=== PATIENT | female | born 1995 | race Caucasian/White ===

== ENCOUNTER 2023-07-31 13:07 | Outpatient (OUT) | payer OTHER, SELFPAY ==
--- NOTE | 2023-07-31 13:17 | XR_ITS ---
The [address] [address] Patient Name: HUY KOVACS MRN: [id number] date: 1995 Sex: F Assigned Patient Location: [facility] Current Patient Location: RAD Accession/Order Number: [id number] Exam Date: 07/31/2023 13:25 Report Date: 07/31/2023 13:55 At the request of: EARLINE CHEN Procedure: XR ribs LT min 3V w CXR1V EXAMINATION: XR ribs LT min 3V w CXR1V HISTORY: Left Rib Pain COMPARISON: No relevant comparison available. FINDINGS: LUNGS: No significant pulmonary parenchymal abnormalities. PLEURA: No pneumothorax, effusion, or pleural thickening. MEDIASTINUM: No visible mass or adenopathy. CARDIAC: No cardiomegaly or cardiac silhouette abnormality. RIBS: Hardware along the left posterior and lateral 10th rib with what appears to be segmental resection. No acute rib fracture. OTHER: Thoracolumbar decompression and transpedicular fusion with interbody strut at L1 XR/XR ribs LT min 3V w CXR1V IMPRESSION: Clear lungs No acute rib fracture Electronically authenticated by: STEVEN SOARES Date: 07/31/2023 13:55
== END 2023-07-31 13:08 | disposition home or self-care (01) ==
LOC: RAD 13:11
PROVIDERS: PCP Nurse Practitioner; Visit Provider Nurse Practitioner
DX: R07.81 Pleurodynia (principal)
CPT/HCPCS: 71101

== ENCOUNTER 2023-12-04 10:00 | Outpatient (OUT) | payer OTHER, SELFPAY | END 2023-12-04 10:01 | disposition home or self-care (01) | LOC: SLEEP 12-05 10:25 | PROVIDERS: PCP Nurse Practitioner; Visit Provider Nurse Practitioner | DX: G47.33 Obstructive sleep apnea (adult) (pediatric) (principal) | CPT/HCPCS: 95806 ==

== ENCOUNTER 2023-12-26 19:58 | Outpatient (OUT) | payer OTHER, SELFPAY ==
--- OUTSIDE RECORDS SUMMARY | 2023-12-26 20:03 | XMS_ITS | CCD ---
Author Organization [facility] Care Team Providers Care Olive Brine Tester Name Role Phone [place], Timoteo Unavailable Unavailable Damian, Timoteo Unavailable Unavailable [place], Timoteo Unavailable Unavailable LAUTZENHEISER, WENDY Unavailable Unavailabl e LAUTZENHEISER, WENDY Unavailable Unavailabl e STEVEN HUNT Unavailable Unavailable LAUTZENHEISER, WENDY Unavailable Unavailabl e LAUTZENHEISER, WENDY Unavailable Unavailabl e CALEB, DONNELL M Unavailable Unavailable CALEB, DONNELL M Unavailable Unavailable CALEB, DONNELL M Unavailable Unavailable LAUTZENHEISER, WENDY Unavailable Unavailabl e SELVON, [facility] Unavailable Unavailable SELVON, [facility] Unavailable Unavailable SELVON, [facility] Unavailable Unavailable LAUTZENHEISER, WENDY Unavailable Unavailabl e LAUTZENHEISER, WENDY Unavailable Unavailabl e NELSON ROY Unavailable Unavailable LAUTZENHEISER, WENDY Unavailable Unavailabl e LAUTZENHEISER, WENDY Unavailable Unavailabl e LAUTZENHEISER, WENDY Unavailable Unavailabl e RAHMON, ROMAN Unavailable Unavailable RAHMON, ROMAN Unavailable Unavailable LAUTZENHEISER, WENDY Unavailable Unavailabl e [place], Timoteo Unavailable Unavailable Damian, Timoteo Unavailable Unavailable LAUTZENHEISER, WENDY Unavailable Unavailabl e [place], Timoteo Unavailable Unavailable CHILCOTE, DAR L Unavailable Unavailable CHILCOTE, DAR L Unavailable Unavailable LAUTZENHEISER, WENDY Unavailable Unavailabl e Lautzenheiser, Wendy E Unavailable [phone] Jocelyn Bowen CNM Unavailable Unavailable None Unavailable Unavailable Rao, Audrey J Unavailable Unavailable Lautzenheiser, Wendy Unavailable Unavailabl e Rao, Audrey J Unavailable Unavailable Lautzenheiser, Wendy Unavailable Unavailabl e Rao, Audrey J Unavailable Unavailable Lautzenheiser, Wendy Unavailable Unavailabl e Rao, Audrey J Unavailable Unavailable None Unavailable Unavailable Rao, Audrey J Unavailable Unavailable Gabriele Wendy Unavailable Unavailabl e Rao, Audrey J Unavailable Unavailable None Unavailable Unavailable Mercedes, Susannah Barnes Unavailable Unavailable Wendy Suazo Unavailable Unavailabl e Rao, Audrey J Unavailable Unavailable Gabriele Wendy Unavailable Unavailabl e Rao, Audrey J Unavailable Unavailable Gabriele Wnedy Unavailable Unavailabl e Rao, Audrey J Unavailable Unavailable Potmagyst CNM, Lenora Jimenez Unavailable Unavailabl e None Unavailable Unavailable Bowen CNM, Jocelyn D Unavailable Unavailable None Unavailable Unavailable Wendy Suazo Primary Care Provider BASHIR BENITEZ Attending Unavailabl e WENDY SUAZO Primary Care Unavailabl e BASHIR BENITEZ Attending Unavailabl e WENDY SUAZO Primary Care Unavailabl e BASHIR BENITEZ Attending Unavailabl e MATHEW OTT F Referring Unavailable WENDY SUAZO Primary Care Unavailabl e Wendy Suazo Primary Care Provider Yaneli DENG Primary Care Physician Wendy Suazo MD Primary Care Provider TETE GUSTAFSON Attending Unavailable TETE GUSTAFSON Admitting Unavailable WENDY SUAZO Primary Care Unavaila ble SYSTEM, PROVIDER NOT IN Referring Unavaila ble WENDY SUAZO Primary Care Unavaila ble LEVI VERA Attending Unavailable Unavailable Primary Care Provider Unavailabl e Unavailable Primary Care Provider Unavailabl e ANDREW ., DR HERNANDEZ Attending Unavailable REQUEST, DR PACHECO LISTED Primary Care Unavaila ble ANDREW ., DR HERNANDEZ Admitting Unavailable REQUEST, NONE LISTED Primary Care Unavaila ble MARY CARMEN HORTON Admitting Unavailable MARY CARMEN HORTON Consulting Unavailable MAR YCARMEN HORTON Attending Unavailable ANDREW ., DR HERNANDEZ Consulting Unavailable ANDREW ., DR HERNANDEZ Attending Unavailable YANELI DENG Primary Care Unavailable ANDREW ., DR HERNANDEZ Admitting Unavailable RiyaPrabhu Unavailable [facility], Yaneli Primary Care Provider Unava ilable HARTMANN, YANELI Primary Care Unavailable AHAMMAD, GETACHEW Referring Unavailable HARTMANN, YANELI Primary Care Unavailable AHAMMAD, GETACHEW Referring Unavailable HARTMANN, YANELI Primary Care Unavailable AHAMMAD, GETACHEW Referring Unavailable HARTMANN, YANELI Primary Care Unavailable AHAMMAD, GETACHEW Referring Unavailable HARTMANN, YANELI Primary Care Unavailable ALTAF DANIELS Consulting Unavailable AHAMMAD, GETACHEW Admitting Unavailable AHAMMAD, GETACHEW Attending Unavailable YEHUDA OROURKE Consulting Unavailable AFANEH, FATOU MEIER Consulting Unavail able HARTMANN, YANELI Primary Care Unavailable AHAMMAD, GETACHEW Referring Unavailable Gustavo DIGITAL ANALYTICS MANAGER.WELT BUTTER HAND, Earline Moran Unavailable [phone] ARPAN CUELLO Referring Unavailable KHUSHBOO, ARPAN Referring Unavailable KHUSHBOO, ARPAN Referring Unavailable Donny Hernandez Attending Unavailab le Donny Hernandez Admitting Unavailab le NO FAMILY, PHYSICIAN Primary Care Unavailable KHUSHBOO, ARPAN Referring Unavailable TANGELA PAULA Attending Unavailable KHUSHBOO, ARPAN Attending Unavailable GUSTAVOEARLINE L Referring Unavailable HARTMANN, YANELI Primary Care Unavailable JACKS, DEB W Referring Unavailable HARTMANN, YANELI Primary Care Unavailable JACKS, DEB W Referring Unavailable HARTMANN, YANELI Primary Care Unavailable JACKS, DEB W Referring Unavailable HARTMANN, YANELI Primary Care Unavailable JACKS, DEB W Referring Unavailable HARTMANN, YANELI Primary Care Unavailable JACKS, DEB W Referring Unavailable HARTMANN, YANELI Primary Care Unavailable JACKS, DEB W Referring Unavailable HARTMANN, YANELI Primary Care Unavailable JACKS, DEB W Referring Unavailable HARTMANN, YANELI Primary Care Unavailable JACKS, DEB W Referring Unavailable HARTMANN, YANELI Primary Care Unavailable JACKS, DEB W Referring Unavailable HARTMANN, YANELI Primary Care Unavailable JACKS, DEB W Referring Unavailable HARTMANN, YANELI Primary Care Unavailable JACKS, DEB W Referring Unavailable HARTMANN, YANELI Primary Care Unavailable JACKS, DEB W Referring Unavailable HARTMANN, YANELI Primary Care Unavailable JACKS, DEB W Referring Unavailable HARTMANN, YANELI Primary Care Unavailable JACKS, DEB W Referring Unavailable HARTMANN, YANELI Primary Care Unavailable JACKS, DEB W Referring Unavailable HARTMANN, [facility] Primary Care Unavailable JACKS, DEB W Referring Unavailable HARTMANN, [facility] Primary Care Unavailable JACKS, DEB W Referring Unavailable HARTMANN, [facility] Primary Care Unavailable JACKS, DEB W Referring Unavailable HARTMANN, [facility] Primary Care Unavailable JACKS, DEB W Referring Unavailable HARTMANN, [facility] Primary Care Unavailable JACKS, DEB W Referring Unavailable HARTMANN, [facility] Primary Care Unavailable JACKS, DEB W Referring Unavailable HARTMANN, [facility] Primary Care Unavailable JACKS, DEB W Referring Unavailable HARTMANN, [facility] Primary Care Unavailable JACKS, DEB W Referring Unavailable HARTMANN, [facility] Primary Care Unavailable JACKS, DEB W Referring Unavailable HARTMANN, [facility] Primary Care Unavailable JACKS, DEB W Referring Unavailable HARTMANN, [facility] Primary Care Unavailable JACKS, DEB W Referring Unavailable HARTMANN, [facility] Primary Care Unavailable JACKS, DEB W Referring Unavailable HARTMANN, [facility] Primary Care Unavailable JACKS, DEB W Referring Unavailable HARTMANN, [facility] Primary Care Unavailable JACKS, DEB W Referring Unavailable HARTMANN, [facility] Primary Care Unavailable JACKS, DEB W Referring Unavailable HARTMANN, [facility] Primary Care Unavailable JACKS, DEB W Referring Unavailable Gustavo, BLOOD BANK ATTENDANT Earline L Attending Unavailable Gustavo, BLOOD BANK ATTENDANT Earline L Attending Unavailable Gustavo, BLOOD BANK ATTENDANT Earline L Attending Unavailable Gustavo, BLOOD BANK ATTENDANT Earline L Attending Unavailable Gustavo, BLOOD BANK ATTENDANT Earline L Attending Unavailable Gustavo, BLOOD BANK ATTENDANT Earline L Attending Unavailable Gustavo, BLOOD BANK ATTENDANT Earline L Attending Unavailable Gustavo, BLOOD BANK ATTENDANT Earline L Attending Unavailable Gustavo, BLOOD BANK ATTENDANT Earline L Attending Unavailable Gustavo, BLOOD BANK ATTENDANT Earline L Attending Unavailable Gustavo, BLOOD BANK ATTENDANT Earline L Attending Unavailable Allergies Allergy Classification Reported Allergen(s) Allergy Type Date of Onset Reaction(s) Facility Adhesive Tape (2 sources) Silicone adhesive tape Substance Allergy 05-06-20 23 Itching, Rash [facility] Antihistamines (2 sources) hydrOXYzine Drug Allergy 12-15-19 18 Rash [facility] DULoxetine (4 sources) DULoxetine Drug Allergy 07-21-19 23 Other (See Comments) [facility] (16 sources) hydrOXYzine; Translations: [hydroxyzine] Drug Allergy 12-15-19 18 Rash [facility] Work Phone: (9 sources) propofol; Translations: [propofol] Drug Allergy 12-20-19 18 Anaphylaxis [facility] Work Phone: (1 source) Anesthetics - [place] Type; Translations: [Anesthetics - [place] Type] Propensity to adverse reactions (disorder) 05-31-20 18 [facility] Repository (1 source) Anesthetics - [place] Type- Parabens; Translations: [Anesthetics - [place] Type- Parabens] Propensity to adverse reactions (disorder) 05-31-20 18 [facility] Repository (6 sources) Anesthetics, Amide; Translations: [Anesthetics, Amide] Propensity to adverse reactions (disorder) 04-09-20 18 [facility] Repository (6 sources) Anesthetics, [place]; Translations: [Anesthetics, [place]] Propensity to adverse reactions (disorder) 04-09-20 18 [facility] Repository (6 sources) Anesthetics, Halogenated; Translations: [Anesthetics, Halogenated] Propensity to adverse reactions (disorder) 04-09-20 18 [facility] Repository (5 sources) Hypochlorite Drug Allergy 05-04-20 18 Hives [facility] (19 sources) Hydroxyquinolines Propensity to adverse reactions to drug 08-23-19 19 Other (See Comments) [facility] (2 sources) Acetaminophen Drug Allergy 08-23-19 19 [place] Ibuprofen Drug Allergy 08-23-19 19 [place] ([place] Other Propensity to adverse reactions 08-23-19 19 [place] ([place] sources) DULoxetine Drug Allergy 07-21-19 23 Other (See Comments) [facility] (8 sources) Silicone adhesive tape Propensity to adverse reactions to drug 05-06-20 23 Itching, Rash [facility] Dexetra (8 sources) DULoxetine; Translations: [DULOXETINE] Drug Allergy 09-07-19 24 Other: See Comments [facility] Dexetra (1 source) DULoxetine; Translations: [Cymbalta] Drug Allergy [facility] Repository (1 source) Hypochlorite; Translations: [sodium hypochlorite topical] Drug Allergy 05-03-20 [facility] Repository (1 source) No Known Medication Allergies; Translations: [No Known Medication Allergies] Propensity to adverse reactions (disorder) [facility] Repository NEGATED: Highlighted row has been ruled out! (11 sources) Other Propensity to adverse reactions 08-23-19 19 [facility] [employer] Phone: Medications Current Medications Medication Drug Class(es) Dates Sig (Normalized) Sig (Original) acetaminophen 500 mg oral tablet (16 sources) Start: 07-01-2022 acetaminophen (TYLENOL) tablet 1,000 mg Start: 10-26-2019 acetaminophen (TYLENOL) tablet 650 mg Start: 10-26-2019 End: 07-05-2022 take 2 tablets by mouth every six hours as needed for pain acetaminophen (TYLENOL) 325 MG tablet Take 2 tablets by mouth every 6 hours as needed for Pain 40 tablet 0 10/26/2019 07/05/2022 Discontinued (Stop Taking at Discharge) Baclofen (16 sources) gamma-Aminobutyric Acid-ergic Agonist Start: 11-17-2023 End: 08-13-2024 take 1 tablet by mouth three times daily baclofen 15 mg tablet Take 1 tablet by mouth three times a day. 270 tablet 0 11/17/2023 08/13/2024 Active Start: 10-01-2022 End: 11-17-2023 baclofen (LIORESAL) 20 MG ta blet 1 tab TID 0 10/01/2022 Active Start: 07-04-2022 End: 08-04-2022 take 1 tablet by mouth three times daily baclofen (LIORESAL) 10 MG tablet Take 1 tablet by mouth 3 times daily 90 tablet 0 07/05/2022 08/04/2022 Active benzonatate 100 mg oral capsule (7 sources) Non-narcotic Antitussive Start: 07-16-2018 take 1 capsule by mouth three times daily as needed benzonatate (TESSALON PERLES) 100 MG Cap capsule Take 1 capsule by mouth 3 times daily as needed. 20 capsule 0 07/16/2018 Active bisacodyl 10 mg rectal suppository (2 sources) Stimulant Laxative Start: 06-27-2022 End: 08-05-2022 bisacodyl (DULCOLAX) [address] 1 suppository rectally daily 30 suppository 0 07/06/2022 08/05/2022 Active busPIRone hydrochloride 5 mg oral tablet (20 sources) Start: 10-01-2022 take 3 tablets by mouth three times daily busPIRone (BUSPAR) 5 MG tablet Take 3 tablets by mouth 3 times daily 3 times a day 15 mg 0 10/01/2022 Active Start: 10-01-2022 busPIRone (BUS PAR) 5 MG tablet take 2 tablets by mo uth twice daily busPIRone (BUSPAR) 15 mg tablet Take 30 mg by mouth two times a day. 0 Active End: 10-26-2019 take 1 tablet by mouth twice daily busPIRone (BUSPAR) 7.5 MG tablet Take 7.5 mg by mouth 2 times daily 0 10/26/2019 Discontinued (Alternate therapy) End: 06-10-2019 take 7.5 mg by mouth two times weekly BusPIRone HCl (BUSPAR PO) Take 7.5 mg by mouth twice a week. 0 06/10/2019 Discontinued diclofenac sodium 0.01 mg/mg topical gel (4 sources) Nonsteroidal Anti-inflammatory Drug Start: 12-30-2022 diclofenac sodium (VOLTAREN) 1 % GEL docusate sodium 50 mg / sennosides, correction 8.6 mg oral tablet (6 sources) Start: 07-06-2022 take 2 tablets by mouth once daily sennosides-docus ate sodium (SENOKOT-S) 8.6-50 MG tablet Take 2 tablets by mouth daily 60 tablet 0 07/06/2022 Active Start: 06-27-2022 sennosides-doc usate sodium (SENOKOT-S) 8.6-50 MG tablet 2 tablet 0.3 ml enoxaparin sodium 100 mg/ml prefilled syringe (2 sources) Low Molecular Weight Heparin Start: 07-05-2022 End: 08-04-2022 enoxaparin Sodium (LOVENOX) 30 MG/0.3ML injection Inject 0.3 mLs into the skin 2 times daily 18 mL 0 07/05/2022 08/04/2022 Active Start: 06-27-2022 enoxaparin Sod ium (LOVENOX) injection 30 mg escitalopram 20 mg oral tablet (6 sources) Serotonin Reuptake Inhibitor Start: 10-01-2022 escitalopram (LEXAPR O) 20 MG tablet Start: 06-26-2022 End: 06-27-2022 take 1 tablet by mouth once daily escitalopram (LEXAPRO) 10 MG tablet Take 1 tablet by mouth daily 30 tablet 0 07/06/2022 Active Start: 02-03-2020 take 1 mg by mouth once daily escitalopram 10 mg Tab mg tab(s), Oral, Daily, Refills(s) 0 Start Date: 02/03/20 Status: Ordered etonogestrel 68 mg drug implant (7 sources) Progestin Etonogestrel (NEXPLANON) 68 MG SC implant 68 mg by Implant route once. 0 Active gabapentin 300 mg oral capsule (9 sources) Anti-epileptic Agent Start: End: take 1 capsule by mouth three times daily gabapentin (NEURONTIN) 300 MG capsule Take 1 capsule by mouth 3 times daily for 10 days. 30 capsule 0 07/26/2022 08/05/2022 Active Start: 07-16-2022 End: 07-26-2022 take 2 capsules by mouth three times daily gabapentin (NEURONTIN) 300 MG capsule Take 2 capsules by mouth 3 times daily for 10 days. 60 capsule 0 07/16/2022 07/26/2022 Active Start: 07-08-2022 take 1 capsule by [facility] every eight hours gabapentin (NEURONTIN) capsule 900 mg Start: 07-05-2022 End: 07-15-2022 take 3 capsules by mouth every eight hours gabapentin (NEURONTIN) 400 MG capsule Take 3 capsules by mouth every 8 (eight) hours for 10 days. 90 capsule 0 07/05/2022 07/15/2022 Active Start: 07-04-2022 End: 07-08-2022 take 1 capsule by mouth every eight hours gabapentin (NEURONTIN) capsule 1,200 mg Start: 06-30-2022 End: 07-04-2022 take 1 capsule by mouth every eight hours gabapentin (NEURONTIN) capsule 900 mg Start: 06-28-2022 End: 06-30-2022 take 1 capsule by mouth every eight hours gabapentin (NEURONTIN) capsule 600 mg Start: 06-27-2022 End: 06-28-2022 take 1 capsule by mouth every eight hours 300 mg, Oral, Every 8 hours, First dose (after last modification) on Mon06/27/22 at 0930, Until Discontinued Start: 06-26-2022 End: 06-27-2022 take 1 capsule by mouth every eight hours gabapentin (NEURONTIN) capsule 300 mg 12 hr guaiFENesin 600 mg extended release oral tablet (7 sources) Start: 07-16-2018 take 1 tablet by mouth twice daily guaiFENesin 600 MG Tab SR 12 HR tablet SR Take 1 tablet by mouth 2 times daily. 20 tablet 0 07/16/2018 Active Handicap Placard MISC (11 sources) Start: 01-13-[address] MISC by Does not apply route 1 each 0 01/13/2023 Active ibuprofen 800 mg oral tablet (20 sources) Nonsteroidal Anti-inflammatory Drug Start: 05-22-2023 take 1 tablet by mouth every eight hours as needed for pain ibuprofen (ADVIL;MOTRIN) 800 MG tablet Take 1 tablet by mouth every 8 hours as needed for Pain 21 tablet 0 05/22/2023 Active Start: 07-01-2022 End: 07-10-2022 take 1 tablet by mouth every four hours ibuprofen (ADVIL;MOTRIN) 400 MG tablet Take 1 tablet by mouth every 4 hours for 5 days 30 tablet 0 07/05/2022 07/10/2022 Active Start: 04-14-2020 take 1 tablet by renee three times daily as needed for pain ibuprofen 200 mg Tab 200 mg = 1 tab(s), Oral, TID, PRN as needed for pain, Refills(s) 0 Start Date: 04/14/20 Status: Ordered Start: 10-26-2019 ibuprofen (ADV IL;MOTRIN) tablet 400 mg Start: 10-26-2019 End: 07-05-2022 take 1 tablet by mouth every six hours as needed for pain ibuprofen (ADVIL;MOTRIN) 600 MG tablet Take 1 tablet by mouth every 6 hours as needed for Pain 30 tablet 0 10/26/2019 07/05/2022 Discontinued (Stop Taking at Discharge) Start: 06-10-2019 End: 06-10-2019 ibuprofen (MOTRIN) tablet 80 0 mg End: 06-10-2019 take 1 tablet by mouth every six hours as needed ibuprofen 600 MG Tab tablet Take 600 mg by mouth every 6 hours as needed. 0 06/10/2019 Discontinued lamoTRIgine 25 mg oral tablet (20 sources) Mood Stabilizer, Anti-epileptic Agent Start: 07-05-2022 take 3 tablets by mouth at bedtime lamoTRIgine (LAMICTAL) 25 MG tablet Take 3 tablets by mouth in the morning and at bedtime 30 tablet 0 07/05/2022 Active Start: 06-27-2022 lamoTRIgine (L AMICTAL) tablet 75 mg Start: 06-27-2022 End: 06-27-2022 take 100 mg by mouth twice daily 100 mg, Oral, 2 times daily, First dose (after last modification) on 06/27/22 at 0900, Until Discontinued Start: 06-26-2022 End: 06-26-2022 take 75 mg by mouth twice daily 75 mg, Oral, 2 times d aily, First dose on 06/26/22 at 0900, Until Discontinued Start: 07-21-2021 Lamictal Oral, BID, Refills(s) 0 Start Date: 07/21/21 Status: Ordered End: 07-05-2022 take 2 tablets by mouth once daily lamoTRIgine (LAMICTAL) 25 MG tablet Take 50 mg by mouth daily 0 07/05/2022 Discontinued (Stop Taking at Discharge) melatonin 5 mg oral tablet (20 sources) Start: 06-30-2022 take 1 tablet by mouth once daily melatonin 5 MG TABS tablet Take 1 tablet by mouth nightly 30 tablet 0 07/05/2022 Active Start: 06-28-2022 End: 06-30-2022 melatonin tablet 10 mg Melatonin 5 MG T ab Dispersible tablet Take 5 mg by mouth As directed as needed. 0 Active End: 10-26-2019 take 1 mg by mouth once daily as needed melatonin 3 MG TABS tablet Take 1 mg by mouth nightly as needed 0 10/26/2019 Discontinued (Patient Choice) 24 hr nicotine 0.875 mg/hr transdermal system (3 sources) Cholinergic Nicotinic Agonist Start: 07-06-2022 apply 1 dose transdermal route once daily nicotine (NICODERM CQ) 21 MG/24HR Place 1 patch onto the skin daily 30 patch 0 07/06/2022 Active Start: 07-04-2022 nicotine (DORCAS DERM CQ) 21 MG/24HR 1 patch Start: 10-22-2018 End: 10-23-2018 nicotine (NICODERM CQ) 21 MG /24HR patch 1 patch ondansetron 4 mg disintegrating oral tablet (12 sources) Serotonin-3 Receptor Antagonist Start: 03-08-2023 ondansetron (ZOFRAN-ODT) 4 MG disintegrating tablet DISSOLVE 1 TABLET ON THE TONGUE DAILY NEEDED FOR NAUSEA AND VOMITING 45 tablet 0 03/08/2023 Active Start: 12-20-2017 ondansetron (Z OFRAN) 4 MG tablet 24 hr oxybutynin chloride 5 mg extended release oral tablet (14 sources) Cholinergic Muscarinic Antagonist Start: 02-03-2023 take 1 tablet by mouth once daily oxybutynin (DITROPAN XL) 5 MG extended release tablet Take 1 tablet by mouth daily 30 tablet 3 02/03/2023 Active Start: 10-01-2022 oxybutynin (DI TROPAN) 5 MG tablet take 1 tablet by renee th once daily oxybutynin ER (DITROPAN XL) 10 mg 24 hr tablet Take 10 mg by mouth once daily. 0 Active oxyCODONE hydrochloride 5 mg oral tablet (9 sources) Opioid Agonist Start: 03-20-2023 End: 03-27-2023 take 1 tablet by mouth every six hours as needed for pain oxyCODONE (ROXICODONE) 5 MG immediate release tablet Indications: Cauda equina compression (HCC) , Pseudoarthrosis of lumbar spine Take 1 tablet by mouth every 6 hours as needed for Pain for up to 7 days. Intended supply: 7 days. Take lowest dose possible to manage pain Max Daily Amount: 20 mg 12 tablet 0 03/20/2023 03/27/2023 Active Start: 07-05-2022 End: 07-12-2022 take 1 tablet by mouth every six hours as needed for pain oxyCODONE (OXY-IR) 10 MG immediate release tablet Indications: Closed fracture of twelfth thoracic vertebra, unspecified fracture morphology, initial encounter (HCC) Take 1 tablet by mouth every 6 hours as needed for Pain for up to 7 days. Max Daily Amount: 40 mg 28 tablet 0 07/05/2022 07/12/2022 Active Start: 07-02-2022 End: 07-02-2022 oxyCODONE (ROXICODONE) immed iate release tablet 5 mg Start: 06-30-2022 End: 07-08-2022 oxyCODONE (ROXICODONE) immed iate release tablet 10 mg Start: 06-27-2022 End: 06-27-2022 oxyCODONE (ROXICODONE) immed iate release tablet 10 mg Start: 06-26-2022 End: 06-30-2022 oxyCODONE (ROXICODONE) immed iate release tablet 5 mg pantoprazole 40 mg delayed release oral tablet (10 sources) Proton Pump Inhibitor Start: 05-23-2023 take 1 tablet by mouth once daily before breakfast pantoprazole (PROTONIX) 40 MG tablet Take 1 tablet by mouth every morning (before breakfast) 30 tablet 3 05/23/2023 Active Pnv Plus Multivitamin 27-1 Mg Po Tabs (2 sources) Start: 11-22-2017 take 1 tablet by mouth once daily Vit-Fe Fumarate-FA (PNV PLUS MULTIVITAMIN) 27-1 MG Tab Take 1 tablet by mouth daily. 3 11/22/2017 Active polyethylene glycol 3350 72056 mg powder for oral solution (6 sources) Osmotic Laxative Start: 06-26-2022 End: 08-05-2022 polyethylene glycol (GLYCOLAX) 17 GM/SCOOP powder Take by mouth daily 0 07/28/2022 Active pregabalin 300 mg oral capsule (9 sources) take 1 capsule by mouth twice daily pregabalin (LYRICA) 300 MG capsule Take 1 capsule by mouth 2 times daily. Max Daily Amount: 600 mg 0 Active 28-0.8 Mg Po Tabs (2 sources) take 1 tablet by mouth once daily 28-0.8 MG Tab tablet Take 1 tablet by mouth daily. Active QUEtiapine 25 mg oral tablet (17 sources) Atypical Antipsychotic Start: 12-01-2022 QUEtiapine (SEROQUEL) 25 MG tablet Start: 07-05-2022 take 1 tablet by renee th twice daily QUEtiapine (SEROQUEL) 50 MG tablet Take 1 tablet by mouth 2 times daily 60 tablet 0 07/05/2022 Active Start: 07-01-2022 QUEtiapine (SE ROQUEL) tablet 50 mg take 1 tablet by renee th once daily at bedtime QUEtiapine (SEROQUEL) 100 mg tablet Take 100 mg by mouth daily at bedtime. 0 Active QUEtiapine Fumar ate (SEROQUEL PO) Take by mouth. 0 Active sertraline 25 mg oral tablet (2 sources) Serotonin Reuptake Inhibitor take 1 tablet by mouth once daily sertraline (ZOLOFT) 25 mg tablet Take 25 mg by mouth once daily. 0 Active sodium chloride 1000 mg oral tablet (5 sources) Start: 07-07-2022 sodium chloride tablet 1 g Start: 06-27-2022 End: 06-27-2022 0.9 % sodium chloride infusi on Start: 06-26-2022 End: 07-06-2022 sodium chloride flush 0.9 % injection 5-40 mL Start: 06-26-2022 End: 06-26-2022 Sodium chloride 0.9% IV solu tion 500 mL tiZANidine 2 mg oral tablet (3 sources) Central alpha-2 Adrenergic Agonist Start: 11-17-2023 End: 02-15-2024 take 1 mg by mouth every six hours as needed tiZANidine (ZANAFLEX) 2 mg tablet Take 0.5 tablets by mouth every 6 hours as needed. 180 tablet 0 11/17/2023 02/15/2024 Active take 1 tablet by renee th every six hours as needed tiZANidine (ZANAFLEX) 4 MG tablet Take 1 tablet by mouth every 6 hours as needed 0 Active matrix delivery 24 hr traMADol hydrochloride 100 mg extended release oral tablet (4 sources) Opioid Agonist take 100 mg by mouth once daily traMADol 100 mg TM24 Take 100 mg by mouth once daily. 0 Active take 1 tablet by mouth twice hussein ly traMADol 25 mg tablet Take 25 mg by mouth two times a day. 0 Active Completed/Discontinued Medications Medication Drug Class(es) Dates Sig (Normalized) Sig (Original) calcium chloride 0.0014 meq/ml / potassium chloride 0.004 meq/ml / sodium chloride 0.103 meq/ml / sodium lactate 0.028 meq/ml injectable solution (1 source) Start: 06-27-2022 End: 06-27-2022 lactated ringers bolus cyclobenzaprine hydrochloride 10 mg oral tablet (2 sources) Muscle Relaxant Start: 06-27-2022 End: 06-30-2022 cyclobenzaprine (FLEXERIL) tablet 10 mg diazePAM 5 mg oral tablet (1 source) Benzodiazepine Start: 06-30-2022 End: 07-02-2022 diazePAM (VALIUM) tablet 5 mg 1 ml diphenhydrAMINE hydrochloride 50 mg/ml cartridge (5 sources) Histamine-1 Receptor Antagonist Start: 06-26-2022 End: 06-26-2022 diphenhydrAMINE (BENADRYL) injection 25 mg take 1 tablet by renee th every six hours as needed diphenhydrAMINE (BENADRYL) 25 MG tablet Take 1 tablet by mouth every 6 hours as needed for Itching 0 Active DULoxetine 30 mg delayed release oral capsule (2 sources) Serotonin and Norepinephrine Reuptake Inhibitor Start: 10-31-2018 End: 10-26-2019 DULoxetine (CYMBALTA) 30 MG extended release capsule Take 1 cap x 7 days then 2 caps per day ( every 2 pm) 60 capsule 0 10/31/2018 10/26/2019 Discontinued (Alternate therapy) DULoxetine HCl ( CYMBALTA PO) Take 30 mg by mouth 0 Active famotidine 20 mg oral tablet (6 sources) Histamine-2 Receptor Antagonist End: 06-10-2019 take 1 tablet by mouth twice daily faMOTIdine 20 MG Tab tablet Take 20 mg by mouth 2 times daily. 0 06/10/2019 Discontinued 2 ml fentaNYL 0.05 mg/ml injection (9 sources) Opioid Agonist Start: 07-07-2022 End: 07-07-2022 fentaNYL (SUBLIMAZE) injection 25 mcg Start: 06-26-2022 End: 07-02-2022 fentaNYL (SUBLIMAZE) injecti on 50 mcg folic acid 0.4 mg oral tablet (7 sources) End: 06-10-2019 take 1 tablet by mouth once daily Folic Acid 400 MCG Tab Take 400 mcg by mouth daily. 0 06/10/2019 Discontinued 1 ml HYDROmorphone hydrochloride 1 mg/ml cartridge (2 sources) Opioid Agonist Start: 07-08-2022 End: 07-08-2022 HYDROmorphone (DILAUDID) injection 0.5 mg Start: 06-26-2022 End: 06-26-2022 HYDROmorphone (DILAUDID) inj ection 1 mg iopamidol (ISOVUE-370) 76 % injection 75 mL (1 source) Start: 06-26-2022 End: 06-26-2022 iopamidol (ISOVUE-370) 76 % injection 75 mL ketamine 500 mg in 0.9% sodium chloride 250 ml infusion (1 source) Start: 06-28-2022 End: 06-30-2022 ketamine 500 mg in 0.9% sodium chloride 250 ml infusion 2 ml ketorolac tromethamine 30 mg/ml cartridge (1 source) Nonsteroidal Anti-inflammatory Drug, Cyclooxygenase Inhibitor Start: 06-26-2022 End: 06-26-2022 ketorolac (TORADOL) injection 60 mg labetalol hydrochloride 100 mg oral tablet (6 sources) beta-Adrenergic Osito End: 06-10-2019 take 1 tablet by mouth twice daily labetalol 100 MG Tab tablet Take 100 mg by mouth 2 times daily. 0 06/10/2019 Discontinued lithium carbonate 600 mg oral capsule (13 sources) End: 10-26-2019 lithium 600 MG capsule Take 600 mg by mouth 0 10/26/2019 Discontinued (Patient Choice) End: 06-10-2019 take 2 tablets by mouth once daily lithium 300 MG Cap Take 300 mg by mouth daily. Taking two tablets daily. 0 06/10/2019 Discontinued 1 ml LORazepam 2 mg/ml injection (1 source) Benzodiazepine Start: 06-26-2022 End: 06-26-2022 LORazepam (ATIVAN) injection 1 mg magnesium sulfate 3,000 mg in dextrose 5 % 100 mL IVPB (1 source) Start: 06-28-2022 End: 06-28-2022 magnesium sulfate 3,000 mg in dextrose 5 % 100 mL IVPB meloxicam 15 mg oral tablet (1 source) Nonsteroidal Anti-inflammatory Drug Start: 08-23-2018 End: 10-26-2019 take 1 tablet by mouth once daily as needed for pain meloxicam (MOBIC) 15 MG tablet Take 1 tablet by mouth daily as needed for Pain 30 tablet 1 08/23/2018 10/26/2019 Discontinued (Therapy completed) methocarbamol 750 mg oral tablet (2 sources) Muscle Relaxant Start: 07-02-2022 End: 07-03-2022 methocarbamol (ROBAXIN) tablet 750 mg Start: 06-26-2022 End: 06-27-2022 methocarbamol (ROBAXIN) tabl et 750 mg 1 ml morphine sulfate 4 mg/ml cartridge (1 source) Opioid Agonist Start: 06-26-2022 End: 06-26-2022 morphine injection 2 mg Start: 06-26-2022 End: 06-26-2022 morphine injection 2 mg penicillin v potassium 250 m g oral tablet (3 sources) Start: 10-26-2019 End: 10-26-2019 penicillin v potassium (VEET ID) tablet 500 mg Start: 10-26-2019 End: 11-02-2019 take 1 tablet by mouth four times daily penicillin v potassium (VEETID) 500 MG tablet Take 1 tablet by mouth 4 times daily for 7 days 28 tablet 0 10/26/2019 11/02/2019 Active microencapsulated potassium chloride 20 meq extended release oral tablet (1 source) Start: 06-28-2022 End: 06-28-2022 potassium chloride (KLOR-CON M) extended release tablet 20 mEq 28-0.8 MG Tab tablet (5 sources) End: 06-10-2019 take 1 tablet by mouth once daily 28-0.8 MG Tab tablet Take 1 tablet by mouth daily. 0 06/10/2019 Discontinued take 1 tablet by mouth once annie y 28-0.8 MG Tab tablet Take 1 tablet by mouth daily. 0 Active Vit-Fe Fumarate-FA (PNV PLUS MULTIVITAMIN) 27-1 MG Tab (5 sources) Start: 11-22-2017 End: 06-10-2019 take 1 tablet by mouth once daily Vit-Fe Fumarate-FA (PNV PLUS MULTIVITAMIN) 27-1 MG Tab Take 1 tablet by mouth daily. 3 11/22/2017 06/10/2019 Discontinued Start: 11-22-2017 take 1 tablet by renee th once daily Vit-Fe Fumarate-FA (PNV PLUS MULTIVITAMIN) 27-1 MG Tab Take 1 tablet by mouth daily. 3 11/22/2017 Active risperiDONE 1 mg oral tablet (3 sources) Atypical Antipsychotic End: 07-05-2022 take 1 tablet by mouth once daily risperiDONE (RISPERDAL) 1 MG tablet Take 1 mg by mouth daily 0 07/05/2022 Discontinued (Stop Taking at Discharge) Problems Active Problems Problem Classification Problem Date Documented Da te Episodic/Chronic Diseases of mouth; excluding dental (1 source) Painful mouth; Translations: [Chronic dental pain] Episodic Female infertility (4 sources) Female infertility, unspecified; Translations: [FEMALE INFERTILITY UNSPECIFIED] Onset: 01-12-2022 Chronic Hemorrhage during ; abruptio placenta; placenta previa (1 source) Hemorrhage in early , unspecified; Translations: [Hemorrhage in early , unspecified] Onset: 11-15-2017 Episodic Hepatitis (3 sources) Chronic viral hepatitis C; Translations: [Chronic hepatitis C] Onset: 09-17-2021 Chronic Hepatitis (2 sources) Viral hepatitis C 02-03-2020 Episodic Malaise and fatigue (6 sources) Asthenia; Translations: [Weakness] Onset: 2023 2023 Episodic Menstrual disorders (4 sources) Amenorrhea, unspecified; Translations: [Menometrorrhagia] Onset: 02-23-2017 Chronic Mood disorders (1 source) Severe recurrent major depression without psychotic features; Translations: [Severe episode of recurrent major depressive disorder, without psychotic features] Chronic Nausea and vomiting (2 sources) Nausea; Translations: [Nausea] Onset: 10-24-2017 Episodic Other complications of (2 sources) Mild hyperemesis gravidarum; Translations: [Vomiting of , unspecified] Onset: 10-24-2017 Episodic Other congenital anomalies (3 sources) Other congenital malformations of spine, not associated with scoliosis; Translations: [Other congenital malformations of spine, not associated with scoliosis] Onset: 06-28-2023 Chronic Other connective tissue disease (1 source) Spasticity; Translations: [Cramp and spasm] 11-20-2023 Episodic Other connective tissue disease (1 source) Cramp and spasm; Translations: [Spasticity] Onset: 11-17-2023 Episodic Other female genital disorders (2 sources) Abnormal uterine and vaginal bleeding, unspecified; Translations: [Abnormal uterine and vaginal bleeding, unspecified] Onset: 11-15-2017 Chronic Other fractures (1 source) Closed fracture lumbar vertebra, wedge ; Translations: [Wedge compression fracture of first lumbar vertebra, initial encounter for closed fracture] Episodic Other fractures (2 sources) Wedge compression fracture of T11-T12 vertebra, initial encounter for closed fracture; Translations: [Wedge compression fracture of T11-T12 vertebra, initial encounter for closed fracture] Onset: 06-26-2022 Episodic Other fractures (3 sources) Unspecified fracture of unspecified lumbar vertebra, subsequent encounter for fracture with nonunion; Translations: [Unspecified fracture of unspecified lumbar vertebra, subsequent encounter for fracture with nonunion] Onset: 06-28-2023 Episodic Other gastrointestinal disorders (1 source) Constipation; Translations: [Constipation, unspecified] 11-21-2023 Episodic Other gastrointestinal disorders (1 source) Constipation, unspecified; Translations: [Constipation, unspecified constipation type] Onset: 11-17-2023 Episodic Other nervous system disorders (1 source) Other chronic pain Onset: 08-23-2018 Chronic Other non-traumatic joint disorders (2 sources) Joint pain 02-03-2020 Episodic Other nutritional; endocrine; and metabolic disorders (4 sources) Obesity, unspecified; Translations: [Obese class II] Onset: 07-16-2018 07-16-2018 Chronic Other nutritional; endocrine; and metabolic disorders (3 sources) Obese class II; Translations: [Obesity, Class II, BMI 35-39.9] Onset: 07-16-2018 07-16-2018 Other upper respiratory infections (1 source) Acute upper respiratory infection; Translations: [Acute upper respiratory infection] Episodic Paralysis (20 sources) Complete paraplegia; Translations: [Paraplegia, complete] Onset: 06-26-2022 Chronic Pathological fracture (2 sources) Pathological fracture; Translations: [Pathological fracture, other site, initial encounter for fracture] Onset: 2023 2023 Episodic Residual codes; unclassified (1 source) Obstructive sleep apnea (adult) (pediatric); Translations: [Obstructive sleep apnea (adult) (pediatric)] Onset: 05-05-2023 Chronic Spinal cord injury (20 sources) Injury of lumbar spinal cord; Translations: [Unspecified injury to L1 level of lumbar spinal cord, initial encounter] Onset: 01-10-2023 01-10-2023 Chronic Spondylosis; intervertebral disc disorders; other back problems (2 sources) Other intervertebral disc displacement, lumbar region; Translations: [Other intervertebral disc degeneration, lumbar region] Onset: 10-19-2017 Chronic Sprains and strains (6 sources) Strain of muscle, fascia and tendon of lower back, initial encounter; Translations: [Strain of muscle, fascia and tendon at neck level, initial encounter] Onset: 10-19-2017 Episodic Substance-related disorders (4 sources) Nicotine dependence, unspecified, uncomplicated; Translations: [Amphetamine abuse, episodic] Onset: 08-15-2017 04-16-2020 Chronic Comment on above: Added secondary to d ocumentation in Social History. Unclassified (2 sources) 9 weeks gestation of ; Translations: [Weeks of gestation of not specified] Onset: 10-24-2017 Unclassified (1 source) Unknown / UNK(Unknown) Onset: 06-30-2017 Unclassified (1 source) Myalgia, other site Onset: 10-18-2018 Unclassified (1 source) Myalgia, unspecified site Onset: 09-06-2018 Unclassified (1 source) Contusion of head; Translations: [Contusion of head, unspecified part of head, initial encounter] Past or Other Problems Problem Classification Problem Date Documented Date Episodic/Chronic Abdominal pain (2 sources) Unspecified abdominal pain; Translations: [Unspecified abdominal pain] Onset: 06-30-2017 Episodic Conditions associated with dizziness or vertigo (3 sources) Dizziness and giddiness; Translations: [Dizziness and giddiness] Onset: 08-15-2017 Episodic Epilepsy; convulsions (8 sources) Seizure; Translations: [Unspecified convulsions] Onset: 06-03-2022 Episodic Fever of unknown origin (1 source) Fever, unspecified; Translations: [Fever, unspecified] Onset: 08-15-2017 Episodic Influenza (1 source) Influenza due to unidentified influenza virus with other respiratory manifestations; Translations: [Flu due to unidentified influenza virus w oth resp manifest] Onset: 08-15-2017 Episodic Nonspecific chest pain (4 sources) Chest pain, unspecified; Translations: [Chest wall pain] Onset: 08-15-2017 02-03-2020 Episodic Other connective tissue disease (11 sources) Neuropathic pain; Translations: [Neuralgia and neuritis, unspecified] Onset: 01-10-2023 01-10-2023 Episodic Other fractures (15 sources) Fracture of twelfth thoracic vertebra; Translations: [Wedge compression fracture of T11-T12 vertebra, initial encounter for closed fracture] Onset: 06-26-2022 Episodic Other fractures (5 sources) Wedge compression fracture of first lumbar vertebra, initial encounter for closed fracture; Translations: [Wedge compression fracture of first lumbar vertebra, initial encounter for closed fracture] Onset: 06-26-2022 Episodic Other fractures (13 sources) Compression fracture of lumbar spine; Translations: [Wedge compression fracture of first lumbar vertebra, initial encounter for closed fracture] Onset: 06-26-2022 Episodic Other fractures (13 sources) Closed fracture lumbar vertebra, burst ; Translations: [Unstable burst fracture of first lumbar vertebra, initial encounter for closed fracture] Onset: 06-26-2022 Episodic Other fractures (1 source) Unstable burst fracture of first lumbar vertebra, initial encounter for closed fracture; Translations: [Unstable burst fracture of first lumbar vertebra, initial encounter for closed fracture] Onset: 07-06-2022 Episodic Other fractures (3 sources) Unspecified fracture of T11-T12 vertebra, subsequent encounter for fracture with routine healing; Translations: [Unspecified fracture of t11-T12 vertebra, subsequent encounter for fracture with routine healing] Onset: 07-06-2022 Episodic Other lower respiratory disease (1 source) Shortness of breath; Translations: [Shortness of breath] Onset: 08-15-2017 Episodic Other nervous system disorders (1 source) Other acute postprocedural pain; Translations: [Other acute postprocedural pain] Onset: 05-05-2023 Episodic Pleurisy; pneumothorax; pulmonary collapse (1 source) Hemothorax; Translations: [Hemothorax] Onset: 05-05-2023 Episodic Spondylosis; intervertebral disc disorders; other back problems (20 sources) Disorder of spinal region; Translations: [Dorsopathy, unspecified] Onset: 05-08-2023 Episodic Substance-related disorders (8 sources) Maternal drug use; Translations: [Drug use complicating , second trimester] Onset: 12-25-2017 12-25-2017 Episodic Suicide and intentional self-inflicted injury (1 source) Suicidal thoughts; Translations: [Suicide ideation] Episodic Unclassified (1 source) SEVERE ABD PAIN Onset: 06-30-2017 Urinary tract infections (1 source) Cystitis, unspecified without hematuria; Translations: [Cystitis, unspecified without hematuria] Onset: 06-30-2017 Episodic Viral infection (8 sources) Herpes simplex type 2 infection; Translations: [Other specified abnormal immunological findings in serum] Onset: 12-25-2017 12-25-2017 Episodic Results Test Name Value Interpretation Reference Range Facility Pre-Certification Formon Pre-Certification Form [id number] TIFF Normal [facility] Physician Orderon 12-05-2023 Physician Order [id number]#1.00 TIFF Normal [facility] Sleep Studieson 12-05-2023 Sleep Studies [id number]. 00TIFF Normal [facility] Family Medicine Office/Clini c Noteon 12-01-2023 Family Medicine Office/Clinic Note Chief Complaint Weight Management HPI Staff Kayleen is a 28 year old female presenting for 1 month follow up Weight management: Started Phentermine on 10/06/23 Sleeping well:No, Having problems staying asleep Has been ongoing. Has appt on Monday for Sleep Study. Chest pain:No Tremors:No Headaches:Yes Hast been getting Migraines. Takes Excedrin. Heart fluttering:No Blurred Vision:No Beginning weight: 10/12/23 224Ibs, Previous weight: 11/07/2023 218 Today's weight: Questions/Concerns: Lyrica- Needs refill until neurologist returns to office on Monday. History of Present Illness pt presents today for weight management Review of Systems PHQ Score Initial Depression Screen Score: 0 SCORE Physical Exam Vitals & Measurements HR: 74(Peripheral) RR: 16 BP: 118/72 HT: 69 in HT: 175 cm WT: 99 kg WT: 217.8 lb BMI: 32.33 General: alert, no acute distress ENMT: oral mucosa moist, no pharyngeal erythema or exudate Cardiovascular: regular rate and rhythm, normal peripheral perfusion Respiratory: Lungs CTA, respirations non labored Extremities: no deformity, no trauma Neurological: oriented x 4, LOC appropriate for age, CN II-XII intact, motor strength equal & normal bilaterally, speech normal wheelchair bound Assessment/Plan 1. Encounter for weight management (Z76.89: Persons encountering health services in other specified circumstances) pt presents today for weight management. down 6 pounds. pt will go to hospital for next weight and report to our office. RTC 4 weeks 2. BMI 32.0-32.9,adult (Z68.32: Body mass index [BMI] 32.0-32.9, adult) continue making healthy food choices Orders: phentermine, 37.5 mg = 1 tab(s), Oral, Daily, # 30 tab(s), Refills(s) 0, Pharmacy: [id number], 175, cm, 12/01/23 10:10:00 EDT, Height/Length Dosing, 99, kg, 12/01/23 10:10:00 EDT, Weight Dosing phentermine, 37.5 mg = 1 tab(s), Oral, Daily, # 30 tab(s), Refills(s) 0, Pharmacy: [id number], 175.3, cm, 10/27/23 14:13:00 EDT, Height/Length Dosing, 102, kg, 10/12/23 14:58:00 EDT, Weight Dosing pregabalin, 300 mg = 1 cap(s), Oral, BID, # 60 cap(s), Refills(s) 0, Pharmacy: [facility]/pharmacy #[id number], 175.3, cm, 06/27/23 13:57:00 EST, Height/Length Dosing, 113.3, kg, 03/01/23 9:34:00 EDT, Weight Dosing pregabalin, 300 mg = 1 cap(s), Oral, BID, # 60 cap(s), Refills(s) 0, Pharmacy: [id number], 175, cm, 12/01/23 10:10:00 EDT, Height/Length Dosing, 99, kg, 12/01/23 10:10:00 EDT, Weight Dosing senna, 30 mg = 2 tab(s), Oral, Daily, PRN for constipation, # 30 tab(s), Refills(s) 0, Pharmacy: [id number], 175.3, cm, 10/06/23 10:31:00 EDT, Height/Length Dosing, 113.3, kg, 03/01/23 9:34:00 EDT, Weight Dosing Follow-up No qualifying data available Problem List/Past Medical History Ongoing Acute gastroenteritis Anxiety and depression Apnea Back pain Back pain with history of spinal surgery Bladder spasms BMI 32.0-32.9,adult Chronic hepatitis C Constipation Diarrhea Encounter for weight management Gasping for breath H/O chest tube placement Hepatitis C Pain management Paraplegia Rib pain on left side Right-sided chest wall pain Seizure disorder Skin infection Sleep apnea Smoker Snoring Spinal cord injury at T7-T12 level Stomach cramps Witnessed episode of apnea Historical No qualifying data Procedure/Surgical History Spinal fusion (2022), section, Tonsillectomy. Medications baclofen 10 mg Tab, 10 mg= 1 tab(s), Oral, TID, 1 refills baclofen 20 mg Tab, 20 mg= 1 tab(s), Oral, TID, 3 refills busPIRone 30 mg oral tablet, 30 mg= 1 tab(s), Oral, BID cloNIDine 0.3 mg Tab, 0.3 mg= 1 tab(s), Oral, BID ibuprofen 800 mg Tab, 800 mg= 1 tab(s), Oral, q8hr, 1 refills ibuprofen 800 mg Tab, 800 mg= 1 tab(s), Oral, TID, PRN, 1 refills lamotrigine 100 mg Tab, 100 mg= 1 tab(s), Oral, BID ondansetron 4 mg Dis Tab, 4 mg= 1 tab(s), Oral, q6hr, PRN, 1 refills oxybutynin 10 mg ER Tab, 10 mg= 1 tab(s), Oral, Daily phentermine 37.5 mg Tab, 37.5 mg= 1 tab(s), Oral, Daily pregabalin 300 mg Cap, 300 mg= 1 cap(s), Oral, BID quetiapine 100 mg Tab, 100 mg= 1 tab(s), Oral, Daily sertraline 50 mg Tab, 75 mg= 1.5 tab(s), Oral, Daily tiZANidine 4 mg Tab, See Instructions traMADol 100 mg/24 hours oral capsule, extended release, 100 mg= 1 cap(s), Oral, Daily traMADOL 50 mg Tab, 50 mg= 1 tab(s), Oral, q12hr, PRN Allergies Cymbalta (Suicide) hydrOXYzine (AOF, Eruption) propofol (Anaphylaxis) sodium hypochlorite topical (Unknown, Urticaria) Social History Alcohol - Denies Alcohol Use, 02/03/2020 Substance Abuse - Denies Substance Abuse, 02/03/2020 Tobacco Never (less than 100 in lifetime), Former smoker, quit more than 30 days ago Tobacco Use:. Current vaping or e-cigarette use Smokeless Tobacco Use:. Vaping, 10 year(s). Ready to change: No. Household tobacco concerns: No. Yes, 12/01/2023 Family History Ovarian cancer: Grandparent. Immunizat (more content not included)... Normal [facility] Comment on above: Result Comment: Elec tronically Signed By: Earline Koroma.jean\Date and Time Signed: 12/01/23 10:48 EDT Ileana 11-20-2023 REBECCA Telephone (REHMME) KAYLEEN PETE ([id number]) 1995 F Date Time Provider Department 11/20/23 TANGELA PAULA During your visit today, we recorded the following information about you: Sri Johnson 11/20/2023 3:38 PM Signed Tangela Paula APRN.[employer] has recommended Patient schedule a follow-up appointment (in-office) with Dr. Benedict. Called Patient-no answer. Left voicemail asking she call the [facility] at [phone] to schedule. Message also sent via [employer] Sri Pritchett 11/28/2023 4:51 PM Signed Per appt desk, Patient is scheduled for 01/09/2024 Sri Johnson Allergies As of Date: 11/20/2023 Noted Allergy Reaction CYMBALTA (DULOXETINE) 11/17/2023 14 - Other: See Comments Comments: Suicidal ideation Date Reviewed: 11/17/2023 Reviewed by: Tangela Paula APRN.CNP - Fully Assessed Reason for Visit: Appointment [[id number]] Prescriptions as of 11/28/2023 - oxybutynin ER (DITROPAN XL) 10 mg 24 hr tablet Take 10 mg by mouth once daily. - pregabalin (LYRICA) 300 mg capsule Take 300 mg by mouth two times a day. - QUEtiapine (SEROQUEL) 100 mg tablet Take 100 mg by mouth daily at bedtime. - lamoTRIgine (LAMICTAL) 100 mg tablet Take 100 mg by mouth two times a day. - busPIRone (BUSPAR) 15 mg tablet Take 30 mg by mouth two times a day. - sertraline (ZOLOFT) 25 mg tablet Take 25 mg by mouth once daily. - traMADol 100 mg TM24 Take 100 mg by mouth once daily. - traMADol 25 mg tablet Take 25 mg by mouth two times a day. - ondansetron (ZOFRAN) 4 mg tablet Take 4 mg by mouth every 8 hours as needed for nausea/vomiting. - tiZANidine (ZANAFLEX) 2 mg tablet Take 0.5 tablets by mouth every 6 hours as needed. - baclofen 15 mg tablet Take 1 tablet by mouth three times a day. Problem List As Of Date: 11/20/2023 (None) Encounter Status:Closed by SRI JOHNSON on 11/28/23 Normal [facility] Formson 11-02-2023 Forms [id number] 0TIFF [facility] Ambulatory Visit Summaryon 0 10-27-2023 Ambulatory Visit Summary MARCO PETEAMADA Mcallister :1995 Visit Date:10/27/2023 Ambulatory Visit Instructions Your Diagnosis Back pain with history of spinal surgery Paraplegia Snoring Apnea BMI 33.0-33.9,adult Former smoker Other specified postprocedural states Your Care Team Attending Physician - Earline Koroma Primary Care Physician - Earline Koroma This Is Your Medications List [facility] Prescription (BACLOFEN 20 MG TABLET) baclofen (baclofen 10 mg Tab) baclofen (baclofen 20 mg Tab) busPIRone (busPIRone 30 mg oral tablet) clonidine (cloNIDine 0.3 mg Tab) ibuprofen (ibuprofen 800 mg Tab) lamotrigine (lamotrigine 100 mg Tab) melatonin ondansetron (ondansetron 4 mg Dis Tab) oxybutynin (oxybutynin 10 mg ER Tab) phentermine (phentermine 37.5 mg Tab) pregabalin (pregabalin 300 mg Cap) quetiapine (quetiapine 100 mg Tab) senna (senna 15 mg oral tablet) sertraline (sertraline 50 mg Tab) tizanidine (tiZANidine 4 mg Tab) tramadol (traMADOL 50 mg Tab) tramadol (traMADol 100 mg/24 hours oral capsule, extended release) Procedures Performed Spinal fusion (2022), section, Tonsillectomy. Discharge Vitals Heart Rate (Peripheral) 82 Respiratory Rate 18 Blood Pressure 130/78 Height 175.3 cm Height 69 in What to do next Scheduled Follow-Up Appointments Monday 10:00 AM EDT With: Earline Koroma Where: [facility] [place] [facility] Family Medicine Office/Clini c Noteon 10-27-2023 Family Medicine Office/Clinic Note HPI Staff Kayleen is a 28 year old female presenting for FMLA paperwork for her Weight management: Started Phentermine on 10/06/23 Sleeping well:Yes, 6-8 hours Chest pain:No Tremors:No Headaches:No Heart fluttering:No Blurred Vision:No Beginning weight: 224 Ibs Previous weight: Pt to obtain weight and call in Today's weight: Questions/Concerns: Pt denies any side effects from adipex. Pt will call and get it set up to get her weight checked next week. Pt states for FMLA her surgeon has been filling it out but due to her not going back there anymore they need someone to fill it out for paperwork for her . Snoring: yes Witnessed Apnea: yes (hospital 2022 ) Gasping at night: yes Fatigue: yes Restless leg: n/a HTN: no Nocturnal Urination: no Concerns: pt would order for sleep study. History of Present Illness pt presents today for weight management and sleep apnea, also need FMLA paper work for to help take care of her Review of Systems PHQ Score Initial Depression Screen Score: 0 SCORE Physical Exam Vitals & Measurements HR: 82(Peripheral) RR: 18 BP: 130/78 SpO2: 99% HT: 69 in HT: 175.3 cm General: alert, no acute distress ENMT: oral mucosa moist, no pharyngeal erythema or exudate Cardiovascular: regular rate and rhythm, normal peripheral perfusion Respiratory: Lungs CTA, respirations non labored Extremities: no deformity, no trauma Neurological: oriented x 4, LOC appropriate for age, CN II-XII intact, motor strength equal & normal bilaterally, speech normal pt in wheelchair Assessment/Plan 1. Back pain with history of spinal surgery (M54.9: Dorsalgia, unspecified) pt presents with in need of FMLA paper work. they will obtain proper paper work and bring it to office or have it faxed 2. Paraplegia (G82.20: Paraplegia, unspecified) pt in wheel chair. will go to hospital for weight next week 3. Snoring (R06.83: Snoring) pt states she snores, gasps, and moans when sleeping. when in the hospital she had apnea episodes and nurses kept putting O2 on her. she was told then to have sleep study done. but did not do it. will order at home sleep study through [facility]. 4. Sleep apnea (G47.30: Sleep apnea, unspecified) see above 5. Gasping for breath (R06.89: Other abnormalities of breathing) see above 6. Witnessed episode of apnea (R06.81: Apnea, not elsewhere classified) see above 7. Former smoker (Z87.891: Personal history of nicotine dependence) continue not smoking 8. BMI 33.0-33.9,adult (Z68.33: Body mass index [BMI] 33.0-33.9, adult) bmi education complete 9. Encounter for weight management (Z76.89: Persons encountering health services in other specified circumstances) doing well on adipex. denies side effects Orders: phentermine, 37.5 mg = 1 tab(s), Oral, Daily, # 30 tab(s), Refills(s) 0, Pharmacy: [facility], 175.3, cm, 10/27/23 14:13:00 EDT, Height/Length Dosing, 102, kg, 10/12/23 14:58:00 EDT, Weight Dosing phentermine, 37.5 mg = 1 tab(s), Oral, Daily, # 30 tab(s), Refills(s) 0, Pharmacy: [facility], 175.3, cm, 10/06/23 10:31:00 EDT, Height/Length Dosing, 113.3, kg, 03/01/23 9:34:00 EDT, Weight Dosing Follow-up No qualifying data available Problem List/Past Medical History Ongoing Acute gastroenteritis Anxiety and depression Apnea Back pain Back pain with history of spinal surgery Bladder spasms Chronic hepatitis C Constipation Diarrhea Encounter for weight management Gasping for breath H/O chest tube placement Hepatitis C Pain management Paraplegia Rib pain on left side Right-sided chest wall pain Seizure disorder Skin infection Sleep apnea Smoker Snoring Spinal cord injury at T7-T12 level Stomach cramps Witnessed episode of apnea Historical No qualifying data Procedure/Surgical History Spinal fusion (2022), section, Tonsillectomy. Medications baclofen 10 mg Tab, 10 mg= 1 tab(s), Oral, TID, 1 refills baclofen 20 mg Tab, 20 mg= 1 tab(s), Oral, TID, 3 refills BACLOFEN 20 MG TABLET, 0, TID busPIRone 30 mg oral tablet, 30 mg= 1 tab(s), Oral, BID cloNIDine 0.3 mg Tab, 0.3 mg= 1 tab(s), Oral, BID ibuprofen 800 mg Tab, 800 mg= 1 tab(s), Oral, q8hr, 1 refills lamotrigine 100 mg Tab, 100 mg= 1 tab(s), Oral, BID melatonin, 5 mg, Oral, Once a day (at bedtime) ondansetron 4 mg Dis Tab, 4 mg= 1 tab(s), Oral, q6hr, PRN, 1 refills oxybutynin 10 mg ER Tab, 10 mg= 1 tab(s), Oral, Daily phentermine 37.5 mg Tab, 37.5 mg= 1 tab(s), Oral, Daily pregabalin 300 mg Cap, 300 mg= 1 cap(s), Oral, BID quetiapine 100 mg Tab, 100 mg= 1 tab(s), Oral, Daily senna 15 mg oral tablet, 30 mg= 2 tab(s), Oral, Daily, PRN sertraline 50 mg Tab, 75 mg= 1.5 tab(s), Oral, Daily tiZANidine 4 mg Tab, See Instructions traMADol 100 mg/24 hours oral capsule, extended release, 100 mg= 1 cap(s), Oral, Daily traMADOL 50 mg Tab, 50 mg= 1 tab(s), Oral, q12hr, PRN Allerg (more content not included)... [facility] Comment on above: Result Comment: Elec tronically Signed By: Earline Koroma\.br\Date and Time Signed: 10/27/23 14:51 EDT Formson 10-27-2023 Forms [id number] Normal [facility] Ambulatory Visit Summaryon 0 10-06-2023 Ambulatory Visit Summary KAYLEEN PETE :1995 Visit Date:10/06/2023 Ambulatory Visit Instructions Your Care Team Attending Physician - Earline Koroma Primary Care Physician - Earline Koroma This Is Your Medications List Misc Prescription (BACLOFEN 20 MG TABLET) busPIRone (busPIRone 30 mg oral tablet) clonidine (cloNIDine 0.3 mg Tab) ibuprofen (ibuprofen 800 mg Tab) lamotrigine (lamotrigine 100 mg Tab) melatonin ondansetron (ondansetron 4 mg Dis Tab) oxybutynin (oxybutynin 10 mg ER Tab) phentermine (phentermine 37.5 mg Tab) pregabalin (pregabalin 300 mg Cap) quetiapine (quetiapine 100 mg Tab) senna (senna 15 mg oral tablet) sertraline (sertraline 50 mg Tab) tizanidine (tiZANidine 4 mg Tab) tramadol (traMADOL 50 mg Tab) tramadol (traMADol 100 mg/24 hours oral capsule, extended release) Procedures Performed Spinal fusion (2022), section, Tonsillectomy. Discharge Vitals Heart Rate (Peripheral) 80 Respiratory Rate 18 Blood Pressure 128/74 Height 175.3 cm Height 69 in What to do next Scheduled Follow-Up Appointments Monday 10:00 AM EDT With: Earline Koroma Where: [facility] [place] [facility] [address] [place] [phone] \.br\ Medications\. br\ What How Much When Why Instructions\ .br\ New oxybutynin (oxybutynin 10 mg ER Tab) 1 Tablets By Mouth Every day Pickup at [facility]\.br\ New phentermine (phentermine 37.5 mg Tab) 1 Tablets By Mouth Every day Pickup at [facility]\.br\ New senna (senna 15 mg oral tablet) 2 Tablets By Mouth Every day as needed for for constipation Pickup at [facility]\.br\ Unchanged busPIRone (busPIRone 30 mg oral tablet) 1 Tablets By Mouth 2 times a day\.br\ Unchanged clonidine (cloNIDine 0.3 mg Tab) 1 Tablets By Mouth 2 times a day Back pain with history of spinal surgery Rib pain on left side Paraplegia Smoker\.br\ Unchanged ibuprofen (ibuprofen 800 mg Tab) 1 Tablets By Mouth Every 8 hours 21 EA, 0 Refill(s), TAKE 1 TABLET BY MOUTH EVERY 8 HOURS NEEDED FOR PAIN \.br\ Unchanged lamotrigine (lamotrigine 100 mg Tab) 1 Tablets By Mouth 2 times a day TAKE 1 TABLET BY MOUTH TWICE DAILY \.br\ Unchanged melatonin 5 Milligram By Mouth Once a day (at bedtime)\.br\ Unchanged Misc Prescription (BACLOFEN 20 MG TABLET) 0 3 times a day\.br\ Unchanged ondansetron (ondansetron 4 mg Dis Tab) 1 Tablets By Mouth Every 6 hours as needed for Nausea/Vomiti ng\.br\ Unchanged pregabalin (pregabalin 300 mg Cap) 1 Capsules By Mouth 2 times a day\.br\ Unchanged quetiapine (quetiapine 100 mg Tab) 1 Tablets By Mouth Every day\.br\ Unchanged sertraline (sertraline 50 mg Tab) 1.5 Tablets By Mouth Every day\.br\ Unchanged tizanidine (tiZANidine 4 mg Tab) See instructions 1 tab(s) Oral every 6 hours as needed \.br\ Unchanged tramadol (traMADol 100 mg/ 24 hours oral capsule, extended release) 1 Capsules By Mouth Every day Back pain with history of spinal surgery Pain management Back pain Paraplegia\.b r\ Unchanged tramadol (traMADOL 50 mg Tab) 1 Tablets By Mouth Every 12 hours as needed for for pain Back pain with history of spinal surgery Duration: 30 Days\.br\ Pharmacy Information\. br\ [facility]: [address] [place] [id number] [phone]\.br\ Allergies\.br \ Cymbalta (Suicide)\.br \ hydrOXYzine (AOF, Eruption)\.br \ propofol (Anaphylaxis) \.br\ sodium hypochlorite topical (Unknown, Urticaria)\.b r\ Problems\.br\ Ongoing - Any problem that you are currently receiving treatment for.\.br\ Acute gastroenterit is\.br\ Anxiety and depression\.b r\ Back pain\.br\ Back pain with history of spinal surgery\.br\ Chronic hepatitis C\.br\ Diarrhea\.br\ H/O chest tube placement\.br \ Hepatitis C\.br\ Pain management\.b r\ Paraplegia\.b r\ Rib pain on left side\.br\ Right-sided chest wall pain\.br\ Seizure disorder\.br\ Skin infection\.br \ Smoker\.br\ Spinal cord injury at T7-T12 level\.br\ Stomach cramps\.br\ Patient Survey\.br\ You may receive a survey via text or e-mail asking about your office visit. Please share your experience with us by completing your survey. We appreciate your feedback and thank you for choosing us for your care.\.br\ \.br\ [facility] Family Medicine Office/Clini c Noteon 10-06-2023 Family Medicine Office/Clinic Note HPI Staff Kayleen is a 28 year old female presenting to discuss weight management Having more bladder spasms would like to discuss increasing oxybutynin pt states she is eating twice a day and without being able to exercise would like to discuss options for weight loss. pt states she doesn't know of anywhere she can get a current weight. Pt having constipation issues has been taking generic stool softener 2 tabs BID just to be able to have a bowel movement. Does like using Miralax. [facility] was called and they are able to weight the patient. History of Present Illness pt presents today to discuss weight loss options Review of Systems PHQ Score Initial Depression Screen Score: 0 SCORE Physical Exam Vitals & Measurements HR: 80(Peripheral) RR: 18 BP: 128/74 SpO2: 99% HT: 69 in HT: 175.3 cm General: alert, no acute distress ENMT: oral mucosa moist, no pharyngeal erythema or exudate Cardiovascular: regular rate and rhythm, normal peripheral perfusion Respiratory: Lungs CTA, respirations non labored Extremities: no deformity, no trauma Neurological: oriented x 4, LOC appropriate for age, CN II-XII intact, motor strength equal & normal bilaterally, speech normal Assessment/Plan 1. Encounter for weight management (Z76.89: Persons encountering health services in other specified circumstances) discussed options. we are trying to find somewhere she can go to get current weight. this office does not have a wheelchair scale. will order adipex. medication agreement singed. RTC 4 weeks. pt will go to [facility] to get weight next week 2. Bladder spasms (N32.89: Other specified disorders of bladder) will increase oxybutynin to 10mg 3. Constipation (K59.00: Constipation, unspecified) will order senna tabs. pt states this has helped in the past Orders: busPIRone, 15 mg = 1 tab(s), Oral, TID, # 90 tab(s), Refills(s) 0, Pharmacy: [facility], 175.3, cm, 08/24/23 9:10:00 EST, Height/Length Dosing, 113.3, kg, 03/01/23 9:34:00 EDT, Weight Dosing oxybutynin, 5 mg = 1 tab(s), Oral, Daily, # 90 tab(s), Refills(s) 1, Pharmacy: [facility], 175.3, cm, 08/24/23 9:10:00 EST, Height/Length Dosing, 113.3, kg, 03/01/23 9:34:00 EDT, Weight Dosing oxybutynin, 10 mg = 1 tab(s), Oral, Daily, # 90 tab(s), Refills(s) 0, Pharmacy: [facility], 175.3, cm, 10/06/23 10:31:00 EDT, Height/Length Dosing, 113.3, kg, 03/01/23 9:34:00 EDT, Weight Dosing phentermine, 37.5 mg = 1 tab(s), Oral, Daily, # 30 tab(s), Refills(s) 0, Pharmacy: [facility], 175.3, cm, 10/06/23 10:31:00 EDT, Height/Length Dosing, 113.3, kg, 03/01/23 9:34:00 EDT, Weight Dosing quetiapine, 50 mg = 1 tab(s), Oral, Daily, # 90 tab(s), Refills(s) 1, [id number], 175.3, cm, 07/10/23 10:35:00 EST, Height/Length Dosing, 113.3, kg, 03/01/23 9:34:00 EDT, Weight Dosing quetiapine, 25 mg = 1 tab(s), Oral, Daily, # 90 tab(s), Refills(s) 1, Pharmacy: [facility], 175.3, cm, 08/24/23 9:10:00 EST, Height/Length Dosing, 113.3, kg, 03/01/23 9:34:00 EDT, Weight Dosing senna, 30 mg = 2 tab(s), Oral, Daily, PRN for constipation, # 30 tab(s), Refills(s) 0, Pharmacy: [facility], 175.3, cm, 10/06/23 10:31:00 EDT, Height/Length Dosing, 113.3, kg, 03/01/23 9:34:00 EDT, Weight Dosing sertraline, 75 mg = 1.5 tab(s), Oral, Daily, # 30 tab(s), Refills(s) 0, [id number], 175.3, cm, 07/10/23 10:35:00 EST, Height/Length Dosing, 113.3, kg, 03/01/23 9:34:00 EDT, Weight Dosing Follow-up No qualifying data available Problem List/Past Medical History Ongoing Acute gastroenteritis Anxiety and depression Back pain Back pain with history of spinal surgery Bladder spasms Chronic hepatitis C Constipation Diarrhea Encounter for weight management H/O chest tube placement Hepatitis C Pain management Paraplegia Rib pain on left side Right-sided chest wall pain Seizure disorder Skin infection Smoker Spinal cord injury at T7-T12 level Stomach cramps Historical No qualifying data Procedure/Surgical History Spinal fusion (2022), section, Tonsillectomy. Medications BACLOFEN 20 MG TABLET, 0, TID busPIRone 30 mg oral tablet, 30 mg= 1 tab(s), Oral, BID cloNIDine 0.3 mg Tab, 0.3 mg= 1 tab(s), Oral, BID ibuprofen 800 mg Tab, 800 mg= 1 tab(s), Oral, q8hr, 1 refills lamotrigine 100 mg Tab, 100 mg= 1 tab(s), Oral, BID melatonin, 5 mg, Oral, Once a day (at bedtime) ondansetron 4 mg Dis Tab, 4 mg= 1 tab(s), Oral, q6hr, PRN, 1 refills oxybutynin 10 mg ER Tab, 10 mg= 1 tab(s), Oral, Daily phentermine 37.5 mg Tab, 37.5 mg= 1 tab(s), Oral, Daily pregabalin 300 mg Cap, 300 mg= 1 cap(s), Oral, BID quetiapine 100 mg Tab, 100 mg= 1 tab(s), Oral, Daily senna 15 mg oral tablet, 30 mg= 2 tab(s), Oral, Daily, PRN sertraline 50 mg Tab, 75 mg= 1.5 tab(s), Oral, Daily tiZANidine 4 mg Tab, See Instructions traMADol 100 mg/24 hours oral capsule, extended (more content not included)... [facility] Comment on above: Result Comment: Elec tronically Signed By: Earline Koroma\.jean\Date and Time Signed: 10/06/23 13:14 EDT Medication Consenton 024 Medication Consent [id number] 0TIFF [facility] ALLIED HEALTHon 2023 ALLIED HEALTH HNO ID: [id number] Author: LEBRON WHITNEY RT(R) Service: Radiology Author Type: Technologist Type: Allied Health Filed: 2023 16:16 Note Text: Radiology Service Progress Note PATIENT NAME: Kayleen Pete DATE OF SERVICE: 2023 TIME: 4:16 PM PATIENT IDENTITY VERIFICATION COMPLETED USING TWO (2) IDENTIFIERS: Name and Date of confirmed by patient verbally and Name and Date of confirmed by identification band. FALL SCREENING: Has the patient had 2 falls in the last year or 1 fall with injury or currently using an Ambulatory Assistive Device (Walker, Cane, Wheelchair, Crutches, etc.)? Yes, Patient High Risk for Falls What interventions were put in place to prevent falls during this visit? [place] Falls Risk Wristband Applied, Instructed Patient to Call for Help if Needed, Offered Assistance with Transfers/Clothing, Instructed Patient to Remain Seated (Not on Exam Table) Until Exam, and Increased Observations by Caregivers PATIENT GENDER DATA: Female. status: : No status: NO. PATIENT RELEVANT IMPLANT DATA REVIEWED: Yes PATIENT PRESENTS WITH AN IMPLANTABLE OR ATTACHED MINE CAPTAIN: No RADIOLOGY DEPARTMENT: MR; Exam(s) Completed: Spine: Thoracic spine and Lumbar spine PERIPHERAL IV DATA: Not applicable SIGNED BY: RT Hilton(R) 2023 4:16 PM [facility] MRI LUMBAR SPINE WO IVCONon 2023 MRI LUMBAR SPINE WO IVCON * * *Final Report* * * DATE OF EXAM: 2023 5:09PM [facility] 0303 - MRI LUMBAR SPINE WO IVCON / PROCEDURE REASON: multiple diagnoses * * * * Physician Interpretation * * * * EXAMINATION: MRI THORACIC SPINE WO IVCON, MRI LUMBAR SPINE WO IVCON CLINICAL HISTORY: Middle back pain. TECHNIQUE: Routine lumbosacral and thoracic spine MR protocol without gadolinium. MQ: [id number] COMPARISON: Outside hospital thoracolumbar MRI 06/26/2022, noting burst fracture at L1 with severe central stenosis due to retropulsion. Subsequent laminectomy, and posterior fixation. RESULT: THORACIC: Counting reference: Craniocervical and lumbosacral junctions. For the purposes of this report, L4-5 is considered the level of the iliac crest and assume there are 5 lumbar-type vertebrae. Anatomic variant: None. Localizer images: No additional findings. Alignment: Alignment remains anatomic. Cord: The thoracic spinal cord is within normal limits of signal intensity and morphology. Bone marrow signal/fracture: No evidence of pathologic marrow infiltration. No evidence of prior fracture. Thoracic soft tissues: The paraspinal soft tissues are within normal limits. Canal and foramina: The there is a small posterior disc osteophyte at T3-4, with minimal impact on the cord. LUMBAR: Counting reference: Craniocervical and lumbosacral junctions. For the purposes of this report, L4-5 is considered the level of the iliac crest and assume there are 5 lumbar-type vertebrae. Anatomic variant: None. Localizer images: No additional findings Alignment: Alignment is anatomic, accounting for artifact. Post surgical change: Redemonstrated is fixation hardware connecting [id number], with laminectomy around L1. There is considerable metallic artifact from this region, and detail assessment is not possible. Bone marrow signal/fracture: No evidence of pathologic marrow infiltration. No evidence of prior fracture. Conus: The conus is within normal limits of signal intensity and morphology. Paraspinal soft tissues: Paraspinal soft tissues are within normal limits. L1-L2: Cannot be assessed due to artifact L2-L3: Canal and foramina remain patent L3-L4: Canal and foramina remain patent L4-L5: Canal and foramina remain patent L5-S1: Canal and foramina remain patent Sacrum and iliac wings: The visualized sacrum and iliac wings are within normal limits. The presacral soft tissues are normal in appearance. IMPRESSION: 1. REDEMONSTRATION OF POSTERIOR FIXATION HARDWARE BETWEEN T11 AND L3, REMAINS IN GROSSLY ANATOMIC ALIGNMENT ACCOUNTING FOR ARTIFACT 2. SIGNIFICANT METALLIC ARTIFACT IN THE REGION OF L1 PRECLUDES ANY VISUALIZATION OF VERTEBRAL BODY AND CENTRAL CANAL IN THIS REGION 3. OUTSIDE OF THIS REGION UNREMARKABLE THORACOLUMBAR SPINE Anatomic Thoracic/Lumbar Variant: None. L4-5 is considered the level of the iliac crest and assume there are 5 lumbar-type vertebrae. Curriculum Facilitator: BAY Transcribe Date/Time: 2023 7:06P Dictated by : ISMA NGUYỄN MD This examination was interpreted and the report reviewed and electronically signed by: ISMA NGUYỄN MD on 2023 7:17PM EST [id number] Normal [facility] MRI THORACIC SPINE WO IVCONo n 2023 MRI THORACIC SPINE WO IVCON * * *Final Report* * * DATE OF EXAM: 2023 5:09PM [facility] 0325 - MRI THORACIC SPINE WO IVCON / PROCEDURE REASON: multiple diagnoses * * * * Physician Interpretation * * * * EXAMINATION: MRI THORACIC SPINE WO IVCON, MRI LUMBAR SPINE WO IVCON CLINICAL HISTORY: Middle back pain. TECHNIQUE: Routine lumbosacral and thoracic spine MR protocol without gadolinium. MQ: [id number] COMPARISON: Outside hospital thoracolumbar MRI 06/26/2022, noting burst fracture at L1 with severe central stenosis due to retropulsion. Subsequent laminectomy, and posterior fixation. RESULT: THORACIC: Counting reference: Craniocervical and lumbosacral junctions. For the purposes of this report, L4-5 is considered the level of the iliac crest and assume there are 5 lumbar-type vertebrae. Anatomic variant: None. Localizer images: No additional findings. Alignment: Alignment remains anatomic. Cord: The thoracic spinal cord is within normal limits of signal intensity and morphology. Bone marrow signal/fracture: No evidence of pathologic marrow infiltration. No evidence of prior fracture. Thoracic soft tissues: The paraspinal soft tissues are within normal limits. Canal and foramina: The there is a small posterior disc osteophyte at T3-4, with minimal impact on the cord. LUMBAR: Counting reference: Craniocervical and lumbosacral junctions. For the purposes of this report, L4-5 is considered the level of the iliac crest and assume there are 5 lumbar-type vertebrae. Anatomic variant: None. Localizer images: No additional findings Alignment: Alignment is anatomic, accounting for artifact. Post surgical change: Redemonstrated is fixation hardware connecting [id number], with laminectomy around L1. There is considerable metallic artifact from this region, and detail assessment is not possible. Bone marrow signal/fracture: No evidence of pathologic marrow infiltration. No evidence of prior fracture. Conus: The conus is within normal limits of signal intensity and morphology. Paraspinal soft tissues: Paraspinal soft tissues are within normal limits. L1-L2: Cannot be assessed due to artifact L2-L3: Canal and foramina remain patent L3-L4: Canal and foramina remain patent L4-L5: Canal and foramina remain patent L5-S1: Canal and foramina remain patent Sacrum and iliac wings: The visualized sacrum and iliac wings are within normal limits. The presacral soft tissues are normal in appearance. IMPRESSION: 1. REDEMONSTRATION OF POSTERIOR FIXATION HARDWARE BETWEEN T11 AND L3, REMAINS IN GROSSLY ANATOMIC ALIGNMENT ACCOUNTING FOR ARTIFACT 2. SIGNIFICANT METALLIC ARTIFACT IN THE REGION OF L1 PRECLUDES ANY VISUALIZATION OF VERTEBRAL BODY AND CENTRAL CANAL IN THIS REGION 3. OUTSIDE OF THIS REGION UNREMARKABLE THORACOLUMBAR SPINE Anatomic Thoracic/Lumbar Variant: None. L4-5 is considered the level of the iliac crest and assume there are 5 lumbar-type vertebrae. Curriculum Facilitator: BAY Transcribe Date/Time: 2023 7:06P Dictated by : ISMA NGUYỄN MD This examination was interpreted and the report reviewed and electronically signed by: ISMA NGUYỄN MD on 2023 7:17PM EST [id number] Normal [facility] No Panel Informationon 09-21 [facility] XR LUMBAR 2V AP/LATon 2023 XR LUMBAR 2V AP/LAT * * *Final Report* * * DATE OF EXAM: 2023 3:41PM [id number] - XR LUMBAR 2V AP/LAT / PROCEDURE REASON: multiple diagnoses * * * * Physician Interpretation * * * * Examination: Cervical spine. Lumbar spine. History: The patient has a hx of spinal surgeries and complications. These radiographs were performed on the table. Mid back pain Fusion of spine of thoracolumbar region Technique: XR THORACIC 2V AP/LAT, XR LUMBAR 2V AP/LAT -- Comparison: Correlation with outside CT May 2023 FINDING/ RESULT: Counting reference: Lumbosacral junction. For the purposes of this report, L4-5 is considered the level of the iliac crest. The lumbosacral junction is labelled L5-S1. There are 5 non-rib bearing vertebrae. There are 12 ribs bilaterally. There has been surgical fusion from T11 to L3 with bilateral pedicle screws and rods. L1 interbody cage crosses the previous fracture. Left lateral T12-L2 screw-plate. Mild curvature convex left at the lower lumbar spine. Remainder of the vertebral body heights are maintained throughout the thoracic and lumbar spine. No subluxations. Mild disc space narrowing L4-5. Sacroiliac joints appear maintained. Malleable screw-plate at left 10th rib. Compared with prior CT, no apparent change in alignment. IMPRESSION: Postsurgical findings of the thoracolumbar spine without apparent complication. Curriculum Facilitator: BAY Transcribe Date/Time: Sep 23 2023 11:59A Dictated by : HEATHER GOYAL MD This examination was interpreted and the report reviewed and electronically signed by: HEATHER GOYAL MD on Sep 23 2023 12:09PM EST [id number] [facility] XR THORACIC 2V AP/LATon 09-01 XR THORACIC 2V AP/LAT * * *Final Report* * * DATE OF EXAM: 2023 3:41PM [id number] - XR THORACIC 2V AP/LAT / PROCEDURE REASON: multiple diagnoses * * * * Physician Interpretation * * * * Examination: Cervical spine. Lumbar spine. History: The patient has a hx of spinal surgeries and complications. These radiographs were performed on the table. Mid back pain Fusion of spine of thoracolumbar region Technique: XR THORACIC 2V AP/LAT, XR LUMBAR 2V AP/LAT -- Comparison: Correlation with outside CT May 2023 FINDING/ RESULT: Counting reference: Lumbosacral junction. For the purposes of this report, L4-5 is considered the level of the iliac crest. The lumbosacral junction is labelled L5-S1. There are 5 non-rib bearing vertebrae. There are 12 ribs bilaterally. There has been surgical fusion from T11 to L3 with bilateral pedicle screws and rods. L1 interbody cage crosses the previous fracture. Left lateral T12-L2 screw-plate. Mild curvature convex left at the lower lumbar spine. Remainder of the vertebral body heights are maintained throughout the thoracic and lumbar spine. No subluxations. Mild disc space narrowing L4-5. Sacroiliac joints appear maintained. Malleable screw-plate at left 10th rib. Compared with prior CT, no apparent change in alignment. IMPRESSION: Postsurgical findings of the thoracolumbar spine without apparent complication. Curriculum Facilitator: PSCB Transcribe Date/Time: Sep 23 2023 11:59A Dictated by : HEATHER GOYAL MD This examination was interpreted and the report reviewed and electronically signed by: HEATHER GOYAL MD on Sep 23 2023 12:09PM EST [id number] [facility] Ambulatory Visit Summaryon 0 08-24-2023 Ambulatory Visit Summary KAYLEEN PETE :1995 Visit Date:08/24/2023 Ambulatory Visit Instructions Your Diagnosis Vaping nicotine dependence, tobacco product Your Care Team Attending Physician - Earline Koroma Primary Care Physician - Earline Koroma This Is Your Medications List Misc Prescription (BACLOFEN 20 MG TABLET) busPIRone (busPIRone 15 mg Tab) clonidine (cloNIDine 0.3 mg Tab) ibuprofen (ibuprofen 800 mg Tab) lamotrigine (lamotrigine 150 mg Tab) melatonin ondansetron (ondansetron 4 mg Dis Tab) oxybutynin (oxybutynin 5 mg ER Tab) pregabalin (pregabalin 300 mg Cap) quetiapine (quetiapine 25 mg Tab) quetiapine (quetiapine 50 mg oral tablet) sertraline (sertraline 50 mg Tab) tizanidine (tiZANidine 4 mg Tab) tramadol (traMADOL 50 mg Tab) tramadol (traMADol 100 mg/24 hours oral capsule, extended release) Procedures Performed Spinal fusion (2022), section, Tonsillectomy. Discharge Vitals Temperature (Tympanic) 36.9 ?C Heart Rate (Peripheral) 88 Respiratory Rate 18 Blood Pressure 128/74 Height 175.3 cm Height 69 in What to do next Scheduled Follow-Up Appointments Monday 10:00 AM EDT With: Earline Koroma Where: [facility] [place] [facility] Family Medicine Office/Clini c Noteon 08-24-2023 Family Medicine Office/Clinic Note HPI Staff Kayleen is a 27 year old female presenting for sick visit Acute: chills, fever, joint pain, negative covid on 08/20/23 1 week ago started having nausea/diarrhea/vomiti ng, Last time patient vomited was Monday this week. Continues to feel nausea and having diarrhea with fatigue. Pt would like to discuss changing neurologist currently seeing KHALIF and doesn't feel like they are listening to her. She states she doesn't sleep well and is nervous she may have a seizure. Advised pt to check what neurologist is covered under insurance. pt states for years will have a constant dry mouth and drinks a lot of water. states grandma has sjogren's History of Present Illness pt presents for diarrhea, fever, stomach cramping for a couple days Review of Systems PHQ Score Initial Depression Screen Score: 0 SCORE ROS - Provider Constitutional: no fever, yes chills, no sweats, no fatigue Respiratory: no shortness of breath, no cough, no orthopnea, no wheezing. Cardiovascular: no chest pain, no palpitations, no edema. Neurologic: no headache, no dizziness, no numbness, no weakness. GI: diarrhea, cramping Physical Exam Vitals & Measurements T: 36.9 ?C(Tympanic) HR: 88(Peripheral) RR: 18 BP: 128/74 SpO2: 98% HT: 69 in HT: 175.3 cm General: alert, no acute distress ENMT: oral mucosa moist, no pharyngeal erythema or exudate Cardiovascular: regular rate and rhythm, normal peripheral perfusion Respiratory: Lungs CTA, respirations non labored Extremities: no deformity, no trauma Neurological: oriented x 4, LOC appropriate for age, CN II-XII intact, motor strength equal & normal bilaterally, speech normal Assessment/Plan 1. Acute gastroenteritis (K52.9: Noninfective gastroenteritis and colitis, unspecified) pt having diarrhea and cramping for a couple days. had fever and body aches too. pt taking anti-diarrheal it is not helping. will order bentyl and she also has zofran at pharmacy ready for her. Ordered: dicyclomine, 20 mg = 1 tab(s), Oral, QID, X 7 day(s), # 28 tab(s), Refills(s) 0, Pharmacy: [id number], 175.3, cm, 08/24/23 9:10:00 EST, Height/Length Dosing, 113.3, kg, 03/01/23 9:34:00 EDT, Weight Dosing 2. Diarrhea (R19.7: Diarrhea, unspecified) encouraged pt to go to ER if she is not able to keep herself hydrated Ordered: dicyclomine, 20 mg = 1 tab(s), Oral, QID, X 7 day(s), # 28 tab(s), Refills(s) 0, Pharmacy: [id number], 175.3, cm, 08/24/23 9:10:00 EST, Height/Length Dosing, 113.3, kg, 03/01/23 9:34:00 EDT, Weight Dosing 3. Stomach cramps (R10.9: Unspecified abdominal pain) bentyl sent Ordered: dicyclomine, 20 mg = 1 tab(s), Oral, QID, X 7 day(s), # 28 tab(s), Refills(s) 0, Pharmacy: [id number], 175.3, cm, 08/24/23 9:10:00 EST, Height/Length Dosing, 113.3, kg, 03/01/23 9:34:00 EDT, Weight Dosing 4. Vaping nicotine dependence, tobacco product (F17.290: Nicotine dependence, other tobacco product, uncomplicated) continue not vaping Ordered: dicyclomine, 20 mg = 1 tab(s), Oral, QID, X 7 day(s), # 28 tab(s), Refills(s) 0, Pharmacy: [id number], 175.3, cm, 08/24/23 9:10:00 EST, Height/Length Dosing, 113.3, kg, 03/01/23 9:34:00 EDT, Weight Dosing Orders: ibuprofen, 800 mg = 1 tab(s), Oral, TID, # 90 tab(s), Refills(s) 1, Pharmacy: [facility]/pharmacy #[id number], 175.3, cm, 05/31/23 10:31:00 EST, Height/Length Dosing, 113.3, kg, 03/01/23 9:34:00 EDT, Weight Dosing ondansetron, 4 mg = 1 tab(s), Oral, q6hr, PRN Nausea/Vomiting, # 30 tab(s), Refills(s) 0, Pharmacy: [facility]/pharmacy #[id number], 175.3, cm, 07/10/23 10:35:00 EST, Height/Length Dosing, 113.3, kg, 03/01/23 9:34:00 EDT, Weight Dosing ondansetron, 4 mg = 1 tab(s), Oral, q6hr, PRN Nausea/Vomiting, # 30 tab(s), Refills(s) 0, Pharmacy: [facility], 175.3, cm, 07/10/23 10:35:00 EST, Height/Length Dosing, 113.3, kg, 03/01/23 9:34:00 EDT, Weight Dosing pregabalin, 150 mg = 1 cap(s), Oral, BID, take 1 tab in am take 1 tab at lunch time, # 180 cap(s), Refills(s) 0, Pharmacy: [facility]/pharmacy #[id number], 175.3, cm, 07/10/23 10:35:00 EST, Height/Length Dosing, 113.3, kg, 03/01/23 9:34:00 EDT, Weight Dosing tramadol, 100 mg = 1 cap(s), Oral, Daily, # 30 cap(s), Refills(s) 0, Pharmacy: [facility]/pharmacy #[id number], 175.3, cm, 07/10/23 10:35:00 EST, Height/Length Dosing, 113.3, kg, 03/01/23 9:34:00 EDT, Weight Dosing tramadol, 100 mg = 1 cap(s), Oral, Daily, # 30 cap(s), Refills(s) 0, Pharmacy: [facility], 175.3, cm, 07/10/23 10:35:00 EST, Height/Length Dosing, 113.3, kg, 03/01/23 9:34:00 EDT, Weight Dosing Follow-up No qualifying data available Problem List/Past Medical History Ongoing Acute gastroenteritis Anxiety and depression Back pain Back pain with history of spinal surgery Chronic hepatitis C Diarrhea H/O chest tube placement Hepatitis C Pain management Paraplegia Rib pain on left side Right-sided chest wall pain Seizure disorder Skin infection Smoker Spinal cord injury at T7- (more content not included)... [facility] Comment on above: Result Comment: Elec tronically Signed By: Earline Koroma\.br\Date and Time Signed: 08/24/23 09:38 EST Pre-Certification Formon Pre-Certification Form [id number]#[id number] 0TIFF [facility] Physician Referralon 024 Physician Referral [id number] 02 [id number]#1. 00TIFF [facility] Ambulatory Visit Summaryon 0 07-10-2023 Ambulatory Visit Summary KAYLEEN PETE :1995 Visit Date:07/10/2023 Ambulatory Visit Instructions Your Diagnosis Vaping-related disorder Your Care Team Attending Physician - Earline Koroma Primary Care Physician - Earline Koroma This Is Your Medications List Misc Prescription (BACLOFEN 20 MG TABLET) busPIRone (busPIRone 15 mg Tab) clonidine (cloNIDine 0.3 mg Tab) ibuprofen (ibuprofen 800 mg Tab) ibuprofen (ibuprofen 800 mg Tab) lamotrigine (lamotrigine 150 mg Tab) melatonin ondansetron (ondansetron 4 mg Dis Tab) ondansetron (ondansetron 4 mg Dis Tab) oxybutynin (oxybutynin 5 mg ER Tab) oxycodone (oxyCODONE 5 mg Tab) oxycodone (oxyCODONE 5 mg Tab) polyethylene glycol 3350 (polyethylene glycol 3350 17 gram packet) pregabalin (pregabalin 300 mg Cap) quetiapine (quetiapine 25 mg Tab) quetiapine (quetiapine 50 mg oral tablet) sertraline (sertraline 50 mg Tab) tizanidine (tiZANidine 4 mg Tab) Procedures Performed Spinal fusion (2022), section, Tonsillectomy. Discharge Vitals Heart Rate (Peripheral) 74 Respiratory Rate 18 Blood Pressure 128/86 What to do next Scheduled Follow-Up Appointments Monday 8:40 AM EST With: Earline Koroma Where: [facility] [place] [facility] Family Medicine Office/Clini c Noteon 07-10-2023 Family Medicine Office/Clinic Note HPI Staff Kayleen is a 27 year old female presenting to discuss medication Pt states having a lot of nerve pain at night time and would like discuss taking 150mg in am then 150mg in afternoon and then 300mg at bedtime Pt did see neurosurgeon Dr Getachew Shook in [facility] and advised her ribs and back are not healed yet and would advise her to stay on the oxycodone for another month or so and he is taking that medication over at this time. Pt states she would like to discuss having a second opinion from another neurosurgeon. History of Present Illness pt presents today with continued pain of back on left rib Review of Systems PHQ Score Initial Depression Screen Score: 0 SCORE ROS - Provider Constitutional: no fever, no chills, no sweats, no fatigue Respiratory: no shortness of breath, no cough, no orthopnea, no wheezing. Cardiovascular: no chest pain, no palpitations, no edema. Neurologic: no headache, no dizziness, no numbness, no weakness. Physical Exam Vitals & Measurements HR: 74(Peripheral) RR: 18 BP: 128/86 SpO2: 97% General: alert, no acute distress ENMT: oral mucosa moist, no pharyngeal erythema or exudate Cardiovascular: regular rate and rhythm, normal peripheral perfusion Respiratory: Lungs CTA, respirations non labored Extremities: no deformity, no trauma Neurological: oriented x 4, LOC appropriate for age, CN II-XII intact, motor strength equal & normal bilaterally, speech normal Assessment/Plan 1. Back pain with history of spinal surgery (M54.9: Dorsalgia, unspecified) On 06-25-2022 pt had an accident. Had incomplete spinal cord injury. Since this injury she has had 3 surgeries. First surgery involved T-12 and L-1 compression fracture with L-1 burst. Decompression. T-12 was fused to T-11 and L1 was fused to L2. L1 fusion did not take. In May of 2023 L1 was replaced and a cage was placed. part of her left rib was removed to complete surgery. a plate was placed on this rib. it ended up breaking off and puncturing her lung. she ended up with a chest tube and a 3rd surgery to fix this. L-1 lateral corpectomy. Pt is still experiencing a tremendous amount of pain and is looking for a second opinion. she feels her surgeon is not consistent with the information he shares with her and her boyfriend. would like referral for second opinion at [facility] [place]. will send referral. pt would like to split her Lyrica dose to 150mg in am and lunch time. then 300 at bed time. all questions answered. RTC as needed Ordered: pregabalin, 150 mg = 1 cap(s), Oral, BID, take 1 tab in am take 1 tab at lunch time, # 180 cap(s), Refills(s) 0, Pharmacy: [facility]/pharmacy #[id number], 175.3, cm, 07/10/23 10:35:00 EST, Height/Length Dosing, 113.3, kg, 03/01/23 9:34:00 EDT, Weight Dosing [facility] External Ambulatory Referral 2. Spinal cord injury at T7-T12 level (S24.103A: Unspecified injury at T7-T10 level of thoracic spinal cord, initial encounter) see above Ordered: pregabalin, 150 mg = 1 cap(s), Oral, BID, take 1 tab in am take 1 tab at lunch time, # 180 cap(s), Refills(s) 0, Pharmacy: [facility]/pharmacy #[id number], 175.3, cm, 07/10/23 10:35:00 EST, Height/Length Dosing, 113.3, kg, 03/01/23 9:34:00 EDT, Weight Dosing [facility] External Ambulatory Referral 3. Rib pain on left side (R07.81: Pleurodynia) see above Ordered: pregabalin, 150 mg = 1 cap(s), Oral, BID, take 1 tab in am take 1 tab at lunch time, # 180 cap(s), Refills(s) 0, Pharmacy: [facility]/pharmacy #[id number], 175.3, cm, 07/10/23 10:35:00 EST, Height/Length Dosing, 113.3, kg, 03/01/23 9:34:00 EDT, Weight Dosing [facility] External Ambulatory Referral 4. Vaping-related disorder (U07.0: Vaping-related disorder) consider not vaping Ordered: pregabalin, 150 mg = 1 cap(s), Oral, BID, take 1 tab in am take 1 tab at lunch time, # 180 cap(s), Refills(s) 0, Pharmacy: [facility]/pharmacy #[id number], 175.3, cm, 07/10/23 10:35:00 EST, Height/Length Dosing, 113.3, kg, 03/01/23 9:34:00 EDT, Weight Dosing [facility] External Ambulatory Referral Other specified postprocedural states (Z98.890: Other specified postprocedural states) Follow-up No qualifying data available Problem List/Past Medical History Ongoing Anxiety and depression Back pain Back pain with history of spinal surgery Chronic hepatitis C H/O chest tube placement Hepatitis C Joint pain Pain management Paraplegia Rib pain on left side Right-sided chest wall pain Seizure disorder Skin infection Smoker Spinal cord injury at T7-T12 level Historical No qualifying data Procedure/Surgical History Spinal fusion (2022), section, Tonsillectomy. Medications BACLOFEN 20 MG TABLET, 0, TID busPIRone 15 mg Tab, 15 mg= 1 tab(s), Oral, TID cloNIDine 0.3 mg Tab, 0.3 mg= 1 tab(s), Oral, BID ibuprofen 800 mg Tab, 800 mg= 1 tab(s), Oral, TID, 1 refills ibuprofen 800 mg Tab, 800 mg= 1 tab(s), Oral, q8hr, 1 refills lamotrigine 150 mg Tab, See Instructions Lyrica 150 mg Cap, 150 mg= 1 cap(s), Oral, BID melatonin, (more content not included)... [facility] Comment on above: Result Comment: Elec tronically Signed By: Earline Koroma\.br\Date and Time Signed: 07/10/23 12:37 EST XR THORACIC SPINE (2 VIEWS)o n 07-03-2023 XR THORACIC SPINE (2 VIEWS) EXAMINATION: 4 XRAY VIEWS OF THE THORACIC SPINE 06/28/2023 2:33 pm COMPARISON: None. HISTORY: ORDERING SYSTEM PROVIDED HISTORY: Pseudoarthrosis of lumbar spine TECHNOLOGIST PROVIDED HISTORY: AP and lateral T spine xrays FINDINGS: Posterior fixation rods extend from the lower thoracic spine into the lumbar spine. The thoracic spine is in anatomic alignment. No fracture. Disc spaces preserved. Visualized lung unremarkable. Hardware in the lumbar spine appears intact. IMPRESSION: Unremarkable appearing thoracic spine Hardware extending from the lower thoracic spine to the lumbar spine appears intact Interpreted by: Kranthi Toledo MD Signed by: Kranthi Toledo MD 07/03/23 Final result [facility] Ambulatory Visit Summaryon 1 08-28-2022 Ambulatory Visit Summary KAYLEEN PETE :1995 Visit Date:06/27/2023 Ambulatory Visit Instructions Your Diagnosis Smoker Your Care Team Attending Physician - Earline Koroma Primary Care Physician - Earline Koroma [facility] Is [facility] (BACLOFEN 20 MG TABLET) baclofen (baclofen 10 mg Tab) busPIRone (busPIRone 15 mg Tab) cephalexin (Keflex 500 mg Cap) escitalopram (escitalopram 20 mg Tab) ibuprofen (ibuprofen 800 mg Tab) ibuprofen (ibuprofen 800 mg Tab) lamotrigine (Lamictal 150 mg Tab) lamotrigine (lamotrigine 150 mg Tab) melatonin ondansetron (ondansetron 4 mg Dis Tab) ondansetron (ondansetron 4 mg Dis Tab) oxybutynin (oxybutynin 5 mg ER Tab) oxycodone (oxyCODONE 5 mg Tab) oxycodone (oxyCODONE 5 mg Tab) polyethylene glycol 3350 (polyethylene glycol 3350 17 gram packet) pregabalin (pregabalin 300 mg Cap) quetiapine (quetiapine 25 mg Tab) quetiapine (quetiapine 50 mg oral tablet) sertraline (sertraline 50 mg Tab) tizanidine (tiZANidine 4 mg Tab) Procedures Performed Spinal fusion (2022), section, Tonsillectomy. Discharge Vitals Heart Rate (Peripheral) 76 Respiratory Rate 16 Blood Pressure 124/82 Height 175.3 cm Height 69 in What to do next Scheduled Follow-Up Appointments Monday 9:00 AM EST With: Earline Koroma Where: [facility] [place] [facility] Family Medicine Office/Clini c Noteon 06-27-2023 Family Medicine Office/Clinic Note HPI Staff Kayleen is a 27 year old female presenting to discuss pain medication Pt doesn't have appointment with pain management until September 07 2023 Pt has tried to wean herself off of the oxycodone started having withdraws such as cold sweats, restless leg, diarrhea, emotions out of control. would like to discuss get help getting off medicine and taking something that isn't so addictive. needs refill on Pregabalin History of Present Illness pt presents today to discuss weaning off of oxycodone. Review of Systems PHQ Score Initial Depression Screen Score: 0 SCORE ROS - Provider Constitutional: no fever, no chills, no sweats, no fatigue Respiratory: no shortness of breath, no cough, no orthopnea, no wheezing. Cardiovascular: no chest pain, no palpitations, no edema. Neurologic: no headache, no dizziness, no numbness, no weakness. Physical Exam Vitals & Measurements HR: 76(Peripheral) RR: 16 BP: 124/82 SpO2: 99% HT: 69 in HT: 175.3 cm General: alert, no acute distress ENMT: oral mucosa moist, no pharyngeal erythema or exudate Cardiovascular: regular rate and rhythm, normal peripheral perfusion Respiratory: Lungs CTA, respirations non labored Extremities: no deformity, no trauma Neurological: oriented x 4, LOC appropriate for age, CN II-XII intact, motor strength equal & normal bilaterally, speech normal Assessment/Plan 1. Back pain with history of spinal surgery (M54.9: Dorsalgia, unspecified) pt has chronic back and now left rib pain from recent surgery and chest tube placement. she has been trying to wean off of oxycodone but starts to have withdrawal symptoms including restless leg, nausea, diarrhea, will start weaning with 1/2 tab in am and pm then go to 1/2 tab daily. will also order clonidine to help with withdrawal symptoms. discussed changing to tylenol with codeine to help with pain. pt is scheduled with [facility] in August. that was the soonest they could get in. Ordered: clonidine, 0.3 mg = 1 tab(s), Oral, BID, # 60 tab(s), Refills(s) 0, Pharmacy: [id number], 175.3, cm, 06/27/23 13:57:00 EST, Height/Length Dosing, 113.3, kg, 03/01/23 9:34:00 EDT, Weight Dosing 2. Rib pain on left side (R07.81: Pleurodynia) see above Ordered: clonidine, 0.3 mg = 1 tab(s), Oral, BID, # 60 tab(s), Refills(s) 0, Pharmacy: [facility] #[id number], 175.3, cm, 06/27/23 13:57:00 EST, Height/Length Dosing, 113.3, kg, 03/01/23 9:34:00 EDT, Weight Dosing 3. Paraplegia (G82.20: Paraplegia, unspecified) in wheelchair Ordered: clonidine, 0.3 mg = 1 tab(s), Oral, BID, # 60 tab(s), Refills(s) 0, Pharmacy: [facility]/pharm[facility] #[id number], 175.3, cm, 06/27/23 13:57:00 EST, Height/Length Dosing, 113.3, kg, 03/01/23 9:34:00 EDT, Weight Dosing 4. Smoker (F17.200: Nicotine dependence, unspecified, uncomplicated) consider not smoking Ordered: clonidine, 0.3 mg = 1 tab(s), Oral, BID, # 60 tab(s), Refills(s) 0, [id number], 175.3, cm, 06/27/23 13:57:00 EST, Height/Length Dosing, 113.3, kg, 03/01/23 9:34:00 EDT, Weight Dosing Other specified postprocedural states (Z98.890: Other specified postprocedural states) Orders: oxycodone, See Instructions, TAKE 1-2 TABLETS BY MOUTH EVERY 6 HOURS NEEDED FOR PAIN FOR UP TO 7 DAYS. MAX: 40 MG/DAY, # 10 tab(s), Refills(s) 0, Pharmacy: [facility] #[id number], 175.3, cm, 05/31/23 10:31:00 EST, Height/Length Dosing, 113.3, kg, 03/01/23 9:34:00... oxycodone, See Instructions, Take 1/2 tab in am and 1/2 tab in pm. for 1 week. Then 1/2 tab daily until done with rx., # 12 tab(s), Refills(s) 0, [id number], 175.3, cm, 06/27/23 13:57:00 EST, Height/Length Dosing, 113.3, kg, 03/01/23 9:34:00 ED... pregabalin, 300 mg = 1 cap(s), Oral, BID, # 60 cap(s), Refills(s) 0, [id number], 175.3, cm, 03/01/23 9:34:00 EDT, Height/Length Dosing, 113.3, kg, 03/01/23 9:34:00 EDT, Weight Dosing pregabalin, 300 mg = 1 cap(s), Oral, BID, # 60 cap(s), Refills(s) 0, Pharmacy: [facility] #[id number], 175.3, cm, 06/27/23 13:57:00 EST, Height/Length Dosing, 113.3, kg, 03/01/23 9:34:00 EDT, Weight Dosing Follow-up No qualifying data available Problem List/Past Medical History Ongoing Anxiety and depression Back pain Back pain with history of spinal surgery Chronic hepatitis C H/O chest tube placement Hepatitis C Joint pain Pain management Paraplegia Rib pain on left side Right-sided chest wall pain Seizure disorder Skin infection Smoker Historical No qualifying data Procedure/Surgical History Spinal fusion (2022), section, Tonsillectomy. Medications baclofen 10 mg Tab, 10 mg= 1 tab(s), Oral, TID BACLOFEN 20 MG TABLET, 0, TID busPIRone 15 mg Tab, 15 mg= 1 tab(s), Oral, TID cloNIDine 0.3 mg Tab, 0.3 mg= 1 tab(s), Oral, BID escitalopram 20 mg Tab, 20 mg= 1 tab(s), Oral, Daily, 5 refills ibuprofen 800 mg Tab, 800 mg= 1 tab(s), Oral, TID, 1 refills ibuprofen 800 mg Tab, 800 mg= 1 tab(s), Oral, q8hr, 1 refills Keflex 500 mg Cap (more content not included)... [facility] Comment on above: Result Comment: Elec tronically Signed By: Earline Koroma\.br\Date and Time Signed: 06/27/23 14:36 EST Physician Referralon 023 Physician Referral [id number]#1.0 0TIFF [facility] Ambulatory Visit Summaryon 1 07-31-2022 Ambulatory Visit Summary KAYLEEN PETE :1995 Visit Date:05/31/2023 Ambulatory Visit Instructions Your Diagnosis Paraplegia Back pain Pain management Vaping-related disorder Former smoker Your Care Team Attending Physician - Earline Koroma Primary Care Physician - Earline Koroma This Is Your Medications List baclofen (baclofen 20 mg Tab) busPIRone (busPIRone 5 mg Tab) escitalopram (escitalopram 20 mg Tab) ibuprofen (ibuprofen 400 mg Tab) ibuprofen (ibuprofen 800 mg Tab) lamotrigine (Lamictal) melatonin ondansetron (ondansetron 4 mg Dis Tab) oxybutynin (oxybutynin 5 mg ER Tab) oxycodone (oxyCODONE 5 mg Tab) polyethylene glycol 3350 (polyethylene glycol 3350 17 gram packet) pregabalin (pregabalin 300 mg Cap) quetiapine (quetiapine 25 mg Tab) quetiapine (quetiapine 50 mg oral tablet) sertraline (sertraline 50 mg Tab) tizanidine (tiZANidine 4 mg Tab) Procedures Performed Spinal fusion (2022), section, Tonsillectomy. Discharge Vitals Temperature (Oral) 37 ?C Heart Rate (Peripheral) 110 Respiratory Rate 18 Blood Pressure 110/62 Height 175.3 cm Height 69 in What to do next Scheduled Follow-Up Appointments Monday 9:00 AM EST With: Earline Koroma Where: [facility] Auth for Release of Medical Recordson 05-30-2023 Auth for Release of Medical Records [id number]#1.0 0TIFF [facility] XR CHEST PORTABLEon 05-22-20 XR CHEST PORTABLE EXAMINATION: ONE XRAY VIEW OF THE CHEST 05/22/2023 7:07 am COMPARISON: 05/21/2023 HISTORY: ORDERING SYSTEM PROVIDED HISTORY: L chest tube TECHNOLOGIST PROVIDED HISTORY: L chest tube FINDINGS: The lungs are without acute focal process. There is no effusion or pneumothorax. Similar right-sided atelectasis. The cardiomediastinal silhouette is without acute process. The osseous structures are without acute process. IMPRESSION: No acute process. Interpreted by: Oren Ko MD Signed by: Oren Ko MD 05/22/23 Final result Normal [facility] XR CHEST PORTABLEon 05-21-20 XR CHEST PORTABLE EXAMINATION: ONE XRAY VIEW OF THE CHEST 05/21/2023 8:12 am COMPARISON: 05/20/2023 HISTORY: ORDERING SYSTEM PROVIDED HISTORY: L chest tube TECHNOLOGIST PROVIDED HISTORY: L chest tube Reason for Exam: LT chest tube/ AP erect/ port. FINDINGS: The lungs are without acute focal process. There is no effusion or pneumothorax. The cardiomediastinal silhouette is without acute process. The osseous structures are without acute process. IMPRESSION: No acute process. Interpreted by: Oren Ko MD Signed by: Oren Ko MD 05/21/23 Final result Normal [facility] Troponinon 05-20-2023 Troponin, High Sens 18 ng/L High 0-14 [facility] Comment on above: Result Comment: High Sensitivity Troponin values cannot be compared with other Troponin methodologies. Performed By: #### T [facility] #### [facility] [address] [place] [address] Massotherapist: Keon San MD XR ABDOMEN (KUB) (SINGLE AP VIEW)on 05-20-2023 XR ABDOMEN (KUB) (SINGLE AP VIEW) EXAMINATION: ONE SUPINE XRAY VIEW(S) OF THE ABDOMEN 05/20/2023 8:23 am COMPARISON: 05/16/2023, 1659 hours HISTORY: ORDERING SYSTEM PROVIDED HISTORY: abdominal pain TECHNOLOGIST PROVIDED HISTORY: abdominal pain Reason for Exam: Abd, pain/ AP supine/ port. 27-year-old female with abdominal pain FINDINGS: Portable supine view of the abdomen. Spinal fusion hardware projecting over the thoracolumbar spine. Ljew-yx-qonrjfrt stool burden. Subcutaneous emphysema along the left lateral chest wall. Lung bases are clear. Mildly dilated small bowel loops in the left side of the abdomen. Mild bilateral hip osteoarthrosis. Moderate stool and gas in the rectal vault and sigmoid colon. Plates and screws overlying the ribs, similar to the prior study. IMPRESSION: 1. Mildly dilated small bowel loops in the left side of the abdomen which can be seen with ileus or partial small bowel obstruction. Wkew-pj-hkcgbelz stool burden. 2. Subcutaneous emphysema along the left lateral chest wall. 3. Plates and screws overlying the ribs, similar to the prior study. Interpreted by: Melo Persaud MD Signed by: Melo Persaud MD 05/20/23 Final result Normal [facility] XR CHEST PORTABLEon 05-20-20 XR CHEST PORTABLE EXAMINATION: ONE XRAY VIEW OF THE CHEST 05/20/2023 8:21 am COMPARISON: 05/19/2023, 1616 hours HISTORY: ORDERING SYSTEM PROVIDED HISTORY: L chest tube TECHNOLOGIST PROVIDED HISTORY: L chest tube Reason for Exam: Lt chest tube/AP erect/port 27-year-old female with left-sided chest tube FINDINGS: Portable upright view of the chest. Subcutaneous emphysema along the left lateral chest wall. bus monitor leads overlie the chest. Trachea midline. No pneumothorax. Mild bibasilar atelectasis. No acute focal airspace consolidation or pleural effusions. Cardiac and mediastinal contours within normal limits. No acute osseous abnormality. Spinal fusion hardware projects over the thoracolumbar spine. IMPRESSION: 1. Mild bibasilar atelectasis. 2. No acute focal airspace consolidation or pleural effusions. 3. Subcutaneous emphysema along the left lateral chest wall. Interpreted by: Melo Persaud MD Signed by: Melo Persaud MD 05/20/23 Final result Normal [facility] XR CHEST PORTABLEon 05-19-20 XR CHEST PORTABLE EXAMINATION: ONE XRAY VIEW OF THE CHEST 05/19/2023 1:26 pm COMPARISON: Earlier exam of same date HISTORY: ORDERING SYSTEM PROVIDED HISTORY: S/p L chest tube removal TECHNOLOGIST PROVIDED HISTORY: S/p L chest tube removal FINDINGS: Suboptimal inspiration. Left chest tube has been removed. The lungs are without acute focal process. There is no effusion or obvious pneumothorax. The cardiomediastinal silhouette is stable. The osseous structures are stable. IMPRESSION: No acute process. Interpreted by: Andrew Sol MD Signed by: Andrew Sol MD 05/19/23 Final result Normal [facility] XR CHEST PORTABLE EXAMINATION: ONE XRAY VIEW OF THE CHEST 05/19/2023 5:07 am COMPARISON: 05/18/2023, 05/17/2023 HISTORY: ORDERING SYSTEM PROVIDED HISTORY: L chest tube TECHNOLOGIST PROVIDED HISTORY: L chest tube FINDINGS: Unchanged appearance of left chest tube. The side hole remains external to the pleural space. A trace left apical pneumothorax remains visible and unchanged in appearance. Shallow inflation with probable subsegmental atelectasis again demonstrated. No new airspace disease or significant effusion identified. Cardiac and mediastinal contours appear unchanged. IMPRESSION: Unchanged appearance of left chest tube and trace left apical pneumothorax. Interpreted by: Dl Dangelo MD Signed by: Dl Dangelo MD 05/19/23 Final result Normal [facility] Basic Metabolic Profon 05-18 Anion gap [Moles/Vol] 17 mmol/L Normal 9-17 [facility] Comment on above: Performed By: #### B MP, CDP #### [address] [address] Massotherapist: Keon San MD Calcium [Mass/Vol] 9.2 mg/dL Normal 8.6-10.4 [facility] Comment on above: Performed By: #### B MP, CDP #### [facility] [address] [place] [address] Massotherapist: Keon San MD Chloride [Moles/Vol] 101 mmol/L Normal 98-107 [facility] Comment on above: Performed By: #### B MP, CDP #### [facility] [address] [place] [address] Massotherapist: Keon aSn MD CO2 [Moles/Vol] 18 mmol/L Low 20-31 [facility] Comment on above: Performed By: #### B MP, CDP #### [facility] [address] [place] [address] Massotherapist: Keon San MD Creatinine [Mass/Vol] 0.3 mg/dL Low 0.5-0.9 [facility] Comment on above: Performed By: #### B MP, CDP #### [facility] [address] [place] [address] Massotherapist: Keon San MD GFR/1.73 sq M.predicted among non-blacks MDRD (S/P/Bld) [Vol rate/Area] mL/min/{1.73_m2} Normal >60 [facility] Comment on above: Result Comment: These results are not intended for use in patients <18 years of age. eGFR results are calculated without a race factor using the 2020 CKD-EPI equation. Careful clinical correlation is recommended, particularly when comparing to results calculated using previous equations. The CKD-EPI equation is less accurate in patients with extremes of muscle mass, extra-renal metabolism of creatine, excessive creatine ingestion, or following therapy that affects renal tubular secretion. Performed By: #### B KIM, CDP #### [facility] [address] [place] [address] Massotherapist: Keon San MD Glucose [Mass/Vol] 79 mg/dL Normal 70-99 [facility] Comment on above: Performed By: #### B MP, CDP #### [address] [address] Massotherapist: Keon San MD Potassium [Moles/Vol] 3.9 mmol/L Normal 3.7-5.3 [facility] Comment on above: Performed By: #### B KIM, CDP #### [address] [address] Massotherapist: Keon San MD Sodium [Moles/Vol] 136 mmol/L Normal 135-144 [facility] Comment on above: Performed By: #### B MP, CDP #### [facility] [address] [place] [address] Massotherapist: Keon San MD Urea nitrogen [Mass/Vol] 3 mg/dL Low 6-20 [facility] Comment on above: Performed By: #### B MP, CDP #### [facility] [address] [place] [address] Massotherapist: Keon San MD CBC with Diffon 05-18-2023 Abs. Basophil 0.03 k/uL Normal 0.00-0.20 [facility] Comment on above: Performed By: #### U RC #### [facility] [address] [place] [address] Massotherapist: Keon San MD Abs. Eosinophil <0.03 Normal 0.00-0.44 [facility] Comment on above: Performed By: #### U RC #### [address] [address] Massotherapist: Keon San MD Abs.Imm.Granulocyte 0.06 k/uL Normal 0.00-0.30 [facility] Comment on above: Performed By: #### U RC #### [place] [address] Massotherapist: Keon San MD Abs.Neutrophil (Seg) 10.33 k/uL High 1.50-8.10 [facility] Comment on above: Performed By: #### U RC #### [address] [address] Massotherapist: Keon San MD Basophils/100 WBC (Bld) 0 % Normal 0-2 [facility] Comment on above: Performed By: #### U RC #### [address] [address] Massotherapist: Keon San MD Eosinophils/100 WBC (Bld) 0 % Low 1-4 [facility] Comment on above: Performed By: #### U RC #### [address] [address] Massotherapist: Keon San MD Erythrocyte distribution width (RBC) [Ratio] 14.7 % High 11.8-14.4 [facility] Comment on above: Performed By: #### U RC #### [place] [address] Massotherapist: Keon San MD Hematocrit (Bld) [Volume fraction] 41.3 % Normal 36.3-47.1 [facility] Comment on above: Performed By: #### U RC #### [address] [place] [address] Massotherapist: Keon San MD Hemoglobin (Bld) [Mass/Vol] 12.5 g/dL Normal 11.9-15.1 [facility] Comment on above: Performed By: #### U RC #### [address] [address] Massotherapist: Keon San MD Immature granulocytes/100 WBC (Bld) 1 % High 0 [facility] Comment on above: Performed By: #### U RC #### [address] [address] Massotherapist: Keon San MD Lymphocytes (Bld) [#/Vol] 1.83 10*3/uL Normal 1.10-3.70 [facility] Comment on above: Performed By: #### U RC #### [address] [address] Massotherapist: Keon San MD Lymphocytes/100 WBC (Bld) 14 % Low 24-43 [facility] Comment on above: Performed By: #### U RC #### [address] [address] Massotherapist: Keon San MD MCH (RBC) [Entitic mass] 26.4 pg Normal 25.2-33.5 [facility] Comment on above: Performed By: #### U RC #### [address] [address] Massotherapist: Keon San MD MCHC (RBC) [Mass/Vol] 30.3 g/dL Normal 28.4-34.8 [facility] Comment on above: Performed By: #### U RC #### [address] [address] Massotherapist: Keon San MD MCV (RBC) [Entitic vol] 87.1 fL Normal 82.6-102.9 [facility] Comment on above: Performed By: #### U RC #### [address] [address] Massotherapist: Keon San MD Monocytes (Bld) [#/Vol] 0.86 10*3/uL Normal 0.10-1.20 [facility] Comment on above: Performed By: #### U RC #### [address] [address] Massotherapist: Keon San MD Monocytes/100 WBC (Bld) 7 % Normal 3-12 [facility] Comment on above: Performed By: #### U RC #### [address] [address] Massotherapist: Keon San MD Neutrophil (Seg) 79 % High 36-65 [facility] Comment on above: Performed By: #### U RC #### [address] [address] Massotherapist: Keon San MD NRBC Automated 0.0 per 100 WBC Normal 0.0 [facility] Comment on above: Performed By: #### U RC #### [address] [address] Massotherapist: Keon San MD Platelet mean volume (Bld) [Entitic vol] 9.7 fL Normal 8.1-13.5 [facility] Comment on above: Performed By: #### U RC #### [address] [address] Massotherapist: Keon San MD Platelets (Bld) [#/Vol] 494 10*3/uL High 138-453 [facility] Comment on above: Performed By: #### U RC #### [address] [address] Massotherapist: Keon San MD RBC (Bld) [#/Vol] 4.74 10*6/uL Normal 3.95-5.11 [facility] Comment on above: Performed By: #### U RC #### [address] [address] Massotherapist: Keon San MD RBC morphology finding Nom (Bld) ANISOCYTOSIS PRESENT Normal [facility] Comment on above: Performed By: #### U RC #### [address] [address] Massotherapist: Keon San MD WBC (Bld) [#/Vol] 13.1 10*3/uL High 3.5-11.3 [facility] Comment on above: Performed By: #### U RC #### [address] [address] Massotherapist: Keon San MD Cult,Urineon 05-18-2023 Cult,Urine Specimen Description .INDWELLING CATH URINE Culture NO GROWTH Report Status FINAL 05/18/2023 Normal [facility] Comment on above: Performed By: #### U RC #### [address] [address] Massotherapist: Keon San MD XR CHEST PORTABLEon 05-18-20 XR CHEST PORTABLE EXAMINATION: ONE XRAY VIEW OF THE CHEST 05/18/2023 6:41 pm COMPARISON: Chest radiograph earlier the same day HISTORY: ORDERING SYSTEM PROVIDED HISTORY: s/p chest L tube to water seal TECHNOLOGIST PROVIDED HISTORY: s/p chest L tube to water seal Reason for Exam: port upright, best image possible due to pt refusing to move at all to get better image FINDINGS: Left chest tube remains in place. The cardiomediastinal silhouette is stable. No focal consolidations. No gross pleural effusion. There is a tiny left apical pneumothorax. IMPRESSION: Tiny left apical pneumothorax, attention in the follow-up exam. Interpreted by: Aleyda Alcocer MD Signed by: Aleyda Aloccer MD 05/18/23 Final result Normal [facility] XR CHEST PORTABLE EXAMINATION: ONE XRAY VIEW OF THE CHEST 05/17/2023 6:54 am COMPARISON: 05/13/2023, 05/15/2023 HISTORY: ORDERING SYSTEM PROVIDED HISTORY: preop CXR TECHNOLOGIST PROVIDED HISTORY: preop CXR FINDINGS: Monitor leads overlie the chest. Partially visualized fusion hardware in the thoracolumbar spine. Stable cardiomediastinal silhouette. Mild hazy density left lung base suggests a small pleural effusion and atelectasis, better shown on the recent CT. Aside from minimal right basilar atelectasis the right lung is otherwise essentially clear. Displaced left 10th rib fracture fragment with hardware is also faintly visualized in the medial left lung base. IMPRESSION: Mild hazy left basilar opacity compatible with small effusion and atelectasis, better shown on the recent CT. Interpreted by: Reginaldo Love MD Kodali, Ravi P, MD Kodali, Ravi P, MD Signed by: Reginaldo Love MD 05/18/23 Final result Normal [facility] XR CHEST PORTABLE EXAMINATION: ONE XRAY VIEW OF THE CHEST 05/18/2023 6:04 am COMPARISON: 05/17/2023, 05/13/2023 HISTORY: ORDERING SYSTEM PROVIDED HISTORY: L chest tube TECHNOLOGIST PROVIDED HISTORY: L chest tube FINDINGS: The cardiac and mediastinal contours appear unchanged. Shallow inflation. Left chest tube remains in place. No identifiable pneumothorax. No new airspace disease identified in the interval. No evidence for pneumothorax. IMPRESSION: Left chest tube remains in place. No identifiable pneumothorax or new findings identified in the interval. Interpreted by: Dl Dangelo MD Signed by: Dl Dangelo MD 05/18/23 Final result Normal [facility] Basic Metabolic Profon 05-17 Anion gap [Moles/Vol] 12 mmol/L Normal - [facility] Comment on above: Performed By: #### B KIM, CDP #### [facility] [address] [place], [place] [id number] Massotherapist: Keon San MD Calcium [Mass/Vol] 9.1 mg/dL Normal 8.6-10.4 [facility] Comment on above: Performed By: #### B KIM, CDP #### [facility] [address] [place] [address] Massotherapist: Keon San MD Chloride [Moles/Vol] 102 mmol/L Normal 98-107 [facility] Comment on above: Performed By: #### B MP, CDP #### [facility] [address] [place] [address] Massotherapist: Keon San MD CO2 [Moles/Vol] 25 mmol/L Normal 20-31 [facility] Comment on above: Performed By: #### B KIM, CDP #### [address] [address] Massotherapist: Keon San MD Creatinine [Mass/Vol] 0.4 mg/dL Low 0.5-0.9 [facility] Comment on above: Performed By: #### B KIM, CDP #### [address] [address] Massotherapist: Keon San MD GFR/1.73 sq M.predicted among non-blacks MDRD (S/P/Bld) [Vol rate/Area] mL/min/{1.73_m2} Normal >60 [facility] Comment on above: Result Comment: These results are not intended for use in patients <18 years of age. eGFR results are calculated without a race factor using the 2020 CKD-EPI equation. Careful clinical correlation is recommended, particularly when comparing to results calculated using previous equations. The CKD-EPI equation is less accurate in patients with extremes of muscle mass, extra-renal metabolism of creatine, excessive creatine ingestion, or following therapy that affects renal tubular secretion. Performed By: #### B MP, CDP #### [address] [address] Massotherapist: Keon San MD Glucose [Mass/Vol] 91 mg/dL Normal 70-99 [facility] Comment on above: Performed By: #### B MP, CDP #### [address] [address] Massotherapist: Keon San MD Potassium [Moles/Vol] 3.7 mmol/L Normal 3.7-5.3 [facility] Comment on above: Performed By: #### B MP, CDP #### [facility] [address] [place] [address] Massotherapist: Keon San MD Sodium [Moles/Vol] 139 mmol/L Normal 135-144 [facility] Comment on above: Performed By: #### B KIM, CDP #### [facility] [address] [place] [address] Massotherapist: Keon San MD Urea nitrogen [Mass/Vol] 6 mg/dL Normal 6-20 [facility] Comment on above: Performed By: #### B KIM, CDP #### [address] [address] Massotherapist: Keon San MD CBC with Diffon 05-17-2023 Abs. Basophil 0.06 k/uL Normal 0.00-0.20 [facility] Comment on above: Performed By: #### B KIM, CDP #### [facility] [address] [place] [address] Massotherapist: Keon San MD Abs.Imm.Granulocyte 0.04 k/uL Normal 0.00-0.30 [facility] Comment on above: Performed By: #### B KIM, CDP #### [facility] [address] [place] [address] Massotherapist: Keon San MD Abs.Neutrophil (Seg) 3.87 k/uL Normal 1.50-8.10 [facility] Comment on above: Performed By: #### B KIM, CDP #### [address] [address] Massotherapist: Keon San MD Basophils/100 WBC (Bld) 1 % Normal 0-2 [facility] Comment on above: Performed By: #### B MP, CDP #### [address] [address] Massotherapist: Keon San MD Eosinophils (Bld) [#/Vol] 0.27 10*3/uL Normal 0.00-0.44 [facility] Comment on above: Performed By: #### B MP, CDP #### [address] [address] Massotherapist: Keon San MD Eosinophils/100 WBC (Bld) 4 % Normal 1-4 [facility] Comment on above: Performed By: #### B KIM, CDP #### [address] [address] Massotherapist: Keon San MD Erythrocyte distribution width (RBC) [Ratio] 14.7 % High 11.8-14.4 [facility] Comment on above: Performed By: #### B MP, CDP #### [facility] [address] [place] [address] Massotherapist: Keon San MD Hematocrit (Bld) [Volume fraction] 39.2 % Normal 36.3-47.1 [facility] Comment on above: Performed By: #### B MP, CDP #### [facility] [address] [place] [address] Massotherapist: Keon San MD Hemoglobin (Bld) [Mass/Vol] 12.2 g/dL Normal 11.9-15.1 [facility] Comment on above: Performed By: #### B MP, CDP #### [facility] [address] [place] [address] Massotherapist: Keon San MD Immature granulocytes/100 WBC (Bld) 1 % High 0 [facility] Comment on above: Performed By: #### B KIM, CDP #### [address] [address] Massotherapist: Keon San MD Lymphocytes (Bld) [#/Vol] 2.23 10*3/uL Normal 1.10-3.70 [facility] Comment on above: Performed By: #### B KIM, CDP #### [address] [address] Massotherapist: Keon San MD Lymphocytes/100 WBC (Bld) 32 % Normal 24-43 [facility] Comment on above: Performed By: #### B KIM, CDP #### [address] [address] Massotherapist: Keon San MD MCH (RBC) [Entitic mass] 26.5 pg Normal 25.2-33.5 [facility] Comment on above: Performed By: #### B KIM, CDP #### [address] [address] Massotherapist: Keon San MD MCHC (RBC) [Mass/Vol] 31.1 g/dL Normal 28.4-34.8 [facility] Comment on above: Performed By: #### B KIM, CDP #### [address] [address] Massotherapist: Keon San MD MCV (RBC) [Entitic vol] 85.2 fL Normal 82.6-102.9 [facility] Comment on above: Performed By: #### B KIM, CDP #### [address] [address] Massotherapist: Keon San MD Monocytes (Bld) [#/Vol] 0.55 10*3/uL Normal 0.10-1.20 [facility] Comment on above: Performed By: #### B MP, CDP #### [address] [address] Massotherapist: Keon San MD Monocytes/100 WBC (Bld) 8 % Normal 3-12 [facility] Comment on above: Performed By: #### B MP, CDP #### [address] [address] Massotherapist: Keon San MD Neutrophil (Seg) 54 % Normal 36-65 [facility] Comment on above: Performed By: #### B MP, CDP #### [address] [address] Massotherapist: Keon San MD NRBC Automated 0.0 per 100 WBC Normal 0.0 [facility] Comment on above: Performed By: #### B MP, CDP #### [address] [address] Massotherapist: Keon San MD Platelet mean volume (Bld) [Entitic vol] 9.5 fL Normal 8.1-13.5 [facility] Comment on above: Performed By: #### B MP, CDP #### [address] [address] Massotherapist: Keon San MD Platelets (Bld) [#/Vol] 462 10*3/uL High 138-453 [facility] Comment on above: Performed By: #### B MP, CDP #### [address] [address] Massotherapist: Keon San MD RBC (Bld) [#/Vol] 4.60 10*6/uL Normal 3.95-5.11 [facility] Comment on above: Performed By: #### B MP, CDP #### [address] [id number] Massotherapist: Keon San MD RBC morphology finding Nom (Bld) ANISOCYTOSIS PRESENT Normal [facility] Comment on above: Performed By: #### B MP, CDP #### [address] [place], [place] [phone] Massotherapist: Keon San MD WBC (Bld) [#/Vol] 7.0 10*3/uL Normal 3.5-11.3 [facility] Comment on above: Performed By: #### B MP, CDP #### [address] [id number] Massotherapist: Keon San MD Surgical Pathology Reporton 05-17-2023 Surgical Pathology Report (NOTE) Path Number: [id number] -- Diagnosis -- A. RIB, EXCISION: BONE WITH HARDWARE. GROSS ONLY Linsey Casillas M.D. 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 FOREIGN BODY REMOVAL kb Source of Specimen A: RIB FRAGMENT - GROSS ONLY Gross Description KAYLEEN PETE RIB FRAGMENT GROSS ONLY Received fresh is a 7.0 cm in length x 1.6 to 1.8 cm in diameter portion of bone with smooth resection margins. One surface of the bone is involved by two blue metallic plates, 3.3 cm in length each. The plates are additionally involved by multiple screws (13). There is scant attached moy-pink, soft tissue. No sections are submitted for microscopic evaluation. Gross exam only. tm SM/kb2:05/17/2023 Processing Lab: [address] [id number] Interpretation Performed at [address] [id number] SURGICAL PATHOLOGY CONSULTATION Patient Name: MARCO PETENDRIA [facility] Rec: [id number] [facility] ANATOMIC PATHOLOGY [address] [place] [phone] Normal [facility] XR CHEST PORTABLEon 05-17-20 XR CHEST PORTABLE EXAMINATION: ONE XRAY VIEW OF THE CHEST 05/17/2023 11:11 am COMPARISON: Earlier exam of same date HISTORY: ORDERING SYSTEM PROVIDED HISTORY: s/p L VATS and chest tube placement TECHNOLOGIST PROVIDED HISTORY: s/p L VATS and chest tube placement FINDINGS: Chest tube in left hemithorax. The lungs are without acute focal process. There is no effusion or pneumothorax. The cardiomediastinal silhouette is stable. The osseous structures are stable. IMPRESSION: No acute process. Interpreted by: Andrew Sol MD Signed by: Andrew Sol MD 05/17/23 Final result Normal [facility] Basic Metabolic Profon 05-16 Anion gap [Moles/Vol] 10 mmol/L Normal 9-17 [facility] Comment on above: Performed By: #### B KIM, CDP #### [address] [address] Massotherapist: Keon San MD Calcium [Mass/Vol] 9.2 mg/dL Normal 8.6-10.4 [facility] [facility] Comment on above: Performed By: #### B MP, CDP #### [address] [address] Massotherapist: Keon San MD Chloride [Moles/Vol] 103 mmol/L Normal 98-107 [facility] Comment on above: Performed By: #### B MP, CDP #### [facility] [address] [place] [address] Massotherapist: Keon San MD CO2 [Moles/Vol] 25 mmol/L Normal 20-31 [facility] Comment on above: Performed By: #### B MP, CDP #### [facility] [address] [place] [address] Massotherapist: Keon San MD Creatinine [Mass/Vol] 0.6 mg/dL Normal 0.5-0.9 [facility] Comment on above: Performed By: #### B KIM, CDP #### [facility] [address] [place] [address] Massotherapist: Keon San MD GFR/1.73 sq M.predicted among non-blacks MDRD (S/P/Bld) [Vol rate/Area] mL/min/{1.73_m2} Normal >60 [facility] Comment on above: Result Comment: These results are not intended for use in patients <18 years of age. eGFR results are calculated without a race factor using the 2020 CKD-EPI equation. Careful clinical correlation is recommended, particularly when comparing to results calculated using previous equations. The CKD-EPI equation is less accurate in patients with extremes of muscle mass, extra-renal metabolism of creatine, excessive creatine ingestion, or following therapy that affects renal tubular secretion. Performed By: #### B KIM, CDP #### [facility] [address] [place] [address] Massotherapist: Keon San MD Glucose [Mass/Vol] 81 mg/dL Normal 70-99 [facility] Comment on above: Performed By: #### B KIM, CDP #### [facility] [address] [place] [address] Massotherapist: Keon San MD Potassium [Moles/Vol] 4.1 mmol/L Normal 3.7-5.3 [facility] Comment on above: Performed By: #### B KIM, CDP #### [facility] [address] [place] [address] Massotherapist: Keon San MD Sodium [Moles/Vol] 138 mmol/L Normal 135-144 [facility] Comment on above: Performed By: #### B KIM, CDP #### [facility] [address] [place] [address] Massotherapist: Keon San MD Urea nitrogen [Mass/Vol] 5 mg/dL Low 6-20 [facility] Comment on above: Performed By: #### B KIM, CDP #### [address] [address] Massotherapist: Keon San MD CBC with Diffon 05-16-2023 Abs. Basophil 0.07 k/uL Normal 0.00-0.20 [facility] Comment on above: Performed By: #### B KIM, CDP #### [address] [address] Massotherapist: Keon San MD Abs.Imm.Granulocyte 0.04 k/uL Normal 0.00-0.30 [facility] Comment on above: Performed By: #### Ike ALVAREZ, CDP #### [address] [address] Massotherapist: Keon San MD Abs.Neutrophil (Seg) 3.38 k/uL Normal 1.50-8.10 [facility] Comment on above: Performed By: #### B KIM, CDP #### [address] [address] Massotherapist: Keon San MD Basophils/100 WBC (Bld) 1 % Normal 0-2 [facility] Comment on above: Performed By: #### B KIM, CDP #### [address] [address] Massotherapist: Keon San MD Eosinophils (Bld) [#/Vol] 0.30 10*3/uL Normal 0.00-0.44 [facility] Comment on above: Performed By: #### Ike ALVAREZ, CDP #### [address] [address] Massotherapist: Keon San MD Eosinophils/100 WBC (Bld) 5 % High 1-4 [facility] Comment on above: Performed By: #### B MP, CDP #### [address] [address] Massotherapist: Keon San MD Erythrocyte distribution width (RBC) [Ratio] 15.0 % High 11.8-14.4 [facility] Comment on above: Performed By: #### B MP, CDP #### [address] [address] Massotherapist: Keon San MD Hematocrit (Bld) [Volume fraction] 39.5 % Normal 36.3-47.1 [facility] Comment on above: Performed By: #### B MP, CDP #### [address] [address] Massotherapist: Keon San MD Hemoglobin (Bld) [Mass/Vol] 12.1 g/dL Normal 11.9-15.1 [facility] Comment on above: Performed By: #### B MP, CDP #### [address] [address] Massotherapist: Keon San MD Immature granulocytes/100 WBC (Bld) 1 % High 0 [facility] Comment on above: Performed By: #### B MP, CDP #### [address] [address] Massotherapist: Keon San MD Lymphocytes (Bld) [#/Vol] 2.14 10*3/uL Normal 1.10-3.70 [facility] Comment on above: Performed By: #### B MP, CDP #### [address] [address] Massotherapist: Keon San MD Lymphocytes/100 WBC (Bld) 33 % Normal 24-43 [facility] Comment on above: Performed By: #### B MP, CDP #### [address] [place] [address] Massotherapist: Keon San MD MCH (RBC) [Entitic mass] 26.8 pg Normal 25.2-33.5 [facility] Comment on above: Performed By: #### B MP, CDP #### [address] [address] Massotherapist: Keon San MD MCHC (RBC) [Mass/Vol] 30.6 g/dL Normal 28.4-34.8 [facility] Comment on above: Performed By: #### B MP, CDP #### [address] [address] Massotherapist: Keon San MD MCV (RBC) [Entitic vol] 87.4 fL Normal 82.6-102.9 [facility] Comment on above: Performed By: #### B MP, CDP #### [address] [address] Massotherapist: Keon San MD Monocytes (Bld) [#/Vol] 0.64 10*3/uL Normal 0.10-1.20 [facility] Comment on above: Performed By: #### B MP, CDP #### [address] [address] Massotherapist: Keon San MD Monocytes/100 WBC (Bld) 10 % Normal 3-12 [facility] Comment on above: Performed By: #### B MP, CDP #### [address] [address] Massotherapist: Keon San MD Neutrophil (Seg) 50 % Normal 36-65 [facility] Comment on above: Performed By: #### B MP, CDP #### [address] [address] Massotherapist: Keon San MD NRBC Automated 0.0 per 100 WBC Normal 0.0 [facility] Comment on above: Performed By: #### B MP, CDP #### [address] [address] Massotherapist: Keon San MD Platelet mean volume (Bld) [Entitic vol] 9.5 fL Normal 8.1-13.5 [facility] Comment on above: Performed By: #### B MP, CDP #### [address] [address] Massotherapist: Keon San MD Platelets (Bld) [#/Vol] 472 10*3/uL High 138-453 [facility] Comment on above: Performed By: #### B KIM, CDP #### [address] [address] Massotherapist: Keon San MD RBC (Bld) [#/Vol] 4.52 10*6/uL Normal 3.95-5.11 [facility] Comment on above: Performed By: #### B KIM, CDP #### [address] [address] Massotherapist: Keon San MD RBC morphology finding Nom (Bld) ANISOCYTOSIS PRESENT Normal [facility] Comment on above: Performed By: #### B MP, CDP #### [address] [address] Massotherapist: Keon San MD WBC (Bld) [#/Vol] 6.6 10*3/uL Normal 3.5-11.3 [facility] Comment on above: Performed By: #### B MP, CDP #### [address] [address] Massotherapist: Keon San MD HCG, ,Urineon 05-16 Beta HCG ( test) Ql (U) Negative Normal NEG [facility] Comment on above: Result Comment: Spec imens with hCG levels near the threshold of the test (25 mIU/mL) may give a negative or indeterminate result. In such cases, another test should be performed with a new specimen in 48-72 hours. If early is suspected clinically in this setting, correlation with quantitative serum b-hCG level is suggested. Performed By: #### B MP, CDP #### [facility] [address] [place] [address] Massotherapist: Keon San MD Type + Screenon 05-16-2023 Type + Screen Sample Expiration 05/19/2023,2359 Arm Band Number [id number] ABO/Rh(D) O POSITIVE Antibody Screen NEGATIVE Normal [facility] Comment on above: Performed By: #### B MP, CDP #### [facility] [address] [place] [address] Massotherapist: Keon San MD XR ABDOMEN (KUB) (SINGLE AP VIEW)on 05-16-2023 XR ABDOMEN (KUB) (SINGLE AP VIEW) EXAMINATION: ONE SUPINE XRAY VIEW(S) OF THE ABDOMEN 05/16/2023 4:52 pm COMPARISON: 05/14/2023 HISTORY: ORDERING SYSTEM PROVIDED HISTORY: abdomimal pain TECHNOLOGIST PROVIDED HISTORY: abdomimal pain FINDINGS: Again noted are prominent air-filled loops of stomach and small bowel, without evidence of obstruction. Fracture fragments of the left 10th rib are again noted. Thoracolumbar fixation hardware is again noted. IMPRESSION: Persistent small bowel ileus, without definite evidence of obstruction. Interpreted by: Micheal Haas MD Signed by: Micheal Haas MD 05/16/23 Final result Normal [facility] XR HIP LEFT (2-3 VIEWS)on XR HIP LEFT (2-3 VIEWS) EXAMINATION: TWO XRAY VIEWS OF THE LEFT HIP 05/16/2023 4:52 pm COMPARISON: None. HISTORY: ORDERING SYSTEM PROVIDED HISTORY: Hip pain TECHNOLOGIST PROVIDED HISTORY: Hip pain FINDINGS: No acute fracture or dislocation is identified. The hip joint is maintained, without significant degenerative changes. The surrounding soft tissues are within normal limits. IMPRESSION: Unremarkable left hip. Interpreted by: Micheal Haas MD Signed by: Micheal Haas MD 05/16/23 Final result Normal [facility] CT CHEST ABDOMEN PELVIS WO C Isael 05-15-2023 CT CHEST ABDOMEN PELVIS WO CONTRAST EXAMINATION: CT OF THE CHEST, ABDOMEN, AND PELVIS WITHOUT CONTRAST 05/15/2023 9:37 am TECHNIQUE: CT of the chest, abdomen and pelvis was performed without the administration of intravenous contrast. Multiplanar reformatted images are provided for review. Automated exposure control, iterative reconstruction, and/or weight based adjustment of the mA/kV was utilized to reduce the radiation dose to as low as reasonably achievable. COMPARISON: 05/10/2023 HISTORY: ORDERING SYSTEM PROVIDED HISTORY: assess thoracic and lumbar hardware, 10th left rib hardware/ displacement TECHNOLOGIST PROVIDED HISTORY: assess thoracic and lumbar hardware, 10th left rib hardware/ displacement Is the patient ?->No FINDINGS: Chest: Mediastinum: No suspicious lymphadenopathy. Lungs/pleura: Moderate left pleural effusion.. There is mild bibasilar atelectasis. No pulmonary masses are noted. No pneumothorax identified. Cardiomediastinal Structures: Cardiac chambers are normal Soft Tissues/Bones: There is evidence of a displaced left 10 th rib fracture fragment located in the posterior sulcus of the left lower hemithorax measuring approximately 7 cm containing surgical hardware. Remaining portion of the left postsurgical rib appears intact. Stable appearing postsurgical hardware in the thoracolumbar spine extending into the L3 level. FINDINGS:. Organs: Liver is normal in size and density. No focal masses identified. No evidence of intrahepatic ductal dilatation. Spleen is normal size. The gallbladder is unremarkable. Both adrenal glands are normal. Pancreas is normal in appearance. The kidneys are normal in size and attenuation without evidence of hydronephrosis or renal calculi. GI/Bowel: The visualized bowel and mesentery show no mass lesions. Normal appendix Pelvis: No intrapelvic mass is identified. Small amount of fluid in the urinary bladder probably from previous instrumentation. Rectum appears intact. Peritoneum/Retroperito neum: No free fluid. No lymphadenopathy. No evidence of pneumoperitoneum. Bones/Soft Tissues: Small fat containing umbilical hernia. Postsurgical changes seen in the visualized spine . No acute bony abnormalities. IMPRESSION: Moderate left pleural effusion. There is evidence of a displaced left 10th rib fracture fragment located in the posterior sulcus of the left lower hemithorax measuring approximately 7 cm containing surgical hardware. No acute intra-abdominal or intrapelvic abnormalities are noted. RECOMMENDATIONS: Surgical consultation Interpreted by: Andrew Sol MD Signed by: Andrew Sol MD 05/15/23 Final result Normal [facility] XR ABDOMEN (KUB) (SINGLE AP VIEW)on 05-15-2023 XR ABDOMEN (KUB) (SINGLE AP VIEW) EXAMINATION: ONE SUPINE XRAY VIEW(S) OF THE ABDOMEN 05/14/2023 11:22 pm COMPARISON: None. HISTORY: ORDERING SYSTEM PROVIDED HISTORY: L sided lower quadrant pain TECHNOLOGIST PROVIDED HISTORY: L sided lower quadrant pain Reason for Exam: endoscopy tech to left lower abdoman supine port FINDINGS: Thoracolumbar hardware. Mild levoconvex scoliosis. Gas-filled loops of small bowel. Sideplate and screws transfix the 10th rib on the left. There appears to be a displaced fragment. IMPRESSION: Ileus. ORIF displaced rib fracture fragment as above. Interpreted by: Storm Anderson MD Signed by: Storm Anderson MD 05/15/23 Final result Normal [facility] XR CHEST PORTABLEon 05-13-20 XR CHEST PORTABLE EXAMINATION: ONE XRAY VIEW OF THE CHEST 05/13/2023 8:32 am COMPARISON: May 10, 2023 HISTORY: ORDERING SYSTEM PROVIDED HISTORY: r/o pleural effusion TECHNOLOGIST PROVIDED HISTORY: r/o pleural effusion Reason for Exam: uprt port chest FINDINGS: The cardiomediastinal silhouette is within normal range. Lungs are clear. There is no focal pulmonary consolidation, pleural effusion, pneumothorax, or evidence of airspace pulmonary edema. IMPRESSION: 1. No acute radiographic abnormality in the chest. Specifically, there is no visible pleural effusion. Interpreted by: Earnest Waller MD Signed by: Earnest Waller MD 05/13/23 Final result Normal [facility] US CHEST INCLUDING MEDIASTIN UMon 05-12-2023 US CHEST INCLUDING MEDIASTINUM EXAMINATION: ULTRASOUND OF THE CHEST 05/12/2023 2:53 pm COMPARISON: None. HISTORY: ORDERING SYSTEM PROVIDED HISTORY: thora TECHNOLOGIST PROVIDED HISTORY: thora not enough fluid to drain FINDINGS: The patient could not sit upright for the exam and was position and lateral decubitus position for planned left thoracentesis. Ultrasound shows only a small left pleural effusion. The patient states she is feeling better . Planned thoracentesis was deferred by the patient at this time due to the small quantity of fluid present. IMPRESSION: Small left pleural effusion. Planned thoracentesis was deferred at this time. Interpreted by: Reginaldo Love MD Signed by: Reginaldo Love MD 05/12/23 Final result Normal [facility] CBCon 05-11-2023 Erythrocyte distribution width (RBC) [Ratio] 14.5 % High 11.8-14.4 [facility] Comment on above: Performed By: #### L D, CBC, TP, XYEL, PT #### [place] [address] Massotherapist: Keon San MD Hematocrit (Bld) [Volume fraction] 37.4 % Normal 36.3-47.1 [facility] Comment on above: Performed By: #### L D, CBC, TP, XYEL, PT #### [facility] [address] [place] [address] Massotherapist: Keon San MD Hemoglobin (Bld) [Mass/Vol] 11.6 g/dL Low 11.9-15.1 [facility] Comment on above: Performed By: #### L D, CBC, TP, XYEL, PT #### [facility] [address] [place] [address] Massotherapist: Keon San MD MCH (RBC) [Entitic mass] 26.7 pg Normal 25.2-33.5 [facility] Comment on above: Performed By: #### L D, CBC, TP, XYEL, PT #### [facility] [address] [place] [address] Massotherapist: Keon San MD MCHC (RBC) [Mass/Vol] 31.0 g/dL Normal 28.4-34.8 [facility] Comment on above: Performed By: #### L D, CBC, TP, XYEL, PT #### [address] [address] Massotherapist: Keon San MD MCV (RBC) [Entitic vol] 86.2 fL Normal 82.6-102.9 [facility] Comment on above: Performed By: #### L D, CBC, TP, XYEL, PT #### [address] [address] Massotherapist: Keon San MD NRBC Automated 0.0 per 100 WBC Normal 0.0 [facility] Comment on above: Performed By: #### L D, CBC, TP, XYEL, PT #### [address] [address] Massotherapist: Keon San MD Platelet mean volume (Bld) [Entitic vol] 9.6 fL Normal 8.1-13.5 [facility] Comment on above: Performed By: #### L D, CBC, TP, XYEL, PT #### [address] [address] Massotherapist: Keon San MD Platelets (Bld) [#/Vol] 374 10*3/uL Normal 138-453 [facility] Comment on above: Performed By: #### L D, CBC, TP, XYEL, PT #### [address] [address] Massotherapist: Keon San MD RBC (Bld) [#/Vol] 4.34 10*6/uL Normal 3.95-5.11 [facility] Comment on above: Performed By: #### L D, CBC, TP, XYEL, PT #### [address] [address] Massotherapist: Keon San MD WBC (Bld) [#/Vol] 7.0 10*3/uL Normal 3.5-11.3 [facility] Comment on above: Performed By: #### L D, CBC, TP, XYEL, PT #### [employer] [address] [place] [address] Massotherapist: Keon San MD CT CHEST PULMONARY EMBOLISM W CONTRASTon 05-11-2023 CT CHEST PULMONARY EMBOLISM W CONTRAST EXAMINATION: CTA OF THE CHEST 05/10/2023 9:37 pm TECHNIQUE: CTA of the chest was performed after the administration of intravenous contrast. Multiplanar reformatted images are provided for review. MIP images are provided for review. Automated exposure control, iterative reconstruction, and/or weight based adjustment of the mA/kV was utilized to reduce the radiation dose to as low as reasonably achievable. COMPARISON: Chest x-ray from today. HISTORY: ORDERING SYSTEM PROVIDED HISTORY: chest pain, tachycardia , paraplegia TECHNOLOGIST PROVIDED HISTORY: chest pain, tachycardia , paraplegia FINDINGS: Pulmonary Arteries: Pulmonary arteries are adequately opacified for evaluation. No evidence of intraluminal filling defect to suggest pulmonary embolism. Main pulmonary artery is normal in caliber. Mediastinum: No evidence of mediastinal lymphadenopathy. The heart and pericardium demonstrate no acute abnormality. There is no acute abnormality of the thoracic aorta. Lungs/pleura: Moderate left pleural effusion. Subsegmental atelectasis left base. Upper Abdomen: Limited images of the upper abdomen are unremarkable. Soft Tissues/Bones: No acute bone or soft tissue abnormality. IMPRESSION: Moderate left pleural effusion Interpreted by: Storm Anderson MD Signed by: Storm Anderson MD 05/10/23 Final result Normal [facility] Extra Yellow Tubeon 05-11-20 Extra Yellow Tube Normal [facility] Comment on above: Performed By: #### L D, CBC, TP, XYEL, PT #### [employer] [address] [place], [place] [id number] Massotherapist: Keon San MD Lactate Dehydrogenaseon LDH [Catalytic activity/Vol] 190 U/L Normal 135-214 [facility] Comment on above: Performed By: #### L D, CBC, TP, XYEL, PT #### [employer] [address] [place], [place] [id number] Massotherapist: Keon San MD MRI LUMBAR SPINE WO CONTRAST on 05-11-2023 MRI LUMBAR SPINE WO CONTRAST EXAMINATION: MRI OF THE LUMBAR SPINE WITHOUT CONTRAST, 05/11/2023 5:27 pm TECHNIQUE: Multiplanar multisequence MRI of the lumbar spine was performed without the administration of intravenous contrast. COMPARISON: June 26, 2022 HISTORY: ORDERING SYSTEM PROVIDED HISTORY: Left thigh numbness burning TECHNOLOGIST PROVIDED HISTORY: Left thigh numbness burning Reason for Exam: Left thigh numbness burning FINDINGS: The patient is status post L1 corpectomy with placement of a strut graft. There have been thoracolumbar laminectomies with pedicle screw and connecting timothy fixation from T11 to L3. No acute fracture or traumatic subluxation is identified. No significant canal or neural foraminal stenosis is identified. There is mild degenerative disc disease at L4-5. No obvious epidural collection or mass is seen. However, there is paraspinal edema with a partially visualized fluid collection on the left hand side measuring approximately 4.8 x 1.6 cm in diameter on image number 2 of series 5. IMPRESSION: Partially visualized and nonspecific paravertebral edema/fluid collection at the thoracolumbar junction, on the left hand side. While this could represent postsurgical change, correlate for clinical signs of infection and recommend MRI of the T-spine with and without contrast for further evaluation if warranted. Interpreted by: Navdeep Garzon MD Signed by: Navdeep Garzon MD 05/11/23 Final result Normal [facility] PTon 05-11-2023 INR Coag (PPP) [Relative time] 1.0 {INR} Normal [facility] Comment on above: Result Comment: Therapeutic Range: Moderate Anticoagulant Intensity: INR = 2.0-3.0 High Anticoagulant Intensity: INR = 2.5-3.5 Performed By: #### L D, CBC, TP, XYEL, PT #### [employer] [facility] [place], [place] [id number] Massotherapist: Keon San MD PT Coag (PPP) [Time] 12.9 s Normal 11.7-14.9 [facility] Comment on above: Performed By: #### L D, CBC, TP, XYEL, PT #### [facility] [address] [place] [address] Massotherapist: Keon San MD Protein, Totalon 05-11-2023 Protein [Mass/Vol] 6.8 g/dL Normal 6.4-8.3 [facility] Comment on above: Performed By: #### YENI SPARKS #### [facility] [address] [place] [address] Massotherapist: Keon San MD Basic Metabolic Profon 05-10 Anion gap [Moles/Vol] 12 mmol/L Normal 9-17 [facility] Comment on above: Performed By: #### YENI SPARKS #### [facility] [address] [place] [address] Massotherapist: Keon San MD Calcium [Mass/Vol] 8.7 mg/dL Normal 8.6-10.4 [facility] Comment on above: Performed By: #### YENI SPARKS #### [facility] [address] [place] [address] Massotherapist: Keon San MD Chloride [Moles/Vol] 102 mmol/L Normal 98-107 [facility] Comment on above: Performed By: #### YENI SPARKS #### [facility] [address] [place] [address] Massotherapist: Keon San MD CO2 [Moles/Vol] 25 mmol/L Normal 20-31 [facility] Comment on above: Performed By: #### YENI SPARKS #### [facility] [address] [place] [address] Massotherapist: Keon San MD Creatinine [Mass/Vol] 0.4 mg/dL Low 0.5-0.9 [facility] Comment on above: Performed By: #### YENI SPARKS #### [employer] [address] [place] [address] Massotherapist: Keon San MD GFR/1.73 sq M.predicted among non-blacks MDRD (S/P/Bld) [Vol rate/Area] mL/min/{1.73_m2} Normal >60 [facility] Comment on above: Result Comment: These results are not intended for use in patients <18 years of age. eGFR results are calculated without a race factor using the 2020 CKD-EPI equation. Careful clinical correlation is recommended, particularly when comparing to results calculated using previous equations. The CKD-EPI equation is less accurate in patients with extremes of muscle mass, extra-renal metabolism of creatine, excessive creatine ingestion, or following therapy that affects renal tubular secretion. Performed By: #### Severo ZARATE BMP #### [employer] [address] [place] [address] Massotherapist: Keon San MD Glucose [Mass/Vol] 81 mg/dL Normal 70-99 [facility] Comment on above: Performed By: #### Severo ZARATE BMP #### [employer] [address] [place] [address] Massotherapist: Keon San MD Potassium [Moles/Vol] 3.4 mmol/L Low 3.7-5.3 [facility] Comment on above: Performed By: #### Severo ZARATE BMP #### [employer] [address] [place] [address] Massotherapist: Keon San MD Sodium [Moles/Vol] 139 mmol/L Normal 135-144 [facility] Comment on above: Performed By: #### Severo ZARATE BMP #### [employer] [address] [place] [address] Massotherapist: Keon San MD Urea nitrogen [Mass/Vol] 4 mg/dL Low 6-20 [facility] Comment on above: Performed By: #### T ROPI, BMP #### [address] [address] Massotherapist: Keon San MD CBCon 05-10-2023 Erythrocyte distribution width (RBC) [Ratio] 14.4 % Normal 11.8-14.4 [facility] Comment on above: Performed By: #### B MP, CDP #### [facility] [address] [place] [address] Massotherapist: Keon San MD Hematocrit (Bld) [Volume fraction] 36.0 % Low 36.3-47.1 [facility] Comment on above: Performed By: #### B KIM, CDP #### [facility] [address] [place] [address] Massotherapist: Keon San MD Hemoglobin (Bld) [Mass/Vol] 11.0 g/dL Low 11.9-15.1 [facility] Comment on above: Performed By: #### B MP, CDP #### [facility] [address] [place] [address] Massotherapist: Keon San MD MCH (RBC) [Entitic mass] 26.6 pg Normal 25.2-33.5 [facility] Comment on above: Performed By: #### B MP, CDP #### [facility] [address] [place] [address] Massotherapist: Keon San MD MCHC (RBC) [Mass/Vol] 30.6 g/dL Normal 28.4-34.8 [facility] Comment on above: Performed By: #### B MP, CDP #### [facility] [address] [place] [address] Massotherapist: Keon San MD MCV (RBC) [Entitic vol] 87.0 fL Normal 82.6-102.9 [facility] Comment on above: Performed By: #### B MP, CDP #### [address] [address] Massotherapist: Keon San MD NRBC Automated 0.0 per 100 WBC Normal 0.0 [facility] Comment on above: Performed By: #### B MP, CDP #### [address] [address] Massotherapist: Keon San MD Platelet mean volume (Bld) [Entitic vol] 10.1 fL Normal 8.1-13.5 [facility] Comment on above: Performed By: #### B MP, CDP #### [address] [address] Massotherapist: Keon San MD Platelets (Bld) [#/Vol] 344 10*3/uL Normal 138-453 [facility] Comment on above: Performed By: #### B MP, CDP #### [address] [address] Massotherapist: Keon San MD RBC (Bld) [#/Vol] 4.14 10*6/uL Normal 3.95-5.11 [facility] Comment on above: Performed By: #### B MP, CDP #### [address] [address] Massotherapist: Keon San MD WBC (Bld) [#/Vol] 6.3 10*3/uL Normal 3.5-11.3 [facility] Comment on above: Performed By: #### B MP, CDP #### [address] [address] Massotherapist: Keon San MD Troponinon 05-10-2023 Troponin, High Sens 12 ng/L Normal 0-14 [facility] Comment on above: Result Comment: High Sensitivity Troponin values cannot be compared with other Troponin methodologies. Performed By: #### T ELLIOT, BMP #### [address] [place] [address] Massotherapist: Keon San MD XR CHEST PORTABLEon 05-10-20 XR CHEST PORTABLE EXAMINATION: ONE XRAY VIEW OF THE CHEST 05/10/2023 6:17 pm COMPARISON: CT chest June 26, 2022 HISTORY: ORDERING SYSTEM PROVIDED HISTORY: SOB TECHNOLOGIST PROVIDED HISTORY: SOB FINDINGS: The lungs are without acute focal process. There is no effusion or pneumothorax. The cardiomediastinal silhouette is without acute process. The osseous structures are without acute process. IMPRESSION: No acute process. Interpreted by: Storm Anderson MD Signed by: Storm Anderson MD 05/10/23 Final result Normal [facility] XR LUMBAR SPINE (2-3 VIEWS)o n 05-10-2023 XR LUMBAR SPINE (2-3 VIEWS) EXAMINATION: 2 XRAY VIEWS OF THE LUMBAR SPINE 05/10/2023 2:17 pm COMPARISON: January 11, 2023 HISTORY: ORDERING SYSTEM PROVIDED HISTORY: AP lateral upright s/o lumbar corpectomy TECHNOLOGIST PROVIDED HISTORY: AP lateral upright s/o lumbar corpectomy FINDINGS: Poor tissue penetration limits evaluation, with the spine mostly obscured on the frontal radiograph. The patient is status post corpectomy with placement of a strut graft as well as pedicle screw and connecting timothy fixation of the thoracolumbar spine. IMPRESSION: Limited study. Interval corpectomy with placement of a strut graft. Interpreted by: Navdeep Garzon MD Signed by: Navdeep Garzon MD 05/10/23 Final result Normal [facility] CT LUMBAR SPINE WO CONTRASTo n 05-07-2023 CT LUMBAR SPINE WO CONTRAST EXAMINATION: CT OF THE LUMBAR SPINE WITHOUT CONTRAST 05/07/2023 TECHNIQUE: CT of the lumbar spine was performed without the administration of intravenous contrast. Multiplanar reformatted images are provided for review. Adjustment of mA and/or kV according to patient size was utilized. Automated exposure control, iterative reconstruction, and/or weight based adjustment of the mA/kV was utilized to reduce the radiation dose to as low as reasonably achievable. COMPARISON: December [address] HISTORY: ORDERING SYSTEM PROVIDED HISTORY: S/p L1 corpectomy TECHNOLOGIST PROVIDED HISTORY: S/p L1 corpectomy Is the patient ?->No FINDINGS: Assuming for the purposes of this dictation the iliac crests are at the L4-5 level. BONES/ALIGNMENT: There is normal alignment of the spine. Remote appearing burst fracture at the L1 level. No osseous destructive lesion is seen. DEGENERATIVE CHANGES: Pedicle screws associated posterior fixation rods extending from the T11 level to the L3 level. Prosthetic vertebral body at the L1 level. Left lateral fixation extending from the T12 to the L2 vertebral bodies. No threaded screws are seen involving the inferior aspect of this fixation plating. Surgical hardware appears to be intact. No osteolysis. No hardware fracture or displacement. Incidental note of prior left-sided rib fixation. Left-sided convex curvature lower lumbar spine. Mild narrowing of the L4-5 intervertebral disc space. No definite significant central canal stenosis is seen. SOFT TISSUES/RETROPERITONEU M: No paraspinal mass is seen. IMPRESSION: Postsurgical change. No complication. No acute osseous abnormality identified. Interpreted by: Rosalino Becerra MD Signed by: Rosalino Becerra MD 05/07/23 Final result Normal [facility] Comp Metabolic Profon 2022 Albumin [Mass/Vol] 3.1 g/dL Low 3.5-5.2 [facility] Comment on above: Performed By: #### U RC #### [address] [id number] Massotherapist: Keon San MD Albumin/Glob Ratio 1.0 Normal 1.0-2.5 [facility] Comment on above: Performed By: #### U RC #### [address] [id number] Massotherapist: Keon San MD Alkaline Phos 57 U/L Normal 35-104 [facility] Comment on above: Performed By: #### U RC #### [address] [id number] Massotherapist: Keon San MD ALT [Catalytic activity/Vol] 12 U/L Normal 5-33 [facility] Comment on above: Performed By: #### U RC #### [address] [address] Massotherapist: Keon San MD Anion gap [Moles/Vol] 12 mmol/L Normal 9-17 [facility] Comment on above: Performed By: #### U RC #### [address] [address] Massotherapist: Keon San MD AST [Catalytic activity/Vol] 26 U/L Normal <32 [facility] Comment on above: Performed By: #### U RC #### [address] [address] Massotherapist: Keon San MD Bilirubin [Mass/Vol] 0.3 mg/dL Normal 0.3-1.2 [facility] Comment on above: Performed By: #### U RC #### [address] [address] Massotherapist: Keon San MD Calcium [Mass/Vol] 8.2 mg/dL Low 8.6-10.4 [facility] Comment on above: Performed By: #### U RC #### [address] [address] Massotherapist: Keon San MD Chloride [Moles/Vol] 108 mmol/L High 98-107 [facility] Comment on above: Performed By: #### U RC #### [address] [address] Massotherapist: Keon San MD CO2 [Moles/Vol] 23 mmol/L Normal 20-31 [facility] Comment on above: Performed By: #### U RC #### [address] [address] Massotherapist: Keon San MD Creatinine [Mass/Vol] 0.4 mg/dL Low 0.5-0.9 [facility] Comment on above: Performed By: #### U RC #### [employer] [address] [place] [address] Massotherapist: Keon San MD GFR/1.73 sq M.predicted among non-blacks MDRD (S/P/Bld) [Vol rate/Area] mL/min/{1.73_m2} Normal >60 [facility] Comment on above: Result Comment: These results are not intended for use in patients <18 years of age. eGFR results are calculated without a race factor using the 2020 CKD-EPI equation. Careful clinical correlation is recommended, particularly when comparing to results calculated using previous equations. The CKD-EPI equation is less accurate in patients with extremes of muscle mass, extra-renal metabolism of creatine, excessive creatine ingestion, or following therapy that affects renal tubular secretion. Performed By: #### U RC #### [facility] [address] [place] [address] Massotherapist: Keon San MD Glucose [Mass/Vol] 86 mg/dL Normal 70-99 [facility] Comment on above: Performed By: #### U RC #### [facility] [address] [place] [address] Massotherapist: Keon San MD Potassium [Moles/Vol] 4.1 mmol/L Normal 3.7-5.3 [facility] Comment on above: Performed By: #### U RC #### [facility] [address] [place] [address] Massotherapist: Keon San MD Protein [Mass/Vol] 6.2 g/dL Low 6.4-8.3 [facility] Comment on above: Performed By: #### U RC #### [employer] [address] [place] [address] Massotherapist: Keon San MD Sodium [Moles/Vol] 143 mmol/L Normal 135-144 [facility] Comment on above: Performed By: #### U RC #### [address] [address] Massotherapist: Keon San MD Urea nitrogen [Mass/Vol] 4 mg/dL Low 6-20 [facility] Comment on above: Performed By: #### U RC #### [address] [address] Massotherapist: Keon San MD CBCon 05-06-2023 Erythrocyte distribution width (RBC) [Ratio] 14.4 % Normal 11.8-14.4 [facility] Comment on above: Performed By: #### U RC #### [address] [address] Massotherapist: Keon San MD Hematocrit (Bld) [Volume fraction] 37.9 % Normal 36.3-47.1 [facility] Comment on above: Performed By: #### U RC #### [address] [address] Massotherapist: Keon San MD Hemoglobin (Bld) [Mass/Vol] 11.8 g/dL Low 11.9-15.1 [facility] Comment on above: Performed By: #### U RC #### [address] [address] Massotherapist: Keon San MD MCH (RBC) [Entitic mass] 26.9 pg Normal 25.2-33.5 [facility] Comment on above: Performed By: #### U RC #### [address] [address] Massotherapist: Keon San MD MCHC (RBC) [Mass/Vol] 31.1 g/dL Normal 28.4-34.8 [facility] Comment on above: Performed By: #### U RC #### [address] [address] Massotherapist: Keon San MD MCV (RBC) [Entitic vol] 86.5 fL Normal 82.6-102.9 [facility] Comment on above: Performed By: #### U RC #### [address] [address] Massotherapist: Keon San MD NRBC Automated 0.0 per 100 WBC Normal 0.0 [facility] Comment on above: Performed By: #### U RC #### [address] [address] Massotherapist: Keon San MD Platelet mean volume (Bld) [Entitic vol] 10.5 fL Normal 8.1-13.5 [facility] Comment on above: Performed By: #### U RC #### [address] [address] Massotherapist: Keon San MD Platelets (Bld) [#/Vol] 290 10*3/uL Normal 138-453 [facility] Comment on above: Performed By: #### U RC #### [address] [address] Massotherapist: Keon San MD RBC (Bld) [#/Vol] 4.38 10*6/uL Normal 3.95-5.11 [facility] Comment on above: Performed By: #### U RC #### [address] [address] Massotherapist: Keon San MD WBC (Bld) [#/Vol] 11.0 10*3/uL Normal 3.5-11.3 [facility] Comment on above: Performed By: #### U RC #### [address] [address] Massotherapist: Keon San MD Cult,Urineon 05-06-2023 Cult,Urine Specimen Description .INDWELLING CATH URINE Culture NO GROWTH Report Status FINAL 05/06/2023 Normal [facility] Comment on above: Performed By: #### U RC #### [address] [address] Massotherapist: Keon San MD Extra Green Tubeon 3 Extra Green Tube Normal [facility] Comment on above: Performed By: #### U RC #### [address] [address] Massotherapist: Keon San MD FLUORO FOR SURGICAL PROCEDUR ESon 05-05-2023 FLUORO FOR SURGICAL PROCEDURES Radiology exam is complete. No Radiologist dictation. Please follow up with ordering provider. Final result Normal [facility] APTTon 04-24-2023 aPTT Coag (Bld) [Time] 29.4 s Normal 23.0-36.5 [facility] Comment on above: Result Comment: IV Heparin Therapy Range: 66.0-92.0 sec Performed By: #### U RC #### [address] [address] Massotherapist: Keon San MD BUN + Creatinineon 3 Creatinine [Mass/Vol] 0.5 mg/dL Normal 0.5-0.9 [facility] Comment on above: Performed By: #### U RC #### [address] [address] Massotherapist: Keon San MD GFR/1.73 sq M.predicted among non-blacks MDRD (S/P/Bld) [Vol rate/Area] mL/min/{1.73_m2} Normal >60 [facility] Comment on above: Result Comment: These results are not intended for use in patients <18 years of age. eGFR results are calculated without a race factor using the 2020 CKD-EPI equation. Careful clinical correlation is recommended, particularly when comparing to results calculated using previous equations. The CKD-EPI equation is less accurate in patients with extremes of muscle mass, extra-renal metabolism of creatine, excessive creatine ingestion, or following therapy that affects renal tubular secretion. Performed By: #### U RC #### [address] [address] Massotherapist: Keon San MD Urea nitrogen [Mass/Vol] 7 mg/dL Normal 6-20 [facility] Comment on above: Performed By: #### U RC #### [place] [address] Massotherapist: Keon San MD CBCon 04-24-2023 Erythrocyte distribution width (RBC) [Ratio] 14.7 % High 11.8-14.4 [facility] Comment on above: Performed By: #### U RC #### [address] [address] Massotherapist: Keon San MD Hematocrit (Bld) [Volume fraction] 45.6 % Normal 36.3-47.1 [facility] Comment on above: Performed By: #### U RC #### [address] [address] Massotherapist: Keon San MD Hemoglobin (Bld) [Mass/Vol] 14.5 g/dL Normal 11.9-15.1 [facility] Comment on above: Performed By: #### U RC #### [address] [address] Massotherapist: Keon San MD MCH (RBC) [Entitic mass] 26.6 pg Normal 25.2-33.5 [facility] Comment on above: Performed By: #### U RC #### [address] [address] Massotherapist: Keon San MD MCHC (RBC) [Mass/Vol] 31.8 g/dL Normal 28.4-34.8 [facility] Comment on above: Performed By: #### U RC #### [address] [address] Massotherapist: Keon San MD MCV (RBC) [Entitic vol] 83.5 fL Normal 82.6-102.9 [facility] Comment on above: Performed By: #### U RC #### [address] [address] Massotherapist: Keon San MD NRBC Automated 0.0 per 100 WBC Normal 0.0 [facility] Comment on above: Performed By: #### U RC #### [address] [address] Massotherapist: Keon San MD Platelet mean volume (Bld) [Entitic vol] 10.5 fL Normal 8.1-13.5 [facility] Comment on above: Performed By: #### U RC #### [address] [address] Massotherapist: Keon San MD Platelets (Bld) [#/Vol] 332 10*3/uL Normal 138-453 [facility] Comment on above: Performed By: #### U RC #### [address] [address] Massotherapist: Keon San MD RBC (Bld) [#/Vol] 5.46 10*6/uL High 3.95-5.11 [facility] Comment on above: Performed By: #### U RC #### [address] [address] Massotherapist: Keon San MD WBC (Bld) [#/Vol] 9.0 10*3/uL Normal 3.5-11.3 [facility] Comment on above: Performed By: #### U RC #### [address] [address] Massotherapist: Keon San MD Electrolyteson 04-24-2023 Anion gap [Moles/Vol] 10 mmol/L Normal 9-17 [facility] Comment on above: Performed By: #### U RC #### [address] [address] Massotherapist: Keon San MD Chloride [Moles/Vol] 104 mmol/L Normal 98-107 [facility] Comment on above: Performed By: #### U RC #### [address] [address] Massotherapist: Keon San MD CO2 [Moles/Vol] 25 mmol/L Normal 20-31 [facility] Comment on above: Performed By: #### U RC #### [address] [address] Massotherapist: Keon San MD Potassium [Moles/Vol] 4.6 mmol/L Normal 3.7-5.3 [facility] Comment on above: Performed By: #### U RC #### [address] [address] Massotherapist: Keon San MD Sodium [Moles/Vol] 139 mmol/L Normal 135-144 [facility] Comment on above: Performed By: #### U RC #### [address] [address] Massotherapist: Keon San MD Formson 04-24-2023 Forms [id number] 0TIFF Normal [facility] Glucoseon 04-24-2023 Glucose [Mass/Vol] 87 mg/dL Normal 70-99 [facility] Comment on above: Performed By: #### U RC #### [address] [address] Massotherapist: Keon San MD PTon 04-24-2023 INR Coag (PPP) [Relative time] 1.0 {INR} Normal [facility] Comment on above: Result Comment: Therapeutic Range: Moderate Anticoagulant Intensity: INR = 2.0-3.0 High Anticoagulant Intensity: INR = 2.5-3.5 Performed By: #### U RC #### [facility] [address] [place] [address] [phone] Massotherapist: Keon San MD PT Coag (PPP) [Time] 12.9 s Normal 11.7-14.9 [facility] Comment on above: Performed By: #### U RC #### [facility] [address] [place] [address] [id number] Massotherapist: Keon San MD Type + Screenon 04-24-2023 Type + Screen Sample Expiration 05/08/2023,2359 Arm Band Number BE [id number] ABO/Rh(D) O POSITIVE Antibody Screen NEGATIVE Normal [facility] Comment on above: Performed By: #### T ROPI, BMP #### [facility] [address] [place] [address] Massotherapist: Keon San MD Auth for Release of Medical Recordson 03-02-2023 Auth for Release of Medical Records [id number] 0CD:127 Normal [facility] Transfer Inon 03-02-2023 Transfer In [id number] 0CD:127 Normal [facility] Ambulatory Visit Summaryon 0 03-01-2023 Ambulatory Visit Summary KAYLEEN PETE :1995 Visit Date:03/01/2023 Ambulatory Visit Instructions Your Diagnosis BMI 36.0-36.9,adult Vaping nicotine dependence, tobacco product Your Care Team Attending Physician - Earline Koroma Primary Care Physician - Earline Koroma This Is Your Medications List baclofen (baclofen 20 mg Tab) busPIRone (busPIRone 5 mg Tab) busPIRone (busPIRone 5 mg Tab) escitalopram (escitalopram 20 mg Tab) escitalopram (escitalopram 20 mg Tab) ibuprofen (ibuprofen 200 mg Tab) lamotrigine (Lamictal) melatonin oxybutynin (oxybutynin 5 mg ER Tab) oxycodone (oxyCODONE 5 mg Tab) pregabalin (pregabalin 300 mg Cap) quetiapine (quetiapine 25 mg Tab) quetiapine (quetiapine 50 mg oral tablet) tizanidine (tiZANidine 4 mg Tab) Procedures Performed Spinal fusion (2022), section, Tonsillectomy. Discharge Vitals Heart Rate (Peripheral) 76 Respiratory Rate 18 Blood Pressure 122/78 Height 175.3 cm Height 69 in Weight 113.3 kg Weight 249.26 lb BMI 36.87 What to do next Scheduled Follow-Up Appointments Monday 9:00 AM EST With: Earline Koroma Where: [facility] Family Medicine Office/Clini c Noteon 03-01-2023 Family Medicine Office/Clinic Note HPI Staff Chani is a 27 year old female presenting to establish care Establish Care: History: Any previous diagnosis: Depression, seizures, paralyzed waist down, T12/L1 compression fracture with spinal fusion, L1 busrt History of seeing any specialist: Dr Spencer [facility], Vascular surgeon, Neurologist Kassy CUADRA Last provider: Amber Deng Any recent labs: [facility] Maintenance UTD: Colonoscopy: no Mammogram: no Pelvic/Pap: no Acute: Current issues/complaints: go over medications, pt does have to have another back surgery History of Present Illness pt presents today to establish care. had an accident in June and is now paralyzed Review of Systems PHQ Score Initial Depression Screen Score: 3 ROS - Provider Constitutional: no fever, no chills, no sweats, no fatigue Respiratory: no shortness of breath, no cough, no orthopnea, no wheezing. Cardiovascular: no chest pain, no palpitations, no edema. Neurologic: no headache, no dizziness, no numbness, no weakness. Physical Exam Vitals & Measurements HR: 76(Peripheral) RR: 18 BP: 122/78 SpO2: 97% HT: 69 in HT: 175.3 cm WT: 113.3 kg WT: 249.26 lb BMI: 36.87 General: alert, no acute distress ENMT: oral mucosa moist, no pharyngeal erythema or exudate Cardiovascular: regular rate and rhythm, normal peripheral perfusion Respiratory: Lungs CTA, respirations non labored Extremities: no deformity, no trauma Neurological: oriented x 4, LOC appropriate for age, CN II-XII intact, motor strength equal & normal bilaterally, speech normal Assessment/Plan 1. Anxiety and depression (F41.9: Anxiety disorder, unspecified) pt presents today to establish care. is in wheelchair paralyzed from waist down. 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 she had surgery but has to have another one because one fusion did not take. pt is currently in counseling and seems to be dealing with everything very well. needs refills on medications. previous provider gave her issues when she was due for refills. all questions answered. RTC 6 months 2. Seizure disorder (G40.909: Epilepsy, unspecified, not intractable, without status epilepticus) seizure meds managed by neurologist 3. BMI 36.0-36.9,adult (Z68.36: Body mass index [BMI] 36.0-36.9, adult) BMI education complete 4. Vaping nicotine dependence, tobacco product (F17.290: Nicotine dependence, other tobacco product, uncomplicated) consider not vaping Depression, unspecified (F32.A: Depression, unspecified) see above. Orders: baclofen, 20 mg = 1 tab(s), Oral, TID, # 90 tab(s), Refills(s) 5, Pharmacy: [facility]/pharmacy #[id number], 175.3, cm, 03/01/23 9:34:00 EDT, Height/Length Dosing, 113.3, kg, 03/01/23 9:34:00 EDT, Weight Dosing busPIRone, 5 mg = 1 tab(s), Oral, TID, # 270 tab(s), Refills(s) 5, Pharmacy: [facility]/pharmacy #[id number], 175.3, cm, 03/01/23 9:34:00 EDT, Height/Length Dosing, 113.3, kg, 08/30/23 9:34:00 EDT, Weight Dosing escitalopram, 20 mg = 1 tab(s), Oral, Daily, # 90 tab(s), Refills(s) 5, [id number] 175.3, cm, 03/01/23 9:34:00 EDT, Height/Length Dosing, 113.3, kg, 03/01/23 9:34:00 EDT, Weight Dosing ibuprofen, See Instructions, TAKE 1 TABLET BY MOUTH IN THE MORNING, 1 AT NOON, 1 IN THE EVENING AND 1 BEFORE BEDTIME, # 120 tab(s), Refills(s) 1, [id number], 175.3, cm, 03/01/23 9:34:00 EDT, Height/Length Dosing, 113.3, kg, 03/01/23 9:34:00 EDT... oxybutynin, 5 mg = 1 tab(s), Oral, Daily, # 90 tab(s), Refills(s) 1, [id number], 175.3, cm, 03/01/23 9:34:00 EDT, Height/Length Dosing, 113.3, kg, 03/01/23 9:34:00 EDT, Weight Dosing pregabalin, 300 mg = 1 cap(s), Oral, BID, # 60 cap(s), Refills(s) 0, [id number], 175.3, cm, 03/01/23 9:34:00 EDT, Height/Length Dosing, 113.3, kg, 03/01/23 9:34:00 EDT, Weight Dosing quetiapine, 25 mg = 1 tab(s), Oral, Daily, # 90 tab(s), Refills(s) 1, [id number], 175.3, cm, 03/01/23 9:34:00 EDT, Height/Length Dosing, 113.3, kg, 03/01/23 9:34:00 EDT, Weight Dosing quetiapine, 50 mg = 1 tab(s), Oral, Daily, # 90 tab(s), Refills(s) 1, [id number], 175.3, cm, 03/01/23 9:34:00 EDT, Height/Length Dosing, 113.3, kg, 03/01/23 9:34:00 EDT, Weight Dosing tizanidine, See Instructions, 1 tab(s) Oral every 6 hours as needed, # 9 tab(s), Refills(s) 0, Pharmacy: [facility]/pharmacy #[id number], 175.3, cm, 03/01/23 9:34:00 EDT, Height/Length Dosing, 113.3, kg, 03/01/23 9:34:00 EDT, Weight Dosing Follow-up No qualifying data available Problem List/Past Medical History Ongoing Anxiety and depression Chronic hepatitis C Hepatitis C Joint pain Right-sided chest wall pain Seizure disorder Smoker Historical No qualifying data Procedure/Surgical History Spinal fusion (2022), section, Tonsillectomy. Medications baclofen 20 mg Tab, 20 mg= 1 tab(s), Oral, TID, 5 refills busPIRone 5 mg Tab, 5 mg= 1 tab(s), Oral, TID, 5 refills escitalopram 20 mg Tab, 20 mg= 1 tab(s), O (more content not included)... Normal [facility] Comment on above: Result Comment: Elec tronically Signed By: Earline Koroma\.br\Date and Time Signed: 03/01/23 11:31 EDT XR LUMBAR SPINE (2-3 VIEWS)o n 01-15-2023 XR LUMBAR SPINE (2-3 VIEWS) EXAMINATION: XRAY VIEWS OF THE LUMBAR SPINE 01/11/2023 11:06 am COMPARISON: CT lumbar spine of 19 December 2022 HISTORY: ORDERING SYSTEM PROVIDED HISTORY: Closed compression fracture of body of L1 vertebra ([facility]) TECHNOLOGIST PROVIDED HISTORY: Include T11 to sacrum standing FINDINGS: Hardware in site 2 sing of inter pedicular screws and attached rods extending from the top of the field of view at T11 down to L3. Hardware is intact without complication. Severe central fresh in fracture of L1 again noted with slight dorsal pulsion of the posterior aspect of the vertebral body. The dorsal pulsion is unchanged. Been interval callus formation at the fracture site. No new fractures. No subluxation. IMPRESSION: Interval healing of L1 severe central compression with portions of the fracture line still visible. Alignment unchanged. Interpreted by: Shikha Ngo MD Signed by: Shikha Ngo MD 01/15/23 Final result Normal [facility] CT LUMBAR SPINE WO CONTRASTo n 12-23-2022 CT LUMBAR SPINE WO CONTRAST EXAMINATION: CT OF THE LUMBAR SPINE WITHOUT CONTRAST 12/19/2022 TECHNIQUE: CT of the lumbar spine was performed without the administration of intravenous contrast. Multiplanar reformatted images are provided for review. Adjustment of mA and/or kV according to patient size was utilized. Automated exposure control, iterative reconstruction, and/or weight based adjustment of the mA/kV was utilized to reduce the radiation dose to as low as reasonably achievable. COMPARISON: 06/26/2022, CT and MRI of the lumbar spine. HISTORY: ORDERING SYSTEM PROVIDED HISTORY: Complete paraplegia (HCC) TECHNOLOGIST PROVIDED HISTORY: T11- sacrum; postop T11- sacrum; postop Is the patient ?->No FINDINGS: BONES/ALIGNMENT: Postsurgical changes status post posterior thoracolumbar fusion from T11-L3 spanning an L1 burst fracture are noted. There is no disruption of the orthopedic hardware identified. No lucency is identified surrounding the orthopedic hardware. The sequelae of bilateral laminectomies at L1 is noted. The chronic L1 burst fracture demonstrates 80% loss of height centrally and 9 mm of retropulsion into the spinal canal. No new fracture is identified. SOFT TISSUES/RETROPERITONEU M: There is no paraspinal mass identified. T11-T12: There is no disc bulge or protrusion present. There is no significant spinal canal stenosis or neural foraminal narrowing present. T12-L1: Status post bilateral laminectomies. No spinal canal stenosis is present. L1-L2: Status post bilateral laminectomies. No spinal canal stenosis is present. L2-3: There is no disc bulge or protrusion present. There is no significant spinal canal stenosis or neural foraminal narrowing present. L3-4: There is no disc bulge or protrusion present. There is no significant spinal canal stenosis or neural foraminal narrowing present. L4-5: There is no disc bulge or protrusion present. There is no significant spinal canal stenosis or neural foraminal narrowing present. L5-S1: There is no disc bulge or protrusion present. There is no significant spinal canal stenosis or neural foraminal narrowing present. IMPRESSION: Sequelae of thoracolumbar spinal fusion from T11-L3 spanning an L1 burst fracture without adverse features of the orthopedic hardware evident. Interpreted by: Tim Palmer MD Signed by: Tim Palmer MD 12/23/22 Final result Normal [facility] CBC W Auto Differential pane l (Bld)on 07-28-2022 Basophils (Bld) [#/Vol] 0.03 10*3/uL <0.11 k/uL [facility] Basophils/100 WBC (Bld) 0.5 % [facility] [place] Differential cell count method Nom (Bld) Auto [facility] [place] Eosinophils (Bld) [#/Vol] 0.27 10*3/uL <0.46 k/uL [facility] [place] Eosinophils/100 WBC (Bld) 4.2 % [facility] [place] Erythrocyte distribution width (RBC) [Ratio] 13.5 % 11.5 - 15.0 % [facility] [place] Hematocrit (Bld) [Volume fraction] 37.9 % 36.0 - 46.0 % [facility] [place] Hemoglobin (Bld) [Mass/Vol] 11.4 g/dL Low 11.5 - 15.5 g/dL [facility] [place] Immature granulocytes (Bld) [#/Vol] <0.10 k/uL [facility] [place] Immature granulocytes/100 WBC (Bld) 0.3 % [facility] [place] Lymphocytes (Bld) [#/Vol] 1.91 10*3/uL 1.00 - 4.00 k/uL [facility] [place] Lymphocytes/100 WBC (Bld) 29.7 % [facility] [place] MCH (RBC) [Entitic mass] 25.3 pg Low 26.0 - 34.0 pg [facility] [place] MCHC (RBC) [Mass/Vol] 30.1 g/dL Low 30.5 - 36.0 g/dL [facility] [place] MCV (RBC) [Entitic vol] 84.0 fL 80.0 - 100.[address] [facility] Monocytes (Bld) [#/Vol] 0.46 10*3/uL <0.87 k/uL [facility] Monocytes/100 WBC (Bld) 7.2 % [facility] Neutrophils (Bld) [#/Vol] 3.74 10*3/uL 1.45 - 7.50 k/uL [facility] [place] Neutrophils/100 WBC (Bld) 58.1 % [facility] [place] Nucleated RBC (Bld) [#/Vol] <0.01 k/uL [facility] [place] Nucleated RBC/100 WBC (Bld) [Ratio] 0.0 /100 WBC [facility] [place] Platelet mean volume (Bld) [Entitic vol] 9.8 fL 9.0 - 12.7 fL [facility] [place] Platelets (Bld) [#/Vol] 372 10*3/uL 150 - 400 k/uL [facility] [place] RBC (Bld) [#/Vol] 4.51 10*6/uL 3.90 - 5.2 0 m/uL [facility] [place] WBC (Bld) [#/Vol] 6.43 10*3/uL 3.70 - 11. 00 k/uL [facility] [place] Comprehensive metabolic 2000 panelon 07-28-2022 Albumin [Mass/Vol] 4.3 g/dL 3.9 - 4.9 g/dL [facility] [place] ALP [Catalytic activity/Vol] 70 U/L 34 - 123 U/L [facility] [place] ALT [Catalytic activity/Vol] 29 U/L 7 - 38 U/L [facility] [place] Anion gap [Moles/Vol] 10 mmol/L 9 - 18 mmol/L [facility] [place] AST [Catalytic activity/Vol] 55 U/L High 13 - 35 U/L [facility] [place] Bilirubin [Mass/Vol] 0.2 mg/dL 0.2 - 1 .3 mg/dL [facility] [place] Calcium [Mass/Vol] 10.3 mg/dL High 8.5 - 10. 2 mg/dL [facility] [place] Chloride [Moles/Vol] 99 mmol/L 97 - 10 5 mmol/L [facility] [place] CO2 [Moles/Vol] 29 mmol/L 22 - 30 mmol/L [facility] [place] Creatinine [Mass/Vol] 0.62 mg/dL 0.58 - 0.96 mg/dL [facility] [place] Estimated Glomerular Filtration Rate 128 mL/min/1.73m >=60 mL/min/1.73m [facility] [place] Glucose [Mass/Vol] 88 mg/dL 74 - 99 mg/dL [facility] Potassium [Moles/Vol] 4.4 mmol/L 3.7 - 5.1 mmol/L [facility] [place] Protein [Mass/Vol] 7.7 g/dL 6.3 - 8.0 g/dL [facility] [place] Sodium [Moles/Vol] 138 mmol/L 136 - 144 mmol/L [facility] [place] Urea nitrogen [Mass/Vol] 11 mg/dL 7 - 21 mg/dL [facility] [place] CBC W Auto Differential pane l (Bld)on 07-25-2022 Basophils (Bld) [#/Vol] 0.04 10*3/uL <0.11 k/uL [facility] [place] Basophils/100 WBC (Bld) 0.6 % [facility] [place] Differential cell count method Nom (Bld) Auto [facility] [place] Eosinophils (Bld) [#/Vol] 0.25 10*3/uL <0.46 k/uL [facility] [place] Eosinophils/100 WBC (Bld) 3.8 % [facility] [place] Erythrocyte distribution width (RBC) [Ratio] 13.6 % 11.5 - 15.0 % [facility] [place] Hematocrit (Bld) [Volume fraction] 36.3 % 36.0 - 46.0 % [facility] [place] Hemoglobin (Bld) [Mass/Vol] 11.1 g/dL Low 11.5 - 15.5 g/dL [facility] [place] Immature granulocytes (Bld) [#/Vol] 0.03 10*3/uL <0.10 k/uL [facility] [place] Immature granulocytes/100 WBC (Bld) 0.5 % [facility] [place] Lymphocytes (Bld) [#/Vol] 2.38 10*3/uL 1.00 - 4.00 k/uL [facility] [place] Lymphocytes/100 WBC (Bld) 36.4 % [facility] [place] MCH (RBC) [Entitic mass] 25.8 pg Low 26.0 - 34.0 pg [facility] [place] MCHC (RBC) [Mass/Vol] 30.6 g/dL 30.5 - 36.0 g/dL [facility] [place] MCV (RBC) [Entitic vol] 84.2 fL 80.0 - 100.0 fL [facility] [place] Monocytes (Bld) [#/Vol] 0.62 10*3/uL <0.87 k/uL [facility] [place] Monocytes/100 WBC (Bld) 9.5 % [facility] [place] Neutrophils (Bld) [#/Vol] 3.21 10*3/uL 1.45 - 7.50 k/uL [facility] [place] Neutrophils/100 WBC (Bld) 49.2 % [facility] [place] Nucleated RBC (Bld) [#/Vol] <0.01 k/uL [facility] [place] Nucleated RBC/100 WBC (Bld) [Ratio] 0.0 /100 WBC [facility] [place] Platelet mean volume (Bld) [Entitic vol] 9.8 fL 9.0 - 12.7 fL [facility] [place] Platelets (Bld) [#/Vol] 366 10*3/uL 150 - 400 k/uL [facility] [place] RBC (Bld) [#/Vol] 4.31 10*6/uL 3.90 - 5.2 0 m/uL [facility] [place] WBC (Bld) [#/Vol] 6.53 10*3/uL 3.70 - 11. 00 k/uL [facility] [place] Comprehensive metabolic 2000 panelon 07-25-2022 Albumin [Mass/Vol] 4.1 g/dL 3.9 - 4.9 g/dL [facility] [place] ALP [Catalytic activity/Vol] 72 U/L 34 - 123 U/L [facility] [place] ALT [Catalytic activity/Vol] 19 U/L 7 - 38 U/L [facility] [place] Anion gap [Moles/Vol] 9 mmol/L 9 - 18 mmol/L [facility] [place] AST [Catalytic activity/Vol] 51 U/L High 13 - 35 U/L [facility] [place] Bilirubin [Mass/Vol] 0.3 mg/dL 0.2 - 1 .3 mg/dL [facility] [place] Calcium [Mass/Vol] 10.0 mg/dL 8.5 - 10. 2 mg/dL [facility] [place] Chloride [Moles/Vol] 99 mmol/L 97 - 10 5 mmol/L [facility] [place] CO2 [Moles/Vol] 31 mmol/L High 22 - 30 mmol/L [facility] [place] Creatinine [Mass/Vol] 0.56 mg/dL Low 0.58 - 0.96 mg/dL [facility] [place] Estimated Glomerular Filtration Rate 131 mL/min/1.73m >=60 mL/min/1.73m [facility] [place] Glucose [Mass/Vol] 83 mg/dL 74 - 99 mg/dL [facility] Potassium [Moles/Vol] 4.5 mmol/L 3.7 - 5.1 mmol/L [facility] [place] Protein [Mass/Vol] 7.3 g/dL 6.3 - 8.0 g/dL [facility] [place] Sodium [Moles/Vol] 139 mmol/L 136 - 144 mmol/L [facility] [place] Urea nitrogen [Mass/Vol] 11 mg/dL 7 - 21 mg/dL [facility] [place] MAGNESIUM BLDon 07-25-2022 Magnesium [Mass/Vol] 1.8 mg/dL 1.7 - 2 .3 mg/dL [facility] [place] CBC W Auto Differential pane l (Bld)on 07-21-2022 Basophils (Bld) [#/Vol] 0.04 10*3/uL <0.11 k/uL [facility] [place] Basophils/100 WBC (Bld) 0.6 % [facility] [place] Differential cell count method Nom (Bld) Auto [facility] [place] Eosinophils (Bld) [#/Vol] 0.19 10*3/uL <0.46 k/uL [facility] [place] Eosinophils/100 WBC (Bld) 2.7 % [facility] [place] Erythrocyte distribution width (RBC) [Ratio] 14.0 % 11.5 - 15.0 % [facility] [place] Hematocrit (Bld) [Volume fraction] 37.7 % 36.0 - 46.0 % [facility] [place] Hemoglobin (Bld) [Mass/Vol] 11.3 g/dL Low 11.5 - 15.5 g/dL [facility] [place] Immature granulocytes (Bld) [#/Vol] <0.10 k/uL [facility] [place] Immature granulocytes/100 WBC (Bld) 0.3 % [facility] [place] Lymphocytes (Bld) [#/Vol] 2.86 10*3/uL 1.00 - 4.00 k/uL [facility] [place] Lymphocytes/100 WBC (Bld) 40.3 % [facility] [place] MCH (RBC) [Entitic mass] 25.5 pg Low 26.0 - 34.0 pg [facility] [place] MCHC (RBC) [Mass/Vol] 30.0 g/dL Low 30.5 - 36.0 g/dL [facility] [place] MCV (RBC) [Entitic vol] 84.9 fL 80.0 - 100.0 fL [facility] [place] Monocytes (Bld) [#/Vol] 0.64 10*3/uL <0.87 k/uL [facility] [place] Monocytes/100 WBC (Bld) 9.0 % [facility] [place] Neutrophils (Bld) [#/Vol] 3.34 10*3/uL 1.45 - 7.50 k/uL [facility] [place] Neutrophils/100 WBC (Bld) 47.1 % [facility] [place] Nucleated RBC (Bld) [#/Vol] <0.01 k/uL [facility] [place] Nucleated RBC/100 WBC (Bld) [Ratio] 0.0 /100 WBC [facility] [place] Platelet mean volume (Bld) [Entitic vol] 10.1 fL 9.0 - 12.7 fL [facility] [place] Platelets (Bld) [#/Vol] 374 10*3/uL 150 - 400 k/uL [facility] [place] RBC (Bld) [#/Vol] 4.44 10*6/uL 3.90 - 5.2 0 m/uL [facility] [place] WBC (Bld) [#/Vol] 7.09 10*3/uL 3.70 - 11. 00 k/uL [facility] [place] Comprehensive metabolic 2000 panelon 07-21-2022 Albumin [Mass/Vol] 4.0 g/dL 3.9 - 4.9 g/dL [facility] [place] ALP [Catalytic activity/Vol] 76 U/L 34 - 123 U/L [facility] [place] ALT [Catalytic activity/Vol] 12 U/L 7 - 38 U/L [facility] [place] Anion gap [Moles/Vol] 15 mmol/L 9 - 18 mmol/L [facility] [place] AST [Catalytic activity/Vol] 22 U/L 13 - 35 U/L [facility] [place] Bilirubin [Mass/Vol] 0.2 mg/dL 0.2 - 1 .3 mg/dL [facility] [place] Calcium [Mass/Vol] 9.9 mg/dL 8.5 - 10. 2 mg/dL [facility] [place] Chloride [Moles/Vol] 101 mmol/L 97 - 10 5 mmol/L [facility] [place] CO2 [Moles/Vol] 25 mmol/L 22 - 30 mmol/L [facility] [place] Creatinine [Mass/Vol] 0.53 mg/dL Low 0.58 - 0.96 mg/dL [facility] [place] Estimated Glomerular Filtration Rate 133 mL/min/1.73m >=60 mL/min/1.73m [facility] [place] Glucose [Mass/Vol] 69 mg/dL Low 74 - 99 mg/dL [facility] Potassium [Moles/Vol] 4.3 mmol/L 3.7 - 5.1 mmol/L [facility] [place] Protein [Mass/Vol] 7.4 g/dL 6.3 - 8.0 g/dL [facility] [place] Sodium [Moles/Vol] 141 mmol/L 136 - 144 mmol/L [facility] [place] Urea nitrogen [Mass/Vol] 14 mg/dL 7 - 21 mg/dL [facility] [place] CBC W Auto Differential pane l (Bld)on 07-18-2022 Basophils (Bld) [#/Vol] 0.06 10*3/uL <0.11 k/uL [facility] [place] Basophils/100 WBC (Bld) 0.9 % [facility] [place] Differential cell count method Nom (Bld) Auto [facility] [place] Eosinophils (Bld) [#/Vol] 0.21 10*3/uL <0.46 k/uL [facility] [place] Eosinophils/100 WBC (Bld) 3.0 % [facility] [place] Erythrocyte distribution width (RBC) [Ratio] 13.9 % 11.5 - 15.0 % [facility] [place] Hematocrit (Bld) [Volume fraction] 36.3 % 36.0 - 46.0 % [facility] [place] Hemoglobin (Bld) [Mass/Vol] 11.0 g/dL Low 11.5 - 15.5 g/dL [facility] [place] Immature granulocytes (Bld) [#/Vol] <0.10 k/uL [facility] [place] Immature granulocytes/100 WBC (Bld) 0.1 % [facility] [place] Lymphocytes (Bld) [#/Vol] 3.19 10*3/uL 1.00 - 4.00 k/uL [facility] [place] Lymphocytes/100 WBC (Bld) 45.9 % [facility] [place] MCH (RBC) [Entitic mass] 25.3 pg Low 26.0 - 34.0 pg [facility] [place] MCHC (RBC) [Mass/Vol] 30.3 g/dL Low 30.5 - 36.0 g/dL [facility] [place] MCV (RBC) [Entitic vol] 83.6 fL 80.0 - 100.0 fL [facility] [place] Monocytes (Bld) [#/Vol] 0.65 10*3/uL <0.87 k/uL [facility] [place] Monocytes/100 WBC (Bld) 9.4 % [facility] [place] Neutrophils (Bld) [#/Vol] 2.83 10*3/uL 1.45 - 7.50 k/uL [facility] [place] Neutrophils/100 WBC (Bld) 40.7 % [facility] [place] Nucleated RBC (Bld) [#/Vol] <0.01 k/uL [facility] [place] Nucleated RBC/100 WBC (Bld) [Ratio] 0.0 /100 WBC [facility] [place] Platelet mean volume (Bld) [Entitic vol] 9.5 fL 9.0 - 12.7 fL [facility] [place] Platelets (Bld) [#/Vol] 437 10*3/uL High 150 - 400 k/uL [facility] [place] RBC (Bld) [#/Vol] 4.34 10*6/uL 3.90 - 5.2 0 m/uL [facility] [place] WBC (Bld) [#/Vol] 6.95 10*3/uL 3.70 - 11. 00 k/uL [facility] [place] Comprehensive metabolic 2000 panelon 07-18-2022 Albumin [Mass/Vol] 4.0 g/dL 3.9 - 4.9 g/dL [facility] [place] ALP [Catalytic activity/Vol] 83 U/L 34 - 123 U/L [facility] [place] ALT [Catalytic activity/Vol] 15 U/L 7 - 38 U/L [facility] [place] Anion gap [Moles/Vol] 8 mmol/L Low 9 - 18 mmol/L [facility] [place] AST [Catalytic activity/Vol] 34 U/L 13 - 35 U/L [facility] [place] Bilirubin [Mass/Vol] 0.2 mg/dL 0.2 - 1 .3 mg/dL [facility] [place] Calcium [Mass/Vol] 10.3 mg/dL High 8.5 - 10. 2 mg/dL [facility] [place] Chloride [Moles/Vol] 100 mmol/L 97 - 10 5 mmol/L [facility] [place] CO2 [Moles/Vol] 31 mmol/L High 22 - 30 mmol/L [facility] [place] Creatinine [Mass/Vol] 0.77 mg/dL 0.58 - 0.96 mg/dL [facility] [place] Estimated Glomerular Filtration Rate 111 mL/min/1.73m >=60 mL/min/1.73m [facility] [place] Glucose [Mass/Vol] 84 mg/dL 74 - 99 mg/dL [facility] Potassium [Moles/Vol] 4.4 mmol/L 3.7 - 5.1 mmol/L [facility] [place] Protein [Mass/Vol] 7.7 g/dL 6.3 - 8.0 g/dL [facility] [place] Sodium [Moles/Vol] 139 mmol/L 136 - 144 mmol/L [facility] [place] Urea nitrogen [Mass/Vol] 14 mg/dL 7 - 21 mg/dL [facility] [place] MAGNESIUM BLDon 07-18-2022 Magnesium [Mass/Vol] 1.8 mg/dL 1.7 - 2 .3 mg/dL [facility] [place] CBC W Auto Differential pane l (Bld)on 07-14-2022 Basophils (Bld) [#/Vol] 0.07 10*3/uL <0.11 k/uL [facility] [place] Basophils/100 WBC (Bld) 1.0 % [facility] [place] Differential cell count method Nom (Bld) Auto [facility] [place] Eosinophils (Bld) [#/Vol] 0.19 10*3/uL <0.46 k/uL [facility] [place] Eosinophils/100 WBC (Bld) 2.8 % [facility] [place] Erythrocyte distribution width (RBC) [Ratio] 14.0 % 11.5 - 15.0 % [facility] [place] Hematocrit (Bld) [Volume fraction] 37.6 % 36.0 - 46.0 % [facility] [place] Hemoglobin (Bld) [Mass/Vol] 11.1 g/dL Low 11.5 - 15.5 g/dL [facility] [place] Immature granulocytes (Bld) [#/Vol] 0.03 10*3/uL <0.10 k/uL [facility] [place] Immature granulocytes/100 WBC (Bld) 0.4 % [facility] [place] Lymphocytes (Bld) [#/Vol] 2.25 10*3/uL 1.00 - 4.00 k/uL [facility] [place] Lymphocytes/100 WBC (Bld) 32.8 % [facility] [place] MCH (RBC) [Entitic mass] 25.3 pg Low 26.0 - 34.0 pg [facility] [place] MCHC (RBC) [Mass/Vol] 29.5 g/dL Low 30.5 - 36.0 g/dL [facility] [place] MCV (RBC) [Entitic vol] 85.6 fL 80.0 - 100.0 fL [facility] [place] Monocytes (Bld) [#/Vol] 0.48 10*3/uL <0.87 k/uL [facility] [place] Monocytes/100 WBC (Bld) 7.0 % [facility] [place] Neutrophils (Bld) [#/Vol] 3.85 10*3/uL 1.45 - 7.50 k/uL [facility] [place] Neutrophils/100 WBC (Bld) 56.0 % [facility] [place] Nucleated RBC (Bld) [#/Vol] <0.01 k/uL [facility] [place] Nucleated RBC/100 WBC (Bld) [Ratio] 0.0 /100 WBC [facility] [place] Platelet mean volume (Bld) [Entitic vol] 9.3 fL 9.0 - 12.7 fL [facility] [place] Platelets (Bld) [#/Vol] 507 10*3/uL High 150 - 400 k/uL [facility] [place] RBC (Bld) [#/Vol] 4.39 10*6/uL 3.90 - 5.2 0 m/uL [facility] [place] WBC (Bld) [#/Vol] 6.87 10*3/uL 3.70 - 11. 00 k/uL [facility] [place] Comprehensive metabolic 2000 panelon 07-14-2022 Albumin [Mass/Vol] 4.1 g/dL 3.9 - 4.9 g/dL [facility] [place] ALP [Catalytic activity/Vol] 88 U/L 34 - 123 U/L [facility] [place] ALT [Catalytic activity/Vol] 13 U/L 7 - 38 U/L [facility] [place] Anion gap [Moles/Vol] 10 mmol/L 9 - 18 mmol/L [facility] [place] AST [Catalytic activity/Vol] 33 U/L 13 - 35 U/L [facility] [place] Bilirubin [Mass/Vol] 0.2 mg/dL 0.2 - 1 .3 mg/dL [facility] [place] Calcium [Mass/Vol] 10.3 mg/dL High 8.5 - 10. 2 mg/dL [facility] [place] Chloride [Moles/Vol] 100 mmol/L 97 - 10 5 mmol/L [facility] [place] CO2 [Moles/Vol] 29 mmol/L 22 - 30 mmol/L [facility] [place] Creatinine [Mass/Vol] 0.65 mg/dL 0.58 - 0.96 mg/dL [facility] [place] Estimated Glomerular Filtration Rate 126 mL/min/1.73m >=60 mL/min/1.73m [facility] [place] Glucose [Mass/Vol] 85 mg/dL 74 - 99 mg/dL [facility] Potassium [Moles/Vol] 4.5 mmol/L 3.7 - 5.1 mmol/L [facility] [place] Protein [Mass/Vol] 7.9 g/dL 6.3 - 8.0 g/dL [facility] [place] Sodium [Moles/Vol] 139 mmol/L 136 - 144 mmol/L [facility] [place] Urea nitrogen [Mass/Vol] 18 mg/dL 7 - 21 mg/dL [facility] [place] ALKALINE PHOSPHATASEon 07-12 ALP [Catalytic activity/Vol] 85 U/L 34 - 123 U/L [facility] [place] CBC W Auto Differential pane l (Bld)on 07-11-2022 Basophils (Bld) [#/Vol] 0.07 10*3/uL <0.11 k/uL [facility] [place] Basophils/100 WBC (Bld) 0.9 % [facility] [place] Differential cell count method Nom (Bld) Auto [facility] [place] Eosinophils (Bld) [#/Vol] 0.27 10*3/uL <0.46 k/uL [facility] [place] Eosinophils/100 WBC (Bld) 3.6 % [facility] [place] Erythrocyte distribution width (RBC) [Ratio] 14.2 % 11.5 - 15.0 % [facility] [place] Hematocrit (Bld) [Volume fraction] 37.1 % 36.0 - 46.0 % [facility] [place] Hemoglobin (Bld) [Mass/Vol] 11.1 g/dL Low 11.5 - 15.5 g/dL [facility] [place] Immature granulocytes (Bld) [#/Vol] 0.07 10*3/uL <0.10 k/uL [facility] [place] Immature granulocytes/100 WBC (Bld) 0.9 % [facility] [place] Lymphocytes (Bld) [#/Vol] 2.57 10*3/uL 1.00 - 4.00 k/uL [facility] [place] Lymphocytes/100 WBC (Bld) 33.9 % [facility] [place] MCH (RBC) [Entitic mass] 25.7 pg Low 26.0 - 34.0 pg [facility] [place] MCHC (RBC) [Mass/Vol] 29.9 g/dL Low 30.5 - 36.0 g/dL [facility] [place] MCV (RBC) [Entitic vol] 85.9 fL 80.0 - 100.0 fL [facility] [place] Monocytes (Bld) [#/Vol] 0.51 10*3/uL <0.87 k/uL [facility] [place] Monocytes/100 WBC (Bld) 6.7 % [facility] [place] Neutrophils (Bld) [#/Vol] 4.08 10*3/uL 1.45 - 7.50 k/uL [facility] [place] Neutrophils/100 WBC (Bld) 54.0 % [facility] [place] Nucleated RBC (Bld) [#/Vol] <0.01 k/uL [facility] [place] Nucleated RBC/100 WBC (Bld) [Ratio] 0.0 /100 WBC [facility] [place] Platelet mean volume (Bld) [Entitic vol] 9.2 fL 9.0 - 12.7 fL [facility] [place] Platelets (Bld) [#/Vol] 554 10*3/uL High 150 - 400 k/uL [facility] [place] RBC (Bld) [#/Vol] 4.32 10*6/uL 3.90 - 5.2 0 m/uL [facility] [place] WBC (Bld) [#/Vol] 7.57 10*3/uL 3.70 - 11. 00 k/uL [facility] [place] Comprehensive metabolic 2000 panelon 07-11-2022 Albumin [Mass/Vol] 4.0 g/dL 3.9 - 4.9 g/dL [facility] [place] ALP [Catalytic activity/Vol] 87 U/L 34 - 123 U/L [facility] [place] ALT [Catalytic activity/Vol] 17 U/L 7 - 38 U/L [facility] [place] Anion gap [Moles/Vol] 12 mmol/L 9 - 18 mmol/L [facility] [place] AST [Catalytic activity/Vol] 25 U/L 13 - 35 U/L [facility] [place] Bilirubin [Mass/Vol] 0.2 mg/dL 0.2 - 1 .3 mg/dL [facility] [place] Calcium [Mass/Vol] 10.0 mg/dL 8.5 - 10. 2 mg/dL [facility] [place] Chloride [Moles/Vol] 103 mmol/L 97 - 10 5 mmol/L [facility] [place] CO2 [Moles/Vol] 27 mmol/L 22 - 30 mmol/L [facility] [place] Creatinine [Mass/Vol] 0.65 mg/dL 0.58 - 0.96 mg/dL [facility] [place] Estimated Glomerular Filtration Rate 119 mL/min/1.73m >=60 mL/min/1.73m [facility] [place] Glucose [Mass/Vol] 81 mg/dL 74 - 99 mg/dL [facility] Potassium [Moles/Vol] 4.5 mmol/L 3.7 - 5.1 mmol/L [facility] [place] Protein [Mass/Vol] 7.6 g/dL 6.3 - 8.0 g/dL [facility] [place] Sodium [Moles/Vol] 142 mmol/L 136 - 144 mmol/L [facility] [place] Urea nitrogen [Mass/Vol] 14 mg/dL 7 - 21 mg/dL [facility] [place] MAGNESIUM BLDon 07-11-2022 Magnesium [Mass/Vol] 2.0 mg/dL 1.7 - 2 .3 mg/dL [facility] [place] Basic Metabolic Panelon Anion gap [Moles/Vol] 10 mmol/L 9 - 17 mmol/L [facility] Calcium [Mass/Vol] 9.3 mg/dL 8.6 - 10. 4 mg/dL [facility] Chloride [Moles/Vol] 100 mmol/L 98 - 10 7 mmol/L [facility] CO2 [Moles/Vol] 23 mmol/L 20 - 31 mmol/L [facility] Creatinine [Mass/Vol] 0.71 mg/dL 0.50 - 0.90 mg/dL [facility] GFR/1.73 sq M.predicted MDRD (S/P/Bld) [Vol rate/Area] - PINF [facility] Comment on above: Effective Apr 04, 2022 These results are not intended for use in patients <18 years of age. eGFR results are calculated without a race factor using the 2020 CKD-EPI equation. Careful clinical correlation is recommended, particularly when comparing to results calculated using previous equations. The CKD-EPI equation is less accurate in patients with extremes of muscle mass, extra-renal metabolism of creatine, excessive creatine ingestion, or following therapy that affects renal tubular secretion. Glucose [Mass/Vol] 99 mg/dL 70 - 99 mg/dL [facility] Interpretation and review of laboratory results Abnormal [facility] Potassium [Moles/Vol] 4.4 mmol/L 3.7 - 5.3 mmol/L [facility] Sodium [Moles/Vol] 133 mmol/L Low 135 - 144 mmol/L [facility] Urea nitrogen (BldV) [Mass/Vol] 19 mg/dL 6 - 20 mg/dL [facility] Basic Metabolic Panelon Anion gap [Moles/Vol] 11 mmol/L 9 - 17 mmol/L [facility] Calcium [Mass/Vol] 9.2 mg/dL 8.6 - 10. 4 mg/dL [facility] Chloride [Moles/Vol] 100 mmol/L 98 - 10 7 mmol/L [facility] CO2 [Moles/Vol] 29 mmol/L 20 - 31 mmol/L [facility] Creatinine [Mass/Vol] 0.57 mg/dL 0.50 - 0.90 mg/dL [facility] GFR/1.73 sq M.predicted MDRD (S/P/Bld) [Vol rate/Area] - PINF [facility] Comment on above: Effective Apr 04, 2022 These results are not intended for use in patients <18 years of age. eGFR results are calculated without a race factor using the 2020 CKD-EPI equation. Careful clinical correlation is recommended, particularly when comparing to results calculated using previous equations. The CKD-EPI equation is less accurate in patients with extremes of muscle mass, extra-renal metabolism of creatine, excessive creatine ingestion, or following therapy that affects renal tubular secretion. Glucose [Mass/Vol] 92 mg/dL 70 - 99 mg/dL [facility] Potassium [Moles/Vol] 4.3 mmol/L 3.7 - 5.3 mmol/L [facility] Sodium [Moles/Vol] 140 mmol/L 135 - 144 mmol/L [facility] Urea nitrogen (BldV) [Mass/Vol] 12 mg/dL 6 - 20 mg/dL [facility] Basic Metabolic Panelon 01-0 Anion gap [Moles/Vol] 9 mmol/L 9 - 17 mmol/L [facility] Calcium [Mass/Vol] 9.2 mg/dL 8.6 - 10. 4 mg/dL [facility] Chloride [Moles/Vol] 96 mmol/L Low 98 - 10 7 mmol/L [facility] CO2 [Moles/Vol] 29 mmol/L 20 - 31 mmol/L [facility] Creatinine [Mass/Vol] 0.48 mg/dL Low 0.50 - 0.90 mg/dL [facility] GFR/1.73 sq M.predicted MDRD (S/P/Bld) [Vol rate/Area] - PINF [facility] Comment on above: Effective Apr 04, 2022 These results are not intended for use in patients <18 years of age. eGFR results are calculated without a race factor using the 2020 CKD-EPI equation. Careful clinical correlation is recommended, particularly when comparing to results calculated using previous equations. The CKD-EPI equation is less accurate in patients with extremes of muscle mass, extra-renal metabolism of creatine, excessive creatine ingestion, or following therapy that affects renal tubular secretion. Glucose [Mass/Vol] 89 mg/dL 70 - 99 mg/dL [facility] Interpretation and review of laboratory results Abnormal [facility] Potassium [Moles/Vol] 3.7 mmol/L 3.7 - 5.3 mmol/L [facility] Sodium [Moles/Vol] 134 mmol/L Low 135 - 144 mmol/L [facility] Urea nitrogen (BldV) [Mass/Vol] 10 mg/dL 6 - 20 mg/dL [facility] CBC with Auto Differentialon 07-04-2022 Absolute Eos # 0.30 [place] [facility] Absolute Immature Granulocyte 0.05 [facility] Absolute Lymph # 2.41 [facility] Absolute Branch # 0.61 [facility] Basophils (Bld) [#/Vol] 0.07 10*3/uL [facility] Basophils/100 WBC (Bld) 1 % 0 - 2 % [facility] Eosinophils/100 WBC (Bld) 4 % 1 - 4 % [facility] Hematocrit (Bld) [Volume fraction] 31.8 % Low 36.3 - 47.1 % [facility] Hemoglobin (Bld) [Mass/Vol] 9.4 g/dL Low 11.9 - 15.1 g/dL [facility] Immature granulocytes/100 WBC (Bld) 1 % High 0 [facility] Interpretation and review of laboratory results Abnormal [facility] Lymphocytes/100 WBC (Bld) 31 % 24 - 43 % [facility] MCH (RBC) [Entitic mass] 25.9 pg 25.2 - 33.5 pg [facility] MCHC (RBC) [Mass/Vol] 29.6 g/dL 28.4 - 34.8 g/dL [facility] MCV (RBC) [Entitic vol] 87.6 fL 82.6 - 102.9 fL [facility] Monocytes/100 WBC (Bld) 8 % 3 - 12 % [facility] NRBC Automated 0.0 0.0 per 100 WBC [facility] Platelet distribution width (Bld) [Ratio] 13.3 % 11.8 - 14.4 % [facility] Platelet mean volume (Bld) [Entitic vol] 9.0 fL 8.1 - 13.5 fL [facility] Platelets (Bld) [#/Vol] 467 10*3/uL High [facility] RBC (Bld) [#/Vol] 3.63 10*6/uL Low 3.95 - 5.1 1 m/uL [facility] Segmented neutrophils/100 WBC (Bld) 55 % 36 - 65 % [facility] Segs Absolute 4.29 [facility] WBC (Bld) [#/Vol] 7.7 10*3/uL [facility] Basic Metabolic Panelon -0 Anion gap [Moles/Vol] 11 mmol/L 9 - 17 mmol/L [facility] Calcium [Mass/Vol] 8.9 mg/dL 8.6 - 10. 4 mg/dL [facility] Chloride [Moles/Vol] 96 mmol/L Low 98 - 10 7 mmol/L [facility] CO2 [Moles/Vol] 31 mmol/L 20 - 31 mmol/L [facility] Creatinine [Mass/Vol] 0.61 mg/dL 0.50 - 0.90 mg/dL [facility] GFR/1.73 sq M.predicted MDRD (S/P/Bld) [Vol rate/Area] - PINF [facility] Comment on above: Effective Apr 04, 2022 These results are not intended for use in patients <18 years of age. eGFR results are calculated without a race factor using the 2020 CKD-EPI equation. Careful clinical correlation is recommended, particularly when comparing to results calculated using previous equations. The CKD-EPI equation is less accurate in patients with extremes of muscle mass, extra-renal metabolism of creatine, excessive creatine ingestion, or following therapy that affects renal tubular secretion. Glucose [Mass/Vol] 92 mg/dL 70 - 99 mg/dL [facility] Interpretation and review of laboratory results Abnormal [facility] Potassium [Moles/Vol] 4.0 mmol/L 3.7 - 5.3 mmol/L [facility] Sodium [Moles/Vol] 138 mmol/L 135 - 144 mmol/L [facility] Urea nitrogen (BldV) [Mass/Vol] 11 mg/dL 6 - 20 mg/dL [facility] CBC with Auto Differentialon 07-03-2022 Absolute Eos # 0.28 [place] [facility] Absolute Immature Granulocyte 0.05 [facility] Absolute Lymph # 2.12 [facility] Absolute Branch # 0.70 [facility] Basophils (Bld) [#/Vol] 0.05 10*3/uL [facility] Basophils/100 WBC (Bld) 1 % 0 - 2 % [facility] Eosinophils/100 WBC (Bld) 4 % 1 - 4 % [facility] Hematocrit (Bld) [Volume fraction] 29.5 % Low 36.3 - 47.1 % [facility] Hemoglobin (Bld) [Mass/Vol] 8.9 g/dL Low 11.9 - 15.1 g/dL [facility] Immature granulocytes/100 WBC (Bld) 1 % High 0 [facility] Interpretation and review of laboratory results Abnormal [facility] Lymphocytes/100 WBC (Bld) 30 % 24 - 43 % [facility] MCH (RBC) [Entitic mass] 26.0 pg 25.2 - 33.5 pg [facility] MCHC (RBC) [Mass/Vol] 30.2 g/dL 28.4 - 34.8 g/dL [facility] MCV (RBC) [Entitic vol] 86.3 fL 82.6 - 102.9 fL [facility] Monocytes/100 WBC (Bld) 10 % 3 - 12 % [facility] NRBC Automated 0.0 0.0 per 100 WBC [facility] Platelet distribution width (Bld) [Ratio] 13.4 % 11.8 - 14.4 % [facility] Platelet mean volume (Bld) [Entitic vol] 9.2 fL 8.1 - 13.5 fL [facility] Platelets (Bld) [#/Vol] 413 10*3/uL [facility] RBC (Bld) [#/Vol] 3.42 10*6/uL Low 3.95 - 5.1 1 m/uL [facility] Segmented neutrophils/100 WBC (Bld) 54 % 36 - 65 % [facility] Segs Absolute 3.81 [facility] WBC (Bld) [#/Vol] 7.0 10*3/uL [facility] Basic Metabolic Panelon 12-3 Anion gap [Moles/Vol] 10 mmol/L 9 - 17 mmol/L [facility] Calcium [Mass/Vol] 8.8 mg/dL 8.6 - 10. 4 mg/dL [facility] Chloride [Moles/Vol] 95 mmol/L Low 98 - 10 7 mmol/L [facility] CO2 [Moles/Vol] 29 mmol/L 20 - 31 mmol/L [facility] Creatinine [Mass/Vol] 0.55 mg/dL 0.50 - 0.90 mg/dL [facility] GFR/1.73 sq M.predicted MDRD (S/P/Bld) [Vol rate/Area] - PINF [facility] Comment on above: Effective Apr 04, 2022 These results are not intended for use in patients <18 years of age. eGFR results are calculated without a race factor using the 2020 CKD-EPI equation. Careful clinical correlation is recommended, particularly when comparing to results calculated using previous equations. The CKD-EPI equation is less accurate in patients with extremes of muscle mass, extra-renal metabolism of creatine, excessive creatine ingestion, or following therapy that affects renal tubular secretion. Glucose [Mass/Vol] 109 mg/dL High 70 - 99 mg/dL [facility] Interpretation and review of laboratory results Abnormal [facility] Potassium [Moles/Vol] 3.7 mmol/L 3.7 - 5.3 mmol/L [facility] Sodium [Moles/Vol] 134 mmol/L Low 135 - 144 mmol/L [facility] Urea nitrogen (BldV) [Mass/Vol] 10 mg/dL 6 - 20 mg/dL [facility] CBC with Auto Differentialon 07-02-2022 Absolute Eos # 0.35 [facility] Absolute Immature Granulocyte 0.05 [facility] Absolute Lymph # 2.11 [facility] Absolute Branch # 0.70 [facility] Basophils (Bld) [#/Vol] 0.05 10*3/uL [facility] Basophils/100 WBC (Bld) 1 % 0 - 2 % [facility] Eosinophils/100 WBC (Bld) 5 % High 1 - 4 % [facility] Hematocrit (Bld) [Volume fraction] 30.0 % Low 36.3 - 47.1 % [facility] Hemoglobin (Bld) [Mass/Vol] 9.0 g/dL Low 11.9 - 15.1 g/dL [facility] Immature granulocytes/100 WBC (Bld) 1 % High 0 [facility] Interpretation and review of laboratory results Abnormal [facility] Lymphocytes/100 WBC (Bld) 29 % 24 - 43 % [facility] MCH (RBC) [Entitic mass] 26.1 pg 25.2 - 33.5 pg [facility] MCHC (RBC) [Mass/Vol] 30.0 g/dL 28.4 - 34.8 g/dL [facility] MCV (RBC) [Entitic vol] 87.0 fL 82.6 - 102.9 fL [facility] Monocytes/100 WBC (Bld) 10 % 3 - 12 % [facility] NRBC Automated 0.0 0.0 per 100 WBC [facility] Platelet distribution width (Bld) [Ratio] 13.5 % 11.8 - 14.4 % [facility] Platelet mean volume (Bld) [Entitic vol] 9.4 fL 8.1 - 13.5 fL [facility] Platelets (Bld) [#/Vol] 376 10*3/uL [facility] RBC (Bld) [#/Vol] 3.45 10*6/uL Low 3.95 - 5.1 1 m/uL [facility] Segmented neutrophils/100 WBC (Bld) 55 % 36 - 65 % [facility] Segs Absolute 4.04 [facility] WBC (Bld) [#/Vol] 7.3 10*3/uL [facility] Basic Metabolic Panelon 12-3 Anion gap [Moles/Vol] 12 mmol/L 9 - 17 mmol/L [facility] Calcium [Mass/Vol] 8.9 mg/dL 8.6 - 10. 4 mg/dL [facility] Chloride [Moles/Vol] 94 mmol/L Low 98 - 10 7 mmol/L [facility] CO2 [Moles/Vol] 29 mmol/L 20 - 31 mmol/L [facility] Creatinine [Mass/Vol] 0.46 mg/dL Low 0.50 - 0.90 mg/dL [facility] GFR/1.73 sq M.predicted MDRD (S/P/Bld) [Vol rate/Area] - PINF [facility] Comment on above: Effective Apr 04, 2022 These results are not intended for use in patients <18 years of age. eGFR results are calculated without a race factor using the 2020 CKD-EPI equation. Careful clinical correlation is recommended, particularly when comparing to results calculated using previous equations. The CKD-EPI equation is less accurate in patients with extremes of muscle mass, extra-renal metabolism of creatine, excessive creatine ingestion, or following therapy that affects renal tubular secretion. Glucose [Mass/Vol] 106 mg/dL High 70 - 99 mg/dL [facility] Interpretation and review of laboratory results Abnormal [facility] Potassium [Moles/Vol] 4.1 mmol/L 3.7 - 5.3 mmol/L [facility] Sodium [Moles/Vol] 135 mmol/L 135 - 144 mmol/L [facility] Urea nitrogen (BldV) [Mass/Vol] 9 mg/dL 6 - 20 mg/dL [facility] VL DUP LOWER EXTREMITY VENOU S BILATERALon 07-01-2022 Skyler Hardin MD - 07/01/2022 [facility] Vascular Lower Extremities DVT Study Procedure Patient Name FERMÍN Date of Study 06/30/2022 KAYLEEN Date of 1995 Gender Female Age 26 year(s) Race Room Number 0138 Corporate ID [id number] # Patient Acct [id number] # MR # [id number] [place] Kacie Thomas RVT Interpreting Physician Wilfred Holland Referring Referring Physician Ember Griffiths Nurse Practitioner Procedure Type of Study: Veins: Lower Extremities DVT Study, Venous Scan Lower Bilateral. Indications for Study:R/O DVT. Patient Status:In Patient. Technical Quality:Adequate visualization. Limitation reason:deep vessels . Conclusions Summary Simultaneous real time imaging utilizing B-Mode, color doppler and spectral waveform analysis was performed on the bilateral lower extremities for venous examination of the deep and superficial systems. Findings are: Right: No evidence of superficial or deep venous thrombosis in the right lower extremity. Left: No evidence of superficial or deep venous thrombosis in the left lower extremity. Signature Findings: Right Impression: Left Impression: The common femoral, femoral, The common femoral, femoral, popliteal and tibial veins popliteal and tibial veins demonstrate normal compressibility demonstrate normal compressibility and augmentation. and augmentation. Normal compressibility of the great Normal compressibility of the great saphenous vein. saphenous vein. Normal compressibility of the small Normal compressibility of the small saphenous vein. saphenous vein. Enlarged lymph nodes are noted at the left groin level. Risk Factors - The patient's risk factor(s) include: obesity. Velocities are measured in cm/s ; Diameters are measured in cm Right Lower Extremities DVT Study Measurements Right 2D Measurements + +------ ----+ +- --------- + !Location !Visualized!Compressib ility!Thrombosis! + +------ ----+ +- --------- + !Common Femoral !Yes !Yes !None ! + +------ ----+ +- --------- + !Prox Femoral !Yes !Yes !None ! + +------ ----+ +- --------- + !Mid Femoral !Yes !Yes !None ! + +------ ----+ +- --------- + !Dist Femoral !Yes !Yes !None ! + +------ ----+ +- --------- + !Deep Femoral !No ! ! ! + +------ ----+ +- --------- + !Popliteal !Yes !Yes !None ! + +------ ----+ +- --------- + !Sapheno Femoral Junction !Yes !Yes !None ! + +------ ----+ +- --------- + !PTV !Yes !Yes !None ! + +------ ----+ +- --------- + !Peroneal !Partial !Yes !None ! + +------ ----+ +- --------- + !Gastroc !Yes !Yes !None ! + +------ ----+ +- --------- + !GSV Thigh !Yes !Yes !None ! + +------ ----+ +- --------- + !GSV Knee !Yes !Yes !None ! + +------ ----+ +- --------- + !GSV Ankle !Yes !Yes !None ! + +------ ----+ +- --------- + !SSV !Yes !Yes !None ! + +------ ----+ +- --------- + Right Doppler Measurements + ------+------+------+- --------- + !Location !Signal!Reflux!Reflux (msec) ! + ------+------+------+- --------- + !Common Femoral !Phasic! ! ! + ------+------+------+- --------- + !Prox Femoral !Phasic! ! ! + ------+------+------+- --------- + !Popliteal !Phasic! ! ! + ------+------+------+- --------- + Left Lower Extremities DVT Study Measurements Left 2D Measurements + +------ ----+ +- --------- + (more content not included)... [facility] Work Phone: VL DUP LOWER EXTREMITY VENOU S BILATERALOrdered By: Skyler Hardin on 07-01-2022 [employer] Phone: Basic Metabolic Panelon 06-03 Anion gap [Moles/Vol] 10 mmol/L 9 - 17 mmol/L [facility] Calcium [Mass/Vol] 8.9 mg/dL 8.6 - 10. 4 mg/dL [facility] Chloride [Moles/Vol] 95 mmol/L Low 98 - 10 7 mmol/L [facility] CO2 [Moles/Vol] 30 mmol/L 20 - 31 mmol/L [facility] Creatinine [Mass/Vol] 0.53 mg/dL 0.50 - 0.90 mg/dL [facility] GFR/1.73 sq M.predicted MDRD (S/P/Bld) [Vol rate/Area] - PINF [facility] Comment on above: Effective Apr 04, 2022 These results are not intended for use in patients <18 years of age. eGFR results are calculated without a race factor using the 2020 CKD-EPI equation. Careful clinical correlation is recommended, particularly when comparing to results calculated using previous equations. The CKD-EPI equation is less accurate in patients with extremes of muscle mass, extra-renal metabolism of creatine, excessive creatine ingestion, or following therapy that affects renal tubular secretion. Glucose [Mass/Vol] 101 mg/dL High 70 - 99 mg/dL [facility] Potassium [Moles/Vol] 4.5 mmol/L 3.7 - 5.3 mmol/L [facility] Sodium [Moles/Vol] 135 mmol/L 135 - 144 mmol/L [facility] Urea nitrogen (BldV) [Mass/Vol] 7 mg/dL 6 - 20 mg/dL [facility] CBC with Auto Differentialon 06-30-2022 [facility] # 0.29 [facility] Absolute Immature Granulocyte 0.07 [facility] Absolute Lymph # 2.61 [facility] Absolute Branch # 1.14 [facility] Basophils (Bld) [#/Vol] 0.05 10*3/uL [facility] Basophils/100 WBC (Bld) 0 % 0 - 2 % [facility] Eosinophils/100 WBC (Bld) 3 % 1 - 4 % [facility] Hematocrit (Bld) [Volume fraction] 30.2 % Low 36.3 - 47.1 % [facility] Hemoglobin (Bld) [Mass/Vol] 9.1 g/dL Low 11.9 - 15.1 g/dL [facility] Immature granulocytes/100 WBC (Bld) 1 % High 0 [facility] Interpretation and review of laboratory results Abnormal [facility] Lymphocytes/100 WBC (Bld) 23 % Low 24 - 43 % [facility] MCH (RBC) [Entitic mass] 26.0 pg 25.2 - 33.5 pg [facility] MCHC (RBC) [Mass/Vol] 30.1 g/dL 28.4 - 34.8 g/dL [facility] MCV (RBC) [Entitic vol] 86.3 fL 82.6 - 102.9 fL [facility] Monocytes/100 WBC (Bld) 10 % 3 - 12 % [facility] NRBC Automated 0.0 0.0 per 100 WBC [facility] Platelet distribution width (Bld) [Ratio] 13.4 % 11.8 - 14.4 % [facility] Platelet mean volume (Bld) [Entitic vol] 9.7 fL 8.1 - 13.5 fL [facility] Platelets (Bld) [#/Vol] 296 10*3/uL [facility] RBC (Bld) [#/Vol] 3.50 10*6/uL Low 3.95 - 5.1 1 m/uL [facility] Segmented neutrophils/100 WBC (Bld) 63 % 36 - 65 % [facility] Segs Absolute 7.18 [facility] WBC (Bld) [#/Vol] 11.3 10*3/uL [facility] Magnesiumon 06-30-2022 Magnesium [Mass/Vol] 1.9 mg/dL 1.6 - 2 .6 mg/dL [facility] No Panel Informationon 06-30 Interpretation and review of laboratory results Abnormal [facility] Phosphoruson 06-30-2022 Phosphate [Mass/Vol] 4.8 mg/dL High 2.6 - 4 .5 mg/dL [facility] [employer] VL DUP LOWER EXTREMITY VENOU S BILATERALon 06-30-2022 Radiology Study observation (narrative) [facility] Work Phone: Basic Metabolic Panelon 06-03 Anion gap [Moles/Vol] 8 mmol/L Low 9 - 17 mmol/L [facility] Calcium [Mass/Vol] 8.4 mg/dL Low 8.6 - 10. 4 mg/dL [facility] Chloride [Moles/Vol] 98 mmol/L 98 - 10 7 mmol/L [facility] CO2 [Moles/Vol] 28 mmol/L 20 - 31 mmol/L [facility] Creatinine [Mass/Vol] 0.52 mg/dL 0.50 - 0.90 mg/dL [facility] GFR/1.73 sq M.predicted MDRD (S/P/Bld) [Vol rate/Area] - PINF [facility] Comment on above: Effective Apr 04, 2022 These results are not intended for use in patients <18 years of age. eGFR results are calculated without a race factor using the 2020 CKD-EPI equation. Careful clinical correlation is recommended, particularly when comparing to results calculated using previous equations. The CKD-EPI equation is less accurate in patients with extremes of muscle mass, extra-renal metabolism of creatine, excessive creatine ingestion, or following therapy that affects renal tubular secretion. Glucose [Mass/Vol] 88 mg/dL 70 - 99 mg/dL [facility] Interpretation and review of laboratory results Abnormal [facility] Potassium [Moles/Vol] 3.9 mmol/L 3.7 - 5.3 mmol/L [facility] Sodium [Moles/Vol] 134 mmol/L Low 135 - 144 mmol/L [facility] Urea nitrogen (BldV) [Mass/Vol] 6 mg/dL 6 - 20 mg/dL [facility] CBC with Auto Differentialon 06-29-2022 Absolute Eos # 0.13 [place] [facility] Absolute Immature Granulocyte 0.09 [facility] Absolute Lymph # 3.01 [facility] Absolute Branch # 1.19 [facility] Basophils (Bld) [#/Vol] 0.07 10*3/uL [facility] Basophils/100 WBC (Bld) 1 % 0 - 2 % [facility] Eosinophils/100 WBC (Bld) 1 % 1 - 4 % [facility] Hematocrit (Bld) [Volume fraction] 30.2 % Low 36.3 - 47.1 % [facility] Hemoglobin (Bld) [Mass/Vol] 9.1 g/dL Low 11.9 - 15.1 g/dL [facility] Immature granulocytes/100 WBC (Bld) 1 % High 0 [facility] Interpretation and review of laboratory results Abnormal [facility] Lymphocytes/100 WBC (Bld) 25 % 24 - 43 % [facility] MCH (RBC) [Entitic mass] 26.6 pg 25.2 - 33.5 pg [facility] MCHC (RBC) [Mass/Vol] 30.1 g/dL 28.4 - 34.8 g/dL [facility] MCV (RBC) [Entitic vol] 88.3 fL 82.6 - 102.9 fL [facility] Monocytes/100 WBC (Bld) 10 % 3 - 12 % [facility] NRBC Automated 0.0 0.0 per 100 WBC [facility] Platelet distribution width (Bld) [Ratio] 13.6 % 11.8 - 14.4 % [facility] Platelet mean volume (Bld) [Entitic vol] 9.7 fL 8.1 - 13.5 fL [facility] Platelets (Bld) [#/Vol] 261 10*3/uL [facility] RBC (Bld) [#/Vol] 3.42 10*6/uL Low 3.95 - 5.1 1 m/uL [facility] Segmented neutrophils/100 WBC (Bld) 62 % 36 - 65 % [facility] Segs Absolute 7.34 [facility] WBC (Bld) [#/Vol] 11.8 10*3/uL High [facility] Magnesiumon 06-29-2022 Magnesium [Mass/Vol] 1.8 mg/dL 1.6 - 2 .6 mg/dL [facility] No Panel Informationon 06-29 [facility] POC Glucose Fingerstickon Glucose [Mass/Vol] 100 mg/dL 65 - 105 mg/dL [facility] Phosphoruson 06-29-2022 Phosphate [Mass/Vol] 3.4 mg/dL 2.6 - 4 .5 mg/dL [facility] Basic Metabolic Panelon 06-03 Anion gap [Moles/Vol] 7 mmol/L Low 9 - 17 mmol/L [facility] Calcium [Mass/Vol] 8.0 mg/dL Low 8.6 - 10. 4 mg/dL [facility] Chloride [Moles/Vol] 99 mmol/L 98 - 10 7 mmol/L [facility] CO2 [Moles/Vol] 28 mmol/L 20 - 31 mmol/L [facility] Creatinine [Mass/Vol] 0.55 mg/dL 0.50 - 0.90 mg/dL [facility] GFR/1.73 sq M.predicted MDRD (S/P/Bld) [Vol rate/Area] - PINF [facility] Comment on above: Effective Apr 04, 2022 These results are not intended for use in patients <18 years of age. eGFR results are calculated without a race factor using the 2020 CKD-EPI equation. Careful clinical correlation is recommended, particularly when comparing to results calculated using previous equations. The CKD-EPI equation is less accurate in patients with extremes of muscle mass, extra-renal metabolism of creatine, excessive creatine ingestion, or following therapy that affects renal tubular secretion. Glucose [Mass/Vol] 100 mg/dL High 70 - 99 mg/dL [facility] Interpretation and review of laboratory results Abnormal [facility] Potassium [Moles/Vol] 3.7 mmol/L 3.7 - 5.3 mmol/L [facility] Sodium [Moles/Vol] 134 mmol/L Low 135 - 144 mmol/L [facility] Urea nitrogen (BldV) [Mass/Vol] 6 mg/dL 6 - 20 mg/dL [facility] CBC with Auto Differentialon 06-28-2022 Absolute Eos # 0.00 [place] [facility] Absolute Immature Granulocyte 0.00 [facility] Absolute Lymph # 3.54 [facility] Absolute Branch # 0.92 High [facility] Basophils (Bld) [#/Vol] 0.00 10*3/uL [facility] Basophils/100 WBC (Bld) 0 % 0 - 2 % [facility] Eosinophils/100 WBC (Bld) 0 % Low 1 - 4 % [facility] Hematocrit (Bld) [Volume fraction] 29.4 % Low 36.3 - 47.1 % [facility] Hemoglobin (Bld) [Mass/Vol] 9.0 g/dL Low 11.9 - 15.1 g/dL [facility] Immature granulocytes/100 WBC (Bld) 0 % 0 [facility] Interpretation and review of laboratory results Abnormal [facility] Lymphocytes/100 WBC (Bld) 27 % 24 - 44 % [facility] MCH (RBC) [Entitic mass] 26.5 pg 25.2 - 33.5 pg [facility] MCHC (RBC) [Mass/Vol] 30.6 g/dL 28.4 - 34.8 g/dL [facility] MCV (RBC) [Entitic vol] 86.5 fL 82.6 - 102.9 fL [facility] Monocytes/100 WBC (Bld) 7 % 1 - 7 % [facility] Morphology Isaías (Bld) [Interp] Normal [facility] NRBC Automated 0.0 0.0 per 100 WBC [facility] Platelet distribution width (Bld) [Ratio] 13.7 % 11.8 - 14.4 % [facility] Platelet mean volume (Bld) [Entitic vol] 10.1 fL 8.1 - 13.5 fL [facility] Platelets (Bld) [#/Vol] 265 10*3/uL [facility] RBC (Bld) [#/Vol] 3.40 10*6/uL Low 3.95 - 5.1 1 m/uL [facility] Segmented neutrophils/100 WBC (Bld) 66 % 36 - 66 % [facility] Segs Absolute 8.64 High [facility] WBC (Bld) [#/Vol] 13.1 10*3/uL High [facility] Culture, Urineon 06-28-2022 Bacteria identified Cx Nom (U) NO GROWTH [facility] Specimen Description .INDWELLING CATH URINE [facility] EKG 12 LeadOrdered By: Unkno wn Result on 06-28-2022 Atrial Rate 118 BPM [facility] P [place] 54 degrees [facility] P-R Interval 162 ms [facility] Q-T Interval 322 ms [facility] QRS Duration 96 ms [facility] QTc Calculation (Bazett) 451 ms [facility] R [place] 61 degrees [facility] T [place] 29 degrees [facility] Ventricular Rate [address] [facility] EKG 12 Leadon 06-28-2022 Sinus tachycardia Otherwise normal ECG [facility] Result, Unknown Provider - 06/28/2022 Sinus tachycardia Otherwise normal ECG [facility] Work Phone: Hemoglobin and Hematocriton 06-28-2022 Hematocrit (Bld) [Volume fraction] 29.4 % Low 36.3 - 47.1 % [facility] Hemoglobin (Bld) [Mass/Vol] 9.3 g/dL Low 11.9 - 15.1 g/dL [facility] Interpretation and review of laboratory results Abnormal [facility] Magnesiumon 06-28-2022 Magnesium [Mass/Vol] 1.6 mg/dL 1.6 - 2 .6 mg/dL [facility] No Panel Informationon 06-28 [facility] Phosphoruson 06-28-2022 Phosphate [Mass/Vol] 2.6 mg/dL 2.6 - 4 .5 mg/dL [facility] Basic Metabolic Panelon 06-03 Anion gap [Moles/Vol] 9 mmol/L 9 - 17 mmol/L [facility] Calcium [Mass/Vol] 8.1 mg/dL Low 8.6 - 10. 4 mg/dL [facility] Chloride [Moles/Vol] 101 mmol/L 98 - 10 7 mmol/L [facility] CO2 [Moles/Vol] 26 mmol/L 20 - 31 mmol/L [facility] Creatinine [Mass/Vol] 0.6 mg/dL 0.50 - 0.90 mg/dL [facility] GFR/1.73 sq M.predicted MDRD (S/P/Bld) [Vol rate/Area] - PINF [facility] Comment on above: Effective Apr 04, 2022 These results are not intended for use in patients <18 years of age. eGFR results are calculated without a race factor using the 2020 CKD-EPI equation. Careful clinical correlation is recommended, particularly when comparing to results calculated using previous equations. The CKD-EPI equation is less accurate in patients with extremes of muscle mass, extra-renal metabolism of creatine, excessive creatine ingestion, or following therapy that affects renal tubular secretion. Glucose [Mass/Vol] 95 mg/dL 70 - 99 mg/dL [facility] Interpretation and review of laboratory results Abnormal [facility] Potassium [Moles/Vol] 3.7 mmol/L 3.7 - 5.3 mmol/L [facility] Sodium [Moles/Vol] 136 mmol/L 135 - 144 mmol/L [facility] Urea nitrogen (BldV) [Mass/Vol] 11 mg/dL 6 - 20 mg/dL [facility] CBC with Auto Differentialon 06-27-2022 Absolute Eos # 0.03 [facility] Absolute Immature Granulocyte 0.08 [facility] Absolute Lymph # 3.26 [facility] Absolute Branch # 1.47 High [facility] Basophils (Bld) [#/Vol] 0.04 10*3/uL [facility] Basophils/100 WBC (Bld) 0 % 0 - 2 % [facility] Eosinophils/100 WBC (Bld) 0 % Low 1 - 4 % [facility] Hematocrit (Bld) [Volume fraction] 33.0 % Low 36.3 - 47.1 % [facility] Hemoglobin (Bld) [Mass/Vol] 9.9 g/dL Low 11.9 - 15.1 g/dL [facility] Immature granulocytes/100 WBC (Bld) 1 % High 0 [facility] Interpretation and review of laboratory results Abnormal [facility] Lymphocytes/100 WBC (Bld) 23 % Low 24 - 43 % [facility] MCH (RBC) [Entitic mass] 26.1 pg 25.2 - 33.5 pg [facility] MCHC (RBC) [Mass/Vol] 30.0 g/dL 28.4 - 34.8 g/dL [facility] MCV (RBC) [Entitic vol] 87.1 fL 82.6 - 102.9 fL [facility] Monocytes/100 WBC (Bld) 10 % 3 - 12 % [facility] NRBC Automated 0.0 0.0 per 100 WBC [facility] Platelet distribution width (Bld) [Ratio] 13.9 % 11.8 - 14.4 % [facility] Platelet mean volume (Bld) [Entitic vol] 9.7 fL 8.1 - 13.5 fL [facility] Platelets (Bld) [#/Vol] 283 10*3/uL [facility] RBC (Bld) [#/Vol] 3.79 10*6/uL Low 3.95 - 5.1 1 m/uL [facility] Segmented neutrophils/100 WBC (Bld) 65 % 36 - 65 % [facility] Segs Absolute 9.21 High [facility] WBC (Bld) [#/Vol] 14.1 10*3/uL High [facility] Hemoglobin and Hematocriton 06-27-2022 Hematocrit (Bld) [Volume fraction] 30.3 % Low 36.3 - 47.1 % [facility] Hemoglobin (Bld) [Mass/Vol] 9.3 g/dL Low 11.9 - 15.1 g/dL [facility] Interpretation and review of laboratory results Abnormal [facility] Hematocrit (Bld) [Volume fraction] 32.0 % Low 36.3 - 47.1 % [facility] Hemoglobin (Bld) [Mass/Vol] 9.9 g/dL Low 11.9 - 15.1 g/dL [facility] Interpretation and review of laboratory results Abnormal [facility] Hematocrit (Bld) [Volume fraction] 38.7 % 36.3 - 47.1 % [facility] Hemoglobin (Bld) [Mass/Vol] 11.9 g/dL 11.9 - 15.1 g/dL [facility] Magnesiumon 06-27-2022 Magnesium [Mass/Vol] 1.8 mg/dL 1.6 - 2 .6 mg/dL [facility] Microscopic Urinalysison Casts UA 5 TO 10 HYALINE Reference range defined for non-centrifuged specimen. [facility] Epithelial Cells UA 2 TO 5 [facility] RBC, UA 2 TO 5 [facility] Comment on above: Reference range defi alexys for non-centrifuged specimen. WBC, UA 2 TO 5 [facility] No Panel Informationon 06-27 [facility] Phosphoruson 06-27-2022 Phosphate [Mass/Vol] 3.1 mg/dL 2.6 - 4 .5 mg/dL [facility] Urinalysison 06-27-2022 Bilirubin Urine Negative NEGATIVE [facility] Color, UA Yellow Yellow [facility] Glucose, Ur Negative NEGATIVE [facility] Interpretation and review of laboratory results Abnormal [facility] Ketones Ql (U) SMALL Abnormal NEGATIVE [facility] Leukocyte esterase Test strip Ql (U) Negative NEGATIVE [facility] Nitrite, Urine Negative NEGATIVE [facility] pH, UA 5.5 5.0 - 8.0 [facility] Protein, UA TRACE Abnormal NEGATIVE [facility] Specific [place], UA 1.026 1.005 - 1.030 [facility] Turbidity UA Clear Clear [facility] Urine Hgb Negative NEGATIVE [facility] Urobilinogen, Urine Normal Normal [facility] BASIC METABOLIC PROFILE [facility] 06-26-2022 Anion gap [Moles/Vol] 14.4 mmol/L [facility] Calcium [Mass/Vol] 9.9 mg/dL 8.4 - 10. 2 mg/dL [facility] Chloride [Moles/Vol] 103 mmol/L [facility] CO2 [Moles/Vol] 23 mmol/L [facility] Creatinine [Mass/Vol] 0.8 mg/dL 0.4 - 1.1 mg/dL [facility] GFR/1.73 sq M.predicted MDRD (S/P/Bld) [Vol rate/Area] mL/min/{1.73_m2} [facility] Comment on above: Estimated Glomerular filtration Rate Reference Ranges: GFR, mL/min/1.73m2 >= 60 Adequate 30 - 59 Moderately decreased GFR 15 - 29 Severely decreased GFR <18 Kidney failure (or dialysis) GFR calculated using abbreviated MDRD formula. MDRD equation not suitable for patients who are under 18, have unstable creatinine concentrations Glucose [Mass/Vol] 126 mg/dL 70 - 126 mg/dL [facility] Comment on above: Reference Range for FASTING patients is 70-100 mg/dL Interpretation and review of laboratory results Abnormal [facility] Potassium [Moles/Vol] 3.4 mmol/L Low [facility] Sodium [Moles/Vol] 137 mmol/L [facility] Urea nitrogen [Mass/Vol] 11 mg/dL 7 - 22 mg/dL [facility] Basic Metabolic Profile [facility] 06-26-2022 Anion gap [Moles/Vol] 14.4 mmol/L Normal 10.0-20.0 [facility] Comment on above: Performed By: #### 1 [id number] #### [facility] [address] [place] [address] Calcium [Mass/Vol] 9.9 mg/dL Normal 8.4-10.2 [facility] Comment on above: Performed By: #### 1 [id number] #### [facility] [address] [place] [address] Chloride [Moles/Vol] 103 mmol/L Normal 98-107 [facility] Comment on above: Performed By: #### 1 [id number] #### [facility] [address] [place] [address] CO2 [Moles/Vol] 23 mmol/L Normal 22-31 [facility] Comment on above: Performed By: #### 1 [id number] #### [facility] [address] [place] [address] Creatinine [Mass/Vol] 0.8 mg/dL Normal 0.4-1.1 [facility] Comment on above: Performed By: #### 1 [id number] #### [facility] [address] [place] [address] GFR/1.73 sq M.predicted among non-blacks MDRD (S/P/Bld) [Vol rate/Area] mL/min/{1.73_m2} Normal [facility] Comment on above: Result Comment: Ana mated Glomerular filtration Rate Reference Ranges: GFR, mL/min/1.73m2 >= 60 Adequate 30 - 59 Moderately decreased GFR 15 - 29 Severely decreased GFR <18 Kidney failure (or dialysis) GFR calculated using abbreviated MDRD formula. MDRD equation not suitable for patients who are under 18, have unstable creatinine concentrations Performed By: #### 1 [id number] #### [facility] [address] [place] [address] Glucose [Mass/Vol] 126 mg/dL Normal 70-126 [facility] Comment on above: Result Comment: Refe rence Range for FASTING patients is 70-100 mg/dL Performed By: #### 1 [id number] #### [facility] [address] [place] [address] Potassium [Moles/Vol] 3.4 mmol/L Low 3.5-5.1 [facility] Comment on above: Performed By: #### 1 [id number] #### [facility] [address] [place] [address] Sodium [Moles/Vol] 137 mmol/L Normal 136-145 [facility] Comment on above: Performed By: #### 1 [id number] #### [facility] [address] [place] [address] Urea nitrogen [Mass/Vol] 11 mg/dL Normal 7-22 [facility] Comment on above: Performed By: #### 1 [id number] #### [facility] [address] [place] [address] Blood Gas, [facility] 06-26-20 Carboxyhemoglobin 1.3 % 0 - 5 % [facility] Comment on above: Reference Range: Non-Smokers 0-2% Average Smoker 2-4% Heavy Smoker <10% FIO2 INFORMATION NOT PROVIDED [facility] Dexetra HCO3 (Bld) [Moles/Vol] 24.3 mmol/L 24 - 30 mmol/L [facility] [employer] Negative Base Excess, [place] 1.1 mmol/L 0.0 - 2.0 mmol/L [facility] (?) Oxygen saturation in Blood 66.8 % 60.0 - 85.0 % [facility] pCO2, [place] 45.5 [facility] (?) pH, [place] 7.346 7.320 - 7.420 [facility] pO2, [place] 35.7 [facility] Pt Temp 37.0 [facility] CBC, EDIF, PLATELETon 2021 Basophils/100 WBC (Bld) 1.0 % 0.0 - 3.0 % [facility] Eosinophils/100 WBC (Bld) 0.0 % 0.0 - 4.0 % [facility] Erythrocyte distribution width (RBC) [Ratio] 13.9 % 11.5 - 14.5 % [facility] Hematocrit (Bld) [Volume fraction] 44.8 % 37.0 - 47.0 % [facility] Hemoglobin (Bld) [Mass/Vol] 14.6 g/dL 12.0 - 16.0 g/dL [place] Interpretation and review of laboratory results Abnormal [facility] Lymphocytes/100 WBC (Bld) 2.9 % Low 17.6 - 49.6 % [facility] MCH (RBC) [Entitic mass] 26.1 pg Low 28.0 - 32.0 pg [facility] MCHC (RBC) [Mass/Vol] 32.6 g/dL Low 33.0 - 37.0 g/dL [facility] MCV (RBC) [Entitic vol] 80.1 fL Low 81.0 - 99.0 fL [facility] Monocytes/100 WBC (Bld) 2.6 % Low 4.1 - 12.4 % [facility] Neutrophils/100 WBC (Bld) 93.5 % High 39.4 - 72.5 % [facility] Platelets (Bld) [#/Vol] 398 10*3/uL [facility] Platelets LM Ql (Bld) ADEQUATE ADEQUATE [place] RBC (Bld) [#/Vol] 5.59 10*6/uL High [place] RBC morphology finding Nom (Bld) NORMAL NORMAL [facility] SCAN SLIDE YES NO [place] WBC (Bld) [#/Vol] 22.7 10*3/uL High [facility] [place] CT CERVICAL SPINE WO CONTRAS Ton 06-26-2022 1. Reversal of the cervical lordosis. 2. No acute vertebral body height loss in the cervical spine. PN RIS CONSOLIDATED EXAMINATION: CT OF THE CERVICAL SPINE WITHOUT CONTRAST 06/26/2022 9:34 am TECHNIQUE: CT of the cervical spine was performed without the administration of intravenous contrast. Multiplanar reformatted images are provided for review. Automated exposure control, iterative reconstruction, and/or weight based adjustment of the mA/kV was utilized to reduce the radiation dose to as low as reasonably achievable. COMPARISON: None. HISTORY: ORDERING SYSTEM PROVIDED HISTORY: Thoracic fx TECHNOLOGIST PROVIDED HISTORY: Thoracic fx Decision Support Exception - unselect if not a suspected or confirmed emergency medical condition->Emergency Medical Condition (MA) Is the patient ?->No 26-year-old female with thoracic fracture FINDINGS: BONES/ALIGNMENT: Reversal of the cervical lordosis. Cervical spine is imaged from skull base to mid T2 vertebral body level. Gross preservation of the vertebral body heights. Odontoid appears intact. Lateral masses symmetric in appearance. Occipital condyles articulate properly with the lateral masses. Axial images demonstrate no clear evidence for acute fracture in the cervical spine. DEGENERATIVE CHANGES: No significant degenerative changes. SOFT TISSUES: There is no prevertebral soft tissue swelling. [facility] CON[facility] Melo Persaud MD - 06/26/2022 EXAMINATION: CT OF THE CERVICAL SPINE WITHOUT CONTRAST 06/26/2022 9:34 am TECHNIQUE: CT of the cervical spine was performed without the administration of intravenous contrast. Multiplanar reformatted images are provided for review. Automated exposure control, iterative reconstruction, and/or weight based adjustment of the mA/kV was utilized to reduce the radiation dose to as low as reasonably achievable. COMPARISON: None. HISTORY: ORDERING SYSTEM PROVIDED HISTORY: Thoracic fx TECHNOLOGIST PROVIDED HISTORY: Thoracic fx Decision Support Exception - unselect if not a suspected or confirmed emergency medical condition->Emergency Medical Condition (MA) Is the patient ?->No 26-year-old female with thoracic fracture FINDINGS: BONES/ALIGNMENT: Reversal of the cervical lordosis. Cervical spine is imaged from skull base to mid T2 vertebral body level. Gross preservation of the vertebral body heights. Odontoid appears intact. Lateral masses symmetric in appearance. Occipital condyles articulate properly with the lateral masses. Axial images demonstrate no clear evidence for acute fracture in the cervical spine. DEGENERATIVE CHANGES: No significant degenerative changes. SOFT TISSUES: There is no prevertebral soft tissue swelling. IMPRESSION: 1. Reversal of the cervical lordosis. 2. No acute vertebral body height loss in the cervical spine. [facility] Work Phone: CT CERVICAL SPINE WO CONTRAS TOrdered By: Melo Hung on 06-26-2022 [facility] Work Phone: CT CHEST ABDOMEN PELVIS W CO NTRAST Additional Contrast? Noneon 06-26-2022 1. Unstable burst fracture at L1 with retropulsion of fracture fragments by 1.3 cm into the spinal canal and severe narrowing of the AP dimension of the spinal canal measuring 2 mm. 2. Mild compression deformity and height loss of T12. 3. Cardiomegaly. 4. Mild dependent atelectasis and respiratory motion. 5. Small midline fat-containing periumbilical hernia. 6. Nonobstructing left-sided renal calculi. No hydronephrosis. The findings were sent to the Radiology Results Communication Center at 10:48 am on 06/26/2022 to be communicated to a licensed caregiver. [facility] RIS CONSOLIDATED EXAMINATION: CT OF THE CHEST, ABDOMEN, AND PELVIS WITH CONTRAST 06/26/2022 10:03 am TECHNIQUE: CT of the chest, abdomen and pelvis was performed with the administration of intravenous contrast. Multiplanar reformatted images are provided for review. Automated exposure control, iterative reconstruction, and/or weight based adjustment of the mA/kV was utilized to reduce the radiation dose to as low as reasonably achievable. COMPARISON: None HISTORY: ORDERING SYSTEM PROVIDED HISTORY: Thoracic fx TECHNOLOGIST PROVIDED HISTORY: Thoracic fx Decision Support Exception - unselect if not a suspected or confirmed emergency medical condition->Emergency Medical Condition (MA) 26-year-old female with thoracic fracture FINDINGS: Chest: Mediastinum: Visualized thyroid gland grossly unremarkable in appearance. No axillary, mediastinal, or hilar lymphadenopathy. Cardiomegaly. No periaortic or mediastinal hemorrhage. No dissection flap in the visualized thoracic aorta. No pericardial or pleural effusion. Lungs/pleura: Trachea and proximal central airways appear patent. No pneumothorax. Mild dependent atelectasis and respiratory motion. No lobar airspace consolidation. Soft Tissues/Bones: Unstable burst fracture at L1. Mild compression deformity with mild height loss of T12. Retropulsion of fracture fragments by 1.3 cm into the spinal canal with severe narrowing of the spinal canal AP dimension at 2 mm. Abdomen/Pelvis: Organs: No free intra-abdominal air. Liver, spleen, adrenal glands, right kidney, pancreas, and gallbladder grossly unremarkable in appearance. Nonobstructing left-sided renal calculi. No hydronephrosis or obstructing calculus. GI/Bowel: No significant dilation of small bowel loops to suggest small bowel obstruction. Normal appendix. Mild stool burden. Pelvis: Moderate distention of the urinary bladder. Pelvic phleboliths. Uterus and adnexa grossly unremarkable. No inguinal or pelvic sidewall lymphadenopathy. Peritoneum/Retroperito neum: Abdominal aorta normal in appearance and caliber. Psoas muscles normal in size and symmetric in appearance. No retroperitoneal lymphadenopathy. Bones/Soft Tissues: Unstable burst fracture of L1 with retropulsion by 1.3 cm and severe narrowing of the spinal canal measuring 2 mm. Mild compression deformity/height loss of T12. Small midline fat-containing periumbilical hernia. [facility] RIS CONSOLIDATED Melo Persaud MD - 06/26/2022 EXAMINATION: CT OF THE CHEST, ABDOMEN, AND PELVIS WITH CONTRAST 06/26/2022 10:03 am TECHNIQUE: CT of the chest, abdomen and pelvis was performed with the administration of intravenous contrast. Multiplanar reformatted images are provided for review. Automated exposure control, iterative reconstruction, and/or weight based adjustment of the mA/kV was utilized to reduce the radiation dose to as low as reasonably achievable. COMPARISON: None HISTORY: ORDERING SYSTEM PROVIDED HISTORY: Thoracic fx TECHNOLOGIST PROVIDED HISTORY: Thoracic fx Decision Support Exception - unselect if not a suspected or confirmed emergency medical condition->Emergency Medical Condition (MA) 26-year-old female with thoracic fracture FINDINGS: Chest: Mediastinum: Visualized thyroid gland grossly unremarkable in appearance. No axillary, mediastinal, or hilar lymphadenopathy. Cardiomegaly. No periaortic or mediastinal hemorrhage. No dissection flap in the visualized thoracic aorta. No pericardial or pleural effusion. Lungs/pleura: Trachea and proximal central airways appear patent. No pneumothorax. Mild dependent atelectasis and respiratory motion. No lobar airspace consolidation. Soft Tissues/Bones: Unstable burst fracture at L1. Mild compression deformity with mild height loss of T12. Retropulsion of fracture fragments by 1.3 cm into the spinal canal with severe narrowing of the spinal canal AP dimension at 2 mm. Abdomen/Pelvis: Organs: No free intra-abdominal air. Liver, spleen, adrenal glands, right kidney, pancreas, and gallbladder grossly unremarkable in appearance. Nonobstructing left-sided renal calculi. No hydronephrosis or obstructing calculus. GI/Bowel: No significant dilation of small bowel loops to suggest small bowel obstruction. Normal appendix. Mild stool burden. Pelvis: Moderate distention of the urinary bladder. Pelvic phleboliths. Uterus and adnexa grossly unremarkable. No inguinal or pelvic sidewall lymphadenopathy. Peritoneum/Retroperito neum: Abdominal aorta normal in appearance and caliber. Psoas muscles normal in size and symmetric in appearance. No retroperitoneal lymphadenopathy. Bones/Soft Tissues: Unstable burst fracture of L1 with retropulsion by 1.3 cm and severe narrowing of the spinal canal measuring 2 mm. Mild compression deformity/height loss of T12. Small midline fat-containing periumbilical hernia. IMPRESSION: 1. Unstable burst fracture at L1 with retropulsion of fracture fragments by 1.3 cm into the spinal canal and severe narrowing of the AP dimension of the spinal canal measuring 2 mm. 2. Mild compression deformity and height loss of T12. 3. Cardiomegaly. 4. Mild dependent atelectasis and respiratory motion. 5. Small midline fat-containing periumbilical hernia. 6. Nonobstructing left-sided renal calculi. No hydronephrosis. The findings were sent to the Radiology Results Communication Center at 10:48 am on 06/26/2022 to be communicated to a licensed caregiver. [facility] Work Phone: [facility] [place] Phone: CT HEAD WO CONTRASTon 2021 1. No acute intracranial abnormality. 2. Mucosal thickening with fluid in the left sphenoid sinus. [facility] RIS CONSOLIDATED EXAMINATION: CT OF THE HEAD WITHOUT CONTRAST 06/26/2022 9:34 am TECHNIQUE: CT of the head was performed without the administration of intravenous contrast. Automated exposure control, iterative reconstruction, and/or weight based adjustment of the mA/kV was utilized to reduce the radiation dose to as low as reasonably achievable. COMPARISON: None. HISTORY: ORDERING SYSTEM PROVIDED HISTORY: Thoracic fx TECHNOLOGIST PROVIDED HISTORY: Thoracic fx Decision Support Exception - unselect if not a suspected or confirmed emergency medical condition->Emergency Medical Condition (MA) Is the patient ?->No Initial evaluation. FINDINGS: BRAIN/VENTRICLES: There is no acute intracranial hemorrhage, mass effect or midline shift. No abnormal extra-axial fluid collection. The pryor-white differentiation is maintained without evidence of an acute infarct. There is no evidence of hydrocephalus. ORBITS: The visualized portion of the orbits demonstrate no acute abnormality. SINUSES: Mucosal thickening with fluid is seen in the left sphenoid sinus. The mastoid air cells demonstrate no acute abnormality. SOFT TISSUES/SKULL: No acute abnormality of the visualized skull or soft tissues. [facility] Miguel Ángel Francisco MD - 06/26/2022 EXAMINATION: CT OF THE HEAD WITHOUT CONTRAST 06/26/2022 9:34 am TECHNIQUE: CT of the head was performed without the administration of intravenous contrast. Automated exposure control, iterative reconstruction, and/or weight based adjustment of the mA/kV was utilized to reduce the radiation dose to as low as reasonably achievable. COMPARISON: None. HISTORY: ORDERING SYSTEM PROVIDED HISTORY: Thoracic fx TECHNOLOGIST PROVIDED HISTORY: Thoracic fx Decision Support Exception - unselect if not a suspected or confirmed emergency medical condition->Emergency Medical Condition (MA) Is the patient ?->No Initial evaluation. FINDINGS: BRAIN/VENTRICLES: There is no acute intracranial hemorrhage, mass effect or midline shift. No abnormal extra-axial fluid collection. The pryor-white differentiation is maintained without evidence of an acute infarct. There is no evidence of hydrocephalus. ORBITS: The visualized portion of the orbits demonstrate no acute abnormality. SINUSES: Mucosal thickening with fluid is seen in the left sphenoid sinus. The mastoid air cells demonstrate no acute abnormality. SOFT TISSUES/SKULL: No acute abnormality of the visualized skull or soft tissues. IMPRESSION: 1. No acute intracranial abnormality. 2. Mucosal thickening with fluid in the left sphenoid sinus. [employer] [facility] Phone: CT HEAD WO CONTRASTOrdered B y: Miguel Ángel Baer on 06-26-2022 [employer] Phone: CT Lumbar spine WO contrasto n 06-26-2022 IMPRESSION: 1. Prominent compression fracture of L1, with over 50% loss of height of the vertebral body centrally. Retropulsion of bony fragments into the spinal canal which may impinge on the conus medullaris. Severe narrowing of the spinal canal at this level. Recommend further evaluation with MRI of the lumbar spine. 2. Deformity of the T12 vertebral body inferiorly consistent with less prominent compression fracture with mild anterior wedging. Electronically signed by: Jovan Hernandez MD 06/26/2022 12:20 AM PAY STATION COLLECTOR Jovan Harper MD - 06/26/2022 PROCEDURE: CT SPINE LUMBAR WITHOUT CONTRAST CLINICAL HISTORY: ; DIAGNOSES: -Low back pain, trauma; ; TECHNIQUE: Contiguous axial CT images obtained through the lumbar spine without IV contrast. Coronal and sagittal reformatted images also provided. This exam was performed according to our departmental dose-optimization program, which includes automated exposure control, adjustment of the mA and/or kV according to patient size and/or use of iterative reconstruction technique. COMPARISON: MRI of the lumbar spine from October 2017 FINDINGS: Prominent compression fracture of L1, with over 50% loss of height of the vertebral body centrally. Retropulsion of bony fragments into the spinal canal which may impinge on the conus medullaris. Severe narrowing of the spinal canal at this level. Deformity of the T12 vertebral body inferiorly consistent with less prominent compression fracture with mild anterior wedging. The remainder of the lumbar vertebral bodies are normal in shape and height. IMPRESSION IMPRESSION: 1. Prominent compression fracture of L1, with over 50% loss of height of the vertebral body centrally. Retropulsion of bony fragments into the spinal canal which may impinge on the conus medullaris. Severe narrowing of the spinal canal at this level. Recommend further evaluation with MRI of the lumbar spine. 2. Deformity of the T12 vertebral body inferiorly consistent with less prominent compression fracture with mild anterior wedging. Electronically signed by: Jovan Hernandez MD 06/26/2022 12:20 AM PAY STATION COLLECTOR [employer] Phone: Radiology Study observation (narrative) [employer] Phone: CT Lumbar spine WO contrastO rdered By: Jovan Hernandez on 06-26-2022 [employer] Phone: Complete Blood Counton 06-26 Basophils/100 WBC (Bld) 1.0 % Normal 0.0-3.0 [facility] Comment on above: Performed By: #### 1 [id number], [id number], [id number] #### [facility] [address] [place] [address] Eosinophils/100 WBC (Bld) 0.0 % Normal 0.0-4.0 [facility] Comment on above: Performed By: #### 1 [id number], , [id number] #### [facility] [address] [place] [address] Erythrocyte distribution width (RBC) [Ratio] 13.9 % Normal 11.5-14.5 [facility] Comment on above: Performed By: #### 1 [id number], , [id number] #### [facility] [place] [address] Hematocrit (Bld) [Volume fraction] 44.8 % Normal 37.0-47.0 [facility] Comment on above: Performed By: #### 1 [id number], [id number], [id number] #### [facility] [place] [place] [address] Hemoglobin (Bld) [Mass/Vol] 14.6 g/dL Normal 12.0-16.0 [facility] Comment on above: Performed By: #### 1 [id number], , [id number] #### [facility] [place] [address] Lymphocytes/100 WBC (Bld) 2.9 % Low 17.6-49.6 [facility] Comment on above: Performed By: #### 1 [id number], [id number], [id number] #### [facility] [address] [place] [address] MCH (RBC) [Entitic mass] 26.1 pg Low 28.0-32.0 [facility] Comment on above: Performed By: #### 1 [id number], , [id number] #### [facility] [address] [place] [address] MCHC (RBC) [Mass/Vol] 32.6 g/dL Low 33.0-37.0 [facility] Comment on above: Performed By: #### 1 [id number], , [id number] #### [facility] [address] [place] [address] MCV (RBC) [Entitic vol] 80.1 fL Low 81.0-99.0 [facility] Comment on above: Performed By: #### 1 [id number], , [id number] #### [facility] [address] [place] [address] Monocytes/100 WBC (Bld) 2.6 % Low 4.1-12.4 [facility] Comment on above: Performed By: #### 1 [id number], , [id number] #### [facility] [address] [place] [address] MORPH NORMAL Normal NORMAL [facility] Comment on above: Performed By: #### 1 [id number], , [id number] #### [facility] [address] [place] [address] Neutrophils/100 WBC (Bld) 93.5 % High 39.4-72.5 [facility] Comment on above: Performed By: #### 1 [id number], , [id number] #### [facility] [address] [place] [id number] PLT 398 thou/cumm Normal 130-400 [facility] Comment on above: Performed By: #### 1 [id number], [id number], [id number] #### [facility] [address] [place] [address] PLTE ADEQUATE Normal ADEQUATE [facility] Comment on above: Performed By: #### 1 [id number], , [id number] #### [facility] [address] [place] [address] RBC 5.59 mil/cumm High 4.20-5.40 [facility] Comment on above: Performed By: #### 1 [id number], [id number], [id number] #### [facility] [address] [place] [address] SCAN YES Normal NO [facility] Comment on above: Performed By: #### 1 [id number], [id number], [id number] #### [facility] [address] [place] [address] WBC 22.7 thou/cumm High 4.8-10.8 [facility] Comment on above: Performed By: #### 1 [id number], [id number], [id number] #### [facility] [address] [place] [address] FLUORO FOR SURGICAL PROCEDUR ESon 06-26-2022 Radiology exam is complete. No Radiologist dictation. Please follow up with ordering provider. [facility] Radiology exam is complete. No Radiologist dictation. Please follow up with ordering provider. [facility] HCG ( test) Qlon BETA HCG (QUAL), SERUM Negative [facility] LACTATE, BLOODon 06-26-2022 Interpretation and review of laboratory results Abnormal [facility] Lactate [Moles/Vol] 4.2 mmol/L Critically high 0.5 - 2.2 mmol/L [facility] Lactic Acidon 06-26-2022 LAC 4.2 mmol/L Critically high 0.5-2.2 [facility] Comment on above: Order Comment: Criti aakash result called to Mayelin Mcclure RN at 02:16 on 06/26/2022 by LINDY Carrera Anne. Results were read back to caller. (LAC) Performed By: #### 1 [id number], [id number] #### [facility] [address] [place] [address] Lamotrigine Levelon 06-26-20 Interpretation and review of laboratory results Abnormal [facility] Lamotrigine Lvl <1.0 Low 3.0 - 15.0 ug/mL [facility] Comment on above: Neither a therapeutic or toxic range for Lamotrigine have been well established. Some reports suggest a target for steady-state concentrations of 3 - 15 ug/mL. However, there is not a clear relationship between lamotrigine serum concentrations and clinical response. The assay should be used in conjunction with information available from clinical evaluations and other diagnostic procedures. Multiple measurements of lamotrigine may be needed. [facility] No Panel Informationon 06-26 THORACIC SPINE: 1. Partially visualized deformity likely an unstable burst fracture of L1. 2. Deformity and mild compression deformity of T12. 3. No clear evidence for acute fracture or malalignment of the thoracic spine. LUMBAR SPINE: 1. Unstable burst fracture of L1 with retropulsion of fracture fragments by 1.3 cm into the posterior spinal canal. Severe narrowing of the AP dimension of the spinal canal measuring 2 mm. 2. Deformity and mild acute compression deformity of T12. [facility] RIS CONSOLIDATED EXAMINATION: CT OF THE THORACIC SPINE WITHOUT CONTRAST; CT OF THE LUMBAR SPINE WITHOUT CONTRAST 06/26/2022 10:12 am: TECHNIQUE: CT of the thoracic spine was performed without the administration of intravenous contrast. Multiplanar reformatted images are provided for review. Automated exposure control, iterative reconstruction, and/or weight based adjustment of the mA/kV was utilized to reduce the radiation dose to as low as reasonably achievable.; CT of the lumbar spine was performed without the administration of intravenous contrast. Multiplanar reformatted images are provided for review. Adjustment of mA and/or kV according to patient size was utilized. Automated exposure control, iterative reconstruction, and/or weight based adjustment of the mA/kV was utilized to reduce the radiation dose to as low as reasonably achievable. COMPARISON: CT chest, abdomen, and pelvis from 06/26/2022 HISTORY: ORDERING SYSTEM PROVIDED HISTORY: Thoracic fx TECHNOLOGIST PROVIDED HISTORY: Thoracic fx Is the patient ?->No 26-year-old female with thoracic fracture FINDINGS: THORACIC SPINE: BONES/ALIGNMENT: Thoracic spine is imaged from C7 vertebral body level to the inferior T12 vertebral body level. Gross preservation of the visualized thoracic vertebral body heights and intervertebral disc spaces. Partially visualized deformity of the superior L1 level. Deformity/mild compression deformity of T12. DEGENERATIVE CHANGES: No gross spinal canal stenosis or bony neural foraminal narrowing of the thoracic spine. SOFT TISSUES: No paraspinal mass is seen. LUMBAR SPINE: BONES/ALIGNMENT: Lumbar spine is imaged from mid T11 vertebral body level. Deformity and mild acute compression deformity of T12 vertebral body. Unstable burst fracture of L1 with retropulsion of fracture fragments measuring 1.3 cm into the posterior spinal canal. Severe narrowing of the AP dimension of the spinal canal measuring 2 mm on image 35, series 611. These findings are well seen on image 26, series 11. These findings are well seen on image 19, series 610. DEGENERATIVE CHANGES: Severe narrowing of the spinal canal measuring 2 mm due to retropulsion of burst fracture fragments from L1. SOFT TISSUES: No paraspinal mass is seen. [facility] RIS CONSOLIDATED Melo Persaud MD - 06/26/2022 EXAMINATION: CT OF THE THORACIC SPINE WITHOUT CONTRAST; CT OF THE LUMBAR SPINE WITHOUT CONTRAST 06/26/2022 10:12 am: TECHNIQUE: CT of the thoracic spine was performed without the administration of intravenous contrast. Multiplanar reformatted images are provided for review. Automated exposure control, iterative reconstruction, and/or weight based adjustment of the mA/kV was utilized to reduce the radiation dose to as low as reasonably achievable.; CT of the lumbar spine was performed without the administration of intravenous contrast. Multiplanar reformatted images are provided for review. Adjustment of mA and/or kV according to patient size was utilized. Automated exposure control, iterative reconstruction, and/or weight based adjustment of the mA/kV was utilized to reduce the radiation dose to as low as reasonably achievable. COMPARISON: CT chest, abdomen, and pelvis from 06/26/2022 HISTORY: ORDERING SYSTEM PROVIDED HISTORY: Thoracic fx TECHNOLOGIST PROVIDED HISTORY: Thoracic fx Is the patient ?->No 26-year-old female with thoracic fracture FINDINGS: THORACIC SPINE: BONES/ALIGNMENT: Thoracic spine is imaged from C7 vertebral body level to the inferior T12 vertebral body level. Gross preservation of the visualized thoracic vertebral body heights and intervertebral disc spaces. Partially visualized deformity of the superior L1 level. Deformity/mild compression deformity of T12. DEGENERATIVE CHANGES: No gross spinal canal stenosis or bony neural foraminal narrowing of the thoracic spine. SOFT TISSUES: No paraspinal mass is seen. LUMBAR SPINE: BONES/ALIGNMENT: Lumbar spine is imaged from mid T11 vertebral body level. Deformity and mild acute compression deformity of T12 vertebral body. Unstable burst fracture of L1 with retropulsion of fracture fragments measuring 1.3 cm into the posterior spinal canal. Severe narrowing of the AP dimension of the spinal canal measuring 2 mm on image 35, series 611. These findings are well seen on image 26, series 11. These findings are well seen on image 19, series 610. DEGENERATIVE CHANGES: Severe narrowing of the spinal canal measuring 2 mm due to retropulsion of burst fracture fragments from L1. SOFT TISSUES: No paraspinal mass is seen. IMPRESSION: THORACIC SPINE: 1. Partially visualized deformity likely an unstable burst fracture of L1. 2. Deformity and mild compression deformity of T12. 3. No clear evidence for acute fracture or malalignment of the thoracic spine. LUMBAR SPINE: 1. Unstable burst fracture of L1 with retropulsion of fracture fragments by 1.3 cm into the posterior spinal canal. Severe narrowing of the AP dimension of the spinal canal measuring 2 mm. 2. Deformity and mild acute compression deformity of T12. [facility] Work Phone: [employer] Phone: Acute burst fracture of L1 with 80% height loss centrally. 1 cm retropulsion of posterior cortex of L1, contributing to severe spinal canal narrowing and moderate spinal cord compression at L1 level. T2 hyperintensity in the conus medullaris, likely related to spinal cord edema. Acute compression fracture at the anterior aspect of the inferior endplate of T12 with 15% height loss. Mild chronic compression deformities of T2, T3 and T4. Injury of the anterior longitudinal ligament at T12-L1 and posterior longitudinal ligament at T12-L1 and L1-2. Posttraumatic changes in the right psoas muscle with hematoma. Critical results were reported to Dr. Church at 3:19 p.m. on June 26, 2022. [facility] RIS CONSOLIDATED EXAMINATION: MRI OF THE THORACIC SPINE WITHOUT CONTRAST; MRI OF THE LUMBAR SPINE WITHOUT CONTRAST 06/26/2022 2:06 pm TECHNIQUE: Multiplanar multisequence MRI of the thoracic spine was performed without the administration of intravenous contrast.; Multiplanar multisequence MRI of the lumbar spine was performed without the administration of intravenous contrast. COMPARISON: CT thoracic and lumbar spine June 26, 2022 HISTORY: ORDERING SYSTEM PROVIDED HISTORY: paraplegia TECHNOLOGIST PROVIDED HISTORY: paraplegia What is the sedation requirement?->None Reason for Exam: paraplegia FINDINGS: BONES/ALIGNMENT: There is acute burst fracture of L1 with 80% height loss centrally. There is 1 cm retropulsion of posterior cortex of L1, contributing to severe spinal canal narrowing and moderate spinal cord compression at L1 level.. There is acute compression fracture at the anterior aspect of the inferior endplate of T12 with 15% height loss. No retropulsion of posterior cortex. There are mild chronic compression deformities of T2, T3 and T4 vertebral bodies with up to 15% height loss. The remainder of the vertebral body heights are grossly maintained. There is normal alignment of the thoracic and lumbar spine. SPINAL CORD: There is T2 hyperintensity in the conus medullaris, likely related to spinal cord edema. SOFT TISSUES: There is likely injury of the anterior longitudinal ligament at T12-L1 and posterior longitudinal ligament at T12-L1 and L1-2. There is posttraumatic changes in the right psoas muscle with hematoma. DEGENERATIVE CHANGES: No significant degenerative disc disease or foraminal narrowing. There is severe spinal canal narrowing and moderate spinal cord compression at L1 level secondary to retropulsion of posterior cortex of L1. Otherwise, no spinal canal narrowing in the remainder of the thoracic and lumbar spine. [facility] RIS CONSOLIDATED Esvin Syed MD - 06/26/2022 EXAMINATION: MRI OF THE THORACIC SPINE WITHOUT CONTRAST; MRI OF THE LUMBAR SPINE WITHOUT CONTRAST 06/26/2022 2:06 pm TECHNIQUE: Multiplanar multisequence MRI of the thoracic spine was performed without the administration of intravenous contrast.; Multiplanar multisequence MRI of the lumbar spine was performed without the administration of intravenous contrast. COMPARISON: CT thoracic and lumbar spine June 26, 2022 HISTORY: ORDERING SYSTEM PROVIDED HISTORY: paraplegia TECHNOLOGIST PROVIDED HISTORY: paraplegia What is the sedation requirement?->None Reason for Exam: paraplegia FINDINGS: BONES/ALIGNMENT: There is acute burst fracture of L1 with 80% height loss centrally. There is 1 cm retropulsion of posterior cortex of L1, contributing to severe spinal canal narrowing and moderate spinal cord compression at L1 level.. There is acute compression fracture at the anterior aspect of the inferior endplate of T12 with 15% height loss. No retropulsion of posterior cortex. There are mild chronic compression deformities of T2, T3 and T4 vertebral bodies with up to 15% height loss. The remainder of the vertebral body heights are grossly maintained. There is normal alignment of the thoracic and lumbar spine. SPINAL CORD: There is T2 hyperintensity in the conus medullaris, likely related to spinal cord edema. SOFT TISSUES: There is likely injury of the anterior longitudinal ligament at T12-L1 and posterior longitudinal ligament at T12-L1 and L1-2. There is posttraumatic changes in the right psoas muscle with hematoma. DEGENERATIVE CHANGES: No significant degenerative disc disease or foraminal narrowing. There is severe spinal canal narrowing and moderate spinal cord compression at L1 level secondary to retropulsion of posterior cortex of L1. Otherwise, no spinal canal narrowing in the remainder of the thoracic and lumbar spine. IMPRESSION: Acute burst fracture of L1 with 80% height loss centrally. 1 cm retropulsion of posterior cortex of L1, contributing to severe spinal canal narrowing and moderate spinal cord compression at L1 level. T2 hyperintensity in the conus medullaris, likely related to spinal cord edema. Acute compression fracture at the anterior aspect of the inferior endplate of T12 with 15% height loss. Mild chronic compression deformities of T2, T3 and T4. Injury of the anterior longitudinal ligament at T12-L1 and posterior longitudinal ligament at T12-L1 and L1-2. Posttraumatic changes in the right psoas muscle with hematoma. Critical results were reported to Dr. Church at 3:19 p.m. on June 26, 2022. [facility] Phone: Radiology Study observation (narrative) [employer] [facility] [facility] Phone: Radiology Study observation (narrative) [employer] [facility] [facility] Phone: Radiology Study observation (narrative) [employer] [facility] [facility] Phone: [facility] Panel InformationOrdered By: Esvin Syed on 06-26-2022 [employer] Phone: Test, Serumon 06-03 SHCG Negative Normal [facility] Comment on above: Performed By: #### [id number] #### [facility] [address] [place] [id number] TRAUMA PANELon 06-26-2022 Oscar Test NO SAMPLE RECEIVED [facility] Anion gap [Moles/Vol] 15 mmol/L 9 - 17 mmol/L [facility] aPTT Coag (Bld) [Time] 24.7 s [facility] Comment on above: IV Heparin Therapy Range: 48.6-77.8 Blood Bank Specimen BILL FOR SERVICES PERFORMED [facility] Carboxyhemoglobin NO SAMPLE RECEIVED % [facility] Chloride [Moles/Vol] 98 mmol/L 98 - 10 7 mmol/L [facility] CO2 [Moles/Vol] 22 mmol/L 20 - 31 mmol/L [facility] Creatinine [Mass/Vol] 0.77 mg/dL 0.50 - 0.90 mg/dL [facility] Ethanol [Mass/Vol] mg/dL NINF - 10 mg/dL [facility] Ethanol percent <0.010 NINF - 0.010 % [facility] FIO2 NO SAMPLE RECEIVED [facility] GFR/1.73 sq M.predicted MDRD (S/P/Bld) [Vol rate/Area] - PINF [facility] Comment on above: Effective Apr 04, 2022 These results are not intended for use in patients <18 years of age. eGFR results are calculated without a race factor using the 2020 CKD-EPI equation. Careful clinical correlation is recommended, particularly when comparing to results calculated using previous equations. The CKD-EPI equation is less accurate in patients with extremes of muscle mass, extra-renal metabolism of creatine, excessive creatine ingestion, or following therapy that affects renal tubular secretion. Glucose [Mass/Vol] 135 mg/dL High 70 - 99 mg/dL [facility] hCG Qual Negative NEGATIVE [facility] Comment on above: Specimens with hCG l evels near the threshold of the test (25 mIU/mL) may give a negative or indeterminate result. In such cases, another test should be performed with a new specimen in 48-72 hours. If early is suspected clinically in this setting, correlation with quantitative serum b-hCG level is suggested. [facility] has confirmed the use of plasma for this test. This has not been cleared or approved by the U.S. Food and Drug Administration. The FDA has determined that such clearance is not necessary. HCO3, Venous NO SAMPLE RECEIVED 24.0 - 30 .0 mmol/L [facility] Hematocrit (Bld) [Volume fraction] 44.3 % 36.3 - 47.1 % [facility] Hemoglobin (Bld) [Mass/Vol] 14.2 g/dL 11.9 - 15.1 g/dL [facility] INR Coag (Bld) [Relative time] 1.1 {INR} [facility] Comment on above: Therapeutic Range: Moderate Anticoagulant Intensity: INR = 2.0-3.0 High Anticoagulant Intensity: INR = 2.5-3.5 Interpretation and review of laboratory results Abnormal [facility] (?) MCH (RBC) [Entitic mass] 26.6 pg 25.2 - 33.5 pg [facility] (?) MCHC (RBC) [Mass/Vol] 32.1 g/dL 28.4 - 34.8 g/dL [facility] MCV (RBC) [Entitic vol] 83.0 fL 82.6 - 102.9 fL [facility] Methemoglobin NO SAMPLE RECEIVED % [facility] Mode NO SAMPLE RECEIVED [facility] Negative Base Excess, [place] NO SAMPLE RECEIVED 0.0 - 2.0 mmol/L [facility] NOTIFICATION NO SAMPLE RECEIVED [facility] NOTIFICATION TIME NO SAMPLE RECEIVED [facility] NRBC Automated 0.0 0.0 per 100 WBC [facility] O2 Device/Flow/% NO SAMPLE RECEIVED [facility] O2 Sat, [place] NO SAMPLE RECEIVED % [facility] [employer] Oxyhemoglobin NO SAMPLE RECEIVED 95.0 - 98.0 % [facility] pCO2, [place] NO SAMPLE RECEIVED [facility] [place] pCO2, [place], Temp Adj NO SAMPLE RECEIVED [facility] (?) Peep/Cpap NO SAMPLE RECEIVED [facility] [place] pH, [place] NO SAMPLE RECEIVED 7.320 - 7.420 [facility] (?) pH, [place], Temp Adj NO SAMPLE RECEIVED 7.320 - 7. 420 [facility] Platelet distribution width (Bld) [Ratio] 13.8 % 11.8 - 14.4 % [facility] Platelet mean volume (Bld) [Entitic vol] 10.5 fL 8.1 - 13.5 fL [facility] Platelets (Bld) [#/Vol] 393 10*3/uL [facility] pO2, [place] NO SAMPLE RECEIVED [facility] [place] pO2, [place], Temp Adj NO SAMPLE RECEIVED [facility] Positive Base Excess, [place] NO SAMPLE RECEIVED 0.0 - 2.0 mmol/L [facility] Potassium [Moles/Vol] 4.1 mmol/L 3.7 - 5.3 mmol/L [facility] Comment on above: SPECIMEN MODERATELY HEMOLYZED, RESULTS MAY BE ADVERSELY AFFECTED PSV NO SAMPLE RECEIVED [facility] [place] PT Coag (PPP) [Time] 11.5 s [facility] Pt Temp NO SAMPLE RECEIVED [facility] [place] Pt. Position NO SAMPLE RECEIVED [facility] RBC (Bld) [#/Vol] 5.34 10*6/uL High 3.95 - 5.1 1 m/uL [facility] Respiratory Rate NO SAMPLE RECEIVED [facility] Sample Site NO SAMPLE RECEIVED [facility] [employer] Collar Set Rate NO SAMPLE RECEIVED [facility] [place] Sodium [Moles/Vol] 135 mmol/L 135 - 144 mmol/L [facility] Text for Respiratory NO SAMPLE RECEIVED [facility] Total Hb NO SAMPLE RECEIVED 12.0 - 16 .0 g/dl [facility] Total Rate NO SAMPLE RECEIVED [facility] [place] Urea nitrogen (BldV) [Mass/Vol] 9 mg/dL 6 - 20 mg/dL [facility] VT NO SAMPLE RECEIVED [facility] [place] WBC (Bld) [#/Vol] 24.2 10*3/uL High [facility] TROPONINon 06-26-2022 Interpretation and review of laboratory results Abnormal [facility] Troponin High Sensitivity 209.90 ng/L Critically high 0.00 - 15.00 ng/L [facility] Comment on above: Clear elevation of T roponin I, High Sensitivity consistent with myocardial injury or infarction. Interpretation is highly dependent on clinical presentation and patient history. New troponin elevations are concerning and urgent assessment in an emergency department may be indicated in the appropriate clinical context. [facility] TYPE AND SCREENon 06-26-2022 ABO/Rh Positive [facility] Arm Band Number [id number] [facility] Expiration Date 06/29/2022,2359 [facility] Troponin-HSon 06-26-2022 TROP-HS 209.90 ng/L Critically high 0.00-15.00 [facility] Comment on above: Order Comment: Criti aakash result called to Mayelin Mcclure RN at 02:49 on 06/26/2022 by LINDY Carrera Anne. Results were read back to caller. (TROP-HS) Result Comment: Laura r elevation of Troponin I, High Sensitivity consistent with myocardial injury or infarction. Interpretation is highly dependent on clinical presentation and patient history. New troponin elevations are concerning and urgent assessment in an emergency department may be indicated in the appropriate clinical context. Performed By: #### 1 [id number] #### [facility] [address] [place] [id number] LAMOTRIGINEon 06-07-2022 Lamotrigine, Serum 3.0 ug/mL Normal 2.0-20.0 [facility] Comment on above: Result Comment: Dete ction Limit = 1.0 Performed By: #### L AMOT #### [facility] [address] [address] [address] Mary Jo Charles PROGESTERONEon 01-13-2022 Progesterone 0.1 ng/mL Normal [facility] Comment on above: Result Comment: Foll icular phase 0.1 - 0.9 Luteal phase 1.8 - 23.9 Ovulation phase 0.1 - 12.0 First trimester 11.0 - 44.3 Second trimester 25.4 - 83.3 Third trimester 58.7 - 214.0 Postmenopausal 0.0 - 0.1 Performed By: #### P BETZAIDA #### [facility] [address] [address] [address] Mary Jo Charles ACETAMINOPHEN LEVELon 2018 Acetaminophen [Mass/Vol] <10 10 - 30 ug/mL [facility] ALCOHOL (ETHANOL),BLOODon Ethanol [Mass/Vol] mg/dL 0 - 10 mg/dL [facility] Comment on above: ETOH: % = MG/DL DIVIDED BY 1000 CBC, EDIF, PLATELETon 2018 Erythrocyte distribution width (RBC) [Ratio] 15.0 % High 11.5 - 14.5 % [facility] Hematocrit (Bld) [Volume fraction] 44.5 % 37 - 47 % [facility] Hemoglobin (Bld) [Mass/Vol] 13.5 g/dL 12 - 16 g/dL [facility] Interpretation and review of laboratory results Abnormal [facility] MCH (RBC) [Entitic mass] 24.0 pg Low 28 - 32 pg [facility] MCHC (RBC) [Mass/Vol] 30.3 g/dL Low 33 - 37 g/dL [facility] MCV (RBC) [Entitic vol] 79.3 fL Low 81 - 99 fL [facility] Platelets (Bld) [#/Vol] 461 10*3/uL High [facility] Platelets LM Ql (Bld) INCREASED ADEQUATE [facility] RBC (Bld) [#/Vol] 5.61 10*6/uL High [facility] RBC morphology finding Nom (Bld) NORMAL NORMAL [facility] SCAN SLIDE NO NO [facility] WBC corrected for nucl RBC Auto (Bld) [#/Vol] 11.6 High [facility] COMPREHENSIVE METABOLIC PROF ILE Johnathan 10-22-2018 Albumin BCG dye [Mass/Vol] 4.5 g/dL 3.5 - 5 g/dL [facility] Albumin/Globulin [Mass ratio] 1.3 {ratio} [facility] ALP [Catalytic activity/Vol] 87 U/L 38 - 126 U/L [facility] ALT No additional P-5'-P [Catalytic activity/Vol] 123 U/L High 7 - 35 U/L [facility] Anion gap [Moles/Vol] 11.3 mmol/L [facility] AST [Catalytic activity/Vol] 43 U/L High 10 - 42 U/L [facility] Bilirubin [Mass/Vol] 0.7 mg/dL 0.3 - 1 .2 mg/dL [facility] Calcium [Mass/Vol] 9.2 mg/dL 8.4 - 10. 2 mg/dL [facility] Chloride [Moles/Vol] 105 mmol/L [facility] CO2 [Moles/Vol] 25 mmol/L [facility] Creatinine [Mass/Vol] 0.7 mg/dL 0.4 - 1.1 mg/dL [facility] GFR/1.73 sq M.predicted MDRD (S/P/Bld) [Vol rate/Area] mL/min/{1.73_m2} [facility] Comment on above: Estimated Glomerular filtration Rate Reference Ranges: GFR, mL/min/1.73m2 >= 60 Adequate 30 - 59 Moderately decreased GFR 15 - 29 Severely decreased GFR <18 Kidney failure (or dialysis) GFR calculated using abbreviated MDRD formula. MDRD equation not suitable for patients who are under 18, have unstable creatinine concentrations Globulin (S) [Mass/Vol] 3.6 g/dL High 2.9 - 3.3 g/dL [facility] Glucose [Mass/Vol] 114 mg/dL 70 - 126 mg/dL [facility] Potassium [Moles/Vol] 3.3 mmol/L Low [facility] Protein [Mass/Vol] 8.1 g/dL 6.4 - 8.3 g/dL [facility] Sodium [Moles/Vol] 138 mmol/L [place] [facility] [employer] [facility] Urea nitrogen [Mass/Vol] 8 mg/dL 7 - 22 mg/dL [facility] DRUGS OF ABUSE PROFILE, URIN Hermila 10-22-2018 Acetaminophen+Phenacet in Screen Ql (U) Negative NEG [facility] Amphetamine cutoff Screen (U) [Mass/Vol] Positive NEG [facility] Barbiturate Negative NEG [facility] Benzodiazepines Ql (U) Negative NEG [facility] Cannabinoids Screen Ql (U) Positive NEG [facility] Cocaine Metabolite Negative NEG [place] [facility] [employer] [facility] [facility] Methadone Confirm (Steven) [Mass/Vol] Negative NEG [facility] Methamphetamine Confirm (Steven) [Mass/Vol] Positive NEG [facility] Opiates Ql (U) Negative NEG [facility] Phencyclidine Ql (U) Negative NEG [facility] TRICYCLIC ANTIDEPRESSANTS, URINE Negative NEG [place] [facility] Comment on above: APAP- CUT-OFF CONCEN TRATION IS 5 NG/ML AMP - CUT-OFF CONCENTRATION IS 1000 NG/ML mAMP- CUT-OFF CONCENTRATION IS 1000 NG/ML BAR - CUT-OFF CONCENTRATION IS 300 NG/ML BZO - CUT-OFF CONCENTRATION IS 300 NG/ML MTD - CUT-OFF CONCENTRATION IS 300 NG/ML IMER - CUT-OFF CONCENTRATION IS 300 NG/ML OPI - CUT-OFF CONCENTRATION IS 300 NG/ML PCP - CUT-OFF CONCENTRATION IS 25 NG/ML THC - CUT-OFF CONCENTRATION IS 50 NG/ML TCA - CUT-OFF CONCENTRATION IS 1000 NG/ML SCREENING TEST TO BE USED FOR MEDICAL PURPOSES ONLY HCG QUALITATIVE, URINEon Beta HCG ( test) Ql (U) Negative [facility] LITHIUM LEVELon 10-22-2018 Interpretation and review of laboratory results Abnormal [facility] [place] [Moles/Vol] mmol/L Low 0.6 - 1. 2 mmol/L [facility] Comment on above: Many variables influ ence therapeutic and toxic ranges; results should be interpreted in conjunction with clinical status of patient. MANUAL DIFFERENTIALon 2018 Band form neutrophils/100 WBC (Bld) 0 % 0 - 4 % [facility] Basophils/100 WBC (Bld) 0 % 0 - 3 % [facility] Blasts/100 WBC (Bld) 0 % 0 - 0 % [facility] Eosinophils/100 WBC (Bld) 0 % 0 - 4 % [facility] Lymphocytes/100 WBC (Bld) 23 % 21 - 51 % [facility] Metamyelocytes/100 WBC (Bld) 0 % 0 - 0 % [facility] Monocytes/100 WBC (Bld) 6 % 0 - 13 % [facility] Myelocytes/100 WBC (Bld) 0 % 0 - 0 % [facility] Nucleated RBC/100 WBC (Bld) [Ratio] 0 % [facility] Promyelocytes/100 WBC (Bld) 0 % 0 - 0 % [facility] Segmented neutrophils/100 WBC (Bld) 71 % 42 - 75 % [facility] Otheron 10-22-2018 Interpretation and review of laboratory results Abnormal [facility] SALICYLATE LEVELon 9 Salicylates [Mass/Vol] mg/dL Low 10 - 30 mg/dL [facility] TSH W/ FREE T4on 10-22-2018 Free T4 [Mass/Vol] 1.04 ng/dL 0.61 - 1. 12 ng/dL [facility] TSH Qn 0.612 m[IU]/L [facility] U/A WITH MICROSCOPICon 10-22 Bacteria LM Ql (Urine sed) NONE SEEN NONE SEEN [facility] C & S INDICATED NO NO [facility] Casts LM.LPF (Urine sed) [#/Area] NONE SEEN NONE SEEN /lpf [facility] Epithelial cells.squamous LM.HPF (Urine sed) [#/Area] 3-5 NONE SEEN /hpf [facility] Mucus Ql (Urine sed) 1+ THREADS NONE SEEN [facility] RBC LM.HPF (Urine sed) [#/Area] 5-10 NONE SEEN /hpf [facility] Unidentified crystals LM Ql (Urine sed) NONE SEEN NONE SEEN [facility] WBC LM.HPF (Urine sed) [#/Area] 0-2 [facility] URINALYSIS WITH REFLEX CULTU REon 10-22-2018 Appearance (U) SL CLOUDY CLEAR [facility] BILIRUBIN, URINE DIPSTICK MODERATE NEGATIVE [facility] BLOOD, URINE DIPSTICK MODERATE NEGATIVE [facility] Color (U) YELLOW YELLOW [facility] GLUCOSE, URINE DIPSTICK Negative NEGATIVE mg/dL [facility] KETONES, URINE DIPSTICK 15 mg/dL NEGATIVE [facility] LEUKOCYTE ESTERASE, URINE DIPSTK Negative NEGATIVE [facility] Microscopic observation LM Nom (Urine sed) YES NO [facility] Nitrate Ql (U) Negative NEGATIVE [facility] PH, URINE DIPSTICK 6.0 [facility] Protein (U) [Mass/Vol] 30 mg/dL NEGATIVE [facility] SPECIFIC GRAVITY, URINE DIPSTICK 1.025 [facility] UROBILINOGEN, URINE DIPSTICK 1.0 [facility] Wound cult/smear, aeron 12-3 INR Coag RelTime (Bld) Gram stain result No WBC's seen Rare Gram negative bacilli Few Gram positive cocci in pairs ORGANISM 1: Enterobacter cloacaeAmount of growth ManyComments Normal skin tobias also isolated Enterobacter cloacae: REACTION Cefepime <=4 S Cefotaxime <=2 S Ceftazidime <=1 S Ceftriaxone 16 I Ciprofloxacin <=1 S Ertapenem <=2 S Gentamicin <=4 S Imipenem <=1 S Meropenem <=1 S Levofloxacin <=2 S Pipercillin/Tazobactam <=16 S Tetracycline <=4 S Ticarcillin/K Clavulanate <=16 S Trimethoprim/Sulfameth oxazole <=2/38 S Normal [facility] Comment on above: Order Comment: CHARLEY BUCKLEY INCISION CULTUREAdditional Instructions INCISION CULTURE Performed By: #### L 800.0100, L800.0300, L800.0400, L800.4806 ####Main Laboratory ([facility])[address], [place] [phone] Nivar, MD Wound cult/smear, aeron 12- Wound cult/smear, aer Gram stain result No WBC's seen Rare Gram positive cocci in pairs No pathogens isolated, normal skin tobias present. Normal [facility] Comment on above: Order Comment: INCIS IONAL INFECTION UNSPECIFIED BODY REGIONAdditional Instructions INCISIONAL INFECTION UNSPECIFIED BODY REGION Performed By: #### L 800.0100, L800.0300, L800.0400, L800.4806 ####Main Laboratory ([facility])[address], [place] [phone] Nivar, MD Anesthesia Post-Op Evaluatio non 06-04-2018 Anesthesia Post-Op Evaluation [facility] Medical Records Patient: KAYLEEN PETE [address] : 1995 [place], [place] [address] Location: OB [phone] Unit #: [id number] Anesthesia Post-Op Evaluation Barbara Guzman CAKE WINDER Service Dt/Tm: 05/31/18 0935 Anesthesia Post Inpatient Eval Blood Pressure: 132/84 Pulse Rate: 86 Respiratory Rate: 16 Oxygen Saturation%: 99 Temperature: 97.5 F Patient: Awake AND Able to Participate Airway Status: Normal Evaluation: Respiratory and Cardiovascular within Normal Limits: Yes, Pain Controlled: Yes, Nausea and Vomiting Controlled: Yes, Well Hydrated: Yes, Dental Injury: No, Complications: No Patient Experience/Comments: Pt previously complained of headache. pt states recumbent position more comfortable than lying flat. Pt converted to oral pain meds from MEDICAL BILLING SPECIALIST. Pt states she is feeling much better. Entered by: Barbara Guzman CRNA on 05/31/18934 Report Signed by: Barbara Guzman CRNA on 05/31/1837 < > Co-Signed by: Troy Kelley MD on 06/04/18 0934 < > Normal [facility] Prog Not hermila 06-04-2018 Prog Note [facility] Medical Records Patient: KAYLEEN PETE [address] : 1995 [place], [place] [address] Location: OB [phone] Unit #: [id number] Prog Note Lenora Peña CNM Service Dt/Tm: 05/31/181809 - Subjective Patient doing well. Pain not well controlled. Mild Lochia. BBottlefeeding without difficulty. Mendoza present. Passing flatus. - Objective Vital Signs: Last Vital Signs Temp Pulse Resp BP Pulse Ox 98.0 F 82 19 126/73 99 05/31/18 16:07 05/31/18 16:07 05/31/18 16:07 05/31/18 16:07 05/31/18 16:07 General: Alert, Resting Comfortably - appears pink Abdomen: Soft, Fundus firm, Bowel Sounds - minimal. No: Tenderness with palpation Incision: Dressing C/D/I Extremities: Warm and Dry, Edema Labs: Laboratory Results - last 24 hr WBC 16.8 H WBC RBC Hgb Hct Amphetamines - Urine: Negative Barbiturates - Urine: Negative Benzodiazepines - Urine: Negative Cannabinoids - Urine: Negative Cocaine - Urine: Negative Opiates - Urine: Negative Oxycodone - Urine: Negative Phencyclidine - Urine: Negative Assessment: Status post section. Day 1. Plan: D/C morphone MEDICAL BILLING SPECIALIST and switch to oral percocet. Get out of bed. Shower. D/C mendoza. Supportive care, walking, pain medications, observation for bleeding. Entered by: Lenora Peña CNM on 05/31/181809 Report Signed by: Lenora Peña CNM on 05/31/181811 < > Co-Signed by: Audrey Rao MD on 06/04/18 0647 < > Normal [facility] CBC with Differentialon 05-04 Abs Baso Count 0 /cmm Normal 0-200 [facility] Comment on above: Performed By: #### L 800.0100, L800.0300, L800.0400, L800.4806 ####Main Laboratory ([facility])[address], [place] [phone] Nivar, MD Abs Eos Count 0 /cmm Normal 0-500 [facility] Comment on above: Performed By: #### L 800.0100, L800.0300, L800.0400, L800.4806 ####Main Laboratory ([facility])[address], [place] [phone] Nivar, MD Abs Branch Count 1200 /cmm High 0-800 [facility] Comment on above: Performed By: #### L 800.0100, L800.0300, L800.0400, L800.4806 ####Main Laboratory ([facility])[address], [place] [phone] Nivar, MD Abs Neut Count 94535 /cmm High 8233-4951 [facility] Comment on above: Performed By: #### L 800.0100, L800.0300, L800.0400, L800.4806 ####Main Laboratory ([facility])[address], [place] [phone] Nivar, MD Basophils Auto #/vol (Bld) 0.2 % Normal 0-2 [facility] Comment on above: Performed By: #### L 800.0100, L800.0300, L800.0400, L800.4806 ####Main Laboratory ([facility])[address], [place] [phone] Nivar, MD EOS-Auto Diff 0.2 % Normal 0-6 [facility] Comment on above: Performed By: #### L 800.0100, L800.0300, L800.0400, L800.4806 ####Main Laboratory ([facility])[address], [place] [phone] Nivar, MD Erythrocyte distribution width Auto Ratio (RBC) 13.5 % Normal 12.0-16.0 [facility] Comment on above: Performed By: #### L 800.0100, L800.0300, L800.0400, L800.4806 ####Main Laboratory ([facility])[address], [place] [phone] Nivar, MD Hematocrit Auto Volume Fraction (Bld) 32.0 % Low 35.0-44.0 [facility] Comment on above: Performed By: #### L 800.0100, L800.0300, L800.0400, L800.4806 ####Main Laboratory ([facility])[address], [place] [phone] Nivar, MD Hemoglobin mass conc (Bld) 10.3 g/dL Low 12.0-15.0 [facility] Comment on above: Performed By: #### L 800.0100, L800.0300, L800.0400, L800.4806 ####Main Laboratory ([facility])[address], [place] [phone] Nivar, MD Hypochromasia 1+ Normal [facility] Comment on above: Performed By: #### L 800.0100, L800.0300, L800.0400, L800.4806 ####Main Laboratory ([facility])[address], [place] [phone] Nivar, MD Lymphocytes Auto #/vol (Bld) 1700 /cmm Normal 5386-0579 [facility] Comment on above: Performed By: #### L 800.0100, L800.0300, L800.0400, L800.4806 ####Main Laboratory ([facility])[address] [place] [phone] Nivar, MD Lymphocytes/100 WBC Auto (Bld) 10.4 % Low 15-45 [facility] Comment on above: Performed By: #### L 800.0100, L800.0300, L800.0400, L800.4806 ####Main Laboratory ([facility])[address] [place] [phone] Nivar, MD MCH Auto Entitic mass (RBC) 26.4 pg Low 27.5-33.0 [facility] Comment on above: Performed By: #### L 800.0100, L800.0300, L800.0400, L800.4806 ####Main Laboratory ([facility])[address] [place] [phone] Nivar, MD MCHC Auto mass conc (RBC) 32.3 g/dL Low 33.0-36.0 [facility] Comment on above: Performed By: #### L 800.0100, L800.0300, L800.0400, L800.4806 ####Main Laboratory ([facility])[address] [place], [place] [phone] Nivar, MD MCV Auto Entitic volume (RBC) 81.7 CU EHSAN Normal 80-97 [facility] Comment on above: Performed By: #### L 800.0100, L800.0300, L800.0400, L800.4806 ####Main Laboratory ([facility])[address] [place] [phone] Nivar, MD Branch- Auto Diff 7.4 % Normal 2-10 [facility] Comment on above: Performed By: #### L 800.0100, L800.0300, L800.0400, L800.4806 ####Main Laboratory ([facility])[address], [place] [phone] Nivar, MD Neut-Auto Diff 81.8 % High 40-70 [facility] Comment on above: Performed By: #### L 800.0100, L800.0300, L800.0400, L800.4806 ####Main Laboratory ([facility])[address], [place] [phone] Nivar, MD NRBC-Auto 0.1 /100 WBC Normal <1 [facility] Comment on above: Performed By: #### L 800.0100, L800.0300, L800.0400, L800.4806 ####Main Laboratory ([facility])[address], [place] [phone] Nivar, MD Platelets Auto #/vol (Bld) 302 th/cmm Normal 150-400 [facility] Comment on above: Performed By: #### L 800.0100, L800.0300, L800.0400, L800.4806 ####Main Laboratory ([facility])[address], [place] [phone] Nivar, MD RBC Auto #/vol (Bld) 3.92 mil/cmm Low 4.00-5.[address] [facility] Comment on above: Performed By: #### L 800.0100, L800.0300, L800.0400, L800.4806 ####Main Laboratory ([facility])[address], [place] [phone] Nivar, MD WBC Auto #/vol (Bld) 16.8 th/cmm High 4.4-10.5 [facility] Comment on above: Performed By: #### L 800.0100, L800.0300, L800.0400, L800.4806 ####Main Laboratory ([facility])[address], [place] [phone] Nivar, MD MRSA Screen,Nasal Rapidon Nasal MRSA Screen Negative Normal Negative [facility] Comment on above: Result Comment: Meth odology: Nucleic Acid Amplification (Polymerase Chain Reaction,PCR) Performed By: #### L 800.0100, L800.0300, L800.0400, L800.4806 ####Main Laboratory ([facility])[address], [place] [phone] Nivar, MD Procedure Note - Generalon 1 07-31-2017 Protein mass conc [facility] Medical Records Patient: KAYLEEN PETE [address] : 1995 [place], [place] [address] Location: OB [phone] Unit #: [id number] Procedure Note - General Audrey Rao ([facility]) Service Dt/Tm: 05/30/18 2300 PRE-OP DX: 37+6 WKS GESTATION GESTATIONAL HTN FAILURE TO PROGRESS ARREST OF DESCENT POST-OP DX: SAME PROCEDURE: PRIMARY LTCS SURGEON: DR. AUDREY RAO IVF 1300 CRYSTALLOID EBL 800 CC U/O 200 CC COMPLIC: NONE BABY: LIVE FEMALE , APGARS 8/8 , WT 6#0 PROCEDURE: AFTER PROPER CONSENT WAS OBTAINED, PT WAS BROUGHT BACK TO THE O.R. WHERE SPINAL ANESTHESIA WAS ATTEMPTED MULTIPLE TIMES. AFTER TRYING FOR OVER AN HOUR, THE DECISION WAS MADE TO DO THE CASE UNDER GENERAL ANESTHESIA. PT WAS PREPPED AND DRAPED IN NORMAL STERILE FASHION. GENERAL ANESTHESIA WAS ADMINISTERED. A PFANENSTEIL SKIN INCISION WAS MADE WITH A SCALPEL AND BROUGHT DOWN TO THE UNDERLYING FACSIA. FASCIA WAS NICKED AT THE MIDLINE AND THIS INCISION WAS LATERALLY EXTENDED USING CAMPOS SCISSORS. THE UNDERLYING ABDOMINAL MUSCLES WERE QUICKLY DISSECTED AWAY FROM THE RECTUS FASCIA. THE MUSCLES WERE AT MIDLINE, THE PERITONEUM WAS IDENTIFIED AND BLUNTLY ENTERED. AN ADILENE-O SELF-RETAINING RETRACTOR WAS PLACED. A BLADDER FLAP WAS CREATED. THE LOWER UTERINE SEGMENT WAS IDENTIFIED AND SHARPLY ENTERED WITH A SCALPEL. THIS INCISION WAS MANUALLY EXTENDED. AMNIOTOMY WAS PERFORMED. BABY WAS FOUND TO BE IN CEPHALIC PRESENTATION - IN DEEP TRANSVERSE ARREST. THE HEAD WAS CAREFULLY LIFTED OUT OF THE MATERNAL PELVIS AND WAS DELIVERED NON-TRAUMATICALLY - LOOSE CORD AROUND THE NECK - AND THE REST OF THE BABY WAS DELIVERED WITHOUT DIFFICULTY. THE BABY WAS BULB SUCTIONED, THE CORD WAS CLAMPED AND CUT, AND THE BABY WAS HANDED OFF TO AWAITING NURSES. THE PLACENTA WAS DELIVERED MANUALLY AND THE UTERUS WAS CLEARED OF ALL MEMBRANES. THE INCISION WAS VIEWED IN ITS ENTIRETY AND WAS FOUND TO HAVE NO EXTENSIONS OR LACERATIONS. THE UTERINE INCISION WAS CLOSED WITH 0-VICRYL IN A RUNNING LOCKED SUTURE, IN A DOUBLE LAYER STITCH. EXCELLENT HEMOSTASIS WAS NOTED. THE UTERUS WAS FIRM. TUBES AND OVARIES APPEARED NORMAL. EXCELLENT HEMOSTASIS WAS AGAIN NOTED. AT THIS POINT ALL SPONGES AND INSTRUMENTS WERE REMOVED FROM THE PTS ABDOMEN. INTERCEED WAS PLACED OVER THE UTERINE INCISION. THE FASCIA WAS REAPPROXIMATED USING 0-VICRYL IN A RUNNING STITCH. THE SUBCUTANEOUS TISSUE WAS REAPPROXIMATED WITH 0-VICRYL. THE SKIN WAS CLOSED WITH JERRICA. TELFA AND FOAM TAPE WERE USED DRESSING. PT TOLERATED THE SURGERY WELL. ALL COUNTS WERE CORRECT AND PT WAS BROUGHT TO RECOVERY IN STABLE CONDITION. Entered by: Audrey KRISHNA)MD on 05/30/182299 Report Signed by: Audrey Rao MD on 05/30/182307 < > Co-Signed by: on Normal [facility] APTTon 05-30-2018 aPTT Coag time (Bld) 25.9 Sec Normal 23.0-38.0 [facility] Comment on above: Order Comment: Is Pa tient receiving Heparin? No Result Comment: APTT of 50.5 to 78.0 secondsrepresents therapeutic rangefor heparin (unfractionated) for[place].This corresponds to a heparinconcentration of 0.3 to 0.7 IU/ml. Performed By: #### L 800.0100, L800.0300, L800.0400, L800.4806 ####Main Laboratory ([facility])[address] [place], [place] [phone] Nivar, MD History and Physicalon 05-30 History and Physical [facility] Medical Records Patient: KAYLEEN PETE [address] : 1995 [place], [place] [address] Location: OB [phone] Unit #: [id number] History and Physical Audrey Rao MD (LMA) Service Date: 05/30/18 22 YO @ 37 6/7 WKS GESTATION - IOL DUE TO GESTATIONAL HTN - BPS 140S/90 SINCE 32 WEEKS. SERIAL PIH LABS WNL; EFW AT 36 WKS WAS 6#1. PT HAD A MENDOZA BALLOON PLACED TRANSCERVICALLY 05/29/18 - WHEN EXPULSED, 4CM/60%. PITOCIN INFUSION WAS STARTED THIS MORNING. SHE RECEIVED AN EPIDURAL AND AMNIOTOMY WAS PERFORMED. INTERNAL MONITORS WERE PLACED. AFTER SEVERAL HOURS OF ADEQUATE CONTRACTIONS, PT DID NOT PROGRESS PAST 5-6/80/-2. FHTS HAVE BEEN REASSURRING DURING THE MAJORITY OF THE LABOR PROCESS. BPs HAVE RANGED FROM 110/60 - 140s/80-90s. +GBS - PT RECEIVED MULTIPLE DOSES OF ABX. FOR FULL HISTORY SEE FLOWSHEET. PMH - PSYCH HISTORY, ?LUPUS (PER PT) PSH - TONSILLECTOMY SH - +SMOKER, +ENERGY DRINKS THROUGHOUT FHX - non-contrib ROS - NEG PHYSICAL EXAM: AVSS HEENT - WNL HEART - RRR LUNGS - CTA ABD - GRAVID, SOFT FHT 140S REACTIVE, GOOD VARIABILITY CTX 2-3 MIN SVE - 5-6/80/-2 +CAPUT AND MOULDING OF HEAD EXT - NO EDEMA ASSESSMENT/PLAN: 37+ WKS GESTATION GESTATIONAL HTN ARREST OF DILATION FAILURE TO DESCEND D/W PT AND F.O.B. - AGREE TO PRIMARY DELIVERY cc: Audrey Rao MD; Wendy Suazo MD Dictated by: Audrey Rao MD (LMA) on 05/30/182057 Entered by: Audrey Rao MD (LMA) on 05/30/182057 Report Signed by: Audrey Rao MD on 05/30/182108 < > Co-Signed by: on Normal [facility] Nonstress Test Reporton 11 Nonstress Test Report [facility] Medical Records Patient: KAYLEEN PETE[address] : 1995 [place] [address] Location: OB [phone] Unit #: [id number] Nonstress Test Report Audrey Rao MD (LMA) SUBJECTIVE: This 22y.o. patient presented @ 36+1 WKS on 05/18/18 complaining of HEADACHE - H/O GESTATIONAL HTN. OBJECTIVE: PIH LABS WNL; BP 134/70 Indication for NST: SENT BY DR/ELEVATED BP Heart Rate: Baseline Heart Rate: 130S Accelerations: Present Decelerations: None Variability: Moderate Contraction Frequency: NONE The NST was reactive level 1. ASSESSMENT AND PLAN: Discharged to home in stable condition and instructed to follow up at her next scheduled appointment. Audrey aRo MD (LMA) cc: Audrey Rao MD; Wendy Suazo MD Dictated by: Audrey Rao MD (LMA) on 05/18/182311 Entered by: Audrey Rao MD (LMA) on 05/29/182311 Report Signed by: Audrey Rao MD on 05/29/182313 < > Co-Signed by: on Normal [facility] Prog Note - H&P Update Stamp on 05-30-2018 Protein mass conc [facility] Medical Records Patient: KAYLEEN PETE [address] : 1995 [place] [address] Location: [phone] Unit #: [id number] Prog Note - HANDP Update Stamp Jocelyn Bowen CNM Service Dt/Tm: 05/30/18922 - HANDP dictated by Medical Staff Member Patient examined, Chart Reviewed: HANDP updated with the following information - Pt. is here for Induction of labor gestational hypertension at 39 completed weeks gestation. No severe features. Entered by: Jocelyn Bowen CNM on 05/30/18922 Report Signed by: Jocelyn Bowen CNM on 05/30/18 09 < > Co-Signed by: on Normal [facility] Progress Note Obstetricson 1 07-30-2017 Protein mass conc [facility] Medical Records Patient: KAYLEEN PETE [address] : 1995 [place], [place] [address] Location: OB [phone] Unit #: [id number] Progress Note Obstetrics Jocelyn Bowen [facility] Service Dt/Tm: 05/30/18 1503 Subjective KAYLEEN PETE is a 22 yr old F who was admitted on 05/29/18 for . S: Pt. is very comfortable now after second epidural placement. O: Pt. is a 22yo MAKENNA 06/14/2018 here for induction of labor with pitocin. Cx /-2 cephalic. AROM clear fluid. Pt. has first dose of PCN in for GBS prophylaxis. FHT CAT 1. Ctx. irregular mild on palpation. A: Induction of labor for gestational hypertension no severe features. P: Start pitocin to augment labor contractions to MVU 150-200. Observe for well being. Call if any concerns. S: Pt. having pain like cramping in her left leg. Pt. is currently on left side with pillow between knees. Objective Hemodynamics: Vital Signs - Last Set Pulse Rate 99 05/30/18 01:08 Respiratory Rate 18 05/30/18 01:08 Blood Pressure 121/70 05/30/18 01:08 Oxygen Saturation% 99 05/30/18 01:08 Daily Weight: Admitting (IV Pump) Weight 121.11 kg Actual Weight (Kg) 121.109 kg General: Positive: Alert HEENT: Positive: Normal Inspection Skin: Positive: Color Normal, Warm, Dry Cardiovascular: Positive: Regular Rate and Rhythm Lungs: Positive: Deferred Abdomen: Positive: Soft Psychological: Positive: Mood AND Affect Normal - Cx. is unchanged but vtx is at -2 station on vaginal exam. pt. is wanting better pain control. will notify anesthesia. Results: Laboratory Results - last 24 hr WBC RBC Hgb Hct MCV MCH MCHC RDW Plt Count Neut % (Auto) WBC 12.9 H RBC 4.50 Hgb 12.1 Hct 36.6 MCV 81.4 MCH 27.0 L MCHC 33.2 RDW 13.7 Plt Count 344 Neut % (Auto) 77.0 H Medications: Current Medications Acetaminophen (Tylenol Es) 1,000 mg PO Q4HPRN PRN PRN Reason: HEADACHE Stop: 09/05/18 18:11 Last Admin: 05/30/18 09:50 Dose: 1,000 mg Butorphanol Tartrate (Stadol) 1 mg IV PUSH PRN PRN PRN Reason: FOR PAIN IF NUBAIN INEFFECTIVE Stop: 09/05/18 18:11 Lactated Ringer's (Lr) 1,000 mls @ 0 mls/hr IV DIRECTED ALIYAH Stop: 09/05/18 18:11 Last Admin: 05/30/18 13:37 Dose: 999 mls/hr Oxytocin 10 units/ Lactated (Ringer's) 1,001 mls @ 100.1 mls/hr IV DIRECTED PRN; Protocol PRN Reason: SEE LABEL COMMENTS Stop: 09/05/18 18:11 Last Admin: 05/30/18 08:59 Dose: 1 units/hr, 100.1 mls/hr Oxytocin 20 units/ Lactated (Ringer's) 1,002 mls @ 0 mls/hr IV DIRECTED PRN PRN Reason: SEE LABEL COMMENTS Stop: 09/05/18 18:11 Oxytocin 10 units/ Lactated (Ringer's) 1,001 mls @ 0 mls/hr IV DIRECTED PRN PRN Reason: SEE LABEL COMMENTS Stop: 09/06/18 00:06 Lactated Ringer's (Lr) 1,000 mls @ 0 mls/hr IV BOLUS [facility] Stop: 05/30/18 23:59 Ropivacaine 12 ml/ Fentanyl Citrate 150 mcg/ Sodium Chloride 60 mls @ 0 mls/hr EPID DIRECTED ALIYAH Stop: 09/06/18 05:31 Last Admin: 05/30/18 13:00 Dose: 12 mls/hr Penicillin G Potassium 2.5 mu/ (Sodium Chloride) 100 mls @ 100 mls/hr IVPB Q4H ALIYAH Stop: 06/06/18 10:01 Last Admin: 05/30/18 13:37 Dose: 100 mls/hr Methylergonovine Maleate (Methergine Inj) 0.2 mg IM PRN PRN PRN Reason: HEAVY BLEEDING Stop: 09/05/18 18:11 Nalbuphine HCl (Nubain) 10 mg IV PUSH Q2HPRN PRN PRN Reason: Pain Stop: 09/05/18 18:11 Last Admin: 05/30/18 01:08 Dose: 10 mg Ondansetron HCl (Zofran) 4 mg IV PUSH Q4HPRN PRN PRN Reason: Nausea and Vomiting Stop: 09/05/18 18:11 Promethazine HCl (Phenergan) 12.5 mg IV PUSH Q4HPRN PRN PRN Reason: Nausea and Vomiting Stop: 09/05/18 18:11 Last Admin: 05/30/18 01:08 Dose: 12.5 mg Zolpidem Tartrate (Ambien) 10 mg PO QHSPRN PRN PRN Reason: Sleep Stop: 09/05/18 18:11 Entered by: Jocelyn Bowen CNM on 05/30/18 1503 Report Signed by: Jocelyn Bowen CNM on 05/30/18 1507 < > Co-Signed by: on Normal [facility] Protein mass conc [facility] Medical Records Patient: KAYLEEN PETE [address] : 1995 [place], [place] [address] Location: [facility] [phone] Unit #: [id number] Progress Note Obstetrics Jocelyn Bowen CNM Service Dt/Tm: 05/30/18 0926 ADDENDUM: IUPC placed after AROM clear fluid. Addendum Entered by: Jocelyn Bowen CNM on 05/30/18 at 0933 Addendum Signed by: Jocelyn Bowen CNM on 05/30/18 0933 Addendum Co-signer: on Subjective KAYLEEN PETE is a 22 yr old F who was admitted on 05/29/18 for . S: Pt. is very comfortable now after second epidural placement. O: Pt. is a 22yo MAKENNA 06/14/2018 here for induction of labor with pitocin. Cx 4/50/-2 cephalic. AROM clear fluid. Pt. has first dose of PCN in for GBS prophylaxis. FHT CAT 1. Ctx. irregular mild on palpation. A: Induction of labor for gestational hypertension no severe features. P: Start pitocin to augment labor contractions to MVU 150-200. Observe for well being. Call if any concerns. Objective Hemodynamics: Vital Signs - Last Set Pulse Rate 99 05/30/18 01:08 Respiratory Rate 18 05/30/18 01:08 Blood Pressure 121/70 05/30/18 01:08 Oxygen Saturation% 99 05/30/18 01:08 Daily Weight: Admitting (IV Pump) Weight 121.11 kg Actual Weight (Kg) 121.109 kg Results: Laboratory Results - last 24 hr WBC RBC Hgb Hct MCV MCH MCHC RDW Plt Count Neut % (Auto) WBC 12.9 H RBC 4.50 Hgb 12.1 Hct 36.6 MCV 81.4 MCH 27.0 L MCHC 33.2 RDW 13.7 Plt Count 344 Neut % (Auto) 77.0 H Medications: Current Medications Acetaminophen (Tylenol Es) 1,000 mg PO Q4HPRN PRN PRN Reason: HEADACHE Stop: 09/05/18 18:11 Butorphanol Tartrate (Stadol) 1 mg IV PUSH PRN PRN PRN Reason: FOR PAIN IF NUBAIN INEFFECTIVE Stop: 09/05/18 18:11 Lactated Ringer's (Lr) 1,000 mls @ 0 mls/hr IV DIRECTED [facility] Stop: 09/05/18 18:11 Last Admin: 05/30/18 08:11 Dose: 999 mls/hr Oxytocin 10 units/ Lactated (Ringer's) 1,001 mls @ 100.1 mls/hr IV DIRECTED PRN; Protocol PRN Reason: SEE LABEL COMMENTS Stop: 09/05/18 18:11 Last Admin: 05/30/18 08:59 Dose: 1 units/hr, 100.1 mls/hr Oxytocin 20 units/ Lactated (Ringer's) 1,002 mls @ 0 mls/hr IV DIRECTED PRN PRN Reason: SEE LABEL COMMENTS Stop: 09/05/18 18:11 Oxytocin 10 units/ Lactated (Ringer's) 1,001 mls @ 0 mls/hr IV DIRECTED PRN PRN Reason: SEE LABEL COMMENTS Stop: 09/06/18 00:06 Lactated Ringer's (Lr) 1,000 mls @ 0 mls/hr IV BOLUS [facility] Stop: 05/30/18 23:59 Ropivacaine 12 ml/ Fentanyl Citrate 150 mcg/ Sodium Chloride 60 mls @ 0 mls/hr EPID DIRECTED ALIYAH Stop: 09/06/18 05:31 Last Admin: 05/30/18 08:20 Dose: 12 mls/hr Penicillin G Potassium 2.5 mu/ (Sodium Chloride) 100 mls @ 100 mls/hr IVPB Q4H ALIYAH Stop: 06/06/18 10:01 Methylergonovine Maleate (Methergine Inj) 0.2 mg IM PRN PRN PRN Reason: HEAVY BLEEDING Stop: 09/05/18 18:11 Nalbuphine HCl (Nubain) 10 mg IV PUSH Q2HPRN PRN PRN Reason: Pain Stop: 09/05/18 18:11 Last Admin: 05/30/18 01:08 Dose: 10 mg Ondansetron HCl (Zofran) 4 mg IV PUSH Q4HPRN PRN PRN Reason: Nausea and Vomiting Stop: 09/05/18 18:11 Promethazine HCl (Phenergan) 12.5 mg IV PUSH Q4HPRN PRN PRN Reason: Nausea and Vomiting Stop: 09/05/18 18:11 Last Admin: 05/30/18 01:08 Dose: 12.5 mg Zolpidem Tartrate (Ambien) 10 mg PO QHSPRN PRN PRN Reason: Sleep Stop: 09/05/18 18:11 Entered by: Jocelyn Bowen CNM on 05/30/18 0926 Report Signed by: Jocelyn Bowen CNM on 05/30/18 0931 < > Co-Signed by: on Normal [facility] Prothrombin Timeon 8 INR Coag RelTime (PPP) 1.01 {INR} Normal 0.9-1.[address] [facility] Comment on above: Order Comment: Is Saulo tient receiving Heparin? No Result Comment: Grover mxad dose INR: 2.0-3.0High dose INR: 2.5-3.5 Performed By: #### L 800.0100, L800.0300, L800.0400, L800.4806 ####Main Laboratory ([facility])[address] [place], [place] [phone] Nivar, MD Prothrombin time (PT) Coag time (PPP) 11.6 Sec Normal 9.6-13.3 [facility] Comment on above: Order Comment: Is Pa tient receiving Heparin? No Performed By: #### L 800.0100, L800.0300, L800.0400, L800.4806 ####Main Laboratory ([facility])[address], [place] [phone] Nivar, MD Status Note/Updateon 018 Status Note/Update [facility] Medical Records Patient: KAYLEEN PETE [address] : 1995 [place], [place] [address] Location: OB [phone] Unit #: [id number] Status Note/Update Jocelyn Bowen CNM Service Dt/Tm: 05/30/181849 Note: KAYLEEN PETE is a 22 yr old F who was admitted on 05/29/18 for . S: Pt. is very frustrated with lack of progress. Discussed 0ption of moving around more in the bed to try to get things moving but pt. said she is just tired and wants this to be over with. I explained Dr. Rao is going to make a decision at 8pm if there is no change of dilation or descent of baby. Possibility of including risks and benefits discussed with pt. O: Vitals stable, Afebrile. FHT alternating between CAT 1 and CAT 2. Variability always mod to marked. Baseline changes from 130-150's. Variable decels occasionally. Accels present periodically. Adequate labor pattern with MVU's 200mm/Hg for several hours. Minimal cervical change with molding of head. A: Prodromal labor pattern, FHT's reassuring at present P: Continue to observe for more active labor and well being. Reevaluate pt cervix at 8pm and notify Dr. Rao. Will proceed with if no cervical change and adequate labor pattern. Pitocin remains at 11mu/min. Entered by: Jocelyn Bowen CNM on 05/30/181849 Report Signed by: Jocelyn Bowen CNM on 05/30/18 1902 < > Co-Signed by: on Normal [facility] Type and Screen(No Crossmatc h)on 05-30-2018 AB Screen (IAT) Negative Normal [facility] Comment on above: Performed By: #### L 800.0100, L800.0300, L800.0400, L800.4806 ####Main Laboratory ([facility])[address] [place], [place] [phone] Nivar, MD ABO and Rh group Nom (Bld) O Positive Normal [facility] Comment on above: Performed By: #### L 800.0100, L800.0300, L800.0400, L800.4806 ####Main Laboratory ([facility])[address] [place] [phone] Nivar, MD APTTon 05-29-2018 aPTT Coag time (Bld) 26.0 Sec Normal 23.0-38.0 [facility] Comment on above: Order Comment: Is Pa tient receiving Heparin? No Result Comment: APTT of 50.5 to 78.0 secondsrepresents therapeutic rangefor heparin (unfractionated) forOhiohealth.This corresponds to a heparinconcentration of 0.3 to 0.7 IU/ml. Performed By: #### L 800.0100, L800.0300, L800.0400, L800.4806 ####Main Laboratory ([facility])[address] [place] [phone] Nivar, MD Blood Urea Nitrogenon 2017 Urea nitrogen mass conc 5 mg/dL Low 7-20 [facility] Comment on above: Performed By: #### L 800.0100, L800.0300, L800.0400, L800.4806 ####Main Laboratory ([facility])[address], [place] [phone] Nivar, MD CBC with Differentialon 05-04 Abs Baso Count 200 /cmm Normal 0-200 [facility] Comment on above: Performed By: #### L 800.0100, L800.0300, L800.0400, L800.4806 ####Main Laboratory ([facility])[address], [place] [phone] Nivar, MD Abs Eos Count 100 /cmm Normal 0-500 [facility] Comment on above: Performed By: #### L 800.0100, L800.0300, L800.0400, L800.4806 ####Main Laboratory ([facility])[address], [place] [phone] Nivar, MD Abs Branch Count 900 /cmm High 0-800 [facility] Comment on above: Performed By: #### L 800.0100, L800.0300, L800.0400, L800.4806 ####Main Laboratory ([facility])[address], [place] [phone] Nivar, MD Abs Neut Count 9900 /cmm High 1273-2024 [facility] Comment on above: Performed By: #### L 800.0100, L800.0300, L800.0400, L800.4806 ####Main Laboratory ([facility])[address], [place] [phone] Nivar, MD Basophils Auto #/vol (Bld) 1.2 % Normal 0-2 [facility] Comment on above: Performed By: #### L 800.0100, L800.0300, L800.0400, L800.4806 ####Main Laboratory ([facility])[address], [place] [phone] Nivar, MD EOS-Auto Diff 0.7 % Normal 0-6 [facility] Comment on above: Performed By: #### L 800.0100, L800.0300, L800.0400, L800.4806 ####Main Laboratory ([facility])[address] [place] [phone] Nivar, MD Erythrocyte distribution width Auto Ratio (RBC) 13.7 % Normal 12.0-16.0 [facility] Comment on above: Performed By: #### L 800.0100, L800.0300, L800.0400, L800.4806 ####Main Laboratory ([facility])[address] [place], [place] [phone] Nivar, MD Hematocrit Auto Volume Fraction (Bld) 36.6 % Normal 35.0-44.0 [facility] Comment on above: Performed By: #### L 800.0100, L800.0300, L800.0400, L800.4806 ####Main Laboratory ([facility])[address] [place], [place] [phone] Nivar, MD Hemoglobin mass conc (Bld) 12.1 g/dL Normal 12.0-15.0 [facility] Comment on above: Performed By: #### L 800.0100, L800.0300, L800.0400, L800.4806 ####Main Laboratory ([facility])[address] [place], [place] [phone] Nivar, MD Lymphocytes Auto #/vol (Bld) 1900 /cmm Normal 6123-4751 [facility] Comment on above: Performed By: #### L 800.0100, L800.0300, L800.0400, L800.4806 ####Main Laboratory ([facility])[address] [place] [phone] Nivar, MD Lymphocytes/100 WBC Auto (Bld) 14.4 % Low 15-45 [facility] Comment on above: Performed By: #### L 800.0100, L800.0300, L800.0400, L800.4806 ####Main Laboratory ([facility])[address], [place] [phone] Nivar, MD MCH Auto Entitic mass (RBC) 27.0 pg Low 27.5-33.0 [facility] Comment on above: Performed By: #### L 800.0100, L800.0300, L800.0400, L800.4806 ####Main Laboratory ([facility])[address], [place] [phone] Nivar, MD MCHC Auto mass conc (RBC) 33.2 g/dL Normal 33.0-36.0 [facility] Comment on above: Performed By: #### L 800.0100, L800.0300, L800.0400, L800.4806 ####Main Laboratory ([facility])[address], [place] [phone] Nivar, MD MCV Auto Entitic volume (RBC) 81.4 CU EHSAN Normal 80-97 [facility] Comment on above: Performed By: #### L 800.0100, L800.0300, L800.0400, L800.4806 ####Main Laboratory ([facility])[address], [place] [phone] Nivar, MD Branch- Auto Diff 6.7 % Normal 2-10 [facility] Comment on above: Performed By: #### L 800.0100, L800.0300, L800.0400, L800.4806 ####Main Laboratory ([facility])[address], [place] [phone] Nivar, MD Neut-Auto Diff 77.0 % High 40-70 [facility] Comment on above: Performed By: #### L 800.0100, L800.0300, L800.0400, L800.4806 ####Main Laboratory ([facility])[address], [place] [phone] Nivar, MD NRBC-Auto 0.1 /100 WBC Normal <1 [facility] Comment on above: Performed By: #### L 800.0100, L800.0300, L800.0400, L800.4806 ####Main Laboratory ([facility])[address], [place] [phone] Nivar, MD Platelets Auto #/vol (Bld) 344 th/cmm Normal 150-400 [facility] Comment on above: Performed By: #### L 800.0100, L800.0300, L800.0400, L800.4806 ####Main Laboratory ([facility])[address], [place] [phone] Nivar, MD RBC Auto #/vol (Bld) 4.50 mil/cmm Normal 4.00-5.[address] [facility] Comment on above: Performed By: #### L 800.0100, L800.0300, L800.0400, L800.4806 ####Main Laboratory ([facility])[address], [place] [phone] Nivar, MD WBC Auto #/vol (Bld) 12.9 th/cmm High 4.4-10.5 [facility] Comment on above: Performed By: #### L 800.0100, L800.0300, L800.0400, L800.4806 ####Main Laboratory ([facility])[address], [place] [phone] Nivar, MD Creatinineon 05-29-2018 Creatinine mass conc 0.45 mg/dL Low 0.60-1.30 [facility] Comment on above: Performed By: #### L 800.0100, L800.0300, L800.0400, L800.4806 ####Main Laboratory ([facility])[address], [place] [phone] Nivar, MD GFR/1.73 sq M predicted among non-blacks MDRD vol rate/area (S/P/Bld) mL/min/{1.73_m2} Normal [facility] Comment on above: Result Comment: [employer] Fleece Grader lorena Kidney Disease stages by NKDFStage eGFR I >90 II 60-89 III 30-59 IV 15-29 V <15 or dialysisAGE(years) AVERAGE GFR 20-29 116 ml/min/1.73 square metersNote:This result is normalized to 1.73 square meter body surface area. Height and weight are not factored. Performed By: #### L 800.0100, L800.0300, L800.0400, L800.4806 ####Main Laboratory ([facility])[address], [place] [phone] Nivar, MD Drug Screen Urineon 05-29-20 18 Amphetamines Negative Normal Negative [facility] Comment on above: Performed By: #### L 800.0100, L800.0300, L800.0400, L800.4806 ####Main Laboratory ([facility])[address], [place] [phone] Nivar, MD Barbiturates Negative Normal Negative [facility] Comment on above: Performed By: #### L 800.0100, L800.0300, L800.0400, L800.4806 ####Main Laboratory ([facility])[address], [place] [phone] Nivar, MD Benzodiazepines Negative Normal Negative [facility] Comment on above: Performed By: #### L 800.0100, L800.0300, L800.0400, L800.4806 ####Main Laboratory ([facility])[address], [place] [phone] Nivar, MD Cannabinoids Negative Normal Negative [facility] Comment on above: Performed By: #### L 800.0100, L800.0300, L800.0400, L800.4806 ####Main Laboratory ([facility])[address], [place] [phone] Nivar, MD Cocaine Negative Normal Negative [facility] Comment on above: Performed By: #### L 800.0100, L800.0300, L800.0400, L800.4806 ####Main Laboratory ([facility])[address], [place] [phone] Nivar, MD Opiates Negative Normal Negative [facility] Comment on above: Performed By: #### L 800.0100, L800.0300, L800.0400, L800.4806 ####Main Laboratory ([facility])[address], [place] [phone] Nivar, MD Phencyclidine Negative Normal Negative [facility] Comment on above: Performed By: #### L 800.0100, L800.0300, L800.0400, L800.4806 ####Main Laboratory ([facility])[address], [place] [phone] Nivar, MD Oxycodone Negative Normal Negative [facility] Comment on above: Performed By: #### L 800.0100, L800.0300, L800.0400, L800.4806 ####Main Laboratory ([facility])[address], [place] [phone] Nivar, MD Comment Normal [facility] Comment on above: Result Comment: This drug of abuse screen is not intended for employmentrelated testing and is intended for use in clinicalmanagement of patients. Cut-off Concentrations for Positive ResultsPhencyclidine 25 ng/mLBenzodiazepines 200 ng/mLCocaine 300 ng/mLAmphetamines 1000 ng/mLCannabinoids 100 ng/mLOpiates 300 ng/mLBarbiturates 200 ng/mLOxycodone 100 ng/mL Performed By: #### L 800.0100, L800.0300, L800.0400, L800.4806 ####Main Laboratory ([facility])[address] [place], [place] [phone] Nivar, MD Fibrinogenon 05-29-2018 Fibrinogen 700 mg/dL High 200-400 [facility] Comment on above: Order Comment: Is Saulo pate receiving Heparin? No Performed By: #### L 800.0100, L800.0300, L800.0400, L800.4806 ####Main Laboratory ([facility])[address], [place] [phone] Nivar, MD Hepatic Function Panel (Live r)on 05-29-2018 Albumin mass conc 3.3 g/dL Low 3.5-5.0 [facility] Comment on above: Performed By: #### L 800.0100, L800.0300, L800.0400, L800.4806 ####Main Laboratory ([facility])[address] [place] [phone] Nivar, MD Alk Phos 119 IU/L High 39-118 [facility] Comment on above: Performed By: #### L 800.0100, L800.0300, L800.0400, L800.4806 ####Main Laboratory ([facility])[address], [place] [phone] Nivar, MD ALT/SGPT 15 IU/L Normal 10-40 [facility] Comment on above: Performed By: #### L 800.0100, L800.0300, L800.0400, L800.4806 ####Main Laboratory ([facility])[address] [place], [place] [phone] Nivar, MD AST/SGOT 18 IU/L Normal 15-41 [facility] Comment on above: Performed By: #### L 800.0100, L800.0300, L800.0400, L800.4806 ####Main Laboratory ([facility])[address] [place] [phone] Nivar, MD Bili,Direct < 0.1 Low 0.1-0.2 [facility] Comment on above: Performed By: #### L 800.0100, L800.0300, L800.0400, L800.4806 ####Main Laboratory ([facility])[address] [place], [place] [phone] Nivar, MD Bili,Total 0.2 mg/dL Invalid Interpretation Code 0.2-1.0 [facility] Comment on above: Result Comment: Delt a: < 0.1 on 05/01/18 Performed By: #### L 800.0100, L800.0300, L800.0400, L800.4806 ####Main Laboratory ([facility])[address] [place], [place] [phone] Nivar, MD Protein mass conc 6.0 g/dL Low 6.2-8.0 [facility] Comment on above: Performed By: #### L 800.0100, L800.0300, L800.0400, L800.4806 ####Main Laboratory ([facility])[address] [place] [phone] Nivar, MD LDHon 05-29-2018 LDH 96 iu/l Low 98-192 [facility] Comment on above: Performed By: #### L 800.0100, L800.0300, L800.0400, L800.4806 ####Main Laboratory ([facility])[address] [place] [phone] Nivar, MD Prothrombin Timeon 8 INR Coag RelTime (PPP) 0.97 {INR} Normal 0.9-1.[address] [facility] Comment on above: Order Comment: Is Pa tient receiving Heparin? No Result Comment: Grover dard dose INR: 2.0-3.0High dose INR: 2.5-3.5 Performed By: #### L 800.0100, L800.0300, L800.0400, L800.4806 ####Main Laboratory ([facility])[address] [place], [place] [phone] Nivar, MD Prothrombin time (PT) Coag time (PPP) 11.2 Sec Normal 9.6-13.3 [facility] Comment on above: Order Comment: Is Pa tient receiving Heparin? No Performed By: #### L 800.0100, L800.0300, L800.0400, L800.4806 ####Main Laboratory ([facility])[address], [place] [phone] Nivar, MD Uric Acidon 05-29-2018 Urate mass conc 4.9 mg/dL Normal 2.6-8.0 [facility] Comment on above: Performed By: #### L 800.0100, L800.0300, L800.0400, L800.4806 ####Main Laboratory ([facility])[address], [place] [phone] Nivar, MD Urine Protein/Creatinine Rat ioon 05-29-2018 Creatinine mass conc (U) 189.6 mg/dL Normal [facility] Comment on above: Performed By: #### L 800.0100, L800.0300, L800.0400, L800.4806 ####Main Laboratory ([facility])[address], [place] [phone] Nivar, MD Total Protein, Random Urine 24.0 mg/dL Normal [facility] Comment on above: Performed By: #### L 800.0100, L800.0300, L800.0400, L800.4806 ####Main Laboratory ([facility])[address], [place] [phone] Nivar, MD Urine Protein/Creatinine Ratio 0.1 g/1.73m2 Normal <0.15 [facility] Comment on above: Performed By: #### L 800.0100, L800.0300, L800.0400, L800.4806 ####Main Laboratory ([facility])[address], [place] [phone] Nivar, MD Nonstress Test Reporton 05-04 Nonstress Test Report [facility] Medical Records Patient: KAYLEEN PETE [address] : 1995 [place], [place] [address] Location: OBOP [phone] Unit #: [id number] Nonstress Test Report Kitty Vazquez MD SUBJECTIVE: This 22y.o. 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 No complaints this morning. Last Menstrual Period Gestational Age in Weeks and Days OBJECTIVE: Indication for NST: , GHTN Heart Rate: Baseline Heart Rate: 130s Accelerations: Present Decelerations: None Variability: Moderate Contraction Frequency: none The NST was reactive level 1. ASSESSMENT AND PLAN: Discharged to home in stable condition and instructed to follow up at her next scheduled appointment. Kitty Vazquez MD cc: Kitty Vazquez MD; Wendy Suazo MD Dictated by: Kitty Vazquez MD on 05/25/18 1244 Entered by: Kitty Vazquez MD on 05/25/18 1244 Report Signed by: Kitty Vazquez MD on 05/25/18 1247 < > Co-Signed by: on Normal [facility] Urine culture, reflexon 05-03 Urine culture, reflex No growth(<10,000 CFU/ml)of urinary tract pathogens. Tobias present are not the usual etiologic agents of a urinary tract infection and probably represent vaginal,urethral, or skin tobias. Contact Microbiology at extension [phone] if further information is needed. ORGANISM 1: Mixed tobias- 3 species presentColony count >100,000 CFU/ml Normal [facility] Comment on above: Performed By: #### L 800.0100, L800.0300, L800.0400, L800.4806 ####Main Laboratory ([facility])[address], [place] [phone] Nivar, MD Bilirubin,Directon 8 Bili,Direct < 0.1 Low 0.1-0.2 [facility] Comment on above: Performed By: #### L 800.0100, L800.0300, L800.0400, L800.4806 ####Main Laboratory ([facility])[address], [place] [phone] Nivar, MD CBC with Differentialon 05-03 Abs Baso Count 100 /cmm Normal 0-200 [facility] Comment on above: Performed By: #### L 404.6700 ####Main Laboratory ([facility])[address] [phone] Nivar, MD Abs Eos Count 100 /cmm Normal 0-500 [facility] Comment on above: Performed By: #### L 404.6700 ####Main Laboratory ([facility])[address] [phone] Nivar, MD Abs Branch Count 900 /cmm High 0-800 [facility] Comment on above: Performed By: #### L 404.6700 ####Main Laboratory ([facility])[address] [phone] Nivar, MD Abs Neut Count 10227 /cmm High 4571-4733 [facility] Comment on above: Performed By: #### L 404.6700 ####Main [facility] ([facility])[address] [phone] Nivar, MD Basophils Auto #/vol (Bld) 0.5 % Normal 0-2 [facility] Comment on above: Performed By: #### L 404.6700 ####Main [facility] ([facility])[address], [place] [phone] Nivar, MD EOS-Auto Diff 0.8 % Normal 0-6 [facility] Comment on above: Performed By: #### L 404.0 ####Main [facility] ([facility])[address], [place] [phone] Nivar, MD Erythrocyte distribution width Auto Ratio (RBC) 13.3 % Normal 12.0-16.0 [facility] Comment on above: Performed By: #### L 404.0 ####Main [facility] ([facility])[address], [place] [phone] Nivar, MD Hematocrit Auto Volume Fraction (Bld) 37.3 % Normal 35.0-44.0 [facility] Comment on above: Performed By: #### L 404.0 ####Main Laboratory ([facility])[address], [place] [phone] Nivar, MD Hemoglobin mass conc (Bld) 12.3 g/dL Normal 12.0-15.0 [facility] Comment on above: Performed By: #### L 404.0 ####Main [facility] ([facility])[address], [place] [phone] Nivar, MD Hypochromasia 1+ Normal [facility] Comment on above: Performed By: #### L 404.0 ####[facility] ([facility])[address], [place] [phone] Nivar, MD Lymphocytes Auto #/vol (Bld) 1600 /cmm Normal 1909-2628 [facility] Comment on above: Performed By: #### L 404.0 ####[facility] ([facility])[address] [phone] Nivar, MD Lymphocytes/100 WBC Auto (Bld) 12.0 % Low 15-45 [facility] Comment on above: Performed By: #### L 404.6700 ####Main [facility] ([facility])[address] [phone] Nivar, MD MCH Auto Entitic mass (RBC) 26.9 pg Low 27.5-33.0 [facility] Comment on above: Performed By: #### L 404.0 ####Main [facility] ([facility])[address], [place] [phone] Nivar, MD MCHC Auto mass conc (RBC) 32.9 g/dL Low 33.0-36.0 [facility] Comment on above: Performed By: #### L 404.0 ####[facility] ([facility])[address], [place] [phone] Nivar, MD MCV Auto Entitic volume (RBC) 81.6 CU EHSAN Normal 80-97 [facility] Comment on above: Performed By: #### L 404.0 ####[facility] ([facility])[address] [phone] Nivar, MD Branch- Auto Diff 6.7 % Normal 2-10 [facility] Comment on above: Performed By: #### L 404.0 ####Main [facility] ([facility])[address] [phone] Nivar, MD Neut-Auto Diff 80.0 % High 40-70 [facility] Comment on above: Performed By: #### L 404.0 ####[facility] ([facility])[address], [place] [phone] Nivar, MD NRBC-Auto 0.1 /100 WBC Normal <1 [facility] Comment on above: Performed By: #### L 404.6700 ####[facility] ([facility])[address], [place] [phone] Nivar, MD Platelets Auto #/vol (Bld) 359 th/cmm Normal 150-400 [facility] Comment on above: Performed By: #### L 404.6700 ####[facility] ([facility])[address], [place] [phone] Nivar, MD RBC Auto #/vol (Bld) 4.57 mil/cmm Normal 4.00-5.[address] [facility] Comment on above: Performed By: #### L 404.6700 ####[facility] ([facility])[address], [place] [phone] Nivar, MD WBC Auto #/vol (Bld) 13.5 th/cmm High 4.4-10.5 [facility] Comment on above: Performed By: #### L 404.6700 ####[facility] ([facility])[address], [place] [phone] Nivar, MD Comprehensive Metabolic Pane shayne 05-18-2018 Albumin mass conc 3.6 g/dL Normal 3.5-5.0 [facility] Comment on above: Performed By: #### L 800.0100, L800.0300, L800.0400, L800.4806 ####[facility] ([facility])[address], [place] [phone] Nivar, MD Albumin/Globulin mass ratio 1.1 {ratio} Low 1.5-2.5 [facility] Comment on above: Performed By: #### L 800.0100, L800.0300, L800.0400, L800.4806 ####[facility] ([facility])[address], [place] [phone] Nivar, MD Alk Phos 86 IU/L Normal 39-118 [facility] Comment on above: Performed By: #### L 800.0100, L800.0300, L800.0400, L800.4806 ####[facility] ([facility])[address], [place] [phone] Nivar, MD ALT/SGPT 11 IU/L Normal 10-40 [facility] Comment on above: Performed By: #### L 800.0100, L800.0300, L800.0400, L800.4806 ####[facility] ([facility])[address], [place] [phone] Nivar, MD Anion gap 3 molar conc 10 mmol/L Normal 4-[address] [facility] Comment on above: Performed By: #### L 800.0100, L800.0300, L800.0400, L800.4806 ####[facility] ([facility])[address], [place] [phone] Nivar, MD AST/SGOT 17 IU/L Normal 15-41 [facility] Comment on above: Performed By: #### L 800.0100, L800.0300, L800.0400, L800.4806 ####[facility] ([facility])[address], [place] [phone] Nivar, MD Bili, Total 0.7 mg/dL Normal 0.2-1.0 [facility] Comment on above: Performed By: #### L 800.0100, L800.0300, L800.0400, L800.4806 ####[facility] ([facility])[address], [place] [phone] Nivar, MD Calcium mass conc 8.7 mg/dL Low 8.8-10.5 [facility] Comment on above: Performed By: #### L 800.0100, L800.0300, L800.0400, L800.4806 ####[facility] ([facility])[address] [place], [place] [phone] Nivar, MD Chloride molar conc 102 mmol/L Normal 101-111 [facility] Comment on above: Performed By: #### L 800.0100, L800.0300, L800.0400, L800.4806 ####[facility] ([facility])[address] [place], [place] [phone] Nivar, MD CO2 molar conc 21 mmol/L Normal 21-32 [facility] Comment on above: Performed By: #### L 800.0100, L800.0300, L800.0400, L800.4806 ####[facility] ([facility])[address] [place], [place] [phone] Nivar, MD Creatinine mass conc 0.41 mg/dL Low 0.60-1.30 [facility] Comment on above: Performed By: #### L 800.0100, L800.0300, L800.0400, L800.4806 ####Main Laboratory ([facility])[address] [place], [place] [phone] Nivar, MD GFR/1.73 sq M predicted among non-blacks MDRD vol rate/area (S/P/Bld) mL/min/{1.73_m2} Normal [facility] Comment on above: Result Comment: [employer] lorena Kidney Disease stages by NKDFStage eGFR I >90 II 60-89 III 30-59 IV 15-29 V <15 or dialysisAGE(years) AVERAGE GFR 20-29 116 ml/min/1.73 square metersNote:This result is normalized to 1.73 square meter body surface area. Height and weight are not factored. Performed By: #### L 800.0100, L800.0300, L800.0400, L800.4806 ####[facility] ([facility])[address] [place] [phone] Nivar, MD Glucose mass conc 93 mg/dL Normal 70-110 [facility] Comment on above: Result Comment: *Thi s reference range applies to fasting specimens only. Performed By: #### L 800.0100, L800.0300, L800.0400, L800.4806 ####[facility] ([facility])[address] [place] [phone] Nivar, MD Potassium molar conc 3.6 mmol/L Normal 3.6-5.0 [facility] Comment on above: Performed By: #### L 800.0100, L800.0300, L800.0400, L800.4806 ####[facility] ([facility])[address] [place] [phone] Nivar, MD Protein mass conc 6.8 g/dL Normal 6.2-8.0 [facility] Comment on above: Performed By: #### L 800.0100, L800.0300, L800.0400, L800.4806 ####[facility] ([facility])[address] [place] [phone] Nivar, MD Sodium molar conc 133 mmol/L Low 135-145 [facility] Comment on above: Performed By: #### L 800.0100, L800.0300, L800.0400, L800.4806 ####[facility] ([facility])[address] [place] [phone] Nivar, MD Urea nitrogen mass conc mg/dL Low 7-20 [facility] Comment on above: Performed By: #### L 800.0100, L800.0300, L800.0400, L800.4806 ####[facility] ([facility])[address] [place], [place] [phone] Nivar, MD Drug Screen Urineon 05-18-20 18 Amphetamines Negative Normal Negative [facility] Comment on above: Performed By: #### L 800.0100, L800.0300, L800.0400, L800.4806 ####[facility] ([facility])[address], [place] [phone] Nivar, MD Barbiturates Negative Normal Negative [facility] Comment on above: Performed By: #### L 800.0100, L800.0300, L800.0400, L800.4806 ####[facility] ([facility])[address] [place], [place] [phone] Nivar, MD Benzodiazepines Negative Normal Negative [facility] Comment on above: Performed By: #### L 800.0100, L800.0300, L800.0400, L800.4806 ####Main [facility] ([facility])[address], [place] [phone] Nivar, MD Cannabinoids Negative Normal Negative [facility] Comment on above: Performed By: #### L 800.0100, L800.0300, L800.0400, L800.4806 ####[facility] ([facility])[address] [place], [place] [phone] Nivar, MD Cocaine Negative Normal Negative [facility] Comment on above: Performed By: #### L 800.0100, L800.0300, L800.0400, L800.4806 ####[facility] ([facility])[address] [place], [place] [phone] Nivar, MD Opiates Negative Normal Negative [facility] Comment on above: Performed By: #### L 800.0100, L800.0300, L800.0400, L800.4806 ####Main [facility] ([facility])[address], [place] [phone] Nivar, MD Phencyclidine Negative Normal Negative [facility] Comment on above: Performed By: #### L 800.0100, L800.0300, L800.0400, L800.4806 ####Main [facility] ([facility])[address] [phone] Nivar, MD Oxycodone Negative Normal Negative [facility] Comment on above: Performed By: #### L 800.0100, L800.0300, L800.0400, L800.4806 ####[facility] ([facility])[address] [phone] Nivar, MD Comment Normal [facility] Comment on above: Result Comment: This drug of abuse screen is not intended for employmentrelated testing and is intended for use in clinicalmanagement of patients. Cut-off Concentrations for Positive ResultsPhencyclidine 25 ng/mLBenzodiazepines 200 ng/mLCocaine 300 ng/mLAmphetamines 1000 ng/mLCannabinoids 100 ng/mLOpiates 300 ng/mLBarbiturates 200 ng/mLOxycodone 100 ng/mL Performed By: #### L 800.0100, L800.0300, L800.0400, L800.4806 ####[facility] ([facility])[address] [phone] Nivar, MD Urinalysis with Reflex Cultu reon 05-18-2018 Appearance Cloudy High [facility] Comment on above: Order Comment: Urine Source Urine, Clean Catch Performed By: #### L 404.6700 ####[facility] ([facility])[address] [place] [phone] Nivar, MD Bacteria 1+ High [facility] Comment on above: Order Comment: Urine Source Urine, Clean Catch Performed By: #### L 404.0 ####[facility] ([facility])[address], [place] [phone] Nivar, MD Bilirubin Negative Normal Negative [facility] Comment on above: Order Comment: Urine Source Urine, Clean Catch Performed By: #### L 404.0 ####[facility] ([facility])[address], [place] [phone] Nivar, MD Color Yellow Normal [facility] Comment on above: Order Comment: Urine Source Urine, Clean Catch Performed By: #### L 404.0 ####[facility] ([facility])[address], [place] [phone] Nivar, MD Epi,Squamous >50 High [facility] Comment on above: Order Comment: Urine Source Urine, Clean Catch Performed By: #### L 404.0 ####Main [facility] ([facility])[address], [place] [phone] Nivar, MD Epi,Transitional 0-5 Normal [facility] Comment on above: Order Comment: Urine Source Urine, Clean Catch Performed By: #### L 404.0 ####[facility] ([facility])[address] [phone] Nivar, MD Glucose Negative Normal Negative [facility] Comment on above: Order Comment: Urine Source Urine, Clean Catch Performed By: #### L 404.0 ####[facility] ([facility])[address], [place] [phone] Nivar, MD Hyaline Casts 0-2 Normal [facility] Comment on above: Order Comment: Urine Source Urine, Clean Catch Performed By: #### L 404.0 ####[facility] ([facility])[address], [place] [phone] Nivar, MD INR Coag RelTime (Bld) 3-5 High Li [facility] Comment on above: Order Comment: Urine Source Urine, Clean Catch Performed By: #### L 404.6700 ####[facility] ([facility])[address], [place] [phone] Nivar, MD Ketones Negative Normal Negative [facility] Comment on above: Order Comment: Urine Source Urine, Clean Catch Performed By: #### L 404.6700 ####[facility] ([facility])[address] [phone] Nivar, MD Leukocytes Large High Negative [facility] Comment on above: Order Comment: Urine Source Urine, Clean Catch Performed By: #### L 404.0 ####[facility] ([facility])[address] [phone] Nivar, MD Mucous Present Normal [facility] Comment on above: Order Comment: Urine Source Urine, Clean Catch Performed By: #### L 404.0 ####[facility] ([facility])[address], [place] [phone] Nivar, MD Nitrites Negative Normal Negative [facility] Comment on above: Order Comment: Urine Source Urine, Clean Catch Performed By: #### L 404.0 ####[facility] ([facility])[address] [phone] Nivar, MD pH 7.0 Normal 5.0-8.0 [facility] Comment on above: Order Comment: Urine Source Urine, Clean Catch Performed By: #### L 404.6700 ####[facility] ([facility])[address], [place] [phone] Nivar, MD Protein mass conc Negative Normal Negative [facility] Comment on above: Order Comment: Urine Source Urine, Clean Catch Performed By: #### L 404.6700 ####[facility] ([facility])[address] [place] [phone] Nivar, MD Specific [place] 1.012 Normal 1.000-1.035 [facility] Comment on above: Order Comment: Urine Source Urine, Clean Catch Performed By: #### L 404.6700 ####[facility] ([facility])[address], [place] [phone] Nivar, MD UA Reflex Culture Yes Normal [facility] Comment on above: Order Comment: Urine Source Urine, Clean Catch Result Comment: Cult ure done per lab protocol Performed By: #### L 404.6700 ####[facility] ([facility])[address] [place] [phone] Nivar, MD Urobilinogen <2.0 E.U./dL Normal 0.2-1.0 [facility] Comment on above: Order Comment: Urine Source Urine, Clean Catch Performed By: #### L 404.6700 ####[facility] ([facility])[address] [place] [phone] Nivar, MD WBC 6-10 High [facility] Comment on above: Order Comment: Urine Source Urine, Clean Catch Performed By: #### L 404.6700 ####[facility] ([facility])[address], [place] [phone] Nivar, MD Urine Protein/Creatinine Rat ioon 05-18-2018 Creatinine mass conc (U) 108.7 mg/dL Normal [facility] Comment on above: Performed By: #### L 800.0100, L800.0300, L800.0400, L800.4806 ####[facility] ([facility])[address] [place] [phone] Nivar, MD Total Protein, Random Urine 18.0 mg/dL Normal [facility] Comment on above: Performed By: #### L 800.0100, L800.0300, L800.0400, L800.4806 ####[facility] ([facility])[address], [place] [phone] Nivar, MD Urine Protein/Creatinine Ratio 0.2 g/1.73m2 High <0.15 [facility] Comment on above: Performed By: #### L 800.0100, L800.0300, L800.0400, L800.4806 ####[facility] ([facility])[address], [place] [phone] Nivar, MD Group B Strep Probeon 2017 Protein mass conc Positive High Negative [facility] Comment on above: Order Comment: Does Patient have Penicillin Allergy? NSpecimen Source: Vaginal/rectal Result Comment: Penc illin continues to be the drug of choice for infectionscaused by beta hemolytic streptocci due to lack ofresistance demonstrated among these organisms. If thepatient is allergic to pencillin, alternative therapychoices include antibiotics from the beta lactam,cephalosporin, and macrolide drug classes. If eitherclindamycin or erythromycin are being considered for use in women or for intrapartum chemoprophylaxis due topenicillin allergy, contact Microbiology at ext. [phone] torequest susceptibility testing.Methodology: Nucleic Acid Amplification (Polymerase Chain Reaction,PCR) Performed By: #### L 404.6700 ####[facility] ([facility])[address], [place] [phone] Nivar, MD Nonstress Test Reporton Nonstress Test Report [facility] Medical Records Patient: KAYLEEN PETE [address] : 1995 [place], [place] [address] Location: OBOP [phone] Unit #: [id number] Nonstress Test Report Lenora Peña CNM SUBJECTIVE: This 22y.o. patient presented on 05/01/18 at 33.5 weeks gestation complaining of elevated blood pressure. OBJECTIVE: VSS, aferbrile. 24 hour urine started Heart Rate: Baseline Heart Rate: 130 Accelerations: Present Decelerations: None Variability: Moderate Contraction Frequency: none The NST was reactive level 1. ASSESSMENT AND PLAN: Discharged to home in stable condition and instructed to follow up at her next scheduled appointment. Lenora Peña CNM cc: Lenora Peña CNM; Wendy Suazo MD Dictated by: Lenora Peña CNM on 05/04/181557 Entered by: Lenora Peña CNM on 05/04/181557 Report Signed by: Lenora Peña CNM on 05/04/18 1602 < > Co-Signed by: on Normal [facility] Urine culture, reflexon Urine culture, reflex No growth(<10,000 CFU/ml)of urinary tract pathogens. Tobias present are not the usual etiologic agents of a urinary tract infection and probably represent vaginal,urethral, or skin tobias. Contact Microbiology at extension [phone] if further information is needed. ORGANISM 1: Mixed tobias- 3 species presentColony count >100,000 CFU/ml Normal [facility] Comment on above: Performed By: #### L 404.6700 ####[facility] ([facility])[address], [place] [phone] Nivar, MD APTTon 05-02-2018 aPTT Coag time (Bld) 26.7 Sec Normal 23.0-38.0 [facility] Comment on above: Order Comment: Is Pa tient receiving Heparin? No Result Comment: APTT of 50.5 to 78.0 secondsrepresents therapeutic rangefor heparin (unfractionated) forOhiohealth.This corresponds to a heparinconcentration of 0.3 to 0.7 IU/ml. Performed By: #### L 402.4000 ####[facility] ([facility])[address], [place] [phone] Nivar, MD Bilirubin,Directon 201 8 Bili,Direct 0.1 mg/dL Normal 0.1-0.2 [facility] Comment on above: Performed By: #### L 404.6700 ####[facility] ([facility])[address], [place] [phone] Nivar, MD CBC with Differentialon 04-04 Abs Baso Count 200 /cmm Normal 0-200 [facility] Comment on above: Performed By: #### L 402.4000 ####[facility] ([facility])[address], [place] [phone] Nivar, MD Abs Eos Count 100 /cmm Normal 0-500 [facility] Comment on above: Performed By: #### L 402.4000 ####[facility] ([facility])[address], [place] [phone] Nivar, MD Abs Branch Count 1000 /cmm High 0-800 [facility] Comment on above: Performed By: #### L 402.4000 ####[facility] ([facility])[address], [place] [phone] Nivar, MD Abs Neut Count 57997 /cmm High 3814-3236 [facility] Comment on above: Performed By: #### L 402.4000 ####[facility] ([facility])[address], [place] [phone] Nivar, MD Basophils Auto #/vol (Bld) 1.3 % Normal 0-2 [facility] Comment on above: Performed By: #### L 402.4000 ####[facility] ([facility])[address] [place], [place] [phone] Nivar, MD EOS-Auto Diff 0.9 % Normal 0-6 [facility] Comment on above: Performed By: #### L 402.4000 ####[facility] ([facility])[address], [place] [phone] Nivar, MD Erythrocyte distribution width Auto Ratio (RBC) 13.2 % Normal 12.0-16.0 [facility] Comment on above: Performed By: #### L 402.4000 ####[facility] ([facility])[address], [place] [phone] Nivar, MD Hematocrit Auto Volume Fraction (Bld) 38.6 % Normal 35.0-44.0 [facility] Comment on above: Performed By: #### L 402.4000 ####[facility] ([facility])[address], [place] [phone] Nivar, MD Hemoglobin mass conc (Bld) 12.6 g/dL Normal 12.0-15.0 [facility] Comment on above: Performed By: #### L 402.4000 ####[facility] ([facility])[address], [place] [phone] Nivar, MD Hypochromasia 1+ Normal [facility] Comment on above: Performed By: #### L 402.4000 ####[facility] ([facility])[address] [phone] Nivar, MD Lymphocytes Auto #/vol (Bld) 2600 /cmm Normal 0342-1302 [facility] Comment on above: Performed By: #### L 402.4000 ####[facility] ([facility])[address] [phone] Nivar, MD Lymphocytes/100 WBC Auto (Bld) 16.2 % Normal 15-45 [facility] Comment on above: Performed By: #### L 402.4000 ####[facility] ([facility])[address], [place] [phone] Nivar, MD MCH Auto Entitic mass (RBC) 26.8 pg Low 27.5-33.0 [facility] Comment on above: Performed By: #### L 402.4000 ####[facility] ([facility])[address], [place] [phone] Nivar, MD MCHC Auto mass conc (RBC) 32.6 g/dL Low 33.0-36.0 [facility] Comment on above: Performed By: #### L 402.4000 ####[facility] ([facility])[address], [place] [phone] Nivar, MD MCV Auto Entitic volume (RBC) 82.4 CU EHSAN Normal 80-97 [facility] Comment on above: Performed By: #### L 402.4000 ####[facility] ([facility])[address], [place] [phone] Nivar, MD Branch- Auto Diff 6.4 % Normal 2-10 [facility] Comment on above: Performed By: #### L 402.4000 ####[facility] ([facility])[address], [place] [phone] Nivar, MD Neut-Auto Diff 75.2 % High 40-70 [facility] Comment on above: Performed By: #### L 402.4000 ####[facility] ([facility])[address], [place] [phone] Nivar, MD NRBC-Auto 0.1 /100 WBC Normal <1 [facility] Comment on above: Performed By: #### L 402.4000 ####[facility] ([facility])[address], [place] [phone] Nivar, MD Platelets Auto #/vol (Bld) 390 th/cmm Normal 150-400 [facility] Comment on above: Performed By: #### L 402.4000 ####[facility] ([facility])[address], [place] [phone] Nivar, MD RBC Auto #/vol (Bld) 4.68 mil/cmm Normal 4.00-5.[address] [facility] Comment on above: Performed By: #### L 402.4000 ####[facility] ([facility])[address], [place] [phone] Nivar, MD WBC Auto #/vol (Bld) 15.9 th/cmm High 4.4-10.5 [facility] Comment on above: Performed By: #### L 402.4000 ####[facility] ([facility])[address], [place] [phone] Nivar, MD Comprehensive Metabolic Pane shayne 05-02-2018 Albumin mass conc 4.0 g/dL Normal 3.5-5.0 [facility] Comment on above: Performed By: #### L 404.6700 ####[facility] ([facility])[address] [phone] Nivar, MD Albumin/Globulin mass ratio 1.5 {ratio} Normal 1.5-2.5 [facility] Comment on above: Performed By: #### L 404.6700 ####[facility] ([facility])[address] [phone] Nivar, MD Alk Phos 100 IU/L Normal 39-118 [facility] Comment on above: Performed By: #### L 404.6700 ####[facility] ([facility])[address] [phone] Nivar, MD ALT/SGPT 14 IU/L Normal 10-40 [facility] Comment on above: Performed By: #### L 404.6700 ####[facility] ([facility])[address], [place] [phone] Nivar, MD AST/SGOT 17 IU/L Normal 15-41 [facility] Comment on above: Performed By: #### L 404.6700 ####[facility] ([facility])[address], [place] [phone] Nivar, MD Bili,Total < 0.1 Low 0.2-1.0 [facility] Comment on above: Performed By: #### L 404.0 ####[facility] ([facility])[address], [place] [phone] Nivar, MD Urea nitrogen mass conc mg/dL Low 7-20 [facility] Comment on above: Performed By: #### L 404.6700 ####[facility] ([facility])[address] [phone] Nivar, MD Anion gap 3 molar conc 8 mmol/L Normal 4-[address] [facility] Comment on above: Performed By: #### L 404.0 ####[facility] ([facility])[address] [place] [phone] Nivar, MD Calcium mass conc 9.0 mg/dL Normal 8.8-10.5 [facility] Comment on above: Performed By: #### L 404.6700 ####[facility] ([facility])[address], [place] [phone] Nivar, MD Chloride molar conc 105 mmol/L Normal 101-111 [facility] Comment on above: Performed By: #### L 404.6700 ####[facility] ([facility])[address], [place] [phone] Nivar, MD CO2 molar conc 24 mmol/L Normal 21-32 [facility] Comment on above: Performed By: #### L 404.0 ####[facility] ([facility])[address] [place] [place] [phone] Nivar, MD Creatinine mass conc 0.52 mg/dL Low 0.60-1.30 [facility] Comment on above: Performed By: #### L 404.6700 ####[facility] ([facility])[address] [place] [phone] Nivar, MD GFR/1.73 sq M predicted among non-blacks MDRD vol rate/area (S/P/Bld) mL/min/{1.73_m2} Normal [facility] Comment on above: Result Comment: [employer]lee[employer] Grader lorena Kidney Disease stages by NKDFStage eGFR I >90 II 60-89 III 30-59 IV 15-29 V <15 or dialysisAGE(years) AVERAGE GFR 20-29 116 ml/min/1.73 square metersNote:This result is normalized to 1.73 square meter body surface area. Height and weight are not factored. Performed By: #### L 404.6700 ####[facility] ([facility])[address] [place] [phone] Nivar, MD Glucose mass conc 101 mg/dL Normal 70-110 [facility] Comment on above: Result Comment: *Thi s reference range applies to fasting specimens only. Performed By: #### L 404.6700 ####[facility] ([facility])[address] [place] [phone] Nivar, MD Potassium molar conc 3.5 mmol/L Low 3.6-5.0 [facility] Comment on above: Performed By: #### L 404.6700 ####[facility] ([facility])[address] [place] [phone] Nivar, MD Protein mass conc 6.7 g/dL Normal 6.2-8.0 [facility] Comment on above: Performed By: #### L 404.6700 ####[facility] ([facility])[address], [place] [phone] Nivar, MD Sodium molar conc 137 mmol/L Normal 135-145 [place] [facility] Comment on above: Performed By: #### L 404.6700 ####[facility] ([facility])[address], [place] [phone] Nivar, MD Drug Screen Urineon 05-02-20 18 Amphetamines Negative Normal Negative [facility] Comment on above: Performed By: #### L 402.4000 ####[facility] ([facility])[address], [place] [phone] Nivar, MD Barbiturates Negative Normal Negative [facility] Comment on above: Performed By: #### L 402.4000 ####[facility] ([facility])[address], [place] [phone] Nivar, MD Benzodiazepines Negative Normal Negative [facility] Comment on above: Performed By: #### L 402.4000 ####[facility] ([facility])[address], [place] [phone] Nivar, MD Cannabinoids Negative Normal Negative [facility] Comment on above: Performed By: #### L 402.4000 ####Main Laboratory ([facility])[address], [place] [phone] Nivar, MD Cocaine Negative Normal Negative [facility] Comment on above: Performed By: #### L 402.4000 ####[facility] ([facility])[address], [place] [phone] Nivar, MD Opiates Negative Normal Negative [facility] Comment on above: Performed By: #### L 402.4000 ####[facility] ([facility])[address] [phone] Nivar, MD Phencyclidine Negative Normal Negative [facility] Comment on above: Performed By: #### L 402.4000 ####Main [facility] ([facility])[address] [phone] Nivar, MD Oxycodone Negative Normal Negative [facility] Comment on above: Performed By: #### L 402.4000 ####Main [facility] ([facility])[address], [place] [phone] Nivar, MD Comment Normal [facility] Comment on above: Result Comment: This drug of abuse screen is not intended for employmentrelated testing and is intended for use in clinicalmanagement of patients. Cut-off Concentrations for Positive ResultsPhencyclidine 25 ng/mLBenzodiazepines 200 ng/mLCocaine 300 ng/mLAmphetamines 1000 ng/mLCannabinoids 100 ng/mLOpiates 300 ng/mLBarbiturates 200 ng/mLOxycodone 100 ng/mL Performed By: #### L 402.4000 ####[facility] ([facility])[address] [phone] Nivar, MD Fibrinogenon 05-02-2018 Fibrinogen 738 mg/dL High 200-400 [facility] Comment on above: Order Comment: Is Pa tient receiving Heparin? No Performed By: #### L 404.6700 ####[facility] ([facility])[address] [phone] Nivar, MD LDHon 05-02-2018 LDH 85 iu/l Low 98-192 [facility] Comment on above: Performed By: #### L 404.6700 ####Main [facility] ([facility])[address] [place] [phone] Nivar, MD Prothrombin Timeon 201 8 INR Coag RelTime (PPP) 0.97 {INR} Normal 0.9-1.[address] [facility] Comment on above: Order Comment: Is Pa tient receiving Heparin? No Result Comment: Grover dard dose INR: 2.0-3.0High dose INR: 2.5-3.5 Performed By: #### L 402.4000 ####Main [facility] ([facility])[address] [place] [phone] Nivar, MD Prothrombin time (PT) Coag time (PPP) 11.2 Sec Normal 9.6-13.3 [facility] Comment on above: Order Comment: Is Pa tient receiving Heparin? No Performed By: #### L 402.4000 ####[facility] ([facility])[address] [place] [phone] Nivar, MD Uric Acidon 05-02-2018 Urate mass conc 4.0 mg/dL Normal 2.6-8.0 [facility] Comment on above: Performed By: #### L 404.6700 ####Main [facility] ([facility])[address] [place] [phone] Nivar, MD Urinalysis with Reflex Cultu reon 05-02-[address] [facility] Comment on above: Order Comment: Urine Source Urine, Clean Catch Performed By: #### L 402.4000 ####Main [facility] ([facility])[address] [place] [phone] Nivar, MD Bacteria 1+ [facility] Comment on above: Order Comment: Urine Source Urine, Clean Catch Performed By: #### L 402.4000 ####[facility] ([facility])[address] [place] [phone] Nivar, MD Bilirubin Negative Normal Negative [facility] Comment on above: Order Comment: Urine Source Urine, Clean Catch Performed By: #### L 402.4000 ####Main [facility] ([facility])[address] [place] [phone] Nivar, MD Color Yellow Normal [facility] Comment on above: Order Comment: Urine Source Urine, Clean Catch Performed By: #### L 402.4000 ####Main [facility] ([facility])[address], [place] [phone] Nivar, MD Epi,Squamous 11-20 High [facility] Comment on above: Order Comment: Urine Source Urine, Clean Catch Performed By: #### L 402.4000 ####[facility] ([facility])[address] [place] [phone] Nivar, MD Glucose Negative Normal Negative [facility] Comment on above: Order Comment: Urine Source Urine, Clean Catch Performed By: #### L 402.4000 ####[facility] ([facility])[address] [phone] Nivar, MD INR Coag RelTime (Bld) 0-[address] [facility] Comment on above: Order Comment: Urine Source Urine, Clean Catch Performed By: #### L 402.4000 ####[facility] ([facility])[address], [place] [phone] Nivar, MD Ketones Trace High Negative [facility] Comment on above: Order Comment: Urine Source Urine, Clean Catch Performed By: #### L 402.4000 ####[facility] ([facility])[address], [place] [phone] Nivar, MD Leukocytes Moderate High Negative [facility] Comment on above: Order Comment: Urine Source Urine, Clean Catch Performed By: #### L 402.4000 ####[facility] ([facility])[address], [place] [phone] Nivar, MD Nitrites Negative Normal Negative [facility] Comment on above: Order Comment: Urine Source Urine, Clean Catch Performed By: #### L 402.4000 ####[facility] ([facility])[address] [phone] Nivar, MD pH 7.0 Normal 5.0-8.0 [facility] Comment on above: Order Comment: Urine Source Urine, Clean Catch Performed By: #### L 402.4000 ####[facility] ([facility])[address], [place] [phone] Nivar, MD Protein mass conc Negative Normal Negative [facility] Comment on above: Order Comment: Urine Source Urine, Clean Catch Performed By: #### L 402.4000 ####Main [facility] ([facility])[address] [phone] Nivar, MD Specific [place] 1.005 Normal 1.000-1.035 [facility] Comment on above: Order Comment: Urine Source Urine, Clean Catch Performed By: #### L 402.4000 ####[facility] ([facility])[address] [phone] Nivar, MD UA Reflex Culture Yes Normal [facility] Comment on above: Order Comment: Urine Source Urine, Clean Catch Result Comment: Cult ure done per lab protocol Performed By: #### L 402.4000 ####[facility] ([facility])[address] [phone] Nivar, MD Urobilinogen <2.0 E.U./dL Normal 0.2-1.0 [facility] Comment on above: Order Comment: Urine Source Urine, Clean Catch Performed By: #### L 402.4000 ####[facility] ([facility])[address] [phone] Nivar, MD WBC 0-5 Normal [facility] Comment on above: Order Comment: Urine Source Urine, Clean Catch Performed By: #### L 402.4000 ####[facility] ([facility])[address] [phone] Nivar, MD Urine Protein/Creatinine Rat ioon 05-02-2018 Total Protein, Random Urine < 6.0 Normal [facility] Comment on above: Performed By: #### L 402.4000 ####[facility] ([facility])[address] [phone] Nivar, MD Urine Protein/Creatinine Ratio 0.2 g/1.73m2 High <0.15 [facility] Comment on above: Performed By: #### L 402.4000 ####[facility] ([facility])[address] [phone] Nivar, MD Creatinine mass conc (U) 33.6 mg/dL Normal [facility] Comment on above: Performed By: #### L 402.4000 ####[facility] ([facility])[address] [phone] Nivar, MD Nonstress Test Reporton 04-03 Nonstress Test Report [facility] Medical Records Patient: KAYLEEN PETE [address] : 1995 [place], [place] [address] Location: [facility] [phone] Unit #: [id number] Nonstress Test Report Jocelyn Bowen CNM SUBJECTIVE: This 22y.o. patient presented on 04/16/18 from office at 31w4d weeks gestation sent in for [facility] labs. OBJECTIVE: Pt. has no severe features and BP 124/74 P95 R18 T98.4PO Heart Rate: Baseline Heart Rate: 145 Accelerations: Present Decelerations: None Variability: Moderate Contraction Frequency: none The NST was reactive level 1. ASSESSMENT AND PLAN: Discharged to home in stable condition and instructed to follow up at her next scheduled appointment. Jocelyn Bowen CNM cc: Joeclyn Bowen CNM; Wendy Suazo MD Dictated by: Jocelyn [place] CN[place] [id number] Entered by: Jocelyn Bowen CNM on 04/24/18424 Report Signed by: Jocelyn Bowen CNM on 04/24/18428 < > Co-Signed by: on Normal [facility] APTTon 04-16-2018 aPTT Coag time (Bld) 27.0 Sec Normal 23.0-38.0 [facility] Comment on above: Order Comment: Is Pa tient receiving Heparin? No Result Comment: APTT of 50.5 to 78.0 secondsrepresents therapeutic rangefor heparin (unfractionated) for[place]health.This corresponds to a heparinconcentration of 0.3 to 0.7 IU/ml. Performed By: #### L 402.4000 ####[facility] ([facility])[address] [phone] Nivar, MD Blood Urea Nitrogenon 2017 Urea nitrogen mass conc mg/dL Low 7- [facility] Comment on above: Performed By: #### B 100.0800 ####[facility] ([facility])[address] [phone] Nivar, MD CBC with Differentialon 04-02 Abs Baso Count 100 /cmm Normal 0-200 [facility] Comment on above: Performed By: #### B 100.0800 ####[facility] ([facility])[address] [phone] Nivar, MD Abs Eos Count 200 /cmm Normal 0-500 [facility] Comment on above: Performed By: #### B 100.0800 ####[facility] ([facility])[address] [phone] Nivar, MD Abs Branch Count 1000 /cmm High 0-800 [facility] Comment on above: Performed By: #### B 100.0800 ####Main [facility] ([facility])[address], [place] [phone] Nivar, MD Abs Neut Count 19683 /cmm High 5822-2769 [facility] Comment on above: Performed By: #### B 100.0800 ####[facility] ([facility])[address] [phone] Nivar, MD Basophils Auto #/vol (Bld) 0.9 % Normal 0-2 [facility] Comment on above: Performed By: #### B 100.0800 ####[facility] ([facility])[address] [phone] Nivar, MD EOS-Auto Diff 1.3 % Normal 0-6 [facility] Comment on above: Performed By: #### B 100.0800 ####[facility] ([facility])[address], [place] [phone] Nivar, MD Erythrocyte distribution width Auto Ratio (RBC) 13.5 % Normal 12.0-16.0 [facility] Comment on above: Performed By: #### B 100.0800 ####[facility] ([facility])[address] [phone] Nivar, MD Hematocrit Auto Volume Fraction (Bld) 37.5 % Normal 35.0-44.0 [facility] Comment on above: Performed By: #### B 100.0800 ####[facility] ([facility])[address] [phone] Nivar, MD Hemoglobin mass conc (Bld) 12.2 g/dL Normal 12.0-15.0 [facility] Comment on above: Performed By: #### B 100.0800 ####[facility] ([facility])[address] [phone] Nivar, MD Hypochromasia 1+ Normal [facility] Comment on above: Performed By: #### B 100.0800 ####[facility] ([facility])[address] [place] [phone] Nivar, MD Lymphocytes Auto #/vol (Bld) 2100 /cmm Normal 1850-1777 [facility] Comment on above: Performed By: #### B 100.0800 ####[facility] ([facility])[address] [place] [phone] Nivar, MD Lymphocytes/100 WBC Auto (Bld) 15.4 % Normal 15-45 [facility] Comment on above: Performed By: #### B 100.0800 ####[facility] ([facility])[address] [place] [phone] Nivar, MD MCH Auto Entitic mass (RBC) 26.6 pg Low 27.5-33.0 [facility] Comment on above: Performed By: #### B 100.0800 ####[facility] ([facility])[address] [place] [phone] Nivar, MD MCHC Auto mass conc (RBC) 32.6 g/dL Low 33.0-36.0 [facility] Comment on above: Performed By: #### B 100.0800 ####[facility] ([facility])[address] [place] [phone] Nivar, MD MCV Auto Entitic volume (RBC) 81.7 CU EHSAN Normal 80-97 [facility] Comment on above: Performed By: #### B 100.0800 ####[facility] ([facility])[address] [place] [phone] Nivar, MD Branch- Auto Diff 7.3 % Normal 2-10 [facility] Comment on above: Performed By: #### B 100.0800 ####[facility] ([facility])[address] [place], [place] [phone] Nivar, MD Neut-Auto Diff 75.1 % High 40-70 [facility] Comment on above: Performed By: #### B 100.0800 ####[facility] ([facility])[address] [phone] Nivar, MD NRBC-Auto 0.0 /100 WBC Normal <1 [facility] Comment on above: Performed By: #### B 100.0800 ####[facility] ([facility])[address]Davian[place] [phone] Nivar, MD Platelets Auto #/vol (Bld) 394 th/cmm Normal 150-400 [facility] Comment on above: Performed By: #### B 100.0800 ####[facility] ([facility])[address] [place] [phone] Nivar, MD RBC Auto #/vol (Bld) 4.59 mil/cmm Normal 4.00-5.[address] [facility] Comment on above: Performed By: #### B 100.0800 ####[facility] ([facility])[address] [phone] Nivar, MD WBC Auto #/vol (Bld) 13.6 th/cmm High 4.4-10.5 [facility] Comment on above: Performed By: #### B 100.0800 ####[facility] ([facility])[address] [place] [phone] Nivar, MD Creatinineon 04-16-2018 Creatinine mass conc 0.43 mg/dL Low 0.60-1.30 [facility] Comment on above: Performed By: #### B 100.0800 ####[facility] ([facility])[address] [place] [phone] Nivar, MD GFR/1.73 sq M predicted among non-blacks MDRD vol rate/area (S/P/Bld) mL/min/{1.73_m2} Normal [facility] Comment on above: Result Comment: Dhaval carrillo Kidney Disease stages by NKDFStage eGFR I >90 II 60-89 III 30-59 IV 15-29 V <15 or dialysisAGE(years) AVERAGE GFR 20-29 116 ml/min/1.73 square metersNote:This result is normalized to 1.73 square meter body surface area. Height and weight are not factored. Performed By: #### B 100.0800 ####[facility] ([facility])[address], [place] [phone] Nivar, MD Drug Screen Urineon 10-15-20 18 Amphetamines Negative Normal Negative [facility] Comment on above: Performed By: #### L 402.4000 ####[facility] ([facility])[address], [place] [phone] Nivar, MD Barbiturates Negative Normal Negative [facility] Comment on above: Performed By: #### L 402.4000 ####[facility] ([facility])[address], [place] [phone] Nivar, MD Benzodiazepines Negative Normal Negative [facility] Comment on above: Performed By: #### L 402.4000 ####[facility] ([facility])[address], [place] [phone] Nivar, MD Cannabinoids Negative Normal Negative [facility] Comment on above: Performed By: #### L 402.4000 ####[facility] ([facility])[address], [place] [phone] Nivar, MD Cocaine Negative Normal Negative [facility] Comment on above: Performed By: #### L 402.4000 ####[facility] ([facility])[address] [phone] Nivar, MD Opiates Negative Normal Negative [facility] Comment on above: Performed By: #### L 402.4000 ####[facility] ([facility])[address] [phone] Nivar, MD Phencyclidine Negative Normal Negative [facility] Comment on above: Performed By: #### L 402.4000 ####[facility] ([facility])[address] [place] [phone] Nivar, MD Oxycodone Negative Normal Negative [facility] Comment on above: Performed By: #### L 402.4000 ####[facility] ([facility])[address] [place] [phone] Nivar, MD Comment Normal [facility] Comment on above: Result Comment: This drug of abuse screen is not intended for employmentrelated testing and is intended for use in clinicalmanagement of patients. Cut-off Concentrations for Positive ResultsPhencyclidine 25 ng/mLBenzodiazepines 200 ng/mLCocaine 300 ng/mLAmphetamines 1000 ng/mLCannabinoids 100 ng/mLOpiates 300 ng/mLBarbiturates 200 ng/mLOxycodone 100 ng/mL Performed By: #### L 402.4000 ####[facility] ([facility])[address] [place] [phone] Nivar, MD Fibrinogenon 04-16-2018 Fibrinogen 714 mg/dL High 200-400 [facility] Comment on above: Order Comment: Is Saulo tient receiving Heparin? No Performed By: #### L 402.4000 ####[facility] ([facility])[address] [place] [phone] Nivar, MD Hepatic Function Panel (Live r)on 04-16-2018 Albumin mass conc 4.2 g/dL Normal 3.5-5.0 [facility] Comment on above: Performed By: #### B 100.0800 ####[facility] ([facility])[address], [place] [phone] Nivar, MD Alk Phos 84 IU/L Normal 39-118 [facility] Comment on above: Performed By: #### B 100.0800 ####[facility] ([facility])[address], [place] [phone] Nivar, MD ALT/SGPT 15 IU/L Normal 10-40 [facility] Comment on above: Performed By: #### B 100.0800 ####[facility] ([facility])[address] [place] [phone] Nivar, MD AST/SGOT 15 IU/L Normal 15-41 [facility] Comment on above: Performed By: #### B 100.0800 ####[facility] ([facility])[address] [place] [phone] Nivar, MD Bili,Direct < 0.1 Low 0.1-0.2 [facility] Comment on above: Performed By: #### B 100.0800 ####[facility] ([facility])[address] [phone] Nivar, MD Bili,Total < 0.1 Low 0.2-1.0 [facility] Comment on above: Result Comment: Delt a: 0.7 on 03/26/18-1615 Performed By: #### B 100.0800 ####[facility] ([facility])[address] [place] [phone] Nivar, MD Protein mass conc 6.5 g/dL Normal 6.2-8.0 [facility] Comment on above: Performed By: #### B 100.0800 ####[facility] ([facility])[address], [place] [phone] Nivar, MD LDHon 04-16-2018 LDH 80 iu/l Low 98-192 [facility] Comment on above: Performed By: #### B 100.0800 ####[facility] ([facility])[address], [place] [phone] Nivar, MD Nonstress Test Reporton 04-02 Nonstress Test Report [facility] Medical Records Patient: KAYLEEN PETE [address] : 1995 [place], [place] [address] Location: [facility] [phone] Unit #: [id number] Nonstress Test Report Audrey Rao MD (LMA) SUBJECTIVE: This 22y.o. patient presented on 04/09/18 at 30+ weeks gestation complaining of LEAKING OF FLUID AND CTX. +GEST DIABETES OBJECTIVE: NEG AMNISURE Heart Rate: Baseline Heart Rate: 130S Accelerations: Present Decelerations: None Variability: Moderate Contraction Frequency: RARE The NST was reactive level 1. ASSESSMENT AND PLAN: Discharged to home in stable condition and instructed to follow up at her next scheduled appointment. Audrey Rao MD (LMA) cc: Audrey Rao MD; Wendy Suazo MD Dictated by: Audrey Rao MD (LMA) on 04/09/182012 Entered by: Audrey Rao MD (LMA) on 04/16/18912 Report Signed by: Audrey Rao MD on 04/16/18 0914 < > Co-Signed by: on Normal [facility] Prothrombin Timeon 8 INR Coag RelTime (PPP) 0.98 {INR} Normal 0.9-1.[address] [facility] Comment on above: Order Comment: Is Pa tient receiving Heparin? No Result Comment: Grover dard dose INR: 2.0-3.0High dose INR: 2.5-3.5 Performed By: #### B 100.0800 ####[facility] ([facility])[address] [phone] Nivar, MD Prothrombin time (PT) Coag time (PPP) 11.3 Sec Normal 9.6-13.3 [facility] Comment on above: Order Comment: Is Pa tient receiving Heparin? No Performed By: #### B 100.0800 ####[facility] ([facility])[address] [phone] Nivar, MD Uric Acidon 04-16-2018 Urate mass conc 3.8 mg/dL Normal 2.6-8.0 [facility] Comment on above: Performed By: #### B 100.0800 ####[facility] ([facility])[address] [phone] Nivar, MD Urinalysis with Reflex Cultu reon 04-16-2018 Appearance Hazy High [facility] Comment on above: Order Comment: Urine Source Urine, Clean Catch Performed By: #### B 100.0800 ####[facility] ([facility])[address] [place] [phone] Nivar, MD Bacteria Trace Normal [facility] Comment on above: Order Comment: Urine Source Urine, Clean Catch Performed By: #### B 100.0800 ####[facility] ([facility])[address] [place] [phone] Nivar, MD Bilirubin Negative Normal Negative [facility] Comment on above: Order Comment: Urine Source Urine, Clean Catch Performed By: #### B 100.0800 ####[facility] ([facility])[address] [phone] Nivar, MD Color Yellow Normal [facility] Comment on above: Order Comment: Urine Source Urine, Clean Catch Performed By: #### B 100.0800 ####[facility] ([facility])[address] [phone] Nivar, MD Epi,Squamous 11-20 High [facility] Comment on above: Order Comment: Urine Source Urine, Clean Catch Performed By: #### B 100.0800 ####[facility] ([facility])[address] [phone] Nivar, MD Glucose Negative Normal Negative [facility] Comment on above: Order Comment: Urine Source Urine, Clean Catch Performed By: #### B 100.0800 ####[facility] ([facility])[address] [phone] Nivar, MD INR Coag RelTime (Bld) 0-[address] [facility] Comment on above: Order Comment: Urine Source Urine, Clean Catch Performed By: #### B 100.0800 ####[facility] ([facility])[address] [phone] Nivar, MD Ketones Negative Normal Negative [facility] Comment on above: Order Comment: Urine Source Urine, Clean Catch Performed By: #### B 100.0800 ####[facility] ([facility])[address] [phone] Nivar, MD Leukocytes Trace High Negative [facility] Comment on above: Order Comment: Urine Source Urine, Clean Catch Performed By: #### B 100.0800 ####[facility] ([facility])[address] [phone] Nivar, MD Mucous Present Normal [facility] Comment on above: Order Comment: Urine Source Urine, Clean Catch Performed By: #### B 100.0800 ####[facility] ([facility])[address] [phone] Nivar, MD Nitrites Negative Normal Negative [facility] Comment on above: Order Comment: Urine Source Urine, Clean Catch Performed By: #### B 100.0800 ####[facility] ([facility])[address] [phone] Nivar, MD pH 7.0 Normal 5.0-8.0 [facility] Comment on above: Order Comment: Urine Source Urine, Clean Catch Performed By: #### B 100.0800 ####[facility] ([facility])[address] [phone] Nivar, MD Protein mass conc Negative Normal Negative [facility] Comment on above: Order Comment: Urine Source Urine, Clean Catch Performed By: #### B 100.0800 ####[facility] ([facility])[address] [phone] Nivar, MD Specific [place] 1.008 Normal 1.000-1.035 [facility] Comment on above: Order Comment: Urine Source Urine, Clean Catch Performed By: #### B 100.0800 ####[facility] ([facility])[address] [phone] Nivar, MD UA Reflex Culture No Normal [facility] Comment on above: Order Comment: Urine Source Urine, Clean Catch Result Comment: Cult ure not done per lab protocol Performed By: #### B 100.0800 ####[facility] ([facility])[address] [phone] Nivar, MD Urobilinogen <2.0 E.U./dL Normal 0.2-1.0 [facility] Comment on above: Order Comment: Urine Source Urine, Clean Catch Performed By: #### B 100.0800 ####[facility] ([facility])[address] [phone] Nivar, MD WBC 0-5 Normal [facility] Comment on above: Order Comment: Urine Source Urine, Clean Catch Performed By: #### B 100.0800 ####[facility] ([facility])[address] [phone] Nivar, MD Urine Protein/Creatinine Rat ioon 04-16-2018 Creatinine mass conc (U) 57.7 mg/dL Normal [facility] Comment on above: Performed By: #### B 100.0800 ####[facility] ([facility])[address] [phone] Nivar, MD Total Protein, Random Urine 8.0 mg/dL Normal [facility] Comment on above: Performed By: #### B 100.0800 ####[facility] ([facility])[address] [phone] Nivar, MD Urine Protein/Creatinine Ratio 0.1 g/1.73m2 Normal <0.15 [facility] Comment on above: Performed By: #### B 100.0800 ####[facility] ([facility])[address] [phone] Nivar, MD AmniSure ROMon 04-09-2018 AmniSure ROM Negative Normal [facility] Comment on above: Result Comment: Rupt ure of amniotic membrane not indicated. Performed By: #### L 300.3000 ####[facility] ([facility])[address] [phone] Nivar, MD Drug Screen Urineon 04-09-20 18 Amphetamines Negative Normal Negative [facility] Comment on above: Performed By: #### L 300.3000 ####[facility] ([facility])[address] [phone] Nivar, MD Barbiturates Negative Normal Negative [facility] Comment on above: Performed By: #### L 300.3000 ####[facility] ([facility])[address] [phone] Nivar, MD Benzodiazepines Negative Normal Negative [facility] Comment on above: Performed By: #### L 300.3000 ####[facility] ([facility])[address], [place] [phone] Nivar, MD Cannabinoids Positive High Negative [facility] Comment on above: Performed By: #### L 300.3000 ####[facility] ([facility])[address], [place] [phone] Nivar, MD Cocaine Negative Normal Negative [facility] Comment on above: Performed By: #### L 300.3000 ####[facility] ([facility])[address], [place] [phone] Nivar, MD Opiates Negative Normal Negative [facility] Comment on above: Performed By: #### L 300.3000 ####[facility] ([facility])[address], [place] [phone] Nivar, MD Phencyclidine Negative Normal Negative [facility] Comment on above: Performed By: #### L 300.3000 ####[facility] ([facility])[address], [place] [phone] Nivar, MD Oxycodone Negative Normal Negative [facility] Comment on above: Performed By: #### L 300.3000 ####[facility] ([facility])[address], [place] [phone] Nivar, MD Comment Normal [facility] Comment on above: Result Comment: This drug of abuse screen is not intended for employmentrelated testing and is intended for use in clinicalmanagement of patients. Cut-off Concentrations for Positive ResultsPhencyclidine 25 ng/mLBenzodiazepines 200 ng/mLCocaine 300 ng/mLAmphetamines 1000 ng/mLCannabinoids 100 ng/mLOpiates 300 ng/mLBarbiturates 200 ng/mLOxycodone 100 ng/mL Performed By: #### L 300.3000 ####[facility] ([facility])[address] [phone] Nivar, MD Urinalysis with Reflex Cultu reon 04-09-[address] [facility] Comment on above: Order Comment: Urine Source Urine, Unknown Collection Performed By: #### L 300.3000 ####[facility] ([facility])[address] [place] [phone] Nivar, MD Bacteria Trace Normal [facility] Comment on above: Order Comment: Urine Source Urine, Unknown Collection Performed By: #### L 300.3000 ####[facility] ([facility])[address] [place] [phone] Fuentes MD Bilirubin Negative Normal Negative [facility] Comment on above: Order Comment: Urine Source Urine, Unknown Collection Performed By: #### L 300.3000 ####[facility] ([facility])[address] [phone] Nivar, MD Color Yellow Normal [facility] Comment on above: Order Comment: Urine Source Urine, Unknown Collection Performed By: #### L 300.3000 ####[facility] ([facility])[address] [phone] Fuentes MD Epi,Squamous 6-10 [facility] Comment on above: Order Comment: Urine Source Urine, Unknown Collection Performed By: #### L 300.3000 ####[facility] ([facility])[address] [phone] Fuentes MD Glucose Negative Normal Negative [facility] Comment on above: Order Comment: Urine Source Urine, Unknown Collection Performed By: #### L 300.3000 ####[facility] ([facility])[address] [phone] Nivar, MD INR Coag RelTime (Bld) 0-[address] [facility] Comment on above: Order Comment: Urine Source Urine, Unknown Collection Performed By: #### L 300.3000 ####[facility] ([facility])[address], [place] [phone] Nivar, MD Ketones Negative Normal Negative [facility] Comment on above: Order Comment: Urine Source Urine, Unknown Collection Performed By: #### L 300.3000 ####[facility] ([facility])[address] [phone] Nivar, MD Leukocytes Negative Normal Negative [facility] Comment on above: Order Comment: Urine Source Urine, Unknown Collection Performed By: #### L 300.3000 ####[facility] ([facility])[address] [phone] Nivar, MD Mucous Present Normal [facility] Comment on above: Order Comment: Urine Source Urine, Unknown Collection Performed By: #### L 300.3000 ####[facility] ([facility])[address] [phone] Nivar, MD Nitrites Negative Normal Negative [facility] Comment on above: Order Comment: Urine Source Urine, Unknown Collection Performed By: #### L 300.3000 ####[facility] ([facility])[address] [phone] Nivar, MD pH 6.0 Normal 5.0-8.0 [facility] Comment on above: Order Comment: Urine Source Urine, Unknown Collection Performed By: #### L 300.3000 ####[facility] ([facility])[address] [phone] Nivar, MD Protein mass conc Negative Normal Negative [facility] Comment on above: Order Comment: Urine Source Urine, Unknown Collection Performed By: #### L 300.3000 ####[facility] ([facility])[address] [phone] Nivar, MD Specific [place] 1.010 Normal 1.000-1.035 [facility] Comment on above: Order Comment: Urine Source Urine, Unknown Collection Performed By: #### L 300.3000 ####[facility] ([facility])[address] [phone] Nivar, MD UA Reflex Culture No Normal [facility] Comment on above: Order Comment: Urine Source Urine, Unknown Collection Result Comment: Cult ure not done per lab protocol Performed By: #### L 300.3000 ####[facility] ([facility])[address] [phone] Nivar, MD Urobilinogen <2.0 E.U./dL Normal 0.2-1.0 [facility] Comment on above: Order Comment: Urine Source Urine, Unknown Collection Performed By: #### L 300.3000 ####[facility] ([facility])[address], [place] [phone] Nivar, MD WBC 0-5 Normal [facility] Comment on above: Order Comment: Urine Source Urine, Unknown Collection Performed By: #### L 300.3000 ####[facility] ([facility])[address] [phone] Nivar, MD Nonstress Test Reporton 10-0 Nonstress Test Report [facility] Medical Records Patient: KAYLEEN PETE [address] : 1995 [place], [place] [address] Location: OB [phone] Unit #: [id number] Nonstress Test Report Lenora Peña [facility] SUBJECTIVE: This 22y.o. patient presented on 03/26/18 at 28+ weeks gestation sent from the office for PIH labs and elevated blood pressure. OBJECTIVE: VSS. Afebrile. Baseline PIH labs drawn - WNL Heart Rate: Baseline Heart Rate: 135 Accelerations: Present Decelerations: None Variability: Moderate Contraction Frequency: none The NST was reactive level 1. ASSESSMENT AND PLAN: Discharged to home in stable condition undelivered and instructed to follow up at her next scheduled appointment. Lenora Peña CNM cc: Lenora Peña CNM; Wendy Suazo MD Dictated by: Lenora Peña CNM on 04/02/181539 Entered by: Lenora Peña CNM on 04/02/18 154 Report Signed by: Lenora Peña CNM on 04/02/181657 < > Co-Signed by: on Normal [facility] CBC with Differentialon 03-04 Abs Baso Count 100 /cmm Normal 0-200 [facility] Comment on above: Performed By: #### L 300.3000 ####[facility] ([facility])[address], [place] [phone] Nivar, MD Abs Eos Count 100 /cmm Normal 0-500 [facility] Comment on above: Performed By: #### L 300.3000 ####[facility] ([facility])[address], [place] [phone] Nivar, MD Abs Branch Count 800 /cmm Normal 0-800 [facility] Comment on above: Performed By: #### L 300.3000 ####[facility] ([facility])[address], [place] [phone] Nivar, MD Abs Neut Count 82105 /cmm High 7193-5463 [facility] Comment on above: Performed By: #### L 300.3000 ####[facility] ([facility])[address], [place] [phone] Nivar, MD Basophils Auto #/vol (Bld) 0.8 % Normal 0-2 [facility] Comment on above: Performed By: #### L 300.3000 ####[facility] ([facility])[address], [place] [phone] Nivar, MD EOS-Auto Diff 0.9 % Normal 0-6 [facility] Comment on above: Performed By: #### L 300.3000 ####[facility] ([facility])[address] [phone] Nivar, MD Erythrocyte distribution width Auto Ratio (RBC) 13.8 % Normal 12.0-16.0 [facility] Comment on above: Performed By: #### L 300.3000 ####[facility] ([facility])[address] [phone] Nivar, MD Hematocrit Auto Volume Fraction (Bld) 38.2 % Normal 35.0-44.0 [facility] Comment on above: Performed By: #### L 300.3000 ####[facility] ([facility])[address] [phone] Nivar, MD Hemoglobin mass conc (Bld) 12.4 g/dL Normal 12.0-15.0 [facility] Comment on above: Performed By: #### L 300.3000 ####[facility] ([facility])[address] [phone] Nivar, MD Hypochromasia 1+ Normal [facility] Comment on above: Performed By: #### L 300.3000 ####[facility] ([facility])[address] [phone] Nivar, MD Lymphocytes Auto #/vol (Bld) 2200 /cmm Normal 5430-2609 [facility] Comment on above: Performed By: #### L 300.3000 ####[facility] ([facility])[address], [place] [phone] Nivar, MD Lymphocytes/100 WBC Auto (Bld) 16.1 % Normal 15-45 [facility] Comment on above: Performed By: #### L 300.3000 ####[facility] ([facility])[address] [place] [phone] Nivar, MD MCH Auto Entitic mass (RBC) 26.7 pg Low 27.5-33.0 [facility] Comment on above: Performed By: #### L 300.3000 ####[facility] ([facility])[address] [place] [phone] Nivar, MD MCHC Auto mass conc (RBC) 32.4 g/dL Low 33.0-36.0 [facility] Comment on above: Performed By: #### L 300.3000 ####[facility] ([facility])[address] [place] [phone] Nivar, MD MCV Auto Entitic volume (RBC) 82.4 CU EHSAN Normal 80-97 [facility] Comment on above: Performed By: #### L 300.3000 ####[facility] ([facility])[address] [place] [phone] Nivar, MD Branch- Auto Diff 5.9 % Normal 2-10 [facility] Comment on above: Performed By: #### L 300.3000 ####[facility] ([facility])[address] [place] [phone] Nivar, MD Neut-Auto Diff 76.3 % High 40-70 [facility] Comment on above: Performed By: #### L 300.3000 ####[facility] ([facility])[address] [place] [phone] Nivar, MD NRBC-Auto 0.0 /100 WBC Normal <1 [facility] Comment on above: Performed By: #### L 300.3000 ####[facility] ([facility])[address] [phone] Nivar, MD Platelets Auto #/vol (Bld) 437 th/cmm High 150-400 [facility] Comment on above: Performed By: #### L 300.3000 ####[facility] ([facility])[address] [phone] Nivar, MD RBC Auto #/vol (Bld) 4.63 mil/cmm Normal 4.00-5.[address] [facility] Comment on above: Performed By: #### L 300.3000 ####[facility] ([facility])[address] [phone] Nivar, MD WBC Auto #/vol (Bld) 13.7 th/cmm High 4.4-10.5 [facility] Comment on above: Performed By: #### L 300.3000 ####[facility] ([facility])[address] [phone] Nivar, MD Comprehensive Metabolic Pane sahyne 03-26-2018 Albumin mass conc 3.8 g/dL Normal 3.5-5.0 [facility] Comment on above: Performed By: #### L 300.3000 ####[facility] ([facility])[address] [phone] Nivar, MD Albumin/Globulin mass ratio 1.3 {ratio} Low 1.5-2.5 [facility] Comment on above: Performed By: #### L 300.3000 ####[facility] ([facility])[address] [phone] Nivar, MD Alk Phos 85 IU/L Normal 39-118 [facility] Comment on above: Performed By: #### L 300.3000 ####[facility] ([facility])[address], [place] [phone] Nivar, MD ALT/SGPT 12 IU/L Normal 10-40 [facility] Comment on above: Performed By: #### L 300.3000 ####[facility] ([facility])[address], [place] [phone] Nivar, MD AST/SGOT 14 IU/L Low 15-41 [facility] Comment on above: Performed By: #### L 300.3000 ####[facility] ([facility])[address] [place], [place] [phone] Nivar, MD Bili,Total 0.7 mg/dL Normal 0.2-1.0 [facility] Comment on above: Performed By: #### L 300.3000 ####[facility] ([facility])[address], [place] [phone] Nivar, MD Urea nitrogen mass conc mg/dL Low 7-20 [facility] Comment on above: Performed By: #### L 300.3000 ####[facility] ([facility])[address], [place] [phone] Nivar, MD Anion gap 3 molar conc 11 mmol/L Normal 4-[address] [facility] Comment on above: Performed By: #### L 300.3000 ####[facility] ([facility])[address], [place] [phone] Nivar, MD Calcium mass conc 9.0 mg/dL Normal 8.8-10.5 [facility] Comment on above: Performed By: #### L 300.3000 ####[facility] ([facility])[address], [place] [phone] Nivar, MD Chloride molar conc 101 mmol/L Normal 101-111 [facility] Comment on above: Performed By: #### L 300.3000 ####[facility] ([facility])[address] [place] [phone] Nivar, MD CO2 molar conc 22 mmol/L Normal 21-32 [facility] Comment on above: Performed By: #### L 300.3000 ####[facility] ([facility])[address] [place] [phone] Nivar, MD Creatinine mass conc 0.45 mg/dL Low 0.60-1.30 [facility] Comment on above: Performed By: #### L 300.3000 ####[facility] ([facility])[address] [place] [phone] Nivar, MD GFR/1.73 sq M predicted among non-blacks MDRD vol rate/area (S/P/Bld) mL/min/{1.73_m2} Normal [facility] Comment on above: Result Comment: Wool Fleece Grader lorena Kidney Disease stages by NKDFStage eGFR I >90 II 60-89 III 30-59 IV 15-29 V <15 or dialysisAGE(years) AVERAGE GFR 20-29 116 ml/min/1.73 square metersNote:This result is normalized to 1.73 square meter body surface area. Height and weight are not factored. Performed By: #### L 300.3000 ####[facility] ([facility])[address] [place] [phone] Nivar, MD Glucose mass conc 80 mg/dL Normal 70-110 [facility] Comment on above: Result Comment: *Thi s reference range applies to fasting specimens only. Performed By: #### L 300.3000 ####[facility] ([facility])[address] [place] [phone] Nivar, MD Potassium molar conc 3.4 mmol/L Low 3.6-5.0 [facility] Comment on above: Performed By: #### L 300.3000 ####[facility] ([facility])[address] [phone] Nivar, MD Protein mass conc 6.7 g/dL Normal 6.2-8.0 [facility] Comment on above: Performed By: #### L 300.3000 ####[facility] ([facility])[address], [place] [phone] Nivar, MD Sodium molar conc 134 mmol/L Low 135-145 [facility] Comment on above: Performed By: #### L 300.3000 ####[facility] ([facility])[address] [phone] Nivar, MD Drug Screen Urineon 03-26-20 18 Amphetamines Negative Normal Negative [facility] Comment on above: Performed By: #### L 300.3000 ####[facility] ([facility])[address], [place] [phone] Nivar, MD Barbiturates Negative Normal Negative [facility] Comment on above: Performed By: #### L 300.3000 ####[facility] ([facility])[address] [phone] Nivar, MD Benzodiazepines Negative Normal Negative [facility] Comment on above: Performed By: #### L 300.3000 ####[facility] ([facility])[address], [place] [phone] Nivar, MD Cannabinoids Positive High Negative [facility] Comment on above: Performed By: #### L 300.3000 ####[facility] ([facility])[address], [place] [phone] Nivar, MD Cocaine Negative Normal Negative [facility] Comment on above: Performed By: #### L 300.3000 ####[facility] ([facility])[address] [phone] Nivar, MD Opiates Negative Normal Negative [facility] Comment on above: Performed By: #### L 300.3000 ####[facility] ([facility])[address], [place] [phone] Nivar, MD Phencyclidine Negative Normal Negative [facility] Comment on above: Performed By: #### L 300.3000 ####[facility] ([facility])[address] [phone] Nivar, MD Oxycodone Negative Normal Negative [facility] Comment on above: Performed By: #### L 300.3000 ####[facility] ([facility])[address] [phone] Nivar, MD Comment Normal [facility] Comment on above: Result Comment: This drug of abuse screen is not intended for employmentrelated testing and is intended for use in clinicalmanagement of patients. Cut-off Concentrations for Positive ResultsPhencyclidine 25 ng/mLBenzodiazepines 200 ng/mLCocaine 300 ng/mLAmphetamines 1000 ng/mLCannabinoids 100 ng/mLOpiates 300 ng/mLBarbiturates 200 ng/mLOxycodone 100 ng/mL Performed By: #### L 300.3000 ####Main Laboratory ([facility])[address] [phone] Nivar, MD Uric Acidon 03-26-2018 Urate mass conc 3.8 mg/dL Normal 2.6-8.0 [facility] Comment on above: Performed By: #### L 300.3000 ####Main Laboratory ([facility])[address] [phone] Nivar, MD Urinalysis with Reflex Cultu reon 03-26-2018 Appearance Hazy High [facility] Comment on above: Order Comment: Urine Source Urine, Unknown Collection Performed By: #### L 300.3000 ####[facility] ([facility])[address] [phone] Nivar, MD Bacteria 1+ High [facility] Comment on above: Order Comment: Urine Source Urine, Unknown Collection Performed By: #### L 300.3000 ####Main Laboratory ([facility])[address] [phone] Nivar, MD Bilirubin Negative Normal Negative [facility] Comment on above: Order Comment: Urine Source Urine, Unknown Collection Performed By: #### L 300.3000 ####Main [facility] ([facility])[address] [phone] Nivar, MD Color Yellow Normal [facility] Comment on above: Order Comment: Urine Source Urine, Unknown Collection Performed By: #### L 300.3000 ####[facility] ([facility])[address] [phone] Nivar, MD Epi,Squamous 21-50 [facility] Comment on above: Order Comment: Urine Source Urine, Unknown Collection Performed By: #### L 300.3000 ####Main [facility] ([facility])[address] [phone] Nivar, MD Glucose Negative Normal Negative [facility] Comment on above: Order Comment: Urine Source Urine, Unknown Collection Performed By: #### L 300.3000 ####Main [facility] ([facility])[address] [phone] Nivar, MD INR Coag RelTime (Bld) 0-[address] [facility] Comment on above: Order Comment: Urine Source Urine, Unknown Collection Performed By: #### L 300.3000 ####[facility] ([facility])[address] [phone] Nivar, MD Ketones Negative Normal Negative [facility] Comment on above: Order Comment: Urine Source Urine, Unknown Collection Performed By: #### L 300.3000 ####Main [facility] ([facility])[address] [phone] Nivar, MD Leukocytes Trace High Negative [facility] Comment on above: Order Comment: Urine Source Urine, Unknown Collection Performed By: #### L 300.3000 ####Main Laboratory ([facility])[address] [phone] Nivar, MD Mucous Present Normal [facility] Comment on above: Order Comment: Urine Source Urine, Unknown Collection Performed By: #### L 300.3000 ####Main [facility] ([facility])[address] [phone] Nivar, MD Nitrites Negative Normal Negative [facility] Comment on above: Order Comment: Urine Source Urine, Unknown Collection Performed By: #### L 300.3000 ####Main [facility] ([facility])[address] [phone] Nivar, MD pH 7.0 Normal 5.0-8.0 [facility] Comment on above: Order Comment: Urine Source Urine, Unknown Collection Performed By: #### L 300.3000 ####Main [facility] ([facility])[address] [phone] Nivar, MD Protein mass conc Negative Normal Negative [facility] Comment on above: Order Comment: Urine Source Urine, Unknown Collection Performed By: #### L 300.3000 ####Main Laboratory ([facility])[address] [phone] Nivar, MD Specific [place] 1.011 Normal 1.000-1.035 [facility] Comment on above: Order Comment: Urine Source Urine, Unknown Collection Performed By: #### L 300.3000 ####Main Laboratory ([facility])[address] [phone] Nivar, MD UA Reflex Culture No Normal [facility] Comment on above: Order Comment: Urine Source Urine, Unknown Collection Result Comment: Cult ure not done per lab protocol Performed By: #### L 300.3000 ####Main [facility] ([facility])[address] [phone] Nivar, MD Urobilinogen <2.0 E.U./dL Normal 0.2-1.0 [facility] Comment on above: Order Comment: Urine Source Urine, Unknown Collection Performed By: #### L 300.3000 ####Main [facility] ([facility])[address] [phone] Nivar, MD WBC 0-5 Normal [facility] Comment on above: Order Comment: Urine Source Urine, Unknown Collection Performed By: #### L 300.3000 ####[facility] ([facility])[address] [place] [phone] Nivar, MD Urine Protein/Creatinine Rat ioon 03-26-2018 Creatinine mass conc (U) 61.6 mg/dL Normal [facility] Comment on above: Performed By: #### L 300.3000 ####[facility] ([facility])[address] [phone] Nivar, MD Total Protein, Random Urine 7.0 mg/dL Normal [facility] Comment on above: Performed By: #### L 300.3000 ####[facility] ([facility])[address] [phone] Nivar, MD Urine Protein/Creatinine Ratio 0.1 g/1.73m2 Normal <0.15 [facility] Comment on above: Performed By: #### L 300.3000 ####[facility] ([facility])[address] [phone] Nivar, MD Urine culture, reflexon 12-31 Urine culture, reflex No growth(<10,000 CFU/ml)of urinary tract pathogens. Tobias present are not the usual etiologic agents of a urinary tract infection and probably represent vaginal,urethral, or skin tobias. Contact Microbiology at extension [phone] if further information is needed. ORGANISM 1: Mixed tobias- 3 species presentColony count >100,000 CFU/ml Normal [facility] Comment on above: Performed By: #### M 120.0050 ####[facility] ([facility])[address] [place], [place] [phone] Nivar, MD HIV 1&2 Evaluationon 018 HIV 1&2 Evaluation Nonreactive Normal Nonreactive [facility] Comment on above: Performed By: #### L 800.0100, L800.0300, L800.0400, L800.4806 ####[facility] ([facility])[address], [place] [phone] Nivar, MD Hemoglobin A1Con 01-12-2018 Glucose mass conc 97 mg/dL Normal [facility] Comment on above: Result Comment: ana mated Average Glucose(eAG) calculation has been modifiedto reflect guidelines established by the [place] [employer]. This change does not affect the %A1c,howeverindividuals that closely monitor the eAG may notice a slightshift in their results. Performed By: #### L 404.6700 ####[facility] ([facility])[address] [place], [place] [phone] Nivar, MD Hemoglobin A1c/Hemoglobin.total mass fraction (Bld) 5.0 % Normal 4.4-6.4 [facility] Comment on above: Performed By: #### L 404.6700 ####[facility] ([facility])[address] [place], [place] [phone] Nivar, MD Hepatitis B Surface Agon Hepatitis B Surface Ag Nonreactive Normal Nonreactive [facility] Comment on above: Performed By: #### L 800.0100, L800.0300, L800.0400, L800.4806 ####[facility] ([facility])[address] [phone] Nivar, MD RPRon 01-12-2018 RPR / VDRL NonReactive Normal NonReactive [facility] Comment on above: Performed By: #### L 800.0100, L800.0300, L800.0400, L800.4806 ####[facility] ([facility])[address] [place], [place] [phone] Nivar, MD Rubella IgG Antibodyon 01-12 Rubella IgG Antibody Reactive Normal [facility] Comment on above: Performed By: #### L 800.0100, L800.0300, L800.0400, L800.4806 ####[facility] ([facility])[address] [place], [place] [phone] Nivar, MD Complete Blood Counton 01-11 Abs Baso Count 100 /cmm Normal 0-200 [facility] Comment on above: Performed By: #### L 100.0000 ####[facility] ([facility])[address], [place] [phone] Nivar, MD Abs Eos Count 100 /cmm Normal 0-500 [facility] Comment on above: Performed By: #### L 100.0000 ####[facility] ([facility])[address], [place] [phone] Nivar, MD Abs Branch Count 1200 /cmm High 0-800 [facility] Comment on above: Performed By: #### L 100.0000 ####[facility] ([facility])[address], [place] [phone] Nivar, MD Abs Neut Count 74615 /cmm High 4187-6280 [facility] Comment on above: Performed By: #### L 100.0000 ####[facility] ([facility])[address] [phone] Nivar, MD Basophils Auto #/vol (Bld) 0.3 % Normal 0-2 [facility] Comment on above: Performed By: #### L 100.0000 ####[facility] ([facility])[address], [place] [phone] Nivar, MD EOS-Auto Diff 0.8 % Normal 0-6 [facility] Comment on above: Performed By: #### L 100.0000 ####[facility] ([facility])[address] [phone] Nivar, MD Erythrocyte distribution width Auto Ratio (RBC) 13.4 % Normal 12.0-16.0 [facility] Comment on above: Performed By: #### L 100.0000 ####[facility] ([facility])[address] [phone] Nivar, MD Hematocrit Auto Volume Fraction (Bld) 38.1 % Normal 35.0-44.0 [facility] Comment on above: Performed By: #### L 100.0000 ####[facility] ([facility])[address], [place] [phone] Nivar, MD Hemoglobin mass conc (Bld) 12.8 g/dL Normal 12.0-15.0 [facility] Comment on above: Performed By: #### L 100.0000 ####[facility] ([facility])[address], [place] [phone] Nivar, MD Hypochromasia 1+ Normal [facility] Comment on above: Performed By: #### L 100.0000 ####[facility] ([facility])[address] [phone] Nivar, MD Lymphocytes Auto #/vol (Bld) 2000 /cmm Normal 5486-6634 [facility] Comment on above: Performed By: #### L 100.0000 ####[facility] ([facility])[address] [phone] Nivar, MD Lymphocytes/100 WBC Auto (Bld) 12.0 % Low 15-45 [facility] Comment on above: Performed By: #### L 100.0000 ####[facility] ([facility])[address] [phone] Nivar, MD MCH Auto Entitic mass (RBC) 26.8 pg Low 27.5-33.0 [facility] Comment on above: Performed By: #### L 100.0000 ####[facility] ([facility])[address], [place] [phone] Nivar, MD MCHC Auto mass conc (RBC) 33.6 g/dL Normal 33.0-36.0 [facility] Comment on above: Performed By: #### L 100.0000 ####[facility] ([facility])[address] [phone] Nivar, MD MCV Auto Entitic volume (RBC) 80.0 CU EHSAN Normal 80-97 [facility] Comment on above: Performed By: #### L 100.0000 ####[facility] ([facility])[address] [phone] Nivar, MD Branch- Auto Diff 7.2 % Normal 2-10 [facility] Comment on above: Performed By: #### L 100.0000 ####[facility] ([facility])[address] [phone] Nivar, MD Neut-Auto Diff 79.7 % High 40-70 [facility] Comment on above: Performed By: #### L 100.0000 ####[facility] ([facility])[address] [phone] Nivar, MD NRBC-Auto 0.0 /100 WBC Normal <1 [facility] Comment on above: Performed By: #### L 100.0000 ####[facility] ([facility])[address] [phone] Nivar, MD Platelets Auto #/vol (Bld) 413 th/cmm High 150-400 [facility] Comment on above: Performed By: #### L 100.0000 ####[facility] ([facility])[address] [phone] Nivar, MD RBC Auto #/vol (Bld) 4.77 mil/cmm Normal 4.00-5.[address] [facility] Comment on above: Performed By: #### L 100.0000 ####[facility] ([facility])[address], [place] [phone] Nivar, MD WBC Auto #/vol (Bld) 16.9 th/cmm High 4.4-10.5 [facility] Comment on above: Performed By: #### L 100.0000 ####[facility] ([facility])[address] [phone] Nivar, MD Drug Screen Urineon 01-12-20 18 Oxycodone Negative Normal Negative [facility] Comment on above: Performed By: #### L 402.4000 ####[facility] ([facility])[address] [phone] Nivar, MD Amphetamines Negative Normal Negative [facility] Comment on above: Performed By: #### L 402.4000 ####[facility] ([facility])[address] [phone] Nivar, MD Barbiturates Negative Normal Negative [facility] Comment on above: Performed By: #### L 402.4000 ####[facility] ([facility])[address], [place] [phone] Nivar, MD Benzodiazepines Negative Normal Negative [facility] Comment on above: Performed By: #### L 402.4000 ####[facility] ([facility])[address], [place] [phone] Nivar, MD Cannabinoids Positive High Negative [facility] Comment on above: Performed By: #### L 402.4000 ####[facility] ([facility])[address], [place] [phone] Nivar, MD Cocaine Negative Normal Negative [facility] Comment on above: Performed By: #### L 402.4000 ####[facility] ([facility])[address], [place] [phone] Nivar, MD Opiates Negative Normal Negative [facility] Comment on above: Performed By: #### L 402.4000 ####[facility] ([facility])[address], [place] [phone] Nivar, MD Phencyclidine Negative Normal Negative [facility] Comment on above: Performed By: #### L 402.4000 ####[facility] ([facility])[address], [place] [phone] Nivar, MD Comment Normal [facility] Comment on above: Result Comment: This drug of abuse screen is not intended for employmentrelated testing and is intended for use in clinicalmanagement of patients. Cut-off Concentrations for Positive ResultsPhencyclidine 25 ng/mLBenzodiazepines 200 ng/mLCocaine 300 ng/mLAmphetamines 1000 ng/mLCannabinoids 100 ng/mLOpiates 300 ng/mLBarbiturates 200 ng/mLOxycodone 100 ng/mL Performed By: #### L 402.4000 ####[facility] ([facility])[address] [phone] Nivar, MD Type and Screen/Prenatalon 0 01-11-2018 AB Screen (IAT) Negative Normal [facility] Comment on above: Performed By: #### B 100.0800 ####[facility] ([facility])[address] [phone] Nivar, MD ABO and Rh group Nom (Bld) O Positive [facility] Comment on above: Performed By: #### B 100.0800 ####[facility] ([facility])[address] [place] [phone] Nivar, MD Urinalysis with Reflex Cultu reon 01-11-2018 Appearance Cloudy High [facility] Comment on above: Order Comment: Urine Source Urine, Unknown Collection Performed By: #### L 300.3000 ####[facility] ([facility])[address] [phone] Nivar, MD Bacteria Trace Normal [facility] Comment on above: Order Comment: Urine Source Urine, Unknown Collection Performed By: #### L 300.3000 ####[facility] ([facility])[address] [place] [phone] Nivar, MD Bilirubin Negative Normal Negative [facility] Comment on above: Order Comment: Urine Source Urine, Unknown Collection Performed By: #### L 300.3000 ####[facility] ([facility])[address] [phone] Nivar, MD Color Yellow Normal [facility] Comment on above: Order Comment: Urine Source Urine, Unknown Collection Performed By: #### L 300.3000 ####[facility] ([facility])[address] [place] [phone] Nivar, MD Epi,Squamous 11-20 High [facility] Comment on above: Order Comment: Urine Source Urine, Unknown Collection Performed By: #### L 300.3000 ####[facility] ([facility])[address] [phone] Nivar, MD Glucose Negative Normal Negative [facility] Comment on above: Order Comment: Urine Source Urine, Unknown Collection Performed By: #### L 300.3000 ####[facility] ([facility])[address] [place] [phone] Nivar, MD INR Coag RelTime (Bld) 0-[address] [facility] Comment on above: Order Comment: Urine Source Urine, Unknown Collection Performed By: #### L 300.3000 ####[facility] ([facility])[address] [place] [phone] Nivar, MD Ketones Negative Normal Negative [facility] Comment on above: Order Comment: Urine Source Urine, Unknown Collection Performed By: #### L 300.3000 ####[facility] ([facility])[address] [place] [phone] Nivar, MD Leukocytes Moderate High Negative [facility] Comment on above: Order Comment: Urine Source Urine, Unknown Collection Performed By: #### L 300.3000 ####[facility] ([facility])[address] [place] [phone] Nivar, MD Mucous Present Normal [facility] Comment on above: Order Comment: Urine Source Urine, Unknown Collection Performed By: #### L 300.3000 ####[facility] ([facility])[address] [phone] Nivar, MD Nitrites Negative Normal Negative [facility] Comment on above: Order Comment: Urine Source Urine, Unknown Collection Performed By: #### L 300.3000 ####[facility] ([facility])[address] [phone] Nivar, MD pH 6.0 Normal 5.0-8.0 [facility] Comment on above: Order Comment: Urine Source Urine, Unknown Collection Performed By: #### L 300.3000 ####[facility] ([facility])[address] [phone] Nivar, MD Protein mass conc Negative Normal Negative [facility] Comment on above: Order Comment: Urine Source Urine, Unknown Collection Performed By: #### L 300.3000 ####[facility] ([facility])[address] [phone] Nivar, MD Specific [place] 1.016 Normal 1.000-1.035 [facility] Comment on above: Order Comment: Urine Source Urine, Unknown Collection Performed By: #### L 300.3000 ####[facility] ([facility])[address] [phone] Nivar, MD UA Reflex Culture Yes Normal [facility] Comment on above: Order Comment: Urine Source Urine, Unknown Collection Result Comment: Cult ure done per lab protocol Performed By: #### L 300.3000 ####[facility] ([facility])[address] [place] [phone] Nivar, MD Urobilinogen <2.0 E.U./dL Normal 0.2-1.0 [facility] Comment on above: Order Comment: Urine Source Urine, Unknown Collection Performed By: #### L 300.3000 ####[facility] ([facility])[address] [phone] Nivar, MD WBC 0-5 Normal [facility] Comment on above: Order Comment: Urine Source Urine, Unknown Collection Performed By: #### L 300.3000 ####[facility] ([facility])[address] [place], [place] [phone] Nivar, MD Culture-Urineon 11-30-2017 Urine culture, bacteria SEE BELOW Normal [facility] Comment on above: Order Comment: Order ing Doctor: Jeffrey Salgadoformed by [facility] [address] [place], [place] [id number] Result Comment: Sour ce: urineSite: clean voidCollected: 11/30/17 08:29Current Antibiotics: not statedAntibiotics comment: STATUS OF ORDERED AND REPORTED TESTSURINE CULTURE FINAL 12/01/17URINE CULTURE FINAL 12/01/17 09: Growth of Contaminants. The mixture of organisms present are not a common cause of urinary tract infections and probably represent skin tobias or distal urethral tobias. Performed By: #### 1 [id number], [id number] ####[facility] [address] [place], [place] [phone]#### [id number], 5693963, 2929339, 8142074, 4125151, 7939843, 5184555 ####Please refer to Result Comment for Performing Lab Location Urinalysis w/Reflex C and So n 11-30-2017 SG >=1.030 Normal 1.010-1.025 [facility] Comment on above: Order Comment: Order ing Doctor: Jeffrey Salgadoformed by [facility] [address] Performed By: #### 1 [id number], [id number] ####[place] [address] [place], [place] [phone]#### [id number], 0505646, 0769216, 8302645, 3269291, 3274643, 2464188 ####Please refer to Result Comment for Performing Lab Location UABLD Negative Normal NEGATIVE [facility] Comment on above: Order Comment: Order ing Doctor: Jeffrey Salgadoformed by [facility] [address] [id number] Performed By: #### 1 [id number], [id number] ####[facility] [address] [place], [place] [phone]#### [id number], 2423161, 1532879, 6209657, 4711120, 3668838, 6487960 ####Please refer to Result Comment for Performing Lab Location UAGLU Negative Normal NEGATIVE [facility] Comment on above: Order Comment: Order ing Doctor: [place] [address] Performed By: #### 1 [id number], [id number] ####[facility] [address] [place], [place] [phone]#### [id number], 7080301, 4863183, 5706476, 5752088, 4287069, 0671831 ####Please refer to Result Comment for Performing Lab Location UAKET >=80 Normal NEGATIVE [facility] Comment on above: Order Comment: Order ing Doctor: Jeffrey Salgadoformed by [facility] [place] [address] Performed By: #### 1 [id number], [id number] ####[facility] [address] [place], [place] [phone]#### [id number], 4541410, 4021308, 3442071, 5454847, 2351458, [id number] ####Please refer to Result Comment for Performing Lab Location UALEUK Negative Normal NEGATIVE [facility] Comment on above: Order Comment: Order ing Doctor: Jeffrey Salgadoformed [place] [address] Performed By: #### 1 609964, 5465173 ####[place] [address] [place], [place] [phone]#### 7947911, 8133228, 2434709, 4828225, 3985985, 2512402, 9977448 ####Please refer to Result Comment for Performing Lab Location UANIT Negative Normal NEGATIVE [facility] Comment on above: Order Comment: Order ing Doctor: [place] [address] Performed By: #### 1 119832, 5015138 ####[place] [address] [place], [place] [phone]#### 0136077, 3211249, 5731272, 4418938, 6221652, 4544487, 4691781 ####Please refer to Result Comment for Performing Lab Location UAPH 6.0 Normal 5.0-8.0 [facility] Comment on above: Order Comment: Order ing Doctor: [place] [address] Performed By: #### 1 521606, 3907653 ####[place] [address] [place] [address] [phone]#### 7084068, 2065355, 7490556, 5756094, 0302775, 8079601, 8019239 ####Please refer to Result Comment for Performing Lab Location UAPRO 30 mg/dL Normal NEGATIVE [facility] Comment on above: Order Comment: Order ing Doctor: [place] [address] Performed By: #### 1 366061, 6072975 ####[place] [address] [place], [place] 53950761-049-4072#### 4959022, 2878937, 1385340, 7185756, 9074890, 4289849, 3743494 ####Please refer to Result Comment for Performing Lab Location UAURO 2.0 E.U./dL Normal 0.2-1.0 [facility] Comment on above: Order Comment: Order ing Doctor: Damian [place] [address] Performed By: #### 1 512235, 4576551 ####[place] [address] [place], [place] 97765938-620-4756#### 8917045, 3863905, 1991110, 4052607, 7344683, 0365936, 5899417 ####Please refer to Result Comment for Performing Lab Location UCLAR CLOUDY Normal CLEAR [facility] Comment on above: Order Comment: Order ing Doctor: Jeffrey Salgadoformed by [facility] [facility] [address] [place] [address] Performed By: #### 1 877579, 1259438 ####[place] [address] [place], [place] 02817564-865-4544#### 7935140, 5481630, 7134273, 1813303, 4500460, 4333036, 0590343 ####Please refer to Result Comment for Performing Lab Location UMIC YES Normal NO [facility] Comment on above: Order Comment: Order ing Doctor: Jeffrey Salgadoformed [place] [address] Performed By: #### 1 993548, 5379582 ####[place] [address] [place], [place] 58934152-593-7358#### 5431895, 8555952, 8970905, 7446453, 7966745, 3832271, 9108842 ####Please refer to Result Comment for Performing Lab Location Urine, color YELLOW Normal YELLOW [facility] Comment on above: Order Comment: Order ing Doctor: Jeffrey Salgadoformed by [facility] [address] [place] [address] Performed By: #### 1 348438, 9145883 ####[place] [address] [place] [address] [phone]#### 2817298, 5787203, 4506408, 1310726, 2197422, 6103886, 8007505 ####Please refer to Result Comment for Performing Lab Location Urine, urobilinogen SMALL Normal NEGATIVE [facility] Comment on above: Order Comment: Order ing Doctor: Jeffrey Salgadoformed by [facility] [address] [place] [address] Performed By: #### 1 932773, 7593379 ####[place] [address] [place], [place] 43478619-712-6314#### 5521875, 0396038, 9895370, 2771997, 2242471, 7973212, 9466957 ####Please refer to Result Comment for Performing Lab Location Urinalysis-Microscopic Refle x C AND Son 11-30-2017 JAMSHID empty Normal NONE SEEN [facility] Comment on above: Order Comment: Order ing Doctor: [place] [address] Performed By: #### 1 711209, 8058950 ####[place] [address] [place], [place] 60454796-912-6261#### 9633647, 2828428, 2147296, 1904094, 2176927, 5606456, 8966024 ####Please refer to Result Comment for Performing Lab Location AMORPH empty Normal NONE SEEN [facility] Comment on above: Order Comment: Order ing Doctor: Jeffrey Salgadoformed by [facility] [place] [address] Performed By: #### 1 349906, 1470537 ####[place] [address] [place], [place] 00614581-501-5454#### 6438662, 1768767, 4544105, 2541882, 4323130, 4574924, 1603343 ####Please refer to Result Comment for Performing Lab Location CALC OX empty Normal NONE SEEN [facility] Comment on above: Order Comment: Order ing Doctor: Jeffrey Salgadoformed by [facility] [facility] [address] [place] [address] Performed By: #### 1 544455, 8639108 ####[place] [address] [place], [place] 35606501-738-4463#### 6757929, 2894977, 8339293, 1193085, 4744369, 4473974, 9468183 ####Please refer to Result Comment for Performing Lab Location Cholesterol empty Normal NONE SEEN [facility] Comment on above: Order Comment: Order ing Doctor: Jeffrey Salgadoformed [place] [address] Performed By: #### 1 837068, 5913624 ####[place] [address] [place], [place] [phone]#### 8548323, 5108069, 1013747, 6473243, 6555883, 1434348, 4983966 ####Please refer to Result Comment for Performing Lab Location COARSE GRAN empty Normal NONE SEEN [facility] Comment on above: Order Comment: Order ing Doctor: [place] [address] Performed By: #### 1 159715, 7421904 ####[place] [address] [place], [place] 17106900-575-9115#### 3668729, 3884843, 0221931, 6548997, 6897924, 6341229, 8389053 ####Please refer to Result Comment for Performing Lab Location CTSIND YES Normal NO [facility] Comment on above: Order Comment: Order ing Doctor: [place] [address] Performed By: #### 1 260457, 8621049 ####[place] [address] [place], [place] 00534670-970-4595#### 6389673, 0187347, 5892849, 4035449, 3263929, 0975858, 3369355 ####Please refer to Result Comment for Performing Lab Location Erythrocytes (RBC) empty Normal NONE SEEN [facility] Comment on above: Order Comment: Order ing Doctor: [place] [address] Performed By: #### 1 936349, 9427461 ####[address] [place], [place] 73025806-991-3384#### 6735227, 2568481, 7195635, 8878327, 9020160, 0836462, 9048061 ####Please refer to Result Comment for Performing Lab Location FINE GRAN empty Normal NONE SEEN [facility] Comment on above: Order Comment: Order ing Doctor: [place] [address] Performed By: #### 1 322290, 3878245 ####[place] [address] [place] [address] [phone]#### 7304407, 4965102, 8908131, 5717285, 0785127, 2415344, 8079621 ####Please refer to Result Comment for Performing Lab Location HYAL CAST empty Normal 0-2 [facility] Comment on above: Order Comment: Order ing Doctor: Jeffrey Salgadoformed by [facility] [place] [address] Performed By: #### 1 860149, 2710026 ####[place] [address] [place], [place] 36253762-120-4294#### 2043780, 6095743, 6696552, 2644854, 6209228, 4011693, 2620550 ####Please refer to Result Comment for Performing Lab Location SPERM PRESENT Normal NONE SEEN [facility] Comment on above: Order Comment: Order ing Doctor: Jeffrey Salgadoformed by [facility] [place] [address] Performed By: #### 1 495501, 4676326 ####[place] [address] [place], [place] [phone]#### 4840408, 8275092, 3943108, 3417948, 7738604, 6245961, 8543755 ####Please refer to Result Comment for Performing Lab Location TRIP PHOS empty Normal NONE SEEN [facility] Comment on above: Order Comment: Order ing Doctor: Jeffrey Salgadoformed by [facility] [address] [place] [address] Performed By: #### 1 996237, 4984705 ####[place] [address] [place], [place] 90067496-901-1023#### 0641273, 8508003, 4637938, 7311948, 1814641, 8394187, 0338712 ####Please refer to Result Comment for Performing Lab Location UCAST NONE SEEN Normal NONE SEEN [facility] Comment on above: Order Comment: Order ing Doctor: Jeffrey Salgadoformed [place] [address] Performed By: #### 1 392993, 9889054 ####[place] [address] [place], [place] 31581303-026-2585#### 8476213, 9274809, 9951007, 2096016, 5730561, 9768194, 9917106 ####Please refer to Result Comment for Performing Lab Location UCRYS NONE SEEN Normal NONE SEEN [facility] Comment on above: Order Comment: Order ing Doctor: Jeffrey Salgadoformed by [facility] [address] [place] [address] Performed By: #### 1 348490, 7531345 ####[place] [address] [place], [place] 87923146-741-4372#### 7006394, 6792489, 8066899, 4698699, 7337166, 9621560, 8119807 ####Please refer to Result Comment for Performing Lab Location UMUC NONE SEEN Normal NONE SEEN [facility] Comment on above: Order Comment: Order ing Doctor: Jeffrey Salgadoformed by [employer] [facility] [address] [place] [address] Performed By: #### 1 006628, 4440213 ####[place] [address] [place], [place] 64056709-893-7466#### 0972139, 9174261, 7803894, 1559503, 9315848, 9559799, 9195368 ####Please refer to Result Comment for Performing Lab Location UOTH empty Normal NONE [facility] Comment on above: Order Comment: Order ing Doctor: [place] [address] Performed By: #### 1 294835, 1815109 ####[address] [place], [place] 55801962-123-3558#### 2847494, 7482854, 1941835, 3374830, 0170996, 0930783, 9864711 ####Please refer to Result Comment for Performing Lab Location Urate empty Normal NONE SEEN [facility] Comment on above: Order Comment: Order ing Doctor: [place] [address] Performed By: #### 1 601681, 1715380 ####[address] 80671751-211-7590#### 0352745, 1330492, 2693126, 4963207, 6814679, 9310981, 1505737 ####Please refer to Result Comment for Performing Lab Location UREPI empty Normal NONE SEEN [facility] Comment on above: Order Comment: Order ing Doctor: Jeffrey Salgadoformed by [facility] [place] [address] Performed By: #### 1 158060, 1244157 ####[address] 82990767-955-3024#### 7617054, 4511340, 4935969, 5039127, 6414012, 3272273, 6805927 ####Please refer to Result Comment for Performing Lab Location Urine, bacteria in sediment 4+ Normal NONE SEEN [facility] Comment on above: Order Comment: Order ing Doctor: Jeffrey Salgadoformed by [facility] [place] [address] Performed By: #### 1 278984, 9748393 ####[place] [address] [place], [place] 65316625-205-2701#### 1465827, 6448787, 0066824, 6850517, 4830274, 2730233, 8308455 ####Please refer to Result Comment for Performing Lab Location Urine, erythrocytes 5-10 Normal NONE SEEN [facility] Comment on above: Order Comment: Order ing Doctor: [place] [address] Performed By: #### 1 720505, 8903968 ####[place] [address] [place], [place] [phone]#### 6080189, 0186555, 2848327, 6928830, 1915396, 9003185, 3955757 ####Please refer to Result Comment for Performing Lab Location Urine, leukocytes 5-10 Normal 0-5 [facility] Comment on above: Order Comment: Order ing Doctor: [place] [address] Performed By: #### 1 104144, 4958324 ####[place] [address] [place], [place] [phone]#### 9235450, 4126450, 0259139, 3682424, 0781257, 1737777, 2668532 ####Please refer to Result Comment for Performing Lab Location Urine, yeast presence in sediment empty Normal NONE SEEN [facility] Comment on above: Order Comment: Order ing Doctor: [place] [address] Performed By: #### 1 520736, 2228302 ####[place] [address] [place], [place] 93933922-374-1483#### 7139259, 8492408, 3215939, 4818575, 4870681, 6071542, 5041824 ####Please refer to Result Comment for Performing Lab Location USEPI 25-50 Normal NONE SEEN [facility] Comment on above: Order Comment: Order ing Doctor: Jeffrey Salgadoformed by [facility] [address] [place] [address] Performed By: #### 1 032963, 8962089 ####[place] [address] [place], [place] 91117221-802-8432#### 2651640, 0522030, 2537003, 4096286, 5686211, 9036686, 8794303 ####Please refer to Result Comment for Performing Lab Location UTEPI empty Normal NONE SEEN [facility] Comment on above: Order Comment: Order ing Doctor: [place] [address] Performed By: #### 1 526461, 3045685 ####[place] [address] [place], [place] [phone]#### 0672240, 3606303, 4164077, 5033463, 2050409, 7819894, 7949401 ####Please refer to Result Comment for Performing Lab Location WAXY CASTS empty Normal NONE SEEN [facility] Comment on above: Order Comment: Order ing Doctor: [place] [address] Performed By: #### 1 591161, 0178307 ####[place] [address] [place], [place] 95971061-490-9853#### 4544332, 3711130, 4606057, 5785227, 7453517, 8011223, 1709632 ####Please refer to Result Comment for Performing Lab Location WBC (Leukocytes) empty Normal NONE SEEN [facility] Comment on above: Order Comment: Order ing Doctor: [place] [address] Performed By: #### 1 987746, 9295051 ####[place] [address] [place], [place] [phone]#### 4179533, 4909144, 8356514, 0271754, 3598876, 1889708, 2732528 ####Please refer to Result Comment for Performing Lab Location Chlamydia trachomatis Neisse shasha gonorrhoeae by Ampon 11-22-2017 C. TRACHOMATIS RT-PCR NOT DETECTED Normal [facility] Comment on above: Order Comment: Order ing Doctor: [place] [address] Result Comment: No C hlamydia trachomatis detected by Real Time - PolymeraseChain Reaction. This testing method is contraindicatedduring antibiotic therapy.This test is intended for medical purposes only and is notvalid for the evaluation of suspected sexual abuse or for otherforensic purposes. In certain contexts, cultures maybe requiredto meet applicable laws and regulations for the diagnosis ofC. trachomatis infections. Performed By: #### 1 867906, 9014952 ####[place] [address] [place] [address] [phone]#### 2529878, 0535188, 6059621, 0969291, 2525601, 1470941, 5594219 ####Please refer to Result Comment for Performing Lab Location N. GONORRHOEAE RT-PCR NOT DETECTED Normal [facility] Comment on above: Order Comment: Order ing Doctor: Jeffrey Salgadoformed by [address] Result Comment: No N eissera gonorrhoeae detected by Real Time - PolymeraseChain Reaction. This testing method is contraindicatedduring antibiotic therapy.This test is intended for medical purposes only and is notvalid for the evaluation of suspected sexual abuse or for otherforensic purposes. In certain contexts, cultures maybe requiredto meet applicable laws and regulations for the diagnosis ofN. gonorrhoeae infections. Performed By: #### 1 288919, 2068122 ####[place] [address] [place], [place] 54818227-729-0985#### 6992227, 3603639, 2707116, 2511199, 6569632, 6620318, 2043879 ####Please refer to Result Comment for Performing Lab Location SOURCE URINE Normal [facility] Comment on above: Order Comment: Order ing Doctor: Jeffrey Salgadoformed [place] [address] Performed By: #### 1 945187, 8459020 ####[place] [address] [place], [place] [phone]#### 8361708, 2973179, 0661155, 1998922, 7840130, 8517453, 0566987 ####Please refer to Result Comment for Performing Lab Location Auto Differentialon 11-16-19 18 Basophils/100 WBC Auto (Bld) 1.0 % Normal 0.0-3.0 [facility] Comment on above: Order Comment: Order ing Doctor: Jeffrey Salgadoformed [place] [address] Performed By: #### 1 800266, 3155773 ####[place] [address] [place], [place] [phone]#### 8367180, 5705907, 5341865, 7718137, 7618813, 4244375, 7959387 ####Please refer to Result Comment for Performing Lab Location Eosinophils/100 leukocytes 1.1 % Normal 0.0-4.0 [facility] Comment on above: Order Comment: Order ing Doctor: Jeffrey Salgadoformed [place] [address] Performed By: #### 1 905469, 6076010 ####[place] [address] [place], [place] 48666796-990-8124#### 6146121, 8846910, 2324529, 7321663, 5950416, 1909482, 9238873 ####Please refer to Result Comment for Performing Lab Location Lymphocytes/100 leukocytes 22.5 % Normal 20.5-51.1 [facility] Comment on above: Order Comment: Order ing Doctor: [place] [address] Performed By: #### 1 499889, 4703159 ####[place] [address] [place], [place] 98303180-401-9950#### 8822859, 3945943, 1692484, 9125212, 5673130, 5381806, 7779665 ####Please refer to Result Comment for Performing Lab Location Monocytes/100 leukocytes 7.4 % Normal 0.0-13.0 [facility] Comment on above: Order Comment: Order ing Doctor: [place] [address] Performed By: #### 1 504570, 8253722 ####[place] [address] [place], [place] 21628105-083-4660#### 9224168, 5353026, 2796160, 0170159, 6309692, 7664647, 6393570 ####Please refer to Result Comment for Performing Lab Location SCAN NO Normal NO [facility] Comment on above: Order Comment: Order ing Doctor: [place] [address] Performed By: #### 1 660239, 1920778 ####[place] [address] [place], [place] 61345566-487-6924#### 6601763, 5788131, 2277229, 8171131, 5263639, 2728066, 3939683 ####Please refer to Result Comment for Performing Lab Location Segmented Neutrophils/100 leukocytes 68.0 % Normal 42.2-75.2 [facility] Comment on above: Order Comment: Order ing Doctor: [place] [address] Performed By: #### 1 834594, 6772599 ####[place] [address] [place], [place] 50633238-127-3291#### 7623960, 4250581, 1679825, 5078745, 7885207, 6756479, 3974385 ####Please refer to Result Comment for Performing Lab Location Complete Blood Counton 11-15 Erythrocyte distribution width Auto Ratio (RBC) 14.0 % Normal 11.5-14.5 [facility] Comment on above: Order Comment: Order ing Doctor: [place] [address] Performed By: #### 1 976354, 5497717 ####[place] [address] [place], [place] 50391626-310-5110#### 6535876, 4446171, 1536054, 6043647, 2671884, 5933248, 6466048 ####Please refer to Result Comment for Performing Lab Location Erythrocytes (RBC) 5.19 mil/cumm Normal 4.20-5.40 [facility] Comment on above: Order Comment: Order ing Doctor: [place] [address] Performed By: #### 1 614007, 4921444 ####[place] [address] [place], [place] 39774784-277-8558#### 2694499, 4116688, 1053377, 1474641, 4606239, 2228194, 8119695 ####Please refer to Result Comment for Performing Lab Location Hematocrit (HCT) 42.1 % Normal 37.0-47.0 [facility] Comment on above: Order Comment: Order ing Doctor: [place] [address] Performed By: #### 1 091265, 7539086 ####[place] [address] [place] [address] 80754875-866-4547#### 3711647, 5603240, 8039322, 1478821, 5613443, 2569780, 9401209 ####Please refer to Result Comment for Performing Lab Location Hemoglobin mass conc (Bld) 13.7 g/dL Normal 12.0-16.0 [facility] Comment on above: Order Comment: Order ing Doctor: Jeffrey Salgadoformed [place] [address] Performed By: #### 1 862383, 7777435 ####[place] [address] [place], [place] 27857052-762-0096#### 5484735, 1336150, 6415143, 1691159, 2926761, 2481270, 7118264 ####Please refer to Result Comment for Performing Lab Location MCH 26.3 pg Low 28.0-32.0 [facility] Comment on above: Order Comment: Order ing Doctor: [place] [address] Performed By: #### 1 773633, 1589963 ####[place] [address] [place] [address] [phone]#### 9010907, 9143199, 0323884, 6383239, 2708813, 9681622, 2574010 ####Please refer to Result Comment for Performing Lab Location MCHC mass conc (RBC) 32.5 g/dL Low 33.0-37.0 [facility] Comment on above: Order Comment: Order ing Doctor: Jeffrey Salgadoformed [place] [address] Performed By: #### 1 168620, 9099012 ####[place] [address] [place] [address] [phone]#### 5097707, 0203256, 1155000, 9937948, 8404418, 5675051, 1402970 ####Please refer to Result Comment for Performing Lab Location MCV 81.0 fL Normal 81.0-99.0 [facility] Comment on above: Order Comment: Order ing Doctor: Jeffrey Salgadoformed [place] [address] Performed By: #### 1 958713, 2923253 ####[place] [address] [place], [place] 31502798-816-8617#### 2267607, 6390757, 9989083, 9822455, 6720670, 2950640, 6844838 ####Please refer to Result Comment for Performing Lab Location Platelets 400 thou/cumm Normal 130-400 [facility] Comment on above: Order Comment: Order ing Doctor: Jeffrey Salgadoformed by [facility] [address] Performed By: #### 1 767392, 0453738 ####[place] [address] [place], [place] 94280579-535-9009#### 7915392, 9401767, 2427366, 3344930, 6138819, 0044494, 8563269 ####Please refer to Result Comment for Performing Lab Location WBC (Leukocytes) 12.8 thou/cumm High 4.8-10.8 [facility] Comment on above: Order Comment: Order ing Doctor: Jeffrey Salgadoformed [place] [address] Performed By: #### 1 414180, 8711101 ####[place] [address] [place], [place] 01807235-272-5237#### 3271793, 6582033, 5145920, 2756476, 9044054, 9278471, 3651470 ####Please refer to Result Comment for Performing Lab Location Quantitative BHCGon 16-20 18 [place] [address].0 m[IU]/mL High 0.0-5.0 [facility] Comment on above: Order Comment: Order ing Doctor: Jeffrey Salgadoformed by [facility] [address], [place] Result Comment: VIANNEY TITATIVE BHCG Gestational Age hCG mIU/mL 0.2 - 1 week 5 - 50 1 -2 weeks 50 - 500 2 - 3 weeks 100 - 5,000 3 - 4 weeks 500 - 10,000 4 - 5 weeks 1,000 - 50,000 5 - 6 weeks 10,000 - 100,000 6 - 8 weeks 15,000 - 200,000 2 - 3 months 10,000 - 100,000 Females non 0 - 5 mIU/mL Performed By: #### 1 785544, 1796102 ####[place] [address] [place], [place] 59971051-594-9262#### 2414528, 5417019, 7512021, 8906110, 2740083, 0772589, 8174659 ####Please refer to Result Comment for Performing Lab Location Type and Screenon 11-15-2017 ABO O Normal [facility] Comment on above: Order Comment: Order ing Doctor: Jeffrey Salgadoformed by [facility] [address] [place] [address] Performed By: #### 1 581480, 2343831 ####[place] [address] [place], [place] 68882132-451-2532#### 1817003, 2334834, 6148084, 1880459, 9749881, 9083215, 8159813 ####Please refer to Result Comment for Performing Lab Location ABS Negative Normal NEGATIVE [facility] Comment on above: Order Comment: Order ing Doctor: Jeffrey Salgadoformed by [facility] [address] [place], [place] [address] Performed By: #### 1 065370, 7420444 ####[place] [address] [place], [place] 83720613-875-0539#### 7816474, 8710787, 0949665, 1516697, 2730181, 2367496, 6579048 ####Please refer to Result Comment for Performing Lab Location Rh type Positive Normal [facility] Comment on above: Order Comment: Order ing Doctor: Jeffrey Salgadoformed by [facility] [address] [place], [place] [address] Performed By: #### 1 516638, 3196695 ####[address] [place], [place] 13306429-261-2115#### 7005559, 7578081, 4591909, 1866069, 1806738, 4988265, 5007117 ####Please refer to Result Comment for Performing Lab Location TTS COMPLETED [facility] Comment on above: Order Comment: Order ing Doctor: Jeffrey Salgadoformed by [address] Performed By: #### 1 217406, 0838935 ####[place] [address] [place], [place] [phone]#### 5750920, 4955241, 9083849, 6735321, 8583984, 9119265, 2550712 ####Please refer to Result Comment for Performing Lab Location TTSEXP 11/18/2017 [facility] Comment on above: Order Comment: Order ing Doctor: Jeffrey Salgadoformed by [address] Result Comment: Resu lt amended from (11/22/17) (11/15/2017 20:13) to (11/18/2017) by AN. Performed By: #### 1 377298, 5270637 ####[place] [address] [place], [place] 44451854-122-2106#### 6444358, 1088200, 3663036, 7567973, 7567358, 9637593, 0360455 ####Please refer to Result Comment for Performing Lab Location US-TRANSVAGINAL (OB)on 11-15 US-TRANSVAGINAL (OB) PROCEDURE: ULS - US-TRANSVAGINAL (OB) ([id number])Relevant History: bleedingRESULT: Patient Name: KAYLEEN PETEPatient : 1995Examination: US-TRANSVAGINAL (OB)Date of Exam: 11/15/2017 7:16 PMOrdering Provider: YO COLEMANomparison: NoneRelevant Clinical Information: bleeding.TECHNIQUE: grayscale sonographic imaging was performed.DISCUSSION:E ndometrial canal: Single intrauterine .Gestational sac: UnremarkableYolk sac: Yolk sac is present.Placenta and amniotic fluid: Gestational age is too early for theevaluation of the placenta. Amniotic fluid is grossly normal. Nosubchorionic hemorrhage apparent.Uterus: Homogeneous with no evidence of leiomyomata.Maternal cervix: Closed, Pole:Anatomy: Embryonic/ anatomy is appropriate for the firsttrimester. heart rate: 162 bpm.[place] rump length: 27.5 mm.Gestational age: 9 weeks and 6 days.EDC: 06/14/2018.Ovaries and adenxa: Unremarkable bilateral ovaries.Cul de sac: There is no significant free fluid visualizedIMPRESSION:L dali IUP with no abnormality demonstrated.Professio nal Interpretation by RadiologyElectronicall y SignedBy: Hector Nguyễn MDOn: 11/15/2017 7:27 PMTechnologist Initials: AMCExam Completion Time: Nov 15 2017 7:16PMTranscribed By: DENITA Nov 15 2017 7:28PReading Physician: HECTOR NGUYỄN M.D.Electronically Signed by: HECTOR NGUYỄN M.D. on: Nov 15 2017 7:28P Normal [facility] Comment on above: Order Comment: Order ing Doctor: Jeffrey Salgadoformed by [employer] [address] [place], [place] [id number] Test, Urineon 10-02 UPREG Positive Normal [facility] Comment on above: Order Comment: Order ing Doctor: Jeffrey Salgadoformed by [employer] [address] [place], [place] [id number] Performed By: #### 1 611069, 6262656 ####[place] [address] [place], [place] 81644689-866-1901#### 9154898, 4140887, 1461448, 6821017, 2441987, 8994934, 8544496 ####Please refer to Result Comment for Performing Lab Location MRI SPINE/CERVICAL W/O CONTR Valery 10-19-2017 MRI SPINE/CERVICAL W/O CONTRAST PROCEDURE: MRI - MRI SPINE/CERVICAL W/O CONTRAST ([id number])Relevant History: strain neck muscles, initial encounterRESULT: Patient Name: KAYLEEN Mejias : 1995Examination: MRI SPINE/CERVICAL W/O CONTRASTDate of Exam: 10/19/2017 4:20 PMOrdering Provider: YO GASTELUMomparison: Plain radiographs dated 02/26/2016Relevant Clinical Information: strain neck muscles, initial encounterCONTRAST: None.TECHNIQUE: MRI imaging of the cervical spine without intravenouscontrast. Multiplanar, multisequence MR images were obtained.DISCUSSION:Marcello cynthia: Vertebral body height is preserved throughout the cervicalspine. No acute bony abnormality identified.Alignment: There is reversal of the normal cervical lordosis.Alignment is otherwise anatomic. There is mild disc space narrowing atC5-C6, C7-T1, T1-T2 levels. Findings are compatible with milddegenerative change.Spinal cord: Unremarkable.Soft tissues: There are several lymph nodes in the anterior cervicalchain. The largest lymph node on the left side measures 1.3 cm inshort axis. Largest lymph node on the right side measures 1.5 cm inshort axis. Additional smaller lymph nodes are seen as well. Findingsare nonspecific and may represent reactive change associated with aninflammatory or infectious process. Neoplastic process is notexcluded. Correlate clinically.C2-C3: Disc space height is preserved. No central canal stenosis. Noneural foraminal narrowing.C3-C4: Disc space height is preserved. No central canal stenosis. Noneural foraminal narrowing.C4-C5: Disc space height is preserved. No central canal stenosis. Noneural foraminal narrowing.C5-C6: Disc space height is preserved. No central canal stenosis. Noneural foraminal narrowing.C6-C7: Disc space height is preserved. No central canal stenosis. Noneural foraminal narrowing.C7-T1: Disc space height is preserved. No central canal stenosis. Noneural foraminal narrowing.IMPRESSION:1 . Mild reversal of the normal cervical lordosis. No acute bonyabnormality identified2. Minimal degenerative change. No significant spinal canal or neuralforaminal stenosis.3. Bilateral cervical adenopathy. The findings are nonspecific andcould be related to an inflammatory or infectious process. Neoplasticprocess is not excluded. Correlate clinically.Professiona l Interpretation by RadiologyElectronicall y SignedBy: Russ Cowan MDOn: 10/19/2017 6:59 PMTechnologist Initials: [email or web address] Completion Time: Oct 19 2017 4:20PMTranscribed By: DENITA Oct 19 2017 7:00PReading Physician: RUSS COWAN M.D.Electronically Signed by: RUSS COWAN M.D. on: Oct 19 2017 7:00P Normal [facility] Comment on above: Order Comment: Order ing Doctor: Timoteo Salgado MRI SPINE/LUMBAR W/O CONTRAS Ton 10-19-2017 MRI SPINE/LUMBAR W/O CONTRAST PROCEDURE: MRI - MRI SPINE/LUMBAR W/O CONTRAST ([id number])Relevant History: strain lumbar region initial encounterRESULT: Patient Name: KAYLEEN PETEPatient : 1995Examination: MRI SPINE/LUMBAR W/O CONTRASTDate of Exam: 10/19/2017 4:20 PMOrdering Provider: YO GASTELUMomparison: NoneRelevant Clinical Information: strain lumbar region initial encounterCONTRAST: None.TECHNIQUE: MRI imaging of the lumbar spine without intravenouscontrast. Multiplanar, multisequence MR images were obtained.DISCUSSION:Marcello cynthia: Vertebral body height is preserved throughout the lumbar spine.No acute compression fracture identified. No acute bony abnormalityidentified. Alignment: Mild levoscoliosis of the lumbar spine. Alignment isotherwise anatomic. There is mild disc space narrowing with loss ofdisc signal intensity at the L4-L5 level. There is minimal osteophyteformation. Findings are compatible with disc desiccation anddegenerative disc disease.Spinal cord: Conus medullaris terminates at the L1 level. Conusmedullaris and cauda equina are otherwise unremarkable.Soft tissues: Unremarkable paraspinal soft tissues.T12-L1: No significant spinal canal or foraminal narrowing.L1-L2: No significant spinal canal or foraminal narrowing.L2-L3: No significant spinal canal or foraminal narrowing.L3-L4: No significant spinal canal or foraminal narrowing.L4-L5: There is disc bulge with mild broad-based central bulge orprotrusion. Mild effacement of anterior thecal sac and facet jointhypertrophy. No significant spinal canal stenosis. No significantforaminal stenosis. L5-S1: Mild disc bulge. Mild facet hypertrophy.No significant central canal or neural foraminal stenosis.Included sacrum: Unremarkable visualized portions.IMPRESSION:1. Mild disc desiccation and degenerative disc disease at the L4-P3wpzdo4. Disc bulge at the L4-L5 level with mild broad-based central bulgeor protrusion. Mild effacement of anterior thecal sac and facethypertrophy. No significant stenosis.3. Mild levoscoliosis of the lumbar spine.Professional Interpretation by RadiologyElectronicall y SignedBy: Russ Cowan MDOn: 10/19/2017 6:59 PMTechnologist Initials: [email or web address] Completion Time: Oct 19 2017 4:20PMTranscribed By: DENITA Oct 19 2017 7:00PReading Physician: RUSS COWAN M.D.Electronically Signed by: RUSS COWAN M.D. on: Oct 19 2017 7:00P [facility] Comment on above: Order Comment: Order ing Doctor: Timoteo Salgado CHEST PA AND LATERALon 08-15 CHEST PA AND LATERAL PROCEDURE: XRA - CH EST PA AND LATERAL ([id number])Relevant History: FeverRESULT: Patient Name: KAYLEEN PETEPatient : 1995Examination: CHEST PA AND LATERALDate of Exam: 08/15/2017 8:51 AMOrdering Provider: DONNELL ELLIS, DOComparison: 08/27/2016Relevant Clinical Information: Flulike symptoms, fever, shortness ofbreath, chest pain, smokerNUMBER OF VIEWS: Two viewsDISCUSSION: The heart is normal in size and configuration. Themediastinum appears normal. No pulmonary infiltrations or masses arepresent. The pulmonary vasculature appears normal. The thoracicskeleton appears unremarkable.IMPRESSIO N:No acute cardiopulmonary disease.Electronically SignedBy: Tavares Flores MDOn: 08/15/2017 8:54 AMTechnologist Initials: [email or web address] [id number] Completion Time: Aug 15 2017 8:51AMTranscribed By: DENITA Aug 15 2017 8:55AReading Physician: TAVARES FLORES M.D.Electronically Signed by: TAVARES FLORES M.D. on: Feb 13 2018 8:55A Normal [facility] Comment on above: Order Comment: Order ing Doctor: Timoteo Salgado Culture-Throat/Noseon 2017 THROAT/NOSE CULTURE SEE BELOW Normal [facility] Comment on above: Order Comment: Order ing Doctor: Timoteo Salgado Result Comment: Sour ce: throatSite:Collected: 08/15/17 08:40Current Antibiotics: not statedAntibiotics comment: STATUS OF ORDERED AND REPORTED TESTSTHROAT/NOSE CULTURE FINAL 08/17/17THROAT/NOSE CULTURE FINAL 08/17/17 08: Normal tobias- tzvogzatosi87/15/18 Normal tobias Performed By: #### 1 058763, 1463127 ####[place] [address] [place], [place] 93300036-019-2778#### 0590260, 8732632, 3718252, 8522923, 2245904, 7592809, 1829218 ####Please refer to Result Comment for Performing Lab Location Group A Rapid Strepon 2017 SS Negative Normal NEGATIVE [facility] Comment on above: Order Comment: Order ing Doctor: Timoteo Salgado Performed By: #### 1 979206, 2622890 ####[place] [address] [place], [place] 75039074-474-4107#### 6625180, 5007967, 1643410, 7044630, 2311294, 7392643, 9693608 ####Please refer to Result Comment for Performing Lab Location Culture-Urineon 06-30-2017 Urine culture, bacteria SEE BELOW Normal [facility] Comment on above: Order Comment: Order ing Doctor: Timoteo Salgado Result Comment: Sour ce: urineSite: clean voidCollected: 06/30/17 12:34Current Antibiotics: noneAntibiotics comment: STATUS OF ORDERED AND REPORTED TESTSURINE CULTURE FINAL 07/02/17URINE CULTURE FINAL 07/02/17 06:51 Organism 01 Escherichia coli [place] count: >100,000 CFU/mL Organism 01-esccolAntibiotic EHSAN Intrp KB BP Intrp *Adult dosage Pk bldlevel Pk urine lev. Ceftriaxone <=1 S IV 1000mg 150 995Gentamicin <=1 S IV 1.7mg/kg q 8 h 5-7 >=100Tetracycline <=1 S PO 250mg 2-4 100Cefoxitin <=4 S IV 1000mg 110Nitrofurantoin <=16 S PO 100mg <1.0 15-46Ciprofloxacin 0.01 S PO 750 mg q 12 h 3.6 IV 400 mg q 12 h 4.6Trimethoprim/Matthews <=20 S HZ708olCMF/800mgSMX q 62v7-3VHU/72-02P38-34EWD/97SM IV 160mgTMP/800mgSMX q 8 h9TMP/105SMXCefuroxime I IV 1500mg 100 2500 S=Susceptible I=Intermediate R=Resistant Susceptibility is determined bycomparing the EHSAN of organism to the achievableblood or urine level of drug. Level at the site of infection should be aminimum of 5-10 times the EHSAN. MIC and blood and urine levels=mcg/ml.*Standard dosages from Pichardo Guide toAntimicrobial Therapy and assumes moderateinfection in normal adult populations. For pts. with renal or liver diseaseconsult PDR or pharmacist. Performed By: #### 1 290342, 8027698 ####[place] [address] [place], [place] [phone]#### 5647465, 8492132, 5360460, 7977682, 9695210, 4281220, 8002818 ####Please refer to Result Comment for Performing Lab Location Test, Urineon 06-03 UPREG Negative Normal [facility] Comment on above: Order Comment: Order ing Doctor: Timoteo Salgado Performed By: #### 1 960828, 2955367 ####[place] [address] [place], [place] 73746763-663-4294#### 7152775, 1662483, 6956922, 2577651, 0148741, 7481985, 1544592 ####Please refer to Result Comment for Performing Lab Location [id number] Cancelled by Lab Normal [facility] Comment on above: Result Comment: CANC ELLED Performed By: #### 1 788204, 8941461 ####[place] [address] [place], [place] 27417692-858-6022#### 6454477, 8207268, 0893990, 7654884, 2588672, 9526485, 5455548 ####Please refer to Result Comment for Performing Lab Location Urinalysis w/Reflex C and So n 06-30-2017 SG 1.015 Normal 1.010-1.025 [facility] Comment on above: Order Comment: Order ing Doctor: Timoteo Salgado Performed By: #### 1 700386, 2298348 ####[place] [address] [place], [place] 57874748-452-5422#### 2152730, 9519538, 1504602, 7278730, 8883153, 7068112, 0345364 ####Please refer to Result Comment for Performing Lab Location UABLD LARGE Normal NEGATIVE [facility] Comment on above: Order Comment: Order ing Doctor: Timoteo Salgado Performed By: #### 1 016056, 1744532 ####[place] [address] [place], [place] 20370373-637-8949#### 3033715, 4742668, 2898125, 2430865, 9927058, 9906007, 9444756 ####Please refer to Result Comment for Performing Lab Location UAGLU Negative Normal NEGATIVE [facility] Comment on above: Order Comment: Order ing Doctor: Timoteo Salgado Performed By: #### 1 570979, 2413122 ####[place] [address] [place], [place] 72344035-130-9220#### 6405044, 6364221, 1297403, 8930807, 2110424, 5146371, 9121857 ####Please refer to Result Comment for Performing Lab Location UAKET 15 mg/dL Normal NEGATIVE [facility] Comment on above: Order Comment: Order ing Doctor: Timoteo Salgado Performed By: #### 1 036548, 6222964 ####[place] [address] [place], [place] 99274669-687-2811#### 9335187, 5175235, 6834230, 9269872, 1982817, 3161439, 1474879 ####Please refer to Result Comment for Performing Lab Location UALEUK MODERATE Normal NEGATIVE [facility] Comment on above: Order Comment: Order ing Doctor: Timoteo Salgado Performed By: #### 1 114283, 2042365 ####[place] [address] [place], [place] 47008970-418-5472#### 8384078, 7976268, 1826939, 4802185, 3244770, 7718672, 2367427 ####Please refer to Result Comment for Performing Lab Location UANIT Positive Normal NEGATIVE [facility] Comment on above: Order Comment: Order ing Doctor: Timoteo Salgado Performed By: #### 1 647099, 9427069 ####[place] [address] [place], [place] 98674020-592-4646#### 1185174, 7844842, 8210167, 9458617, 4346275, 7216239, 7151066 ####Please refer to Result Comment for Performing Lab Location UAPH 7.0 Normal 5.0-8.0 [facility] Comment on above: Order Comment: Order ing Doctor: Timoteo Salgado Performed By: #### 1 501754, 5808432 ####[place] [address] [place], [place] 50721070-907-5474#### 4878802, 7340745, 0567123, 2703602, 9844553, 9361027, 5880266 ####Please refer to Result Comment for Performing Lab Location UAPRO >=300 Normal NEGATIVE [facility] Comment on above: Order Comment: Order ing Doctor: Timoteo Salgado Performed By: #### 1 632408, 7167930 ####[place] [address] [place], [place] 51965602-421-0649#### 8414018, 4194980, 8387291, 2481215, 2766018, 1862623, 8190897 ####Please refer to Result Comment for Performing Lab Location UAURO 4.0 E.U./dL Normal 0.2-1.0 [facility] Comment on above: Order Comment: Order ing Doctor: Timoteo Salgado Performed By: #### 1 348996, 5301378 ####[place] [address] [place], [place] 55888903-739-7627#### 6171411, 9591726, 8919648, 1110926, 0008144, 1789569, 9618169 ####Please refer to Result Comment for Performing Lab Location UCLAR TURBID Normal CLEAR [facility] Comment on above: Order Comment: Order ing Doctor: Timoteo Salgado Performed By: #### 1 773441, 3801506 ####[place] [address] [place], [place] 34937290-179-8735#### 8484598, 4336354, 2113108, 0187034, 2290166, 3776811, 4063916 ####Please refer to Result Comment for Performing Lab Location UMIC YES Normal NO [facility] Comment on above: Order Comment: Order ing Doctor: Timoteo Salgado Performed By: #### 1 486549, 2767319 ####[place] [address] [place], [place] 50956464-119-6598#### 9030601, 4537327, 7126826, 5748557, 8917138, 2519730, 5063320 ####Please refer to Result Comment for Performing Lab Location Urine, color BROWN Normal YELLOW [facility] Comment on above: Order Comment: Order ing Doctor: Timoteo Salgado Performed By: #### 1 924664, 9560015 ####[place] [address] [place], [place] 34512686-188-9272#### 5503332, 6404275, 8357213, 2022146, 2837526, 1793059, 4072201 ####Please refer to Result Comment for Performing Lab Location Urine, urobilinogen LARGE Normal NEGATIVE [facility] Comment on above: Order Comment: Order ing Doctor: Timoteo Salgado Performed By: #### 1 730666, 0120703 ####[place] [address] [place], [place] 15229430-630-4298#### 4077418, 9509835, 3892951, 8858257, 3924419, 4074816, 9824371 ####Please refer to Result Comment for Performing Lab Location [id number] Cancelled by Lab Normal [facility] Comment on above: Result Comment: CANC ELLED Performed By: #### 1 964386, 6859604 ####[place] [address] [place], [place] 39309596-511-6314 Urinalysis-Microscopic Refle x C AND Son 06-30-2017 JAMSHID empty Normal NONE SEEN [facility] Comment on above: Order Comment: Order ing Doctor: Timoteo Salgado Performed By: #### 1 693051, 6930153 ####[place] [address] [place], [place] 62827034-341-0000#### 7084889, 7507352, 7279397, 4642403, 9475313, 0952443, 0906116 ####Please refer to Result Comment for Performing Lab Location AMORPH empty Normal NONE SEEN [facility] Comment on above: Order Comment: Order ing Doctor: Timoteo Salgado Performed By: #### 1 608333, 1290695 ####[place] [address] [place], [place] 11426932-462-0962#### 6635385, 3354450, 8097423, 0587202, 8241913, 5195624, 3755023 ####Please refer to Result Comment for Performing Lab Location CALC OX empty Normal NONE SEEN [facility] Comment on above: Order Comment: Order ing Doctor: Timoteo Salgado Performed By: #### 1 353976, 8037373 ####[place] [address] [place], [place] 62983787-470-3207#### 2213371, 4820951, 7017187, 7511505, 0587948, 1288092, 3004317 ####Please refer to Result Comment for Performing Lab Location Cholesterol empty Normal NONE SEEN [facility] Comment on above: Order Comment: Order ing Doctor: Timoteo Salgado Performed By: #### 1 802760, 0751244 ####[place] [address] [place], [place] 37135039-484-6259#### 3666866, 3400844, 2324117, 3380659, 5058477, 9212271, 7627042 ####Please refer to Result Comment for Performing Lab Location COARSE GRAN empty Normal NONE SEEN [facility] Comment on above: Order Comment: Order ing Doctor: Timoteo Salgado Performed By: #### 1 985516, 6974235 ####[place] [address] [place], [place] 31984432-929-2561#### 9227799, 2005858, 7499290, 8611868, 9008071, 5861397, 8331053 ####Please refer to Result Comment for Performing Lab Location CTSIND YES Normal NO [facility] Comment on above: Order Comment: Order ing Doctor: Timoteo Salgado Performed By: #### 1 385562, 4102176 ####[address] [place], [place] 64719373-666-4689#### 7118996, 0936122, 1111665, 8056437, 5108853, 9806291, 8131181 ####Please refer to Result Comment for Performing Lab Location Erythrocytes (RBC) empty Normal NONE SEEN [facility] Comment on above: Order Comment: Order ing Doctor: Timoteo Salgado Performed By: #### 1 811279, 7233831 ####[address] 07895153-338-0624#### 0556279, 6064806, 2621666, 2938839, 6626428, 7013284, 6595231 ####Please refer to Result Comment for Performing Lab Location FINE GRAN empty Normal NONE SEEN [facility] Comment on above: Order Comment: Order ing Doctor: Timoteo Salgado Performed By: #### 1 542154, 7016976 ####[place] [address] [place], [place] 71811882-803-2597#### 2461272, 1970317, 7556311, 6238996, 4904339, 2314868, 3845673 ####Please refer to Result Comment for Performing Lab Location HYAL CAST empty Normal 0-2 [facility] Comment on above: Order Comment: Order ing Doctor: Timoteo Salgado Performed By: #### 1 963090, 3045783 ####[place] [address] [place], [place] 66171811-904-7128#### 5320317, 7482111, 2306141, 5952290, 9611893, 3091744, 8340138 ####Please refer to Result Comment for Performing Lab Location SPERM empty Normal NONE SEEN [facility] Comment on above: Order Comment: Order ing Doctor: Timoteo Salgado Performed By: #### 1 774251, 0901789 ####[place] [address] [place], [place] 57400516-084-7869#### 6321194, 1068297, 0897994, 1294547, 4533987, 3080806, 9982431 ####Please refer to Result Comment for Performing Lab Location TRIP PHOS empty Normal NONE SEEN [facility] Comment on above: Order Comment: Order ing Doctor: Timoteo Salgado Performed By: #### 1 434110, 6991262 ####[place] [address] [place], [place] 46825185-977-5404#### 0035525, 6080291, 3159908, 7023667, 6815739, 5137463, 1851238 ####Please refer to Result Comment for Performing Lab Location UCAST NONE SEEN Normal NONE SEEN [facility] Comment on above: Order Comment: Order ing Doctor: Timoteo Salgado Performed By: #### 1 104886, 0027240 ####[place] [address] [place], [place] 89856007-787-8389#### 1627134, 6925800, 5511804, 8384464, 5327064, 5809886, 4770346 ####Please refer to Result Comment for Performing Lab Location UCRYS NONE SEEN Normal NONE SEEN [facility] Comment on above: Order Comment: Order ing Doctor: Timoteo Salgado Performed By: #### 1 685369, 5013894 ####[place] [address] [place], [place] 61869969-489-5547#### 9455461, 8510742, 3832027, 8168237, 8065796, 9202792, 0694853 ####Please refer to Result Comment for Performing Lab Location UMUC NONE SEEN Normal NONE SEEN [facility] Comment on above: Order Comment: Order ing Doctor: Timoteo Salgado Performed By: #### 1 313448, 6195752 ####[place] [address] [place], [place] 17172208-906-7246#### 1241811, 8952642, 8350166, 9254393, 9025717, 8753594, 1303754 ####Please refer to Result Comment for Performing Lab Location UOTH empty Normal NONE [facility] Comment on above: Order Comment: Order ing Doctor: Timoteo Salgado Performed By: #### 1 619501, 1617159 ####[place] [address] [place], [place] 80905547-570-1251#### 9813535, 0327694, 9976584, 7823964, 1334566, 6322743, 2417464 ####Please refer to Result Comment for Performing Lab Location Urate empty Normal NONE SEEN [facility] Comment on above: Order Comment: Order ing Doctor: Timoteo Salgado Performed By: #### 1 788928, 1042317 ####[place] [address] [place], [place] 00636653-138-2599#### 8598550, 6349424, 8482986, 0004539, 3738503, 5704955, 5988745 ####Please refer to Result Comment for Performing Lab Location UREPI empty Normal NONE SEEN [facility] Comment on above: Order Comment: Order ing Doctor: Timoteo Salgado Performed By: #### 1 933441, 8370235 ####[place] [address] [place], [place] 37618839-997-0184#### 0827205, 5555856, 7777062, 7764817, 9321863, 1258939, 5827360 ####Please refer to Result Comment for Performing Lab Location Urine, bacteria in sediment 2+ Normal NONE SEEN [facility] Comment on above: Order Comment: Order ing Doctor: Timoteo Salgado Performed By: #### 1 271842, 7252850 ####[place] [address] [place], [place] 47794963-594-0569#### 8418029, 3641554, 9566697, 7536198, 8202899, 9225030, 6646779 ####Please refer to Result Comment for Performing Lab Location Urine, erythrocytes /uL Normal NONE SEEN [facility] Comment on above: Order Comment: Order ing Doctor: Timoteo Salgado Performed By: #### 1 343194, 6784629 ####[place] [address] [place], [place] 54369876-049-4363#### 9000712, 8045069, 8772990, 0145582, 0822802, 3285084, 2000518 ####Please refer to Result Comment for Performing Lab Location Urine, leukocytes /uL Normal 0-5 [facility] Comment on above: Order Comment: Order [facility] Doctor: Timoteo Salgado Performed By: #### 1 414032, 9256303 ####[place] [address] [place], [place] 45019153-378-2819#### 0806020, 2433039, 8311591, 3997640, 7601936, 8745204, 9964064 ####Please refer to Result Comment for Performing Lab Location Urine, yeast presence in sediment empty Normal NONE SEEN [facility] Comment on above: Order Comment: Order ing Doctor: Timoteo Salgado Performed By: #### 1 [id number], [id number] ####[place] [address], [place] [phone]#### [id number], 3985420, 0421094, 5961564, 2173327, 8217806, 4347980 ####Please refer to Result Comment for Performing Lab Location USEPI NONE SEEN Normal NONE SEEN [facility] Comment on above: Order Comment: Order ing Doctor: Timoteo Salgado Performed By: #### 1 [id number], [id number] ####[place] [address], [place] [phone]#### [id number], 1050801, 1153654, 8012812, 7441070, 2518707, 7556169 ####Please refer to Result Comment for Performing Lab Location UTEPI empty Normal NONE SEEN [facility] Comment on above: Order Comment: Order ing Doctor: Timoteo Salgado Performed By: #### 1 [id number], [id number] ####[place] [address], [place] [phone]#### 4081760, 8953507, 7391229, 7141577, 6013215, 6858356, 1480407 ####Please refer to Result Comment for Performing Lab Location WAXY CASTS empty Normal NONE SEEN [facility] Comment on above: Order Comment: Order ing Doctor: Timoteo Salgado Performed By: #### 1 [id number], 0608459 ####[place] [address], [place] [phone]#### 9348138, 4628765, 6012145, 5030247, 3965286, 2538232, 1064882 ####Please refer to Result Comment for Performing Lab Location WBC (Leukocytes) empty Normal NONE SEEN [facility] Comment on above: Order Comment: Order ing Doctor: Timoteo Salgado Performed By: #### 1 948697, 7016158 ####[place] [address], [place] [phone]#### 2738390, 2625767, 7889341, 9313328, 7623480, 1040785, 5671576 ####Please refer to Result Comment for Performing Lab Location Basic Metabolic Profileon Calcium 9.3 mg/dL Normal 8.4-10.2 [facility] Comment on above: Order Comment: Order ing Doctor: Timoteo Salgado Performed By: #### 1 730965, 1036031 ####[place] [address], [place] [phone]#### 7689245, 5271947, 1583039, 7318738, 0200619, 6946014, 1714196 ####Please refer to Result Comment for Performing Lab Location Chloride 105 mmol/L Normal 98-107 [facility] Comment on above: Order Comment: Order ing Doctor: Timoteo Salgado Performed By: #### 1 835234, 6561790 ####[place] [address] [place], [place] [phone]#### 2616776, 7958278, 3153329, 5205831, 4893515, 9588126, 3919378 ####Please refer to Result Comment for Performing Lab Location CO2 27 mmol/L Normal 22-31 [facility] Comment on above: Order Comment: Order ing Doctor: Timoteo Salgado Performed By: #### 1 299474, [id number] ####[place] [address] [place], [place] [phone]#### 4144892, 7704665, 9263011, 2836008, 3877953, 5331708, 7260473 ####Please refer to Result Comment for Performing Lab Location Creatinine 0.7 mg/dL Normal 0.4-1.1 [facility] Comment on above: Order Comment: Order ing Doctor: Timoteo Salgado Performed By: #### 1 379586, 1890283 ####[place] [address] [place], [place] [phone]#### 6862706, 9396690, 3254903, 8012665, 8452781, 8085609, 2610049 ####Please refer to Result Comment for Performing Lab Location eGFR (non-black) mL/min/{1.73_m2} Normal [facility] Comment on above: Order Comment: Order ing Doctor: Timoteo Salgado Result Comment: Ana mated Glomerular filtration Rate Reference Ranges: GFR, mL/min/1.73m2 >= 60 Adequate 30 - 59 Moderately decreased GFR 15 - 29 Severely decreased GFR <18 Kidney failure (or dialysis) GFR calculated using abbreviated MDRD formula. MDRD equation not suitable for patients who are under 18, have unstable creatinine concentrations Performed By: #### 1 314047, 7776901 ####[place] [address] [place], [place] [phone]#### 1650852, 8173399, 6583992, 8728325, 3855516, 6611219, 5475993 ####Please refer to Result Comment for Performing Lab Location Glucose mass conc 90 mg/dL Normal 70-100 [facility] Comment on above: Order Comment: Order ing Doctor: Timoteo Salgado Result Comment: [facility] ing glucose reference ranges:Normal fasting glucose: < 100 mg/dL.Impaired fasting glucose: 100-125 mg/dL.Diabetes mellitus criteria: Fasting glucose at or above 126 mg/dL, confirmed on a subsequent day by repeat measurement, or when two different tests (e.g. FBS and HgbA1c) are available and are concordant for diagnosis of diabetes. *based on [place] [employer] recommendations 2012 Performed By: #### 1 394718, 9982353 ####[place] [address] [place], [place] [phone]#### 6001931, 2664435, 7818562, 2423033, 1005588, 1612130, 1021463 ####Please refer to Result Comment for Performing Lab Location Potassium molar conc 4.3 mmol/L Normal 3.5-5.1 [facility] Comment on above: Order Comment: Order ing Doctor: Timoteo Salgado Performed By: #### 1 053415, 4266323 ####[place] [address] [place], [place] 73383557-457-2280#### 9110751, 4989264, 7115501, 2373994, 0101297, 6724840, 2078850 ####Please refer to Result Comment for Performing Lab Location Sodium 140 mmol/L Normal 136-145 [facility] Comment on above: Order Comment: Order ing Doctor: Timoteo Salgado Performed By: #### 1 502258, 7231235 ####[place] [address] [place], [place] [phone]#### 7566873, 3987087, 5466622, 5704886, 9847506, 4955046, 7730621 ####Please refer to Result Comment for Performing Lab Location Urea nitrogen 9 mg/dL Normal 7-22 [facility] Comment on above: Order Comment: Order ing Doctor: Timoteo Salgado Performed By: #### 1 367950, 9368144 ####[place] [address] [place], [place] 81030299-814-0711#### 9365768, 6430190, 4858579, 7022309, 8021225, 8931875, 4178581 ####Please refer to Result Comment for Performing Lab Location Dehydroepiandrosterone Sulfa te, Serumon 02-23-2017 DHEA SULFATE 369 ug/dL Normal 63-373 [facility] Comment on above: Order Comment: Order ing Doctor: Timoteo Salgado Result Comment: REFE RENCE INTERVAL: DHEASAccess complete set of age- and/or gender-specific referenceintervals for this test in the Imaging[facility] Laboratory Test Directory([employer]).Performed by [email or web address],[address] [place] [address] fir.[employer], Kai Bland MD - Lab. Director Performed By: #### 1 551343, 3860926 ####[place] [address] [place], [place] 16855167-028-4474#### 2686260, 9393848, 0805482, 7314241, 9158292, 8330038, 7407565 ####Please refer to Result Comment for Performing Lab Location Estradiolon 02-23-2017 ESTRADIOL 38.2 pg/mL Normal [facility] Comment on above: Order Comment: Order ing Doctor: Jeffrey Salgadoformed by [facility] [address] [place], [place] [id number] Result Comment: Norm ally Menstruating Females Follicular Phase 19 - 247 pg/ml Mid-Cycle 36 - 571 pg/ml Luteal Phase 22 - 256 pg/mlPostmenopausal <7 - 45 pg/mlMales 12 - 41 pg/ml Performed By: #### 1 529388, 3039876 ####[place] [address] [place], [place] 19102153-977-3023#### 9195983, 7379376, 1068783, 4304057, 5795181, 6260875, 8883413 ####Please refer to Result Comment for Performing Lab Location Follicle Stimulating Hormone on 02-23-2017 FSH (FOLLICLE STIMULATING HORMONE) 3.5 mIU/ml Normal 0.6-16.9 [facility] Comment on above: Order Comment: Order ing Doctor: Jeffrey Salgadoformed by [facility] [address] Result Comment: [place] lly Menstruating Female Ranges Follicular Phase 2.5 - 10.2 mIU/ml Mid-Cycle 3.4 - 33.4 mIU/ml Luetal Phase 1.5 - 9.1 mIU/mlPost Menopausal 23.0 - 116.3 mIU/mlMale 1.4 - 18.1 mIU/ml Performed By: #### 1 060911, 6857469 ####[place] [address] [place], [place] 87534767-928-9217#### 0374448, 6663823, 0361248, 6465259, 3404599, 2705490, 9443199 ####Please refer to Result Comment for Performing Lab Location Insulin, Fastingon 7 INSULIN (RANDOM OR FASTING) 45 uIU/mL High 3-19 [facility] Comment on above: Order Comment: Order ing Doctor: Timoteo Salgado Result Comment: INTE RPRETIVE INFORMATION: Insulin, FastingThis test reacts on a nearly equimolar basis with the analogsinsulin aspart, insulin glargine, and insulin lispro. Insulindetemir exhibits approximately 50 percent cross-reactivity. Testreactivity with insulin glulisine is negligible (less than 3percent). To convert to pmol/L, multiply uIU/mL by 6.0.Performed by [email or web address],[address] [place] [address] tgm.[facility] [employer], Kai Bland MD - Lab. Director Performed By: #### 1 137493, 1659540 ####Abimael Guaman [address] [place], [place] 85235142-059-8614#### 6443832, 3338317, 3148392, 2148328, 4565323, 8625451, 2435271 ####Please refer to Result Comment for Performing Lab Location Luteinizing Hormoneon 2016 LH (LUTEINIZING HORMONE) 10.9 mIU/ml Normal 0.6-43.9 [facility] Comment on above: Order Comment: Order ing Doctor: Jeffrey Salgadoformed [place] [address] Result Comment: Norm ally Menstruating Females Follicular Phase 1.9 - 12.5 mIU/ml Mid-Cycle 8.7 - 76.3 mIU/ml Luteal Phase 0.5 - 16.9 mIU/mlPost Menopausal 15.9 - 54.0 mIU/ml <0.1 - 1.5 mIU/mlContraceptives 0.7 - 5.6 mIU/mlFemale 0 - 9 yr <0.1 - 6.0 mIU/mlMale 0 - 9 yr <0.1 - 6.0 mIU/mlMale >10 yr 1.5 - 9.3 mIU/mlMale >70 yr 3.1 - 34.6 mIU/ml Performed By: #### 1 168462, 4298552 ####Abimael Guaman [address] [place], [place] [phone]#### 1820602, 1645199, 9771833, 0933766, 5680686, 7773508, 7046222 ####Please refer to Result Comment for Performing Lab Location Prolactinon 02-23-2017 PROLACTIN 16.0 ng/ml Normal [facility] Comment on above: Order Comment: Order ing Doctor: Jeffrey Salgadoformed by [facility] [address] Result Comment: Fema le Non- 2.8 - 29.2 ng/ml 9.7 - 208.5 ng/ml Post Menopausal 1.8 - 20.3 ng/mlMales 2.1 - 17.7 ng/ml Performed By: #### 1 454654, 3836160 ####[place] [address] [place], [place] 66895567-500-5510#### 7406852, 5858211, 7956865, 7914106, 1765468, 3160159, 5156624 ####Please refer to Result Comment for Performing Lab Location TSH and FT4on 02-23-2017 Thyroid stimulating hormone (TSH) 2.70 uIU/mL Normal 0.49-4.67 [facility] Comment on above: Order Comment: Order ing Doctor: Timoteo Salgado Performed By: #### 1 881134, 3229526 ####[place] [address] [place], [place] 10690739-717-6427#### 1581783, 5548133, 3085676, 2663286, 6885179, 7469035, 9082728 ####Please refer to Result Comment for Performing Lab Location Thyroxine (T4) free 0.81 ng/dL Normal 0.61-1.12 [facility] Comment on above: Order Comment: Order ing Doctor: Timoteo Salgado Performed By: #### 1 941554, 4477201 ####[place] [address] [place], [place] 51224081-065-0508#### 8494560, 3200491, 8364522, 6704057, 2481118, 7245630, 7836026 ####Please refer to Result Comment for Performing Lab Location Testosterone, Females or Chi ldrenon 02-23-2017 TESTOSTERONE, FEMALES/CHILDREN 62 ng/dL High 9-55 [facility] Comment on above: Order Comment: Order ing Doctor: Timoteo Salgado Result Comment: Tota l Testosterone, Females 18 years and older Premenopausal 9-55 ng/dL Postmenopausal 5-32 ng/dLTotal testosterone values may not reflect optimal concentrationsin all individuals. Free or bioavailable testosteronemeasurements may provide supportive information.REFERENCE INTERVAL: Testosterone, LC-MS/MSAccess complete set of age- and/or gender-specific referenceintervals for this test in the [employer] Test Directory([employer]).Test developed and characteristics determined by [employer]. See Compliance Statement B: [employer]/CSPerformed by [email or web address] [place] [address] lbf.[employer], Kai Bland MD - Lab. Director Performed By: #### 1 794114, 8657147 ####[place] [address] [place], [place] 07109873-090-8785#### 4036847, 8028462, 3372297, 2021691, 5373820, 5631601, 9998541 ####Please refer to Result Comment for Performing Lab Location Vital Signs Date Time Vital Sign Value Performing Clinician Facility 07-08-2022 10:47-0500 Body temperature 98.29 [degF] Hebert [employer] Work Phone: [facility] 07-08-2022 10:47-0500 Diastolic blood pressure 80 mm[Hg] Hebert [employer] Work Phone: [facility] 07-08-2022 10:47-0500 Heart rate 98 /min Hebert [employer] Work Phone: [facility] 07-08-2022 10:47-0500 Respiratory rate 17 /min [employer] Work Phone: [facility] 07-08-2022 10:47-0500 SaO2% (BldA) [Mass fraction] 99 % Hebert [employer] Work Phone: [facility] 07-08-2022 10:47-0500 Systolic blood pressure 125 mm[Hg] Hebert [employer] Work Phone: [facility] 07-03-2022 11:26-0500 Body height 175.3 cm Hebert Geovanna DO Work Phone: [facility] 06-26-2022 14:00-0500 Diastolic blood pressure 94 mm[Hg] Levi Vera DO Work Phone: [facility] 06-26-2022 14:00-0500 Systolic blood pressure 151 mm[Hg] Levi Vera [employer] Work Phone: [facility] 06-26-2022 06:15-0500 Body mass index (BMI) [Ratio] 41.35 kg/m2 Hebert Austin DO Work Phone: [facility] 06-26-2022 06:15-0500 Body weight 127.01 kg Hebert Austin [employer] Work Phone: [facility] 06-26-2022 03:30-0500 Heart rate 115 /min Levi Vera [employer] Work Phone: [facility] 06-26-2022 03:30-0500 Respiratory rate 16 /min Levi Vera [employer] Work Phone: [facility] 06-26-2022 03:30-0500 SaO2% (BldA) [Mass fraction] 97 % Levi Vera [employer] Work Phone: [facility] 06-26-2022 00:35-0500 Body height 175.3 cm Levi Vera [employer] Work Phone: [facility] 06-26-2022 00:35-0500 Body mass index (BMI) [Ratio] 43.42 kg/m2 Levi Vera [employer] Work Phone: [facility] 06-26-2022 00:35-0500 Body weight 133.36 kg Levi Vera [employer] Work Phone: [facility] 06-26-2022 00:34-0500 Body temperature 97.81 [degF] Levi Vera [employer] Work Phone: [facility] 11-10-2021 11:06-0400 Blood Pressure Location [facility] 11-10-2021 11:06-0400 Diastolic blood pressure 83 mm[Hg] Franks SALAM [facility] 11-10-2021 11:06-0400 Heart rate 82 /min Franks SALAM [facility] 11-10-2021 11:06-0400 Respiratory rate 16 /min Franks SALAM [facility] 11-10-2021 11:06-0400 Systolic blood pressure 123 mm[Hg] Franks SALAM [facility] 10-26-2019 19:35-0400 BMI (Body Mass Index) 33.97 kg/m2 Dakota Bonds [facility] 10-26-2019 19:35-0400 Body Temperature 98.8 [degF] Dakota [facility] , [place] 10-26-2019 19:35-0400 Body weight 104.33 kg Dakota [employer] [facility] , [place] 10-26-2019 19:35-0400 BP Diastolic 85 mm[Hg] Dakota Cammie [facility] [place] 10-26-2019 19:35-0400 BP Systolic 120 mm[Hg] [employer] [facility] [place] 10-26-2019 19:35-0400 Height 175.3 cm [employer] [facility] , [place] 10-26-2019 19:35-0400 Pulse (Heart Rate) 96 /min [employer] [facility] 10-26-2019 19:35-0400 Pulse Oximetry 98 % [employer] [facility] [place] 10-26-2019 19:35-0400 Respiratory Rate 18 /min [facility], [place] 06-10-2019 20:53-0500 BP Diastolic 82 mm[Hg] [facility] 06-10-2019 20:53-0500 BP Systolic 130 mm[Hg] [facility] 06-10-2019 20:53-0500 Pulse (Heart Rate) 96 /min [facility] 06-10-2019 20:53-0500 Pulse Oximetry 99 % [facility] 06-10-2019 19:57-0500 BMI (Body Mass Index) 26.58 kg/m2 [facility] 06-10-2019 19:57-0500 Body weight 81.65 kg [facility] 06-10-2019 19:57-0500 Height 175.3 cm [facility] 06-10-2019 19:56-0500 Body Temperature 98.4 [degF] [facility] 06-10-2019 19:56-0500 Respiratory Rate 18 /min [facility] 10-22-2018 12:52-0400 BP Diastolic 83 mm[Hg] [facility] 10-22-2018 12:52-0400 BP Systolic 140 mm[Hg] [facility] 10-22-2018 12:50-0400 Pulse (Heart Rate) 124 /min [facility] 10-22-2018 12:50-0400 Respiratory Rate 18 /min [facility] 10-22-2018 00:27-0400 BMI (Body Mass Index) 38.75 kg/m2 [facility] 10-22-2018 00:27-0400 Body weight 112.22 kg [facility] 10-22-2018 00:27-0400 Height 170.2 cm [facility] 10-22-2018 00:26-0400 Body Temperature 99.3 [degF] [facility] 10-08-2018 11:34-0400 BMI (Body Mass Index) 40.25 kg/m2 Sayed Jimbo [facility] 10-08-2018 11:34-0400 Body Temperature 97.3 [degF] [employer] [facility] 10-08-2018 11:34-0400 Body weight 116.57 kg [facility] 10-08-2018 11:34-0400 BP Diastolic 104 mm[Hg] [facility] 10-08-2018 11:34-0400 BP Systolic 150 mm[Hg] [employer] [facility] 10-08-2018 11:34-0400 Height 170.2 cm [employer] [facility] 10-08-2018 11:34-0400 Pulse (Heart Rate) 97 /min [facility] 10-08-2018 11:34-0400 Respiratory Rate 20 /min [employer] [facility] 07-16-2018 16:40-0500 BMI (Body Mass Index) 39.47 kg/m2 [facility] Work Phone: 07-16-2018 16:40-0500 Body Temperature 98.1 [degF] [facility] Work Phone: 07-16-2018 16:40-0500 BP Diastolic 83 mm[Hg] [facility] Work Phone: 07-16-2018 16:40-0500 BP Systolic 141 mm[Hg] [facility] Work Phone: 07-16-2018 16:40-0500 Height 170.2 cm [facility] Work Phone: 07-16-2018 16:40-0500 Pulse (Heart Rate) 89 /min [facility] Work Phone: 07-16-2018 16:40-0500 Respiratory Rate 16 /min [facility] Work Phone: 07-16-2018 16:40-0500 Weight 114.31 kg [facility] Work Phone: Encounters Encounter Date Encounter Type Care Provider Facility Start: 01-05-2024 [facility] Start: 12-29-2023 ambulatory BLOOD BANK ATTENDANT Earline Nixab Facil ity:[facility] Start: 12-13-2023 End: 12-13-2023 Subsequent hospital visit by physician Vickie [facility] Start: 12-05-2023 End: 12-05-2023 Subsequent hospital visit by physician Maricarmen Menchaca AC[facility] Start: 12-05-2023 ambulatory [facility] Start: 12-01-2023 End: 12-01-2023 ambulatory BLOOD BANK ATTENDANT Earline Moran Gustavo Facility:[facility] Start: 11-30-2023 End: 11-30-2023 Subsequent hospital visit by physician Tangela Wolfe [facility] Start: 11-22-2023 ambulatory Donny Cardenas acility:[facility] Start: 11-20-2023 Telephone encounter Tangela slater APRN.CNP Work Phone: [facility] Comment on above: Appointment Start: 11-17-2023 End: 11-17-2023 ambulatory ARPAN CUELLO Facility:[facility] Start: 11-17-2023 End: 11-17-2023 ambulatory Tangela Paula APRN.CNP Work Phone: [facility] Comment on above: Paraplegia (HCC) (Pr imary Dx); Fusion of spine of thoracolumbar region; Weakness; Constipation, unspecified constipation type; Spasticity Start: 11-17-2023 End: 11-17-2023 Telemedicine consultation with patient Tangela Paula APRN.CNP Work Phone: [facility] Start: 11-15-2023 End: 11-15-2023 ambulatory [facility] Start: 11-09-2023 End: 11-09-2023 [facility] Start: 11-06-2023 End: 11-06-2023 ambulatory [facility] Start: 11-02-2023 End: 11-02-2023 Subsequent hospital visit by physician [facility] Start: 11-02-2023 ambulatory [facility]ELI [facility] Start: 10-31-2023 End: 10-31-2023 ambulatory [facility] Start: 10-27-2023 End: 10-27-2023 ambulatory BLOOD BANK ATTENDANT Earline L Gustavo Facility:[facility] Start: 10-26-2023 End: 10-26-2023 ambulatory [facility] Start: 10-24-2023 End: 10-24-2023 ambulatory [facility] Start: 10-12-2023 End: 10-12-2023 ambulatory [facility] Start: 10-11-2023 End: 10-11-2023 ambulatory BLOOD BANK ATTENDANT Earline L Gustavo [facility] Start: 10-06-2023 End: 10-06-2023 ambulatory BLOOD BANK ATTENDANT Earline L Gustavo [facility] Start: 10-05-2023 End: 10-05-2023 ambulatory [facility] Start: 09-28-2023 End: 09-28-2023 ambulatory [facility] Start: 09-28-2023 End: 09-28-2023 Subsequent hospital visit by physician Madyson Davila [facility] Comment on above: Arrived Start: 09-25-2023 ambulatory Arpan [employer] Work Phone: [facility] Comment on above: Test results Start: 2023 ambulatory ARPAN CUELLO Facility:[facility] Start: 2023 End: 2023 Subsequent hospital visit by physician Mr [facility] (Istat/1.5) Work Phone: [facility] MRI Comment on above: Mid back pain [M54.9 ] Start: 09-21-2023 End: 09-21-2023 ambulatory [facility]ARY [facility] Start: 09-21-2023 End: 09-21-2023 Subsequent hospital visit by physician Maria Del Rosario Martinez [facility] Comment on above: Arrived Start: 09-14-2023 End: 09-14-2023 Subsequent hospital visit by physician Dilcia Lee [facility] Start: 09-14-2023 ambulatory [facility] Start: 08-29-2023 End: 08-29-2023 Subsequent hospital visit by physician Dilcia Lee [facility] Start: 08-24-2023 End: 08-24-2023 ambulatory BLOOD BANK ATTENDANT Earline L Gustavo Facility[facility] Start: 08-16-2023 End: 08-16-2023 ambulatory BLOOD BANK ATTENDANT Earline L Gustavo Facility:[facility] Start: 08-10-2023 End: 08-10-2023 ambulatory [facility]I MARY KATE [facility] Start: 08-10-2023 End: 08-10-2023 Subsequent hospital visit by physician Dilcia Lee [facility] Comment on above: Arrived Start: 08-07-2023 ambulatory [facility] Start: 08-01-2023 End: 08-01-2023 ambulatory [facility]I MAYR K[facility] Start: 07-28-2023 End: 07-28-2023 ambulatory ARPAN CUELLO Facility:[facility] Start: 07-24-2023 End: 07-24-2023 ambulatory [facility] Start: 07-22-2023 ambulatory BLOOD BANK ATTENDANT Earline Gustavo Facilit y:[facility] Start: 07-20-2023 End: 07-20-2023 Subsequent hospital visit by physician Dilcia Lee [facility] Start: 07-12-2023 End: 07-12-2023 ambulatory [facility]N [facility] Start: 07-10-2023 End: 07-10-2023 ambulatory BLOOD BANK ATTENDANT Earline L Gustavo Facility:[facility] Start: 06-30-2023 End: 06-30-2023 ambulatory [facility] Start: 06-28-2023 End: 07-01-2023 ambulatory YANELI [facility] Start: 06-27-2023 End: 06-27-2023 ambulatory BLOOD BANK ATTENDANT Earline L Gustavo Facility:[facility] Start: 06-22-2023 End: 06-22-2023 ambulatory [facility] Start: 06-12-2023 End: 06-12-2023 ambulatory [facility] Start: 06-01-2023 End: 06-01-2023 ambulatory [facility] Start: 05-31-2023 End: 05-31-2023 ambulatory BLOOD BANK ATTENDANT Earline L Gustavo Facility[facility] Start: 05-05-2023 End: 05-23-2023 Evaluation and management of inpatient [facility] Start: 04-24-2023 End: 04-29-2023 [facility] Start: 04-11-2023 End: 04-11-2023 ambulatory [facility] Start: 04-04-2023 End: 04-04-2023 ambulatory [facility] Start: 03-30-2023 End: 03-30-2023 ambulatory [facility] Start: 03-23-2023 End: 03-23-2023 ambulatory [facility] Start: 03-21-2023 End: 03-21-2023 Subsequent hospital visit by physician Maria Del [facility] Start: 03-16-2023 End: 03-16-2023 ambulatory [facility] Start: 03-09-2023 End: 03-09-2023 [facility] Start: 03-07-2023 ambulatory [facility] Start: 03-01-2023 End: 03-01-2023 ambulatory BLOOD BANK ATTENDANT Earline Khan Facility:[facility] Start: 02-20-2023 End: 02-20-2023 ambulatory [facility] Start: 02-16-2023 ambulatory BLOOD BANK ATTENDANT Earline Khan Facilit y:FT [facility] Start: 02-07-2023 End: 02-07-2023 ambulatory Prabhu Ritter Other [place] [employer] Other Start: 02-07-2023 Telephone encounter [facility] [place] Start: 01-11-2023 End: 01-14-2023 ambulatory [facility] Start: 07-23-2022 End: 07-23-2022 Subsequent hospital visit by physician [facility] [place] [facility] Comment on above: spinal cord compress ion Start: 07-08-2022 End: 07-28-2022 Subsequent hospital visit by physician Edwar Hanson MD Work Phone: [facility] Comment on above: [[id number]] - Other sp ecified postprocedural state Start: 06-26-2022 End: 07-08-2022 Evaluation and management of inpatient Hebert Austin DO Work Phone: [facility] Comment on above: Closed fracture of t welfth thoracic vertebra, unspecified fracture morphology, initial encounter (HCC) (Primary Dx); Seizure (HCC); Spine disorder Start: 06-26-2022 End: 06-26-2022 Emergency department patient visit WAPAKONETA [facility] Start: 06-26-2022 End: 06-26-2022 Emergency department patient visit Levi Vera DO Work Phone: [facility] Start: 06-03-2022 End: 06-04-2022 ambulatory NONE LISTED REQUEST Facility: Start: 02-26-[address] DAVID MORALES . Facili ty:H1 Start: 01-12-2022 End: 01-13-[address] DAVID MORALES . Facility: Start: 11-10-2021 End: 11-10-2021 Patient encounter procedure Tiny BRUNO [facility] Start: 07-06-2021 Evaluation and management of inpatient TETE GUSTAFSON Facility:[facility] LOC Start: 10-29-2019 End: 10-29-2019 Subsequent hospital visit by physician Wendy DE LA TORREVZ EKG Start: 10-26-2019 End: 10-26-2019 Emergency department patient visit Dakota Jolene Bonds Work Phone: [facility] ED Comment on above: Chronic dental pain (Primary Dx) Start: 06-10-2019 End: 06-10-2019 Emergency department patient visit Jorgearchie Rodriguesphong Work Phone: [facility] Emergency Medicine Start: 10-22-2018 Notes/Results Only Other Other NOTE S/RESULTS Start: 10-22-2018 End: 10-22-2018 Patient encounter procedure Other Other [facility] Start: 10-22-2018 End: 10-22-2018 Emergency department patient visit Kehinde Lew Work Phone: [facility] Emergency Medicine Start: 10-18-2018 End: 10-18-2018 Patient encounter procedure [facility] Start: 10-08-2018 End: 10-08-2018 Emergency department patient visit Gold Choi Work Phone: [facility] Emergency Medicine Start: 09-06-2018 End: 09-06-2018 Patient encounter procedure [facility] Start: 08-23-2018 End: 08-23-2018 Patient encounter procedure [facility] Start: 07-16-2018 End: 07-16-2018 Office outpatient new 30 minutes Pa Rodriguez Work Phone: [facility] Comment on above: Acute upper respirat ory infection (Primary Dx) Start: 06-29-2018 End: 06-29-2018 Patient encounter procedure Jocelyn Bowen CN Facility:[facility] Start: 06-05-2018 End: 06-05-2018 Patient encounter procedure Lenora Peña CNM Facility:[facility] Start: 05-29-2018 End: 06-02-2018 Evaluation and management of inpatient Audrye J Rao Facility:[facility] Start: 05-25-2018 End: 05-25-2018 Patient encounter procedure Audrey J Rao Facility:[facility] Start: 05-18-2018 End: 05-18-2018 Patient encounter procedure Susannah Long Facility:[facility] Start: 05-15-2018 End: 05-15-2018 Patient encounter Audrey Rao Work Phone: [facility] Start: 05-01-2018 End: 05-02-2018 Patient encounter procedure Audrey J Rao Facility:[facility] Start: 04-16-2018 End: 04-16-2018 Patient encounter procedure Audrey J Rao Facility:[facility] Start: 04-16-2018 End: 04-16-2018 Patient encounter procedure Audrey J Rao Facility:[facility] Start: 04-09-2018 End: 04-09-2018 Patient encounter procedure Audrey J Rao Facility:[facility] Start: 03-26-2018 End: 03-26-2018 Patient encounter procedure Audrey J Rao Facility:[facility] Start: 01-11-2018 End: 01-11-2018 Patient encounter procedure Jocelyn Bowen CNM Facility:[facility] Start: 11-30-2017 End: 11-30-2017 Emergency department patient visit DAR MELVIN Facility:001 Start: 11-22-2017 End: 11-22-2017 Ambulatory Timoteo Salgado Facility:001 Start: 11-15-2017 End: 11-15-2017 Emergency department patient visit WENDY SUAZO Facility:001 Start: 10-24-2017 End: 10-24-2017 Emergency department patient visit WENDY SUAZO Facility:001 Start: 10-19-2017 End: 10-19-[address] [facility] Facility:001 Start: 08-15-2017 End: 08-15-2017 Emergency department patient visit DONNELL ELLIS Facility:001 Start: 06-30-2017 End: 06-30-2017 Emergency department patient visit WENDY SUAZO Facility:001 Start: 02-23-2017 End: 02-23-2017 Ambulatory Timoteo Salgado Facility:001 Procedures Date Procedure Procedure Detail Performing Clinician Start: 2023 Mri spinal canal lum bar w/o contrast material Arpan Cuello APRN.[employer] Work Phone: Start: 07-28-2022 Blood count complete auto&auto difrntl wbc Enrique Washington MD Work Phone: Start: 07-25-2022 Blood count complete auto&auto difrntl wbc Enrique Washington MD Work Phone: Start: 07-21-2022 Blood count complete auto&auto difrntl wbc Enrique Washington MD Work Phone: Start: 07-18-2022 Blood count complete auto&auto difrntl wbc Enrique Washington MD Work Phone: Start: 07-14-2022 Blood count complete auto&auto difrntl wbc Enrique Washington MD Work Phone: Start: 07-12-2022 Assay of phosphatase alkaline Edwar Hanson MD Work Phone: Start: 07-11-2022 Blood count complete auto&auto difrntl wbc Enrique Washington MD Work Phone: Start: 07-06-2022 Basic metabolic pane l calcium total Adrian D Coughlin DO Work Phone: Start: 07-05-2022 Basic metabolic pane l calcium total Adrian D Coughlin DO Work Phone: Start: 07-04-2022 End: 07-04-2022 Basic metabolic panel calcium total Adrian D Coughlin DO Work Phone: Start: 07-03-2022 Basic metabolic pane l calcium total Adrian D Coughlin DO Work Phone: Start: 07-02-2022 Basic metabolic pane l calcium total Adrian D Coughlin DO Work Phone: Start: 07-01-2022 Basic metabolic pane l calcium total Adrian D Coughlin DO Work Phone: Start: 06-30-2022 Dup-scan xtr veins c omplete bilateral study 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[employer] Work Phone: Start: 06-30-2022 Basic metabolic pane l calcium total Berenice C [place] DO Work Phone: Start: 06-29-2022 Glucose blood reagent strip Rashad Ascencio MD Work Phone: Start: 06-29-2022 Basic metabolic pane l calcium total Berenice C [place] DO Work Phone: Start: 06-28-2022 Basic metabolic pane l calcium total Berenice C [place] DO Work Phone: Start: 06-28-2022 Blood count hemoglobin Gopal Abisai DO Work Phone: Start: 06-27-2022 Blood count hemoglobin Milly Hardin MD Work Phone: Start: 06-27-2022 Ecg routine ecg w/le ast 12 lds trcg only w/o i&r Berenice C [place] DO Work Phone: Start: 06-27-2022 Basic metabolic pane l calcium total Berenice C [place] DO Work Phone: Start: 06-27-2022 Blood count hemoglobin Milly Hardin MD Work Phone: Start: 06-27-2022 Urinalysis microscopic only Milly Hardin MD Work Phone: Start: 06-27-2022 Urnls dip stick/tabl et rgnt auto w/o microscopy Milly Hardin MD Work Phone: Start: 06-27-2022 Blood count hemoglobin Jyoti Ryann DO Start: 06-26-2022 End: 12-25-2022 Fluoroscopy during operation Getachew lopez DO Work Phone: Start: 06-26-2022 End: 06-26-2022 LUMBAR LAMINECTOMY DISCECTOMY POSTERIOR Getachew Leong DO Work Phone: Start: 06-26-2022 Mri spinal canal tho racic w/o contrast matrl Bang Church MD Work Phone: Start: 06-26-2022 CT LUMBAR SPINE TRAU MA RECONSTRUCTION Thong Aguilar MD Work Phone: Start: 06-26-2022 CT THORACIC SPINE TR AUMA RECONSTRUCTION Thong Aguilar MD Work Phone: Start: 06-26-2022 Ct thorax w/contrast material Thong Aguilar MD Work Phone: Start: 06-26-2022 Ct cervical spine w/ o contrast material Thong Aguilar MD Work Phone: Start: 06-26-2022 Ct head/brain w/o co ntrast material Thong Aguilar MD Work Phone: Start: 06-26-2022 Antibody screen Hebert Austin DO Work Phone: Start: 06-26-2022 End: 06-26-2022 Blood typing serologic abo Rashad hayden MD Work Phone: Start: 06-26-2022 Blood gases any comb ination ph pco2 po2 co2 hco3 Rashad Ascencio MD Work Phone: Start: 06-26-2022 Speech and language therapy regime Gopal Oakeswda DO Work Phone: Start: 06-26-2022 TRAUMA PANEL Thong escoto MD Work Phone: Start: 06-26-2022 Culture bacterial qu anttative colony count urine Gopal Abisai DO Work Phone: Start: 06-26-2022 Assay of troponin quantitative Levi Vera DO Work Phone: Start: 06-26-2022 BASIC METABOLIC PROFILE ER Levi Vera [employer] Work Phone: Start: 06-26-2022 Complete blood count with white cell differential, automated Levi Vera DO Work Phone: Start: 06-26-2022 Ct lumbar spine w/o contrast material Levi Vera DO Work Phone: Start: 10-29-2019 Ecg routine ecg w/le ast 12 lds w/i&r Perlita Michaelayimimoises Work Phone: Start: 10-22-2018 Choriogonadotropin ( test) [Presence] in Urine Kehinde Lew Work Phone: Start: 10-22-2018 DRUGS OF ABUSE PROFILE, URINE Kehinde Lew Work Phone: Start: 10-22-2018 URINALYSIS WITH REFL EX CULTURE Kehinde Lew Work Phone: Start: 10-22-2018 Urnls dip stick/tabl et reagent auto microscopy Kehinde Lew Work Phone: Start: 10-22-2018 Assay of acetaminophen Kehinde [employer] Work Phone: Start: 10-22-2018 Assay of ethanol Sb [employer] Work Phone: Start: 10-22-2018 Assay of salicylate Jony [employer] Work Phone: Start: 10-22-2018 CBC, EDIF, PLATELET Jony Mcallister Lew Work Phone: Start: 10-22-2018 COMPREHENSIVE METABO LIC PROFILE ER Kehinde Lew Work Phone: Start: 10-22-2018 Drug screen quantita tive lithium Kehinde Lew Work Phone: Start: 10-22-2018 MANUAL DIFFERENTIAL Jony Lew Work Phone: Start: 10-22-2018 TSH W/ FREE T4 Kehinde Delaneyer Work Phone: Start: 05-18-2018 Blood count hemoglobin Jocelyn Bowen CNM Comment on above: Order Comment: Urine Source Urine, Clean Catch Performed By: #### L [id number] ####Main Laboratory ([facility])[address]DESIRAE Polanco [phone] Nivar, MD Start: 05-15-2018 End: 05-15-2018 LABS (OUTSIDE) Audrey Rao Work Phone: Start: 05-02-2018 Blood count hemoglobin Jocelyn ARENASM Comment on above: Order Comment: Urine Source Urine, Clean Catch Performed By: #### L 402.4000 ####Main Laboratory ([facility])[address]DESIRAE Polanco [phone] Nivar, MD Start: 04-16-2018 Blood count ganesh ARENASM Comment on above: Order Comment: Urine Source Urine, Clean Catch Performed By: #### B [id number] ####Main Laboratory ([facility])[address]DESIRAE Polanco [phone] Nivar, MD Start: 04-09-2018 Blood count ganesh ARENASM Comment on above: Order Comment: Urine Source Urine, Unknown Collection Performed By: #### L 300.3000 ####Main Laboratory ([facility])[address]DESIRAE Polanco [phone] Nivar, MD Start: 03-26-2018 Blood count ganesh ARENASM Comment on above: Order Comment: Urine Source Urine, Unknown Collection Performed By: #### L 300.3000 ####Main Laboratory ([facility])[address]DESIRAE Polanco [phone] Nivar, MD Start: 01-11-2018 Blood count ganesh ARENASM Comment on above: Order Comment: Urine Source Urine, Unknown Collection Performed By: #### L 300.3000 ####Main Laboratory ([facility])[address]DESIRAE Polanco [phone] Nivar, MD section [facility] Tonsillectomy Tiny BRUNO Plan of Treatment Date Care Activity Detail Author Start: 03-03-2024 Influenza vaccination Influenza Vaccine (Season Ended) [facility] Start: 02-01-2024 Influenza vaccination Flu vaccine (Season Ended) [facility] Start: 01-09-2024 End: 01-09-2024 Patient encounter procedure 01/09/2024 11:00 AM EDT Office Visit Rehab Medicine [address] [id number] Dakota Benedict MD [address] [id number] spinal cord injury Rehab Medicine Comment on above: spinal cord injury Start: 12-21-2023 End: 12-21-2023 Patient encounter procedure 12/21/2023 10:15 AM EDT [facility]ointment [facility] [address] [place], [place] [phone] Isidro Fowler PTA [facility] Start: 12-19-2023 End: 12-19-2023 Patient encounter procedure 12/19/2023 10:45 AM EDT Appointment [facility] [address] [place], [place] [phone] Isidro Fowler PTA [facility] Start: 12-18-2023 End: 12-18-2023 Patient encounter procedure 12/18/2023 10:30 AM EDT Office Visit [facility] [address] [place] [address] [address], [place] [place] [address] Getachew Leong, DO [address] [facility] [address] [place] [address] Call pt and lvm that a Xray needs to be done 11/20/23 [facility] Comment on above: Call pt and lvm that a Xray needs to be done 11/20/23 Start: 12-13-2023 End: 12-13-2023 Patient encounter procedure 12/13/2023 10:30 AM EDT Appointment [facility] [address] [place] [phone] Vickie Feng, PT [facility] Start: 12-07-2023 End: 12-07-2023 Patient encounter procedure 12/07/2023 11:30 AM EDT Appointment [facility] [address] [place] [phone] Maricarmen Menchaca PTA [facility] Start: 12-05-2023 End: 12-05-2023 Patient encounter procedure 12/05/2023 11:15 AM EDT Appointment [facility] [address] [place] [phone] Maricarmen Menchaca PTA [facility] Start: 11-22-2023 End: 11-22-2023 Patient encounter procedure 11/22/2023 10:30 AM EDT Office Visit [facility] [address] [facility] [address], [address] [place] [phone] Getachew Leong, [address] [facility] [address] [place] [address] 3.15.24 LVM to confirm JLH [facility] Comment on above: 3.15.24 LVM to confirm JL Start: 11-20-2023 End: 11-20-2023 Patient encounter procedure 11/20/2023 10:00 AM EDT Appointment [facility] Physical Therapy [address] [place] [id number] Lyndsay Mahmood [facility] Start: 11-15-2023 End: 11-15-2023 Patient encounter procedure 11/15/2023 10:45 AM EDT Appointment [facility] [address] [place] [phone] Lyndsay Mahmood PTA [facility] Start: 11-09-2023 End: 11-09-2023 Patient encounter procedure 11/09/2023 10:30 AM EDT Appointment [facility] [address] [place] [phone] Dilcia Lee [facility] Start: 11-06-2023 End: 11-06-2023 Patient encounter procedure 11/06/2023 10:15 AM EDT [facility] [address] [place] [address], [place] [address] Lyndsay Mahmood [facility] Start: 11-02-2023 End: 11-02-2023 Patient encounter procedure 11/02/2023 10:30 AM EDT [facility]ment [facility] [address] [place] [address], [place] [address] Dilcia Lee PTA [facility] Start: 10-31-2023 End: 10-31-2023 Patient encounter procedure 10/31/2023 10:30 AM EDT Appointment [facility] [address] [place] [address], [place] [address] Dilcia Lee [facility]TA [facility] Start: 10-26-2023 End: 10-26-2023 Patient encounter procedure 10/26/2023 10:30 AM EDT Appointment [facility] [address] [place] [address], [place] [address] Dilcia Lee [facility]TA [facility] Start: 10-24-2023 End: 10-24-2023 Patient encounter procedure 10/24/2023 10:30 AM EDT Appointment [facility] [address] [place] [address], [place] [address] Dilcia Lee PTA [facility] Start: 10-12-2023 End: 10-12-2023 Patient encounter procedure 10/12/2023 10:30 AM EDT [facility]ment [facility] [address] [place] [address], [place] [address] Vickie Feng, PT [facility] Start: 10-05-2023 End: 10-05-2023 Patient encounter procedure 10/05/2023 10:30 AM EDT Appointment [facility] [address] [place] [phone] Vickie Feng, PT [facility] Start: 09-28-2023 End: 09-28-2023 Patient encounter procedure 09/28/2023 10:30 AM EDT Appointment [facility] [address] [place], [place] [phone] Vickie Feng PT [facility] Start: 09-21-2023 End: 09-21-2023 Patient encounter procedure 09/21/2023 10:15 AM EDT Appointment [facility] [address] [place], [place] [phone] Maria Del Rosario Martinez PTA [facility] Start: 09-20-2023 End: 09-20-2023 Patient encounter procedure [facility] Comment on above: Follow up 09.15.23 LVM to watsoni rm [facility] Start: 09-14-2023 End: 09-14-2023 Patient encounter procedure 09/14/2023 10:30 AM EDT Appointment [facility] [address] [place], [place] [phone] Dilcia Lee PTA [facility] Start: 09-07-2023 End: 09-07-2023 Patient encounter procedure 09/07/2023 10:15 AM EST Office Visit [facility] Physical Medicine & Rehabilitation [address] [place], [place] [phone] Bernardo De Santiago, [place] [address] chronic pain sydrome, s/p surgery [facility] Comment on above: chronic pain sydrome, s/p surgery Start: 08-31-2023 End: 08-31-2023 Patient encounter procedure 08/31/2023 10:30 AM EST Appointment [facility] [address] [place], [place] [phone] Dilcia Lee PTA [facility] Start: 08-29-2023 End: 08-29-2023 Patient encounter procedure 08/29/2023 10:30 AM EST Appointment [facility] [address] [place] [phone] Dilcia Lee PTA [facility] Start: 08-24-2023 End: 08-24-2023 Patient encounter procedure 08/24/2023 11:00 AM EST Initial consult [facility] Rehabilitation [address] [place] [address] Juliann Painter MD [address] [facility] [place] [address] Spinal cord injury rehab [facility] Comment on above: Spinal cord injury rehab Start: 08-23-2023 End: 08-23-2023 Patient encounter procedure 08/23/2023 10:30 AM EST Appointment [facility] [address] [place] [phone] Nicole Wall, AC/DC REWINDER [facility] Start: 08-17-2023 End: 08-17-2023 Patient encounter procedure 08/17/2023 10:15 AM EST Appointment [facility] [address] [place] [phone] Isidro Fowler AC/DC REWINDER print schedule [facility] Comment on above: print schedule Start: 08-01-2023 End: 08-01-2023 Patient encounter procedure 08/01/2023 10:30 AM EST Appointment [facility] [address] [place] [phone] Dilcia Lee AC/DC [employer] [facility] Start: 07-24-2023 End: 07-24-2023 Patient encounter procedure 07/24/2023 10:30 AM EST Appointment [facility] [address] [place] [phone] Vickie Feng, PT [facility] Start: 07-03-2023 Behavioral Health Screening Behavioral Health Screening [facility] Start: 07-03-2023 Depression Assessment Depression Assessment [facility] Start: 06-28-2023 End: 06-28-2023 Patient encounter procedure 06/28/2023 11:00 AM EST Office Visit [facility] [address] [facility] [address], [place] [address] Getachew Leong, [address] [facility] [address] [place] [address] 8 wk post op [facility] Comment on above: 8 wk post op Start: 05-18-2023 End: 05-18-2023 Patient encounter procedure 05/18/2023 9:30 AM EST Office Visit [facility] [address] [facility] [address], [place] [place] [phone] Deb Colon W, DIGITAL ANALYTICS MANAGER - [employer] [address] [facility] [address] [place], [place] [id number] 2 wk post op-ahammad [facility] Comment on above: 2 wk post op-ahammad Start: 05-05-2023 End: 05-05-2023 Admission to same day surgery center 05/05/2023 7:30 AM EDT - 05/05/2023 2:30 PM EDT Surgery [facility] [address] [place] [address] Getachew Leong DO [address] [facility] [address] [place] [phone] L1 LATERAL CORPECTOMY (*CELLSAVER*, [employer], LATERAL LEFT SIDE UP, C-ARM, SSEP MONITORING, [employer]ES CONF# [id number]) [facility] Comment on above: L1 LATERAL CORPECTOMY (*CELLSAVER*, MEDT RONICS, LATERAL LEFT SIDE UP, C-ARM, SSEP MONITORING, EVOKES CONF# [id number]) Start: 05-05-2023 End: 05-05-2023 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 LUMBAR INTERBODY FUSION LATERAL Complete paraplegia (HCC) 05/05/2023 7:30 AM EDT [facility] Start: 05-05-2023 End: 05-05-2023 LUMBAR INTERBODY FUSION ANTERIOR LUMBAR INTERBODY FUSION ANTERIOR Complete paraplegia (HCC) 05/05/2023 7:30 AM EDT [facility] Start: 05-05-2023 Subsequent hospital visit by physician 05/05/2023 7:30 AM EDT Hospital Encounter [facility] [address] [place] [address] Getachew Leong DO [address] [facility] [address] [place] [id number] [facility] Start: 04-27-2023 End: 04-27-2023 Patient encounter procedure 04/27/2023 9:00 AM EDT Initial consult [facility] Physical Medicine and Rehabilitation [address] [place] [address] Altaf Daniels MD [address] [place] [address] Rehab Mary/ Trae Consulted 06/29/22. Sched w/Buffy w/[facility] [phone] *No Testing*-formerly [facility] Physical Medicine and Rehabilitation Comment on above: Rehab Evandrés/ Trae Consulted 06/29/22. Sched w/Buffy w/[facility] [phone] *No Testing*- Start: 04-21-2023 End: 04-21-2023 Patient encounter procedure 04/21/2023 9:30 AM EDT Appointment [facility]mit [facility] [address] [place] [address] [facility]Admit [facility] Start: 04-13-2023 End: 04-13-2023 Patient encounter procedure 04/13/2023 9:45 AM EDT [facility]ment [facility] [address] [place] [id number] Dilcia Lee [facility] Physical Therapy Start: 04-11-2023 End: 04-11-2023 Patient encounter procedure 04/11/2023 9:30 AM EDT Appointment [facility] [address] [place] [id number] Maria Del Rosario Martinez [facility] Physical Therapy Start: 04-06-2023 End: 04-06-2023 Patient encounter procedure 04/06/2023 9:45 AM EDT Appointment [facility] [address] [place] [id number] Dilcia Lee [facility] Physical Therapy Start: 04-04-2023 End: 04-04-2023 Patient encounter procedure 04/04/2023 9:30 AM EDT [facility] [address] [place] [id number] Maria Del Rosario Martinez [facility] Physical Therapy Start: 03-30-2023 End: 03-30-2023 Patient encounter procedure 03/30/2023 9:45 AM EDT [facility]ointment [facility] Physical Therapy [address] [place] [id number] Dilcia Lee [facility] Physical Therapy Start: 03-03-2023 Covid-19 Vaccine ( season) Covid-19 Vaccine ( season) [facility] Start: 03-03-2023 Influenza vaccination Influenza Vaccine (#1) [facility] Start: 01-31-2023 Influenza vaccination Flu vaccine (#1) [facility] Start: 07-15-2022 End: 07-15-2022 Patient encounter procedure 07/15/2022 Office Visit Neurosurgery Deb Colon, DIGITAL ANALYTICS MANAGER - [employer] [address] [facility] [address] [place] [address] [facility] Start: 07-03-2022 DEPRESSION ASSESSMENT DEPRESSION ASSESSMENT [facility] Start: 03-03-2022 Influenza vaccination [facility] Start: 01-31-2022 Influenza vaccination Flu vaccine (#1) [facility] Start: 03-03-2020 Influenza vaccination Flu vaccine (Season Ended) [facility] [place] Start: 03-03-2019 Influenza vaccination [employer] [facility] Start: 11-22-2018 GONORRHEA SCREEN GONORRHEA SCREEN [facility] Work Phone: Start: 11-22-2018 Screening for Chlamydia trachomatis [facility] Start: 2018 PAP TESTING PAP TESTING [facility] Start: 2018 Screening for malignant neoplasm of cervix [facility] Start: 03-03-2018 Influenza vaccination INFLUENZA VACCINE (#1) [facility] Work Phone: Start: 2016 DTaP/Tdap/Td vaccine (1 - Tdap) DTaP/Tdap/Td vaccine (1 - Tdap) [facility] Start: 2016 Hepatitis B Vaccine (1 of 3 - 19+ 3-dose series) Hepatitis B Vaccine (1 of 3 - 19+ 3-dose series) [facility] Start: 2016 Third diphtheria, tetanus and acellular pertussis (DTaP) vaccination TDAP (ADULT) [facility] Start: 2016 Urine microalbumin profile [facility] Start: 09-23-2015 HEPATITIS C SCREENING HEPATITIS C SCREENING [facility] Start: 09-23-2015 Hepatitis C screening [facility] Start: 09-23-2015 Tetanus vaccination TETANUS [facility] Work Phone: Start: 2013 Screening for Chlamydia trachomatis [facility] Start: 2012 HIV screening HIV screen [facility] Start: 2012 HPV Vaccine (1 - 3-dose series) HPV Vaccine (1 - 3-dose series) [facility] Start: 2012 Vaccination for human papillomavirus HPV VACCINE ADOL (1 - Female 3-dose series) [facility] Start: 09-23-2011 PEDS TO ADULT TRANSITION ANNUAL ASSESSMENT PEDS TO ADULT TRANSITION ANNUAL ASSESSMENT [facility] Start: 2009 Depression Screen Depression Screen [facility] Start: 2009 PEDS TO ADULT TRANSITION INITIAL DISCUSSION PEDS TO ADULT TRANSITION INITIAL DISCUSSION [facility] Start: 2008 HPV vaccine (1 - 2-dose series) HPV vaccine (1 - 2-dose series) [facility] Start: 2008 Vaccination for human papillomavirus [facility] Start: 09-23-2003 Pneumococcal 0-64 years Vaccine (1 of 1 - PPSV23) Pneumococcal 0-64 years Vaccine (1 of 1 - PPSV23) [facility] [place] Start: 09-23-2003 PNEUMOCOCCAL VACCINE SERIES (1 - PCV) PNEUMOCOCCAL VACCINE SERIES (1 - PCV) [facility] Start: 1998 Varicella vaccine (1 of 2 - 2-dose childhood series) Varicella vaccine (1 of 2 - 2-dose childhood series) [facility] Start: 03-25-1998 COVID-19 VACCINE (#1) COVID-19 VACCINE (#1) [facility] Start: 1997 HEPATITIS B (1 of 3 - 3-dose series) HEPATITIS B (1 of 3 - 3-dose series) [facility] Start: 1997 Hepatitis B vaccine (1 of 3 - 3-dose series) Hepatitis B vaccine (1 of 3 - 3-dose series) [facility] Start: 1997 Hepatitis C screening HEPATITIS C VIRUS SCREENING [facility] Start: 1997 Tetanus vaccination TETANUS [facility] EKG 12 Lead EKG 12 Lead ECG Routine 10/29/2019 1:12 PM EDT [facility] End: 07-21-2022 HIV-2 DNA/RNA PCR HIV-2 DNA/RNA PCR Lab Routine ONCE for 1 Occurrences starting 07/21/2022 until 07/21/2022 [facility] Work Phone: Comment on above: ONCE for 1 Occurrences starting 07/21/19 until 07/21/2022 HIV-2 DNA/RNA PCR HIV-2 DNA/RNA PCR Lab Routine 07/21/2022 6:00 AM EST [facility] Work Phone: End: 10-22-2018 Standard ECG ECG ECG STAT One Time for 1 Occurrences starting 10/22/2018 until 10/22/2018 [employer] Comment on above: One Time for 1 Occurrences starting 10/02 until 10/22/2018 End: 06-26-2022 Standard ECG ECG ECG STAT One Time for 1 Occurrences starting 06/26/2022 until 06/26/2022 [facility] Work Phone: Comment on above: One Time for 1 Occurrences starting 06/03 until 06/26/2022 XR Lumbar spine AP a nd Lateral XR LUMBAR LIMITED 2V AP/LAT Radiology Routine Mid back pain Fusion of spine of thoracolumbar region 2023 3:41 PM EDT [facility] Work Phone: XR Thoracic spine AP and Lateral XR THORACIC LIMITED 2V AP/LAT Radiology Routine Mid back pain Fusion of spine of thoracolumbar region 2023 3:42 PM EDT [facility] Work Phone: [facility] Immunizations Immunization Date Immunization Notes Care Provider Eloisa laura 07-17-2018 influenza, seasonal, injectable [facility] Work Phone: [facility] 07-17-2018 influenza virus vaccine, unspecified formulation [facility] 06-11-2018 influenza, injectabl e, quadrivalent, preservative free [facility] Work Phone: [facility] NEGATED: Highlighted row has not occurred!07-21-2021 influenza virus vaccine, unspecified formulation [facility] Payers Date Payer Category Payer Unknown [id number] 2020 Medicaid [id number] 2019 [employer] [id number] 2019 Unknown [place] [place] [facility] OR OTHER [place] [facility] OR OTHER xxxxxxxxx 2019-Present xxxxxxxxx [id number] 2017 Unknown [facility] xxxxxxxxxxx 2017-Present xxxxxxxxxxx [id number] 2014 Unknown [id number] 1997 Unknown [id number] 2.16.840.1.566288.3.579.2 .93 1997 Unknown [id number] 2.16.840.1.548207.3.579.2 .93 1997 Unknown [id number] 2.16.840.1.062172.3.579.2 .93 1997 Unknown [id number] 2.16.840.1.914821.3.579.2 .111 1997 Unknown [id number] 2.16.840.1.454132.3.579.2 .593 1997 Unknown [id number] 2.16.840.1.551526.3.579.2 .593 1997 Unknown [id number] 2.16.840.1.154326.3.579.2 .593 1997 Unknown [id number] 2.16.840.1.251241.3.579.2 .175 1997 Unknown [id number] 2.16.840.1.303277.3.579.2 .175 1997 Unknown [id number] 2.16.840.1.447267.3.579.2 .175 1997 Unknown [id number] 2.16.840.1.068164.3.579.2 .175 1997 Unknown [id number] 2.16.840.1.009841.3.579.2 .175 1997 Unknown [id number] 2.16.840.1.446463.3.579.2 .175 1997 Unknown [id number] 2.16.840.1.618118.3.579.2 .173 1997 Unknown [id number] 2.16.840.1.688356.3.579.2 .173 1997 Unknown [id number] 2.16.840.1.047351.3.579.2 .173 1997 Unknown [id number] 2.16.840.1.366745.3.579.2 .173 1997 Unknown [id number] 2.16.840.1.406081.3.579.2 .173 1997 Unknown [id number] 2.16.840.1.335618.3.579.2 .173 1997 Unknown [id number] 2.16.840.1.095218.3.579.2 .173 1997 Unknown [id number] 2.16.840.1.291049.3.579.2 .173 1997 Unknown [id number] 2.16.840.1.312674.3.579.2 .173 1997 Unknown [id number] 2.16.840.1.026720.3.579.2 .173 1997 Unknown [id number] 2.16.840.1.702609.3.579.2 .173 1997 Unknown [id number] 2.16.840.1.958851.3.579.2 .173 1997 Unknown [id number] 2.16.840.1.316380.3.579.2 .173 1997 Unknown [id number] 2.16.840.1.348469.3.579.2 .173 1997 Unknown [id number] 2.16.840.1.335139.3.579.2 .173 1997 Unknown [id number] 2.16.840.1.226833.3.579.2 .173 1997 Unknown [id number] 2.16.840.1.642630.3.579.2 .173 1997 Unknown [id number] 2.16.840.1.353800.3.579.2 .173 1997 Unknown [id number] 2.16.840.1.772646.3.579.2 .173 1997 Unknown [id number] 2.16.840.1.756748.3.579.2 .173 1997 Unknown [id number] 2.16.840.1.208731.3.579.2 .173 1997 Unknown [id number] 2.16.840.1.796289.3.579.2 .173 1997 Unknown [id number] 2.16.840.1.943739.3.579.2 .173 1997 Unknown [id number] 2.16.840.1.380557.3.579.2 .173 1997 Unknown [id number] 2.16.840.1.624221.3.579.2 .173 1997 Unknown [id number] 2.16.840.1.530802.3.579.2 .173 1997 Unknown [id number] 2.16.840.1.618374.3.579.2 .173 1997 Unknown [id number] 2.16840.1.199673.3.579.2 .173 1997 Unknown [id number] 2.16840.1.328420.3.579.2 .173 1997 Unknown [id number] 2.16.840.1.467292.3.579.2 .173 1997 Unknown [id number] 2.16.840.1.844842.3.579.2 .173 1997 Unknown [id number] 2.16840.1.315944.3.579.2 .727 1997 Unknown [id number] 2.16840.1.579628.3.579.2 .727 1997 Unknown [id number] 2.16.840.1.836118.3.579.2 .727 1997 Unknown [id number] 2.16.840.1.679751.3.579.2 .727 1997 Unknown [id number] 2.16.840.1.626307.3.579.2 .727 1997 Unknown [id number] 2.16.840.1.325352.3.579.2 .727 1997 Unknown [id number] 2.16.840.1.658304.3.579.2 .727 1997 Unknown [id number] 2.16.840.1.751168.3.579.2 .727 1997 Unknown [id number] 2.16.840.1.397708.3.579.2 .727 1997 Unknown [id number] 2.16.840.1.000928.3.579.2 .727 1997 Unknown [id number] 2.16.840.1.987157.3.579.2 .727 1997 Unknown [id number] 2.16840.1.149962.3.579.2 .727 1959 Self-pay 1959 Unknown [id number] Unknown [id number] 2.16840.1.833158.3.579.2 .139 Unknown [id number] 2.840.1.964451.3.579.2 .139 Unknown [id number] 2.840.1.824159.3.579.2 .139 Unknown [id number] 2.840.1.766856.3.579.2 .139 Unknown [id number] 2.16840.1.979298.3.579.2 .139 Unknown [id number] 2.16840.1.008934.3.579.2 .139 Unknown [id number] 2.16840.1.906027.3.579.2 .139 Unknown [id number] 2.16840.1.045927.3.579.2 .139 Unknown [id number] 2.16840.1.725437.3.579.2 .139 Unknown [id number] 2.16840.1.575452.3.579.2 .139 Unknown [id number] 2.16840.1.421727.3.579.2 .139 Unknown [id number] 2.16840.1.979697.3.579.2 .139 Social History Date Type Detail Facility Start: 12-20-2017 End: 06-26-2022 Tobacco smoking status [facility] Heavy tobacco smoker [facility] End: 07-03-2020 History of tobacco use Cigarette Smoker [facility] Work Phone: Start: 12-20-2017 End: 05-06-2023 Cigarettes smoked current (pack per day) - Reported [facility] Start: 2017 [facility] Work Phone: Start: 1997 Sex Assigned At Not on file [facility] Work Phone: Start: 06-10-2019 End: 06-26-2022 Alcohol intake Current drinker of alcohol (finding) [facility] Start: 10-26-2019 Tobacco smoking status [facility] Current every day smoker [employer] Exposure to SARS-CoV -2 (event) Unable to assess cielo24, FSI Tobacco Vaping, Yes [facility] Start: 06-28-2022 End: 05-06-2023 Sex Assigned At Female [facility] Start: 06-26-2022 End: 06-28-2023 Tobacco use and exposure Smokeless tobacco non-user [facility] Work Phone: Start: 06-16-2022 End: 06-26-2022 Exposure to SARS-CoV-2 (event) Not sure [facility] Work Phone: Start: 06-26-2022 End: 06-28-2023 Tobacco smoking status [facility] Ex-smoker [facility] End: 07-03-2020 History of tobacco use Current smoker [facility] Work Phone: Start: 06-28-2022 End: 09-07-2023 Alcohol intake Ex-drinker (finding) [facility] Work Phone: Start: 06-28-2022 History SDOH Alcohol Frequency 2 [facility] Work Phone: Start: 06-28-2022 History SDOH Alcohol Std Drinks 1 [facility] Work Phone: [facility] consumption unknown [facility] How often to you hav e a drink containing alcohol? Monthly or less [facility] How many standard dr inks containing alcohol do you have on a typical day? 1 or 2 [facility] How often do you hav e 6 or more drinks on 1 occasion? Never [facility] Start: 1995 Sex Assigned At Female [facility] Start: 01-23-2023 Gender identity Identifies as female gender (finding) [facility] Start: 01-23-2023 Sexual orientation Heterosexual (finding) [facility] Has the [employer], [employer], or water whoactually threatened to shut off services in your home in past 12Mo No [facility] (I/We) worried ashley er (my/our) food would run out before (I/we) got money to buy more. Never true [facility] In the past 12 month s, has lack of transportation kept you from medical appointments or from getting medications? No [facility] Medical Equipment Procedure Code Equipment Code Equipment Original Text Equipment Identifier Dates Set Scr Spnl Merline 4.75mm Ti Brk Off Cdh Solera - [id number] Start: 06-26-2022 Graft Bne Sub W1 xl10cm Spnl Deformity Magnifuse Mn - [id number] Start: 06-26-2022 Screw Bne L5mm D ia1.5mm Univ Self Drl Crss Pin 5/Ea - [id number] Start: 05-05-2023 Screw Spnl Multa xl 6.5x45 Mm For 4.75 Mm Timothy Ats - [id number] Start: 06-26-2022 Screw Spnl Multa xl 7.5x40 Mm For 4.75 Mm Timothy Ats - [id number] Start: 06-26-2022 Timothy Spnl L170mm Sg826zw [facility] - [id number] Start: 06-26-2022 Screw Spnl Multa xl 6.5x35 Mm For 4.75 Mm Timothy Ats - [id number] Start: 06-26-2022 Screw Spnl Multa xl 6.5x40 Mm For 4.75 Mm Timothy Ats - [id number] Start: 06-26-2022 Graft Bne Sub W1 xl5cm Posterolateral Cerv Demin Bne Mtrx - [id number] Start: 06-26-2022 Endcap Spnl 25c H31mm Od25mm Ti Co Chrome Nit E Exp T2 - [id number] Start: 05-05-2023 Screw Spnl L35mm Od8mm Ti Canc Ant Thorlum Pedcl St Fix Ang - [id number] Start: 05-05-2023 Plate Spnl L5cm Std Ant Thor Ti [place] - [id number] Start: 05-05-2023 Plate Bne 16 H Craniomaxillofacial Ti Str Lo Prof W/O Bar - [id number] Start: 05-05-2023 Comment on above: Description: Implanted into rib Clinical Notes 11-10-2021 to 12-13-2023 aVishali De La Vega - 12/13/2023 10:30 AM Vickie Aviles PT - 12/13/2023 10:30 AM [facility]yer [employer] - 12/05/2023 11:15 AM EDTTelephone Allen - Sri Johnson - 11/28/2023 4:51 PM EDT Note Date & Type Note Facility 12-13-2023 History of Present illness Narrative Physical Therapy [facility] Inpatient/Observation/Outpatient Rehabilitation Date: 12/13/2023 Patient Name: Kayleen Pete [] Inpatient Acute/Observation [x] Outpatient : 1995 [facility] Inpatient/Observation/Outpatient Rehabilitation Date: 12/13/2023 Patient Name: Kayleen Esvin Pete [] Inpatient Acute/Observation [] Outpatient : 1995 Plan of Care/Recert ends [x] Pt no showed for scheduled appointment [] As a reminder, pt was contacted/attempted contact via phone of upcoming appointments. [] Pt refused/declined therapy at this time due to: [] Pt cancelled due to: [] No Reason Given [] Sick/ill [] Other: [] Evaluation held by RN/Provider due to: [] High Heart Rate [] High Blood Pressure [] Orthopedic Consult [] Hgb < 7 [] Other: [] Pt does not require skilled services due to: Therapist/Skip Tracer will attempt to see this patient, at our earliest opportunity. Vaishali De La Vega Date: 12/13/2023 Plan of Care/Recert ends [facility] Inpatient/Observation/Outpatient Rehabilitation Date: 12/13/2023 Patient Name: Kayleen Pete [] Inpatient Acute/Observation [x] Outpatient : 1995 [x] Pt no showed for scheduled appointment [x] As a reminder, pt was contacted via phone of upcoming appointment 12/19/23 at 10:45am. [] Pt refused/declined therapy at this time due to: [] Pt cancelled due to: [] No Reason Given [] Sick/ill [] Other: [] Evaluation held by RN/Provider due to: [] High Heart Rate [] High Blood Pressure [] Orthopedic Consult [] Hgb < 7 [] Other: [] Pt does not require skilled services due to: Therapist/Skip Tracer will attempt to see this patient, at our earliest opportunity. Vickie Feng, PT, DPT Date: 12/13/2023 documented in this encounter [facility] 12-05-2023 History of Present illness Narrative Physical Therapy [facility] Inpatient/Observation/Outpatient Rehabilitation Date: 12/05/2023 Patient Name: Kayleen Pete [] Inpatient Acute/Observation [x] Outpatient : 1995 [] Pt no showed for scheduled appointment [] As a reminder, pt was contacted/attempted contact via phone of upcoming appointments. [] Pt refused/declined therapy at this time due to: [x] Pt cancelled due to: [] No Reason Given [] Sick/ill [x] Other: Can't make it [] Evaluation held by RN/Provider due to: [] High Heart Rate [] High Blood Pressure [] Orthopedic Consult [] Hgb < 7 [] Other: [] Pt does not require skilled services due to: Therapist/Skip Tracer will attempt to see this patient, at our earliest opportunity. Lawyer Rivera Date: 12/05/2023 documented in this encounter [facility] 11-28-2023 Telephone encounter Note Per appt desk, Patient is scheduled for 01/09/2024 Sri Johnson [facility] 11-28-2023 Miscellaneous Notes Per appt desk, Patient is scheduled for 01/09/2024 Sri Johnson Tangela Paula APRN.ISAAC has recommended Patient schedule a follow-up appointment (in-office) with Dr. Benedict. Called Patient-no answer. Left voicemail asking she call the [facility] at [phone] to schedule. Message also sent via [employer] Sri Johnson documented in this encounter [facility] 11-20-2023 Telephone encounter Note Tangela Paula APRN.CNP has recommended Patient schedule a follow-up appointment (in-office) with Dr. Benedict. Called Patient-no answer. Left voicemail asking she call the [facility] at [phone] to schedule. Message also sent via [employer] Sri Johnson [facility] 11-20-2023 Instructions Tangela Paula APRN.ISAAC - 11/20/2023 12:22 PM EDT Will wean off baclofen and add tizanidine. Baclofen decreased to 15mg and start tizanidine at 1mg 4 times per day as needed. If you notice blood pressure gets too low then stop the tizanidine. Will try lactulose for constipation on your bowel days. I will reach out to your PT office to see which brace you needed. documented in this encounter [facility] 11-17-2023 Note HNO ID: [id number] Author: TANGELA PAULA APRN.ISAAC Service: ? Author Type: Nurse Practitioner Type: Progress Notes Filed: 11/21/2023 08:31 Note Text: I have communicated my name and active licensure. The patient's identity and physical location were verified at the time of this visit. Either the patient or their legal payable representative has been informed of the risks and benefits of -- and alternatives to -- treatment through a remote evaluation and consents to proceed with the evaluation remotely. November 17, 2023 Reason for visit: Patient presents with: New Patient Previous Visit: HPI (brief) Kayleen Pete is a 28 year old ambidextrous female. 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 She was diagnosed with fracture of L1 with T11-L3 fixation and L1-2 decompression Wheelchair bound. Had surgery in [place] and then was transferred to [facility]. HOSPITAL COURSE: Kayleen Pete is a 26 y.o. female who was admitted on 06/26/2022 Hospital Course: Txr from [facility] for T12 and L1 fx with decreased power and paresthesia. Pt has hx of seizures, previously well controlled. Seizure 06/25 evening, fall while getting out of car 06/26: severe cauda equina secondary to T12 fx. OR for open reduction L1, arthrodesis T11-3, L1 corpectomy w/ decompression of thecal sac, 500cc EBL - hgb 11.9(14.2) 06/27: keflex for UTI, started Rony, tachy, EKG 06/28: fent for breakthrough pain. increase neurontin. replace mag. start ketamine gtt. PMR consult 06/30: dc ketamine. decrease fent. valium. dc flexeril. Pt stated depressed, wants psych consult (not placed) 07/01: seen by [facility], started seroquel 07/07: STI screen, f/u Subjective: Patient presents with: New Patient SCI injury back from June 2022. Following her hospitalization she was discharged to [facility]. Currently doing outpatient therapy, states that her therapist told her she needs a hyperextension brace order. She is in aqua therapy and physical therapy. Practicing sit to stand with walker. Denies any pressure injuries and has cushions on chair. Lives with boyfriend who is helpful in providing assistance for showering and household needs. States she has been having issues with constipation. Takes 2 senna daily and still having issues with impaction/constipation. She also feels like the baclofen is not working well. She is not wanting injections or botox at this time. Neuro: -SCI: June 27, 2022 fracture of L1 with T11-L3 fixation and L1-2 decompression. Diagnosed with Cauda equina syndrome. Function: -Self care: helps with showering but is independent for most anything she is able to reach. -Mobility: wheelchair bound -Falls: Has had 3 falls since injury. Denies any injuries. Weakness: Bilateral lower extremity weakness. Pain:: Pain legs, knees, ankle joints, hip and back pain. Describes as a sharp stabbing, burning, shock pain. Pain intermittent. Aggravating factors include sitting in wheel chair for too long. Allevating factors include laying down. Ibuprofen, medical marijuanna. Has been using baclofen but does not feel it is helpful. Does not want to back injections. Has also been on tizanidine in the past. Unsure if it was helpful, she believes it was when she initially had her injury. Nausea: Does get nauseous at times. Has PRN zofran prescription. Sleep: Needs to get a sleep study done. Wakes up frequently during the night. Was previously using melatonin. Now using OTC Jet asleep. Feels she gets some sleep with the jet asleep. Emotional/Psychosocial Skin: Denies any pressure injuries. Bowel: Constipation issues. Bladder: oxybutin is very helpful. Has urinary sensation. Feels she empties completely. Autonomic dysfunction -Dysreflexia: Denies any symptoms Assistive devices -Wheelchair - Slide board transfers Orthosis -Lower limb: Needs knee bracing. Uses AFO on left foot. Recent labs/Imaging related to complaint: MRI Lumbar Spine 09/22/23 IMPRESSION: 1. REDEMONSTRATION OF POSTERIOR FIXATION HARDWARE BETWEEN T11 AND L3, REMAINS IN GROSSLY ANATOMIC ALIGNMENT ACCOUNTING FOR ARTIFACT 2. SIGNIFICANT METALLIC ARTIFACT IN THE REGION OF L1 PRECLUDES ANY VISUALIZATION OF VERTEBRAL BODY AND CENTRAL CANAL IN THIS REGION 3. OUTSIDE OF THIS REGION UNREMARKABLE THORACOLUMBAR SPINE Medications Reviewed oxybutynin ER (DITROPAN XL) 10 mg 24 hr tablet Take 10 mg by mouth once daily. pregabalin (LYRICA) 300 mg capsule Take 300 mg by mouth two times a day. QUEtiapine (SEROQUEL) 100 mg tablet Take 100 mg by mouth daily at bedtime. lamoTRIgine (LAMICTAL) 100 mg tablet Take 100 mg by mouth two times a day. busPIRone (BUSPAR) 15 mg tablet Take 30 mg by mouth two times a day. sertraline (ZOLOFT) 25 mg tablet Take 25 mg by mouth once daily. traMADol 100 mg TM24 Take 100 mg by mouth once daily. traMA (more content not included)... [facility] 11-17-2023 History of Present illness Narrative I have communicated my name and active licensure. The patient's identity and physical location were verified at the time of this visit. Either the patient or their legal payable representative has been informed of the risks and benefits of -- and alternatives to -- treatment through a remote evaluation and consents to proceed with the evaluation remotely. November 17, 2023 Reason for visit: Patient presents with: New Patient Previous Visit: HPI (brief) Kayleen Pete is a 28 year old ambidextrous female. 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 She was diagnosed with fracture of L1 with T11-L3 fixation and L1-2 decompression Wheelchair bound. Had surgery in [place] and then was transferred to [facility]. HOSPITAL COURSE: Kayleen Pete is a 26 y.o. female who was admitted on 06/26/2022 Hospital Course: Txr from [facility] for T12 and L1 fx with decreased power and paresthesia. Pt has hx of seizures, previously well controlled. Seizure 06/25 evening, fall while getting out of car 06/26: severe cauda equina secondary to T12 fx. OR for open reduction L1, arthrodesis T11-3, L1 corpectomy w/ decompression of thecal sac, 500cc EBL - hgb 11.9(14.2) 06/27: keflex for UTI, started Rony, tachy, EKG 06/28: fent for breakthrough pain. increase neurontin. replace mag. start ketamine gtt. PMR consult 06/30: dc ketamine. decrease fent. valium. dc flexeril. Pt stated depressed, wants psych consult (not placed) 07/01: seen by [facility], started seroquel 07/07: STI screen, f/u Subjective: Patient presents with: New Patient SCI injury back from June 2022. Following her hospitalization she was discharged to [facility]. Currently doing outpatient therapy, states that her therapist told her she needs a hyperextension brace order. She is in aqua therapy and physical therapy. Practicing sit to stand with walker. Denies any pressure injuries and has cushions on chair. Lives with boyfriend who is helpful in providing assistance for showering and household needs. States she has been having issues with constipation. Takes 2 senna daily and still having issues with impaction/constipation. She also feels like the baclofen is not working well. She is not wanting injections or botox at this time. Neuro: -SCI: June 27, 2022 fracture of L1 with T11-L3 fixation and L1-2 decompression. Diagnosed with Cauda equina syndrome. Function: -Self care: helps with showering but is independent for most anything she is able to reach. -Mobility: wheelchair bound -Falls: Has had 3 falls since injury. Denies any injuries. Weakness: Bilateral lower extremity weakness. Pain:: Pain legs, knees, ankle joints, hip and back pain. Describes as a sharp stabbing, burning, shock pain. Pain intermittent. Aggravating factors include sitting in wheel chair for too long. Allevating factors include laying down. Ibuprofen, medical marijuanna. Has been using baclofen but does not feel it is helpful. Does not want to back injections. Has also been on tizanidine in the past. Unsure if it was helpful, she believes it was when she initially had her injury. Nausea: Does get nauseous at times. Has PRN zofran prescription. Sleep: Needs to get a sleep study done. Wakes up frequently during the night. Was previously using melatonin. Now using OTC Jet asleep. Feels she gets some sleep with the jet asleep. Emotional/Psychosocial Skin: Denies any pressure injuries. Bowel: Constipation issues. Bladder: oxybutin is very helpful. Has urinary sensation. Feels she empties completely. Autonomic dysfunction -Dysreflexia: Denies any symptoms Assistive devices -Wheelchair - Slide board transfers Orthosis -Lower limb: Needs knee bracing. Uses AFO on left foot. Recent labs/Imaging related to complaint: MRI Lumbar Spine 09/22/23 IMPRESSION: 1. REDEMONSTRATION OF POSTERIOR FIXATION HARDWARE BETWEEN T11 AND L3, REMAINS IN GROSSLY ANATOMIC ALIGNMENT ACCOUNTING FOR ARTIFACT 2. SIGNIFICANT METALLIC ARTIFACT IN THE REGION OF L1 PRECLUDES ANY VISUALIZATION OF VERTEBRAL BODY AND CENTRAL CANAL IN THIS REGION 3. OUTSIDE OF THIS REGION UNREMARKABLE THORACOLUMBAR SPINE Medications Reviewed oxybutynin ER (DITROPAN XL) 10 mg 24 hr tablet Take 10 mg by mouth once daily. pregabalin (LYRICA) 300 mg capsule Take 300 mg by mouth two times a day. QUEtiapine (SEROQUEL) 100 mg tablet Take 100 mg by mouth daily at bedtime. lamoTRIgine (LAMICTAL) 100 mg tablet Take 100 mg by mouth two times a day. busPIRone (BUSPAR) 15 mg tablet Take 30 mg by mouth two times a day. sertraline (ZOLOFT) 25 mg tablet Take 25 mg by mouth once daily. traMADol 100 mg TM24 Take 100 mg by mouth once daily. traMADol 25 mg tablet Take 25 mg by mouth two times a day. ondansetron (ZOFRAN) 4 mg tablet Take 4 mg by mouth every 8 hours as needed for nausea/vomiting. tiZANidine (ZANAFLEX) 2 mg tablet Take 0.5 tablets by mouth every 6 hours as needed. baclofen 15 mg tablet Take 1 tablet by mouth three times a day. OARRS reviewed to confirm/clarify any controlled medications Allergies Reviewed PAST MEDICAL HISTORY: There is no problem list on file for this patient. No past surgical history on file. family history is not on file. Review of systems as noted, reviewed, and documented on intake section. Physical Exam: There were no vitals filed for this visit. General: no acute distress. Awake, alert. Cardiopulmonary: unlabored breathing. Appears well perfused Skin: Visualized areas are warm, dry, no jaundice IMPRESSION: Kayleen Pete is a 28 year old female. PMHx of epilepsy and SCI: fracture of L1 with T11-L3 fixation and L1-2 decompression. Virtual visit today, new pt to PMR. She is still having pain and spasms. She has been on baclofen but does not feel it is helpful. She also has been having issues with constipation. (K59.00) Constipation, unspecified constipation type (primary encounter diagnosis) (M43.25) Fusion of spine of thoracolumbar region (R53.1) Weakness (R25.2) Spasticity There is no problem list on file for this patient. [facility] on 11/17/23 CONSULT TO PHYSICAL MEDICINE AND REHABILITATION ASSESSMENT & PLAN: ASSESSMENT/PLAN: 1. Paraplegia (HCC) - ICD9: 344.1, ICD10: G82.20 (primary diagnosis) - continue to work with PT, Will reach out to her office to see which brace she needs. 2. Fusion of spine of thoracolumbar region - ICD9: 724.9, ICD10: M43.25 - will have her follow up with Dr. Benedict 3. Weakness - ICD9: 780.79, ICD10: R53.1 4. Constipation, unspecified constipation type - ICD9: 564.00, ICD10: K59.00 - continue with senna two tablets at bedtime. - Discussed using suppositories but was against it. - Will start lactulose on bowel days. 5. Spasticity - ICD9: 781.0, ICD10: R25.2 - Was on baclofen 20mg TID. Doesn't feel it is helpful. - Will decrease baclofen to 15mg and add tizanidine 1mg every 6 hours as needed. - Discussed botox but she is not wanting to start injections. Tangela Paula APRN.ISAAC During our face to face clinical encounter we discussed my concerns neurologically in terms of diagnosis, impact on health and activities of living, and addressed questions. I tried to reassure the patient and also address questions. I explained to the patient to call if any questions, to review results, and follow-up as instructed or as needed. Patient verbalizes understanding and I have addressed concerns and questions at this visit Patient has my contacts, educational material provided, and my chart sign up. After visit summary discussed. I spent a total of 45 minutes on the date of the service which included preparing to see the patient, [id number] patient care, completing clinical documentation, performing a medically appropriate examination, counseling and educating the patient/family/caregiver, ordering medications, tests, or procedures and communicating results to the patient/family/caregiver. Tangela Paula APRN.ISAAC Physical Medicine & Rehab [facility] documented in this encounter [facility] 11-02-2023 History of Present illness Narrative [facility] Inpatient/Observation/Outpatient Rehabilitation Date: 11/02/2023 Patient Name: Kayleen Pete [] Inpatient Acute/Observation [x] Outpatient : 1995 [x] Pt cancelled due to: [x] No Reason Given [] Sick/ill [] Other: Unable to make it today. Therapist/Skip Tracer will attempt to see this patient, at our earliest opportunity. Dilcia Lee, AC/DC REWINDER [id number] Date: 11/02/2023 documented in this encounter [facility] 10-02-2023 Miscellaneous Notes Call made to patient to discuss image review. Reviewed imaging with Dr. Harrison. Per Dr. Harrison- CT shows solid fusion. MRI Lumbar shows no significant spinal canal stenosis or nerve compression. Nothing to do from surgical standpoint. Will consult PMR Dr. Roth due to being parapeligic documented in this encounter [facility] 09-28-2023 History of Present illness Narrative [facility] Outpatient Physical Therapy Daily Note Patient: Kayleen Pete : 1995 CSN #: [id number] Referring Physician: Deb Colon APRN - * Date: 09/28/2023 Diagnosis: cauda equina compression G83.4, pseudoarthrosis of lumbar spine S32.009k, complete paraplegia G82.21 Treatment Diagnosis: General weakness Onset Date: 05/08/22 PT Insurance Information: [facility] Total # of Visits Approved: 24 Per Physician Order Total # of Visits to Date: 16 No Show: 1 Canceled Appointment: 9 09/08/23 Plan of Care/Recert Due Pre-Treatment Pain: 5/10 Subjective: Pt reports increased soreness in L LB since last session, thinks she just may have overdone it. 5/10 pain in L LB Exercises: Exercise 1: HEP: glut sets, bridges, hip adduction pillow squeeze, LAQ, marching, sidelying clamshells, heel slides Exercise 16: w/c push ups 3 x 3 Exercise 19: seated glute sets, LAQ, marches, ankle pumps 1x15, 1x10 ea - AA L LE eccentric as able. Exercise 20: Supine: PNF (man resist as able), bridges, hip abd/ add, heel slides, marches x10 ea; sidelying clamshells and hip abd/ext x10 Shanell from therapist -no sidelying today Manual: Soft Tissue Mobilizaton: manual stretches to LLE and manual STM to L calf to reduce tightness Assessment Assessment: Pt completed seated and supine ther ex requiring Min A with LLE for increased ROM. Limited progressions today due to pt c/o increased soreness in L LB since last session with pt admitting that she thinks she may have overdone it. Applied HP to L LB while completing supine exercises and manual stretching to LLE to reduce tightnessand discomfort. Manual STM to L calf due to increased tightness with pt reporting relief. Pt sylvain to complete 3x3 wheelchair pushups today with SBA and good pt tolerance to activity. Rest breaks provided between exercises due to fatigue. Will continue to progress Activity Tolerance Activity Tolerance: Patient tolerated treatment well, Patient limited by fatigue, Patient limited by pain Patient Education Patient Education: HEP, importance of stretching Pt verbalized/demonstrated good understanding: [x] Yes [] No, pt required further clarification. Post Treatment Pain: 11/09 Plan Plan Frequency: 2x/wk Plan weeks: 4 weeks Goals (Total # of Visits to Date: 16) Short Term Goals Time Frame for Short Term Goals: 3 weeks Short Term Goal 1: Pt will initiate HEP in supine and sitting to improve B LE strength.-met Short Term Goal 2: Pt will initiate aquatic therapy for standing and BLE strengthening-met Short Term Goal 3: Patient to be able to complete sit/stand from w/c with modAx1 and FWW with no vc's for technique to improve mobility.-progressing Residential Goals Time Frame for Distribution Supervisor Goals : 6 weeks Distribution Supervisor Goal 1: pt will be safe and independent with her HEP Residential Goal 2: Pt will be able to stand with bearing weight with LRAD on both legs for >/=15 minutes to increase BLe strength Distribution Supervisor Goal 3: Pt will increase L LE strength to be able to move through full active ROM in water Distribution Supervisor Goal 4: Pt will be able to take 5 steps in the water with min assistance with no LOB or fatigue to improve functional mobility. Minutes Tracking: Time In: 1038 Time Out: 1117 Minutes: 39 Timed Code Treatment Minutes: 38 Minutes Madyson Davila PTA Date: 09/28/2023 documented in this encounter [facility] 2023 Note HNO ID: [id number] Author: TU CANTU RT(R) Service: ? Author Type: Technologist Type: Progress Notes Filed: 2023 15:44 Note Text: Radiology Service Progress Note PATIENT NAME: Kayleen Pete DATE OF SERVICE: 2023 TIME: 3:42 PM PATIENT IDENTITY VERIFICATION COMPLETED USING TWO (2) IDENTIFIERS: Name and Date of confirmed by patient verbally and Name and Date of confirmed by identification band. FALL SCREENING: Has the patient had 2 falls in the last year or 1 fall with injury or currently using an Ambulatory Assistive Device (Walker, Cane, Wheelchair, Crutches, etc.)? No PATIENT GENDER DATA: Female. status: : No status: NO. PATIENT RELEVANT IMPLANT DATA REVIEWED: Not Applicable PATIENT PRESENTS WITH AN IMPLANTABLE OR ATTACHED MINE CAPTAIN: No RADIOLOGY DEPARTMENT: General X-ray: Exam(s) Completed: Spine X-Ray(s): Thoracic and Lumbar AP / LAT / L5-S1 PERIPHERAL IV DATA: Not applicable SIGNED BY: RT Carlota(R) 2023 3:42 PM [facility] 2023 Miscellaneous Notes Radiology Service Progress Note PATIENT NAME: Kayleen Pete DATE OF SERVICE: 2023 TIME: 4:16 PM PATIENT IDENTITY VERIFICATION COMPLETED USING TWO (2) IDENTIFIERS: Name and Date of confirmed by patient verbally and Name and Date of confirmed by identification band. FALL SCREENING: Has the patient had 2 falls in the last year or 1 fall with injury or currently using an Ambulatory Assistive Device (Walker, Cane, Wheelchair, Crutches, etc.)? Yes, Patient High Risk for Falls What interventions were put in place to prevent falls during this visit? Yellow Falls Risk Wristband Applied, Instructed Patient to Call for Help if Needed, Offered Assistance with Transfers/Clothing, Instructed Patient to Remain Seated (Not on Exam Table) Until Exam, and Increased Observations by Caregivers PATIENT GENDER DATA: Female. status: : No status: NO. PATIENT RELEVANT IMPLANT DATA REVIEWED: Yes PATIENT PRESENTS WITH AN IMPLANTABLE OR ATTACHED MINE CAPTAIN: No RADIOLOGY DEPARTMENT: MR; Exam(s) Completed: Spine: Thoracic spine and Lumbar spine PERIPHERAL IV DATA: Not applicable SIGNED BY: RT Hilton(R) 2023 4:16 PM documented in this encounter [facility] 2023 History of Present illness Narrative Radiology Service Progress Note PATIENT NAME: Kayleen Pete DATE OF SERVICE: 2023 TIME: 3:42 PM PATIENT IDENTITY VERIFICATION COMPLETED USING TWO (2) IDENTIFIERS: Name and Date of confirmed by patient verbally and Name and Date of confirmed by identification band. FALL SCREENING: Has the patient had 2 falls in the last year or 1 fall with injury or currently using an Ambulatory Assistive Device (Walker, Cane, Wheelchair, Crutches, etc.)? No PATIENT GENDER DATA: Female. status: : No status: NO. PATIENT RELEVANT IMPLANT DATA REVIEWED: Not Applicable PATIENT PRESENTS WITH AN IMPLANTABLE OR ATTACHED MINE CAPTAIN: No RADIOLOGY DEPARTMENT: General X-ray: Exam(s) Completed: Spine X-Ray(s): Thoracic and Lumbar AP / LAT / L5-S1 PERIPHERAL IV DATA: Not applicable SIGNED BY: RT Carlota(Roland) 2023 3:42 PM documented in this encounter [facility] 09-21-2023 History of Present illness Narrative [facility] Outpatient Physical Therapy Daily Note Patient: Kayleen Pete : 1995 CSN #: [id number] Referring Physician: Deb Colon APRN - * Date: 09/21/2023 Treatment Diagnosis: General weakness Onset Date: 05/08/22 PT Insurance Information: [facility] Total # of Visits Approved: 24 Per Physician Order Total # of Visits to Date: 15 No Show: 1 Canceled Appointment: 09/08/23 Plan of Care/Recert Due Pre-Treatment Pain: 09/09 Subjective: Pt reports compliance with HEP with progress noted. Pt reports L knee and hip bother her with WB and active movement. Exercises: Exercise 1: HEP: glut sets, bridges, hip adduction pillow squeeze, LAQ, marching, sidelying clamshells, heel slides Exercise 16: w/c push ups x 5 Exercise 17: Sit to stand x2 Exercise 18: Quadruped with Shanell from therapist - cat/cow, SL hip ext 10x ea Exercise 19: seated glute sets, LAQ, marches, ankle pumps 1x15, 1x10 ea - AA L LE eccentric as able. Exercise 20: Supine: PNF (man resist as able), bridges, hip abd/ add, heel slides, marches x10 ea; sidelying clamshells and hip abd/ext x10 Shanell from therapist Modality: MHP applied to low back in conjunction with supine therex. Assessment Assessment: Pt completed seated ther ex with Min A from therapist for increased ROM. Pt able to complete sit/stand from w/c with modAx1 and FWW x2. Pt able to stand 45 seconds with second stand at FWW. Continue to progress per tolerance. Activity Tolerance Activity Tolerance: Patient tolerated treatment well, Patient limited by fatigue, Patient limited by pain Patient Education Patient Education: HEP, importance of stretching Pt verbalized/demonstrated good understanding: [x] Yes [] No, pt required further clarification. Post Treatment Pain: 3/10 - L knee Plan Plan Frequency: 2x/wk Plan weeks: 4 weeks Goals (Total # of Visits to Date: 15) Short Term Goals Time Frame for Short Term Goals: 3 weeks Short Term Goal 1: Pt will initiate HEP in supine and sitting to improve B LE strength.-met Short Term Goal 2: Pt will initiate aquatic therapy for standing and BLE strengthening-met Short Term Goal 3: Patient to be able to complete sit/stand from w/c with modAx1 and FWW with no vc's for technique to improve mobility.-progressing Distribution Supervisor Goals Time Frame for Distribution Supervisor Goals : 6 weeks Distribution Supervisor Goal 1: pt will be safe and independent with her HEP Distribution Supervisor Goal 2: Pt will be able to stand with bearing weight with LRAD on both legs for >/=15 minutes to increase BLe strength Residential Goal 3: Pt will increase L LE strength to be able to move through full active ROM in water Residential Goal 4: Pt will be able to take 5 steps in the water with min assistance with no LOB or fatigue to improve functional mobility. Minutes Tracking: Time In: 1015 Time Out: 1100 Minutes: 45 Timed Code Treatment Minutes: 44 Minutes Maria Del Rosario Martinez PTA Date: 09/21/2023 documented in this encounter [facility] 09-14-2023 History of Present illness Narrative [facility] Inpatient/Observation/Outpatient Rehabilitation Date: 09/14/2023 Patient Name: Kayleen Pete [] Inpatient Acute/Observation [x] Outpatient : 1995 [x] Pt no showed for scheduled appointment Tool Lapper Hand attempted to contact patient via phone, no answer. Voicemail was left to encourage patient to schedule further appointments since today was the last PT tx scheduled. Dilcia Lee, AC/DC REWINDER [id number] Date: 09/14/2023 documented in this encounter [facility] 08-29-2023 History of Present illness Narrative [facility] Inpatient/Observation/Outpatient Rehabilitation Date: 08/29/2023 Patient Name: Kayleen Pete [] Inpatient Acute/Observation [x] Outpatient : 1995 [x] Pt cancelled due to: [] No Reason Given [x] Sick/ill [] Other: Tool Lapper Hand contacted patient via phone, she reports she called and cancelled her appointment earlier in the day. Patient is getting over influenza currently. Dilcia Lee PTA [id number] Date: 08/29/2023 documented in this encounter [facility] 08-10-2023 History of Present illness Narrative [facility] Outpatient Physical Therapy Daily Note Patient: Kayleen Pete : 1995 CSN #: [id number] Referring Physician: Deb Colon APRN - * Date: 08/10/2023 Diagnosis: cauda equina compression G83.4, pseudoarthrosis of lumbar spine S32.009k, complete paraplegia G82.21 Treatment Diagnosis: General weakness Onset Date: 05/08/22 PT Insurance Information: [facility] Total # of Visits Approved: 24 Per Physician Order Total # of Visits to Date: 14 No Show: 0 Canceled Appointment: 7 09/08/23 Plan of Care/Recert Due Pre-Treatment Pain: 5-6/10 Subjective: pt reports 5-6/10 LBP prior to treatment. Reports she is able to move her L LE more and more at home, compliant with HEP. Exercises: Exercise 1: HEP: glut sets, bridges, hip adduction pillow squeeze, LAQ, marching, sidelying clamshells, heel slides Exercise 2: aq: 3# ankle weights donned to assist with keeping LE's from floating and bilateral arm floats Exercise 4: aq: Semi deep water walking fwd 3 laps + 2 laps. Lateral walking x2 laps, backwards x 2 laps--SBA. Exercise 5: aq: Semi deep sink therex x 12-15 B LE with B UE support Exercise 6: aq: Semi deep step ups x 10 R LE, x 5 L LE with moderate use of UE's--SBA Exercise 7: aq: Bench manual HS stretch, gastroc and soleus stretches 30 x 3 each Exercise 8: aq: STS x 10 with 1 UE support and SBA Assessment Assessment: Continued to progress aquatic routine this date as tolerated. Patient able to complete routine with 85% standing/walking this date with 2 seated rest breaks during tx. Patient is completing 95% of aquatics with SBA with arm floats and 3# L LE donned (very minimal need for therapist to assist with balance this date). Patient demonstrating improved tolerance to pool therapy and improved ability to maintain posture and control of LE's. Patient tolerating increased standing activities and less rest breaks. pt able to complete 10 STS with SBA this date, without rest break. Initiated backwards walking with SBA x 2 laps. pt reported 5/10 LBP and bilateral knee pain following tx. Will continue to progress as tolerated. Activity Tolerance Activity Tolerance: Patient tolerated treatment well, Patient limited by fatigue, Patient limited by pain Patient Education Patient Education: HEP, importance of stretching Pt verbalized/demonstrated good understanding: [x] Yes [] No, pt required further clarification. Post Treatment Pain: 5/10 LBP and bilateral knee's Plan Plan Frequency: 2x/wk Plan weeks: 4 weeks Goals (Total # of Visits to Date: 14) Short Term Goals Time Frame for Short Term Goals: 3 weeks Short Term Goal 1: Pt will initiate HEP in supine and sitting to improve B LE strength.-met Short Term Goal 2: Pt will initiate aquatic therapy for standing and BLE strengthening-met Short Term Goal 3: Patient to be able to complete sit/stand from w/c with modAx1 and FWW with no vc's for technique to improve mobility.-progressing Distribution Supervisor Goals Time Frame for Distribution Supervisor Goals : 6 weeks Residential Goal 1: pt will be safe and independent with her HEP Residential Goal 2: Pt will be able to stand with bearing weight with LRAD on both legs for >/=15 minutes to increase BLe strength Residential Goal 3: Pt will increase L LE strength to be able to move through full active ROM in water Residential Goal 4: Pt will be able to take 5 steps in the water with min assistance with no LOB or fatigue to improve functional mobility. Minutes Tracking: Time In: 1032 Time Out: 1119 Minutes: 47 Timed Code Treatment Minutes: 44 Minutes Dilcia Lee, AC/DC REWINDER [id number] Date: 08/10/2023 documented in this encounter [facility] 07-28-2023 Note HNO ID: [id number] Author: ARPAN CUELLO APRN.WELT [employer] Service: ? Author Type: Nurse Practitioner Type: Progress Notes Filed: 07/28/2023 13:57 Note Text: SPINE SURGERY OUTPATIENT CONSULT VIRTUAL VISIT This is a virtual visit using [employer]ino[employer] Video Visit. It required patient-provider interaction for the medical decision making as documented below. SERVICE DATE: 07/28/2023 PCP: No primary care provider on file. REFERRING PROVIDER: Earline Khan APRN, WELT BUTTER HAND [address] [place] [id number] Consult requested for an opinion regarding the evaluation and treatment of back pain. My final impression and recommendations will be communicated back to the requesting physician by way of the shared medical record or letter via US mail. PERI Pete is a 27 year old female presenting alone. CHIEF COMPLAINT: Mid/Low Back Pain, Leg Pain HISTORY OF PRESENT ILLNESS Patient has epilepsy. Had a fall during epileptic event which caused L1 compression fracture with cord compression. Previous T11-L3 PSF with L1 corpectomy at [facility] 06/26/2022. 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 Had to have a revision due to rib removal with protrusion into lung cavity. Presents for a 2nd opinion. C/o mid/low back pain L>R that radiates into bilateral lower extremities (buttock, hip, posterior thigh) L>R. Subjective weakness in both legs, L>R. Aggravated with movement. Alleviated with laying down. Has not walked since prior to injury in 2021- waist down. Uses a wheelchair. Conservative Management -Physical Therapy -[facility] 2x week -Lyrica 300mg BID -Baclofen 20mg TID -Buspar 15mg TID -Tramadol 100mg in the morning, 50mg afternoon, 50mg at bedtime -NSAIDS- Ibuprofen -Heat Therapy -Ice Therapy -Scheduled to see pain management in August PRECIPITATING EVENT: Injury at home. DURATION OF SYMPTOMS: Greater Than 1 Year PAIN EVALUATION 07/21/2023 1035 Pain Level: 7 Pain Location: Back-Lower Description: Aching;Burning;Numbness;Radiating; Sharp;Shooting;Sore;Spasm;Stabbing ;Surgical/No t Incision;Throbbing;Tightness Duration Amount of Time: 24 Duration Units: Hours Frequency: Intermittent Intervention/Comfort measure: Medication;Reposition;Relaxation;E motional Support/Reassurance;Massage;Music; Positioning;Rocking/holding Comments: It hurts so badly. I cant even sit in my wheelchair longer than 2-3 hours right now and even then im in so much pain Pain Radiation: down the right and left thigh Aggravating Factors: Flexion, Extension, Rotation Alleviating Factors: Lying supine Pain Ratio: Pain in the back is greater than in the leg DERMATOMAL DISTRIBUTION: Not applicable AMBULATORY STATUS: Minimal Ambulation/Wheelchair Bound ANTIPLATELET OR ANTICOAGULATION STATUS: No PREVIOUS SPINAL SURGERY: None There is no problem list on file for this patient. No past medical history on file. No past surgical history on file. No family history on file. ALLERGIES Not on File MEDICATIONS: No prescriptions on file. REVIEW OF SYSTEMS: GENERAL: No weight loss or malaise MUSCULOSKELETAL: Negative for joint pain, swelling or muscle pain NEURO: No history of headaches, syncope, paralysis, seizures or tremors Patient Entered Questionnaires Spine Questions 07/21/2023 Pain Location: Lower back Pain Duration: 1 to 5 years Pain over last 6 months: Every day or nearly every day in the past 6 months Symptoms from neck/cervical spine: No Employment Status: Disabled due to back pain, permanently or temporarily Off work 1 month or more due to back/neck pain: Yes Applied for/receive disability/WC due to low back/neck pain Yes Involved in law suit/legal claim: No PROMIS Score Percentiles Physical Health 07/21/2023 Physical Function Percentile 4 Sleep Percentile 1 Fatigue Percentile 2 Pain Interference Percentile 0 PROMIS SOCIAL ROLE SCORE 07/21/2023 Social Role Satisfaction Percentile 1 PROMIS Global Health Scale 07/21/2023 Physical Health Percentile 1 Mental Health Percentile 0 Percentiles provide an indication of how the patient's score ranks in relation to the general population. Higher percentile rankings indicate better function/quality of life. 50th percentile is the average of the general population and indicates half of respondents had a worse score. Depression Screening: PHQ-9 07/21/2023 Score 13 PHQ-9 Self-harm Question 07/21/2023 Thoughts that you would be better off , or of hurting yourself in some way 0 PHQ-9 Self-Harm (Item 9) response options: 0 Not at all 1 Several days 2 More than half the days 3 Nearly every day PHQ-9 Levels: 0-4 No to mild depression 5-9 Mild depression 10-14 Moderate depression 15-19 Moderately severe depression 20-27 Severe depression OBJECTIVE: PHYSICAL EXAM There were no vitals taken for this visit. GENERAL (more content not included)... [facility] 07-20-2023 History of Present illness Narrative [facility] Inpatient/Observation/Outpatient Rehabilitation Date: 07/20/2023 Patient Name: Kayleen Pete [] Inpatient Acute/Observation [x] Outpatient : 1995 [x] Pt cancelled due to: [] No Reason Given [x] Sick/ill [] Other: Therapist/Skip Tracer will attempt to see this patient, at our earliest opportunity. Dilcia Lee, AC/DC REWINDER [id number] Date: 07/20/2023 documented in this encounter [facility] 07-13-2023 Note HNO ID: [id number] Author: ANNELISE GRUBER PA-C Service: ? Author Type: Physician Skip Tracer Type: Progress Notes Filed: 07/13/2023 15:44 Note Text: Per Triage: Kayleen Pete is a 27 year old female that requests evaluation of spine. Per review, they have symptoms of thoracic and lumbar pain. Bilateral leg pain, L>R. Difficulty walking - uses a WC. Numbness from hips down to feet. Weakness in legs L>R Request: 1st available Referring provider: Earline Khan APRN.[employer]'s Patient out of state: no 2nd opinion: no Prior spine surgery: yes 05/05/2023 - Lateral transthoracic L1 corpectomy and discectomy at T12-L1 and L1-L2 Anterior arthrodesis at T12 and L2 Implantation of expandable titanium lumbar corpectomy cage Lateral fixation with titanium plate and screws 06/26/2022 - -open reduction of unstable L1 fracture, posterolateral arthrodesis at T11-T12, L1-2 and L3, fixation with pedicle screws and rods at T11-T12, L2 and L3, b/l L1 [place] [address] CMT: PT Baclofen Lyrica IBU Advil Pain med Studies (Reports unless indicated) MRI lumbar spine report 05/11/23: The patient is status post L1 corpectomy with placement of a strut graft. There have been thoracolumbar laminectomies with pedicle screw and connecting timothy fixation from T11 to L3. No acute fracture or traumatic subluxation is identified. No significant canal or neural foraminal stenosis is identified. There is mild degenerative disc disease at L4-5. No obvious epidural collection or mass is seen. However, there is paraspinal edema with a partially visualized fluid collection on the left hand side measuring approximately 4.8 x 1.6 cm in diameter on image number 2 of series 5. Thoracic spine xray report 07/03/23: Posterior fixation rods extend from the lower thoracic spine into the lumbar spine. The thoracic spine is in anatomic alignment. No fracture. Disc spaces preserved. Visualized lung unremarkable. Hardware in the lumbar spine appears intact. CT lumbar spine 07/26/22: L1 vertebral body burst fracture status post L1 laminectomy, T11-L3 instrumented posterior fusion. No hardware failure. Soft tissue edema at the surgical site. The spinal canal content is not well evaluated due to imaging technique. If there is consistent concern for epidural collections, MR without/with contrast may be considered. Age indeterminate mild T3, T4 and T11 superior endplate compression deformities. Disposition: Based on triage, recommend patient be scheduled with surgical ABDIRIZAK for eval. Recent surgery locally. Patient should also see rehab medicine provider - Dr Morgan If VV, please advise pt to send or upload relevant outside images prior to appt so they will be available for review during the appt If office visit, please advise pt to hand carry relevant images on CD to the appt so they can be reviewed during the appt Annelise Gruber PA-C [facility] 07-13-2023 Note HNO ID: [id number] Author: ?, ?, ? Service: ? Author Type: ? Type: Progress Notes Filed: 07/13/2023 15:44 Note Text: Patient name: Kayleen Pete Are you being referred by a [facility] Provider or Pain Management Provider at [facility]? No If answer is YES please schedule directly with surgeon, triage does not need to be completed. Is this a self-referral No If not, who is the Referring Provider Earline Khan APRN.ISAAC's office referring the patient to be seen in [facility] for Back pain, hx of spinal surgery; spinal cord injury Is this a 2nd opinion from another spine surgeon? No Were you offered surgery? No MRI/CT/myelogram within 12 months? Yes If NO , please refer to medical spine or PCP to complete above imaging, triage does not need to be completed If YES,? please ask for the name/address of the facility where the MRI/CT/myelogram was completed: [place] [address] [facility]: CT (before surgery) MRI/CT/myelogram viewable in Epic: yes, CT If not, please provide [phone] to fax in imaging reports for review. Also, please inform patient to hand carry imaging disc to appointment. XR (spine) within 12 months: Yes If YES,? please ask for the name/address of the facility where the XR was completed: [address] [address] [address] Sage's patients: Have you had previous EMG/Nerve Conduction Study, Ultrasound, or MRI for these same symptoms? If YES,? please ask for the name/address of the facility where they were completed: Requested provider (First and Last name): any Are you interested in a virtual visit if offered? No 1. Where are you having symptoms related to this visit? Back pain Yes thoracic AND Lumbar Leg pain Yes bilateral, L>R Arm pain No Neck pain No 2. Are you having any of the following symptoms: Difficulty walking Yes uses a WC Numbness Yes hips down to feet Weakness Yes legs, L>R Trouble using your hands? No 3. Have you had any injections or physical therapy in the last 12 months? Yes If YES then please ask for the name/address of the facility where the injections and/or physical therapy was completed PT: [address] , [place] [address] Have you tried any other kinds of non-surgical treatments in the last 12 months? (For example: NSAIDS, muscle relaxants, analgesics, oral steroids, Chiropractor, Acupuncture): Baclofen, Lyrica, Ibuprofen 800 mg, Advil 4. Are you currently taking daily prescribed narcotic medications for your current symptoms (For example Oxycodone, Hydrocodone, Tramadol, Morphine, Other)? Yes 5. Have you had previous spinal surgery for this same symptoms? Yes If YES? please ask for the name of facility/address of where the surgery was completed: 05/05/2023, 06/26/2022 (Thoracic/Lumbar) [place] [address] Additional Comments [phone] [facility] 05-31-2023 Note HPI Staff Kayleen is a 27 year old female presenting to discuss referral Pt had Lumbar surgery in [facility] on 05/05/23 and Discharged on 05/25/23 pt had spinal cord injury. Records requested from [place] on 05/30/23. Concerns: Pt here today would like referral to Pain Management Pt still having a lot of pain. Pt sees surgeon the June 28. Pt has some redness on L side of chest, where chest tube was put in, said stitches are dissolvable, no pus or drainage noted. Pt said it is painful. zofran and ibuprofen History of Present Illness pt presents today for referral to pain management Review of Systems PHQ Score Initial Depression Screen Score: 0 SCORE ROS - Provider Constitutional: no fever, no chills, no sweats, no fatigue Respiratory: no shortness of breath, no cough, no orthopnea, no wheezing. Cardiovascular: no chest pain, no palpitations, no edema. Neurologic: no headache, no dizziness, no numbness, no weakness. back pain since surgery Physical Exam Vitals & Measurements T: 37 ?C(Oral) HR: 110(Peripheral) RR: 18 BP: 110/62 SpO2: 97% HT: 69 in HT: 175.3 cm General: alert, no acute distress ENMT: oral mucosa moist, no pharyngeal erythema or exudate Cardiovascular: regular rate and rhythm, normal peripheral perfusion Respiratory: Lungs CTA, respirations non labored Extremities: no deformity, no trauma Neurological: oriented x 4, LOC appropriate for age, CN II-XII intact, motor strength equal & normal bilaterally, speech normal pt is immobile in wheelchair Assessment/Plan 1. Back pain with history of spinal surgery (M54.9: Dorsalgia, unspecified) pt had recent spinal surgery is in need of referral for pain management. she is unable to travel to [place] to continue pain management there. has follow up with surgeon at the end of June. motrin 800mg refilled and zofran also refilled. Ordered: cephalexin, 500 mg = 1 cap(s), Oral, q12hr, # 20 cap(s), Refills(s) 0, Pharmacy: [facility]/pharmacy #[id number], 175.3, cm, 05/31/23 10:31:00 EST, Height/Length Dosing, 113.3, kg, 03/01/23 9:34:00 EDT, Weight Dosing ibuprofen, 800 mg = 1 tab(s), Oral, TID, # 90 tab(s), Refills(s) 1, [id number], 175.3, cm, 05/31/23 10:31:00 EST, Height/Length Dosing, 113.3, kg, 03/01/23 9:34:00 EDT, Weight Dosing [facility] Internal Ambulatory Referral 2. Paraplegia (G82.20: Paraplegia, unspecified) pt had accident and is now paraplegic in wheelchair Ordered: cephalexin, 500 mg = 1 cap(s), Oral, q12hr, # 20 cap(s), Refills(s) 0, [id number], 175.3, cm, 05/31/23 10:31:00 EST, Height/Length Dosing, 113.3, kg, 03/01/23 9:34:00 EDT, Weight Dosing ibuprofen, 800 mg = 1 tab(s), Oral, TID, # 90 tab(s), Refills(s) 1, [id number], 175.3, cm, 05/31/23 10:31:00 EST, Height/Length Dosing, 113.3, kg, 03/01/23 9:34:00 EDT, Weight Dosing [facility] Internal Ambulatory Referral 3. Pain management (R52: Pain, unspecified) pt requesting referral to [facility] pain management. was seen in [place] for pain management but it's too much for her to travel that far Ordered: cephalexin, 500 mg = 1 cap(s), Oral, q12hr, # 20 cap(s), Refills(s) 0, [id number], 175.3, cm, 05/31/23 10:31:00 EST, Height/Length Dosing, 113.3, kg, 03/01/23 9:34:00 EDT, Weight Dosing ibuprofen, 800 mg = 1 tab(s), Oral, TID, # 90 tab(s), Refills(s) 1, [id number], 175.3, cm, 05/31/23 10:31:00 EST, Height/Length Dosing, 113.3, kg, 03/01/23 9:34:00 EDT, Weight Dosing [facility] Internal Ambulatory Referral 4. Skin infection (L08.9: Local infection of the skin and subcutaneous tissue, unspecified) chest tube incision infected. keflex sent Ordered: [facility] Internal Ambulatory Referral 5. H/O chest tube placement, (Z98.890: Other specified postprocedural states)Other specified postprocedural states pt recently had back surgery, had complications and part of metal plate punctured her lungs. so she had a chest tube for 3 days while in hospital. incision of chest tube is very red and warm to touch., two sutures were removed in office today. will send keflex for infection Ordered: [facility] Internal Ambulatory Referral 6. Vaping-related disorder (U07.0: Vaping-related disorder) consider not vaping Ordered: cephalexin, 500 mg = 1 cap(s), Oral, q12hr, # 20 cap(s), Refills(s) 0, Pharmacy: [facility]/pharmacy #[id number], 175.3, cm, 05/31/23 10:31:00 EST, Height/Length Dosing, 113.3, kg, 03/01/23 9:34:00 EDT, Weight Dosing ibuprofen, 800 mg = 1 tab(s), Oral, TID, # 90 tab(s), Refills(s) 1, Pharmacy: [facility]/pharmacy #[id number], 175.3, cm, 05/31/23 10:31:00 EST, Height/Length Dosing, 113.3, kg, 03/01/23 9:34:00 EDT, Weight Dosing 7. Former smoker (Z87.891: Personal history of nicotine dependence) continue not smokgin Ordered: cephalexin, 500 mg = 1 cap(s), Oral, q12hr, # 20 cap(s), Refills(s) 0, Pharmacy: [facility]/pharmacy #[id number], 175.3, cm, 05/31/23 10:31:00 EST, Height/Length Dosing, 113.3, kg, 03/01/23 9:34:00 EDT, Weight Dosing ibuprof (more content not included)... [facility] Comment on above: Result Comment: Elec tronically Signed By: Earline Koroma.jean\Date and Time Signed: 05/31/23 11:01 EST 03-21-2023 History of Present illness Narrative [facility] Inpatient/Observation/Outpatient Rehabilitation Date: 03/21/2023 Patient Name: Kayleen Pete [] Inpatient Acute/Observation [x] Outpatient : 1995 [x] Pt cancelled due to: [] No Reason Given [] Sick/ill [x] Other: Pt spoke with long term acute care registered nurse stating she was in too much pain to make it to therapy this date. Therapist/Skip Tracer will attempt to see this patient, at our earliest opportunity. Maria Del Rosario Martinez, AC/DC REWINDER Date: 03/21/2023 documented in this encounter [facility] 07-23-2022 History of Present illness Narrative Radiology Service Progress Note PATIENT NAME: Kayleen Pete DATE OF SERVICE: July 23, 2022 TIME: 9:15 AM PATIENT IDENTITY VERIFICATION COMPLETED USING TWO (2) IDENTIFIERS: Name and Date of confirmed by patient verbally. FALL SCREENING: Has the patient had 2 falls in the last year or 1 fall with injury or currently using an Ambulatory Assistive Device (Walker, Cane, Wheelchair, Crutches, etc.)? No PATIENT GENDER DATA: Female. status: : No status: NO. PATIENT RELEVANT IMPLANT DATA REVIEWED: Not Applicable RADIOLOGY DEPARTMENT: CT; Exam(s) Completed: Spine PERIPHERAL IV DATA: Not applicable SIGNED BY: RT Michael(R) July 23, 2022 9:15 AM documented in this encounter [facility] 07-08-2022 History of Present illness Narrative Restricted notes were excluded Images from the original note were not included. PROGRESS NOTE PATIENT NAME: Kayleen Pete DATE: 07/08/2022 HD: # 12 Patient Active Problem List Diagnosis Closed compression fracture of body of L1 vertebra (HCC) Closed fracture of twelfth thoracic vertebra (HCC) Closed unstable burst fracture of first lumbar vertebra (HCC) Complete paraplegia (HCC) Cauda equina compression (HCC) DIAGNOSIS AND PLAN Fall from standing height with cauda equina syndrome s/p L1-2 decompression with T11-L3 fixation - Tylenol 1000 mg every 8 hours -- Ibuprofen 20 mg every 4 hours - Gabapentin 1200 mg every 8 hour -- baclofen 10 mg three times daily - Lamictal 75 mg twice daily (for seizures, neuro had been consulted) - Seroquel 50 mg twice daily - wean narcotics and gabapentin, patient to d/c today at noon - patient can follow up STI panel in [facility] DISPO: acute inpatient rehab at [facility], transport noon SUBJECTIVE Patient seen and examined at the bedside. No acute overnight events. Afebrile. VSS. Patient has no complaints at this time, very somnolent OBJECTIVE VITALS: Vitals: 07/08/22 0430 BP: 124/66 Pulse: 87 Resp: 12 Temp: 97.8 F (36.6 C) SpO2: 98% GENERAL: alert, no distress NEURO: GCS 15 HEENT: Normocephalic atraumatic (Esthela, RN as medical biller coder & nurse aid present to assist in patient positioning): no ulceration or bleeding appreciable externally. No lymphadenopathy. Scant white discharge in vaginal canal, cervix closed, no CMT tenderness, no cervical friability, no vaginal or cervical bleeding. Bimanual examination deferred. LUNGS: Regular rate, no accessory muscle use HEART: normal rate and regular rhythm ABDOMEN: soft, non-tender, non-distended, and no guarding or peritoneal signs present BACK: Posterior spine surgical incision clean, dry, intact, skin jerrica in place, no signs of bleeding or infection. EXTREMITY: Bilateral lower extremities: No gross deformities or cyanosis appreciated. Motor function 0 out of 5 bilaterally. No appreciable muscle flickers at this time which is consistent with previous exams. Bilateral paresthesia in lower extremities, consistent with previous exams. Sensation of pain and temperature present bilaterally. LAB: CBC: No results for input(s): WBC, HGB, HCT, MCV, PLT in the last 72 hours. BMP: Recent Labs 07/06/22 0338 NA 133* K 4.4 CL 100 CO2 23 BUN 19 CREATININE 0.71 GLUCOSE 99 RADIOLOGY: No results found. Attestation signed by Rashad Ascencio MD I personally evaluated the patient and directed the medical decision making with Resident/ABDIRIZAK after the physical/radiologic exam and laboratory values were reviewed and confirmed. Rashad Ascencio MD Comprehensive Nutrition Assessment Type and Reason for Visit: Reassess Nutrition Recommendations/Plan: Continue current diet with Ensure oral supplements at all meals. Encourage/monitor PO intakes as tolerated. Will monitor labs, weights, and plan of care. Malnutrition Assessment: Malnutrition Status: At risk for malnutrition (07/03/22 1133) Context: Acute Illness Findings of the 6 clinical characteristics of malnutrition: Energy Intake: Mild decrease in energy intake Weight Loss: No significant weight loss Body Fat Loss: No significant body fat loss Muscle Mass Loss: No significant muscle mass loss Fluid Accumulation: Moderate to Severe Extremities Can Striper Strength: Not Performed Nutrition Assessment: Pt continues to tolerate an oral diet well with intakes of 50-100% of meals. Pt has also been drinking some of the Ensure supplements. Laast BM 07/06. Labs reviewed. Meds include: Glycolax, Senokot. Nutrition Related Findings: Labs/Meds reviewed. Last BM 07/06. Wound Type: Surgical Incision (to back) Current Nutrition Intake & Therapies: Average Meal Intake: 51-75%, 76-100% Average Supplements Intake: 1-25%, 26-50% ADULT DIET; Regular ADULT ORAL NUTRITION SUPPLEMENT; Breakfast, Lunch, Dinner; Standard High Calorie/High Protein Oral Supplement Anthropometric Measures: Height: 5' 9 (175.3 cm) [place] Body Weight (IBW): 145 lbs (66 kg) Admission Body Weight: 280 lb (127 kg) Current Body Weight: 280 lb (127 kg), 193.1 % IBW. Weight Source: Stated Current BMI (kg/m2): 41.3 BMI Categories: Obese Class 3 (BMI 40.0 or greater) Estimated Daily Nutrient Needs: Energy Requirements Based On: Formula Weight Used for Energy Requirements: Current Energy (kcal/day): 9724-3489 kcals/day Weight Used for Protein Requirements: [place] Protein (g/day): 100 gm pro/day Method Used for Fluid Requirements: Other (Comment) Fluid (ml/day): per MD Nutrition Diagnosis: Inadequate oral intake related to acute injury/trauma as evidenced by intake 26-50%, intake 51-75% (variable PO intakes; need for ONS) Nutrition Interventions: Food and/or Nutrient Delivery: Continue Current Diet, Continue Oral Nutrition Supplement Nutrition Education/Counseling: No recommendation at this time, Education not indicated Coordination of Nutrition Care: Continue to monitor while inpatient Goals: Previous Goal Met: Progressing toward Goal(s) Goals: Meet at least 75% of estimated needs, prior to discharge Nutrition Monitoring and Evaluation: Behavioral-Environmental Outcomes: None Identified Food/Nutrient Intake Outcomes: Food and Nutrient Intake, Supplement Intake Physical Signs/Symptoms Outcomes: Biochemical Data, GI Status, Fluid Status or Edema, Nutrition Focused Physical Findings, Skin, Weight Discharge Planning: Too soon to determine Linsey Alonzo RD, [place] Contact: [phone] Images from the original note were not included. PROGRESS NOTE PATIENT NAME: Kayleen Pete DATE: 07/07/2022 HD: # 11 Patient Active Problem List Diagnosis Closed compression fracture of body of L1 vertebra (HCC) Closed fracture of twelfth thoracic vertebra (HCC) Closed unstable burst fracture of first lumbar vertebra (HCC) Complete paraplegia (HCC) Cauda equina compression (HCC) DIAGNOSIS AND PLAN Fall from standing height with cauda equina syndrome s/p L1-2 decompression with T11-L3 fixation - Tylenol 1000 mg every 8 hours -- Ibuprofen 20 mg every 4 hours - Gabapentin 1200 mg every 8 hour -- baclofen 10 mg three times daily - Lamictal 75 mg twice daily (for seizures, neuro had been consulted) - Seroquel 50 mg twice daily - Roxicodone 5 mg for moderate pain or 10 mg for severe pain every 4 hours. Hx of amphetamine use, discussed judicious use of narcotic medication and risk of relapse with patient. She understands. - DVT Prophylaxis-Lovenox - Appreciate PM&R recommendations - PT/OT DISPO: acute inpatient rehab at [facility] SUBJECTIVE Patient seen and examined at the bedside. No acute overnight events. Afebrile. VSS. Patient has no complaints at this time. Awaiting precertification to his [facility] spinal rehab. Patient states she would like to be checked for STIs. States she has no symptoms, denies dysuria, vaginal pain/discharge/bleeding. States se believes she was exposed and would like to be checked. It was explained to her that this is not related to trauma treatment and that she if she has a high suspicion of STI exposure, then a swab can be performed here but it would need to be followed-up by PCP or [employer]. Informed her that unless she belongs to risk category, HIV and syphilis risk are low and that Gonorrhea and Chlamydia are common curable STIs that can be checked. Patient understands and would like to be checked for Gonorrhea and Chlamydia. Patients state she understood this and will follow-up with primary care once discharged to follow the results of the investigations. Also mentioned she can use [employer] to see results of study. OBJECTIVE VITALS: Vitals: 07/07/22 0930 BP: Pulse: Resp: Temp: 97.4 F (36.3 C) SpO2: GENERAL: alert, no distress NEURO: GCS 15 HEENT: Normocephalic atraumatic (Esthela, RN as medical biller coder & nurse aid present to assist in patient positioning): no ulceration or bleeding appreciable externally. No lymphadenopathy. Scant white discharge in vaginal canal, cervix closed, no CMT tenderness, no cervical friability, no vaginal or cervical bleeding. Bimanual examination deferred. LUNGS: Regular rate, no accessory muscle use HEART: normal rate and regular rhythm ABDOMEN: soft, non-tender, non-distended, and no guarding or peritoneal signs present BACK: Posterior spine surgical incision clean, dry, intact, skin jerrica in place, no signs of bleeding or infection. EXTREMITY: Bilateral lower extremities: No gross deformities or cyanosis appreciated. Motor function 0 out of 5 bilaterally. No appreciable muscle flickers at this time which is consistent with previous exams. Bilateral paresthesia in lower extremities, consistent with previous exams. Sensation of pain and temperature present bilaterally. LAB: CBC: No results for input(s): WBC, HGB, HCT, MCV, PLT in the last 72 hours. BMP: Recent Labs 07/05/22 0545 07/06/22 0338 NA 140 133* K 4.3 4.4 CL 100 100 CO2 29 23 BUN 12 19 CREATININE 0.57 0.71 GLUCOSE 92 99 RADIOLOGY: CT HEAD WO CONTRAST Result Date: 06/26/2022 1. No acute intracranial abnormality. 2. Mucosal thickening with fluid in the left sphenoid sinus. CT CERVICAL SPINE WO CONTRAST Result Date: 06/26/2022 1. Reversal of the cervical lordosis. 2. No acute vertebral body height loss in the cervical spine. MRI THORACIC SPINE WO CONTRAST Result Date: 06/26/2022 Acute burst fracture of L1 with 80% height loss centrally. 1 cm retropulsion of posterior cortex of L1, contributing to severe spinal canal narrowing and moderate spinal cord compression at L1 level. T2 hyperintensity in the conus medullaris, likely related to spinal cord edema. Acute compression fracture at the anterior aspect of the inferior endplate of T12 with 15% height loss. Mild chronic compression deformities of T2, T3 and T4. Injury of the anterior longitudinal ligament at T12-L1 and posterior longitudinal ligament at T12-L1 and L1-2. Posttraumatic changes in the right psoas muscle with hematoma. Critical results were reported to Dr. Church at 3:19 p.m. on June 26, 2022. MRI LUMBAR SPINE WO CONTRAST Result Date: 06/26/2022 Acute burst fracture of L1 with 80% height loss centrally. 1 cm retropulsion of posterior cortex of L1, contributing to severe spinal canal narrowing and moderate spinal cord compression at L1 level. T2 hyperintensity in the conus medullaris, likely related to spinal cord edema. Acute compression fracture at the anterior aspect of the inferior endplate of T12 with 15% height loss. Mild chronic compression deformities of T2, T3 and T4. Injury of the anterior longitudinal ligament at T12-L1 and posterior longitudinal ligament at T12-L1 and L1-2. Posttraumatic changes in the right psoas muscle with hematoma. Critical results were reported to Dr. Church at 3:19 p.m. on June 26, 2022. CT CHEST ABDOMEN PELVIS W CONTRAST Additional Contrast? None Result Date: 06/26/2022 1. Unstable burst fracture at L1 with retropulsion of fracture fragments by 1.3 cm into the spinal canal and severe narrowing of the AP dimension of the spinal canal measuring 2 mm. 2. Mild compression deformity and height loss of T12. 3. Cardiomegaly. 4. Mild dependent atelectasis and respiratory motion. 5. Small midline fat-containing periumbilical hernia. 6. Nonobstructing left-sided renal calculi. No hydronephrosis. The findings were sent to the Radiology Results Communication Center at 10:48 am on 06/26/2022 to be communicated to a licensed caregiver. CT LUMBAR SPINE TRAUMA RECONSTRUCTION Result Date: 06/26/2022 THORACIC SPINE: 1. Partially visualized deformity likely an unstable burst fracture of L1. 2. Deformity and mild compression deformity of T12. 3. No clear evidence for acute fracture or malalignment of the thoracic spine. LUMBAR SPINE: 1. Unstable burst fracture of L1 with retropulsion of fracture fragments by 1.3 cm into the posterior spinal canal. Severe narrowing of the AP dimension of the spinal canal measuring 2 mm. 2. Deformity and mild acute compression deformity of T12. CT THORACIC SPINE TRAUMA RECONSTRUCTION Result Date: 06/26/2022 THORACIC SPINE: 1. Partially visualized deformity likely an unstable burst fracture of L1. 2. Deformity and mild compression deformity of T12. 3. No clear evidence for acute fracture or malalignment of the thoracic spine. LUMBAR SPINE: 1. Unstable burst fracture of L1 with retropulsion of fracture fragments by 1.3 cm into the posterior spinal canal. Severe narrowing of the AP dimension of the spinal canal measuring 2 mm. 2. Deformity and mild acute compression deformity of T12. Thong Aguilar MD 07/07/2022, 10:55 AM Associated attestation - Fatou Hernández MD - 07/07/2022 4:41 PM EST I personally evaluated the patient and directed the medical decision making with Resident/ABDIRIZAK after the physical/radiologic exam and laboratory values were reviewed and confirmed. Fatou Hernández MD [facility] Psychotherapy Note VIKKI Weiner 07/06/2022 1:00 PM Kayleen Pete [id number] Time spent with Patient: 16 Minutes Presenting Patient Report: Therapist returned to pt's room to offer bedside support and process thoughts and emotions. Pt was resting in bed upon therapist's arrival. Therapist provided pt with opportunity to process thoughts and emotions regarding current health situation and future. Therapist and pt processed fear and anxiousness surrounding being in pain and doing physical therapy. Pt did express excitement in being discharged and acknowledged that she would do what she had to do. Pt was able to talk about how she was feeling and other things that were on her mind. Therapist offered positive regard and used active listening to offer emotional support. MSE: Appearance alert, cooperative, mild distress Appetite normal Sleep disturbance Yes Fatigue Yes Loss of pleasure No Impulsive behavior No Speech normal rate, well articulated, and whispered Mood Anxious Affect anxiety Thought Content hopelessness and cognitive distortions Thought Process linear, goal directed, and coherent Associations logical connections Insight Good Judgment Intact Orientation oriented to person, place, time, and general circumstances Memory recent and remote memory intact Attention/Concentration intact Morbid ideation No Suicide Assessment no suicidal ideation (See C-SSRS in flow sheets if suicidal ideations are present) (PCL-5, PHQ-9, MOE-7 available in flow sheets) Assessment: Pt presented as anxious upon therapist entering room and identified having increased fear about being in pain. Pt was able to acknowledge and accept hat she would be in pain when getting stronger while acknowledging she would do what she needed to do. Pt was able to identify getting home to child and dogs as motivators and appeared to relax when given space to process thoughts, feelings, and talk about her dogs. Pt would benefit from support while in inpatient rehab as she is worried about her future. Pt is at risk for developing PTSD due to recent medical trauma and current Acute Stress Disorder. Therapist recommends pt get into mental health therapy as soon as possible to mitigate risks. Screening Scale Results: Conducted on 07/01/22 PCL5: 35 (trauma disorder indicated) GAD7: 21 (Anxiety indicated) PHQ9: 17 (depression indicated) Diagnoses: The following Diagnoses are based on currently available information and may change as additional information becomes available. Acute stress disorder (F43.0) Pt scored a 35 on the PCL5. Pt directly experienced a traumatic medical event. Pt reports intrusive dreams and memories, emotional and physical reactions to memories, some avoidance, difficulty remembering parts of the experience, strong negative beliefs about herself, self-blame, strong negative feelings, loss of interest, feeling distant and cut off from others, difficulty experiencing positive emotions, irritability, hypervigilance, difficulty concentrating and difficulty sleeping. Recommendations / Plan: -Attend virtual meetings as needed/able -Continue psychiatric medication as deemed medically appropriate by trauma team -Follow up with therapist after discharge (pt denied need for list of providers) -Pt is struggling with possible outcomes in terms of mobility, use active listening with pt when she expresses worry -Pt worried about pain with PT, pt would benefit from mental health support while in inpatient rehab Pt interventions: Provided education, Established rapport, Conducted functional assessment, Supportive techniques, Cognitive strategies to target negative thinking including reframing, and Identified maladaptive thoughts Were changes or additions made to the treatment plan today? YES [] NO [x] Noted changes: Images from the original note were not included. PROGRESS NOTE PATIENT NAME: Kayleen Pete DATE: 07/06/2022 HD: # 10 Patient Active Problem List Diagnosis Closed compression fracture of body of L1 vertebra (HCC) Closed fracture of twelfth thoracic vertebra (HCC) Closed unstable burst fracture of first lumbar vertebra (HCC) Complete paraplegia (HCC) Cauda equina compression (HCC) DIAGNOSIS AND PLAN Fall from standing height with cauda equina syndrome s/p L1-2 decompression with T11-L3 fixation DVT Prophylaxis-Lovenox Appreciate PM&R recommendations, acute inpatient rehab [facility] consultation, appreciate recommendations Seroquel 50mg BID Encourage PT/OT participation Pain regiment: - Tylenol 1000 mg every 8 hours -- Ibuprofen 20 mg every 4 hours - Gabapentin 1200 mg every 8 hour -- baclofen 10 mg three times daily - Lamictal 75 mg twice daily - Seroquel 50 mg twice daily - Roxicodone 5 mg for moderate pain or 10 mg for severe pain every 4 hours Dispo: Placement, awaiting [facility] spinal rehab precert SUBJECTIVE Patient seen and examined at the bedside. No acute overnight events. Afebrile. VSS. Patient has no complaints at this time. Awaiting precertification to his [facility] spinal rehab. OBJECTIVE VITALS: Vitals: 07/06/22 0400 BP: 122/62 Pulse: 88 Resp: 17 Temp: 98 F (36.7 C) SpO2: 96% GENERAL: alert, no distress NEURO: GCS 15 HEENT: Normocephalic atraumatic : deferred LUNGS: Regular rate, no accessory muscle use HEART: normal rate and regular rhythm ABDOMEN: soft, non-tender, non-distended, and no guarding or peritoneal signs present BACK: Posterior spine surgical incision clean, dry, intact, skin jerrica in place, no signs of bleeding or infection. EXTREMITY: Bilateral lower extremities: No gross deformities or cyanosis appreciated. Motor function 0 out of 5 to manual resistance bilaterally. No appreciable muscle flickers at this time which is consistent with previous exams. Bilateral dysesthesia, tingling sensation in bilateral lower extremities, consistent with previous exams. LAB: CBC: Recent Labs 07/04/22 0625 WBC 7.7 HGB 9.4* HCT 31.8* MCV 87.6 PLT 467* BMP: Recent Labs 07/04/22 0643 07/05/22 0545 07/06/22 0338 NA 134* 140 133* K 3.7 4.3 4.4 CL 96* 100 100 CO2 29 29 23 BUN 10 12 19 CREATININE 0.48* 0.57 0.71 GLUCOSE 89 92 99 RADIOLOGY: No results found. Adrian Coughlin DO 07/06/2022, 8:17 AM Associated attestation - Fatou Hernández MD - 07/06/2022 11:10 AM EST I personally evaluated the patient and directed the medical decision making with Resident/ABDIRIZAK after the physical/radiologic exam and laboratory values were reviewed and confirmed. Fatou Hernández MD Occupational Therapy Facility/Department: [address] [facility] Occupational Therapy Daily Treatment Note Name: Kayleen Pete : 1995 Date of Service: 07/05/2022 Discharge Recommendations: Patient would benefit from continued therapy after discharge Patient Diagnosis(es): The primary encounter diagnosis was Closed fracture of twelfth thoracic vertebra, unspecified fracture morphology, initial encounter (HCC). Diagnoses of Seizure ([facility]) and Spine disorder were also pertinent to this visit. Past Medical History: has a past medical history of Anxiety, Bipolar 1 disorder (HCC), Depressed, and Thoracic disc disorder. Past Surgical History: has a past surgical history that includes section (05/2018); Tonsillectomy and adenoidectomy; spinal cord decompression (06/26/2022); and Lumbar spine surgery (N/A, 06/26/2022). Treatment Diagnosis: L1 comp fx/corpectomy, T11-12, L2-3 screws/rods, seizure, paraplegia Assessment Performance deficits / Impairments: Decreased functional mobility ;Decreased endurance;Decreased ADL status;Decreased posture;Decreased sensation;Decreased balance;Decreased high-level IADLs Assessment: Pt would benefit from continued acute care and post acute care OT to address above listed deficits. Treatment Diagnosis: L1 comp fx/corpectomy, T11-12, L2-3 screws/rods, seizure, paraplegia Prognosis: Good Activity Tolerance Activity Tolerance: Patient limited by pain;Patient Tolerated treatment well Plan Occupational Therapy Plan Times Per Week: 4x/wk Restrictions Restrictions/Precautions Restrictions/Precautions: Surgical Protocols, Fall Risk, General Precautions, Up as Tolerated, Bed Alarm Required Braces or Orthoses?: No Position Activity Restriction Spinal Precautions: No Bending, No Lifting, No Twisting Other position/activity restrictions: CTLS recs-none, no restrictions , SBP goal <140-160. Subjective General Patient assessed for rehabilitation services?: Yes Family / Caregiver Present: No Diagnosis: L1 comp fx/corpectomy, T11-12, L2-3 screws/rods, seizure, paraplegia Subjective Subjective: 6/10 pain level increasing to 10/10 pain level with activity, extreme pain especially in B/L hips and back General Comment Comments: RN ok'd OT tx. Pt cooperative throughout. Objective SpO2: 97% Safety Devices Type of Devices: All fall risk precautions in place;Call light within reach;Nurse notified;Left in bed Restraints Restraints Initially in Place: No Bed Mobility Training Bed Mobility Training: Yes Overall Level of Assistance: Assist X2;Maximum assistance;Additional time Interventions: Safety awareness training;Manual cues Rolling: Maximum assistance;Assist X2;Additional time Supine to Sit: Assist X2;Maximum assistance;Additional time Sit to Supine: Maximum assistance;Additional time;Assist X2 Scooting: Maximum assistance;Additional time;Assist X1 Balance Sitting: With support (Max assist x2 progressing to max assist x1 sitting EOB 6 min) Standing: (NAUN d/t poor sitting balance) Transfer Training Transfer Training: No ADL Feeding: Independent (able to open containers and feed self) Grooming: Setup;Increased time to complete;Stand by assistance (wash face, brush teeth, brush hair) UE Bathing: Setup;Increased time to complete;Stand by assistance (assist to wash back) LE Bathing: Setup;Increased time to complete;Moderate assistance (assist to wash lower legs and feet) UE Dressing: Setup;Increased time to complete;Stand by assistance (assist to snap, thread arms and tie gown) LE Dressing: Maximum assistance;Setup;Increased time to complete (assist to doff/don footies) Toileting: Setup;Increased time to complete;Maximum assistance (able to wash front of teresa area, assist needed for bottom) Pt in bed upon arrival. Setup at tray table for grooming while waiting for RN to give pain meds. Pt transferred to EOB w/max assist x2 w/increased time d/t pain. Pt sat at EOB for 6 min with max x2 progressing to max x1 with vc's for deep breathing tech w/good carryover. Pt transferred back to supine and boosted up into bed in trendelenburg. HOB elevated and setup for self care (see above for LOF). Pt remained in bed w/call light in reach and bed alarm activated. Activity Tolerance Activity Tolerance: Patient limited by pain;Patient limited by endurance Cognition Overall Cognitive Status: WFL Orientation Overall Orientation Status: Within Functional Limits Orientation Level: Oriented X4 Education Given To: Patient Education Provided: Role of Therapy;Plan of Care;ADL Adaptive Strategies;Transfer Training Education Provided Comments: OT POC, transfer safety, importance of participation in therapy, pursed lip breathing, log roll technique, spinal precautions with fair return. Education Method: Verbal Barriers to Learning: None Education Outcome: Verbalized understanding;Continued education needed AM-PAC Score AM-PAC Inpatient Daily Activity Raw Score: 17 (07/05/221622) AM-PAC Inpatient ADL T-Scale Score : 37.26 (07/05/221622) ADL Inpatient CMS 0-100% Score: 50.11 (07/05/221622) ADL Inpatient [facility] G-Code Modifier : CK (07/05/221622) Goals Short Term Goals Time Frame for Short Term Goals: Pt will by discharge Short Term Goal 1: demo dynamic sitting tolerance unsupported for 6 min+ during func activity at mod Ax1 Short Term Goal 2: demo ADL UB bathing/dressing activity with setup and CGA only Short Term Goal 3: demo ADL LB bathing/dressing activity with setup and mod A using sock-aid/bridal sales consultant Short Term Goal 4: identify 2 non-pharmacological pain-relieving techniques with 1 cue Short Term Goal 5: demo mod Ax1 for all bed mobility using log roll technique PRN and bed rails PRN Therapy Time Individual Concurrent Group Co-treatment Time In 1540 Time Out 1650 Minutes 55 15 min Timed Code Treatment Minutes: 55 Minutes NAILA VENEGAS/Dean Physical Therapy Facility/Department: [address] [facility] Daily treatment note Name: Kayleen Pete : 1995 Date of Service: 07/05/2022 Discharge Recommendations: Patient able to tolerate 3hrs of therapy a day, Patient would benefit from continued therapy after discharge PT Equipment Recommendations Equipment Needed: No Other: CTA Patient Diagnosis(es): The primary encounter diagnosis was Closed fracture of twelfth thoracic vertebra, unspecified fracture morphology, initial encounter ([facility]). Diagnoses of Seizure ([facility]) and Spine disorder were also pertinent to this visit. Past Medical History: has a past medical history of Anxiety, Bipolar 1 disorder ([facility]), Depressed, and Thoracic disc disorder. Past Surgical History: has a past surgical history that includes section (05/2018); Tonsillectomy and adenoidectomy; spinal cord decompression (06/26/2022); and Lumbar spine surgery (N/A, 06/26/2022). Assessment Body Structures, Functions, Activity Limitations Requiring Skilled Therapeutic Intervention: Decreased functional mobility ;Decreased strength;Decreased endurance;Decreased sensation;Decreased balance;Increased pain;Decreased posture Assessment: Pt requirtred maxA x2 for bed mobility, able to tolerate sitting EOB ~6 minsat EOB. pt limited d/t high pain levels this date. Pt would benefit from intensive PT at discharge regain functional independence Therapy Prognosis: Good Decision Making: Medium Complexity Barriers to Learning: none Requires PT Follow-Up: Yes Activity Tolerance Activity Tolerance: Patient limited by pain;Patient limited by endurance Plan Physcial Therapy Plan General Plan: 6-7 times per week Current Treatment Recommendations: Strengthening, ROM, Balance training, Functional mobility training, Transfer training, Endurance training, Wheelchair mobility training, Neuromuscular re-education, Pain management, Home exercise program, Safety education & training, Patient/Caregiver education & training, Equipment evaluation, education, & procurement, Positioning, Therapeutic activities Safety Devices Type of Devices: All fall risk precautions in place, Call light within reach, Nurse notified, Left in bed Restraints Restraints Initially in Place: No Restrictions Restrictions/Precautions Restrictions/Precautions: Surgical Protocols, Fall Risk, General Precautions, Up as Tolerated, Bed Alarm Required Braces or Orthoses?: No Position Activity Restriction Spinal Precautions: No Bending, No Lifting, No Twisting Other position/activity restrictions: CTLS recs-none, no restrictions , SBP goal <140-160. Subjective General Patient assessed for rehabilitation services?: Yes Response To Previous Treatment: Patient with no complaints from previous session. Family / Caregiver Present: No Follows Commands: Within Functional Limits Subjective Subjective: RN and pt agreeable to PT. pt agreeable and pleasant. Pt supine in bed at start of session, c/o R hip pain with moblization, unrated. Cognition Orientation Overall Orientation Status: Within Functional Limits Cognition Overall Cognitive Status: WFL Bed mobility Supine to Sit: Maximum assistance;2 Person assistance Sit to Supine: 2 Person assistance;Maximum assistance Scooting: Maximal assistance Bed Mobility Comments: HOB elevated. Increased time d/t high pain during RLE movement. Transfers Comment: Not assessed d/t paraplegia/poor sitting balance/tolerance Ambulation More Ambulation?: No Stairs/Curb Stairs?: No Balance Posture: Fair Sitting - Static: Poor Sitting - Dynamic: Poor Comments: Pt tolerated 6 minutes sitting on EOB with max A for posterior lean progressing to mod A, with brief periods of min A Supine PROM of BLE x10 knee PF/DF with DF stretch x30s x2, flexion/extension, hip flexion/abduction. Pt c/o pain with end range knee extension of B legs, DF stretch x30s x2 AM-PAC Score AM-PAC Inpatient Mobility Raw Score : 8 (07/05/221616) AM-PAC Inpatient T-Scale Score : 28.52 (07/05/221616) Mobility Inpatient CMS 0-100% Score: 86.62 (07/05/221616) Mobility Inpatient CMS G-Code Modifier : CM (07/05/227) Goals Short Term Goals Time Frame for Short Term Goals: 14 visits Short Term Goal 1: prevent contractures BLEs Short Term Goal 2: bed mob with min A+2 Short Term Goal 3: dangle EOB x 10 minutes with min A+2 Short Term Goal 4: sliding board transfers bed to chair and back with mod A+2 Short Term Goal 5: WC mobility x 25' with SBA+1 Patient Goals Patient Goals : walk Education Patient Education Education Given To: Patient Education Provided: Role of Therapy;Plan of Care;Precautions;Transfer Training;Equipment;Fall Prevention Strategies Education Method: Verbal Barriers to Learning: None Education Outcome: Continued education needed;Verbalized understanding Therapy Time Individual Concurrent Group Co-treatment Time In 1529 Time Out 1609 Minutes 40 Timed Code Treatment Minutes: 23 Minutes Clarissa James PT Physical Medicine & Rehabilitation Progress Note 07/05/2022 10:25 AM CC: Ambulatory and ADL dysfunction due to lumbar spinal cord injury status post open reduction and unstable L1 fracture and an to L3 fusion on 06/26 26-year-old female with history of seizures, asthma, PCOS, chronic hepatitis C, reflux, bipolar disorder, anxiety and previous IV drug abuse admitted 06/26 with paresthesias and weakness lower extremities breakthrough seizures following had loss of consciousness T12-L1 fracture burst fracture L1 with retropulsion of canal narrowing currently on Lovenox for DVT prophylaxis, on Seroquel, multimodal pain medications,- cauda equina syndrome Subjective: Notes unable to move lower extremities. Looking to go to [facility] for rehab ROS: Denies fevers, chills, sweats. No chest pain, palpitations, lightheadedness. Denies coughing, wheezing or shortness of breath. Denies abdominal pain, nausea, diarrhea or constipation. No new areas of joint pain. Denies new areas of numbness or weakness. Denies new anxiety or depression issues. No new skin problems. Rehabilitation: PT: Restrictions/Precautions: Surgical Protocols, Fall Risk, General Precautions Other position/activity restrictions: CTLS recs-none, no restrictions , SBP goal <140-160. Mendoza catheter. O2 NC 1 Lm. Transfers Sit to Stand: Unable to assess Stand to Sit: Unable to assess Bed to Chair: Unable to assess Stand Pivot Transfers: Unable to assess Comment: no active movement, decreased to absent sensation BLEs Ambulation More Ambulation?: No Bed mobility Supine to Sit: 2 Person assistance;Maximum assistance Sit to Supine: Maximum assistance;2 Person assistance Scooting: Maximal assistance;2 Person assistance Bed Mobility Comments: Pt tolerated ~2mins at EOB with MAX x2 assist for sitting balance and Pt crying out in pain needing to return to supine in bed. Transfers Sit to Stand: Unable to assess Stand to Sit: Unable to assess Balance Sitting - Static: Poor Sitting - Dynamic: Poor Comments: Pt tolerated 2mins at EOB MAX A x2 for sitting balance. OT: ADL Feeding: Modified independent , Setup, Increased time to complete Grooming: Setup, Increased time to complete, Modified independent (Oral care seated in bed.) UE Bathing: Setup, Increased time to complete, Supervision (wash face seated in bed. Max A to wash back side lying in bed d/t limited reach.) LE Bathing: Setup, Increased time to complete, Maximum assistance UE Dressing: Setup, Increased time to complete, Minimal assistance (Change gown.) LE Dressing: Dependent/Total Toileting: Setup, Increased time to complete, Maximum assistance Additional Comments: Pt completed supine/sit transfer using log roll technique. Pt fearful of falling causing upper body to be very rigid after transfer. Pt educated on pusred lip breathing technique for pain mgnt with poor return, unable to redirect pt. Pt crying out in pain needing to return to supine in bed. Pt rolled R/L for linen change and wash back. Pt positoned seated in bed to complete simple grooming. Bed mobility Rolling to Left: Maximum assistance Rolling to Right: Maximum assistance Supine to Sit: 2 Person assistance, Maximum assistance Sit to Supine: 2 Person assistance, Maximum assistance Scootin Person assistance, Maximal assistance Bed Mobility Comments: Pt tolerated ~2mins at EOB with MAX x2 assist for sitting balance and Pt crying out in pain needing to return to supine in bed. Rolling R/L for linen change. Log roll technique. ST: Objective: BP 126/83 Pulse 88 Temp 97.5 F (36.4 C) (Oral) Resp 13 Ht 5' 9 (1.753 m) Wt 280 lb (127 kg) LMP (LMP Unknown) SpO2 99% BMI 41.35 kg/m I Body mass index is 41.35 kg/m . I Wt Readings from Last 1 Encounters: 06/26/22 280 lb (127 kg) Temp (24hrs), Av.9 F (36.6 C), Min:97.5 F (36.4 C), Max:98.2 F (36.8 C) GEN: well developed, well nourished, no acute distress HEENT: Normocephalic atraumatic, EOMI, mucous membranes pink and moist CV: RRR, no murmurs, rubs or gallops PULM: CTAB, no rales or rhonchi. Respirations WNL and unlabored ABD: soft, NT, ND, +BS and equal NEURO: A&O x3. S MSK: Movement of the lower extremity patient with decreased sensation lower extremities EXTREMITIES: No calf tenderness to palpation bilaterally. No edema BLEs SKIN: warm dry and intact with good turgor PSYCH: appropriately interactive. Affect WNL. Medications Scheduled Meds: gabapentin 1,200 mg Oral q8h nicotine 1 patch TransDERmal Daily baclofen 10 mg Oral TID QUEtiapine 50 mg Oral BID acetaminophen 1,000 mg Oral 3 times per day ibuprofen 400 mg Oral Q4H melatonin 5 mg Oral Nightly escitalopram 10 mg Oral Daily bisacodyl 10 mg Rectal Daily lamoTRIgine 75 mg Oral BID sennosides-docusate sodium 2 tablet Oral Daily enoxaparin 30 mg SubCUTAneous BID sodium chloride flush 5-40 mL IntraVENous 2 times per day polyethylene glycol 17 g Oral Daily Continuous Infusions: sodium chloride PRN Meds:.oxyCODONE OR oxyCODONE, sodium chloride, sodium chloride flush, ondansetron OR ondansetron Diagnostics: CBC: Recent Labs 07/03/22 0624 07/04/22 0625 WBC 7.0 7.7 RBC 3.42* 3.63* HGB 8.9* 9.4* HCT 29.5* 31.8* MCV 86.3 87.6 RDW 13.4 13.3 PLT 413 467* BMP: Recent Labs 07/03/22 0624 07/04/22 0643 07/05/22 0545 NA 138 134* 140 K 4.0 3.7 4.3 CL 96* 96* 100 CO2 31 29 29 BUN 11 10 12 CREATININE 0.61 0.48* 0.57 BNP: No results for input(s): BNP in the last 72 hours. PT/INR: No results for input(s): PROTIME, INR in the last 72 hours. APTT: No results for input(s): APTT in the last 72 hours. CARDIAC ENZYMES: No results for input(s): CKMB, CKMBINDEX, TROPONINT in the last 72 hours. Invalid input(s): CKTOTAL;3 FASTING LIPID PANEL: Lab Results Component Value Date CHOL 151 12/30/2012 HDL 36 (L) 12/30/2012 TRIG 192 (H) 12/30/2012 LIVER PROFILE: No results for input(s): AST, ALT, ALB, BILIDIR, BILITOT, ALKPHOS in the last 72 hours. I/O (24Hr): Intake/Output Summary (Last 24 hours) at 07/05/2022 1025 Last data filed at 07/05/2022 0900 Gross per 24 hour Intake 240 ml Output -- Net 240 ml Glu last 24 hour No results for input(s): POCGLU in the last 72 hours. No results for input(s): CLARITYU, COLORU, PHUR, SPECGRAV, PROTEINU, RBCUA, BLOODU, BACTERIA, NITRU, WBCUA, LEUKOCYTESUR, YEAST, GLUCOSEU, BILIRUBINUR in the last 72 hours. Impression: Traumatic lumbar spinal cord injury s/p open reduction of unstable L1 fracture and T11-L3 fusion on 06/26 T12 compression fracture Tachycardia Anemia Seizures Asthma PCOS Chronic hepatitis C GERD Bipolar disorder Seroquel Anxiety Previous IV drug use Morbid obesity Pain Roxicodone Recommendations: Diagnosis: Traumatic lumbar spinal cord injury Therapy: Has PT/OT needs Medical Necessity: As above Support: Lives with spouse Rehab Recommendation: Would benefit acute IPR when medically ready-looking to go to [id number] to be started DVT Prophylaxis: Olivia Parkinson MD This note is created with the assistance of a speech recognition program. While intending to generate a document that actually reflects the content of the visit, the document can still have some errors including those of syntax and sound a like substitutions which may escape proof reading. In such instances, actual meaning can be extrapolated by contextual diversion Images from the original note were not included. PROGRESS NOTE PATIENT NAME: Kayleen Pete DATE: 07/05/2022 HD: # 9 Patient Active Problem List Diagnosis Closed compression fracture of body of L1 vertebra (HCC) Closed fracture of twelfth thoracic vertebra (HCC) Closed unstable burst fracture of first lumbar vertebra (HCC) Complete paraplegia (HCC) Cauda equina compression (HCC) DIAGNOSIS AND PLAN Fall from standing height with cauda equina syndrome s/p L1-2 decompression with T11-L3 fixation DVT Prophylaxis-Lovenox Appreciate PM&R recommendations, acute inpatient rehab Trauma recovery center consultation, appreciate recommendations Seroquel 50mg BID Encourage PT/OT participation Pain regiment: - Tylenol 1000 mg every 8 hours -- Ibuprofen 20 mg every 4 hours - Gabapentin 1200 mg every 8 hour -- baclofen 10 mg three times daily - Lamictal 75 mg twice daily - Seroquel 50 mg twice daily - Roxicodone 5 mg for moderate pain or 10 mg for severe pain every 4 hours Dispo: Placement, will send to [facility] spinal rehab Chief Complaint: I am okay SUBJECTIVE Patient seen and examined at the bedside. No acute overnight events. Afebrile. VSS. Patient complaining of hip and back pain, but states that she believes it is due to laying in bed. Reports improvement with recent pain med modifications. Patient has no other complaints at this time. Awaiting placement to spinal rehab. OBJECTIVE VITALS: Vitals: 07/05/22 0400 BP: 127/77 Pulse: 86 Resp: 17 Temp: 98.1 F (36.7 C) SpO2: 95% GENERAL: alert, no distress NEURO: GCS 15 HEENT: Normocephalic atraumatic : deferred LUNGS: Regular rate, no accessory muscle use HEART: normal rate and regular rhythm ABDOMEN: soft, non-tender, non-distended, and no guarding or peritoneal signs present BACK: Posterior spine surgical incision clean, dry, intact, skin jerrica in place, no signs of bleeding or infection. EXTREMITY: Bilateral lower extremities: No gross deformities or cyanosis appreciated. Motor function 0 out of 5 to manual resistance bilaterally. No appreciable muscle flickers at this time which is consistent with previous exams. Bilateral dysesthesia, tingling sensation in bilateral lower extremities, consistent with previous exams. LAB: CBC: Recent Labs 07/03/2224 07/04/22 0625 WBC 7.0 7.7 HGB 8.9* 9.4* HCT 29.5* 31.8* MCV 86.3 87.6 PLT 413 467* BMP: Recent Labs 07/03/22 0624 07/04/22 0643 07/05/22 0545 NA 138 134* 140 K 4.0 3.7 4.3 CL 96* 96* 100 CO2 31 29 29 BUN 11 10 12 CREATININE 0.61 0.48* 0.57 GLUCOSE 92 89 92 RADIOLOGY: No results found. Clement Pierce MD 07/05/2022, 7:16 AM Associated attestation - Angel Potter MD - 07/06/2022 9:22 AM EST I personally evaluated the patient and directed the medical decision making with Resident/ABDIRIZAK after the physical/radiologic exam and laboratory values were reviewed and confirmed. No change in neuro exam. Pending placement for [place] rehab. S. Rashad Potter MD Acute Care Surgery Vape pen found in bed with patient during medication pass. Tool Lapper Hand asked patient if it was a vape pen and patient denied that it was. Tool Lapper Hand explained to patient that she cannot use a vape pen while in the hospital. Patient handed vape pen over and it was locked in medicine cabinet. Images from the original note were not included. PROGRESS NOTE PATIENT NAME: Kayleen Pete DATE: 07/04/2022 HD: # 8 Patient Active Problem List Diagnosis Closed compression fracture of body of L1 vertebra (HCC) Closed fracture of twelfth thoracic vertebra (HCC) Closed unstable burst fracture of first lumbar vertebra (HCC) Complete paraplegia (HCC) Cauda equina compression (HCC) DIAGNOSIS AND PLAN Fall from standing height with cauda equina syndrome s/p L1-2 decompression with T11-L3 fixation DVT Prophylaxis-Lovenox Appreciate PM&R recommendations, acute inpatient rehab Trauma recovery center consultation, appreciate recommendations Seroquel 50mg BID Encourage PT/OT participation Pain regiment: - Tylenol 1000 mg every 8 hours -- Ibuprofen 20 mg every 4 hours - Gabapentin 1200 mg every 8 hour -- baclofen 10 mg three times daily - Lamictal 75 mg twice daily - Seroquel 50 mg twice daily - Roxicodone 5 mg for moderate pain or 10 mg for severe pain every 4 hours Dispo: Placement, precert to begin after off IV pain meds Chief Complaint: I am okay SUBJECTIVE Patient seen and examined at the bedside. No acute overnight events. Afebrile. VSS. Still complaining of bilateral lower leg and back pain. States that baclofen has been working well for her. No other complaints at this time. Application sent to [facility] this AM. OBJECTIVE VITALS: Vitals: 07/04/22 0546 BP: (!) 128/92 Pulse: 90 Resp: 14 Temp: 97.7 F (36.5 C) SpO2: 98% GENERAL: alert, no distress NEURO: GCS 15 HEENT: Normocephalic atraumatic : deferred LUNGS: Regular rate, no accessory muscle use HEART: normal rate and regular rhythm ABDOMEN: soft, non-tender, non-distended, and no guarding or peritoneal signs present EXTREMITY: Bilateral lower extremities: No gross deformities or cyanosis appreciated. Motor function 0 out of 5 to manual resistance bilaterally. No appreciable muscle flickers at this time which is consistent with previous exams. Bilateral dysesthesia, tingling sensation in bilateral lower extremities, consistent with previous exams. LAB: CBC: Recent Labs 07/02/2241107/03/2262307/04/22624 WBC 7.3 7.0 7.7 HGB 9.0* 8.9* 9.4* HCT 30.0* 29.5* 31.8* MCV 87.0 86.3 87.6 PLT 376 413 467* BMP: Recent Labs 12/31/22 0412 01/01/23 0624 NA 134* 138 K 3.7 4.0 CL 95* 96* CO2 29 31 BUN 10 11 CREATININE 0.55 0.61 GLUCOSE 109* 92 RADIOLOGY: No results found. Clement Pierce MD 07/04/2022, 7:33 AM Associated attestation - Angel Potter MD - 07/04/2022 12:07 PM EST I personally evaluated the patient and directed the medical decision making with Resident/ABDIRIZAK after the physical/radiologic exam and laboratory values were reviewed and confirmed. No significant change in neuro exam. Pending spinal cord rehab placement. Chase. Rashad oPtter MD Acute Care Surgery 2034: Messaged contractor general building Trauma Resident Dakota Desir DO about patient complaint that oral pain medication Roxicodone not working. No response or orders. 2146: Second message sent to Dr. Desir regarding the possibility of changing pain medication. 2156: Dr. Desir responded that he looked over patients pain medications and there isnt much more he can give her at this time. 2243: Messaged Dr. Desir again letting him know that patient upset that there is nothing else that we can try. Asked if he would have time to come up and see her. 2330: Asked this time if he was unable to see her then could we try a different oral pain medication. 2348: Dr. Lina Pascual came up to see patient and after speaking with her ordered Baclofen 10mg 3 times per day and discontinued Robaxin Comprehensive Nutrition Assessment Type and Reason for Visit: Initial, RD Nutrition Re-Screen/LOS Nutrition Recommendations/Plan: Continue current diet with Ensure oral supplements at meals. Encourage/monitor PO intakes as tolerated. Will monitor labs, weights, and plan of care. Malnutrition Assessment: Malnutrition Status: At risk for malnutrition (07/03/22 1133) Context: Acute Illness Findings of the 6 clinical characteristics of malnutrition: Energy Intake: Mild decrease in energy intake Weight Loss: No significant weight loss Body Fat Loss: No significant body fat loss Muscle Mass Loss: No significant muscle mass loss Fluid Accumulation: Moderate to Severe Extremities Can Striper Strength: Not Performed Nutrition Assessment: Chart reviewed/pt seen for length of stay. Admitted with back pain s/p seizure and fall. Pt with unstable L1 fracture. S/p ORIF L1 fixation T11-L3 on 06/27. Tolerating an oral diet with a fair appetite. Encouraged intakes of oral supplements. Last BM 06/28. Labs/Meds reviewed. Nutrition Related Findings: Labs/Meds reviewed. Last BM 06/28. Wound Type: Surgical Incision (to back) Current Nutrition Intake & Therapies: Average Meal Intake: 51-75% Average Supplements Intake: 0%, 1-25%, 26-50% ADULT DIET; Regular ADULT ORAL NUTRITION SUPPLEMENT; Breakfast, Lunch, Dinner; Standard High Calorie/High Protein Oral Supplement Anthropometric Measures: Height: 5' 9 (175.3 cm) [place] Body Weight (IBW): 145 lbs (66 kg) Admission Body Weight: 280 lb (127 kg) Current Body Weight: 280 lb (127 kg), 193.1 % IBW. Weight Source: Stated Current BMI (kg/m2): 41.3 BMI Categories: Obese Class 3 (BMI 40.0 or greater) Estimated Daily Nutrient Needs: Energy Requirements Based On: Formula Weight Used for Energy Requirements: Current Energy (kcal/day): 9770-6429 kcals/day Weight Used for Protein Requirements: [place] Protein (g/day): 100 gm pro/day Method Used for Fluid Requirements: Other (Comment) Fluid (ml/day): per MD Nutrition Diagnosis: Inadequate oral intake related to acute injury/trauma as evidenced by intake 26-50%, intake 51-75% (variable PO intakes; need for ONS) Nutrition Interventions: Food and/or Nutrient Delivery: Continue Current Diet, Continue Oral Nutrition Supplement Nutrition Education/Counseling: No recommendation at this time, Education not indicated Coordination of Nutrition Care: Continue to monitor while inpatient Goals: Previous Goal Met: (Goal Set) Goals: Meet at least 75% of estimated needs, prior to discharge Nutrition Monitoring and Evaluation: Behavioral-Environmental Outcomes: None Identified Food/Nutrient Intake Outcomes: Food and Nutrient Intake, Supplement Intake Physical Signs/Symptoms Outcomes: Biochemical Data, GI Status, Fluid Status or Edema, Nutrition Focused Physical Findings, Skin, Weight Discharge Planning: Too soon to determine Linsey Alonzo RD, LD Contact: [phone] Images from the original note were not included. PROGRESS NOTE PATIENT NAME: Kayleen Pete DATE: 07/03/2022 HD: # 7 Patient Active Problem List Diagnosis Closed compression fracture of body of L1 vertebra (HCC) Closed fracture of twelfth thoracic vertebra (HCC) Closed unstable burst fracture of first lumbar vertebra (HCC) Complete paraplegia (HCC) Cauda equina compression (HCC) DIAGNOSIS AND PLAN Fall from standing height with cauda equina syndrome s/p L1-2 decompression with T11-L3 fixation DVT Prophylaxis-Lovenox Appreciate PM&R recommendations, acute inpatient rehab Trauma recovery center consultation, appreciate recommendations Seroquel 50mg BID Encourage PT/OT participation Pain regiment: - Tylenol 1000 mg every 8 hours -- Ibuprofen 20 mg every 4 hours - Gabapentin 900 mg every 8 hour -- Robaxin 750 mg 3 times daily - Lamictal 75 mg twice daily - Seroquel 50 mg twice daily - Roxicodone 5 mg for moderate pain or 10 mg for severe pain every 4 hours Dispo: Placement, precert to begin after off IV pain meds Chief Complaint: I am okay SUBJECTIVE Patient seen and examined at the bedside. No acute overnight events. Afebrile. Normotensive. Patient awoken from sleep upon entering the room. Complaining of hip and back pain, appears to be improved. Denies shortness of breath, chest pain, fever, chills. OBJECTIVE VITALS: Vitals: 07/03/22 0400 BP: 136/67 Pulse: 89 Resp: 17 Temp: 97.6 F (36.4 C) SpO2: 97% GENERAL: alert, no distress NEURO: GCS 15 HEENT: Normocephalic atraumatic : deferred LUNGS: Regular rate, no accessory muscle use HEART: normal rate and regular rhythm ABDOMEN: soft, non-tender, non-distended, and no guarding or peritoneal signs present EXTREMITY: Bilateral lower extremities: No gross deformities or cyanosis appreciated. Motor function 0 out of 5 to manual resistance bilaterally. No appreciable muscle flickers at this time which is consistent with previous exams. Bilateral dysesthesia, tingling sensation in bilateral lower extremities, consistent with previous exams. LAB: CBC: Recent Labs 07/02/22411 WBC 7.3 HGB 9.0* HCT 30.0* MCV 87.0 PLT 376 BMP: Recent Labs 07/01/22 0729 07/02/22411 NA 135 134* K 4.1 3.7 CL 94* 95* CO2 29 29 BUN 9 10 CREATININE 0.46* 0.55 GLUCOSE 106* 109* RADIOLOGY: No results found. Adrian Coughlin DO 07/03/2022, 6:30 AM Associated attestation - Angel Potter MD - 07/03/2022 8:35 PM EST I personally evaluated the patient and directed the medical decision making with Resident/ABDIRIZAK after the physical/radiologic exam and laboratory values were reviewed and confirmed. No significant change in BLE neuro exam. Insurance auth pending. D/c Reji jeter. Chase. Rasahd Potter MD Acute Care Surgery Occupational Therapy Facility/Department: [address] [facility] Occupational Daily Treatment Note Name: Kayleen Pete : 1995 Date of Service: 07/02/2022 Discharge Recommendations: Patient would benefit from continued therapy after discharge Patient Diagnosis(es): The primary encounter diagnosis was Closed fracture of twelfth thoracic vertebra, unspecified fracture morphology, initial encounter (HCC). Diagnoses of Seizure ([facility]) and Spine disorder were also pertinent to this visit. Past Medical History: has a past medical history of Anxiety, Bipolar 1 disorder (HCC), Depressed, and Thoracic disc disorder. Past Surgical History: has a past surgical history that includes section (05/2018); Tonsillectomy and adenoidectomy; spinal cord decompression (06/26/2022); and Lumbar spine surgery (N/A, 06/26/2022). Assessment Performance deficits / Impairments: Decreased functional mobility ;Decreased endurance;Decreased ADL status;Decreased posture;Decreased sensation;Decreased balance;Decreased high-level IADLs Prognosis: Fair Activity Tolerance Activity Tolerance: Patient limited by pain Plan Occupational Therapy Plan Times Per Week: 4x Restrictions Restrictions/Precautions Restrictions/Precautions: Surgical Protocols, Fall Risk, General Precautions Required Braces or Orthoses?: No Position Activity Restriction Spinal Precautions: No Bending, No Lifting, No Twisting Other position/activity restrictions: CTLS recs-none, no restrictions , SBP goal <140-160. Mendoza catheter. O2 NC 1 Lm. Pain assessment: Pt states pain 6/10 at rest, 10/10 during transfers all down spine and B hips. Pain intervention: Repositioned, emotional support. Subjective General Patient assessed for rehabilitation services?: Yes Family / Caregiver Present: No Diagnosis: L1 comp fx/corpectomy, T11-12, L2-3 screws/rods, seizure, paraplegia Safety Devices Type of Devices: All fall risk precautions in place;Call light within reach;Nurse notified;Left in bed Restraints Restraints Initially in Place: No Balance Sitting: With support (Max A x2 seated EOB x2 minutes. Pt crying out in pain unable to maintain seated balance needing to return to supine in bed. Pt fearful of falling.) ADL Grooming: Setup;Increased time to complete;Modified independent (Oral care seated in bed.) UE Bathing: Setup;Increased time to complete;Supervision (wash face seated in bed. Max A to wash back side lying in bed d/t limited reach.) UE Dressing: Setup;Increased time to complete;Minimal assistance (Change gown.) Additional Comments: Pt completed supine/sit transfer using log roll technique. Pt fearful of falling causing upper body to be very rigid after transfer. Pt educated on pusred lip breathing technique for pain mgnt with poor return, unable to redirect pt. Pt crying out in pain needing to return to supine in bed. Pt rolled R/L for linen change and wash back. Pt positoned seated in bed to complete simple grooming. Activity Tolerance Activity Tolerance: Patient limited by pain;Patient limited by endurance Bed mobility Rolling to Left: Maximum assistance Rolling to Right: Maximum assistance Supine to Sit: 2 Person assistance;Maximum assistance Sit to Supine: 2 Person assistance;Maximum assistance Scootin Person assistance;Maximal assistance Bed Mobility Comments: Pt tolerated ~2mins at EOB with MAX x2 assist for sitting balance and Pt crying out in pain needing to return to supine in bed. Rolling R/L for linen change. Log roll technique. Cognition Overall Cognitive Status: WFL Orientation Overall Orientation Status: Within Functional Limits Orientation Level: Oriented X4 Education Given To: Patient Education Provided Comments: OT POC, transfer safety, importance of participation in therapy, pursed lip breathing, log roll technique, spinal precautions with fair return. AM-PAC Score AM-PAC Inpatient Daily Activity Raw Score: 13 (07/02/221620) AM-PAC Inpatient ADL T-Scale Score : 32.03 (07/02/221620) ADL Inpatient CMS 0-100% Score: 63.03 (07/02/221620) ADL Inpatient CMS G-Code Modifier : CL (07/02/221620) Goals Short Term Goals Time Frame for Short Term Goals: Pt will by discharge Short Term Goal 1: demo dynamic sitting tolerance unsupported for 6 min+ during func activity at mod Ax1 Short Term Goal 2: demo ADL UB bathing/dressing activity with setup and CGA only Short Term Goal 3: demo ADL LB bathing/dressing activity with setup and mod A using sock-aid/bridal sales consultant Short Term Goal 4: identify 2 non-pharmacological pain-relieving techniques with 1 cue Short Term Goal 5: demo mod Ax1 for all bed mobility using log roll technique PRN and bed rails PRN Therapy Time Individual Concurrent Group Co-treatment Time In 1043 Time Out 1125 Minutes 42 Timed Code Treatment Minutes: 32 Minutes Pt supine in bed upon therapist arrival. Pleasant and agreeable to therapy. See above for LOF for all tasks. Pt retired to supine in bed at end of session with call light within reach. [facility] Facility/Department: [address] [facility] Daily treatment note Name: Kayleen Pete : 1995 Date of Service: 07/02/2022 Discharge Recommendations: Patient able to tolerate 3hrs of therapy a day, Patient would benefit from continued therapy after discharge PT Equipment Recommendations Equipment Needed: No Other: CTA Patient Diagnosis(es): The primary encounter diagnosis was Closed fracture of twelfth thoracic vertebra, unspecified fracture morphology, initial encounter (HCC). Diagnoses of Seizure (HCC) and Spine disorder were also pertinent to this visit. Past Medical History: has a past medical history of Anxiety, Bipolar 1 disorder ([facility]), Depressed, and Thoracic disc disorder. Past Surgical History: has a past surgical history that includes section (05/2018); Tonsillectomy and adenoidectomy; spinal cord decompression (06/26/2022); and Lumbar spine surgery (N/A, 06/26/2022). Assessment Body Structures, Functions, Activity Limitations Requiring Skilled Therapeutic Intervention: Decreased functional mobility ;Decreased strength;Decreased endurance;Decreased sensation;Decreased balance;Increased pain;Decreased posture Assessment: Pt requirtred maxA x2 for bed mobility, able to tolerate sitting EOB ~2 minsat EOB , c/o severe pain and requested to return to supine.. Pt would benefit from intensive PT at discharge regain functional independence Therapy Prognosis: Good Requires PT Follow-Up: Yes Activity Tolerance Activity Tolerance: Patient limited by pain;Patient limited by endurance Plan Physcial Therapy Plan General Plan: 6-7 times per week Current Treatment Recommendations: Strengthening, ROM, Balance training, Functional mobility training, Transfer training, Endurance training, Wheelchair mobility training, Neuromuscular re-education, Pain management, Home exercise program, Safety education & training, Patient/Caregiver education & training, Equipment evaluation, education, & procurement, Positioning, Therapeutic activities Safety Devices Type of Devices: All fall risk precautions in place, Call light within reach, Nurse notified, Left in bed Restraints Restraints Initially in Place: No Restrictions Restrictions/Precautions Restrictions/Precautions: Surgical Protocols, Fall Risk, General Precautions Required Braces or Orthoses?: No Position Activity Restriction Spinal Precautions: No Bending, No Lifting, No Twisting Other position/activity restrictions: CTLS recs-none, no restrictions , SBP goal <140-160. Mendoza catheter. Subjective General Patient assessed for rehabilitation services?: Yes Response To Previous Treatment: Patient with no complaints from previous session. Family / Caregiver Present: No Follows Commands: Within Functional Limits General Comment Comments: Pt left in bed with call within reach, alarm activated Subjective Subjective: Pt and RN agreeable to PT. Pt alert in bed upon arrival, c/o 6/10 pain in back, but progress to 10/10with mobility. RN aware. Cognition Orientation Overall Orientation Status: Within Functional Limits Orientation Level: Oriented X4 Cognition Overall Cognitive Status: WFL Objective Bed mobility Supine to Sit: 2 Person assistance;Maximum assistance Sit to Supine: Maximum assistance;2 Person assistance Scooting: Maximal assistance;2 Person assistance Bed Mobility Comments: Pt tolerated ~2mins at EOB with MAX x2 assist for sitting balance and Pt crying out in pain needing to return to supine in bed. Transfers Sit to Stand: Unable to assess Stand to Sit: Unable to assess Balance Sitting - Static: Poor Sitting - Dynamic: Poor Comments: Pt tolerated 2mins at EOB MAX A x2 for sitting balance. AM-PAC Score AM-PAC Inpatient Mobility Raw Score : 9 (07/02/221410) AM-PAC Inpatient T-Scale Score : 30.55 (07/02/221410) Mobility Inpatient CMS 0-100% Score: 81.38 (07/02/221410) Mobility Inpatient CMS G-Code Modifier : CM (07/02/221410) Goals Short Term Goals Time Frame for Short Term Goals: 14 visits Short Term Goal 1: prevent contractures BLEs Short Term Goal 2: bed mob with min A+2 Short Term Goal 3: dangle EOB x 10 minutes with min A+2 Short Term Goal 4: sliding board transfers bed to chair and back with mod A+2 Short Term Goal 5: WC mobility x 25' with SBA+1 Patient Goals Patient Goals : walk Education Patient Education Education Given To: Patient Education Provided: Role of Therapy;Plan of Care;Precautions;Transfer Training;Equipment;Fall Prevention Strategies Education Method: Verbal Barriers to Learning: None Education Outcome: Continued education needed;Verbalized understanding Therapy Time Individual Concurrent Group Co-treatment Time In 1049 Time Out 1122 Minutes 33 Timed Code Treatment Minutes: 23 Minutes (co-treat with OT) Ruth Ann Feng PTA Message to primary: patient is rating pain in hip an 8/10 and is crying in pain- can you please come see her Message to primary: patient requesting pain meds. does not have anything due Message to primary: Patient is rating pain in R hip a 01/09, she has had all available meds, can you please address this, thanks! Foot drop boot moved to R foot, pt refusing repositioning Images from the original note were not included. PROGRESS NOTE PATIENT NAME: Kayleen Pete DATE: 07/02/2022 HD: # 6 Patient Active Problem List Diagnosis Closed compression fracture of body of L1 vertebra (HCC) Closed fracture of twelfth thoracic vertebra (HCC) Closed unstable burst fracture of first lumbar vertebra (HCC) Complete paraplegia (HCC) Cauda equina compression (HCC) DIAGNOSIS AND PLAN Fall from standing height with cauda equina syndrome s/p L1-2 decompression with T11-L3 fixation, POD 6 DVT Prophylaxis-Lovenox Appreciate PM&R recommendations, acute inpatient rehab Trauma recovery center consultation, appreciate recommendations Seroquel 50mg BID Encourage PT/OT participation Pain regiment: - Diazepam 5 mg every 6 hours - Gabapentin 900 mg every 8 hours - Lamictal 75 mg twice daily - Seroquel 50 mg twice daily - Roxicodone 5 mg for moderate pain or 10 mg for severe pain every 4 hours - Fentanyl 50 mcg every 8 hours, will continue to wean today Dispo: Placement, precert to begin after off IV pain meds Chief Complaint: I feel ok SUBJECTIVE Patient seen and examined at the bedside. No acute overnight events. Afebrile. Normotensive. Oxygen saturation greater than 95% on 1 L nasal cannula. Patient complaining of bilateral hip and lower extremity pain. Patient has no other complaints at this time. Denies shortness of breath, chest pain, fever, chills. Precertification to inpatient rehab pending ability to wean IV pain medicine. We will attempt to continue to wean today. OBJECTIVE VITALS: Vitals: 07/02/22 0746 BP: 113/63 Pulse: 86 Resp: 12 Temp: 97.6 F (36.4 C) SpO2: 94% GENERAL: alert, no distress NEURO: GCS 15 HEENT: Normocephalic atraumatic : deferred LUNGS: Regular rate, no accessory muscle use HEART: normal rate and regular rhythm ABDOMEN: soft, non-tender, non-distended, and no guarding or peritoneal signs present EXTREMITY: Bilateral lower extremities: No gross deformities or cyanosis appreciated. Motor function 0 out of 5 to manual resistance bilaterally. No appreciable muscle flickers at this time which is consistent with previous exams. Bilateral dysesthesia, tingling sensation in bilateral lower extremities, consistent with previous exams. LAB: CBC: Recent Labs 06/30/22 0409 07/02/22 0412 WBC 11.3 7.3 HGB 9.1* 9.0* HCT 30.2* 30.0* MCV 86.3 87.0 PLT 296 376 BMP: Recent Labs 06/30/22 0409 07/01/22 0729 07/02/22 0412 NA 135 135 134* K 4.5 4.1 3.7 CL 95* 94* 95* CO2 29 BUN 7 9 10 CREATININE 0.53 0.46* 0.55 GLUCOSE 101* 106* 109* RADIOLOGY: No results found. Adrian Coughlin DO 07/02/2022, 8:22 AM Associated attestation - Angel Potter MD - 07/02/2022 12:04 PM EST I personally evaluated the patient and directed the medical decision making with Resident/ABDIRIZAK after the physical/radiologic exam and laboratory values were reviewed and confirmed. Doing well. C/o hip and back pain. Exam unchanged in BLE - tingling without movement Will adjust pain meds. BLE venous duplex negative yesterday. D/c Mendoza. PT/OT. Placement. S. Rashad Potter MD Acute Care Surgery Physical Therapy Facility/Department: [address] [facility] Daily Treatment Note NAME: Kayleen Pete : 1995 Date of Service: 07/01/2022 Brief history from EMR Fall from standing height with cauda equina syndrome s/p L1-2 decompression with T11-L3 fixation, 06/26/2022 Closed compression fracture of body of L1 vertebra Closed fracture of twelfth thoracic vertebra Closed unstable burst fracture of first lumbar vertebra Complete paraplegia Cauda equina compression Discharge Recommendations: Patient able to tolerate 3hrs of therapy a day, Patient would benefit from continued therapy after discharge PT Equipment Recommendations Equipment Needed: No Other: CTA Patient Diagnosis(es): The primary encounter diagnosis was Closed fracture of twelfth thoracic vertebra, unspecified fracture morphology, initial encounter ([facility]). Diagnoses of Seizure ([facility]) and Spine disorder were also pertinent to this visit. Assessment Assessment: training on UE positioning and support for bed mobility with focus on pt initiating log roll, use of external support and directing assist needed in LE movement for positioining with good tolerance and without increased pain. Pt positioned for comfort and pressure relief, foot drop splint placed with Pt and nursing education on wear schedule for pressure relief and prevention of foot drop. Pt will continue to benefit frorm PT to progress activity as indicated and prevent furhter decline. Activity Tolerance: Patient limited by pain;Patient limited by endurance Equipment Needed: No Other: CTA Plan Physcial Therapy Plan General Plan: 6-7 times per week Current Treatment Recommendations: Strengthening;ROM;Balance training;Functional mobility training;Transfer training;Endurance training;Wheelchair mobility training;Neuromuscular re-education;Pain management;Home exercise program;Safety education & training;Patient/Caregiver education & training;Equipment evaluation, education, & procurement;Positioning;Therapeuti c activities Restrictions Restrictions/Precautions Restrictions/Precautions: Surgical Protocols, Fall Risk, General Precautions Required Braces or Orthoses?: No Position Activity Restriction Spinal Precautions: No Bending, No Lifting, No Twisting Other position/activity restrictions: CTLS recs-none, no restrictions , SBP goal <140-160. Mendoza catheter. Subjective Subjective Subjective: Pt awake and alert in agreement with PT intervention, nursing participating in bed change and hygiene while pt participating in bed mobilty with use of external support. Pain: 7/10 pain at rest, pt reports increased pain with mobility Orientation Overall Orientation Status: Within Functional Limits Orientation Level: Oriented X4 Cognition Overall Cognitive Status: WFL Objective Vitals Bed Mobility Training Bed Mobility Training: Yes Overall Level of Assistance: Assist X2;Maximum assistance Interventions: Safety awareness training;Manual cues Rolling: Maximum assistance;Assist X2 Neuromuscular Education Neuromuscular Education: Yes Functional Movement Patterns: training on UE positioning and support for bed mobility with focus on pt initiating log roll, use of external support and directing assist needed in LE movement for positioining with good tolerance and minimal increase in pain Weight Bearing Weight Bearing Technique: No PT Exercises PROM Exercises: BLEs x 10 reps: heel slides, hip ab/adduction, ankle ROM/gastroc stretch, SAQs, hip abd Goals Short Term Goals Time Frame for Short Term Goals: 14 visits Short Term Goal 1: prevent contractures BLEs Short Term Goal 2: bed mob with min A+2 Short Term Goal 3: dangle EOB x 10 minutes with min A+2 Short Term Goal 4: sliding board transfers bed to chair and back with mod A+2 Short Term Goal 5: WC mobility x 25' with SBA+1 Patient Goals Patient Goals : walk Education Patient Education Education Given To: Patient Education Provided: Role of Therapy;Plan of Care;Precautions;Transfer Training;Equipment;Fall Prevention Strategies Education Method: Verbal Barriers to Learning: None Education Outcome: Continued education needed;Verbalized understanding Therapy Time Individual Concurrent Group Co-treatment Time In 1310 Time Out 1400 Minutes 50 Timed Code Treatment Minutes: 40 Minutes Sydney Greenberg PT, DPT Images from the original note were not included. PROGRESS NOTE PATIENT NAME: Kayleen Pete DATE: 07/01/2022 SURGEON: Harshad PRIMARY CARE PHYSICIAN: No primary care provider on file. HD: # 5 ASSESSMENT Patient Active Problem List Diagnosis Closed compression fracture of body of L1 vertebra (HCC) Closed fracture of twelfth thoracic vertebra (HCC) Closed unstable burst fracture of first lumbar vertebra (HCC) Complete paraplegia (HCC) Cauda equina compression (HCC) MEDICAL DECISION MAKING AND PLAN Fall from standing height with cauda equina syndrome s/p L1-2 decompression with T11-L3 fixation, POD 5 - F/u NSG recs DVT Prophylaxis-Lovenox Appreciate PM&R recommendations Trauma recovery center consultatio, appreciate recommendations Encourage PT/OT participation Pain regiment: - Diazepam 5 mg every 6 hours - Gabapentin 900 mg every 8 hours - Lamictal 75 mg twice daily - Seroquel 50 mg twice daily - Roxicodone 5 mg for moderate pain or 10 mg for severe pain every 4 hours - Fentanyl 50 mcg every 6 hours, wean IV pain meds Dispo: Placement Chief Complaint: I did not sleep SUBJECTIVE Kayleen Pete is is unchanged since yesterday. Patient seen and examined at bedside today with complaints that she did not sleep well overnight. She states that she is in constant pain and is anxious about her current situation. I talked with patient regarding having a conversation with our trauma rehabilitation center which she is open to. She denies chest pain, shortness of breath, headaches, vision changes, abdominal pain. BM-, flatus+. OBJECTIVE VITALS: Temp: Temp: 98.5 F (36.9 C)Temp Av.4 F (36.9 C) Min: 98 F (36.7 C) Max: 99 F (37.2 C) BP Systolic (24hrs), Av , Min:116 , Max:138 Diastolic (24hrs), Av, Min:65, Max:83 Pulse Pulse Av.5 Min: 114 Max: 115 Resp Resp Av Min: 14 Max: 20 Pulse ox SpO2 Av.7 % Min: 96 % Max: 97 % GENERAL: alert, no distress NEURO: GCS 15 HEENT: Normocephalic atraumatic : deferred LUNGS: Regular rate no accessory muscle use HEART: normal rate and regular rhythm ABDOMEN: soft, non-tender, non-distended, and no guarding or peritoneal signs present EXTREMITY: Bilateral lower extremities: No gross deformities or cyanosis appreciated. Motor function 0 out of 5 to manual resistance bilaterally. No appreciable muscle flickers at this time which is consistent with previous exams. Bilateral dysesthesias present to the lower extremities which she states has a [id number] feeling this morning. Patient responds to deep palpation of her feet I/O last 3 completed shifts: In: 377 [I.V.:377] Out: 2650 [Urine:2650] Drain/tube output: In: - Out: 1400 [Urine:1400] LAB: CBC: Recent Labs 06/28/22 0844 06/29/22 0649 06/30/22 0409 WBC 13.1* 11.8* 11.3 HGB 9.0* 9.1* 9.1* HCT 29.4* 30.2* 30.2* MCV 86.5 88.3 86.3 PLT 265 261 296 BMP: Recent Labs 06/28/22 0844 06/29/22 0649 06/30/22 0409 NA 134* 134* 135 K 3.7 3.9 4.5 CL 99 98 95* CO2 28 28 30 BUN 6 6 7 CREATININE 0.55 0.52 0.53 GLUCOSE 100* 88 101* COAGS: No results for input(s): APTT, PROT, INR in the last 72 hours. RADIOLOGY: CXR: No results found. Florin Pagan MD 07/01/22, 7:49 AM Associated attestation - Ross Patricia MD - 07/01/2022 5:22 PM EST I personally evaluated the patient and directed the medical decision making with Resident/ABDIRIZAK after the physical/radiologic exam and laboratory values were reviewed and confirmed. ANM Images from the original note were not included. PROGRESS NOTE PATIENT NAME: Kayleen Pete DATE: 06/30/2022 SURGEON: Silva PRIMARY CARE PHYSICIAN: No primary care provider on file. HD: # 4 ASSESSMENT Patient Active Problem List Diagnosis Closed compression fracture of body of L1 vertebra (HCC) Closed fracture of twelfth thoracic vertebra (HCC) Closed unstable burst fracture of first lumbar vertebra (HCC) Complete paraplegia (HCC) Cauda equina compression (HCC) MEDICAL DECISION MAKING AND PLAN Fall from standing height with cauda equina syndrome s/p L1-2 decompression with T11-L3 fixation, POD 4 - F/U neurosurgery recs, on Lamictal 75 mg p.o. twice daily - 0/5 motor with manual resistance bilaterally, dysesthesias to bilateral feet with moderate pressure DVT Prophylaxis - Lovenox Appreciate PM&R recommendations Encourage PT/OT participation Pain regiment: - Diazepam 5 mg p.o. every 6 hours - Ketamine 0.2 mg/kg/h continuous via IV - Roxicodone 5 mg p.o. every 6 hours Chief Complaint: I am in pain SUBJECTIVE Kayleen Pete is is unchanged since yesterday. Patient states she continues to have back pain. She states that her weakness and sensory changes in her lower extremities have not progressed since yesterday. She denies chest pain, shortness of breath, headaches, vision changes, abdominal pain. Last bowel movement was 2 days ago, passing flatus. OBJECTIVE VITALS: Temp: Temp: 98.5 F (36.9 C)Temp Av.2 F (36.8 C) Min: 97.8 F (36.6 C) Max: 99 F (37.2 C) BP Systolic (24hrs), Av , Min:113 , Max:157 Diastolic (24hrs), Av, Min:70, Max:112 Pulse Pulse Av.4 Min: 99 Max: 119 Resp Resp Av Min: 12 Max: 22 Pulse ox SpO2 Av.8 % Min: 92 % Max: 99 % GENERAL: alert, mild distress appearing uncomfortable NEURO: GCS 15 HEENT: Normocephalic, atraumatic : deferred LUNGS: Regular rate, no accessory muscle use HEART: Mildly tachycardic into the 100s ABDOMEN: soft, non-tender, non-distended, and no guarding or peritoneal signs present EXTREMITY: Bilateral lower extremities: No gross deformities or cyanosis appreciated. Motor function 0/5 to manual resistance bilaterally. No appreciable muscle flickers at this time consistent with previous exams. Bilateral dysesthesias present diffusely in the bilateral lower extremities extending proximally over the thighs. Patient responds to deep palpation. I/O last 3 completed shifts: In: 377 [I.V.:377] Out: 2525 [Urine:2400; Drains:125] Drain/tube output: In: 377 [I.V.:377] Out: 1750 [Urine:1700; Drains:50] LAB: CBC: Recent Labs 06/28/22 0844 06/29/22 0649 06/30/22 0409 WBC 13.1* 11.8* 11.3 HGB 9.0* 9.1* 9.1* HCT 29.4* 30.2* 30.2* MCV 86.5 88.3 86.3 PLT 265 261 296 BMP: Recent Labs 06/28/22 0844 06/29/22 0649 06/30/22 0409 NA 134* 134* 135 K 3.7 3.9 4.5 CL 99 98 95* CO2 30 BUN 6 6 7 CREATININE 0.55 0.52 0.53 GLUCOSE 100* 88 101* COAGS: No results for input(s): APTT, PROT, INR in the last 72 hours. RADIOLOGY: CXR: No results found. Florin Pagan MD 06/30/22, 8:08 AM Attestation signed by Rashad Ascencio MD I personally evaluated the patient and directed the medical decision making with Resident/ABDIRIZAK after the physical/radiologic exam and laboratory values were reviewed and confirmed. PMR to eval. Rashad Ascencio MD Dr. Desir rounds and states ok to give Fentanyl 50 mcg order PRN at this time. Tool Lapper Hand perfect serve message Dr. Desir with Trauma and notified patient complains of pain 02/09 and at this time no pain medication available. At this time waiting for response. Occupational Therapy Facility/Department: [address] [facility] Occupational Daily Treatment Note Name: Kayleen Pete : 1995 Date of Service: 06/29/2022 Discharge Recommendations: Patient would benefit from continued therapy after discharge Patient Diagnosis(es): The primary encounter diagnosis was Closed fracture of twelfth thoracic vertebra, unspecified fracture morphology, initial encounter (HCC). Diagnoses of Seizure ([facility]) and Spine disorder were also pertinent to this visit. Past Medical History: has a past medical history of Anxiety, Bipolar 1 disorder (HCC), Depressed, and Thoracic disc disorder. Past Surgical History: has a past surgical history that includes section (05/2018); Tonsillectomy and adenoidectomy; spinal cord decompression (06/26/2022); and Lumbar spine surgery (N/A, 06/26/2022). Assessment Performance deficits / Impairments: Decreased functional mobility ;Decreased endurance;Decreased ADL status;Decreased posture;Decreased sensation;Decreased balance;Decreased high-level IADLs Prognosis: Good Activity Tolerance Activity Tolerance: Patient Tolerated treatment well;Patient limited by pain Plan Occupational Therapy Plan Times Per Week: 4x Restrictions Restrictions/Precautions Restrictions/Precautions: Surgical Protocols, Fall Risk, General Precautions Required Braces or Orthoses?: No Position Activity Restriction Spinal Precautions: No Bending, No Lifting, No Twisting Other position/activity restrictions: CTLS recs-none, no restrictions , SBP goal <140-160. Mendoza catheter. Pain assessment: Pt states pain 8/10 mid back. Pain intervention: Repositioned, emotional support, pursed lip breathing Subjective General Patient assessed for rehabilitation services?: Yes Family / Caregiver Present: No Diagnosis: L1 comp fx/corpectomy, T11-12, L2-3 screws/rods, seizure, paraplegia Safety Devices Type of Devices: All fall risk precautions in place;Call light within reach;Nurse notified;Left in bed Restraints Restraints Initially in Place: No Balance Sitting: With support (Max A x2 seated EOB x1 minute.) ADL Grooming: Setup;Increased time to complete;Modified independent (Oral care seated in bed.) UE Bathing: Setup;Increased time to complete;Supervision (wash face/hands seated in bed.) Additional Comments: Pt completed supine/sit transfer to seated EOB. Pt fearful/tense with multiple verbal cues for pursed lip breathing to relax and for pain mgnt with poor return. Pt able to sit EOB for 1 minute needing to return to supine in bed d/t pain. Pt educated on placing the head of bed in different upright positions to adjust to sitting up, pt verbalized understanding. Pt completed simple grooming seated in bed. Eomotional support and active listening provided to pt with good return. Activity Tolerance Activity Tolerance: Patient limited by pain;Patient limited by endurance Bed mobility Supine to Sit: 2 Person assistance;Maximum assistance Sit to Supine: Maximum assistance;2 Person assistance Scooting: Maximal assistance;2 Person assistance Bed Mobility Comments: Pt crying out in pain needing to return to supine in bed. Cognition Overall Cognitive Status: WFL Orientation Overall Orientation Status: Within Functional Limits Orientation Level: Oriented X4 Education Given To: Patient Education Provided Comments: OT POC, transfer safety, importance of participation in therapy, pursed lip breathing, log roll technique, spinal precautions with fair return. AM-PAC Score AM-PAC Inpatient Daily Activity Raw Score: 15 (06/29/221644) AM-PAC Inpatient ADL T-Scale Score : 34.69 (06/29/221644) ADL Inpatient CMS 0-100% Score: 56.46 (06/29/221644) ADL Inpatient CMS G-Code Modifier : CK (06/29/221644) Goals Short Term Goals Time Frame for Short Term Goals: Pt will by discharge Short Term Goal 1: demo dynamic sitting tolerance unsupported for 6 min+ during func activity at mod Ax1 Short Term Goal 2: demo ADL UB bathing/dressing activity with setup and CGA only Short Term Goal 3: demo ADL LB bathing/dressing activity with setup and mod A using sock-aid/bridal sales consultant Short Term Goal 4: identify 2 non-pharmacological pain-relieving techniques with 1 cue Short Term Goal 5: demo mod Ax1 for all bed mobility using log roll technique PRN and bed rails PRN Therapy Time Individual Concurrent Group Co-treatment Time In 1130 Time Out 1208 Minutes 38 Timed Code Treatment Minutes: 25 Minutes Co tx PT Pt supine in bed upon therapist arrival. Pleasant and agreeable to therapy. See above for LOF for all tasks. Pt retired to supine in bed at end of session with call light within reach. ROLANDA Barkley Physical Therapy Facility/Department: [address] [facility] Physical Therapy Initial Assessment Name: Kayleen Pete : 1995 Date of Service: 06/29/2022 Discharge Recommendations: Further therapy recommended at discharge.The patient should be able to tolerate at least 3 hours of therapy per day over 5 days or 15 hours over 7 days. This patient may benefit from a Physical Medicine and Rehab consult. PT Equipment Recommendations Equipment Needed: No Other: CTA Patient Diagnosis(es): The primary encounter diagnosis was Closed fracture of twelfth thoracic vertebra, unspecified fracture morphology, initial encounter (HCC). Diagnoses of Seizure ([facility]) and Spine disorder were also pertinent to this visit. Past Medical History: has a past medical history of Anxiety, Bipolar 1 disorder (HCC), Depressed, and Thoracic disc disorder. Past Surgical History: has a past surgical history that includes section (05/2018); Tonsillectomy and adenoidectomy; spinal cord decompression (06/26/2022); and Lumbar spine surgery (N/A, 06/26/2022). Assessment Body Structures, Functions, Activity Limitations Requiring Skilled Therapeutic Intervention: Decreased functional mobility ;Decreased strength;Decreased endurance;Decreased sensation;Decreased balance;Increased pain;Decreased posture Assessment: Pt requirtred maxA x2 for bed mobility, able to tolerate sitting EOB ~90 secs before returning to supine d/t pain. Pt would benefit from intensive PT at discharge regain functional independence Therapy Prognosis: Good Requires PT Follow-Up: Yes Activity Tolerance Activity Tolerance: Patient limited by pain;Patient limited by endurance Plan Physcial Therapy Plan General Plan: 6-7 times per week Current Treatment Recommendations: Strengthening, ROM, Balance training, Functional mobility training, Transfer training, Endurance training, Wheelchair mobility training, Neuromuscular re-education, Pain management, Home exercise program, Safety education & training, Patient/Caregiver education & training, Equipment evaluation, education, & procurement, Positioning, Therapeutic activities Safety Devices Type of Devices: Call light within reach, Patient at risk for falls, Left in bed, Nurse notified Restraints Restraints Initially in Place: No Restrictions Restrictions/Precautions Restrictions/Precautions: Surgical Protocols, Fall Risk, General Precautions Required Braces or Orthoses?: No Position Activity Restriction Spinal Precautions: No Bending, No Lifting, No Twisting Other position/activity restrictions: CTLS recs-none, no restrictions , SBP goal <140-160 Subjective Pain: 6/10 pain at rest, pt reports increased pain with mobility General Chart Reviewed: Yes Patient assessed for rehabilitation services?: Yes Response To Previous Treatment: Patient with no complaints from previous session. Family / Caregiver Present: No Follows Commands: Within Functional Limits General Comment Comments: Pt left in bed with call within reach, alarm activated Subjective Subjective: Pt and RN agreeable to PT. Pt alert in bed upon arrival, c/o 6/10 pain in back. Cognition Orientation Overall Orientation Status: Within Functional Limits Orientation Level: Oriented X4 Cognition Overall Cognitive Status: WFL Objective Heart Rate: (!) 104 Heart Rate Source: Monitor SpO2: 99 % O2 Device: Nasal cannula Observation/Palpation Posture: Fair Bed mobility Supine to Sit: Maximum assistance;2 Person assistance Sit to Supine: Maximum assistance;2 Person assistance Scooting: Maximal assistance;2 Person assistance Bed Mobility Comments: pt only able to tolerate EOB ~90 secs before requesting to return to supine secondary to increased pain Transfers Sit to Stand: Unable to assess Comment: no active movement, decreased to absent sensation BLEs Balance Posture: Fair Sitting - Static: Poor Sitting - Dynamic: Poor PROM Exercises: BLEs x 10 reps: heel slides, hip ab/adduction, ankle ROM/gastroc stretch, SAQs, hip abd Static Sitting Balance Exercises: pt able to dangle max A+2 using lift under pt ~90 seconds; limited by back AM-PAC Score [facility] Inpatient Mobility Raw Score : 8 (06/29/221547) [facility] Inpatient T-Scale Score : 28.52 (06/29/221547) Mobility Inpatient CMS 0-100% Score: 86.62 (06/29/221547) Mobility Inpatient CMS G-Code Modifier : CM (06/29/221547) Goals Short Term Goals Time Frame for Short Term Goals: 14 visits Short Term Goal 1: prevent contractures BLEs Short Term Goal 2: bed mob with min A+2 Short Term Goal 3: dangle EOB x 10 minutes with min A+2 Short Term Goal 4: sliding board transfers bed to chair and back with mod A+2 Short Term Goal 5: WC mobility x 25' with SBA+1 Patient Goals Patient Goals : walk Education Patient Education Education Given To: Patient Education Provided: Role of Therapy;Plan of Care;Precautions;Transfer Training;Equipment;Fall Prevention Strategies Education Method: Verbal Barriers to Learning: None Education Outcome: Continued education needed;Verbalized understanding Therapy Time Individual Concurrent Group Co-treatment Time In 1120 Time Out 1150 Minutes 30 Timed Code Treatment Minutes: 23 Minutes Leia Christensen PTA Neurosurgery ABDIRIZAK/Resident Daily Progress Note No chief complaint on file. 06/29/2022 10:49 AM Chart reviewed. No acute events overnight. Patient complains of posterior back pain. No movement to BLE, has slight sensation to touch. Vitals: 06/29/22 0653 06/29/22 0815 06/29/22 0831 06/29/22 0927 BP: 113/74 Pulse: Resp: 20 20 20 Temp: 99 F (37.2 C) TempSrc: Oral SpO2: Weight: Height: PE: AOx3 PERRL, EOMI Motor L deltoid 5/5; R deltoid 5/5 L biceps 5/5; R biceps 5/5 L triceps 5/5; R triceps 5/5 L intrinsics 5/5; R intrinsics 5/5 BLE 0/5 Sensation: slight sensation to BLE, no movement Drain output: drain output 140 in 24 hours. 75 ml in 12 hours. Incision: Surgical dressing clean, dry and intact. Serosanguinous Lab Results Component Value Date WBC 11.8 (H) 06/29/2022 HGB 9.1 (L) 06/29/2022 HCT 30.2 (L) 06/29/2022 PLT 261 06/29/2022 CHOL 151 12/30/2012 TRIG 192 (H) 12/30/2012 HDL 36 (L) 12/30/2012 ALT 22 12/30/2012 AST 18 12/30/2012 NA 134 (L) 06/29/2022 K 3.9 06/29/2022 CL 98 06/29/2022 CREATININE 0.52 06/29/2022 BUN 6 06/29/2022 CO2 28 06/29/2022 TSH 3.47 12/30/2012 INR 1.1 06/26/2022 Radiology No new neurologic A/P 26 y.o. female who presents with unstable L1 fracture. POD#2 s/p ORIF L1 fixation T11-L3 - Continue PT/OT. Will need rehabilitation upon discharge - Continue bowel regimen - Turn and reposition every 2 hours to prevent skin to prevent ulcers - Neuro checks per floor protocol - Lovenox for DVT prophylaxis - Laura for post op pain management - Lumbar XR's spine ordered Please contact neurosurgery with any changes in patients neurologic status. Mary Carmen Crowley CNP 06/29/22 10:49 AM Images from the original note were not included. PROGRESS NOTE PATIENT NAME: Kayleen Pete DATE: 06/29/2022 SURGEON: Betty PRIMARY CARE PHYSICIAN: No primary care provider on file. HD: # 3 ASSESSMENT Patient Active Problem List Diagnosis Closed compression fracture of body of L1 vertebra (HCC) Closed fracture of twelfth thoracic vertebra (HCC) Closed unstable burst fracture of first lumbar vertebra (HCC) Complete paraplegia (HCC) Cauda equina compression (HCC) MEDICAL DECISION MAKING AND PLAN POD 3 from decompression of L1-2 and fixation of T11-L3 s/p FFS Posterior drain with 140mL sanguinous Neurosurgery is following, f/u recs No motor function, sensation to b/l feet with moderate pressure Standing lumbar xrays pending Known seizure disorder Home meds ordered: lamictal Tachycardia EKG sinus tach, unresponsive to 1L bolus given 06/27 Continues 110-120s Diet: regular IVF: no DVT ppx: Lovenox Pain control: MMPT with Fentanyl prn and Ketamine gtt UOP: 0.7mL/kg/hr per Mendoza PT/OT today Labs pending Chief Complaint: doing ok SUBJECTIVE Kayleen Pete is is unchanged since yesterday. She has some sensation to her feet, but still no ability to move her legs. She states that her sensation stops at the level of her hip bone. Her mid back is the area that hurts the worst with 8/10 pain. OBJECTIVE VITALS: Temp: Temp: 98.5 F (36.9 C)Temp Av.9 F (37.2 C) Min: 98.2 F (36.8 C) Max: 100.1 F (37.8 C) BP Systolic (24hrs), Av , Min:110 , Max:127 Diastolic (24hrs), Av, Min:53, Max:81 Pulse Pulse Av.4 Min: 98 Max: 124 Resp Resp Av.7 Min: 11 Max: 26 Pulse ox SpO2 Av.6 % Min: 93 % Max: 100 % GENERAL: alert, no distress NEURO: weakness of bilateral legs, both proximal and distal LUNGS: clear to ausculation, without wheezes, rales or rhonci HEART: normal rate and regular rhythm ABDOMEN: soft, non-tender, non-distended, and no guarding or peritoneal signs present EXTREMITY: no cyanosis, clubbing or edema I/O last 3 completed shifts: In: - Out: 3365 [Urine:3045; Drains:320] Drain/tube output: In: - Out: 3010 [Urine:2800; Drains:210] LAB: CBC: Recent Labs 06/26/22 0721 06/27/22 0142 06/27/22 1613 06/27/22 2227 06/28/22 0535 06/28/22 0844 WBC 24.2* -- 14.1* -- -- 13.1* HGB 14.2 < > 9.9* 9.3* 9.3* 9.0* HCT 44.3 < > 33.0* 30.3* 29.4* 29.4* MCV 83.0 -- 87.1 -- -- 86.5 PLT 393 -- 283 -- -- 265 < > = values in this interval not displayed. BMP: Recent Labs 06/26/22 0721 06/27/22 1613 06/28/22 0844 NA 135 136 134* K 4.1 3.7 3.7 CL 98 101 99 CO2 22 26 28 BUN 9 11 6 CREATININE 0.77 0.60 0.55 GLUCOSE 135* 95 100* COAGS: Recent Labs 06/26/22 0721 APTT 24.7 INR 1.1 Berenice Herrera, 06/27/22, 6:55 AM Attestation signed by Rashad Ascencio MD I personally evaluated the patient and directed the medical decision making with Resident/ABDIRIZAK after the physical/radiologic exam and laboratory values were reviewed and confirmed. No movement in LE. Rashad Ascencio MD Occupational Therapy Occupational Therapy Facility/Department: [address] [facility] Occupational Therapy Initial Assessment Name: Gilda Russell : 03/23/1958 Date of Service: 06/28/2022 Chief Complaint Patient presents with Fall Discharge Recommendations: Patient would benefit from continued therapy after discharge Patient Diagnosis(es): The primary encounter diagnosis was Closed fracture of lumbar vertebra, unspecified fracture morphology, unspecified lumbar vertebral level, initial encounter ([facility]). A diagnosis of Fall, initial encounter was also pertinent to this visit. Past Medical History: has a past medical history of Abnormal ECG, Acute kidney injury ([facility]), Aortic thrombus ([facility]), Arthritis, Bilateral interstitial pneumonia ([facility]), CAD (coronary artery disease), Chronic respiratory failure requiring continuous mechanical ventilation through tracheostomy ([facility]), COPD (chronic obstructive pulmonary disease) ([facility]), Hx of blood clots, Hyperlipidemia, Hypertension, Hypertensive emergency, NSTEMI (non-ST elevated myocardial infarction) ([facility]), Oxygen dependent, Pharyngeal dysphagia, Pneumonia, Pneumonia left side due to infectious organism, and Recurrent pleural effusion. Past Surgical History: has a past surgical history that includes Kidney removal (Left); IR CHEST TUBE INSERTION (03/16/2021); tracheostomy (N/A, 03/22/2021); Cardiac catheterization (01/17/2021); chest tube insertion (Left, 03/2021); thrombectomy (09/23/2021); and Cardiac catheterization (04/29/2022). Assessment Performance deficits / Impairments: Decreased functional mobility ;Decreased endurance;Decreased ADL status;Decreased balance;Decreased high-level IADLs;Decreased posture;Decreased sensation Prognosis: Good Decision Making: High Complexity REQUIRES OT FOLLOW-UP: Yes Activity Tolerance Activity Tolerance: Patient limited by pain Plan Occupational Therapy Plan Times Per Week: 4x Restrictions Restrictions/Precautions Restrictions/Precautions: Surgical Protocols, Fall Risk, General Precautions, Up as Tolerated, Contact Precautions Required Braces or Orthoses?: Yes Required Braces or Orthoses Spinal: Thoracic Lumbar Sacral Orthotics Position Activity Restriction Spinal Precautions: No Bending, No Lifting, No Twisting Other position/activity restrictions: SBP goal <140-160, no restrictions , per Blake Laura from no brace needed via [employer], keep off back Subjective General Patient assessed for rehabilitation services?: Yes Family / Caregiver Present: Yes (Mother stopped by briefly to give pt a xmas present) Diagnosis: L1 comp fx/corpectomy, T11-12, L2-3 screws/rods, seizure, paraplegia Subjective Subjective: 6/10 pain level increasing to 10/10 pain level with activity, extreme pain especially in B/L hips and back General Comments: RN approved OT eval this am, pt cooperative throughout Social/Functional History Social/Functional History Lives With: Spouse Type of Home: House Home Layout: Two level, Able to live on main level Home Access: Stairs to enter with rails Entrance Stairs - Number of Steps: 2 Entrance Stairs - Rails: Both Bathroom Shower/Tub: Walk-in shower Bathroom Toilet: Standard height Home Equipment: None ADL Assistance: Independent Homemaking Assistance: Independent Homemaking Responsibilities: Yes Ambulation Assistance: Independent Transfer Assistance: Independent Active Pbx Operator: Yes 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 Leisure & Hobbies: [employer] Additional Comments: Spouse works 2nd shift Objective SpO2: 95 % O2 Device: Nasal cannula 2L Observation/Palpation Posture: Fair Safety Devices Type of Devices: Call light within reach;Gait belt;Patient at risk for falls;Nurse notified;Left in bed Restraints Restraints Initially in Place: No Bed Mobility Training Bed Mobility Training: Yes Rolling: Maximum assistance;Assist X2 Supine to Sit: Maximum assistance;Assist X2 Sit to Supine: Maximum assistance;Assist X2 (PT did not want to start pt off with log roll technique so therapists elevated pt's HOB and performed a transfer to EOB from this position, major pain especially in pt's hips) Scooting: Total assistance Balance Sitting: Impaired (max A x2, pt screaming in pain, sat EOB for 10 seconds total, immediately returned to bed) Standing: (NAUN) Transfer Training Transfer Training: Yes Sit to Stand: Other (comment) (Not appropriate to attempt this date, paraplegia and extreme back pain) AROM: Within functional limits PROM: Within functional limits Strength: Within functional limits (Shoulders/elbows not tested d/t back sx/pain, 5/5 B/L hand strength) Coordination: Within functional limits Tone: Normal Sensation: Impaired (BLE acute numbness) ADL Feeding: Setup;Increased time to complete;Modified independent Grooming: Modified independent ;Setup;Increased time to complete UE Bathing: Minimal assistance;Setup;Increased time to complete LE Bathing: Setup;Increased time to complete;Maximum assistance UE Dressing: Setup;Increased time to complete;Moderate assistance LE Dressing: Dependent/Total Toileting: Setup;Increased time to complete;Maximum assistance Additional Comments: Pt with good BUE AROM and hand strength, pt requires setup for all ADL's, pt limited d/t complete paraplegia, extreme pain while dangling EOB this date, while supine in bed pt's mother brought in presents and with setup pt opened ~3 tiara presents without difficulty, CTA Activity Tolerance Activity Tolerance: Patient limited by fatigue;Patient limited by pain;Patient limited by endurance (SOB with exertion; increased back pain with mobility) Vision Vision: Impaired Vision Exceptions: Wears glasses at all times Hearing Hearing: Within functional limits Cognition Overall Cognitive Status: WFL Orientation Overall Orientation Status: Within Functional Limits Orientation Level: Oriented X4 Education Given To: Patient Education Provided: Role of Therapy;Plan of Care;Transfer Training Education Provided Comments: avoiding bend/lift/twisting, emotional support provided for pain Education Method: Verbal Barriers to Learning: None Education Outcome: Verbalized understanding;Continued education needed AM-PAC Score AM-PAC Inpatient Daily Activity Raw Score: 15 (06/28/22 114) AM-PAC Inpatient ADL T-Scale Score : 35.96 (06/28/22 1143) ADL Inpatient CMS 0-100% Score: 53.32 (06/28/22 1143) ADL Inpatient CMS G-Code Modifier : CK (06/28/22 114) Goals Short Term Goals Time Frame for Short Term Goals: Pt will by discharge Short Term Goal 1: demo dynamic sitting tolerance unsupported for 6 min+ during func activity at mod Ax1 Short Term Goal 2: demo ADL UB bathing/dressing activity with setup and CGA only Short Term Goal 3: demo ADL LB bathing/dressing activity with setup and mod A using sock-aid/bridal sales consultant Short Term Goal 4: identify 2 non-pharmacological pain-relieving techniques with 1 cue Short Term Goal 5: demo mod Ax1 for all bed mobility using log roll technique PRN and bed rails PRN Therapy Time Individual Concurrent Group Co-treatment Time In 0812 Time Out 0835 Minutes 23 Timed Code Treatment Minutes: 10 Minutes Dl Chakraborty OTR/L Physical Therapy Facility/Department: [address] [facility] Physical Therapy Initial Assessment Name: Kayleen Pete : 1995 Date of Service: 06/28/2022 History copied and pasted from H+P Patient Active Problem List Diagnosis Closed compression fracture of body of L1 vertebra (HCC) Closed fracture of twelfth thoracic vertebra (HCC) Closed unstable burst fracture of first lumbar vertebra (HCC) Complete paraplegia (HCC) Cauda equina compression (HCC) Kayleen Pete is a female that presented to the Emergency Department as a transfer from [place] following the diagnosis of T12, L1 fractures. Patient states that she has had decreased power and paresthesias in the lower limbs bilaterally. Patient denies head injury or neck pain. Patient is endorsing lower back pain. Patient denies visual disturbances, urinary retention, or paresthesias or weakness in the upper limbs. Patient does have a history of seizures, on Lamictal with no recent changes. She states that she typically does get she had seizure-like activity in her sleep. She states that her seizures have been well controlled for months, almost 1 year, however last week she did experience 1 breakthrough seizure. She states that today as she was getting out of a car, she experienced another seizure which was preceded by nausea and vomiting. She states that as she got out of the car she fell, lost consciousness for 10 to 15 seconds as per her friend. Pt underwent Open reduction of unstable L1 fracture Posterolateral arthrodesis at T11-T12 L1-L2 and L3 Segmental fixation with pedicle screws and rods at T11-T12, L2 and L3 Bilateral L1 transpedicular partial corpectomy greater than 50% along with decompression of thecal sac. Discharge Recommendations: In my professional opinion, this patient has the potential to tolerate a total of 3 hours of combined therapies post-acute care. Currently limited by pain PT Equipment Recommendations Equipment Needed: No (defer equipment recommendations to rehab facility) Patient Diagnosis(es): The primary encounter diagnosis was Closed fracture of twelfth thoracic vertebra, unspecified fracture morphology, initial encounter ([facility]). Diagnoses of Seizure ([facility]) and Spine disorder were also pertinent to this visit. Past Medical History: has a past medical history of Anxiety, Bipolar 1 disorder (HCC), Depressed, and Thoracic disc disorder. Past Surgical History: has a past surgical history that includes section (05/2018); Tonsillectomy and adenoidectomy; spinal cord decompression (06/26/2022); and Lumbar spine surgery (N/A, 06/26/2022). Assessment Pt cooperative, poor tolerance to mobility d/t pain, nausea and light headedness; pt pale after mobilizing, but BP WFL. Body Structures, Functions, Activity Limitations Requiring Skilled Therapeutic Intervention: Decreased functional mobility ;Decreased strength;Decreased endurance;Decreased sensation;Decreased balance;Increased pain;Decreased posture Therapy Prognosis: Good Decision Making: High Complexity Requires PT Follow-Up: Yes Activity Tolerance Activity Tolerance: Patient limited by pain Plan Physcial Therapy Plan General Plan: 6-7 times per week Current Treatment Recommendations: Strengthening, ROM, Balance training, Functional mobility training, Transfer training, Endurance training, Wheelchair mobility training, Neuromuscular re-education, Pain management, Home exercise program, Safety education & training, Patient/Caregiver education & training, Equipment evaluation, education, & procurement, Positioning, Therapeutic activities Safety Devices Type of Devices: Call light within reach, Patient at risk for falls, Left in bed Restraints Restraints Initially in Place: No Restrictions Restrictions/Precautions Restrictions/Precautions: Surgical Protocols, Fall Risk, General Precautions, Up as Tolerated Required Braces or Orthoses?: No Position Activity Restriction Spinal Precautions: No Bending, No Lifting, No Twisting Subjective General Patient assessed for rehabilitation services?: Yes Response To Previous Treatment: Not applicable Family / Caregiver Present: No Follows Commands: Within Functional Limits Subjective Subjective: pain 3/10 at rest; 8/10 after mobility: back, hips, legs Social/Functional History Social/Functional History Lives With: Spouse Type of Home: (2 story duplex--father in law lives next door) Home Layout: Two level, Performs ADL's on one level, Able to Live on Main level with bedroom/bathroom (bedroom is upstairs, no bathroom upstairs; pt states she can stay on the first floor) Home Access: Stairs to enter without rails Entrance Stairs - Number of Steps: 3 ALFREDO Entrance Stairs - Rails: None Bathroom Shower/Tub: Walk-in shower Bathroom Toilet: Standard Home Equipment: None ADL Assistance: Independent Homemaking Assistance: Independent Homemaking Responsibilities: Yes Ambulation Assistance: Independent Transfer Assistance: Independent Active Pbx Operator: Yes 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 Leisure & Hobbies: [employer] Additional Comments: Spouse works second shift Vision/Hearing Vision Vision: Within Functional Limits Hearing Hearing: Within functional limits Cognition Orientation Overall Orientation Status: Within Normal Limits Cognition Overall Cognitive Status: WFL Objective Heart Rate: (!) 117 Heart Rate Source: Monitor BP: 127/70 BP Location: Left lower arm BP Method: Automatic Patient Position: Semi fowlers MAP (Calculated): 89 Resp: 12 SpO2: 97 % O2 Device: Nasal cannula Observation/Palpation Posture: Poor PROM RLE (degrees) RLE PROM: WFL PROM LLE (degrees) LLE PROM: WFL AROM RUE (degrees) RUE AROM : WFL AROM LUE (degrees) LUE AROM : WFL Strength RLE Strength RLE: Exception--no active movement noted Strength LLE Strength LLE: Exception--no active movement noted Strength RUE Strength RUE: WFL Strength LUE Strength LUE: WFL Bed mobility Supine to Sit: Dependent/Total;2 Person assistance (using pryor lift under pt--pt's body completely supported) Sit to Supine: Dependent/Total;2 Person assistance Scooting: Dependent/Total;2 Person assistance Bed Mobility Comments: pt only able to tolerate dangling 10-15 seconds with A+2--dependent; limited by pain Transfers Sit to Stand: Unable to assess Stand to Sit: Unable to assess Bed to Chair: Unable to assess Stand Pivot Transfers: Unable to assess Comment: no active movement, decreased to absent sensation BLEs (feels pressure, unable to localize; feels pain in hips and behind knees ) Ambulation More Ambulation?: No Stairs/Curb Stairs?: No Balance Posture: Poor Sitting - Static: Poor Sitting - Dynamic: Poor PROM Exercises: BLEs x 10 reps: heel slides, hip ab/adduction, ankle ROM/gastroc stretch Static Sitting Balance Exercises: pt able to dangle dependent with A+2 using lift under pt ~10-15 seconds; limited by back and hip pain Breathing Techniques: use of IS; able to achieve 500 ccs AM-PAC Score AM-PAC Inpatient Mobility Raw Score : 8 (06/28/22 1050) AM-PAC Inpatient T-Scale Score : 28.52 (06/28/22 105) Mobility Inpatient CMS 0-100% Score: 86.62 (06/28/22 1050) Mobility Inpatient CMS G-Code Modifier : CM (06/28/221049) Goals Short Term Goals Time Frame for Short Term Goals: 14 visits Short Term Goal 1: prevent contractures BLEs Short Term Goal 2: bed mob with min A+2 Short Term Goal 3: dangle EOB x 10 minutes with min A+2 Short Term Goal 4: sliding board transfers bed to chair and back with mod A+2 Short Term Goal 5: WC mobility x 25' with SBA+1 Patient Goals Patient Goals : walk Education Patient Education Education Given To: Patient Education Provided: Role of Therapy;Plan of Care;Precautions;Transfer Training;Equipment;Fall Prevention Strategies Education Method: Verbal Barriers to Learning: None Education Outcome: Continued education needed Therapy Time Individual Concurrent Group Co-treatment Time In 0846 Time Out 0938 Minutes 52 Timed Code Treatment Minutes: 33 Minutes Alton Camargo PT Neurosurgery ABDIRIZAK/Resident Daily Progress Note CC:No chief complaint on file. 06/28/2022 10:32 AM Chart reviewed. No acute events overnight. No new complaints. Reporting post op pain that is not controlled this morning. Reports absent movement to BLE has some sensation to light touch Vitals: 06/28/22 0000 06/28/22 0400 06/28/22 0745 06/28/22 0805 BP: (!) 110/57 108/68 127/81 Pulse: (!) 135 (!) 120 (!) 122 Resp: 11 12 Temp: 99.2 F (37.3 C) 99 F (37.2 C) 99 F (37.2 C) TempSrc: Axillary Oral Oral SpO2: 100% 97% 98% Weight: Height: PE: AOx3 Motor L deltoid 5/5; R deltoid 5/5 L biceps 5/5; R biceps 5/5 L triceps 5/5; R triceps 5/5 L wrist extension 5/5; R wrist extension 5/5 L intrinsics 5/5; R intrinsics 5/5 0/5 BLE Sensation: intact to light touch Drain output: 70ml/12 hours bloody Incision CDI covered with post op dressing Lab Results Component Value Date WBC 13.1 (H) 06/28/2022 HGB 9.0 (L) 06/28/2022 HCT 29.4 (L) 06/28/2022 PLT 265 06/28/2022 CHOL 151 12/30/2012 TRIG 192 (H) 12/30/2012 HDL 36 (L) 12/30/2012 ALT 22 12/30/2012 AST 18 12/30/2012 NA 134 (L) 06/28/2022 K 3.7 06/28/2022 CL 99 06/28/2022 CREATININE 0.55 06/28/2022 BUN 6 06/28/2022 CO2 28 06/28/2022 TSH 3.47 12/30/2012 INR 1.1 06/26/[address] HEAD WO CONTRAST Result Date: 06/26/2022 EXAMINATION: CT OF THE HEAD WITHOUT CONTRAST 06/26/2022 9:34 am TECHNIQUE: CT of the head was performed without the administration of intravenous contrast. Automated exposure control, iterative reconstruction, and/or weight based adjustment of the mA/kV was utilized to reduce the radiation dose to as low as reasonably achievable. COMPARISON: None. HISTORY: ORDERING SYSTEM PROVIDED HISTORY: Thoracic fx TECHNOLOGIST PROVIDED HISTORY: Thoracic fx Decision Support Exception - unselect if not a suspected or confirmed emergency medical condition->Emergency Medical Condition (MA) Is the patient ?->No Initial evaluation. FINDINGS: BRAIN/VENTRICLES: There is no acute intracranial hemorrhage, mass effect or midline shift. No abnormal extra-axial fluid collection. The pryor-white differentiation is maintained without evidence of an acute infarct. There is no evidence of hydrocephalus. ORBITS: The visualized portion of the orbits demonstrate no acute abnormality. SINUSES: Mucosal thickening with fluid is seen in the left sphenoid sinus. The mastoid air cells demonstrate no acute abnormality. SOFT TISSUES/SKULL: No acute abnormality of the visualized skull or soft tissues. 1. No acute intracranial abnormality. 2. Mucosal thickening with fluid in the left sphenoid sinus. CT CERVICAL SPINE WO CONTRAST Result Date: 06/26/2022 EXAMINATION: CT OF THE CERVICAL SPINE WITHOUT CONTRAST 06/26/2022 9:34 am TECHNIQUE: CT of the cervical spine was performed without the administration of intravenous contrast. Multiplanar reformatted images are provided for review. Automated exposure control, iterative reconstruction, and/or weight based adjustment of the mA/kV was utilized to reduce the radiation dose to as low as reasonably achievable. COMPARISON: None. HISTORY: ORDERING SYSTEM PROVIDED HISTORY: Thoracic fx TECHNOLOGIST PROVIDED HISTORY: Thoracic fx Decision Support Exception - unselect if not a suspected or confirmed emergency medical condition->Emergency Medical Condition (MA) Is the patient ?->No 26-year-old female with thoracic fracture FINDINGS: BONES/ALIGNMENT: Reversal of the cervical lordosis. Cervical spine is imaged from skull base to mid T2 vertebral body level. Gross preservation of the vertebral body heights. Odontoid appears intact. Lateral masses symmetric in appearance. Occipital condyles articulate properly with the lateral masses. Axial images demonstrate no clear evidence for acute fracture in the cervical spine. DEGENERATIVE CHANGES: No significant degenerative changes. SOFT TISSUES: There is no prevertebral soft tissue swelling. 1. Reversal of the cervical lordosis. 2. No acute vertebral body height loss in the cervical spine. MRI THORACIC SPINE WO CONTRAST Result Date: 06/26/2022 EXAMINATION: MRI OF THE THORACIC SPINE WITHOUT CONTRAST; MRI OF THE LUMBAR SPINE WITHOUT CONTRAST 06/26/2022 2:06 pm TECHNIQUE: Multiplanar multisequence MRI of the thoracic spine was performed without the administration of intravenous contrast.; Multiplanar multisequence MRI of the lumbar spine was performed without the administration of intravenous contrast. COMPARISON: CT thoracic and lumbar spine June 26, 2022 HISTORY: ORDERING SYSTEM PROVIDED HISTORY: paraplegia TECHNOLOGIST PROVIDED HISTORY: paraplegia What is the sedation requirement?->None Reason for Exam: paraplegia FINDINGS: BONES/ALIGNMENT: There is acute burst fracture of L1 with 80% height loss centrally. There is 1 cm retropulsion of posterior cortex of L1, contributing to severe spinal canal narrowing and moderate spinal cord compression at L1 level.. There is acute compression fracture at the anterior aspect of the inferior endplate of T12 with 15% height loss. No retropulsion of posterior cortex. There are mild chronic compression deformities of T2, T3 and T4 vertebral bodies with up to 15% height loss. The remainder of the vertebral body heights are grossly maintained. There is normal alignment of the thoracic and lumbar spine. SPINAL CORD: There is T2 hyperintensity in the conus medullaris, likely related to spinal cord edema. SOFT TISSUES: There is likely injury of the anterior longitudinal ligament at T12-L1 and posterior longitudinal ligament at T12-L1 and L1-2. There is posttraumatic changes in the right psoas muscle with hematoma. DEGENERATIVE CHANGES: No significant degenerative disc disease or foraminal narrowing. There is severe spinal canal narrowing and moderate spinal cord compression at L1 level secondary to retropulsion of posterior cortex of L1. Otherwise, no spinal canal narrowing in the remainder of the thoracic and lumbar spine. Acute burst fracture of L1 with 80% height loss centrally. 1 cm retropulsion of posterior cortex of L1, contributing to severe spinal canal narrowing and moderate spinal cord compression at L1 level. T2 hyperintensity in the conus medullaris, likely related to spinal cord edema. Acute compression fracture at the anterior aspect of the inferior endplate of T12 with 15% height loss. Mild chronic compression deformities of T2, T3 and T4. Injury of the anterior longitudinal ligament at T12-L1 and posterior longitudinal ligament at T12-L1 and L1-2. Posttraumatic changes in the right psoas muscle with hematoma. Critical results were reported to Dr. Cuhrch at 3:19 p.m. on June 26, 2022. MRI LUMBAR SPINE WO CONTRAST Result Date: 06/26/2022 EXAMINATION: MRI OF THE THORACIC SPINE WITHOUT CONTRAST; MRI OF THE LUMBAR SPINE WITHOUT CONTRAST 06/26/2022 2:06 pm TECHNIQUE: Multiplanar multisequence MRI of the thoracic spine was performed without the administration of intravenous contrast.; Multiplanar multisequence MRI of the lumbar spine was performed without the administration of intravenous contrast. COMPARISON: CT thoracic and lumbar spine June 26, 2022 HISTORY: ORDERING SYSTEM PROVIDED HISTORY: paraplegia TECHNOLOGIST PROVIDED HISTORY: paraplegia What is the sedation requirement?->None Reason for Exam: paraplegia FINDINGS: BONES/ALIGNMENT: There is acute burst fracture of L1 with 80% height loss centrally. There is 1 cm retropulsion of posterior cortex of L1, contributing to severe spinal canal narrowing and moderate spinal cord compression at L1 level.. There is acute compression fracture at the anterior aspect of the inferior endplate of T12 with 15% height loss. No retropulsion of posterior cortex. There are mild chronic compression deformities of T2, T3 and T4 vertebral bodies with up to 15% height loss. The remainder of the vertebral body heights are grossly maintained. There is normal alignment of the thoracic and lumbar spine. SPINAL CORD: There is T2 hyperintensity in the conus medullaris, likely related to spinal cord edema. SOFT TISSUES: There is likely injury of the anterior longitudinal ligament at T12-L1 and posterior longitudinal ligament at T12-L1 and L1-2. There is posttraumatic changes in the right psoas muscle with hematoma. DEGENERATIVE CHANGES: No significant degenerative disc disease or foraminal narrowing. There is severe spinal canal narrowing and moderate spinal cord compression at L1 level secondary to retropulsion of posterior cortex of L1. Otherwise, no spinal canal narrowing in the remainder of the thoracic and lumbar spine. Acute burst fracture of L1 with 80% height loss centrally. 1 cm retropulsion of posterior cortex of L1, contributing to severe spinal canal narrowing and moderate spinal cord compression at L1 level. T2 hyperintensity in the conus medullaris, likely related to spinal cord edema. Acute compression fracture at the anterior aspect of the inferior endplate of T12 with 15% height loss. Mild chronic compression deformities of T2, T3 and T4. Injury of the anterior longitudinal ligament at T12-L1 and posterior longitudinal ligament at T12-L1 and L1-2. Posttraumatic changes in the right psoas muscle with hematoma. Critical results were reported to Dr. Church at 3:19 p.m. on June 26, 2022. FLUORO FOR SURGICAL PROCEDURES Result Date: 06/26/2022 Radiology exam is complete. No Radiologist dictation. Please follow up with ordering provider. FLUORO FOR SURGICAL PROCEDURES Result Date: 06/26/2022 Radiology exam is complete. No Radiologist dictation. Please follow up with ordering provider. CT CHEST ABDOMEN PELVIS W CONTRAST Additional Contrast? None Result Date: 06/26/2022 EXAMINATION: CT OF THE CHEST, ABDOMEN, AND PELVIS WITH CONTRAST 06/26/2022 10:03 am TECHNIQUE: CT of the chest, abdomen and pelvis was performed with the administration of intravenous contrast. Multiplanar reformatted images are provided for review. Automated exposure control, iterative reconstruction, and/or weight based adjustment of the mA/kV was utilized to reduce the radiation dose to as low as reasonably achievable. COMPARISON: None HISTORY: ORDERING SYSTEM PROVIDED HISTORY: Thoracic fx TECHNOLOGIST PROVIDED HISTORY: Thoracic fx Decision Support Exception - unselect if not a suspected or confirmed emergency medical condition->Emergency Medical Condition (MA) 26-year-old female with thoracic fracture FINDINGS: Chest: Mediastinum: Visualized thyroid gland grossly unremarkable in appearance. No axillary, mediastinal, or hilar lymphadenopathy. Cardiomegaly. No periaortic or mediastinal hemorrhage. No dissection flap in the visualized thoracic aorta. No pericardial or pleural effusion. Lungs/pleura: Trachea and proximal central airways appear patent. No pneumothorax. Mild dependent atelectasis and respiratory motion. No lobar airspace consolidation. Soft Tissues/Bones: Unstable burst fracture at L1. Mild compression deformity with mild height loss of T12. Retropulsion of fracture fragments by 1.3 cm into the spinal canal with severe narrowing of the spinal canal AP dimension at 2 mm. Abdomen/Pelvis: Organs: No free intra-abdominal air. Liver, spleen, adrenal glands, right kidney, pancreas, and gallbladder grossly unremarkable in appearance. Nonobstructing left-sided renal calculi. No hydronephrosis or obstructing calculus. GI/Bowel: No significant dilation of small bowel loops to suggest small bowel obstruction. Normal appendix. Mild stool burden. Pelvis: Moderate distention of the urinary bladder. Pelvic phleboliths. Uterus and adnexa grossly unremarkable. No inguinal or pelvic sidewall lymphadenopathy. Peritoneum/Retroperitoneum: Abdominal aorta normal in appearance and caliber. Psoas muscles normal in size and symmetric in appearance. No retroperitoneal lymphadenopathy. Bones/Soft Tissues: Unstable burst fracture of L1 with retropulsion by 1.3 cm and severe narrowing of the spinal canal measuring 2 mm. Mild compression deformity/height loss of T12. Small midline fat-containing periumbilical hernia. 1. Unstable burst fracture at L1 with retropulsion of fracture fragments by 1.3 cm into the spinal canal and severe narrowing of the AP dimension of the spinal canal measuring 2 mm. 2. Mild compression deformity and height loss of T12. 3. Cardiomegaly. 4. Mild dependent atelectasis and respiratory motion. 5. Small midline fat-containing periumbilical hernia. 6. Nonobstructing left-sided renal calculi. No hydronephrosis. The findings were sent to the Radiology Results Communication [facility] at 10:48 am on 06/26/2022 to be communicated to a licensed caregiver. CT LUMBAR SPINE TRAUMA RECONSTRUCTION Result Date: 06/26/2022 EXAMINATION: CT OF THE THORACIC SPINE WITHOUT CONTRAST; CT OF THE LUMBAR SPINE WITHOUT CONTRAST 06/26/2022 10:12 am: TECHNIQUE: CT of the thoracic spine was performed without the administration of intravenous contrast. Multiplanar reformatted images are provided for review. Automated exposure control, iterative reconstruction, and/or weight based adjustment of the mA/kV was utilized to reduce the radiation dose to as low as reasonably achievable.; CT of the lumbar spine was performed without the administration of intravenous contrast. Multiplanar reformatted images are provided for review. Adjustment of mA and/or kV according to patient size was utilized. Automated exposure control, iterative reconstruction, and/or weight based adjustment of the mA/kV was utilized to reduce the radiation dose to as low as reasonably achievable. COMPARISON: CT chest, abdomen, and pelvis from 06/26/2022 HISTORY: ORDERING SYSTEM PROVIDED HISTORY: Thoracic fx TECHNOLOGIST PROVIDED HISTORY: Thoracic fx Is the patient ?->No 26-year-old female with thoracic fracture FINDINGS: THORACIC SPINE: BONES/ALIGNMENT: Thoracic spine is imaged from C7 vertebral body level to the inferior T12 vertebral body level. Gross preservation of the visualized thoracic vertebral body heights and intervertebral disc spaces. Partially visualized deformity of the superior L1 level. Deformity/mild compression deformity of T12. DEGENERATIVE CHANGES: No gross spinal canal stenosis or bony neural foraminal narrowing of the thoracic spine. SOFT TISSUES: No paraspinal mass is seen. LUMBAR SPINE: BONES/ALIGNMENT: Lumbar spine is imaged from mid T11 vertebral body level. Deformity and mild acute compression deformity of T12 vertebral body. Unstable burst fracture of L1 with retropulsion of fracture fragments measuring 1.3 cm into the posterior spinal canal. Severe narrowing of the AP dimension of the spinal canal measuring 2 mm on image 35, series 611. These findings are well seen on image 26, series 11. These findings are well seen on image 19, series 610. DEGENERATIVE CHANGES: Severe narrowing of the spinal canal measuring 2 mm due to retropulsion of burst fracture fragments from L1. SOFT TISSUES: No paraspinal mass is seen. THORACIC SPINE: 1. Partially visualized deformity likely an unstable burst fracture of L1. 2. Deformity and mild compression deformity of T12. 3. No clear evidence for acute fracture or malalignment of the thoracic spine. LUMBAR SPINE: 1. Unstable burst fracture of L1 with retropulsion of fracture fragments by 1.3 cm into the posterior spinal canal. Severe narrowing of the AP dimension of the spinal canal measuring 2 mm. 2. Deformity and mild acute compression deformity of T12. CT THORACIC SPINE TRAUMA RECONSTRUCTION Result Date: 06/26/2022 EXAMINATION: CT OF THE THORACIC SPINE WITHOUT CONTRAST; CT OF THE LUMBAR SPINE WITHOUT CONTRAST 06/26/2022 10:12 am: TECHNIQUE: CT of the thoracic spine was performed without the administration of intravenous contrast. Multiplanar reformatted images are provided for review. Automated exposure control, iterative reconstruction, and/or weight based adjustment of the mA/kV was utilized to reduce the radiation dose to as low as reasonably achievable.; CT of the lumbar spine was performed without the administration of intravenous contrast. Multiplanar reformatted images are provided for review. Adjustment of mA and/or kV according to patient size was utilized. Automated exposure control, iterative reconstruction, and/or weight based adjustment of the mA/kV was utilized to reduce the radiation dose to as low as reasonably achievable. COMPARISON: CT chest, abdomen, and pelvis from 06/26/2022 HISTORY: ORDERING SYSTEM PROVIDED HISTORY: Thoracic fx TECHNOLOGIST PROVIDED HISTORY: Thoracic fx Is the patient ?->No 26-year-old female with thoracic fracture FINDINGS: THORACIC SPINE: BONES/ALIGNMENT: Thoracic spine is imaged from C7 vertebral body level to the inferior T12 vertebral body level. Gross preservation of the visualized thoracic vertebral body heights and intervertebral disc spaces. Partially visualized deformity of the superior L1 level. Deformity/mild compression deformity of T12. DEGENERATIVE CHANGES: No gross spinal canal stenosis or bony neural foraminal narrowing of the thoracic spine. SOFT TISSUES: No paraspinal mass is seen. LUMBAR SPINE: BONES/ALIGNMENT: Lumbar spine is imaged from mid T11 vertebral body level. Deformity and mild acute compression deformity of T12 vertebral body. Unstable burst fracture of L1 with retropulsion of fracture fragments measuring 1.3 cm into the posterior spinal canal. Severe narrowing of the AP dimension of the spinal canal measuring 2 mm on image 35, series 611. These findings are well seen on image 26, series 11. These findings are well seen on image 19, series 610. DEGENERATIVE CHANGES: Severe narrowing of the spinal canal measuring 2 mm due to retropulsion of burst fracture fragments from L1. SOFT TISSUES: No paraspinal mass is seen. THORACIC SPINE: 1. Partially visualized deformity likely an unstable burst fracture of L1. 2. Deformity and mild compression deformity of T12. 3. No clear evidence for acute fracture or malalignment of the thoracic spine. LUMBAR SPINE: 1. Unstable burst fracture of L1 with retropulsion of fracture fragments by 1.3 cm into the posterior spinal canal. Severe narrowing of the AP dimension of the spinal canal measuring 2 mm. 2. Deformity and mild acute compression deformity of T12. A/P 26 y.o. female who presents with unstable L1 fracture POD#1 s/p ORIF L1 fixation T11-L3 PT and OT Will need rehab on discharged Bowel regimen Turn patient every 2 hours to prevent skin breakdown and ulcers Neuro checks per floor protocol Lovenox for DVT prophylaxis Laura for post op pain management Pending lumbar xrays Please contact neurosurgery with any changes in patients neurologic status. Blake Morris CNP 06/28/22 10:32 AM Associated attestation - Getachew Leong DO - 06/28/2022 6:15 PM EST I have seen and examined the patient independently. I reviewed all laboratory and imaging studies that are relevant. I agree with the ABDIRIZAK note with the below addendum. Images from the original note were not included. PROGRESS NOTE PATIENT NAME: Kayleen Pete DATE: 06/28/2022 SURGEON: Betty PRIMARY CARE PHYSICIAN: No primary care provider on file. HD: # 2 ASSESSMENT Patient Active Problem List Diagnosis Closed compression fracture of body of L1 vertebra (HCC) Closed fracture of twelfth thoracic vertebra (HCC) Closed unstable burst fracture of first lumbar vertebra (HCC) Complete paraplegia (HCC) Cauda equina compression (HCC) MEDICAL DECISION MAKING AND PLAN POD 2 from decompression of L1-2 and fixation of T11-L3 s/p FFS Posterior drain with 360mL sanguinous Neurosurgery is following, f/u recs No motor function, had sensation to b/l feet yesterday. Could not perceive touch this am Known seizure disorder Home meds ordered: lamictal Tachycardia 1L bolus given yesterday Diet: regular IVF: no DVT ppx: Lovenox Pain control: MMPT with morphine 2mg q3 and 4mg q3 per NS UOP: 0.5mL/kg/hr per [facility] PT/OT today Labs pending Chief Complaint: doing ok SUBJECTIVE Kayleen Pete is is unchanged since yesterday. She has some sensation to her feet, but still no ability to move her legs. She states that her sensation stops at the level of her hip bone. Her mid back is the area that hurts the worst with 8/10 pain. OBJECTIVE VITALS: Temp: Temp: 99 F (37.2 C)Temp Av.9 F (37.2 C) Min: 98.2 F (36.8 C) Max: 99.4 F (37.4 C) BP Systolic (24hrs), Av , Min:91 , Max:141 Diastolic (24hrs), Av, Min:50, Max:81 Pulse Pulse Av.8 Min: 105 Max: 138 Resp Resp Av.1 Min: 11 Max: 30 Pulse ox SpO2 Av.9 % Min: 90 % Max: 100 % GENERAL: alert, no distress NEURO: weakness of bilateral legs, both proximal and distal LUNGS: clear to ausculation, without wheezes, rales or rhonci HEART: normal rate and regular rhythm ABDOMEN: soft, non-tender, non-distended, and no guarding or peritoneal signs present EXTREMITY: no cyanosis, clubbing or edema I/O last 3 completed shifts: In: 1500 [I.V.:1500] Out: 2810 [Urine:2095; Drains:615; Blood:100] Drain/tube output: In: - Out: 1600 [Urine:1345; Drains:255] LAB: CBC: Recent Labs 06/26/22 0721 06/27/22 0142 06/27/22 1613 06/27/22 2227 06/28/22 0535 WBC 24.2* -- 14.1* -- -- HGB 14.2 < > 9.9* 9.3* 9.3* HCT 44.3 < > 33.0* 30.3* 29.4* MCV 83.0 -- 87.1 -- -- PLT 393 -- 283 -- -- < > = values in this interval not displayed. BMP: Recent Labs 06/26/22 0721 06/27/22 1613 NA 135 136 K 4.1 3.7 CL 98 101 CO2 22 26 BUN 9 11 CREATININE 0.77 0.60 GLUCOSE 135* 95 COAGS: Recent Labs 06/26/22 07 APTT 24.7 INR 1.1 Berenice Herrera DO 06/27/22, 8:23 AM Associated attestation - Ross Patricia MD - 06/28/2022 5:47 PM EST I personally evaluated the patient and directed the medical decision making with Resident/ABDIRIZAK after the physical/radiologic exam and laboratory values were reviewed and confirmed. ANM Pt's HR has been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 y.o. Gender: female Jew: Orthodox Trauma/Incident type: Adult Trauma Consult Admit Date & Time: 06/26/2022 6:10 AM ADVANCE DIRECTIVES IN CHART? No NAME OF DECISION MAKER: Bentley RELATIONSHIP OF DECISION MAKER TO PATIENT: spouse PATIENT/EVENT DESCRIPTION: Kayleen Pete is a 26 y.o. female who arrived via transfer from [facility] with injuries sustained from a fall due to a seizure; Pt to be admitted to . SPIRITUAL [id number]: Core Sticker responded to patient's room per [employer] notification of Trauma Consult. Core Sticker was welcomed into the room by patient and patient's spouse, Bentley, and observed them to be calm and coping. Core Sticker provided a non-anxious presence and engaged in conversation. Core Sticker heard feelings of frustration from patient's due to limited communication from other hospital regarding transfer location. Core Sticker acknowledged feelings shared and offered support. PATIENT BELONGINGS: No belongings noted ANY BELONGINGS OF SIGNIFICANT VALUE NOTED: Not noted REGISTRATION STAFF NOTIFIED? Yes WHAT IS YOUR SPIRITUAL CARE PLAN FOR THIS PATIENT?: Continue to support as needed. 06/26/22 0647 Encounter Summary Service Provided For: Patient;Family Referral/Consult From: Multi-disciplinary team Support System Spouse;Family members Last Encounter 06/26/22 Complexity of Encounter Moderate Begin Time 0640 End Time 0648 Total Time Calculated 8 min Crisis Type Trauma Assessment/Intervention/Outcome Assessment Concerns with suffering;Coping Intervention Active listening;Sustaining Presence/Ministry of presence Outcome Expressed Gratitude . Spiritual Care Department [facility] [phone] documented in this encounter [facility] [employer] [facility] Work Phone: 07-01-2022 Note [facility] Vascular Lower Extremities DVT Study Procedure Patient Name FLETTER Date of Study 06/30/2022 KAYLEEN Date of 1995 Gender Female Age 26 year(s) Race Room Number 0138 Corporate ID [id number] # Patient Acct [id number] # MR # [id number] Overedger Kacie Thomas RVT Interpreting Physician Wilfred Holland Referring Referring Physician Ember Griffiths Nurse Practitioner Procedure Type of Study: Veins: Lower Extremities DVT Study, Venous Scan Lower Bilateral. Indications for Study:R/O DVT. Patient Status:In Patient. Technical Quality:Adequate visualization. Limitation reason:deep vessels . Conclusions Summary Simultaneous real time imaging utilizing B-Mode, color doppler and spectral waveform analysis was performed on the bilateral lower extremities for venous examination of the deep and superficial systems. Findings are: Right: No evidence of superficial or deep venous thrombosis in the right lower extremity. Left: No evidence of superficial or deep venous thrombosis in the left lower extremity. Signature Findings: Right Impression: Left Impression: The common femoral, femoral, The common femoral, femoral, popliteal and tibial veins popliteal and tibial veins demonstrate normal compressibility demonstrate normal compressibility and augmentation. and augmentation. Normal compressibility of the great Normal compressibility of the great saphenous vein. saphenous vein. Normal compressibility of the small Normal compressibility of the small saphenous vein. saphenous vein. Enlarged lymph nodes are noted at the left groin level. Risk Factors - The patient's risk factor(s) include: obesity. Velocities are measured in cm/s ; Diameters are measured in cm Right Lower Extremities DVT Study Measurements Right 2D Measurements + ---+ + +--- -------+ !Location !Visualized!Compressibility!Thromb osis! + ---+ + +--- -------+ !Common Femoral !Yes !Yes !None ! + ---+ + +--- -------+ !Prox Femoral !Yes !Yes !None ! + ---+ + +--- -------+ !Mid Femoral !Yes !Yes !None ! + ---+ + +--- -------+ !Dist Femoral !Yes !Yes !None ! + ---+ + +--- -------+ !Deep Femoral !No ! ! ! + ---+ + +--- -------+ !Popliteal !Yes !Yes !None ! + ---+ + +--- -------+ !Sapheno Femoral Junction !Yes !Yes !None ! + ---+ + +--- -------+ !PTV !Yes !Yes !None ! + ---+ + +--- -------+ !Peroneal !Partial !Yes !None ! + ---+ + +--- -------+ !Gastroc !Yes !Yes !None ! + ---+ + +--- -------+ !GSV Thigh !Yes !Yes !None ! + ---+ + +--- -------+ !GSV Knee !Yes !Yes !None ! + ---+ + +--- -------+ !GSV Ankle !Yes !Yes !None ! + ---+ + +--- -- (more content not included)... [facility] 06-28-2022 Hospital Discharge instructions Jemma Henning RN - 06/28/2022 8:45 AM EST Discharge Instructions for Trauma What to do after you leave the hospital: Please continue to use your Incentive Spirometer as directed. You can practice 10 deep breaths/hour while awake. Using the Incentive Spirometer will promote the health of your lungs by taking slow, deep breaths in. It is also important in preventing pneumonia or a pneumothorax from developing. General questions or concerns may be called to the trauma nurse line at [phone] and please leave a message. Trauma is a life-threatening condition. Your doctor will want to closely monitor you. Be sure to go to all of your appointments. Esthela Huffman RN - 06/28/2022 12:52 PM EST Continuity of Care Form Patient Name: Kayleen Pete : 1995 Admit date: 06/26/2022 Discharge date: 07/08/2022 Code Status Order: Full Code Advance Directives: Admitting Physician: Rashad Ascencio MD PCP: No primary care provider on file. 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.4 Isolation/Infection: Isolation No Isolation Patient Infection Status None to display Nurse Assessment: Last Vital Signs: BP 127/77 Pulse (!) 111 Temp 98.6 F (37 C) (Oral) Resp 15 Ht 5' 9 (1.753 m) Wt 280 lb (127 kg) LMP (LMP Unknown) SpO2 98% BMI 41.35 kg/m Last documented pain score (0-10 scale): Pain Level: 9 Last Weight: Wt Readings from Last 1 Encounters: 06/26/22 280 lb (127 kg) Mental Status: oriented and alert IV Access: - None Nursing Mobility/ADLs: Walking Dependent Transfer Dependent Bathing Dependent Dressing Dependent Toileting Dependent Feeding Independent Tank Car Mechanic Independent Med Delivery whole Wound Care Documentation and Therapy: Incision 06/26/22 Back Medial (Active) Dressing Status Clean;Dry;Intact 06/28/22 1135 Dressing/Treatment Adhesive bandage 06/28/22 1135 Closure Other (Comment) 06/28/22 1135 Margins Other (Comment) 06/28/22 1135 Drainage Amount None 06/28/22 1135 Teresa-incision Assessment Other (Comment) 06/28/22 1135 Number of days: 1 Elimination: Continence: Bowel: Yes Bladder: No Urinary Catheter: None Colostomy/Ileostomy/Ileal Conduit: No Date of Last BM: 07/07/2022 Intake/Output Summary (Last 24 hours) at 06/28/2022 1252 Last data filed at 06/28/2022 1135 Gross per 24 hour Intake -- Output 1265 ml Net -1265 ml I/O last 3 completed shifts: In: 1500 [I.V.:1500] Out: 2810 [Urine:2095; Drains:615; Blood:100] Safety Concerns: At Risk for Falls Impairments/Disabilities: Paralysis - waist down Nutrition Therapy: Current Nutrition Therapy: - Oral Diet: General Routes of Feeding: Oral Liquids: Thin Liquids Daily Fluid Restriction: no Last Modified Barium Swallow with Video (Video Swallowing Test): not done Treatments at the Time of Hospital Discharge: Respiratory Treatments: Oxygen Therapy: is not on home oxygen therapy. Ventilator: - No ventilator support Rehab Therapies: Physical Therapy and Occupational Therapy Weight Bearing Status/Restrictions: No weight bearing restrictions Other Medical Equipment (for information only, NOT a DME order): wheelchair, bedside commode, and hospital bed Other Treatments: Patient's personal belongings (please select all that are sent with patient): Cell Phone RN SIGNATURE: CASE MANAGEMENT/SOCIAL WORK SECTION Inpatient Status Date: 06/26/2022 Readmission Risk Assessment Score: Readmission Risk Risk of Unplanned Readmission: 10 Discharging to Facility/ Agency Name: [facility] Bashir Mares Address: Fax: Dialysis Facility (if applicable) Name: Address: Dialysis Schedule: Phone: Fax: Research Specialist/Licensed Investment Sales Assistant signature: PHYSICIAN SECTION Prognosis: Good Condition at Discharge: Stable Rehab Potential (if transferring to Rehab): Good Recommended Labs or Other Treatments After Discharge: Physician Certification: I certify the above information and transfer of Kayleen Pete is necessary for the continuing treatment of the diagnosis listed and that she requires Acute Rehab for less 30 days. Update Admission H&P: No change in H&P PHYSICIAN SIGNATURE: 1/ The following attachments cannot be sent through Care Everywhere.Compression Fracture: Spine ([place])Seizure ([place])Spinal Cord Injury: Paraplegic ([place])documented in this encounter [facility] Work Phone: 06-26-2022 Emergency department Note [facility] here for transport. [facility] 06-26-2022 Emergency department Note [facility] here for transport. Spoke with Aarti from [facility]. Crew is in [facility] to send pcs form to be completed. Crew eta is 15-20 minutes. [facility] called, acceptance to [place] ED to ED. Number for nurse to nurse [phone]. Fax number for facesheet is [phone]. [facility] also provided a number for [place] transport if needed-- [phone]. Dr. Vera updated that [facility] will not be able to accept patient. Tool Lapper Hand to call [facility]. John does have a crew at [facility] that would be able to do transfer once we have accepting facility. Spoke with Elizabeth with [facility], this typewriter mechanic gave information about patient. X-ray to push images for trauma DrDavian To review and determine if they can accept. Will return call with update. Dr. Vera notified. Spoke with Will from [facility] stat transfer, was informed they are paging out to on-call for ortho every five minutes, waiting to hear back. Will to try to contact nurse reviewing the case to give updated information to. Pt has seizure lasting approximately one minute, physician called to bedside. History Chief Complaint Patient presents with Back Pain Pt states she had a seizure and hit her back on a car door frame. 26-year-old female with history of epilepsy reports having injury tonight. She was in a car as a passenger, tried to get out of the car, slipped and fell striking her back on the ledge of the door frame. This caused her to have a seizure or she had a seizure after she struck fall the car. She woke in the car and it took 3 ambulance personnel to get her out. She was placed on a gurney. She reports severe low back pain. She rates the pain a 10 on a scale 1-10. Reports that she is cold due to the weather. She reports numbness to her left leg, at the foot and thigh area. Also she has pain with moving her legs. She states she bit her tongue, no incontinence. EMS reports no postictal appearance. All patient reports no prior back injuries, no surgery in the past, no incontinence Past Medical History: Diagnosis Date Anxiety Asthma Bipolar 1 disorder Depression Epileptic Essential hypertension, benign gestational Polycystic ovary syndrome Schizoaffective disorder Past Surgical History: Procedure Laterality Date SECTION TONSILLECTOMY ADENOIDECTOMY Family History Problem Relation Age of Onset Other - Specify Mother Lupus Erythematous Heart Disease - Other Maternal Uncle Other - Specify Maternal Uncle Hodgkins Lipid Disorder Maternal Grandmother Uterine Cancer Maternal Grandmother Hypertension Other close relative Thyroid Disease Other close relative Social History Tobacco Use Smoking status: Heavy Smoker Packs/day: 1.00 Types: Cigarettes Smokeless tobacco: Never Substance Use Topics Alcohol use: Yes Drug use: Yes Types: Marijuana, Methamphetamines Review of Systems Constitutional: Negative for fever. HENT: Negative for sore throat. Eyes: Negative for visual disturbance. Respiratory: Negative for shortness of breath. Cardiovascular: Negative for palpitations. Gastrointestinal: Negative for vomiting. Endocrine: Negative for polyuria. Genitourinary: Negative for decreased urine volume. Musculoskeletal: Positive for back pain. Negative for neck pain. Skin: Negative for rash. Neurological: Positive for seizures. Physical Exam BP 132/81 Pulse 102 Temp 97.8 F (36.6 C) (Temporal) Resp 18 Ht 1.753 m (5' 9 ) Wt 133.4 kg (294 lb) SpO2 97% BMI 43.42 kg/m Smoking Status Heavy Smoker Physical Exam Constitutional: General: She is not in acute distress. Appearance: Normal appearance. She is not ill-appearing, toxic-appearing or diaphoretic. Comments: Patient is awake alert cooperative. She has limited mobility due to her pain. She is able to use her left hand grasp the right radial and roll herself the other side for back examination. HENT: Head: Normocephalic and atraumatic. Right Ear: External ear normal. Left Ear: External ear normal. Nose: Nose normal. Mouth/Throat: Mouth: Mucous membranes are moist. Comments: Red rogel on the anterior portion tongue consistent with a bite. No break of the skin or bleeding. Eyes: General: No scleral icterus. Neck: Comments: Range of motion with flexion extension. No tenderness along spinous process of cervical spine. Cardiovascular: Rate and Rhythm: Normal rate. Pulmonary: Effort: Pulmonary effort is normal. Breath sounds: No wheezing. Abdominal: Tenderness: There is no abdominal tenderness. There is no guarding or rebound. Hernia: No hernia is present. Musculoskeletal: General: Tenderness present. Cervical back: Normal range of motion and neck supple. Comments: Patient is able to assist him rolling onto her right side for evaluation. Patient has tenderness of the lumbar spine diffusely along the midline. No step-off or deformities noted Skin: General: Skin is warm and dry. Capillary Refill: Capillary refill takes less than 2 seconds. Neurological: General: No focal deficit present. Mental Status: She is alert and oriented to person, place, and time. Sensory: Sensory deficit present. Motor: No weakness. Coordination: Coordination normal. Comments: Decreased sensation to gross touch in the left thigh and left calf and left foot. weakness and with great toe extension and lifting leg noted Patient has decreased sensation to pain prick and pinching on the medial thigh the left, medial calf and medial foot as well. Patient states that she can feel gross touch and pressure. Negative Babinski. Strength it is less than expected but I do see spontaneous movement the leg Psychiatric: Mood and Affect: Mood normal. Thought Content: Thought content normal. ED Course Procedures MDM Number of Diagnoses or Management Options Closed wedge compression fracture of L1 vertebra, initial encounter Compression fracture of T12 vertebra, initial encounter Seizure Diagnosis management comments: Patient presents after a fall and back injury. Additional workup needed this Patient presents with report of fall and seizure activity. Exam finds her to be uncomfortable with any slight movement. Exam finds her to have left lower extremity decreased sensation and movement. Fall CT scan lumbar spine shows L1 compression with bony components into the spinal canal. This correlates with her exam of decreased sensation and motor function left leg. I have contacted the Orthopedic surgery for [facility] and they are unable to manage this case. I have contacted transfer service for [facility]. We await contact for spine coverage, hospitalist, or trauma service I was called to the room as patient was having active seizure activity. 1 mg of Ativan given IV Contact was made with Dr. Coon for spine at [facility], he is unable to accept the patient because they do not have neurology service available for consultation with due to her seizure activity. He recommends sending patient to a higher level of care. Access service will try [facility] in [place]. Our staff has contacted [facility] and we await communicate Heart rate is 130s. I have done an EKG which shows a sinus tachycardia. Patient's pain is seems to be her biggest complaint and I have ordered pain medication as well. IV fluids are being run. We will continue monitor. [facility] Emergency Room doctor Esperanza has contacted us for transfer. We have discussed patient's presentation, seizure, CT back findings, treatment to this point. He is recommended we send the patient to emergency room and he will manage the consult. Patient has been updated on these findings. Patient has been reassessed and found to be stable. She still complaining of back pain, heart rate is 106, no more seizure like activity here. Pain medication has been ordered for her symptoms. Concerns for this patient include fall, which fracture with bony fragments protruding to the spinal column, seizure activity, seizure history neurologic weakness on left lower extremity Critical care time is 35 min as the patient needed prompt intervention to prevent neurologic decompensation. This time included [id number] evaluation on arrival with full history and exam obtained, discussion with EMS, old record review, old record and comparing, laboratory orders, IV treatment for pain and seizure activity, diagnostic radiology study, laboratory interpretation, treatment for neurologic injury, reassessment multiple times, medications and additional information obtained from family members, contact and consulting with hospitalist, admission and transfer orders facilitated. CRITICAL CARE PERFORMED 35. TIME IS EXCLUSIVE OF SEPARATELY BILLABLE PROCEDURES. TIME INCLUDES: DIRECT PATIENT CARE, COORDINATION OF PATIENT CARE AND INTERPRETATION OF DATA(LABORATORY DATA, PULSE OXIMETRY, CHEST X-RAYS, PRIOR EKG) SEEN IN THE PROGRESS NOTES. PROCEDURES EXCLUDED FROM CRITICAL CARE TIME INCLUDE ELECTROCARDIOGRAPHY Levi Vera DO 06/26/22 0040 Levi Vera DO 06/26/22 0218 Levi Vera, DO 06/26/22 0238 Levi Vera, DO 06/26/22 0458 Pt states she had a seizure and then slipped and hit her back on the car door frame. Pt is alert and oriented. documented in this encounter [facility] Phone: 06-26-2022 Note PROCEDURE: CT SPINE LUMBAR WITHOUT CONTRAST CLINICAL HISTORY: ; DIAGNOSES: -Low back pain, trauma; ; TECHNIQUE: Contiguous axial CT images obtained through the lumbar spine without IV contrast. Coronal and sagittal reformatted images also provided. This exam was performed according to our departmental dose-optimization program, which includes automated exposure control, adjustment of the mA and/or kV according to patient size and/or use of iterative reconstruction technique. COMPARISON: MRI of the lumbar spine from October 2017 FINDINGS: Prominent compression fracture of L1, with over 50% loss of height of the vertebral body centrally. Retropulsion of bony fragments into the spinal canal which may impinge on the conus medullaris. Severe narrowing of the spinal canal at this level. Deformity of the T12 vertebral body inferiorly consistent with less prominent compression fracture with mild anterior wedging. The remainder of the lumbar vertebral bodies are normal in shape and height. IMPRESSION: 1. Prominent compression fracture of L1, with over 50% loss of height of the vertebral body centrally. Retropulsion of bony fragments into the spinal canal which may impinge on the conus medullaris. Severe narrowing of the spinal canal at this level. Recommend further evaluation with MRI of the lumbar spine. 2. Deformity of the T12 vertebral body inferiorly consistent with less prominent compression fracture with mild anterior wedging. Electronically signed by: Jovan Hernandez MD 06/26/2022 12:20 AM [facility] [id number] 06-26-2022 Emergency department Note Spoke with Aarti from [facility]. Crew is in [facility] to send pcs form to be completed. Crew eta is 15-20 minutes. [facility] [employer] Work Phone: 06-26-2022 Emergency department Note [facility] called, acceptance to [place] ED to ED. Number for nurse to nurse [phone]. Fax number for facesheet is [phone]. [facility] also provided a number for [place] transport if needed-- [phone]. O Phone: 06-26-[address] Vera updated that [facility] will not be able to accept patient. Tool Lapper Hand to call [facility]. O Phone: 06-26-2022 Emergency department Note John does have a crew at [facility] that would be able to do transfer once we have accepting facility. O Phone: 06-26-2022 Emergency department Note Spoke with Elizabeth with [facility], this typewriter mechanic gave information about patient. X-ray to push images for trauma DrDavian To review and determine if they can accept. Will return call with update. Dr. Vera notified. O Phone: 06-26-2022 Emergency department Note Spoke with Will from [facility] stat transfer, was informed they are paging out to on-call for ortho every five minutes, waiting to hear back. Will to try to contact nurse reviewing the case to give updated information to. O Phone: 06-26-2022 Emergency department Note Pt has seizure lasting approximately one minute, physician called to bedside. O Phone: 06-26-2022 Note PROCEDURE: CT SPINE LUMBAR WITHOUT CONTRAST CLINICAL HISTORY: ; DIAGNOSES: -Low back pain, trauma; ; TECHNIQUE: Contiguous axial CT images obtained through the lumbar spine without IV contrast. Coronal and sagittal reformatted images also provided. This exam was performed according to our departmental dose-optimization program, which includes automated exposure control, adjustment of the mA and/or kV according to patient size and/or use of iterative reconstruction technique. COMPARISON: MRI of the lumbar spine from October 2017 FINDINGS: Prominent compression fracture of L1, with over 50% loss of height of the vertebral body centrally. Retropulsion of bony fragments into the spinal canal which may impinge on the conus medullaris. Severe narrowing of the spinal canal at this level. Deformity of the T12 vertebral body inferiorly consistent with less prominent compression fracture with mild anterior wedging. The remainder of the lumbar vertebral bodies are normal in shape and height. RADIOLOGY 06-26-2022 Physician Emergency department Note History Chief Complaint Patient presents with Back Pain Pt states she had a seizure and hit her back on a car door frame. 26-year-old female with history of epilepsy reports having injury tonight. She was in a car as a passenger, tried to get out of the car, slipped and fell striking her back on the ledge of the door frame. This caused her to have a seizure or she had a seizure after she struck fall the car. She woke in the car and it took 3 ambulance personnel to get her out. She was placed on a gurney. She reports severe low back pain. She rates the pain a 10 on a scale 1-10. Reports that she is cold due to the weather. She reports numbness to her left leg, at the foot and thigh area. Also she has pain with moving her legs. She states she bit her tongue, no incontinence. EMS reports no postictal appearance. All patient reports no prior back injuries, no surgery in the past, no incontinence Past Medical History: Diagnosis Date Anxiety Asthma Bipolar 1 disorder Depression Epileptic Essential hypertension, benign gestational Polycystic ovary syndrome Schizoaffective disorder Past Surgical History: Procedure Laterality Date SECTION TONSILLECTOMY ADENOIDECTOMY Family History Problem Relation Age of Onset Other - Specify Mother Lupus Erythematous Heart Disease - Other Maternal Uncle Other - Specify Maternal Uncle Hodgkins Lipid Disorder Maternal Grandmother Uterine Cancer Maternal Grandmother Hypertension Other close relative Thyroid Disease Other close relative Social History Tobacco Use Smoking status: Heavy Smoker Packs/day: 1.00 Types: Cigarettes Smokeless tobacco: Never Substance Use Topics Alcohol use: Yes Drug use: Yes Types: Marijuana, Methamphetamines Review of Systems Constitutional: Negative for fever. HENT: Negative for sore throat. Eyes: Negative for visual disturbance. Respiratory: Negative for shortness of breath. Cardiovascular: Negative for palpitations. Gastrointestinal: Negative for vomiting. Endocrine: Negative for polyuria. Genitourinary: Negative for decreased urine volume. Musculoskeletal: Positive for back pain. Negative for neck pain. Skin: Negative for rash. Neurological: Positive for seizures. Physical Exam BP 132/81 Pulse 102 Temp 97.8 F (36.6 C) (Temporal) Resp 18 Ht 1.753 m (5' 9 ) Wt 133.4 kg (294 lb) SpO2 97% BMI 43.42 kg/m Smoking Status Heavy Smoker Physical Exam Constitutional: General: She is not in acute distress. Appearance: Normal appearance. She is not ill-appearing, toxic-appearing or diaphoretic. Comments: Patient is awake alert cooperative. She has limited mobility due to her pain. She is able to use her left hand grasp the right radial and roll herself the other side for back examination. HENT: Head: Normocephalic and atraumatic. Right Ear: External ear normal. Left Ear: External ear normal. Nose: Nose normal. Mouth/Throat: Mouth: Mucous membranes are moist. Comments: Red rogel on the anterior portion tongue consistent with a bite. No break of the skin or bleeding. Eyes: General: No scleral icterus. Neck: Comments: Range of motion with flexion extension. No tenderness along spinous process of cervical spine. Cardiovascular: Rate and Rhythm: Normal rate. Pulmonary: Effort: Pulmonary effort is normal. Breath sounds: No wheezing. Abdominal: Tenderness: There is no abdominal tenderness. There is no guarding or rebound. Hernia: No hernia is present. Musculoskeletal: General: Tenderness present. Cervical back: Normal range of motion and neck supple. Comments: Patient is able to assist him rolling onto her right side for evaluation. Patient has tenderness of the lumbar spine diffusely along the midline. No step-off or deformities noted Skin: General: Skin is warm and dry. Capillary Refill: Capillary refill takes less than 2 seconds. Neurological: General: No focal deficit present. Mental Status: She is alert and oriented to person, place, and time. Sensory: Sensory deficit present. Motor: No weakness. Coordination: Coordination normal. Comments: Decreased sensation to gross touch in the left thigh and left calf and left foot. weakness and with great toe extension and lifting leg noted Patient has decreased sensation to pain prick and pinching on the medial thigh the left, medial calf and medial foot as well. Patient states that she can feel gross touch and pressure. Negative Babinski. Strength it is less than expected but I do see spontaneous movement the leg Psychiatric: Mood and Affect: Mood normal. Thought Content: Thought content normal. ED Course Procedures MDM Number of Diagnoses or Management Options Closed wedge compression fracture of L1 vertebra, initial encounter Compression fracture of T12 vertebra, initial encounter Seizure Diagnosis management comments: Patient presents after a fall and back injury. Additional workup needed this Patient presents with report of fall and seizure activity. Exam finds her to be uncomfortable with any slight movement. Exam finds her to have left lower extremity decreased sensation and movement. Fall CT scan lumbar spine shows L1 compression with bony components into the spinal canal. This correlates with her exam of decreased sensation and motor function left leg. I have contacted the Orthopedic surgery for [facility] and they are unable to manage this case. I have contacted transfer service for [facility]. We await contact for spine coverage, hospitalist, or trauma service I was called to the room as patient was having active seizure activity. 1 mg of Ativan given IV Contact was made with Dr. Coon for spine at [facility], he is unable to accept the patient because they do not have neurology service available for consultation with due to her seizure activity. He recommends sending patient to a higher level of care. Access service will try [facility] in [place]. Our staff has contacted [facility] and we await communicate Heart rate is 130s. I have done an EKG which shows a sinus tachycardia. Patient's pain is seems to be her biggest complaint and I have ordered pain medication as well. IV fluids are being run. We will continue monitor. [facility] Emergency Room doctor Esperanza has contacted us for transfer. We have discussed patient's presentation, seizure, CT back findings, treatment to this point. He is recommended we send the patient to emergency room and he will manage the consult. Patient has been updated on these findings. Patient has been reassessed and found to be stable. She still complaining of back pain, heart rate is 106, no more seizure like activity here. Pain medication has been ordered for her symptoms. Concerns for this patient include fall, which fracture with bony fragments protruding to the spinal column, seizure activity, seizure history neurologic weakness on left lower extremity Critical care time is 35 min as the patient needed prompt intervention to prevent neurologic decompensation. This time included [id number] evaluation on arrival with full history and exam obtained, discussion with EMS, old record review, old record and comparing, laboratory orders, IV treatment for pain and seizure activity, diagnostic radiology study, laboratory interpretation, treatment for neurologic injury, reassessment multiple times, medications and additional information obtained from family members, contact and consulting with hospitalist, admission and transfer orders facilitated. CRITICAL CARE PERFORMED 35. TIME IS EXCLUSIVE OF SEPARATELY BILLABLE PROCEDURES. TIME INCLUDES: DIRECT PATIENT CARE, COORDINATION OF PATIENT CARE AND INTERPRETATION OF DATA(LABORATORY DATA, PULSE OXIMETRY, CHEST X-RAYS, PRIOR EKG) SEEN IN THE PROGRESS NOTES. PROCEDURES EXCLUDED FROM CRITICAL CARE TIME INCLUDE ELECTROCARDIOGRAPHY Levi Vera DO 06/26/22 0040 Levi Vera DO 06/26/22 0218 Levi Vera, 06/26/22 0238 Levi Vera, DO 06/26/22 0458 O Phone: 06-26-2022 Emergency department Note Pt states she had a seizure and then slipped and hit her back on the car door frame. Pt is alert and oriented. O Phone: 11-10-2021 Evaluation + Plan note Diagnostic Tests PendingHCV Genotyping Non Reflex 11/10/21 [facility] Evaluation + Plan note No data available for this section [facility] [employer] Evaluation note Diagnosis Closed wedge compression fracture of L1 vertebra, initial encounter- Primary Compression fracture of T12 vertebra, initial encounter Seizure Other convulsions documented in this encounter [employer] Phone: Evaluation note* Diagnosis Closed compression fracture of body of L1 vertebra (HCC)- Primary Closed fracture of twelfth thoracic vertebra, unspecified fracture morphology, initial encounter ([facility]) Seizure (HCC) Other convulsions Spine disorder Other unspecified back disorder Closed fracture of twelfth thoracic vertebra (HCC) Closed unstable burst fracture of first lumbar vertebra (HCC) Closed fracture of lumbar vertebra without mention of spinal cord injury Complete paraplegia (HCC) Paraplegia Cauda equina compression (HCC) Cauda equina syndrome without mention of neurogenic bladder documented in this encounter [facility] [employer] Phone: evaluation noteNo [employer] [employer] Other Evaluation note* Diagnosis Mid back pain Backache, unspecified Fusion of spine of thoracolumbar region Congenital fusion of spine (vertebra) Spinal stenosis of lumbar region without neurogenic claudication Spinal stenosis, lumbar region, without neurogenic claudication Weakness Other malaise and fatigue documented in this encounter [facility] [place] [facility] Diagnosis Mid back pain Backache, unspecified Fusion of spine of thoracolumbar region Congenital fusion of spine (vertebra) documented in this encounter [facility] [place] [facility]* Diagnosis Mid back pain Backache, unspecified Fusion of spine of thoracolumbar region Congenital fusion of spine (vertebra) Pathological fracture, other site, initial encounter for fracture Weakness Other malaise and fatigue documented in this encounter [facility] [place] [facility]* Diagnosis Fusion of spine of thoracolumbar region- Primary Congenital fusion of spine (vertebra) Weakness Other malaise and fatigue documented in this encounter [facility] [place] [facility]* Diagnosis Paraplegia (HCC)- Primary Paraplegia Fusion of spine of thoracolumbar region Congenital fusion of spine (vertebra) Weakness Other malaise and fatigue Constipation, unspecified constipation type Spasticity Abnormal involuntary movements documented in this encounter [facility] Discharge instructions No data available for this section [facility] Health Reason for visit Narrative* Outpatient Procedure (Routine) - Pending Review Specialty Diagnoses / Procedures Referred By Contac t Referred To Contact RADIO [facility] SCAN [facility] Diagnoses pt with cauda equina or decompression or spinal cord compression Office to send order with pt Procedures CT WO TY B 400 Edwar Brady MD [address] [place] [address] [facility] [address] [place] [address] Referral ID Status Reason Start Date Expiration Date V isits Requested Visits Authorized [id number] Pending Review 07/23/2022 09/21/2022 1 1 [facility] for visit Narrative* Outpatient Procedure (Routine) - Pending Review Specialty Diagnoses / Procedures Referred By Contac t Referred To Contact RADIO [facility] SCAN [facility] Diagnoses pt with cauda equina or decompression or spinal cord compression Office to send order with pt Procedures CT WO MSK 400 Edwar Brady MD [address] [place] [address] Scan [facility] [address] [place] [address] Referral ID Status Reason Start Date Expiration Date V isits Requested Visits Authorized [id number] Pending Review 07/23/2022 09/21/2022 1 1 [facility] for visit Narrative* Diagnostic Procedure Only (Routine) - Closed Specialty Diagnoses / Procedures Referred By Contac t Referred To Contact XR IMAGING Diagnoses Mid back pain Fusion of spine of thoracolumbar region Procedures XR LUMBAR LIMITED 2V AP/LAT RADEX SPINE LUMBOSACRAL 2/3 VIEWS Arpan Cuello, DIGITAL ANALYTICS MANAGER.[employer] [address] [place] [id number] [place] [id number] Referral ID Status Reason Start Date Expiration Date V isits Requested Visits Authorized [id number] Closed Auto-Generate d Referral 07/28/2023 08/26/2024 1 1 [facility] Summary Purpose Family History No Family History Records FoundNo Family History Records FoundNo Family History Records FoundNo Family History Records FoundNo Family History Records FoundNo Family History Records FoundNo Family History Records FoundNo Family History Records FoundNo Family History Records FoundNo Family History Records FoundNo Family History Records FoundNo Family History Records Found Advance Directives No Advanced Directives Records FoundDocuments on File Type Date Recorded Patient Fowl Blood Tester Expl anation Advance Directives and Living Will Power of Chute Loader Latest Code Status on File Code Status Date Activated Date Inactivated Comments Full Code 06/26/2022 7:23 AM Latest Code Status on File Code Status Date Activated Date Inactivated Comments Full Code 06/26/2022 7:23 AM 07/08/2022 4:35 PM Latest Code Status on File Code Status Date Activated Date Inactivated Comments Full Code 05/05/2023 6:37 PM 05/23/2023 4:00 PM Code Status History Code Status Date Activated Date Inactivated Comments Full Code 05/05/2023 3:57 PM 05/05/2023 6:37 PM Full Code 06/26/2022 7:23 AM 07/08/2022 4:35 PM Hospital Course Note [facility] Medical Records Patient: KAYLEEN PETE. : 1995 [place], [place] [address] Location: OB [phone] Unit #: [id number] Discharge Summary Susannah Long MD ADDENDUM: Discharge date changed to 06/02/18. Addendum Entered by: Susannah Long MD on 06/01/18 at 1150 Addendum Signed by: Susannah Long MD on 06/01/18 1150 <> Addendum Co-signer: on Summary - [employer] DC Admit Date: 05/29/18 Attending Provider: Audrey Rao (LMA)MD Discharging Provider: Susannah Long MD Primary Care Provider: Wendy Suazo Discharge Date: 06/01/18 Allergies/Adverse Reactions Anesthetics - Amide Type Allergy (Verified 05/31/18 01:35) Respiratory Distress patient has been able to tolerate ropivacaine via epidural route just fine. allergic reaction occurred when pt was 6 yo under general anesthesia Anesthetics - [place] Type- Pa (more content not included)... Instructions * Patient Instructions - Pa Rodriguez APRN-[employer] - 07/16/2018 4:54 PM EST Viral Upper Respiratory Illness (Adult) You have a viral upper respiratory illness (URI), which is another term for the common cold. This illness is contagious during the first few days. It is spread through the air by coughing and sneezing. It may also be spread by direct contact (touching the sick person and then touching your own eyes, nose, or mouth). Frequent handwashing will decrease risk of spread. Most viral illnesses go away within 7 to 10 days with rest and simple home remedies. Sometimes the illness may last for several weeks. Antibiotics will not kill a virus, and they are generally not prescribed for this condition. Home care If symptoms are severe, rest at home for the first 2 to 3 days. When you resume activity, don't letyourself get too tired. Avoid being exposed to cigarette smoke (yours or others ). You may use acetaminophen or ibuprofen to control pain and fever, unless another medicine was prescribed. If you have chronic liver or kidney disease, have ever had a stomach ulcer or gastrointestinal bleeding, or are taking blood-thinning medicines, talk with your healthcare provider before using these medicines. Aspirin should never be given to anyone under 18 years of age who is ill with a viral infection or fever. It may cause severe liver or brain damage. Your appetite may be poor, so a light diet is fine. Avoid dehydration by drinking 6 to 8 glasses offluids per day (water, soft drinks, juices, tea, or soup). Extra fluids will help loosen secretionsin the nose and lungs. Srxt-kib-exhuzbp cold medicines will not shorten the length of time you re sick, but they may be helpful for the following symptoms: cough, sore throat, and nasal and sinus congestion. (Note: Do not use decongestants if you have high blood pressure.) Follow-up care Follow up with your healthcare provider, or as advised. When to seek medical advice Call your healthcare provider right away if any of these occur: Cough with lots of colored sputum (mucus) Severe headache; face, neck, or ear pain Difficulty swallowing due to throat pain Fever of 100.4 F (38 C) or higher, or as directed by your healthcare provider Call 911 Call 911 if any of these occur: Chest pain, shortness of breath, wheezing, or difficulty breathing Coughing up blood Inability to swallow due to throat pain Date Last Reviewed: 03/15/201519994394-2262 [employer]. [address] [place] [address], [place] [address]. All rights reserved. This information is not intended as a substitute for professional medical care. Always follow yourhealthcare professional's instructions. in this encounter History of Present Illness * Pa Rodriguez, KATLYN-[employer] - 07/16/2018 4:40 PM EST Formatting of this note may be different from the original. [address] [address] TRIAGE CHIEF COMPLAINT: Chief Complaint Patient presents with URI thinks she has bronchitis as her friend was diagnosed with bronchitis and she has the same symptoms. Cough HPI: Kayleen Pete is a 22 y.o. female who presents for cough, congestion, headaches, states thather friend had bronchitis, she is now concerned 2 days of symptoms, no OTC meds tried HPI Review of Systems Constitutional: Negative for activity change, chills and fever. HENT: Positive for congestion. Negative for ear pain, mouth sores, rhinorrhea, sinus pain and tinnitus. Respiratory: Positive for cough. Negative for chest tightness, shortness of breath and wheezing. Cardiovascular: Negative for chest pain and leg swelling. Gastrointestinal: Negative for abdominal pain, diarrhea, nausea and vomiting. Genitourinary: Negative for dysuria, flank pain, hematuria and urgency. Musculoskeletal: Negative for arthralgias and joint swelling. Skin: Negative for color change and rash. Neurological: Negative for dizziness, tremors and syncope. Psychiatric/Behavioral: Negative for hallucinations and suicidal ideas. The patient is not nervous/anxious. Remaining review of systems reviewed and negative. I have reviewed the nursing triage documentation and agree unless otherwise noted below. Vitals: 07/16/18 1640 BP: 141/83 Pulse: 89 Resp: 16 Temp: 98.1 degrees F (36.7 degrees C) TempSrc: Oral Weight: 114.3 kg (252 lb) Height: 1.702 m (5' 7 ) PAST MEDICAL HISTORY: Past Medical History: Diagnosis Date Anxiety Asthma Bipolar 1 disorder Depression Polycystic ovary syndrome CURRENT MEDICATIONS: Outpatient Medications Prior to Visit Medication Sig Dispense Refill Melatonin 5 MG Tab Dispersible tablet Take 5 mg by mouth As directed as needed. faMOTIdine 20 MG Tab tablet Take 20 mg by mouth 2 times daily. Folic Acid 400 MCG Tab Take 400 mcg by mouth daily. ibuprofen 600 MG Tab tablet Take 600 mg by mouth every 6 hours as needed. labetalol 100 MG Tab tablet Take 100 mg by mouth 2 times daily. ondansetron 4 MG Tab tablet Take 1 tablet by mouth every 8 hours as needed for Nausea. (Patient nottaking: Reported on 07/16/2018 ) 30 tablet 1 28-0.8 MG Tab tablet Take 1 tablet by mouth daily. Vit-Fe Fumarate-FA (PNV PLUS MULTIVITAMIN) 27-1 MG Tab Take 1 tablet by mouth daily. 3 No facility-administered medications prior to visit. SURGICAL HISTORY: Past Surgical History: Procedure Laterality Date SECTION TONSILLECTOMY ADENOIDECTOMY FAMILY HISTORY: Family History Problem Relation Age of Onset Other - Specify Mother Lupus Erythematous Heart Disease - Other Maternal Uncle Other - Specify Maternal Uncle Hodgkins Lipid Disorder Maternal Grandmother Uterine Cancer Maternal Grandmother Hypertension Other close relative Thyroid Disease Other close relative SOCIAL HISTORY: Social History Social History Marital status: Single Spouse name: N/A Number of children: N/A Years of education: N/A Social History Main Topics Smoking status: Heavy Tobacco Smoker Packs/day: 0.50 Types: Cigarettes Smokeless tobacco: Never Used Alcohol use No Drug use: No Sexual activity: Yes Partners: Male control/ protection: None Other Topics Concern Not on file Social History Narrative No narrative on file ALLERGIES: Anesthesia s-i-40 [propofol] and Hydroxyzine Physical Exam Constitutional: She is oriented to person, place, and time and well-developed, well-nourished, and in no distress. HENT: Head: Normocephalic and atraumatic. Nose: Mucosal edema and rhinorrhea present. Eyes: Pupils are equal, round, and reactive to light. Conjunctivae are normal. Neck: Normal range of motion. Cardiovascular: Normal rate, regular rhythm, normal heart sounds and intact distal pulses. No murmur heard. Pulmonary/Chest: Effort normal and breath sounds normal. No respiratory distress. Abdominal: Soft. Bowel sounds are normal. Musculoskeletal: Normal range of motion. Neurological: She is alert and oriented to person, place, and time. GCS score is 15. Skin: Skin is warm and dry. Psychiatric: Affect normal. RADIOLOGY: No orders to display DIAGNOSTIC DATA: No results found for this visit on 07/16/18. PROCEDURES: FINAL IMPRESSION: ICD-10-CM 1. Acute upper respiratory infection J06.9 PATIENT REFERRED TO: PCP for follow up care in 2-3 days, sooner if no symptom improvement DISPOSITION/PLAN: Follow up with your pcp as needed for continuum of care. Take meds as ordered Tylenol or Motrin as needed for pain and discomfort DISCHARGE MEDICATIONS: New Prescriptions BENZONATATE (TESSALON PERLES) 100 MG CAP CAPSULE Take 1 capsule by mouth 3 times daily as needed. GUAIFENESIN 600 MG TAB SR 12 HR TABLET SR Take 1 tablet by mouth 2 times daily. Discontinued Medications No medications on file * Amalia Nichols RN - 07/16/2018 4:40 PM EST Reviewed new prescription with patient and patient verbalized understanding. Discharge instructions reviewed with patient and no further questions from patient. Patient discharged. in this encounter Assessments Diagnosis Acute upper respiratory infection- Primary Acute upper respiratory infections of unspecified site Diagnosis Contusion of head, unspecified part of head, initial encounter- Primary Diagnosis Chronic dental pain Unspecified disorder of the teeth and supporting structures Diagnosis Severe episode of recurrent major depressive disorder, without psychotic features- Primary Suicide ideation Suicidal ideation Methamphetamine abuse, episodic Diagnosis Menorrhagia with irregular cycle- Primary Excessive or frequent menstruation Discharge Instructions * Instructions* Jorge Rodrigues MD - 06/10/2019 Fit for incarceration * Attachments The following attachments cannot be sent through Care Everywhere. * Head Injury ([place]) documented in this encounter* Instructions* Isidro Knott DO - 10/26/2019 Please feel free return to the hospital if your symptoms worsen or any new concerning symptoms develop worsening pain, worsening swelling, fever/chills, difficulty breathing. Recommend following up with dental clinic. Please call them today to schedule/confirm appointment. Recommend alternating doses of Tylenol and Motrin as needed for pain. Can alternate these medications every 3 hours. Please take penicillin as prescribed in its entirety. * Attachments The following attachments cannot be sent through Care Everywhere. * Tooth and Gum Pain ([place]) documented in this encounter* Instructions* Kehinde Lew MD - 10/22/2018 CLEARED MEDICALLY for psychiatric evaluation * Attachments The following attachments cannot be sent through Care Everywhere. * Making a Safety Plan ([facility]) ([place]) * Depression ([facility]) ([place]) documented in this encounter* Instructions* Gold Choi MD - 10/08/2018 Follow-up with your doctor as scheduled. documented in this encounter Reason for Referral Status Reason Specialty Diagnoses / Procedures Referred By Contact Referred To Contact New Request Procedures ECG Kehinde Lew MD [address] [place] [address] Specialty Diagnoses / Procedures Referred By Contac t Referred To Contact Procedures ECG Levi Vera DO [address] [place] [address] Referral ID Status Reason Start Date Expiration Date V isits Requested Visits Authorized [id number] New Request 06/26/2022 07/21/2023 1 1 Specialty Diagnoses / Procedures Referred By Contac t Referred To Contact MR IMAGING Diagnoses Mid back pain Fusion of spine of thoracolumbar region Spinal stenosis of lumbar region without neurogenic claudication Weakness Procedures MRI LUMBAR SPINE WO IVCON MRI SPINAL CANAL LUMBAR W/O CONTRAST MATERIAL Arpan Cuello, DIGITAL ANALYTICS MANAGER.[employer] [address] [place] [address] [place] [id number] Referral ID Status Reason Start Date Expiration Date V isits Requested Visits Authorized [id number] Closed Auto-Generate d Referral 09/08/2023 11/07/2023 1 1 Specialty Diagnoses / Procedures Referred By Contac t Referred To Contact MR IMAGING Diagnoses Mid back pain Fusion of spine of thoracolumbar region Pathological fracture, other site, initial encounter for fracture Weakness Procedures MRI THORACIC SPINE WO IVCON MRI SPINAL CANAL THORACIC W/O CONTRAST MATRL Arpan Cuello, DIGITAL ANALYTICS MANAGER.[employer] [address] [place] [address] [place] [address] Referral ID Status Reason Start Date Expiration Date V isits Requested Visits Authorized [id number] Closed Auto-Generate d Referral 09/06/2023 11/05/2023 1 1 Specialty Diagnoses / Procedures Referred By Contac t Referred To Contact [facility] Diagnoses Fusion of spine of thoracolumbar region Weakness Procedures CONSULT TO PHYSICAL MEDICINE AND REHABILITATION OFFICE/OUTPATIENT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
== END 2023-12-26 19:59 | disposition home or self-care (01) ==
LOC: SLEEP 19:59
PROVIDERS: PCP Nurse Practitioner; Visit Provider Nurse Practitioner
DX: G47.33 Obstructive sleep apnea (adult) (pediatric) (principal)
CPT/HCPCS: 95811

== ENCOUNTER 2024-01-02 15:28 | Outpatient (OUT) | payer OTHER, SELFPAY ==
--- NOTE | 2024-01-02 15:33 | XR_ITS ---
The [address] [address] Patient Name: HUY KOVACS MRN: [id number] date: 1995 Sex: F Assigned Patient Location: [facility] Current Patient Location: Accession/Order Number: [id number] Exam Date: 01/02/2024 15:42 Report Date: 01/04/2024 05:05 At the request of: EARLINE CHEN Procedure: XR knee LT 4V PROCEDURE: XR knee LT 4V HISTORY: Fall, Left Knee Pain, Swelling COMPARISON: None. FINDINGS: BONES:No fracture, dislocation, bone lesion. Diffuse osteopenia. SOFT TISSUES:No visible soft tissue swelling. EFFUSION:Moderate joint effusion. OTHER: Negative. XR/XR knee LT 4V IMPRESSION: 1. Joint effusion. 2. No acute bone abnormality. 3. Prominent osteopenia suggesting disuse. Electronically authenticated by: HARRIS ECHAVARRIA Date: 01/04/2024 05:05
== END 2024-01-02 15:29 | disposition home or self-care (01) ==
LOC: RAD 15:29
PROVIDERS: PCP Nurse Practitioner; Visit Provider Nurse Practitioner
DX: M25.562 Pain in left knee (principal); M25.462 Effusion, left knee
CPT/HCPCS: 73564

== ENCOUNTER 2024-02-07 10:09 | Outpatient (OUT) | payer OTHER, SELFPAY ==
--- NOTE | 2024-02-07 10:15 | MR_ITS ---
[facility] [id number] Patient Name: HUY KOVACS MRN: [id number] date: 1995 Sex: F Assigned Patient Location: MRI Current Patient Location: Accession/Order Number: [id number] Exam Date: 02/07/2024 10:20 Report Date: 02/08/2024 13:05 At the request of: EARLINE CHEN Procedure: MR knee LT wo con EXAM: MR knee LT wo con REASON FOR EXAM: Left Knee Injury, Recent Fall, Left Knee Pain. TECHNIQUE: Multiplanar, multisequence imaging of the left knee was performed without contrast COMPARISON: Radiograph 01/02/2024. FINDINGS: Laterally, the iliotibial band, fibular collateral ligament, popliteus tendon biceps tendon are intact. The ACL is intact. Lateral meniscus demonstrates normal morphology and signal without tear. The lateral articular cartilage demonstrates low-grade chondrosis. There is bone marrow edema involving the posterior lateral tibial plateau with associated trabecular microfracture potentially reflect a nondisplaced fracture. Medially, the medial collateral ligament is intact. The PCL is intact. The medial meniscus demonstrates normal morphology and signal without tear. Bone contusion and trabecular microfracture involving the peripheral margin the medial femoral condyle. The extensor mechanism is intact. There is a comminuted, nondisplaced fracture involving the patella. No cortical step off of the articular surface. Low-grade chondrosis of the patellofemoral cartilage. The remaining bone marrow signal is without fracture. Trace joint effusion. The regional musculature is without muscle strain or tendon tear. There is diffuse atrophy of the muscular surrounding the left knee. MR/MR knee LT wo con IMPRESSION: 1. Comminuted, nondisplaced patella fracture. 2. Probable bone contusion/impaction fracture involving the peripheral margin the medial femoral condyle and the posterior lateral tibial plateau. 3. Intact menisci, cruciate and collateral ligaments. Electronically authenticated by: STANTON ARANGO Date: 02/08/2024 13:05
== END 2024-02-07 10:10 | disposition home or self-care (01) ==
LOC: MRI 10:10
PROVIDERS: PCP Nurse Practitioner; Visit Provider Nurse Practitioner
DX: M25.562 Pain in left knee (principal); S82.045A Nondisplaced comminuted fracture of left patella, initial encounter for closed fracture
CPT/HCPCS: 73721

== ENCOUNTER 2024-03-03 17:58 | Emergency (ER) | payer OTHER, SELFPAY ==
[2024-03-03 18:04] VITALS: BP 134/84; PULSE 89; TEMP 37.2; O2SAT 98; BMI 29.3
--- OUTSIDE RECORDS SUMMARY | 2024-03-03 18:09 | XMS_ITS | CCD ---
Author Organization [facility] Inform ion Partnership [facility] Care Team Providers Care Customer Account Administrator Name Role Phone Damian, Timoteo Unavailable Unavailable Catawba, Timoteo Unavailable Unavailable Catawba, Timoteo Unavailable Unavailable LAUTZENHEISER, WENDY Unavailable Unavailabl [...] Unavailabl e LAUTZENHEISER, WENDY Unavailable Unavailabl e RACHELOON ROMAN Unavailable Unavailable RAHMON, ROMAN Unavailable Unavailable LAUTZENHEISER, WENDY Unavailable Unavailabl e Damian, Timoteo Unavailable Unavailable Damian, Timoteo Unavailable Unavailable LAUTZENHEISER, WENDY Unavailable Unavailabl e Damian, Timoteo Unavailable Unavailable DAR MELVIN Unavailable Unavailable DAR MELVIN Unavailable Unavailable LAUTZENHEISER, WENDY Unavailable Unavailabl e Lautzenheiser, Wendy E Unavailable [phone] Jocelyn Bowen CNM Unavailable Unavailable None Unavailable Unavailable Rao, Audrey J Unavailable Unavailable Lautzenheiser, Wendy Unavailable Unavailabl e Rao, Audrey J Unavailable Unavailable Lautzenheiser, Wendy Unavailable Unavailabl e Rao, Audrey J Unavailable Unavailable Jaime Wendy Unavailable Unavailabl e Rao, Audrey J Unavailable Unavailable None Unavailable Unavailable Rao, Audrey J Unavailable Unavailable Jaime Wendy Unavailable Unavailabl e Rao, Audrey J Unavailable Unavailable None Unavailable Unavailable Susannah Long Unavailable Unavailable Jaime Wendy Unavailable Unavailabl e Rao, Audrey J Unavailable Unavailable Jaime Wendy Unavailable Unavailabl e Aro, Audrey J Unavailable Unavailable Jaime, Wendy Unavailable Unavailabl e Rao, Audrey J Unavailable Unavailable Pothast CNM, Lenora Jimenez Unavailable Unavailabl e None Unavailable Unavailable Andrés CNM, Jocelyn John Unavailable Unavailable None Unavailable Unavailable Wendy Sandoval Primary Care Provider BASHIR BENITEZ Attending UnavailWENDY Kaufman Primary Care UnavailBASHIR Watts Attending Unavailcynthia e WENDY SANDOVAL Primary Care Unavailcynthia e BASHIR BENITEZ Attending Unavailabl e MATHEW OTT F Referring Unavailable WENDY SANDOVAL Primary Care UnavailWendy Kaufman Primary Care Provider Yaneli RODRIGUEZ Primary Care Physician Wendy Sandoval MD Primary Care Provider TETE GUSTAFSON Attending Unavailable TETE GUSTAFSON Admitting Unavailable WENDY SANDOVAL Primary Care Unavaila ble SYSTEM, PROVIDER NOT IN Referring Unavaila ble WENDY SANDOVAL Primary Care Unavaila ble LEVI BUITRAGO Attending Unavailable Unavailable Primary Care Provider Unavailabl e Unavailable Primary Care Provider Unavailabl e ANDREW ., DR HERNANDEZ Attending Unavailable REQUEST, NONE LISTED Primary Care Unavaila ble ANDREW ., DR HERNANDEZ Admitting Unavailable REQUEST, DR PACHECO LISTED Primary Care Unavaila ble MARY CARMEN HORTON Admitting Unavailable MARY CARMEN HORTON Consulting Unavailable MARY CARMEN HORTON Attending Unavailable ANDREW ., DR HERNANDEZ Consulting Unavailable ANDREW ., DR HERNANDEZ Attending Unavailable YANELI RODRIGUEZ Primary Care Unavailable ANDREW ., DR HERNANDEZ Admitting Unavailable Prabhu Ritter Unavailable Lamb CLOTH DOUBLING MACHINE OPERATOR, [facility] Primary Care Provider Unava ilable LAMB, YANELI Primary Care Unavailable AHAMMAD, GETACHEW Referring Unavailable LAMB, YANELI Primary Care Unavailable AHAMMAD, GETACHEW Referring Unavailable LAMB, YANELI Primary Care Unavailable AHAMMAD, GETACHEW Referring Unavailable LAMB, YANELI Primary Care Unavailable AHAMMAD, GETACHEW Referring Unavailable LAMB, YANELI Primary Care Unavailable ALTAF DANIELS Consulting Unavailable AHAMMAD, GETACHEW Admitting Unavailable AHAMMAD, GETACHEW Attending Unavailable YEHUDA OROURKE Consulting Unavailable AFANEHFATOU Consulting Unavail able LAMB, YANELI Primary Care Unavailable AHAMMAD, GETACHEW Referring Unavailable Gustavo PIPE ORGAN INSTALLER.Earline GRAY Unavailable RAKESH, ARPAN Referring Unavailable RAKESH, ARPAN Referring Unavailable RAKESH, ARPAN Referring Unavailable Gustavo PIPE ORGAN INSTALLER.Earline GRAY Unavailable Froilan BROWN, Amber Unavailable Froilan BROWN, Amber Unavailable LAMB, YANELI Primary Care Unavailable JACKS, DEB W Referring Unavailable LAMB, YANELI Primary Care Unavailable JACKS, DEB W Referring Unavailable LAMB, YANELI Primary Care Unavailable JACKS, DEB W Referring Unavailable LAMB, YANELI Primary Care Unavailable JACKS, DEB W Referring Unavailable LAMB, YANELI Primary Care Unavailable JACKS, DEB W Referring Unavailable LAMB, YANELI Primary Care Unavailable JACKS, DEB W Referring Unavailable LAMB, YANELI Primary Care Unavailable JACKS, DEB W Referring Unavailable LAMB, YANELI Primary Care Unavailable JACKS, DEB W Referring Unavailable LAMB, YANELI Primary Care Unavailable JACKS, DEB W Referring Unavailable LAMB, YANELI Primary Care Unavailable JACKS, DEB W Referring Unavailable LAMB, YANELI Primary Care Unavailable JACKS, DEB W Referring Unavailable JACKS, DEB W Referring Unavailable LAMB, YANELI Primary Care Unavailable LAMB, YANELI Primary Care Unavailable JACKS, DEB W Referring Unavailable LAMB, YANELI Primary Care Unavailable JACKS, DEB W Referring Unavailable LAMB, [facility] Primary Care Unavailable JACKS, DEB W Referring Unavailable LAMB, [facility] Primary Care Unavailable JACKS, DEB W Referring Unavailable LAMB, [facility] Primary Care Unavailable JACKS, DEB W Referring Unavailable LAMB, YANELI Primary Care Unavailable JACKS, DEB W Referring Unavailable JACKS, DEB W Referring Unavailable LAMB, [facility] Primary Care Unavailable JACKS, DEB W Referring Unavailable LAMB, [facility] Primary Care Unavailable LAMB, [facility] Primary Care Unavailable JACKS, DEB W Referring Unavailable LAMB, YANELI Primary Care Unavailable JACKS, DEB W Referring Unavailable LAMB, [facility] Primary Care Unavailable JACKS, DEB W Referring Unavailable LAMB, [facility] Primary Care Unavailable JACKS, DEB W Referring Unavailable LAMB, YANELI Primary Care Unavailable JACKS, DEB W Referring Unavailable LAMB, YANELI Primary Care Unavailable JACKS, DEB W Referring Unavailable LAMB, [facility] Primary Care Unavailable JACKS, DEB W Referring Unavailable LAMB, [facility] Primary Care Unavailable JACKS, DEB W Referring Unavailable LAMB, [facility] Primary Care Unavailable JACKS, DEB W Referring Unavailable LAMB, [facility] Primary Care Unavailable JACKS, DEB W Referring Unavailable LAMB, [facility] Primary Care Unavailable JACKS, DEB W Referring Unavailable GILLIAN MILLAN Attending Unavailable NEMUNAITIS, NATY MACDONALD Referring Unavai lable NEMUNAITIS, NATY MACDONALD Referring Unavai lable Jaime BROWN, Wendy Primary Care Provider MIREYA VIEIRA Attending Unavailable SELF, SELF Referring Unavailable JAIME WENDY Primary Care Unavailabl e VALERIA MONTOYA Attending Unavailable HILLSSARAY Referring Unavailable HILLSSARAY Attending Unavailable Gustavo, Earline Moran Attending Unavailable Gustavo, Earline Moran Attending Unavailable Gustavo, Earline Moran Attending Unavailable Gustavo, Earline Moran Attending Unavailable Gustavo, Earline Moran Attending Unavailable Gustavo, Earline Moran Attending Unavailable Gustavo, Earline Moran Attending Unavailable Gustavo, Earline Moran Attending Unavailable Gustavo, Earline Moran Attending Unavailable Gustavo, Earline Moran Attending Unavailable Gustavo, Earline Moran Attending Unavailable Gustavo, Earline Moran Attending Unavailable Gustavo, Earline Moran Attending Unavailable Gustavo, Earline Moran Attending Unavailable Gustavo, Earline Moran Attending Unavailable Gustavo, Earline Moran Attending Unavailable Gustavo, Earline Moran Attending Unavailable Donny Hernandez Attending Unavailab Donny Lynne Admitting Unavailab le NO FAMILY, PHYSICIAN Primary Care Unavailable ARPAN CAMERON Referring Unavailable SPANTANGELA KENNY Attending Unavailable NEMUNAITIS, NATY MACDONALD Attending Unavai TANGELA Butler Referring Unavailable NEMUNAITIS, NATY MACDONALD Referring Unavai lable AMBER BLEDSOE Attending Unavailable NEMUNAITIS, NATY MACDONALD Referring Unavai lable WARBELSHASTA Referring Unavailable NEME MERCANTE, KAREN Attending Unavailabl e ARPAN CAMERON Attending Unavailable GUSTAVO, EARLINE MORA Referring Unavailable Allergies Allergy Classification Reported Allergen(s) Allergy Type Date of Onset Reaction(s) Facility Adhesive Tape (2 sources) Silicone adhesive tape Substance Allergy 05-06-20 23 [facility]ching, [facility] Antihistamines (2 sources) hydrOXYzine Drug Allergy 12-15-19 18 Rash [facility] DULoxetine (4 sources) DULoxetine Drug Allergy 07-21-19 23 Other (See Comments) [facility] (20 sources) hydrOXYzine; Translations: [hydroxyzine] Drug Allergy 12-15-19 18 Rash, Other: See Comments [facility] Work Phone: (10 sources) propofol; Translations: [propofol] Drug Allergy 12-20-19 18 Anaphylaxis [facility] Work Phone: (1 source) Anesthetics - [place]ide Type; Translations: [Anesthetics - [place]ide Type] Propensity to adverse reactions (disorder) 05-31-20 [facility] Repository (1 source) Anesthetics - [place] Type- Parabens; Translations: [Anesthetics - [place] Type- Parabens] Propensity to adverse reactions (disorder) 05-31-20 18 [facility] Repository (7 sources) Anesthetics, Amide; Translations: [Anesthetics, Amide] Propensity to adverse reactions (disorder) 04-09-20 18 [facility] Repository (7 sources) Anesthetics, [place]; Translations: [Anesthetics, [place]] Propensity to adverse reactions (disorder) 04-09-20 [facility] Repository (7 sources) Anesthetics, Halogenated; Translations: [Anesthetics, Halogenated] Propensity to adverse reactions (disorder) 04-09-20 [facility] Repository (5 sources) Hypochlorite Drug Allergy 05-04-20 18 [facility] [email or web address] (20 sources) Hydroxyquinolines Propensity to adverse reactions to drug 08-23-19 19 Other (See Comments) [employer] (2 sources) Acetaminophen Drug Allergy 08-23-19 19 [employer] [place] (2 sources) Ibuprofen Drug Allergy 08-23-19 19 [employer] [place] (2 sources) Other Propensity to adverse reactions 08-23-19 19 [place] ([place] DULoxetine Drug Allergy 07-21-19 23 Other (See Comments) [employer] (9 sources) Silicone adhesive tape Propensity to adverse reactions to drug 05-06-20 23 Itching, Rash [employer] (20 sources) DULoxetine; Translations: [DULOXETINE] Drug Allergy 09-07-19 24 Other: See Comments [employer] (1 source) Hypochlorite Drug Allergy 05-04-[address] [facility] (1 source) DULoxetine; Translations: [Cymbalta] Drug Allergy [facility] Repository (1 source) Hypochlorite; Translations: [sodium hypochlorite topical] Drug Allergy 05-03-20 [facility] Repository (1 source) No Known Medication Allergies; Translations: [No Known Medication Allergies] Propensity to adverse reactions (disorder) [facility] Repository NEGATED: Highlighted row has been ruled out! (12 sources) Other Propensity to adverse reactions 08-23-19 [facility] [employer] Work Phone: Medications Current Medications Medication Drug Class(es) Dates Sig (Normalized) Sig (Original) acetaminophen 500 mg oral tablet (17 sources) Start: 07-01-2022 acetaminophen (TYLENOL) tablet 1,000 mg Start: 10-26-2019 acetaminophen (TYLENOL) tablet 650 mg Start: 10-26-2019 End: 01-03-2023 take 2 tablets by mouth every six hours as needed for pain acetaminophen (TYLENOL) 325 MG tablet Take 2 tablets by mouth every 6 hours as needed for Pain 40 tablet 0 10/26/2019 07/05/2022 Discontinued (Stop Taking at Discharge) aspirin/acetaminophen/caffei ne (EXCEDRIN EXTRA STRENGTH ORAL) (13 sources) aspirin/acetamin ophen/caffeine (EXCEDRIN EXTRA STRENGTH ORAL) Take by mouth two times a day. Active aspirin/acetamin ophen/caffeine (EXCEDRIN EXTRA STRENGTH ORAL) Take by mouth two times a day. 0 Active Baclofen (20 sources) gamma-Aminobutyric Acid-ergic Agonist Start: 11-17-2023 End: 08-13-2024 take 1 tablet by mouth three times daily baclofen 15 mg tablet Take 1 tablet by mouth three times a day. 270 tablet 11/17/2023 08/13/2024 Active Start: 11-17-2023 End: 08-13-2024 take 1 tablet [...] 08/04/2022 Active benzonatate 100 mg oral capsule (8 sources) Non-narcotic Antitussive Start: 07-16-2018 take 1 capsule by mouth three times daily as needed benzonatate (TESSALON PERLES) 100 MG Cap capsule Take 1 capsule by mouth 3 times daily as needed. 20 capsule 07/16/2018 Active bisacodyl 10 mg rectal suppository [...] MG tablet take 2 tablets by mo ut twice daily busPIRone (BUSPAR) 15 mg tablet Take 30 mg by mouth two times a day. Active End: 10-26-2019 take 1 tablet by mouth twice daily busPIRone (BUSPAR) 7.5 MG tablet Take 7.5 mg by mouth 2 times daily 0 10/26/2019 Discontinued (Alternate therapy) End: 06-10-2019 take 7.5 mg by mouth two times weekly BusPIRone HCl (BUSPAR PO) Take 7.5 mg by mouth twice a week. 0 06/10/2019 Discontinued cloNIDine hydrochloride 0.3 mg oral tablet (13 sources) Central alpha-2 Adrenergic Agonist Start: 06-27-2023 cloNIDine HCl (CATAPRES) 0.3 mg tablet Take 0.3 mg by mouth. 06/27/2023 Active diclofenac sodium 0.01 mg/mg topical gel (4 sources) Nonsteroidal Anti-inflammatory Drug Start: 12-30-2022 diclofenac sodium (VOLTAREN) 1 % GEL docusate sodium 50 mg / sennosides, assisted 8.6 mg oral tablet (6 sources) Start: [...] Status: Ordered etonogestrel 68 mg drug implant (8 sources) Progestin Etonogestrel (NEXPLANON) 68 MG SC implant 68 mg by Implant route once. Active gabapentin 300 mg oral capsule (9 [...] Active Start: 07-08-2022 take 1 capsule by mo ut every eight hours gabapentin (NEURONTIN) capsule 900 [...] hours, First dose (after last modification) on 06/27/22 at 0930, Until Discontinued Start: 06-26-2022 End: 06-27-2022 take 1 capsule by mouth every eight hours gabapentin (NEURONTIN) capsule 300 mg 12 hr guaiFENesin 600 mg extended release oral tablet (8 sources) Start: 07-16-2018 take 1 tablet by mouth twice daily guaiFENesin 600 MG Tab SR 12 HR tablet SR Take 1 tablet by mouth 2 times daily. 20 tablet 07/16/2018 Active Handicap Placard MISC (12 sources) Start: 01-13-[address] MISC [...] Start: 04-14-2020 take 1 tablet by renee th three times daily as needed for pain [...] 06-10-2019 ibuprofen (MOTRIN) tablet 80 0 mg take 1 tablet by renee th every eight hours as needed ibuprofen (MOTRIN) 800 mg tablet Take 800 mg by mouth three times a day as needed. Active End: 06-10-2019 take 1 tablet by mouth every six hours as needed ibuprofen 600 MG Tab tablet Take 600 mg by mouth every 6 hours as needed. 0 06/10/2019 Discontinued lamoTRIgine 150 mg oral tablet (20 sources) Mood Stabilizer, Anti-epileptic Agent Start: 02-28-2024 lamoTRIgine (LAMICTAL) 150 mg tablet 1 tablet twice a day 180 tablet 2 02/28/2024 Active Start: 01-01-2024 take 1 tablet by renee twice daily lamoTRIgine 25 MG tablet Take 1 tablet by mouth Twice daily. 01/01/2024 Active Start: 12-11-2023 End: 12-10-2024 take 1 tablet by mouth twice daily lamoTRIgine 100 MG tablet Take 1 tablet by mouth Twice daily. 12/11/2023 12/10/2024 Active Start: 07-05-2022 take 3 tablets by mo uth at bedtime lamoTRIgine (LAMICTAL) 25 MG tablet [...] 2 times d aily, First dose on Mon06/26/22 at 0900, Until Discontinued Start: 07-21-2021 Lamictal Oral, BID, Refills(s) 0 Start Date: 07/21/21 Status: Ordered lamoTRIgine (JOHNSON ICTAL) 100 mg tablet Take 125 mg by mouth two times a day. Active End: 07-05-2022 take 2 tablets by mouth [...] mg by mouth As directed as needed. Active End: 10-26-2019 take 1 mg by [...] patch ondansetron 4 mg disintegrating oral tablet (20 sources) Serotonin-3 Receptor Antagonist Start: 03-08-2023 ondansetron (ZOFRAN-ODT) 4 MG disintegrating tablet DISSOLVE 1 TABLET ON THE TONGUE DAILY NEEDED FOR NAUSEA AND VOMITING 45 tablet 0 03/08/2023 Active Start: 12-20-2017 take 1 tablet by renee th every eight hours as needed for nausea ondansetron 4 MG Tab tablet Indications: Nausea and vomiting, intractability of vomiting not specified, unspecified vomiting type Take 1 tablet by mouth every 8 hours as needed for Nausea. 30 tablet 1 12/20/2017 Active 24 hr oxybutynin chloride 5 mg extended release oral tablet (20 sources) Cholinergic Muscarinic Antagonist Start: 02-03-2023 take [...] Take 10 mg by mouth once daily. Active oxyCODONE hydrochloride 5 mg oral tablet [...] thoracic vertebra, unspecified fracture morphology, initial encounter ([facility]) Take 1 tablet by mouth every 6 [...] pantoprazole 40 mg delayed release oral tablet (11 sources) Proton Pump Inhibitor Start: 05-23-2023 take 1 tablet by mouth once daily before breakfast pantoprazole (PROTONIX) 40 MG tablet Take 1 tablet by mouth every morning (before breakfast) 30 tablet 3 05/23/2023 Active Phentermine (14 sources) Sympathomimetic Amine Anorectic phentermine HCl (ADIPEX-P ORAL) Take by mouth once daily. Active take 1 capsule by mouth once hussein ly Phentermine HCl 37.5 MG capsule Take 1 capsule by mouth daily. Active phentermine HCl (ADIPEX-P ORAL) Take by mouth once daily. 0 Active Pnv Plus Multivitamin 27-1 Mg Po Tabs (2 sources) Start: 11-22-2017 take 1 tablet by mouth once daily Vit-Fe Fumarate-FA (PNV PLUS MULTIVITAMIN) 27-1 MG Tab Take 1 tablet by mouth daily. 3 11/22/2017 Active polyethylene glycol 3350 98681 mg powder for oral solution (6 sources) Osmotic Laxative Start: 06-26-2022 End: 08-05-2022 polyethylene glycol (GLYCOLAX) 17 GM/SCOOP powder Take by mouth daily 0 07/28/2022 Active pregabalin 300 mg oral capsule (20 sources) Start: 12-13-2023 take 1 capsule by mouth twice daily pregabalin 300 MG capsule Take 1 capsule by mouth Twice daily. 12/13/2023 Active 28-0.8 Mg Po Tabs (2 sources) take 1 tablet by mouth once daily 28-0.8 MG Tab tablet Take 1 tablet by mouth daily. Active QUEtiapine 25 mg oral tablet (20 sources) Atypical Antipsychotic Start: 12-01-2022 QUEtiapine (SEROQUEL) [...] 100 mg by mouth daily at bedtime. Active QUEtiapine Fumar ate (SEROQUEL PO) Take by mouth. Active QUEtiapine Fumar ate (SEROQUEL PO) Take by mouth. 0 Active sertraline 50 mg oral tablet (16 sources) Serotonin Reuptake Inhibitor Start: 02-13-2024 take 1 tablet by mouth once daily Sertraline 50 MG tablet TAKE 1 & 1/2 (ONE AND ONE-HALF) TABLETS BY MOUTH DAILY 02/13/2024 Active take 1 tablet by mouth once annie y sertraline (ZOLOFT) 25 mg tablet Take 25 mg by mouth once daily. Active sodium chloride 1000 mg oral tablet (5 sources) Start: 07-07-2022 sodium chlorid e tablet 1 g Start: 06-27-2022 End: 06-27-2022 0.9 % sodium chloride infusi on Start: 06-26-2022 End: 07-06-2022 sodium chloride flush 0.9 % injection 5-40 mL Start: 06-26-2022 End: 06-26-2022 Sodium chloride 0.9% IV solu tion 500 mL tiZANidine 2 mg oral tablet (16 sources) Central alpha-2 Adrenergic Agonist Start: 11-17-2023 End: 02-15-2024 take 1 mg by mouth every six hours as needed tiZANidine (ZANAFLEX) 2 mg tablet Take 0.5 tablets by mouth every 6 hours as needed. 180 tablet 11/17/2023 Active take 1 tablet by renee th every six hours as needed tiZANidine (ZANAFLEX) 4 MG tablet Take 1 tablet by mouth every 6 hours as needed 0 Active traMADol hydrochloride 50 mg oral tablet (20 sources) Opioid Agonist Start: 02-15-2024 take 1 tablet by mouth every six hours as needed traMADol 50 MG tablet Take 1 tablet by mouth every 6 hours as needed. 02/15/2024 Active take 100 mg by mouth once daily traMADol 100 mg TM24 Take 100 mg by mouth once daily. Active take 2 tablets by mouth twice da carlos a traMADol 25 mg tablet Take 50 mg by mouth two times a day. Active take 2 tablets by mouth twice da carlos a traMADol 25 mg tablet Take 50 mg by mouth two times a day. 0 Active take 1 tablet by mouth [...] Painful mouth; Translations: [Chronic dental pain] Episodic Disorders of lipid metabolism (1 source) Mixed hyperlipidemia; Translations: [Mixed hyperlipidemia] 01-09-2024 Chronic Epilepsy; convulsions (5 sources) Recurrent seizure; Translations: [Epilepsy, unspecified, not intractable, without status epilepticus] Onset: 02-28-2024 01-23-2024 Chronic Epilepsy; convulsions (9 sources) Seizure; Translations: [Unspecified convulsions] Onset: 06-03-2022 Episodic Female infertility (4 sources) Female infertility, unspecified; Translations: [FEMALE INFERTILITY UNSPECIFIED] Onset: 01-12-2022 Chronic Hemorrhage during ; abruptio placenta; placenta previa (1 source) Hemorrhage in early , unspecified; Translations: [Hemorrhage in early , unspecified] Onset: 11-15-2017 Episodic Hepatitis (3 sources) Chronic viral hepatitis C; Translations: [Chronic hepatitis C] Onset: 09-17-2021 Chronic Hepatitis (2 sources) Viral hepatitis C 02-03-2020 Episodic Menstrual disorders (4 sources) Amenorrhea, unspecified; Translations: [Menometrorrhagia] Onset: 02-23-2017 Chronic Mood disorders (1 source) Severe recurrent major depression without psychotic features; Translations: [Severe episode of recurrent major depressive disorder, without psychotic features] Chronic Nausea and vomiting (2 sources) Nausea; Translations: [Nausea] Onset: 10-24-2017 Episodic Osteoporosis (1 source) Idiopathic osteoporosis; Translations: [Other osteoporosis without current pathological fracture] 01-09-2024 Chronic Other complications of (2 sources) Mild hyperemesis gravidarum; Translations: [Vomiting of , unspecified] Onset: 10-24-2017 Episodic Other congenital anomalies (3 sources) Other congenital malformations of spine, not associated with scoliosis; Translations: [Other congenital malformations of spine, not associated with scoliosis] Onset: 06-28-2023 Chronic Other connective tissue disease (15 sources) Neuropathic pain; Translations: [Neuralgia and neuritis, unspecified] Onset: 01-10-2023 01-10-2023 Episodic Other connective tissue disease (1 source) Spasticity; Translations: [Cramp and spasm] 11-20-2023 Episodic Other connective tissue disease (1 source) Neuralgia and neuritis, unspecified; Translations: [Neuropathic pain] Onset: 02-08-2024 Episodic Other diseases of bladder and urethra (3 sources) Neurogenic bladder; Translations: [Neuromuscular dysfunction of bladder, unspecified] 01-09-2024 Chronic Other diseases of bladder and urethra (1 source) Neuromuscular dysfunction of bladder, unspecified; Translations: [Neurogenic bladder] Onset: 01-31-2024 Chronic Other female genital disorders (2 sources) Abnormal [...] fracture with nonunion] Onset: 06-28-2023 Episodic Other fractures (1 source) Burst fracture of lumbar vertebra; Translations: [Stable burst fracture of unspecified lumbar vertebra, sequela] 02-08-2024 Episodic Other gastrointestinal disorders (2 sources) Neurogenic bowel; Translations: [Neurogenic bowel, not elsewhere classified] 01-09-2024 Chronic Other gastrointestinal disorders (1 source) Neurogenic bowel, not elsewhere classified; Translations: [Neurogenic bowel] Onset: 01-31-2024 Chronic Other gastrointestinal disorders (1 source) Constipation; Translations: [Constipation, unspecified] 11-21-2023 Episodic Other nervous system disorders (1 source) Other chronic pain Onset: 08-23-2018 Chronic Other non-traumatic joint disorders (2 sources) Joint pain 02-03-2020 Episodic Other non-traumatic joint disorders (1 source) Effusion of joint of left knee; Translations: [Effusion, left knee] 01-09-2024 Episodic Other non-traumatic joint disorders (1 source) Pain in left knee; Translations: [Pain in joint, lower leg] 01-09-2024 Episodic Other nutritional; endocrine; and metabolic disorders (5 sources) Obesity, unspecified; Translations: [Obese class II] [...] encounter for fracture] Onset: 2023 2023 Episodic Personality disorders (3 sources) Borderline personality disorder; Translations: [Borderline personality disorder] Onset: 01-31-2024 01-31-2024 Chronic Pulmonary heart disease (1 source) H/O: pulmonary embolus; Translations: [Personal history of pulmonary embolism] 01-10-2024 Episodic Residual codes; unclassified (1 source) Obstructive sleep apnea (adult) (pediatric); Translations: [Obstructive sleep apnea (adult) (pediatric)] Onset: 05-05-2023 Chronic Residual codes; unclassified (1 source) H/O Spinal surgery; Translations: [Other specified postprocedural states] 02-08-2024 Episodic Spinal cord injury (20 sources) Injury of [...] initial encounter] Onset: 10-19-2017 Episodic Substance-related disorders (5 sources) Nicotine dependence, unspecified, uncomplicated; Translations: [Amphetamine [...] Other Problems Problem Classification Problem Date Documented Da te Episodic/Chronic Abdominal pain (2 sources) Unspecified abdominal pain; Translations: [Unspecified abdominal pain] Onset: 06-30-2017 Episodic Conditions associated with dizziness or vertigo (3 sources) Dizziness and giddiness; Translations: [Dizziness and giddiness] Onset: 08-15-2017 Episodic Fever of unknown origin (1 source) Fever, unspecified; Translations: [Fever, unspecified] Onset: 08-15-2017 Episodic Influenza (1 source) Influenza due to unidentified influenza virus with other respiratory manifestations; Translations: [Flu due to unidentified influenza virus w oth resp manifest] Onset: 08-15-2017 Episodic Malaise and fatigue (6 sources) Asthenia; Translations: [Weakness] Onset: 2023 2023 Episodic Nonspecific chest pain (4 sources) Chest pain, unspecified; Translations: [Chest wall pain] Onset: 08-15-2017 02-03-2020 Episodic Other connective tissue disease (1 source) Cramp and spasm; Translations: [Spasticity] Onset: 11-17-2023 Episodic Other fractures (16 sources) Fracture of twelfth thoracic vertebra; Translations: [Wedge compression fracture of T11-T12 vertebra, initial encounter for closed fracture] Onset: 06-26-2022 Episodic Other fractures (5 sources) Wedge compression fracture of first lumbar vertebra, initial encounter for closed fracture; Translations: [Wedge compression fracture of first lumbar vertebra, initial encounter for closed fracture] Onset: 06-26-2022 Episodic Other fractures (14 sources) Compression fracture of lumbar spine; Translations: [Wedge compression fracture of first lumbar vertebra, initial encounter for closed fracture] Onset: 06-26-2022 Episodic Other fractures (14 sources) Closed fracture lumbar vertebra, burst ; [...] with routine healing] Onset: 07-06-2022 Episodic Other gastrointestinal disorders (1 source) Constipation, unspecified; Translations: [Constipation, unspecified constipation type] Onset: 11-17-2023 Episodic Other lower respiratory disease (1 source) [...] [Dorsopathy, unspecified] Onset: 05-08-2023 Episodic Substance-related disorders (9 sources) Maternal drug use; Translations: [Drug use complicating , second trimester] Onset: 12-25-2017 12-25-2017 Episodic Suicide and intentional self-inflicted injury (1 source) Suicidal thoughts; Translations: [Suicide ideation] Episodic Unclassified (1 source) SEVERE ABD PAIN Onset: 06-30-2017 Urinary tract infections (1 source) Cystitis, unspecified without hematuria; Translations: [Cystitis, unspecified without hematuria] Onset: 06-30-2017 Episodic Viral infection (9 sources) Herpes simplex type 2 infection; Translations: [Other specified abnormal immunological findings in serum] Onset: 12-25-2017 12-25-2017 Episodic Results Test Name Value Interpretation Reference Range Facility Ambulatory Visit Summaryon 0 02-27-2024 Ambulatory Visit Summary Ambulatory Visit Summary KAYLEEN KOVACS :1995 Visit Date:02/27/2024 Ambulatory Visit Instructions Your Diagnosis Vapes nicotine containing substance Former smoker BMI 29.0-29.9,adult Body mass index (BMI) of 85th to less than 95th percentile in overweight pediatric patient Body mass index [BMI] pediatric, 85th percentile to less than 95th percentile for age Your Care Team Attending Physician - Earline Koroma Primary Care Physician - Earline Koroma This Is Your Medications List ascorbic acid (Vitamin C 500 mg Tab) baclofen (baclofen 20 mg Tab) busPIRone (busPIRone 30 mg oral tablet) clonidine (cloNIDine 0.3 mg Tab) ergocalciferol (Vitamin D 50,000 intl units (1.25 mg) oral capsule) etodolac (etodolac 400 mg Tab) ibuprofen (ibuprofen 800 mg Tab) ibuprofen (ibuprofen 800 mg Tab) lamotrigine (lamotrigine 100 mg Tab) ondansetron (ondansetron 4 mg Dis Tab) oxybutynin (oxybutynin 10 mg ER Tab) phentermine (phentermine 37.5 mg Tab) pregabalin (pregabalin 300 mg Cap) quetiapine (quetiapine 100 mg Tab) sertraline (sertraline 50 mg Tab) tizanidine (tiZANidine 4 mg Tab) tramadol (traMADOL 50 mg Tab) tramadol (traMADol 100 mg/24 hours oral capsule, extended release) Procedures Performed Spinal fusion (2022), section, Tonsillectomy. Discharge Vitals Temperature (Oral) 36.5 ?C Heart Rate (Peripheral) 108 Respiratory Rate 18 Blood Pressure 136/86 Height 175.0 cm Height 69 in Weight 91.4 kg Weight 201.08 lb BMI 29.84 What to do next Scheduled Follow-Up Appointments 2023 10:00 AM EDT With: Earline Koroma Where: [place] [id number]- Medications What How Much When Why Instructions New phentermine (phentermine 37.5 mg Tab) 1 Tablets By Mouth Every day Pickup at [facility] Unchanged ascorbic acid (Vitamin C 500 mg Tab) 1 Tablets By Mouth Every day Back pain with history of spinal surgery Pain management Back pain Paraplegia Unchanged baclofen (baclofen 20 mg Tab) 1 Tablets By Mouth 3 times a day Back pain with history of spinal surgery Pain management Back pain Paraplegia Unchanged busPIRone (busPIRone 30 mg oral tablet) 1 Tablets By Mouth 2 times a day Unchanged clonidine (cloNIDine 0.3 mg Tab) See instructions TAKE 1 TABLET TWICE DAILY Unchanged ergocalciferol (Vitamin D 50,000 intl units (1.25 mg) oral capsule) 1 Capsules By Mouth Every week Back pain with history of spinal surgery Pain management Back pain Paraplegia Unchanged etodolac (etodolac 400 mg Tab) 1 Tablets By Mouth 2 times a day as needed for for pain Unchanged ibuprofen (ibuprofen 800 mg Tab) 1 Tablets By Mouth Every 8 hours 21 EA, 0 Refill(s), TAKE 1 TABLET BY MOUTH EVERY 8 HOURS NEEDED FOR PAIN Unchanged ibuprofen (ibuprofen 800 mg Tab) 1 Tablets By Mouth 3 times a day as needed for Pain 8-10 Unchanged lamotrigine (lamotrigine 100 mg Tab) See instructions 125mg bid increased by neurologist Unchanged ondansetron (ondansetron 4 mg Dis Tab) 1 Tablets By Mouth Every 6 hours as needed for Nausea/Vomiting Unchanged oxybutynin (oxybutynin 10 mg ER Tab) 1 Tablets By Mouth Every day Unchanged pregabalin (pregabalin 300 mg Cap) 1 Capsules By Mouth 2 times a day Unchanged quetiapine (quetiapine 100 mg Tab) 1 Tablets By Mouth Every day Unchanged sertraline (sertraline 50 mg Tab) 1.5 Tablets By Mouth Every day Unchanged tizanidine (tiZANidine 4 mg Tab) See instructions 1 tab(s) Oral every 6 hours as needed Unchanged tramadol (traMADol 100 mg/ 24 hours oral capsule, extended release) 1 Capsules By Mouth Every day Back pain with history of spinal surgery Pain management Back pain Paraplegia 30 day supply Unchanged tramadol (traMADOL 50 mg Tab) 1 Tablets By Mouth Every 12 hours as needed for for pain Back pain with history of spinal surgery Back pain 30 day supply Pharmacy Information [facility]: [address] [place], [place] [id number] [phone] Allergies Cymbalta (Suicide) hydrOXYzine (AOF, Eruption) propofol (Anaphylaxis) sodium hypochlorite topical (Unknown, Urticaria) Problems Ongoing - Any problem that you are currently receiving treatment for. Acute gastroenteritis Anxiety and depression Apnea Back pain Back pain with history of spinal surgery Bladder spasms BMI 32.0-32.9,adult Chronic hepatitis C Comminuted fracture of patella Constipation Diarrhea Encounter for weight management Gasping for breath H/O chest tube placement Hepatitis C Left knee injury Left otitis media Pain management Paraplegia Rib pain on left side Right-sided chest wall pain Seizure disorder Skin infection Sleep apnea Smoker Snoring Spinal cord injury at T7-T12 level Stomach cramps Witnessed episode of apnea Patient Survey You may receive a survey v (more content not included)... Normal [facility] Ambulatory Visit Summary Ambulatory Visit Summary KAYLEEN KOVACS :1995 Visit Date:02/27/2024 Ambulatory Visit Instructions Your Diagnosis Vapes nicotine containing substance Former smoker BMI 29.0-29.9,adult Body mass index (BMI) of 85th to less than 95th percentile in overweight pediatric patient Body mass index [BMI] pediatric, 85th percentile to less than 95th percentile for age Your Care Team Attending Physician - Earline Koroma Primary Care Physician - Earline Koroma This Is Your Medications List ascorbic acid (Vitamin C 500 mg Tab) baclofen (baclofen 20 mg Tab) busPIRone (busPIRone 30 mg oral tablet) clonidine (cloNIDine 0.3 mg Tab) ergocalciferol (Vitamin D 50,000 intl units (1.25 mg) oral capsule) etodolac (etodolac 400 mg Tab) ibuprofen (ibuprofen 800 mg Tab) ibuprofen (ibuprofen 800 mg Tab) lamotrigine (lamotrigine 100 mg Tab) ondansetron (ondansetron 4 mg Dis Tab) oxybutynin (oxybutynin 10 mg ER Tab) phentermine (phentermine 37.5 mg Tab) pregabalin (pregabalin 300 mg Cap) quetiapine (quetiapine 100 mg Tab) sertraline (sertraline 50 mg Tab) tizanidine (tiZANidine 4 mg Tab) tramadol (traMADOL 50 mg Tab) tramadol (traMADol 100 mg/24 hours oral capsule, extended release) Procedures Performed Spinal fusion (2022), section, Tonsillectomy. Discharge Vitals Temperature (Oral) 36.5 ?C Heart Rate (Peripheral) 108 Respiratory Rate 18 Blood Pressure 136/86 Height 175.0 cm Height 69 in Weight 91.4 kg Weight 201.08 lb BMI 29.84 What to do next Scheduled Follow-Up Appointments 2023 10:00 AM EDT With: Earline Koroma Where: [place] [id number]- Medications What How Much When Why Instructions Unchanged ascorbic acid (Vitamin C 500 mg Tab) 1 Tablets By Mouth Every day Back pain with history of spinal surgery Pain management Back pain Paraplegia Unchanged baclofen (baclofen 20 mg Tab) 1 Tablets By Mouth 3 times a day Back pain with history of spinal surgery Pain management Back pain Paraplegia Unchanged busPIRone (busPIRone 30 mg oral tablet) 1 Tablets By Mouth 2 times a day Unchanged clonidine (cloNIDine 0.3 mg Tab) See instructions TAKE 1 TABLET TWICE DAILY Unchanged ergocalciferol (Vitamin D 50,000 intl units (1.25 mg) oral capsule) 1 Capsules By Mouth Every week Back pain with history of spinal surgery Pain management Back pain Paraplegia Unchanged etodolac (etodolac 400 mg Tab) 1 Tablets By Mouth 2 times a day as needed for for pain Unchanged ibuprofen (ibuprofen 800 mg Tab) 1 Tablets By Mouth Every 8 hours 21 EA, 0 Refill(s), TAKE 1 TABLET BY MOUTH EVERY 8 HOURS NEEDED FOR PAIN Unchanged ibuprofen (ibuprofen 800 mg Tab) 1 Tablets By Mouth 3 times a day as needed for Pain 8-10 Unchanged lamotrigine (lamotrigine 100 mg Tab) See instructions 125mg bid increased by neurologist Unchanged ondansetron (ondansetron 4 mg Dis Tab) 1 Tablets By Mouth Every 6 hours as needed for Nausea/Vomiting Unchanged oxybutynin (oxybutynin 10 mg ER Tab) 1 Tablets By Mouth Every day Unchanged phentermine (phentermine 37.5 mg Tab) 1 Tablets By Mouth Every day Unchanged pregabalin (pregabalin 300 mg Cap) 1 Capsules By Mouth 2 times a day Unchanged quetiapine (quetiapine 100 mg Tab) 1 Tablets By Mouth Every day Unchanged sertraline (sertraline 50 mg Tab) 1.5 Tablets By Mouth Every day Unchanged tizanidine (tiZANidine 4 mg Tab) See instructions 1 tab(s) Oral every 6 hours as needed Unchanged tramadol (traMADol 100 mg/ 24 hours oral capsule, extended release) 1 Capsules By Mouth Every day Back pain with history of spinal surgery Pain management Back pain Paraplegia 30 day supply Unchanged tramadol (traMADOL 50 mg Tab) 1 Tablets By Mouth Every 12 hours as needed for for pain Back pain with history of spinal surgery Back pain 30 day supply Allergies Cymbalta (Suicide) hydrOXYzine (AOF, Eruption) propofol (Anaphylaxis) sodium hypochlorite topical (Unknown, Urticaria) Problems Ongoing - Any problem that you are currently receiving treatment for. Acute gastroenteritis Anxiety and depression Apnea Back pain Back pain with history of spinal surgery Bladder spasms BMI 32.0-32.9,adult Chronic hepatitis C Comminuted fracture of patella Constipation Diarrhea Encounter for weight management Gasping for breath H/O chest tube placement Hepatitis C Left knee injury Left otitis media Pain management Paraplegia Rib pain on left side Right-sided chest wall pain Seizure disorder Skin infection Sleep apnea Smoker Snoring Spinal cord injury at T7-T12 level Stomach cramps Witnessed episode of apnea Patient Survey You may receive a survey via text or e-mail asking about your office visit. Please share your experience with us by completing your survey. We appreciate your feedback (more content not included)... Normal [facility] Family Medicine Office/Clini c Noteon 02-27-2024 Family Medicine Office/Clinic Note Family Medicine Office/Clinic Note HPI Staff Kayleen is a 28 year old female presenting with Weight management Phentermine 10/06/23 Sleeping well:Yes, 6-8 hours Chest pain:No Tremors:No Headaches:No Heart fluttering:No Blurred Vision:No Starting Weight: 224 lbs. Weight last visit: 200.2 lbs. Weight this visit: 200.2 lbs. Going to [facility] to get weighed This week or next week) will call with results No more headaches... Last one was a couple weeks ago History of Present Illness pt presents today for weight management Review of Systems PHQ Score Initial Depression Screen Score: 0 SCORE Physical Exam Vitals & Measurements T: 36.5 ?C(Oral) HR: 108(Peripheral) RR: 18 BP: 136/86 SpO2: 97% HT: 69 in HT: 175.0 cm WT: 91.4 kg WT: 201.08 lb BMI: 29.84 General: alert, no acute distress ENMT: oral mucosa moist, no pharyngeal erythema or exudate Cardiovascular: regular rate and rhythm, normal peripheral perfusion Respiratory: Lungs CTA, respirations non labored Extremities: no deformity, no trauma Neurological: oriented x 4, LOC appropriate for age, CN II-XII intact, motor strength equal & normal bilaterally, speech normal leg brace on left leg for knee fracture Assessment/Plan 1. Encounter for weight management (Z76.89: Persons encountering health services in other specified circumstances) pt is scheduled to see neuro and has EEG at hospital tomorrow. is hoping they have a scale, if not they will go to [facility] next week for weight. RTC 4 weeks 2. Vapes nicotine containing substance (Z72.0: Tobacco use) consider not vaping 3. Former smoker (Z87.891: Personal history of nicotine dependence) continue not smoking 4. BMI 29.0-29.9,adult (Z68.29: Body mass index [BMI] 29.0-29.9, adult) BMI education given Orders: phentermine, 37.5 mg = 1 tab(s), Oral, Daily, # 30 tab(s), Refills(s) 0, Pharmacy: [id number], 175, cm, 01/30/24 11:24:00 EDT, Height/Length Dosing, 91, kg, 01/30/24 11:24:00 EDT, Weight Dosing phentermine, 37.5 mg = 1 tab(s), Oral, Daily, # 30 tab(s), Refills(s) 0, Pharmacy: [id number], 175, cm, 02/27/24 10:26:00 EDT, Height/Length Dosing, 91.4, kg, 02/27/24 10:26:00 EDT, Weight Dosing Follow-up No qualifying data available Problem List/Past Medical History Ongoing Acute gastroenteritis Anxiety and depression Apnea Back pain Back pain with history of spinal surgery Bladder spasms BMI 32.0-32.9,adult Chronic hepatitis C Comminuted fracture of patella Constipation Diarrhea Encounter for weight management Gasping for breath H/O chest tube placement Hepatitis C Left knee injury Left otitis media Pain management Paraplegia Rib pain on left [...] tab(s), Oral, BID cloNIDine 0.3 mg Tab, See Instructions etodolac 400 mg Tab, 400 mg= 1 tab(s), Oral, BID, PRN ibuprofen 800 mg Tab, 800 mg= 1 tab(s), Oral, q8hr, 1 refills ibuprofen 800 mg Tab, 800 mg= 1 tab(s), Oral, TID, PRN, 1 refills lamotrigine 100 mg Tab, See Instructions ondansetron 4 mg Dis Tab, 4 mg= [...] 50 mg= 1 tab(s), Oral, q12hr, PRN Vitamin C 500 mg Tab, 500 mg= 1 tab(s), Oral, Daily, 1 refills Vitamin D 50,000 intl units (1.25 mg) oral capsule, 57994 International_Unit= 1 cap(s), Oral, qWeek, 3 refills Allergies Cymbalta (Suicide) hydrOXYzine (AOF, Eruption) propofol (Anaphylaxis) sodium hypochlorite topical (Unknown, Urticaria) Social History Alcohol - Denies Alcohol Use, 02/03/2020 Substance Abuse - Denies Substance Abuse, 02/03/2020 Tobacco Former smoker, quit more than 30 days ago Tobacco Use:. Current vaping or e-cigarette use Smokeless Tobacco Use:. Vaping, 10 year(s). Ready to change: No. Household tobacco concerns: No. Yes, 02/27/2024 Family History Ovarian cancer: Grandparent. Immunizations Vaccine Date Status Comments influenza virus vaccine, inactivated - Not Given Patient Refuses influenza virus vaccine, inactivated 07/17/2018 Recorded influenza virus vaccine, inactivated 06/11/2018 Recorded Normal [facility] Comment on above: Result Comment: Elec tronically Signed By: Earline Koroma.jean\Date and Time Signed: 02/27/24 11:04 EDT HCG ( test) Ql (U)o n 02-21-2024 HCG.beta subunit [Moles/Vol] Negative [facility] Interpretation and review of laboratory results Normal [facility] POCT ALERE DRUG SCREENon Amphetamine (AMP), poct Positive [facility] Barbiturates (BAR), poct Negative [facility] Buprenorphine Glucuronide (BUPG),poct Negative [facility] COCAINE (IMER), POCT Negative [facility] Ecstasy (MDMA), poct Negative [facility] Interpretation and review of laboratory results Normal [facility] Marijuana (THC), poct Positive [facility] Methadone (MTD), poct Negative [facility] Methamphetamine (mAMP/MET), poct Negative [facility] Nortripyline (TCA), poct Negative [facility] Opiate (OPI), poct Negative [facility] OXAZEPAM (BZO),POCT Negative [facility] Oxycodone, POC Negative [facility] Phencyclidine (PCP), poct Negative [facility] Propoxyphene (PPX), poct Negative [facility] Family Medicine Office/Clini c Noteon 02-12-2024 Family Medicine Office/Clinic Note Family Medicine Office/Clinic Note [facility] Staff Kayleen is a 28 year old female presenting with discussing MRI and med change MRI done 02/07/24 Getting off of Tramadol and starting Cuboxin.... Tramadol is not working for her. History of Present Illness pt presents today to discuss referral to ortho Review of Systems PHQ Score Initial Depression Screen Score: 0 SCORE Physical Exam Vitals & Measurements T: 36.8 ?C(Temporal Artery) HR: 110(Peripheral) RR: 18 BP: 136/88 SpO2: 96% HT: 69 in HT: 175.0 cm WT: 91 kg WT: 200.2 lb BMI: 29.71 General: alert, no acute distress ENMT: oral mucosa moist, no pharyngeal erythema or exudate Cardiovascular: regular rate and rhythm, normal peripheral perfusion Respiratory: Lungs CTA, respirations non labored Extremities: no deformity, no trauma Neurological: oriented x 4, LOC appropriate for age, CN II-XII intact, motor strength equal & normal bilaterally, speech normal left knee limited mobility due to pain Assessment/Plan 1. Comminuted fracture of patella (S82.043A: Displaced comminuted fracture of unspecified patella, initial encounter for closed fracture) reviewed MRI results. pt will need referral to ortho. is requesting to stay local. will send to [facility]. pt states pain management has suggested she switch from tramadol to suboxone for her pain management. she will call Elly Pisano's office for appointment. pt gets tearful when discussing referral o ortho. she had a terrible experience adis she had her last surgery on her back. RTC as needed 2. Left otitis media (H66.92: Otitis media, unspecified, left ear) ;eft ear pain. TM is red and fill of fluid. z pack sent 3. Former smoker (Z87.891: Personal history of nicotine dependence) continue not smoking Ordered: azithromycin, = 1 packet(s), Oral, As Directed, as directed on package labeling, X 5 day(s), # 6 tab(s), Refills(s) 0, Pharmacy: [id number], 175, cm, 02/12/24 9:04:00 EDT, Height/Length Dosing, 91, kg, 02/12/24 9:08:00 EDT, Weight Dosing 4. BMI 29.0-29.9,adult (Z68.29: Body mass index [BMI] 29.0-29.9, adult) BMI education Ordered: azithromycin, = 1 packet(s), Oral, As Directed, as directed on package labeling, X 5 day(s), # 6 tab(s), Refills(s) 0, Pharmacy: [id number], 175, cm, 02/12/24 9:04:00 EDT, Height/Length Dosing, 91, kg, 02/12/24 9:08:00 EDT, Weight Dosing Follow-up No qualifying data available Patient Education Patellar Fracture, Adult Patellar Fracture, Adult BMI for Adults Stroke Prevention Problem List/Past Medical History Ongoing Acute gastroenteritis Anxiety and depression Apnea Back pain Back pain with history of spinal surgery Bladder spasms BMI 32.0-32.9,adult Chronic hepatitis C Comminuted fracture of patella Constipation Diarrhea Encounter for weight management Gasping for breath H/O chest tube placement Hepatitis C Left knee injury Left otitis media Pain management Paraplegia Rib pain on left side Right-sided chest wall pain Seizure disorder Skin infection Sleep apnea Smoker Snoring Spinal cord injury at T7-T12 level Stomach cramps Witnessed episode of apnea Historical No qualifying data Procedure/Surgical History Spinal fusion (2022), section, Tonsillectomy. Medications azithromycin 250 mg Tab, 1 packet(s), Oral, As Directed baclofen 20 mg Tab, 20 mg= 1 tab(s), Oral, TID, 3 refills busPIRone 30 mg oral tablet, 30 mg= 1 tab(s), Oral, BID cloNIDine 0.3 mg Tab, 0.3 mg= 1 tab(s), Oral, BID etodolac 400 mg Tab, 400 mg= 1 tab(s), Oral, BID, PRN ibuprofen 800 mg Tab, 800 mg= 1 tab(s), Oral, q8hr, 1 refills ibuprofen 800 mg Tab, 800 mg= 1 tab(s), Oral, TID, PRN, 1 refills lamotrigine 100 mg Tab, See Instructions ondansetron 4 mg Dis Tab, 4 mg= [...] 50 mg= 1 tab(s), Oral, q12hr, PRN Vitamin C 500 mg Tab, 500 mg= 1 tab(s), Oral, Daily, 1 refills Vitamin D 50,000 intl units (1.25 mg) oral capsule, [id number] International_Unit= 1 cap(s), Oral, qWeek, 3 refills Allergies Cymbalta (Suicide) hydrOXYzine (AOF, Eruption) propofol (Anaphylaxis) sodium hypochlorite topical (Unknown, Urticaria) Social History Alcohol - Denies Alcohol Use, 02/03/2020 Substance Abuse - Denies Substance Abuse, 02/03/2020 Tobacco Former smoker, quit more than 30 days ago Tobacco Use:. Current vaping or e-cigarette use Smokeless Tobacco Use:. Vaping, 10 year(s). Ready to change: No. Household tobacco concerns: No. Yes, 02/12/2024 Family History (more content not included)... Normal [facility] Comment on above: Result Comment: Elec tronically Signed By: Earline Koroma.br\Date and Time Signed: 02/12/24 11:39 EDT CNOVon 02-08-2024 JEISON Office Visit ([facility] ) KAYLEEN KOVACS ([id number]) 1995 F Date Time Provider Department 02/08/24 10:30 AM [facility] During your visit today, we recorded the following information about you: Pulse Blood pressure Last Period 119/minute 121/69 01/18/24 Amber Bledsoe MD 02/08/2024 11:23 AM Signed [facility] Pain Management Department Consultation Date: date 02/08/2024 - 10:33 AM Referring physician: Dr. Naty Benedict, physical medicine [id number] [id number] Kayelen Kovacs is seen in consultation requested by Dr. Naty Benedict, physical medicine, for an opinion regarding Neuropathic pain and .Paraplegia. My final recommendations will be communicated back to the requesting physician by way of shared medical record or via US mail. Chief Complaint: Patient presents with: Back Pain: Mid to low back. More pain on left then right SUBJECTIVE History of Present Illness Kayleen Kovacs is a 28 year old and presents with lower back pain and mid back pain. Past medical history is significant for: No past medical history on file. Intensity of pain: 6 on a scale of 0-10. Duration of pain: 2 Years ago, falling out of the car during a seizure. The pain is located Back and radiates to the foot/toe bilaterally. Pain Description: Continuous Aching, Sharp, Pulsating, Spasm, Stabbing Timing: constant Aggravating Factors: moving Alleviating Factors: Relaxation, Reposition, Heat, Cold Interference with: physical activity, walking, sleeping, and social activities. In the past 12 months, She completed 10 physical therapy sessions. Physical therapy is helpful. The patient has seen other pain providers. Possible Red Flag Kayleen Kovacs has no red flag symptoms. Past pain treatment has included PT and Surgery Past pain medications have included Baclofen 20 mg, effective Lidocaine 4% patch, effective Biofreeze 5% gel, effective Icy Hot 10-15% cream, effective Oxycodone IR 10 mg, effective She had relief from the following interventions: PT and Surgery She had relief from the following medications: Tylenol 500 mg, effective Etodolac 400 mg, effective Ibuprofen 800 mg, effective Pregabalin 300 mg, Ibuprofen 800 mg, effective Tramadol 50 mg, Ibuprofen 800 mg, effective Review of Systems HENT: Negative. Eyes: Negative. Respiratory: Negative. Cardiovascular: Positive for leg swelling. Gastrointestinal: Positive for constipation, heartburn and nausea. Genitourinary: Negative. Musculoskeletal: Positive for back pain. Skin: Negative. Neurological: Positive for weakness. Endo/Heme/Allergies: Negative. Psychiatric/Behavioral : Positive for depression. The patient is nervous/anxious and has insomnia. OBJECTIVE Imaging Objective Date February 08, 2024 09/22/23 MRI Thoracic and Lumbar spine IMPRESSION: 1. REDEMONSTRATION OF POSTERIOR FIXATION HARDWARE [...] and assume there are 5 lumbar-type vertebrae. RESULT: THORACIC: Counting reference: Craniocervical and lumbosacral [...] surgical change: Redemonstrated is fixation hardware connecting [id number], with laminectomy around L1. There is considerable metallic artifact from this region, and detail assessment is not possible. Bone marrow signal/fracture: No evidence of pathologic marrow infiltration. No evidence of prior fracture. Conus: The conus is within normal limits of signal intensity and morphology. Paraspinal soft tissues: Paraspinal soft tissues are within normal limits. (more content not included)... Normal [facility] KIDNEY/BLADDERon 02-08-20 US KIDNEY/BLADDER * * *Final Report* * * DATE OF EXAM: Feb 08 2024 12:06PM U 1055 - US KIDNEY/BLADDER / PROCEDURE REASON: multiple diagnoses * * * * Physician Interpretation * * * * EXAMINATION: RENAL ULTRASOUND CLINICAL HISTORY: Recurrent bladder TECHNIQUE: Sonography of the kidneys and urinary bladder was performed. Images were obtained and stored in a permanent archive. MQ: UR_1 COMPARISON: None RESULT: Right Kidney: -Renal length: 10.9 cm -Parenchyma: Normal parenchymal echogenicity. Normal parenchymal thickness. -Collecting system: No hydronephrosis. -Calculus: No echogenic, shadowing calculus. -Lesion: None. Left Kidney: -Renal length: 10.8 cm -Parenchyma: Normal parenchymal echogenicity. Normal parenchymal thickness. -Collecting system: No hydronephrosis. -Calculus: No echogenic, shadowing calculus. -Lesion: None. Bladder: Normal sonographic appearance. Prevoid volume measures 336 mL. IMPRESSION: Normal sonographic appearance of the kidneys and urinary bladder. Protohistorian: BAY Transcribe Date/Time: Feb 10 2024 4:32A Dictated by : SARAVANAN ORTIZ MD This examination was interpreted and the report reviewed and electronically signed by: SARAVANAN ORTIZ MD on Feb 11 2024 7:10AM EST [id number] Normal [facility] 02-06-2024 [facility] Telephone ([facility]) KAYLEEN KOVACS ([id number]) 1995 F Date Time Provider Department 02/06/24 [facility] During your visit today, we recorded the following information about you: Ilan Marc RN 02/06/2024 2:16 PM Signed Attempted to call patient, no answer, left message below on patient's voice mail, also sent this message to patient's my chart. This is [facility] office calling with an appointment reminder. You are scheduled with Dr. Bledsoe on January at 10:30 am, with an arrival time of 10:15 am. At [facility] building room 525. Please be advised that Dr. Bledsoe is primarily an interventional pain management provider and does not take over Opioid/Narcotic pain medication regimen. If you have been evaluated by [facility] Pain Management Provider currently or within the last 3 years , you will need to contact their offices to address switching care if recommended. Please bring any outside medical records to your appointment if they are not updated into the [facility]. Please be advised that the appointment with pain management will be for consultation only, any further recommendations will be provided to you at the end of the visit. If you have any question regarding your appointment , please contact the office appointment desk directly to discuss. ( [facility]: [phone] ) Allergies As of Date: 02/06/2024 Noted Allergy Reaction CYMBALTA (DULOXETINE) 11/17/2023 14 - Other: See Comments Comments: Suicidal ideation Date Reviewed: 01/09/2024 Reviewed by: Mackenzie Sigala RN - Fully Assessed Reason for Visit: Appointment [186] Prescriptions as of 02/06/2024 - cloNIDine HCl (CATAPRES) 0.3 mg tablet Take 0.3 mg by mouth. - ibuprofen (MOTRIN) 800 mg tablet Take 800 mg by mouth three times a day as needed. - aspirin/acetaminophen/ caffeine (EXCEDRIN EXTRA STRENGTH ORAL) Take by mouth two times a day. - phentermine HCl (ADIPEX-P ORAL) Take by mouth once daily. - oxybutynin ER (DITROPAN XL) 10 mg 24 hr tablet Take 10 mg by mouth once daily. - pregabalin (LYRICA) 300 mg capsule Take 300 mg by mouth two times a day. - QUEtiapine (SEROQUEL) 100 mg tablet Take 100 mg by mouth daily at bedtime. - lamoTRIgine (LAMICTAL) 100 mg tablet Take 125 mg by mouth two times a day. - busPIRone (BUSPAR) 15 mg tablet Take 30 mg by mouth two times a day. - sertraline (ZOLOFT) 25 mg tablet Take 25 mg by mouth once daily. - traMADol 100 mg TM24 Take 100 mg by mouth once daily. - traMADol 25 mg tablet Take 50 mg by mouth two times a day. - ondansetron (ZOFRAN) 4 mg tablet Take 4 mg by mouth every 8 hours as needed for nausea/vomiting. - tiZANidine (ZANAFLEX) 2 mg tablet Take 0.5 tablets by mouth every 6 hours as needed. - baclofen 15 mg tablet Take 1 tablet by mouth three times a day. Problem List As Of Date: 02/06/2024 (None) Encounter Status:Closed by ILAN MARC on 02/06/24 Normal [facility] Ambulatory Visit Summaryon 0 01-30-2024 Ambulatory Visit Summary Ambulatory Visit Summary KAYLEEN KOVACS :1995 Visit Date:01/30/2024 Ambulatory Visit Instructions Your Diagnosis BMI 29.0-29.9,adult Former smoker Your Care Team Attending Physician - Earline Koroma Primary Care Physician - Earline Koroma This Is Your Medications List ascorbic acid (Vitamin C 500 mg Tab) baclofen (baclofen 20 mg Tab) busPIRone (busPIRone 30 mg oral tablet) clonidine (cloNIDine 0.3 mg Tab) ergocalciferol (Vitamin D 50,000 intl units (1.25 mg) oral capsule) ibuprofen (ibuprofen 800 mg Tab) ibuprofen (ibuprofen 800 mg Tab) lamotrigine (lamotrigine 100 mg Tab) ondansetron (ondansetron 4 mg Dis Tab) oxybutynin (oxybutynin 10 mg ER Tab) phentermine (phentermine 37.5 mg Tab) pregabalin (pregabalin 300 mg Cap) quetiapine (quetiapine 100 mg Tab) sertraline (sertraline 50 mg Tab) tizanidine (tiZANidine 4 mg Tab) tramadol (traMADOL 50 mg Tab) tramadol (traMADol 100 mg/24 hours oral capsule, extended release) Procedures Performed Spinal fusion (2022), section, Tonsillectomy. Discharge Vitals Temperature (Temporal Artery) 37.0 ?C Heart Rate (Peripheral) 88 Respiratory Rate 20 Blood Pressure 122/84 Height 175.0 cm Height 69 in Weight 91.2 kg Weight 200.64 lb BMI 29.78 What to do next Scheduled Follow-Up Appointments Monday 10:00 AM EDT With: Earline Koroma Where: [facility] [place] [id number]- Medications What How Much When Why Instructions Unchanged ascorbic acid (Vitamin C 500 mg Tab) 1 Tablets By Mouth Every day Back pain with history of spinal surgery Pain management Back pain Paraplegia Unchanged baclofen (baclofen 20 mg Tab) 1 Tablets By Mouth 3 times a day Back pain with history of spinal surgery Pain management Back pain Paraplegia Unchanged busPIRone (busPIRone 30 mg oral tablet) 1 Tablets By Mouth 2 times a day Unchanged clonidine (cloNIDine 0.3 mg Tab) 1 Tablets By Mouth 2 times a day Back pain with history of spinal surgery Rib pain on left side Paraplegia Smoker Unchanged ergocalciferol (Vitamin D 50,000 intl units (1.25 mg) oral capsule) 1 Capsules By Mouth Every week Back pain with history of spinal surgery Pain management Back pain Paraplegia Unchanged ibuprofen (ibuprofen 800 mg Tab) 1 Tablets By Mouth Every 8 hours 21 EA, 0 Refill(s), TAKE 1 TABLET BY MOUTH EVERY 8 HOURS NEEDED FOR PAIN Unchanged ibuprofen (ibuprofen 800 mg Tab) 1 Tablets By Mouth 3 times a day as needed for Pain 8-10 Unchanged lamotrigine (lamotrigine 100 mg Tab) See instructions 125mg bid increased by neurologist Unchanged ondansetron (ondansetron 4 mg Dis Tab) 1 Tablets By Mouth Every 6 hours as needed for Nausea/Vomiting Unchanged oxybutynin (oxybutynin 10 mg ER Tab) 1 Tablets By Mouth Every day Unchanged phentermine (phentermine 37.5 mg Tab) 1 Tablets By Mouth Every day Unchanged pregabalin (pregabalin 300 mg Cap) 1 Capsules By Mouth 2 times a day Unchanged quetiapine (quetiapine 100 mg Tab) 1 Tablets By Mouth Every day Unchanged sertraline (sertraline 50 mg Tab) 1.5 Tablets By Mouth Every day Unchanged tizanidine (tiZANidine 4 mg Tab) See instructions 1 tab(s) Oral every 6 hours as needed Unchanged tramadol (traMADol 100 mg/ 24 hours oral capsule, extended release) 1 Capsules By Mouth Every day Back pain with history of spinal surgery Pain management Back pain Paraplegia 30 day supply Unchanged tramadol (traMADOL 50 mg Tab) 1 Tablets By Mouth Every 12 hours as needed for for pain Back pain with history of spinal surgery Back pain 30 day supply Allergies Cymbalta (Suicide) hydrOXYzine (AOF, Eruption) propofol (Anaphylaxis) sodium hypochlorite topical (Unknown, Urticaria) Problems Ongoing - Any problem that you are currently receiving treatment for. Acute gastroenteritis Anxiety and depression Apnea Back pain Back pain with history of spinal surgery Bladder spasms BMI 32.0-32.9,adult Chronic hepatitis C Constipation Diarrhea Encounter for weight management Gasping for breath H/O chest tube placement Hepatitis C Left knee injury Pain management Paraplegia Rib pain on left side Right-sided chest wall pain Seizure disorder Skin infection Sleep apnea Smoker Snoring Spinal cord injury at T7-T12 level Stomach cramps Witnessed episode of apnea Patient Survey You may receive a survey via text or e-mail asking about your office visit. Please share your experience with us by completing your survey. We appreciate your feedback and thank you for choosing us for your care. Normal [facility] Medicine Office/Clini c Noteon 01-30-2024 Family Medicine Office/Clinic Note Family Medicine Office/Clinic Note HPI Staff Kayleen is a 28 year old female presenting with tooth pain- better she has dentist appt. February 14... 11/09 is her pain for tooth today A couple weeks ago [facility] said to go over labs with her,and Adipex refill History of Present Illness pt presents today for weight management. and tooth pain Review of Systems PHQ Score Initial Depression Screen Score: 0 SCORE Physical Exam Vitals & Measurements T: 37.0 ?C(Temporal Artery) HR: 88(Peripheral) RR: 20 BP: 122/84 SpO2: 98% HT: 69 in HT: 175.0 cm WT: 91.2 kg WT: 200.64 lb BMI: 29.78 General: alert, no acute distress ENMT: oral [...] services in other specified circumstances) pt presents for refill on adipex. is down 17 pounds since October. denies side effects. pt also having tooth pain. is scheduled with dentis next week. RTC 4 weeks 2. BMI 29.0-29.9,adult (Z68.29: Body mass index [BMI] 29.0-29.9, adult) BMI education given 3. Former smoker (Z87.891: Personal history of nicotine dependence) continue not smoking Orders: etodolac, 400 mg = 1 tab(s), Oral, BID, PRN for pain, # 14 tab(s), Refills(s) 0, Pharmacy: [id number], 175, cm, 01/30/24 11:24:00 EDT, Height/Length Dosing, 91, kg, 01/30/24 11:24:00 EDT, Weight Dosing phentermine, 37.5 mg = 1 tab(s), Oral, Daily, # 30 tab(s), Refills(s) 0, Pharmacy: [facility], 175, cm, 01/30/24 11:24:00 EDT, Height/Length Dosing, 91, kg, 01/30/24 11:24:00 EDT, Weight Dosing phentermine, 37.5 mg = 1 tab(s), Oral, Daily, # 30 tab(s), Refills(s) 0, Pharmacy: [facility], 175, cm, 01/02/24 14:51:00 EDT, Height/Length Dosing, 99, kg, 12/01/23 10:10:00 EDT, Weight Dosing Follow-up No qualifying data available Problem List/Past Medical History Ongoing Acute gastroenteritis Anxiety and depression Apnea Back pain Back pain with history of spinal surgery Bladder spasms BMI 32.0-32.9,adult Chronic hepatitis C Constipation Diarrhea Encounter for weight management Gasping for breath H/O chest tube placement Hepatitis C Left knee injury Pain management Paraplegia Rib pain on left [...] Tab, 0.3 mg= 1 tab(s), Oral, BID etodolac 400 mg Tab, 400 mg= 1 tab(s), Oral, BID, PRN ibuprofen 800 mg Tab, 800 mg= 1 tab(s), Oral, q8hr, 1 refills ibuprofen 800 mg Tab, 800 mg= 1 tab(s), Oral, TID, PRN, 1 refills lamotrigine 100 mg Tab, See Instructions ondansetron 4 mg Dis Tab, 4 mg= [...] 50 mg= 1 tab(s), Oral, q12hr, PRN Vitamin C 500 mg Tab, 500 mg= 1 tab(s), Oral, Daily, 1 refills Vitamin D 50,000 intl units (1.25 mg) oral capsule, 24215 International_Unit= 1 cap(s), Oral, qWeek, 3 refills Allergies Cymbalta (Suicide) hydrOXYzine (AOF, Eruption) propofol (Anaphylaxis) sodium hypochlorite topical (Unknown, Urticaria) Social History Alcohol - Denies Alcohol Use, 02/03/2020 Substance Abuse - Denies Substance Abuse, 02/03/2020 Tobacco Former smoker, quit more than 30 days ago Tobacco Use:. Current vaping or e-cigarette use Smokeless Tobacco Use:. Vaping, 10 year(s). Ready to change: No. Household tobacco concerns: No. Yes, 01/30/2024 Family History Ovarian cancer: Grandparent. Immunizations Vaccine Date Status Comments influenza virus vaccine, inactivated - Not Given Patient Refuses influenza virus vaccine, inactivated 07/17/2018 Recorded influenza virus vaccine, inactivated 06/11/2018 Recorded [facility] Comment on above: Result Comment: Elec tronically Signed By: Earline Koroma\.jean\Date and Time Signed: 01/30/24 12:20 EDT [place] 01-25-2024 [facility] Consults (NE50MN) KAYLEEN KOVACS ([id number]) 1995 F Date Time Provider Department 01/25/24 ALETHA, STEVE NE50MN During your visit today, we recorded the following information about you: Shasta Maddox APRN.PLATFORM ARCHITECT 01/25/2024 3:16 PM Signed [facility] Review of Records Patient: Kayleen Kovacs Address: [address] [place] [address] Impression: Review of records for Kayleen Kovacs, a 28 year old female, being referred by Dr. Naty Mata [CC, Rehab Medicine/Spine ] to Any Epileptologist for further evaluation and treatment. Patient has previously diagnosed epilepsy. EEG from 2020 reported as normal. MRI from 2020 reported no acute. Patient has trialed 2 AEDs. 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 Pompa for review and recommendations. ------- MD Recommendations (as discussed with Dr. Pompa): - Please proceed with the above plan. Allergies As of Date: 01/25/2024 Noted Allergy Reaction CYMBALTA (DULOXETINE) 11/17/2023 14 - Other: See Comments Comments: Suicidal ideation Date Reviewed: 01/09/2024 Reviewed by: Mackenzie Sigala RN - Fully Assessed Primary Visit Diagnosis:Partial symptomatic epilepsy with complex partial seizures, not intractable, without status epilepticus (HCC) [G40.209] Order(s):EPIL EEG LONG [[id number]] Order #: [id number]: 1 Prescriptions as of 01/25/2024 - cloNIDine HCl (CATAPRES) 0.3 mg tablet Take 0.3 mg by mouth. - ibuprofen (MOTRIN) 800 mg tablet Take 800 mg by mouth three times a day as needed. - aspirin/acetaminophen/ caffeine (EXCEDRIN EXTRA STRENGTH ORAL) Take by mouth two times a day. - phentermine HCl (ADIPEX-P ORAL) Take by mouth once daily. - oxybutynin ER (DITROPAN XL) 10 mg 24 hr tablet Take 10 mg by mouth once daily. - pregabalin (LYRICA) 300 mg capsule Take 300 mg by mouth two times a day. - QUEtiapine (SEROQUEL) 100 mg tablet Take 100 mg by mouth daily at bedtime. - lamoTRIgine (LAMICTAL) 100 mg tablet Take 125 mg by mouth two times a day. - busPIRone (BUSPAR) 15 mg tablet Take 30 mg by mouth two times a day. - sertraline (ZOLOFT) 25 mg tablet Take 25 mg by mouth once daily. - traMADol 100 mg TM24 Take 100 mg by mouth once daily. - traMADol 25 mg tablet Take 50 mg by mouth two times a day. - ondansetron (ZOFRAN) 4 mg tablet Take 4 mg by mouth every 8 hours as needed for nausea/vomiting. - tiZANidine (ZANAFLEX) 2 mg tablet Take 0.5 tablets by mouth every 6 hours as needed. - baclofen 15 mg tablet Take 1 tablet by mouth three times a day. Problem List As Of Date: 01/25/2024 (None) Encounter Status:Closed by SHASTA MADDOX on 01/25/24 [facility] 01-25-2024 [facility] Telephone ([facility]) DINORAHKAYLEEN PARIKH ([id number]) 1995 F Date Time Provider Department 01/25/24 STEVE POMPA During your visit today, we recorded the following information about you: Lorin Lino 01/25/2024 1:45 PM Signed [facility] Initial Intake Interview January 25, 2024 1:38 PM Caller: Brian Relationship to pt: Self = Patient name: Kayleen Kovacs Age: [age] year old Address: [facility] [address] [place] [address] (home) Insurance: Payor: [facility] MEDICAID / Plan: [employer]ICA[employer] / Product Type: Medicaid / Referred by: Physician: Referring to: Any Reason for Evaluation: further evaluation and treatment Previously evaluated at: [facility] = Age AND date of onset of seizures/spells: 21 years Frequency: 1 last week and then 2021 was the last one before that Seizure Type A: starts talking weird, Falls, start convulsion, wakes up and is confused, starts crying Duration: 3-4 minutes Recent injuries (within last 6 months)? No Recent surgeries (within the last 6 weeks)? No Seizure medications Current medications: - Lamictal - Past medications: -Keppra Developmental disabilities? No Previous neurosurgery? Yes Type AND Date: Back surgery/Spinal cord injury Implants (VNS/NeuroPace/shunt/o rthodontic hardware/pacemaker)? yes Type AND Date: 2 rods and 8 screws Would patient require anaesthesia or sedation? No Additional pertinent medical information: Spinal cord injury = Test Yes or No Date Facility EEG Yes 2022 [facility] Video EEG No MRI brain No CT brain No fMRI brain No PET No Ictal SPECT No INGRID No Naila No Neuropsych testing No Visual field No Invasive video EEG (brain mapping) No If invasive video-EEG monitoring was performed, request: -- brain maps including any power point presentations -- disks of the study If resection was performed, request: -- operative notes -- surgical pathology reports If patient has had any presurgical or surgical workup, has imaging been requested? No Signed: Lorin Louis Coord Allergies As of Date: 01/25/2024 Noted Allergy Reaction CYMBALTA (DULOXETINE) 11/17/2023 14 - Other: See Comments Comments: Suicidal ideation Date Reviewed: 01/09/2024 Reviewed by: Mackenzie Sigala RN - Fully Assessed Reason for Visit: Future Appointment [256] Cmt: NEW PT, [place], ANY Prescriptions as of 02/06/2024 - cloNIDine HCl (CATAPRES) 0.3 mg tablet Take 0.3 mg by mouth. - ibuprofen (MOTRIN) 800 mg tablet Take 800 mg by mouth three times a day as needed. - aspirin/acetaminophen/ caffeine (EXCEDRIN EXTRA STRENGTH ORAL) Take by mouth two times a day. - phentermine HCl (ADIPEX-P ORAL) Take by mouth once daily. - oxybutynin ER (DITROPAN XL) 10 mg 24 hr tablet Take 10 mg by mouth once daily. - pregabalin (LYRICA) 300 mg capsule Take 300 mg by mouth two times a day. - QUEtiapine (SEROQUEL) 100 mg tablet Take 100 mg by mouth daily at bedtime. - lamoTRIgine (LAMICTAL) 100 mg tablet Take 125 mg by mouth two times a day. - busPIRone (BUSPAR) 15 mg tablet Take 30 mg by mouth two times a day. - sertraline (ZOLOFT) 25 mg tablet Take 25 mg by mouth once daily. - traMADol 100 mg TM24 Take 100 mg by mouth once daily. - traMADol 25 mg tablet Take 50 mg by mouth two times a day. - ondansetron (ZOFRAN) 4 mg tablet Take 4 mg by mouth every 8 hours as needed for nausea/vomiting. - tiZANidine (ZANAFLEX) 2 mg tablet Take 0.5 tablets by mouth every 6 hours as needed. - baclofen 15 mg tablet Take 1 tablet by mouth three times a day. Problem List As Of Date: 01/25/2024 (None) Encounter Status:Closed [facility]ORIN LINO [facility]06[facility] Telephone ([facility]) KAYLEEN KOVACS ([id number]) 1995 F Date Time Provider Department 01/23/24 NATY BENEDICT [facility] During your visit today, we recorded the following information about you: Naty Benedict MD 01/23/2024 12:29 PM Signed PMR Order placed for Neurology consult to assess and manage seizures Jeferson Benedict MD Allergies As of Date: 01/23/2024 Noted Allergy Reaction CYMBALTA (DULOXETINE) 11/17/2023 14 - Other: See Comments Comments: Suicidal ideation Date Reviewed: 01/09/2024 Reviewed by: Mackenzie Sigala RN - Fully Assessed Primary Visit Diagnosis:Recurrent seizures (HCC) [G40.909] Order(s):CONSULT TO NEUROLOGY [9019] Order #: [id number]: 1 FUTURE Prescriptions as of 01/23/2024 - cloNIDine HCl (CATAPRES) 0.3 mg tablet Take 0.3 mg by mouth. - ibuprofen (MOTRIN) 800 mg tablet Take 800 mg by mouth three times a day as needed. - aspirin/acetaminophen/ caffeine (EXCEDRIN EXTRA STRENGTH ORAL) Take by mouth two times a day. - phentermine HCl (ADIPEX-P ORAL) Take by mouth once daily. - oxybutynin ER (DITROPAN XL) 10 mg 24 hr tablet Take 10 mg by mouth once daily. - pregabalin (LYRICA) 300 mg capsule Take 300 mg by mouth two times a day. - QUEtiapine (SEROQUEL) 100 mg tablet Take 100 mg by mouth daily at bedtime. - lamoTRIgine (LAMICTAL) 100 mg tablet Take 125 mg by mouth two times a day. - busPIRone (BUSPAR) 15 mg tablet Take 30 mg by mouth two times a day. - sertraline (ZOLOFT) 25 mg tablet Take 25 mg by mouth once daily. - traMADol 100 mg TM24 Take 100 mg by mouth once daily. - traMADol 25 mg tablet Take 50 mg by mouth two times a day. - ondansetron (ZOFRAN) 4 mg tablet Take 4 mg by mouth every 8 hours as needed for nausea/vomiting. - tiZANidine (ZANAFLEX) 2 mg tablet Take 0.5 tablets by mouth every 6 hours as needed. - baclofen 15 mg tablet Take 1 tablet by mouth three times a day. Problem List As Of Date: 01/23/2024 (None) Encounter Status:Closed by JEFERSON BENEDICT on 01/23/24 Normal [facility] 25(OH)D3 [facility] 25-hydroxyvitamin D3 [Mass/Vol] 41.9 ng/mL Normal 31.0-80.0 [facility] Comment on above: Order Comment: Bill gaffney Type: BLOOD SPECIMENOrdering Facility: [facility] Address: [address] [place] [address] Result Comment: Clas sification of 25 OH Vitamin D status: Deficiency/Insufficiency: < or = 30 ng/ml. Sufficiency/Optimal Levels: 31-80 ng/mL Toxicity: > 100 ng/mL. Test performed by chemiluminescent immunoassay. Performed By: #### 1 989-3 ####[facility] LABCLIA [id number] [place] [address] [place] CYSTATIN Con 01-15-2024 Cystatin C [Mass/Vol] 1.07 mg/L High 0.61-0.95 [facility] Comment on above: Order Comment: Bill gaffney Type: BLOOD SPECIMENOrdering Facility: [facility] Address: [address] [place] [address] Performed By: #### 2 4331-1 ####[facility] LABCLIA [id number] [address] LABCLIA [id number] [place] [address]#### CYSTC ####[facility] LABCLIA [id number] [place] [address] [place] CYSTATIN C EGFR 76 mL/min/1.73m??? Normal >=60 [facility] Comment on above: Order Comment: Bill gaffney Type: BLOOD SPECIMENOrdering Facility: [facility] Address: [address] [place] [address] Result Comment: Ana mated Glomerular Filtration Rate (eGFR) is calculated using the 2012 CKD-EPI cystatin C equation. This equation utilizes serum cystatin C, sex, and age as parameters. The cystatin C assay has traceable calibration to the [facility] reference material. Refer to KDIGO guidelines for clinical interpretation. In patients with unstable renal function, e.g. those with acute kidney injury, the eGFR may not accurately reflect actual GFR. Performed By: #### 2 4331-1 ####[facility] LABCLIA [id number] [place] [id number] [facility] LABCLIA [id number] [place] [address]#### CYSTC ####[facility] LABCLIA [id number] [address] HbA1c (Bld)on 01-15-2024 Average glucose Estimated from glycated hemoglobin (Bld) [Mass/Vol] 94 mg/dL Normal [facility] Comment on above: Order Comment: Speci men Type: BLOOD SPECIMENOrdering Facility: [facility] Address: [address] [place] [address] Result Comment: eAG: (Estimated average glucose) is a calculated value from HgbA1c and is patient account representative of the average blood glucose level in the last 2-3 month period. Performed By: #### 5 5454-3 ####[facility] LABCLIA [id number] [address] HbA1c (Bld) [Mass fraction] 4.9 % Normal 4.3-5.6 [facility] Comment on above: Order Comment: Bill gaffney Type: BLOOD SPECIMENOrdering Facility: [facility] Address: [address] [place] [address] Result Comment: Amer ican Diabetes Association guidelines indicate that patients with HgbA1c in the range 5.7-6.4% are at increased risk for development of diabetes, and intervention by lifestyle modification may be beneficial. HgbA1c greater or equal to 6.5% is considered diagnostic of diabetes. Performed By: #### 5 5454-3 ####[facility] LABCLIA [id number] [address] [place] Lipid 1996 panelon 4 Cholesterol [Mass/Vol] 156 mg/dL Normal <200 [facility] Comment on above: Order Comment: Speci men Type: BLOOD SPECIMENOrdering Facility: [facility] Address: [address] [place] [address] Result Comment: <200 mg/dL, Desirable 200-239 mg/dL, Borderline high >239 mg/dL, High Performed By: #### 2 4331-1 ####[facility] LABCLIA [id number] [address] LABCLIA [id number] [place] [address]#### CYSTC ####[facility] LABCLIA [id number] [address] STATES [facility] Cholesterol in HDL [Mass/Vol] 23 mg/dL Low >39 [facility] Comment on above: Order Comment: Speci men Type: BLOOD SPECIMENOrdering Facility: [facility] Address: [address] [place] [address] Result Comment: 40-5 9 mg/dL, Acceptable >59 mg/dL, High: Negative risk factor for coronary heart disease <40 mg/dL, Low: Positive risk factor for coronary heart disease Performed By: #### 2 4331-1 ####[facility] LABCLIA [id number] [address] LABCLIA [id number] [place] [address]#### CYSTC ####[facility] LABCLIA [id number] [place] [address] [place] Cholesterol in LDL [Mass/Vol] 94 mg/dL Normal <100 [facility] Comment on above: Order Comment: Speci men Type: BLOOD SPECIMENOrdering Facility: [facility] Address: [address] [place] [address] Result Comment: <100 mg/dL, Optimal 100-129 mg/dL, Near optimal/above optimal 130-159 mg/dL, Borderline high 160-189 mg/dL, High >189 mg/dL, Very high Secondary prevention optimal LDL Cholesterol levels are recommended to be < 70 mg/dL Performed By: #### 2 4331-1 ####[facility] LABCLIA [id number] [address] LABCLIA [id number] [place] [address]#### CYSTC ####[facility] LABCLIA [id number] [place] [address] [place] Cholesterol in LDL/Cholesterol in HDL [Mass ratio] 4.09 {ratio} High <2.54 [facility] Comment on above: Order Comment: Speci men Type: BLOOD SPECIMENOrdering Facility: [facility] Address: [address] [place] [address] Result Comment: Refe rence: 1. National Cholesterol Education Program ATP III Guideline At-A-Glance Quick Desk Reference: National Heart, Lung, and Blood [place]. National Institutes of Health. 2001: NIH Publication No. 01-3305. 2. An International Atherosclerosis Society position paper: global recommendations for the management of dyslipidemia: executive summary, Atherosclerosis. 2014: 232(2):410-413. Performed By: #### 2 4331-1 ####[facility] LABCLIA [id number] [address] LABCLIA [id number] [place] [id number]#### CYSTC ####[facility] LABCLIA [id number] [place] [address] [place] Cholesterol in VLDL [Mass/Vol] 39 mg/dL High <30 [facility] Comment on above: Order Comment: Speci men Type: BLOOD SPECIMENOrdering Facility: [facility] Address: [address] [place] [address] Performed By: #### 2 4331-1 ####[facility] LABCLIA [id number] [address] LABCLIA [id number] [place] [address]#### CYSTC ####[facility] LABCLIA [id number] [place] [address] [place] Cholesterol non HDL [Mass/Vol] 133 mg/dL High <130 [facility] Comment on above: Order Comment: Speci men Type: BLOOD SPECIMENOrdering Facility: [facility] Address: [address] [place] [address] Result Comment: <130 mg/dL, Optimal 130-159 mg/dL, Near optimal/above optimal 160-189 mg/dL, Borderline high 190-219 mg/dL, High >219 mg/dL, Very high Secondary prevention optimal non HDL Cholesterol levels are recommended to be <100 mg/dL Performed By: #### 2 4331-1 ####[facility] LABCLIA [id number] [address] LABCLIA [id number] [place] [address]#### CYSTC ####[facility] LABCLIA [id number] [place] [address] [place] Cholesterol.total/Chol esterol in HDL [Mass ratio] 6.78 {ratio} High <5.10 [facility] Comment on above: Order Comment: Speci men Type: BLOOD SPECIMENOrdering Facility: [facility] Address: [address] [place], [place] [address] Performed By: #### 2 4331-1 ####[facility] LABCLIA [id number] [address] LABCLIA [id number] [place] [address]#### CYSTC ####[facility] LABCLIA [id number] [place] [address] [place] FASTING TIME 12 hrs Normal [facility] Comment on above: Order Comment: Speci men Type: BLOOD SPECIMENOrdering Facility: [facility] Address: [address] [place] [address] Performed By: #### 2 4331-1 ####[facility] LABCLIA [id number] [address] LABCLIA [id number] [place] [address]#### CYSTC ####[facility] LABCLIA [id number] [place] [address] [place] Triglyceride [Mass/Vol] 194 mg/dL High <150 [facility] Comment on above: Order Comment: Speci men Type: BLOOD SPECIMENOrdering Facility: [facility] Address: [address] [place] [address] Result Comment: <150 mg/dL, Normal 150-199 mg/dL, Borderline high 200-499 mg/dL, High >499 mg/dL, Very high Performed By: #### 2 4331-1 ####[facility] LABCLIA [id number] [address] LABCLIA [id number] [place] [address]#### CYSTC ####[facility] LABCLIA [id number] [address] [place] Ileana 01-12-2024 REBECCA Telephone (HEMTSA) KAYLEEN KOVACS ([id number]) 1995 F Date Time Provider Department 01/12/24 VALERIA DEJESUS During your visit today, we recorded the following information about you: Valeria Dejesus RN 01/12/2024 9:06 AM Signed Patient has called to inquire as to whether she needs to be fasting for blood work she scheduled [facility] this morning. I confirmed with her that she should fast;she states that she ate an hour ago and will reschedule, Transferred to [facility]. No other questions or concerns noted Valeria Dejesus RN Allergies As of Date: 01/12/2024 Noted Allergy Reaction CYMBALTA (DULOXETINE) 11/17/2023 14 - Other: See Comments Comments: Suicidal ideation Date Reviewed: 01/09/2024 Reviewed by: Mackenzie Sigala RN - Fully Assessed Reason for Visit: Patient Question [6277] Prescriptions as of 01/12/2024 - cloNIDine HCl (CATAPRES) 0.3 mg tablet Take 0.3 mg by mouth. - ibuprofen (MOTRIN) 800 mg tablet Take 800 mg by mouth three times a day as needed. - aspirin/acetaminophen/ caffeine (EXCEDRIN EXTRA STRENGTH ORAL) Take by mouth two times a day. - phentermine HCl (ADIPEX-P ORAL) Take by mouth once daily. - oxybutynin ER (DITROPAN XL) 10 mg 24 hr tablet Take 10 mg by mouth once daily. - pregabalin (LYRICA) 300 mg capsule Take 300 mg by mouth two times a day. - QUEtiapine (SEROQUEL) 100 mg tablet Take 100 mg by mouth daily at bedtime. - lamoTRIgine (LAMICTAL) 100 mg tablet Take 125 mg by mouth two times a day. - busPIRone (BUSPAR) 15 mg tablet Take 30 mg by mouth two times a day. - sertraline (ZOLOFT) 25 mg tablet Take 25 mg by mouth once daily. - traMADol 100 mg TM24 Take 100 mg by mouth once daily. - traMADol 25 mg tablet Take 50 mg by mouth two times a day. - ondansetron (ZOFRAN) 4 mg tablet Take 4 mg by mouth every 8 hours as needed for nausea/vomiting. - tiZANidine (ZANAFLEX) 2 mg tablet Take 0.5 tablets by mouth every 6 hours as needed. - baclofen 15 mg tablet Take 1 tablet by mouth three times a day. Problem List As Of Date: 01/12/2024 (None) Encounter Status:Closed by VALERIA DEJESUS on 01/12/24 [facility] CNOVon 01-09-2024 CNOV Office Visit (REMS31 ) KAYLEEN KOVACS ([id number]) 1995 F Date Time Provider Department 01/09/24 11:00 AM NATY BENEDICT REMS31 During your visit today, we recorded the following information about you: Pulse Respiration Blood pressure Weight 95/minute 18/minute 123/78 91 kg Height 1.753 m Mackenzie Sigala RN 01/09/2024 10:58 AM Signed Patient presents with chief complaints of mid back pain. stated last week fell out of wheelchair after seizure and now the left knee is painful. Any new or significant change in pain? no Worst level of pain, 1-10, with 1 being mild discomfort is 8 PAIN INCREASED BY: SITTING and OTHER activity PAIN DECREASED BY: OTHER THERAPEUTIC INTERVENTIONS: PHYSICAL THERAPY LAND, PHYSICAL THERAPY WATER, and MEDICATION The following tests/records were reviewed: ROJAS Ornelas Gregory Allen, MD 01/10/2024 8:10 AM Signed 01/07/2024 PROMIS Global Health Physical Health Summary Physical health: Poor Everyday physical activity, ability: Not at all Fatigue: Severe Pain level: 8 General health: Poor Social activities/roles, ability: Fair Physical Health T-Score 23.5 (Poor) Physical Health Percentile 0 PROMIS Global [facility] Mental Health Summary Quality of life: Fair Mental health (mood,thinking): Poor Social satisfaction: Fair Emotional problems (anxious,depressed): Always Mental Health T-Score 28.4 (Poor) Mental Health Percentile 2 PHQ-9 Score: 14(Moderate Depression) PHQ-9 Self-Harm: Not at all MOE-7 Score: 18(Severe Anxiety) NEURO-QOL Cognitive Function T-Score 43(Mild Dysfunction) Neuro-Qol Cognitive Function Percentile 24 PROMIS Physical Function T-Score 28(Severe Dysfunction) PROMIS Physical Function Percentile 1 PROMIS Pain Interference T-Score 74(Severe) PROMIS Pain Interference Percentile 1 Percentiles provide an indication of how a patient's score ranks in relation to the [place] general population. > 31st percentile is within normal limits or better *< 31st percentile is at least ? SD worse than population, which may be clinically relevant < 16th percentile is at least 1 SD worse than population and warrants attention - - - PMANDR/SCI Medicine Attending Outpatient Note Name: Kayleen Kovacs [id number] I was asked to evaluate (Kayleen Kovacs) by (Dr referring physician) for recommendations regarding management of his/her rehabilitation needs. My findings and recommendations will be communicated through the shared electronic medical record. Date of Service: 01/09/24 Chief complaint: mid to low LBP Onset: 06/25/22 Location: low back Character: burning stabing aching shooting Radiation: left > right back Intensity: 7 to 9 Duration: on and off Palliative: rest, aqua therapy Marijuana, ibuprophen Provocative: movement, Night Treatment that did not help: shock therapy not sure, zanaflex Hx of Injury: SCI Patient Summary: Kayleen Kovacs is a 28 yo female with a PMH for Anxiety, Borderline personality disorder, Obesity, Seizure disorder, Polycystic ovary syndrome who was admitted to [facility] on 06/26/22 following a fall due to seizure with suspected SCI due to L1 burst fracture. She was taken to the OR on 06/26/22 by Getachew Leong for T11 - L3 PSDF. Hospital course complicated by Neuropathic pain and UTI. She was sent to inpatient rehab on 07/08/22 and discharged on 07/28/22. She was admitted to [facility] on 05/05/23 with continued pain with imaging c/w nonhealing L1 fracture. She was taken to the OR on on 05/05/23 by Getachew Mendez for T12 -L2 ASDF with L1 corpectomy and discectomy at T12-L1 and L1-L2. Hospital course complicated by Pulmonary embolism and left hemothorax s/p video assisted thoracoscopy, VATS, chest tube placement and rib fragment removal by Dr Hernández (05/17/23). Interval History: Surgery last week and fell with left knee joint effusion per xray. Past Medical History: Anxiety Borderline personality disorder Obesity Nocturnal Epilepsy Polycystic ovary syndrome L1 burst fracture s/p T11 - L3 PSDF (06/26/22). Neuropathic pain UTI Nonhealing L1 fracture s/p T12 -L2 ASDF with L1 corpectomy and discectomy at T12-L1 and L1-L2 (05/05/23). Pulmonary embolism Left hemothorax s/p video assisted thoracoscopy, VATS, chest tube placement and rib fragment removal by Dr Hernández (05/17/23). Sleep Apnea Past Surgical History: T11 - L3 PSDF (06/26/22). L1 corpectomy and discectomy at T12-L1 and L1-L2 (05/05/23). Left hemothorax s/p video assisted thoracoscopy, VATS, chest tube placement and rib fragment (more content not included)... Normal [facility]Non [facility]-09[facility]2024 [facility] FERMÍNKAYLEEN ([id number]) 1995 F Date Time Provider Department 01/09/24 NATY BENEDICT REMS31 During your visit today, we recorded the following information about you: Shasta Garcia 01/09/2024 3:29 PM Signed Patient was seen today, 01/09/24 Ms. Kovacs forgot to ask you a question. Is there anything that you can do for her pain in mid to lower back and both sides more so on the left side? Please advise. Shasta Garcia 01/10/2024 9:[address] Benedict message was relayed to Ms. Kovacs this morning, 01/10/24. Ms. Kovacs is stating that her current physicians are not aware of any pain management physicians that deal with spinal cord injury patients. She is asking if you can recommend a pain management physician for her to see? Please advise. Allergies As of Date: 01/09/2024 Noted Allergy Reaction CYMBALTA (DULOXETINE) 11/17/2023 14 - Other: See Comments Comments: Suicidal ideation Date Reviewed: 01/09/2024 Reviewed by: Mackenzie Sigala RN - Fully Assessed Reason for Visit: Question about pain issue [Other] Primary Visit Diagnosis:Neuropathic pain [M79.2] Other Visit Diagnosis:Paraplegia (HCC) [G82.20] Order(s):CONSULT TO PAIN MGT [086164] Order #: [id number]: 1 FUTURE Prescriptions as of 01/22/2024 - cloNIDine HCl (CATAPRES) 0.3 mg tablet Take 0.3 mg by mouth. - ibuprofen (MOTRIN) 800 mg tablet Take 800 mg by mouth three times a day as needed. - aspirin/acetaminophen/ caffeine (EXCEDRIN EXTRA STRENGTH ORAL) Take by mouth two times a day. - phentermine HCl (ADIPEX-P ORAL) Take by mouth once daily. - oxybutynin ER (DITROPAN XL) 10 mg 24 hr tablet Take 10 mg by mouth once daily. - pregabalin (LYRICA) 300 mg capsule Take 300 mg by mouth two times a day. - QUEtiapine (SEROQUEL) 100 mg tablet Take 100 mg by mouth daily at bedtime. - lamoTRIgine (LAMICTAL) 100 mg tablet Take 125 mg by mouth two times a day. - busPIRone (BUSPAR) 15 mg tablet Take 30 mg by mouth two times a day. - sertraline (ZOLOFT) 25 mg tablet Take 25 mg by mouth once daily. - traMADol 100 mg TM24 Take 100 mg by mouth once daily. - traMADol 25 mg tablet Take 50 mg by mouth two times a day. - ondansetron (ZOFRAN) 4 mg tablet Take 4 mg by mouth every 8 hours as needed for nausea/vomiting. - tiZANidine (ZANAFLEX) 2 mg tablet Take 0.5 tablets by mouth every 6 hours as needed. - baclofen 15 mg tablet Take 1 tablet by mouth three times a day. Problem List As Of Date: 01/09/2024 (None) Encounter Status:Closed by JEFERSON BENEDICT on 01/18/24 Normal [facility] Ambulatory Visit Summaryon 0 01-02-2024 Ambulatory Visit Summary Ambulatory Visit Summary [facility] Mcallister :1995 Visit Date:01/02/2024 Ambulatory Visit Instructions Your Diagnosis Encounter for weight management Left knee injury Vaping-related disorder Your Care Team Attending Physician - Earline Koroma Primary Care Physician - Earline Koroma This Is Your Medications List baclofen (baclofen 20 mg Tab) busPIRone (busPIRone 30 mg oral tablet) clonidine (cloNIDine 0.3 mg Tab) ibuprofen (ibuprofen 800 mg Tab) ibuprofen (ibuprofen 800 mg Tab) lamotrigine (lamotrigine 100 mg Tab) ondansetron (ondansetron 4 mg Dis Tab) oxybutynin (oxybutynin 10 mg ER Tab) phentermine (phentermine 37.5 mg Tab) pregabalin (pregabalin 300 mg Cap) quetiapine (quetiapine 100 mg Tab) sertraline (sertraline 50 mg Tab) tizanidine (tiZANidine 4 mg Tab) tramadol (traMADOL 50 mg Tab) tramadol (traMADol 100 mg/24 hours oral capsule, extended release) Procedures Performed Spinal fusion (2022), section, Tonsillectomy. Discharge Vitals Temperature (Temporal Artery) 36.8 ?C Heart Rate (Peripheral) 92 Respiratory Rate 18 Blood Pressure 138/84 Height 175 cm Height 69 in What to do next Scheduled Follow-Up Appointments Monday 10:20 AM EDT With: Earline Koroma Where: [facility] Family Medicine Antionette Normal [facility] Family Medicine Office/Clini c Noteon 01-02-2024 Family Medicine Office/Clinic Note Family Medicine Office/Clinic Note HPI Staff Kayleen is a 28 year old female presenting for 1 month follow up Wasn't able to get a weight done this month, it's been a bad month and too many things going on Had a seizure yeterday morning, the floor punched her face and knee is bruised and swollen Weight management: Started Phentermine on 10/06/23 Sleeping well:Yes, 6-8 hours Chest pain:No Tremors:No Headaches:No Heart fluttering:No Blurred Vision:No Beginning weight: 10/12/23 224 Previous weight: 11/07/23 218 Today's weight: Questions/Concerns: History of Present Illness pt presents today for weight management. and for left knee pain and swelling from falling on floor during a seizure Review of Systems PHQ Score Initial Depression Screen Score: 1 SCORE Physical Exam Vitals & Measurements T: 36.8 ?C(Temporal Artery) HR: 92(Peripheral) RR: 18 BP: 138/84 SpO2: 98% HT: 69 in HT: 175 cm General: alert, no acute distress ENMT: oral mucosa moist, no pharyngeal erythema or exudate Cardiovascular: regular rate and rhythm, normal peripheral perfusion Respiratory: Lungs CTA, respirations non labored Extremities: no deformity, no trauma Neurological: oriented x 4, LOC appropriate for age, CN II-XII intact, motor strength equal & normal bilaterally, speech normal left knee swollen tender and bruised, left elbow bruised Assessment/Plan 1. Encounter for weight management (Z76.89: Persons encountering health services in other specified circumstances) pt will go to [facility] for weight next week. adipex refill sent. RTC 4 weeks 2. Left knee injury (S89.92XA: Unspecified injury of left lower leg, initial encounter) pt had a seizure yesterday and fell on her left knee. knee is bruised swollen and tender. she also has a bruise on left elbow and a fat lip. xray order provided for [facility] 3. Vaping-related disorder (U07.0: Vaping-related disorder) consider not vaping Orders: baclofen, 10 mg = 1 tab(s), Oral, TID, # 90 tab(s), Refills(s) 1, Pharmacy: [facility], 175.3, cm, 10/06/23 10:31:00 EDT, Height/Length Dosing, 113.3, kg, 03/01/23 9:34:00 EDT, Weight Dosing phentermine, 37.5 mg = 1 tab(s), Oral, Daily, # 30 tab(s), Refills(s) 0, Pharmacy: [facility], 175, cm, 12/01/23 10:10:00 EDT, Height/Length Dosing, 99, kg, 12/01/23 10:10:00 EDT, Weight Dosing phentermine, 37.5 mg = 1 tab(s), Oral, Daily, # 30 tab(s), Refills(s) 0, Pharmacy: [facility], 175, cm, 01/02/24 14:51:00 EDT, Height/Length Dosing, 99, kg, 12/01/23 10:10:00 EDT, Weight Dosing Follow-up No qualifying data available Problem List/Past Medical History Ongoing Acute gastroenteritis Anxiety and depression Apnea Back pain Back pain with history of spinal surgery Bladder spasms BMI 32.0-32.9,adult Chronic hepatitis C Constipation Diarrhea Encounter for weight management Gasping for breath H/O chest tube placement Hepatitis C Left knee injury Pain management Paraplegia Rib pain on left [...] PRN, 1 refills lamotrigine 100 mg Tab, See Instructions ondansetron 4 mg Dis Tab, 4 mg= [...] Oral, Daily tiZANidine 4 mg Tab, See Instructions, Still taking, not as prescribed: weaning her self off it, didn't feel it was helping traMADol 100 mg/24 hours oral capsule, extended release, 100 mg= 1 cap(s), Oral, Daily traMADOL 50 mg Tab, 50 mg= 1 tab(s), Oral, q12hr, PRN Allergies Cymbalta (Suicide) hydrOXYzine (AOF, Eruption) propofol (Anaphylaxis) sodium hypochlorite topical (Unknown, Urticaria) Social History Alcohol - Denies Alcohol Use, 02/03/2020 Substance Abuse - Denies Substance Abuse, 02/03/2020 Tobacco Former smoker, quit more than 30 days ago Tobacco Use:. Current vaping or e-cigarette use Smokeless Tobacco Use:. Vaping, 10 year(s). Ready to change: No. Household tobacco concerns: No. Yes, 01/02/2024 Family History Ovarian cancer: Grandparent. Immunizations Vaccine Date Status Comments influenza virus vaccine, inactivated - Not Given Patient Refuses influenza virus vaccine, inactivated 07/17 (more content not included)... [facility] Comment on above: Result Comment: Elec tronically Signed By: Earline Koroma.jean\Date and Time Signed: 01/02/24 15:06 EDT Auth for Release of Medical Recordson 12-27-2023 Auth for Release of Medical Records [id number] 0TIFF [facility] Pre-Certification Formon Pre-Certification Form [id number] TIFF [facility] Physician Orderon 12-05-2023 Physician Order [id number] TIFF [facility] Sleep Studieson 12-05-2023 Sleep Studies [id number]#1. 00TIFF [facility] Family Medicine Office/Clini c Noteon 12-01-2023 Family [...] Daily, # 30 tab(s), Refills(s) 0, Pharmacy: [facility], 175, cm, 12/01/23 10:10:00 EDT, Height/Length Dosing, 99, kg, 12/01/23 10:10:00 EDT, Weight Dosing phentermine, 37.5 mg = 1 tab(s), Oral, Daily, # 30 tab(s), Refills(s) 0, Pharmacy: [facility], 175.3, cm, 10/27/23 14:13:00 EDT, Height/Length Dosing, 102, kg, 10/12/23 14:58:00 EDT, Weight Dosing pregabalin, 300 mg = 1 cap(s), Oral, BID, # 60 cap(s), Refills(s) 0, Pharmacy: [facility]/pharmacy #[id number], 175.3, cm, 06/27/23 13:57:00 EST, Height/Length Dosing, 113.3, kg, 03/01/23 9:34:00 EDT, Weight Dosing pregabalin, 300 mg = 1 cap(s), Oral, BID, # 60 cap(s), Refills(s) 0, Pharmacy: [facility], 175, cm, 12/01/23 10:10:00 EDT, Height/Length Dosing, 99, kg, 12/01/23 10:10:00 EDT, Weight Dosing senna, 30 mg = 2 tab(s), Oral, Daily, PRN for constipation, # 30 tab(s), Refills(s) 0, Pharmacy: [facility], 175.3, cm, 10/06/23 10:31:00 EDT, Height/Length [...] Grandparent. Immunizat (more content not included)... Normal [facility] Comment on above: Result Comment: Elec tronically Signed By: Earline Koroma.jean\Date and Time Signed: 12/01/23 10:48 EDT Ileana 11-20-2023 REBECCA Telephone (REHMME) KAYLEEN KOVACS ([id number]) 1995 F Date Time Provider Department 11/20/23 TANGELA PAULA During your visit today, we recorded the following information about you: Sri Johnson 11/20/2023 3:38 PM Signed Tangela Paula APRN.[facility] has recommended Patient schedule a follow-up appointment (in-office) with Dr. Benedict. Called Patient-no answer. Left voicemail asking she call the [facility] at [phone] to schedule. Message also sent via [employer]. Sri Pritchett 11/28/2023 4:51 PM Signed Per appt desk, Patient is scheduled for 01/09/2024 Sri Johnson Allergies As of Date: 11/20/2023 Noted Allergy Reaction CYMBALTA (DULOXETINE) 11/17/2023 14 - Other: See Comments Comments: Suicidal ideation Date Reviewed: 11/17/2023 Reviewed by: Tangela Paula APRN.PLATFORM ARCHITECT - Fully Assessed Reason for Visit: Appointment [...] Status:Closed by SRI JOHNSON on 11/28/23 Normal [facility]son 11-02-2023 Forms [id number]#[id number] 0TIFF Normal [facility] Ambulatory Visit Summaryon 0 10-27-2023 Ambulatory Visit Summary KAYLEEN KOVACS :1995 Visit Date:10/27/2023 Ambulatory Visit Instructions Your Diagnosis Back pain with history of spinal surgery Paraplegia Snoring Apnea BMI 33.0-33.9,adult Former smoker Other specified postprocedural states Your Care Team Attending Physician - Earline Koroma Primary Care Physician - Earline Koroma This Is Your Medications List Misc Prescription (BACLOFEN 20 MG TABLET) baclofen (baclofen [...] 10:00 AM EDT With: Earline Koroma Where: [facility] Family Medicine [place] Normal [facility] Family Medicine Office/Clini c Noteon 10-27-2023 Family Medicine Office/Clinic Note HPI Staff Kayleen is a 28 year old female presenting for [place] paperwork for her Weight management: Started Phentermine [...] will order at home sleep study through [facility]. 4. Sleep apnea (G47.30: Sleep apnea, unspecified) [...] Daily, # 30 tab(s), Refills(s) 0, Pharmacy: [facility], 175.3, cm, 10/27/23 14:13:00 EDT, Height/Length Dosing, 102, kg, 10/12/23 14:58:00 EDT, Weight Dosing phentermine, 37.5 mg = 1 tab(s), Oral, Daily, # 30 tab(s), Refills(s) 0, Pharmacy: [facility], 175.3, cm, 10/06/23 10:31:00 EDT, Height/Length [...] q12hr, PRN Allerg (more content not included)... [facility] Comment on above: Result Comment: Elec tronically Signed By: Earline Koroma\.br\Date and Time Signed: 10/27/23 14:51 EDT [facility]son 10-27-2023 Forms [id number]#1.0 0TIFF [facility] Ambulatory Visit Summaryon 0 10-06-2023 Ambulatory Visit Summary KAYLEEN KOVACS :1995 Visit Date:10/06/2023 Ambulatory Visit Instructions Your [...] Follow-Up Appointments Monday 10:00 AM EDT With: Gustavo ARANDA, Earline Moran Where: [place] [id number]- \.br\ Medications\. br\ What How Much When Why Instructions\ .br\ New oxybutynin (oxybutynin 10 mg ER Tab) 1 Tablets By Mouth Every day Pickup at [facility]\.br\ New phentermine (phentermine 37.5 mg Tab) 1 Tablets By Mouth Every day Pickup at [facility]\.br\ New senna (senna 15 mg oral tablet) 2 Tablets By Mouth Every day as needed for for constipation Pickup at [facility]\.br\ Unchanged busPIRone (busPIRone 30 mg oral [...] surgery Duration: 30 Days\.br\ Pharmacy Information\. br\ [facility]: [address] [place], [place] [id number] [phone]\.br\ Allergies\.br \ Cymbalta (Suicide)\.br \ hydrOXYzine (AOF, [...] for choosing us for your care.\.br\ \.br\ [facility] Medicine Office/Clini c Noteon 10-06-2023 Family Medicine [...] a bowel movement. Does like using Miralax. [facility] was called and they are able [...] RTC 4 weeks. pt will go to [facility] to get weight next week 2. Bladder spasms (N32.89: Other specified disorders of bladder) will increase oxybutynin to 10mg 3. Constipation (K59.00: Constipation, unspecified) will order senna tabs. pt states this has helped in the past Orders: busPIRone, 15 mg = 1 tab(s), Oral, TID, # 90 tab(s), Refills(s) 0, Pharmacy: [facility], 175.3, cm, 08/24/23 9:10:00 EST, Height/Length Dosing, 113.3, kg, 03/01/23 9:34:00 EDT, Weight Dosing oxybutynin, 5 mg = 1 tab(s), Oral, Daily, # 90 tab(s), Refills(s) 1, Pharmacy: [facility], 175.3, cm, 08/24/23 9:10:00 EST, Height/Length Dosing, 113.3, kg, 03/01/23 9:34:00 EDT, Weight Dosing oxybutynin, 10 mg = 1 tab(s), Oral, Daily, # 90 tab(s), Refills(s) 0, Pharmacy: [facility], 175.3, cm, 10/06/23 10:31:00 EDT, Height/Length Dosing, 113.3, kg, 03/01/23 9:34:00 EDT, Weight Dosing phentermine, 37.5 mg = 1 tab(s), Oral, Daily, # 30 tab(s), Refills(s) 0, Pharmacy: [facility], 175.3, cm, 10/06/23 10:31:00 EDT, Height/Length Dosing, 113.3, kg, 03/01/23 9:34:00 EDT, Weight Dosing quetiapine, 50 mg = 1 tab(s), Oral, Daily, # 90 tab(s), Refills(s) 1, Pharmacy: [facility]/pharmacy #[id number], 175.3, cm, 07/10/23 10:35:00 EST, Height/Length Dosing, 113.3, kg, 03/01/23 9:34:00 EDT, Weight Dosing quetiapine, 25 mg = 1 tab(s), Oral, Daily, # 90 tab(s), Refills(s) 1, Pharmacy: [facility], 175.3, cm, 08/24/23 9:10:00 EST, Height/Length Dosing, 113.3, kg, 03/01/23 9:34:00 EDT, Weight Dosing senna, 30 mg = 2 tab(s), Oral, Daily, PRN for constipation, # 30 tab(s), Refills(s) 0, Pharmacy: [facility], 175.3, cm, 10/06/23 10:31:00 EDT, Height/Length Dosing, 113.3, kg, 03/01/23 9:34:00 EDT, Weight Dosing sertraline, 75 mg = 1.5 tab(s), Oral, Daily, # 30 tab(s), Refills(s) 0, Pharmacy: [facility]/pharmacy #[id number], 175.3, cm, 07/10/23 10:35:00 EST, Height/Length [...] oral capsule, extended (more content not included)... Normal [facility] Comment on above: Result Comment: Elec tronically Signed By: Earline Koroma\Date and Time Signed: 10/06/23 13:14 EDT Medication Consenton 024 Medication Consent [id number] 0TIFF [facility] ALLIED HEALTHon 2023 ALLIED HEALTH HNO ID: [id number] Author: LEBRON ESTES RT(R) Service: Radiology Author Type: Technologist Type: Allied Health Filed: 2023 16:16 Note Text: Radiology Service Progress Note PATIENT NAME: Kayleen Kovacs DATE OF SERVICE: 2023 TIME: 4:16 PM [...] PATIENT PRESENTS WITH AN IMPLANTABLE OR ATTACHED AIR BRAKE MAN: No RADIOLOGY DEPARTMENT: MR; Exam(s) Completed: Spine: Thoracic spine and Lumbar spine PERIPHERAL IV DATA: Not applicable SIGNED BY: RT Hilton(R) 2023 4:16 PM [facility] MRI LUMBAR SPINE WO IVCONon 2023 MRI LUMBAR SPINE WO IVCON * * *Final Report* * * DATE OF EXAM: 2023 5:09PM [facility] 0303 - MRI LUMBAR SPINE WO IVCON [...] surgical change: Redemonstrated is fixation hardware connecting [id number], with laminectomy around L1. There is considerable [...] and assume there are 5 lumbar-type vertebrae. Protohistorian: PSCB Transcribe Date/Time: 2023 7:06P Dictated by : ISMA TOVAR MD This examination was interpreted and the report reviewed and electronically signed by: ISMA TOVAR MD on 2023 7:17PM EST [id number] Normal [facility] MRI THORACIC SPINE WO IVCONo n 2023 MRI THORACIC SPINE WO IVCON * * *Final Report* * * DATE OF EXAM: 2023 5:09PM [facility] 0325 - MRI THORACIC SPINE WO IVCON [...] surgical change: Redemonstrated is fixation hardware connecting [id number], with laminectomy around L1. There is considerable [...] and assume there are 5 lumbar-type vertebrae. Protohistorian: [facility] Transcribe Date/Time: 2023 7:06P Dictated by : ISMA TOVAR MD This examination was interpreted and the report reviewed and electronically signed by: ISMA TOVAR MD on 2023 7:17PM EST [id number] Normal [facility] No Panel Informationon 09-21 [facility] XR LUMBAR 2V AP/LATon 2023 XR LUMBAR [...] of the thoracolumbar spine without apparent complication. Protohistorian: BAY Transcribe Date/Time: Sep 23 2023 11:59A Dictated by : HEATHER GOYAL MD This examination was interpreted and the report reviewed and electronically signed by: HEATHER GOYAL MD on Sep 23 2023 12:09PM EST [id number] [facility] XR THORACIC 2V AP/LATon 09-01 XR THORACIC [...] of the thoracolumbar spine without apparent complication. Protohistorian: BAY Transcribe Date/Time: Sep 23 2023 11:59A Dictated by : HEATHER GOYAL MD This examination was interpreted and the report reviewed and electronically signed by: HEATHER GOYAL MD on Sep 23 2023 12:09PM EST [id number] Normal [facility] Ambulatory Visit Summaryon 0 08-24-2023 Ambulatory Visit Summary BRIANHOLLIGALILEOKAYLEEN Esvin :1995 Visit Date:08/24/2023 Ambulatory Visit Instructions Your [...] 10:00 AM EDT With: Earline Koroma Where: [facility] Medicine [place] Normal [facility] Medicine Office/Clini c Noteon 08-24-2023 Family Medicine [...] and drinks a lot of water. states grandlydia has sjogren's History of Present Illness pt [...] day(s), # 28 tab(s), Refills(s) 0, Pharmacy: [facility], 175.3, cm, 08/24/23 9:10:00 EST, Height/Length Dosing, 113.3, kg, 03/01/23 9:34:00 EDT, Weight Dosing 2. Diarrhea (R19.7: Diarrhea, unspecified) encouraged pt to go to ER if she is not able to keep herself hydrated Ordered: dicyclomine, 20 mg = 1 tab(s), Oral, QID, X 7 day(s), # 28 tab(s), Refills(s) 0, Pharmacy: [facility], 175.3, cm, 08/24/23 9:10:00 EST, Height/Length Dosing, 113.3, kg, 03/01/23 9:34:00 EDT, Weight Dosing 3. Stomach cramps (R10.9: Unspecified abdominal pain) bentyl sent Ordered: dicyclomine, 20 mg = 1 tab(s), Oral, QID, X 7 day(s), # 28 tab(s), Refills(s) 0, Pharmacy: [facility], 175.3, cm, 08/24/23 9:10:00 EST, Height/Length Dosing, 113.3, kg, 03/01/23 9:34:00 EDT, Weight Dosing 4. Vaping nicotine dependence, tobacco product (F17.290: Nicotine dependence, other tobacco product, uncomplicated) continue not vaping Ordered: dicyclomine, 20 mg = 1 tab(s), Oral, QID, X 7 day(s), # 28 tab(s), Refills(s) 0, Pharmacy: [facility], 175.3, cm, 08/24/23 9:10:00 EST, Height/Length Dosing, 113.3, kg, 03/01/23 9:34:00 EDT, Weight Dosing Orders: ibuprofen, 800 mg = 1 tab(s), Oral, TID, # 90 tab(s), Refills(s) 1, Pharmacy: [facility]/pharmacy #[id number], 175.3, cm, 05/31/23 10:31:00 EST, Height/Length Dosing, 113.3, kg, 03/01/23 9:34:00 EDT, Weight Dosing ondansetron, 4 mg = 1 tab(s), Oral, q6hr, PRN Nausea/Vomiting, # 30 tab(s), Refills(s) 0, [id number] 175.3, cm, 07/10/23 10:35:00 EST, Height/Length Dosing, 113.3, kg, 03/01/23 9:34:00 EDT, Weight Dosing ondansetron, 4 mg = 1 tab(s), Oral, q6hr, PRN Nausea/Vomiting, # 30 tab(s), Refills(s) 0, Pharmacy: [facility], 175.3, cm, 07/10/23 10:35:00 EST, Height/Length Dosing, 113.3, kg, 03/01/23 9:34:00 EDT, Weight Dosing pregabalin, 150 mg = 1 cap(s), Oral, BID, take 1 tab in am take 1 tab at lunch time, # 180 cap(s), Refills(s) 0, [id number], 175.3, cm, 07/10/23 10:35:00 EST, Height/Length Dosing, 113.3, kg, 03/01/23 9:34:00 EDT, Weight Dosing tramadol, 100 mg = 1 cap(s), Oral, Daily, # 30 cap(s), Refills(s) 0, [facility], 175.3, cm, 07/10/23 10:35:00 EST, Height/Length Dosing, 113.3, kg, 03/01/23 9:34:00 EDT, Weight Dosing tramadol, 100 mg = 1 cap(s), Oral, Daily, # 30 cap(s), Refills(s) 0, Pharmacy: [facility], 175.3, cm, 07/10/23 10:35:00 EST, Height/Length [...] injury at T7- (more content not included)... Normal [facility] Comment on above: Result Comment: Elec tronically Signed By: Earline Koroma\.br\Date and Time Signed: 08/24/23 09:38 EST Pre-Certification Formon Pre-Certification Form [id number]#1.0 0TIFF [facility] Physician Referralon 024 Physician Referral [id number]#1. 00TIFF [facility] Ambulatory Visit Summaryon 0 07-10-2023 Ambulatory Visit Summary KAYLEEN KOVACS :1995 Visit Date:07/10/2023 Ambulatory Visit Instructions Your [...] 8:40 AM EST With: Earline Koroma Where: [facility] Medicine [place] Normal [facility] Office/Clini c Noteon 07-10-2023 Family Medicine Office/Clinic Note HPI Staff Kayleen is a 27 year old female presenting to discuss medication Pt states having a lot of nerve pain at night time and would like discuss taking 150mg in am then 150mg in afternoon and then 300mg at bedtime Pt did see neurosurgeon Dr Getachew Shook in [facility] and advised her ribs and back are [...] would like referral for second opinion at [facility]. will send referral. pt would like to split her Lyrica dose to 150mg in am and lunch time. then 300 at bed time. all questions answered. RTC as needed Ordered: pregabalin, 150 mg = 1 cap(s), Oral, BID, take 1 tab in am take 1 tab at lunch time, # 180 cap(s), Refills(s) 0, Pharmacy: [id number], 175.3, cm, 07/10/23 10:35:00 EST, Height/Length Dosing, 113.3, kg, 03/01/23 9:34:00 EDT, Weight Dosing [facility] External Ambulatory Referral 2. Spinal cord injury at T7-T12 level (S24.103A: Unspecified injury at T7-T10 level of thoracic spinal cord, initial encounter) see above Ordered: pregabalin, 150 mg = 1 cap(s), Oral, BID, take 1 tab in am take 1 tab at lunch time, # 180 cap(s), Refills(s) 0, Pharmacy: [id number], 175.3, cm, 07/10/23 10:35:00 EST, Height/Length Dosing, 113.3, kg, 03/01/23 9:34:00 EDT, Weight Dosing [facility] External Ambulatory Referral 3. Rib pain on left side (R07.81: Pleurodynia) see above Ordered: pregabalin, 150 mg = 1 cap(s), Oral, BID, take 1 tab in am take 1 tab at lunch time, # 180 cap(s), Refills(s) 0, Pharmacy: [facility], 175.3, cm, 07/10/23 10:35:00 EST, Height/Length Dosing, 113.3, kg, 03/01/23 9:34:00 EDT, Weight Dosing [facility] External Ambulatory Referral 4. Vaping-related disorder (U07.0: Vaping-related disorder) consider not vaping Ordered: pregabalin, 150 mg = 1 cap(s), Oral, BID, take 1 tab in am take 1 tab at lunch time, # 180 cap(s), Refills(s) 0, Pharmacy: [facility]/pharmacy #6177, 175.3, cm, 07/10/23 10:35:00 EST, Height/Length Dosing, 113.3, kg, 03/01/23 9:34:00 EDT, Weight Dosing [facility] External Ambulatory Referral Other specified postprocedural states [...] BID melatonin, (more content not included)... Normal [facility] Comment on above: Result Comment: Elec tronically [...] the lumbar spine appears intact Interpreted by: Mireya [place] MD Signed by: Mireya [place] MD 07/03/23 Final result Normal [facility] Ambulatory Visit Summaryon 1 08-28-2022 Ambulatory Visit Summary KAYLEEN KOVACS :1995 Visit Date:06/27/2023 Ambulatory Visit Instructions Your Diagnosis Smoker Your Care Team Attending Physician - Earline Koroma Primary Care Physician - Earline Koroma This Is Your Medications List [facility] Prescription (BACLOFEN 20 MG TABLET) baclofen (baclofen [...] 9:00 AM EST With: Earline Koroma Where: [facility] Medicine [place] Normal [facility] Office/Clini c Noteon 06-27-2023 Family Medicine Office/Clinic [...] BID, # 60 tab(s), Refills(s) 0, [id number] 175.[facility], cm, 06/27/23 13:57:00 EST, Height/Length Dosing, 113.3, kg, 03/01/23 9:34:00 EDT, Weight Dosing 2. Rib pain on left side (R07.81: Pleurodynia) see above Ordered: clonidine, 0.3 mg = 1 tab(s), Oral, BID, # 60 tab(s), Refills(s) 0, [facility] 175.3, cm, 06/27/23 13:57:00 EST, Height/Length Dosing, 113.3, kg, 03/01/23 9:34:00 EDT, Weight Dosing 3. Paraplegia (G82.20: Paraplegia, unspecified) in wheelchair Ordered: clonidine, 0.3 mg = 1 tab(s), Oral, BID, # 60 tab(s), Refills(s) 0, [facility] 175.3, cm, 06/27/23 13:57:00 EST, Height/Length Dosing, 113.3, kg, 03/01/23 9:34:00 EDT, Weight Dosing 4. Smoker (F17.200: Nicotine dependence, unspecified, uncomplicated) consider not smoking Ordered: clonidine, 0.3 mg = 1 tab(s), Oral, BID, # 60 tab(s), Refills(s) 0, Pharmacy: [facility], 175.3, cm, 06/27/23 13:57:00 EST, Height/Length Dosing, 113.3, kg, 03/01/23 9:34:00 EDT, Weight Dosing Other specified postprocedural states (Z98.890: Other specified postprocedural states) Orders: oxycodone, See Instructions, TAKE 1-2 TABLETS BY MOUTH EVERY 6 HOURS NEEDED FOR PAIN FOR UP TO 7 DAYS. MAX: 40 MG/DAY, # 10 tab(s), Refills(s) 0, [id number], 175.3, cm, 05/31/23 10:31:00 EST, Height/Length Dosing, 113.3, kg, 03/01/23 9:34:00... oxycodone, See Instructions, Take 1/2 tab in am and 1/2 tab in pm. for 1 week. Then 1/2 tab daily until done with rx., # 12 tab(s), Refills(s) 0, [id number] 175.3, cm, 06/27/23 13:57:00 EST, Height/Length Dosing, 113.3, kg, 03/01/23 9:34:00 ED... pregabalin, 300 mg = 1 cap(s), Oral, BID, # 60 cap(s), Refills(s) 0, Pharmacy: [facility]/pharmacy #6177, 175.3, cm, 03/01/23 9:34:00 EDT, Height/Length Dosing, 113.3, kg, 03/01/23 9:34:00 EDT, Weight Dosing pregabalin, 300 mg = 1 cap(s), Oral, BID, # 60 cap(s), Refills(s) 0, [facility], 175.3, cm, 06/27/23 13:57:00 EST, [...] mg Cap (more content not included)... Normal [facility] Comment on above: Result Comment: Elec tronically Signed By: Earline Koroma\.br\Date and Time Signed: 06/27/23 14:36 EST Physician Referralon 023 Physician Referral [id number]#1.0 0TIFF [facility] Ambulatory Visit Summaryon 1 07-31-2022 Ambulatory Visit Summary KYALEEN KOVACS :1995 Visit Date:05/31/2023 Ambulatory Visit Instructions Your [...] EST With: Earline Koroma Where: [facility] Auth for Release of Medical Recordson 05-30-2023 Auth for Release of Medical Records [id number]#1.0 0TIFF Normal [facility] XR CHEST PORTABLEon 05-22-20 XR CHEST PORTABLE [...] Oren Ko MD 05/22/23 Final result Normal [facility] XR CHEST PORTABLEon 05-21-20 XR CHEST [...] Oren Ko MD 05/21/23 Final result Normal [facility] Troponinon 05-20-2023 Troponin, High Sens 18 ng/L High 0-14 [facility] Comment on above: Result Comment: High Sensitivity Troponin values cannot be compared with other Troponin methodologies. Performed By: #### T [facility] #### [facility] [employer] [address] [place] [id number] Ham Trimmer: Keon San MD XR ABDOMEN (KUB) (SINGLE [...] fusion hardware projecting over the thoracolumbar spine. Onzv-ml-rlzhwfoq stool burden. Subcutaneous emphysema along the left [...] with ileus or partial small bowel obstruction. Ohga-dw-qqhybkch stool burden. 2. Subcutaneous emphysema along the left lateral chest wall. 3. Plates and screws overlying the ribs, similar to the prior study. Interpreted by: Melo Persaud MD Signed by: Melo Persaud MD 05/20/23 Final result Normal [facility] XR CHEST PORTABLEon 05-20-20 XR CHEST [...] emphysema along the left lateral chest wall. monitoring specialist leads overlie the chest. Trachea midline. No [...] Melo Persaud MD 05/20/23 Final result Normal [facility] XR CHEST PORTABLEon 05-19-20 XR CHEST [...] Andrew Sol MD 05/19/23 Final result Normal [facility] XR CHEST PORTABLE EXAMINATION: ONE XRAY [...] Dl Dangelo MD 05/19/23 Final result Normal [facility] Basic Metabolic Profon 05-18 Anion gap [Moles/Vol] 17 mmol/L Normal - [facility] Comment on above: Performed By: #### B MP, CDP #### [facility] [address] [place] [id number] Ham Trimmer: Keon San MD Calcium [Mass/Vol] 9.2 mg/dL Normal 8.6-10.4 [facility] Comment on above: Performed By: #### B KIM, CDP #### [employer] [address] [place] [id number] Ham Trimmer: Keon San MD Chloride [Moles/Vol] 101 mmol/L Normal 98-107 [facility] Comment on above: Performed By: #### B MP, CDP #### [facility] [address] [place] [address] [phone] Ham Trimmer: Keon San MD CO2 [Moles/Vol] 18 mmol/L Low 20-31 [facility] Comment on above: Performed By: #### B KIM, CDP #### [facility] [address] [place] [phone] Ham Trimmer: Keon San MD Creatinine [Mass/Vol] 0.3 mg/dL Low 0.5-0.9 [facility] Comment on above: Performed By: #### B KIM, CDP #### [facility] [employer] [address] [place] [id number] Ham Trimmer: Keon San MD GFR/1.73 sq M.predicted among non-blacks MDRD (S/P/Bld) [Vol rate/Area] mL/min/{1.73_m2} Normal >60 [facility] Comment on above: Result Comment: These [...] Performed By: #### B KIM, CDP #### [address] [address] Ham Trimmer: Keon San MD Glucose [Mass/Vol] 79 mg/dL Normal 70-99 [facility] Comment on above: Performed By: #### B KIM, CDP #### [facility] [employer] [address] [place] [id number] Ham Trimmer: Keon San MD Potassium [Moles/Vol] 3.9 mmol/L Normal 3.7-5.3 [facility] Comment on above: Performed By: #### B KIM, CDP #### [facility] [employer] [address] [place] [phone] Ham Trimmer: Keon San MD Sodium [Moles/Vol] 136 mmol/L Normal 135-144 [facility] Comment on above: Performed By: #### B KIM, CHANDLER #### [address] [address] Ham Trimmer: Keon San MD Urea nitrogen [Mass/Vol] 3 mg/dL Low 6-20 [facility] Comment on above: Performed By: #### B KIM, CDP #### [address] [address] Ham Trimmer: Keon San MD CBC with Diffon 05-18-2023 Abs. Basophil 0.03 k/uL Normal 0.00-0.20 [facility] Comment on above: Performed By: #### U RC #### [place] [address] Ham Trimmer: Keon San MD Abs. Eosinophil <0.03 Normal 0.00-0.44 [facility] Comment on above: Performed By: #### U RC #### [place] [address] Ham Trimmer: Keon San MD Abs.Imm.Granulocyte 0.06 k/uL Normal 0.00-0.30 [facility] Comment on above: Performed By: #### U RC #### [place] [address] Ham Trimmer: Keon San MD Abs.Neutrophil (Seg) 10.33 k/uL High 1.50-8.10 [facility] Comment on above: Performed By: #### U RC #### [address] [address] Ham Trimmer: Keon San MD Basophils/100 WBC (Bld) 0 % Normal 0-2 [facility] Comment on above: Performed By: #### U RC #### [address] [address] Ham Trimmer: Keon San MD Eosinophils/100 WBC (Bld) 0 % Low 1-4 [facility] Comment on above: Performed By: #### U RC #### [address] [address] Ham Trimmer: Keon San MD Erythrocyte distribution width (RBC) [Ratio] 14.7 % High 11.8-14.4 [facility] Comment on above: Performed By: #### U RC #### [address] [address] Ham Trimmer: Keon San MD Hematocrit (Bld) [Volume fraction] 41.3 % Normal 36.3-47.1 [facility] Comment on above: Performed By: #### U RC #### [address] [address] Ham Trimmer: Keon San MD Hemoglobin (Bld) [Mass/Vol] 12.5 g/dL Normal 11.9-15.1 [facility] Comment on above: Performed By: #### U RC #### [address] [address] Ham Trimmer: Keon San MD Immature granulocytes/100 WBC (Bld) 1 % High 0 [facility] Comment on above: Performed By: #### U RC #### [address] [address] Ham Trimmer: Keon San MD Lymphocytes (Bld) [#/Vol] 1.83 10*3/uL Normal 1.10-3.70 [facility] Comment on above: Performed By: #### U RC #### [address] [address] Ham Trimmer: Keon San MD Lymphocytes/100 WBC (Bld) 14 % Low 24-43 [facility] Comment on above: Performed By: #### U RC #### [address] [address] Ham Trimmer: Keon San MD MCH (RBC) [Entitic mass] 26.4 pg Normal 25.2-33.5 [facility] Comment on above: Performed By: #### U RC #### [place] [address] Ham Trimmer: Keon San MD MCHC (RBC) [Mass/Vol] 30.3 g/dL Normal 28.4-34.8 [facility] Comment on above: Performed By: #### U RC #### [place] [address] Ham Trimmer: Keon San MD MCV (RBC) [Entitic vol] 87.1 fL Normal 82.6-102.9 [facility] Comment on above: Performed By: #### U RC #### [address] [address] Ham Trimmer: Keon San MD Monocytes (Bld) [#/Vol] 0.86 10*3/uL Normal 0.10-1.20 [facility] Comment on above: Performed By: #### U RC #### [address] [address] Ham Trimmer: Keon San MD Monocytes/100 WBC (Bld) 7 % Normal 3-12 [facility] Comment on above: Performed By: #### U RC #### [address] [address] Ham Trimmer: Keon San MD Neutrophil (Seg) 79 % High 36-65 [facility] Comment on above: Performed By: #### U RC #### [address] [address] Ham Trimmer: Keon San MD NRBC Automated 0.0 per 100 WBC Normal 0.0 [facility] Comment on above: Performed By: #### U RC #### [address] [address] Ham Trimmer: Keon San MD Platelet mean volume (Bld) [Entitic vol] 9.7 fL Normal 8.1-13.5 [facility] Comment on above: Performed By: #### U RC #### [address] [address] Ham Trimmer: Keon San MD Platelets (Bld) [#/Vol] 494 10*3/uL High 138-453 [facility] Comment on above: Performed By: #### U RC #### [address] [address] Ham Trimmer: Keon San MD RBC (Bld) [#/Vol] 4.74 10*6/uL Normal 3.95-5.11 [facility] Comment on above: Performed By: #### U RC #### [address] [address] Ham Trimmer: Keon San MD RBC morphology finding Nom (Bld) ANISOCYTOSIS PRESENT Normal [facility] Comment on above: Performed By: #### U RC #### [address] [address] Ham Trimmer: Keon San MD WBC (Bld) [#/Vol] 13.1 10*3/uL High 3.5-11.3 [facility] Comment on above: Performed By: #### U RC #### [address] [address] Ham Trimmer: Keon San MD Cult,Urineon 05-18-2023 Cult,Urine Specimen Description .INDWELLING CATH URINE Culture NO GROWTH Report Status FINAL 05/18/2023 Normal [facility] Comment on above: Performed By: #### U #### [facility] [employer] [facility] [place] [address] Ham Trimmer: Keon San MD XR CHEST PORTABLEon 05-18-20 [...] by: Aleyda Alcocer MD Signed by: Aleyda Alcocer MD 05/18/23 Final result Normal [facility] XR CHEST PORTABLE EXAMINATION: ONE XRAY [...] Reginaldo Love MD 05/18/23 Final result Normal [facility] XR CHEST PORTABLE EXAMINATION: ONE XRAY [...] Dl Dangelo MD 05/18/23 Final result Normal [facility] Basic Metabolic Profon 05-17 Anion gap [Moles/Vol] 12 mmol/L Normal 9-17 [facility] Comment on above: Performed By: #### B KIM, CDP #### [address] [address] Ham Trimmer: Keon San MD Calcium [Mass/Vol] 9.1 mg/dL Normal 8.6-10.4 [facility] Comment on above: Performed By: #### B KIM, CDP #### [address] [address] Ham Trimmer: Keon San MD Chloride [Moles/Vol] 102 mmol/L Normal 98-107 [facility] Comment on above: Performed By: #### B KIM, CDP #### [facility] [employer] [address] [place] [address] Ham Trimmer: Keon San MD CO2 [Moles/Vol] 25 mmol/L Normal 20-31 [facility] Comment on above: Performed By: #### B KIM, CDP #### [facility] [employer] [address] [place] [address] Ham Trimmer: Keon San MD Creatinine [Mass/Vol] 0.4 mg/dL Low 0.5-0.9 [facility] Comment on above: Performed By: #### B KIM, CDP #### [address] [address] Ham Trimmer: Keon San MD GFR/1.73 sq M.predicted among non-blacks MDRD (S/P/Bld) [Vol rate/Area] mL/min/{1.73_m2} Normal >60 [facility] Comment on above: Result Comment: These [...] Performed By: #### B KIM, CDP #### [address] [address] Ham Trimmer: Keon San MD Glucose [Mass/Vol] 91 mg/dL Normal 70-99 [facility] Comment on above: Performed By: #### B KIM, CDP #### [address] [address] Ham Trimmer: Keon San MD Potassium [Moles/Vol] 3.7 mmol/L Normal 3.7-5.3 [facility] Comment on above: Performed By: #### B KIM, CDP #### [facility] [employer] [address] [place] [address] Ham Trimmer: Keon San MD Sodium [Moles/Vol] 139 mmol/L Normal 135-144 [facility] Comment on above: Performed By: #### B KIM, CDP #### [facility] [employer] [address] [place] [address] Ham Trimmer: Keon San MD Urea nitrogen [Mass/Vol] 6 mg/dL Normal 6-20 [facility] Comment on above: Performed By: #### B KIM, CDP #### [address] [address] Ham Trimmer: Keon San MD CBC with Diffon 05-17-2023 Abs. Basophil 0.06 k/uL Normal 0.00-0.20 [facility] Comment on above: Performed By: #### B MP, CDP #### [address] [address] Ham Trimmer: Keon San MD Abs.Imm.Granulocyte 0.04 k/uL Normal 0.00-0.30 [facility] Comment on above: Performed By: #### B MP, CDP #### [address] [address] Ham Trimmer: Keon San MD Abs.Neutrophil (Seg) 3.87 k/uL Normal 1.50-8.10 [facility] Comment on above: Performed By: #### B MP, CDP #### [address] [address] Ham Trimmer: Keon San MD Basophils/100 WBC (Bld) 1 % Normal 0-2 [facility] Comment on above: Performed By: #### B MP, CDP #### [address] [address] Ham Trimmer: Keon San MD Eosinophils (Bld) [#/Vol] 0.27 10*3/uL Normal 0.00-0.44 [facility] Comment on above: Performed By: #### B MP, CDP #### [address] [address] Ham Trimmer: Keon San MD Eosinophils/100 WBC (Bld) 4 % Normal 1-4 [facility] Comment on above: Performed By: #### B MP, CDP #### [address] [address] Ham Trimmer: Keon San MD Erythrocyte distribution width (RBC) [Ratio] 14.7 % High 11.8-14.4 [facility] Comment on above: Performed By: #### B KIM, CDP #### [address] [address] Ham Trimmer: Keon San MD Hematocrit (Bld) [Volume fraction] 39.2 % Normal 36.3-47.1 [facility] Comment on above: Performed By: #### B MP, CDP #### [address] [address] Ham Trimmer: Keon San MD Hemoglobin (Bld) [Mass/Vol] 12.2 g/dL Normal 11.9-15.1 [facility] Comment on above: Performed By: #### B KIM, CDP #### [address] [address] Ham Trimmer: Keon San MD Immature granulocytes/100 WBC (Bld) 1 % High 0 [facility] Comment on above: Performed By: #### B KIM, CDP #### [address] [address] Ham Trimmer: Keon San MD Lymphocytes (Bld) [#/Vol] 2.23 10*3/uL Normal 1.10-3.70 [facility] Comment on above: Performed By: #### B MP, CDP #### [address] [address] Ham Trimmer: Keon San MD Lymphocytes/100 WBC (Bld) 32 % Normal 24-43 [facility] Comment on above: Performed By: #### B MP, CDP #### [address] [address] Ham Trimmer: Keon San MD MCH (RBC) [Entitic mass] 26.5 pg Normal 25.2-33.5 [facility] Comment on above: Performed By: #### B MP, CDP #### [address] [address] Ham Trimmer: Keon San MD MCHC (RBC) [Mass/Vol] 31.1 g/dL Normal 28.4-34.8 [facility] Comment on above: Performed By: #### B MP, CDP #### [address] [address] Ham Trimmer: Keon San MD MCV (RBC) [Entitic vol] 85.2 fL Normal 82.6-102.9 [facility] Comment on above: Performed By: #### B MP, CDP #### [address] [address] Ham Trimmer: Keon San MD Monocytes (Bld) [#/Vol] 0.55 10*3/uL Normal 0.10-1.20 [facility] Comment on above: Performed By: #### B MP, CDP #### [address] [address] Ham Trimmer: Keon San MD Monocytes/100 WBC (Bld) 8 % Normal 3-12 [facility] Comment on above: Performed By: #### B MP, CDP #### [address] [address] Ham Trimmer: Keon San MD Neutrophil (Seg) 54 % Normal 36-65 [facility] Comment on above: Performed By: #### B MP, CDP #### [address] [address] Ham Trimmer: Keon San MD NRBC Automated 0.0 per 100 WBC Normal 0.0 [facility] Comment on above: Performed By: #### B MP, CDP #### [address] [address] Ham Trimmer: Keon San MD Platelet mean volume (Bld) [Entitic vol] 9.5 fL Normal 8.1-13.5 [facility] Comment on above: Performed By: #### B MP, CDP #### [address] [address] Ham Trimmer: Keon San MD Platelets (Bld) [#/Vol] 462 10*3/uL High 138-453 [facility] Comment on above: Performed By: #### B MP, CDP #### [address] [address] Ham Trimmer: Keon San MD RBC (Bld) [#/Vol] 4.60 10*6/uL Normal 3.95-5.11 [facility] Comment on above: Performed By: #### B MP, CDP #### [address] [address] Ham Trimmer: Keon San MD RBC morphology finding Nom (Bld) ANISOCYTOSIS PRESENT Normal [facility] Comment on above: Performed By: #### B MP, CDP #### [address] [address] Ham Trimmer: Keon San MD WBC (Bld) [#/Vol] 7.0 10*3/uL Normal 3.5-11.3 [facility] Comment on above: Performed By: #### B MP, CDP #### [address] [address] Ham Trimmer: Keon San MD Surgical Pathology Reporton 05-17-2023 Surgical Pathology Report (NOTE) Path Number: [id number] -- Diagnosis -- A. RIB, EXCISION: BONE WITH HARDWARE. GROSS ONLY Linsey Casillas M.D. 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 FOREIGN BODY REMOVAL kb Source of Specimen A: RIB FRAGMENT - GROSS ONLY Gross Description KAYLEEN KOVACS RIB FRAGMENT GROSS ONLY Received fresh is [...] Gross exam only. tm SM/kb2:05/17/2023 Processing Lab: [address] [address] Interpretation Performed at [address] [id number] SURGICAL PATHOLOGY CONSULTATION Patient Name: KAYLENE KOVACS [facility] Rec: [id number] [facility] [employer] [facility] ANATOMIC PATHOLOGY [address] [place] [phone] Normal [facility] XR CHEST PORTABLEon 05-17-20 XR CHEST [...] Andrew Sol MD 05/17/23 Final result Normal [facility] Basic Metabolic Profon 05-16 Anion gap [Moles/Vol] 10 mmol/L Normal 9-17 [facility] Comment on above: Performed By: #### B MP, CDP #### [facility] [employer] [address] [place], [place] [address] Ham Trimmer: Keon San MD Calcium [Mass/Vol] 9.2 mg/dL Normal 8.6-10.4 [facility] Comment on above: Performed By: #### B KIM, CDP #### [address] [address] Ham Trimmer: Keon San MD Chloride [Moles/Vol] 103 mmol/L Normal 98-107 [facility] Comment on above: Performed By: #### B KIM, CDP #### [address] [address] Ham Trimmer: Keon San MD CO2 [Moles/Vol] 25 mmol/L Normal 20-31 [facility] Comment on above: Performed By: #### B KIM, CDP #### [address] [address] Ham Trimmer: Keon San MD Creatinine [Mass/Vol] 0.6 mg/dL Normal 0.5-0.9 [facility] Comment on above: Performed By: #### B KIM, CDP #### [address] [address] Ham Trimmer: Keon San MD GFR/1.73 sq M.predicted among non-blacks MDRD (S/P/Bld) [Vol rate/Area] mL/min/{1.73_m2} Normal >60 [facility] Comment on above: Result Comment: These [...] Performed By: #### B KIM, CDP #### [address] [address] Ham Trimmer: Keon San MD Glucose [Mass/Vol] 81 mg/dL Normal 70-99 [facility] Comment on above: Performed By: #### B KIM, CDP #### [address] [address] Ham Trimmer: Keon San MD Potassium [Moles/Vol] 4.1 mmol/L Normal 3.7-5.3 [facility] Comment on above: Performed By: #### B KIM, CDP #### [facility] [employer] [address] [place] [address] Ham Trimmer: Keon San MD Sodium [Moles/Vol] 138 mmol/L Normal 135-144 [facility] Comment on above: Performed By: #### B KIM, CDP #### [address] [address] Ham Trimmer: Keon San MD Urea nitrogen [Mass/Vol] 5 mg/dL Low 6-20 [facility] Comment on above: Performed By: #### B KIM, CDP #### [address] [address] Ham Trimmer: Keon San MD CBC with Diffon 05-16-2023 Abs. Basophil 0.07 k/uL Normal 0.00-0.20 [facility] Comment on above: Performed By: #### B KIM, CDP #### [facility] [employer] [address] [place] [address] Ham Trimmer: Keon San MD Abs.Imm.Granulocyte 0.04 k/uL Normal 0.00-0.30 [facility] Comment on above: Performed By: #### B KIM, CDP #### [address] [address] Ham Trimmer: Keon San MD Abs.Neutrophil (Seg) 3.38 k/uL Normal 1.50-8.10 [facility] Comment on above: Performed By: #### B MP, CDP #### [facility] [employer] [address] [place] [address] Ham Trimmer: Keon San MD Basophils/100 WBC (Bld) 1 % Normal 0-2 [facility] Comment on above: Performed By: #### B MP, CDP #### [facility] [employer] [address] [place] [address] Ham Trimmer: Keon San MD Eosinophils (Bld) [#/Vol] 0.30 10*3/uL Normal 0.00-0.44 [facility] Comment on above: Performed By: #### B MP, CDP #### [facility] [employer] [address] [place] [address] Ham Trimmer: Keon San MD Eosinophils/100 WBC (Bld) 5 % High 1-4 [facility] Comment on above: Performed By: #### B MP, CDP #### [facility] [employer] [address] [place] [address] Ham Trimmer: Keon San MD Erythrocyte distribution width (RBC) [Ratio] 15.0 % High 11.8-14.4 [facility] Comment on above: Performed By: #### B MP, CDP #### [facility] [employer] [address] [place] [address] Ham Trimmer: Keon San MD Hematocrit (Bld) [Volume fraction] 39.5 % Normal 36.3-47.1 [facility] Comment on above: Performed By: #### B MP, CDP #### [facility] [employer] [address] [place] [address] Ham Trimmer: Keon San MD Hemoglobin (Bld) [Mass/Vol] 12.1 g/dL Normal 11.9-15.1 [facility] Comment on above: Performed By: #### B MP, CDP #### [address] [address] Ham Trimmer: Keon San MD Immature granulocytes/100 WBC (Bld) 1 % High 0 [facility] Comment on above: Performed By: #### B MP, CDP #### [address] [address] Ham Trimmer: Keon San MD Lymphocytes (Bld) [#/Vol] 2.14 10*3/uL Normal 1.10-3.70 [facility] Comment on above: Performed By: #### B MP, CDP #### [address] [address] Ham Trimmer: Keon San MD Lymphocytes/100 WBC (Bld) 33 % Normal 24-43 [facility] Comment on above: Performed By: #### B KIM, CDP #### [address] [address] Ham Trimmer: Keon San MD MCH (RBC) [Entitic mass] 26.8 pg Normal 25.2-33.5 [facility] Comment on above: Performed By: #### B MP, CDP #### [address] [address] Ham Trimmer: Keon San MD MCHC (RBC) [Mass/Vol] 30.6 g/dL Normal 28.4-34.8 [facility] Comment on above: Performed By: #### B MP, CDP #### [address] [address] Ham Trimmer: Keon San MD MCV (RBC) [Entitic vol] 87.4 fL Normal 82.6-102.9 [facility] Comment on above: Performed By: #### B MP, CDP #### [address] [address] Ham Trimmer: Keon San MD Monocytes (Bld) [#/Vol] 0.64 10*3/uL Normal 0.10-1.20 [facility] Comment on above: Performed By: #### B MP, CDP #### [address] [address] Ham Trimmer: Keon San MD Monocytes/100 WBC (Bld) 10 % Normal 3-12 [facility] Comment on above: Performed By: #### B MP, CDP #### [address] [address] Ham Trimmer: Keon San MD Neutrophil (Seg) 50 % Normal 36-65 [facility] Comment on above: Performed By: #### B KIM, CDP #### [address] [address] Ham Trimmer: Keon San MD NRBC Automated 0.0 per 100 WBC Normal 0.0 [facility] Comment on above: Performed By: #### B KIM, CDP #### [address] [address] Ham Trimmer: Keon San MD Platelet mean volume (Bld) [Entitic vol] 9.5 fL Normal 8.1-13.5 [facility] Comment on above: Performed By: #### B KIM, CDP #### [address] [address] Ham Trimmer: Keon San MD Platelets (Bld) [#/Vol] 472 10*3/uL High 138-453 [facility] Comment on above: Performed By: #### B MP, CDP #### [address] [address] Ham Trimmer: Keon San MD RBC (Bld) [#/Vol] 4.52 10*6/uL Normal 3.95-5.11 [facility] Comment on above: Performed By: #### B KIM, CDP #### [facility] [employer] [address] [place] [address] Ham Trimmer: Keon San MD RBC morphology finding Nom (Bld) ANISOCYTOSIS PRESENT Normal [facility] Comment on above: Performed By: #### B KIM, CDP #### [address] [address] Ham Trimmer: Keon San MD WBC (Bld) [#/Vol] 6.6 10*3/uL Normal 3.5-11.3 [facility] Comment on above: Performed By: #### B KIM, CDP #### [facility] [employer] [address] [place] [address] Ham Trimmer: Keon San MD HCG, ,Urineon 05-16 Beta HCG ( test) Ql (U) Negative Normal NEG [facility] Comment on above: Result Comment: Spec imens with hCG levels near the threshold of the test (25 mIU/mL) may give a negative or indeterminate result. In such cases, another test should be performed with a new specimen in 48-72 hours. If early is suspected clinically in this setting, correlation with quantitative serum b-hCG level is suggested. Performed By: #### B KIM, CDP #### [address] [address] Ham Trimmer: Keon San MD Type + Screenon 05-16-2023 Type + Screen Sample Expiration 05/19/2023,2359 Arm Band Number [id number] ABO/Rh(D) O POSITIVE Antibody Screen NEGATIVE Normal [facility] Comment on above: Performed By: #### B KIM, CDP #### [facility] [employer] [address] [place] [address] Ham Trimmer: Keon San MD XR ABDOMEN (KUB) (SINGLE [...] Micheal Haas MD 05/16/23 Final result Normal [facility] XR HIP LEFT (2-3 VIEWS)on XR [...] Micheal Haas MD 05/16/23 Final result Normal [facility] CT CHEST ABDOMEN PELVIS WO [facility] 05-15-2023 CT CHEST ABDOMEN PELVIS WO CONTRAST [...] Andrew Sol MD 05/15/23 Final result Normal [facility] XR ABDOMEN (KUB) (SINGLE AP VIEW)on 05-15-2023 XR ABDOMEN (KUB) (SINGLE AP VIEW) EXAMINATION: ONE SUPINE XRAY VIEW(S) OF THE ABDOMEN 05/14/2023 11:22 pm COMPARISON: None. HISTORY: ORDERING SYSTEM PROVIDED HISTORY: L sided lower quadrant pain TECHNOLOGIST PROVIDED HISTORY: L sided lower quadrant pain Reason for Exam: photostatic copy maker to left lower abdoman supine port FINDINGS: Thoracolumbar hardware. Mild levoconvex scoliosis. Gas-filled loops of small bowel. Sideplate and screws transfix the 10th rib on the left. There appears to be a displaced fragment. IMPRESSION: Ileus. ORIF displaced rib fracture fragment as above. Interpreted by: Storm Anderson MD Signed by: Storm Anderson MD 05/15/23 Final result Normal [facility] XR CHEST PORTABLEon 05-13-20 XR CHEST [...] Earnest Waller MD 05/13/23 Final result Normal [facility] US CHEST INCLUDING MEDIASTIN UMon 05-12-2023 [...] Reginaldo Love MD 05/12/23 Final result Normal [facility] CBCon 05-11-2023 Erythrocyte distribution width (RBC) [Ratio] 14.5 % High 11.8-14.4 [facility] Comment on above: Performed By: #### L D, CBC, TP, XYEL, PT #### [employer] [address] [place], [place] [id number] Ham Trimmer: Keon San MD Hematocrit (Bld) [Volume fraction] 37.4 % Normal 36.3-47.1 [facility] Comment on above: Performed By: #### L D, CBC, TP, XYEL, PT #### [facility] [address] [place] [address] Ham Trimmer: Keon San MD Hemoglobin (Bld) [Mass/Vol] 11.6 g/dL Low 11.9-15.1 [facility] Comment on above: Performed By: #### L D, CBC, TP, XYEL, PT #### [address] [address] Ham Trimmer: Keon San MD MCH (RBC) [Entitic mass] 26.7 pg Normal 25.2-33.5 [facility] Comment on above: Performed By: #### L D, CBC, TP, XYEL, PT #### [address] [address] Ham Trimmer: Keon San MD MCHC (RBC) [Mass/Vol] 31.0 g/dL Normal 28.4-34.8 [facility] Comment on above: Performed By: #### L D, CBC, TP, XYEL, PT #### [facility] [employer] [address] [place] [address] Ham Trimmer: Keon San MD MCV (RBC) [Entitic vol] 86.2 fL Normal 82.6-102.9 [facility] Comment on above: Performed By: #### L D, CBC, TP, XYEL, PT #### [address] [address] Ham Trimmer: Keon San MD NRBC Automated 0.0 per 100 WBC Normal 0.0 [facility] Comment on above: Performed By: #### L D, CBC, TP, XYEL, PT #### [place] [address] Ham Trimmer: Keon San MD Platelet mean volume (Bld) [Entitic vol] 9.6 fL Normal 8.1-13.5 [facility] Comment on above: Performed By: #### L D, CBC, TP, XYEL, PT #### [facility] [address] [place] [address] Ham Trimmer: Keon San MD Platelets (Bld) [#/Vol] 374 10*3/uL Normal 138-453 [facility] Comment on above: Performed By: #### L D, CBC, TP, XYEL, PT #### [facility] [place] [address] Ham Trimmer: Keon San MD RBC (Bld) [#/Vol] 4.34 10*6/uL Normal 3.95-5.11 [facility] Comment on above: Performed By: #### L D, CBC, TP, XYEL, PT #### [facility] [address] [place] [address] Ham Trimmer: Keon San MD WBC (Bld) [#/Vol] 7.0 10*3/uL Normal 3.5-11.3 [facility] Comment on above: Performed By: #### L D, CBC, TP, XYEL, PT #### [facility] [address] [place] [address] Ham Trimmer: Keon San MD CT CHEST PULMONARY EMBOLISM [...] Storm Anderson MD 05/10/23 Final result Normal [facility] [facility] Extra Yellow Tubeon 05-11-20 Extra Yellow Tube Normal [facility] Comment on above: Performed By: #### L D, CBC, TP, XYEL, PT #### [facility] [address] [place] [address] Ham Trimmer: Keon San MD Lactate Dehydrogenaseon LDH [Catalytic activity/Vol] 190 U/L Normal 135-214 [facility] Comment on above: Performed By: #### L D, CBC, TP, XYEL, PT #### [facility] [address], [place] [phone] Ham Trimmer: Keon San MD MRI LUMBAR SPINE WO [...] Navdeep Garzon MD 05/11/23 Final result Normal [facility] PTon 05-11-2023 INR Coag (PPP) [Relative time] 1.0 {INR} Normal [facility] Comment on above: Result Comment: Therapeutic Range: Moderate Anticoagulant Intensity: INR = 2.0-3.0 High Anticoagulant Intensity: INR = 2.5-3.5 Performed By: #### L D, CBC, TP, XYEL, PT #### [address] [address] Ham Trimmer: Keon San MD PT Coag (PPP) [Time] 12.9 s Normal 11.7-14.9 [facility] Comment on above: Performed By: #### L Dora, CBC, TP, XYEL, PT #### [facility] [employer] [address] [place] [address] Ham Trimmer: Keon San MD Protein, Totalon 05-11-2023 Protein [Mass/Vol] 6.8 g/dL Normal 6.4-8.3 [facility] Comment on above: Performed By: #### YENI SPARKS #### [facility] [address] [place] [address] Ham Trimmer: Keon San MD Basic Metabolic Profon 05-10 Anion gap [Moles/Vol] 12 mmol/L Normal 9-17 [facility] Comment on above: Performed By: #### YENI SPARKS #### [facility] [employer] [address] [place] [address] Ham Trimmer: Keon San MD Calcium [Mass/Vol] 8.7 mg/dL Normal 8.6-10.4 [facility] Comment on above: Performed By: #### YENI SPARKS #### [facility] [address] [place] [address] Ham Trimmer: Keon San MD Chloride [Moles/Vol] 102 mmol/L Normal 98-107 [facility] Comment on above: Performed By: #### Severo ZARATE BMP #### [address] [address] Ham Trimmer: Keon San MD CO2 [Moles/Vol] 25 mmol/L Normal 20-31 [facility] Comment on above: Performed By: #### YENI SPARKS #### [facility] [employer] [address] [place] [address] Ham Trimmer: Keon San MD Creatinine [Mass/Vol] 0.4 mg/dL Low 0.5-0.9 [facility] Comment on above: Performed By: #### Severo ZARATE BMP #### [address] [address] Ham Trimmer: Keon San MD GFR/1.73 sq M.predicted among non-blacks MDRD (S/P/Bld) [Vol rate/Area] mL/min/{1.73_m2} Normal >60 [facility] Comment on above: Result Comment: These [...] Performed By: #### Severo ZARATE BMP #### [address] [address] Ham Trimmer: Keon San MD Glucose [Mass/Vol] 81 mg/dL Normal 70-99 [facility] Comment on above: Performed By: #### Severo ZARATE BMP #### [facility] [address] [place] [address] Ham Trimmer: Keon San MD Potassium [Moles/Vol] 3.4 mmol/L Low 3.7-5.3 [facility] Comment on above: Performed By: #### YENI SPARKS #### [facility] [employer] [address] [place] [address] Ham Trimmer: Keon San MD Sodium [Moles/Vol] 139 mmol/L Normal 135-144 [facility] Comment on above: Performed By: #### YENI SPARKS #### [facility] [employer] [address] [place] [address] Ham Trimmer: Keon San MD Urea nitrogen [Mass/Vol] 4 mg/dL Low 6-20 [facility] Comment on above: Performed By: #### YENI SPARKS #### [facility] [employer] [address] [place] [address] Ham Trimmer: Keon San MD CBCon 05-10-2023 Erythrocyte distribution width (RBC) [Ratio] 14.4 % Normal 11.8-14.4 [facility] Comment on above: Performed By: #### B KIM, CDP #### [facility] [employer] [address] [place] [address] Ham Trimmer: Keon San MD Hematocrit (Bld) [Volume fraction] 36.0 % Low 36.3-47.1 [facility] Comment on above: Performed By: #### B KIM, CDP #### [facility] [employer] [address] [place] [address] Ham Trimmer: Keon San MD Hemoglobin (Bld) [Mass/Vol] 11.0 g/dL Low 11.9-15.1 [facility] Comment on above: Performed By: #### B KIM, CDP #### [facility] [address] [place] [address] Ham Trimmer: Keon San MD MCH (RBC) [Entitic mass] 26.6 pg Normal 25.2-33.5 [facility] Comment on above: Performed By: #### B MP, CDP #### [address] [address] Ham Trimmer: Keon San MD MCHC (RBC) [Mass/Vol] 30.6 g/dL Normal 28.4-34.8 [facility] Comment on above: Performed By: #### B MP, CDP #### [address] [address] Ham Trimmer: Keon San MD MCV (RBC) [Entitic vol] 87.0 fL Normal 82.6-102.9 [facility] Comment on above: Performed By: #### B MP, CDP #### [address] [address] Ham Trimmer: Keon San MD NRBC Automated 0.0 per 100 WBC Normal 0.0 [facility] Comment on above: Performed By: #### B MP, CDP #### [address] [address] Ham Trimmer: Keon San MD Platelet mean volume (Bld) [Entitic vol] 10.1 fL Normal 8.1-13.5 [facility] Comment on above: Performed By: #### B MP, CDP #### [address] [address] Ham Trimmer: Keon San MD Platelets (Bld) [#/Vol] 344 10*3/uL Normal 138-453 [facility] Comment on above: Performed By: #### B MP, CDP #### [address] [address] Ham Trimmer: Keon San MD RBC (Bld) [#/Vol] 4.14 10*6/uL Normal 3.95-5.11 [facility] Comment on above: Performed By: #### B MP, CDP #### [facility] [address] [place] [address] Ham Trimmer: Keon San MD WBC (Bld) [#/Vol] 6.3 10*3/uL Normal 3.5-11.3 [facility] Comment on above: Performed By: #### B MP, CDP #### [facility] [address], [place] [phone] Ham Trimmer: Keon San MD Troponinon 05-10-2023 Troponin, High Sens 12 ng/L Normal 0-14 [facility] Comment on above: Result Comment: High Sensitivity Troponin values cannot be compared with other Troponin methodologies. Performed By: #### T ELLIOT, BMP #### [facility] [address], [place] [phone] Ham Trimmer: Keon San MD XR CHEST PORTABLEon 05-10-20 [...] Storm Anderson MD 05/10/23 Final result Normal [facility] XR LUMBAR SPINE (2-3 VIEWS)o n [...] Navdeep Garzon MD 05/10/23 Final result Normal [facility] CT LUMBAR SPINE WO CONTRASTo n [...] Rosalino Becerra MD 05/07/23 Final result Normal [facility] Comp Metabolic Profon 2022 Albumin [Mass/Vol] 3.1 g/dL Low 3.5-5.2 [facility] Comment on above: Performed By: #### U RC #### [address] [address] Ham Trimmer: Keon San MD Albumin/Glob Ratio 1.0 Normal 1.0-2.5 [facility] Comment on above: Performed By: #### U RC #### [address] [address] Ham Trimmer: Keon San MD Alkaline Phos 57 U/L Normal 35-104 [facility] Comment on above: Performed By: #### U RC #### [address] [address] Ham Trimmer: Keon San MD ALT [Catalytic activity/Vol] 12 U/L Normal 5-33 [facility] Comment on above: Performed By: #### U RC #### [address] [address] Ham Trimmer: Keon San MD Anion gap [Moles/Vol] 12 mmol/L Normal 9-17 [facility] Comment on above: Performed By: #### U RC #### [address] [address] Ham Trimmer: Keon San MD AST [Catalytic activity/Vol] 26 U/L Normal <32 [facility] Comment on above: Performed By: #### U RC #### [address] [address] Ham Trimmer: Keon San MD Bilirubin [Mass/Vol] 0.3 mg/dL Normal 0.3-1.2 [facility] Comment on above: Performed By: #### U RC #### [address] [address] Ham Trimmer: Keon San MD Calcium [Mass/Vol] 8.2 mg/dL Low 8.6-10.4 [facility] Comment on above: Performed By: #### U RC #### [facility] [address] [place] [address] Ham Trimmer: Keon San MD Chloride [Moles/Vol] 108 mmol/L High 98-107 [facility] Comment on above: Performed By: #### U RC #### [address] [address] Ham Trimmer: Keon San MD CO2 [Moles/Vol] 23 mmol/L Normal 20-31 [facility] Comment on above: Performed By: #### U RC #### [address] [address] Ham Trimmer: Keon San MD Creatinine [Mass/Vol] 0.4 mg/dL Low 0.5-0.9 [facility] Comment on above: Performed By: #### U RC #### [address] [address] Ham Trimmer: Keon San MD GFR/1.73 sq M.predicted among non-blacks MDRD (S/P/Bld) [Vol rate/Area] mL/min/{1.73_m2} Normal >60 [facility] Comment on above: Result Comment: These [...] secretion. Performed By: #### U RC #### [address] [address] Ham Trimmer: Keon San MD Glucose [Mass/Vol] 86 mg/dL Normal 70-99 [facility] Comment on above: Performed By: #### U RC #### [address] [address] Ham Trimmer: Keon San MD Potassium [Moles/Vol] 4.1 mmol/L Normal 3.7-5.3 [facility] Comment on above: Performed By: #### U RC #### [address] [address] Ham Trimmer: Keon San MD Protein [Mass/Vol] 6.2 g/dL Low 6.4-8.3 [facility] Comment on above: Performed By: #### U RC #### [address] [address] Ham Trimmer: Keon San MD Sodium [Moles/Vol] 143 mmol/L Normal 135-144 [facility] Comment on above: Performed By: #### U RC #### [address] [address] Ham Trimmer: Keon San MD Urea nitrogen [Mass/Vol] 4 mg/dL Low 6-20 [facility] Comment on above: Performed By: #### U RC #### [address] [address] Ham Trimmer: Keon San MD CBCon 05-06-2023 Erythrocyte distribution width (RBC) [Ratio] 14.4 % Normal 11.8-14.4 [facility] Comment on above: Performed By: #### U RC #### [address] [address] Ham Trimmer: Keon San MD Hematocrit (Bld) [Volume fraction] 37.9 % Normal 36.3-47.1 [facility] Comment on above: Performed By: #### U RC #### [address] [address] Ham Trimmer: Keon San MD Hemoglobin (Bld) [Mass/Vol] 11.8 g/dL Low 11.9-15.1 [facility] Comment on above: Performed By: #### U RC #### [address] [address] Ham Trimmer: Keon San MD MCH (RBC) [Entitic mass] 26.9 pg Normal 25.2-33.5 [facility] Comment on above: Performed By: #### U RC #### [address] [address] Ham Trimmer: Keon San MD MCHC (RBC) [Mass/Vol] 31.1 g/dL Normal 28.4-34.8 [facility] Comment on above: Performed By: #### U RC #### [address] [address] Ham Trimmer: Keon San MD MCV (RBC) [Entitic vol] 86.5 fL Normal 82.6-102.9 [facility] Comment on above: Performed By: #### U RC #### [address] [address] Ham Trimmer: Keon San MD NRBC Automated 0.0 per 100 WBC Normal 0.0 [facility] Comment on above: Performed By: #### U RC #### [address] [address] Ham Trimmer: Keon San MD Platelet mean volume (Bld) [Entitic vol] 10.5 fL Normal 8.1-13.5 [facility] Comment on above: Performed By: #### U RC #### [address] [address] Ham Trimmer: Keon San MD Platelets (Bld) [#/Vol] 290 10*3/uL Normal 138-453 [facility] Comment on above: Performed By: #### U RC #### [address] [address] Ham Trimmer: Keon San MD RBC (Bld) [#/Vol] 4.38 10*6/uL Normal 3.95-5.11 [facility] Comment on above: Performed By: #### U RC #### [address] [address] Ham Trimmer: Keon San MD WBC (Bld) [#/Vol] 11.0 10*3/uL Normal 3.5-11.3 [facility] Comment on above: Performed By: #### U RC #### [address] [address] Ham Trimmer: Keon San MD Cult,Urineon 05-06-2023 Cult,Urine Specimen Description .INDWELLING CATH URINE Culture NO GROWTH Report Status FINAL 05/06/2023 Normal [facility] Comment on above: Performed By: #### U RC #### [address] [address] Ham Trimmer: Keon San MD Extra Green Tubeon Extra Green Tube Normal [facility] Comment on above: Performed By: #### U RC #### [address] [address] Ham Trimmer: Keon San MD FLUORO FOR SURGICAL PROCEDUR ESon 05-05-2023 FLUORO FOR SURGICAL PROCEDURES Radiology exam is complete. No Radiologist dictation. Please follow up with ordering provider. Final result Normal [facility] APTTon 04-24-2023 aPTT Coag (Bld) [Time] 29.4 s Normal 23.0-36.5 [facility] Comment on above: Result Comment: IV Heparin Therapy Range: 66.0-92.0 sec Performed By: #### U RC #### [address] [address] Ham Trimmer: Keon San MD BUN + Creatinineon Creatinine [Mass/Vol] 0.5 mg/dL Normal 0.5-0.9 [facility] Comment on above: Performed By: #### U RC #### [address] [address] Ham Trimmer: Keon San MD GFR/1.73 sq M.predicted among non-blacks MDRD (S/P/Bld) [Vol rate/Area] mL/min/{1.73_m2} Normal >60 [facility] Comment on above: Result Comment: These [...] secretion. Performed By: #### U RC #### [address] [address] Ham Trimmer: Keon San MD Urea nitrogen [Mass/Vol] 7 mg/dL Normal 6-20 [facility] Comment on above: Performed By: #### U RC #### [address] [address] Ham Trimmer: Keon San MD CBCon 04-24-2023 Erythrocyte distribution width (RBC) [Ratio] 14.7 % High 11.8-14.4 [facility] Comment on above: Performed By: #### U RC #### [address] [address] Ham Trimmer: Keon San MD Hematocrit (Bld) [Volume fraction] 45.6 % Normal 36.3-47.1 [facility] Comment on above: Performed By: #### U RC #### [address] [address] Ham Trimmer: Keon San MD Hemoglobin (Bld) [Mass/Vol] 14.5 g/dL Normal 11.9-15.1 [facility] Comment on above: Performed By: #### U RC #### [address] [address] Ham Trimmer: Keon San MD MCH (RBC) [Entitic mass] 26.6 pg Normal 25.2-33.5 [facility] Comment on above: Performed By: #### U RC #### [address] [address] Ham Trimmer: Keon San MD MCHC (RBC) [Mass/Vol] 31.8 g/dL Normal 28.4-34.8 [facility] Comment on above: Performed By: #### U RC #### [address] [address] Ham Trimmer: Keon San MD MCV (RBC) [Entitic vol] 83.5 fL Normal 82.6-102.9 [facility] Comment on above: Performed By: #### U RC #### [address] [address] Ham Trimmer: Keon San MD NRBC Automated 0.0 per 100 WBC Normal 0.0 [facility] Comment on above: Performed By: #### U RC #### [address] [address] Ham Trimmer: Keon San MD Platelet mean volume (Bld) [Entitic vol] 10.5 fL Normal 8.1-13.5 [facility] Comment on above: Performed By: #### U RC #### [address] [address] Ham Trimmer: Keon San MD Platelets (Bld) [#/Vol] 332 10*3/uL Normal 138-453 [facility] Comment on above: Performed By: #### U RC #### [address] [address] Ham Trimmer: Keon San MD RBC (Bld) [#/Vol] 5.46 10*6/uL High 3.95-5.11 [facility] Comment on above: Performed By: #### U RC #### [address] [address] Ham Trimmer: Keon San MD WBC (Bld) [#/Vol] 9.0 10*3/uL Normal 3.5-11.3 [facility] Comment on above: Performed By: #### U RC #### [address] [address] Ham Trimmer: Keon San MD Electrolyteson 04-24-2023 Anion gap [Moles/Vol] 10 mmol/L Normal 9-17 [facility] Comment on above: Performed By: #### U RC #### [address] [address] Ham Trimmer: Keon San MD Chloride [Moles/Vol] 104 mmol/L Normal 98-107 [facility] Comment on above: Performed By: #### U RC #### [address] [address] Ham Trimmer: Keon San MD CO2 [Moles/Vol] 25 mmol/L Normal 20-31 [facility] Comment on above: Performed By: #### U RC #### [address] [address] Ham Trimmer: Keon San MD Potassium [Moles/Vol] 4.6 mmol/L Normal 3.7-5.3 [facility] Comment on above: Performed By: #### U RC #### [address] [phone] Ham Trimmer: Keon San MD Sodium [Moles/Vol] 139 mmol/L Normal 135-144 [facility] Comment on above: Performed By: #### U RC #### [address] [phone] Ham Trimmer: Keon San MD Formson 04-24-2023 Forms [id number] 0TIFF Normal [facility] Glucoseon 04-24-2023 Glucose [Mass/Vol] 87 mg/dL Normal 70-99 [facility] Comment on above: Performed By: #### U RC #### [address] [address] Ham Trimmer: Keon San MD PTon 04-24-2023 INR Coag (PPP) [Relative time] 1.0 {INR} Normal [facility] Comment on above: Result Comment: Therapeutic Range: Moderate Anticoagulant Intensity: INR = 2.0-3.0 High Anticoagulant Intensity: INR = 2.5-3.5 Performed By: #### U RC #### [address] [address] Ham Trimmer: Keon San MD PT Coag (PPP) [Time] 12.9 s Normal 11.7-14.9 [facility] Comment on above: Performed By: #### U RC #### [address] [address] Ham Trimmer: Keon San MD Type + Screenon 04-24-2023 Type + Screen Sample Expiration 05/08/2023,2359 Arm Band Number [id number] ABO/Rh(D) O POSITIVE Antibody Screen NEGATIVE Normal [facility] Comment on above: Performed By: #### T ELLIOT, [facility] #### [employer] [place] [id number] Ham Trimmer: Keon San MD Auth for Release of Medical Recordson 03-02-2023 Auth for Release of Medical Records [id number] 0CD:127 Normal [facility] Transfer Inon 03-02-2023 Transfer In [id number] 0CD:127 Normal [facility] Ambulatory Visit Summaryon 0 03-01-2023 Ambulatory Visit Summary MARCO KOVACSNDRIA Esvin :1995 Visit Date:03/01/2023 Ambulatory Visit Instructions Your [...] 9:00 AM EST With: Earline Koroma Where: [facility] Medicine [facility] Family Medicine Office/Clini c Noteon 03-01-2023 Family Medicine Office/Clinic Note HPI Staff Chani is a 27 year old female presenting to establish care Establish Care: History: Any previous diagnosis: Depression, seizures, paralyzed waist down, T12/L1 compression fracture with spinal fusion, L1 busrt History of seeing any specialist: Dr Spencer [facility], Vascular surgeon, Neurologist Kassy CUADRA Last provider: Amber Rodriguez Any recent labs: [facility] Maintenance UTD: Colonoscopy: no Mammogram: [...] TID, # 90 tab(s), Refills(s) 5, [id number], 175.3, cm, 03/01/23 9:34:00 EDT, Height/Length Dosing, 113.3, kg, 03/01/23 9:34:00 EDT, Weight Dosing busPIRone, 5 mg = 1 tab(s), Oral, TID, # 270 tab(s), Refills(s) 5, Pharmacy: [facility]/pharmacy #[id number], 175.3, cm, 03/01/23 9:34:00 EDT, Height/Length Dosing, 113.3, kg, 03/01/23 9:34:00 EDT, Weight Dosing escitalopram, 20 mg = 1 tab(s), Oral, Daily, # 90 tab(s), Refills(s) 5, [id number], 175.3, cm, 03/01/23 9:34:00 EDT, Height/Length Dosing, 113.3, kg, 03/01/23 9:34:00 EDT, Weight Dosing ibuprofen, See Instructions, TAKE 1 TABLET BY MOUTH IN THE MORNING, 1 AT NOON, 1 IN THE EVENING AND 1 BEFORE BEDTIME, # 120 tab(s), Refills(s) 1, Pharmacy: [facility]/pharmacy #[id number], 175.3, cm, 03/01/23 9:34:00 EDT, Height/Length Dosing, 113.3, kg, 03/01/23 9:34:00 EDT... oxybutynin, 5 mg = 1 tab(s), Oral, Daily, # 90 tab(s), Refills(s) 1, Pharmacy: [facility]/pharmacy #[id number], 175.3, cm, 03/01/23 9:34:00 EDT, Height/Length Dosing, 113.3, kg, 03/01/23 9:34:00 EDT, Weight Dosing pregabalin, 300 mg = 1 cap(s), Oral, BID, # 60 cap(s), Refills(s) 0, [id number], 175.3, cm, 03/01/23 9:34:00 EDT, Height/Length Dosing, 113.3, kg, 03/01/23 9:34:00 EDT, Weight Dosing quetiapine, 25 mg = 1 tab(s), Oral, Daily, # 90 tab(s), Refills(s) 1, [id number], 175.3, cm, 03/01/23 9:34:00 EDT, Height/Length Dosing, 113.3, kg, 03/01/23 9:34:00 EDT, Weight Dosing quetiapine, 50 mg = 1 tab(s), Oral, Daily, # 90 tab(s), Refills(s) 1, [id number], 175.3, cm, 03/01/23 9:34:00 EDT, Height/Length Dosing, 113.3, kg, 03/01/23 9:34:00 EDT, Weight Dosing tizanidine, See Instructions, 1 tab(s) Oral every 6 hours as needed, # 9 tab(s), Refills(s) 0, [id number], 175.3, cm, 03/01/23 9:34:00 EDT, [...] 1 tab(s), O (more content not included)... [facility] Comment on above: Result Comment: Elec tronically Signed By: Earline Koroma\.jean\Date and Time Signed: 03/01/23 11:31 EDT XR LUMBAR SPINE (2-3 VIEWS)o n 01-15-2023 XR LUMBAR SPINE (2-3 VIEWS) EXAMINATION: XRAY VIEWS OF THE LUMBAR SPINE 01/11/2023 11:06 am COMPARISON: CT lumbar spine of 19 December 2022 HISTORY: ORDERING SYSTEM PROVIDED HISTORY: Closed compression fracture of body of L1 vertebra ([facility]) TECHNOLOGIST PROVIDED HISTORY: Include T11 [...] Shikha Ngo MD 01/15/23 Final result Normal [facility] CBC W Auto Differential pane l (Bld)on 07-28-2022 Basophils (Bld) [#/Vol] 0.03 10*3/uL <0.11 k/uL [facility] Basophils/100 WBC (Bld) 0.5 % [facility] Differential cell count method Nom (Bld) Auto [facility] Eosinophils (Bld) [#/Vol] 0.27 10*3/uL <0.46 k/uL [facility] Eosinophils/100 WBC (Bld) 4.2 % [facility] Erythrocyte distribution width (RBC) [Ratio] 13.5 % 11.5 - 15.0 % [facility] Hematocrit (Bld) [Volume fraction] 37.9 % 36.0 - 46.0 % [facility] Hemoglobin (Bld) [Mass/Vol] 11.4 g/dL Low 11.5 - 15.5 g/dL [facility] Immature granulocytes (Bld) [#/Vol] <0.10 k/uL [facility] Immature granulocytes/100 WBC (Bld) 0.3 % [facility] Lymphocytes (Bld) [#/Vol] 1.91 10*3/uL 1.00 - 4.00 k/uL [facility] Lymphocytes/100 WBC (Bld) 29.7 % [facility] MCH (RBC) [Entitic mass] 25.3 pg Low 26.0 - 34.0 pg [facility] MCHC (RBC) [Mass/Vol] 30.1 g/dL Low 30.5 - 36.0 g/dL [facility] MCV (RBC) [Entitic vol] 84.0 fL 80.0 - 100.0 fL [facility] Monocytes (Bld) [#/Vol] 0.46 10*3/uL <0.87 k/uL [facility] Monocytes/100 WBC (Bld) 7.2 % [facility] Neutrophils (Bld) [#/Vol] 3.74 10*3/uL 1.45 - 7.50 k/uL [facility] Neutrophils/100 WBC (Bld) 58.1 % [facility] Nucleated RBC (Bld) [#/Vol] <0.01 k/uL [facility] Nucleated RBC/100 WBC (Bld) [Ratio] 0.0 /100 WBC [facility] Platelet mean volume (Bld) [Entitic vol] 9.8 fL 9.0 - 12.7 fL [facility] Platelets (Bld) [#/Vol] 372 10*3/uL 150 - 400 k/uL [facility] RBC (Bld) [#/Vol] 4.51 10*6/uL 3.90 - 5.2 0 m/uL [facility] WBC (Bld) [#/Vol] 6.43 10*3/uL 3.70 - 11. 00 k/uL [facility] Comprehensive metabolic 2000 panelon 07-28-2022 Albumin [Mass/Vol] 4.3 g/dL 3.9 - 4.9 g/dL [facility] ALP [Catalytic activity/Vol] 70 U/L 34 - 123 U/L [facility] ALT [Catalytic activity/Vol] 29 U/L 7 - 38 U/L [facility] Anion gap [Moles/Vol] 10 mmol/L 9 - 18 mmol/L [facility] AST [Catalytic activity/Vol] 55 U/L High 13 - 35 U/L [facility] Bilirubin [Mass/Vol] 0.2 mg/dL 0.2 - 1 .3 mg/dL [facility] Calcium [Mass/Vol] 10.3 mg/dL High 8.5 - 10. 2 mg/dL [facility] Chloride [Moles/Vol] 99 mmol/L 97 - 10 5 mmol/L [facility] CO2 [Moles/Vol] 29 mmol/L 22 - 30 mmol/L [facility] Creatinine [Mass/Vol] 0.62 mg/dL 0.58 - 0.96 mg/dL [facility] Estimated Glomerular Filtration Rate 128 mL/min/1.73m >=60 mL/min/1.73m [facility] Glucose [Mass/Vol] 88 mg/dL 74 - 99 mg/dL [facility] Potassium [Moles/Vol] 4.4 mmol/L 3.7 - 5.1 mmol/L [facility] Protein [Mass/Vol] 7.7 g/dL 6.3 - 8.0 g/dL [facility] [facility] S[facility] [Moles/Vol] 138 mmol/L 136 - 144 mmol/L [facility] Urea nitrogen [Mass/Vol] 11 mg/dL 7 - 21 mg/dL [facility] CBC W Auto Differential pane l (Bld)on 07-25-2022 Basophils (Bld) [#/Vol] 0.04 10*3/uL <0.11 k/uL [facility] Basophils/100 WBC (Bld) 0.6 % [facility] Differential cell count method Nom (Bld) Auto [facility] Eosinophils (Bld) [#/Vol] 0.25 10*3/uL <0.46 k/uL [facility] Eosinophils/100 WBC (Bld) 3.8 % [facility] Erythrocyte distribution width (RBC) [Ratio] 13.6 % 11.5 - 15.0 % [facility] Hematocrit (Bld) [Volume fraction] 36.3 % 36.0 - 46.0 % [facility] Hemoglobin (Bld) [Mass/Vol] 11.1 g/dL Low 11.5 - 15.5 g/dL [facility] Immature granulocytes (Bld) [#/Vol] 0.03 10*3/uL <0.10 k/uL [facility] Immature granulocytes/100 WBC (Bld) 0.5 % [facility] Lymphocytes (Bld) [#/Vol] 2.38 10*3/uL 1.00 - 4.00 k/uL [facility] Lymphocytes/100 WBC (Bld) 36.4 % [facility] MCH (RBC) [Entitic mass] 25.8 pg Low 26.0 - 34.0 pg [facility] MCHC (RBC) [Mass/Vol] 30.6 g/dL 30.5 - 36.0 g/dL [facility] MCV (RBC) [Entitic vol] 84.2 fL 80.0 - 100.0 fL [facility] Monocytes (Bld) [#/Vol] 0.62 10*3/uL <0.87 k/uL [facility] Monocytes/100 WBC (Bld) 9.5 % [facility] Neutrophils (Bld) [#/Vol] 3.21 10*3/uL 1.45 - 7.50 k/uL [facility] Neutrophils/100 WBC (Bld) 49.2 % [facility] Nucleated RBC (Bld) [#/Vol] <0.01 k/uL [facility] Nucleated RBC/100 WBC (Bld) [Ratio] 0.0 /100 WBC [facility] Platelet mean volume (Bld) [Entitic vol] 9.8 fL 9.0 - 12.7 fL [facility] Platelets (Bld) [#/Vol] 366 10*3/uL 150 - 400 k/uL [facility] RBC (Bld) [#/Vol] 4.31 10*6/uL 3.90 - 5.2 0 m/uL [facility] WBC (Bld) [#/Vol] 6.53 10*3/uL 3.70 - 11. 00 k/uL [facility] Comprehensive metabolic 2000 panelon 07-25-2022 Albumin [Mass/Vol] 4.1 g/dL 3.9 - 4.9 g/dL [facility] ALP [Catalytic activity/Vol] 72 U/L 34 - 123 U/L [facility] ALT [Catalytic activity/Vol] 19 U/L 7 - 38 U/L [facility] Anion gap [Moles/Vol] 9 mmol/L 9 - 18 mmol/L [facility] AST [Catalytic activity/Vol] 51 U/L High 13 - 35 U/L [facility] Bilirubin [Mass/Vol] 0.3 mg/dL 0.2 - 1 .3 mg/dL [facility] Calcium [Mass/Vol] 10.0 mg/dL 8.5 - 10. 2 mg/dL [facility] Chloride [Moles/Vol] 99 mmol/L 97 - 10 5 mmol/L [facility] CO2 [Moles/Vol] 31 mmol/L High 22 - 30 mmol/L [facility] Creatinine [Mass/Vol] 0.56 mg/dL Low 0.58 - 0.96 mg/dL [facility] Estimated Glomerular Filtration Rate 131 mL/min/1.73m >=60 mL/min/1.73m [facility] Glucose [Mass/Vol] 83 mg/dL 74 - 99 mg/dL [facility] Potassium [Moles/Vol] 4.5 mmol/L 3.7 - 5.1 mmol/L [facility] Protein [Mass/Vol] 7.3 g/dL 6.3 - 8.0 g/dL [facility] Sodium [Moles/Vol] 139 mmol/L 136 - 144 mmol/L [facility] Urea nitrogen [Mass/Vol] 11 mg/dL 7 - 21 mg/dL [facility] MAGNESIUM BLDon 07-25-2022 Magnesium [Mass/Vol] 1.8 mg/dL 1.7 - 2 .3 mg/dL [facility] CBC W Auto Differential pane l (Bld)on 07-21-2022 Basophils (Bld) [#/Vol] 0.04 10*3/uL <0.11 k/uL [facility] Basophils/100 WBC (Bld) 0.6 % [facility] Differential cell count method Nom (Bld) Auto [facility] Eosinophils (Bld) [#/Vol] 0.19 10*3/uL <0.46 k/uL [facility] Eosinophils/100 WBC (Bld) 2.7 % [facility] Erythrocyte distribution width (RBC) [Ratio] 14.0 % 11.5 - 15.0 % [facility] Hematocrit (Bld) [Volume fraction] 37.7 % 36.0 - 46.0 % [facility] Hemoglobin (Bld) [Mass/Vol] 11.3 g/dL Low 11.5 - 15.5 g/dL [facility] Immature granulocytes (Bld) [#/Vol] <0.10 k/uL [facility] Immature granulocytes/100 WBC (Bld) 0.3 % [facility] Lymphocytes (Bld) [#/Vol] 2.86 10*3/uL 1.00 - 4.00 k/uL [facility] Lymphocytes/100 WBC (Bld) 40.3 % [facility] MCH (RBC) [Entitic mass] 25.5 pg Low 26.0 - 34.0 pg [facility] MCHC (RBC) [Mass/Vol] 30.0 g/dL Low 30.5 - 36.0 g/dL [facility] MCV (RBC) [Entitic vol] 84.9 fL 80.0 - 100.0 fL [facility] Monocytes (Bld) [#/Vol] 0.64 10*3/uL <0.87 k/uL [facility] Monocytes/100 WBC (Bld) 9.0 % [facility] Neutrophils (Bld) [#/Vol] 3.34 10*3/uL 1.45 - 7.50 k/uL [facility] Neutrophils/100 WBC (Bld) 47.1 % [facility] Nucleated RBC (Bld) [#/Vol] <0.01 k/uL [facility] Nucleated RBC/100 WBC (Bld) [Ratio] 0.0 /100 WBC [facility] Platelet mean volume (Bld) [Entitic vol] 10.1 fL 9.0 - 12.7 fL [facility] Platelets (Bld) [#/Vol] 374 10*3/uL 150 - 400 k/uL [facility] RBC (Bld) [#/Vol] 4.44 10*6/uL 3.90 - 5.2 0 m/uL [facility] WBC (Bld) [#/Vol] 7.09 10*3/uL 3.70 - 11. 00 k/uL [facility] Comprehensive metabolic 2000 panelon 07-21-2022 Albumin [Mass/Vol] 4.0 g/dL 3.9 - 4.9 g/dL [facility] ALP [Catalytic activity/Vol] 76 U/L 34 - 123 U/L [facility] ALT [Catalytic activity/Vol] 12 U/L 7 - 38 U/L [facility] Anion gap [Moles/Vol] 15 mmol/L 9 - 18 mmol/L [facility] AST [Catalytic activity/Vol] 22 U/L 13 - 35 U/L [facility] Bilirubin [Mass/Vol] 0.2 mg/dL 0.2 - 1 .3 mg/dL [facility] Calcium [Mass/Vol] 9.9 mg/dL 8.5 - 10. 2 mg/dL [facility] Chloride [Moles/Vol] 101 mmol/L 97 - 10 5 mmol/L [facility] CO2 [Moles/Vol] 25 mmol/L 22 - 30 mmol/L [facility] Creatinine [Mass/Vol] 0.53 mg/dL Low 0.58 - 0.96 mg/dL [facility] Estimated Glomerular Filtration Rate 133 mL/min/1.73m >=60 mL/min/1.73m [facility] Glucose [Mass/Vol] 69 mg/dL Low 74 - 99 mg/dL [facility] Potassium [Moles/Vol] 4.3 mmol/L 3.7 - 5.1 mmol/L [facility] Protein [Mass/Vol] 7.4 g/dL 6.3 - 8.0 g/dL [facility] Sodium [Moles/Vol] 141 mmol/L 136 - 144 mmol/L [facility] Urea nitrogen [Mass/Vol] 14 mg/dL 7 - 21 mg/dL [facility] CBC W Auto Differential pane l (Bld)on 07-18-2022 Basophils (Bld) [#/Vol] 0.06 10*3/uL <0.11 k/uL [facility] Basophils/100 WBC (Bld) 0.9 % [facility] Differential cell count method Nom (Bld) Auto [facility] Eosinophils (Bld) [#/Vol] 0.21 10*3/uL <0.46 k/uL [facility] Eosinophils/100 WBC (Bld) 3.0 % [facility] Erythrocyte distribution width (RBC) [Ratio] 13.9 % 11.5 - 15.0 % [facility] Hematocrit (Bld) [Volume fraction] 36.3 % 36.0 - 46.0 % [facility] Hemoglobin (Bld) [Mass/Vol] 11.0 g/dL Low 11.5 - 15.5 g/dL [facility] Immature granulocytes (Bld) [#/Vol] <0.10 k/uL [facility] Immature granulocytes/100 WBC (Bld) 0.1 % [facility] Lymphocytes (Bld) [#/Vol] 3.19 10*3/uL 1.00 - 4.00 k/uL [facility] Lymphocytes/100 WBC (Bld) 45.9 % [facility] MCH (RBC) [Entitic mass] 25.3 pg Low 26.0 - 34.0 pg [facility] MCHC (RBC) [Mass/Vol] 30.3 g/dL Low 30.5 - 36.0 g/dL [facility] MCV (RBC) [Entitic vol] 83.6 fL 80.0 - 100.0 fL [facility] Monocytes (Bld) [#/Vol] 0.65 10*3/uL <0.87 k/uL [facility] Monocytes/100 WBC (Bld) 9.4 % [facility] Neutrophils (Bld) [#/Vol] 2.83 10*3/uL 1.45 - 7.50 k/uL [facility] Neutrophils/100 WBC (Bld) 40.7 % [facility] Nucleated RBC (Bld) [#/Vol] <0.01 k/uL [facility] Nucleated RBC/100 WBC (Bld) [Ratio] 0.0 /100 WBC [facility] Platelet mean volume (Bld) [Entitic vol] 9.5 fL 9.0 - 12.7 fL [facility] Platelets (Bld) [#/Vol] 437 10*3/uL High 150 - 400 k/uL [facility] RBC (Bld) [#/Vol] 4.34 10*6/uL 3.90 - 5.2 0 m/uL [facility] WBC (Bld) [#/Vol] 6.95 10*3/uL 3.70 - 11. 00 k/uL [facility] Comprehensive metabolic 2000 panelon 07-18-2022 Albumin [Mass/Vol] 4.0 g/dL 3.9 - 4.9 g/dL [facility] ALP [Catalytic activity/Vol] 83 U/L 34 - 123 U/L [facility] ALT [Catalytic activity/Vol] 15 U/L 7 - 38 U/L [facility] Anion gap [Moles/Vol] 8 mmol/L Low 9 - 18 mmol/L [facility] AST [Catalytic activity/Vol] 34 U/L 13 - 35 U/L [facility] Bilirubin [Mass/Vol] 0.2 mg/dL 0.2 - 1 .3 mg/dL [facility] Calcium [Mass/Vol] 10.3 mg/dL High 8.5 - 10. 2 mg/dL [facility] Chloride [Moles/Vol] 100 mmol/L 97 - 10 5 mmol/L [facility] CO2 [Moles/Vol] 31 mmol/L High 22 - 30 mmol/L [facility] Creatinine [Mass/Vol] 0.77 mg/dL 0.58 - 0.96 mg/dL [facility] Estimated Glomerular Filtration Rate 111 mL/min/1.73m >=60 mL/min/1.73m [facility] Glucose [Mass/Vol] 84 mg/dL 74 - 99 mg/dL [facility] Potassium [Moles/Vol] 4.4 mmol/L 3.7 - 5.1 mmol/L [facility] Protein [Mass/Vol] 7.7 g/dL 6.3 - 8.0 g/dL [facility] Sodium [Moles/Vol] 139 mmol/L 136 - 144 mmol/L [facility] Urea nitrogen [Mass/Vol] 14 mg/dL 7 - 21 mg/dL [facility] MAGNESIUM BLDon 07-18-2022 Magnesium [Mass/Vol] 1.8 mg/dL 1.7 - 2 .3 mg/dL [facility] CBC W Auto Differential pane l (Bld)on 07-14-2022 Basophils (Bld) [#/Vol] 0.07 10*3/uL <0.11 k/uL [facility] Basophils/100 WBC (Bld) 1.0 % [facility] Differential cell count method Nom (Bld) Auto [facility] Eosinophils (Bld) [#/Vol] 0.19 10*3/uL <0.46 k/uL [facility] Eosinophils/100 WBC (Bld) 2.8 % [facility] Erythrocyte distribution width (RBC) [Ratio] 14.0 % 11.5 - 15.0 % [facility] Hematocrit (Bld) [Volume fraction] 37.6 % 36.0 - 46.0 % [facility] Hemoglobin (Bld) [Mass/Vol] 11.1 g/dL Low 11.5 - 15.5 g/dL [facility] Immature granulocytes (Bld) [#/Vol] 0.03 10*3/uL <0.10 k/uL [facility] Immature granulocytes/100 WBC (Bld) 0.4 % [facility] Lymphocytes (Bld) [#/Vol] 2.25 10*3/uL 1.00 - 4.00 k/uL [facility] Lymphocytes/100 WBC (Bld) 32.8 % [facility] MCH (RBC) [Entitic mass] 25.3 pg Low 26.0 - 34.0 pg [facility] MCHC (RBC) [Mass/Vol] 29.5 g/dL Low 30.5 - 36.0 g/dL [facility] MCV (RBC) [Entitic vol] 85.6 fL 80.0 - 100.0 fL [facility] Monocytes (Bld) [#/Vol] 0.48 10*3/uL <0.87 k/uL [facility] Monocytes/100 WBC (Bld) 7.0 % [facility] Neutrophils (Bld) [#/Vol] 3.85 10*3/uL 1.45 - 7.50 k/uL [facility] Neutrophils/100 WBC (Bld) 56.0 % [facility] Nucleated RBC (Bld) [#/Vol] <0.01 k/uL [facility] Nucleated RBC/100 WBC (Bld) [Ratio] 0.0 /100 WBC [facility] Platelet mean volume (Bld) [Entitic vol] 9.3 fL 9.0 - 12.7 fL [facility] Platelets (Bld) [#/Vol] 507 10*3/uL High 150 - 400 k/uL [facility] RBC (Bld) [#/Vol] 4.39 10*6/uL 3.90 - 5.2 0 m/uL [facility] WBC (Bld) [#/Vol] 6.87 10*3/uL 3.70 - 11. 00 k/uL [facility] Comprehensive metabolic 2000 panelon 07-14-2022 Albumin [Mass/Vol] 4.1 g/dL 3.9 - 4.9 g/dL [facility] ALP [Catalytic activity/Vol] 88 U/L 34 - 123 U/L [facility] ALT [Catalytic activity/Vol] 13 U/L 7 - 38 U/L [facility] Anion gap [Moles/Vol] 10 mmol/L 9 - 18 mmol/L [facility] AST [Catalytic activity/Vol] 33 U/L 13 - 35 U/L [facility] Bilirubin [Mass/Vol] 0.2 mg/dL 0.2 - 1 .3 mg/dL [facility] Calcium [Mass/Vol] 10.3 mg/dL High 8.5 - 10. 2 mg/dL [facility] Chloride [Moles/Vol] 100 mmol/L 97 - 10 5 mmol/L [facility] CO2 [Moles/Vol] 29 mmol/L 22 - 30 mmol/L [facility] Creatinine [Mass/Vol] 0.65 mg/dL 0.58 - 0.96 mg/dL [facility] Estimated Glomerular Filtration Rate 126 mL/min/1.73m >=60 mL/min/1.73m [facility] Glucose [Mass/Vol] 85 mg/dL 74 - 99 mg/dL [facility] Potassium [Moles/Vol] 4.5 mmol/L 3.7 - 5.1 mmol/L [facility] Protein [Mass/Vol] 7.9 g/dL 6.3 - 8.0 g/dL [facility] Sodium [Moles/Vol] 139 mmol/L 136 - 144 mmol/L [facility] Urea nitrogen [Mass/Vol] 18 mg/dL 7 - 21 mg/dL [facility] ALKALINE PHOSPHATASEon 07-12 ALP [Catalytic activity/Vol] 85 U/L 34 - 123 U/L [facility] CBC W Auto Differential pane l (Bld)on 07-11-2022 Basophils (Bld) [#/Vol] 0.07 10*3/uL <0.11 k/uL [facility] Basophils/100 WBC (Bld) 0.9 % [facility] Differential cell count method Nom (Bld) Auto [facility] Eosinophils (Bld) [#/Vol] 0.27 10*3/uL <0.46 k/uL [facility] Eosinophils/100 WBC (Bld) 3.6 % [facility] Erythrocyte distribution width (RBC) [Ratio] 14.2 % 11.5 - 15.0 % [facility] Hematocrit (Bld) [Volume fraction] 37.1 % 36.0 - 46.0 % [facility] Hemoglobin (Bld) [Mass/Vol] 11.1 g/dL Low 11.5 - 15.5 g/dL [facility] Immature granulocytes (Bld) [#/Vol] 0.07 10*3/uL <0.10 k/uL [facility] Immature granulocytes/100 WBC (Bld) 0.9 % [facility] Lymphocytes (Bld) [#/Vol] 2.57 10*3/uL 1.00 - 4.00 k/uL [facility] Lymphocytes/100 WBC (Bld) 33.9 % [facility] MCH (RBC) [Entitic mass] 25.7 pg Low 26.0 - 34.0 pg [facility] MCHC (RBC) [Mass/Vol] 29.9 g/dL Low 30.5 - 36.0 g/dL [facility] MCV (RBC) [Entitic vol] 85.9 fL 80.0 - 100.0 fL [facility] Monocytes (Bld) [#/Vol] 0.51 10*3/uL <0.87 k/uL [facility] Monocytes/100 WBC (Bld) 6.7 % [facility] Neutrophils (Bld) [#/Vol] 4.08 10*3/uL 1.45 - 7.50 k/uL [facility] Neutrophils/100 WBC (Bld) 54.0 % [facility] Nucleated RBC (Bld) [#/Vol] <0.01 k/uL [facility] Nucleated RBC/100 WBC (Bld) [Ratio] 0.0 /100 WBC [facility] Platelet mean volume (Bld) [Entitic vol] 9.2 fL 9.0 - 12.7 fL [facility] Platelets (Bld) [#/Vol] 554 10*3/uL High 150 - 400 k/uL [facility] RBC (Bld) [#/Vol] 4.32 10*6/uL 3.90 - 5.2 0 m/uL [facility] WBC (Bld) [#/Vol] 7.57 10*3/uL 3.70 - 11. 00 k/uL [facility] Comprehensive metabolic 2000 panelon 07-11-2022 Albumin [Mass/Vol] 4.0 g/dL 3.9 - 4.9 g/dL [facility] ALP [Catalytic activity/Vol] 87 U/L 34 - 123 U/L [facility] ALT [Catalytic activity/Vol] 17 U/L 7 - 38 U/L [facility] Anion gap [Moles/Vol] 12 mmol/L 9 - 18 mmol/L [facility] AST [Catalytic activity/Vol] 25 U/L 13 - 35 U/L [facility] Bilirubin [Mass/Vol] 0.2 mg/dL 0.2 - 1 .3 mg/dL [facility] Calcium [Mass/Vol] 10.0 mg/dL 8.5 - 10. 2 mg/dL [facility] Chloride [Moles/Vol] 103 mmol/L 97 - 10 5 mmol/L [facility] CO2 [Moles/Vol] 27 mmol/L 22 - 30 mmol/L [facility] Creatinine [Mass/Vol] 0.65 mg/dL 0.58 - 0.96 mg/dL [facility] Estimated Glomerular Filtration Rate 119 mL/min/1.73m >=60 mL/min/1.73m [facility] Glucose [Mass/Vol] 81 mg/dL 74 - 99 mg/dL [facility] Potassium [Moles/Vol] 4.5 mmol/L 3.7 - 5.1 mmol/L [facility] Protein [Mass/Vol] 7.6 g/dL 6.3 - 8.0 g/dL [facility] Sodium [Moles/Vol] 142 mmol/L 136 - 144 mmol/L [facility] Urea nitrogen [Mass/Vol] 14 mg/dL 7 - 21 mg/dL [facility] MAGNESIUM BLDon 07-11-2022 Magnesium [Mass/Vol] 2.0 mg/dL 1.7 - 2 .3 mg/dL [facility] Basic Metabolic Panelon Anion gap [Moles/Vol] 10 mmol/L 9 - 17 mmol/L [facility] Calcium [Mass/Vol] 9.3 mg/dL 8.6 - 10. 4 mg/dL [facility] Chloride [Moles/Vol] 100 mmol/L 98 - 10 7 mmol/L [facility] CO2 [Moles/Vol] 23 mmol/L 20 - 31 mmol/L [facility] Creatinine [Mass/Vol] 0.71 mg/dL 0.50 - 0.90 mg/dL [facility] GFR/1.73 sq M.predicted MDRD (S/P/Bld) [Vol rate/Area] - PINF [facility] Comment on above: Effective Apr 04, [...] [Mass/Vol] 99 mg/dL 70 - 99 mg/dL [facility] Interpretation and review of laboratory results Abnormal [facility] [employer] Potassium [Moles/Vol] 4.4 mmol/L 3.7 - 5.3 mmol/L [facility] [employer] Sodium [Moles/Vol] 133 mmol/L Low 135 - 144 mmol/L [facility] Urea nitrogen (BldV) [Mass/Vol] 19 mg/dL 6 - 20 mg/dL [facility] Basic Metabolic Panelon Anion gap [Moles/Vol] 11 mmol/L 9 - 17 mmol/L [facility] [employer] Calcium [Mass/Vol] 9.2 mg/dL 8.6 - 10. 4 mg/dL [facility] Chloride [Moles/Vol] 100 mmol/L 98 - 10 7 mmol/L [facility] CO2 [Moles/Vol] 29 mmol/L 20 - 31 mmol/L [facility] Creatinine [Mass/Vol] 0.57 mg/dL 0.50 - 0.90 mg/dL [facility] GFR/1.73 sq M.predicted MDRD (S/P/Bld) [Vol rate/Area] - PINF [facility] Comment on above: Effective Apr 04, [...] [Mass/Vol] 92 mg/dL 70 - 99 mg/dL [facility] [employer] Potassium [Moles/Vol] 4.3 mmol/L 3.7 - 5.3 mmol/L [facility] Sodium [Moles/Vol] 140 mmol/L 135 - 144 mmol/L [facility] Urea nitrogen (BldV) [Mass/Vol] 12 mg/dL 6 - 20 mg/dL [facility] Basic Metabolic Panelon Anion gap [Moles/Vol] 9 mmol/L 9 - 17 mmol/L [facility] Calcium [Mass/Vol] 9.2 mg/dL 8.6 - 10. 4 mg/dL [facility] Chloride [Moles/Vol] 96 mmol/L Low 98 - 10 7 mmol/L [facility] CO2 [Moles/Vol] 29 mmol/L 20 - 31 mmol/L [facility] Creatinine [Mass/Vol] 0.48 mg/dL Low 0.50 - 0.90 mg/dL [facility] GFR/1.73 sq M.predicted MDRD (S/P/Bld) [Vol rate/Area] - PINF [facility] Comment on above: Effective Apr 04, [...] [Mass/Vol] 89 mg/dL 70 - 99 mg/dL [facility] Interpretation and review of laboratory results Abnormal [facility] Potassium [Moles/Vol] 3.7 mmol/L 3.7 - 5.3 mmol/L [facility] Sodium [Moles/Vol] 134 mmol/L Low 135 - 144 mmol/L [facility] Urea nitrogen (BldV) [Mass/Vol] 10 mg/dL 6 - 20 mg/dL [facility] CBC with Auto Differentialon 07-04-2022 Absolute Eos # 0.30 [place] [facility] Absolute Immature Granulocyte 0.05 [facility] Absolute Lymph # 2.41 [facility] Absolute Avery # 0.61 [facility] Basophils (Bld) [#/Vol] 0.07 10*3/uL [facility] Basophils/100 WBC (Bld) 1 % 0 - 2 % [facility] Eosinophils/100 WBC (Bld) 4 % 1 - 4 % [facility] Hematocrit (Bld) [Volume fraction] 31.8 % Low 36.3 - 47.1 % [facility] Hemoglobin (Bld) [Mass/Vol] 9.4 g/dL Low 11.9 - 15.1 g/dL [facility] Immature granulocytes/100 WBC (Bld) 1 % High 0 [facility] Interpretation and review of laboratory results Abnormal [facility] Lymphocytes/100 WBC (Bld) 31 % 24 - 43 % [facility] MCH (RBC) [Entitic mass] 25.9 pg 25.2 - 33.5 pg [facility] MCHC (RBC) [Mass/Vol] 29.6 g/dL 28.4 - 34.8 g/dL [facility] MCV (RBC) [Entitic vol] 87.6 fL 82.6 - 102.9 fL [facility] Monocytes/100 WBC (Bld) 8 % 3 - 12 % [facility] NRBC Automated 0.0 0.0 per 100 WBC [facility] Platelet distribution width (Bld) [Ratio] 13.3 % 11.8 - 14.4 % [facility] Platelet mean volume (Bld) [Entitic vol] 9.0 fL 8.1 - 13.5 fL [facility] Platelets (Bld) [#/Vol] 467 10*3/uL High [facility] RBC (Bld) [#/Vol] 3.63 10*6/uL Low 3.95 - 5.1 1 m/uL [facility] Segmented neutrophils/100 WBC (Bld) 55 % 36 - 65 % [facility] Segs Absolute 4.29 [facility] WBC (Bld) [#/Vol] 7.7 10*3/uL [facility] Basic Metabolic Panelon -0 Anion gap [Moles/Vol] 11 mmol/L 9 - 17 mmol/L [facility] Calcium [Mass/Vol] 8.9 mg/dL 8.6 - 10. 4 mg/dL [facility] Chloride [Moles/Vol] 96 mmol/L Low 98 - 10 7 mmol/L [facility] CO2 [Moles/Vol] 31 mmol/L 20 - 31 mmol/L [facility] Creatinine [Mass/Vol] 0.61 mg/dL 0.50 - 0.90 mg/dL [facility] GFR/1.73 sq M.predicted MDRD (S/P/Bld) [Vol rate/Area] - PINF [facility] Comment on above: Effective Apr 04, [...] [Mass/Vol] 92 mg/dL 70 - 99 mg/dL [facility] Interpretation and review of laboratory results Abnormal [facility] Potassium [Moles/Vol] 4.0 mmol/L 3.7 - 5.3 mmol/L [facility] Sodium [Moles/Vol] 138 mmol/L 135 - 144 mmol/L [facility] Urea nitrogen (BldV) [Mass/Vol] 11 mg/dL 6 - 20 mg/dL [facility] CBC with Auto Differentialon 07-03-2022 Absolute Eos # 0.28 [place] [facility] Absolute Immature Granulocyte 0.05 [facility] Absolute Lymph # 2.12 [facility] Absolute Avery # 0.70 [facility] Basophils (Bld) [#/Vol] 0.05 10*3/uL [facility] Basophils/100 WBC (Bld) 1 % 0 - 2 % [facility] Eosinophils/100 WBC (Bld) 4 % 1 - 4 % [facility] Hematocrit (Bld) [Volume fraction] 29.5 % Low 36.3 - 47.1 % [facility] Hemoglobin (Bld) [Mass/Vol] 8.9 g/dL Low 11.9 - 15.1 g/dL [facility] Immature granulocytes/100 WBC (Bld) 1 % High 0 [facility] Interpretation and review of laboratory results Abnormal [facility] Lymphocytes/100 WBC (Bld) 30 % 24 - 43 % [facility] MCH (RBC) [Entitic mass] 26.0 pg 25.2 - 33.5 pg [facility] MCHC (RBC) [Mass/Vol] 30.2 g/dL 28.4 - 34.8 g/dL [facility] MCV (RBC) [Entitic vol] 86.3 fL 82.6 - 102.9 fL [facility] Monocytes/100 WBC (Bld) 10 % 3 - 12 % [facility] NRBC Automated 0.0 0.0 per 100 WBC [facility] Platelet distribution width (Bld) [Ratio] 13.4 % 11.8 - 14.4 % [facility] Platelet mean volume (Bld) [Entitic vol] 9.2 fL 8.1 - 13.5 fL [facility] Platelets (Bld) [#/Vol] 413 10*3/uL [facility] RBC (Bld) [#/Vol] 3.42 10*6/uL Low 3.95 - 5.1 1 m/uL [facility] Segmented neutrophils/100 WBC (Bld) 54 % 36 - 65 % [facility] Segs Absolute 3.81 [facility] WBC (Bld) [#/Vol] 7.0 10*3/uL [facility] Basic Metabolic Panelon 12-3 Anion gap [Moles/Vol] 10 mmol/L 9 - 17 mmol/L [facility] Calcium [Mass/Vol] 8.8 mg/dL 8.6 - 10. 4 mg/dL [facility] Chloride [Moles/Vol] 95 mmol/L Low 98 - 10 7 mmol/L [facility] CO2 [Moles/Vol] 29 mmol/L 20 - 31 mmol/L [facility] Creatinine [Mass/Vol] 0.55 mg/dL 0.50 - 0.90 mg/dL [facility] GFR/1.73 sq M.predicted MDRD (S/P/Bld) [Vol rate/Area] - PINF [facility] Comment on above: Effective Apr 04, [...] 109 mg/dL High 70 - 99 mg/dL [facility] Interpretation and review of laboratory results Abnormal [facility] Potassium [Moles/Vol] 3.7 mmol/L 3.7 - 5.3 mmol/L [facility] Sodium [Moles/Vol] 134 mmol/L Low 135 - 144 mmol/L [facility] Urea nitrogen (BldV) [Mass/Vol] 10 mg/dL 6 - 20 mg/dL [facility] CBC with Auto Differentialon 07-02-2022 Absolute Eos # 0.35 [place] [facility] Absolute Immature Granulocyte 0.05 [facility] Absolute Lymph # 2.11 [facility] Absolute Avery # 0.70 [facility] Basophils (Bld) [#/Vol] 0.05 10*3/uL [facility] Basophils/100 WBC (Bld) 1 % 0 - 2 % [facility] Eosinophils/100 WBC (Bld) 5 % High 1 - 4 % [facility] Hematocrit (Bld) [Volume fraction] 30.0 % Low 36.3 - 47.1 % [facility] Hemoglobin (Bld) [Mass/Vol] 9.0 g/dL Low 11.9 - 15.1 g/dL [facility] Immature granulocytes/100 WBC (Bld) 1 % High 0 [facility] Interpretation and review of laboratory results Abnormal [facility] Lymphocytes/100 WBC (Bld) 29 % 24 - 43 % [facility] MCH (RBC) [Entitic mass] 26.1 pg 25.2 - 33.5 pg [facility] MCHC (RBC) [Mass/Vol] 30.0 g/dL 28.4 - 34.8 g/dL [facility] MCV (RBC) [Entitic vol] 87.0 fL 82.6 - 102.9 fL [facility] Monocytes/100 WBC (Bld) 10 % 3 - 12 % [facility] NRBC Automated 0.0 0.0 per 100 WBC [facility] Platelet distribution width (Bld) [Ratio] 13.5 % 11.8 - 14.4 % [facility] Platelet mean volume (Bld) [Entitic vol] 9.4 fL 8.1 - 13.5 fL [facility] Platelets (Bld) [#/Vol] 376 10*3/uL [facility] RBC (Bld) [#/Vol] 3.45 10*6/uL Low 3.95 - 5.1 1 m/uL [facility] Segmented neutrophils/100 WBC (Bld) 55 % 36 - 65 % [facility] Segs Absolute 4.04 [facility] WBC (Bld) [#/Vol] 7.3 10*3/uL [facility] Basic Metabolic Panelon 12-3 Anion gap [Moles/Vol] 12 mmol/L 9 - 17 mmol/L [facility] Calcium [Mass/Vol] 8.9 mg/dL 8.6 - 10. 4 mg/dL [facility] Chloride [Moles/Vol] 94 mmol/L Low 98 - 10 7 mmol/L [facility] CO2 [Moles/Vol] 29 mmol/L 20 - 31 mmol/L [facility] Creatinine [Mass/Vol] 0.46 mg/dL Low 0.50 - 0.90 mg/dL [facility] GFR/1.73 sq M.predicted MDRD (S/P/Bld) [Vol rate/Area] - PINF [facility] Comment on above: Effective Apr 04, [...] 106 mg/dL High 70 - 99 mg/dL [facility] Interpretation and review of laboratory results Abnormal [facility] Potassium [Moles/Vol] 4.1 mmol/L 3.7 - 5.3 mmol/L [facility] Sodium [Moles/Vol] 135 mmol/L 135 - 144 mmol/L [facility] Urea nitrogen (BldV) [Mass/Vol] 9 mg/dL 6 - 20 mg/dL [facility] VL DUP LOWER EXTREMITY VENOU S BILATERALon 07-01-2022 Skyler Hardin MD - 07/01/2022 [facility] Vascular Lower Extremities DVT Study Procedure Patient Name [facility] Date of Study 06/30/2022 [place] Date of 1995 Gender Female Age 26 year(s) Race Room Number 0138 Corporate ID [id number] # Patient Acct [id number] # MR # [id number] [employer] Kacie Thomas RVT Interpreting Physician Wilfred Holland [...] +- --------- + (more content not included)... [employer] Work Phone: VL DUP LOWER EXTREMITY VENOU S BILATERALOrdered By: Skyler Hardin on 07-01-2022 [employer] Phone: Basic Metabolic Panelon 12-2 Anion gap [Moles/Vol] 10 mmol/L 9 - 17 mmol/L [employer] Calcium [Mass/Vol] 8.9 mg/dL 8.6 - 10. 4 mg/dL [employer] Chloride [Moles/Vol] 95 mmol/L Low 98 - 10 7 mmol/L [employer] CO2 [Moles/Vol] 30 mmol/L 20 - 31 mmol/L [employer] Creatinine [Mass/Vol] 0.53 mg/dL 0.50 - 0.90 mg/dL [facility] GFR/1.73 sq M.predicted MDRD (S/P/Bld) [Vol rate/Area] - PINF [facility] Comment on above: Effective Apr 04, [...] 101 mg/dL High 70 - 99 mg/dL [facility] Potassium [Moles/Vol] 4.5 mmol/L 3.7 - 5.3 mmol/L [facility] Sodium [Moles/Vol] 135 mmol/L 135 - 144 mmol/L [facility] Urea nitrogen (BldV) [Mass/Vol] 7 mg/dL 6 - 20 mg/dL [facility] CBC with Auto Differentialon 06-30-2022 Absolute Eos # 0.29 [place] [facility] Absolute Immature Granulocyte 0.07 [facility] Absolute Lymph # 2.61 [facility] Absolute Avery # 1.14 [facility] Basophils (Bld) [#/Vol] 0.05 10*3/uL [facility] Basophils/100 WBC (Bld) 0 % 0 - 2 % [facility] Eosinophils/100 WBC (Bld) 3 % 1 - 4 % [facility] Hematocrit (Bld) [Volume fraction] 30.2 % Low 36.3 - 47.1 % [facility] Hemoglobin (Bld) [Mass/Vol] 9.1 g/dL Low 11.9 - 15.1 g/dL [facility] Immature granulocytes/100 WBC (Bld) 1 % High 0 [facility] Interpretation and review of laboratory results Abnormal [facility] Lymphocytes/100 WBC (Bld) 23 % Low 24 - 43 % [facility] MCH (RBC) [Entitic mass] 26.0 pg 25.2 - 33.5 pg [facility] MCHC (RBC) [Mass/Vol] 30.1 g/dL 28.4 - 34.8 g/dL [facility] MCV (RBC) [Entitic vol] 86.3 fL 82.6 - 102.9 fL [facility] Monocytes/100 WBC (Bld) 10 % 3 - 12 % [facility] NRBC Automated 0.0 0.0 per 100 WBC [facility] Platelet distribution width (Bld) [Ratio] 13.4 % 11.8 - 14.4 % [facility] Platelet mean volume (Bld) [Entitic vol] 9.7 fL 8.1 - 13.5 fL [facility] Platelets (Bld) [#/Vol] 296 10*3/uL [facility] RBC (Bld) [#/Vol] 3.50 10*6/uL Low 3.95 - 5.1 1 m/uL [facility] Segmented neutrophils/100 WBC (Bld) 63 % 36 - 65 % [facility] Segs Absolute 7.18 [facility] WBC (Bld) [#/Vol] 11.3 10*3/uL [facility] Magnesiumon 06-30-2022 Magnesium [Mass/Vol] 1.9 mg/dL 1.6 - 2 .6 mg/dL [facility] No Panel Informationon 06-30 Interpretation and review of laboratory results Abnormal [facility] Phosphoruson 06-30-2022 Phosphate [Mass/Vol] 4.8 mg/dL High 2.6 - 4 .5 mg/dL [facility] VL DUP LOWER EXTREMITY VENOU S BILATERALon 06-30-2022 Radiology Study observation (narrative) [facility] Work Phone: Basic Metabolic Panelon 06-03 Anion gap [Moles/Vol] 8 mmol/L Low 9 - 17 mmol/L [facility] Calcium [Mass/Vol] 8.4 mg/dL Low 8.6 - 10. 4 mg/dL [facility] Chloride [Moles/Vol] 98 mmol/L 98 - 10 7 mmol/L [facility] CO2 [Moles/Vol] 28 mmol/L 20 - 31 mmol/L [facility] Creatinine [Mass/Vol] 0.52 mg/dL 0.50 - 0.90 mg/dL [facility] GFR/1.73 sq M.predicted MDRD (S/P/Bld) [Vol rate/Area] - PINF [facility] Comment on above: Effective Apr 04, [...] [Mass/Vol] 88 mg/dL 70 - 99 mg/dL [facility] Interpretation and review of laboratory results Abnormal [facility] Potassium [Moles/Vol] 3.9 mmol/L 3.7 - 5.3 mmol/L [facility] Sodium [Moles/Vol] 134 mmol/L Low 135 - 144 mmol/L [facility] Urea nitrogen (BldV) [Mass/Vol] 6 mg/dL 6 - 20 mg/dL [facility] CBC with Auto Differentialon 06-29-2022 Absolute Eos # 0.13 [place] [facility] Absolute Immature Granulocyte 0.09 [facility] Absolute Lymph # 3.01 [facility] Absolute Avery # 1.19 [facility] Basophils (Bld) [#/Vol] 0.07 10*3/uL [facility] Basophils/100 WBC (Bld) 1 % 0 - 2 % [facility] Eosinophils/100 WBC (Bld) 1 % 1 - 4 % [facility] Hematocrit (Bld) [Volume fraction] 30.2 % Low 36.3 - 47.1 % [facility] Hemoglobin (Bld) [Mass/Vol] 9.1 g/dL Low 11.9 - 15.1 g/dL [facility] Immature granulocytes/100 WBC (Bld) 1 % High 0 [facility] Interpretation and review of laboratory results Abnormal [facility] Lymphocytes/100 WBC (Bld) 25 % 24 - 43 % [facility] MCH (RBC) [Entitic mass] 26.6 pg 25.2 - 33.5 pg [facility] MCHC (RBC) [Mass/Vol] 30.1 g/dL 28.4 - 34.8 g/dL [facility] MCV (RBC) [Entitic vol] 88.3 fL 82.6 - 102.9 fL [facility] Monocytes/100 WBC (Bld) 10 % 3 - 12 % [facility] NRBC Automated 0.0 0.0 per 100 WBC [facility] Platelet distribution width (Bld) [Ratio] 13.6 % 11.8 - 14.4 % [facility] Platelet mean volume (Bld) [Entitic vol] 9.7 fL 8.1 - 13.5 fL [facility] Platelets (Bld) [#/Vol] 261 10*3/uL [facility] RBC (Bld) [#/Vol] 3.42 10*6/uL Low 3.95 - 5.1 1 m/uL [facility] Segmented neutrophils/100 WBC (Bld) 62 % 36 - 65 % [facility] Segs Absolute 7.34 [facility] WBC (Bld) [#/Vol] 11.8 10*3/uL High [facility] Magnesiumon 06-29-2022 Magnesium [Mass/Vol] 1.8 mg/dL 1.6 - 2 .6 mg/dL [facility] No Panel Informationon 06-29 [facility] POC Glucose Fingerstickon Glucose [Mass/Vol] 100 mg/dL 65 - 105 mg/dL [facility] Phosphoruson 06-29-2022 Phosphate [Mass/Vol] 3.4 mg/dL 2.6 - 4 .5 mg/dL [facility] Basic Metabolic Panelon 12-2 Anion gap [Moles/Vol] 7 mmol/L Low 9 - 17 mmol/L [facility] Calcium [Mass/Vol] 8.0 mg/dL Low 8.6 - 10. 4 mg/dL [facility] Chloride [Moles/Vol] 99 mmol/L 98 - 10 7 mmol/L [facility] CO2 [Moles/Vol] 28 mmol/L 20 - 31 mmol/L [facility] Creatinine [Mass/Vol] 0.55 mg/dL 0.50 - 0.90 mg/dL [facility] GFR/1.73 sq M.predicted MDRD (S/P/Bld) [Vol rate/Area] - PINF [facility] Comment on above: Effective Apr 04, [...] 100 mg/dL High 70 - 99 mg/dL [facility] Interpretation and review of laboratory results Abnormal [facility] Potassium [Moles/Vol] 3.7 mmol/L 3.7 - 5.3 mmol/L [facility] Sodium [Moles/Vol] 134 mmol/L Low 135 - 144 mmol/L [facility] Urea nitrogen (BldV) [Mass/Vol] 6 mg/dL 6 - 20 mg/dL [facility] CBC with Auto Differentialon 06-28-2022 Absolute Eos # 0.00 [place] [facility] Absolute Immature Granulocyte 0.00 [facility] Absolute Lymph # 3.54 [facility] Absolute Avery # 0.92 High [facility] Basophils (Bld) [#/Vol] 0.00 10*3/uL [facility] Basophils/100 WBC (Bld) 0 % 0 - 2 % [facility] Eosinophils/100 WBC (Bld) 0 % Low 1 - 4 % [facility] Hematocrit (Bld) [Volume fraction] 29.4 % Low 36.3 - 47.1 % [facility] Hemoglobin (Bld) [Mass/Vol] 9.0 g/dL Low 11.9 - 15.1 g/dL [facility] Immature granulocytes/100 WBC (Bld) 0 % 0 [facility] Interpretation and review of laboratory results Abnormal [facility] Lymphocytes/100 WBC (Bld) 27 % 24 - 44 % [facility] MCH (RBC) [Entitic mass] 26.5 pg 25.2 - 33.5 pg [facility] MCHC (RBC) [Mass/Vol] 30.6 g/dL 28.4 - 34.8 g/dL [facility] MCV (RBC) [Entitic vol] 86.5 fL 82.6 - 102.9 fL [facility] Monocytes/100 WBC (Bld) 7 % 1 - 7 % [facility] Morphology Isaías (Bld) [Interp] Normal [facility] NRBC Automated 0.0 0.0 per 100 WBC [facility] Platelet distribution width (Bld) [Ratio] 13.7 % 11.8 - 14.4 % [facility] Platelet mean volume (Bld) [Entitic vol] 10.1 fL 8.1 - 13.5 fL [facility] Platelets (Bld) [#/Vol] 265 10*3/uL [facility] RBC (Bld) [#/Vol] 3.40 10*6/uL Low 3.95 - 5.1 1 m/uL [facility] Segmented neutrophils/100 WBC (Bld) 66 % 36 - 66 % [facility] Segs Absolute 8.64 High [facility] WBC (Bld) [#/Vol] 13.1 10*3/uL High [facility] Culture, Urineon 06-28-2022 Bacteria identified Cx Nom (U) NO GROWTH [facility] Specimen Description .INDWELLING CATH URINE [facility] EKG 12 LeadOrdered By: Unkno wn Result on 06-28-2022 Atrial Rate 118 BPM [facility] P [place] 54 degrees [facility] P-R Interval 162 ms [facility] Q-T Interval 322 ms [facility] QRS Duration 96 ms [facility] QTc Calculation (Bazett) 451 ms [facility] R [place] 61 degrees [facility] T [place] 29 degrees [facility] Ventricular Rate 118 BPM [facility] EKG 12 Leadon 06-28-2022 Sinus tachycardia Otherwise normal ECG [facility] Result, Unknown Provider - 06/28/2022 Sinus tachycardia Otherwise normal ECG [facility] Work Phone: Hemoglobin and Hematocriton 06-28-2022 Hematocrit (Bld) [Volume fraction] 29.4 % Low 36.3 - 47.1 % [facility] Hemoglobin (Bld) [Mass/Vol] 9.3 g/dL Low 11.9 - 15.1 g/dL [facility] Interpretation and review of laboratory results Abnormal [facility] Magnesiumon 06-28-2022 Magnesium [Mass/Vol] 1.6 mg/dL 1.6 - 2 .6 mg/dL [facility] No Panel Informationon 06-28 [facility] Phosphoruson 06-28-2022 Phosphate [Mass/Vol] 2.6 mg/dL 2.6 - 4 .5 mg/dL [facility] Basic Metabolic Panelon 06-03 Anion gap [Moles/Vol] 9 mmol/L 9 - 17 mmol/L [facility] Calcium [Mass/Vol] 8.1 mg/dL Low 8.6 - 10. 4 mg/dL [facility] Chloride [Moles/Vol] 101 mmol/L 98 - 10 7 mmol/L [facility] CO2 [Moles/Vol] 26 mmol/L 20 - 31 mmol/L [facility] Creatinine [Mass/Vol] 0.6 mg/dL 0.50 - 0.90 mg/dL [facility] GFR/1.73 sq M.predicted MDRD (S/P/Bld) [Vol rate/Area] - PINF [facility] Comment on above: Effective Apr 04, [...] [Mass/Vol] 95 mg/dL 70 - 99 mg/dL [facility] Interpretation and review of laboratory results Abnormal [facility] Potassium [Moles/Vol] 3.7 mmol/L 3.7 - 5.3 mmol/L [facility] Sodium [Moles/Vol] 136 mmol/L 135 - 144 mmol/L [facility] Urea nitrogen (BldV) [Mass/Vol] 11 mg/dL 6 - 20 mg/dL [facility] CBC with Auto Differentialon 06-27-2022 Absolute Eos # 0.03 [place] [facility] Absolute Immature Granulocyte 0.08 [facility] Absolute Lymph # 3.26 [facility] Absolute Avery # 1.47 High [facility] Basophils (Bld) [#/Vol] 0.04 10*3/uL [facility] Basophils/100 WBC (Bld) 0 % 0 - 2 % [facility] Eosinophils/100 WBC (Bld) 0 % Low 1 - 4 % [facility] Hematocrit (Bld) [Volume fraction] 33.0 % Low 36.3 - 47.1 % [facility] Hemoglobin (Bld) [Mass/Vol] 9.9 g/dL Low 11.9 - 15.1 g/dL [facility] Immature granulocytes/100 WBC (Bld) 1 % High 0 [facility] Interpretation and review of laboratory results Abnormal [facility] Lymphocytes/100 WBC (Bld) 23 % Low 24 - 43 % [facility] MCH (RBC) [Entitic mass] 26.1 pg 25.2 - 33.5 pg [facility] MCHC (RBC) [Mass/Vol] 30.0 g/dL 28.4 - 34.8 g/dL [facility] MCV (RBC) [Entitic vol] 87.1 fL 82.6 - 102.9 fL [facility] Monocytes/100 WBC (Bld) 10 % 3 - 12 % [facility] NRBC Automated 0.0 0.0 per 100 WBC [facility] Platelet distribution width (Bld) [Ratio] 13.9 % 11.8 - 14.4 % [facility] Platelet mean volume (Bld) [Entitic vol] 9.7 fL 8.1 - 13.5 fL [facility] Platelets (Bld) [#/Vol] 283 10*3/uL [facility] RBC (Bld) [#/Vol] 3.79 10*6/uL Low 3.95 - 5.1 1 m/uL [facility] Segmented neutrophils/100 WBC (Bld) 65 % 36 - 65 % [facility] Segs Absolute 9.21 High [facility] WBC (Bld) [#/Vol] 14.1 10*3/uL High [facility] Hemoglobin and Hematocriton 06-27-2022 Hematocrit (Bld) [Volume fraction] 30.3 % Low 36.3 - 47.1 % [facility] Hemoglobin (Bld) [Mass/Vol] 9.3 g/dL Low 11.9 - 15.1 g/dL [facility] Interpretation and review of laboratory results Abnormal [facility] Hematocrit (Bld) [Volume fraction] 32.0 % Low 36.3 - 47.1 % [facility] Hemoglobin (Bld) [Mass/Vol] 9.9 g/dL Low 11.9 - 15.1 g/dL [facility] Interpretation and review of laboratory results Abnormal [facility] Hematocrit (Bld) [Volume fraction] 38.7 % 36.3 - 47.1 % [facility] Hemoglobin (Bld) [Mass/Vol] 11.9 g/dL 11.9 - 15.1 g/dL [facility] Magnesiumon 06-27-2022 Magnesium [Mass/Vol] 1.8 mg/dL 1.6 - 2 .6 mg/dL [facility] Microscopic Urinalysison Casts UA 5 TO 10 HYALINE Reference range defined for non-centrifuged specimen. [facility] Epithelial Cells UA 2 TO 5 [facility] RBC, UA 2 TO 5 [facility] Comment on above: Reference range defi alexys for non-centrifuged specimen. WBC, UA 2 TO 5 [facility] No Panel Informationon 06-27 [facility] Phosphoruson 06-27-2022 Phosphate [Mass/Vol] 3.1 mg/dL 2.6 - 4 .5 mg/dL [facility] Urinalysison 06-27-2022 Bilirubin Urine Negative NEGATIVE [facility] Color, UA Yellow Yellow [facility] Glucose, Ur Negative NEGATIVE [facility] Interpretation and review of laboratory results Abnormal [facility] Ketones Ql (U) SMALL Abnormal NEGATIVE [facility] Leukocyte esterase Test strip Ql (U) Negative NEGATIVE [facility] Nitrite, Urine Negative NEGATIVE [facility] pH, UA 5.5 5.0 - 8.0 [facility] Protein, UA TRACE Abnormal NEGATIVE [facility] Specific [place], UA 1.026 1.005 - 1.030 [facility] Turbidity UA Clear Clear [facility] Urine Hgb Negative NEGATIVE [facility] Urobilinogen, Urine Normal Normal [facility] BASIC METABOLIC PROFILE Johnathan 06-26-2022 Anion gap [Moles/Vol] 14.4 mmol/L [facility] Calcium [Mass/Vol] 9.9 mg/dL 8.4 - 10. 2 mg/dL [facility] Chloride [Moles/Vol] 103 mmol/L [facility] CO2 [Moles/Vol] 23 mmol/L [facility] Creatinine [Mass/Vol] 0.8 mg/dL 0.4 - 1.1 mg/dL [facility] GFR/1.73 sq M.predicted MDRD (S/P/Bld) [Vol rate/Area] mL/min/{1.73_m2} [facility] Comment on above: Estimated Glomerular filtration Rate Reference Ranges: GFR, mL/min/1.73m2 >= 60 Adequate 30 - 59 Moderately decreased GFR 15 - 29 Severely decreased GFR <18 Kidney failure (or dialysis) GFR calculated using abbreviated MDRD formula. MDRD equation not suitable for patients who are under 18, have unstable creatinine concentrations Glucose [Mass/Vol] 126 mg/dL 70 - 126 mg/dL [facility] Comment on above: Reference Range for FASTING patients is 70-100 mg/dL Interpretation and review of laboratory results Abnormal [facility] Potassium [Moles/Vol] 3.4 mmol/L Low [facility] Sodium [Moles/Vol] 137 mmol/L [facility] Urea nitrogen [Mass/Vol] 11 mg/dL 7 - 22 mg/dL [facility] Basic Metabolic Profile Johnathan 06-26-2022 Anion gap [Moles/Vol] 14.4 mmol/L Normal 10.0-20.0 [facility] Comment on above: Performed By: #### 1 [id number] #### [facility] [address] [place] [address] Calcium [Mass/Vol] 9.9 mg/dL Normal 8.4-10.2 [facility] Comment on above: Performed By: #### 1 [id number] #### [facility] [address] [place] [address] Chloride [Moles/Vol] 103 mmol/L Normal 98-107 [facility] Comment on above: Performed By: #### 1 [id number] #### [facility] [address] [place] [address] CO2 [Moles/Vol] 23 mmol/L Normal 22-31 [facility] Comment on above: Performed By: #### 1 [id number] #### [facility] [address] [place] [address] Creatinine [Mass/Vol] 0.8 mg/dL Normal 0.4-1.1 [facility] Comment on above: Performed By: #### 1 [id number], [id number], [id number] #### [facility] [address] [place] [address] GFR/1.73 sq M.predicted among non-blacks MDRD (S/P/Bld) [Vol rate/Area] mL/min/{1.73_m2} Normal [facility] Comment on above: Result Comment: Ana mated Glomerular filtration Rate Reference Ranges: GFR, mL/min/1.73m2 >= 60 Adequate 30 - 59 Moderately decreased GFR 15 - 29 Severely decreased GFR <18 Kidney failure (or dialysis) GFR calculated using abbreviated MDRD formula. MDRD equation not suitable for patients who are under 18, have unstable creatinine concentrations Performed By: #### 1 [id number], [id number], [id number] #### [facility] [address] [place] [address] Glucose [Mass/Vol] 126 mg/dL Normal 70-126 [facility] Comment on above: Result Comment: Refe rence Range for FASTING patients is 70-100 mg/dL Performed By: #### 1 [id number], , [id number] #### [facility] [address] [place] [address] Potassium [Moles/Vol] 3.4 mmol/L Low 3.5-5.1 [facility] Comment on above: Performed By: #### 1 [id number], [id number], [id number] #### [facility] [address] [place] [address] Sodium [Moles/Vol] 137 mmol/L Normal 136-145 [facility] Comment on above: Performed By: #### 1 [id number], [id number], [id number] #### [facility] [address] [place] [address] Urea nitrogen [Mass/Vol] 11 mg/dL Normal 7-22 [facility] Comment on above: Performed By: #### 1 [id number], [id number], [id number] #### [facility] [address] [place] [address] Blood Gas, Venouson 06-26-20 Carboxyhemoglobin 1.3 % 0 - 5 % [facility] Comment on above: Reference Range: Non-Smokers 0-2% Average Smoker 2-4% Heavy Smoker <10% FIO2 INFORMATION NOT PROVIDED [facility] HCO3 (Bld) [Moles/Vol] 24.3 mmol/L 24 - 30 mmol/L [facility] Negative Base Excess, [place] 1.1 mmol/L 0.0 - 2.0 mmol/L [facility] Oxygen saturation in Blood 66.8 % 60.0 - 85.0 % [facility] pCO2, [place] 45.5 [facility] pH, [place] 7.346 7.320 - 7.420 [facility] pO2, [place] 35.7 [facility] Pt Temp 37.0 [facility] CBC, EDIF, PLATELETon 2021 Basophils/100 WBC (Bld) 1.0 % 0.0 - 3.0 % [facility] Eosinophils/100 WBC (Bld) 0.0 % 0.0 - 4.0 % [facility] Erythrocyte distribution width (RBC) [Ratio] 13.9 % 11.5 - 14.5 % [facility] Hematocrit (Bld) [Volume fraction] 44.8 % 37.0 - 47.0 % [facility] Hemoglobin (Bld) [Mass/Vol] 14.6 g/dL 12.0 - 16.0 g/dL [facility] Interpretation and review of laboratory results Abnormal [facility] Lymphocytes/100 WBC (Bld) 2.9 % Low 17.6 - 49.6 % [facility] MCH (RBC) [Entitic mass] 26.1 pg Low 28.0 - 32.0 pg [facility] MCHC (RBC) [Mass/Vol] 32.6 g/dL Low 33.0 - 37.0 g/dL [facility] MCV (RBC) [Entitic vol] 80.1 fL Low 81.0 - 99.0 fL [facility] Monocytes/100 WBC (Bld) 2.6 % Low 4.1 - 12.4 % [facility] Neutrophils/100 WBC (Bld) 93.5 % High 39.4 - 72.5 % [facility] Platelets (Bld) [#/Vol] 398 10*3/uL [facility] Platelets LM Ql (Bld) ADEQUATE ADEQUATE [facility] RBC (Bld) [#/Vol] 5.59 10*6/uL High [facility] RBC morphology finding Nom (Bld) NORMAL NORMAL [employer] SCAN SLIDE YES NO [employer] WBC (Bld) [#/Vol] 22.7 10*3/uL High W-21 CT CERVICAL SPINE WO DIVYA Ton 06-26-2022 1. Reversal of the cervical lordosis. 2. No acute vertebral body height loss in the cervical spine. [facility] CONSOLIDATED EXAMINATION: CT OF THE CERVICAL SPINE [...] There is no prevertebral soft tissue swelling. [facility] Melo Persaud MD - 06/26/2022 [...] body height loss in the cervical spine. [employer] Phone: CT CERVICAL SPINE WO CONTRAS TOrdered By: Melo Persaud on 06-26-2022 [facility] Phone: CT CHEST ABDOMEN PELVIS W CO [...] to be communicated to a licensed caregiver. [facility]IS CONSOLIDATED EXAMINATION: CT OF THE CHEST, [...] to be communicated to a licensed caregiver. [facility] [employer] Work Phone: [facility] [employer] Work Phone: CT HEAD WO CONTRASTon 2021 1. No acute intracranial abnormality. 2. Mucosal thickening with fluid in the left sphenoid sinus. [facility] CONSOLIDATED EXAMINATION: CT OF THE HEAD WITHOUT [...] of the visualized skull or soft tissues. [facility] Miguel Ángel Baer MD - 06/26/2022 EXAMINATION: CT OF THE [...] with fluid in the left sphenoid sinus. [facility] Phone: CT HEAD WO CONTRASTOrdered B y: Miguel Ángel Baer on 06-26-2022 [facility] Phone: CT Lumbar spine WO contrasto n [...] by: Jovan Hernandez MD 06/26/2022 12:20 AM [facility] Jovan Hernandez MD - 06/26/2022 PROCEDURE: CT SPINE LUMBAR [...] by: Jovan Hernandez MD 06/26/2022 12:20 AM [facility] [employer] Phone: Radiology Study observation (narrative) [facility] [employer] Phone: CT Lumbar spine WO contrastO rdered By: Jovan Hernandez on 06-26-2022 [facility] Phone: Complete Blood Counton 06-26 Basophils/100 WBC (Bld) 1.0 % Normal 0.0-3.0 [facility] Comment on above: Performed By: #### 1 [id number], [id number], [id number] #### [facility] [address] [place] [address] Eosinophils/100 WBC (Bld) 0.0 % Normal 0.0-4.0 [facility] Comment on above: Performed By: #### 1 [id number], [id number], [id number] #### [facility] [place] [address] Erythrocyte distribution width (RBC) [Ratio] 13.9 % Normal 11.5-14.5 [facility] Comment on above: Performed By: #### 1 [id number], [id number], [id number] #### [facility] [address] [place] [address] Hematocrit (Bld) [Volume fraction] 44.8 % Normal 37.0-47.0 [facility] Comment on above: Performed By: #### 1 [id number], , [id number] #### [facility] [address] [place] [address] Hemoglobin (Bld) [Mass/Vol] 14.6 g/dL Normal 12.0-16.0 [facility] Comment on above: Performed By: #### 1 [id number], , [id number] #### [facility] [address] [place] [address] Lymphocytes/100 WBC (Bld) 2.9 % Low 17.6-49.6 [facility] Comment on above: Performed By: #### 1 [id number], , [id number] #### [facility] [address] [place] [address] MCH (RBC) [Entitic mass] 26.1 pg Low 28.0-32.0 [facility] Comment on above: Performed By: #### 1 [id number], , [id number] #### [facility] [address] [place] [address] MCHC (RBC) [Mass/Vol] 32.6 g/dL Low 33.0-37.0 [facility] Comment on above: Performed By: #### 1 [id number], , [id number] #### [facility] [address] [place] [address] MCV (RBC) [Entitic vol] 80.1 fL Low 81.0-99.0 [facility] Comment on above: Performed By: #### 1 [id number], , [id number] #### [facility] [address] [place] [address] Monocytes/100 WBC (Bld) 2.6 % Low 4.1-12.4 [facility] Comment on above: Performed By: #### 1 [id number], , [id number] #### [facility] [address] [place] [address] MORPH NORMAL Normal NORMAL [facility] Comment on above: Performed By: #### 1 [id number], [id number], [id number] #### [facility] [address] [place] [address] Neutrophils/100 WBC (Bld) 93.5 % High 39.4-72.5 [facility] Comment on above: Performed By: #### 1 [id number], [id number], [id number] #### [facility] [address] [place] [address] PLT 398 thou/cumm Normal 130-400 [facility] Comment on above: Performed By: #### 1 [id number], [id number], [id number] #### [facility] [address] [place] [address] PLTE ADEQUATE Normal ADEQUATE [facility] Comment on above: Performed By: #### 1 [id number], [id number], [id number] #### [facility] [address] [place] [address] RBC 5.59 mil/cumm High 4.20-5.40 [facility] Comment on above: Performed By: #### 1 [id number], [id number], [id number] #### [facility] [address] [place] [address] SCAN YES Normal NO [facility] Comment on above: Performed By: #### 1 [id number], [id number], [id number] #### [facility] [address] [place] [address] WBC 22.7 thou/cumm High 4.8-10.8 [facility] Comment on above: Performed By: #### 1 [id number], [id number], [id number] #### [facility] [address] [place] [address] FLUORO FOR SURGICAL PROCEDUR ESon 06-26-2022 Radiology exam is complete. No Radiologist dictation. Please follow up with ordering provider. [facility] Radiology exam is complete. No Radiologist dictation. Please follow up with ordering provider. [facility] HCG ( test) Qlon BETA HCG (QUAL), SERUM Negative [facility] LACTATE, BLOODon 06-26-2022 Interpretation and review of laboratory results Abnormal [facility] Lactate [Moles/Vol] 4.2 mmol/L Critically high 0.5 - 2.2 mmol/L [facility] Lactic Acidon 06-26-2022 LAC 4.2 mmol/L Critically high 0.5-2.2 [facility] Comment on above: Order Comment: Criti aakash result called to Mayelin Mcclure RN at 02:16 on 06/26/2022 by LINDY Carrera Anne. Results were read back to caller. (LAC) Performed By: #### 1 [id number], [id number] #### [facility] [place] [address] Lamotrigine Levelon 06-26-20 Interpretation and review of laboratory results Abnormal [facility] Lamotrigine Lvl <1.0 Low 3.0 - 15.0 ug/mL [facility] Comment on above: Neither a therapeutic [...] Multiple measurements of lamotrigine may be needed. [facility] No Panel Informationon 06-26 THORACIC SPINE: [...] and mild acute compression deformity of T12. [facility] CONSOLIDATED EXAMINATION: CT OF THE THORACIC SPINE [...] SOFT TISSUES: No paraspinal mass is seen. [facility] CONSOLIDATED Melo Persaud MD - 06/26/2022 [...] and mild acute compression deformity of T12. [facility] [employer] Work Phone: [facility] [employer] Work Phone: Acute burst fracture of L1 with [...] at 3:19 p.m. on June 26, 2022. [facility] RIS CONSOLIDATED EXAMINATION: MRI OF THE THORACIC [...] remainder of the thoracic and lumbar spine. [facility] Esvin Syed MD - 06/26/2022 [...] at 3:19 p.m. on June 26, 2022. [employer] Work Phone: Radiology Study observation (narrative) [employer] Work Phone: Radiology Study observation (narrative) [employer] Work Phone: Radiology Study observation (narrative) [employer] Work Phone: [facility] No Panel InformationOrdered By: Esvin Syed on 06-26-2022 [employer] Work Phone: Test, Serumon 06-03 SHCG Negative Normal [facility] Comment on above: Performed By: #### 1 [id number], [id number], [id number] #### [facility] [address] [place] [address] TRAUMA PANELon 06-26-2022 Oscar Test NO SAMPLE RECEIVED [facility] [employer] Anion gap [Moles/Vol] 15 mmol/L 9 - 17 mmol/L [facility] aPTT Coag (Bld) [Time] 24.7 s [facility] [employer] Comment on above: IV Heparin Therapy Range: 48.6-77.8 Blood Bank Specimen BILL FOR SERVICES PERFORMED [facility] [employer] Carboxyhemoglobin NO SAMPLE RECEIVED % [facility] Chloride [Moles/Vol] 98 mmol/L 98 - 10 7 mmol/L [facility] CO2 [Moles/Vol] 22 mmol/L 20 - 31 mmol/L [facility] Creatinine [Mass/Vol] 0.77 mg/dL 0.50 - 0.90 mg/dL [facility] Ethanol [Mass/Vol] mg/dL NINF - 10 mg/dL [facility] Ethanol percent <0.010 NINF - 0.010 % [facility] FIO2 NO SAMPLE RECEIVED [facility] [employer] GFR/1.73 sq M.predicted MDRD (S/P/Bld) [Vol rate/Area] - PINF [facility] Comment on above: Effective Apr 04, 2022 [...] 135 mg/dL High 70 - 99 mg/dL [facility] [employer] hCG Qual Negative NEGATIVE [facility] Comment on above: Specimens with hCG l evels near the threshold of the test (25 mIU/mL) may give a negative or indeterminate result. In such cases, another test should be performed with a new specimen in 48-72 hours. If early is suspected clinically in this setting, correlation with quantitative serum b-hCG level is suggested. [employer] has confirmed the use of plasma for this test. This has not been cleared or approved by the U.S. Food and Drug Administration. The FDA has determined that such clearance is not necessary. HCO3, Venous NO SAMPLE RECEIVED 24.0 - 30 .0 mmol/L [employer] Hematocrit (Bld) [Volume fraction] 44.3 % 36.3 - 47.1 % [facility] Hemoglobin (Bld) [Mass/Vol] 14.2 g/dL 11.9 - 15.1 g/dL [facility] INR Coag (Bld) [Relative time] 1.1 {INR} [facility] Comment on above: Therapeutic Range: Moderate Anticoagulant Intensity: INR = 2.0-3.0 High Anticoagulant Intensity: INR = 2.5-3.5 Interpretation and review of laboratory results Abnormal [facility] MCH (RBC) [Entitic mass] 26.6 pg 25.2 - 33.5 pg [employer] MCHC (RBC) [Mass/Vol] 32.1 g/dL 28.4 - 34.8 g/dL [facility] MCV (RBC) [Entitic vol] 83.0 fL 82.6 - 102.9 fL [facility] Methemoglobin NO SAMPLE RECEIVED % [facility] [employer] Mode NO SAMPLE RECEIVED [facility] [employer] Negative Base Excess, [place] NO SAMPLE RECEIVED 0.0 - 2.0 mmol/L [facility] NOTIFICATION NO SAMPLE RECEIVED [facility] NOTIFICATION TIME NO SAMPLE RECEIVED [facility] NRBC Automated 0.0 0.0 per 100 WBC [facility] O2 Device/Flow/% NO SAMPLE RECEIVED [facility] O2 Sat, [place] NO SAMPLE RECEIVED % [facility] Oxyhemoglobin NO SAMPLE RECEIVED 95.0 - 98.0 % [facility] pCO2, [place] NO SAMPLE RECEIVED [facility] [employer] pCO2, [place], Temp Adj NO SAMPLE RECEIVED [facility] Peep/Cpap NO SAMPLE RECEIVED [facility] [employer] pH, [place] NO SAMPLE RECEIVED 7.320 - 7.420 [facility] pH, [place], Temp Adj NO SAMPLE RECEIVED 7.320 - 7. 420 [facility] [employer] Platelet distribution width (Bld) [Ratio] 13.8 % 11.8 - 14.4 % [employer] Platelet mean volume (Bld) [Entitic vol] 10.5 fL 8.1 - 13.5 fL [employer] Platelets (Bld) [#/Vol] 393 10*3/uL [facility] pO2, [place] NO SAMPLE RECEIVED [facility] pO2, [place], Temp Adj NO SAMPLE RECEIVED [facility] [employer] Positive Base Excess, [place] NO SAMPLE RECEIVED 0.0 - 2.0 mmol/L [employer] Potassium [Moles/Vol] 4.1 mmol/L 3.7 - 5.3 mmol/L [employer] Comment on above: SPECIMEN MODERATELY HEMOLYZED, RESULTS MAY BE ADVERSELY AFFECTED PSV NO SAMPLE RECEIVED [facility] [employer] PT Coag (PPP) [Time] 11.5 s [facility] Pt Temp NO SAMPLE RECEIVED [facility] [employer] Pt. Position NO SAMPLE RECEIVED [facility] RBC (Bld) [#/Vol] 5.34 10*6/uL High 3.95 - 5.1 1 m/uL [facility] Respiratory Rate NO SAMPLE RECEIVED [facility] Sample Site NO SAMPLE RECEIVED [facility] [employer] Set Rate NO SAMPLE RECEIVED [facility] Sodium [Moles/Vol] 135 mmol/L 135 - 144 mmol/L [facility] Text for Respiratory NO SAMPLE RECEIVED [facility] Total Hb NO SAMPLE RECEIVED 12.0 - 16 .0 g/dl [facility] Total Rate NO SAMPLE RECEIVED [facility] Urea nitrogen (BldV) [Mass/Vol] 9 mg/dL 6 - 20 mg/dL [facility] VT NO SAMPLE RECEIVED [facility] WBC (Bld) [#/Vol] 24.2 10*3/uL High [facility] TROPONINon 06-26-2022 Interpretation and review of laboratory results Abnormal [facility] Troponin High Sensitivity 209.90 ng/L Critically high 0.00 - 15.00 ng/L [facility] Comment on above: Clear elevation of T roponin I, High Sensitivity consistent with myocardial injury or infarction. Interpretation is highly dependent on clinical presentation and patient history. New troponin elevations are concerning and urgent assessment in an emergency department may be indicated in the appropriate clinical context. [facility] TYPE AND SCREENon 06-26-2022 ABO/Rh Positive [facility] Arm Band Number BE [id number] [facility] Expiration Date 06/29/2022,2359 [facility] Troponin-HSon 06-26-2022 TROP-HS 209.90 ng/L Critically high 0.00-15.00 [facility] Comment on above: Order Comment: Criti aakash [...] appropriate clinical context. Performed By: #### 1 [id number], [id number] #### [facility] [address] [place] [id number] LAMOTRIGINEon 06-07-2022 Lamotrigine, Serum 3.0 ug/mL Normal 2.0-20.0 [facility] Comment on above: Result Comment: Dete ction Limit = 1.0 Performed By: #### L KESHAWN #### [facility] [address] [address] [address] Mary Jo Charles PROGESTERONEon 01-13-2022 Progesterone 0.1 ng/mL Normal [facility] Comment on above: Result Comment: Foll icular phase 0.1 - 0.9 Luteal phase 1.8 - 23.9 Ovulation phase 0.1 - 12.0 First trimester 11.0 - 44.3 Second trimester 25.4 - 83.3 Third trimester 58.7 - 214.0 Postmenopausal 0.0 - 0.1 Performed By: #### P BETZAIDA #### [facility] [address] [address] [address] Mary Jo Charles ACETAMINOPHEN LEVELon 2018 Acetaminophen [Mass/Vol] <10 10 - 30 ug/mL [facility] ALCOHOL (ETHANOL),BLOODon Ethanol [Mass/Vol] mg/dL 0 - 10 mg/dL [facility] Comment on above: ETOH: % = MG/DL DIVIDED BY 1000 CBC, EDIF, PLATELETon 2018 Erythrocyte distribution width (RBC) [Ratio] 15.0 % High 11.5 - 14.5 % [facility] Hematocrit (Bld) [Volume fraction] 44.5 % 37 - 47 % [facility] Hemoglobin (Bld) [Mass/Vol] 13.5 g/dL 12 - 16 g/dL [facility] Interpretation and review of laboratory results Abnormal [facility] MCH (RBC) [Entitic mass] 24.0 pg Low 28 - 32 pg [facility] MCHC (RBC) [Mass/Vol] 30.3 g/dL Low 33 - 37 g/dL [facility] [employer] MCV (RBC) [Entitic vol] 79.3 fL Low 81 - 99 fL [facility] Platelets (Bld) [#/Vol] 461 10*3/uL High [facility] Platelets LM Ql (Bld) INCREASED ADEQUATE [facility] RBC (Bld) [#/Vol] 5.61 10*6/uL High [facility] [employer] RBC morphology finding Nom (Bld) NORMAL NORMAL [facility] SCAN SLIDE NO NO [facility] WBC corrected for nucl RBC Auto (Bld) [#/Vol] 11.6 High [facility] COMPREHENSIVE METABOLIC PROF CAMERON Mnan 10-22-2018 Albumin BCG dye [Mass/Vol] 4.5 g/dL 3.5 - 5 g/dL [facility] Albumin/Globulin [Mass ratio] 1.3 {ratio} [facility] ALP [Catalytic activity/Vol] 87 U/L 38 - 126 U/L [facility] ALT No additional P-5'-P [Catalytic activity/Vol] 123 U/L High 7 - 35 U/L [facility] Anion gap [Moles/Vol] 11.3 mmol/L [facility] AST [Catalytic activity/Vol] 43 U/L High 10 - 42 U/L [facility] Bilirubin [Mass/Vol] 0.7 mg/dL 0.3 - 1 .2 mg/dL [facility] Calcium [Mass/Vol] 9.2 mg/dL 8.4 - 10. 2 mg/dL [facility] Chloride [Moles/Vol] 105 mmol/L [facility] CO2 [Moles/Vol] 25 mmol/L [facility] Creatinine [Mass/Vol] 0.7 mg/dL 0.4 - 1.1 mg/dL [facility] GFR/1.73 sq M.predicted MDRD (S/P/Bld) [Vol rate/Area] mL/min/{1.73_m2} [facility] Comment on above: Estimated Glomerular filtration Rate Reference Ranges: GFR, mL/min/1.73m2 >= 60 Adequate 30 - 59 Moderately decreased GFR 15 - 29 Severely decreased GFR <18 Kidney failure (or dialysis) GFR calculated using abbreviated MDRD formula. MDRD equation not suitable for patients who are under 18, have unstable creatinine concentrations Globulin (S) [Mass/Vol] 3.6 g/dL High 2.9 - 3.3 g/dL [facility] Glucose [Mass/Vol] 114 mg/dL 70 - 126 mg/dL [facility] Potassium [Moles/Vol] 3.3 mmol/L Low [facility] Protein [Mass/Vol] 8.1 g/dL 6.4 - 8.3 g/dL [facility] Sodium [Moles/Vol] 138 mmol/L [facility] Urea nitrogen [Mass/Vol] 8 mg/dL 7 - 22 mg/dL [facility] [place] DRUGS OF ABUSE PROFILE, URIN Hermila 10-22-2018 Acetaminophen+Phenacet in Screen Ql (U) Negative NEG [facility] [place] Amphetamine cutoff Screen (U) [Mass/Vol] Positive NEG [facility] [place] Barbiturate Negative NEG [facility] Benzodiazepines Ql (U) Negative NEG [facility] [employer] Cannabinoids Screen Ql (U) Positive NEG [facility] [place] Cocaine Metabolite Negative NEG [facility] Methadone Confirm (Steven) [Mass/Vol] Negative NEG [facility] [place] Methamphetamine Confirm (Steven) [Mass/Vol] Positive NEG [facility] [place] Opiates Ql (U) Negative NEG [facility] Phencyclidine Ql (U) Negative NEG [facility] [place] TRICYCLIC ANTIDEPRESSANTS, URINE Negative NEG [facility] Comment on above: APAP- CUT-OFF CONCEN TRATION [...] Beta HCG ( test) Ql (U) Negative [facility] LITHIUM LEVELon 10-22-2018 Interpretation and review of laboratory results Abnormal [facility] [place] [Moles/Vol] mmol/L Low 0.6 - 1. 2 mmol/L [facility] Comment on above: Many variables influ ence therapeutic and toxic ranges; results should be interpreted in conjunction with clinical status of patient. MANUAL DIFFERENTIALon 2018 Band form neutrophils/100 WBC (Bld) 0 % 0 - 4 % [facility] Basophils/100 WBC (Bld) 0 % 0 - 3 % [facility] Blasts/100 WBC (Bld) 0 % 0 - 0 % [facility] [place] Eosinophils/100 WBC (Bld) 0 % 0 - 4 % [facility] Lymphocytes/100 WBC (Bld) 23 % 21 - 51 % [facility] Metamyelocytes/100 WBC (Bld) 0 % 0 - 0 % [facility] Monocytes/100 WBC (Bld) 6 % 0 - 13 % [facility] Myelocytes/100 WBC (Bld) 0 % 0 - 0 % [facility] Nucleated RBC/100 WBC (Bld) [Ratio] 0 % [facility] Promyelocytes/100 WBC (Bld) 0 % 0 - 0 % [facility] Segmented neutrophils/100 WBC (Bld) 71 % 42 - 75 % [facility] Otheron 10-22-2018 Interpretation and review of laboratory results Abnormal [facility] SALICYLATE LEVELon 9 Salicylates [Mass/Vol] mg/dL Low 10 - 30 mg/dL [facility] TSH W/ FREE T4on 10-22-2018 Free T4 [Mass/Vol] 1.04 ng/dL 0.61 - 1. 12 ng/dL [facility] TSH Qn 0.612 m[IU]/L [facility] U/A WITH MICROSCOPICon 10-22 Bacteria LM Ql (Urine sed) NONE SEEN NONE SEEN [facility] C & S INDICATED NO NO [facility] Casts LM.LPF (Urine sed) [#/Area] NONE SEEN NONE SEEN /lpf [facility] Epithelial cells.squamous LM.HPF (Urine sed) [#/Area] 3-5 NONE SEEN /hpf [facility] Mucus Ql (Urine sed) 1+ THREADS NONE SEEN [facility] RBC LM.HPF (Urine sed) [#/Area] 5-10 NONE SEEN /hpf [facility] Unidentified crystals LM Ql (Urine sed) NONE SEEN NONE SEEN [facility] WBC LM.HPF (Urine sed) [#/Area] 0-2 [facility] URINALYSIS WITH REFLEX CULTU REon 10-22-2018 Appearance (U) SL CLOUDY CLEAR [facility] BILIRUBIN, URINE DIPSTICK MODERATE NEGATIVE [facility] BLOOD, URINE DIPSTICK MODERATE NEGATIVE [facility] Color (U) YELLOW YELLOW [facility] GLUCOSE, URINE DIPSTICK Negative NEGATIVE mg/dL [facility] KETONES, URINE DIPSTICK 15 mg/dL NEGATIVE [facility] LEUKOCYTE ESTERASE, URINE DIPSTK Negative NEGATIVE [facility] Microscopic observation LM Nom (Urine sed) YES NO [facility] Nitrate Ql (U) Negative NEGATIVE [facility] PH, URINE DIPSTICK 6.0 [facility] Protein (U) [Mass/Vol] 30 mg/dL NEGATIVE [facility] SPECIFIC GRAVITY, URINE DIPSTICK 1.025 [facility] UROBILINOGEN, URINE DIPSTICK 1.0 [facility] Wound cult/smear, aeron 06-04 INR Coag RelTime (Bld) Gram stain result [...] <=16 S Trimethoprim/Sulfameth oxazole <=2/38 S Normal [facility] Comment on above: Order Comment: CHARLEY BUCKLEY INCISION CULTUREAdditional Instructions INCISION CULTURE Performed By: #### L 800.0100, L800.0300, L800.0400, L800.4806 ####Main Laboratory ([facility])[address] [place], [place] [phone] Nivar, MD Wound cult/smear, aeron Wound cult/smear, aer Gram stain result No WBC's seen Rare Gram positive cocci in pairs No pathogens isolated, normal skin tobias present. Normal [facility] Comment on above: Order Comment: INCIS IONAL INFECTION UNSPECIFIED BODY REGIONAdditional Instructions INCISIONAL INFECTION UNSPECIFIED BODY REGION Performed By: #### L 800.0100, L800.0300, L800.0400, L800.4806 ####Main Laboratory ([facility])[address] [place], [place] [phone] Nivar, MD Anesthesia Post-Op Evaluatio non 06-04-2018 Anesthesia Post-Op Evaluation [facility] Medical Records Patient: KAYLEEN K[address] 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 Pt states she is feeling much better. Entered by: Barbara Guzman CRNA on 05/31/18934 Report Signed by: Barbara Guzman CRNA on 05/31/18 0937 < > Co-Signed by: Troy Kelley MD on 06/04/18 0934 < > Normal [facility] Prog Not hermila 06-04-2018 Prog Note [facility] Medical Records Patient: [address] : 1995 [place] [id number] Location: [place] [address] Unit #: [id number] Prog Note Lenora Peña CNM Service Dt/Tm: 05/31/18 1810 - Subjective Patient doing well. Pain not well controlled. Mild Lochia. BBottlefeeding without difficulty. Leigh present. Passing flatus. - Objective Vital Signs: [...] post section. Day 1. Plan: D/C morphone UNDERGROUND DISTRIBUTION ENGINEER and switch to oral percocet. Get out of bed. Shower. D/C leigh. Supportive care, walking, pain medications, observation for bleeding. Entered by: Lenora Peña CNM on 05/31/181809 Report Signed by: Lenora Peña CNM on 05/31/181811 < > Co-Signed by: Audrey Rao MD on 06/04/18 0647 < > Normal [facility] CBC with Differentialon 05-04 Abs Baso Count 0 /cmm Normal 0-[address] [facility] Comment on above: Performed By: #### L 800.0100, L800.0300, L800.0400, L800.4806 ####[facility] ([facility])[address], [place] [phone] Nivar, MD Abs Eos Count 0 /cmm Normal 0-500 [facility] Comment on above: Performed By: #### L 800.0100, L800.0300, L800.0400, L800.4806 ####[facility] ([facility])[address], [place] [phone] Nivar, MD Abs Avery Count 1200 /cmm High 0-[address] [facility] Comment on above: Performed By: #### L 800.0100, L800.0300, L800.0400, L800.4806 ####[facility] ([facility])[address], [place] [phone] Nivar, MD Abs Neut Count 27267 /cmm High 8046-[address] [facility] Comment on above: Performed By: #### L 800.0100, L800.0300, L800.0400, L800.4806 ####[facility] ([facility])[address] [place], [place] [phone] Nivar, MD Basophils Auto #/vol (Bld) 0.2 % Normal 0-2 [facility] Comment on above: Performed By: #### L 800.0100, L800.0300, L800.0400, L800.4806 ####[facility] ([facility])[address], [place] [phone] Nivar, MD EOS-Auto Diff 0.2 % Normal 0-6 [facility] Comment on above: Performed By: #### L 800.0100, L800.0300, L800.0400, L800.4806 ####[facility] ([facility])[address] [place], [place] [phone] Nivar, MD Erythrocyte distribution width Auto Ratio (RBC) 13.5 % Normal 12.0-16.0 [facility] Comment on above: Performed By: #### L 800.0100, L800.0300, L800.0400, L800.4806 ####[facility] ([facility])[address], [place] [phone] Nivar, MD Hematocrit Auto Volume Fraction (Bld) 32.0 % Low 35.0-44.0 [facility] Comment on above: Performed By: #### L 800.0100, L800.0300, L800.0400, L800.4806 ####[facility] ([facility])[address], [place] [phone] Nivar, MD Hemoglobin mass conc (Bld) 10.3 g/dL Low 12.0-15.0 [facility] Comment on above: Performed By: #### L 800.0100, L800.0300, L800.0400, L800.4806 ####[facility] ([facility])[address], [place] [phone] Nivar, MD Hypochromasia 1+ Normal [facility] Comment on above: Performed By: #### L 800.0100, L800.0300, L800.0400, L800.4806 ####[facility] ([facility])[address], [place] [phone] Nivar, MD Lymphocytes Auto #/vol (Bld) 1700 /cmm Normal 4427-8231 [facility] Comment on above: Performed By: #### L 800.0100, L800.0300, L800.0400, L800.4806 ####[facility] ([facility])[address] [place], [place] [phone] Nivar, MD Lymphocytes/100 WBC Auto (Bld) 10.4 % Low 15-45 [facility] Comment on above: Performed By: #### L 800.0100, L800.0300, L800.0400, L800.4806 ####[facility] ([facility])[address] [place], [place] [phone] Nivar, MD MCH Auto Entitic mass (RBC) 26.4 pg Low 27.5-33.0 [facility] Comment on above: Performed By: #### L 800.0100, L800.0300, L800.0400, L800.4806 ####[facility] ([facility])[address] [place], [place] [phone] Nivar, MD MCHC Auto mass conc (RBC) 32.3 g/dL Low 33.0-36.0 [facility] Comment on above: Performed By: #### L 800.0100, L800.0300, L800.0400, L800.4806 ####[facility] ([facility])[address] [place], [place] [phone] Nivar, MD MCV Auto Entitic volume (RBC) 81.7 CU EHSAN Normal 80-97 [facility] Comment on above: Performed By: #### L 800.0100, L800.0300, L800.0400, L800.4806 ####[facility] ([facility])[address] [place], [place] [phone] Nivar, MD Avery- Auto Diff 7.4 % Normal 2-10 [facility] Comment on above: Performed By: #### L 800.0100, L800.0300, L800.0400, L800.4806 ####[facility] ([facility])[address] [place], [place] [phone] Nivar, MD Neut-Auto Diff 81.8 % High 40-[address] [facility] Comment on above: Performed By: #### L 800.0100, L800.0300, L800.0400, L800.4806 ####[facility] ([facility])[address] [place], [place] [phone] Nivar, MD NRBC-Auto 0.1 /100 WBC Normal <1 [facility] Comment on above: Performed By: #### L 800.0100, L800.0300, L800.0400, L800.4806 ####[facility] ([facility])[address], [place] [phone] Nivar, MD Platelets Auto #/vol (Bld) 302 th/cmm Normal 150-400 [facility] Comment on above: Performed By: #### L 800.0100, L800.0300, L800.0400, L800.4806 ####[facility] ([facility])[address], [place] [phone] Nivar, MD RBC Auto #/vol (Bld) 3.92 mil/cmm Low 4.00-5.10 [facility] Comment on above: Performed By: #### L 800.0100, L800.0300, L800.0400, L800.4806 ####[facility] ([facility])[address] [phone] Nivar, MD WBC Auto #/vol (Bld) 16.8 th/cmm High 4.4-10.5 [facility] Comment on above: Performed By: #### L 800.0100, L800.0300, L800.0400, L800.4806 ####[facility] Laboratory ([facility])[address], [place] [phone] Nivar, MD MRSA Screen,Nasal Rapidon Nasal MRSA Screen Negative Normal Negative [facility] Comment on above: Result Comment: Meth odology: Nucleic Acid Amplification (Polymerase Chain Reaction,PCR) Performed By: #### L 800.0100, L800.0300, L800.0400, L800.4806 ####Main Laboratory ([facility])[address], [place] [phone] Nivar, MD Procedure Note - Generalon 1 07-31-2017 Protein mass conc [facility] Medical Records Patient: KAYLEEN KOVACS [address] : 1995 [place], [place] [address] Location: OB [phone] Unit #: [id number] Procedure Note - General Audrey Rao ([facility]) Service Dt/Tm: 05/30/18 2300 PRE-OP DX: 37+6 WKS GESTATION GESTATIONAL HTN FAILURE TO PROGRESS ARREST OF DESCENT POST-OP DX: SAME PROCEDURE: PRIMARY LTCS SURGEON: DR. AUDREY RAO IVF 1300 CRYSTALLOID EBL 800 CC U/O 200 CC COMPLIC: NONE BABY: LIVE FEMALE INFANT, APGARS 8/8 , WT 6#0 PROCEDURE: AFTER [...] RECOVERY IN STABLE CONDITION. Entered by: Audrey Rao MD (LMA) on 05/30/18 0480 Report Signed by: Audrey Rao MD on 05/30/182307 < > Co-Signed by: on Normal [facility] APTTon 05-30-2018 aPTT Coag time (Bld) 25.9 Sec Normal 23.0-38.0 [facility] Comment on above: Order Comment: Is Pa tient receiving Heparin? No Result Comment: APTT of 50.5 to 78.0 secondsrepresents therapeutic rangefor heparin (unfractionated) for[facility].This corresponds to a heparinconcentration of 0.3 to 0.7 IU/ml. Performed By: #### L 800.0100, L800.0300, L800.0400, L800.4806 ####Main Laboratory ([facility])[address], [place] [phone] Nivar, MD History and Physicalon 05-30 History and Physical [facility] Medical Records Patient: KAYLEEN KOVACS [address] : 1995 [place], [place] [address] Location: OB [phone] Unit #: [id number] History and Physical Audrey Rao ([facility]) Service Date: 05/30/18 22 YO @ 37 6/7 WKS GESTATION - IOL DUE TO GESTATIONAL HTN - BPS 140S/90 SINCE 34 WEEKS. SERIAL PIH LABS WNL; EFW AT 36 WKS WAS 6#1. PT HAD A LEIGH BALLOON PLACED TRANSCERVICALLY 05/29/18 - WHEN EXPULSED, [...] PRIMARY DELIVERY cc: Audrey Rao MD; Wendy Sandoval MD Dictated by: Audrey Rao MD (LMA) on 05/30/182057 Entered by: Audrey Rao MD (LMA) on 05/30/182057 Report Signed by: Audrey Rao MD on 05/30/182108 < > Co-Signed by: on Normal [facility] Nonstress Test Reporton 05-04 Nonstress Test Report [facility] Medical Records Patient: KAYLEEN KOVACS [address] : 1995 [place] [address] Location: [facility] [phone] Unit #: [id number] Nonstress Test Report Audrey Rao MD (LMA) [...] MD (LMA) cc: Audrey Rao MD; Wendy Sandoval MD Dictated by: Audrey Rao MD (LMA) on 05/18/182311 Entered by: Audrey Rao MD (LMA) on 05/29/182311 Report Signed by: Audrey Rao MD on 05/29/182313 < > Co-Signed by: on Normal [facility] Prog Note - H&P Update Stamp on 05-30-2018 Protein mass [facility] Medical Records Patient: KAYLEEN KOVACS[address] : 1995 [place] [address] Location: OB [phone] Unit #: [id number] Prog Note - HANDP Update Stamp Jocelyn Bowen CNM Service Dt/Tm: 05/30/18 09 - HANDP dictated by Medical Staff Member Patient examined, Chart Reviewed: HANDP updated with the following information - Pt. is here for Induction of labor gestational hypertension at 39 completed weeks gestation. No severe features. Entered by: Jocelyn Bowen CNM on 05/30/18922 Report Signed by: Jocelyn Bowen CNM on 05/30/18 09 < > Co-Signed by: on Normal [facility] Progress Note Obstetricson 1 07-30-2017 Protein mass [facility] Medical Records Patient: KAYLEEN KOVACS[address] : 1995 [place] [address] Location: OB [phone] Unit #: [id number] Progress Note Obstetrics Jocelyn Bowen CNM Service Dt/Tm: 05/30/18 1503 Subjective KAYLEEN KOVACS is a 22 yr old F who [...] 1,000 mls @ 0 mls/hr IV [facility] Stop: 05/30/18 23:59 Ropivacaine 12 ml/ Fentanyl [...] 1507 < > Co-Signed by: on Normal [facility] Protein mass conc [facility] Medical Records Patient: KAYLEEN KOVACS [address] : 1995 [place] [address] Location: [facility] [phone] Unit #: [id number] Progress Note Obstetrics Jocelyn Bowen CNM Service Dt/Tm: 05/30/18 0926 ADDENDUM: IUPC placed after AROM clear fluid. Addendum Entered by: Jocelyn Bowen CNM on 05/30/18 at 0933 Addendum Signed by: Jocelyn Bowen CNM on 05/30/18 0933 Addendum Co-signer: on Subjective KAYLEEN KOVACS is a 22 yr old F who [...] ALIYAH Stop: 09/05/18 18:11 Last Admin: 05/30/18 08:11 [...] 1,000 mls @ 0 mls/hr IV [facility] Stop: 05/30/18 23:59 Ropivacaine 12 ml/ Fentanyl Citrate 150 mcg/ Sodium Chloride 60 mls @ 0 mls/hr EPID [facility] Stop: 09/06/18 05:31 Last Admin: 05/30/18 08:20 Dose: 12 mls/hr Penicillin G Potassium 2.5 mu/ (Sodium Chloride) 100 mls @ 100 mls/hr IVPB [facility] Stop: 06/06/18 10:01 Methylergonovine Maleate (Methergine Inj) [...] 18:11 Entered by: Jocelyn Bowen CNM on 05/30/18925 Report Signed by: Jocelyn Bowen CNM on 05/30/18930 < > Co-Signed by: on Normal [facility] Prothrombin Timeon 8 INR Coag RelTime (PPP) 1.01 {INR} Normal 0.9-1.2 [facility] Comment on above: Order Comment: Is Pa tient receiving Heparin? No Result Comment: Grover dard dose INR: 2.0-3.0High dose INR: 2.5-3.5 Performed By: #### L 800.0100, L800.0300, L800.0400, L800.4806 ####[facility] Laboratory ([facility])[address], [place] [phone] Nivar, MD Prothrombin time (PT) Coag time (PPP) 11.6 Sec Normal 9.6-13.3 [facility] Comment on above: Order Comment: Is Pa tient receiving Heparin? No Performed By: #### L 800.0100, L800.0300, L800.0400, L800.4806 ####[facility] ([facility])[address], [place] [phone] Nivar, MD Status Note/Updateon 018 Status Note/Update [facility] Medical Records Patient: KAYLEEN KOVACS [address] : 1995 [place], [place] [address] Location: OB [phone] Unit #: [id number] Status Note/Update Jocelyn Bowen CNM Service Dt/Tm: 05/30/18 7920 Note: KAYLEEN KOVACS is a 22 yr old F who [...] Report Signed by: Jocelyn Bowen CNM on 05/30/181901 < > Co-Signed by: on Normal [facility] Type and Screen(No Crossmatc h)on 05-30-2018 AB Screen (IAT) Negative Normal [facility] Comment on above: Performed By: #### L 800.0100, L800.0300, L800.0400, L800.4806 ####[facility] ([facility])[address], [place] [phone] Nivar, MD ABO and Rh group Nom (Bld) O Positive Normal [facility] Comment on above: Performed By: #### L 800.0100, L800.0300, L800.0400, L800.4806 ####[facility] ([facility])[address] [place] [phone] Nivar, MD APTTon 05-29-2018 aPTT Coag time (Bld) 26.0 Sec Normal 23.0-38.0 [facility] Comment on above: Order Comment: Is Pa tient receiving Heparin? No Result Comment: APTT of 50.5 to 78.0 secondsrepresents therapeutic rangefor heparin (unfractionated) [facility].This corresponds to a heparinconcentration of 0.3 to 0.7 IU/ml. Performed By: #### L 800.0100, L800.0300, L800.0400, L800.4806 ####[facility] ([facility])[address] [phone] Nivar, MD Blood Urea Nitrogenon 2017 Urea nitrogen mass conc 5 mg/dL Low 7-20 [facility] Comment on above: Performed By: #### L 800.0100, L800.0300, L800.0400, L800.4806 ####[facility] ([facility])[address] [place], [place] [phone] Nivar, MD CBC with Differentialon 05-04 Abs Baso Count 200 /cmm Normal 0-[address] [facility] Comment on above: Performed By: #### L 800.0100, L800.0300, L800.0400, L800.4806 ####[facility] ([facility])[address] [phone] Nivar, MD Abs Eos Count 100 /cmm Normal 0-500 [facility] Comment on above: Performed By: #### L 800.0100, L800.0300, L800.0400, L800.4806 ####[facility] ([facility])[address], [place] [phone] Nivar, MD Abs Avery Count 900 /cmm High 0-[address] [facility] Comment on above: Performed By: #### L 800.0100, L800.0300, L800.0400, L800.4806 ####[facility] ([facility])[address] [phone] Nivar, MD Abs Neut Count 9900 /cmm High 3873-[address] [facility] Comment on above: Performed By: #### L 800.0100, L800.0300, L800.0400, L800.4806 ####[facility] ([facility])[address], [place] [phone] Nivar, MD Basophils Auto #/vol (Bld) 1.2 % Normal 0-2 [facility] Comment on above: Performed By: #### L 800.0100, L800.0300, L800.0400, L800.4806 ####[facility] ([facility])[address], [place] [phone] Nivar, MD EOS-Auto Diff 0.7 % Normal 0-6 [facility] Comment on above: Performed By: #### L 800.0100, L800.0300, L800.0400, L800.4806 ####[facility] ([facility])[address], [place] [phone] Nivar, MD Erythrocyte distribution width Auto Ratio (RBC) 13.7 % Normal 12.0-16.0 [facility] Comment on above: Performed By: #### L 800.0100, L800.0300, L800.0400, L800.4806 ####[facility] ([facility])[address], [place] [phone] Nivar, MD Hematocrit Auto Volume Fraction (Bld) 36.6 % Normal 35.0-44.0 [facility] Comment on above: Performed By: #### L 800.0100, L800.0300, L800.0400, L800.4806 ####[facility] ([facility])[address], [place] [phone] Nivar, MD Hemoglobin mass conc (Bld) 12.1 g/dL Normal 12.0-15.0 [facility] Comment on above: Performed By: #### L 800.0100, L800.0300, L800.0400, L800.4806 ####[facility] ([facility])[address] [place], [place] [phone] Nivar, MD Lymphocytes Auto #/vol (Bld) 1900 /cmm Normal 0229-0729 [facility] Comment on above: Performed By: #### L 800.0100, L800.0300, L800.0400, L800.4806 ####[facility] ([facility])[address] [place], [place] [phone] Nivar, MD Lymphocytes/100 WBC Auto (Bld) 14.4 % Low 15-45 [facility] Comment on above: Performed By: #### L 800.0100, L800.0300, L800.0400, L800.4806 ####[facility] ([facility])[address] [place], [place] [phone] Nivar, MD MCH Auto Entitic mass (RBC) 27.0 pg Low 27.5-33.0 [facility] Comment on above: Performed By: #### L 800.0100, L800.0300, L800.0400, L800.4806 ####[facility] ([facility])[address] [place] [phone] Nivar, MD MCHC Auto mass conc (RBC) 33.2 g/dL Normal 33.0-36.0 [facility] Comment on above: Performed By: #### L 800.0100, L800.0300, L800.0400, L800.4806 ####[facility] ([facility])[address] [place], [place] [phone] Nivar, MD MCV Auto Entitic volume (RBC) 81.4 CU EHSAN Normal 80-97 [facility] Comment on above: Performed By: #### L 800.0100, L800.0300, L800.0400, L800.4806 ####[facility] ([facility])[address], [place] [phone] Nivar, MD Avery- Auto Diff 6.7 % Normal 2-10 [facility] Comment on above: Performed By: #### L 800.0100, L800.0300, L800.0400, L800.4806 ####[facility] ([facility])[address], [place] [phone] Nivar, MD Neut-Auto Diff 77.0 % High 40-[address] [facility] Comment on above: Performed By: #### L 800.0100, L800.0300, L800.0400, L800.4806 ####[facility] ([facility])[address] [place], [place] [phone] Nivar, MD NRBC-Auto 0.1 /100 WBC Normal <1 [facility] Comment on above: Performed By: #### L 800.0100, L800.0300, L800.0400, L800.4806 ####[facility] ([facility])[address], [place] [phone] Nivar, MD Platelets Auto #/vol (Bld) 344 th/cmm Normal 150-400 [facility] Comment on above: Performed By: #### L 800.0100, L800.0300, L800.0400, L800.4806 ####[facility] ([facility])[address], [place] [phone] Nivar, MD RBC Auto #/vol (Bld) 4.50 mil/cmm Normal 4.00-5.10 [facility] Comment on above: Performed By: #### L 800.0100, L800.0300, L800.0400, L800.4806 ####[facility] ([facility])[address] [place] [phone] Nivar, MD WBC Auto #/vol (Bld) 12.9 th/cmm High 4.4-10.5 [facility] Comment on above: Performed By: #### L 800.0100, L800.0300, L800.0400, L800.4806 ####[facility] ([facility])[address] [place] [phone] Nivar, MD Creatinineon 05-29-2018 Creatinine mass conc 0.45 mg/dL Low 0.60-1.30 [facility] Comment on above: Performed By: #### L 800.0100, L800.0300, L800.0400, L800.4806 ####[facility] ([facility])[address] [phone] Nivar, MD GFR/1.73 sq M predicted among non-blacks MDRD vol rate/area (S/P/Bld) mL/min/{1.73_m2} Normal [facility] Comment on above: Result Comment: Residential Program Coordinator lorena Kidney Disease stages by NKDFStage eGFR I >90 II 60-89 III 30-59 IV 15-29 V <15 or dialysisAGE(years) AVERAGE GFR 20-29 116 ml/min/1.73 square metersNote:This result is normalized to 1.73 square meter body surface area. Height and weight are not factored. Performed By: #### L 800.0100, L800.0300, L800.0400, L800.4806 ####[facility] ([facility])[address] [place] [phone] Nivar, MD Drug Screen Urineon 05-29-20 18 Amphetamines Negative Normal Negative [facility] Comment on above: Performed By: #### L 800.0100, L800.0300, L800.0400, L800.4806 ####[facility] ([facility])[address] [place], [place] [phone] Nivar, MD Barbiturates Negative Normal Negative [facility] Comment on above: Performed By: #### L 800.0100, L800.0300, L800.0400, L800.4806 ####[facility] ([facility])[address] [place], [place] [phone] Nivar, MD Benzodiazepines Negative Normal Negative [facility] Comment on above: Performed By: #### L 800.0100, L800.0300, L800.0400, L800.4806 ####[facility] ([facility])[address] [place], [place] [phone] Nivar, MD Cannabinoids Negative Normal Negative [facility] Comment on above: Performed By: #### L 800.0100, L800.0300, L800.0400, L800.4806 ####[facility] ([facility])[address] [place], [place] [phone] Nivar, MD Cocaine Negative Normal Negative [facility] Comment on above: Performed By: #### L 800.0100, L800.0300, L800.0400, L800.4806 ####[facility] ([facility])[address] [place], [place] [phone] Nivar, MD Opiates Negative Normal Negative [facility] Comment on above: Performed By: #### L 800.0100, L800.0300, L800.0400, L800.4806 ####[facility] ([facility])[address] [place], [place] [phone] Nivar, MD Phencyclidine Negative Normal Negative [facility] Comment on above: Performed By: #### L 800.0100, L800.0300, L800.0400, L800.4806 ####[facility] ([facility])[address] [place], [place] [phone] Nivar, MD Oxycodone Negative Normal Negative [facility] Comment on above: Performed By: #### L 800.0100, L800.0300, L800.0400, L800.4806 ####[facility] ([facility])[address] [place], [place] [phone] Nivar, MD Comment Normal [facility] Comment on above: Result Comment: This drug of abuse screen is not intended for employmentrelated testing and is intended for use in clinicalmanagement of patients. Cut-off Concentrations for Positive ResultsPhencyclidine 25 ng/mLBenzodiazepines 200 ng/mLCocaine 300 ng/mLAmphetamines 1000 ng/mLCannabinoids 100 ng/mLOpiates 300 ng/mLBarbiturates 200 ng/mLOxycodone 100 ng/mL Performed By: #### L 800.0100, L800.0300, L800.0400, L800.4806 ####Main Laboratory ([facility])[address] [place], [place] [phone] Nivar, MD Fibrinogenon 05-29-2018 Fibrinogen 700 mg/dL High 200-400 [facility] Comment on above: Order Comment: Is Pa tient receiving Heparin? No Performed By: #### L 800.0100, L800.0300, L800.0400, L800.4806 ####Main Laboratory ([facility])[address] [place], [place] [phone] Nivar, MD Hepatic Function Panel (Live r)on 05-29-2018 Albumin mass conc 3.3 g/dL Low 3.5-5.0 [facility] Comment on above: Performed By: #### L 800.0100, L800.0300, L800.0400, L800.4806 ####[facility] ([facility])[address], [place] [phone] Nivar, MD Alk Phos 119 IU/L High 39-118 [facility] Comment on above: Performed By: #### L 800.0100, L800.0300, L800.0400, L800.4806 ####[facility] ([facility])[address], [place] [phone] Nivar, MD ALT/SGPT 15 IU/L Normal 10-40 [facility] Comment on above: Performed By: #### L 800.0100, L800.0300, L800.0400, L800.4806 ####[facility] ([facility])[address] [place], [place] [phone] Nivar, MD AST/SGOT 18 IU/L Normal 15-41 [facility] Comment on above: Performed By: #### L 800.0100, L800.0300, L800.0400, L800.4806 ####[facility] ([facility])[address] [place], [place] [phone] Nivar, MD Bili,Direct < 0.1 Low 0.1-0.2 [facility] Comment on above: Performed By: #### L 800.0100, L800.0300, L800.0400, L800.4806 ####[facility] ([facility])[address] [place], [place] [phone] Nivar, MD Bili,Total 0.2 mg/dL Invalid Interpretation Code 0.2-1.0 [facility] Comment on above: Result Comment: Delt a: < 0.1 on 05/01/18 Performed By: #### L 800.0100, L800.0300, L800.0400, L800.4806 ####[facility] ([facility])[address] [place] [phone] Nivar, MD Protein mass conc 6.0 g/dL Low 6.2-8.0 [facility] Comment on above: Performed By: #### L 800.0100, L800.0300, L800.0400, L800.4806 ####[facility] ([facility])[address] [place] [place], [place] [phone] Nivar, MD LDHon 05-29-2018 LDH 96 iu/l Low 98-192 [facility] Comment on above: Performed By: #### L 800.0100, L800.0300, L800.0400, L800.4806 ####[facility] ([facility])[address] [place], [place] [phone] Nivar, MD Prothrombin Timeon 8 INR Coag RelTime (PPP) 0.97 {INR} Normal 0.9-1.2 [facility] Comment on above: Order Comment: Is Pa tient receiving Heparin? No Result Comment: Grover dard dose INR: 2.0-3.0High dose INR: 2.5-3.5 Performed By: #### L 800.0100, L800.0300, L800.0400, L800.4806 ####[facility] ([facility])[address] [place], [place] [phone] Nivar, MD Prothrombin time (PT) Coag time (PPP) 11.2 Sec Normal 9.6-13.3 [facility] Comment on above: Order Comment: Is Pa tient receiving Heparin? No Performed By: #### L 800.0100, L800.0300, L800.0400, L800.4806 ####[facility] ([facility])[address] [place], [place] [phone] Nivar, MD Uric Acidon 05-29-2018 Urate mass conc 4.9 mg/dL Normal 2.6-8.0 [facility] Comment on above: Performed By: #### L 800.0100, L800.0300, L800.0400, L800.4806 ####[facility] ([facility])[address], [place] [phone] Nivar, MD Urine Protein/Creatinine Rat ioon 05-29-2018 Creatinine mass conc (U) 189.6 mg/dL Normal [facility] Comment on above: Performed By: #### L 800.0100, L800.0300, L800.0400, L800.4806 ####[facility] ([facility])[address], [place] [phone] Nivar, MD Total Protein, Random Urine 24.0 mg/dL Normal [facility] Comment on above: Performed By: #### L 800.0100, L800.0300, L800.0400, L800.4806 ####[facility] ([facility])[address], [place] [phone] Nivar, MD Urine Protein/Creatinine Ratio 0.1 g/1.73m2 Normal <0.15 [facility] Comment on above: Performed By: #### L 800.0100, L800.0300, L800.0400, L800.4806 ####[facility] ([facility])[address], [place] [phone] Nivar, MD Nonstress Test Reporton 05-04 Nonstress Test Report [facility] Medical Records Patient: KAYLEEN KOVACS [address] : 1995 [place], [place] [address] Location: [facility] [phone] Unit #: [id number] Nonstress Test Report Kitty Vazquez MD SUBJECTIVE: [...] Vazquez MD cc: Kitty Vazquez MD; Wendy Sandoval MD Dictated by: Kitty Vazquez MD on 05/25/18 1244 Entered by: Kitty Vazquez MD on 05/25/18 1244 Report Signed by: Kitty Vazquez MD on 05/25/18 1247 < > Co-Signed by: on Normal [facility] Urine culture, reflexon 05-03 Urine culture, reflex No growth(<10,000 CFU/ml)of urinary tract pathogens. Tobias present are not the usual etiologic agents of a urinary tract infection and probably represent vaginal,urethral, or skin tobias. Contact Microbiology at extension [phone] if further information is needed. ORGANISM 1: Mixed tobias- 3 species presentColony count >100,000 CFU/ml Normal [facility] Comment on above: Performed By: #### L 800.0100, L800.0300, L800.0400, L800.4806 ####[facility] ([facility])[address], [place] [phone] Nivar, MD Bilirubin,Directon 8 Bili,Direct < 0.1 Low 0.1-0.2 [facility] Comment on above: Performed By: #### L 800.0100, L800.0300, L800.0400, L800.4806 ####[facility] ([facility])[address], [place] [phone] Nivar, MD CBC with Differentialon 05-03 Abs Baso Count 100 /cmm Normal 0-[address] [facility] Comment on above: Performed By: #### L 404.6700 ####[facility] ([facility])[address], [place] [phone] Nivar, MD Abs Eos Count 100 /cmm Normal 0-500 [facility] Comment on above: Performed By: #### L 404.6700 ####[facility] ([facility])[address], [place] [phone] Nivar, MD Abs Avery Count 900 /cmm High 0-[address] [facility] Comment on above: Performed By: #### L 404.0 ####[facility] ([facility])[address] [place], [place] [phone] Nivar, MD Abs Neut Count 18971 /cmm High 6315-[address] [facility] Comment on above: Performed By: #### L 404.0 ####[facility] ([facility])[address], [place] [phone] Nivar, MD Basophils Auto #/vol (Bld) 0.5 % Normal 0-2 [facility] Comment on above: Performed By: #### L 404.0 ####[facility] ([facility])[address] [place] [phone] Nivar, MD EOS-Auto Diff 0.8 % Normal 0-6 [facility] Comment on above: Performed By: #### L 404.0 ####[facility] ([facility])[address], [place] [phone] Nivar, MD Erythrocyte distribution width Auto Ratio (RBC) 13.3 % Normal 12.0-16.0 [facility] Comment on above: Performed By: #### L 404.0 ####[facility] ([facility])[address], [place] [phone] Nivar, MD Hematocrit Auto Volume Fraction (Bld) 37.3 % Normal 35.0-44.0 [facility] Comment on above: Performed By: #### L 404.0 ####[facility] ([facility])[address] [phone] Nivar, MD Hemoglobin mass conc (Bld) 12.3 g/dL Normal 12.0-15.0 [facility] Comment on above: Performed By: #### L 404.0 ####[facility] ([facility])[address] [phone] Nivar, MD Hypochromasia 1+ Normal [facility] Comment on above: Performed By: #### L 404.0 ####[facility] ([facility])[address] [phone] Nivar, MD Lymphocytes Auto #/vol (Bld) 1600 /cmm Normal 4340-2852 [facility] Comment on above: Performed By: #### L 404.0 ####[facility] ([facility])[address] [phone] Nivar, MD Lymphocytes/100 WBC Auto (Bld) 12.0 % Low 15-45 [facility] Comment on above: Performed By: #### L 404.6700 ####[facility] ([facility])[address] [phone] Nivar, MD MCH Auto Entitic mass (RBC) 26.9 pg Low 27.5-33.0 [facility] Comment on above: Performed By: #### L 404.6700 ####[facility] ([facility])[address] [phone] Nivar, MD MCHC Auto mass conc (RBC) 32.9 g/dL Low 33.0-36.0 [facility] Comment on above: Performed By: #### L 404.0 ####[facility] ([facility])[address] [phone] Nivar, MD MCV Auto Entitic volume (RBC) 81.6 CU EHSAN Normal 80-97 [facility] Comment on above: Performed By: #### L 404.6700 ####[facility] ([facility])[address], [place] [phone] Nivar, MD Avery- Auto Diff 6.7 % Normal 2-10 [facility] Comment on above: Performed By: #### L 404.6700 ####[facility] ([facility])[address], [place] [phone] Nivar, MD Neut-Auto Diff 80.0 % High 40-[address] [facility] Comment on above: Performed By: #### L 404.6700 ####[facility] ([facility])[address], [place] [phone] Nivar, MD NRBC-Auto 0.1 /100 WBC Normal <1 [facility] Comment on above: Performed By: #### L 404.6700 ####[facility] ([facility])[address] [place], [place] [phone] Nivar, MD Platelets Auto #/vol (Bld) 359 th/cmm Normal 150-400 [facility] Comment on above: Performed By: #### L 404.6700 ####[facility] ([facility])[address], [place] [phone] Nivar, MD RBC Auto #/vol (Bld) 4.57 mil/cmm Normal 4.00-5.10 [facility] Comment on above: Performed By: #### L 404.6700 ####[facility] ([facility])[address] [place], [place] [phone] Nivar, MD WBC Auto #/vol (Bld) 13.5 th/cmm High 4.4-10.5 [facility] Comment on above: Performed By: #### L 404.6700 ####[facility] ([facility])[address] [place], [place] [phone] Nivar, MD Comprehensive Metabolic Pane shayne 05-18-2018 Albumin mass conc 3.6 g/dL Normal 3.5-5.0 [facility] Comment on above: Performed By: #### L 800.0100, L800.0300, L800.0400, L800.4806 ####[facility] ([facility])[address], [place] [phone] Nivar, MD Albumin/Globulin mass ratio 1.1 {ratio} Low 1.5-2.5 [facility] Comment on above: Performed By: #### L 800.0100, L800.0300, L800.0400, L800.4806 ####[facility] ([facility])[address], [place] [phone] Nivar, MD Alk Phos 86 IU/L Normal 39-118 [facility] Comment on above: Performed By: #### L 800.0100, L800.0300, L800.0400, L800.4806 ####[facility] ([facility])[address] [place] [phone] Nivar, MD ALT/SGPT 11 IU/L Normal 10-40 [facility] Comment on above: Performed By: #### L 800.0100, L800.0300, L800.0400, L800.4806 ####[facility] ([facility])[address] [place], [place] [phone] Nivar, MD Anion gap 3 molar conc 10 mmol/L Normal 4-12 [facility] Comment on above: Performed By: #### L 800.0100, L800.0300, L800.0400, L800.4806 ####[facility] ([facility])[address], [place] [phone] Nivar, MD AST/SGOT 17 IU/L Normal 15-41 [facility] Comment on above: Performed By: #### L 800.0100, L800.0300, L800.0400, L800.4806 ####[facility] ([facility])[address], [place] [phone] Nivar, MD Bili, Total 0.7 mg/dL Normal 0.2-1.0 [facility] Comment on above: Performed By: #### L 800.0100, L800.0300, L800.0400, L800.4806 ####[facility] ([facility])[address], [place] [phone] Nivar, MD Calcium mass conc 8.7 mg/dL Low 8.8-10.5 [facility] Comment on above: Performed By: #### L 800.0100, L800.0300, L800.0400, L800.4806 ####[facility] ([facility])[address], [place] [phone] Nivar, MD Chloride molar conc 102 mmol/L Normal 101-111 [facility] Comment on above: Performed By: #### L 800.0100, L800.0300, L800.0400, L800.4806 ####[facility] ([facility])[address], [place] [phone] Nivar, MD CO2 molar conc 21 mmol/L Normal 21-[address] [facility] Comment on above: Performed By: #### L 800.0100, L800.0300, L800.0400, L800.4806 ####[facility] ([facility])[address], [place] [phone] Nivar, MD Creatinine mass conc 0.41 mg/dL Low 0.60-1.30 [facility] Comment on above: Performed By: #### L 800.0100, L800.0300, L800.0400, L800.4806 ####[facility] ([facility])[address] [place], [place] [phone] Nivar, MD GFR/1.73 sq M predicted among non-blacks MDRD vol rate/area (S/P/Bld) mL/min/{1.73_m2} Normal [facility] Comment on above: Result Comment: Residential Program Coordinator lorena Kidney Disease stages by NKDFStage eGFR I >90 II 60-89 III 30-59 IV 15-29 V <15 or dialysisAGE(years) AVERAGE GFR 20-29 116 ml/min/1.73 square metersNote:This result is normalized to 1.73 square meter body surface area. Height and weight are not factored. Performed By: #### L 800.0100, L800.0300, L800.0400, L800.4806 ####[facility] ([facility])[address] [place] [phone] Nivar, MD Glucose mass conc 93 mg/dL Normal 70-110 [facility] Comment on above: Result Comment: *Thi s reference range applies to fasting specimens only. Performed By: #### L 800.0100, L800.0300, L800.0400, L800.4806 ####[facility] ([facility])[address] [place] [phone] Nivar, MD Potassium molar conc 3.6 mmol/L Normal 3.6-5.0 [facility] Comment on above: Performed By: #### L 800.0100, L800.0300, L800.0400, L800.4806 ####[facility] ([facility])[address] [place] [phone] Nivar, MD Protein mass conc 6.8 g/dL Normal 6.2-8.0 [facility] Comment on above: Performed By: #### L 800.0100, L800.0300, L800.0400, L800.4806 ####[facility] ([facility])[address], [place] [phone] Nivar, MD Sodium molar conc 133 mmol/L Low 135-145 [facility] Comment on above: Performed By: #### L 800.0100, L800.0300, L800.0400, L800.4806 ####[facility] ([facility])[address], [place] [phone] Nivar, MD Urea nitrogen mass conc mg/dL Low 7-20 [facility] Comment on above: Performed By: #### L 800.0100, L800.0300, L800.0400, L800.4806 ####[facility] ([facility])[address], [place] [phone] Nivar, MD Drug Screen Urineon 16-20 18 Amphetamines Negative Normal Negative [facility] Comment on above: Performed By: #### L 800.0100, L800.0300, L800.0400, L800.4806 ####[facility] ([facility])[address], [place] [phone] Nivar, MD Barbiturates Negative Normal Negative [facility] Comment on above: Performed By: #### L 800.0100, L800.0300, L800.0400, L800.4806 ####[facility] ([facility])[address], [place] [phone] Nivar, MD Benzodiazepines Negative Normal Negative [facility] Comment on above: Performed By: #### L 800.0100, L800.0300, L800.0400, L800.4806 ####[facility] ([facility])[address], [place] [phone] Nivar, MD Cannabinoids Negative Normal Negative [facility] Comment on above: Performed By: #### L 800.0100, L800.0300, L800.0400, L800.4806 ####[facility] ([facility])[address], [place] [phone] Nivar, MD Cocaine Negative Normal Negative [facility] Comment on above: Performed By: #### L 800.0100, L800.0300, L800.0400, L800.4806 ####[facility] ([facility])[address], [place] [phone] Nivar, MD Opiates Negative Normal Negative [facility] Comment on above: Performed By: #### L 800.0100, L800.0300, L800.0400, L800.4806 ####[facility] ([facility])[address], [place] [phone] Nivar, MD Phencyclidine Negative Normal Negative [facility] Comment on above: Performed By: #### L 800.0100, L800.0300, L800.0400, L800.4806 ####[facility] ([facility])[address], [place] [phone] Nivar, MD Oxycodone Negative Normal Negative [facility] Comment on above: Performed By: #### L 800.0100, L800.0300, L800.0400, L800.4806 ####[facility] ([facility])[address], [place] [phone] Nivar, MD Comment Normal [facility] Comment on above: Result Comment: This drug of abuse screen is not intended for employmentrelated testing and is intended for use in clinicalmanagement of patients. Cut-off Concentrations for Positive ResultsPhencyclidine 25 ng/mLBenzodiazepines 200 ng/mLCocaine 300 ng/mLAmphetamines 1000 ng/mLCannabinoids 100 ng/mLOpiates 300 ng/mLBarbiturates 200 ng/mLOxycodone 100 ng/mL Performed By: #### L 800.0100, L800.0300, L800.0400, L800.4806 ####[facility] ([facility])[address], [place] [phone] Nivar, MD Urinalysis with Reflex Cultu reon 05-18-2018 Appearance Cloudy [facility] Comment on above: Order Comment: Urine Source Urine, Clean Catch Performed By: #### L 404.6700 ####[facility] ([facility])[address] [phone] Nivar, MD Bacteria 1+ [facility] Comment on above: Order Comment: Urine Source Urine, Clean Catch Performed By: #### L 404.0 ####[facility] ([facility])[address] [place] [phone] Nivar, MD Bilirubin Negative Normal Negative [facility] Comment on above: Order Comment: Urine Source Urine, Clean Catch Performed By: #### L 404.0 ####[facility] ([facility])[address] [place] [place] [phone] Nivar, MD Color Yellow Normal [facility] Comment on above: Order Comment: Urine Source Urine, Clean Catch Performed By: #### L 404.6700 ####[facility] ([facility])[address] [phone] Nivar, MD Epi,Squamous >50 High [facility] Comment on above: Order Comment: Urine Source Urine, Clean Catch Performed By: #### L 404.6700 ####[facility] ([facility])[address] [place], [place] [phone] Nivar, MD Epi,Transitional 0-5 Normal [facility] Comment on above: Order Comment: Urine Source Urine, Clean Catch Performed By: #### L 404.6700 ####[facility] ([facility])[address] [phone] Nivar, MD Glucose Negative Normal Negative [facility] Comment on above: Order Comment: Urine Source Urine, Clean Catch Performed By: #### L 404.6700 ####[facility] ([facility])[address] [phone] Nivar, MD Hyaline Casts 0-2 Normal [facility] Comment on above: Order Comment: Urine Source Urine, Clean Catch Performed By: #### L 404.6700 ####[facility] ([facility])[address] [phone] Nivar, MD INR Coag RelTime (Bld) 3-5 High Li [facility] Comment on above: Order Comment: Urine Source Urine, Clean Catch Performed By: #### L 404.6700 ####[facility] ([facility])[address] [phone] Nivar, MD Ketones Negative Normal Negative [facility] Comment on above: Order Comment: Urine Source Urine, Clean Catch Performed By: #### L 404.6700 ####[facility] ([facility])[address] [phone] Nivar, MD Leukocytes Large High Negative [facility] Comment on above: Order Comment: Urine Source Urine, Clean Catch Performed By: #### L 404.6700 ####[facility] ([facility])[address] [phone] Nivar, MD Mucous Present Normal [facility] Comment on above: Order Comment: Urine Source Urine, Clean Catch Performed By: #### L 404.6700 ####[facility] ([facility])[address] [place] [phone] Nivar, MD Nitrites Negative Normal Negative [facility] Comment on above: Order Comment: Urine Source Urine, Clean Catch Performed By: #### L 404.0 ####[facility] ([facility])[address] [phone] Nivar, MD pH 7.0 Normal 5.0-8.0 [facility] Comment on above: Order Comment: Urine Source Urine, Clean Catch Performed By: #### L 404.0 ####[facility] ([facility])[address] [place] [place] [phone] Nivar, MD Protein mass conc Negative Normal Negative [facility] Comment on above: Order Comment: Urine Source Urine, Clean Catch Performed By: #### L 404.0 ####[facility] ([facility])[address] [place] [phone] Nivar, MD Specific [place] 1.012 Normal 1.000-1.035 [facility] Comment on above: Order Comment: Urine Source Urine, Clean Catch Performed By: #### L 404.0 ####[facility] ([facility])[address] [phone] Nivar, MD UA Reflex Culture Yes Normal [facility] Comment on above: Order Comment: Urine Source Urine, Clean Catch Result Comment: Cult ure done per lab protocol Performed By: #### L 404.0 ####[facility] ([facility])[address] [place] [phone] Nivar, MD Urobilinogen <2.0 E.U./dL Normal 0.2-1.[address] [facility] Comment on above: Order Comment: Urine Source Urine, Clean Catch Performed By: #### L 404.6700 ####[facility] ([facility])[address] [phone] Nivar, MD WBC 6-10 High [facility] Comment on above: Order Comment: Urine Source Urine, Clean Catch Performed By: #### L 404.6700 ####Main Laboratory ([facility])[address], [place] [phone] Nivar, MD Urine Protein/Creatinine Rat ioon 05-18-2018 Creatinine mass conc (U) 108.7 mg/dL Normal [facility] Comment on above: Performed By: #### L 800.0100, L800.0300, L800.0400, L800.4806 ####[facility] ([facility])[address], [place] [phone] Nivar, MD Total Protein, Random Urine 18.0 mg/dL Normal [facility] Comment on above: Performed By: #### L 800.0100, L800.0300, L800.0400, L800.4806 ####Main [facility] ([facility])[address], [place] [phone] Nivar, MD Urine Protein/Creatinine Ratio 0.2 g/1.73m2 High <0.15 [facility] Comment on above: Performed By: #### L 800.0100, L800.0300, L800.0400, L800.4806 ####Main [facility] ([facility])[address], [place] [phone] Nivar, MD Group B Strep Probeon 2017 Protein mass conc Positive High Negative [facility] Comment on above: Order Comment: Does [...] Performed By: #### L 404.6700 ####Main Laboratory ([facility])[address], [place] [phone] Nivar, MD Nonstress Test Reporton Nonstress Test Report [facility] Medical Records Patient: KAYLEEN KOVACS [address] : 1995 [place], [place] [address] Location: OBOP [phone] Unit #: [id number] Nonstress Test Report Lenora Peña CNM SUBJECTIVE: [...] Peña CNM cc: Lenora Peña CNM; Wendy Sandoval MD Dictated by: Lenora Peña CNM on 05/04/18 1558 Entered by: Lenora Peña CNM on 05/04/18 1558 Report Signed by: Lenora Peña CNM on 05/04/18 1602 < > Co-Signed by: on Normal [facility] Urine culture, reflexon Urine culture, reflex No growth(<10,000 CFU/ml)of urinary tract pathogens. Tobias present are not the usual etiologic agents of a urinary tract infection and probably represent vaginal,urethral, or skin tobias. Contact Microbiology at extension [phone] if further information is needed. ORGANISM 1: Mixed tobias- 3 species presentColony count >100,000 CFU/ml Normal [facility] Comment on above: Performed By: #### L 404.6700 ####Main Laboratory ([facility])[address] [place] [phone] Nivar, MD APTTon 05-02-2018 aPTT Coag time (Bld) 26.7 Sec Normal 23.0-38.0 [facility] Comment on above: Order Comment: Is Saulo pate receiving Heparin? No Result Comment: APTT of 50.5 to 78.0 secondsrepresents therapeutic rangefor heparin (unfractionated) for[facility].This corresponds to a heparinconcentration of 0.3 to 0.7 IU/ml. Performed By: #### L 402.4000 ####Main Laboratory ([facility])[address] [place] [phone] Nivar, MD Bilirubin,Directon 8 Bili,Direct 0.1 mg/dL Normal 0.1-0.2 [facility] Comment on above: Performed By: #### L 404.6700 ####[facility] ([facility])[address] [place], [place] [phone] Nivar, MD CBC with Differentialon 04-04 Abs Baso Count 200 /cmm Normal 0-[address] [facility] Comment on above: Performed By: #### L 402.4000 ####Main Laboratory ([facility])[address] [place] [phone] Nivar, MD Abs Eos Count 100 /cmm Normal 0-500 [facility] Comment on above: Performed By: #### L 402.4000 ####Main Laboratory ([facility])[address] [place] [phone] Nivar, MD Abs Avery Count 1000 /cmm High 0-[address] [facility] Comment on above: Performed By: #### L 402.4000 ####Main Laboratory ([facility])[address] [phone] Nivar, MD Abs Neut Count 69527 /cmm High 7079-[address] [facility] Comment on above: Performed By: #### L 402.4000 ####Main Laboratory ([facility])[address] [phone] Nivar, MD Basophils Auto #/vol (Bld) 1.3 % Normal 0-2 [facility] Comment on above: Performed By: #### L 402.4000 ####[facility] ([facility])[address] [phone] Nivar, MD EOS-Auto Diff 0.9 % Normal 0-6 [facility] Comment on above: Performed By: #### L 402.4000 ####Main [facility] ([facility])[address] [phone] Nivar, MD Erythrocyte distribution width Auto Ratio (RBC) 13.2 % Normal 12.0-16.0 [facility] Comment on above: Performed By: #### L 402.4000 ####[facility] ([facility])[address] [phone] Nivar, MD Hematocrit Auto Volume Fraction (Bld) 38.6 % Normal 35.0-44.0 [facility] Comment on above: Performed By: #### L 402.4000 ####Main [facility] ([facility])[address] [phone] Nivar, MD Hemoglobin mass conc (Bld) 12.6 g/dL Normal 12.0-15.0 [facility] Comment on above: Performed By: #### L 402.4000 ####Main Laboratory ([facility])[address] [phone] Nivar, MD Hypochromasia 1+ Normal [facility] Comment on above: Performed By: #### L 402.4000 ####Main [facility] ([facility])[address], [place] [phone] Nivar, MD Lymphocytes Auto #/vol (Bld) 2600 /cmm Normal 9554-9646 [facility] Comment on above: Performed By: #### L 402.4000 ####Main [facility] ([facility])[address] [place] [phone] Nivar, MD Lymphocytes/100 WBC Auto (Bld) 16.2 % Normal 15-45 [facility] Comment on above: Performed By: #### L 402.4000 ####[facility] ([facility])[address] [place], [place] [phone] Nivar, MD MCH Auto Entitic mass (RBC) 26.8 pg Low 27.5-33.0 [facility] Comment on above: Performed By: #### L 402.4000 ####[facility] ([facility])[address] [place] [phone] Nivar, MD MCHC Auto mass conc (RBC) 32.6 g/dL Low 33.0-36.0 [facility] Comment on above: Performed By: #### L 402.4000 ####Main [facility] ([facility])[address] [place], [place] [phone] Nivar, MD MCV Auto Entitic volume (RBC) 82.4 CU EHSAN Normal 80-97 [facility] Comment on above: Performed By: #### L 402.4000 ####Main [facility] ([facility])[address], [place] [phone] Nivar, MD Avery- Auto Diff 6.4 % Normal 2-10 [facility] Comment on above: Performed By: #### L 402.4000 ####Main Laboratory ([facility])[address], [place] [phone] Nivar, MD Neut-Auto Diff 75.2 % High 40-[address] [facility] Comment on above: Performed By: #### L 402.4000 ####Main Laboratory ([facility])[address], [place] [phone] Nivar, MD NRBC-Auto 0.1 /100 WBC Normal <1 [facility] Comment on above: Performed By: #### L 402.4000 ####Main Laboratory ([facility])[address] [phone] Nivar, MD Platelets Auto #/vol (Bld) 390 th/cmm Normal 150-400 [facility] Comment on above: Performed By: #### L 402.4000 ####[facility] ([facility])[address], [place] [phone] Nivar, MD RBC Auto #/vol (Bld) 4.68 mil/cmm Normal 4.00-5.10 [facility] Comment on above: Performed By: #### L 402.4000 ####Main Laboratory ([facility])[address] [phone] Nivar, MD WBC Auto #/vol (Bld) 15.9 th/cmm High 4.4-10.5 [facility] Comment on above: Performed By: #### L 402.4000 ####Main Laboratory ([facility])[address] [phone] Nivar, MD Comprehensive Metabolic Pane shayne 05-02-2018 Albumin mass conc 4.0 g/dL Normal 3.5-5.0 [facility] Comment on above: Performed By: #### L 404.6700 ####Main Laboratory ([facility])[address], [place] [phone] Nivar, MD Albumin/Globulin mass ratio 1.5 {ratio} Normal 1.5-2.5 [facility] Comment on above: Performed By: #### L 404.6700 ####Main [facility] ([facility])[address], [place] [phone] Nivar, MD Alk Phos 100 IU/L Normal 39-118 [facility] Comment on above: Performed By: #### L 404.0 ####[facility] ([facility])[address], [place] [phone] Nivar, MD ALT/SGPT 14 IU/L Normal 10-40 [facility] Comment on above: Performed By: #### L 404.0 ####[facility] ([facility])[address], [place] [phone] Nivar, MD AST/SGOT 17 IU/L Normal 15-41 [facility] Comment on above: Performed By: #### L 404.0 ####[facility] ([facility])[address], [place] [phone] Nivar, MD Bili,Total < 0.1 Low 0.2-1.0 [facility] Comment on above: Performed By: #### L 404.0 ####[facility] ([facility])[address], [place] [phone] Nivar, MD Urea nitrogen mass conc mg/dL Low 7-20 [facility] Comment on above: Performed By: #### L 404.0 ####[facility] ([facility])[address], [place] [phone] Nivar, MD Anion gap 3 molar conc 8 mmol/L Normal 4-12 [facility] Comment on above: Performed By: #### L 404.0 ####[facility] ([facility])[address] [place] [phone] Nivar, MD Calcium mass conc 9.0 mg/dL Normal 8.8-10.5 [facility] Comment on above: Performed By: #### L 404.6700 ####[facility] ([facility])[address] [place] [phone] Nivar, MD Chloride molar conc 105 mmol/L Normal 101-111 [facility] Comment on above: Performed By: #### L 404.6700 ####Main [facility] ([facility])[address] [place] [phone] Nivar, MD CO2 molar conc 24 mmol/L Normal 21-[address] [facility] Comment on above: Performed By: #### L 404.6700 ####Main Laboratory ([facility])[address] [place] [phone] Nivar, MD Creatinine mass conc 0.52 mg/dL Low 0.60-1.30 [facility] Comment on above: Performed By: #### L 404.6700 ####Main [facility] ([facility])[address] [place] [phone] Nivar, MD GFR/1.73 sq M predicted among non-blacks MDRD vol rate/area (S/P/Bld) mL/min/{1.73_m2} Normal [facility] Comment on above: Result Comment: Residential Program Coordinator lorena Kidney Disease stages by NKDFStage eGFR I >90 II 60-89 III 30-59 IV 15-29 V <15 or dialysisAGE(years) AVERAGE GFR 20-29 116 ml/min/1.73 square metersNote:This result is normalized to 1.73 square meter body surface area. Height and weight are not factored. Performed By: #### L 404.6700 ####Main [facility] ([facility])[address] [phone] Nivar, MD Glucose mass conc 101 mg/dL Normal 70-110 [facility] Comment on above: Result Comment: *Thi s reference range applies to fasting specimens only. Performed By: #### L 404.6700 ####Main Laboratory ([facility])[address] [phone] Nivar, MD Potassium molar conc 3.5 mmol/L Low 3.6-5.0 [facility] Comment on above: Performed By: #### L 404.6700 ####Main [facility] ([facility])[address] [phone] Nivar, MD Protein mass conc 6.7 g/dL Normal 6.2-8.0 [facility] Comment on above: Performed By: #### L 404.6700 ####[facility] ([facility])[address] [phone] Nivar, MD Sodium molar conc 137 mmol/L Normal 135-145 [facility] Comment on above: Performed By: #### L 404.6700 ####[facility] ([facility])[address] [phone] Nivar, MD Drug Screen Urineon 05-02-20 18 Amphetamines Negative Normal Negative [facility] Comment on above: Performed By: #### L 402.4000 ####Main Laboratory ([facility])[address] [phone] Nivar, MD Barbiturates Negative Normal Negative [facility] Comment on above: Performed By: #### L 402.4000 ####Main Laboratory ([facility])[address] [phone] Nivar, MD Benzodiazepines Negative Normal Negative [facility] Comment on above: Performed By: #### L 402.4000 ####Main [facility] ([facility])[address], [place] [phone] Nivar, MD Cannabinoids Negative Normal Negative [facility] Comment on above: Performed By: #### L 402.4000 ####[facility] ([facility])[address], [place] [phone] Nivar, MD Cocaine Negative Normal Negative [facility] Comment on above: Performed By: #### L 402.4000 ####Main Laboratory ([facility])[address], [place] [phone] Nivar, MD Opiates Negative Normal Negative [facility] Comment on above: Performed By: #### L 402.4000 ####[facility] ([facility])[address], [place] [phone] Nivar, MD Phencyclidine Negative Normal Negative [facility] Comment on above: Performed By: #### L 402.4000 ####[facility] ([facility])[address], [place] [phone] Nivar, MD Oxycodone Negative Normal Negative [facility] Comment on above: Performed By: #### L 402.4000 ####[facility] ([facility])[address], [place] [phone] Nivar, MD Comment Normal [facility] Comment on above: Result Comment: This drug of abuse screen is not intended for employmentrelated testing and is intended for use in clinicalmanagement of patients. Cut-off Concentrations for Positive ResultsPhencyclidine 25 ng/mLBenzodiazepines 200 ng/mLCocaine 300 ng/mLAmphetamines 1000 ng/mLCannabinoids 100 ng/mLOpiates 300 ng/mLBarbiturates 200 ng/mLOxycodone 100 ng/mL Performed By: #### L 402.4000 ####[facility] ([facility])[address] [phone] Nivar, MD Fibrinogenon 05-02-2018 Fibrinogen 738 mg/dL High 200-400 [facility] Comment on above: Order Comment: Is Pa tient receiving Heparin? No Performed By: #### L 404.6700 ####[facility] ([facility])[address] [place] [phone] Nivar, MD LDHon 05-02-2018 LDH 85 iu/l Low 98-192 [facility] Comment on above: Performed By: #### L 404.6700 ####[facility] ([facility])[address] [phone] Nivar, MD Prothrombin Timeon 8 INR Coag RelTime (PPP) 0.97 {INR} Normal 0.9-1.2 [facility] Comment on above: Order Comment: Is Pa tient receiving Heparin? No Result Comment: Grover dard dose INR: 2.0-3.0High dose INR: 2.5-3.5 Performed By: #### L 402.4000 ####[facility] ([facility])[address] [phone] Nivar, MD Prothrombin time (PT) Coag time (PPP) 11.2 Sec Normal 9.6-13.3 [facility] Comment on above: Order Comment: Is Pa tient receiving Heparin? No Performed By: #### L 402.4000 ####[facility] ([facility])[address] [place] [phone] Nivar, MD Uric Acidon 05-02-2018 Urate mass conc 4.0 mg/dL Normal 2.6-8.0 [facility] Comment on above: Performed By: #### L 404.6700 ####[facility] ([facility])[address] [place] [phone] Nivar, MD Urinalysis with Reflex Cultu reon 05-02-2018 Appearance Cloudy [facility] Comment on above: Order Comment: Urine Source Urine, Clean Catch Performed By: #### L 402.4000 ####[facility] ([facility])[address] [phone] Nivar, MD Bacteria 1+ [facility] Comment on above: Order Comment: Urine Source Urine, Clean Catch Performed By: #### L 402.4000 ####[facility] ([facility])[address] [phone] Nivar, MD Bilirubin Negative Normal Negative [facility] Comment on above: Order Comment: Urine Source Urine, Clean Catch Performed By: #### L 402.4000 ####[facility] ([facility])[address] [phone] Nivar, MD Color Yellow Normal [facility] Comment on above: Order Comment: Urine Source Urine, Clean Catch Performed By: #### L 402.4000 ####[facility] ([facility])[address] [phone] Nivar, MD Epi,Squamous 11-[address] [facility] Comment on above: Order Comment: Urine Source Urine, Clean Catch Performed By: #### L 402.4000 ####[facility] ([facility])[address], [place] [phone] Nivar, MD Glucose Negative Normal Negative [facility] Comment on above: Order Comment: Urine Source Urine, Clean Catch Performed By: #### L 402.4000 ####[facility] ([facility])[address], [place] [phone] Nivar, MD INR Coag RelTime (Bld) 0-2 Normal [facility] Comment on above: Order Comment: Urine Source Urine, Clean Catch Performed By: #### L 402.4000 ####[facility] ([facility])[address], [place] [phone] Nivar, MD Ketones Trace High Negative [facility] Comment on above: Order Comment: Urine Source Urine, Clean Catch Performed By: #### L 402.4000 ####[facility] ([facility])[address], [place] [phone] Nivar, MD Leukocytes Moderate High Negative [facility] Comment on above: Order Comment: Urine Source Urine, Clean Catch Performed By: #### L 402.4000 ####[facility] ([facility])[address], [place] [phone] Nivar, MD Nitrites Negative Normal Negative [facility] Comment on above: Order Comment: Urine Source Urine, Clean Catch Performed By: #### L 402.4000 ####[facility] ([facility])[address], [place] [phone] Nivar, MD pH 7.0 Normal 5.0-8.0 [facility] Comment on above: Order Comment: Urine Source Urine, Clean Catch Performed By: #### L 402.4000 ####[facility] ([facility])[address], [place] [phone] Nivar, MD Protein mass conc Negative Normal Negative [facility] Comment on above: Order Comment: Urine Source Urine, Clean Catch Performed By: #### L 402.4000 ####[facility] ([facility])[address], [place] [phone] Nivar, MD Specific [place] 1.005 Normal 1.000-1.035 [facility] Comment on above: Order Comment: Urine Source Urine, Clean Catch Performed By: #### L 402.4000 ####[facility] ([facility])[address], [place] [phone] Nivar, MD UA Reflex Culture Yes Normal [facility] Comment on above: Order Comment: Urine Source Urine, Clean Catch Result Comment: Cult ure done per lab protocol Performed By: #### L 402.4000 ####[facility] ([facility])[address] [phone] Nivar, MD Urobilinogen <2.0 E.U./dL Normal 0.2-1.[address] [facility] Comment on above: Order Comment: Urine Source Urine, Clean Catch Performed By: #### L 402.4000 ####[facility] ([facility])[address] [phone] Nivar, MD WBC 0-5 Normal [facility] Comment on above: Order Comment: Urine Source Urine, Clean Catch Performed By: #### L 402.4000 ####[facility] ([facility])[address] [phone] Nivar, MD Urine Protein/Creatinine Rat ioon 05-02-2018 Total Protein, Random Urine < 6.0 Normal [facility] Comment on above: Performed By: #### L 402.4000 ####[facility] ([facility])[address] [place] [phone] Nivar, MD Urine Protein/Creatinine Ratio 0.2 g/1.73m2 High <0.15 [facility] Comment on above: Performed By: #### L 402.4000 ####[facility] ([facility])[address] [place] [phone] Nivar, MD Creatinine mass conc (U) 33.6 mg/dL Normal [facility] Comment on above: Performed By: #### L 402.4000 ####[facility] ([facility])[address] [place] [phone] Nivar, MD Nonstress Test Reporton 04-03 Nonstress Test Report [facility] Medical Records Patient: KAYLEEN KOVACS [address] : 1995 [place], [place] [address] Location: OB [phone] Unit #: [id number] Nonstress Test Report Jocelyn Bowen CNM SUBJECTIVE: This 22y.o. patient presented on 04/16/18 from office at 31w4d weeks gestation sent in for [facility] labs. OBJECTIVE: Pt. has no severe features and BP 124/74 P95 R18 T98.4PO Heart Rate: Baseline Heart Rate: 145 Accelerations: Present Decelerations: None Variability: Moderate Contraction Frequency: none The NST was reactive level 1. ASSESSMENT AND PLAN: Discharged to home in stable condition and instructed to follow up at her next scheduled appointment. Jocelyn Bowen CNM cc: Jocelyn Bowen CNM; Wendy Sandoval MD Dictated by: Jocelyn Bowen CNM on 04/24/18424 Entered by: Jocelyn Bowen CNM on 04/24/18424 Report Signed by: Jocelyn Bowen CNM on 04/24/18428 < > Co-Signed by: on Normal [facility] APTTon 04-16-2018 aPTT Coag time (Bld) 27.0 Sec Normal 23.0-38.0 [facility] Comment on above: Order Comment: Is Pa tient receiving Heparin? No Result Comment: APTT of 50.5 to 78.0 secondsrepresents therapeutic rangefor heparin (unfractionated) [facility].This corresponds to a heparinconcentration of 0.3 to 0.7 IU/ml. Performed By: #### L 402.4000 ####Main Laboratory ([facility])[address] [place] [phone] Nivar, MD Blood Urea Nitrogenon 2017 Urea nitrogen mass conc mg/dL Low 7-20 [facility] Comment on above: Performed By: #### B 100.0800 ####[facility] ([facility])[address] [place] [phone] Nivar, MD CBC with Differentialon 04-02 Abs Baso Count 100 /cmm Normal 0-[address] [facility] Comment on above: Performed By: #### B 100.0800 ####[facility] ([facility])[address], [place] [phone] Nivar, MD Abs Eos Count 200 /cmm Normal 0-500 [facility] Comment on above: Performed By: #### B 100.0800 ####[facility] ([facility])[address], [place] [phone] Nivar, MD Abs Avery Count 1000 /cmm High 0-[address] [facility] Comment on above: Performed By: #### B 100.0800 ####[facility] ([facility])[address] [place] [phone] Nivar, MD Abs Neut Count 00267 /cmm High 1736-[address] [facility] Comment on above: Performed By: #### B 100.0800 ####[facility] ([facility])[address], [place] [phone] Nivar, MD Basophils Auto #/vol (Bld) 0.9 % Normal 0-2 [facility] Comment on above: Performed By: #### B 100.0800 ####[facility] ([facility])[address], [place] [phone] Nivar, MD EOS-Auto Diff 1.3 % Normal 0-6 [facility] Comment on above: Performed By: #### B 100.0800 ####[facility] ([facility])[address], [place] [phone] Nivar, MD Erythrocyte distribution width Auto Ratio (RBC) 13.5 % Normal 12.0-16.0 [facility] Comment on above: Performed By: #### B 100.0800 ####[facility] ([facility])[address] [phone] Nivar, MD Hematocrit Auto Volume Fraction (Bld) 37.5 % Normal 35.0-44.0 [facility] Comment on above: Performed By: #### B 100.0800 ####[facility] ([facility])[address] [phone] Nivar, MD Hemoglobin mass conc (Bld) 12.2 g/dL Normal 12.0-15.0 [facility] Comment on above: Performed By: #### B 100.0800 ####[facility] ([facility])[address] [phone] Nivar, MD Hypochromasia 1+ Normal [facility] Comment on above: Performed By: #### B 100.0800 ####[facility] ([facility])[address], [place] [phone] Nivar, MD Lymphocytes Auto #/vol (Bld) 2100 /cmm Normal 6020-6978 [facility] Comment on above: Performed By: #### B 100.0800 ####[facility] ([facility])[address] [phone] Nivar, MD Lymphocytes/100 WBC Auto (Bld) 15.4 % Normal 15-45 [facility] Comment on above: Performed By: #### B 100.0800 ####[facility] ([facility])[address] [phone] Nivar, MD MCH Auto Entitic mass (RBC) 26.6 pg Low 27.5-33.0 [facility] Comment on above: Performed By: #### B 100.0800 ####[facility] ([facility])[address], [place] [phone] Nivar, MD MCHC Auto mass conc (RBC) 32.6 g/dL Low 33.0-36.0 [facility] Comment on above: Performed By: #### B 100.0800 ####[facility] ([facility])[address] [place] [phone] Nivar, MD MCV Auto Entitic volume (RBC) 81.7 CU EHSAN Normal 80-97 [facility] Comment on above: Performed By: #### B 100.0800 ####[facility] ([facility])[address] [place] [phone] Nivar, MD Avery- Auto Diff 7.3 % Normal 2-10 [facility] Comment on above: Performed By: #### B 100.0800 ####[facility] ([facility])[address] [place] [phone] Nivar, MD Neut-Auto Diff 75.1 % High 40-[address] [facility] Comment on above: Performed By: #### B 100.0800 ####[facility] ([facility])[address] [place] [phone] Nivar, MD NRBC-Auto 0.0 /100 WBC Normal <1 [facility] Comment on above: Performed By: #### B 100.0800 ####[facility] ([facility])[address], [place] [phone] Nivar, MD Platelets Auto #/vol (Bld) 394 th/cmm Normal 150-400 [facility] Comment on above: Performed By: #### B 100.0800 ####[facility] ([facility])[address] [place] [phone] Nivar, MD RBC Auto #/vol (Bld) 4.59 mil/cmm Normal 4.00-5.10 [facility] Comment on above: Performed By: #### B 100.0800 ####[facility] ([facility])[address] [place] [phone] Nivar, MD WBC Auto #/vol (Bld) 13.6 th/cmm High 4.4-10.5 [facility] Comment on above: Performed By: #### B 100.0800 ####[facility] ([facility])[address] [place] [phone] Nivar, MD Creatinineon 04-16-2018 Creatinine mass conc 0.43 mg/dL Low 0.60-1.30 [facility] Comment on above: Performed By: #### B 100.0800 ####[facility] ([facility])[address] [place] [phone] Nivar, MD GFR/1.73 sq M predicted among non-blacks MDRD vol rate/area (S/P/Bld) mL/min/{1.73_m2} Normal [facility] Comment on above: Result Comment: Residential Program Coordinator lorena Kidney Disease stages by NKDFStage eGFR I >90 II 60-89 III 30-59 IV 15-29 V <15 or dialysisAGE(years) AVERAGE GFR 20-29 116 ml/min/1.73 square metersNote:This result is normalized to 1.73 square meter body surface area. Height and weight are not factored. Performed By: #### B 100.0800 ####[facility] ([facility])[address] [place] [phone] Nivar, MD Drug Screen Urineon 04-16-20 18 Amphetamines Negative Normal Negative [facility] Comment on above: Performed By: #### L 402.4000 ####[facility] ([facility])[address] [place] [phone] Nivar, MD Barbiturates Negative Normal Negative [facility] Comment on above: Performed By: #### L 402.4000 ####[facility] ([facility])[address], [place] [phone] Nivar, MD Benzodiazepines Negative Normal Negative [facility] Comment on above: Performed By: #### L 402.4000 ####[facility] ([facility])[address], [place] [phone] Nivar, MD Cannabinoids Negative Normal Negative [facility] Comment on above: Performed By: #### L 402.4000 ####[facility] ([facility])[address], [place] [phone] Nivar, MD Cocaine Negative Normal Negative [facility] Comment on above: Performed By: #### L 402.4000 ####[facility] ([facility])[address], [place] [phone] Nivar, MD Opiates Negative Normal Negative [facility] Comment on above: Performed By: #### L 402.4000 ####[facility] ([facility])[address], [place] [phone] Nivar, MD Phencyclidine Negative Normal Negative [facility] Comment on above: Performed By: #### L 402.4000 ####[facility] ([facility])[address], [place] [phone] Nivar, MD Oxycodone Negative Normal Negative [facility] Comment on above: Performed By: #### L 402.4000 ####[facility] ([facility])[address], [place] [phone] Nivar, MD Comment Normal [facility] Comment on above: Result Comment: This drug of abuse screen is not intended for employmentrelated testing and is intended for use in clinicalmanagement of patients. Cut-off Concentrations for Positive ResultsPhencyclidine 25 ng/mLBenzodiazepines 200 ng/mLCocaine 300 ng/mLAmphetamines 1000 ng/mLCannabinoids 100 ng/mLOpiates 300 ng/mLBarbiturates 200 ng/mLOxycodone 100 ng/mL Performed By: #### L 402.4000 ####[facility] ([facility])[address] [phone] Nivar, MD Fibrinogenon 04-16-2018 Fibrinogen 714 mg/dL High 200-400 [facility] Comment on above: Order Comment: Is Saulo pate receiving Heparin? No Performed By: #### L 402.4000 ####[facility] ([facility])[address] [place] [phone] Nivar, MD Hepatic Function Panel (Live r)on 04-16-2018 Albumin mass conc 4.2 g/dL Normal 3.5-5.0 [facility] Comment on above: Performed By: #### B 100.0800 ####[facility] ([facility])[address] [place] [phone] Nivar, MD Alk Phos 84 IU/L Normal 39-118 [facility] Comment on above: Performed By: #### B 100.0800 ####[facility] ([facility])[address] [place] [phone] Nivar, MD ALT/SGPT 15 IU/L Normal 10-40 [facility] Comment on above: Performed By: #### B 100.0800 ####[facility] ([facility])[address] [place] [phone] Nivar, MD AST/SGOT 15 IU/L Normal 15-41 [facility] Comment on above: Performed By: #### B 100.0800 ####[facility] ([facility])[address] [place] [phone] Nivar, MD Bili,Direct < 0.1 Low 0.1-0.2 [facility] Comment on above: Performed By: #### B 100.0800 ####[facility] ([facility])[address], [place] [phone] Nivar, MD Bili,Total < 0.1 Low 0.2-1.0 [facility] Comment on above: Result Comment: Delt a: 0.7 on 03/26/18-1615 Performed By: #### B 100.0800 ####[facility] ([facility])[address], [place] [phone] Nivar, MD Protein mass conc 6.5 g/dL Normal 6.2-8.0 [facility] Comment on above: Performed By: #### B 100.0800 ####[facility] ([facility])[address], [place] [phone] Nivar, MD LDHon 04-16-2018 LDH 80 iu/l Low 98-192 [facility] Comment on above: Performed By: #### B 100.0800 ####[facility] ([facility])[address], [place] [phone] Nivar, MD Nonstress Test Reporton 04-02 Nonstress Test Report [facility] Medical Records Patient: KAYLEEN KOVACS [address] : 1995 [place] [address] Location: [facility] [phone] Unit #: [id number] Nonstress Test Report Audrey Rao (MADDY) SUBJECTIVE: This 22y.o. patient presented on 04/09/18 [...] MD (LMA) cc: Audrey Rao MD; Wendy Sandoval MD Dictated by: Audrey Rao MD (LMA) on 04/09/182012 Entered by: Audrey Rao MD (LMA) on 04/16/18912 Report Signed by: Audrey Rao MD on 04/16/18913 < > Co-Signed by: on Normal [facility] Prothrombin Timeon 8 INR Coag RelTime (PPP) 0.98 {INR} Normal 0.9-1.2 [facility] Comment on above: Order Comment: Is Pa herlinda receiving Heparin? No Result Comment: Grover dard dose INR: 2.0-3.0High dose INR: 2.5-3.5 Performed By: #### B 100.0800 ####[facility] ([facility])[address] [place] [phone] Nivar, MD Prothrombin time (PT) Coag time (PPP) 11.3 Sec Normal 9.6-13.3 [facility] Comment on above: Order Comment: Is Pa herlinda receiving Heparin? No Performed By: #### B 100.0800 ####[facility] ([facility])[address] [place] [phone] Nivar, MD Uric Acidon 04-16-2018 Urate mass conc 3.8 mg/dL Normal 2.6-8.0 [facility] Comment on above: Performed By: #### B 100.0800 ####[facility] ([facility])[address] [place] [phone] Nivar, MD Urinalysis with Reflex Cultu reon 04-16-2018 Appearance Hazy High [facility] Comment on above: Order Comment: Urine Source Urine, Clean Catch Performed By: #### B 100.0800 ####[facility] ([facility])[address] [phone] Nivar, MD Bacteria Trace Normal [facility] Comment on above: Order Comment: Urine Source Urine, Clean Catch Performed By: #### B 100.0800 ####[facility] ([facility])[address] [phone] Nivar, MD Bilirubin Negative Normal Negative [facility] Comment on above: Order Comment: Urine Source Urine, Clean Catch Performed By: #### B 100.0800 ####[facility] ([facility])[address] [phone] Nivar, MD Color Yellow Normal [facility] Comment on above: Order Comment: Urine Source Urine, Clean Catch Performed By: #### B 100.0800 ####[facility] ([facility])[address] [phone] Nivar, MD Epi,Squamous 11-[address] [facility] Comment on above: Order Comment: Urine Source Urine, Clean Catch Performed By: #### B 100.0800 ####[facility] ([facility])[address] [phone] Nivar, MD Glucose Negative Normal Negative [facility] Comment on above: Order Comment: Urine Source Urine, Clean Catch Performed By: #### B 100.0800 ####[facility] ([facility])[address] [phone] Nivar, MD INR Coag RelTime (Bld) 0-2 Normal [facility] Comment on above: Order Comment: Urine Source Urine, Clean Catch Performed By: #### B 100.0800 ####[facility] ([facility])[address] [phone] Nivar, MD Ketones Negative Normal Negative [facility] Comment on above: Order Comment: Urine Source Urine, Clean Catch Performed By: #### B 100.0800 ####[facility] ([facility])[address] [phone] Nivar, MD Leukocytes Trace High Negative [facility] Comment on above: Order Comment: Urine Source Urine, Clean Catch Performed By: #### B 100.0800 ####[facility] ([facility])[address] [phone] Nivar, MD Mucous Present Normal [facility] Comment on above: Order Comment: Urine Source Urine, Clean Catch Performed By: #### B 100.0800 ####[facility] ([facility])[address] [phone] Nivar, MD Nitrites Negative Normal Negative [facility] Comment on above: Order Comment: Urine Source Urine, Clean Catch Performed By: #### B 100.0800 ####[facility] ([facility])[address] [phone] Nivar, MD pH 7.0 Normal 5.0-8.0 [facility] Comment on above: Order Comment: Urine Source Urine, Clean Catch Performed By: #### B 100.0800 ####[facility] ([facility])[address] [phone] Nivar, MD Protein mass conc Negative Normal Negative [facility] Comment on above: Order Comment: Urine Source Urine, Clean Catch Performed By: #### B 100.0800 ####[facility] ([facility])[address] [phone] Nivar, MD Specific [place] 1.008 Normal 1.000-1.035 [facility] Comment on above: Order Comment: Urine Source Urine, Clean Catch Performed By: #### B 100.0800 ####[facility] ([facility])[address] [phone] Nivar, MD UA Reflex Culture No Normal [facility] Comment on above: Order Comment: Urine Source Urine, Clean Catch Result Comment: Cult ure not done per lab protocol Performed By: #### B 100.0800 ####[facility] ([facility])[address] [phone] Nivar, MD Urobilinogen <2.0 E.U./dL Normal 0.2-1.[address] [facility] Comment on above: Order Comment: Urine Source Urine, Clean Catch Performed By: #### B 100.0800 ####[facility] ([facility])[address] [phone] Nivar, MD WBC 0-5 Normal [facility] Comment on above: Order Comment: Urine Source Urine, Clean Catch Performed By: #### B 100.0800 ####[facility] ([facility])[address] [phone] Nivar, MD Urine Protein/Creatinine Rat ioon 04-16-2018 Creatinine mass conc (U) 57.7 mg/dL Normal [facility] Comment on above: Performed By: #### B 100.0800 ####[facility] ([facility])[address] [phone] Nivar, MD Total Protein, Random Urine 8.0 mg/dL Normal [facility] Comment on above: Performed By: #### B 100.0800 ####[facility] ([facility])[address] [phone] Nivar, MD Urine Protein/Creatinine Ratio 0.1 g/1.73m2 Normal <0.15 [facility] Comment on above: Performed By: #### B 100.0800 ####[facility] ([facility])[address] [phone] Nivar, MD AmniSure ROMon 04-09-2018 AmniSure ROM Negative Normal [facility] Comment on above: Result Comment: Rupt ure of amniotic membrane not indicated. Performed By: #### L 300.3000 ####[facility] ([facility])[address], [place] [phone] Nivar, MD Drug Screen Urineon 04-09-20 18 Amphetamines Negative Normal Negative [facility] Comment on above: Performed By: #### L 300.3000 ####[facility] ([facility])[address] [phone] Nivar, MD Barbiturates Negative Normal Negative [facility] Comment on above: Performed By: #### L 300.3000 ####[facility] ([facility])[address] [phone] Nivar, MD Benzodiazepines Negative Normal Negative [facility] Comment on above: Performed By: #### L 300.3000 ####[facility] ([facility])[address] [phone] Nivar, MD Cannabinoids Positive High Negative [facility] Comment on above: Performed By: #### L 300.3000 ####[facility] ([facility])[address] [phone] Nivar, MD Cocaine Negative Normal Negative [facility] Comment on above: Performed By: #### L 300.3000 ####[facility] ([facility])[address] [phone] Nivar, MD Opiates Negative Normal Negative [facility] Comment on above: Performed By: #### L 300.3000 ####[facility] ([facility])[address] [phone] Nivar, MD Phencyclidine Negative Normal Negative [facility] Comment on above: Performed By: #### L 300.3000 ####[facility] ([facility])[address] [phone] Nivar, MD Oxycodone Negative Normal Negative [facility] Comment on above: Performed By: #### L 300.3000 ####[facility] ([facility])[address] [phone] Nivar, MD Comment Normal [facility] Comment on above: Result Comment: This drug of abuse screen is not intended for employmentrelated testing and is intended for use in clinicalmanagement of patients. Cut-off Concentrations for Positive ResultsPhencyclidine 25 ng/mLBenzodiazepines 200 ng/mLCocaine 300 ng/mLAmphetamines 1000 ng/mLCannabinoids 100 ng/mLOpiates 300 ng/mLBarbiturates 200 ng/mLOxycodone 100 ng/mL Performed By: #### L 300.3000 ####[facility] ([facility])[address] [phone] Nivar, MD Urinalysis with Reflex Cultu reon 04-09-2018 Appearance Hazy High [facility] Comment on above: Order Comment: Urine Source Urine, Unknown Collection Performed By: #### L 300.3000 ####[facility] ([facility])[address], [place] [phone] Nivar, MD Bacteria Trace Normal [facility] Comment on above: Order Comment: Urine Source Urine, Unknown Collection Performed By: #### L 300.3000 ####[facility] ([facility])[address] [phone] Nivar, MD Bilirubin Negative Normal Negative [facility] Comment on above: Order Comment: Urine Source Urine, Unknown Collection Performed By: #### L 300.3000 ####[facility] ([facility])[address] [phone] Nivar, MD Color Yellow Normal [facility] Comment on above: Order Comment: Urine Source Urine, Unknown Collection Performed By: #### L 300.3000 ####[facility] ([facility])[address] [phone] Nivar, MD Epi,Squamous 6-10 High [facility] Comment on above: Order Comment: Urine Source Urine, Unknown Collection Performed By: #### L 300.3000 ####[facility] ([facility])[address] [place] [phone] Nivar, MD Glucose Negative Normal Negative [facility] Comment on above: Order Comment: Urine Source Urine, Unknown Collection Performed By: #### L 300.3000 ####[facility] ([facility])[address] [place] [place] [phone] Nivar, MD INR Coag RelTime (Bld) 0-2 Normal [facility] Comment on above: Order Comment: Urine Source Urine, Unknown Collection Performed By: #### L 300.3000 ####[facility] ([facility])[address] [place] [phone] Nivar, MD Ketones Negative Normal Negative [facility] Comment on above: Order Comment: Urine Source Urine, Unknown Collection Performed By: #### L 300.3000 ####[facility] ([facility])[address] [place] [phone] Nivar, MD Leukocytes Negative Normal Negative [facility] Comment on above: Order Comment: Urine Source Urine, Unknown Collection Performed By: #### L 300.3000 ####[facility] ([facility])[address] [place] [phone] Nivar, MD Mucous Present Normal [facility] Comment on above: Order Comment: Urine Source Urine, Unknown Collection Performed By: #### L 300.3000 ####[facility] ([facility])[address] [phone] Nivar, MD Nitrites Negative Normal Negative [facility] Comment on above: Order Comment: Urine Source Urine, Unknown Collection Performed By: #### L 300.3000 ####[facility] ([facility] [facility])[address] [phone] Nivar, MD pH 6.0 Normal 5.0-8.0 [facility] Comment on above: Order Comment: Urine Source Urine, Unknown Collection Performed By: #### L 300.3000 ####[facility] ([facility])[address] [phone] Nivar, MD Protein mass conc Negative Normal Negative [facility] Comment on above: Order Comment: Urine Source Urine, Unknown Collection Performed By: #### L 300.3000 ####[facility] ([facility])[address] [phone] Nivar, MD Specific [place] 1.010 Normal 1.000-1.035 [facility] Comment on above: Order Comment: Urine Source Urine, Unknown Collection Performed By: #### L 300.3000 ####[facility] ([facility])[address] [phone] Nivar, MD UA Reflex Culture No Normal [facility] Comment on above: Order Comment: Urine Source Urine, Unknown Collection Result Comment: Cult ure not done per lab protocol Performed By: #### L 300.3000 ####[facility] ([facility])[address] [phone] Nivar, MD Urobilinogen <2.0 E.U./dL Normal 0.2-1.[address] [facility] Comment on above: Order Comment: Urine Source Urine, Unknown Collection Performed By: #### L 300.3000 ####[facility] ([facility])[address], [place] [phone] Nivar, MD WBC 0-5 Normal [facility] Comment on above: Order Comment: Urine Source Urine, Unknown Collection Performed By: #### L 300.3000 ####[facility] ([facility])[address] [place] [phone] Nivar, MD Nonstress Test Reporton Nonstress Test Report [facility] Medical Records Patient: KAYLEEN KOVACS [address] : 1995 [place], [place] [address] Location: OBOP [phone] Unit #: [id number] Nonstress Test Report Lenora Peña CNM SUBJECTIVE: This 22y.o. patient presented on 03/26/18 [...] Peña CNM cc: Lenora Peña CNM; Wendy Sandoval MD Dictated by: Lenora Peña CNM on 04/02/18 1540 Entered by: Lenora Peña CNM on 04/02/18 1540 Report Signed by: Lenora Peña CNM on 04/02/18 1658 < > Co-Signed by: on Normal [facility] CBC with Differentialon 03-04 Abs Baso Count 100 /cmm Normal 0-[address] [facility] Comment on above: Performed By: #### L 300.3000 ####[facility] ([facility])[address], [place] [phone] Nivar, MD Abs Eos Count 100 /cmm Normal 0-500 [facility] Comment on above: Performed By: #### L 300.3000 ####[facility] ([facility])[address] [phone] Nivar, MD Abs Avery Count 800 /cmm Normal 0-[address] [facility] Comment on above: Performed By: #### L 300.3000 ####[facility] ([facility])[address] [phone] Nivar, MD Abs Neut Count 01762 /cmm High 5945-[address] [facility] Comment on above: Performed By: #### L 300.3000 ####[facility] ([facility])[address], [place] [phone] Nivar, MD Basophils Auto #/vol (Bld) 0.8 % Normal 0-2 [facility] Comment on above: Performed By: #### L 300.3000 ####[facility] ([facility])[address], [place] [phone] Nivar, MD EOS-Auto Diff 0.9 % Normal 0-6 [facility] Comment on above: Performed By: #### L 300.3000 ####[facility] ([facility])[address], [place] [phone] Nivar, MD Erythrocyte distribution width Auto Ratio (RBC) 13.8 % Normal 12.0-16.0 [facility] Comment on above: Performed By: #### L 300.3000 ####[facility] ([facility])[address], [place] [phone] Nivar, MD Hematocrit Auto Volume Fraction (Bld) 38.2 % Normal 35.0-44.0 [facility] Comment on above: Performed By: #### L 300.3000 ####[facility] ([facility])[address], [place] [phone] Nivar, MD Hemoglobin mass conc (Bld) 12.4 g/dL Normal 12.0-15.0 [facility] Comment on above: Performed By: #### L 300.3000 ####[facility] ([facility])[address] [place], [place] [phone] Nivar, MD Hypochromasia 1+ Normal [facility] Comment on above: Performed By: #### L 300.3000 ####[facility] ([facility])[address], [place] [phone] Nivar, MD Lymphocytes Auto #/vol (Bld) 2200 /cmm Normal 7845-3719 [facility] Comment on above: Performed By: #### L 300.3000 ####[facility] ([facility])[address] [place] [phone] Nivar, MD Lymphocytes/100 WBC Auto (Bld) 16.1 % Normal 15-45 [facility] Comment on above: Performed By: #### L 300.3000 ####[facility] ([facility])[address] [place] [phone] Nivar, MD MCH Auto Entitic mass (RBC) 26.7 pg Low 27.5-33.0 [facility] Comment on above: Performed By: #### L 300.3000 ####[facility] ([facility])[address] [place], [place] [phone] Nivar, MD MCHC Auto mass conc (RBC) 32.4 g/dL Low 33.0-36.0 [facility] Comment on above: Performed By: #### L 300.3000 ####[facility] ([facility])[address], [place] [phone] Nivar, MD MCV Auto Entitic volume (RBC) 82.4 CU EHSAN Normal 80-97 [facility] Comment on above: Performed By: #### L 300.3000 ####[facility] ([facility])[address] [phone] Nivar, MD Avery- Auto Diff 5.9 % Normal 2-10 [facility] Comment on above: Performed By: #### L 300.3000 ####[facility] ([facility])[address] [phone] Nivar, MD Neut-Auto Diff 76.3 % High 40-[address] [facility] Comment on above: Performed By: #### L 300.3000 ####[facility] ([facility])[address] [phone] Nivar, MD NRBC-Auto 0.0 /100 WBC Normal <1 [facility] Comment on above: Performed By: #### L 300.3000 ####[facility] ([facility])[address], [place] [phone] Nivar, MD Platelets Auto #/vol (Bld) 437 th/cmm High 150-400 [facility] Comment on above: Performed By: #### L 300.3000 ####[facility] ([facility])[address] [phone] Nivar, MD RBC Auto #/vol (Bld) 4.63 mil/cmm Normal 4.00-5.10 [facility] Comment on above: Performed By: #### L 300.3000 ####[facility] ([facility])[address], [place] [phone] Nivar, MD WBC Auto #/vol (Bld) 13.7 th/cmm High 4.4-10.5 [facility] Comment on above: Performed By: #### L 300.3000 ####[facility] ([facility])[address], [place] [phone] Nivar, MD Comprehensive Metabolic Pane shayne 03-26-2018 Albumin mass conc 3.8 g/dL Normal 3.5-5.0 [facility] Comment on above: Performed By: #### L 300.3000 ####[facility] ([facility])[address], [place] [phone] Nivar, MD Albumin/Globulin mass ratio 1.3 {ratio} Low 1.5-2.5 [facility] Comment on above: Performed By: #### L 300.3000 ####[facility] ([facility])[address] [phone] Nivar, MD Alk Phos 85 IU/L Normal 39-118 [facility] Comment on above: Performed By: #### L 300.3000 ####[facility] ([facility])[address], [place] [phone] Nivar, MD ALT/SGPT 12 IU/L Normal 10-40 [facility] Comment on above: Performed By: #### L 300.3000 ####[facility] ([facility])[address], [place] [phone] Nivar, MD AST/SGOT 14 IU/L Low 15-41 [facility] Comment on above: Performed By: #### L 300.3000 ####[facility] ([facility])[address], [place] [phone] Nivar, MD Bili,Total 0.7 mg/dL Normal 0.2-1.0 [facility] Comment on above: Performed By: #### L 300.3000 ####[facility] ([facility])[address], [place] [phone] Nivar, MD Urea nitrogen mass conc mg/dL Low 7-20 [facility] Comment on above: Performed By: #### L 300.3000 ####[facility] ([facility])[address] [phone] Nivar, MD Anion gap 3 molar conc 11 mmol/L Normal 4-12 [facility] Comment on above: Performed By: #### L 300.3000 ####[facility] ([facility])[address] [phone] Nivar, MD Calcium mass conc 9.0 mg/dL Normal 8.8-10.5 [facility] Comment on above: Performed By: #### L 300.3000 ####[facility] ([facility])[address] [phone] Nivar, MD Chloride molar conc 101 mmol/L Normal 101-111 [facility] Comment on above: Performed By: #### L 300.3000 ####[facility] ([facility])[address] [phone] Nivar, MD CO2 molar conc 22 mmol/L Normal 21-[address] [facility] Comment on above: Performed By: #### L 300.3000 ####[facility] ([facility])[address] [phone] Nivar, MD Creatinine mass conc 0.45 mg/dL Low 0.60-1.30 [facility] Comment on above: Performed By: #### L 300.3000 ####[facility] ([facility])[address] [phone] Nivar, MD GFR/1.73 sq M predicted among non-blacks MDRD vol rate/area (S/P/Bld) mL/min/{1.73_m2} Normal [facility] Comment on above: Result Comment: Residential Program Coordinator lorena Kidney Disease stages by NKDFStage eGFR I >90 II 60-89 III 30-59 IV 15-29 V <15 or dialysisAGE(years) AVERAGE GFR 20-29 116 ml/min/1.73 square metersNote:This result is normalized to 1.73 square meter body surface area. Height and weight are not factored. Performed By: #### L 300.3000 ####[facility] ([facility])[address] [phone] Nivar, MD Glucose mass conc 80 mg/dL Normal 70-110 [facility] Comment on above: Result Comment: *Thi s reference range applies to fasting specimens only. Performed By: #### L 300.3000 ####[facility] ([facility])[address] [phone] Nivar, MD Potassium molar conc 3.4 mmol/L Low 3.6-5.0 [facility] Comment on above: Performed By: #### L 300.3000 ####[facility] ([facility])[address] [phone] Nivar, MD Protein mass conc 6.7 g/dL Normal 6.2-8.0 [facility] Comment on above: Performed By: #### L 300.3000 ####[facility] ([facility])[address] [phone] Nivar, MD Sodium molar conc 134 mmol/L Low 135-145 [facility] Comment on above: Performed By: #### L 300.3000 ####[facility] ([facility])[address] [phone] Nivar, MD Drug Screen Urineon 03-26-20 18 Amphetamines Negative Normal Negative [facility] Comment on above: Performed By: #### L 300.3000 ####[facility] ([facility])[address] [phone] Nivar, MD Barbiturates Negative Normal Negative [facility] Comment on above: Performed By: #### L 300.3000 ####[facility] ([facility])[address], [place] [phone] Nivar, MD Benzodiazepines Negative Normal Negative [facility] Comment on above: Performed By: #### L 300.3000 ####[facility] ([facility])[address], [place] [phone] Nivar, MD Cannabinoids Positive High Negative [facility] Comment on above: Performed By: #### L 300.3000 ####[facility] ([facility])[address], [place] [phone] Nivar, MD Cocaine Negative Normal Negative [facility] Comment on above: Performed By: #### L 300.3000 ####[facility] ([facility])[address] [place], [place] [phone] Nivar, MD Opiates Negative Normal Negative [facility] Comment on above: Performed By: #### L 300.3000 ####[facility] ([facility])[address], [place] [phone] Nivar, MD Phencyclidine Negative Normal Negative [facility] Comment on above: Performed By: #### L 300.3000 ####[facility] ([facility])[address], [place] [phone] Nivar, MD Oxycodone Negative Normal Negative [facility] Comment on above: Performed By: #### L 300.3000 ####[facility] ([facility])[address], [place] [phone] Nivar, MD Comment Normal [facility] Comment on above: Result Comment: This drug of abuse screen is not intended for employmentrelated testing and is intended for use in clinicalmanagement of patients. Cut-off Concentrations for Positive ResultsPhencyclidine 25 ng/mLBenzodiazepines 200 ng/mLCocaine 300 ng/mLAmphetamines 1000 ng/mLCannabinoids 100 ng/mLOpiates 300 ng/mLBarbiturates 200 ng/mLOxycodone 100 ng/mL Performed By: #### L 300.3000 ####[facility] ([facility])[address] [phone] Nivar, MD Uric Acidon 03-26-2018 Urate mass conc 3.8 mg/dL Normal 2.6-8.0 [facility] Comment on above: Performed By: #### L 300.3000 ####[facility] ([facility])[address] [phone] Nivar, MD Urinalysis with Reflex Cultu reon 03-26-2018 Appearance Hazy [facility] Comment on above: Order Comment: Urine Source Urine, Unknown Collection Performed By: #### L 300.3000 ####[facility] ([facility])[address] [phone] Nivar, MD Bacteria 1+ High [facility] Comment on above: Order Comment: Urine Source Urine, Unknown Collection Performed By: #### L 300.3000 ####[facility] ([facility])[address] [place] [phone] Nivar, MD Bilirubin Negative Normal Negative [facility] Comment on above: Order Comment: Urine Source Urine, Unknown Collection Performed By: #### L 300.3000 ####[facility] ([facility])[address] [phone] Nivar, MD Color Yellow Normal [facility] Comment on above: Order Comment: Urine Source Urine, Unknown Collection Performed By: #### L 300.3000 ####[facility] ([facility])[address] [phone] Nivar, MD Epi,Squamous 21-50 High [facility] Comment on above: Order Comment: Urine Source Urine, Unknown Collection Performed By: #### L 300.3000 ####[facility] ([facility])[address] [phone] Nivar, MD Glucose Negative Normal [facility] Comment on above: Order Comment: Urine Source Urine, Unknown Collection Performed By: #### L 300.3000 ####[facility] ([facility])[address] [phone] Nivar, MD INR Coag RelTime (Bld) 0-2 Normal [facility] Comment on above: Order Comment: Urine Source Urine, Unknown Collection Performed By: #### L 300.3000 ####[facility] ([facility])[address] [place] [phone] Nivar, MD Ketones Negative Normal Negative [facility] Comment on above: Order Comment: Urine Source Urine, Unknown Collection Performed By: #### L 300.3000 ####[facility] ([facility])[address] [phone] Nivar, MD Leukocytes Trace High Negative [facility] Comment on above: Order Comment: Urine Source Urine, Unknown Collection Performed By: #### L 300.3000 ####[facility] ([facility])[address] [phone] Nivar, MD Mucous Present Normal [facility] Comment on above: Order Comment: Urine Source Urine, Unknown Collection Performed By: #### L 300.3000 ####[facility] ([facility])[address] [place] [phone] Nivar, MD Nitrites Negative Normal Negative [facility] Comment on above: Order Comment: Urine Source Urine, Unknown Collection Performed By: #### L 300.3000 ####[facility] ([facility])[address] [place] [phone] Nivar, MD pH 7.0 Normal 5.0-8.0 [facility] Comment on above: Order Comment: Urine Source Urine, Unknown Collection Performed By: #### L 300.3000 ####[facility] ([facility])[address] [phone] Nivar, MD Protein mass conc Negative Normal Negative [facility] Comment on above: Order Comment: Urine Source Urine, Unknown Collection Performed By: #### L 300.3000 ####[facility] ([facility])[address] [place] [phone] Fuentes MD Specific [place] 1.011 Normal 1.000-1.035 [facility] Comment on above: Order Comment: Urine Source Urine, Unknown Collection Performed By: #### L 300.3000 ####[facility] ([facility])[address] [place] [phone] Nivar, MD UA Reflex Culture No Normal [facility] Comment on above: Order Comment: Urine Source Urine, Unknown Collection Result Comment: Cult ure not done per lab protocol Performed By: #### L 300.3000 ####[facility] ([facility])[address] [place] [phone] Nivar, MD Urobilinogen <2.0 E.U./dL Normal 0.2-1.[address] [facility] Comment on above: Order Comment: Urine Source Urine, Unknown Collection Performed By: #### L 300.3000 ####[facility] ([facility])[address] [place] [phone] Nivar, MD WBC 0-5 Normal [facility] Comment on above: Order Comment: Urine Source Urine, Unknown Collection Performed By: #### L 300.3000 ####[facility] ([facility])[address] [place] [phone] Nivar, MD Urine Protein/Creatinine Rat ioon 03-26-2018 Creatinine mass conc (U) 61.6 mg/dL Normal [facility] Comment on above: Performed By: #### L 300.3000 ####[facility] ([facility])[address] [place] [phone] Nivar, MD Total Protein, Random Urine 7.0 mg/dL Normal [facility] Comment on above: Performed By: #### L 300.3000 ####[facility] ([facility])[address] [place] [phone] Nivar, MD Urine Protein/Creatinine Ratio 0.1 g/1.73m2 Normal <0.15 [facility] Comment on above: Performed By: #### L 300.3000 ####[facility] ([facility])[address] [place] [phone] Nivar, MD Urine culture, reflexon 12-31 Urine culture, reflex No growth(<10,000 CFU/ml)of urinary tract pathogens. Tobias present are not the usual etiologic agents of a urinary tract infection and probably represent vaginal,urethral, or skin tobias. Contact Microbiology at extension [phone] if further information is needed. ORGANISM 1: Mixed tobias- 3 species presentColony count >100,000 CFU/ml Normal [facility] Comment on above: Performed By: #### M 120.0050 ####[facility] ([facility])[address] [place], [place] [phone] Nivar, MD HIV 1&2 Evaluationon 018 HIV 1&2 Evaluation Nonreactive Normal Nonreactive [facility] Comment on above: Performed By: #### L 800.0100, L800.0300, L800.0400, L800.4806 ####[facility] ([facility])[address] [place] [phone] Nivar, MD Hemoglobin A1Con 01-12-2018 Glucose mass conc 97 mg/dL Normal [facility] Comment on above: Result Comment: ana mated Average Glucose(eAG) calculation has been modifiedto reflect guidelines established by the [place] [employer]. This change does not affect the %A1c,howeverindividuals that closely monitor the eAG may notice a slightshift in their results. Performed By: #### L 404.6700 ####[facility] ([facility])[address] [place] [phone] Nivar, MD Hemoglobin A1c/Hemoglobin.total mass fraction (Bld) 5.0 % Normal 4.4-6.4 [facility] Comment on above: Performed By: #### L 404.6700 ####[facility] ([facility])[address] [place] [phone] Nivar, MD Hepatitis B Surface Agon Hepatitis B Surface Ag Nonreactive Normal Nonreactive [facility] Comment on above: Performed By: #### L 800.0100, L800.0300, L800.0400, L800.4806 ####[facility] ([facility])[address] [place] [phone] Nivar, MD RPRon 01-12-2018 RPR / VDRL NonReactive Normal NonReactive [facility] Comment on above: Performed By: #### L 800.0100, L800.0300, L800.0400, L800.4806 ####[facility] ([facility])[address] [place] [phone] Nivar, MD Rubella IgG Antibodyon 01-12 Rubella IgG Antibody Reactive Normal [facility] Comment on above: Performed By: #### L 800.0100, L800.0300, L800.0400, L800.4806 ####[facility] ([facility])[address] [place] [phone] Nivar, MD Complete Blood Counton 01-11 Abs Baso Count 100 /cmm Normal 0-[address] [facility] Comment on above: Performed By: #### L 100.0000 ####[facility] ([facility])[address], [place] [phone] Nivar, MD Abs Eos Count 100 /cmm Normal 0-500 [facility] Comment on above: Performed By: #### L 100.0000 ####[facility] ([facility])[address], [place] [phone] Nivar, MD Abs Avery Count 1200 /cmm High 0-[address] [facility] Comment on above: Performed By: #### L 100.0000 ####[facility] ([facility])[address], [place] [phone] Nivar, MD Abs Neut Count 54060 /cmm High 0459-[address] [facility] Comment on above: Performed By: #### L 100.0000 ####Main Laboratory ([facility])[address] [phone] Nivar, MD Basophils Auto #/vol (Bld) 0.3 % Normal 0-2 [facility] Comment on above: Performed By: #### L 100.0000 ####Main Laboratory ([facility])[address] [phone] Nivar, MD EOS-Auto Diff 0.8 % Normal 0-6 [facility] Comment on above: Performed By: #### L 100.0000 ####Main Laboratory ([facility])[address], [place] [phone] Nivar, MD Erythrocyte distribution width Auto Ratio (RBC) 13.4 % Normal 12.0-16.0 [facility] Comment on above: Performed By: #### L 100.0000 ####Main Laboratory ([facility])[address] [phone] Nivar, MD Hematocrit Auto Volume Fraction (Bld) 38.1 % Normal 35.0-44.0 [facility] Comment on above: Performed By: #### L 100.0000 ####Main Laboratory ([facility])[address] [phone] Nivar, MD Hemoglobin mass conc (Bld) 12.8 g/dL Normal 12.0-15.0 [facility] Comment on above: Performed By: #### L 100.0000 ####Main Laboratory ([facility])[address] [phone] Nivar, MD Hypochromasia 1+ Normal [facility] Comment on above: Performed By: #### L 100.0000 ####Main Laboratory ([facility])[address] [phone] Nivar, MD Lymphocytes Auto #/vol (Bld) 2000 /cmm Normal 8383-3040 [facility] Comment on above: Performed By: #### L 100.0000 ####Main Laboratory ([facility])[address] [phone] Nivar, MD Lymphocytes/100 WBC Auto (Bld) 12.0 % Low 15-45 [facility] Comment on above: Performed By: #### L 100.0000 ####Main Laboratory ([facility])[address] [phone] Nivar, MD MCH Auto Entitic mass (RBC) 26.8 pg Low 27.5-33.0 [facility] Comment on above: Performed By: #### L 100.0000 ####Main Laboratory ([facility])[address] [phone] Nivar, MD MCHC Auto mass conc (RBC) 33.6 g/dL Normal 33.0-36.0 [facility] Comment on above: Performed By: #### L 100.0000 ####Main Laboratory ([facility])[address] [phone] Nivar, MD MCV Auto Entitic volume (RBC) 80.0 CU EHSAN Normal 80-97 [facility] Comment on above: Performed By: #### L 100.0000 ####Main Laboratory ([facility])[address] [phone] Nivar, MD Avery- Auto Diff 7.2 % Normal 2-10 [facility] Comment on above: Performed By: #### L 100.0000 ####Main Laboratory ([facility])[address] [phone] Nivar, MD Neut-Auto Diff 79.7 % High 40-[address] [facility] Comment on above: Performed By: #### L 100.0000 ####Main Laboratory ([facility])[address] [phone] Nivar, MD NRBC-Auto 0.0 /100 WBC Normal <1 [facility] Comment on above: Performed By: #### L 100.0000 ####Main Laboratory ([facility])[address] [phone] Nivar, MD Platelets Auto #/vol (Bld) 413 th/cmm High 150-400 [facility] Comment on above: Performed By: #### L 100.0000 ####Main Laboratory ([facility])[address] [phone] Nivar, MD RBC Auto #/vol (Bld) 4.77 mil/cmm Normal 4.00-5.10 [facility] Comment on above: Performed By: #### L 100.0000 ####Main Laboratory ([facility])[address] [phone] Nivar, MD WBC Auto #/vol (Bld) 16.9 th/cmm High 4.4-10.5 [facility] Comment on above: Performed By: #### L 100.0000 ####Main Laboratory ([facility])[address] [phone] Nivar, MD Drug Screen Urineon 01-12-20 18 Oxycodone Negative Normal Negative [place] [facility] Comment on above: Performed By: #### L 402.4000 ####Main Laboratory ([facility])[address] [phone] Nivar, MD Amphetamines Negative Normal Negative [place] [facility] Comment on above: Performed By: #### L 402.4000 ####Main Laboratory ([facility])[address] [phone] Nivar, MD Barbiturates Negative Normal Negative [facility] Comment on above: Performed By: #### L 402.4000 ####Main Laboratory ([facility])[address] [phone] Nivar, MD Benzodiazepines Negative Normal Negative [facility] Comment on above: Performed By: #### L 402.4000 ####Main Laboratory ([facility])[address] [phone] Nivar, MD Cannabinoids Positive High Negative [place] [facility] Comment on above: Performed By: #### L 402.4000 ####Main Laboratory ([facility])[address] [phone] Nivar, MD Cocaine Negative Normal Negative [place] [facility] Comment on above: Performed By: #### L 402.4000 ####Main Laboratory ([facility])[address], [place] [phone] Nivar, MD Opiates Negative Normal Negative [facility] Comment on above: Performed By: #### L 402.4000 ####Main Laboratory ([facility])[address] [place] [phone] Nivar, MD Phencyclidine Negative Normal Negative [facility] Comment on above: Performed By: #### L 402.4000 ####Main Laboratory ([facility])[address] [place] [phone] Nivar, MD Comment Normal [facility] Comment on above: Result Comment: This drug of abuse screen is not intended for employmentrelated testing and is intended for use in clinicalmanagement of patients. Cut-off Concentrations for Positive ResultsPhencyclidine 25 ng/mLBenzodiazepines 200 ng/mLCocaine 300 ng/mLAmphetamines 1000 ng/mLCannabinoids 100 ng/mLOpiates 300 ng/mLBarbiturates 200 ng/mLOxycodone 100 ng/mL Performed By: #### L 402.4000 ####Main Laboratory ([facility])[address] [place] [phone] Nivar, MD Type and Screen/Prenatalon 0 01-11-2018 AB Screen (IAT) Negative Normal [facility] Comment on above: Performed By: #### B 100.0800 ####Main Laboratory ([facility])[address] [place] [phone] Nivar, MD ABO and Rh group Nom (Bld) O Positive Normal [facility] Comment on above: Performed By: #### B 100.0800 ####Main Laboratory ([facility])[address] [phone] Nivar, MD Urinalysis with Reflex Cultu reon 01-11-2018 Appearance Cloudy High [facility] Comment on above: Order Comment: Urine Source Urine, Unknown Collection Performed By: #### L 300.3000 ####Main Laboratory ([facility])[address] [phone] Nivar, MD Bacteria Trace Normal [facility] Comment on above: Order Comment: Urine Source Urine, Unknown Collection Performed By: #### L 300.3000 ####Main Laboratory ([facility])[address] [phone] Nivar, MD Bilirubin Negative Normal Negative [facility] Comment on above: Order Comment: Urine Source Urine, Unknown Collection Performed By: #### L 300.3000 ####Main Laboratory ([facility])[address] [phone] Nivar, MD Color Yellow Normal [facility] Comment on above: Order Comment: Urine Source Urine, Unknown Collection Performed By: #### L 300.3000 ####Main Laboratory ([facility])[address] [phone] Nivar, MD Epi,Squamous 11-20 High [facility] Comment on above: Order Comment: Urine Source Urine, Unknown Collection Performed By: #### L 300.3000 ####Main Laboratory ([facility])[address] [phone] Nivar, MD Glucose Negative Normal Negative [facility] Comment on above: Order Comment: Urine Source Urine, Unknown Collection Performed By: #### L 300.3000 ####Main Laboratory ([facility])[address] [phone] Nivar, MD INR Coag RelTime (Bld) 0-2 Normal [facility] Comment on above: Order Comment: Urine Source Urine, Unknown Collection Performed By: #### L 300.3000 ####Main Laboratory ([facility])[address] [phone] Nivar, MD Ketones Negative Normal Negative [facility] Comment on above: Order Comment: Urine Source Urine, Unknown Collection Performed By: #### L 300.3000 ####Main Laboratory ([facility])[address] [phone] Nivar, MD Leukocytes Moderate High Negative [facility] Comment on above: Order Comment: Urine Source Urine, Unknown Collection Performed By: #### L 300.3000 ####Main Laboratory ([facility])[address] [phone] Nivar, MD Mucous Present Normal [facility] Comment on above: Order Comment: Urine Source Urine, Unknown Collection Performed By: #### L 300.3000 ####Main Laboratory ([facility])[address] [phone] Nivar, MD Nitrites Negative Normal Negative [facility] Comment on above: Order Comment: Urine Source Urine, Unknown Collection Performed By: #### L 300.3000 ####Main Laboratory ([facility])[address] [phone] Nivar, MD pH 6.0 Normal 5.0-8.0 [facility] Comment on above: Order Comment: Urine Source Urine, Unknown Collection Performed By: #### L 300.3000 ####Main Laboratory ([facility])[address] [phone] Nivar, MD Protein mass conc Negative Normal Negative [facility] Comment on above: Order Comment: Urine Source Urine, Unknown Collection Performed By: #### L 300.3000 ####Main Laboratory ([facility])[address] [phone] Nivar, MD Specific [place] 1.016 Normal 1.000-1.035 [facility] Comment on above: Order Comment: Urine Source Urine, Unknown Collection Performed By: #### L 300.3000 ####Main Laboratory ([facility])[address] [phone] Nivar, MD UA Reflex Culture Yes Normal [facility] Comment on above: Order Comment: Urine Source Urine, Unknown Collection Result Comment: Cult ure done per lab protocol Performed By: #### L 300.3000 ####Main Laboratory ([facility])[address] [place], [place] [phone] Nivar, MD Urobilinogen <2.0 E.U./dL Normal 0.2-1.[address] [facility] Comment on above: Order Comment: Urine Source Urine, Unknown Collection Performed By: #### L 300.3000 ####Main Laboratory ([facility])[address], [place] [phone] Nivar, MD WBC 0-5 Normal [facility] Comment on above: Order Comment: Urine Source Urine, Unknown Collection Performed By: #### L 300.3000 ####Main Laboratory ([facility])[address] [place], [place] [address]karley [place], [place] [phone] Nivar, MD Culture-Urineon 11-30-2017 Urine culture, bacteria SEE BELOW Normal [facility] Comment on above: Order Comment: Order ing Doctor: Jeffrey Salgadoformed by [facility] [employer] [facility] [address], [id number] Result Comment: Sour ce: urineSite: clean voidCollected: 11/30/17 08:29Current Antibiotics: not statedAntibiotics comment: STATUS OF ORDERED AND REPORTED TESTSURINE CULTURE FINAL 12/01/17URINE CULTURE FINAL 12/01/17 09: Growth of Contaminants. The mixture of organisms present are not a common cause of urinary tract infections and probably represent skin tobias or distal urethral tobias. Performed By: #### 1 362524, 6547552 ####[place] [address] [place], [place] [phone]#### 8186801, 4736009, 3828894, 1227770, 5377852, 6457764, 9688057 ####Please refer to Result Comment for Performing Lab Location Urinalysis w/Reflex C and So n 11-30-2017 SG >=1.030 Normal 1.010-1.025 [facility] Comment on above: Order Comment: Order ing Doctor: Jeffrey Salgadoformed by [facility] [address] [place] [address] Performed By: #### 1 552914, 4261028 ####[place] [address] [place], [place] [phone]#### 8943040, 6817300, 0139239, 4941593, 3667457, 9421060, 9629230 ####Please refer to Result Comment for Performing Lab Location UABLD Negative Normal NEGATIVE [facility] Comment on above: Order Comment: Order ing Doctor: Jeffrey Salgadoformed by [facility] [place] [address] Performed By: #### 1 533088, 1420881 ####[place] [address] [place], [place] [phone]#### 8271630, 9848311, 3906461, 9447832, 0361934, 4308580, 9331183 ####Please refer to Result Comment for Performing Lab Location UAGLU Negative Normal NEGATIVE [facility] Comment on above: Order Comment: Order ing Doctor: Jeffrey Salgadoformed by [facility] [place] [address] Performed By: #### 1 168619, 2652066 ####[place] [address] [place], [place] [phone]#### 2766904, 5080944, 4942842, 5549471, 9132018, 7927340, 3534005 ####Please refer to Result Comment for Performing Lab Location UAKET >=80 Normal NEGATIVE [facility] Comment on above: Order Comment: Order ing Doctor: Jeffrey Salgadoformed by [facility] [place] [address] Performed By: #### 1 928876, 4855234 ####[place] [address] [place], [place] [phone]#### 2770913, 6401487, 6411051, 1392579, 2022310, 5911028, 5740220 ####Please refer to Result Comment for Performing Lab Location UALEUK Negative Normal NEGATIVE [facility] Comment on above: Order Comment: Order ing Doctor: Jeffrey [place] [address] Performed By: #### 1 588391, 1584757 ####[place] [address] [place], [place] [phone]#### 6791230, 5302784, 9466477, 8968155, 5469688, 5776151, 8891164 ####Please refer to Result Comment for Performing Lab Location UANIT Negative Normal NEGATIVE [facility] Comment on above: Order Comment: Order ing Doctor: Jeffrey [place] [address] Performed By: #### 1 225948, 3249002 ####[place] [address] [place], [place] [phone]#### 6343907, 1492198, 7457439, 4391203, 1635965, 1565321, 5819545 ####Please refer to Result Comment for Performing Lab Location UAPH 6.0 Normal 5.0-8.0 [facility] Comment on above: Order Comment: Order ing Doctor: Jeffrey [place] [address] Performed By: #### 1 205708, 8333215 ####[place] [address] [place], [place] 03262013-718-5147#### 2981428, 0599553, 4022871, 9026729, 3549809, 7974709, 9215563 ####Please refer to Result Comment for Performing Lab Location UAPRO 30 mg/dL Normal NEGATIVE [facility] Comment on above: Order Comment: Order ing Doctor: Damian Jeffreyformed by [facility] [address] [place] [address] Performed By: #### 1 322846, 5011702 ####[place] [address] [place], [place] [phone]#### 1448379, 0985151, 5597378, 5262165, 0804868, 2298534, 5984439 ####Please refer to Result Comment for Performing Lab Location UAURO 2.0 E.U./dL Normal 0.2-1.0 [facility] Comment on above: Order Comment: Order ing Doctor: Damian JoseMagnoliaformed by [facility] [address] [place] [address] Performed By: #### 1 026894, 2539022 ####[place] [address] [place] [address] [phone]#### 0181476, 2658734, 4516078, 6175334, 9142901, 9904348, 3823795 ####Please refer to Result Comment for Performing Lab Location UCLAR CLOUDY Normal CLEAR [facility] Comment on above: Order Comment: Order ing Doctor: Damian JoseMagnoliaformed by [place] [address] Performed By: #### 1 839549, 2633522 ####[place] [address] [place], [place] [phone]#### 0731883, 5265357, 9875146, 9999019, 4717260, 3598171, 7002676 ####Please refer to Result Comment for Performing Lab Location UMIC YES Normal NO [facility] Comment on above: Order Comment: Order ing Doctor: Jeffrey Salgadoformed by [facility] [address] [place] [address] Performed By: #### 1 124003, 8950751 ####[place] [address] [place], [place] [phone]#### 7977624, 3358617, 3280123, 5392471, 7180174, 7895273, 9091266 ####Please refer to Result Comment for Performing Lab Location Urine, color YELLOW Normal YELLOW [facility] Comment on above: Order Comment: Order ing Doctor: Jeffrey Salgadoformed [place] [address] Performed By: #### 1 111496, 3090432 ####[place] [address] [place], [place] 10270546-067-4216#### 6549653, 6112220, 1076989, 5906214, 3241036, 4226387, 9104100 ####Please refer to Result Comment for Performing Lab Location Urine, urobilinogen SMALL Normal NEGATIVE [facility] Comment on above: Order Comment: Order ing Doctor: Jeffrey [place] [address] Performed By: #### 1 016376, 3945975 ####[place] [address] [place], [place] [phone]#### 9526799, 7640212, 1950356, 6626957, 8095790, 3472220, 0095881 ####Please refer to Result Comment for Performing Lab Location Urinalysis-Microscopic Refle x C AND Son 11-30-2017 JAMSHID empty Normal NONE SEEN [facility] Comment on above: Order Comment: Order ing Doctor: Jeffrey Salgadoformed [place] [address] Performed By: #### 1 344771, 4717613 ####[place] [address] [place], [place] 70810489-889-3003#### 6294096, 9690410, 7941391, 2862749, 7277566, 1829889, 8576165 ####Please refer to Result Comment for Performing Lab Location AMORPH empty Normal NONE SEEN [facility] Comment on above: Order Comment: Order ing Doctor: Jeffrey [place] [address] Performed By: #### 1 353263, 1604642 ####[place] [address] [place], [place] 02830491-770-7957#### 7186209, 4749050, 3280356, 9782530, 0612194, 0332847, 2719797 ####Please refer to Result Comment for Performing Lab Location CALC OX empty Normal NONE SEEN [facility] Comment on above: Order Comment: Order ing Doctor: Jeffrey [place] [address] Performed By: #### 1 114518, 6224102 ####[place] [address] [place] [address] [phone]#### 2291019, 3617166, 3625068, 1311365, 7302371, 1610396, 9058908 ####Please refer to Result Comment for Performing Lab Location Cholesterol empty Normal NONE SEEN [facility] Comment on above: Order Comment: Order ing Doctor: Jeffrey [place] [address] Performed By: #### 1 276012, 7085406 ####[place] [address] [place] [address] [phone]#### 2002351, 6960506, 2978390, 6984682, 3109019, 8309725, 7577829 ####Please refer to Result Comment for Performing Lab Location COARSE GRAN empty Normal NONE SEEN [facility] Comment on above: Order Comment: Order ing Doctor: Jeffrey Salgadoformed by [facility] [employer] [facility] [address] [place] [address] Performed By: #### 1 031718, 0501619 ####[place] [address] [place], [place] 27556423-211-0684#### 2151958, 1010722, 8919956, 8137045, 7639072, 7037067, 5299077 ####Please refer to Result Comment for Performing Lab Location CTSIND YES Normal NO [facility] Comment on above: Order Comment: Order ing Doctor: Jeffrey [place] [address] Performed By: #### 1 611666, 5947224 ####[place] [address] [place], [place] 50410935-791-6360#### 9417357, 3506186, 7459384, 9345225, 3844381, 0423489, 5758765 ####Please refer to Result Comment for Performing Lab Location Erythrocytes (RBC) empty Normal NONE SEEN [facility] Comment on above: Order Comment: Order ing Doctor: Jeffrey [place] [address] Performed By: #### 1 115000, 8168479 ####[place] [address] [place], [place] 30207694-535-4317#### 0165466, 6649879, 3531060, 5838671, 4393558, 3648683, 8326339 ####Please refer to Result Comment for Performing Lab Location FINE GRAN empty Normal NONE SEEN [facility] Comment on above: Order Comment: Order ing Doctor: Jeffrey [place] [address] Performed By: #### 1 428844, 1667800 ####[place] [address] [place], [place] [phone]#### 5857396, 6213952, 4445670, 8006899, 4051204, 0602211, 3292536 ####Please refer to Result Comment for Performing Lab Location HYAL CAST empty Normal 0-2 [facility] Comment on above: Order Comment: Order ing Doctor: Jeffrey [place] [address] Performed By: #### 1 187725, 9558296 ####[place] [address] [place], [place] 68503597-144-5764#### 2854730, 9487817, 3583958, 1766026, 5197128, 3589364, 6619892 ####Please refer to Result Comment for Performing Lab Location SPERM PRESENT Normal NONE SEEN [facility] Comment on above: Order Comment: Order ing Doctor: Jeffrey [place] [address] Performed By: #### 1 697861, 0591535 ####[place] [address] [place], [place] [phone]#### 1689478, 8642938, 4721396, 7065161, 5577053, 6468731, 4129875 ####Please refer to Result Comment for Performing Lab Location TRIP PHOS empty Normal NONE SEEN [facility] Comment on above: Order Comment: Order ing Doctor: Jeffrey Salgadoformed by [facility] [place] [address] Performed By: #### 1 507981, 1429361 ####[place] [address] [place], [place] 45398013-703-7271#### 2907867, 4119236, 9910424, 2148699, 7175381, 4959112, 6475539 ####Please refer to Result Comment for Performing Lab Location UCAST NONE SEEN Normal NONE SEEN [facility] Comment on above: Order Comment: Order ing Doctor: Jeffrey Salgadoformed by [facility] [place] [address] Performed By: #### 1 107079, 5585938 ####[place] [address] [place], [place] 73322027-792-0067#### 1876170, 4060269, 5103349, 4019836, 8282447, 2351654, 5521026 ####Please refer to Result Comment for Performing Lab Location UCRYS NONE SEEN Normal NONE SEEN [facility] Comment on above: Order Comment: Order ing Doctor: Jeffrey Salgadoformed by [facility] [address] [place] [address] Performed By: #### 1 182135, 3519124 ####[place] [address] [place], [place] 18609261-817-5838#### 8587890, 5553725, 9437606, 1154244, 8228217, 6363281, 4356125 ####Please refer to Result Comment for Performing Lab Location UMUC NONE SEEN Normal NONE SEEN [facility] Comment on above: Order Comment: Order ing Doctor: Jeffrey Salgadoformed by [facility] [address] [place] [address] Performed By: #### 1 302525, 6145244 ####[place] [address] [place], [place] 14297045-335-4967#### 1835768, 7507181, 8058938, 1419911, 0372231, 9141654, 6327618 ####Please refer to Result Comment for Performing Lab Location UOTH empty Normal NONE [facility] Comment on above: Order Comment: Order ing Doctor: Jeffrey Salgadoformed by [facility] [address] [place] [address] Performed By: #### 1 836705, 2796603 ####[place] [address] [place], [place] 03432500-495-4944#### 1696400, 2733554, 7694800, 7952802, 5979783, 3794905, 1979451 ####Please refer to Result Comment for Performing Lab Location Urate empty Normal NONE SEEN [facility] Comment on above: Order Comment: Order ing Doctor: Jeffrey Salgadoformed by [facility] [address] [place] [address] Performed By: #### 1 145644, 9993073 ####[place] [address] [place], [place] [phone]#### 8308160, 2039060, 0473838, 1891789, 9304219, 3886021, 4433816 ####Please refer to Result Comment for Performing Lab Location UREPI empty Normal NONE SEEN [facility] Comment on above: Order Comment: Order ing Doctor: Jeffrey Salgadoformed by [email or web address] [address] [place] [address] Performed By: #### 1 310778, 9383138 ####[place] [address] [place], [place] 86687787-997-7504#### 1905059, 9670090, 5729283, 5632374, 4883771, 6699862, 9563360 ####Please refer to Result Comment for Performing Lab Location Urine, bacteria in sediment 4+ Normal NONE SEEN [facility] Comment on above: Order Comment: Order ing Doctor: Jeffrey Salgadoformed [email or web address] [address] Performed By: #### 1 764678, 8600856 ####[place] [address] [place], [place] [phone]#### 6676208, 4346614, 0267981, 0701097, 8412956, 9423447, 2297212 ####Please refer to Result Comment for Performing Lab Location Urine, erythrocytes 5-[address] [facility] Comment on above: Order Comment: Order ing Doctor: Jeffrey Salgadoformed by [email or web address] [address] [place] [address] Performed By: #### 1 284438, 4111994 ####[place] [address] [place], [place] 38588308-304-8186#### 2379110, 5027515, 1879006, 3930431, 0710137, 3390522, 9871203 ####Please refer to Result Comment for Performing Lab Location Urine, leukocytes 5-10 Normal 0-5 [facility] Comment on above: Order Comment: Order ing Doctor: Jeffrey Salgadoformed by [email or web address] [address] [place] [address] Performed By: #### 1 494478, 3349709 ####[place] [address] [place], [place] [phone]#### 5368489, 5379726, 8198760, 6432013, 3694820, 1860346, 4541509 ####Please refer to Result Comment for Performing Lab Location Urine, yeast presence in sediment empty Normal NONE SEEN [facility] Comment on above: Order Comment: Order ing Doctor: Jeffrey Salgadoformed by [facility] Real Time Translation [facility] [address] [place] [address] Performed By: #### 1 305826, 5623047 ####[place] [address] [place], [place] 08648154-348-2930#### 7307389, 6021937, 1001709, 6356116, 5490271, 4683658, 7391338 ####Please refer to Result Comment for Performing Lab Location USEPI 25-50 Normal NONE SEEN [facility] Comment on above: Order Comment: Order ing Doctor: Jeffrey Salgadoformed by [facility] [place] [address] Performed By: #### 1 845790, 7012663 ####[place] [address] [place], [place] 09140836-858-0627#### 2376194, 2657943, 1828927, 7606805, 7199447, 1211903, 9754389 ####Please refer to Result Comment for Performing Lab Location UTEPI empty Normal NONE SEEN [facility] Comment on above: Order Comment: Order ing Doctor: Jeffrey Salgadoformed by [facility] [place] [address] Performed By: #### 1 418143, 6657482 ####[place] [address] [place], [place] 08793404-997-5910#### 5206273, 3200989, 0358195, 8282392, 9822096, 2385183, 1463085 ####Please refer to Result Comment for Performing Lab Location WAXY CASTS empty Normal NONE SEEN [facility] Comment on above: Order Comment: Order ing Doctor: Jeffrey [place] [address] Performed By: #### 1 491895, 4355931 ####[place] [address] [place], [place] 24789829-912-8999#### 8210928, 6773668, 2442764, 8693607, 8151167, 3784469, 3671691 ####Please refer to Result Comment for Performing Lab Location WBC (Leukocytes) empty Normal NONE SEEN [facility] Comment on above: Order Comment: Order ing Doctor: Jeffrey [place] [address] Performed By: #### 1 368498, 2886046 ####[address] 64057550-005-0799#### 5273075, 4470301, 3338174, 8875354, 9157142, 0295602, 4825015 ####Please refer to Result Comment for Performing Lab Location Chlamydia trachomatis Neisse shasha gonorrhoeae by Juan 11-22-2017 C. TRACHOMATIS RT-PCR NOT DETECTED Normal [facility] Comment on above: Order Comment: Order ing Doctor: [place] [address] Result Comment: No C hlamydia trachomatis detected by Real Time - PolymeraseChain Reaction. This testing method is contraindicatedduring antibiotic therapy.This test is intended for medical purposes only and is notvalid for the evaluation of suspected sexual abuse or for otherforensic purposes. In certain contexts, cultures maybe requiredto meet applicable laws and regulations for the diagnosis ofC. trachomatis infections. Performed By: #### 1 038653, 4051797 ####[place] [address] [place], [place] [phone]#### 4450539, 9755543, 5470528, 7530776, 4508997, 6000326, 9471032 ####Please refer to Result Comment for Performing Lab Location N. GONORRHOEAE RT-PCR NOT DETECTED Normal [facility] Comment on above: Order Comment: Order ing Doctor: Jeffery [place] [address] Result Comment: No N eissera gonorrhoeae detected by Real Time - PolymeraseChain Reaction. This testing method is contraindicatedduring antibiotic therapy.This test is intended for medical purposes only and is notvalid for the evaluation of suspected sexual abuse or for otherforensic purposes. In certain contexts, cultures maybe requiredto meet applicable laws and regulations for the diagnosis ofN. gonorrhoeae infections. Performed By: #### 1 063272, 6823282 ####[address] 84902881-148-9810#### 0988260, 9678693, 3234811, 8275180, 3006843, 8729691, 8895662 ####Please refer to Result Comment for Performing Lab Location SOURCE URINE Normal [facility] Comment on above: Order Comment: Order ing Doctor: Jeffrey [place] [address] Performed By: #### 1 657470, 8629466 ####[address] 60385061-788-4800#### 4184821, 9728796, 5222941, 5628309, 6340510, 0727322, 0889962 ####Please refer to Result Comment for Performing Lab Location Auto Differentialon 11-16-19 18 Basophils/100 WBC Auto (Bld) 1.0 % Normal 0.0-3.0 [facility] Comment on above: Order Comment: Order ing Doctor: Jeffrey [place] [address] Performed By: #### 1 747422, 5786715 ####[place] [address] [place] [address] 31742304-575-3348#### 0048972, 1694184, 2514452, 7682009, 0369406, 8707886, 8569523 ####Please refer to Result Comment for Performing Lab Location Eosinophils/100 leukocytes 1.1 % Normal 0.0-4.0 [facility] Comment on above: Order Comment: Order ing Doctor: Jeffrey [place] [address] Performed By: #### 1 455278, 6540921 ####[place] [address] [place], [place] 20553758-879-5254#### 5060080, 7383796, 7519159, 3955670, 6300081, 8288639, 1612619 ####Please refer to Result Comment for Performing Lab Location Lymphocytes/100 leukocytes 22.5 % Normal 20.5-51.1 [facility] Comment on above: Order Comment: Order ing Doctor: Jeffrey [place] [address] Performed By: #### 1 180285, 4955669 ####[place] [address] [place], [place] 47607396-335-0338#### 8221430, 6658760, 6555860, 6052215, 0864280, 6629990, 1307053 ####Please refer to Result Comment for Performing Lab Location Monocytes/100 leukocytes 7.4 % Normal 0.0-13.0 [facility] Comment on above: Order Comment: Order ing Doctor: Jeffrey [place] [address] Performed By: #### 1 582743, 6041383 ####[place] [address] [place], [place] 85680875-038-8953#### 8478130, 5738282, 8518771, 2607289, 6508761, 5026454, 0253405 ####Please refer to Result Comment for Performing Lab Location SCAN NO Normal NO [facility] Comment on above: Order Comment: Order ing Doctor: DamianJoseMagnolia[place] [address] Performed By: #### 1 871288, 3348769 ####[place] [address] [place], [place] 28974467-585-5925#### 6606995, 7341735, 5543787, 6290334, 1343420, 6174857, 2802415 ####Please refer to Result Comment for Performing Lab Location Segmented Neutrophils/100 leukocytes 68.0 % Normal 42.2-75.2 [facility] Comment on above: Order Comment: Order ing Doctor: Damian JoseMagn[place] [address] Performed By: #### 1 913340, 5015078 ####[address] 76931833-992-4867#### 7934627, 8405372, 5072226, 0079810, 2633181, 8738549, 6186356 ####Please refer to Result Comment for Performing Lab Location Complete Blood Counton 11-15 Erythrocyte distribution width Auto Ratio (RBC) 14.0 % Normal 11.5-14.5 [facility] Comment on above: Order Comment: Order ing Doctor: Damian JoseMagn[place] [address] Performed By: #### 1 792265, 9404944 ####[place] [address] [place], [place] 21270101-739-3233#### 2219342, 9215176, 2500964, 1859755, 5836302, 3942096, 4408128 ####Please refer to Result Comment for Performing Lab Location Erythrocytes (RBC) 5.19 mil/cumm Normal 4.20-5.40 [facility] Comment on above: Order Comment: Order ing Doctor: Jeffrey Salgadoformed by [facility] [place] [address] Performed By: #### 1 402065, 7820059 ####[place] [address] [place], [place] 37348747-487-7215#### 9444009, 3988232, 8574096, 6023006, 6059714, 3645133, 0146987 ####Please refer to Result Comment for Performing Lab Location Hematocrit (HCT) 42.1 % Normal 37.0-47.0 [facility] Comment on above: Order Comment: Order ing Doctor: Jeffrey [place] [address] Performed By: #### 1 944659, 2633378 ####[place] [address] [place] [address] [phone]#### 1140578, 2686943, 9909845, 4455880, 0169857, 3041395, 4235248 ####Please refer to Result Comment for Performing Lab Location Hemoglobin mass conc (Bld) 13.7 g/dL Normal 12.0-16.0 [facility] Comment on above: Order Comment: Order ing Doctor: Jeffrey [place] [address] Performed By: #### 1 522370, 5728622 ####[place] [address] [place] [address] 15979113-980-9409#### 9587011, 1407768, 7825521, 8991333, 7253041, 8612979, 9417214 ####Please refer to Result Comment for Performing Lab Location MCH 26.3 pg Low 28.0-32.0 [facility] Comment on above: Order Comment: Order ing Doctor: Jeffrey Salgadoformed by [place] [address] Performed By: #### 1 325165, 5195054 ####[place] [address] [place] [address] 62888900-716-4471#### 3906196, 9338100, 6852390, 3972752, 0728827, 4430751, 4126812 ####Please refer to Result Comment for Performing Lab Location MCHC mass conc (RBC) 32.5 g/dL Low 33.0-37.0 [facility] Comment on above: Order Comment: Order ing Doctor: Jeffrey Salgadoformed by [facility] [address] [place] [address] Performed By: #### 1 658426, 6498690 ####[place] [address] [place], [place] 24219084-302-8326#### 9634485, 1729863, 6672760, 5906575, 3761206, 3568111, 5501089 ####Please refer to Result Comment for Performing Lab Location MCV 81.0 fL Normal 81.0-99.0 [facility] Comment on above: Order Comment: Order ing Doctor: Jeffrey [place] [address] Performed By: #### 1 576427, 6527046 ####[place] [address] [place], [place] 18722038-806-0069#### 6742625, 0400915, 3758880, 2689172, 6122284, 5160639, 3247736 ####Please refer to Result Comment for Performing Lab Location Platelets 400 thou/cumm Normal 130-400 [facility] Comment on above: Order Comment: Order ing Doctor: Jeffrey Salgadoformed by [facility] [address] [place] [address] Performed By: #### 1 353173, 9672008 ####[place] [address] [place], [place] 09905658-386-8256#### 5864260, 6055691, 7597129, 8657574, 9999922, 8327168, 3820090 ####Please refer to Result Comment for Performing Lab Location WBC (Leukocytes) 12.8 thou/cumm High 4.8-10.8 [facility] Comment on above: Order Comment: Order ing Doctor: Jeffrey [place] [address] Performed By: #### 1 509096, 5822116 ####[place] [address] [place], [place] 08699454-143-0549#### 3728109, 0164502, 4244871, 9898063, 0637746, 2925053, 1294450 ####Please refer to Result Comment for Performing Lab Location Quantitative BHCGon 11-16-19 18 [place] [address].0 m[IU]/mL High 0.0-5.0 [facility] Comment on above: Order Comment: Order ing Doctor: Jeffrey [place] [address] Result Comment: [facility] Gestational Age hCG mIU/mL 0.2 - 1 [...] - 5 mIU/mL Performed By: #### 1 926614, 1983489 ####[place] [address] [place], [place] 16803524-163-4184#### 8955808, 2854542, 6364264, 4729235, 1954462, 8634870, 0834073 ####Please refer to Result Comment for Performing Lab Location Type and Screenon 11-15-2017 ABO O Normal [facility] Comment on above: Order Comment: Order ing Doctor: Jeffrey Salgadoformed [place] [address] Performed By: #### 1 610875, 0325124 ####[place] [address] [place], [place] 97275526-597-6507#### 1128263, 0676378, 7209696, 1761995, 1662559, 8751583, 3640195 ####Please refer to Result Comment for Performing Lab Location ABS Negative Normal NEGATIVE [facility] Comment on above: Order Comment: Order ing Doctor: Jeffrey Salgadoformed by [facility] [address] Performed By: #### 1 796933, 7506895 ####[place] [address] [place], [place] 26191219-765-2771#### 7829365, 4561214, 3178205, 1638570, 2877268, 1283673, 5291186 ####Please refer to Result Comment for Performing Lab Location Rh type Positive Normal [facility] Comment on above: Order Comment: Order ing Doctor: Jeffrey Salgadoformed by [address] Performed By: #### 1 644496, 0607024 ####[place] [address] [place], [place] 47597768-724-2312#### 6488000, 0922296, 4189435, 2335108, 9669678, 5549035, 3176207 ####Please refer to Result Comment for Performing Lab Location TTS COMPLETED Normal [facility] Comment on above: Order Comment: Order ing Doctor: Jeffrey Salgadoformed by [facility] Real Time Translation [address] Performed By: #### 1 689317, 1256678 ####[place] [address] [place], [place] 95564330-104-9360#### 7587927, 9467739, 3571839, 2780322, 1690064, 3796113, 6278159 ####Please refer to Result Comment for Performing Lab Location TTSEXP 11/18/2017 [facility] Comment on above: Order Comment: Order ing Doctor: Jeffrey Salgadoformed by [facility] Real Time Translation [address], [place] Result Comment: Resu lt amended from (11/22/17) (11/15/2017 20:13) to (11/18/2017) by AN. Performed By: #### 1 978122, 5677911 ####[place] [address] [place], [place] 91425639-472-3176#### 2291131, 6491654, 9236959, 8064389, 2822621, 7624893, 5668627 ####Please refer to Result Comment for Performing Lab Location US-TRANSVAGINAL (OB)on 11-15 US-TRANSVAGINAL (OB) PROCEDURE: ULS - US-TRANSVAGINAL (OB) ([id number])Relevant History: bleedingRESULT: Patient Name: KAYLEEN KOVACSPatient : 1995Examination: US-TRANSVAGINAL (OB)Date of Exam: 11/15/2017 [...] appropriate for the firsttrimester. heart rate: 162 bpm.[place] rump length: 27.5 mm.Gestational age: 9 weeks and 6 days.EDC: 06/14/2018.Ovaries and adenxa: Unremarkable bilateral ovaries.Cul de sac: There is no significant free fluid visualizedIMPRESSION:L dali IUP with no abnormality demonstrated.Professio nal Interpretation by RadiologyElectronicall y SignedBy: Hector Tovar MDOn: 11/15/2017 7:27 PMTechnologist Initials: AMCExam Completion Time: Nov 15 2017 7:16PMTranscribed By: DENITA Nov 15 2017 7:28PReading Physician: HECTOR TOVAR M.D.Electronically Signed by: HECTOR TOVAR M.D. on: Nov 15 2017 7:28P Normal [facility] Comment on above: Order Comment: Order ing Doctor: Jeffrey Salgadoformed by [facility] [address] [place] [address], [id number] Test, Urineon 10-02 UPREG Positive Normal [facility] Comment on above: Order Comment: Order ing Doctor: Jeffrey Salgadoformed by [email or web address] [address] [place] [address], [id number] Performed By: #### 1 453187, 9692174 ####[place] [address] [place], [place] 83632537-708-5358#### 4198437, 3938274, 0506368, 2982366, 5013517, 9129200, 9479658 ####Please refer to Result Comment for Performing Lab Location MRI SPINE/CERVICAL W/O CONTR Valery 10-19-2017 MRI SPINE/CERVICAL W/O CONTRAST PROCEDURE: MRI - MRI SPINE/CERVICAL W/O CONTRAST ([id number])Relevant History: strain neck muscles, initial encounterRESULT: Patient [...] l Interpretation by RadiologyElectronicall y SignedBy: Russ Varghese MDOn: 10/19/2017 6:59 PMTechnologist Initials: [id number] Completion Time: Oct 19 2017 4:20PMTranscribed By: DENITA Oct 19 2017 7:00PReading Physician: RUSS VARGHESE M.D.Electronically Signed by: RUSS VARGHESE M.D. on: Oct 19 2017 7:00P [facility] Comment on above: Order Comment: Order ing Doctor: Timoteo Salgado MRI SPINE/LUMBAR W/O DIVYA Ton 10-19-2017 MRI SPINE/LUMBAR W/O CONTRAST PROCEDURE: MRI - MRI SPINE/LUMBAR W/O CONTRAST ([id number])Relevant History: strain lumbar region initial encounterRESULT: Patient Name: KAYLEEN KOVACSPatient : 1995Examination: MRI SPINE/LUMBAR W/O CONTRASTDate of [...] desiccation and degenerative disc disease at the L4-M9beycb6. Disc bulge at the L4-L5 level with mild broad-based central bulgeor protrusion. Mild effacement of anterior thecal sac and facethypertrophy. No significant stenosis.3. Mild levoscoliosis of the lumbar spine.Professional Interpretation by RadiologyElectronicall y SignedBy: Russ Varghese MDOn: 10/19/2017 6:59 PMTechnologist Initials: [id number] Completion Time: Oct 19 2017 4:20PMTranscribed By: DENITA Oct 19 2017 7:00PReading Physician: RUSS VARGHESE M.D.Electronically Signed by: RUSS VARGHESE M.D. on: Oct 19 2017 7:00P Normal [facility] Comment on above: Order Comment: Order ing Doctor: Timoteo Salgado CHEST PA AND LATERALon 08-15 CHEST PA AND LATERAL PROCEDURE: XRA - CH EST PA AND LATERAL ([id number])Relevant History: FeverRESULT: Patient Name: KAYLEEN KOVACSPatient : 1995Examination: CHEST PA AND LATERALDate of Exam: 08/15/2017 8:51 AMOrdering Provider: ARIANA SINGHomparison: 08/27/2016Relevant Clinical Information: Flulike symptoms, fever, shortness ofbreath, chest pain, smokerNUMBER OF VIEWS: Two viewsDISCUSSION: The heart is normal in size and configuration. Themediastinum appears normal. No pulmonary infiltrations or masses arepresent. The pulmonary vasculature appears normal. The thoracicskeleton appears unremarkable.IMPRESSIO N:No acute cardiopulmonary disease.Electronically SignedBy: Tavares Flores MDOn: 08/15/2017 8:54 AMTechnologist Initials: [email or web address] [id number] Completion Time: Aug 15 2017 8:51AMTranscribed By: DENITA Aug 15 2017 8:55AReading Physician: TAVARES FLORES M.D.Electronically Signed by: TAVARES FLORES M.D. on: Aug 15 2017 8:55A Normal [facility] Comment on above: Order Comment: Order ing Doctor: Timoteo Salgado Culture-Throat/Noseon 2017 THROAT/NOSE CULTURE SEE BELOW Normal [facility] Comment on above: Order Comment: Order ing Doctor: Timoteo Salgado Result Comment: Sour ce: throatSite:Collected: 08/15/17 08:40Current Antibiotics: not statedAntibiotics comment: STATUS OF ORDERED AND REPORTED TESTSTHROAT/NOSE CULTURE FINAL 08/17/17THROAT/NOSE CULTURE FINAL 08/17/17 08: Normal tobias- epnbtwswuul52/15/18 Normal tobias Performed By: #### 1 174920, 6947879 ####[place] [address] [place], [place] 35516856-946-8707#### 7440063, 6459617, 6554141, 7286059, 5845521, 4907015, 9880326 ####Please refer to Result Comment for Performing Lab Location Group A Rapid Strepon 2017 SS Negative Normal NEGATIVE [facility] Comment on above: Order Comment: Order ing Doctor: Timoteo Salgado Performed By: #### 1 933857, 0093030 ####[place] [address] [place], [place] 48548525-125-4322#### 9439335, 2787529, 3019532, 7649397, 0581439, 6141709, 1501512 ####Please refer to Result Comment for Performing Lab Location Culture-Urineon 06-30-2017 Urine culture, bacteria SEE BELOW Normal [facility] Comment on above: Order Comment: Order ing Doctor: Timoteo Salgado Result Comment: Sour ce: urineSite: clean voidCollected: 06/30/17 12:34Current Antibiotics: noneAntibiotics comment: STATUS OF ORDERED AND REPORTED TESTSURINE CULTURE FINAL 07/02/17URINE CULTURE FINAL 07/02/17 06:51 Organism 01 Escherichia coli [place] count: >100,000 CFU/mL Organism 01-esccolAntibiotic EHSAN Intrp [...] mg q 12 h 4.6Trimethoprim/Matthews <=20 S XJ861wzZSQ/800mgSMX q 32g6-7QQQ/94-77L29-43QBR/97SM IV 160mgTMP/800mgSMX q 8 h9TMP/105SMXCefuroxime I IV [...] PDR or pharmacist. Performed By: #### 1 208340, 2288966 ####[place] [address] [place], [place] 26613668-727-8898#### 5078946, 3865148, 6053012, 6948076, 7604640, 7906384, 8391234 ####Please refer to Result Comment for Performing Lab Location Test, Urineon 12-2 UPREG Negative Normal [facility] Comment on above: Order Comment: Order ing Doctor: Timoteo Salgado Performed By: #### 1 059955, 7807450 ####[place] [address] [place], [place] 41409635-679-8236#### 8371736, 7550205, 1814250, 9513900, 4583285, 8423676, 0853839 ####Please refer to Result Comment for Performing Lab Location Cancelled by Lab Normal [facility] Comment on above: Result Comment: CANC ELLED Performed By: #### 1 028387, 0005815 ####[place] [address] [place], [place] 85584215-745-6949#### 8942190, 4133276, 9330009, 7313867, 9952383, 2440264, 5301527 ####Please refer to Result Comment for Performing Lab Location Urinalysis w/Reflex C and So n 06-30-2017 SG 1.015 Normal 1.010-1.025 [facility] Comment on above: Order Comment: Order ing Doctor: Timoteo Salgado Performed By: #### 1 406432, 6400423 ####[place] [address] [place], [place] 43898686-572-9103#### 5701045, 3317066, 9779665, 3664708, 5149094, 8422711, 9060769 ####Please refer to Result Comment for Performing Lab Location UABLD LARGE Normal NEGATIVE [facility] Comment on above: Order Comment: Order ing Doctor: Timoteo Salgado Performed By: #### 1 282629, 2561610 ####[place] [address] [place], [place] 55694937-871-5278#### 1983997, 3243670, 0654372, 1341534, 6796754, 0488479, 6105408 ####Please refer to Result Comment for Performing Lab Location UAGLU Negative Normal NEGATIVE [facility] Comment on above: Order Comment: Order ing Doctor: Timoteo Salgado Performed By: #### 1 958616, 6571368 ####[place] [address] [place], [place] 78039484-194-7687#### 0884233, 7455051, 3974038, 3998736, 2848219, 4963515, 4260960 ####Please refer to Result Comment for Performing Lab Location UAKET 15 mg/dL Normal NEGATIVE [facility] Comment on above: Order Comment: Order ing Doctor: Timoteo Salgado Performed By: #### 1 102733, 4368173 ####[place] [address] [place], [place] 17449308-827-6904#### 5130418, 4810319, 0493639, 8150080, 3826136, 7805997, 3318858 ####Please refer to Result Comment for Performing Lab Location UALEUK MODERATE Normal NEGATIVE [facility] Comment on above: Order Comment: Order ing Doctor: Timoteo Salgado Performed By: #### 1 613967, 8751815 ####[place] [address] [place], [place] 97483503-372-0951#### 6772303, 5437308, 2054612, 9434750, 3874283, 8458976, 3722007 ####Please refer to Result Comment for Performing Lab Location UANIT Positive Normal NEGATIVE [facility] Comment on above: Order Comment: Order ing Doctor: Timoteo Salgado Performed By: #### 1 220168, 1204323 ####[place] [address] [place], [place] 11747964-364-3995#### 8841750, 3674431, 7729821, 3746720, 3630229, 3115635, 9184499 ####Please refer to Result Comment for Performing Lab Location UAPH 7.0 Normal 5.0-8.0 [facility] Comment on above: Order Comment: Order ing Doctor: Timoteo Salgado Performed By: #### 1 235449, 6160573 ####[place] [address] [place], [place] 93224500-138-3917#### 5074317, 5321158, 2409673, 6740710, 0123767, 7158624, 7068585 ####Please refer to Result Comment for Performing Lab Location UAPRO >=300 Normal NEGATIVE [facility] Comment on above: Order Comment: Order ing Doctor: Timoteo Salgado Performed By: #### 1 051271, 1974733 ####[place] [address] [place], [place] 81937407-929-7019#### 1134799, 1856560, 1445487, 0879303, 2183405, 1755256, 8626277 ####Please refer to Result Comment for Performing Lab Location UAURO 4.0 E.U./dL Normal 0.2-1.0 [facility] Comment on above: Order Comment: Order ing Doctor: Timoteo Salgado Performed By: #### 1 846646, 7559496 ####[place] [address] [place], [place] 53083844-055-3771#### 5540015, 0077373, 3613343, 7204898, 2327023, 7564666, 5392794 ####Please refer to Result Comment for Performing Lab Location UCLAR TURBID Normal CLEAR [facility] Comment on above: Order Comment: Order ing Doctor: Timoteo Salgado Performed By: #### 1 443876, 4687496 ####[place] [address] [place], [place] 20786779-384-5905#### 4754369, 4513650, 8757157, 5389721, 2936536, 7825437, 4429322 ####Please refer to Result Comment for Performing Lab Location UMIC YES Normal NO [facility] Comment on above: Order Comment: Order ing Doctor: Timoteo Salgado Performed By: #### 1 842494, 7024442 ####[place] [address] [place], [place] 06882112-975-0895#### 2168864, 6726549, 2884550, 0247330, 3916201, 6678755, 2871109 ####Please refer to Result Comment for Performing Lab Location Urine, color BROWN Normal YELLOW [facility] Comment on above: Order Comment: Order ing Doctor: Timoteo Salgado Performed By: #### 1 951598, 6008682 ####[place] [address], [place] 07278394-020-9476#### 3112614, 3263169, 1602509, 4765648, 4798803, 6582353, 6751704 ####Please refer to Result Comment for Performing Lab Location Urine, urobilinogen LARGE Normal NEGATIVE [facility] Comment on above: Order Comment: Order ing Doctor: Timoteo Salgado Performed By: #### 1 661321, 3450625 ####[place] [address] [place], [place] 73513274-217-6653#### 7559896, 3304586, 4945895, 9430163, 1686996, 9729765, 2267451 ####Please refer to Result Comment for Performing Lab Location Cancelled by Lab Normal [facility] Comment on above: Result Comment: CANC ELLED Performed By: #### 1 004439, 9382228 ####[place] [address] [place], [place] 00300382-979-4815 Urinalysis-Microscopic Refle x C AND Son 06-30-2017 JAMSHID empty Normal NONE SEEN [facility] Comment on above: Order Comment: Order ing Doctor: Timoteo Salgado Performed By: #### 1 485323, 7266934 ####[place] [address], [place] 41830123-459-5197#### 7092006, 4765575, 4112620, 9958290, 5205121, 2693160, 3378739 ####Please refer to Result Comment for Performing Lab Location AMORPH empty Normal NONE SEEN [facility] Comment on above: Order Comment: Order ing Doctor: Timoteo Salgado Performed By: #### 1 709623, 9907476 ####[place] [address] [place], [place] 03324250-207-4193#### 9631720, 5509776, 7265558, 8596555, 1365201, 9552969, 0754446 ####Please refer to Result Comment for Performing Lab Location CALC OX empty Normal NONE SEEN [facility] Comment on above: Order Comment: Order ing Doctor: Timoteo Salgado Performed By: #### 1 015835, 7686910 ####[place] [address], [place] 69354992-101-6174#### 3268623, 3323830, 1363011, 3426110, 2819499, 3448436, 8795229 ####Please refer to Result Comment for Performing Lab Location Cholesterol empty Normal NONE SEEN [facility] Comment on above: Order Comment: Order ing Doctor: Timoteo Salgado Performed By: #### 1 451073, 4145345 ####[place] [address] [place], [place] 11348510-078-1152#### 7106981, 9319100, 2080273, 1014738, 6875172, 0228152, 5306183 ####Please refer to Result Comment for Performing Lab Location COARSE GRAN empty Normal NONE SEEN [facility] Comment on above: Order Comment: Order ing Doctor: Timoteo Salgado Performed By: #### 1 804629, 3918657 ####[place] [address], [place] 37091941-900-4920#### 4255548, 8106933, 3859495, 9320586, 5074331, 9071246, 4361991 ####Please refer to Result Comment for Performing Lab Location CTSIND YES Normal NO [facility] Comment on above: Order Comment: Order ing Doctor: Timoteo Salgado Performed By: #### 1 545869, 7573880 ####[place] [address] [place], [place] 96869906-857-8042#### 1852153, 3206617, 0996277, 8622801, 5097229, 2530398, 9953443 ####Please refer to Result Comment for Performing Lab Location Erythrocytes (RBC) empty Normal NONE SEEN [facility] Comment on above: Order Comment: Order ing Doctor: Timoteo Salgado Performed By: #### 1 811303, 0088004 ####[place] [address] [place], [place] 07992214-746-1331#### 6929424, 0420432, 3932398, 6603508, 3083312, 1356096, 8909149 ####Please refer to Result Comment for Performing Lab Location FINE GRAN empty Normal NONE SEEN [facility] Comment on above: Order Comment: Order ing Doctor: Timoteo Salgado Performed By: #### 1 140499, 4033246 ####[place] [address] [place], [place] 85495312-677-1072#### 0920449, 1854790, 6098322, 6796951, 7853444, 4828613, 0257532 ####Please refer to Result Comment for Performing Lab Location HYAL CAST empty Normal 0-2 [facility] Comment on above: Order Comment: Order ing Doctor: Timoteo Salgado Performed By: #### 1 806664, 8355005 ####[place] [address] [place], [place] 42847114-383-7441#### 4937619, 8721546, 5944774, 7794393, 1245802, 4534307, 0913547 ####Please refer to Result Comment for Performing Lab Location SPERM empty Normal NONE SEEN [facility] Comment on above: Order Comment: Order ing Doctor: Timoteo Salgado Performed By: #### 1 344650, 7827966 ####[place] [address] [place], [place] 38978933-748-8153#### 6509404, 7354666, 0569513, 5671956, 7601081, 6985038, 3933510 ####Please refer to Result Comment for Performing Lab Location TRIP PHOS empty Normal NONE SEEN [facility] Comment on above: Order Comment: Order ing Doctor: Timoteo Salgado Performed By: #### 1 493104, 2832087 ####[place] [address] [place], [place] 23697779-785-0519#### 1383921, 2348905, 4255950, 5984059, 1450204, 3576586, 8923512 ####Please refer to Result Comment for Performing Lab Location UCAST NONE SEEN Normal NONE SEEN [facility] Comment on above: Order Comment: Order ing Doctor: Timoteo Salgado Performed By: #### 1 337922, 4825447 ####[place] [address] [place], [place] 74710511-955-8905#### 1118827, 8155669, 0153917, 5671728, 3607128, 0209809, 2506839 ####Please refer to Result Comment for Performing Lab Location UCRYS NONE SEEN Normal NONE SEEN [facility] Comment on above: Order Comment: Order ing Doctor: Timoteo Salgado Performed By: #### 1 467170, 6054683 ####[place] [address] [place], [place] 76725222-011-9962#### 8819115, 3112390, 6493386, 0757414, 3273623, 7859699, 4081689 ####Please refer to Result Comment for Performing Lab Location UMUC NONE SEEN Normal NONE SEEN [facility] Comment on above: Order Comment: Order ing Doctor: Timoteo Salgado Performed By: #### 1 345755, 5236199 ####[place] [address] [place], [place] 62426520-577-6752#### 0056799, 4951779, 3052806, 5939630, 1308390, 5090361, 2320188 ####Please refer to Result Comment for Performing Lab Location UOTH empty Normal NONE [facility] Comment on above: Order Comment: Order ing Doctor: Timoteo Salgado Performed By: #### 1 064666, 0504241 ####[place] [address] [place], [place] 72645022-396-5797#### 6678323, 2687518, 4229578, 9189094, 2575300, 4513614, 7600932 ####Please refer to Result Comment for Performing Lab Location Urate empty Normal NONE SEEN [facility] Comment on above: Order Comment: Order ing Doctor: Timoteo Salgado Performed By: #### 1 353036, 5665912 ####[place] [address] [place], [place] 40365578-936-4539#### 0859430, 1121995, 6644113, 5911942, 3547828, 8708021, 2522830 ####Please refer to Result Comment for Performing Lab Location UREPI empty Normal NONE SEEN [facility] Comment on above: Order Comment: Order ing Doctor: Timoteo Salgado Performed By: #### 1 803152, 3186440 ####[place] [address] [place], [place] 07825908-815-1447#### 6441443, 2608183, 8415278, 1842184, 8663908, 4158049, 5739026 ####Please refer to Result Comment for Performing Lab Location Urine, bacteria in sediment 2+ Normal NONE SEEN [facility] Comment on above: Order Comment: Order ing Doctor: Timoteo Salgado Performed By: #### 1 461355, 7205668 ####[place] [address] [place], [place] 75982271-881-6841#### 8415986, 9022085, 5050822, 6926543, 3746892, 5865105, 9469132 ####Please refer to Result Comment for Performing Lab Location Urine, erythrocytes /uL Normal NONE SEEN [facility] Comment on above: Order Comment: Order ing Doctor: Timoteo Salgado Performed By: #### 1 602605, 5659725 ####[place] [address] [place], [place] 33140259-427-2051#### 1476716, 5889108, 6234753, 9009343, 0635954, 3957290, 0326508 ####Please refer to Result Comment for Performing Lab Location Urine, leukocytes /uL Normal 0-5 [facility] Comment on above: Order Comment: Order ing Doctor: Timoteo Salgado Performed By: #### 1 468207, 8830845 ####[place] [address] [place], [place] 49519323-411-1665#### 7324441, 6587106, 9021823, 7931873, 2038248, 7917633, 3259533 ####Please refer to Result Comment for Performing Lab Location Urine, yeast presence in sediment empty Normal NONE SEEN [facility] Comment on above: Order Comment: Order ing Doctor: Timoteo Salgado Performed By: #### 1 652738, 8900972 ####[place] [address] [place], [place] 67555472-989-2318#### 6249462, 8928402, 7912442, 5032980, 6272771, 2156192, 8676213 ####Please refer to Result Comment for Performing Lab Location USEPI NONE SEEN Normal NONE SEEN [facility] Comment on above: Order Comment: Order ing Doctor: Timoteo Salgado Performed By: #### 1 081717, 6074377 ####[place] [address] [place], [place] 74283999-408-7649#### 4359242, 8581218, 9084268, 2176338, 6597581, 5502965, 0554932 ####Please refer to Result Comment for Performing Lab Location UTEPI empty Normal NONE SEEN [facility] Comment on above: Order Comment: Order ing Doctor: Timoteo Salgado Performed By: #### 1 758572, 9780578 ####[place] [address] [place], [place] 84582482-056-3288#### 1415350, 8589657, 3669640, 9178014, 0800181, 0068856, 4978292 ####Please refer to Result Comment for Performing Lab Location WAXY CASTS empty Normal NONE SEEN [facility] Comment on above: Order Comment: Order ing Doctor: Timoteo Salgado Performed By: #### 1 615651, 3903468 ####[place] [address] [place], [place] 98209069-209-8753#### 2263747, 4066908, 6536775, 4036922, 9529704, 9684838, 9668624 ####Please refer to Result Comment for Performing Lab Location WBC (Leukocytes) empty Normal NONE SEEN [facility] Comment on above: Order Comment: Order ing Doctor: Timoteo Salgado Performed By: #### 1 979980, 1492973 ####[place] [address] [place], [place] 68746237-901-4485#### 4716728, 5408837, 9800874, 9480639, 9820696, 6742731, 4076167 ####Please refer to Result Comment for Performing Lab Location Basic Metabolic Profileon Calcium 9.3 mg/dL Normal 8.4-10.2 [facility] Comment on above: Order Comment: Order ing Doctor: Timoteo Salgado Performed By: #### 1 794241, 6052349 ####[place] [address] [place], [place] 17033830-711-5324#### 7636940, 4035381, 7498122, 9651245, 4081729, 9182707, 0384630 ####Please refer to Result Comment for Performing Lab Location Chloride 105 mmol/L Normal 98-107 [facility] Comment on above: Order Comment: Order ing Doctor: Timoteo Salgado Performed By: #### 1 935744, 1721363 ####[place] [address] [place], [place] 73601494-432-8905#### 2968993, 7287987, 4809394, 1692733, 4103588, 2900705, 4671367 ####Please refer to Result Comment for Performing Lab Location CO2 27 mmol/L Normal 22-31 [facility] Comment on above: Order Comment: Order ing Doctor: Timoteo Salgado Performed By: #### 1 893098, 2547490 ####[place] [address] [place], [place] 13422286-452-7016#### 0545302, 1623073, 6643580, 5882448, 0386304, 0769707, 3409245 ####Please refer to Result Comment for Performing Lab Location Creatinine 0.7 mg/dL Normal 0.4-1.1 [facility] Comment on above: Order Comment: Order ing Doctor: Timoteo Salgado Performed By: #### 1 027929, 4274205 ####[place] [address] [place], [place] 74419040-770-2655#### 8690328, 7778303, 3240486, 9756145, 8378117, 5843381, 3499518 ####Please refer to Result Comment for Performing Lab Location eGFR (non-black) mL/min/{1.73_m2} Normal [facility] Comment on above: Order [...] unstable creatinine concentrations Performed By: #### 1 515195, 3108727 ####[place] [address] [place], [place] 57185949-550-6557#### 5166218, 2396088, 8152376, 9200731, 5045928, 3753286, 0861094 ####Please refer to Result Comment for Performing Lab Location Glucose mass conc 90 mg/dL Normal 70-100 [facility] Comment on above: Order Comment: Order ing Doctor: Timoteo Salgado Result Comment: Fast ing glucose reference ranges:Normal fasting glucose: < 100 mg/dL.Impaired fasting glucose: 100-125 mg/dL.Diabetes mellitus criteria: Fasting glucose at or above 126 mg/dL, confirmed on a subsequent day by repeat measurement, or when two different tests (e.g. FBS and HgbA1c) are available and are concordant for diagnosis of diabetes. *based on [place] [employer] recommendations 2012 Performed By: #### 1 433487, 1230886 ####[place] [address] [place], [place] 84410633-391-3162#### 6799692, 3219407, 3316894, 3974026, 4610029, 4702676, 5147779 ####Please refer to Result Comment for Performing Lab Location Potassium molar conc 4.3 mmol/L Normal 3.5-5.1 [facility] Comment on above: Order Comment: Order ing Doctor: Timoteo Salgado Performed By: #### 1 142431, 4886486 ####[place] [address] [place], [place] 11908056-725-2126#### 3545950, 0027883, 8163524, 7842434, 3692762, 3077189, 9025048 ####Please refer to Result Comment for Performing Lab Location Sodium 140 mmol/L Normal 136-145 [facility] Comment on above: Order Comment: Order ing Doctor: Timoteo Salgado Performed By: #### 1 043139, 5081638 ####[place] [address] [place], [place] 51024364-235-0825#### 0093138, 0606672, 5841951, 2171784, 2273991, 6942271, 0139367 ####Please refer to Result Comment for Performing Lab Location Urea nitrogen 9 mg/dL Normal 7-22 [facility] Comment on above: Order Comment: Order ing Doctor: Timoteo Salgado Performed By: #### 1 208715, 7916498 ####[place] [address] [place], [place] 37968252-809-5056#### 8647951, 8977006, 8837903, 3928132, 5808669, 9797990, 1632834 ####Please refer to Result Comment for Performing Lab Location Dehydroepiandrosterone Sulfa te, Serumon 02-23-2017 DHEA SULFATE 369 ug/dL Normal 63-373 [facility] Comment on above: Order Comment: Order ing Doctor: Timoteo Salgado Result Comment: REFE RENCE INTERVAL: DHEASAccess complete set of age- and/or gender-specific referenceintervals for this test in the [facility] Laboratory Test Directory([employer]).Performed by [employer],[address] [place] [address] 25484 lso.[employer], Kai Bland MD - Lab. Director Performed By: #### 1 633575, 7213791 ####[place] [address] [place], [place] 03616664-706-6750#### 5658579, 6438576, 4051019, 1818948, 3574828, 4696564, 8233025 ####Please refer to Result Comment for Performing Lab Location Estradiolon 02-23-2017 ESTRADIOL 38.2 pg/mL Normal [facility] Comment on above: Order Comment: Order ing Doctor: Jeffrey Salgadoformed [email or web address] [address] Result Comment: Norm ally Menstruating Females Follicular Phase 19 - 247 pg/ml Mid-Cycle 36 - 571 pg/ml Luteal Phase 22 - 256 pg/mlPostmenopausal <7 - 45 pg/mlMales 12 - 41 pg/ml Performed By: #### 1 176573, 3374384 ####[place] [address] [place], [place] 99658397-075-6671#### 3758271, 3608641, 9591961, 6755413, 5047487, 1224973, 0976662 ####Please refer to Result Comment for Performing Lab Location Follicle Stimulating Hormone on 02-23-2017 FSH (FOLLICLE STIMULATING HORMONE) 3.5 mIU/ml Normal 0.6-16.9 [facility] Comment on above: Order Comment: Order ing Doctor: Jeffrey Salgadoformed by [employer] [place] [id number] Result Comment: Gamewell lly Menstruating Female Ranges Follicular Phase 2.5 - 10.2 mIU/ml Mid-Cycle 3.4 - 33.4 mIU/ml Luetal Phase 1.5 - 9.1 mIU/mlPost Menopausal 23.0 - 116.3 mIU/mlMale 1.4 - 18.1 mIU/ml Performed By: #### 1 924555, 5334256 ####[place] [address] [place], [place] 16719839-577-8744#### 6907941, 8651513, 7870639, 3137762, 6131950, 7959789, 4263542 ####Please refer to Result Comment for Performing Lab Location Insulin, Fastingon 7 INSULIN (RANDOM OR FASTING) 45 uIU/mL High 3-19 [facility] Comment on above: Order Comment: Order ing Doctor: Timoteo Salgado Result Comment: INTE RPRETIVE INFORMATION: Insulin, FastingThis test reacts on a nearly equimolar basis with the analogsinsulin aspart, insulin glargine, and insulin lispro. Insulindetemir exhibits approximately 50 percent cross-reactivity. Testreactivity with insulin glulisine is negligible (less than 3percent). To convert to pmol/L, multiply uIU/mL by 6.0.Performed by [employer],[address] [place] [address] 83649 sko.[employer], Kai Bland MD - Lab. Director Performed By: #### 1 520235, 7666173 ####[place] [address] [place], [place] 02788778-864-9471#### 0074895, 2521740, 1923729, 2288006, 0024928, 7475946, 8462674 ####Please refer to Result Comment for Performing Lab Location Luteinizing Hormoneon 2016 LH (LUTEINIZING HORMONE) 10.9 mIU/ml Normal 0.6-43.9 [facility] Comment on above: Order Comment: Order ing Doctor: Jeffrey Salgadoformed by [employer] [facility] [address] [place], [place] Result Comment: Norm ally Menstruating Females Follicular [...] - 34.6 mIU/ml Performed By: #### 1 279433, 5783654 ####[place] [address] [place], [place] 35987924-964-0466#### 6748069, 9604164, 2166905, 3308570, 8801289, 6836235, 0929221 ####Please refer to Result Comment for Performing Lab Location Prolactinon 02-23-2017 PROLACTIN 16.0 ng/ml Normal [facility] Comment on above: Order Comment: Order ing Doctor: Jeffrey Salgadoformed [place] [address] Result Comment: Fema le Non- 2.8 - 29.2 ng/ml 9.7 - 208.5 ng/ml Post Menopausal 1.8 - 20.3 ng/mlMales 2.1 - 17.7 ng/ml Performed By: #### 1 160011, 5148312 ####[place] [address] [place], [place] 13493566-126-5617#### 0759867, 7045068, 6655878, 5184497, 2703414, 4283823, 5692269 ####Please refer to Result Comment for Performing Lab Location TSH and FT4on 02-23-2017 Thyroid stimulating hormone (TSH) 2.70 uIU/mL Normal 0.49-4.67 [facility] Comment on above: Order Comment: Order ing Doctor: Timoteo Salgado Performed By: #### 1 659049, 9598600 ####[place] [address] [place], [place] 74798563-155-0677#### 7334985, 8849137, 2014351, 6169650, 5012195, 2187711, 6817956 ####Please refer to Result Comment for Performing Lab Location Thyroxine (T4) free 0.81 ng/dL Normal 0.61-1.12 [facility] Comment on above: Order Comment: Order ing Doctor: Timoteo Salgado Performed By: #### 1 925167, 3093419 ####[place] [address] [place], [place] 17033112-498-8324#### 5829476, 8486412, 4423461, 7173342, 2794606, 4599101, 3953633 ####Please refer to Result Comment for Performing Lab Location Testosterone, Females or Chi ldrenon 02-23-2017 TESTOSTERONE, FEMALES/CHILDREN 62 ng/dL High 9-55 [facility] Comment on above: Order Comment: Order ing Doctor: Timoteo Salgado Result Comment: Tota l Testosterone, Females 18 years and older Premenopausal 9-55 ng/dL Postmenopausal 5-32 ng/dLTotal testosterone values may not reflect optimal concentrationsin all individuals. Free or bioavailable testosteronemeasurements may provide supportive information.REFERENCE INTERVAL: Testosterone, LC-MS/MSAccess complete set of age- and/or gender-specific referenceintervals for this test in the [facility] Test Directory([employer]).Test developed and characteristics determined by [facility]. See Compliance Statement B: [employer]/CSPerformed by [employer],[address] [place] [address] 3[address] oqs.[employer], Kai Bland MD - Lab. Director Performed By: #### 1 833829, 3590894 ####[place] [address] [place], [place] 67896540-395-5783#### 1860877, 6900820, 7600215, 3474074, 3930863, 9628437, 0734469 ####Please refer to Result Comment for Performing Lab Location Vital Signs Date Time Vital Sign Value Performing Clinician Facility 02-21-2024 10: Diastolic blood pressure 64 mm[Hg] Mireya Vieira MD Work Phone: [facility] 02-21-2024 10:21-0400 Systolic blood pressure 122 mm[Hg] Mireya Vieira MD Work Phone: [facility] 02-08-2024 10:30-0400 Diastolic blood pressure 69 mm[Hg] Amber Bledsoe MD Work Phone: [facility] 02-08-2024 10:30-0400 Heart rate 119 /min Amber Bledsoe MD Work Phone: [facility] 02-08-2024 10:30-0400 SaO2% (BldA) [Mass fraction] 99 % Amber Bledsoe MD Work Phone: [facility] 02-08-2024 10:30-0400 Systolic blood pressure 121 mm[Hg] Amber Bledsoe MD Work Phone: [facility] 01-09-2024 10:48-0400 Body height 175.3 cm Naty Benedict MD Work Phone: [facility] 01-09-2024 10:48-0400 Body mass index (BMI) [Ratio] 29.64 kg/m2 Naty Benedict MD Work Phone: [facility] 01-09-2024 10:48-0400 Body weight 91.04 kg Naty Benedict MD Work Phone: [facility] 01-09-2024 10:48-0400 Diastolic blood pressure 78 mm[Hg] Naty Benedict MD Work Phone: [facility] 01-09-2024 10:48-0400 Heart rate 95 /min Naty Benedict MD Work Phone: [facility] 01-09-2024 10:48-0400 Respiratory rate 18 /min Naty Benedict MD Work Phone: [facility] 01-09-2024 10:48-0400 SaO2% (BldA) [Mass fraction] 98 % Naty Benedict MD Work Phone: [facility] 01-09-2024 10:48-0400 Systolic blood pressure 123 mm[Hg] Naty Benedict MD Work Phone: [facility] 07-08-2022 10:47-0500 Body temperature 98.29 [degF] Hebert Austin DO Work Phone: [employer] 07-08-2022 10:47-0500 Diastolic blood pressure 80 mm[Hg] Hebert Austin DO Work Phone: [employer] 07-08-2022 10:47-0500 Heart rate 98 /min Hebert Austin DO Work Phone: [employer] 07-08-2022 10:47-0500 Respiratory rate 17 /min Hebert Austin DO Work Phone: [employer] 07-08-2022 10:47-0500 SaO2% (BldA) [Mass fraction] 99 % Hebert Austin DO Work Phone: [employer] 07-08-2022 10:47-0500 Systolic blood pressure 125 mm[Hg] Hebert Austin DO Work Phone: [employer] 07-03-2022 11:26-0500 Body height 175.3 cm Hebert Austin DO Work Phone: [employer] 06-26-2022 14:00-0500 Diastolic blood pressure 94 mm[Hg] Levi Buitrago DO Work Phone: [employer] 06-26-2022 14:00-0500 Systolic blood pressure 151 mm[Hg] Levi Buitrago DO Work Phone: [employer] 06-26-2022 06:15-0500 Body mass index (BMI) [Ratio] 41.35 kg/m2 Hebert Austin DO Work Phone: [employer] 06-26-2022 06:15-0500 Body weight 127.01 kg Hebert Austin DO Work Phone: [employer] 06-26-2022 03:30-0500 Heart rate 115 /min Levi Buitrago DO Work Phone: [employer] 06-26-2022 03:30-0500 Respiratory rate 16 /min Levi [employer] Work Phone: [employer] 06-26-2022 03:30-0500 SaO2% (BldA) [Mass fraction] 97 % Levi RECESS. Work Phone: [employer] 06-26-2022 00:35-0500 Body height 175.3 cm Levi RECESS. Work Phone: [employer] 06-26-2022 00:35-0500 Body mass index (BMI) [Ratio] 43.42 kg/m2 Levi Pufetto Phone: [employer] 06-26-2022 00:35-0500 Body weight 133.36 kg Levi Pufetto Phone: [employer] 06-26-2022 00:34-0500 Body temperature 97.81 [degF] Levi RECESS. Work Phone: [employer] 11-10-2021 11:06-0400 Blood Pressure Location Franks Floop [facility] 11-10-2021 11:06-0400 Diastolic blood pressure 83 mm[Hg] Franks SALAM [facility] 11-10-2021 11:06-0400 Heart rate 82 /min Franks SALAM [facility] 11-10-2021 11:06-0400 Respiratory rate 16 /min Franks SALAM [facility] 11-10-2021 11:06-0400 Systolic blood pressure 123 mm[Hg] Franks SALAM [facility] 10-26-2019 19:35-0400 BMI (Body Mass Index) 33.97 kg/m2 Naty Haque [facility], [place] 10-26-2019 19:35-0400 Body Temperature 98.8 [degF] Naty Haque [facility], [place] 10-26-2019 19:35-0400 Body weight 104.33 kg Nayt Haque [facility] , [place] 10-26-2019 19:35-0400 BP Diastolic 85 mm[Hg] Naty Bonds [facility] , [place] 10-26-2019 19:35-0400 BP Systolic 120 mm[Hg] [facility] , [place] 10-26-2019 19:35-0400 Height 175.3 cm [facility] [place] 10-26-2019 19:35-0400 Pulse (Heart Rate) 96 /min [facility] [place], [place] 10-26-2019 19:35-0400 Pulse Oximetry 98 % [facility] [place] 10-26-2019 19:35-0400 Respiratory Rate 18 /min Naty Haque [place], [place] 06-10-2019 20:53-0500 BP Diastolic 82 mm[Hg] [facility] 06-10-2019 20:53-0500 BP Systolic 130 mm[Hg] [facility] [employer] [facility] 06-10-2019 20:53-0500 Pulse (Heart Rate) 96 /min [facility] 06-10-2019 20:53-0500 Pulse Oximetry 99 % Jorge [facility] 06-10-2019 19:57-0500 BMI (Body Mass Index) 26.58 kg/m2 [facility] 06-10-2019 19:57-0500 Body weight 81.65 kg [facility] [employer] [facility] 06-10-2019 19:57-0500 Height 175.3 cm [facility] [employer] [facility] [employer] [facility] 06-10-2019 19:56-0500 Body Temperature 98.4 [degF] [facility] 06-10-2019 19:56-0500 Respiratory Rate 18 /min [facility] 10-22-2018 12:52-0400 BP Diastolic 83 mm[Hg] Kehinde [facility] 10-22-2018 12:52-0400 BP Systolic 140 mm[Hg] Kehinde Lew [facility] 10-22-2018 12:50-0400 Pulse (Heart Rate) 124 /min Kehinde Lew [facility] 10-22-2018 12:50-0400 Respiratory Rate 18 /min Kehinde Lew [facility] 10-22-2018 00:27-0400 BMI (Body Mass Index) 38.75 kg/m2 Kehinde [facility] 10-22-2018 00:27-0400 Body weight 112.22 kg [facility] 10-22-2018 00:27-0400 Height 170.2 cm [facility] 10-22-2018 00:26-0400 Body Temperature 99.3 [degF] Kehinde [facility] 10-08-2018 11:34-0400 BMI (Body Mass Index) 40.25 kg/m2 [facility] 10-08-2018 11:34-0400 Body Temperature 97.3 [degF] [facility] 10-08-2018 11:34-0400 Body weight 116.57 kg [facility] 10-08-2018 11:34-0400 BP Diastolic 104 mm[Hg] [facility] 10-08-2018 11:34-0400 BP Systolic 150 mm[Hg] [facility] 10-08-2018 11:34-0400 Height 170.2 cm [facility] 10-08-2018 11:34-0400 Pulse (Heart Rate) 97 /min [facility] 10-08-2018 11:34-0400 Respiratory Rate 20 /min [facility] 07-16-2018 16:40-0500 BMI (Body Mass Index) 39.47 kg/m2 [facility] Work Phone: 07-16-2018 16:40-0500 Body Temperature 98.1 [degF] [facility] Work Phone: 07-16-2018 16:40-0500 BP Diastolic 83 mm[Hg] [facility] Work Phone: 07-16-2018 16:40-0500 BP Systolic 141 mm[Hg] [facility] Work Phone: 07-16-2018 16:40-0500 Height 170.2 cm [facility] Work Phone: 07-16-2018 16:40-0500 Pulse (Heart Rate) 89 /min [facility] Work Phone: 07-16-2018 16:40-0500 Respiratory Rate 16 /min [facility] Work Phone: 07-16-2018 16:40-0500 Weight 114.31 kg [facility] Work Phone: Encounters Encounter Date Encounter Type Care Provider Facility Start: 03-28-2024 ambulatory Ealrine Khan Facility: [facility] Start: 02-28-2024 End: 02-28-2024 ambulatory Karen Blanco MD Work Phone: Neurology Comment on above: Convulsions, unspeci fied convulsion type (HCC) (Primary Dx); Recurrent seizures (HCC); Generalized convulsive epilepsy (HCC) Start: 02-28-2024 End: 02-28-2024 Telemedicine consultation with patient Karen Blanco MD Work Phone: Neurology Start: 02-28-2024 End: 02-28-2024 ambulatory SHASTA ANA MARIABEL Facility:[facility] Start: 02-27-2024 End: 02-27-2024 ambulatory Earline L Gustavo Facility:[facility] [place] Start: 02-21-2024 ambulatory MIREYA VIEIRA [facility] Start: 02-21-2024 End: 02-21-2024 Office outpatient new 30 minutes Mireya Vieira MD Work Phone: [facility] Comment on above: Narcotic dependence, in remission (Primary Dx) Start: 02-20-2024 End: 02-20-2024 ambulatory SARAY D HILLS Not Available Start: 02-20-2024 End: 02-20-2024 ambulatory SARAY D HILLS Not Available Start: 02-12-2024 End: 02-12-2024 ambulatory Earline L Gustavo Facility:[facility] [place] Start: 02-08-2024 End: 02-08-2024 Subsequent hospital visit by physician [place] [id number] Work Phone: Radiology Comment on above: Neurogenic bladder [ N31.9] Start: 02-08-2024 End: 02-08-2024 ambulatory NATY MACDONALD NEMUNAITIS Facility:[facility] Start: 02-08-2024 End: 02-08-2024 Patient encounter procedure Amber Bledsoe MD Work Phone: Pain Management Comment on above: Myofascial low back pain (Primary Dx); Neuropathic pain; Paraplegia (HCC); Borderline personality disorder (HCC); Personal history of spine surgery; Burst fracture of lumbar vertebra, sequela Start: 02-06-2024 Telephone encounter Amber perry MD Work Phone: Pain Management Comment on above: Appointment Start: 02-02-2024 ambulatory Earline L Gustavo Facility: [facility] [place] Start: 01-31-2024 End: 01-31-2024 [facility] Gillian Millan MD Work Phone: Urology Comment on above: Neurogenic bowel (Pr imary Dx); Neurogenic bladder; Spinal cord injury at T7-T12 level (HCC); Borderline personality disorder (HCC); Incomplete paraplegia (HCC) Start: 01-30-2024 End: 01-30-2024 ambulatory Earline Khan Facility:[facility] [place] Start: 01-25-2024 Patient encounter procedure Steve Pompa MD Work Phone: Neurology Comment on above: Partial symptomatic epilepsy with complex partial seizures, not intractable, without status epilepticus (HCC) (Primary Dx) Start: 01-25-2024 Telephone encounter Steve Pompa MD Work Phone: Neurology Comment on above: Future Appointment ( NEW PT, [place], ANY) Start: 01-24-2024 ambulatory No 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 [facility] Start: 01-24-2024 Patient encounter procedure No 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 [place] Start: 01-23-2024 Telephone encounter Naty Malave MD Work Phone: [facility] [place] Start: 01-19-2024 ambulatory Naty Benedict MD Work Phone: Rehab Medicine Comment on above: Test results Start: 01-15-2024 End: 01-15-2024 Subsequent hospital visit by physician Antolin Montalvo PT [facility] Physical Therapy Comment on above: No Show Start: 01-15-2024 End: 01-15-2024 ambulatory NATY BENEDICT Facility:[facility] Start: 01-12-2024 Telephone encounter Valeria Dejesus RN Hematology/Oncology Comment on above: Patient Question Start: 01-09-2024 Telephone encounter Naty Malave MD Work Phone: Rehab Medicine Comment on above: Question about pain issue Start: 01-09-2024 End: 01-09-2024 ambulatory NATY BENEDICT Facility:[facility] Start: 01-09-2024 End: 01-09-2024 Patient encounter procedure Naty Benedict MD Work Phone: Rehab Medicine Comment on above: Paraplegia (HCC) (Pr imary Dx); Neurogenic bladder; Neurogenic bowel; Effusion of left knee; Neuropathic pain; Idiopathic osteoporosis; Acute pain of left knee; Mixed hyperlipidemia; History of pulmonary embolism Start: 01-05-2024 ambulatory [facility] Start: 01-02-2024 End: 01-02-2024 ambulatory Earline L Gustavo Facility:[facility] Start: 12-29-2023 End: 12-29-2023 ambulatory Earline L Gustavo Facility:[facility] Start: 12-13-2023 End: 12-13-2023 Subsequent hospital visit by physician Vickie Feng PT [facility] Physical Therapy Start: 12-11-2023 End: 12-11-2023 ambulatory VALERIA MONTOYA Not Available Start: 12-05-2023 End: 12-05-2023 Subsequent hospital visit by physician Maricarmen Menchaca COMPLIANCE SPECIALIST [facility] Physical Therapy Start: 12-05-2023 ambulatory [facility] Start: 12-01-2023 End: 12-01-2023 ambulatory Earline L Gustavo Facility:[facility] Start: 11-30-2023 End: 11-30-2023 Subsequent hospital visit by physician Tangela Wolfe PTA [facility] Physical Therapy Start: 11-20-2023 Telephone encounter Tangela slater APRN.CNP Work Phone: PHYSICAL MEDICINE & REHAB Comment on above: Appointment Start: 11-17-2023 End: 11-17-2023 Telemedicine consultation with patient Tangela M Chai COE Work Phone: PHYSICAL MEDICINE & REHAB Start: 11-17-2023 End: 11-17-2023 ambulatory Tangela Paula APRN.CNP Work Phone: PHYSICAL MEDICINE & REHAB Comment on above: Paraplegia (HCC) (Pr imary Dx); Fusion of spine of thoracolumbar region; Weakness; Constipation, unspecified constipation type; Spasticity Start: 11-15-2023 End: 11-15-2023 ambulatory YANELI MARY KATE [facility] Start: 11-09-2023 End: 11-09-2023 [facility]ulatory [facility] Start: 11-06-2023 End: 11-06-2023 [facility] Start: 11-02-2023 End: 11-02-2023 Subsequent hospital visit by physician Dilcia Lee PTA [facility] Physical Therapy Start: 11-02-2023 ambulatory YANELI MARY KATE [facility] Start: 10-31-2023 End: 10-31-2023 ambulatory [facility] Start: 10-27-2023 End: 10-27-2023 ambulatory Earline L Gustavo Facility:[facility] Start: 10-26-2023 End: 10-26-2023 ambulatory [facility] Start: 10-24-2023 End: 10-24-2023 ambulatory [facility] Start: 10-12-2023 End: 10-12-2023 ambulatory [facility] Start: 10-11-2023 End: 10-11-2023 ambulatory Earline L Gustavo Facility:[facility] Start: 10-06-2023 End: 10-06-2023 ambulatory Earline L Gustavo Facility:[facility] Start: 10-05-2023 End: 10-05-2023 ambulatory [facility] Start: 09-28-2023 End: 09-28-2023 ambulatory [facility] Start: 09-28-2023 End: 09-28-2023 Subsequent hospital visit by physician Madyson Davila PTA [facility] Physical Therapy Comment on above: Arrived Start: 09-25-2023 ambulatory Arpan Rakesh A PRN.PLATFORM ARCHITECT Work Phone: [facility] Comment on above: Test results Start: 2023 ambulatory ARPAN CAMERON Facility:[facility] Start: 2023 End: 2023 Subsequent hospital visit by physician [facility] 2 (Istat/1.5) Work Phone: [facility] Radiology MRI Comment on above: Mid back pain [M54.9 ] Start: 09-21-2023 End: 09-21-2023 ambulatory [facility] Start: 09-21-2023 End: 09-21-2023 Subsequent hospital visit by physician Maria Del Rosario Martinez [facility] Physical Therapy Comment on above: Arrived Start: 09-14-2023 End: 09-14-2023 Subsequent hospital visit by physician Dilcia Lee PTA [facility] Physical Therapy Start: 09-14-2023 ambulatory [facility] Start: 08-29-2023 End: 08-29-2023 Subsequent hospital visit by physician Dilcia Lee PTA [facility] Physical Therapy Start: 08-24-2023 End: 08-24-2023 ambulatory Earline L Gustavo Facility:[facility] Start: 08-16-2023 End: 08-16-2023 ambulatory Earline L Gustavo Facility:[facility] [place] Start: 08-10-2023 End: 08-10-2023 ambulatory YANELI MARY KATE [facility] Start: 08-10-2023 End: 08-10-2023 Subsequent hospital visit by physician Dilcia Lee PTA [facility] Physical Therapy Comment on above: Arrived Start: 08-07-2023 ambulatory [facility] Start: 08-01-2023 End: 08-01-2023 ambulatory YANELI MARY KATE [facility] Start: 07-28-2023 End: 07-28-2023 ambulatory ARPAN CAMERON Facility:[facility] Start: 07-24-2023 End: 07-24-2023 ambulatory YANELI LAMB [facility] Start: 07-22-2023 ambulatory Earline Gustavo Facility:[facility] Start: 07-20-2023 End: 07-20-2023 Subsequent hospital visit by physician Dilcia Lee PTA [facility] Physical Therapy Start: 07-12-2023 End: 07-12-2023 ambulatory YANELI LAMB [facility] Start: 07-10-2023 End: 07-10-2023 ambulatory Earline L Gustavo Facility:[facility] [place] Start: 06-30-2023 End: 06-30-2023 ambulatory YANELI LAMB [facility] Start: 06-28-2023 End: 07-01-2023 ambulatory [facility] Start: 06-27-2023 End: 06-27-2023 ambulatory Earline L Gustavo Facility:[facility] [place] Start: 06-22-2023 End: 06-22-2023 ambulatory YANELI [facility] Start: 06-12-2023 End: 06-12-2023 ambulatory YANELI [facility] Start: 06-01-2023 End: 06-01-2023 ambulatory YANELI [facility] Start: 05-31-2023 End: 05-31-2023 ambulatory [facility] L [facility] Start: 05-05-2023 End: 05-23-2023 Evaluation and management of inpatient YANELI LAMB [facility] Start: 04-24-2023 End: 04-29-2023 ambulatory [facility]I LAMB [facility] Start: 04-11-2023 End: 04-11-2023 ambulatory YANELI [facility] Start: 04-04-2023 End: 04-04-2023 ambulatory YANELI [facility] Start: 03-30-2023 End: 03-30-2023 ambulatory DEB [facility] Start: 03-23-2023 End: 03-23-2023 ambulatory DEB [facility] Start: 03-21-2023 End: 03-21-2023 Subsequent hospital visit by physician Maria Del Rosario Martinez COMPLIANCE SPECIALIST [facility] Physical Therapy Start: 03-16-2023 End: 03-16-2023 ambulatory DEB [facility] Start: 03-09-2023 End: 03-09-2023 ambulatory YANELI [facility] Start: 03-07-2023 ambulatory YANELI [facility] Start: 03-01-2023 End: 03-01-2023 ambulatory Earline L Gustavo Facility:[facility] [place] Start: 02-20-2023 End: 02-20-2023 ambulatory YANELI [facility] Start: 02-07-2023 End: 02-07-2023 ambulatory Prabhu Ritter Other [facility] Other Start: 02-07-2023 Telephone encounter Prabhu Riya [facility] Start: 01-11-2023 End: 01-14-2023 ambulatory YANELI Haque [facility] Start: 07-23-2022 End: 07-23-2022 Subsequent hospital visit by physician [facility] Comment on above: spinal cord compress ion Start: 07-08-2022 End: 07-28-2022 Subsequent hospital visit by physician Edwar Hanson MD Work Phone: [facility] Comment on above: [Z98.890] - Other sp ecified postprocedural state Start: 06-26-2022 End: 07-08-2022 Evaluation and management of inpatient Hebert Austin DO Work Phone: [facility] Stepdown Comment on above: Closed fracture of t welfth thoracic vertebra, unspecified fracture morphology, initial encounter (HCC) (Primary Dx); Seizure (HCC); Spine disorder Start: 06-26-2022 End: 06-26-2022 Emergency department patient visit WENDY SANDOVAL [facility] Start: 06-26-2022 End: 06-26-2022 Emergency department patient visit Levi Buitrago DO Work Phone: [facility] Emergency Medicine Start: 06-03-2022 End: 06-04-2022 ambulatory NONE LISTED REQUEST Facility:[facility] Start: 02-26-[address] DAVID MORALES . Facili ty:[facility] Start: 01-12-2022 End: 01-13-[address] DAVID MORALES . Facility: Start: 11-10-2021 End: 11-10-2021 Patient encounter procedure Tiny BRUNO [facility] Start: 07-06-2021 Evaluation and management of inpatient TETE Jurgen COLJIM Facility:[facility] Start: 10-29-2019 End: 10-29-2019 Subsequent hospital visit by physician Wendy Sandoval [facility] E[facility] Start: 10-26-2019 End: 10-26-2019 Emergency department patient visit Naty Bonds Work Phone: [facility] ED Comment on above: Chronic dental pain (Primary Dx) Start: 06-10-2019 End: 06-10-2019 Emergency department patient visit Jorge Rodrigues Work Phone: [facility] Emergency Medicine Start: 10-22-2018 Notes/Results Only Other Other NOTE S/RESULTS Start: 10-22-2018 End: 10-22-2018 Patient encounter procedure Other Other [facility] Start: 10-22-2018 End: 10-22-2018 Emergency department patient visit Kehinde Mcallister Louann Work Phone: [facility] Emergency Medicine Start: 10-18-2018 End: 10-18-2018 Patient encounter procedure [facility] Start: 10-08-2018 End: 10-08-2018 Emergency department patient visit Gold Choi Work Phone: [facility] Medicine Start: 09-06-2018 End: 09-06-2018 Patient encounter procedure [facility] Start: 08-23-2018 End: 08-23-2018 Patient encounter procedure [facility] Start: 07-16-2018 End: 07-16-2018 Office outpatient new 30 minutes Pa Rodriguez Work Phone: [facility] Comment on above: Acute upper respirat ory infection (Primary Dx) Start: 06-29-2018 End: 06-29-2018 Patient encounter procedure Jocelyn Bowen CN Facility:[facility] Start: 06-05-2018 End: 06-05-2018 Patient encounter procedure Lenora Peña CN Facility:[facility] Start: 05-29-2018 End: 06-02-2018 Evaluation and management of inpatient Audrey J Rao Facility:[facility] Start: 05-25-2018 End: 05-25-2018 Patient encounter procedure Adurey J Rao Facility:[facility] Start: 05-18-2018 End: 05-18-2018 Patient encounter procedure Susannah Long Facility:[facility] Start: 05-15-2018 End: 05-15-2018 Patient encounter Audrey Rao Work Phone: [facility] Start: 05-01-2018 End: 05-02-2018 Patient encounter procedure Audrey J Rao Facility:[facility] Start: 04-16-2018 End: 04-16-2018 Patient encounter procedure Audrey J Rao Facility:[facility] Start: 04-16-2018 End: 04-16-2018 Patient encounter procedure Audrey J Rao Facility:[facility] Start: 04-09-2018 End: 04-09-2018 Patient encounter procedure Audrey J Rao Facility:[facility] Start: 03-26-2018 End: 03-26-2018 Patient encounter procedure Audrey J Rao Facility:[facility] Start: 01-11-2018 End: 01-11-2018 Patient encounter procedure Jocelyn Bowen CNM Facility:[facility] Start: 11-30-2017 End: 11-30-2017 Emergency department patient visit DAR Dean MELVIN Facility:001 Start: 11-22-2017 End: 11-22-2017 Ambulatory Timoteo Salgado Facility:001 Start: 11-15-2017 End: 11-15-2017 Emergency department patient visit WENDY SANDOVAL Facility:001 Start: 10-24-2017 End: 10-24-2017 [facility] Start: 10-19-2017 End: 10-19-[address] [facility] Facility:001 Start: 08-15-2017 End: 08-15-2017 Emergency department patient visit DONNELL DE OLIVEIRAROW Facility:001 Start: 06-30-2017 End: 06-30-2017 [facility] Start: 02-23-2017 End: 02-23-2017 Ambulatory Timoteo [place] Facility:001 Procedures Date Procedure Procedure Detail Performing Clinician Start: 02-21-2024 Urine test visual color cmprsn meths Mireya Vieira MD Work Phone: Start: 02-21-2024 Drug test prsmv read direct optical obs pr date Mireya Vieira MD Work Phone: Start: 2023 Mri spinal canal lum bar w/o contrast material Arpan Cameron PIPE ORGAN INSTALLER.PLATFORM ARCHITECT Work Phone: Start: 07-28-2022 Blood count complete auto&auto difrntl wbc Enrique Washington MD Work Phone: Start: 07-25-2022 Blood count complete auto&auto difrntl wbc Enrique Washington MD Work Phone: Start: 07-21-2022 Blood count complete auto&auto difrntl wbc Enrique Washington MD Work Phone: Start: 07-18-2022 Blood count complete auto&auto difrntl deuce Washington MD Work Phone: Start: 07-14-2022 Blood count complete auto&auto difrntl wbc Enrique Washington MD Work Phone: Start: 07-12-2022 Assay of phosphatase alkaline Edwar Hanson MD Work Phone: Start: 07-11-2022 Blood count complete auto&auto difrntl wbc Enrqiue Washington MD Work Phone: Start: 07-06-2022 Basic [...] xtr veins c omplete bilateral study Ember Rossihoven PIPE ORGAN INSTALLER - PLATFORM ARCHITECT Work Phone: Start: 06-30-2022 Basic metabolic pane l calcium total Berenice C [place] DO Work Phone: Start: 06-29-2022 Glucose blood reagent strip Rashad Ascencio MD Work Phone: Start: 06-29-2022 Basic metabolic pane l calcium total Berenice C [place] DO Work Phone: Start: 06-28-2022 Basic metabolic pane l calcium total Berenice C Javier DO Work Phone: Start: 06-28-2022 Blood count hemoglobin Gopal Abisai DO Work Phone: Start: 06-27-2022 Blood count hemoglobin Milly Hardin MD Work Phone: Start: 06-27-2022 Ecg routine ecg w/le ast 12 lds trcg only w/o i&r Berenice C Javier DO Work Phone: Start: 06-27-2022 Basic metabolic pane l calcium total Berenice C [place] DO Work Phone: Start: 06-27-2022 Blood count hemoglobin Milly Hardin MD Work Phone: Start: 06-27-2022 Urinalysis microscopic only Milly Hardin MD Work Phone: Start: 06-27-2022 Urnls dip stick/tabl et rgnt auto w/o microscopy Milly Hardin MD Work Phone: Start: 06-27-2022 Blood count hemoglobin Jyoti Ryann DO Start: 06-26-2022 End: 06-26-2022 Fluoroscopy during operation Getahcewmariela lopez DO Work Phone: Start: 06-26-2022 End: 06-26-2022 LUMBAR LAMINECTOMY DISCECTOMY POSTERIOR Getachewmariela Leong DO Work Phone: Start: 06-26-2022 Mri spinal canal tho racic w/o contrast matrl Bang Church MD Work Phone: Start: 06-26-2022 CT LUMBAR SPINE TRAU MA RECONSTRUCTION Thong Aguilar MD Work Phone: Start: 06-26-2022 CT THORACIC SPINE TR SHAIMA RECONSTRUCTION Thong Aguilar MD Work Phone: Start: [...] 06-26-2022 Speech and language therapy regime Gopal Abisai DO Work Phone: Start: 06-26-2022 TRAUMA PANEL Thong escoto MD Work Phone: Start: 06-26-2022 Culture bacterial qu anttative colony count urine Gopal Abisai DO Work Phone: Start: 06-26-2022 Assay of troponin quantitative Levi Buitrago DO Work Phone: Start: 06-26-2022 BASIC METABOLIC PROFILE ER Levi Saundersham DO Work Phone: Start: 06-26-2022 Complete blood count with white cell differential, automated Levi Saundersham DO Work Phone: Start: 06-26-2022 Ct lumbar spine w/o contrast material Levi Buitrago DO Work Phone: Start: 10-29-2019 Ecg routine ecg w/le ast 12 lds w/i&r Perlita Fish Work Phone: Start: 10-22-2018 Choriogonadotropin ( test) [Presence] in Urine Kehinde Lew Work Phone: Start: 10-22-2018 DRUGS OF ABUSE PROFILE, URINE Kehinde Lew Work Phone: Start: 10-22-2018 URINALYSIS WITH REFL EX CULTURE Kehinde Lew Work Phone: Start: 10-22-2018 Urnls dip stick/tabl et reagent auto microscopy Kehinde Lew Work Phone: Start: 10-22-2018 Assay of acetaminophen Kehinde Mcallister Lew Work Phone: Start: 10-22-2018 Assay of ethanol Sb Mcallister Lew Work Phone: Start: 10-22-2018 Assay of salicylate Jony Mcallister Lew Work Phone: Start: 10-22-2018 CBC, EDIF, PLATELET Jony Lew Work Phone: Start: 10-22-2018 COMPREHENSIVE METABO LIC PROFILE ER Kehinde Lew Work Phone: Start: 10-22-2018 Drug screen quantita tive lithium Kehinde Lew Work Phone: Start: 10-22-2018 MANUAL DIFFERENTIAL Jony Lew Work Phone: Start: 10-22-2018 TSH W/ FREE T4 Kehinde Lew Work Phone: Start: 05-18-2018 Blood count hemoglobin Jocelyn Bowen CNM Comment on above: Order Comment: Urine Source Urine, Clean Catch Performed By: #### L [id number] ####Main Laboratory ([facility])[address] [place] [phone] Nivar, MD Start: 05-15-2018 End: 05-15-2018 LABS (OUTSIDE) Audrey Rao Work Phone: Start: 05-02-2018 Blood count hemoglobin Jocelyn Andrés CNM Comment on above: Order Comment: Urine Source Urine, Clean Catch Performed By: #### L 402.4000 ####Main Laboratory ([facility])[address] [phone] Nivar, MD Start: 04-16-2018 Blood count hemoglobin Jocelyn Andrés CNM Comment on above: Order Comment: Urine Source Urine, Clean Catch Performed By: #### B [id number] ####Main Laboratory ([facility])[address] [phone] Nivar, MD Start: 04-09-2018 Blood count hemoglobin Jocelyn Bowen CNM Comment on above: Order Comment: Urine Source Urine, Unknown Collection Performed By: #### L 300.3000 ####Main Laboratory ([facility])[address] [phone] Nivar, MD Start: 03-26-2018 Blood count hemoglobin Jocelyn Bowen CNM Comment on above: Order Comment: Urine Source Urine, Unknown Collection Performed By: #### L 300.3000 ####Main Laboratory ([facility])[address] [phone] Nivar, MD Start: 01-11-2018 Blood count hemoglobin Jocelyn Andrés CNM Comment on above: Order Comment: Urine Source Urine, Unknown Collection Performed By: #### L 300.3000 ####Main Laboratory ([facility])[address] [phone] Nivar, MD section Tiny BRUNO Tonsillectomy Tiny BRUNO Plan of Treatment Date Care Activity Detail Author Start: 04-05-2024 End: 04-05-2024 Follow-up encounter 04/05/2024 1:00 PM EDT [facility] Neurology [address] [place] [address] Horacio Shaver MD [address] [place] [address] follow up - date and time per [facility] Neurology Comment on above: follow up - date and time per Neme Start: 03-22-2024 End: 03-22-2024 Nursing evaluation of patient and report 03/22/2024 2:00 PM EDT Nurse Visit Urology [address] [phone] [employer] [address] [phone] VUDS; Neurogenic Bladder Urology Comment on above: VUDS; Neurogenic Bladder Start: 03-03-2024 Influenza vaccination [facility] Start: 02-28-2024 End: 02-28-2024 Patient encounter procedure 02/28/2024 3:30 PM EDT [facility] Neurology [address] [phone] Karen Salazar MD [address] [phone] New Consult Neurology Comment on above: New Consult Start: 02-28-2024 End: 02-28-2024 Patient encounter procedure 02/28/2024 10:30 AM EDT Office Visit Neurology [address] [phone] EEG/ New Consult Neurology Comment on above: EEG/ New Consult Start: 02-21-2024 End: 02-20-2025 Complete blood count with white cell differential, automated CBC, EDIF, PLATELET Lab Routine Narcotic dependence, in remission Expected: 02/21/2024, Expires: 02/20/2025 [facility] Comment on above: Expected: 02/21/2024, Expires: Start: 02-21-2024 End: 02-20-2025 Comprehensive metabolic 2000 panel - Serum or Plasma COMPREHENSIVE METABOLIC PANEL Lab Routine Narcotic dependence, in remission Expected: 02/21/2024, Expires: 02/20/2025 [facility] Comment on above: Expected: 02/21/2024, Expires: Start: 02-21-2024 End: 02-20-2025 HEPATITIS A, B, C HEPATITIS A, B, C Lab Routine Narcotic dependence, in remission Expected: 02/21/2024, Expires: 02/20/2025 [facility] Comment on above: Expected: 02/21/2024, Expires: Start: 02-21-2024 End: 02-20-2025 HIV-1/HIV-2 antigen/antibody combination immunoassay RAPID HIV-1/HIV-2 AB WITH P24 ANTIGEN Lab Routine Narcotic dependence, in remission Expected: 02/21/2024, Expires: 02/20/2025 [facility] Comment on above: Expected: 02/21/2024, Expires: Start: 02-14-2024 End: 02-14-2024 Patient encounter procedure 02/14/2024 10:30 AM EDT Office Visit Urology [address] [place] [address] Gillian Millan MD [address] [phone] Neurogenic bladder Urology Comment on above: Neurogenic bladder Start: 02-08-2024 End: 02-08-2024 Patient encounter procedure Pain Management Comment on above: Neuropathic pain [M79.2] Neurogenic Bladder Start: 02-01-2024 Influenza vaccination [facility] Start: 01-31-2024 End: 01-31-2024 Patient encounter procedure 01/31/2024 10:30 AM EDT Office Visit Urology [address] [place] [address] Gillian Millan MD [address] [place], [place] [phone] Neurogenic bladder Urology Comment on above: Neurogenic bladder Start: 01-15-2024 End: 01-15-2024 ambulatory 01/15/2024 10:00 AM EDT Results Only [facility] [address] [place] [address] [place] [address] [facility] Comment on above: labs Start: 01-12-2024 End: 01-12-2024 ambulatory 01/12/2024 11:00 AM EDT Results Only [facility] [address] [place] [address] [facility] Start: 01-09-2024 End: 04-09-2024 25-hydroxyvitamin D3 [Mass/volume] in Serum or Plasma VITAMIN D 25 HYDROXY Lab Routine Paraplegia (HCC) Idiopathic osteoporosis Expected: 01/09/2024, Expires: 04/09/2024 [facility] Comment on above: Expected: 01/09/2024, Expires: Start: 01-09-2024 End: 04-09-2024 CYSTATIN C CYSTATIN C Lab Routine Neurogenic bladder Expected: 01/09/2024, Expires: 04/09/2024 [facility] Comment on above: Expected: 01/09/2024, Expires: Start: 01-09-2024 End: 04-09-2024 Hemoglobin A1c in Blood HEMOGLOBIN A1C Lab Routine Paraplegia (HCC) Expected: 01/09/2024, Expires: 04/09/2024 [facility] Comment on above: Expected: 01/09/2024, Expires: Start: 01-09-2024 End: 04-09-2024 Lipid 1996 panel - Serum or Plasma LIPID PANEL BASIC Lab Routine Paraplegia (HCC) Mixed hyperlipidemia Expected: 01/09/2024, Expires: 04/09/2024 [facility] Comment on above: Expected: 01/09/2024, Expires: Start: 01-09-2024 End: 01-09-2024 Patient encounter procedure 01/09/2024 11:00 AM EDT Office Visit Rehab Medicine [address] [phone] Naty Benedict MD [address] [phone] spinal cord injury Rehab Medicine Comment on above: spinal cord injury Start: 12-21-2023 End: 12-21-2023 Patient encounter procedure 12/21/2023 10:15 AM EDT Appointment [facility] Physical Therapy [address] [place] [phone] Isidro Fowler PTA [facility] Physical Therapy Start: 12-19-2023 End: 12-19-2023 Patient encounter procedure 12/19/2023 10:45 AM EDT Appointment [facility] Physical Therapy [address] [place] [phone] Isidro Fowler PTA [facility] Physical Therapy Start: 12-18-2023 End: 12-18-2023 Patient encounter procedure 12/18/2023 10:30 AM EDT Office Visit [facility] [address] [facility] [address] Floor, [place] [place] [address] DangAnnair, DO [address] [facility] [address] [place] [address] Call pt and lvm that a Xray needs to be done 11/20/23 [facility] Comment on above: Call pt and lvm that a Xray needs to be done 11/20/23 Start: 12-13-2023 End: 12-13-2023 Patient encounter procedure 12/13/2023 10:30 AM EDT Appointment [facility] Physical Therapy [address] [place] [phone] Vickie Feng, PT [facility] Physical Therapy Start: 12-07-2023 End: 12-07-2023 Patient encounter procedure 12/07/2023 11:30 AM EDT Appointment [facility] [address] [place] [phone] Maricarmen Menchaca PTA [facility] Physical Therapy Start: 12-05-2023 End: 12-05-2023 Patient encounter procedure 12/05/2023 11:15 AM EDT Appointment [facility] Physical Therapy [address] [place] [phone] Maricarmen Menchaca PTA [facility] Physical Therapy Start: 11-22-2023 End: 11-22-2023 Patient encounter procedure 11/22/2023 10:30 AM EDT Office Visit [facility] [address] Floor, [place] [place] [address] Getachew Leong [address] [place] [phone] 3..24 LVM to confirm JLH [facility] Comment on above: 09.15.23 LVM to confirm JLH Start: 11-20-2023 End: 11-20-2023 Patient encounter procedure 11/20/2023 10:00 AM EDT Appointment [facility] Physical Therapy [address] [place], [place] [phone] Lyndsay Mahmood PTA [facility] Start: 11-15-2023 End: 11-15-2023 Patient encounter procedure 11/15/2023 10:45 AM EDT Appointment [facility] Physical Therapy [address] [place] [phone] Lyndsay Mahmood PTA [facility] Start: 11-09-2023 End: 11-09-2023 Patient encounter procedure 11/09/2023 10:30 AM EDT Appointment [facility] Physical Therapy [address] [place] [phone] Dilcia Lee PTA [facility] Start: 11-06-2023 End: 11-06-2023 Patient encounter procedure 11/06/2023 10:15 AM EDT Appointment [facility] Physical Therapy [address] [place] [phone] Lyndsay Mahmood PTA [facility] Start: 11-02-2023 End: 11-02-2023 Patient encounter procedure 11/02/2023 10:30 AM EDT Appointment [facility] Physical Therapy [address] [place] [phone] Dilcia Lee PTA [facility] Start: 10-31-2023 End: 10-31-2023 Patient encounter procedure 10/31/2023 10:30 AM EDT Appointment [facility] Physical Therapy [address] [place] [phone] Dilcia Lee PTA [facility] Physical Therapy Start: 10-26-2023 End: 10-26-2023 Patient encounter procedure 10/26/2023 10:30 AM EDT Appointment [facility] Physical Therapy [address] [place] [address], [place] [address] Dilcia Lee, LIV [facility] Start: 10-24-2023 End: 10-24-2023 Patient encounter procedure 10/24/2023 10:30 AM EDT Appointment [facility] Physical Therapy [address] [place] [address], [place] [address] Dilcia Lee, COMPLIANCE SPECIALIST [facility] Physical Therapy Start: 10-12-2023 End: 10-12-2023 Patient encounter procedure 10/12/2023 10:30 AM EDT Appointment [facility] Physical Therapy [address] [place] [phone] Vickie Feng, PT [facility] Physical Therapy Start: 10-05-2023 End: 10-05-2023 Patient encounter procedure 10/05/2023 10:30 AM EDT Appointment [facility] Physical Therapy [address] [place] [phone] Vickie Feng, PT [facility] Physical Therapy Start: 09-28-2023 End: 09-28-2023 Patient encounter procedure 09/28/2023 10:30 AM EDT Appointment [facility] Physical Therapy [address] [place] [address], [place] [address] Vickie Feng, PT [facility] Start: 09-21-2023 End: 09-21-2023 Patient encounter procedure 09/21/2023 10:15 AM EDT Appointment [facility] Physical Therapy [address] [place] [phone] Maria Del Rosario Martinez PTA [facility] Physical Therapy Start: 09-20-2023 End: 09-20-2023 Patient encounter procedure [facility] Comment on above: Follow up 3 LVM to garrison [facility] Start: 09-14-2023 End: 09-14-2023 Patient encounter procedure 09/14/2023 10:30 AM EDT Appointment [facility] Physical Therapy [address] [place] [phone] Dilcia Lee PTA [facility] Physical Therapy Start: 09-07-2023 End: 09-07-2023 Patient encounter procedure 09/07/2023 10:15 AM EST Office Visit [facility] Physical Medicine & Rehabilitation [address] [place] [phone] Bernardo De Santiago, DO [address] [place] [address] chronic pain sydrome, s/p surgery [facility] Comment on above: chronic pain sydrome, s/p surgery Start: 08-31-2023 End: 08-31-2023 Patient encounter procedure 08/31/2023 10:30 AM EST Appointment [facility] Physical Therapy [address] [place] [phone] Dilcia Lee PTA [facility] Physical Therapy Start: 08-29-2023 End: 08-29-2023 Patient encounter procedure 08/29/2023 10:30 AM EST Appointment [facility] Physical Therapy [address] [place] [phone] Dilcia Lee PTA [facility] Physical Therapy Start: 08-24-2023 End: 08-24-2023 Patient encounter procedure 08/24/2023 11:00 AM EST Initial consult [facility] Physical Medicine and Rehabilitation [address] [place] [phone] Juliann Painter MD [address] [place] [phone] Spinal cord injury rehab [facility] Medicine [facility] Rehabilitation Comment on above: Spinal cord injury rehab Start: 08-23-2023 End: 08-23-2023 Patient encounter procedure 08/23/2023 10:30 AM EST Appointment [facility] Physical Therapy [address] [place] [phone] Nicole Wall PTA [facility] Physical Therapy Start: 08-17-2023 End: 08-17-2023 Patient encounter procedure 08/17/2023 10:15 AM EST Appointment [facility] Physical Therapy [address] [place] [phone] Isidro Fowler PTA print schedule [facility] Physical Therapy Comment on above: print schedule Start: 08-01-2023 End: 08-01-2023 Patient encounter procedure 08/01/2023 10:30 AM EST Appointment [facility] Physical Therapy [address] [facility] [place] [address] Dilcia Lee PTA [facility] Physical Therapy Start: 07-24-2023 End: 07-24-2023 Patient encounter procedure 07/24/2023 10:30 AM EST Appointment [facility] Physical Therapy [address] [facility] [place] [address] Vickie Feng, PT [facility] Physical Therapy Start: 07-03-2023 Behavioral Health Screening Behavioral Health Screening [facility] Start: 07-03-2023 Depression Assessment Depression Assessment [facility] Start: 06-28-2023 End: 06-28-2023 Patient encounter procedure 06/28/2023 11:00 AM EST Office Visit [facility] [address] [facility] [address] Floor, [facility] [place] [place] [phone] Dang, Getachew, [address] [facility] [address] [place] [address] 8 wk post op [facility] Comment on above: 8 wk post op Start: 05-18-2023 End: 05-18-2023 Patient encounter procedure 05/18/2023 9:30 AM EST Office Visit [facility] [address] [facility] [address] - [address] Floor, [place] [place] [address] Deb Colon, PIPE ORGAN INSTALLER - PLATFORM ARCHITECT [address] [facility] [address] [place] [address] 2 wk post op-ahammad [facility] Comment on above: 2 wk post op-ahammad Start: 05-05-2023 End: 05-05-2023 Admission to same day surgery center 05/05/2023 7:30 AM EDT - 05/05/2023 2:30 PM EDT Surgery [facility] [address] [place] [address] Getachew Leong, [address] [facility] [address] [id number] L1 LATERAL CORPECTOMY (*CELLSAVER*, [employer], LATERAL LEFT SIDE UP, C-ARM, SSEP MONITORING, EVOKES CONF# [id number]) [facility] Comment on above: L1 LATERAL CORPECTOMY (*CELLSAVER*, MEDT RONICS, LATERAL LEFT SIDE UP, C-ARM, SSEP MONITORING, EVOKES CONF# [id number]) Start: 05-05-2023 End: 05-05-2023 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 LUMBAR INTERBODY FUSION LATERAL Complete paraplegia (HCC) 05/05/2023 7:30 AM EDT [facility] Start: 05-05-2023 End: 05-05-2023 LUMBAR INTERBODY FUSION ANTERIOR LUMBAR INTERBODY FUSION ANTERIOR Complete paraplegia (HCC) 05/05/2023 7:30 AM EDT [facility] Start: 05-05-2023 Subsequent hospital visit by physician 05/05/2023 7:30 AM EDT Hospital Encounter [facility] [address] [place] [address] Getachew Leong, DO [address] [facility] [address] [phone] [facility] Start: 04-27-2023 End: 04-27-2023 Patient encounter procedure 04/27/2023 9:00 AM EDT Initial consult [facility] Physical Medicine and Rehabilitation [address] [place] [address] Altaf Daniels MD [address] [place] [address] Rehab Eval/ Trae Consulted 06/29/22. Sched w/Buffy w/[facility] [phone] *No Testing*-CLEM [facility] Physical Medicine and Rehabilitation Comment on above: Rehab Eval/ Trae Consulted 06/29/22. Sched w/Buffy w/[facility] [phone] *No Testing*- Start: 04-21-2023 End: 04-21-2023 Patient encounter procedure 04/21/2023 9:30 AM EDT Appointment [facility] Pre-Admit Testing [facility] [place] [address] [facility] Pre-Admit Testing Start: 04-13-2023 End: 04-13-2023 Patient encounter procedure 04/13/2023 9:45 AM EDT Appointment [facility] [address] [place] [phone] Dilcia Lee PTA [facility] Physical Therapy Start: 04-11-2023 End: 04-11-2023 Patient encounter procedure 04/11/2023 9:30 AM EDT Appointment [facility] [address] [place], [place] [phone] Maria Del Rosario Martinez PTA [facility] Physical Therapy Start: 04-06-2023 End: 04-06-2023 Patient encounter procedure 04/06/2023 9:45 AM EDT Appointment [facility] [address] [place] [phone] Dilcia Lee PTA [facility] Physical Therapy Start: 04-04-2023 End: 04-04-2023 Patient encounter procedure 04/04/2023 9:30 AM EDT Appointment [facility] [address] [place] [phone] Maria Del Rosario Martinez PTA [facility] Start: 03-30-2023 End: 03-30-2023 Patient encounter procedure 03/30/2023 9:45 AM EDT Appointment [facility] [address] [place] [phone] Dilcia Lee, COMPLIANCE SPECIALIST [facility] Start: 03-03-2023 Covid-19 Vaccine () Covid-19 Vaccine () [facility] Start: 03-03-2023 Influenza vaccination Influ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 [address] [place] [address] [facility] Start: 07-03-2022 DEPRESSION ASSESSMENT DEPRESSION ASSESSMENT [facility] Start: 03-03-2022 Influenza vaccination [facility] Start: 01-31-2022 Influenza vaccination Flu vaccine (#1) [facility] Start: 03-03-2020 Influenza vaccination Flu vaccine (Season Ended) [place] Start: 03-03-2019 [facility] Start: 11-22-2018 GONORRHEA SCREEN GONORRHEA SCREEN [facility] Work Phone: Start: 11-22-2018 Screening for Chlamydia trachomatis [facility] Start: 2018 PAP TESTING PAP TESTING [facility] Start: 2018 Screening for malignant neoplasm of cervix [facility] Start: 03-03-2018 Influenza vaccination INFLUENZA VACCINE (#1) [facility] Work Phone: Start: 2016 DTaP/Tdap/Td vaccine (1 - Tdap) DTaP/Tdap/Td vaccine (1 - Tdap) [facility] Start: 2016 Hepatitis B vaccination HEP B VACCINE (1 of 3 - 19+ 3-dose series) [facility] Start: 2016 Hepatitis B Vaccine (1 of 3 - 19+ 3-dose series) Hepatitis B Vaccine (1 of 3 - 19+ 3-dose series) [facility] Start: 2016 Third diphtheria, tetanus and acellular pertussis (DTaP) vaccination TDAP (ADULT) [facility] Start: 2016 Urine microalbumin profile [facility] Start: 09-23-2015 Anxiety Screening Anxiety Screening [facility] Start: 09-23-2015 Depression Screening Depression Screening [facility] Start: 09-23-2015 HEPATITIS C SCREENING HEPATITIS C SCREENING [facility] Start: 09-23-2015 Hepatitis C screening [facility] Start: 09-23-2015 Tetanus vaccination TETANUS [facility] Work Phone: Start: 2013 Screening for Chlamydia trachomatis [facility] Start: 2012 HIV screening HIV screen [facility] Start: 2012 HPV Vaccine (1 - 3-dose series) HPV Vaccine (1 - 3-dose series) [facility] Start: 2012 Vaccination for human papillomavirus [facility] Start: 09-23-2011 PEDS TO ADULT TRANSITION ANNUAL ASSESSMENT PEDS TO ADULT TRANSITION ANNUAL ASSESSMENT [facility] Start: 2009 Depression Screen Depression Screen [facility] Start: 2009 PEDS TO ADULT TRANSITION INITIAL DISCUSSION PEDS TO ADULT TRANSITION INITIAL DISCUSSION [facility] Start: 2008 HPV vaccine (1 - 2-dose series) HPV vaccine (1 - 2-dose series) [facility] Start: 2008 Vaccination for human papillomavirus [facility] Start: 09-23-2003 Pneumococcal 0-64 years Vaccine (1 of 1 - PPSV23) Pneumococcal 0-64 years Vaccine (1 of 1 - PPSV23) [place] Start: 09-23-2003 Pneumococcal vaccination Pneumococcal Vaccine (1 of 2 - PCV) [facility] Start: 09-23-2003 PNEUMOCOCCAL VACCINE SERIES (1 - PCV) PNEUMOCOCCAL VACCINE SERIES (1 - PCV) [facility] Start: 09-23-2003 PNEUMOCOCCAL VACCINE SERIES (1 of 2 - PCV) PNEUMOCOCCAL VACCINE SERIES (1 of 2 - PCV) [facility] Start: 1998 Varicella vaccine (1 of 2 - 2-dose childhood series) Varicella vaccine (1 of 2 - 2-dose childhood series) [facility] Start: 03-25-1998 COVID-19 VACCINE (#1) COVID-19 VACCINE (#1) [facility] Start: 1997 HEPATITIS B (1 of 3 - 3-dose series) HEPATITIS B (1 of 3 - 3-dose series) [facility] [facility]: [facility] Hepatitis B vaccine (1 of 3 - 3-dose series) Hepatitis B vaccine (1 of 3 - 3-dose series) [facility] Start: 1997 Hepatitis C screening HEPATITIS C VIRUS SCREENING [facility] Start: 1997 Tetanus vaccination TETANUS [facility] End: 02-07-2025 BD DXA TRABECULAR BONE SCORE (TBS) BD DXA TRABECULAR BONE SCORE (TBS) Radiology Routine Paraplegia (HCC) Idiopathic osteoporosis 1 Occurrences starting 01/09/2024 until 02/07/2025 [facility] Comment on above: 1 Occurrences starting 01/09/2024 until 02/07/2025 End: 02-07-2025 DXA Skeletal system.axial Views for bone density DXA-AXIAL SKELETON Radiology Routine Paraplegia (HCC) Idiopathic osteoporosis 1 Occurrences starting 01/09/2024 until 02/07/2025 [facility] Comment on above: 1 Occurrences starting 01/09/2024 until 02/07/2025 EKG 12 Lead EKG 12 Lead ECG Routine 10/29/2019 1:12 PM EDT [facility] [place], [place] EPIL EEG LONG EPIL EEG LONG NE UROLOGY Routine Partial symptomatic epilepsy with complex partial seizures, not intractable, without status epilepticus (HCC) Ordered: 01/25/2024 [facility] Work Phone: Comment on above: Ordered: 01/25/2024 [facility] S Procedures Routine Neurogenic bladder Ordered: 01/31/2024 [facility] Work Phone: Comment on above: Ordered: 01/31/2024 End: 07-21-2022 HIV-2 DNA/RNA PCR HIV-2 DNA/RNA PCR Lab Routine ONCE for 1 Occurrences starting 07/21/2022 until 07/21/2022 [facility] Work Phone: Comment on above: ONCE for 1 Occurrences starting 07/21/19 until 07/21/2022 HIV-2 DNA/RNA PCR HIV-2 DNA/RNA PCR Lab Routine 07/21/2022 6:00 AM EST [facility] Work Phone: End: 03-29-2025 MR Brain WO contrast MRI BRAIN WO IVCON Radiology Routine Convulsions, unspecified convulsion type (HCC) 1 Occurrences starting 02/28/2024 until 03/29/2025 [facility] Work Phone: Comment on above: 1 Occurrences starting 02/28/2024 until 03/29/2025 End: 02-07-2025 MR Knee - left WO contrast MRI KNEE WO IVCON LEFT Radiology Routine Effusion of left knee Paraplegia (HCC) Acute pain of left knee 1 Occurrences starting 01/09/2024 until 02/07/2025 [facility] Work Phone: Comment on above: 1 Occurrences starting 01/09/2024 until 02/07/2025 End: 10-22-2018 Standard ECG ECG ECG STAT One Time for 1 Occurrences starting 10/22/2018 until 10/22/2018 [facility] Comment on above: One Time for 1 Occurrences starting 10/02 until 10/22/2018 End: 06-26-2022 Standard ECG ECG ECG STAT One Time for 1 Occurrences starting 06/26/2022 until 06/26/2022 [facility] Work Phone: Comment on above: One Time for 1 Occurrences starting 06/03 until 06/26/2022 End: 02-07-2025 US Kidney - bilateral and Urinary bladder US KIDNEY/BLADDER Radiology Routine Neurogenic bladder Paraplegia (HCC) 1 Occurrences starting 01/09/2024 until 02/07/2025 [facility] Comment on above: 1 Occurrences starting 01/09/2024 until 02/07/2025 US Kidney - bilatera l and Urinary bladder US KIDNEY/BLADDER Radiology Routine Neurogenic bladder Paraplegia (HCC) 02/08/2024 12:06 PM EDT [facility] Work Phone: XR Lumbar spine AP a nd Lateral XR LUMBAR LIMITED 2V AP/LAT Radiology Routine Mid back pain Fusion of spine of thoracolumbar region 2023 3:41 PM EDT [facility] Work Phone: XR Thoracic spine AP and Lateral XR THORACIC LIMITED 2V AP/LAT Radiology Routine Mid back pain Fusion of spine of thoracolumbar region 2023 3:42 PM EDT [facility] Work Phone: [facility] Immunizations Immunization Date Immunization Notes Care Provider Eloisa laura 07-17-2018 influenza, seasonal, injectable [facility] Work Phone: [facility] 07-17-2018 influenza virus vaccine, unspecified formulation [employer] [facility] 06-11-2018 influenza, injectabl e, quadrivalent, preservative free [facility] Work Phone: [facility] NEGATED: Highlighted row has not occurred!07-21-2021 influenza virus vaccine, unspecified formulation [facility] Payers Date Payer Category Payer Unknown [id number] 2020 Medicaid [id number] 2019 [employer] [id number] 2019 Unknown [place] [facility] OR OTHER [place] OR [facility] OR OTHER xxxxxxxxx 2019-Present xxxxxxxxx [id number] 2017 Unknown [facility] [place] 2017-Present xxxxxxxxxxx [id number] .[id number] 2014 Unknown [id number] 1997 Unknown [id number] 2.16.840.1.049792.3.579.2 .93 1997 Unknown [id number] 2.16.840.1.648843.3.579.2 .93 1997 Unknown [id number] 2.16.840.1.950891.3.579.2 .93 1997 Unknown [id number] 2.16.840.1.008029.3.579.2 .111 1997 Unknown [id number] 2.16.840.1.628466.3.579.2 .593 1997 Unknown [id number] 2.16.840.1.249610.3.579.2 .593 1997 Unknown [id number] 2.16.840.1.531646.3.579.2 .593 1997 Unknown [id number] 2.16.840.1.096234.3.579.2 .175 1997 Unknown [id number] 2.16.840.1.878128.3.579.2 .175 1997 Unknown [id number] 2.16.840.1.138260.3.579.2 .175 1997 Unknown [id number] 2.16840.1.577463.3.579.2 .175 1997 Unknown [id number] 2.16.840.1.064997.3.579.2 .175 1997 Unknown [id number] 2.16.840.1.017782.3.579.2 .175 1997 Unknown [id number] 2.16.840.1.792832.3.579.2 .173 1997 Unknown [id number] 2.16840.1.512329.3.579.2 .173 1997 Unknown [id number] 2.16.840.1.915668.3.579.2 .173 1997 Unknown [id number] 2.16.840.1.221518.3.579.2 .173 1997 Unknown [id number] 2.16.840.1.378919.3.579.2 .173 1997 Unknown [id number] 2.16.840.1.610462.3.579.2 .173 1997 Unknown [id number] 2.16.840.1.391142.3.579.2 .173 1997 Unknown [id number] 2.16.840.1.825315.3.579.2 .173 1997 Unknown [id number] 2.16.840.1.360028.3.579.2 .173 1997 Unknown [id number] 2.16.840.1.651071.3.579.2 .173 1997 Unknown [id number] 2.16.840.1.939104.3.579.2 .173 1997 Unknown [id number] 2.16.840.1.874668.3.579.2 .173 1997 Unknown [id number] 2.16.840.1.122192.3.579.2 .173 1997 Unknown [id number] 2.16.840.1.047996.3.579.2 .173 1997 Unknown [id number] 2.16.840.1.790719.3.579.2 .173 1997 Unknown [id number] 2.16.840.1.056391.3.579.2 .173 1997 Unknown [id number] 2.16.840.1.128207.3.579.2 .173 1997 Unknown [id number] 2.16.840.1.970135.3.579.2 .173 1997 Unknown [id number] 2.16.840.1.477315.3.579.2 .173 1997 Unknown [id number] 2.16.840.1.558002.3.579.2 .173 1997 Unknown [id number] 2.16.840.1.182537.3.579.2 .173 1997 Unknown [id number] 2.16.840.1.643907.3.579.2 .173 1997 Unknown [id number] 2.16.840.1.617511.3.579.2 .173 1997 Unknown [id number] 2.16.840.1.873950.3.579.2 .173 1997 Unknown [id number] 2.16.840.1.124292.3.579.2 .173 1997 Unknown [id number] 2.16.840.1.847338.3.579.2 .173 1997 Unknown [id number] 2.16.840.1.110358.3.579.2 .173 1997 Unknown [id number] 2.16.840.1.245451.3.579.2 .173 1997 Unknown [id number] 2.16.840.1.675748.3.579.2 .173 1997 Unknown [id number] 2.16.840.1.868902.3.579.2 .173 1997 Unknown [id number] 2.16.840.1.995194.3.579.2 .173 1997 Unknown [id number] 2.16.840.1.669582.3.579.2 .983 1997 Unknown [id number] 2.16.840.1.240181.3.579.2 .1259 1997 Unknown [id number] 2.16.840.1.729593.3.579.2 .1259 1997 Unknown [id number] 2.16.840.1.449985.3.579.2 .1259 1997 Unknown [id number] 2.16.840.1.207121.3.579.2 .727 1997 Unknown [id number] 2.16.840.1.866817.3.579.2 .727 1997 Unknown [id number] 2.16.840.1.722820.3.579.2 .727 1997 Unknown [id number] 2.16.840.1.738432.3.579.2 .727 1997 Unknown [id number] 2.16.840.1.209315.3.579.2 .727 1997 Unknown [id number] 2.16.840.1.716590.3.579.2 .727 1997 Unknown [id number] 2.16.840.1.572725.3.579.2 .727 1997 Unknown [id number] 2.16.840.1.307504.3.579.2 .727 1997 Unknown [id number] 2.16.840.1.412340.3.579.2 .727 1997 Unknown [id number] 2.16.840.1.666188.3.579.2 1997 Unknown [id number] 2.16.840.1.134248.3.579.2 72 1997 Unknown [id number] 2.16.840.1.450331.3.579.2 7 1997 Unknown [id number] 2.16.840.1.438898.3.579.2 727 1997 Unknown [id number] 2.16.840.1.189617.3.579.2 7 1997 Unknown [id number] 2.16.840.1.701341.3.579.2 .727 1997 Unknown [id number] 2.16.840.1.289481.3.579.2 .727 1997 Unknown [id number] 2.16.840.1.191319.3.579.2 .727 1997 Unknown [id number] 2.16.840.1.313442.3.579.2 .727 1959 Self-pay 1959 Unknown [id number] Unknown [id number] 2.16.840.1.281188.3.579.2 .139 Unknown [id number] 2.16.840.1.019701.3.579.2 .139 Unknown [id number] 2.16.840.1.461351.3.579.2 .139 Unknown [id number] 2.16.840.1.657010.3.579.2 .139 Unknown [id number] 2.16.840.1.091686.3.579.2 .139 Unknown [id number] 2.16.840.1.174686.3.579.2 .139 Unknown [id number] 2.16.840.1.636004.3.579.2 .139 Unknown [id number] 2.16.840.1.480017.3.579.2 .139 Unknown [id number] 2.16.840.1.381788.3.579.2 .139 Unknown [id number] 2.16.840.1.544979.3.579.2 .139 Unknown [id number] 2.16.840.1.868505.3.579.2 .139 Unknown [id number] 2.16.840.1.791312.3.579.2 .139 Social History Date Type Detail Facility Start: 12-20-2017 End: 02-21-2024 Tobacco smoking status [facility] Heavy tobacco smoker [facility] End: 07-03-2020 History of tobacco use Cigarette Smoker [facility] Work Phone: Start: 12-20-2017 End: 07-28-2023 Cigarettes smoked current (pack per day) - Reported [facility] Start: 2017 [facility] Work Phone: Start: 1997 Sex Assigned At Not on file [facility] Work Phone: Start: 06-10-2019 End: 02-21-2024 Alcohol intake Current drinker of alcohol (finding) [facility] Start: 10-26-2019 End: 01-09-2024 Tobacco smoking status [facility] Current every day smoker [facility] Work Phone: Exposure to SARS-CoV -2 (event) Unable to assess [employer]- [place], [place] Tobacco Vaping, Yes Rodolfo Harris dicandrés [facility] Start: 06-28-2022 End: 07-28-2023 Sex Assigned At Female Rodolfo Varela al [facility] Start: 06-26-2022 End: 01-09-2024 Tobacco use and exposure Smokeless tobacco non-user [facility] Work Phone: Start: 06-16-2022 End: 06-26-2022 Exposure to SARS-CoV-2 (event) Not sure [employer] Phone: Start: 06-26-2022 End: 06-28-2023 Tobacco smoking status [facility] Ex-smoker [employer] End: 07-03-2020 History of tobacco use Current smoker [employer] Work Phone: Start: 06-28-2022 End: 09-07-2023 Alcohol intake Ex-drinker (finding) [employer] Work Phone: Start: 06-28-2022 History SDOH Alcohol Frequency 2 [employer] Work Phone: Start: 06-28-2022 History SDOH Alcohol Std Drinks 1 [employer] Work Phone: Tobacco smoking stat [facility] Tobacco smoking consumption unknown [facility] How often to you hav e a drink containing alcohol? Monthly or less [employer] How many standard dr inks containing alcohol do you have on a typical day? 1 or 2 [employer] How often do you hav e 6 or more drinks on 1 occasion? Never [employer] Start: 1997 Sex Assigned At Female [employer] Start: 11-29-2017 Gender identity Identifies as female gender (finding) [employer] Start: 01-23-2023 Sexual orientation Heterosexual (finding) [employer] Has the [employer], [employer], or water company threatened to shut off services in your home in past 12Mo No [employer] (I/We) worried ashley er (my/our) food would run out before (I/we) got money to buy more. Never true [employer] In the past 12 month s, has lack of transportation kept you from medical appointments or from getting medications? No [employer] Start: 01-09-2024 Tobacco Comment VAPES [facility] Medical Equipment Procedure Code Equipment Code Equipment Original Text Equipment Identifier Dates Set Scr Spnl Merline 4.75mm Ti Brk Off Cdh Solera - [id number] Start: 06-26-2022 Graft Bne Sub W1 xl10cm Spnl Deformity Magnifuse Sc - [id number] Start: 06-26-2022 Screw Bne L5mm D ia1.5mm Univ Self Drl Crss Pin 5/Ea - [id number] Start: 05-05-2023 Screw Spnl Multa xl 6.5x45 Mm For 4.75 Mm Timothy Ats - [id number] Start: 06-26-2022 Screw Spnl Multa xl 7.5x40 Mm For 4.75 Mm Timothy Ats - [id number] Start: 06-26-2022 Timothy Spnl L170mm [id number] Sol[employer] - [id number] Start: 06-26-2022 Screw Spnl Multa xl 6.5x35 Mm For 4.75 Mm Timothy Ats - [id number] Start: 06-26-2022 Screw Spnl Multa xl 6.5x40 Mm For 4.75 Mm Timothy Ats - [id number] Start: 06-26-2022 Graft Bne Sub W1 xl5cm Posterolateral Cerv Demin Bne Mtrx - [id number] Start: 06-26-2022 Endcap Spnl 25c H31mm Od25mm Ti Co Chrome Nit E Exp T2 - [id number] Start: 05-05-2023 Screw Spnl L35mm Od8mm Ti Canc Ant Thorlum Pedcl St Fix Ang - [id number] Start: 05-05-2023 Plate Spnl L5cm Std Ant Thor Ti [place] - [id number] Start: 05-05-2023 Plate Bne 16 H Craniomaxillofacial Ti Str Lo Prof W/O Bar - [id number] Start: 05-05-2023 Comment on above: Description: Implanted into rib Clinical Notes 11-10-2021 to 02-28-2024 Karen Salazar MD - 02/28/2024 3:56 PM Jud Batista MA - 02/21/2024 10:00 AM Kristen Vieira MD - 02/21/2024 10:00 AM Lisa Washburn RT(R) - 02/08/2024 11:30 AM Rigoberto Note Date & Type Note Facility 02-28-2024 Note HNO ID: [id number] Author: KAREN SALAZAR MD Service: ? Author Type: Physician Type: Progress Notes Filed: 02/28/2024 16:04 Note Text: [facility] Patient Name: Kayleen GARCIA Date of : 1995 Referring Provider: Naty Benedict [address] [facility] [id number] INITIAL EPILEPSY CLINIC NOTE 02/28/2024 3:30 PM CHIEF COMPLAINT: New Patient HISTORY OF PRESENT ILLNESS Ms. Kovacs is a 28 year old female seen in [facility] for initial consultation. We had a visit using: [employer] I received consent from the patient to perform the visit using this platform. I have communicated my name and active licensure. The patient's identity and physical location were verified at the time of this visit. Either the patient or their legal patient account representative has been informed of the risks and benefit of - and alternatives to - treatment through a remote evaluation and consents to proceed with the evaluation remotely. There is no one accompanying the patient during today's visit. Seizure History and Evolution Seizures began at age [age] year old. Patient reports a known history of epilepsy with last seizure 4 days ago Patient recalls having a coffee, fell off her wheelchair and had a convulsion, broke her patella. No preceding aura Prior to that she experienced another seizure in Jun 2022 when she fell and reports compression fracture in T spine, since then she has been paralyzed, she is in a wheelchair. Reports GTC seizures at least once a year. No auras She experiences also what she calls mini seizures when she drops things that she is holding. Denies myoclonic jerks or losing time Currently on LTG 125 mg bid and not increased since her last seizures 4 days In the past she used [employer]uko[employer], it did not work Lamictal level never checked No risk factors for epilepsy Total # of Current Anti-seizure Medications: 1 Side Effects to Current Anti-seizure Medications: none Number of seizure types: 1 Hx of generalized tonic-clonic seizures: Yes Seizure-related driving accidents: No Driving: No Lives Alone: No ED Visits in Last 3 Months: No Hospitalizations in Last 3 Months: No Current Vocation: not working CURRENT OUTPATIENT ANTISEIZURE MEDICATIONS (as of the start of the encounter) pregabalin (LYRICA) 300 mg capsule lamoTRIgine (LAMICTAL) 100 mg tablet Prior Anti-seizure Therapies: Trial Adequacy: Max Daily Dose Achieved: Side Effects: Effectiveness: Comments: Comorbidities: Episode Description: SEIZURE TYPE 1: GTC seizure Loss of awareness: Duration: Frequency: Last occurred: yes 1 per year Patient Entered Data: EPILEPSY SCORE 02/28/2024 3:24 PM 02/28/2024 3:24 PM 02/28/2024 3:23 PM First answer obtained - 07/21/2023 10:39 AM PHQ-9 SCORE - - - - MOE 2 SCORE 6 [Positive Anxiety Screen] - - - MOE 7 SCORE 21 [Severe Anxiety Disorder] - - - QOLIE-10 SCORE (0=worst; 100=best QoL - higher scores represent better function) - - - - LSSS SCORE (0- no seizures 100- most severe possible seizures) - - - - C-SSRS SCREEN - - - - On average, how many hours of sleep do you get in a 24-hour period? - 7 - - PROMIS Sleep Disturbance T-SCORE - - - 72 [severe] Have you been diagnosed with Sleep Apnea? 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 Current Outpatient Medications Medication Sig lamoTRIgine (LAMICTAL) 150 mg tablet 1 tablet twice a day cloNIDine HCl (CATAPRES) 0.3 mg tablet Take 0.3 mg by mouth. ibuprofen (MOTRIN) 800 mg tablet Take 800 mg by mouth three times a day as needed. aspirin/acetaminophen/caffeine (EXCEDRIN EXTRA STRENGTH ORAL) Take by mouth two times a day. phentermine HCl (ADIPEX-P ORAL) Take by mouth once daily. oxybutynin ER (DITROPAN XL) 10 mg 24 hr tablet Take 10 mg by mouth once daily. pregabalin (LYRICA) 300 mg capsule Take 300 mg by mouth two times a day. QUEtiapine (SEROQUEL) 100 mg tablet Take 100 mg by mouth daily at bedtime. lamoTRIgine (LAMICTAL) 100 mg tablet Take 125 mg by mouth two times a day. busPIRone (BUSPAR) 15 mg tablet Take 30 mg by mouth two times a day. sertraline (ZOLOFT) 25 mg tablet Take 25 mg by mouth once daily. traMADol 100 mg TM24 Take 100 mg by mouth once daily. traMADol 25 mg tablet Take 50 mg by mouth two times a day. ondansetron (ZOFRAN) 4 mg tablet Take 4 mg by mouth every 8 hours as needed for nausea/vomiting. tiZANidine (ZANAFLEX) 2 mg tablet Take 0.5 tablets by mouth every 6 hours as needed. baclofen 15 mg tablet Take 1 tablet by mouth th (more content not included)... [facility] 02-28-2024 History of Present illness Narrative [facility] Patient Name: Kayleen GARCIA Date of : 1995 Referring Provider: Naty Benedict [facility] [facility] [address] INITIAL EPILEPSY CLINIC NOTE 02/28/2024 3:30 PM CHIEF COMPLAINT: New Patient HISTORY OF PRESENT ILLNESS Ms. Kovacs is a 28 year old female seen in [facility] for initial consultation. We had a visit using: [employer] I received consent from the patient to perform the visit using this platform. I have communicated my name and active licensure. The patient's identity and physical location were verified at the time of this visit. Either the patient or their legal patient account representative has been informed of the risks and benefit of - and alternatives to - treatment through a remote evaluation and consents to proceed with the evaluation remotely. There is no one accompanying the patient during today's visit. Seizure History and Evolution Seizures began at age [age] year old. Patient reports a known history of epilepsy with last seizure 4 days ago Patient recalls having a coffee, fell off her wheelchair and had a convulsion, broke her patella. No preceding aura Prior to that she experienced another seizure in Jun 2022 when she fell and reports compression fracture in T spine, since then she has been paralyzed, she is in a wheelchair. Reports GTC seizures at least once a year. No auras She experiences also what she calls mini seizures when she drops things that she is holding. Denies myoclonic jerks or losing time Currently on LTG 125 mg bid and not increased since her last seizures 4 days In the past she used [employer], it did not work Lamictal level never checked No risk factors for epilepsy Total # of Current Anti-seizure Medications: 1 Side Effects to Current Anti-seizure Medications: none Number of seizure types: 1 Hx of generalized tonic-clonic seizures: Yes Seizure-related driving accidents: No Driving: No Lives Alone: No ED Visits in Last 3 Months: No Hospitalizations in Last 3 Months: No Current Vocation: not working CURRENT OUTPATIENT ANTISEIZURE MEDICATIONS (as of the start of the encounter) pregabalin (LYRICA) 300 mg capsule lamoTRIgine (LAMICTAL) 100 mg tablet Prior Anti-seizure Therapies: Trial Adequacy: Max Daily Dose Achieved: Side Effects: Effectiveness: Comments: Comorbidities: Episode Description: SEIZURE TYPE 1: GTC seizure Loss of awareness: Duration: Frequency: Last occurred: yes 1 per year Patient Entered Data: EPILEPSY SCORE 02/28/2024 3:24 PM 02/28/2024 3:24 PM 02/28/2024 3:23 PM First answer obtained - 07/21/2023 10:39 AM PHQ-9 SCORE - - - - MOE 2 SCORE 6 [Positive Anxiety Screen] - - - MOE 7 SCORE 21 [Severe Anxiety Disorder] - - - QOLIE-10 SCORE (0=worst; 100=best QoL - higher scores represent better function) - - - - LSSS SCORE (0- no seizures 100- most severe possible seizures) - - - - C-SSRS SCREEN - - - - On average, how many hours of sleep do you get in a 24-hour period? - 7 - - PROMIS Sleep Disturbance T-SCORE - - - 72 [severe] Have you been diagnosed with Sleep Apnea? 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 Current Outpatient Medications Medication Sig lamoTRIgine (LAMICTAL) 150 mg tablet 1 tablet twice a day cloNIDine HCl (CATAPRES) 0.3 mg tablet Take 0.3 mg by mouth. ibuprofen (MOTRIN) 800 mg tablet Take 800 mg by mouth three times a day as needed. aspirin/acetaminophen/caffeine (EXCEDRIN EXTRA STRENGTH ORAL) Take by mouth two times a day. phentermine HCl (ADIPEX-P ORAL) Take by mouth once daily. oxybutynin ER (DITROPAN XL) 10 mg 24 hr tablet Take 10 mg by mouth once daily. pregabalin (LYRICA) 300 mg capsule Take 300 mg by mouth two times a day. QUEtiapine (SEROQUEL) 100 mg tablet Take 100 mg by mouth daily at bedtime. lamoTRIgine (LAMICTAL) 100 mg tablet Take 125 mg by mouth two times a day. busPIRone (BUSPAR) 15 mg tablet Take 30 mg by mouth two times a day. sertraline (ZOLOFT) 25 mg tablet Take 25 mg by mouth once daily. traMADol 100 mg TM24 Take 100 mg by mouth once daily. traMADol 25 mg tablet Take 50 mg by mouth two times a day. ondansetron (ZOFRAN) 4 mg tablet Take 4 mg by mouth every 8 hours as needed for nausea/vomiting. tiZANidine (ZANAFLEX) 2 mg tablet Take 0.5 tablets by mouth every 6 hours as needed. baclofen 15 mg tablet Take 1 tablet by mouth three times a day. (Patient taking differently: Take 20 mg by mouth three times a day.) No current facility-administered medications for this visit. ALLERGIES Allergen Reactions Hydroxyzine Other: See Comments, Rash Other reaction(s): AOF Other Reaction(s): AOF Cymbalta [Duloxetin* Other: See Comments Suicidal ideation SOCIAL HISTORY: -Lives in [place], [place] -Patient lives alone? No -Vocation: not working -Functional status: independent in activities of daily living -Patient driving? 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 Questions were answered. The patient agreed with the plan as discussed. I spent a total of 35 minutes on the date of the service which included preparing to see the patient, [id number] patient care, and completing clinical documentation. Karen Amaro M.D documented in this encounter [facility] 02-21-2024 History of Present illness Narrative Kayleen Kovacs 28 y.o. female presenting to be established into the Dr. Steven Vieira practice for alternative treatments to pain. Referred? Yes; Patient is currently seeing Pain Management? Yes; [facility] If Yes; Name of Provider: Medical conditions that they are seeing Pain Management for: Mid Back , Low Back, Knee, Both sides, and Foot, Both sides none Other- associated with [facility] PRIMARY C[facility] Current Primary Care Provider: Yes; If Yes; Name of Provider: REQUIRED DOCUMENTS Have a photo ID: Yes; Signed Snf Controlled Document: Yes; Signed Patient Responsibilities: Yes; Signed Consent to Treat: Yes; POLICIES Patient is aware that they must follow-up as directed by Dr. Steven Vieira while being treated for pain. Patient is aware of Medical Marijuana Policy. Patient is aware of our BNZO Policy. Patient is aware of our Voicemail Policy. Patient is aware that they are only to take the medication prescribed for pain by their provider. OAARS Reviewed Yes; Medication: Oxycodone 5 mg Last filled: 06/30/23 Quantity: 12 Day Supply: 17 Provider: Earline Khan Medication: Phentermine 37.5 mg Last filled: 02/01/24 Quantity: 30 Day Supply:30 Provider: Earline CURRENT AND PAST MEDICAL CONDITIONS noneNoneof child bearing age REVIEW OF SYSTEMS Review of Systems MENTAL STATUS EXAM Appearance: appropriate Attention: normal Interview behavior: cooperative Eye contact: excellent Cognitive impairment: orientation Orientation: time, place, and person Mood: normal Affect: appropriate Motor Activity: normal Speech: normal Thought process: normal Thought content: Delusions: none Suicidal ideation: denied by patient Homicidal ideation: denied by patient Hallucination: none Insight: good Judgement: good Impulse control: intact Sleep: decreased more than normal Appetite: good Energy Level: fair Musculoskeletal: positive for back pain Gun Access: No; PAST DRUG ABUSE HISTORY Any previous drug abuse: yes Meth TREATMENT HISTORY Previous Pain Management Doctors: Yes; Medication prescribed: No; Alternatives to pain medication prescribed: No; Every been dismissed from a Pain Management Provider: No; If Yes; Why? Every fail a urine drug screen while under the care of a Pain Management Doctor: No; Every been in an Outpatient Drug Rehab Program: No; Every been prescribed any Buprenorphine products currently or in the past: No; ENVIRONMENT Relationships/Supports/Children: Yes; Living arrangement/Transportation: HouseOther Does anyone else in the home get prescribed any medications for pain: No; Current Legal Issues? 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 Pt has been tried in the past with Oxycodone 5 mg but due to the medication not being effective the medication was discontinued. PATIENT SCREENINGS AND IN OFFICE ORDERS Preventive labs were ordered HIV, CBC, HEP A, B, C , Comprehensive MET, and Urine Drug Screen Labs drawn in office No; Female. test:YESNegative Yes Sexual Active No; If Yes, Form of control None Concerns for any Sexual Transmitted Infections No; History of IV drug abuse: No; If yes, How many years actively injecting: Echocardiogram ordered No; Have you had recent contact with an infectious case of tuberculosis No; Have you ever had an organ transplant. No; In the last 5 years, have you immigrated from a county with a high TB rate No; Have you been in longterm, chcf, or a prison No; Have you ever had a (Bacille Calmette-Johnny) Vaccine No; Have you ever been told you have an abnormal chest x-ray No; COURSE OF TREATMENT The following medications were discussed that we use to treat pain Belbuca, Bunavail, Butrans, Suboxone, Zubsolv, The appropriate medication and treatment plan was discussed between patient and provider. A course of treatment and plan was decided upon and patient will follow-up at the designated time decided by provider. Patient is being placed on nothing at this time. FOLLOW-UP Discussion of time frame of being on the medication was discuss. Patient will follow-up with Dr. Steven Vieira in 0 days. Appointment has been scheduled. Narcan was sent into the pharmacy. Pt left without receiving treatment due to her having to stop taking Adipex. Pt stated she had to continue the medication. She then stated this place can go FUCK itself. Vilma Batista MA Substance Abuse Intake [facility]/ [facility] Dr. Mireya Vieira, Alejandro Plascencia; PLATFORM ARCHITECT; Maricarmen Chahal; DNP. Direct Phone Line: [phone]; Available M-F 8:00 am to 4:30 pm. Follow Up Visit Kayleen Kovacs [id number] 1995 02/21/2024 Chief Complaint Patient presents with Establish Care Assessment Specialist to est with Dr. Vieira for pain management. History of Present Illness: Kayleen Kovacs is a 28 y.o. female presenting for follow up of Pt here to get established into the practice from standpoint of either MAT or pain control: Kayleen Kovacs 28 y.o. female presenting to be established into the Dr. Steven Vieira practice for alternative treatments to pain. Referred? Yes; Patient is currently seeing Pain Management? Yes; [facility] If Yes; Name of Provider: Medical conditions that they are seeing Pain Management for: Mid Back , Low Back, Knee, Both sides, and Foot, Both sides none Other- associated with [facility] Current Primary Care Provider: Yes; If Yes; Name of Provider: REQUIRED DOCUMENTS Have a photo ID: Yes; Signed Community Services Officer Controlled Document: Yes; Signed Patient Responsibilities: Yes; Signed Consent to Treat: Yes; POLICIES Patient is aware that they must follow-up as directed by Dr. Steven Vieira while being treated for pain. Patient is aware of Medical Marijuana Policy. Patient is aware of our BNZO Policy. Patient is aware of our Voicemail Policy. Patient is aware that they are only to take the medication prescribed for pain by their provider. OAARS Reviewed Yes; Medication: Oxycodone 5 mg Last filled: 06/30/23 Quantity: 12 Day Supply: 17 Provider: Earline Khan Medication: Phentermine 37.5 mg Last filled: 02/01/24 Quantity: 30 Day Supply:30 Provider: Earline CURRENT AND PAST MEDICAL CONDITIONS noneNoneof child bearing age REVIEW OF SYSTEMS Review of Systems MENTAL STATUS EXAM Appearance: appropriate Attention: normal Interview behavior: cooperative Eye contact: excellent Cognitive impairment: orientation Orientation: time, place, and person Mood: normal Affect: appropriate Motor Activity: normal Speech: normal Thought process: normal Thought content: Delusions: none Suicidal ideation: denied by patient Homicidal ideation: denied by patient Hallucination: none Insight: good Judgement: good Impulse control: intact Sleep: decreased more than normal Appetite: good Energy Level: fair Musculoskeletal: positive for back pain Gun Access: No; PAST DRUG ABUSE HISTORY Any previous drug abuse: yes Meth TREATMENT HISTORY Previous Pain Management Doctors: Yes; Medication prescribed: No; Alternatives to pain medication prescribed: No; Every been dismissed from a Pain Management Provider: No; If Yes; Why? Every fail a urine drug screen while under the care of a Pain Management Doctor: No; Every been in an Outpatient Drug Rehab Program: No; Every been prescribed any Buprenorphine products currently or in the past: No; ENVIRONMENT Relationships/Supports/Children: Yes; Living arrangement/Transportation: HouseOther Does anyone else in the home get prescribed any medications for pain: No; Current Legal Issues? 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 Pt has been tried in the past with Oxycodone 5 mg but due to the medication not being effective the medication was discontinued. PATIENT SCREENINGS AND IN OFFICE ORDERS Preventive labs were ordered HIV, CBC, HEP A, B, C , Comprehensive MET, and Urine Drug Screen Labs drawn in office No; Female. test:YESNegative Yes Sexual Active No; If Yes, Form of control None Concerns for any Sexual Transmitted Infections No; History of IV drug abuse: No; If yes, How many years actively injecting: Echocardiogram ordered No; Have you had recent contact with an infectious case of tuberculosis No; Have you ever had an organ transplant. No; In the last 5 years, have you immigrated from a county with a high TB rate No; Have you been in longterm, chcf, or a prison No; Have you ever had a (Bacille Calmette-Johnny) Vaccine No; Have you ever been told you have an abnormal chest x-ray No; COURSE OF TREATMENT The following medications were discussed that we use to treat pain Belbuca, Bunavail, Butrans, Suboxone, Zubsolv, The appropriate medication and treatment plan was discussed between patient and provider. A course of treatment and plan was decided upon and patient will follow-up at the designated time decided by provider. Patient is being placed on nothing at this time. FOLLOW-UP Discussion of time frame of being on the medication was discuss. Patient will follow-up with Dr. Steven Vieira in 0 days. Appointment has been scheduled. Narcan was sent into the pharmacy. Pt left without receiving treatment due to her having to stop taking Adipex. Pt stated she had to continue the medication. She then stated this place can go FUCK itself. The above is the narrative from Vilma regarding her input into the matter I went and saw the pt independently; as I went in and introduced myself I discussed w/ her the matter of her adipex; I asked her how I could help her today and she is considering using suboxone for pain control; I informed her that b/c of her addiction to meth in the past and encouraged her that it was awesome that she has recovered from that but informed her that I wouldn't be able to help her unless she stopped that medication that in my opinion it was counterproductive to give someone who struggles w/ a meth addiction albeit recovered that she take a medication similar to meth; I then proceeded to talk about the pain control for which she is here; she stated to me that the [facility] pain doc that she sees recommended she get on suboxone for pain control but that he couldn't prescribe it to her; I informed her that due to recent regulations you no longer needed an x waiver to be able to prescribe suboxone; I also informed her that suboxone isn't used for pain control that its only use is for OUD and that the medication needs to be tagged w/ that diagnosis to be filled; the side effects is that you can obtain pain relief from this medication but that isn't what it is prescribed for; and that predominately most pharmacies will not fill unless that is the case and most insurance companies will not pay for this medication unless there is an indication related to OUD; pt denies any OUD; I discussed other formulations of buprenorphine like butrans and belbuca but pt adamently refused to listen to those options and only wanted suboxone; she became very belligerent and asked BETSY if you can use suboxone for pain control and BETSY confirmed that you could; unfortunately I told her that I don't practice based off of what BETSY tells us but used medical data and cdc and jethro and fda guidelines to prescribe medications; pt became very belligerent and as she wheeled herself out she told me I could go FUCK my self that this whole building could go FUCK itself and that this is a joke that if a [facility] pain doc said you could take suboxone for pain that I should prescribe her suboxone for pain History: Past Medical History: Diagnosis Date Anxiety Asthma Bipolar 1 disorder Borderline personality disorder Compression fracture of L1 lumbar vertebra Depression Epileptic Essential hypertension, benign gestational Fracture of left patella 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 Rib was removed and place back. Rib fractured and puntured lung leading to a chest tube. TONSILLECTOMY ADENOIDECTOMY Family History Problem Relation Age of Onset Other - Specify Mother Lupus Erythematous Heart Disease - Other Maternal Uncle Other - Specify Maternal Uncle Hodgkins Lipid Disorder Maternal Grandmother Uterine Cancer Maternal Grandmother Hypertension Other close relative Thyroid Disease Other close relative Social History Socioeconomic History Marital status: Single Tobacco Use Smoking status: Heavy Smoker Current packs/day: 1.00 Types: Cigarettes Smokeless tobacco: Never Substance and Sexual Activity Alcohol use: Yes Drug use: Yes Types: Marijuana, Methamphetamines Sexual activity: Yes Partners: Male control/protection: None Social Determinants of Health Financial Resource Strain: Low Risk (01/16/2023) Received from [facility] Overall Financial Resource Strain (CARDIA) Difficulty of Paying Living Expenses: Not very hard Food Insecurity: No Food Insecurity (05/06/2023) Received from [facility] [employer] [facility] Hunger Vital Sign Worried About Running Out of Food in the Last Year: Never true Ran Out of Food in the Last Year: Never true Received from [facility] [employer] [facility] Transportation Problems ([facility] HRSN) Physical Activity: Inactive (01/19/2023) Received from [facility] Exercise Vital Sign Days of Exercise per Week: 0 days Minutes of Exercise per Session: 0 min Stress: Stress Concern Present (01/16/2023) Received from [facility] [employer] [place] [employer] - Occupational Stress Questionnaire Feeling of Stress : Very much Social Connections: Moderately Integrated (01/16/2023) Received from [facility] Social Connection and Isolation Panel [NHANES] Frequency of Communication with Friends and Family: More than three times a week Frequency of Social Gatherings with Friends and Family: Once a week Attends Voodoo Services: Never Active Member of Clubs or Organizations: Yes Attends Club or Organization Meetings: Never Marital Status: Intimate Partner Violence: Not At Risk (01/16/2023) Received from [facility] Humiliation, Afraid, Rape, and Kick questionnaire Fear of Current or Ex-Partner: No Emotionally Abused: No Physically Abused: No Sexually Abused: No Housing Stability: Unknown (01/16/2023) Received from [facility] Housing Stability Vital Sign Unable to Pay for Housing in the Last Year: No Social History Tobacco Use Smoking Status Heavy Smoker Current packs/day: 1.00 Types: Cigarettes Smokeless Tobacco Never Social History Substance and Sexual Activity Alcohol Use Yes Social History Substance and Sexual Activity Drug Use Yes Types: Marijuana, Methamphetamines Allergies: Anesthesia [id number] [propofol]; Hydroxyzine; Anesthetics, amide; Anesthetics, maine; Anesthetics, halogenated; Hydroxyquinolines; and Sodium hypochlorite Home Medications: Current Outpatient Medications: lamoTRIgine 100 MG tablet, Take 1 tablet by mouth Twice daily., Disp: , Rfl: lamoTRIgine 25 MG tablet, Take 1 tablet by mouth Twice daily., Disp: , Rfl: Phentermine HCl 37.5 MG capsule, Take 1 capsule by mouth daily., Disp: , Rfl: pregabalin 300 MG capsule, Take 1 capsule by mouth Twice daily., Disp: , Rfl: QUEtiapine Fumarate (SEROQUEL PO), Take by mouth., Disp: , Rfl: Sertraline 50 MG tablet, TAKE 1 & 1/2 (ONE AND ONE-HALF) TABLETS BY MOUTH DAILY, Disp: , Rfl: traMADol 50 MG tablet, Take 1 tablet by mouth every 6 hours as needed., Disp: , Rfl: TraMADol HCl 100 MG (BIPH) Tab SR 24 HR, Take 1 tablet by mouth daily., Disp: , Rfl: benzonatate (TESSALON PERLES) 100 MG Cap capsule, Take 1 capsule by mouth 3 times daily as needed. (Patient not taking: Reported on 02/21/2024), Disp: 20 capsule, Rfl: 0 Etonogestrel (NEXPLANON) 68 MG SC implant, 68 mg by Implant route once. (Patient not taking: Reported on 02/21/2024), Disp: , Rfl: guaiFENesin 600 MG Tab SR 12 HR tablet SR, Take 1 tablet by mouth 2 times daily. (Patient not taking: Reported on 02/21/2024), Disp: 20 tablet, Rfl: 0 Melatonin 5 MG Tab Dispersible tablet, Take 5 mg by mouth As directed as needed. (Patient not taking: Reported on 02/21/2024), Disp: , Rfl: ondansetron 4 MG Tab tablet, Take 1 tablet by mouth every 8 hours as needed for Nausea. (Patient not taking: Reported on 07/16/2018 ), Disp: 30 tablet, Rfl: 1 ROS: Review of Systems Constitutional: Negative for chills, fatigue and fever. Respiratory: Negative for cough and shortness of breath. Cardiovascular: Negative for chest pain and palpitations. Gastrointestinal: Negative for constipation and diarrhea. Physical Examination: Vital Signs: BP 122/64 Smoking Status Heavy Smoker Kayleen Barbosaallan 28 y.o. female presenting to be established into the Dr. Steven Vieira practice for alternative treatments to pain. Referred? Yes; Patient is currently seeing Pain Management? Yes; [facility] If Yes; Name of Provider: Medical conditions that they are seeing Pain Management for: Mid Back , Low Back, Knee, Both sides, and Foot, Both sides none Other- associated with [facility] Current Primary Care Provider: Yes; If Yes; Name of Provider: REQUIRED DOCUMENTS Have a photo ID: Yes; Signed Snf Controlled Document: Yes; Signed Patient Responsibilities: Yes; Signed Consent to Treat: Yes; POLICIES Patient is aware that they must follow-up as directed by Dr. Steven Vieira while being treated for pain. Patient is aware of Medical Marijuana Policy. Patient is aware of our BNZO Policy. Patient is aware of our Voicemail Policy. Patient is aware that they are only to take the medication prescribed for pain by their provider. OAARS Reviewed Yes; Medication: Oxycodone 5 mg Last filled: 06/30/23 Quantity: 12 Day Supply: 17 Provider: Earline Khan Medication: Phentermine 37.5 mg Last filled: 02/01/24 Quantity: 30 Day Supply:30 Provider: Earline CURRENT AND PAST MEDICAL CONDITIONS noneNoneof child bearing age REVIEW OF SYSTEMS Review of Systems MENTAL STATUS EXAM Appearance: appropriate Attention: normal Interview behavior: cooperative Eye contact: excellent Cognitive impairment: orientation Orientation: time, place, and person Mood: normal Affect: appropriate Motor Activity: normal Speech: normal Thought process: normal Thought content: Delusions: none Suicidal ideation: denied by patient Homicidal ideation: denied by patient Hallucination: none Insight: good Judgement: good Impulse control: intact Sleep: decreased more than normal Appetite: good Energy Level: fair Musculoskeletal: positive for back pain Gun Access: No; PAST DRUG ABUSE HISTORY Any previous drug abuse: yes Meth TREATMENT HISTORY Previous Pain Management Doctors: Yes; Medication prescribed: No; Alternatives to pain medication prescribed: No; Every been dismissed from a Pain Management Provider: No; If Yes; Why? Every fail a urine drug screen while under the care of a Pain Management Doctor: No; Every been in an Outpatient Drug Rehab Program: No; Every been prescribed any Buprenorphine products currently or in the past: No; ENVIRONMENT Relationships/Supports/Children: Yes; Living arrangement/Transportation: HouseOther Does anyone else in the home get prescribed any medications for pain: No; Current Legal Issues? 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 Pt has been tried in the past with Oxycodone 5 mg but due to the medication not being effective the medication was discontinued. PATIENT SCREENINGS AND IN OFFICE ORDERS Preventive labs were ordered HIV, CBC, HEP A, B, C , Comprehensive MET, and Urine Drug Screen Labs drawn in office No; Female. test:YESNegative Yes Sexual Active No; If Yes, Form of control None Concerns for any Sexual Transmitted Infections No; History of IV drug abuse: No; If yes, How many years actively injecting: Echocardiogram ordered No; Have you had recent contact with an infectious case of tuberculosis No; Have you ever had an organ transplant. No; In the last 5 years, have you immigrated from a county with a high TB rate No; Have you been in longterm, chcf, or a prison No; Have you ever had a (Bacille Calmette-Johnny) Vaccine No; Have you ever been told you have an abnormal chest x-ray No; COURSE OF TREATMENT The following medications were discussed that we use to treat pain Belbuca, Bunavail, Butrans, Suboxone, Zubsolv, The appropriate medication and treatment plan was discussed between patient and provider. A course of treatment and plan was decided upon and patient will follow-up at the designated time decided by provider. Patient is being placed on nothing at this time. FOLLOW-UP Discussion of time frame of being on the medication was discuss. Patient will follow-up with Dr. Steven Vieira in 0 days. Appointment has been scheduled. Narcan was sent into the pharmacy. Pt left without receiving treatment due to her having to stop taking Adipex. Pt stated she had to continue the medication. She then stated this place can go FUCK itself. Vilma Batista MA Substance Abuse Intake [facility]/ [facility] Dr. Mireya Vieira, Alejandro Plascencia; PLATFORM ARCHITECT; Maricarmen Chahal; DB. Direct Phone Line: [phone]; Available M-F 8:00 am to 4:30 pm. Physical Exam Constitutional: Appearance: Normal appearance. Neurological: General: No focal deficit present. Mental Status: She is alert and oriented to person, place, and time. Procedure none Laboratory and Additional Data Reviewed: Results for orders placed or performed in visit on 02/21/24 POCT URINE Result Value Ref Range POCT URINE Negative POCT ALERE DRUG SCREEN Result Value Ref Range Marijuana (THC), poct Positive COCAINE (IMER), POCT Negative Opiate (OPI), poct Negative Methamphetamine (mAMP/MET), poct Negative Amphetamine (AMP), poct Positive Barbiturates (BAR), poct Negative Methadone (MTD), poct Negative Ecstasy (MDMA), poct Negative Oxycodone, POC Negative Phencyclidine (PCP), poct Negative Propoxyphene (PPX), poct Negative OXAZEPAM (BZO),POCT Negative Buprenorphine Glucuronide (BUPG),poct Negative Nortripyline (TCA), poct negative No images are attached to the encounter. Assessment and Plan: Kayleen Kovacs is a 28 y.o. female that presents for follow up for Call the office for any questions or concerns. I did have discussion that if any medications are not covered or is not able to get the medications to call the office and let us know so other alternative/arrangements can be made. Kayleen was seen today for establish care. Diagnoses and all orders for this visit: Narcotic dependence, in remission - CBC, EDIF, PLATELET; Future - COMPREHENSIVE METABOLIC PANEL; Future - RAPID HIV-1/HIV-2 AB WITH P24 ANTIGEN; Future - HEPATITIS A, B, C; Future - POCT URINE - POCT ALERE DRUG SCREEN Mireya Vieira MD documented in this encounter [facility] 02-12-2024 Note Patient Education Patellar Fracture, Adult A patellar fracture is a break in the kneecap. The kneecap is also called a patella. The patella is located on the front of the knee. A patellar fracture may make it difficult to walk or do other activities. What are the causes? This condition may be caused by: ? A fall. ? A hard and direct hit to the knee. ? A very hard and strong bending of the knee. ? Overuse of the knee due to repeated movements. What increases the risk? The following factors may make you more likely to develop this condition: ? Playing contact sports or motor sports, especially sports that involve a lot of jumping. ? Having bone problems or diseases of the bone, such as a condition that weakens the bones (osteoporosis) or a bone tumor. ? Having poor strength or flexibility. ? Having metabolism disorders, hormone problems, or nutrition disorders. What are the signs or symptoms? Symptoms of this condition include: ? A tender and swollen knee. ? Pain when moving your knee, especially when straightening it. ? Difficulty walking or using your knee to support body weight. ? A misshapen knee. It may look like a bone in your knee is out of place. ? Hearing a noise, like a pop or a snap, in the front of your knee at the time of injury. ? Having a feeling like a pop or a snap in the front of your knee at the time of injury. How is this diagnosed? This condition may be diagnosed based on your symptoms and medical history, a physical exam, and X-rays. How is this treated? Treatment for this condition depends on the type of fracture that you have. ? If your patella is still in the right position after the fracture and you can still straighten your leg, you may need to wear a brace or cast for 4?6 weeks. ? If your patella is broken into multiple pieces but you are able to straighten your leg, you may be treated with: ? A brace or cast for 4?6 weeks. ? In rare cases, the patella may need to be removed before the cast is applied. ? Surgery. Surgery may be done to place wires, screws, or plates to hold the bones together while they heal. ? If you cannot straighten your leg after a patellar fracture, you will have surgery to hold the patella together until it heals. After surgery, a brace or cast will be applied for 4?6 weeks. ? You may be prescribed medicine to help relieve pain. Follow these instructions at home: Medicines ? Take gmaa-ccb-opajdol and prescription medicines only as told by your health care provider. ? Ask your health care provider if the medicine prescribed to you: ? Requires you to avoid driving or using machinery. ? Can cause constipation. You may need to take these actions to prevent or treat constipation: ? Drink enough fluid to keep your urine pale yellow. ? Take xywl-xap-xmqhipe or prescription medicines. ? Eat foods that are high in fiber, such as beans, whole grains, and fresh fruits and vegetables. ? Limit foods that are high in fat and processed sugars, such as fried or sweet foods. If you have a removable brace: ? Wear the brace as told by your health care provider. Remove it only as told by your health care provider. ? Check the skin around the brace every day. Tell your health care provider about any concerns. ? Loosen the brace if your toes tingle, become numb, or turn cold and blue. ? Keep the brace clean and dry. If you have a nonremovable cast: ? Do not put pressure on any part of the cast until it is fully hardened. This may take several hours. ? Do not stick anything inside the cast to scratch your skin. Doing that increases your risk of infection. ? Check the skin around the cast every day. Tell your health care provider about any concerns. ? You may put lotion on dry skin around the edges of the cast. Do not put lotion on the skin underneath the cast. ? Keep the cast clean and dry. Bathing ? Do not take baths, swim, or use a hot tub until your health care provider approves. Ask your health care provider if you may take showers. ? If the cast or brace is not waterproof: ? Do not let it get wet. ? Cover it with a watertight covering when you take a bath or a shower. Managing pain, stiffness, and swelling ? If directed, put ice on the injured area. To do this: ? If you have a removable brace, remove it as told by your health care provider. ? Put ice in a plastic bag. ? Place a towel between your skin and the bag or between your cast and the bag. ? Leave the ice on for 20 minutes, 2?3 times a day. ? Remove the ice if your skin turns bright red. This is very important. If you cannot feel pain, heat, or cold, you have a greater risk of damage to the area. ? Move your toes and ankle often to reduce stiffness and swelling. ? Raise (elevate) the injured area above the level of your heart while you are sitting or lying down. Activity ? Do not use the injured limb to supp (more content not included)... [facility] 02-08-2024 History of Present illness Narrative Radiology Service Progress Note PATIENT NAME: Kayleen Kovacs DATE OF SERVICE: February 08, 2024 TIME: 12:07 PM PATIENT IDENTITY VERIFICATION COMPLETED USING TWO (2) IDENTIFIERS: Name and Date of confirmed by patient verbally and Name and Date of confirmed by identification band. FALL SCREENING: Has the patient had 2 falls in the last year or 1 fall with injury or currently using an Ambulatory Assistive Device (Walker, Cane, Wheelchair, Crutches, etc.)? No PATIENT GENDER DATA: Female. status: Unknown status: N/A PATIENT RELEVANT IMPLANT DATA REVIEWED: Not Applicable PATIENT PRESENTS WITH AN IMPLANTABLE OR ATTACHED AIR BRAKE MAN: No RADIOLOGY DEPARTMENT: Ultrasound PERIPHERAL IV DATA: Not applicable SIGNED BY: RT Colleen(Roland) February 08, 2024 12:07 PM documented in this encounter [facility] 02-08-2024 Note HNO ID: [id number] Author: LISA ELLIOTT RT(R) Service: ? Author Type: Doctor Osteopathic Type: Progress Notes Filed: 02/08/2024 12:07 Note Text: Radiology Service Progress Note PATIENT NAME: Kayleen Kovacs DATE OF SERVICE: February 08, 2024 TIME: 12:07 PM PATIENT IDENTITY VERIFICATION COMPLETED USING TWO (2) IDENTIFIERS: Name and Date of confirmed by patient verbally and Name and Date of confirmed by identification band. FALL SCREENING: Has the patient had 2 falls in the last year or 1 fall with injury or currently using an Ambulatory Assistive Device (Walker, Cane, Wheelchair, Crutches, etc.)? No PATIENT GENDER DATA: Female. status: Unknown status: N/A PATIENT RELEVANT IMPLANT DATA REVIEWED: Not Applicable PATIENT PRESENTS WITH AN IMPLANTABLE OR ATTACHED AIR BRAKE MAN: No RADIOLOGY DEPARTMENT: Ultrasound PERIPHERAL IV DATA: Not applicable SIGNED BY: RT Colleen(Roland) February 08, 2024 12:07 PM [facility] 02-08-2024 Instructions Amber Bledsoe MD - 02/08/2024 11:11 AM EDT Thank you for taking the time to come and see me today! Please schedule an appointment for: Wellness Center Physician Consult, Chronic Pain Rehabilitation Center Consult, and Pain Psychology evaluation Please purchase the following over the counter treatments for your pain: TENS unit, Lidocaine cream, and Capsaicin cream Please come back to see me as needed for bilateral lumbar paraspinal trigger point injections if this is something you are interested in We discussed possible taper of your tramadol and possible initiation of buprenorphine vs suboxone - please discuss this with your PCP and possible referral to an foreign broadcast specialist/provider who prescribes these medications If you taper off of your tramadol, discuss possible initiation of amitriptyline with your psychiatrist to see if this medication might be beneficial for your pain and/or borderline personality disorder documented in this encounter [facility] 02-08-2024 History of Present illness Narrative Images from the original note were not included. [facility] Pain Management Department Consultation Date: date 02/08/2024 - 10:33 AM Referring physician: Dr. Naty Benedict, physical medicine [id number] [id number] Kayleen Kovacs is seen in consultation requested by Dr. Naty Benedict, physical medicine, for an opinion regarding Neuropathic pain and .Paraplegia. My final recommendations will be communicated back to the requesting physician by way of shared medical record or via US mail. Chief Complaint: Patient presents with: Back Pain: Mid to low back. More pain on left then right SUBJECTIVE History of Present Illness Kayleen Kovacs is a 28 year old and presents with lower back pain and mid back pain. Past medical history is significant for: No past medical history on file. Intensity of pain: 6 on a scale of 0-10. Duration of pain: 2 Years ago, falling out of the car during a seizure. The pain is located Back and radiates to the foot/toe bilaterally. Pain Description: Continuous Aching, Sharp, Pulsating, Spasm, Stabbing Timing: constant Aggravating Factors: moving Alleviating Factors: Relaxation, Reposition, Heat, Cold Interference with: physical activity, walking, sleeping, and social activities. In the past 12 months, She completed 10 physical therapy sessions. Physical therapy is helpful. The patient has seen other pain providers. Possible Red Flag Kayleen Kovacs has no red flag symptoms. Past pain treatment has included PT and Surgery Past pain medications have included Baclofen 20 mg, effective Lidocaine 4% patch, effective Biofreeze 5% gel, effective Icy Hot 10-15% cream, effective Oxycodone IR 10 mg, effective She had relief from the following interventions: PT and Surgery She had relief from the following medications: Tylenol 500 mg, effective Etodolac 400 mg, effective Ibuprofen 800 mg, effective Pregabalin 300 mg, Ibuprofen 800 mg, effective Tramadol 50 mg, Ibuprofen 800 mg, effective Review of Systems HENT: Negative. Eyes: Negative. Respiratory: Negative. Cardiovascular: Positive for leg swelling. Gastrointestinal: Positive for constipation, heartburn and nausea. Genitourinary: Negative. Musculoskeletal: Positive for back pain. Skin: Negative. Neurological: Positive for weakness. Endo/Heme/Allergies: Negative. Psychiatric/Behavioral: Positive for depression. The patient is nervous/anxious and has insomnia. OBJECTIVE Imaging Objective Date February 08, 2024 09/22/23 MRI Thoracic and Lumbar spine IMPRESSION: 1. REDEMONSTRATION OF POSTERIOR FIXATION HARDWARE [...] and assume there are 5 lumbar-type vertebrae. RESULT: THORACIC: Counting reference: Craniocervical and lumbosacral [...] surgical change: Redemonstrated is fixation hardware connecting [id number], with laminectomy around L1. There is considerable [...] presacral soft tissues are normal in appearance. Reports listed here were copy and pasted directly into the note after review of the complete report and/or the images. Those areas highlighted in red are significant and specific to today's encounter. Physical Examination Physical Exam Vitals: BP 121/69 Pulse 119 SpO2 99% LMP 01/18/2024 General: Well appearing, alert, in no acute distress, well-hydrated, well nourished. and Wheelchair Mental Status: Alert and Oriented x3. Speech is normal. Affect: fluctuates Skin: Skin color, texture, turgor normal, no suspicious rashes or lesions HEENT: Pupils equal, round, reactive to light. Not pinpoint. Pulmonary: Breathing easily without tachypnea or bradypnea. Cardiac: No LE edema. Abdomen: soft, not distended Ambulation: Gait is patient did not walk in exam room. Neuro/Musculoskeletal: flexion (normal 45): restricted and reproduces pain extension (normal 25): restricted and reproduces pain Facet Palpation: Right tender; Left tender Straight Leg Raise: Right Negative; Left Negative Palpation: most tenderness noted with palpation of lumbar paraspinals/QL - left worse than right Sam Finger Test: Right Negative; Left Negative Palpation over PSIS: Right non-tender; Left non-tender +Motor Strength Iliopsoas: Right 4/5, left 4/5 Quadriceps: asymmetric with right > left Hamstrings: asymmetric with right > left Ankle Dorsiflexion: asymmetric with right > left Ankle Plantarflexion: asymmetric with right > left +Reflexes Knee (L4): Left: 0 - None Right: 0 - None +Sensory Exam Right LE: Numbness Left LE: Numbness Patient denies any red flag symptoms such as bowel/bladder dysfunction or sudden weakness. Assessment & Plan Assessment & Plan Date February 08, 2024 The primary encounter diagnosis was Myofascial low back pain. Diagnoses of Neuropathic pain, Paraplegia (HCC), Borderline personality disorder (HCC), Personal history of spine surgery, and Burst fracture of lumbar vertebra, sequela were also pertinent to this visit. This is a 28 year old female with history of borderline personality disorder, obesity, seizure disorder, PCOS w seizure + fall + L1 fracture 06/26/22 sp T11 - L3 PSDF complicated by Neuropathic pain and UTI, nonhealing L1 fracture sp T12 -L2 ASDF with L1 corpectomy and discectomy at T12-L1 and L1-L205/05/23 , complicated by PE and left hemothorax s/p video assisted thoracoscopy, VATS, chest tube placement and rib fragment removal who presents for considerations for future pain management. She is wheelchair-bound has been working with physical therapy of increasing the strength in her legs. She notes primarily pain in her low back worse on the left than the right. She notes disparate pain in her left knee as well as occasional pain in her feet. She notes that prolonged sitting makes the pain in her back worse. Her and her partner state that a 6-hour car ride would have her down and out for the next 4 days. 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 She is prescribed tramadol, baclofen, ibuprofen, max dose Lyrica. She is allergic to Cymbalta. She notes that the tramadol is not currently very effective in helping treat her pain. Physical exam is notable for tenderness of the bilateral lumbar paraspinals-most pain reproduced with palpation of the most lateral lumbar paraspinals on the left worse than the right, and the QL. We discussed why I prefer not to use chronic narcotics for chronic pain as a continuous cycle of tolerance with increasing side effect profile. I discussed a possible taper off of tramadol and a discussion with a provider closer to home about possible buprenorphine for Suboxone. There may be some component of opioid-induced hyperalgesia in her pain. We discussed the possible addition of amitriptyline that would only be able to be prescribed after she is off tramadol due to concerns for possible serotonin syndrome. I encouraged her to discuss this with her psychiatrist due to her history of borderline personality disorder and interaction with Zoloft. We discussed the possible utility of lumbar paraspinal trigger point injections-Per prior notes she appears to not want to have injections and I encouraged her to look into these if she would want. We discussed referrals to the comprehensive pain recovery program, our pain psychologist, Dr. Landa, and our wellness center. She is open and amenable to all of these programs. Diagnostics/Referrals: -Chronic Pain Recovery Program referral Referral to pain psychology was ordered Referral to bariatric weight management non operative 2. Pharmaceuticals: -Pain medications were reviewed. I do not recommend chronic opioid therapy for this patients painful condition. We reviewed reasons to avoid these medications in the office today including central sensitization, wind-up phenomena, tolerance and dependence, and side effects such as constipation and respiratory depression. We discussed a possible taper off of tramadol that she will discuss with her prescriber-encouraged discussion of buprenorphine versus Suboxone Encouraged discussion of possible amitriptyline prescription after off tramadol due to concern for serotonin syndrome will need to discuss this with psychiatrist 3. Procedures/Interventions: -Consider future bilateral lumbar paraspinal trigger point injections. -Per prior notes patient does not wish to entertain injections at this time-encouraged her to look into them and let me know if she would like them in the future 4. Rehabilitation/Physical Therapy -Patient was instructed to perform a physical therapy routine on a daily basis. 5. Complementary and Alternative Therapies: -Patient was given a referral for the Wellness Center. 6. Follow up: - Return to clinic in: as needed if symptoms progress or fail to improve The above plan and management options were discussed with patient. The patient is in agreement with the above and verbalized understanding. Amber Bledsoe MD Electronic signature This office note has been dictated and may contain minor typographic errors that escaped review. I have confirmed and edited as necessary, the PFSH and ROS obtained by others. Relevant History from the Electronic Medical Record Questionnaires: Patient Entered Questionnaires PROMIS Score Percentiles 07/21/2023 01/07/2024 PROMIS Global Health Scale Physical Health Percentile 1 0 Mental Health Percentile 0 2 07/21/2023 01/07/2024 02/01/2024 Physical Health Physical Function Percentile 4 1 4 Pain Interference Percentile 0 1 1 Percentiles provide an indication of how the patient's score ranks in relation to the general population. Higher percentile rankings indicate better function/quality of life. 50th percentile is the average of the general population and indicates half of respondents had a worse score. > 31st percentile is within normal limits or better * < 31st percentile is at least SD worse than population, which may be clinically relevant < 16th percentile is at least 1 SD worse than population and warrants attention Depression Screenin07/21/2023 01/07/2024 PHQ-9 Score 13 14 01/07/2024 07/21/2023 PHQ-9 Self Harm Question 9 Not at all Not at all PHQ-9 Self-Harm (Item 9) response options: 0 Not at all 1 Several days 2 More than half the days 3 Nearly every day PHQ-9 Levels: 0-4 Minimal depression 5-9 Mild depression 10-14 Moderate depression 15-19 Moderately severe depression 20-27 Severe depression PHQ-9 Score 01/07/2024 14 07/21/2023 13 (0-4) minimal depression, (5-9) mild depression, (10-14) moderate depression, (15-19) moderately severe depression, (20-27) severe depression No data to display No data to display ALLERGIES Allergen Reactions Hydroxyzine Other: See Comments, Rash Other reaction(s): AOF Other Reaction(s): AOF Cymbalta [Duloxetin* Other: See Comments Suicidal ideation Current Medications: cloNIDine HCl (CATAPRES) 0.3 mg tablet Take 0.3 mg by mouth. ibuprofen (MOTRIN) 800 mg tablet Take 800 mg by mouth three times a day as needed. phentermine HCl (ADIPEX-P ORAL) Take by mouth once daily. oxybutynin ER (DITROPAN XL) 10 mg 24 hr tablet Take 10 mg by mouth once daily. pregabalin (LYRICA) 300 mg capsule Take 300 mg by mouth two times a day. QUEtiapine (SEROQUEL) 100 mg tablet Take 100 mg by mouth daily at bedtime. lamoTRIgine (LAMICTAL) 100 mg tablet Take 125 mg by mouth two times a day. busPIRone (BUSPAR) 15 mg tablet Take 30 mg by mouth two times a day. sertraline (ZOLOFT) 25 mg tablet Take 25 mg by mouth once daily. traMADol 100 mg TM24 Take 100 mg by mouth once daily. traMADol 25 mg tablet Take 50 mg by mouth two times a day. ondansetron (ZOFRAN) 4 mg tablet Take 4 mg by mouth every 8 hours as needed for nausea/vomiting. baclofen 15 mg tablet Take 1 tablet by mouth three times a day. (Patient taking differently: Take 20 mg by mouth three times a day.) aspirin/acetaminophen/caffeine (EXCEDRIN EXTRA STRENGTH ORAL) Take by mouth two times a day. tiZANidine (ZANAFLEX) 2 mg tablet Take 0.5 tablets by mouth every 6 hours as needed. No past medical history on file. No past surgical history on file. No family history on file. Social History: Alcohol Use: Not on file Tobacco Use: Yes Drug Use: Yes Employer And Job Title: None on file Years Of Education Completed: Not specified Marital Status: Medical Decision Making The [facility] EMR was reviewed during the visit including: Problem List, Past Medical History, Past Surgical History, Medications, Allergies, Encounters with other providers and associated notes, Imaging, Labs, and Care Everywhere for OSH records Notes and tests identified as copied and pasted above were directly placed into the frame of this note and are pertinent to my medical decision making. [place]ARRS: PDMP website checked and validated and is consistent with medication report. *Information in italics was copied from the shared EMR Medical Decision Making: Problems: Moderate: 2+ stable chronic illnesses Data: Unique source(s) for external note(s) reviewed: 2 Unique test result(s) reviewed: 2 Risk: Low: Low risk from testing/treatment Medical Decision Making Level: 4 - Moderate documented in this encounter [facility] 02-08-2024 Note HNO ID: [id number] Author: AMBER BLEDSOE MD Service: ? Author Type: Physician Type: Progress Notes Filed: 02/08/2024 11:23 Note Text: [facility] Pain Management Department Consultation Date: date 02/08/2024 - 10:33 AM Referring physician: Dr. Naty Benedict, physical medicine [address] [place] [id number] Kayleen Kovacs is seen in consultation requested by Dr. Naty Benedict, physical medicine, for an opinion regarding Neuropathic pain and .Paraplegia. My final recommendations will be communicated back to the requesting physician by way of shared medical record or via US mail. Chief Complaint: Patient presents with: Back Pain: Mid to low back. More pain on left then right SUBJECTIVE History of Present Illness Kayleen Kovacs is a 28 year old and presents with lower back pain and mid back pain. Past medical history is significant for: No past medical history on file. Intensity of pain: 6 on a scale of 0-10. Duration of pain: 2 Years ago, falling out of the car during a seizure. The pain is located Back and radiates to the foot/toe bilaterally. Pain Description: Continuous Aching, Sharp, Pulsating, Spasm, Stabbing Timing: constant Aggravating Factors: moving Alleviating Factors: Relaxation, Reposition, Heat, Cold Interference with: physical activity, walking, sleeping, and social activities. In the past 12 months, She completed 10 physical therapy sessions. Physical therapy is helpful. The patient has seen other pain providers. Possible Red Flag Kayleen Kovacs has no red flag symptoms. Past pain treatment has included PT and Surgery Past pain medications have included Baclofen 20 mg, effective Lidocaine 4% patch, effective Biofreeze 5% gel, effective Icy Hot 10-15% cream, effective Oxycodone IR 10 mg, effective She had relief from the following interventions: PT and Surgery She had relief from the following medications: Tylenol 500 mg, effective Etodolac 400 mg, effective Ibuprofen 800 mg, effective Pregabalin 300 mg, Ibuprofen 800 mg, effective Tramadol 50 mg, Ibuprofen 800 mg, effective Review of Systems HENT: Negative. Eyes: Negative. Respiratory: Negative. Cardiovascular: Positive for leg swelling. Gastrointestinal: Positive for constipation, heartburn and nausea. Genitourinary: Negative. Musculoskeletal: Positive for back pain. Skin: Negative. Neurological: Positive for weakness. Endo/Heme/Allergies: Negative. Psychiatric/Behavioral: Positive for depression. The patient is nervous/anxious and has insomnia. OBJECTIVE Imaging Objective Date February 08, 2024 09/22/23 MRI Thoracic and Lumbar spine IMPRESSION: 1. REDEMONSTRATION OF POSTERIOR FIXATION HARDWARE [...] and assume there are 5 lumbar-type vertebrae. RESULT: THORACIC: Counting reference: Craniocervical and lumbosacral [...] surgical change: Redemonstrated is fixation hardware connecting [id number], with laminectomy around L1. There is considerable [...] patent Sacrum and iliac wings: The visualized sac (more content not included)... [facility] 02-06-2024 Telephone encounter Note Attempted to call patient, no answer, left message below on patient's voice mail, also sent this message to patient's my chart. This is [facility] office calling with an appointment reminder. You are scheduled with Dr. Bledsoe on January at 10:30 am, with an arrival time of 10:15 am. At [facility] building room 525. Please be advised that Dr. Bledsoe is primarily an interventional pain management provider and does not take over Opioid/Narcotic pain medication regimen. If you have been evaluated by [facility] Pain Management Provider currently or within the last 3 years , you will need to contact their offices to address switching care if recommended. Please bring any outside medical records to your appointment if they are not updated into the [facility]. Please be advised that the appointment with pain management will be for consultation only, any further recommendations will be provided to you at the end of the visit. If you have any question regarding your appointment , please contact the office appointment desk directly to discuss. ( [facility]: [phone] ) [facility] 02-06-2024 Miscellaneous Notes Attempted to call patient, no answer, left message below on patient's voice mail, also sent this message to patient's my chart. This is [facility] office calling with an appointment reminder. You are scheduled with Dr. Bledsoe on January at 10:30 am, with an arrival time of 10:15 am. At [facility] building room 525. Please be advised that Dr. Bledsoe is primarily an interventional pain management provider and does not take over Opioid/Narcotic pain medication regimen. If you have been evaluated by [facility] Pain Management Provider currently or within the last 3 years , you will need to contact their offices to address switching care if recommended. Please bring any outside medical records to your appointment if they are not updated into the [facility]. Please be advised that the appointment with pain management will be for consultation only, any further recommendations will be provided to you at the end of the visit. If you have any question regarding your appointment , please contact the office appointment desk directly to discuss. ( [facility]: [phone] ) documented in this encounter [facility] 01-31-2024 History of Present illness Narrative Images from the original note were not included. [facility] UROLOGY NEW PATIENT CLINIC NOTE SERVICE DATE: 01/31/2024 NAME: Kayleen Kovacs REFERRED BY: Naty Benedict [id number] [facility] [id number] Benedict for an opinion regarding neurogenic bladder. My final recommendations will be communicated back to the requesting physician by way of shared Medical record or letter to requesting physician via US mail. HISTORY OF PRESENT ILLNESS Ms. Kovacs is a 28 year old female with a history of borderline personality disorder, obesity, seizure disorder, PCOS w seizure + fall + L1 fracture 06/26/22 sp T11 - L3 PSDF complicated by Neuropathic pain and UTI, nonhealing L1 fracture sp T12 -L2 ASDF with L1 corpectomy and discectomy at T12-L1 and L1-L205/05/23 , complicated by PE and left hemothorax s/p video assisted thoracoscopy, VATS, chest tube placement and rib fragment removal. She has T6 incomplete paraplegia Sensation all the way to toes Has bladder sensation 80% function in R leg and 15% left Is currently on 10mg of ditropan Valsalva voids 5-6 times a day No nocturia No leaking Mid back pain but unsure about flank Maybe AD - she thinks so Lives in [facility] Cr 0.3 (May 2023) cystatin C January 23 No upper tract imaging Etiology of Neurogenic Bladder: spinal cord injury, Frequency of Urinary Infection: none Urinary Continence: no incontinence Bladder Management (click all that apply): spontaneous void/crede UDS/VCUG: none Upper tract imaging none Mobility: wheelchair Bowel function - extremely constipated all the time Doesn't like the bowel regimen she is on so she doesn't take it This is getting worse Not taking anything now Sexual activity - yes, with control - she thinks is sterile. If it happens it happens Has a 5 year old daughter, lives with her on and off Living situation lives with Wounds - none now AD - possible PMH SHAHRIAR, nocturnal epilepsy, obesity, PCOS, BPD, depression, anxiety. In therapy PSH no abdominal surgeries other than C S Social support: Career: not working Recovering addict - meth, last used in 06/25/22 Vapes Medical marijuana I have communicated my name and active licensure. The patient's identity and physical location were verified at the time of this visit. Either the patient or their legal patient account representative has been informed of the risks and benefits of -- and alternatives to -- treatment through a remote evaluation and consents to proceed with the evaluation remotely. PAST MEDICAL HISTORY No past medical history on file. PAST SURGICAL HISTORY No past surgical history on file. FAMILY HISTORY No family history on file. SOCIAL HISTORY Social History Tobacco Use Smoking status: Every Day Smokeless tobacco: Never Tobacco comments: VAPES Substance Use Topics Drug use: Yes Types: Marijuana MEDICATIONS Current Outpatient Medications Medication Sig cloNIDine HCl (CATAPRES) 0.3 mg tablet Take 0.3 mg by mouth. ibuprofen (MOTRIN) 800 mg tablet Take 800 mg by mouth three times a day as needed. aspirin/acetaminophen/caffeine (EXCEDRIN EXTRA STRENGTH ORAL) Take by mouth two times a day. phentermine HCl (ADIPEX-P ORAL) Take by mouth once daily. oxybutynin ER (DITROPAN XL) 10 mg 24 hr tablet Take 10 mg by mouth once daily. pregabalin (LYRICA) 300 mg capsule Take 300 mg by mouth two times a day. QUEtiapine (SEROQUEL) 100 mg tablet Take 100 mg by mouth daily at bedtime. lamoTRIgine (LAMICTAL) 100 mg tablet Take 125 mg by mouth two times a day. busPIRone (BUSPAR) 15 mg tablet Take 30 mg by mouth two times a day. sertraline (ZOLOFT) 25 mg tablet Take 25 mg by mouth once daily. traMADol 100 mg TM24 Take 100 mg by mouth once daily. traMADol 25 mg tablet Take 50 mg by mouth two times a day. ondansetron (ZOFRAN) 4 mg tablet Take 4 mg by mouth every 8 hours as needed for nausea/vomiting. tiZANidine (ZANAFLEX) 2 mg tablet Take 0.5 tablets by mouth every 6 hours as needed. baclofen 15 mg tablet Take 1 tablet by mouth three times a day. (Patient taking differently: Take 20 mg by mouth three times a day.) No current facility-administered medications for this visit. CURRENT ALLERGIES Allergies As of Date: 01/31/2024 Allergen Noted Reaction CYMBALTA [DULOXETINE] 11/17/2023 Other: See Comments Fully Assessed 01/09/2024 OBJECTIVE PHYSICAL EXAM: There were no vitals filed for this visit. There is no height or weight on file to calculate BMI. There were no vitals filed for this visit. Psych: euthymic, NAD Neuro: A&Ox3. CV: normal perfusion, hemodynamically stable Resp: normal effort DATA Labs Lab Results Component Value Date/Time WBC 6.43 07/28/2022 05:39 AM HB 11.4 (L) 07/28/2022 05:39 AM HCT 37.9 07/28/2022 05:39 AM PLT 372 07/28/2022 05:39 AM NA 138 07/28/2022 05:39 AM K 4.4 07/28/2022 05:39 AM CHLOR 99 07/28/2022 05:39 AM CO2 29 07/28/2022 05:39 AM BUN 11 07/28/2022 05:39 AM CREAT 0.62 07/28/2022 05:39 AM ASSESSMENT/PLAN 1. Neurogenic bowel - ICD9: 564.81, ICD10: K59.2 (primary diagnosis) 2. Neurogenic bladder - ICD9: 596.54, ICD10: N31.9 3. Spinal cord injury at T7-T12 level ([facility]) - ICD9: 952.15, ICD10: S24.103A 4. Borderline personality disorder ([facility]) - ICD9: 301.83, ICD10: F60.3 This is a 28-year-old female with a history of incomplete ?T6 paraplegia, borderline personality disorder, neurogenic bowel and bladder Currently Valsalva voids We discussed neurogenic lower urinary tract dysfunction Would recommend evaluation with video urodynamics She is some symptoms of autonomic dysreflexia so we will need blood pressure monitoring during this test also needs a kidney ultrasound which has been ordered and we will help her schedule We discussed management of neurogenic bowel in general. We discussed things like MiraLAX, suppositories, enemas as well as other things like chait tubes and colostomies She would like to have a GI consult and I will set this up Gillian Millan MD Associate Staff [facility] Department of Urology I spent a total of 30 minutes on the date of the service which included preparing to see the patient, [id number] patient care, completing clinical documentation, obtaining and/or reviewing separately obtained history, performing a medically appropriate examination, counseling and educating the patient/family/caregiver, and ordering medications, tests, or procedures. >50% of time was devoted to patient counseling. documented in this encounter [facility] 01-31-2024 Note HNO ID: [id number] Author: GILLIAN MILLAN MD Service: ? Author Type: Physician Type: Progress Notes Filed: 01/31/2024 10:56 Note Text: [facility] UROLOGY NEW PATIENT CLINIC NOTE SERVICE DATE: 01/31/2024 NAME: Kayleen Kovacs REFERRED BY: Naty Benedict [id number] [facility] [id number] [address] Benedict for an opinion regarding neurogenic bladder. My final recommendations will be communicated back to the requesting physician by way of shared Medical record or letter to requesting physician via US mail. HISTORY OF PRESENT ILLNESS Ms. Kovacs is a 28 year old female with a history of borderline personality disorder, obesity, seizure disorder, PCOS w seizure + fall + L1 fracture 06/26/22 sp T11 - L3 PSDF complicated by Neuropathic pain and UTI, nonhealing L1 fracture sp T12 -L2 ASDF with L1 corpectomy and discectomy at T12-L1 and L1-L205/05/23 , complicated by PE and left hemothorax s/p video assisted thoracoscopy, VATS, chest tube placement and rib fragment removal. She has T6 incomplete paraplegia Sensation all the way to toes Has bladder sensation 80% function in R leg and 15% left Is currently on 10mg of ditropan Valsalva voids 5-6 times a day No nocturia No leaking Mid back pain but unsure about flank Maybe AD - she thinks so Lives in [facility] Cr 0.3 (May 2023) cystatin C January 23 No upper tract imaging Etiology of Neurogenic Bladder: spinal cord injury, Frequency of Urinary Infection: none Urinary Continence: no incontinence Bladder Management (click all that apply): spontaneous void/crede UDS/VCUG: none Upper tract imaging none Mobility: wheelchair Bowel function - extremely constipated all the time Doesn't like the bowel regimen she is on so she doesn't take it This is getting worse Not taking anything now Sexual activity - yes, with control - she thinks is sterile. If it happens it happens Has a 5 year old daughter, lives with her on and off Living situation lives with Wounds - none now AD - possible PMH SHAHRIAR, nocturnal epilepsy, obesity, PCOS, BPD, depression, anxiety. In therapy PSH no abdominal surgeries other than C S Social support: Career: not working Recovering addict - meth, last used in 06/25/22 Vapes Medical marijuana I have communicated my name and active licensure. The patient's identity and physical location were verified at the time of this visit. Either the patient or their legal patient account representative has been informed of the risks and benefits of -- and alternatives to -- treatment through a remote evaluation and consents to proceed with the evaluation remotely. PAST MEDICAL HISTORY No past medical history on file. PAST SURGICAL HISTORY No past surgical history on file. FAMILY HISTORY No family history on file. SOCIAL HISTORY Social History Tobacco Use Smoking status: Every Day Smokeless tobacco: Never Tobacco comments: VAPES Substance Use Topics Drug use: Yes Types: Marijuana MEDICATIONS Current Outpatient Medications Medication Sig cloNIDine HCl (CATAPRES) 0.3 mg tablet Take 0.3 mg by mouth. ibuprofen (MOTRIN) 800 mg tablet Take 800 mg by mouth three times a day as needed. aspirin/acetaminophen/caffeine (EXCEDRIN EXTRA STRENGTH ORAL) Take by mouth two times a day. phentermine HCl (ADIPEX-P ORAL) Take by mouth once daily. oxybutynin ER (DITROPAN XL) 10 mg 24 hr tablet Take 10 mg by mouth once daily. pregabalin (LYRICA) 300 mg capsule Take 300 mg by mouth two times a day. QUEtiapine (SEROQUEL) 100 mg tablet Take 100 mg by mouth daily at bedtime. lamoTRIgine (LAMICTAL) 100 mg tablet Take 125 mg by mouth two times a day. busPIRone (BUSPAR) 15 mg tablet Take 30 mg by mouth two times a day. sertraline (ZOLOFT) 25 mg tablet Take 25 mg by mouth once daily. traMADol 100 mg TM24 Take 100 mg by mouth once daily. traMADol 25 mg tablet Take 50 mg by mouth two times a day. ondansetron (ZOFRAN) 4 mg tablet Take 4 mg by mouth every 8 hours as needed for nausea/vomiting. tiZANidine (ZANAFLEX) 2 mg tablet Take 0.5 tablets by mouth every 6 hours as needed. baclofen 15 mg tablet Take 1 tablet by mouth three times a day. (Patient taking differently: Take 20 mg by mouth three times a day.) No current facility-administered medications for this visit. CURRENT ALLERGIES Allergies As of Date: 01/31/2024 Allergen Noted Reaction CYMBALTA [DULOXETINE] 11/17/2023 Other: See Comments Fully Assessed 01/09/2024 OBJECTIVE PHYSICAL EXAM: There were no vitals filed for this visit. There is no height or weight on file to calculate BMI. There were no vitals filed for this visit. Psych: euthymic, NAD Neuro: AANDOx3. CV: normal perfusion, hemodynamically stable Resp: normal effort DATA Labs Lab Results Component Value Date/Time WBC 6.43 07/28/2022 05:39 AM (more content not included)... [facility] 01-25-2024 Note HNO ID: [id number] Author: SHASTA MADDOX APRN.PLATFORM ARCHITECT Service: ? Author Type: Nurse Practitioner Type: Progress Notes Filed: 01/25/2024 15:16 Note Text: [facility] Review of Records Patient: Kayleen Kovacs Address: [facility] [address] [address] Impression: Review of records for Kayleen Kovacs, a 28 year old female, being referred by Dr. Naty Mata [[facility], Rehab Medicine/Spine ] to Any Epileptologist for further evaluation and treatment. Patient has previously diagnosed epilepsy. EEG from 2020 reported as normal. MRI from 2020 reported no acute. Patient has trialed 2 AEDs. As she is reporting her first seizure in 18 months, would start with a long EEG and consultation with an Epileptologist ------ Summary: Onset: 21 years old Recent Seizure Frequency: 1 episode last week, first one since 2021 Seizure Description(s) Available: Type A: Starts talking weird, falls convulsion, wakes up and is confused, starts crying Duration: 3-4 minutes Current AED(s): Lamotrigine Previous AED(s): Levetiracetam PMH: back surgery/fusion 05/2023 for L1 burst fracture, spinal cord injury, paraplegia, asthma, hepatitis C, PCOS, anxiety, depression, history of IV methamphetamine use (stopped August 2019) PRIOR EVALUATIONS: [facility] [address] [place], [place] [id number], [place] [address] EEG (04/16/2021): Normal MRI brain wo/w contrast (04/19/2021): No acute intracranial abnormality ------ ABDIRIZAK Recommendations: - Long EEG, consult with Epileptologist - Additional testing to be considered by epilepsy clinicians Signed: Shasta Maddox APRN.PLATFORM ARCHITECT January 25, [address] Pompa for review and recommendations. ----- MD Recommendations (as discussed with Dr. Pompa): - Please proceed with the above plan. [facility] 01-25-2024 History of Present illness Narrative [facility] Review of Records Patient: Kayleen Kovacs Address: [address] [place] [address] Impression: Review of records for Kayleen Kovacs, a 28 year old female, being referred by Dr. Naty Mata [[facility], Rehab Medicine/Spine ] to Any Epileptologist for further evaluation and treatment. Patient has previously diagnosed epilepsy. EEG from 2020 reported as normal. MRI from 2020 reported no acute. Patient has trialed 2 AEDs. As she is reporting her first seizure in 18 months, would start with a long EEG and consultation with an Epileptologist ------Summary: Onset: 21 years old Recent Seizure Frequency: 1 episode last week, first one since 2021 Seizure Description(s) Available: Type A: Starts talking weird, falls convulsion, wakes up and is confused, starts crying Duration: 3-4 minutes Current AED(s): Lamotrigine Previous AED(s): Levetiracetam PMH: back surgery/fusion 05/2023 for L1 burst fracture, spinal cord injury, paraplegia, asthma, hepatitis C, PCOS, anxiety, depression, history of IV methamphetamine use (stopped August 2019) PRIOR EVALUATIONS: [facility], [place] [address] EEG (04/16/2021): Normal MRI brain wo/w contrast (04/19/2021): No acute intracranial abnormality ------ABDIRIZAK Recommendations: - Long EEG, consult with Epileptologist - Additional testing to be considered by epilepsy clinicians Signed: Shasta Maddox APRN.PLATFORM ARCHITECT January 25, [address] Pompa for review and recommendations. ----- MD Recommendations (as discussed with Dr. Pompa): - Please proceed with the above plan. documented in this encounter [facility] 01-25-2024 Telephone encounter Note [facility] Initial Intake Interview January 25, 2024 1:38 PM Caller: Brian Relationship to pt: Self Patient name: Kayleen Kovacs Age: [age] year old Address: [address] [place] [address] (home) Insurance: Payor: writewith MEDICAID / Plan: writewith MEDICAID / Product Type: Medicaid / Referred by: Physician: Referring to: Any Reason for Evaluation: further evaluation and treatment Previously evaluated at: [facility] Age & date of onset of seizures/spells: 21 years Frequency: 1 last week and then 2021 was the last one before that Seizure Type A: starts talking weird, Falls, start convulsion, wakes up and is confused, starts crying Duration: 3-4 minutes Recent injuries (within last 6 months)? No Recent surgeries (within the last 6 weeks)? No Seizure medications Current medications: - Lamictal - Past medications: -Keppra Developmental disabilities? No Previous neurosurgery? Yes Type & Date: Back surgery/Spinal cord injury Implants (VNS/NeuroPace/shunt/orthodontic hardware/pacemaker)? yes Type & Date: 2 rods and 8 screws Would patient require anaesthesia or sedation? No Additional pertinent medical information: Spinal cord injury Test Yes or No Date Facility EEG Yes 2022 [facility] Video EEG No MRI brain No CT brain No fMRI brain No PET No Ictal SPECT No INGRID No Naila No Neuropsych testing No Visual field No Invasive video EEG (brain mapping) No If invasive video-EEG monitoring was performed, request: -- brain maps including any power point presentations -- disks of the study If resection was performed, request: -- operative notes -- surgical pathology reports If patient has had any presurgical or surgical workup, has imaging been requested? No Signed: Lorin Trimble [facility] 01-25-2024 Miscellaneous Notes [facility] Initial Intake Interview January 25, 2024 1:38 PM Caller: Brian Relationship to pt: Self Patient name: Kayleen Kovacs Age: [age] year old Address: [address] [place] [address] (home) Insurance: Payor: [employer] [place] MEDICAID / Plan: [facility] MEDICAID / Product Type: Medicaid / Referred by: Physician: Referring to: Any Reason for Evaluation: further evaluation and treatment Previously evaluated at: [facility] Age & date of onset of seizures/spells: 21 years Frequency: 1 last week and then 2021 was the last one before that Seizure Type A: starts talking weird, Falls, start convulsion, wakes up and is confused, starts crying Duration: 3-4 minutes Recent injuries (within last 6 months)? No Recent surgeries (within the last 6 weeks)? No Seizure medications Current medications: - Lamictal - Past medications: -Keppra Developmental disabilities? No Previous neurosurgery? Yes Type & Date: Back surgery/Spinal cord injury Implants (VNS/NeuroPace/shunt/orthodontic hardware/pacemaker)? yes Type & Date: 2 rods and 8 screws Would patient require anaesthesia or sedation? No Additional pertinent medical information: Spinal cord injury Test Yes or No Date Facility EEG Yes 2022 [facility] Video EEG No MRI brain No CT brain No fMRI brain No PET No Ictal SPECT No INGRID No Naila No Neuropsych testing No Visual field No Invasive video EEG (brain mapping) No If invasive video-EEG monitoring was performed, request: -- brain maps including any power point presentations -- disks of the study If resection was performed, request: -- operative notes -- surgical pathology reports If patient has had any presurgical or surgical workup, has imaging been requested? No Signed: Lorin Trimble documented in this encounter [facility] 01-24-2024 Note HNO ID: [id number] Author: ?, ?, ? Service: ? Author Type: ? Type: Progress Notes Filed: 01/24/2024 15:26 Note Text: POPULATION HEALTH NAVIGATION OUTREACH Action/[facility] Support: Called pt to schedule an appt in Pain Management. Lvm for pt to call [phone]. Reason for Outreach Care Gap/HCC or Scheduling Wellness Visits Care Gaps due: Specialty Scheduling Patient Contacted: Unable or unnecessary to reach patient: Left message Toolwi message sent Navigation Signature: Carmen Bustos January 24, 2024 3:26 PM [facility] 01-24-2024 History of Present illness Narrative POPULATION HEALTH NAVIGATION OUTREACH Action/[facility] Support: Called pt to schedule an appt in Pain Management. Lvm for pt to call [phone]. Reason for Outreach Care Gap/HCC or Scheduling Wellness Visits Care Gaps due: Specialty Scheduling Patient Contacted: Unable or unnecessary to reach patient: Left message Toolwi message sent Navigation Signature: Carmen Bustos January 24, 2024 3:26 PM documented in this encounter [facility] 01-24-2024 Note Patient Outreach (JANUSZ ANGELO) KAYLEEN KOVACS ([id number]) 1995 F Date Time Provider Department 01/24/24 NO PCP [facility] During your visit today, we recorded the following information about you: Carmen Bustos 01/24/2024 3:26 PM Signed POPULATION HEALTH NAVIGATION OUTREACH Action/[facility] Support: Called pt to schedule an appt in Pain Management. [facility] for pt to call [phone]. Reason for Outreach Care Gap/HCC or Scheduling Wellness Visits Care Gaps due: Specialty Scheduling Patient Contacted: Unable or unnecessary to reach patient: Left message RippleFunctiont message sent Navigation Signature: Carmen Bustos January 24, 2024 3:26 PM Allergies As of Date: 01/24/2024 Noted Allergy Reaction CYMBALTA (DULOXETINE) 11/17/2023 14 - Other: See Comments Comments: Suicidal ideation Date Reviewed: 01/09/2024 Reviewed by: Mackenzie Sigala, RN - Fully Assessed Prescriptions as of 01/24/2024 - cloNIDine HCl (CATAPRES) 0.3 mg tablet Take 0.3 mg by mouth. - ibuprofen (MOTRIN) 800 mg tablet Take 800 mg by mouth three times a day as needed. - aspirin/acetaminophen/caffeine (EXCEDRIN EXTRA STRENGTH ORAL) Take by mouth two times a day. - phentermine HCl (ADIPEX-P ORAL) Take by mouth once daily. - oxybutynin ER (DITROPAN XL) 10 mg 24 hr tablet Take 10 mg by mouth once daily. - pregabalin (LYRICA) 300 mg capsule Take 300 mg by mouth two times a day. - QUEtiapine (SEROQUEL) 100 mg tablet Take 100 mg by mouth daily at bedtime. - lamoTRIgine (LAMICTAL) 100 mg tablet Take 125 mg by mouth two times a day. - busPIRone (BUSPAR) 15 mg tablet Take 30 mg by mouth two times a day. - sertraline (ZOLOFT) 25 mg tablet Take 25 mg by mouth once daily. - traMADol 100 mg TM24 Take 100 mg by mouth once daily. - traMADol 25 mg tablet Take 50 mg by mouth two times a day. - ondansetron (ZOFRAN) 4 mg tablet Take 4 mg by mouth every 8 hours as needed for nausea/vomiting. - tiZANidine (ZANAFLEX) 2 mg tablet Take 0.5 tablets by mouth every 6 hours as needed. - baclofen 15 mg tablet Take 1 tablet by mouth three times a day. Problem List As Of Date: 01/24/2024 (None) Encounter Status:Closed by CARMEN BUSTOS on 01/24/24 [facility] 01-23-2024 Telephone encounter Note PMR Order placed for Neurology consult to assess and manage seizures Jeferson Benedict MD [facility] 01-23-2024 Miscellaneous Notes PMR Order placed for Neurology consult to assess and manage seizures Jeferson Benedict MD documented in this encounter [facility] 01-22-2024 Telephone encounter Note [facility]:01/09/24 Plan MRI Knee to assess for ligament injury or stress fracture Cystatin C to assess renal function Urology consult to assess bladder with UDS DEXA to assess BMD Ultrasound of kidney/bladder to assess for stones, hydronephrosis and renal cortical disease Vit D level to assess for deficiency, Lipid Profile to assess for HLD, HgB A1c to assess for hyperglycemia Murillo MOM F/U 1 month to reassess neurological exam, f/u on management plan, reassess left knee trauma and assess for pain management needs [facility] 01-22-2024 Miscellaneous Notes [facility]:01/09/24 Plan MRI Knee to assess for ligament injury or stress fracture Cystatin C to assess renal function Urology consult to assess bladder with UDS DEXA to assess BMD Ultrasound of kidney/bladder to assess for stones, hydronephrosis and renal cortical disease Vit D level to assess for deficiency, Lipid Profile to assess for HLD, HgB A1c to assess for hyperglycemia Lidia MOM F/U 1 month to reassess neurological exam, f/u on management plan, reassess left knee trauma and assess for pain management needs documented in this encounter [facility] 01-15-2024 History of Present illness Narrative Physical Therapy Called to cancel 01/23 appt. Offered a different time on a different day with a PT for a UPOC. Patient was not able to. Let her know that we were going to have to schedule a new evaluation and would need a new DrDavian's order due to the fact that it was going to be two months since she had been in. documented in this encounter [facility] 01-12-2024 Telephone encounter Note Patient has called to inquire as to whether she needs to be fasting for blood work she scheduled @[facility] this morning. I confirmed with her that she should fast;she states that she ate an hour ago and will reschedule, Transferred to PSR. No other questions or concerns noted Valeria Dejesus RN [facility] 01-12-2024 Miscellaneous Notes Patient has called to inquire as to whether she needs to be fasting for blood work she scheduled @[facility] this morning. I confirmed with her that she should fast;she states that she ate an hour ago and will reschedule, Transferred to PSR. No other questions or concerns noted Valeria Dejesus RN documented in this encounter [facility] 01-10-[address] Benedict message was relayed to Ms. Kovacs this morning, 01/10/24. Ms. Kovacs is stating that her current physicians are not aware of any pain management physicians that deal with spinal cord injury patients. She is asking if you can recommend a pain management physician for her to see? Please advise. [facility] 01-10-[address] Benedict message was relayed to Ms. Kovacs this morning, 01/10/24. Ms. Kovacs is stating that her current physicians are not aware of any pain management physicians that deal with spinal cord injury patients. She is asking if you can recommend a pain management physician for her to see? Please advise. Patient was seen today, 01/09/24 Ms. Kovacs forgot to ask you a question. Is there anything that you can do for her pain in mid to lower back and both sides more so on the left side? Please advise. documented in this encounter [facility] 01-09-2024 Telephone encounter Note Patient was seen today, 01/09/24 Ms. Kovacs forgot to ask you a question. Is there anything that you can do for her pain in mid to lower back and both sides more so on the left side? Please advise. [facility] 01-09-2024 Naty Babb MD - 01/09/2024 12:38 PM EDT MRI Knee to assess for ligament injury or stress fracture Cystatin C to assess renal function Urology consult to assess bladder with UDS DEXA to assess BMD Ultrasound of kidney/bladder to assess for stones, hydronephrosis and renal cortical disease Vit D level to assess for deficiency, Lipid Profile to assess for HLD, HgB A1c to assess for hyperglycemia Lidia MOM F/U 1 month to reassess neurological exam, f/u on management plan, reassess left knee trauma and assess for pain management needs BONE MINERAL DENSITY PATIENT INSTRUCTIONS ======= Bone mineral density testing measures the amount of calcium in certain parts of your bones. This information determines how strong your bones are. The test is used to detect osteoporosis, a disease in which the bone's mineral content and density are low, increasing a person's risk of fractures. The lumbar spine (lower back) and the hip are the skeletal sites usually examined. For the test, remember that: 1. You cannot take this test if you are . 2. Eat a normal diet on the day of the test. 3. Take your medications as you normally would. 4. DO NOT take calcium supplements (such as Tums) for 24 hours before the test. 5. On the day of the test, leave valuables (jewelry or credit cards) at home. 6. The test should be performed prior to oral, rectal or IV contrast studies, or at least 7 days after any of these studies. For the test, you may be asked to wear a hospital gown. You will lie on your back, on a padded table, in a comfortable position. Generally, you can resume your usual activities immediately. documented in this encounter [facility] 01-09-2024 History of Present illness Narrative Images from the original note were not included. 01/07/2024 PROMIS Global Health Physical Health Summary Physical health: Poor Everyday physical activity, ability: Not at all Fatigue: Severe Pain level: 8 General health: Poor Social activities/roles, ability: Fair Physical Health T-Score 23.5 (Poor) Physical Health Percentile 0 PROMIS Global Health Mental Health Summary Quality of life: Fair Mental health (mood,thinking): Poor Social satisfaction: Fair Emotional problems (anxious,depressed): Always Mental Health T-Score 28.4 (Poor) Mental Health Percentile 2 PHQ-9 Score: 14(Moderate Depression) PHQ-9 Self-Harm: Not at all MOE-7 Score: 18(Severe Anxiety) NEURO-QOL Cognitive Function T-Score 43(Mild Dysfunction) Neuro-Qol Cognitive Function Percentile 24 PROMIS Physical Function T-Score 28(Severe Dysfunction) PROMIS Physical Function Percentile 1 PROMIS Pain Interference T-Score 74(Severe) PROMIS Pain Interference Percentile 1 Percentiles provide an indication of how a patient's score ranks in relation to the [place] general population. > 31st percentile is within normal limits or better *< 31st percentile is at least SD worse than population, which may be clinically relevant < 16th percentile is at least 1 SD worse than population and warrants attention PM&R/SCI Medicine Attending Outpatient Note Name: Kayleen Kovacs [id number] I was asked to evaluate (Kayleen Kovacs) by (Dr referring physician) for recommendations regarding management of his/her rehabilitation needs. My findings and recommendations will be communicated through the shared electronic medical record. Date of Service: 01/09/24 Chief complaint: mid to low LBP Onset: 06/25/22 Location: low back Character: burning stabing aching shooting Radiation: left > right back Intensity: 7 to 9 Duration: on and off Palliative: rest, aqua therapy Marijuana, ibuprophen Provocative: movement, Night Treatment that did not help: shock therapy not sure, zanaflex Hx of Injury: SCI Patient Summary: Kayleen Kovacs is a 28 yo female with a PMH for Anxiety, Borderline personality disorder, Obesity, Seizure disorder, Polycystic ovary syndrome who was admitted to [facility] on 06/26/22 following a fall due to seizure with suspected SCI due to L1 burst fracture. She was taken to the OR on 06/26/22 by Getachew Leong for T11 - L3 PSDF. Hospital course complicated by Neuropathic pain and UTI. She was sent to inpatient rehab on 07/08/22 and discharged on 07/28/22. She was admitted to [facility] on 05/05/23 with continued pain with imaging c/w nonhealing L1 fracture. She was taken to the OR on on 05/05/23 by Getachew Mendez for T12 -L2 ASDF with L1 corpectomy and discectomy at T12-L1 and L1-L2. Hospital course complicated by Pulmonary embolism and left hemothorax s/p video assisted thoracoscopy, VATS, chest tube placement and rib fragment removal by Dr Hernández (05/17/23). Interval History: Surgery last week and fell with left knee joint effusion per xray. Past Medical History: Anxiety Borderline personality disorder Obesity Nocturnal Epilepsy Polycystic ovary syndrome L1 burst fracture s/p T11 - L3 PSDF (06/26/22). Neuropathic pain UTI Nonhealing L1 fracture s/p T12 -L2 ASDF with L1 corpectomy and discectomy at T12-L1 and L1-L2 (05/05/23). Pulmonary embolism Left hemothorax s/p video assisted thoracoscopy, VATS, chest tube placement and rib fragment removal by Dr Hernández (05/17/23). Sleep Apnea Past Surgical History: T11 - L3 PSDF (06/26/22). L1 corpectomy and discectomy at T12-L1 and L1-L2 (05/05/23). Left hemothorax s/p video assisted thoracoscopy, VATS, chest tube placement and rib fragment removal by Dr Hernández (05/17/23). Allergies: Hydroxizine Medications: Current Outpatient Medications on File Prior to Visit Medication Sig cloNIDine HCl (CATAPRES) 0.3 mg tablet Take 0.3 mg by mouth. oxybutynin ER (DITROPAN XL) 10 mg 24 hr tablet Take 10 mg by mouth once daily. pregabalin (LYRICA) 300 mg capsule BID QUEtiapine (SEROQUEL) 100 mg tablet qhs lamoTRIgine (LAMICTAL) 100 mg tablet Take 125 mg by mouth two times a day. busPIRone (BUSPAR) 15 mg tablet Take 30 mg by mouth two times a day. sertraline (ZOLOFT) 25 mg tablet Take 25 mg by mouth once daily. traMADol 100 mg TM24 Take 100 mg by mouth once daily. traMADol 25 mg tablet Take 50 mg by mouth two times a day. ondansetron (ZOFRAN) 4 mg tablet Take 4 mg by mouth every 8 hours as needed for nausea/vomiting. baclofen 15 mg tablet Take 1 tablet by mouth three times a day. (Patient taking differently: Take 20 mg by mouth three times a day.) ibuprofen (MOTRIN) 800 mg tablet Take 800 mg by mouth three times a day as needed. No current facility-administered medications on file prior to visit. 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 and child No Smoke, EtOh, Drugs ROS copied from previous note and updated as needed She is living with and daughter Her PCP is Dr Lisa Lopez Her sleep is crummy. She has sleep apnea and is getting c-pap. Pain = 7 in left knee from recentfall. She has depression and seing psychiatrist She has no signs or sx of respiratory dysfunction. Her spasticity is absent His skin is intact She has no autonomic dysreflexia She has no orthostatic hypotension She has a hx of PE. Her sensation is better on right side Her strength is better She has some left edema She is continent of bladder in toilet 5x a day with some dysuria She had 0 bladder infections in 2023 She has no Urologist She has no history of Bladder/Kidney stones. Her Bladder/Kidney US never done She is continent of bowels with frequent constipation and uses lactulose She Dexa Scan was never She has no history of recent leg/foot fracture She reports Cholesterol She reports Hgb A1c She reports Vit D level She is independent with eating. She is independent with grooming. She is independent with upper extremity dressing She is independent with Lower extremity dressing She is dependent with cooking and cleaning. She is independent with bowel management. She is independent with bladder management. She is independent with bed mobility. She is independent with transfers with slide board. She stands with therapist for 30 seconds with therapist in walker.with left AFO She is independent with wheelchair mobility She has a manual wheelchair with comfort M3 foam cushion. Executive Coach is [employer]. Date getting chair xxx She doesn't drives with hand controls and pulls chair in across her. She has PT 2x a week. Objective Physical Exam: Blood pressure 123/78, pulse 95, resp. rate 18, height 175.3 cm (5' 9 ), weight 91 kg (200 lb 11.2 oz), SpO2 98%. General: cooperative HENT: moist mucosal membranes Cardiovascular: RRR Pulmonary: non-labored breathing, CTAB, no wheezes, crackles, or rhonchi heard GI: Soft, NT, (+) BS. BACK: (+) palpable thoracolumbar BP to light touch (-) Straight Leg Test (-) Contralateral Straight leg raise EXT: Left knee effusion with warmth and tenderness at patellar tendon. AP/Lateral knee appeared stable. (ABN) ROM with B/L ankle flexion contractures (trace) peripheral edema, Neurologic: A&O x 3. Sensory exam: See E- ISNCSCI Motor Exam: See E- ISNCSCI Data Review LABS: BUN/Cr = 3/0.3 on 05/18/23 Imagin06/26/22 MRI T/L-Spine: Acute burst fracture of L1 with 80% [...] in the right psoas muscle with hematoma. 12/19/22 CT L-Spine: Sequelae of thoracolumbar spinal fusion from T11-L3 spanning an L1 burst fracture without adverse features of the orthopedic hardware evident. 01/11/23 Xray L-Spine: Interval healing of L1 severe central compression with portions of the fracture line still visible. Alignment unchanged. 09/22/23 MRI T/L-Spine: 1. REDEMONSTRATION OF POSTERIOR FIXATION HARDWARE BETWEEN T11 AND L3, REMAINS IN GROSSLY ANATOMIC ALIGNMENT ACCOUNTING FOR ARTIFACT. 2. SIGNIFICANT METALLIC ARTIFACT IN THE REGION OF L1 PRECLUDES ANY VISUALIZATION OF VERTEBRAL BODY AND CENTRAL CANAL IN THIS REGION. 3. OUTSIDE OF THIS REGION UNREMARKABLE THORACOLUMBAR SPINE Assessment Traumatic injury to left knee with tenderness, effusion and warmth with xray evidence for osteopenia. Need to assess for fracture vs ligament injury due altered sensation in presence of osteopenia (per xray report). T6 incomplete paraplegia L1 burst fracture s/p T11 - L3 PSDF (06/26/22). Nonhealing L1 fracture s/p T12 -L2 ASDF with L1 corpectomy and discectomy at T12-L1 and L1-L2 (05/05/23). Neuropathic pain Neurogenic Bowel Neurogenic Bladder Neuropathic pain H/O Pulmonary embolism Left hemothorax s/p video assisted thoracoscopy, VATS, chest tube placement and rib fragment removal by Dr Hernández (05/17/23). Sleep Apnea Anxiety Borderline personality disorder Nocturnal Epilepsy ODRS = 390 and I have some concerns and may need pain management but need to focus on recent left knee trauma 60 minutes was taken to review records, history, examine patient, and formulate a management plan with > 50% counseling and coordinating care for the patient. Plan MRI Knee to assess for ligament injury or stress fracture Cystatin C to assess renal function Urology consult to assess bladder with UDS DEXA to assess BMD Ultrasound of kidney/bladder to assess for stones, hydronephrosis and renal cortical disease Vit D level to assess for deficiency, Lipid Profile to assess for HLD, HgB A1c to assess for hyperglycemia Murillo MOM F/U 1 month to reassess neurological exam, f/u on management plan, reassess left knee trauma and assess for pain management needs Naty Benedict MD Spinal Cord Injury Medicine Attending Physical Medicine & Rehabilitation [phone] documented in this encounter [facility] 01-09-2024 Note HNO ID: [id number] Author: NATY BENEDICT MD Service: ? Author Type: Physician Type: Progress Notes Filed: 01/10/2024 08:10 Note Text: 01/07/2024 PROMIS Global Health Physical Health Summary Physical health: Poor Everyday physical activity, ability: Not at all Fatigue: Severe Pain level: 8 General health: Poor Social activities/roles, ability: Fair Physical Health T-Score 23.5 (Poor) Physical Health Percentile 0 PROMIS Global Health Mental Health Summary Quality of life: Fair Mental health (mood,thinking): Poor Social satisfaction: Fair Emotional problems (anxious,depressed): Always Mental Health T-Score 28.4 (Poor) Mental Health Percentile 2 PHQ-9 Score: 14(Moderate Depression) PHQ-9 Self-Harm: Not at all MOE-7 Score: 18(Severe Anxiety) NEURO-QOL Cognitive Function T-Score 43(Mild Dysfunction) Neuro-Qol Cognitive Function Percentile 24 PROMIS Physical Function T-Score 28(Severe Dysfunction) PROMIS Physical Function Percentile 1 PROMIS Pain Interference T-Score 74(Severe) PROMIS Pain Interference Percentile 1 Percentiles provide an indication of how a patient's score ranks in relation to the [place] general population. > 31st percentile is within normal limits or better *< 31st percentile is at least ? SD worse than population, which may be clinically relevant < 16th percentile is at least 1 SD worse than population and warrants attention PMANDR/SCI Medicine Attending Outpatient Note Name: Kayleen Kovacs [id number] I was asked to evaluate (Kayleen Kovacs) by (Dr referring physician) for recommendations regarding management of his/her rehabilitation needs. My findings and recommendations will be communicated through the shared electronic medical record. Date of Service: 01/09/24 Chief complaint: mid to low LBP Onset: 06/25/22 Location: low back Character: burning stabing aching shooting Radiation: left > right back Intensity: 7 to 9 Duration: on and off Palliative: rest, aqua therapy Marijuana, ibuprophen Provocative: movement, Night Treatment that did not help: shock therapy not sure, zanaflex Hx of Injury: SCI Patient Summary: Kayleen Kovacs is a 28 yo female with a PMH for Anxiety, Borderline personality disorder, Obesity, Seizure disorder, Polycystic ovary syndrome who was admitted to [facility] on 06/26/22 following a fall due to seizure with suspected SCI due to L1 burst fracture. She was taken to the OR on 06/26/22 by Getachew Leong for T11 - L3 PSDF. Hospital course complicated by Neuropathic pain and UTI. She was sent to inpatient rehab on 07/08/22 and discharged on 07/28/22. She was admitted to [facility] on 05/05/23 with continued pain with imaging c/w nonhealing L1 fracture. She was taken to the OR on on 05/05/23 by Getachew Mendez for T12 -L2 ASDF with L1 corpectomy and discectomy at T12-L1 and L1-L2. Hospital course complicated by Pulmonary embolism and left hemothorax s/p video assisted thoracoscopy, VATS, chest tube placement and rib fragment removal by Dr Hernández (05/17/23). Interval History: Surgery last week and fell with left knee joint effusion per xray. Past Medical History: Anxiety Borderline personality disorder Obesity Nocturnal Epilepsy Polycystic ovary syndrome L1 burst fracture s/p T11 - L3 PSDF (06/26/22). Neuropathic pain UTI Nonhealing L1 fracture s/p T12 -L2 ASDF with L1 corpectomy and discectomy at T12-L1 and L1-L2 (05/05/23). Pulmonary embolism Left hemothorax s/p video assisted thoracoscopy, VATS, chest tube placement and rib fragment removal by Dr Hernández (05/17/23). Sleep Apnea Past Surgical History: T11 - L3 PSDF (06/26/22). L1 corpectomy and discectomy at T12-L1 and L1-L2 (05/05/23). Left hemothorax s/p video assisted thoracoscopy, VATS, chest tube placement and rib fragment removal by Dr Hernández (05/17/23). Allergies: Hydroxizine Medications: Current Outpatient Medications on File Prior to Visit Medication Sig cloNIDine HCl (CATAPRES) 0.3 mg tablet Take 0.3 mg by mouth. oxybutynin ER (DITROPAN XL) 10 mg 24 hr tablet Take 10 mg by mouth once daily. pregabalin (LYRICA) 300 mg capsule BID QUEtiapine (SEROQUEL) 100 mg tablet qhs lamoTRIgine (LAMICTAL) 100 mg tablet Take 125 mg by mouth two times a day. busPIRone (BUSPAR) 15 mg tablet Take 30 mg by mouth two times a day. sertraline (ZOLOFT) 25 mg tablet Take 25 mg by mouth once daily. traMADol 100 mg TM24 Take 100 mg by mouth once daily. traMADol 25 mg tablet Take 50 mg by mouth two times a day. ondansetron (ZOFRAN) 4 mg tablet Take 4 mg by mouth every 8 hours as needed for nausea/vomiting. baclofen 15 mg tablet Take 1 tablet by mo (more content not included)... [facility] 01-09-2024 Nurse Note Images from the original note were not included. Patient presents with chief complaints of mid back pain. stated last week fell out of wheelchair after seizure and now the left knee is painful. Any new or significant change in pain? no Worst level of pain, 1-10, with 1 being mild discomfort is 8 PAIN INCREASED BY: SITTING and OTHER activity PAIN DECREASED BY: OTHER THERAPEUTIC INTERVENTIONS: PHYSICAL THERAPY LAND, PHYSICAL THERAPY WATER, and MEDICATION The following tests/records were reviewed: na. Mackenzie Sigala RN [facility] 01-09-2024 Nurse Note Images from the original note were not included. Patient presents with chief complaints of mid back pain. stated last week fell out of wheelchair after seizure and now the left knee is painful. Any new or significant change in pain? no Worst level of pain, 1-10, with 1 being mild discomfort is 8 PAIN INCREASED BY: SITTING and OTHER activity PAIN DECREASED BY: OTHER THERAPEUTIC INTERVENTIONS: PHYSICAL THERAPY LAND, PHYSICAL THERAPY WATER, and MEDICATION The following tests/records were reviewed: na. Mackenzie Sigala RN documented in this encounter [facility] 12-13-2023 History of Present illness Narrative Physical Therapy [facility] [place] Inpatient/Observation/Outpatient Rehabilitation Date: 12/13/2023 Patient Name: Kayleen Mcallister Fermín [] Inpatient Acute/Observation [x] Outpatient : 1995 [facility] Inpatient/Observation/Outpatient Rehabilitation Date: 12/13/2023 Patient Name: Kayleen Mcallister Fermín [] Inpatient Acute/Observation [] Outpatient : 1995 [...] does not require skilled services due to: Therapist/Cryptography Teacher will attempt to see this patient, at our earliest opportunity. Vaishali De La Vega Date: 12/13/2023 Plan of Care/Recert ends [facility] Inpatient/Observation/Outpatient Rehabilitation Date: 12/13/2023 Patient Name: Kayleen Kovacs [] Inpatient Acute/Observation [x] Outpatient : 1995 [...] does not require skilled services due to: Therapist/Cryptography Teacher will attempt to see this patient, at our earliest opportunity. Vickie Feng, PT, DPT Date: 12/13/2023 documented in this encounter [facility] 12-05-2023 History of Present illness Narrative Physical Therapy [facility] Inpatient/Observation/Outpatient Rehabilitation Date: 12/05/2023 Patient Name: Kayleen Kovacs [] Inpatient Acute/Observation [x] Outpatient : 1995 [...] does not require skilled services due to: Therapist/Cryptography Teacher will attempt to see this patient, at our earliest opportunity. Lawyer Rivera Date: 12/05/2023 documented in this encounter [facility] 11-28-2023 Telephone encounter Note Per appt desk, Patient is scheduled for 01/09/2024 Sri Johnson [facility] 11-28-2023 Miscellaneous Notes Per appt desk, Patient is scheduled for 01/09/2024 Sri Johnson Tnagela Paula APRN.PLATFORM ARCHITECT has recommended Patient schedule a follow-up appointment (in-office) with Dr. Benedict. Called Patient-no answer. Left voicemail asking she call the [facility] at [phone] to schedule. Message also sent via [employer]. Sri Johnson documented in this encounter [facility] 11-20-2023 Telephone encounter Note Tangela Paula APRN.PLATFORM ARCHITECT has recommended Patient schedule a follow-up appointment (in-office) with Dr. Benedict. Called Patient-no answer. Left voicemail asking she call the [facility] at [phone] to schedule. Message also sent via [employer]. Sri Johnson [facility] 11-20-2023 Tangela Mahan APRN.PLATFORM ARCHITECT - 11/20/2023 12:22 PM EDT Will wean [...] brace you needed. documented in this encounter [facility] 11-17-2023 Note HNO ID: [id number] Author: TANGELA PAULA APRN.ISAAC Service: ? Author Type: Nurse Practitioner Type: Progress Notes Filed: 11/21/2023 08:31 Note Text: I have communicated my name and active licensure. The patient's identity and physical location were verified at the time of this visit. Either the patient or their legal patient account representative has been informed of the risks and benefits of -- and alternatives to -- treatment through a remote evaluation and consents to proceed with the evaluation remotely. November 17, 2023 Reason for visit: Patient presents with: New Patient Previous Visit: HPI (brief) Kayleen Kovacs is a 28 year old ambidextrous female. 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 She was diagnosed with fracture of L1 with T11-L3 fixation and L1-2 decompression Wheelchair bound. Had surgery in [facility] and then was transferred to [facility] HOSPITAL COURSE: Kayleen Kovacs is a 26 y.o. female who was admitted on 06/26/2022 Hospital Course: Txr from [place] for T12 and L1 fx with decreased power and paresthesia. Pt has hx of seizures, previously well controlled. Seizure 06/25 evening, fall while getting out of car 06/26: severe cauda equina secondary to T12 fx. OR for open reduction L1, arthrodesis T11-3, L1 corpectomy w/ decompression of thecal sac, 500cc EBL - hgb 11.9(14.2) 06/27: keflex for UTI, started [facility], tachy, EKG 06/28: fent for breakthrough pain. increase neurontin. replace mag. start ketamine gtt. PMR consult 06/30: dc ketamine. decrease fent. valium. dc flexeril. Pt stated depressed, wants psych consult (not placed) 07/01: seen by [facility], started seroquel 07/07: STI screen, f/u Subjective: Patient presents with: New Patient SCI injury back from June 2022. Following her hospitalization she was discharged to [facility]. Currently doing outpatient therapy, states [...] once daily. traMA (more content not included)... [facility] 11-17-2023 History of Present illness Narrative I have communicated my name and active licensure. The patient's identity and physical location were verified at the time of this visit. Either the patient or their legal patient account representative has been informed of the risks and benefits of -- and alternatives to -- treatment through a remote evaluation and consents to proceed with the evaluation remotely. November 17, 2023 Reason for visit: Patient presents with: New Patient Previous Visit: HPI (brief) Kayleen Kovacs is a 28 year old ambidextrous female. 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 She was diagnosed with fracture of L1 with T11-L3 fixation and L1-2 decompression Wheelchair bound. Had surgery in [facility] and then was transferred to [facility]. HOSPITAL COURSE: Kayleen Kovacs is a 26 y.o. female who was admitted on 06/26/2022 Hospital Course: Txr from [place] for T12 and L1 fx with decreased power and paresthesia. Pt has hx of seizures, previously well controlled. Seizure 06/25 evening, fall while getting out of car 06/26: severe cauda equina secondary to T12 fx. OR for open reduction L1, arthrodesis T11-3, L1 corpectomy w/ decompression of thecal sac, 500cc EBL - hgb 11.9(14.2) 06/27: keflex for UTI, started [facility], tachy, EKG 06/28: fent for breakthrough pain. increase neurontin. replace mag. start ketamine gtt. PMR consult 06/30: dc ketamine. decrease fent. valium. dc flexeril. Pt stated depressed, wants psych consult (not placed) 07/01: seen by [facility], started seroquel 07/07: STI screen, f/u Subjective: Patient presents with: New Patient SCI injury back from June 2022. Following her hospitalization she was discharged to [facility]. Currently doing outpatient therapy, states [...] are warm, dry, no jaundice IMPRESSION: Kayleen Kovacs is a 28 year old female. PMHx [...] problem list on file for this patient. [facility] on 11/17/23 CONSULT TO PHYSICAL MEDICINE AND [...] which included preparing to see the patient, [place] patient care, completing clinical documentation, performing a medically appropriate examination, counseling and educating the patient/family/caregiver, ordering medications, tests, or procedures and communicating results to the patient/family/caregiver. Tangela Paula APRN.ISAAC Physical Medicine & Rehab [facility] documented in this encounter [facility] 11-02-2023 History of Present illness Narrative [facility] Inpatient/Observation/Outpatient Rehabilitation Date: 11/02/2023 Patient Name: Kayleen Kovacs [] Inpatient Acute/Observation [x] Outpatient : 1995 [x] Pt cancelled due to: [x] No Reason Given [] Sick/ill [] Other: Unable to make it today. Therapist/Cryptography Teacher will attempt to see this patient, at our earliest opportunity. Dilcia Lee, COMPLIANCE SPECIALIST [id number] Date: 11/02/2023 documented in this encounter [facility] 10-02-2023 Miscellaneous Notes Call made to patient to discuss image review. Reviewed imaging with Dr. Harrison. Per Dr. Harrison- CT shows solid fusion. MRI Lumbar shows no significant spinal canal stenosis or nerve compression. Nothing to do from surgical standpoint. Will consult PMR Dr. 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 Post Treatment Pain: 5/10 Plan Plan Frequency: 2x/wk Plan weeks: 4 [...] no vc's for technique to improve mobility.-progressing Snf Goals Time Frame for Community Services Officer Goals : 6 weeks Snf Goal 1: pt will be safe and independent with her HEP Community Services Officer Goal 2: Pt will be able to stand with bearing weight with LRAD on both legs for >/=15 minutes to increase BLe strength Snf Goal 3: Pt will increase L LE strength to be able to move through full active ROM in water Community Services Officer Goal 4: Pt will be able to take 5 steps in the water with min assistance with no LOB or fatigue to improve functional mobility. Minutes Tracking: Time In: 1038 Time Out: 1117 Minutes: 39 Timed Code Treatment Minutes: 38 Minutes Madyson Davila PTA Date: 09/28/2023 documented in this encounter [facility] 2023 Note HNO ID: [id number] Author: TU CANTU RT(R) Service: ? Author Type: Technologist Type: Progress Notes Filed: 2023 15:44 Note Text: Radiology Service Progress Note PATIENT NAME: Kayleen Kovacs DATE OF SERVICE: 2023 TIME: 3:42 PM [...] PATIENT PRESENTS WITH AN IMPLANTABLE OR ATTACHED AIR BRAKE MAN: No RADIOLOGY DEPARTMENT: General X-ray: Exam(s) Completed: Spine X-Ray(s): Thoracic and Lumbar AP / LAT / L5-S1 PERIPHERAL IV DATA: Not applicable SIGNED BY: RT Carlota(R) 2023 3:42 PM [facility] 2023 Miscellaneous Notes Radiology Service Progress Note PATIENT NAME: Kayleen Kovacs DATE OF SERVICE: 2023 TIME: 4:16 PM [...] PATIENT PRESENTS WITH AN IMPLANTABLE OR ATTACHED AIR BRAKE MAN: No RADIOLOGY DEPARTMENT: MR; Exam(s) Completed: Spine: Thoracic spine and Lumbar spine PERIPHERAL IV DATA: Not applicable SIGNED BY: RT Hilton(R) 2023 4:16 PM documented in this encounter [facility] 2023 History of Present illness Narrative Radiology Service Progress Note PATIENT NAME: Kayleen Kovacs DATE OF SERVICE: 2023 TIME: 3:42 PM [...] PATIENT PRESENTS WITH AN IMPLANTABLE OR ATTACHED AIR BRAKE MAN: No RADIOLOGY DEPARTMENT: General X-ray: Exam(s) Completed: Spine X-Ray(s): Thoracic and Lumbar AP / LAT / L5-S1 PERIPHERAL IV DATA: Not applicable SIGNED BY: RT Carlota(R) 2023 3:42 PM documented in this encounter [facility] 09-21-2023 History of Present illness Narrative [facility] Outpatient Physical Therapy Daily Note Patient: Kayleen Kovacs : 1995 CSN #: [id number] Referring Physician: Deb Colon APRN - * Date: 09/21/2023 Treatment Diagnosis: General weakness Onset Date: 05/08/22 PT Insurance Information: [facility] Total # of Visits Approved: 24 Per [...] no vc's for technique to improve mobility.-progressing Community Services Officer Goals Time Frame for Snf Goals : 6 weeks Community Services Officer Goal 1: pt will be safe and independent with her HEP Snf Goal 2: Pt will be able to stand with bearing weight with LRAD on both legs for >/=15 minutes to increase BLe strength Snf Goal 3: Pt will increase L LE strength to be able to move through full active ROM in water Community Services Officer Goal 4: Pt will be able to take 5 steps in the water with min assistance with no LOB or fatigue to improve functional mobility. Minutes Tracking: Time In: 1015 Time Out: 1100 Minutes: 45 Timed Code Treatment Minutes: 44 Minutes Maria Del Rosario Martinez PTA Date: 09/21/2023 documented in this encounter [facility] 09-14-2023 History of Present illness Narrative [facility] Inpatient/Observation/Outpatient Rehabilitation Date: 09/14/2023 Patient Name: Kayleen Kovacs [] Inpatient Acute/Observation [x] Outpatient : 1995 [x] Pt no showed for scheduled appointment Voice Teacher attempted to contact patient via phone, no answer. Voicemail was left to encourage patient to schedule further appointments since today was the last PT tx scheduled. Dilcia Lee, COMPLIANCE SPECIALIST [id number] Date: 09/14/2023 documented in this encounter [facility] 08-29-2023 History of Present illness Narrative [facility] Inpatient/Observation/Outpatient Rehabilitation Date: 08/29/2023 Patient Name: Kayleen Kovacs [] Inpatient Acute/Observation [x] Outpatient : 1995 [x] Pt cancelled due to: [] No Reason Given [x] Sick/ill [] Other: Voice Teacher contacted patient via phone, she reports she called and cancelled her appointment earlier in the day. Patient is getting over influenza currently. 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, complete paraplegia G82.21 Treatment Diagnosis: General weakness Onset Date: 05/08/22 PT Insurance Information: [employer] Total # of Visits Approved: 24 Per [...] no vc's for technique to improve mobility.-progressing Community Services Officer Goals Time Frame for Snf Goals : 6 weeks Community Services Officer Goal 1: pt will be safe and independent with her HEP Snf Goal 2: Pt will be able to stand with bearing weight with LRAD on both legs for >/=15 minutes to increase BLe strength Community Services Officer Goal 3: Pt will increase L LE strength to be able to move through full active ROM in water Community Services Officer Goal 4: Pt will be able to take 5 steps in the water with min assistance with no LOB or fatigue to improve functional mobility. Minutes Tracking: Time In: 1032 Time Out: 1119 Minutes: 47 Timed Code Treatment Minutes: 44 Minutes Dilcia Lee, COMPLIANCE SPECIALIST [id number] Date: 08/10/2023 documented in this encounter [facility] 07-28-2023 Note HNO ID: [id number] Author: ARPAN CAMERON APRN.PLATFORM ARCHITECT Service: ? Author Type: Nurse Practitioner Type: Progress Notes Filed: 07/28/2023 13:57 Note Text: SPINE SURGERY OUTPATIENT CONSULT VIRTUAL VISIT This is a virtual visit using Ripple[employer] Zoom Video Visit. It required patient-provider interaction for the medical decision making as documented below. SERVICE DATE: 07/28/2023 PCP: No primary care provider on file. REFERRING PROVIDER: Earline Khan APRN, PLATFORM ARCHITECT [address] [place] [address] Consult requested for an opinion regarding the evaluation and treatment of back pain. My final impression and recommendations will be communicated back to the requesting physician by way of the shared medical record or letter via US mail. PERI Kovacs is a 27 year old female presenting alone. CHIEF COMPLAINT: Mid/Low Back Pain, Leg Pain HISTORY OF PRESENT ILLNESS Patient has epilepsy. Had a fall during epileptic event which caused L1 compression fracture with cord compression. Previous T11-L3 PSF with L1 corpectomy at [facility] 06/26/2022. Subsequent revision of L1 corpectomy with [...] this visit. GENERAL (more content not included)... [facility] 07-20-2023 History of Present illness Narrative [facility] Inpatient/Observation/Outpatient Rehabilitation Date: 07/20/2023 Patient Name: Kayleen Kovacs [] Inpatient Acute/Observation [x] Outpatient : 1995 [x] Pt cancelled due to: [] No Reason Given [x] Sick/ill [] Other: Therapist/Cryptography Teacher will attempt to see this patient, at our earliest opportunity. Dilcia Lee, COMPLIANCE SPECIALIST [id number] Date: 07/20/2023 documented in this encounter [facility] 07-13-2023 Note HNO ID: [id number] Author: ANNELISE GRUBER PA-C Service: ? Author Type: Physician Cryptography Teacher Type: Progress Notes Filed: 07/13/2023 15:44 Note Text: Per Triage: Kayleen Kovacs is a 27 year old female that requests evaluation of spine. Per review, they have symptoms of thoracic and lumbar pain. Bilateral leg pain, L>R. Difficulty walking - uses a WC. Numbness from hips down to feet. Weakness in legs L>R Request: 1st available Referring provider: Earline Khan APRN.PLATFORM ARCHITECT's Patient out of state: no 2nd opinion: [...] and L3, b/l [place] [address] CMT: PT Baclofen Lyrica IBU Advil Pain [...] reviewed during the appt Annelise Gruber PA-C [facility] 07-13-2023 Note HNO ID: [id number] Author: ?, ?, ? Service: ? Author Type: ? Type: Progress Notes Filed: 07/13/2023 15:44 Note Text: Patient name: Kayleen Kovacs Are you being referred by a [facility] Provider or Pain Management Provider at [facility]? No If answer is YES please schedule [...] the facility where the MRI/CT/myelogram was [place]: [place] [address] [facility]: CT (before surgery) MRI/CT/myelogram viewable in Epic: yes, CT If not, please provide [phone] to fax in imaging reports for review. Also, please inform patient to hand carry imaging disc to appointment. XR (spine) within 12 months: Yes If YES,? please ask for the name/address of the facility where the XR was completed: [address] [address] [address] Sage's patients: Have you had previous [...] injections and/or physical therapy was completed PT: [address] [place] [address] Have you tried any other kinds of [...] the surgery was completed: 05/05/2023, 06/26/2022 (Thoracic/Lumbar) [address] [address] Additional Comments [phone] [facility] 05-31-2023 Note HPI Staff Kayleen is a 27 year old female presenting to discuss referral Pt had Lumbar surgery in [facility] on 05/05/23 and Discharged on 05/25/23 pt had spinal cord injury. Records requested from [facility] on 05/30/23. Concerns: Pt here today would [...] management. she is unable to travel to [place] to continue pain management there. has follow up with surgeon at the end of June. motrin 800mg refilled and zofran also refilled. Ordered: cephalexin, 500 mg = 1 cap(s), Oral, q12hr, # 20 cap(s), Refills(s) 0, Pharmacy: [facility] #[id number], 175.3, cm, 05/31/23 10:31:00 EST, Height/Length Dosing, 113.3, kg, 03/01/23 9:34:00 EDT, Weight Dosing ibuprofen, 800 mg = 1 tab(s), Oral, TID, # 90 tab(s), Refills(s) 1, Pharmacy: [facility] #[id number], 175.3, cm, 05/31/23 10:31:00 EST, Height/Length Dosing, 113.3, kg, 03/01/23 9:34:00 EDT, Weight Dosing [facility] Internal Ambulatory Referral 2. Paraplegia (G82.20: Paraplegia, unspecified) pt had accident and is now paraplegic in wheelchair Ordered: cephalexin, 500 mg = 1 cap(s), Oral, q12hr, # 20 cap(s), Refills(s) 0, [id number] 175.3, cm, 05/31/23 10:31:00 EST, Height/Length Dosing, 113.3, kg, 03/01/23 9:34:00 EDT, Weight Dosing ibuprofen, 800 mg = 1 tab(s), Oral, TID, # 90 tab(s), Refills(s) 1, [id number], 175.3, cm, 05/31/23 10:31:00 EST, Height/Length Dosing, 113.3, kg, 03/01/23 9:34:00 EDT, Weight Dosing [facility] Amb[facility] Referral 3. Pain management (R52: Pain, unspecified) pt requesting referral to [facility] pain management. was seen in [facility] for pain management but it's too much for her to travel that far Ordered: cephalexin, 500 mg = 1 cap(s), Oral, q12hr, # 20 cap(s), Refills(s) 0, [id number], 175.3, cm, 05/31/23 10:31:00 EST, Height/Length Dosing, 113.3, kg, 03/01/23 9:34:00 EDT, Weight Dosing ibuprofen, 800 mg = 1 tab(s), Oral, TID, # 90 tab(s), Refills(s) 1, [id number], 175.3, cm, 05/31/23 10:31:00 EST, Height/Length Dosing, 113.3, kg, 03/01/23 9:34:00 EDT, Weight Dosing [facility] Internal Ambulatory Referral 4. Skin infection (L08.9: Local infection of the skin and subcutaneous tissue, unspecified) chest tube incision infected. keflex sent Ordered: [facility] Internal Ambulatory Referral 5. H/O chest tube [...] today. will send keflex for infection Ordered: [facility] Internal Ambulatory Referral 6. Vaping-related disorder (U07.0: Vaping-related disorder) consider not vaping Ordered: cephalexin, 500 mg = 1 cap(s), Oral, q12hr, # 20 cap(s), Refills(s) 0, [id number], 175.3, cm, 05/31/23 10:31:00 EST, Height/Length Dosing, 113.3, kg, 03/01/23 9:34:00 EDT, Weight Dosing ibuprofen, 800 mg = 1 tab(s), Oral, TID, # 90 tab(s), Refills(s) 1, [id number], 175.3, cm, 05/31/23 10:31:00 EST, Height/Length Dosing, 113.3, kg, 03/01/23 9:34:00 EDT, Weight Dosing 7. Former smoker (Z87.891: Personal history of nicotine dependence) continue not smokgin Ordered: cephalexin, 500 mg = 1 cap(s), Oral, q12hr, # 20 cap(s), Refills(s) 0, Pharmacy: [facility] #[id number], 175.3, cm, 05/31/23 10:31:00 EST, Height/Length Dosing, 113.3, kg, 03/01/23 9:34:00 EDT, Weight Dosing ibuprof (more content not included)... [facility] Comment on above: Result Comment: Elec tronically Signed By: Earline Koroma\.jean\Date and Time Signed: 05/31/23 11:01 EST 03-21-2023 History of Present illness Narrative [facility] Inpatient/Observation/Outpatient Rehabilitation Date: 03/21/2023 Patient Name: Kayleen Kovacs [] Inpatient Acute/Observation [x] Outpatient : 1995 [x] Pt cancelled due to: [] No Reason Given [] Sick/ill [x] Other: Pt spoke with weekend receptionist stating she was in too much pain to make it to therapy this date. Therapist/Cryptography Teacher will attempt to see this patient, at our earliest opportunity. Maria Del Rosario Martinez, COMPLIANCE SPECIALIST Date: 03/21/2023 documented in this encounter [facility] 07-23-2022 History of Present illness Narrative Radiology Service Progress Note PATIENT NAME: Kayleen Kovacs DATE OF SERVICE: July 23, 2022 TIME: [...] 2022 9:15 AM documented in this encounter [facility] 07-08-2022 History of Present illness Narrative Restricted notes were excluded Images from the original note were not included. PROGRESS NOTE PATIENT NAME: Kayleen Kovacs DATE: 07/08/2022 HD: # 12 Patient Active [...] patient can follow up STI panel in mychart DISPO: acute inpatient rehab at [facility], transport noon SUBJECTIVE Patient seen and examined at the bedside. No acute overnight events. Afebrile. VSS. Patient has no complaints at this time, very somnolent OBJECTIVE VITALS: Vitals: 07/08/22 0430 BP: 124/66 Pulse: 87 Resp: 12 Temp: 97.8 F (36.6 C) SpO2: 98% GENERAL: alert, no distress NEURO: GCS 15 HEENT: Normocephalic atraumatic (Esthela, RN as proofreader & nurse aid present to assist in [...] loss Fluid Accumulation: Moderate to Severe Extremities Needle Control Cheniller Strength: Not Performed Nutrition Assessment: Pt continues [...] Anthropometric Measures: Height: 5' 9 (175.3 cm) Central Body Weight (IBW): 145 lbs (66 kg) Admission Body Weight: 280 lb (127 kg) Current Body Weight: 280 lb (127 kg), 193.1 % IBW. Weight Source: Stated Current BMI (kg/m2): 41.3 BMI Categories: Obese Class 3 (BMI 40.0 or greater) Estimated Daily Nutrient Needs: Energy Requirements Based On: Formula Weight Used for Energy Requirements: Current Energy (kcal/day): 1016-1961 kcals/day Weight Used for Protein Requirements: Central Protein (g/day): 100 gm pro/day Method Used [...] to determine Linsey Alonzo RD, LD Contact: [phone] Images from the original note were not included. PROGRESS NOTE PATIENT NAME: Kayleen Kovacs DATE: 07/07/2022 HD: # 11 Patient Active [...] - PT/OT DISPO: acute inpatient rehab at [facility] SUBJECTIVE Patient seen and examined at the bedside. No acute overnight events. Afebrile. VSS. Patient has no complaints at this time. Awaiting precertification to his [facility] spinal rehab. Patient states she would like [...] need to be followed-up by PCP or BANANA RIPENING ROOM SUPERVISOR. Informed her that unless she belongs to [...] the investigations. Also mentioned she can use [employer] to see results of study. OBJECTIVE VITALS: Vitals: 07/07/22 0930 BP: Pulse: Resp: Temp: 97.4 F (36.3 C) SpO2: GENERAL: alert, no distress NEURO: GCS 15 HEENT: Normocephalic atraumatic (Esthela, RN as proofreader & nurse aid present to assist in [...] Note VIKKI Weiner 07/06/2022 1:00 PM Kayleen Kovacs [phone] Time spent with Patient: 16 Minutes Presenting [...] not included. PROGRESS NOTE PATIENT NAME: Kayleen Kovacs DATE: 07/06/2022 HD: # 10 Patient Active [...] pain every 4 hours Dispo: Placement, awaiting [facility] spinal rehab precert SUBJECTIVE Patient seen and examined at the bedside. No acute overnight events. Afebrile. VSS. Patient has no complaints at this time. Awaiting precertification to his [facility] spinal rehab. OBJECTIVE VITALS: Vitals: 07/06/22 0400 [...] confirmed. Fatou Hernández MD Occupational Therapy Facility/Department: [address] [place] Occupational Therapy Daily Treatment Note Name: Kayleen Kovacs : 1995 Date of Service: 07/05/2022 Discharge Recommendations: Patient would benefit from continued therapy after discharge Patient Diagnosis(es): The primary encounter diagnosis was Closed fracture of twelfth thoracic vertebra, unspecified fracture morphology, initial encounter (HCC). Diagnoses of Seizure ([facility]) and Spine disorder were also [...] CMS 0-100% Score: 50.11 (07/05/221622) ADL Inpatient CMS G-Code Modifier : CK (07/05/221622) Goals Short [...] activity with setup and mod A using sock-aid/boiler welder Short Term Goal 4: identify 2 non-pharmacological pain-relieving techniques with 1 cue Short Term Goal 5: demo mod Ax1 for all bed mobility using log roll technique PRN and bed rails PRN Therapy Time Individual Concurrent Group Co-treatment Time In 1540 Time Out 1650 Minutes 55 15 min Timed Code Treatment Minutes: 55 Minutes ROLANDA VENEGAS Physical Therapy Facility/Department: [address] [place] Daily treatment note Name: Kayleen Kovacs : 1995 Date of Service: 07/05/2022 Discharge Recommendations: Patient able to tolerate 3hrs of therapy a day, Patient would benefit from continued therapy after discharge PT Equipment Recommendations Equipment Needed: No Other: CTA Patient Diagnosis(es): The primary encounter diagnosis was Closed fracture of twelfth thoracic vertebra, unspecified fracture morphology, initial encounter ([facility]). Diagnoses of Seizure ([facility]) and Spine disorder were also pertinent to this visit. Past Medical History: has a past medical history of Anxiety, Bipolar 1 disorder ([facility]), Depressed, and Thoracic disc disorder. [...] CMS 0-100% Score: 86.62 (07/05/221616) Mobility Inpatient [facility] G-Code Modifier : CM (07/05/221616) Goals Short Term Goals Time Frame for [...] move lower extremities. Looking to go to [place] for rehab ROS: Denies fevers, chills, sweats. [...] recs-none,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 RN)1400 (Due)2200 (Due) baclofen (LIORESAL) tablet 10 mg 10 mg, Oral, 3 TIMES DAILY, First dose on Mon07/04/22 at 0015, Until Discontinued 0853 (Given - Provider: Lani Allen RN)1407 (Given - Provider: Lani Allen RN)2201 (Given - Provider: Soha Bellamy RN) 0927 (Given - Provider: Esthela Huffman RN)1600 (Given - Provider: Esthela Huffman RN)2258 (Given - Provider: Altaf Ortiz RN) 1014 (Given - Provider: Esthela Huffman RN)1530 (Due)2330 (Due) bisacodyl (DULCOLAX) suppository 10 mg [...] RN) 0928 (Given - Provider: Esthela Huffman RN)2203 (Given - Provider: Altaf Ortiz RN) 1014 (Given - Provider: Esthlea Huffman RN)2100 (Due) escitalopram (LEXAPRO) tablet 10 mg 10 mg, Oral, DAILY, First dose (after last modification) on Mon06/27/22 at 0900, Until Discontinued 0853 (Given - Provider: Lani Allen RN) 0927 (Given - Provider: Esthela Huffman RN) 1013 (Given - Provider: Esthela Huffman RN) fentaNYL [...] Huffman RN) 0043 (Given - Provider: Altaf Ortiz RN) gabapentin (NEURONTIN) capsule 900 mg 900 [...] Esthela Huffman RN)1946 (Given - Provider: Altaf Ortiz RN) 0043 (Given - Provider: Altaf Ortiz RN)0433 (Given - Provider: Altaf Ortiz RN)1014 (Given - Provider: Esthela Huffman RN)1200 (Due)1600 (Due)2000 (Due) lamoTRIgine (LAMICTAL) tablet 75 mg 75 mg, Oral, 2 times daily, First dose (after last modification) on Mon06/27/22 at 2100, Until Discontinued 08 (Given - Provider: Lani Allen RN)2201 (Given - Provider: Soha Bellamy RN) 0928 (Given - Provider: Esthela Huffman RN)220 (Given - Provider: Altaf Ortiz RN) 101 (Given - Provider: Esthela Huffman RN)2099 (Due) melatonin tablet 5 mg 5 mg, Oral, NIGHTLY, First dose (after last modification) on Judy 06/30/22 at 2100, Until Discontinued 2200 (Given - Provider: Soha Bellamy RN) 225 (Given - Provider: Altaf Ortiz RN) 2099 (Due) nicotine (NICODERM CQ) 21 [...] Provider: Lani Allen RN)2201 (Given - Provider: Soha Bellamy RN) 0927 (Given - Provider: Esthela Huffman RN)2258 (Given - Provider: Altaf Ortiz RN) 1039 (Not Given - Provider: Esthela Huffman [...] Donnell Patricia RN)0940 (Given - Provider: Lani Allen, ROJAS)1407 (Given - Provider: Lani Allen RN)1759 (Given - Provider: Lani Allen RN)2203 (Given - Provider: Soha Bellamy RN) 0204 (Given - Provider: Soha Bellamy RN)0602 (Given - Provider: Soha Bellamy RN)1011 (Given - Provider: Esthela Huffman RN)1409 (Given - Provider: Esthela Huffman RN)1804 (Given - Provider: Esthela Huffman RN)2202 (Given - Provider: Altaf Ortiz RN) 0708 (Given - Provider: Altaf Ortiz RN) oxyCODONE (ROXICODONE) immediate release tablet 10 mg 10 mg, Oral, EVERY 6 HOURS PRN, Starting on Mon07/08/22 at 0830, Until Discontinued, Pain Severe (7-10), Please start with lower dose 1235 (Given - Provider: Esthela Huffman RN) sodium chloride flush 0.9 % injection 5-40 mL 5-40 mL, IntraVENous, PRN, Starting on Mon06/26/22 at 0720, Until Discontinued, Line Care, After [...] 20 mL/lumen 0929 (Given - Provider: Esthela Huffman RN) 1015 (Given - Provider: Esthela Huffman RN) sodium chloride tablet 1 g 1 g, Oral, Once as needed, 1 dose, Starting on Judy 07/07/22 at 1108, Until Discontinued, WITH DINNER Care Teams (unrecognized sec tion and content) Customer Account Administrator Relationship Specialty Start Date End Date Wendy Sandoval MD [address] [place] [address] PCP - General Family Medicine 12/15/17 Customer Account Administrator Relationship Specialty Start Date End Date Lamb, Yaneli, CLOTH DOUBLING MACHINE OPERATOR PCP - General 12/08/22 Customer Account Administrator Relationship Specialty Start Date End Date Lamb, Yaneli, CLOTH DOUBLING MACHINE OPERATOR PCP - General 12/08/22 Customer Account Administrator Relationship Specialty Start Date End Date Lamb, Yaneli, CLOTH DOUBLING MACHINE OPERATOR PCP - General 12/08/22 Customer Account Administrator Relationship Specialty Start Date End Date Lamb, Yaneli, CLOTH DOUBLING MACHINE OPERATOR PCP - General 12/08/22 Customer Account Administrator Relationship Specialty Start Date End Date Lamb, Yaneli, CLOTH DOUBLING MACHINE OPERATOR PCP - General 12/08/22 Customer Account Administrator Relationship Specialty Start Date End Date GustavoEarline porter L, PIPE ORGAN INSTALLER.PLATFORM ARCHITECT [address] [place] [address] 07/12/23 Customer Account Administrator Relationship Specialty Start Date End Date GustavoEarline porter L, PIPE ORGAN INSTALLER.PLATFORM ARCHITECT [address] [place], [place] [phone] 07/12/23 Customer Account Administrator Relationship Specialty Start Date End Date Lamb, Yaneli, CLOTH DOUBLING MACHINE OPERATOR PCP - General 12/08/22 Customer Account Administrator Relationship Specialty Start Date End Date Gustavo, Earline L, PIPE ORGAN INSTALLER.PLATFORM ARCHITECT [address] [place], [place] [phone] 07/12/23 Customer Account Administrator Relationship Specialty Start Date End Date Lamb, Yaneli, CLOTH DOUBLING MACHINE OPERATOR PCP - General 12/08/22 Customer Account Administrator Relationship Specialty Start Date End Date GustavoEarline porter L, PIPE ORGAN INSTALLER.PLATFORM ARCHITECT [address] [place], [place] [phone] 07/12/23 Customer Account Administrator Relationship Specialty Start Date End Date Earline Khan, PIPE ORGAN INSTALLER.PLATFORM ARCHITECT [address] [place] [phone] 07/12/23 Customer Account Administrator Relationship Specialty Start Date End Date Earline Khan, PIPE ORGAN INSTALLER.PLATFORM ARCHITECT [address] [place] [address] 07/12/23 Customer Account Administrator Relationship Specialty Start Date End Date Earline Khan, PIPE ORGAN INSTALLER.PLATFORM ARCHITECT [address] [place] [address] 07/12/23 Customer Account Administrator Relationship Specialty Start Date End Date Earline Khan, PIPE ORGAN INSTALLER.PLATFORM ARCHITECT [address] [place], [place] [phone] 07/12/23 Customer Account Administrator Relationship Specialty Start Date End Date Yaneli Lamb LPN PCP - General 12/08/22 Customer Account Administrator Relationship Specialty Start Date End Date Earline Khan, PIPE ORGAN INSTALLER.PLATFORM ARCHITECT [address] [place] [address] [phone] 07/12/23 Customer Account Administrator Relationship Specialty Start Date End Date Earline Khan, PIPE ORGAN INSTALLER.PLATFORM ARCHITECT [address] [place] [address], [place] [phone] 07/12/23 Customer Account Administrator Relationship Specialty Start Date End Date Earline Khan, PIPE ORGAN INSTALLER.PLATFORM ARCHITECT [address] [place] [address] [phone] 07/12/23 Customer Account Administrator Relationship Specialty Start Date End Date Gustavo, Earline Janet, PIPE ORGAN INSTALLER.PLATFORM ARCHITECT [address] [place] [address] [phone] 07/12/23 Customer Account Administrator Relationship Specialty Start Date End Date Earline Khan, PIPE ORGAN INSTALLER.PLATFORM ARCHITECT [address] [place] [address] [phone] 07/12/23 Customer Account Administrator Relationship Specialty Start Date End Date Earline Khan PIPE ORGAN INSTALLER.PLATFORM ARCHITECT [address] [place] [address] [phone] 07/12/23 Customer Account Administrator Relationship Specialty Start Date End Date Earline Khan, PIPE ORGAN INSTALLER.PLATFORM ARCHITECT [address] [place] [phone] 07/12/23 [place] [address] [address] Pain Management 02/06/24 [place] [address] [place] [address] Pain Management 02/06/24 Customer Account Administrator Relationship Specialty Start Date End Date Earline Khan, PIPE ORGAN INSTALLER.PLATFORM ARCHITECT [address] [place] [phone] 07/12/23 [place] [address] [address] Pain Management 02/06/24 [place] [address] [place] [address] Pain Management 02/06/24 Customer Account Administrator Relationship Specialty Start Date End Date Earline Khan APRN.PLATFORM ARCHITECT [address] [place] [phone] 07/12/23 [place] [address] [address] Pain Management 02/06/24 [place] [address] [place] [address] Pain Management 02/06/24 Customer Account Administrator Relationship Specialty Start Date End Date Wendy Sandoval MD [address] [place] [address] [place] [address] PCP - General Family Medicine 12/15/17 Customer Account Administrator Relationship Specialty Start Date End Date Earline Khan, PIPE ORGAN INSTALLER.PLATFORM ARCHITECT [address] [place], [place] [phone] 07/12/23 [place] [address] [address] Pain Management 02/06/24 [place] [address] [place] [address] Pain Management 02/06/24 Ordered Prescriptions (unrec ognized section and content) Prescription Sig Dispensed Refills Start Date End Da te sennosides-docusate sodium (SENOKOT-S) 8.6-50 MG tablet Take 2 tablets by mouth daily 60 tablet 0 07/06/2022 oxyCODONE (OXY-IR) 10 MG immediate release tabletIndications:Cl osed fracture of twelfth thoracic vertebra, unspecified fracture morphology, initial encounter ([facility]) Take 1 tablet by mouth every 6 [...] or prosecute any alcohol or drug abuse patient.[facility] Hospital[facility] the event this information is protected by the Federal Confidentiality of Alcohol and Drug Abuse Patient Records regulations: The Federal rules restrict any use of the information to criminally investigate or prosecute any alcohol or drug abuse patient.[facility] HospitalIn the event this information is protected by the Federal Confidentiality of Alcohol and Drug Abuse Patient Records regulations: The Federal rules restrict any use of the information to criminally investigate or prosecute any alcohol or drug abuse patient.[facility] HospitalIn the event this information is protected by the Federal Confidentiality of Alcohol and Drug Abuse Patient Records regulations: The Federal rules restrict any use of the information to criminally investigate or prosecute any alcohol or drug abuse patient.[facility] HospitalIn the event this information is protected by the Federal Confidentiality of Alcohol and Drug Abuse Patient Records regulations: The Federal rules restrict any use of the information to criminally investigate or prosecute any alcohol or drug abuse patient.[facility] HospitalIn the event this information is protected by the Federal Confidentiality of Alcohol and Drug Abuse Patient Records regulations: The Federal rules restrict any use of the information to criminally investigate or prosecute any alcohol or drug abuse patient.[facility] HospitalIn the event this information is protected by the Federal Confidentiality of Alcohol and Drug Abuse Patient Records regulations: The Federal rules restrict any use of the information to criminally investigate or prosecute any alcohol or drug abuse patient.[facility] HospitalIn the event this information is protected by the Federal Confidentiality of Alcohol and Drug Abuse Patient Records regulations: The Federal rules restrict any use of the information to criminally investigate or prosecute any alcohol or drug abuse patient.[facility] HospitalIn the event this information is protected by the Federal Confidentiality of Alcohol and Drug Abuse Patient Records regulations: The Federal rules restrict any use of the information to criminally investigate or prosecute any alcohol or drug abuse patient.[facility] HospitalIn the event this information is protected by the Federal Confidentiality of Alcohol and Drug Abuse Patient Records regulations: The Federal rules restrict any use of the information to criminally investigate or prosecute any alcohol or drug abuse patient.[facility] HospitalIn the event this information is protected by the Federal Confidentiality of Alcohol and Drug Abuse Patient Records regulations: The Federal rules restrict any use of the information to criminally investigate or prosecute any alcohol or drug abuse patient.[facility] HospitalIn the event this information is protected by the Federal Confidentiality of Alcohol and Drug Abuse Patient Records regulations: The Federal rules restrict any use of the information to criminally investigate or prosecute any alcohol or drug abuse patient.[facility] HospitalIn the event this information is protected by the Federal Confidentiality of Alcohol and Drug Abuse Patient Records regulations: The Federal rules restrict any use of the information to criminally investigate or prosecute any alcohol or drug abuse patient.[facility] HospitalIn the event this information is protected by the Federal Confidentiality of Alcohol and Drug Abuse Patient Records regulations: The Federal rules restrict any use of the information to criminally investigate or prosecute any alcohol or drug abuse patient.[facility] HospitalIn the event this information is protected by the Federal Confidentiality of Alcohol and Drug Abuse Patient Records regulations: The Federal rules restrict any use of the information to criminally investigate or prosecute any alcohol or drug abuse patient.[facility] HospitalIn the event this information is protected by the Federal Confidentiality of Alcohol and Drug Abuse Patient Records regulations: The Federal rules restrict any use of the information to criminally investigate or prosecute any alcohol or drug abuse patient.[facility] HospitalIn the event this information is protected by the Federal Confidentiality of Alcohol and Drug Abuse Patient Records regulations: The Federal rules restrict any use of the information to criminally investigate or prosecute any alcohol or drug abuse patient.[facility] HospitalIn the event this information is protected by the Federal Confidentiality of Alcohol and Drug Abuse Patient Records regulations: The Federal rules restrict any use of the information to criminally investigate or prosecute any alcohol or drug abuse patient.[facility] HospitalIn the event this information is protected by the Federal Confidentiality of Alcohol and Drug Abuse Patient Records regulations: The Federal rules restrict any use of the information to criminally investigate or prosecute any alcohol or drug abuse patient.[facility] HospitalIn the event this information is protected by the Federal Confidentiality of Alcohol and Drug Abuse Patient Records regulations: The Federal rules restrict any use of the information to criminally investigate or prosecute any alcohol or drug abuse patient.[facility] HospitalIn the event this information is protected by the Federal Confidentiality of Alcohol and Drug Abuse Patient Records regulations: The Federal rules restrict any use of the information to criminally investigate or prosecute any alcohol or drug abuse patient.[facility] HospitalIn the event this information is protected by the Federal Confidentiality of Alcohol and Drug Abuse Patient Records regulations: The Federal rules restrict any use of the information to criminally investigate or prosecute any alcohol or drug abuse patient.[facility] FOR RECORDS PERTAINING TO PATIENTS WHO ARE [...] BE BASED ON THE PRIMARY CLINICAL RECORDS. [facility] [employer] [facility]. provides no warranty or guarantee of the accuracy or completeness of information in this document.
[2024-03-03 19:06] VITALS: PULSE 80; O2SAT 99
--- NOTE | 2024-03-03 19:10 | PC.NURSE ---
Fall one week ago with injury to left knee, had previous fall with injury to left knee, pain worsening since last week fall. Skin to left knee/leg pink and warm, no redness or swelling noted. Ice applied to site.
--- NOTE | 2024-03-03 19:11 | XR_ITS ---
The [address] [address] Patient Name: HUY KOVACS MRN: [id number] date: 1995 Sex: F Assigned Patient Location: ER Current Patient Location: ER Accession/Order Number: [id number] Exam Date: 03/03/2024 19:27 Report Date: 03/03/2024 21:40 At the request of: ADENIKE SCOTT Procedure: XR knee LT 4V EXAM: XR knee LT 4V HISTORY: patellar fracture COMPARISON: Left knee x-ray dated 01/02/2024. TECHNIQUE: 3 views of the left knee FINDINGS: Healing/subacute patellar fracture is seen. Stable appearing heterogeneous appearance of the distal femur and proximal tibia is seen. No acute fracture seen. Joint alignment is normal. XR/XR knee LT 4V IMPRESSION: Healing/subacute patellar fracture is seen. Electronically authenticated by: INDIGO MERCEDES Date: 03/03/2024 21:40
[2024-03-03 19:12] VITALS: BP 134/98
--- NOTE | 2024-03-03 20:42 | ED_ITS ---
HPI HPI - General Adult General Chief complaint: Extremity Injury, Lower Stated complaint: FALL Time Seen by Provider: 03/03/24 19:06 Source: patient Mode of arrival: walk-in History of Present Illness HPI narrative: 28-year-old female to the emergency department with chief complaint of knee pain. Patient reports that a week ago she had a seizure and fell onto her knee. She had already fractured this knee and is currently in a brace. She reports an increase in pain after the fall. She follows with an orthopedic surgeon in [place]. She wants an x-ray tonight to see if things got displaced. Related Data Allergies Allergy/AdvReac Type Severity Reaction Status Date / Time adhesive tape Allergy Severe Blister Verified 03/03/24 18:15 hydroxyzine Allergy Severe Seizure Verified 03/03/24 18:14 Opioid HPI Opioid Management Most Recent Opioid Data: No Data to Display Review of Systems ROS Status of ROS 10 or more systems reviewed and unremark able except as noted in history and below Exam Narrative Exam Narrative: VITALS: I have reviewed the triage vital signs. GENERAL: Well developed, well appearing adult in no acute distress. NEURO: Alert and oriented. Moves all extremities. Face is symmetric and expressive. EYES: PERRL. No scleral icterus or conjunctival injection. No discharge. HENT: Normocephalic, atraumatic. Hearing is grossly intact. Nares grossly patent and without discharge. Mucous membranes moist. NECK: No JVD. Patient moves neck without restriction. CARDIO: Rhythm regular. Normal rate. No murmur, rub, or gallop. Pulses equal bilaterally in the upper and lower extremity. No lower extremity edema. PULM: Lungs clear to auscultation in all meyer. No wheezes, rales, or rhonchi. No conversational dyspnea. No splinting, stridor, or accessory muscle use. GI/: Abdomen is soft and non-tender. Normoactive bowel sounds. EXTREMITIES: Left knee tenderness, no deformity. Limb is similar color and temperature to the touch lower extremity. DP and PT pulse intact. Sensation intact SKIN: Warm and dry. Normal turgor. No rash or lesions appreciated. PSYCH: Mood, affect, and interaction is appropriate to the setting. Constitutional Vital Signs, click to edit/add: Last Vital Signs Temp 98.9 F 03/03/24 18:04 Pulse 80 03/03/24 19:06 Resp 18 03/03/24 19:06 BP 134/98 H 03/03/24 19:12 Pulse Ox 99 03/03/24 19:06 O2 Del Method Room Air 03/03/24 19:06 Course Vital Signs Vital signs: Vital Signs Temperature 98.9 F 03/03/24 18:04 Pulse Rate 89 03/03/24 18:04 Respiratory Rate 16 03/03/24 18:04 Blood Pressure 134/84 03/03/24 18:04 Pulse Oximetry 98 03/03/24 18:04 Oxygen Delivery Method Room Air 03/03/24 18:04 Temperature 98.9 F 03/03/24 18:04 Pulse Rate 80 03/03/24 19:06 Respiratory Rate 18 03/03/24 19:06 Blood Pressure 134/98 H 03/03/24 19:12 Pulse Oximetry 99 03/03/24 19:06 Oxygen Delivery Method Room Air 03/03/24 19:06 Medical Decision Making MDM Narrative Medical decision making narrative: 28-year-old female to the emergency department with chief complaint of knee pain after a fall a week ago. Had previous fracture to patella. Currently wearing a brace. Limb is neurovascular intact. X-rays ordered. She declines pain medication. While waiting for radiologist interpretation of her x-ray the patient decided that she would instead like an MRI. This is not offered to this facility at this time. Patient decided to leave at that point before treatment was completed. Discharge Plan Discharge Stand Alone Forms: Portal Instructions Chief Complaint: Extremity Injury, Lower Patient Disposition: Left Against Medical Advice Print Language: Kazakh Referrals: EARLINE CHEN [Primary Care Provider] - 1 week Discharge Date/Time: 03/03/24 21:51
== END 2024-03-03 21:51 | disposition left against medical advice (07) ==
PROVIDERS: Emergency Provider Student in an Organized Health Care Education/Training Program; PCP Nurse Practitioner
DX: S89.92XA Unspecified injury of left lower leg, initial encounter (principal); Z53.29 Procedure and treatment not carried out because of patient's decision for other reasons; W19.XXXA Unspecified fall, initial encounter
CPT/HCPCS: 73564; 99283

== ENCOUNTER 2024-12-11 15:33 | Outpatient (OUT) | payer MEDICARE, SELFPAY ==
--- NOTE | 2024-12-11 | XR_ITS ---
[facility] [place] [address] Patient Name: HUY KOVACS MRN: [id number] date: 1995 Sex: F Assigned Patient Location: [facility] Current Patient Location: [facility] Accession/Order Number: [id number] Exam Date: 12/11/2024 20:14 Report Date: 12/11/2024 20:16 At the request of: EARLINE CHEN Procedure: XR ankle LT min 3V 3 views left ankle plain film COMPARISON: None HISTORY: Fell injuring left ankle. ACUTE FINDINGS: Nondisplaced oblique fracture of the distal metaphysis of the tibia. DEGENERATIVE CHANGE: Unremarkable SOFT TISSUE FINDINGS: Unremarkable JOINT EFFUSION: None POSTOP CHANGES: None BONE MINERALIZATION: Diffuse osteopenia XR/XR ankle LT min 3V IMPRESSION: Nondisplaced oblique fracture distal metaphysis of the tibia. Diffuse osteopenia Impression dictated by: Kehinde Floyd M.D. 12/11/2024 8:16 PM Dictation Location: [place] [address] Electronically authenticated by: [id number] Y Date: 12/11/2024 20:16
== END 2024-12-11 15:34 | disposition home or self-care (01) ==
PROVIDERS: PCP Nurse Practitioner; Visit Provider Nurse Practitioner
DX: S99.912A Unspecified injury of left ankle, initial encounter (principal); S89.102A Unspecified physeal fracture of lower end of left tibia, initial encounter for closed fracture
CPT/HCPCS: 73610

== ENCOUNTER 2025-02-14 18:06 | Emergency (ER) | payer MEDICARE, SELFPAY ==
[2025-02-14 18:09] VITALS: BP 135/89; PULSE 95; TEMP 36.9; O2SAT 95; BMI 31.6
--- OUTSIDE RECORDS SUMMARY | 2025-02-14 18:18 | XMS_ITS | Encounter Summary ---
Author Organization [facility] Address [address] [place] [address] Care Team Providers Care Grid Casting Machine Operator Helper Name Role Phone BillAlicia Janetrut POTTS.CLIENT DEVELOPMENT CONSULTANT Unavailable Jaun Mcgovern MD Unavailable Jaun Mcgovern MD Unavailable Source Comments In the event this information is protected by the Federal Confidentiality of Alcohol and Drug AbusePatient Records regulations: The Federal rules restrict any use of the information to criminally investigate or prosecute any alcohol or drug abuse patient.[facility] Encounter Details Date Type Department Care Team (Late st Contact Info) Description 05/11/2024 Patient Msg Urology [address] [address] Dorcas Menard MD [address] [place] [address] Appointment Cancellation Request Social History Tobacco Use Types Packs/Day Years Used Date Smoking Tobacco: Every Day Smokeless Tobacco: Never Comments:VAPES PHQ-2 Answer Date Recorded PHQ-2 score 4 04/07/2024 Area Deprivation Index Answer Date Aguilar rded National Score (1-100), lower number is lower ri sk 91 07/28/2023 State Score (1-10), lower number is lower risk 9 07/28/2023 Data from: https://www.neighborhoodatlas.medicine.[facility].edu/. Last address used for calculation [address] 07/28/2023 Comments Unknown Sex and Gender Information Value Date Recorded Sex Assigned at Female 07/21/2023 10:25 AM EST Legal Sex Female 4:15 PM EST Gender Identity Female 07/21/2023 10:25 AM EST Sexual Orientation Not on file documented as of this encounter Plan of Treatment Upcoming Encounters Date Type Department Care Team (Late st Contact Info) Description 02/21/2025 11:00 AM EDT Office Visit Rehab Medicine [address] [place] [phone] Dakota Benedict MD [address] [place] [address] 1 mnth follow up documented as of this encounter Visit Diagnoses Not on filedocumented in this encounter Care Teams Grid Casting Machine Operator Helper Relationship Specialty Start Date End Date Alicia Khan, INFORMATION TECHNOLOGY DATA ANALYST.CLIENT DEVELOPMENT CONSULTANT [address] [place] [address] 07/12/23 [place] [address] [place] [address] Pain Management 02/06/24 [place] [address] [place] [address] Pain Management 02/06/24 documented as of this encounter
--- OUTSIDE RECORDS SUMMARY | 2025-02-14 18:18 | XMS_ITS | Encounter Summary ---
Author Organization [facility] Address [address] [place] [address] Care Team Providers Care Telephone Information Supervisor Name Role Phone Alicia Khan APRN.ETHYLENE COMPRESSOR OPERATOR Unavailable Jaun Mcgovern MD Unavailable Jaun Mcgovern MD Unavailable Source Comments In the event this information is protected by the Federal Confidentiality of Alcohol and Drug AbusePatient Records regulations: The Federal rules restrict any use of the information to criminally investigate or prosecute any alcohol or drug abuse patient.[facility] Encounter Details Date Type Department Care Team ([facility] st Contact Info) Description 05/21/2024 Patient Msg [facility] [address] Provider, Ccf Phone Call follow up Social History Tobacco Use Types Packs/Day Years Used Date Smoking Tobacco: Every Day Smokeless Tobacco: Never Comments:VAPES PHQ-2 Answer Date Recorded PHQ-2 score 4 04/07/2024 Area Deprivation Index Answer Date Aguilar rded National Score (1-100), lower number is lower ri sk 91 07/28/2023 State Score (1-10), lower number is lower risk 9 07/28/2023 Data from: https://www.neighborhoodatlas.medicine.[facility].edu/. Last address used for calculation [address] [...] AM EDT Office Visit Rehab Medicine [address] [place] [address] NemunaDakota be MD [address] [place] [address] 1 mnth follow up documented as of this encounter Visit Diagnoses Not on filedocumented in this encounter Care Teams Telephone Information Supervisor Relationship Specialty Start Date End Date Alicia Khan, MEDICAL OFFICER.ETHYLENE COMPRESSOR OPERATOR [address] [place] [address] 07/12/23 [place] [address] [id number] Pain Management 02/06/24 [place] [address] [place] [address] Pain Management 02/06/24 documented as of this encounter
--- OUTSIDE RECORDS SUMMARY | 2025-02-14 18:18 | XMS_ITS | Encounter Summary ---
Author Organization [facility] Address [address] [place] [address] Care Team Providers Care Clip Loading Machine Adjuster Name Role Phone Karen Patel MD Primary Care Provider [phone] Yaneli Rodriguez Unavailable [phone] Alicia Khan NP Unavailable Reason for Visit * Reason Comments Med Refill Encounter Details Date Type Department Care Team (Late st Contact Info) Description 06/20/2023 Refill [facility] [address] [place] [phone] Yaneli Rodriguez PA [address] [place] [address] Neuropathic pain; Neuropathy Social History Tobacco Use Types Packs/Day Years Used Date Smoking Tobacco: Every Day Cigarettes Smokeless Tobacco: Never Comments:Smokes 5 or less va ping Alcohol Use Standard Drinks/Week Comments Never 0 (1 standard drink = 0.6 oz pur e alcohol) Humiliation, Afraid, Rape, and Kick questionnair e Answer Date Recorded Within the last year, have y ou been afraid of your partner or ex-partner? No 01/16/2023 Within the last year, have y ou been humiliated or emotionally abused in other ways by your partner or ex-partner? No Within the last year, have y ou been kicked, hit, slapped, or otherwise physically hurt by your partner or ex-partner? No 01/16/2023 Within the last year, have y ou been raped or forced to have any kind of sexual activity by your partner or ex-partner? No 01/16/2023 Social Connection and Isolat ion Panel [NHANES] Answer Date Recorded In a typical week, how many times do you talk on the phone with family, friends, or neighbors? More than three times a week 01/16/2023 How often do you get togethe r with friends or relatives? Once a week 01/16/2023 How often do you attend chur or buddhism services? Never 01/16/2023 Do you belong to any clubs o r organizations such as lutheran groups, unions, fraternal or athletic groups, or school groups? Yes 01/16/2023 How often do you attend meet ings of the clubs or organizations you belong to? Never 01/16/2023 Are you , , di vorced, , never , or living with a partner? 01/16/2023 AUDIT-C Answer Date Recorded Q1: How often do you have a drink containing alcohol? Never 01/16/2023 Q2: How many drinks containi ng alcohol do you have on a typical day when you are drinking? Patient does not drink Q3: How often do you have si x or more drinks on one occasion? Never 01/16/2023 Overall Financial Resource Strain (CARDIA) Answe r Date Recorded How hard is it for you to pa y for the very basics like food, housing, medical care, and heating? Not very hard 01/16/2023 PHQ-2 Answer Date Recorded Patient Health Questionnaire-2 Score 0 01/19/2023 [facility] - Occupational Stress Questionnaire Answer Date Recorded Do you feel stress - tense, restless, nervous, or anxious, or unable to sleep at night because your mind is troubled all the time - these days? Very much 01/16/2023 Exercise Vital Sign Answer Date Recorde d On average, how many days pe r week do you engage in moderate to strenuous exercise (like a brisk walk)? 0 days 01/19/2023 On average, how many minutes do you engage in exercise at this level? 0 min 01/19/2023 Hunger Vital Sign Answer Date Recorded Within the past 12 months, y ou worried that your food would run out before you got the money to buy more. Never true 01/17/20 23 Within the past 12 months, t he food you bought just didn't last and you didn't have money to get more. Never true 01/16/2023 PRAPARE - Transportation Answer Date Re corded In the past 12 months, has l ack of transportation kept you from medical appointments or from getting medications? No 12/31 In the past 12 months, has l ack of transportation kept you from meetings, work, or from getting things needed for daily living? No 01/16/2023 Housing Stability Vital Sign Answer Mark Anthony e Recorded In the last 12 months, was t here a time when you were not able to pay the mortgage or rent on time? No 01/16/2023 In the last 12 months, how many places have you lived? 1 01/16/2023 In the last 12 months, was t here a time when you did not have a steady place to sleep or slept in a snf (including now)? No 01/16/2023 Housing Stability Vital Sign Answer Mark Anthony e Recorded In the last 12 months, was t here a time when you were not able to pay the mortgage or rent on time? No 01/16/2023 Number of Times Moved in the Last Year Not on fi le 01/16/2023 Homeless in the Last Year Not on file 2022 Comments Unknown Sex and Gender Information Value Date Recorded Sex Assigned at Female 01/16/2023 8:47 AM EDT Legal Sex Female 10:58 PM EDT Gender Identity Female 01/16/2023 8:47 AM EDT Sexual Orientation Not on file documented as of this encounter Miscellaneous Notes * Telephone Encounter - MARISEL Schaffer - 06/20/2023 10:06 AM EST Please call [facility] and let them know Ali is not longer patient at our practice. documented in this encounter Plan of Treatment Not on file documented as of this encounter Visit Diagnoses Diagnosis Neuropathic pain Neuropathy Mononeuritis of unspecified site documented in this encounter Care Teams Clip Loading Machine Adjuster Relationship Specialty Start Date End Date Karen Patel MD [address] [place] [address] PCP - General Family Medicine 12/01/22 01/23/24 Yaneli Rodriguez PA [address] [place] [address] PCP - [facility] 12/31/22 Alicia Khan NP [address] [place] [address] Referring Physician Family Medicine 05/10/24 documented as of this encounter
--- OUTSIDE RECORDS SUMMARY | 2025-02-14 18:18 | XMS_ITS | Encounter Summary ---
Author Organization [facility] Address [address] [place] [address] Care Team Providers Care Automobile Painter Name Role Phone Alicia Khan APRN.EXCEPTIONAL STUDENT EDUCATION AIDE Unavailable Jaun Mcgovern MD Unavailable Jaun Mcgovern MD Unavailable Source Comments In the event this information is protected by the Federal Confidentiality of Alcohol and Drug AbusePatient Records regulations: The Federal rules restrict any use of the information to criminally investigate or prosecute any alcohol or drug abuse patient.[facility] Encounter Details Date Type Department Care Team (Late st Contact Info) Description 08/14/2024 Get Medical Advice Neurology [address] [place], [place] [id number] Amanda Horta PA-C [address] [place] [address] Seizure Social History Tobacco Use Types Packs/Day Years Used Date Smoking Tobacco: Every Day Smokeless Tobacco: Never Comments:VAPES PHQ-2 Answer Date Recorded PHQ-2 score 2 07/18/2024 Area Deprivation Index Answer Date Aguilar rded National Score (1-100), lower number is lower ri sk 91 07/28/2023 State Score (1-10), lower number is lower risk 9 07/28/2023 Data from: https://www.neighborhoodatlas.medicine.[facility].edu/. Last address used for calculation [address] 07/28/2023 Comments Unknown Sex and Gender Information Value Date Recorded Sex Assigned at Female 07/21/2023 10:25 AM EST Legal Sex Female 4:15 PM EST Gender Identity Female 07/21/2023 10:25 AM EST Sexual Orientation Not on file documented as of this encounter Miscellaneous Notes * Telephone Encounter - Malena Long PA-C - 08/16/2024 9:46 AM EST Please route for review when patient responds to JW Player message. Malena Long PA-C documented in this encounter Plan of Treatment Upcoming Encounters Date Type Department Care Team (Late st Contact Info) Description 02/21/2025 11:00 AM EDT Office Visit Rehab Medicine [address] [place] [address] Dakota Benedict MD [address] [place] [address] 1 mnth follow up documented as of this encounter Visit Diagnoses Not on filedocumented in this encounter Care Teams Automobile Painter Relationship Specialty Start Date End Date Alicia Khan APRN.EXCEPTIONAL STUDENT EDUCATION AIDE [address] [place] [address] 07/12/23 [place] [address] [address] Pain Management 02/06/24 [place] [address] [place] [address] Pain Management 02/06/24 documented as of this encounter
--- OUTSIDE RECORDS SUMMARY | 2025-02-14 18:18 | XMS_ITS | Encounter Summary ---
Author Organization [facility] Address [address] [place] [address] Care Team Providers Care Middle School Guidance Counselor Name Role Phone Alicia Khan APRN.TELEVISION REPAIRMAN Unavailable Jaun Mcgovern MD Unavailable Jaun Mcgovern MD Unavailable Source Comments In the event this information is protected by the Federal Confidentiality of Alcohol and Drug AbusePatient Records regulations: The Federal rules restrict any use of the information to criminally investigate or prosecute any alcohol or drug abuse patient.[facility] Encounter Details Date Type Department Care Team (Late st Contact Info) Description 06/30/2024 Patient Msg Medical Records [address] [place] [address] Provider, Ccf Questionnaire Submission Social History Tobacco Use Types Packs/Day Years Used Date Smoking Tobacco: Every Day Smokeless Tobacco: Never Comments:VAPES PHQ-2 Answer Date Recorded PHQ-2 score 4 04/07/2024 Area Deprivation Index Answer Date Aguilar rded National Score (1-100), lower number is lower ri sk 91 07/28/2023 State Score (1-10), lower number is lower risk 9 07/28/2023 Data from: https://www.neighborhoodatlas.medicine.[facility]/. Last address used for calculation [address] [...] AM EDT Office Visit Rehab Medicine [address] [place] [phone] NemunaDakota be MD [address] [place] [address] 1 mnth follow up documented as of this encounter Visit Diagnoses Not on filedocumented in this encounter Care Teams Middle School Guidance Counselor Relationship Specialty Start Date End Date Alicia Khan, NOC ANALYST.TELEVISION REPAIRMAN [address] [place] [address] 07/12/23 [place] [address] [address] [address] Pain Management 02/06/24 [place] [address] [place] [address] Pain Management 02/06/24 documented as of this encounter
--- OUTSIDE RECORDS SUMMARY | 2025-02-14 18:18 | XMS_ITS | Encounter Summary ---
Author Organization [facility] Address [facility] [place] [address] Care Team Providers Care Material Attendant Name Role Phone BillAlicia Janetrut POTTS.DEVELOPER TRADING SYSTEMS Unavailable Jaun Mcgovern MD Unavailable Jaun Mcgovern MD Unavailable Source Comments In the event this information is protected by the Federal Confidentiality of Alcohol and Drug AbusePatient Records regulations: The Federal rules restrict any use of the information to criminally investigate or prosecute any alcohol or drug abuse patient.[facility] Encounter Details Date Type Department Care Team (Late st Contact Info) Description 07/14/2022 Lab Requisition [facility] [address] [place] [address] Edwar Machado MD [address] [place] [address] Social History Tobacco Use Types Packs/Day Years Used Date Smoking Tobacco: Never Assessed Comments Unknown Sex and Gender Information Value [...] AM EDT Office Visit Rehab Medicine [address] [place] [phone] Nemunaitis, Dakota Moore MD [address] [place] [id number] 1 mnth follow up documented as of this encounter Procedures Procedure Name Priority Date/Time Associated Diagnosis Comments URINALYSIS, WITH MICROSCOPIC Routine 07/14/2022 12:20 PM EST BACTERIAL CULTURE, URINE Routine 07/14/2022 12:20 PM EST documented in this encounter Results * (ABNORMAL) URINE CULTURE (07/14/2022 12:20 PM EST) Culture, Urine <10,000 CFU/ml Lactose negative gram negative bacilli(A) 07/15/2022 5:27 PM EST [facility] Comment:Insignificant colony count. No further workup. Urine URINE SPECIMEN OBTAINED BY CLEAN CATCH PROCEDURE / Unknown 07/14/2022 12:20 PM EST 07/14/2022 3:47 PM EST us Edwar Machado MD MICROBIOLOGY Final Result [facility] [address] [facility] [place] [id number], * (ABNORMAL) URINALYSIS, WITH MICROSCOPIC (07/14/2022 12:20 PM EST) Color Yellow Yellow 07/14/2022 4:18 PM EST [facility] Clarity Clear Clear 07/14/2022 4:18 PM EST [facility] Glucose, Urine Negative Negative 07/14/2022 4:18 PM EST [facility] Bilirubin, Urine Negative Negative 07/14/19 4:18 PM EST [facility] Ketones, Urine Negative Negative 07/14/2022 4:18 PM EST [facility] Specific [place], Ur 1.020 1.005 - 1.030 07/14/2022 4:18 PM EST [facility] Hemoglobin/Blood ,Ur Negative Negative, Trace 07/14/2022 4:18 PM EST [facility] pH, Urine 6.5 5.0 - 8.0 07/14/2022 4:18 PM EST [facility] Protein, Urine Negative Negative 07/14/2022 4:18 PM EST [facility] Urobilinogen 0.2 EU/dL 0.2-1.0 EU/dL 07/14/2022 4:18 PM EST [facility] Nitrites Negative Negative 07/14/2022 4:18 PM EST [facility] Leuk Esterase Negative Negative 07/14/2022 4:18 PM EST [facility] WBC, Urine 0-5 /HPF 0-5 /HPF 07/14/2022 4:18 PM EST [facility] RBC, Urine 0-3 /HPF 0-3 /HPF 07/14/2022 4:18 PM EST [facility] Bacteria Few(A) None Seen /HPF 07/14/2022 4:18 PM EST [facility] Squamous Epithelial Cells Many /HPF 07/14/2022 4:18 PM EST [facility] Urine URINE SPECIMEN OBTAINED BY CLEAN CATCH PROCEDURE / Unknown 07/14/2022 12:20 PM EST 07/14/2022 3:47 PM EST us Edwar Machado MD LABORATORY Final Result Performing Organization Address City/State/[facility] Co de Phone Number [facility] [address] [place], [place] [phone] [place] [address] documented in this encounter Visit Diagnoses Not on filedocumented in this encounter Care Teams Material Attendant Relationship Specialty Start Date End Date Alicia Khan APRN.DEVELOPER TRADING SYSTEMS [address] [place] [address] 07/12/23 [place] [address] [address] [address] Pain Management 02/06/24 [place] [address] [place] [address] Pain Management 02/06/24 documented as of this encounter
--- OUTSIDE RECORDS SUMMARY | 2025-02-14 18:18 | XMS_ITS | Encounter Summary ---
Author Organization [facility] Address [address] [place] [address] Care Team Providers Care Precision Instrument And Tool Maker Name Role Phone Alicia Khan APRN.NETWORK SUPPORT MANAGER Unavailable [phone] Jaun Mcgovern MD Unavailable Jaun Mcgovern MD Unavailable Source Comments In the event this information is protected by the Federal Confidentiality of Alcohol and Drug AbusePatient Records regulations: The Federal rules restrict any use of the information to criminally investigate or prosecute any alcohol or drug abuse patient.[facility] Encounter Details Date Type Department Care Team (Late st Contact Info) Description 10/02/2023 Patient Msg [facility] [place] [address] [place], [place] [phone] Provider, Ccf Please schedule your Physical Medicine and Rehab Appointment Social History Tobacco Use Types Packs/Day Years Used Date Smoking Tobacco: Never Assessed PHQ-2 Answer Date Recorded PHQ-2 score 4 07/21/2023 Area Deprivation Index Answer Date Aguilar rded National Score (1-100), lower number is lower ri sk 91 07/28/2023 State Score (1-10), lower number is lower risk 9 07/28/2023 Data from: https://www.neighborhoodatlas.[facility]/. Last address used for calculation [address] [...] AM EDT Office Visit Rehab Medicine [address] [place] [phone] NemDakota plunkett MD [address] [place] [address] 1 mnth follow up documented as of this encounter Visit Diagnoses Not on filedocumented in this encounter Care Teams Precision Instrument And Tool Maker Relationship Specialty Start Date End Date Alicia Khan, FACSIMILE OPERATOR.NETWORK SUPPORT MANAGER [address] [place] [address] 07/12/23 [place] [address] [address] [address] Pain Management 02/06/24 [place] [address] [place] [address] Pain Management 02/06/24 documented as of this encounter
--- OUTSIDE RECORDS SUMMARY | 2025-02-14 18:18 | XMS_ITS | Encounter Summary ---
Author Organization [facility] Address [facility] [place] [address] Care Team Providers Care Culinary Worker Name Role Phone BillAlicia Janetrut POTTS.VOLUNTEER SERVICES COORDINATOR Unavailable Jaun Mcgovern MD Unavailable Jaun Mcgovern MD Unavailable Source Comments In the event this information is protected by the Federal Confidentiality of Alcohol and Drug AbusePatient Records regulations: The Federal rules restrict any use of the information to criminally investigate or prosecute any alcohol or drug abuse patient.[facility] Encounter Details Date Type Department Care Team (Late st Contact Info) Description 07/27/2022 Lab Requisition [facility] [address] [place] [address] Edwar Machado MD [address] [place] [address] Social History Tobacco Use Types [...] Office Visit Rehab Medicine [address] [place] [address] Nemunaitis, Dakota Moore MD [address] [id number] 1 mnth follow up documented as of this encounter Procedures Procedure Name Priority Date/Time Associated Diagnosis Comments COVID NAAT, UPPER RESPIRATORY, ROUTINE Routine 07/27/2022 11:39 AM EST documented in this encounter Results * 2019 CORONAVIRUS (07/27/2022 11:39 AM EST) SARS-CoV-2 (Agent of COVID-19) RNA SARS-CoV-2 (Agent of COVID-19) Not Detected by RT-PCR or equivalent method. Not Detected SWATHI MYKEL [id number] 07/28/2022 1:57 AM EST [facility] Comment: This test was developed and its performance characteristics determined by [facility]'s [facility] [place]. This test has been authorized by FDA under an Emergency Use Authorization (EUA). This test has been validated in accordance with the FDA's Guidance Document Policy for Diagnostics Testing in Laboratories Certified to Perform High Complexity Testing under CLIA prior to Emergency use Authorization for Coronavirus Disease 2019 during the Public Health Emergency issued on August 31, 2019. Test performed by [facility], [facility] [place], [facility] [place], [place] [address]. Nasopharyngeal NASOPHARYNGEAL SWAB / Unknown 07/27/2022 11:39 AM EST 07/27/2022 1:23 PM EST us Edwar Machado MD MICROBIOLOGY Final Result [facility] [address] [facility][Note 2] [address] [place] [address], documented in this encounter Visit Diagnoses Not on filedocumented in this encounter Care Teams Culinary Worker Relationship Specialty Start Date End Date Alicia Khan APRN.VOLUNTEER SERVICES COORDINATOR [address] [place] [address] 07/12/23 [place] [address] [address] [id number] Pain Management 02/06/24 [place] [address] [place], [place] [phone] Pain Management 02/06/24 documented as of this encounter
--- OUTSIDE RECORDS SUMMARY | 2025-02-14 18:18 | XMS_ITS | Encounter Summary ---
Author Organization [facility] Address [address] [place] [address] Care Team Providers Care Manager Action Name Role Phone BillAlicia Janetrut POTTS.THROUGH OPERATOR Unavailable Jaun Mcgovern MD Unavailable Jaun Mcgovern MD Unavailable Source Comments In the event this information is protected by the Federal Confidentiality of Alcohol and Drug AbusePatient Records regulations: The Federal rules restrict any use of the information to criminally investigate or prosecute any alcohol or drug abuse patient.[facility] Encounter Details Date Type Department Care Team (Late st Contact Info) Description 07/19/2024 Get Medical Advice Rehab Medicine [address] [place] [phone] Dakota Benedict MD [address] [place] [address] X ray Social History Tobacco Use Types Packs/Day Years Used Date Smoking Tobacco: Every Day Smokeless Tobacco: Never Comments:VAPES PHQ-2 Answer Date Recorded PHQ-2 score 2 07/18/2024 Area Deprivation Index Answer Date Aguilar rded National Score (1-100), lower number is lower ri sk 91 07/28/2023 State Score (1-10), lower number is lower risk 9 07/28/2023 Data from: https://www.neighborhoodatlas.medicine.[facility].edu/. Last address used for calculation [address] [...] AM EDT Office Visit Rehab Medicine [address] [place] [phone] NemunaDakota be MD [address] [place] [address] 1 mnth follow up documented as of this encounter Visit Diagnoses Not on filedocumented in this encounter Care Teams Manager Action Relationship Specialty Start Date End Date Alicia Khan, CHAIN BUILDER LOOM CONTROL.THROUGH OPERATOR [address] [place] [address] 07/12/23 [place] [address] [place], [place] [phone] Pain Management 02/06/24 [place] [address] [place] [address] Pain Management 02/06/24 documented as of this encounter
--- OUTSIDE RECORDS SUMMARY | 2025-02-14 18:18 | XMS_ITS | Clinical Summary ---
Author Organization [facility] Address [address] [place] [address] Care Team Providers Care Inspector Final Assembly Electrical Name Role Phone Alicia Khan SOLDER DEPOSIT OPERATOR Unavailable Allergies Active Allergy Reactions Criticality Noted Date Comments Anesthetics, Amide 04/09/2018 Other reaction(s): AOF Anesthetics, [place] 04/09/2018 Other reaction(s): AOF Anesthetics, Halogenated 04/09/2018 Other reaction(s): AOF Duloxetine Hcl Anxiety High 01/20/2023 Duloxetine High 09/07/2023 Other Reaction(s): Other: See Comments Suicidal ideation Hydroxyquinolines 08/23/2018 Hydroxyzine Rash Medium 12/14/2017 Other Reaction(s): AOF, Other: See Comments Other reaction(s): AOF Other Reaction(s): AOF Other reaction(s): AOF Other Reaction(s): AOF Levetiracetam 01/19/2023 Other Reaction(s): nightmares Other 07/08/2022 General anesthesia during Propofol Anaphylaxis High 12/19/2017 Sodium Hypochlorite Hives 05/04/2018 Medications Lidocaine 4 % patchIndications:Ne uropathic pain Place 2 patches on the skin as needed at bedtime (at bedtime as needed for pain). 60 patch 5 3 Active escitalopram (Lexapro) 20 MG tabletIndications:O ther muscle spasm,Moderate episode of recurrent major depressive disorder (HCC) Take 1 tablet (20 mg) by mouth in the morning. 90 tablet 1 3 Active pregabalin (Lyrica) 300 MG capsuleIndications: Neuropathic pain,Neuropathy TAKE 1 CAPSULE BY MOUTH TWICE DAILY 60 capsule 3 4 Active Ascorbic Acid (vitamin C) 500 MG tablet Take 500 mg by mouth Daily 4 Active baclofen (Lioresal) 20 MG tablet Take 20 mg by mouth in the morning and 20 mg in the evening and 20 mg before bedtime. 4 Active busPIRone (Buspar) 30 MG tablet Take 30 mg by mouth in the morning and 30 mg before bedtime. 4 Active cloNIDine (Catapres) 0.3 MG tablet Take 0.3 mg by mouth in the morning and 0.3 mg before bedtime. 4 Active ergocalciferol (Vitamin D2) 1.25 MG (34003 UT) capsule Take 1 capsule by mouth 1 (one) time per week 4 Active etodolac (Lodine) 400 MG tablet Take 400 mg by mouth 2 (two) times a day as needed Active ondansetron ODT (Zofran-ODT) 4 MG disintegrating tablet DISSOLVE 1 TABLET BY MOUTH EVERY 6 (SIX) HOURS NEEDED FOR NAUSEA and FOR VOMITING 4 Active oxybutynin XL (Ditropan-XL) 10 MG 24 hr tablet Take 10 mg by mouth Daily 4 Active phentermine (Adipex-P) 37.5 MG tablet Take 37.5 mg by mouth Daily 4 Active QUEtiapine (SEROquel) 200 MG tablet 4 Active sertraline (Zoloft) 50 MG tablet TAKE 1 & 1/2 (ONE AND ONE-HALF) TABLETS BY MOUTH DAILY 4 Active Active Problems Problem Noted Date Diagnosed Date Nonintractable generalized i diopathic epilepsy without status epilepticus 10/05/2023 Arthralgia 01/20/2023 Chest wall pain 01/20/2023 Chronic hepatitis C virus infection 01/20/2023 Current smoker 01/20/2023 Overview (01/20/2023): Added secondary to documentation in Social History. Anxiety disorder 01/19/2023 Cauda equina syndrome 01/19/2023 Constipation 01/19/2023 Generalized-onset seizures 01/19/2023 Herniated cervical disc 01/19/2023 Neurogenic bowel 01/19/2023 Insomnia 01/19/2023 Neuropathy 01/19/2023 Polycystic ovarian syndrome 01/19/2023 Reactive depression 01/19/2023 Urinary tract obstruction 01/19/2023 Neuropathic pain 01/10/2023 Unspecified injury at unspec ified level of cervical spinal cord, subsequent encounter 12/01/2022 Other muscle spasm 12/01/2022 Epilepsy, unspecified, not i ntractable, without status epilepticus 07/11/2022 Status post lumbar spine operation 07/08/2022 Closed compression fracture of body of L1 verteb ra 06/26/2022 Closed fracture of twelfth thoracic vertebra Closed unstable burst fracture of first lumbar v ertebra 06/26/2022 Paraplegia 06/26/2022 Overview (10/05/2023): Patient had breakthrough seizure which resulted in T12 and unstable L1 fracture severely retropulsed L1 fragment with conus compression ventral and underwent surgery 06/26/2022. She has complete paraplegia with conus medullaris syndrome per review of neurosurgery note from [facility]. She is experiencing significant pain into her lower extremity with spasticity, making it difficult for her to move or participate in physical therapy. She is having some slight improvement with some muscle contraction in proximal RLE. She is treated with baclofen, zanaflex, lyrica. She continues to participate in therapy and reports slow improvement in mobility. She is able to transfer herself and working on standing. Class 1 obesity 03/26/2020 Displacement of cervical int ervertebral disc without myelopathy 03/26/2020 Family History Medical History Relation Name Comments Alcohol abuse Father Diabetes Maternal Grandfather Dev Cancer Maternal Grandmother Jennifer Osteoporosis Maternal Grandmother Jennifer ADD / ADHD Mother Yaneli Allergies Mother Yaneli Depression Mother Yaneli Mental illness Mother Yaneli Severe sprains Mother Yaneli Alzheimer's disease Other Cancer Other Diabetes Other Heart disease Other Hyperlipidemia Other Hypertension Other Migraines Other Obesity Other Osteoarthritis Other Relation Name Status Comments Brother Alive Father Maternal Grandfather Dev Maternal Grandmother Jennifer Mother Yaneli Alive Other Sister Alive Social History Tobacco Use Types Packs/Day Years Used Date Smoking Tobacco: Every Day Cigarettes 0.5 12 Smokeless Tobacco: Never Tobacco Cessation:Ready to Q uit: Not Asked; Counseling Given: Not Answered Comments:Smokes 5 or less vaping Alcohol Use Standard Drinks/Week Comments Never 0 (1 standard drink = 0.6 oz pur e alcohol) caffeine: coffee Humiliation, Afraid, Rape, and Kick questionnair e [...] How often do you attend chur or adventist services? Never 01/16/2023 Do you belong to any clubs o r organizations such as mormonism groups, unions, fraternal or athletic groups, or [...] Recorded Patient Health Questionnaire-2 Score 0 01/19/2023 [facility] - Occupational Stress Questionnaire Answer Date Recorded [...] place to sleep or slept in a intermediate (including now)? No 01/16/2023 Housing Stability Vital [...] AM EDT Sexual Orientation Not on file Last Filed Vital Signs Vital Sign Reading Time Taken Comments Blood Pressure 132/90 12/11/2023 1:20 PM EDT Pulse 91 12/11/2023 1:20 PM EDT Temperature - - Respiratory Rate - - Oxygen Saturation 97% 12/11/2023 1:20 PM EDT Inhaled Oxygen Concentration - - Weight 98.9 kg (218 lb) 05/10/2024 10:12 AM EST Height 175.3 cm (5' 9 ) 05/10/2024 10:12 AM EST Body Mass Index 32.19 05/10/2024 10:12 AM EST Plan of Treatment Not on file Insurance [employer] Care Teams Inspector Final Assembly Electrical Relationship Specialty Start Date End Date Alicia Khan NP [address] [phone] Referring Physician Family Medicine 05/10/24
--- OUTSIDE RECORDS SUMMARY | 2025-02-14 18:18 | XMS_ITS | Clinical Summary ---
Author Organization [facility] Address [address] [place] [address] Care Team Providers Care Document Imaging Manager Name Role Phone Nikos Suazo MD Primary Care Provider + Allergies Active Allergy Reactions Criticality Noted Date Comments Propofol Anaphylaxis High 12/20/2017 Anesthetics, Amide 04/09/2018 Other reaction(s): AOF Anesthetics, [place] 04/09/2018 Other reaction(s): AOF Anesthetics, Halogenated 04/09/2018 Other reaction(s): AOF Hydroxyquinolines 08/23/2018 Hydroxyzine Rash Medium 12/15/2017 Sodium Hypochlorite Hives 05/04/2018 Medications Melatonin 5 MG Tab Dispersible tablet Take 5 mg by mouth As directed as needed. Active ondansetron 4 MG Tab tabletIndications: Nausea and vomiting, intractability of vomiting not specified, unspecified vomiting type Take 1 tablet by mouth every 8 hours as needed for Nausea. 30 tablet 1 12/21/19 18 Active Additional Information Patient not taking.Reported on 07/16/2018 Etonogestrel (NEXPLANON) 68 MG SC implant 68 mg by Implant route once. Active benzonatate (TESSALON PERLES) 100 MG Cap capsule Take 1 capsule by mouth 3 times daily as needed. 20 capsule 07/16/19 19 Active Additional Information Patient not taking.Reported on 02/21/2024 guaiFENesin 600 MG Tab SR 12 HR tablet SR Take 1 tablet by mouth 2 times daily. 20 tablet 07/16/19 19 Active Additional Information Patient not taking.Reported on 02/21/2024 QUEtiapine Fumarate (SEROQUEL PO) Take by mouth. Activ e Phentermine HCl 37.5 MG capsule Take 1 capsule by mouth daily. Active pregabalin 300 MG capsule Take 1 capsule by mouth Twice daily. 12/13/19 24 Active Sertraline 50 MG tablet TAKE 1 & 1/2 (ONE AND ONE-HALF) TABLETS BY MOUTH DAILY 02/13/20 24 Active traMADol 50 MG tablet Take 1 tablet by mouth every 6 hours as needed. 02/15/20 24 Active TraMADol HCl 100 MG (BIPH) Tab SR 24 HR Take 1 tablet by mouth daily. Active lamoTRIgine 25 MG tablet Take 1 tablet by mouth Twice daily. 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 Overview (12/25/2017): Valtrex at 36 weeks Drug use affecting in second trimester 12/25/2017 Overview (12/25/2017): + THC, recommend quit in Family History Medical History Relation Name Comments Lipid Disorder Maternal Grandmother Uterine Cancer Maternal Grandmother Heart Disease - Other Maternal Uncle Other - Specify Maternal Uncle Hodgkins Other - Specify Mother Lupus Erythe matous Hypertension Other close relative Thyroid Disease Other close relati ve Relation Name Status Comments Maternal Grandmother Maternal Uncle Mother Other Social History Tobacco Use Types Packs/Day Years Used Date Smoking Tobacco: Heavy Smoker Cigarettes Smokeless Tobacco: Never Tobacco Cessation:Ready to Q uit: Not Asked; Counseling Given: Not Answered Alcohol Use Standard Drinks/Week Comments Yes 0 (1 standard drink = 0.6 oz pur e alcohol) Comments No Sex and Gender Information Value Date Recorded Sex Assigned at Not on file Legal Sex Female 6:25 PM EDT Gender Identity Female 11/29/2017 11:12 AM EDT Sexual Orientation Not on file Last Filed Vital Signs Vital Sign Reading Time Taken Comments Blood Pressure 122/64 02/21/2024 10:21 AM EDT Pulse 115 06/26/2022 3:30 AM EST Temperature 36.6 C (97.8 F) 06/26/2022 12:34 AM EST Respiratory Rate 16 06/26/2022 3:30 AM EST Oxygen Saturation 97% 06/26/2022 3:30 AM EST Inhaled Oxygen Concentration - - Weight 133.4 kg (294 lb) 06/26/2022 12:35 AM EST Height 175.3 cm (5' 9 ) 06/26/2022 12:35 AM EST Body Mass Index 43.42 06/26/2022 12:35 AM EST Plan of Treatment Health Maintenance Due Date Last Done Comments HEPATITIS C VIRUS SCREENING 1997 TETANUS 1997 HEP B VACCINE (1 of 3 - 19+ 3-dose series) 2016 PNEUMOCOCCAL VACCINE SERIES (1 of 2 - PCV) 2016 TDAP (ADULT) 2016 CERVICAL CANCER SCREENING DISCUSSION 2018 COVID-19 VACCINE ( - 2023- season) 2024 HPV VACCINE (1 - 3-dose SCDM series) 2024 INFLUENZA VACCINE (#1) 2025 07/17/2018, 2017 CHLAMYDIA SCREEN Discontinued 11/22/2017, 11/22/2017 GONORRHEA SCREEN Discontinued 11/22/2017, 11/22/2017 HIV SCREENING DISCUSSION Completed 12/20/2017 Procedures Procedure Name Priority Date/Time Associated Diagnosis Comments HIV 1 AND 2 ANTIBODIES Routine 12/20/2017 3:05 PM EDT Encounter for supervision of other normal in second trimester CHLAM & GONORRHEA: AMP, URINE Routine 11/22/2017 from Last 3 Months or Most Recently Relevant to Health Maintenance Results * HIV 1 AND 2 ANTIBODIES (12/20/2017 3:05 PM EDT) HIV-1/HIV-2 AB/p24 Antigen Negative Negative [facility] Comment: The specimen was non-reactive for HIV-1 and HIV-2 antibodies, and p24 antigen. Based on this non-reactive screen result, further reflexive testing was not indicated and was, therefore, not performed INTERPRETIVE INFORMATION: HIV-1,2 Combo Ag/Ab EIA w/Reflex This assay should not be used for blood donor screening, associated re-entry protocols, or for screening Human Cell, Tissues and Cellular and Tissue-Based Products (HCT/P). Performed by [facility], [address] [place] [address] [email or web address], Kai Bland MD - Lab. Director Performed at [facility]. [place], [place] 12/20/2017 3:05 PM EDT 12/20/2017 3:07 PM EDT Timoteo Salgado ADULT CARE PROVIDER-WORKFORCE DEVELOPMENT SPECIALIST IMMUNOLOGY ORDERABLES Nelsy l Result [facility] - [address] [facility] [address] [place] [address] * CHLAM & GONORRHEA: AMP, URINE (11/22/2017) Chlamydia Trachomatis, Urine, MANUAL ENTER negative Neisseria Gonorrhoeae, Urine, MANUAL ENTER negative Historical Provider MICROBIOLOGY - GENERAL ORDER TITI Final Result from Last 3 Months or Most Recently Relevant to Health Maintenance [place] [id number] [facility] [place] [address] Care Teams Document Imaging Manager Relationship Specialty Start Date End Date Nikos Suazo MD [address] [place] [address] [place] [address] PCP - General Family Medicine 12/15/17
--- OUTSIDE RECORDS SUMMARY | 2025-02-14 18:18 | XMS_ITS | Clinical Summary ---
Author Organization [facility] Address [address] [place] [address] Care Team Providers Care Spray Machine Tender Name Role Phone Alicia Khan APRN.GROCERY SUPERVISOR Unavailable [phone] Jaun Mcgovern MD Unavailable Jaun Mcgovern MD Unavailable Allergies Active Allergy Reactions Criticality Noted Date Comments Duloxetine Other: See Comments 11/17/2023 Suicidal ideation Hydroxyzine Other: See Comments,Rash Medium 12/14/2017 Other reaction(s): AOF Other Reaction(s): AOF Medications oxybutynin ER (DITROPAN XL) 10 mg 24 hr tablet Take 10 mg by mouth once daily. Active pregabalin (LYRICA) 300 mg capsule Take 300 mg by mouth two times a day. Active ondansetron (ZOFRAN) 4 mg tablet Take 4 mg by mouth every 8 hours as needed for nausea/vomiti ng. Active cloNIDine HCl (CATAPRES) 0.3 mg tablet Take 0.3 mg by mouth. 06/27/2023 Active ibuprofen (MOTRIN) 800 mg tablet Take 800 mg by mouth three times a day as needed. Active ergocalciferol, vitamin D2, (VITAMIN D2 ORAL) Take 50,000 Units by mouth one time a week. Active ascorbic acid, vitamin C, (VITAMIN C) 500 mg tablet Take 500 mg by mouth once daily. Active lamoTRIgine (LAMICTAL) 150 mg tablet Take 1.5 tabs in the morning and 1 tab in the evening every day by mouth. 225 tablet 2 08/30/2024 Active buprenorphine HCl/naloxone HCl (SUBOXONE SUBLINGUAL) Dissolve under the tongue. Active zonisamide (ZONEGRAN) 100 mg capsuleIndicati ons:Generalized -onset seizures (HCC) Take 2 capsules by mouth daily at bedtime. 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 10/05/2023 Complete paraplegia 05/05/2023 Chronic hepatitis C virus infection 01/20/2023 Generalized-onset seizures 01/19/2023 Neuropathic pain 01/10/2023 Closed fracture of T12 vertebra with spinal cord injury 06/26/2022 Closed compression fracture of body of L1 verteb ra 06/26/2022 Mild intermittent asthma without complication Bipolar 1 disorder with moderate lizbet 9 Encounters Date Type Department Care Team Description 12/05/2024 Telephone Rehab Medicine [address] [place] [address] Dakota Benedict MD Patient Update from Last 3 Months Immunizations Immunization Administration Dates Next Due influenza (IIV3) vaccine, tr ivalent (AFLURIA, FLULAVAL, FLUVIRIN, FLUZONE) 07/17/2018 influenza (IIV4) vaccine, ag e 6 mo - 64 yr, quadrivalent, PF (AFLURIA, FLUARIX, FLULAVAL, FLUZONE) 06/11/2018 Social History Tobacco Use Types Packs/Day Years Used Date Smoking Tobacco: Every Day Smokeless Tobacco: Never Tobacco Cessation:Ready to Q uit: Not Asked; Counseling Given: Not Answered Comments:VAPES PHQ-2 Answer Date Recorded PHQ-2 score 2 08/27/2024 Area Deprivation Index Answer Date Aguilar rded National Score (1-100), lower number is lower ri sk 91 07/28/2023 State Score (1-10), lower number is lower risk 9 07/28/2023 Data from: https://www.neighborhoodatlas.medicine.[place] [facility].edu/. Last address used for calculation [address] 07/28/2023 Comments Unknown Sex and Gender Information Value Date Recorded Sex Assigned at Female 07/21/2023 10:25 AM EST Legal Sex Female 4:15 PM EST Gender Identity Female 07/21/2023 10:25 AM EST Sexual Orientation Not on file Last Filed Vital Signs Vital Sign Reading Time Taken Comments Blood Pressure 121/69 02/08/2024 10:30 AM EDT Pulse 119 02/08/2024 10:30 AM EDT Temperature - - Respiratory Rate 18 01/09/2024 10:48 AM EDT Oxygen Saturation 99% 02/08/2024 10:30 AM EDT Inhaled Oxygen Concentration - - Weight 97.1 kg (214 lb) 09/27/2024 11:42 AM EDT Height 175.3 cm (5' 9 ) 09/27/2024 11:42 AM EDT Body Mass Index 31.6 09/27/2024 11:42 AM EDT Plan of Treatment Upcoming Encounters Date Type Department Care Team (Late st Contact Info) Description 02/21/2025 11:00 AM EDT Office Visit Rehab Medicine [address] [place] [address] NemunaitisDakota MD [address] [place] [address] 1 mnth follow up Health Maintenance Due Date Last Done Comments DTaP,Tdap,Td Vaccine (6 - Tdap) 2008 02/24/2003, 11/24/1999, 04/01/1998, Additional history exists Annual PCP Team Chronic Dise ase Visit 09/23/2015 Hepatitis A Vaccine (1 of 2 - Risk 2-dose series) 2016 Pneumococcal Vaccine (1 of 2 - PCV) 2016 Cervical Cancer Screening 2018 Medicare Advantage Annual We llness Visit 07/03/2024 HPV Vaccine (1 - 3-dose SCDM series) 2024 Influenza Vaccine (#1) 2025 07/17/2018, 2017 Hepatitis B Vaccine Completed 03/30/1998, 1997, 1997 HIV Screening Completed 07/21/2022, 07/03, 07/20/2022 Hepatitis C Screening Completed 01/20/2023 Procedures Procedure Name Priority Date/Time Associated Diagnosis Comments HIV-2 DNA AMPL PROBE Routine 07/21/2022 6:00 AM EST from Last 3 Months or Most Recently Relevant to Health Maintenance Results * HIV-2 DNA/RNA PCR (07/21/2022 6:00 AM EST) HIV 2 DNA PCR, Qual NOT DETECTED 07/28/2022 7:56 AM EST [facility] ([facility]) Comment: REFERENCE RANGE: NOT DETECTED This test was developed and its analytical performance characteristics have been determined by [facility]. It has not been cleared or approved by FDA. This assay has been validated pursuant to the CLIA regulations and is used for clinical purposes. Blood BLOOD SPECIMEN / Unknown Central Line / Unknown 07/21/2022 6:00 AM EST 07/21/2022 10:07 AM EST Narrative [facility] - 07/28/2022 7:56 AM EST Performing Organization Information: [id number] [facility] [address] [place] [address] Agnes Benavidez MD. Edwar Machado MD LABORATORY Final Result [facility]) [address] [id number] from Last 3 Months or Most Recently Relevant to Health Maintenance Insurance [facility] [employer] HMO Mail Code [id number] [place] [id number] [employer] Care Teams Spray Machine Tender Relationship Specialty Start Date End Date Alicia Khan APRN.GROCERY SUPERVISOR [address] [place] [address] 07/12/23 [place] [address] [address] [place] [address] Pain Management 02/06/24 [place] [address] [place] [address] Pain Management 02/06/24
--- OUTSIDE RECORDS SUMMARY | 2025-02-14 18:18 | XMS_ITS | Encounter Summary ---
Author Organization [facility] Address [address] [place] [address] Care Team Providers Care Blood Bank Coordinator Name Role Phone Bill, Alicia FIRE ALARM REPAIRER Unavailable Reason for Visit * Reason Comments Med Refill Encounter Details Date Type Department Care Team (Late st Contact Info) Description 03/03/2024 Refill KHALIF GARCIA [address] [place] [phone] Rachel Bhatt PA Seizure disorder (HCC); Epilepsy, unspecified, not intractable, without status epilepticus (HCC) Social History Tobacco Use Types Packs/Day Years [...] 01/16/2023 How often do you attend chur ch or orthodox services? Never 01/16/2023 Do you belong to any clubs o r organizations such as mormon groups, unions, fraternal or athletic groups, or [...] Recorded Patient Health Questionnaire-2 Score 0 01/19/2023 [facility] - Occupational Stress Questionnaire Answer Date Recorded [...] place to sleep or slept in a mcfp (including now)? No 01/16/2023 Housing Stability Vital [...] encounter Miscellaneous Notes * Telephone Encounter - Bentley Mcfadden MA - 03/05/2024 11:12 AM EDT Patient seen 12/2022 and never scheduled 3 month follow up, please schedule documented in this encounter Plan of Treatment Not on file documented as of this encounter Visit Diagnoses Diagnosis Seizure disorder (HCC) Unspecified epilepsy without mention of intractable epilepsy Epilepsy, unspecified, not intractable, without status epilepticus (HCC) documented in this encounter Care Teams Blood Bank Coordinator Relationship Specialty Start Date End Date Alicia Khan NP [address] [place] [address] Referring Physician Family Medicine 05/10/24 documented as of this encounter
--- OUTSIDE RECORDS SUMMARY | 2025-02-14 18:18 | XMS_ITS | Encounter Summary ---
Author Organization [facility] Address [address] [place] [address] Care Team Providers Care Welfare Analyst Name Role Phone Alicia Khan APRN.VIDEO PRODUCTION ENGINEER Unavailable [phone] Jaun Mcgovern MD Unavailable Jaun Mcgovern MD Unavailable Source Comments In the event this information is protected by the Federal Confidentiality of Alcohol and Drug AbusePatient Records regulations: The Federal rules restrict any use of the information to criminally investigate or prosecute any alcohol or drug abuse patient.[facility] Encounter Details Date Type Department Care Team (Late st Contact Info) Description 08/15/2024 Patient Msg Nutrition Therapy [address] [address] Provider, Ccf Nutrition education follow up Social History Tobacco Use Types Packs/Day Years Used Date Smoking Tobacco: Every Day Smokeless Tobacco: Never Comments:VAPES PHQ-2 Answer Date Recorded PHQ-2 score 2 07/18/2024 Area Deprivation Index Answer Date Aguilar rded National Score (1-100), lower number is lower ri sk 91 07/28/2023 State Score (1-10), lower number is lower risk 9 07/28/2023 Data from: https://www.neighborhoodatlas.medicine.[facility]/. Last address used for calculation [address] [...] AM EDT Office Visit Rehab Medicine [address] [place] [phone] NemDakota plunkett MD [address] [place] [address] 1 mnth follow up documented as of this encounter Visit Diagnoses Not on filedocumented in this encounter Care Teams Welfare Analyst Relationship Specialty Start Date End Date Alicia Khan, VESSEL LINER.VIDEO PRODUCTION ENGINEER [address] [place] [address] 07/12/23 [place] [address] [address] [place] [address] Pain Management 02/06/24 [place] [address] [place] [address] Pain Management 02/06/24 documented as of this encounter
--- OUTSIDE RECORDS SUMMARY | 2025-02-14 18:18 | XMS_ITS | Encounter Summary ---
Author Organization [facility] Address [facility] [place] [address] Care Team Providers Care Commercial Lawn Specialist Name Role Phone BillAlicia Janetrut POTTS.HEAT TREAT OPERATOR Unavailable Jaun Mcgovern MD Unavailable Jaun Mcgovern MD Unavailable Source Comments In the event this information is protected by the Federal Confidentiality of Alcohol and Drug AbusePatient Records regulations: The Federal rules restrict any use of the information to criminally investigate or prosecute any alcohol or drug abuse patient.[facility] Encounter Details Date Type Department Care Team (Late st Contact Info) Description 07/20/2022 Lab Requisition [facility] [address] [place] [address] Edwar Machado MD [address] [place] [address] Social History Tobacco Use Types [...] Office Visit Rehab Medicine [address] [place] [address] Nemunaitis, Dakota Moore MD [address] [place] [address] 1 mnth follow up Scheduled Orders Name Type Priority Associated Diagnoses Orde r Schedule HIV-2 DNA/RNA PCR Lab Routine Ordered : 07/20/2022 documented as of this encounter Procedures Procedure Name Priority Date/Time Associated Diagnosis Comments BACTERIAL CULTURE, URINE Routine 07/20/2022 12:20 PM EST 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 Mixed microbiota can be due to urine contamination with skin bacteria at time of collection or presence of a long- term urinary catheter. If a new culture is needed, please consider re-education of the patient on proper midstream co llection technique or straight catheterization for urine collection. Urine URINE SPECIMEN OBTAINED BY CLEAN CATCH PROCEDURE / Unknown 07/20/2022 12:20 PM EST 07/20/2022 3:31 PM EST Edwar Machado MD MICROBIOLOGY Final Result Performing Organization Address [facility]/ZIP Co de Phone Number [facility] [address] [place] [address], [place] * HSV 1,2/VZV AMP MOLECULAR DETECT (07/20/2022 12:19 PM EST) Herpes Simplex Virus 1 (HSV-1) DNA Negative for Herpes Simplex virus Type 1 by Nucleic Acid Amplification . Negative 07/21/2022 12:07 PM EST [facility] Herpes Simplex Virus 2 (HSV-2) DNA Negative for Herpes Simplex virus Type 2 by Nucleic Acid Amplification . Negative 07/21/2022 12:07 PM EST [facility] Varicella-Zos ter Virus (VZV) DNA Negative for Varicella Zoster virus by Nucleic Acid Amplification . Negative 07/21/2022 12:07 PM EST [facility] Wound Swab (E-Swab Recommended) OTHER / Unknown 07/20/2022 12:19 PM EST 07/20/2022 3:16 PM EST Edwar Machado MD LABORATORY Final Result Performing Organization Address [facility] Co de Phone Number [facility] [address] [place] [address], [place] * HIV 1 2 COMBO(AG/AB),WITH REFLEX TO DIFFERENTIATION (07/20/2022 12:19 PM EST) HIV 12 Combo (Ag/Ab) Nonreactive Nonreactive 07/21/2022 10:50 AM EST [facility] HIV-1/2 AB (Confirmatory) 07/21/2022 10:50 AM EST [facility] Comment:Test not indicated. HIV Interpretation 07/21/2022 10:50 AM EST [facility] Comment: No evidence of HIV-1 or HIV-2 infection. Should recent infection be suspected, repeat testing may be considered 2-3 weeks after this draw. [place] Rev. Code 3701.243(E): This information has been disclosed to you from confidential records protected from disclosure by state law. You shall make no further disclosure of this information without the specific, written, and informed release of the individual to whom it pertains or as otherwise permitted by state law. A general authorization for the release of medical or other information is not sufficient for the purpose of the release of HIV test results or diagnoses. Blood BLOOD SPECIMEN / Unknown 07/20/2022 12:19 PM EST 07/20/2022 3:20 PM EST us Edwar Machado MD LABORATORY Final Result [facility] [address] [facility] [address] [place] [address], [place] * (ABNORMAL) URINALYSIS, WITH MICROSCOPIC (07/20/2022 12:19 PM EST) Color Yellow Yellow 07/20/2022 3:55 PM EST [facility] Clarity Clear Clear 07/20/2022 3:55 PM EST [facility] Glucose, Urine Negative Negative 07/20/2022 3:55 PM EST [facility] Bilirubin, Urine Negative Negative 07/20/19 3:55 PM EST [facility] Ketones, Urine Negative Negative 07/20/2022 3:55 PM EST [facility] Specific [place], Ur <=1.005(L) 1.005 - 1.030 07/20/2022 3:55 PM EST [facility] Hemoglobin/Blood ,Ur Negative Negative, Trace 07/20/2022 3:55 PM EST [facility] pH, Urine 6.5 5.0 - 8.0 07/20/2022 3:55 PM EST [facility] Protein, Urine Negative Negative 07/20/2022 3:55 PM EST [facility] Urobilinogen 0.2 EU/dL 0.2-1.0 EU/dL 07/20/2022 3:55 PM EST [facility] Nitrites Negative Negative 07/20/2022 3:55 PM EST [facility] Leuk Esterase 2+(A) Negative 07/20/2022 3:55 PM EST [facility] WBC, Urine 11-25 /HPF(A) 0-5 /HPF 07/20/2022 3:55 PM EST [facility] RBC, Urine 0-3 /HPF 0-3 /HPF 07/20/2022 3:55 PM EST [facility] Bacteria Moderate(A) None Seen /HPF 07/20/2022 3:55 PM EST [facility] Squamous Epithelial Cells Few /HPF 07/20/2022 3:55 PM EST [facility] Urine VOIDED URINE SPECIMEN / Unknown 07/20/2022 12:19 PM EST 07/20/2022 3:31 PM EST us Edwar Machado MD LABORATORY Final Result [facility] [address] [place] [address], * GC/CHLAMYDIA AMPLIF, URINE (07/20/2022 12:19 PM EST) Neisseria gonorrhoeae RNA Negative for Neisseria gonorrhoeae by amplification Negative for Neisseria gonorrhoeae by amplification PAN[facility] SYSTEM HOLOGIC 07/22/2022 7:32 PM EST [facility] Chlamydia trachomatis RNA Negative for Chlamydia trachomatis by amplification Negative for Chlamydia trachomatis by amplificaton [facility] 07/22/2022 7:32 PM EST [facility] Urine URINE SPECIMEN / Unknown Non Blood / Unknown 07/20/2022 12:19 PM EST 07/22/2022 7:14 AM EST Narrative [facility] - 07/22/2022 7:32 PM EST For screening asymptomatic women, a vaginal swab specimen(APTIMA vaginal swab [id number]) is optimal. Urine specimens have reduced sensitivity for Chlamydia trachomatis or Neisseria gonorrhoeae infection in female patients without symptoms. us Edwar Machado MD MICROBIOLOGY Final Result [facility] [address] [address], documented in this encounter Visit Diagnoses Not on filedocumented in this encounter Care Teams Commercial Lawn Specialist Relationship Specialty Start Date End Date Alicia Khan APRN.HEAT TREAT OPERATOR [address] [place] [address] 07/12/23 [place] [address] [address] [place], [place] [phone] Pain Management 02/06/24 [place] [address] [place], [place] [phone] Pain Management 02/06/24 documented as of this encounter
--- OUTSIDE RECORDS SUMMARY | 2025-02-14 18:18 | XMS_ITS | Clinical Summary ---
Author Organization [facility] Address [id number] [address] [place] [address] Care Team Providers Care Certified Professional Midwife Name Role Phone Alicia Khan Dean POTTS-OFFICE SUPPORT Primary Care Provider [phone] Allergies Active Allergy Reactions Criticality Noted Date Comments Anesthetics - Amide Type - S elect Amino Amides 10/22/2018 Anesthetics - [place] Type- Parabens 0 10/22/2018 Hydroxyzine 10/22/2018 Medications * This document contains information received from the source organization and may not represent a complete record from that organization. No known medications Active Problems Problem Noted Date Diagnosed Date Mild intermittent asthma without complication Chronic bilateral low back pain 10/23/2018 Abnormal uterine bleeding 10/23/2018 Bipolar 1 disorder with moderate lizbet 9 Social History Tobacco Use Types Packs/Day Years Used Date Smoking Tobacco: Every Day Cigarettes Smokeless Tobacco: Never Alcohol Use Standard Drinks/Week Comments Yes 0 (1 standard drink = 0.6 oz pur e alcohol) social Childcare Answer Date Recorded Childcare Unknown 12/13/2018 Employment Answer Date Recorded Employment Unknown 12/13/2018 Purpose - Life Answer Date Recorded Purpose and direction in life Unknown Comments Unknown Sex and Gender Information Value Date Recorded Sex Assigned at Not on file Legal Sex Female 1:08 PM EDT Gender Identity Not on file Sexual Orientation Not on file Last Filed Vital Signs Vital Sign Reading Time Taken Comments Blood Pressure 117/73 10/25/2018 7:40 AM EDT Pulse 88 10/25/2018 7:40 AM EDT Temperature 36.7 C (98.1 F) 10/25/2018 7:40 AM EDT Respiratory Rate 20 10/25/2018 7:40 AM EDT Oxygen Saturation 97% 10/25/2018 7:40 AM EDT Inhaled Oxygen Concentration - - Weight 111.6 kg (246 lb) 10/22/2018 6:59 PM EDT Height 170.2 cm (5' 7 ) 10/22/2018 6:59 PM EDT Body Mass Index 38.53 10/22/2018 6:59 PM EDT Plan of Treatment Health Maintenance Due Date Last Done Comments DTaP,Tdap and Td Vaccines (6 - Tdap) 2008 02/24/2003, 11/24/1999, 04/01/1998, Additional history exists Depression Screening 2009 Tobacco Screening 2009 Adult BMI Screening 09/23/2015 Pap Smear 2018 Influenza Vaccine 03/03/2025 07/17/2018, 06/11/2018 Medical Devices Not on file Insurance [employer] Advance Directives * Full Code (Latest Code Status on File) Date Activated Date Inactivated Comments 10/22/2018 2:16 PM 10/25/2018 4:29 PM Care Teams Certified Professional Midwife Relationship Specialty Start Date End Date Alicia Khan, BUILDING AND CONSTRUCTION MANAGER-OFFICE SUPPORT [address] [place] [address] PCP - General Nurse Practitioner 10/11/24
--- OUTSIDE RECORDS SUMMARY | 2025-02-14 18:18 | XMS_ITS | Encounter Summary ---
Author Organization [facility] Address [address] [place] [address] Care Team Providers Care Director Diversity Name Role Phone Alicia Khan APRN.CASING COOKER Unavailable Jaun Mcgovern MD Unavailable Jaun Mcgovern MD Unavailable Source Comments In the event this information is protected by the Federal Confidentiality of Alcohol and Drug AbusePatient Records regulations: The Federal rules restrict any use of the information to criminally investigate or prosecute any alcohol or drug abuse patient.[facility] Encounter Details Date Type Department Care Team (Late st Contact Info) Description 09/20/2023 [place] [address] Provider, [facility] Questionnaire Submission Social History Tobacco Use Types Packs/Day Years Used Date Smoking Tobacco: Never Assessed PHQ-2 Answer Date Recorded PHQ-2 score 4 07/21/2023 Area Deprivation Index Answer Date Aguilar rded National Score (1-100), lower number is lower ri sk 91 07/28/2023 State Score (1-10), lower number is lower risk 9 07/28/2023 Data from: https://www.neighborhoodatlas.medicine.[facility].edu/. Last address used for calculation [address] [facility] 07/28/2023 Comments Unknown Sex and Gender Information [...] AM EDT Office Visit Rehab Medicine [address] [place] [address] NemunaDakota be MD [address] [place] [address] 1 mnth follow up documented as of this encounter Visit Diagnoses Not on filedocumented in this encounter Care Teams Director Diversity Relationship Specialty Start Date End Date Alicia Khan, LEGAL ASSISTANT.CASING COOKER [address] [place] [address] 07/12/23 [place] [address] [address] [place] [id number] Pain Management 02/06/24 [place] [address] [place], [place] [phone] Pain Management 02/06/24 documented as of this encounter
--- OUTSIDE RECORDS SUMMARY | 2025-02-14 18:18 | XMS_ITS | Clinical Summary ---
Author Organization [facility] Address [address], [address] [place] [address] Care Team Providers Care Drag Out Man Name Role Phone Adonis Yaneli ORONA Primary Care Provider Unava ilable Allergies Active Allergy Reactions Criticality Noted Date Comments Adhesive Tape Itching,Rash Low 05/06/2023 Duloxetine Hcl Other (See Comments) 07/21/2022 Suicidal ideation Duloxetine High 09/07/2023 Hydroxyquinolines Other (See Comments) High 08/23/19 19 Triggers seizures Hydroxyzine Rash Medium 12/14/2017 Other reaction(s): AOF Other Reaction(s): AOF Other Hives Medium 08/23/2018 bleach Medications lamoTRIgine (LAMICTAL) 25 MG tablet Take 3 tablets by mouth in the morning and at bedtime 30 tablet 3 Active melatonin 5 MG TABS tablet Take 1 tablet by mouth nightly 30 tablet 3 Active Additional Information Patient not taking.Reported on 07/17/2024 baclofen (LIORESAL) 20 MG tablet 1 tab TID 3 Active busPIRone (BUSPAR) 5 MG tablet Take 3 tablets by mouth 3 times daily 3 times a day 15 mg 3 Active QUEtiapine (SEROQUEL) 25 MG tablet 3 Active acetaminophen (TYLENOL) 325 MG tablet Take 2 tablets by mouth every 6 hours as needed for Pain Active Handicap Placard MISC by Does not apply route 1 each 3 Active oxybutynin (DITROPAN XL) 5 MG extended release tablet Take 1 tablet by mouth daily 30 tablet 3 3 Active ibuprofen (ADVIL;MOTRIN) 800 MG tablet Take 1 tablet by mouth every 8 hours as needed for Pain 21 tablet 3 Active pantoprazole (PROTONIX) 40 MG tablet Take 1 tablet by mouth every morning (before breakfast) 30 tablet 3 3 Active Additional Information Patient not taking.Reported on 07/17/2024 pregabalin (LYRICA) 300 MG capsule Take 1 capsule by mouth 2 times daily. Active SUBOXONE 8-2 MG FILM SL film 5 Active Active Problems Problem Noted Date Diagnosed Date Chronic low back pain 05/08/2023 Lumbar spinal cord injury 05/08/2023 Complete paraplegia 05/05/2023 Injury to L1 level of spinal cord 01/10/2023 Neuropathic pain 01/10/2023 Closed compression fracture of body of L1 verteb ra 06/26/2022 Closed fracture of twelfth thoracic vertebra Closed unstable burst fracture of first lumbar v ertebra 06/26/2022 Paraparesis 06/26/2022 Cauda equina compression 06/26/2022 Encounters Date Type Department Care Team Description 12/16/2024 Clinical Documentation [facility] Physical Therapy [address] [place], [place] [id number] Lyndsay Mahmood PTA from Last 3 Months Family History Medical History Relation Name Comments No Known Problems Father Cancer Maternal Grandmother cervica l Bipolar Disorder Mother Relation Name Status Comments Father Maternal Grandmother Mother Social History Tobacco Use Types Packs/Day Years Used Date Smoking Tobacco: Former Cigarettes Q uit: 2020 Smokeless Tobacco: Never Tobacco Cessation:Counseling Given: No Alcohol Use Standard Drinks/Week Comments Not Currently 0 (1 standard drink = 0.6 oz pur e alcohol) [facility] Utilities Answer Date Recorded In the past 12 months has th e electric, gas, oil, or water company threatened to shut off services in your home? No 05/06/2023 AUDIT-C Answer Date Recorded Q1: How often do you have a drink containing alc ohol? Monthly or less 06/28/2022 Q2: How many drinks containi ng alcohol do you have on a typical day when you are drinking? 1 or 2 06/28/2022 Q3: How often do you have si x or more drinks on one occasion? Never 06/28/2022 Hunger Vital Sign Answer Date Recorded Within the past 12 months, y ou worried that your food would run out before you got the money to buy more. Never true 05/06/20 23 Within the past 12 months, t he food you bought just didn't last and you didn't have money to get more. Never true 05/06/2023 PRAPARE - Transportation Answer Date Re corded In the past 12 months, has l ack of transportation kept you from medical appointments or from getting medications? No 10/2022 In the past 12 months, has l ack of transportation kept you from meetings, work, or from getting things needed for daily living? No 05/06/2023 Housing Stability Vital Sign Answer Mark Anthony e Recorded In the last 12 months, was t here a time when you were not able to pay the mortgage or rent on time? No 05/06/2023 In the last 12 months, how many places have you lived? 1 05/06/2023 In the last 12 months, was t here a time when you did not have a steady place to sleep or slept in a longterm (including now)? No 05/06/2023 [facility] Answer Date Recorded How often does anyone, inclu ding family and friends, physically hurt you? Never 05/06/2023 Transportation Problems ([facility]) Answer Date Recorded In the past 12 months, has l ack of reliable transportation kept you from medical appointments, meetings, work or from getting things needed for daily living? Not on file 05/19/2023 Food Insecurity Answer Date Recorded Within the past 12 months, y ou worried that your food would run out before you got the money to buy more. 1 05/06/2023 Within the past 12 months, t he food you bought just didn't last and you didn't have money to get more. 1 05/06/2023 Interpersonal Safety Domain Source: IP Abuse Scr eening Answer Date Recorded Read-Only, Retired: Physical Abuse Denies 05/06/2023 Read-Only, Retired: Verbal Abuse Denies 05/06/2023 Read-Only, Retired: Emotional abuse Denies 05/06/2023 Read-Only, Retired: Financial Abuse Denies 05/06/2023 Read-Only, Retired: Sexual abuse Denies 05/06/2023 Comments No Sex and Gender Information Value Date Recorded Sex Assigned at Female 01/23/2023 1:00 PM EDT Legal Sex Female 8:38 AM EDT Gender Identity Female 01/23/2023 1:00 PM EDT Sexual Orientation Straight 01/23/2023 1: 00 PM EDT Last Filed Vital Signs Vital Sign Reading Time Taken Comments Blood Pressure 122/76 07/17/2024 12:00 PM EST Pulse 84 07/17/2024 12:00 PM EST Temperature 36.4 C (97.6 F) 07/17/2024 12:00 PM EST Respiratory Rate 18 09/07/2023 10:5 4 AM EST Oxygen Saturation 97% 07/17/2024 12: 00 PM EST Inhaled Oxygen Concentration - - Weight 93.4 kg (206 lb) 07/17/2024 12:0 0 PM EST per patient in chair Height 175.3 cm (5' 9 ) 06/28/2023 11:5 0 AM EST Body Mass Index 30.42 06/28/2023 11:50 AM EST Plan of Treatment Health Maintenance Due Date Last Done Comments Varicella vaccine (2 of 2 - 2-dose childhood series) 2001 11/24/1999 Polio vaccine (2 of 3 - 4-dose series) 03/24/2003 02/24/2003 DTaP/Tdap/Td vaccine (6 - Tdap) 2008 02/24/2003, 11/24/1999, 04/01/1998, Additional history exists Depression Screen 2009 HIV screen 2012 Hepatitis C screen 09/23/2015 Hepatitis B vaccine (1 of 3 - 19+ 3-dose series) 2016 Pap smear 2018 COVID-19 Vaccine (1 - season) 2024 Flu vaccine (#1) 01/31/2025 07/17/2018, , 06/11/2018 Hib vaccine Completed 11/24/1999, 03/05, 01/23/1998, Additional history exists HPV vaccine (No Doses Required) Completed Hepatitis A vaccine Aged Out No longe r eligible based on patient's age to complete this topic Meningococcal (ACWY) vaccine Aged Out No longer eligible based on patient's age to complete this topic Meningococcal B vaccine Aged Out No l onger eligible based on patient's age to complete this topic Pneumococcal 0-49 years Vaccine Aged Out No longer eligible based on patient's age to complete this topic Medical Devices Implanted Type Area Curb Setter Device Identifier Shelf Expiration Date Model / Serial / Lot Screw Spnl Multaxl 6.5x45 Mm For 4.75 Mm Timothy Ats - [id number] Implanted:Qty: 4 on 06/26/2022 by James Leong DO at [facility] Screw/ Plate/ Nail/R od N/A: Back [employer] SOFAMOR DANEK-WD [id number] / / Screw Spnl Multaxl 7.5x40 Mm For 4.75 Mm Timothy Ats - [id number] Implanted:Qty: 1 on 06/26/2022 by James Leong DO at [facility] Screw/ Plate/ Nail/R od N/A: Back [employer] SOFAMOR DANEK-WD [id number] / / Timothy Spnl L170mm [id number] Solera - [id number] Implanted:Qty: 2 on 06/26/2022 by James Leong DO at [facility] Screw/ Plate/ Nail/R od N/A: Back [employer] SO[employer]AM[employer] DANEK-WD [id number] / / Set Scr Spnl Dia4.75mm Ti Brk Off Cdh Solera - [id number] Implanted:Qty: 8 on 06/26/2022 by James Leong DO at [facility] Screw/ Plate/ Nail/R od N/A: Back [employer] SO[employer] DANEK-WD [id number] / / Screw Spnl Multaxl 6.5x35 Mm For 4.75 Mm Timothy Ats - [id number] Implanted:Qty: 1 on 06/26/2022 by James Leong DO at [facility] Screw/ Plate/ Nail/R od N/A: Back [employer] SO[employer] DANEK-WD [id number] / / Screw Spnl Multaxl 6.5x40 Mm For 4.75 Mm Timothy Ats - [id number] Implanted:Qty: 2 on 06/26/2022 by James Leong DO at [facility] Screw/ Plate/ Nail/R od N/A: Back [employer] DANEK-WD [id number] / / Graft Bne Sub [id number] Posterolateral Cerv Demin Bne Mtrx - [id number] Implanted:Qty: 1 on 06/26/2022 by James Leong DO at [facility] [employer] SPINALGRAFT TECH-WD 04/07/2024 [id number] / [id number] / N/A Graft Bne Sub [id number] Spnl Deformity Magnifuse Sc - [id number] Implanted:Qty: 1 on 06/26/2022 by James Leong DO at [facility] [employer] SPINALG[employer] TECH-WD 05/22/2024 [id number] / [id number] / N/A Endcap Spnl 25c H31mm Od25mm Ti Co Chrome Nit E Exp T2 - [id number] Implanted:Qty: 1 on 05/05/2023 by James Leong DO at [facility] N/A: Spine Lumbar [employer] SO[employer] DANEK-WD [id number] / / Screw Spnl L35mm Od8mm Ti Canc Ant Thorlum Pedcl St Fix Ang - [id number] Implanted:Qty: 1 on 05/05/2023 by James Leong DO at [facility] N/A: Spine Lumbar [employer] SOFAMOR DANEK-WD [id number] / / Plate Spnl L5cm Std Ant Thor Ti [place] - [id number] Implanted:Qty: 1 on 05/05/2023 by James Leong DO at [facility] N/A: Spine Lumbar [employer] SO[employer] DANEK-WD [id number] / / Plate Bne 16 H Craniomaxillofacial Ti Str Lo Prof W/O [facility] - [id number] Implanted:Qty: 2 on 05/05/2023 by James Leong DO at [facility] N/A: Other MARIA ELENA CRANIOMAXILLOF ACIAL-WD [id number] / / Description:Implanted into r ib Screw Bne L5mm Dia1.5mm Univ Self Drl Crss Pin 5/Ea - [id number] Implanted:Qty: 26 on 05/05/2023 by James Leong DO at [facility] N/A: Other MARIA ELENA CRANIOMAXILLOF ACIAL-WD [id number] / / Insurance Member Subscriber Plan / Payer ( fective 2023-Present) Name:Kayleen Pete Relation to Subscriber:Self Name:Kayleen Pete Payer ID:[id number] (NA) Type:Not on file Address: [address] [employer] Member Subscriber Plan / Payer ( fective 2023-Present) Name:Kayleen Pete Relation to Subscriber:Self Name:Kayleen Pete Payer ID:[id number] (NAIC) Type:Not on file Address: [place] [id number] [employer] [address] [id number] Advance Directives * Full Code (Latest Code Status on File) Date Activated Date Inactivated Comments 05/05/2023 6:37 PM 05/23/2023 4:00 PM * Full Code Date Activated Date Inactivated Comments 05/05/2023 3:57 PM 05/05/2023 6:37 PM * Full Code Date Activated Date Inactivated Comments 06/26/2022 7:23 AM 07/08/2022 4:35 PM Care Teams Drag Out Man Relationship Specialty Start Date End Date Yaneli Lamb LPN PCP - General 12/08/22
--- OUTSIDE RECORDS SUMMARY | 2025-02-14 18:18 | XMS_ITS | Encounter Summary ---
Author Organization [facility] Address [address] [place] [address] Care Team Providers Care Rack Pusher Name Role Phone Alicia Khan APRN.BUSINESS TECHNOLOGY PROFESSOR Unavailable Jaun Mcgovern MD Unavailable Jaun Mcgovern MD Unavailable Source Comments In the event this information is protected by the Federal Confidentiality of Alcohol and Drug AbusePatient Records regulations: The Federal rules restrict any use of the information to criminally investigate or prosecute any alcohol or drug abuse patient.[facility] Encounter Details Date Type Department Care Team (Late st Contact Info) Description 08/01/2023 Get Medical Advice [place]ine [place] [address] [place] [address] Yanira Cameron APRN.BUSINESS TECHNOLOGY PROFESSOR [address] [place] [address] X ray and mri Social History Tobacco Use Types Packs/Day Years Used Date Smoking Tobacco: Never Assessed PHQ-2 Answer Date Recorded PHQ-2 score 4 07/21/2023 Area Deprivation Index Answer Date Aguilar rded National Score (1-100), lower number is lower ri sk 91 07/28/2023 State Score (1-10), lower number is lower risk 9 07/28/2023 Data from: https://www.neighborhoodatlas.medicine.[facility].edu/. Last address used for calculation [...] AM EDT Office Visit Rehab Medicine [address] [place] [phone] Dakota Benedict MD [address] [place] [address] 1 mnth follow up documented as of this encounter Visit Diagnoses Not on filedocumented in this encounter Care Teams Rack Pusher Relationship Specialty Start Date End Date Alicia Khan, DIRECTOR OF SPECIAL EDUCATION.BUSINESS TECHNOLOGY PROFESSOR [address] [place], [place] [phone] 07/12/23 [place] [address] [place] [address] Pain Management 02/06/24 [place] [address] [place] [address] Pain Management 02/06/24 documented as of this encounter
--- OUTSIDE RECORDS SUMMARY | 2025-02-14 18:18 | XMS_ITS | Encounter Summary ---
Author Organization [facility] Address [address] [place] [address] Care Team Providers Care Certified Teacher Assistant Name Role Phone BillAlicia Janetrut POTTS.STAFF OCCUPATIONAL THERAPIST Unavailable [phone] Jaun Mcgovern MD Unavailable Janu Mcgovern MD Unavailable Source Comments In the event this information is protected by the Federal Confidentiality of Alcohol and Drug AbusePatient Records regulations: The Federal rules restrict any use of the information to criminally investigate or prosecute any alcohol or drug abuse patient.[facility] Encounter Details Date Type Department Care Team (Late st Contact Info) Description 01/17/2024 Patient Msg Urology [address] [place] [address] Dorcas Menard MD [address] [place] [address] Appointment Request Social History Tobacco Use Types Packs/Day Years Used Date Smoking Tobacco: Every Day Smokeless Tobacco: Never Comments:VAPES PHQ-2 Answer Date Recorded PHQ-2 score 2 01/07/2024 Area Deprivation Index Answer Date Aguilar rded National Score (1-100), lower number is lower ri sk 91 07/28/2023 State Score (1-10), lower number is lower risk 9 07/28/2023 Data from: https://www.neighborhoodatlas.medicine.[facility].edu/. Last address used for calculation [address] [...] AM EDT Office Visit Rehab Medicine [address] [place] [phone] Dakota Benedict MD [address] [place] [address] 1 mnth follow up documented as of this encounter Visit Diagnoses Not on filedocumented in this encounter Care Teams Certified Teacher Assistant Relationship Specialty Start Date End Date Alicia Khan, TRIM MOUNTER.STAFF OCCUPATIONAL THERAPIST [address] [place] [address] 07/12/23 [place] [address] [place], [place] [address] Pain Management 02/06/24 [place] [address] [place] [address] Pain Management 02/06/24 documented as of this encounter
--- OUTSIDE RECORDS SUMMARY | 2025-02-14 18:19 | XMS_ITS | Encounter Summary ---
Author Organization [facility] Address [address] [place] [address] Care Team Providers Care Gm/Svp Global Publisher Business Name Role Phone BillAlicia APRN.INVESTIGATOR OPERATOR Unavailable [phone] Jaun Mcgovern MD Unavailable Jaun Mcgovern MD Unavailable Source Comments In the event this information is protected by the Federal Confidentiality of Alcohol and Drug AbusePatient Records regulations: The Federal rules restrict any use of the information to criminally investigate or prosecute any alcohol or drug abuse patient.[facility] Encounter Details Date Type Department Care Team (Late st Contact Info) Description 01/29/2024 Patient Msg Rehab Medicine [address] [place] [place] [phone] Dakota Benedict MD [address] [place] [address] Appointment Request Social History Tobacco Use Types Packs/Day Years Used Date Smoking Tobacco: Every Day Smokeless Tobacco: Never Comments:VAPES PHQ-2 Answer Date Recorded PHQ-2 score 2 01/07/2024 Area Deprivation Index Answer Date Aguilar rded National Score (1-100), lower number is lower ri sk 91 07/28/2023 State Score (1-10), lower number is lower risk 9 07/28/2023 Data from: https://www.neighborhoodatlas.medicine.[facility].edu/. Last address used for calculation [address] [...] AM EDT Office Visit Rehab Medicine [address] [place] [phone] Dakota Benedict MD [address] [place] [address] 1 mnth follow up documented as of this encounter Visit Diagnoses Not on filedocumented in this encounter Care Teams Gm/Svp Global Publisher Business Relationship Specialty Start Date End Date Alicia Khan APRN.INVESTIGATOR OPERATOR [address] [place], [place] [phone] 07/12/23 [place] [address] [place], [place] [phone] Pain Management 02/06/24 [place] [address] [place] [address] Pain Management 02/06/24 documented as of this encounter
--- OUTSIDE RECORDS SUMMARY | 2025-02-14 18:19 | XMS_ITS | Encounter Summary ---
Author Organization [facility] Address [address] [place] [address] Care Team Providers Care Personal Fitness Manager Name Role Phone BillAlicia APRN.STAPLE CUTTER Unavailable Jaun Mcgovern MD Unavailable Jaun Mcgovern MD Unavailable Source Comments In the event this information is protected by the Federal Confidentiality of Alcohol and Drug AbusePatient Records regulations: The Federal rules restrict any use of the information to criminally investigate or prosecute any alcohol or drug abuse patient.[facility] Encounter Details Date Type Department Care Team (Late st Contact Info) Description 02/25/2024 Patient Msg Rehab Medicine [address] [place] [phone] Dakota Benedict MD [address] [place] [address] Appointment Request Social History Tobacco Use Types Packs/Day Years Used Date Smoking Tobacco: Every Day Smokeless Tobacco: Never Comments:VAPES PHQ-2 Answer Date Recorded PHQ-2 score 6 02/28/2024 Area Deprivation Index Answer Date Aguilar rded National Score (1-100), lower number is lower ri sk 91 07/28/2023 State Score (1-10), lower number is lower risk 9 07/28/2023 Data from: https://www.neighborhoodatlas.medicine.[facility].edu/. Last address used for calculation [address] [...] AM EDT Office Visit Rehab Medicine [address] [place] [phone] Dakota Benedict MD [address] [place] [address] 1 mnth follow up documented as of this encounter Visit Diagnoses Not on filedocumented in this encounter Care Teams Personal Fitness Manager Relationship Specialty Start Date End Date Alicia Khan APRN.STAPLE CUTTER [address] [place], [place] [phone] 07/12/23 [place] [address] [address] [place], [place] [phone] Pain Management 02/06/24 [place] [address] [place] [address] Pain Management 02/06/24 documented as of this encounter
--- OUTSIDE RECORDS SUMMARY | 2025-02-14 18:19 | XMS_ITS | Encounter Summary ---
Author Organization [facility] Address [address] [place] [address] Care Team Providers Care Necktie Maker Name Role Phone Alicia Khan APRN.CAR CHECKER Unavailable [phone] Jaun Mcgovern MD Unavailable Jaun Mcgovern MD Unavailable Source Comments In the event this information is protected by the Federal Confidentiality of Alcohol and Drug AbusePatient Records regulations: The Federal rules restrict any use of the information to criminally investigate or prosecute any alcohol or drug abuse patient.[facility] Encounter Details Date Type Department Care Team (Late st Contact Info) Description 02/06/2024 Patient Msg Pain Management [address] [place] [phone] Provider, [facility] appointment with Dr. Mcgovern on January Social History Tobacco Use Types Packs/Day Years Used Date Smoking Tobacco: Every Day Smokeless Tobacco: Never Comments:VAPES PHQ-2 Answer Date Recorded PHQ-2 score 2 01/07/2024 Area Deprivation Index Answer Date Aguilar rded National Score (1-100), lower number is lower ri sk 91 07/28/2023 State Score (1-10), lower number is lower risk 9 07/28/2023 Data from: https://www.neighborhoodatlas.medicine.[facility].edu/. Last address used for calculation [...] AM EDT Office Visit Rehab Medicine [address] [place] [address] NemDakota plunkett MD [address] [place] [address] 1 mnth follow up documented as of this encounter Visit Diagnoses Not on filedocumented in this encounter Care Teams Necktie Maker Relationship Specialty Start Date End Date Alicia Khan, JOCKEY AGENT.CAR CHECKER [address] [place] [address] 07/12/23 [place] [address] [place] [address] Pain Management 02/06/24 [place] [address] [place] [address] Pain Management 02/06/24 documented as of this encounter
--- OUTSIDE RECORDS SUMMARY | 2025-02-14 18:19 | XMS_ITS | Encounter Summary ---
Author Organization [facility] Address [address] [place] [address] Care Team Providers Care Barrel Liner Name Role Phone BillAlicia Janetrut POTTS.PUMP TENDER Unavailable [phone] Jaun Mcgovern MD Unavailable Jaun Mcgovern MD Unavailable Source Comments In the event this information is protected by the Federal Confidentiality of Alcohol and Drug AbusePatient Records regulations: The Federal rules restrict any use of the information to criminally investigate or prosecute any alcohol or drug abuse patient.[facility] Encounter Details Date Type Department Care Team (Late st Contact Info) Description 05/11/2024 Patient Msg Urology [address] [address] Dorcas Menard MD [address] [place] [address] Appointment Cancellation Request Social History Tobacco Use Types Packs/Day Years Used Date Smoking Tobacco: Every Day Smokeless Tobacco: Never Comments:VAPES PHQ-2 Answer Date Recorded PHQ-2 score 4 04/07/2024 Area Deprivation Index Answer Date Aguilar rded National Score (1-100), lower number is lower ri sk 91 07/28/2023 State Score (1-10), lower number is lower risk 9 07/28/2023 Data from: https://www.neighborhoodatlas.medicine.[facility].edu/. Last address used for calculation [address] [...] AM EDT Office Visit Rehab Medicine [address] [place] [phone] Dakota Benedict MD [address] [place] [address] 1 mnth follow up documented as of this encounter Visit Diagnoses Not on filedocumented in this encounter Care Teams Barrel Liner Relationship Specialty Start Date End Date Alicia Khan, NOTEREADER.PUMP TENDER [address] [place] [address] 07/12/23 [place] [address] [place] [address] Pain Management 02/06/24 [place] [address] [place] [address] Pain Management 02/06/24 documented as of this encounter
--- NOTE | 2025-02-14 18:20 | PC.NURSE ---
no bruising to site of complaint
--- OUTSIDE RECORDS SUMMARY | 2025-02-14 18:22 | XMS_ITS | CCD ---
Author Organization [facility] Care Team Providers Care French Binder Name Role Phone [place], Timoteo Unavailable Unavailable Damian, Timoteo Unavailable Unavailable [place], Timoteo Unavailable Unavailable LAUTZENHEISER, WENDY Unavailable Unavailabl [...] Unavailable Unavailable LAUTZENHEISER, WENDY Unavailable Unavailabl e [place], Timoteo Unavailable Unavailable Damian, Timoteo Unavailable Unavailable LAUTZENHEISER, WENDY Unavailable Unavailabl e Damian, Timoteo Unavailable Unavailable CHILCOTE, DAR L Unavailable Unavailable CHILCOTE, DAR L Unavailable Unavailable LAUTZENHEISER, WENDY Unavailable Unavailabl e Lautzenheiser, Wendy E Unavailable [phone] Andrés GUERRA, Jocelyn John Unavailable Unavailable None Unavailable Unavailable Rao, Audrey J Unavailable Unavailable Lautzenheiser, Wendy Unavailable Unavailabl e Rao, Audrey J Unavailable Unavailable Lautzenheiser, Wendy Unavailable Unavailabl e Rao, Audrey J Unavailable Unavailable Lautzenheiser, Wendy Unavailable Unavailabl e Rao, Audrey J Unavailable Unavailable None Unavailable Unavailable Rao, Audrey J Unavailable Unavailable Wendy Sandoval Unavailable Unavailabl e Rao, Audrey J Unavailable Unavailable None Unavailable Unavailable Mercedes Johnnysadie Barnes Unavailable Unavailable Wendy Sandoval Unavailable Unavailabl e Rao, Audrey J Unavailable Unavailable Gabriele Wendy Unavailable Unavailabl e Rao, Audrey J Unavailable Unavailable Gabriele Wendy Unavailable Unavailabl e Rao, Audrey J Unavailable Unavailable Pothast CNM, Lenora Jimenez Unavailable Unavailabl e None Unavailable Unavailable Bowen CNM, Jocelyn D Unavailable Unavailable None Unavailable Unavailable Wendy Sandoval Primary Care Provider BASHIR BENITEZ Attending Unavailabl e WENDY SANDOVAL Primary Care Unavailabl e BASHIR BENITEZ Attending Unavailcynthia e WENDY SANDOVAL Primary Care Unavailabl e BASHIR BENITEZ Attending Unavailabl e MATHEW OTT Referring Unavailable WENDY SANDOVAL Primary Care Unavailcynthia e Wendy Sandoval Primary Care Provider [phone] Yaneli DENG Primary Care Physician Wendy Sandoval MD Primary Care Provider TETE GUSTAFSON Attending Unavailable TETE GUSTAFSON Admitting Unavailable WENDY SANDOVAL Primary Care Unavaila ble SYSTEM, PROVIDER NOT IN Referring Unavaila ble WENDY SANDOVAL Primary Care Unavaila ble LEVI BUITRAGO Attending Unavailable Unavailable Primary Care Provider Unavailabl e Unavailable Primary Care Provider Unavailabl e ANDREW ., DR HERNANDEZ Attending Unavailable REQUEST, DR NONE LISTED Primary Care Unavaila ble ANDREW ., DR HERNANDEZ Admitting Unavailable REQUEST, DR PACHECO LISTED Primary Care Unavaila ble MARY CARMEN HORTON Admitting Unavailable MARY CARMEN HORTON Consulting Unavailable MARY CARMEN HORTON Attending Unavailable ANDREW ., DR HERNANDEZ Consulting Unavailable ANDREW ., DR HERNANDEZ Attending Unavailable YANELI DENG Primary Care Unavailable ANDREW ., DR HERNANDEZ Admitting Unavailable Riya Prabhu Unavailable Adonis STOCKFEED MILLERGely Putnamh Primary Care Provider Unava ilable YANELI LAMB Primary Care Unavailable AHAMMAD, GETACHEW Referring Unavailable LAMB, YANELI Primary Care Unavailable AHAMMAD, GETACHEW Referring Unavailable L[facility]B, [facility] Primary Care Unavailable AHAMMAD, GETACHEW Referring Unavailable LAMB, YANELI Primary Care Unavailable AHAMMAD, GETACHEW Referring Unavailable LAMB, YANELI Primary Care Unavailable ALTAF DANIELS Consulting Unavailable AHAMMAD, GETACHEW Admitting Unavailable AHAMMAD, GETACHEW Attending Unavailable YEHUDA OROURKE Consulting Unavailable FATOU PARK Consulting Unavail able LAMB, YANELI Primary Care Unavailable AHAMMAD, GETACHEW Referring Unavailable Gustavo FOUNDATION DIGGER.HARNESS INSPECTOR, Earline L Unavailable [phone] SUHAIL CAMERONIA Referring Unavailable KHUSHBOO, ARPAN Referring Unavailable KHUSHBOO, ARPAN Referring Unavailable Gustavo FOUNDATION DIGGER.HARNESS INSPECTOR, Earline Janet Unavailable Froilan BROWN, Amber Unavailable Froilan BROWN, Amber Unavailable Gabriele BROWN, Wendy Primary Care Provider MIREYA VIEIRA Attending Unavailable SELF, SELF Referring Unavailable WENDY SANDOVAL Primary Care Unavailabl e Gustavo FOUNDATION DIGGER.HARNESS INSPECTOR, Earline L Unavailable Earline Chen MD Unavailable VALERIA MONTOYA Attending Unavailable HILLS, SARAY D Referring Unavailable HILLS, SARAY D Attending Unavailable HILLS, SARAY D Referring Unavailable HILLS, SARAY D Attending Unavailable HILLS, SARAY D Referring Unavailable HILLS, SARAY D Referring Unavailable Amanda BROWN, Karen Jimenez Primary Care Provider NATY BENEDICT Referring Unavai lable NEMUNAITIS, NATY Mcallister Referring Unavailabl e GUSTAVOEARLINE L Primary Care Unavailable CAROL NEAL Attending Unavailable SELF Referring Unavailable NEMUNAITIS, NATY MACDONALD Referring Unavai lable ANTWAN-GILLIAN CANALES Attending Unavailable NEMUNAITIS, NATY MACDONALD Referring Unavai lable GUSTAVO, EARLINE Referring Unavailable LAMB, [facility] Primary Care Unavailable GUSTAVO, EARLINE Referring Unavailable LAMB, [facility] Primary Care Unavailable GUSTAVO, EARLINE Referring Unavailable LAMB, [facility] Primary Care Unavailable GUSTAVO, EARLINE Referring Unavailable LAMB, YANELI Primary Care Unavailable GUSTAVO, EARLINE Referring Unavailable LAMB, YANELI Primary Care Unavailable GUSTAVO, EARLINE Referring Unavailable LAMB, YANELI Primary Care Unavailable LAMB, YANELI Primary Care Unavailable GUSTAVO, EARLINE Referring Unavailable GUSTAVO, EARLINE Referring Unavailable LAMB, YANELI Primary Care Unavailable GUSTAVO, EARLINE Referring Unavailable LAMB, [facility] Primary Care Unavailable JACKS, DEB W Referring Unavailable LAMB, [facility] Primary Care Unavailable JACKS, DEB W Referring Unavailable LAMB, [facility] Primary Care Unavailable GUSTAVO, EARLINE Referring Unavailable LAMB, [facility] Primary Care Unavailable GUSTAVO, EARLINE Referring Unavailable LAMB, [facility] Primary Care Unavailable GUSTAVO, EARLINE Referring Unavailable LAMB, [facility] Primary Care Unavailable LAMB, [facility] Primary Care Unavailable GUSTAVO, EARLINE Referring Unavailable LAMB, [facility] Primary Care Unavailable Frandy FERNANDEZ, Parth Blas Emergency Provider [phone] Gustavo ORTEGAC, Earline Gonzales Primary Care Provider [phone] Gustavo, Earline Moran Attending Unavailable Gustavo, Earline L Attending Unavailable Gustavo, Earline L Attending Unavailable Gustavo, Earline L Attending Unavailable Gustavo, Earline L Attending Unavailable Gustavo, Earline L Attending Unavailable Gustavo, Earline L Attending Unavailable Gustavo, Earline L Attending Unavailable Gustavo, Earline L Attending Unavailable Gustavo, Earline L Attending Unavailable Gustavo, Earline L Attending Unavailable Gustavo, Earline L Attending Unavailable Gustavo, Earline L Attending Unavailable Gustavo, Earline L Attending Unavailable Gustavo, Earline L Attending Unavailable Gustavo, Earline L Attending Unavailable Nik Ramirez DO Attending Provider SHASTA MADDOX Referring Unavailable NEME KAREN BLANCO Attending Unavailabl e TANGELA PAULA Attending Unavailable NEME MERCANTE, KAREN Referring Unavailabl e AMANDA SON Attending Unavailable NEMUNAITIS, NATY MACDONALD Attending Unavai lable NEMUNAITIS, NATY MACDONALD Referring Unavai lable KAITY MARLEY Attending Unavailable NEMUNAITIS, NATY MACDONALD Referring Unavai lable REGULO ROME Attending Unavailable SELF Referring Unavailable NEMUNAITIS, NATY MACDONALD Attending AMBER Uribe Attending Unavailable NEMNATY OWENS Referring Nik Aquino Attending Unavailable Earline Chen Primary Care Unavailable Nik Ramirez Admitting Unavailable Nik Ramirez Admitting Unavailable Nik Ramirez Attending Unavailable Earline Chen Primary Care Unavailable NO FAMILY, PHYSICIAN Primary Care Unavailable Donny Hernandez Admitting Unavailab le Donny Hernandez Attending Unavailab le Earline Chen Primary Care Unavailable Parth Wise Admitting Unavailable Parth Wise Attending Unavailable Allergies Allergy Classification Reported Allergen(s) Allergy Type Date of Onset Reaction(s) Facility Adhesive Tape (2 sources) Silicone adhesive tape Substance Allergy 05-06-20 23 Itching, Rash [facility] Antihistamines (2 sources) hydrOXYzine Drug Allergy 12-15-19 18 [facility] (4 sources) DULoxetine Drug Allergy 07-21-19 23 Other (See Comments[facility] ([facility] sources) hydrOXYzine; Translations: [hydroxyzine] Drug Allergy 12-15-19 18 Rash, Other: See Comments [facility] Work Phone: (18 sources) propofol; Translations: [propofol] Drug Allergy 12-20-19 18 Anaphylaxis [facility] Work Phone: (1 source) Anesthetics - Amide Type; Translations: [Anesthetics - Amide Type] Propensity to adverse reactions (disorder) 05-31-20 [facility] Repository (2 sources) Anesthetics - [place] Type- Parabens; Translations: [Anesthetics - [place] Type- Parabens] Propensity to adverse reactions (disorder) 05-31-20 18 [facility] Repository (12 sources) Anesthetics, Amide; Translations: [Anesthetics, Amide] Propensity to adverse reactions (disorder) 04-09-20 18 [facility] Repository (12 sources) Anesthetics, [place]; Translations: [Anesthetics, [place]] Propensity to adverse reactions (disorder) 04-09-20 18 [facility] Repository (12 sources) Anesthetics, Halogenated; Translations: [Anesthetics, Halogenated] Propensity to adverse reactions (disorder) [facility]-09-[facility] Hypochlorite Drug Allergy 05-04-20 18 [facility] tabulate [facility] (20 sources) Hydroxyquinolines Propensity to adverse reactions to drug 08-23-19 19 Other (See Comments) [facility] (2 sources) Acetaminophen Drug Allergy 08-23-19 19 [facility] [place] (2 sources) Ibuprofen Drug Allergy 08-23-19 19 [facility] [place] Other Propensity to adverse reactions 08-23-19 19 [facility] [place] [place] ([place]) DULoxetine Drug Allergy 07-21-19 23 Other (See Comments), Anxiety [facility] (20 sources) Silicone adhesive tape Propensity to adverse reactions to drug 05-06-20 23 Itching, Rash [facility] (20 sources) DULoxetine; Translations: [DULOXETINE] Drug Allergy 09-07-19 24 Other: See Comments [facility] [employer] Comment on above: suicide (6 sources) Hypochlorite Drug Allergy 05-04-20 18 [facility] (5 sources) Levetiracetam Allergy to substance 01-20-20 [facility] (1 source) ANESTHETICS - AMIDE TYPE - [facility] [facility]; Translations: [ANESTHETICS - AMIDE TYPE - [facility] [facility]] Propensity to adverse reactions to drug (disorder) 10-23-19 [facility] Repository (1 source) DULoxetine; Translations: [Cymbalta] Drug Allergy [facility] Repository (1 source) Hypochlorite; Translations: [sodium hypochlorite topical] Drug Allergy 05-03-20 [facility] Repository (1 source) No Known Medication Allergies; Translations: [No Known Medication Allergies] Propensity to adverse reactions (disorder) [facility] Repository (1 source) DULoxetine Drug Allergy 02-13-20 [facility] Repository (1 source) hydrOXYzine Drug Allergy 02-13-20 [facility] Repository NEGATED: Highlighted row has been ruled out! (20 sources) Other Propensity to adverse reactions 08-23-19 [facility]: Medications Current Medications Medication Drug Class(es) Dates Sig (Normalized) Sig (Original) acetaminophen 500 mg oral tablet (20 sources) Start: 07-01-2022 acetaminophen (TYLENOL) tablet 1,000 mg Start: 10-26-2019 acetaminophen (TYLENOL) tablet 650 mg Start: 10-26-2019 End: 07-05-2022 take 2 tablets by mouth every six hours as needed for pain acetaminophen (TYLENOL) 325 MG tablet Take 2 tablets by mouth every 6 hours as needed for Pain 40 tablet 0 10/26/2019 07/05/2022 Discontinued (Stop Taking at Discharge) ascorbic acid 500 mg chewable tablet (20 sources) Vitamin C Start: 02-13-2024 take 1 tablet by mouth once daily Ascorbic Acid (vitamin C) 500 MG tablet Take 500 mg by mouth Daily 02/13/2024 Active take 1 tablet by mouth once annie y ascorbic acid, vitamin C, (VITAMIN C) 500 mg tablet Take 500 mg by mouth once daily. Active baclofen 20 mg oral tablet (20 sources) gamma-Aminobutyric Acid-ergic Agonist Start: 12-13-2024 take 1 tablet by mouth three times daily Baclofen 20 mg tablet Active 20 MG PO Three times daily December 13, 2024 12:00am Complies with drug therapy Start: 11-17-2023 End: 08-13-2024 take 1 tablet by mouth three times daily baclofen 15 mg tablet Take 1 tablet by mouth three times a day. 270 tablet 11/17/2023 08/13/2024 Active Start: 11-17-2023 End: 08-13-2024 take 1 tablet by mouth three times daily baclofen 15 mg tablet Take 1 tablet by mouth three times a day. 270 tablet 0 11/17/2023 08/13/2024 Active Start: 01-20-2023 End: 05-10-2024 take 1 tablet by mouth in the morning, then take 1 tablet by mouth in the evening, then take 1 tablet by mouth at bedtime baclofen (Lioresal) 10 MG tablet Indications: Paraplegia (CMS/HCC) Take 1 tablet (10 mg) by mouth in the morning and 1 tablet (10 mg) in the evening and 1 tablet (10 mg) before bedtime. 90 tablet 5 01/20/2023 05/10/2024 Discontinued (Therapy completed) Start: 10-01-2022 End: 11-17-2023 baclofen (LIORESAL) 20 MG ta blet 1 tab TID 10/01/2022 Active Start: 07-04-2022 End: 08-04-2022 take [...] daily 30 suppository 0 07/06/2022 08/05/2022 Active buprenorphine 8 mg / naloxone 2 mg sublingual film (14 sources) Partial Opioid Agonist, Opioid Antagonist Start: 12-13-2024 Buprenorphine-Nal oxone (Suboxone) 8-2 mg film Active 2 FILM BUCCAL Daily December 13, 2024 12:00am place 1 film on inside of (each) cheek Complies with drug therapy Start: 07-15-2024 SUBOXONE 8-2 M G FILM SL film 07/15/2024 Active buprenorphine HCl/naloxone HCl (SUBOXONE SUBLINGUAL) (6 sources) buprenorphine HCl/naloxone HCl (SUBOXONE SUBLINGUAL) Dissolve under the tongue. Active busPIRone hydrochloride 30 mg oral tablet (20 sources) Start: 12-13-2024 take 1 tablet by mouth twice daily Buspirone 30 mg tablet Active 30 MG PO Twice daily December 13, 2024 12:00am Complies with drug therapy Start: 02-13-2024 take 1 tablet by renee th in the morning busPIRone (Buspar) 30 MG tablet Take 30 mg by mouth in the morning and 30 mg before bedtime. 02/13/2024 Active Start: 10-01-2022 take 3 tablets by mo uth three times daily busPIRone (BUSPAR) 5 MG tablet Take 3 tablets by mouth 3 times daily 3 times a day 15 mg 10/01/2022 Active Start: 10-01-2022 End: 02-20-2024 take 1 tablet by mouth in the morning, then take 1 tablet by mouth in the evening, then take 1 tablet by mouth at bedtime busPIRone (Buspar) 5 MG tablet Indications: Primary insomnia Take 1 tablet (5 mg) by mouth in the morning and 1 tablet (5 mg) in the evening and 1 tablet (5 mg) before bedtime. 270 tablet 3 03/08/2023 02/20/2024 Discontinued (Duplicate order) End: 08-27-2024 take 2 tablets by mouth twice daily busPIRone (BUSPAR) 15 mg tablet Take 30 mg by mouth two times a day. 08/27/2024 Discontinued End: 10-26-2019 take 1 tablet by mouth twice daily busPIRone (BUSPAR) 7.5 MG tablet Take 7.5 mg by mouth 2 times daily 0 10/26/2019 Discontinued (Alternate therapy) End: 06-10-2019 take 7.5 mg by mouth two times weekly BusPIRone HCl (BUSPAR PO) Take 7.5 mg by mouth twice a week. 0 06/10/2019 Discontinued calcium ascorbate 500 mg oral tablet (2 sources) Start: 12-13-2024 take 1 tablet by mouth once daily Ascorbate Calcium (Vitamin C) 500 mg tablet Active 500 MG PO Daily December 13, 2024 12:00am Complies with drug therapy cloNIDine hydrochloride 0.3 mg oral tablet (20 sources) Central alpha-2 Adrenergic Agonist Start: 06-27-2023 Clonidine Hcl 0.3 mg tablet Active MG PO December 13, 2024 12:00am Complies with drug therapy diclofenac sodium 0.01 mg/mg topical gel (4 sources) Nonsteroidal Anti-inflammatory Drug Start: 12-30-2022 diclofenac sodium (VOLTAREN) 1 % GEL docusate sodium 50 mg / sennosides, nursing home 8.6 mg oral tablet (6 sources) Start: 07-06-2022 take 2 tablets by mouth once daily sennosides-docus ate sodium (SENOKOT-S) 8.6-50 MG tablet Take 2 tablets by mouth daily 60 tablet 0 07/06/2022 Active Start: 06-27-2022 sennosides-doc usate sodium (SENOKOT-S) 8.6-50 MG tablet 2 tablet DULoxetine 30 mg delayed release oral capsule (6 sources) Serotonin and Norepinephrine Reuptake Inhibitor Start: 12-13-2024 take 1 capsule by mouth twice daily Duloxetine (Cymbalta) 20 mg capsule,delayed release(DR/EC) Active 20 MG PO Twice daily December 13, 2024 12:00am Complies with drug therapy Start: 12-13-2024 Duloxetine 30 mg capsule,delayed release(DR/EC) Active MG PO December 13, 2024 12:00am Complies with drug therapy Start: 10-31-2018 End: 10-26-2019 DULoxetine (CYMBALTA) 30 MG extended release capsule Take 1 cap x 7 days then 2 caps per day ( every 2 pm) 60 capsule 0 10/31/2018 10/26/2019 Discontinued (Alternate therapy) DULoxetine HCl ( CYMBALTA PO) Take 30 mg by mouth 0 Active 0.3 ml enoxaparin sodium 100 mg/ml prefilled syringe (2 sources) Low Molecular Weight Heparin Start: 07-05-2022 End: 08-04-2022 enoxaparin Sodium (LOVENOX) 30 MG/0.3ML injection Inject 0.3 mLs into the skin 2 times daily 18 mL 0 07/05/2022 08/04/2022 Active Start: 06-27-2022 enoxaparin Sod ium (LOVENOX) injection 30 mg ergocalciferol 1.25 mg oral capsule (7 sources) Provitamin D2 Compound Start: 12-13-2024 Ergocalciferol (Karolina min D2) 1,250 mcg (50,000 unit) capsule Active PO December 13, 2024 12:00am Complies with drug therapy Start: 02-13-2024 take 1 capsule by mo uth every week ergocalciferol (Vitamin D2) 1.25 MG (36475 UT) capsule Take 1 capsule by mouth 1 (one) time per week 02/13/2024 Active ergocalciferol, vitamin D2, (VITAMIN D2 ORAL) (20 sources) take 56783 [IU] by mouth every week ergocalciferol, vitamin D2, (VITAMIN D2 ORAL) Take 50,000 Units by mouth one time a week. Active etodolac 400 mg oral tablet (7 sources) Nonsteroidal Anti-inflammatory Drug Start: 025 take 1 tablet by mouth twice daily Etodolac 400 mg tablet Active 400 MG PO Twice daily December 13, 2024 12:00am Complies with drug therapy take 1 tablet by renee th twice daily as needed etodolac (Lodine) 400 MG tablet Take 400 mg by mouth 2 (two) times a day as needed Active etonogestrel 68 mg drug implant (8 sources) [...] Start: 07-08-2022 take 1 capsule by mo uth every eight hours gabapentin (NEURONTIN) capsule 900 [...] 20 tablet 07/16/2018 Active Handicap Placard MISC (20 sources) Start: 01-13-[address] MISC by Does not apply route 1 each 01/13/2023 Active Start: 01-13-[address] MISC by Does not apply route 1 each 0 01/13/2023 Active ibuprofen 800 mg oral tablet (20 sources) Nonsteroidal Anti-inflammatory Drug Start: 12-13-2024 Ibuprofen 800 mg tablet Active MG PO December 13, 2024 12:00am Complies with drug therapy Start: 05-22-2023 take 1 tablet by renee th every eight hours as needed for pain ibuprofen (ADVIL;MOTRIN) 800 MG tablet Take 1 tablet by mouth every 8 hours as needed for Pain 21 tablet 05/22/2023 Active Start: 01-20-2023 End: 05-10-2024 ibuprofen 400 MG tablet Hanny cations: Neuropathic pain , Neuropathy Take 1 tablet (400 mg) by mouth in the morning and 1 tablet (400 mg) at noon and 1 tablet (400 mg) in the evening and 1 tablet (400 mg) before bedtime. 120 tablet 5 01/20/2023 05/10/2024 Discontinued (Therapy completed) Start: 07-01-2022 End: 07-10-2022 take 1 tablet [...] (20 sources) Mood Stabilizer, Anti-epileptic Agent Start: 08-30-2024 take 1.5 tablets by mouth in the morning, then take 1 tablet by mouth once daily in the evening lamoTRIgine (LAMICTAL) 150 mg tablet Take 1.5 tabs in the morning and 1 tab in the evening every day by mouth. 225 tablet 2 08/30/2024 Active Start: 03-05-2024 End: 05-10-2024 take 1 tablet by mouth twice daily at bedtime lamoTRIgine (LaMICtal) 25 MG tablet Indications: Seizure disorder (CMS/HCC) , Epilepsy, unspecified, not intractable, without status epilepticus (CMS/HCC) TAKE 1 TABLET BY MOUTH TWICE DAILY (IN THE MORNING and BEFORE bedtime) * TAKE in addition to 100 mg * 60 tablet 2 03/05/2024 05/10/2024 Discontinued (Therapy completed) Start: 02-28-2024 End: 01-25-2025 Lamotrigine 150 mg tablet Ac tive MG PO December 13, 2024 12:00am Complies with drug therapy Start: 01-01-2024 take 1 tablet by renee th twice daily lamoTRIgine 25 MG tablet Take 1 tablet by mouth Twice daily. 01/01/2024 Active Start: 12-11-2023 End: 12-10-2024 take 1 tablet by mouth in the morning lamoTRIgine (LaMICtal) 100 MG tablet Indications: Epilepsy, unspecified, not intractable, without status epilepticus (CMS/HCC) Take 1 tablet (100 mg) by mouth in the morning and 1 tablet (100 mg) before bedtime. 180 tablet 3 12/11/2023 05/10/2024 Discontinued (Therapy completed) Start: 07-05-2022 take 3 tablets by mo uth at bedtime lamoTRIgine (LAMICTAL) 25 MG tablet Take 3 tablets by mouth in the morning and at bedtime 30 tablet 07/05/2022 Active Start: 06-27-2022 lamoTRIgine (L AMICTAL) [...] 0 Start Date: 07/21/21 Status: Ordered End: 04-08-2024 lamoTRIgine (LAMICTAL) 100 m g tablet Take 125 mg by mouth two times a day. 04/08/2024 Discontinued (Dosage adjustment) End: 07-05-2022 take 2 tablets by mouth once daily lamoTRIgine (LAMICTAL) 25 MG tablet Take 50 mg by mouth daily 0 07/05/2022 Discontinued (Stop Taking at Discharge) lidocaine 0.04 mg/mg medicated patch (5 sources) Antiarrhythmic, Amide Local Anesthetic Start: 01-20-2023 Lidocaine 4 % patch Indications: Neuropathic pain Place 2 patches on the skin as needed at bedtime (at bedtime as needed for pain). 60 patch 5 01/20/2023 Active meloxicam 15 mg oral tablet (3 sources) Nonsteroidal Anti-inflammatory Drug Start: 12-13-2024 take 1 tablet by mouth once daily Meloxicam 15 mg tablet Active 15 MG PO Daily December 13, 2024 12:00am Complies with drug therapy Start: 08-23-2018 End: 10-26-2019 take 1 tablet by mouth once daily as needed for pain meloxicam (MOBIC) 15 MG tablet Take 1 tablet by mouth daily as needed for Pain 30 tablet 1 08/23/2018 10/26/2019 Discontinued (Therapy completed) metFORMIN hydrochloride 500 mg oral tablet (2 sources) Biguanide Start: 12-13-2024 take 1 tablet by mouth twice daily Metformin 500 mg tablet Active 500 MG PO Twice daily December 13, 2024 12:00am Complies with drug therapy 24 hr nicotine 0.875 mg/hr transdermal system [...] tablet (20 sources) Serotonin-3 Receptor Antagonist Start: 12-13-2024 Ondansetron 4 mg tablet,disintegrating Active MG PO December 13, 2024 12:00am Complies with drug therapy Start: 01-16-2024 take 1 tablet by renee th every six hours as needed for nausea and vomiting ondansetron ODT (Zofran-ODT) 4 MG disintegrating tablet DISSOLVE 1 TABLET BY MOUTH EVERY 6 (SIX) HOURS NEEDED FOR NAUSEA and FOR VOMITING 01/16/2024 Active Start: 03-08-2023 ondansetron (Z OFRAN-ODT) 4 MG disintegrating tablet DISSOLVE 1 TABLET [...] 1 12/20/2017 Active 24 hr oxybutynin chloride 10 mg extended release oral tablet (20 sources) Cholinergic Muscarinic Antagonist Start: 12-13-2024 take 1 tablet by mouth every twenty-four hours Oxybutynin Chloride 10 mg tablet extended release 24hr Active MG PO December 13, 2024 12:00am Complies with drug therapy Start: 02-13-2024 take 1 tablet by renee th once daily oxybutynin XL (Ditropan-XL) 10 MG 24 hr tablet Take 10 mg by mouth Daily 02/13/2024 Active Start: 02-03-2023 take 1 tablet by renee th once daily oxybutynin (DITROPAN XL) 5 MG extended release tablet Take 1 tablet by mouth daily 30 tablet 3 02/03/2023 Active Start: 07-28-2022 End: 02-20-2024 oxybutynin (DITROPAN) 5 MG t ablet oxyCODONE hydrochloride 5 mg oral tablet (11 sources) Opioid Agonist Start: 01-20-2023 End: 02-20-2024 take 1 tablet by mouth every six [...] pantoprazole 40 mg delayed release oral tablet (20 sources) Proton Pump Inhibitor Start: 05-23-2023 take 1 tablet by mouth once daily before breakfast pantoprazole (PROTONIX) 40 MG tablet Take 1 tablet by mouth every morning (before breakfast) 30 tablet 3 05/23/2023 Active phentermine hydrochloride 37.5 mg oral capsule (20 sources) Sympathomimetic Amine Anorectic Start: 12-13-2024 take 1 capsule by mouth once daily 30 minutes after breakfast Phentermine 37.5 mg capsule Active 37.5 MG PO Daily December 13, 2024 12:00am must administer 30 minutes before or 1-2 hours after breakfast Complies with drug therapy Start: 02-01-2024 take 1 tablet by renee once daily phentermine (Adipex-P) 37.5 MG tablet Take 37.5 mg by mouth Daily 02/01/2024 Active End: 08-27-2024 phentermine HCl (ADIPEX-P OR AL) Take by mouth once daily. 08/27/2024 Discontinued phentermine HCl (ADIPEX-P ORAL) Take by mouth once daily. Active take 1 capsule by mo [facility] once daily Phentermine HCl 37.5 MG capsule Take 1 capsule by mouth daily. Active phentermine HCl (ADIPEX-P ORAL) Take by mouth once daily. 0 Active Pnv Plus Multivitamin 27-1 Mg Po Tabs (2 sources) Start: 11-22-2017 take 1 tablet by mouth once daily Vit-Fe Fumarate-FA (PNV PLUS MULTIVITAMIN) 27-1 MG Tab Take 1 tablet by mouth daily. 3 11/22/2017 Active pregabalin 300 mg oral capsule (20 sources) Start: 12-13-2023 Pregabalin 300 mg capsule Active MG PO December 13, 2024 12:00am Complies with drug therapy Start: 01-20-2023 End: 02-20-2024 take 1 capsule by mouth in the morning pregabalin (Lyrica) 150 MG capsule Indications: Neuropathic pain , Neuropathy Take 1 capsule (150 mg) by mouth in the morning and 1 capsule (150 mg) before bedtime. 60 capsule 5 01/20/2023 02/20/2024 Discontinued 28-0.8 Mg Po Tabs (2 sources) take 1 tablet by mouth once daily 28-0.8 MG Tab tablet Take 1 tablet by mouth daily. Active QUEtiapine 100 mg oral tablet (20 sources) Atypical Antipsychotic Start: take 1 tablet by mouth once daily Quetiapine 100 mg tablet Active 100 MG PO Daily December 13, 2024 12:00am Complies with drug therapy Start: 12-13-2024 take 1 tablet by renee th once daily Quetiapine 300 mg tablet Active 300 MG PO Daily December 13, 2024 12:00am Complies with drug therapy Start: 02-19-2024 QUEtiapine (SE ROquel) 200 MG tablet 02/19/2024 Active Start: 03-08-2023 End: 02-20-2024 take 1 tablet by mouth at bedtime QUEtiapine (SEROquel) 50 MG tablet Indications: Other muscle spasm Take 1 tablet (50 mg) by mouth at bedtime. 90 tablet 1 03/08/2023 02/20/2024 Discontinued Start: 12-01-2022 End: 02-20-2024 QUEtiapine (SEROQUEL) 25 MG tablet 12/01/2022 Active Start: 07-05-2022 take 1 tablet by renee th twice daily QUEtiapine (SEROQUEL) 50 MG tablet Take 1 tablet by mouth 2 times daily 60 tablet 0 07/05/2022 Active Start: 07-01-2022 QUEtiapine (SE ROQUEL) tablet 50 mg End: 08-27-2024 take 2 tablets by mouth once daily at bedtime QUEtiapine (SEROQUEL) 100 mg tablet Take 200 mg by mouth daily at bedtime. 08/27/2024 Discontinued take 1 tablet by renee th once daily at bedtime QUEtiapine (SEROQUEL) 100 mg tablet Take 100 mg by mouth daily at bedtime. Active QUEtiapine Fumar ate (SEROQUEL PO) Take by mouth. Active QUEtiapine Fumar ate (SEROQUEL PO) Take by mouth. 0 Active sertraline 50 mg oral tablet (20 sources) Serotonin Reuptake Inhibitor Start: 12-13-2024 take 1 tablet by mouth once daily Sertraline 50 mg tablet Active 50 MG PO Daily December 13, 2024 12:00am Complies with drug therapy Start: 02-13-2024 take 1 tablet by renee th once daily sertraline (Zoloft) 50 MG tablet TAKE 1 & 1/2 (ONE AND ONE-HALF) TABLETS BY MOUTH DAILY 02/13/2024 Active End: 08-27-2024 take 1 tablet by mouth once daily sertraline (ZOLOFT) 25 mg tablet Take 25 mg by mouth once daily. 08/27/2024 Discontinued sodium chloride 1000 mg oral tablet (5 sources) Start: 07-07-2022 sodium chlorid e tablet 1 g Start: 06-27-2022 End: 06-27-2022 0.9 % sodium chloride infusi on Start: 06-26-2022 End: 07-06-2022 sodium chloride flush 0.9 % injection 5-40 mL Start: 06-26-2022 End: 06-26-2022 Sodium chloride 0.9% IV solu tion 500 mL tiZANidine 4 mg oral capsule (19 sources) Central alpha-2 Adrenergic Agonist Start: 12-13-2024 take 1 capsule by mouth once daily at bedtime as needed Tizanidine 4 mg capsule Active 4 MG PO Daily at bedtime as needed December 13, 2024 12:00am Complies with drug therapy Start: 11-17-2023 End: 04-08-2024 take 1 mg by mouth every six hours as needed tiZANidine (ZANAFLEX) 2 mg tablet Take 0.5 tablets by mouth every 6 hours as needed. 180 tablet 11/17/2023 04/08/2024 Discontinued (Course of therapy completed) take 1 tablet by renee th every six hours as needed tiZANidine (ZANAFLEX) 4 MG tablet Take 1 tablet by mouth every 6 hours as needed 0 Active zonisamide 100 mg oral capsule (20 sources) Anti-epileptic Agent Start: 10-08-2024 End: 04-06-2025 take 2 capsules by mouth once daily at bedtime zonisamide (ZONEGRAN) 100 mg capsule Indications: Generalized-onset seizures (HCC) Take 2 capsules by mouth daily at bedtime. 60 capsule 5 10/08/2024 04/06/2025 Active Start: 04-12-2024 End: 10-16-2024 take 1 capsule by mouth once daily at bedtime, then take 2 capsules by mouth once daily at bedtime zonisamide (ZONEGRAN) 100 mg capsule Take 1 capsule by mouth daily at bedtime for 7 days, THEN 2 capsules daily at bedtime. 60 capsule 5 04/12/2024 10/08/2024 Discontinued Completed/Discontinued Medications Medication Drug Class(es) Dates Sig (Normalized) Sig (Original) aluminum hydroxide 40 mg/ml / magnesium hydroxide 40 mg/ml / simethicone 4 mg/ml oral suspension (5 sources) Start: 07-28-2022 End: 05-10-2024 take 20 mL by mouth every four hours as needed for gastroesophageal reflux disease aluminum & magnesium hydroxide-simethic one (Mylanta) 200-200-20 MG/5ML oral suspension Take 20 mL by mouth every 4 (four) hours if needed for indigestion or heartburn. 07/28/2022 05/10/2024 Discontinued (Therapy completed) aspirin/acetaminop hen/caffeine (EXCEDRIN EXTRA STRENGTH ORAL) (20 sources) End: 08-27-2024 aspirin/acetaminop hen/caffeine (EXCEDRIN EXTRA STRENGTH ORAL) Take by mouth two times a day. 08/27/2024 Discontinued aspirin/acetamin ophen/caffeine (EXCEDRIN EXTRA STRENGTH ORAL) Take by mouth two times a day. Active aspirin/acetamin ophen/caffeine (EXCEDRIN EXTRA STRENGTH ORAL) Take by mouth two times a day. 0 Active calcium chloride 0.0014 meq/ml / potassium chloride 0.004 meq/ml / sodium chloride 0.103 meq/ml / sodium lactate 0.028 meq/ml injectable solution (1 source) Start: 06-27-2022 End: 06-27-2022 lactated ringers bolus clonazePAM 0.5 mg disintegrating oral tablet (2 sources) Benzodiazepine Start: 04-12-2024 End: 04-15-2024 take 1 tablet by mouth twice daily as needed clonazePAM orally disintegrating (KLONOPIN WAFER) 0.5 mg disintegrating tablet Indications: Generalized convulsive epilepsy (HCC) Take 1 tablet by mouth two times a day as needed (for prolonged seizure or cluster of seizures) for up to 30 days. 5 tablet 04/12/2024 04/15/2024 Discontinued cyclobenzaprine hydrochloride 10 mg oral tablet (2 sources) Muscle Relaxant Start: 06-27-2022 End: 06-30-2022 cyclobenzaprine (FLEXERIL) tablet 10 mg diazePAM 5 mg oral tablet (1 source) Benzodiazepine Start: 06-30-2022 End: 07-02-2022 diazePAM (VALIUM) tablet 5 mg 1 ml diphenhydrAMINE hydrochloride 50 mg/ml cartridge (10 sources) Histamine-1 Receptor Antagonist Start: 06-26-2022 End: 06-26-2022 diphenhydrAMINE (BENADRYL) injection 25 mg End: 05-10-2024 diphenhydrAMINE (Sominex) 25 MG tablet Take 1 tablet by mouth as needed at bedtime for itching or allergies. 05/10/2024 Discontinued (Therapy completed) escitalopram 10 mg oral tablet (16 sources) Serotonin Reuptake Inhibitor Start: 04-12-2023 End: 05-10-2024 take 1 tablet by mouth once daily escitalopram (Lexapro) 10 MG tablet Indications: Moderate episode of recurrent major depressive disorder (CMS/HCC) TAKE 1 TABLET BY MOUTH EVERY DAY 90 tablet 3 04/12/2023 05/10/2024 Discontinued (Therapy completed) Start: 10-01-2022 take 1 tablet by renee th in the morning escitalopram (Lexapro) 20 MG tablet Indications: Other muscle spasm , Moderate episode of recurrent major depressive disorder (HCC) (CMS/HCC) Take 1 tablet (20 mg) by mouth in the morning. 90 tablet 1 03/08/2023 Active Start: 06-26-2022 End: 06-27-2022 take 1 tablet by mouth once daily escitalopram (LEXAPRO) 10 MG tablet Take 1 tablet by mouth daily 30 tablet 0 07/06/2022 Active Start: 02-03-2020 take 1 mg by mouth once daily escitalopram 10 mg Tab mg tab(s), Oral, Daily, Refills(s) 0 Start Date: 02/03/20 Status: Ordered famotidine 20 mg oral tablet (6 sources) [...] in dextrose 5 % 100 mL IVPB melatonin 3 mg oral tablet (20 sources) Start: 07-28-2022 End: 05-10-2024 take 2 tablets by mouth at bedtime melatonin 3 MG tablet Take 6 mg by mouth at bedtime. 07/28/2022 05/10/2024 Discontinued (Therapy completed) Start: 06-30-2022 take 1 tablet by renee th once daily melatonin 5 MG TABS tablet Take 1 tablet by mouth nightly 30 tablet 07/05/2022 Active Start: 06-28-2022 End: 06-30-2022 melatonin tablet 10 mg Melatonin 5 MG T ab Dispersible tablet Take 5 mg by mouth As directed as needed. Active End: 10-26-2019 take 1 mg by mouth once daily as needed melatonin 3 MG TABS tablet Take 1 mg by mouth nightly as needed 0 10/26/2019 Discontinued (Patient Choice) menthol 0.05 mg/mg topical gel (5 sources) Start: 07-28-2022 End: 05-10-2024 apply 5 mL topically every twenty-four hours as needed Menthol, Topical Analgesic, 5 % gel Apply 5 mL topically Daily as needed. 07/28/2022 05/10/2024 Discontinued (Therapy completed) methocarbamol 750 mg oral tablet (2 sources) Muscle Relaxant Start: 07-02-2022 End: 07-03-2022 methocarbamol (ROBAXIN) tablet 750 mg Start: 06-26-2022 End: 06-27-2022 methocarbamol (ROBAXIN) tabl et 750 mg 1 ml morphine sulfate 4 mg/ml cartridge (1 source) Opioid Agonist Start: 06-26-2022 End: 06-26-2022 morphine injection 2 mg Start: 06-26-2022 End: 06-26-2022 morphine injection 2 mg nystatin 100 unt/mg topical powder (5 sources) Polyene Antifungal Start: 08-24-2022 End: 05-10-2024 Nyamyc [id number] UNIT/GM powder Apply 1 application topically in the morning and 1 application before bedtime. 08/24/2022 05/10/2024 Discontinued (Therapy completed) penicillin v potassium 250 mg oral tablet (3 sources) Start: 10-26-2019 End: 10-26-2019 penicillin v potassium (VEETID) tablet 500 mg Start: 10-26-2019 End: 11-02-2019 take 1 tablet by mouth four times daily penicillin v potassium (VEETID) 500 MG tablet Take 1 tablet by mouth 4 times daily for 7 days 28 tablet 0 10/26/2019 11/02/2019 Active polyethylene glycol 3350 [id number] mg powder for oral solution (11 sources) Osmotic Laxative Start: 01-20-2023 End: 05-10-2024 polyethylene glycol, PEG, 3350 (Glycolax) 17 GM/SCOOP powder Indications: Drug-induced constipation Take 17 g by mouth in the morning. 510 g 5 01/20/2023 05/10/2024 Discontinued (Therapy completed) Start: 06-26-2022 End: 08-05-2022 polyethylene glycol (GLYCOLA X) 17 GM/SCOOP powder Take by mouth daily 0 07/28/2022 Active microencapsulated potassium chloride 20 meq extended [...] 0 07/05/2022 Discontinued (Stop Taking at Discharge) traMADol hydrochloride 50 mg oral tablet (20 sources) Opioid Agonist Start: 02-15-2024 End: 05-10-2024 traMADol (Ultram) 50 MG tablet Take 50 mg by mouth every 12 (twelve) hours if needed 02/15/2024 05/10/2024 Discontinued Start: 02-15-2024 take 1 tablet by renee th every six hours as needed traMADol 50 MG tablet Take 1 tablet by mouth every 6 hours as needed. 02/15/2024 Active End: 04-08-2024 take 100 mg by mouth once daily traMADol 100 mg TM24 T yoanna 100 mg by mouth once daily. 04/08/2024 Discontinued (Course of therapy completed) End: 04-08-2024 take 2 tablets by mouth twice daily traMADol 25 mg tablet Take 50 mg by mouth two times a day. 04/08/2024 Discontinued (Course of therapy completed) take 2 tablets by mo uth twice daily traMADol 25 mg tablet Take 50 mg by mouth two times a day. Active take 2 tablets by mo uth twice daily traMADol 25 mg tablet Take 50 mg by mouth two times a day. 0 Active take 1 tablet by renee th twice daily traMADol 25 mg tablet Take 25 mg by mouth two times a day. 0 Active Problems Active Problems Problem Classification Problem Date Documented Da te Episodic/Chronic Anxiety disorders (20 sources) Mixed anxiety and depressive disorder; Translations: [Anxiety disorder, unspecified] Onset: 01-19-2023 04-08-2024 Chronic Asthma (20 sources) Mild intermittent asthma; Translations: [Mild intermittent asthma, uncomplicated] Onset: 10-23-2018 04-08-2024 Chronic Diseases of mouth; excluding dental (1 source) Painful mouth; Translations: [Chronic dental pain] Episodic Disorders of lipid metabolism (6 sources) Mixed hyperlipidemia; Translations: [Mixed hyperlipidemia] Onset: 07-19-2024 01-09-2024 Chronic Epilepsy; convulsions (20 sources) Recurrent seizure; Translations: [Epilepsy, unspecified, not intractable, without status epilepticus] Onset: 07-11-2022 01-23-2024 Chronic Female infertility (4 sources) Female infertility, unspecified; Translations: [FEMALE INFERTILITY UNSPECIFIED] Onset: 01-12-2022 Chronic Fracture of lower limb (18 sources) Closed fracture patella, transverse ; Translations: [Nondisplaced transverse fracture of left patella, subsequent encounter for closed fracture with routine healing] Onset: 09-16-2024 05-10-2024 Episodic Genitourinary symptoms and ill-defined conditions (7 sources) Urinary tract obstruction; Translations: [Obstructive and reflux uropathy, unspecified] Onset: 01-19-2023 01-19-2023 Episodic Hemorrhage during ; abruptio placenta; placenta previa (1 source) Hemorrhage in early , unspecified; Translations: [Hemorrhage in early , unspecified] Onset: 11-15-2017 Episodic Hepatitis (20 sources) Chronic viral hepatitis C; Translations: [Chronic hepatitis C] Onset: 09-17-2021 Chronic Hepatitis (2 sources) Viral hepatitis C 02-03-2020 Episodic Malaise and fatigue (5 sources) Asthenia; Translations: [Weakness] Onset: 2023 2023 Episodic Menstrual disorders (4 sources) Amenorrhea, unspecified; Translations: [Menometrorrhagia] Onset: 02-23-2017 Chronic Mood disorders (20 sources) Severe recurrent major depression without psychotic features; Translations: [Moderate manic bipolar I disorder] Onset: 10-22-2018 04-08-2024 Chronic Nausea and vomiting (2 sources) Nausea; Translations: [Nausea] Onset: 10-24-2017 Episodic Osteoporosis (5 sources) Idiopathic osteoporosis; Translations: [Other osteoporosis without current pathological fracture] Onset: 08-01-2024 01-09-2024 Chronic Other complications of (2 sources) Mild hyperemesis gravidarum; Translations: [Vomiting of , unspecified] Onset: 10-24-2017 Episodic Other congenital anomalies (3 sources) Other congenital malformations of spine, not associated with scoliosis; Translations: [Other congenital malformations of spine, not associated with scoliosis] Onset: 06-28-2023 Chronic Other connective tissue disease (2 sources) Orthopedic hardware in situ; Translations: [Presence of other bone and tendon implants] 07-19-2024 Chronic Other connective tissue disease (1 source) Presence of other bone and tendon implants; Translations: [Fixation hardware in spine] Onset: 07-19-2024 Chronic Other connective tissue disease (1 source) Spasticity; Translations: [Cramp and spasm] 11-20-2023 Episodic Other diseases of bladder and urethra (6 sources) Neurogenic bladder; Translations: [Neuromuscular dysfunction of bladder, unspecified] 01-09-2024 Chronic Other diseases of bladder and urethra (1 source) Neuromuscular dysfunction of bladder, unspecified; Translations: [Neurogenic bladder] Onset: 02-08-2024 Chronic Other diseases of kidney and ureters (1 source) Renal impairment; Translations: [Disorder of kidney and ureter, unspecified] 09-27-2024 Episodic Other endocrine disorders (5 sources) Polycystic ovary syndrome; Translations: [Polycystic ovarian syndrome] Onset: 01-19-2023 01-19-2023 Chronic Other female genital disorders (2 sources) [...] vertebra, sequela] 02-08-2024 Episodic Other gastrointestinal disorders (7 sources) Neurogenic bowel; Translations: [Neurogenic bowel, not elsewhere classified] Onset: 01-19-2023 01-09-2024 Chronic Other gastrointestinal disorders (1 source) Neurogenic bowel, not elsewhere classified; Translations: [Neurogenic bowel] Onset: 01-31-2024 Chronic Other gastrointestinal disorders (7 sources) Constipation; Translations: [Constipation, unspecified] Onset: 01-19-2023 11-21-2023 Episodic Other injuries and conditions due to external causes (1 source) History of fall; Translations: [History of falling] 04-17-2024 Episodic Other injuries and conditions due to external causes (1 source) History of spinal cord injury; Translations: [Personal history of other (healed) physical injury and trauma] 04-17-2024 Episodic Other nervous system disorders (1 source) Other chronic pain Onset: 08-23-2018 Chronic Other nervous system disorders (5 sources) Neuropathy; Translations: [Polyneuropathy, unspecified] Onset: 01-19-2023 01-19-2023 Chronic Other nervous system disorders (1 source) Other chronic pain; Translations: [Other chronic pain] Onset: 10-11-2024 Chronic Other nervous system disorders (2 sources) Abnormal gait; Translations: [Unspecified abnormalities of gait and mobility] 07-22-2024 Episodic Other non-traumatic joint disorders (1 source) Effusion of joint of left knee; Translations: [Effusion, left knee] 01-09-2024 Episodic Other non-traumatic joint disorders (5 sources) Pain in left knee; Translations: [Pain in joint, lower leg] 01-09-2024 Episodic Other non-traumatic joint disorders (1 source) Pain in left ankle and joints of left foot; Translations: [Pain in left ankle and joints of left foot] Onset: 11-24-2024 Episodic Other nutritional; endocrine; and metabolic disorders (5 sources) Obesity, unspecified; Translations: [Obese class II] Onset: 07-16-2018 07-16-2018 Chronic Other nutritional; endocrine; and metabolic disorders (5 sources) Obese class I; Translations: [Class 1 obesity] Onset: 03-26-2020 01-20-2023 Chronic Other nutritional; endocrine; and metabolic disorders (3 sources) Obese class II; Translations: [Obesity, Class II, BMI 35-39.9] Onset: 07-16-2018 07-16-2018 Other upper respiratory infections (1 source) Acute upper respiratory infection; Translations: [Acute upper respiratory infection] Episodic Paralysis (20 sources) Complete paraplegia; Translations: [Paraplegia, complete] Onset: 06-26-2022 Chronic Pathological fracture (5 sources) Pathological fracture; Translations: [Pathological fracture, other [...] (pediatric)] Onset: 05-05-2023 Chronic Residual codes; unclassified (20 sources) Obstructive sleep apnea syndrome; Translations: [Obstructive sleep apnea (adult) (pediatric)] Onset: 12-04-2023 04-08-2024 Chronic Residual codes; unclassified (1 source) H/O Spinal surgery; Translations: [Other specified postprocedural states] 02-08-2024 Episodic Residual codes; unclassified (1 source) At risk of disease; Translations: [Other specified personal risk factors, not elsewhere classified] 07-22-2024 Episodic Spinal cord injury (20 sources) Injury of lumbar spinal cord; Translations: [Unspecified injury to L1 level of lumbar spinal cord, initial encounter] Onset: 06-26-2022 01-10-2023 Chronic Spondylosis; intervertebral disc disorders; other back problems (12 sources) Other intervertebral disc displacement, lumbar region; Translations: [Other intervertebral disc degeneration, lumbar region] Onset: 10-19-2017 01-19-2023 Chronic Sprains and strains (9 sources) Strain of muscle, fascia and tendon of lower back, initial encounter; Translations: [Strain of muscle, fascia and tendon at neck level, initial encounter] Onset: 10-19-2017 11-24-2024 Episodic Substance-related disorders (10 sources) Nicotine dependence, unspecified, uncomplicated; Translations: [Amphetamine abuse, episodic] Onset: 08-15-2017 04-16-2020 Chronic Comment on above: Added secondary to d ocumentation in Social History. Superficial injury; contusion (3 sources) Contusion of left knee; Translations: [Contusion of left knee, initial encounter] 11-24-2024 Episodic Unclassified (2 sources) 9 weeks gestation of ; Translations: [Weeks of gestation of not specified] Onset: 10-24-2017 Unclassified (1 source) Unknown / UNK(Unknown) Onset: 06-30-2017 Unclassified (1 source) Myalgia, other site Onset: 10-18-2018 Unclassified (1 source) Myalgia, unspecified site Onset: 09-06-2018 Unclassified (1 source) Contusion of head; Translations: [Contusion of head, unspecified part of head, initial encounter] Unclassified (1 source) Low back pain, unspecified back pain laterality, unspecified chronicity, unspecified whether sciatica present; Translations: [Low back pain, unspecified back pain laterality, unspecified chronicity, unspecified whether sciatica present] Onset: 04-08-2024 Past or Other Problems Problem Classification Problem Date Documented Da te Episodic/Chronic Abdominal pain (2 sources) Unspecified abdominal pain; Translations: [Unspecified abdominal pain] Onset: 06-30-2017 Episodic Conditions associated with dizziness or vertigo (3 sources) Dizziness and giddiness; Translations: [Dizziness and giddiness] Onset: 08-15-2017 Episodic Epilepsy; convulsions (20 sources) Seizure; Translations: [Unspecified convulsions] Onset: 06-03-2022 Episodic Fever of unknown origin (1 source) Fever, unspecified; Translations: [Fever, unspecified] Onset: 08-15-2017 Episodic Influenza (1 source) Influenza due to unidentified influenza virus with other respiratory manifestations; Translations: [Flu due to unidentified influenza virus w oth resp manifest] Onset: 08-15-2017 Episodic Nonspecific chest pain (9 sources) Chest pain, unspecified; Translations: [Chest wall pain] Onset: 08-15-2017 02-03-2020 Episodic Other bone disease and musculoskeletal deformities (20 sources) Osteopenia; Translations: [Other specified disorders of bone density and structure, unspecified site] Onset: 04-08-2024 04-08-2024 Episodic Other connective tissue disease (20 sources) Neuropathic pain; Translations: [Neuralgia and neuritis, unspecified] Onset: 01-10-2023 01-10-2023 Episodic Other connective tissue disease (5 sources) Spasm; Translations: [Other muscle spasm] Onset: 12-01-2022 12-01-2022 Episodic Other connective tissue disease (1 source) Neuralgia and neuritis, unspecified; Translations: [Neuropathic pain] Onset: 02-08-2024 Episodic Other fractures (20 sources) Fracture of twelfth thoracic vertebra; Translations: [Wedge compression fracture of T11-T12 vertebra, initial encounter for closed fracture] Onset: 06-26-2022 Episodic Other fractures (5 sources) Wedge compression fracture of first lumbar vertebra, initial encounter for closed fracture; Translations: [Wedge compression fracture of first lumbar vertebra, initial encounter for closed fracture] Onset: 06-26-2022 Episodic Other fractures (20 sources) Compression fracture of lumbar spine; Translations: [Wedge compression fracture of first lumbar vertebra, initial encounter for closed fracture] Onset: 06-26-2022 Episodic Other fractures (20 sources) Closed fracture lumbar vertebra, burst ; [...] with routine healing] Onset: 07-06-2022 Episodic Other injuries and conditions due to external causes (2 sources) Bone injury; Translations: [Other injury of unspecified body region, initial encounter] 02-20-2024 Episodic Other injuries and conditions due to external causes (1 source) History of falling; Translations: [History of recent fall] Onset: 04-08-2024 Episodic Other injuries and conditions due to external causes (1 source) Personal history of other (healed) physical injury and trauma; Translations: [History of spinal cord injury] Onset: 04-08-2024 Episodic Other lower respiratory disease (1 source) Shortness of breath; Translations: [Shortness of breath] Onset: 08-15-2017 Episodic Other nervous system disorders (1 source) Other acute postprocedural pain; Translations: [Other acute postprocedural pain] Onset: 05-05-2023 Episodic Other non-traumatic joint disorders (7 sources) Joint pain; Translations: [Pain in unspecified joint] Onset: 01-20-2023 02-03-2020 Episodic Pleurisy; pneumothorax; pulmonary collapse (1 source) Hemothorax; Translations: [Hemothorax] Onset: 05-05-2023 Episodic Residual codes; unclassified (2 sources) Personal history of other specified conditions; Translations: [Personal history of other specified diseases] Onset: 04-08-2024 04-17-2024 Episodic Residual codes; unclassified (5 sources) Insomnia; Translations: [Insomnia, unspecified] Onset: 01-19-2023 01-19-2023 Episodic Residual codes; unclassified (5 sources) History of operative procedure on lumbar spinal structure; Translations: [Other specified postprocedural states] Onset: 07-08-2022 01-20-2023 Episodic Spinal cord injury (5 sources) Cervical spinal cord injury; Translations: [Unspecified injury at unspecified level of cervical spinal cord, subsequent encounter] Onset: 12-01-2022 12-01-2022 Episodic Spondylosis; intervertebral disc disorders; other back [...] Test Name Value Interpretation Reference Range Facility X-ray reportOrdered By: Jovan Dukes on 02-12-2025 Study report [facility] [address] [place] [address] XRay Report Signed Patient: Kayleen Kovacs MR# : [id number] : 1995 Acct:[id number] Age/Sex: 29 / F ADM Date: 5 Loc: [facility] Room: Type: [facility] CLI Attending Dr: Nik Ramirez DO Copies to: Nik Ramirez DO~ Ordering Provider: Nik Ramirez DO Date of Service: 02/12/25 XR/XR ankle LT min 3V*: S82.392A - Other fracture of lower end of left tibia, ini... LEFT ANKLE - 3 views CLINICAL HISTORY: Left ankle pain status post fall COMPARISON: Left ankle 11/24/2024 FINDINGS: Mild soft tissue swelling. Ankle mortise appears intact. No displaced ankle fracture is seen. Bones are grossly demineralized. XR/XR ankle LT min 3V* IMPRESSION: SOFT TISSUE SWELLING WITHOUT ACUTE BONY PROCESS. Impression dictated by: Argelia Morelos Jr.ODavian 02/12/2025 9:46 PM Dictation Location: RADIO-PC-18 Transcribed By: JOSETTE 02/12/252145 Dictated By: Mateusz Dukes Jr DO 02/12/252144 Signed By: 02/12/252145 [facility] XR ankle LT min 3V*on 2024 XR ankle LT min 3V* [facility] [address] [place] [address] XRay Report Signed Patient: Kayleen Kovacs MR#: [id number] : 1995 Acct:[id number] Age/Sex: 29 / F ADM Date: 02/12/25 [place] [facility] [place]: Type: [facility] Attending Dr: Nik Ramirez DO Copies to: Nik Ramirez DO Ordering Provider: Nik Ramirez DO Date of Service: 02/12/25 XR/XR ankle LT min 3V*: S82.392A - Other fracture of lower end of left tibia, ini... LEFT ANKLE - 3 views CLINICAL HISTORY: Left ankle pain status post fall COMPARISON: Left ankle 11/24/2024 FINDINGS: Mild soft tissue swelling. Ankle mortise appears intact. No displaced ankle fracture is seen. Bones are grossly demineralized. XR/XR ankle LT min 3V* IMPRESSION: SOFT TISSUE SWELLING WITHOUT ACUTE BONY PROCESS. Impression dictated by: Emely Morelos Jr..ODavian 02/12/2025 9:46 PM Dictation Location: RADIO-PC-18 Transcribed By: PWS 02/12/252145 Dictated By: Mateusz Dukes Jr DO 02/12/252144 Signed By: 02/12/252145 Normal [facility] Ambulatory Visit Summaryon 0 12-18-2024 Ambulatory Visit Summary Ambulatory Visit Summary KAYLEEN KOVACS :1995 Visit Date:12/18/2024 Ambulatory Visit Instructions Your Care Team Attending Physician - Earline Koroma Primary Care Physician - Earline Koroma This Is Your Medications List Misc Prescription (LIFT CHAIR) ascorbic acid (Vitamin C 500 mg Tab) baclofen (baclofen 20 mg Tab) buprenorphine-naloxone (Suboxone 8 mg-2 mg sublingual film) busPIRone (busPIRone 30 mg oral tablet) clonidine (cloNIDine 0.3 mg Tab) duloxetine (Cymbalta 20 mg oral delayed release capsule) duloxetine (duloxetine 30 mg oral delayed release capsule) ergocalciferol (Vitamin D 50,000 intl units (1.25 mg) oral capsule) etodolac (etodolac 400 mg Tab) ibuprofen (ibuprofen 800 mg Tab) lamotrigine (lamotrigine 100 mg Tab) lamotrigine (lamotrigine 150 mg Tab) meloxicam (meloxicam 15 mg Tab) metformin (metformin 500 mg Tab) ondansetron (ondansetron 4 mg Dis Tab) oxybutynin (oxybutynin 10 mg ER Tab) phentermine (phentermine 37.5 mg Tab) pregabalin (pregabalin 300 mg Cap) quetiapine (quetiapine 100 mg Tab) quetiapine (quetiapine 300 mg oral ER Tab) sertraline (sertraline 50 mg Tab) tizanidine (tiZANidine 4 mg Tab) Procedures Performed Spinal fusion (2022), section, Tonsillectomy. Discharge Vitals Temperature (Oral) 36.3 ???C Heart Rate (Peripheral) 81 Respiratory Rate 18 Blood Pressure 122/82 Height 175.0 cm Height 69 in Weight 93.0 kg Weight 205.03 lb BMI 30.37 Medications What How Much When Why Instructions Unchanged ascorbic acid (Vitamin C 500 mg Tab) 1 Tablets By Mouth Every day Back pain with history of spinal surgery Pain management Back pain Paraplegia Unchanged baclofen (baclofen 20 mg Tab) 1 Tablets By Mouth 3 times a day Pain management Paraplegia Fracture of patella Duration: 90 Days Unchanged buprenorphine-naloxone (Suboxone 8 mg-2 mg sublingual film) DISSOLVE 1 film UNDER THE TONGUE EVERY DAY Unchanged busPIRone (busPIRone 30 mg oral tablet) 1 Tablets By Mouth 2 times a day Unchanged clonidine (cloNIDine 0.3 mg Tab) See instructions TAKE 1 TABLET BY MOUTH TWICE DAILY Unchanged duloxetine (Cymbalta 20 mg oral delayed release capsule) 1 Capsules By Mouth Once a day (at bedtime) Unchanged duloxetine (duloxetine 30 mg oral delayed release capsule) TAKE 1 TABLET BY MOUTH DAILY Unchanged ergocalciferol (Vitamin D 50,000 intl units (1.25 mg) oral capsule) 1 Capsules By Mouth Every week Back pain with history of spinal surgery Pain management Back pain Paraplegia Unchanged etodolac (etodolac 400 mg Tab) 1 Tablets By Mouth 2 times a day Unchanged ibuprofen (ibuprofen 800 mg Tab) See instructions TAKE 1 TABLET BY MOUTH EVERY 8 HOURS Unchanged lamotrigine (lamotrigine 100 mg Tab) Unchanged lamotrigine (lamotrigine 150 mg Tab) 1 Tablets By Mouth 2 times a day TAKE 1 TABLET BY MOUTH TWICE DAILY Unchanged meloxicam (meloxicam 15 mg Tab) 1 Tablets By Mouth Every day Left ankle injury BMI 30.0-30.9,adult Smoker Unchanged metformin (metformin 500 mg Tab) 1 Tablets By Mouth 2 times a day PCOS (polycystic ovarian syndrome) Unchanged Misc Prescription (LIFT CHAIR) See instructions Paraplegia Seizure disorder Wheelchair dependent POWER LIFT CHAIR Unchanged ondansetron (ondansetron 4 mg Dis Tab) See instructions DISSOLVE 1 (ONE) TABLET ON THE TONGUE EVERY 6 HOURS NEEDED FOR NAUSEA AND VOMITING Unchanged oxybutynin (oxybutynin 10 mg ER Tab) See instructions TAKE 1 TABLET BY MOUTH DAILY Unchanged phentermine (phentermine 37.5 mg Tab) 1 Tablets By Mouth Every day Unchanged pregabalin (pregabalin 300 mg Cap) 1 Capsules By Mouth 2 times a day Back pain with history of spinal surgery Back pain 90 day supply Unchanged quetiapine (quetiapine 100 mg Tab) 1 Tablets By Mouth Every day Unchanged quetiapine (quetiapine 300 mg oral ER Tab) 1 Tablets By Mouth Every day Unchanged sertraline (sertraline 50 mg Tab) 1.5 Tablets By Mouth Every day Unchanged tizanidine (tiZANidine 4 mg Tab) See instructions 1 tab(s) Oral every 6 hours as needed Allergies Cymbalta (Suicide) hydrOXYzine (AOF, Eruption) propofol (Anaphylaxis) sodium hypochlorite topical (Unknown, Urticaria) Problems Ongoing - Any problem that you are currently receiving treatment for. Acute gastroenteritis Anxiety and depression Apnea Back pain Back pain with history of spinal surgery Bladder spasms BMI 30.0-30.9,adult BMI 32.0-32.9,adult Bronchitis Chronic hepatitis C Comminuted fracture of patella Constipation Diarrhea Encounter for weight management Gasping for breath H/O chest tube placement Hepatitis C Incomplete spinal cord syndrome Left ankle injury Left knee injury Left otitis media Obesity (BMI 30-39.9) Overweight (BMI 25.0-29.9) Pain management Paraplegia PCOS (polycystic ovarian syndrome) Rib pain on left side Right otitis media Right-sided chest wall pain Seizure d (more content not included)... Normal [facility] Family Medicine Office/Clini c Noteon 12-18-2024 Family Medicine Office/Clinic Note Family Medicine Office/Clinic Note Chief Complaint 12 HPI Staff Kayleen is a 29 year old female presenting for f/u left ankle swelling [facility] 11/28/24 referral to ortho appt. on 12/16/24 X ray done @ [facility] on 12/11/24 still sore, told not to put pressure without boot, with boot she can transfer wants her to stay in boot for 6 weeks Been taking Meloxicam but this is not helping History of Present Illness pt presents today for follow up on ankle francture Review of Systems PHQ Score Initial Depression Screen Score: 0 SCORE Physical Exam Vitals & Measurements T: 36.3 ???C(Oral) HR: 81(Peripheral) RR: 18 BP: 122/82 SpO2: 98% HT: 69 in HT: 175.0 cm WT: 205.03 lb WT: 93.0 kg BMI: 30.37 General: alert, no acute distress ENMT: oral mucosa moist, no pharyngeal erythema or exudate Cardiovascular: regular rate and rhythm, normal peripheral perfusion Respiratory: Lungs CTA, respirations non labored Extremities: no deformity, no trauma Neurological: oriented x 4, LOC appropriate for age, CN II-XII intact, motor strength equal & normal bilaterally, speech normal Assessment/Plan 1. Fracture of tibia, distal (S82.309A: Unspecified fracture of lower end of unspecified tibia, initial encounter for closed fracture) pt presents today for follow up on fracture. pt was seen by ortho and they put her in a boot for 6 weeks. her has been taking care of her. we completed his FMLA paper work and copy was given to them. pt is still having pain but feels it is slowly improving. all questions answered. RTC as needed 2. BMI 30.0-30.9,adult (Z68.30: Body mass index [BMI] 30.0-30.9, adult) BMI education given 3. Former smoker (Z87.891: Personal history of nicotine dependence) continue not smoking Follow-up No qualifying data available Problem List/Past Medical History Ongoing Acute gastroenteritis Anxiety and depression Apnea Back pain Back pain with history of spinal surgery Bladder spasms BMI 30.0-30.9,adult Bronchitis Chronic hepatitis C Comminuted fracture of patella Constipation Diarrhea Encounter for weight management Fracture of tibia, distal Gasping for breath H/O chest tube placement Hepatitis C Incomplete spinal cord syndrome Left ankle injury Left knee injury Left otitis media Obesity (BMI 30-39.9) Overweight (BMI 25.0-29.9) Pain management Paraplegia PCOS (polycystic ovarian syndrome) Rib pain on left side Right otitis media Right-sided chest wall pain Seizure disorder Skin infection Sleep apnea Smoker Snoring Sore throat Spinal cord injury at T7-T12 level Stomach cramps Wheelchair dependent Witnessed episode of apnea Historical No qualifying data Procedure/Surgical History Spinal fusion (2022), section, Tonsillectomy. Medications baclofen 20 mg Tab, 20 mg= 1 tab(s), Oral, TID, 3 refills busPIRone 30 mg oral tablet, 1 tab(s), Oral, BID cloNIDine 0.3 mg Tab, See Instructions Cymbalta 20 mg oral delayed release capsule, 1 cap(s), Oral, Once a day (at bedtime) duloxetine 30 mg oral delayed release capsule etodolac 400 mg Tab, 1 tab(s), Oral, BID ibuprofen 800 mg Tab, See Instructions lamotrigine 100 mg Tab lamotrigine 150 mg Tab, 150 mg= 1 tab(s), Oral, BID LIFT CHAIR, See Instructions meloxicam 15 mg Tab, 15 mg= 1 tab(s), Oral, Daily metformin 500 mg Tab, 500 mg= 1 tab(s), Oral, BID ondansetron 4 mg Dis Tab, See Instructions, 1 refills oxybutynin 10 mg ER Tab, See Instructions phentermine 37.5 mg Tab, 1 tab(s), Oral, Daily pregabalin 300 mg Cap, 300 mg= 1 cap(s), Oral, BID quetiapine 100 mg Tab, 1 tab(s), Oral, Daily quetiapine 300 mg oral ER Tab, 300 mg= 1 tab(s), Oral, Daily sertraline 50 mg Tab, 1.5 tab(s), Oral, Daily Suboxone 8 mg-2 mg sublingual film tiZANidine 4 mg Tab, See Instructions Vitamin C 500 mg Tab, 500 mg= 1 tab(s), Oral, Daily, 1 refills Vitamin D 50,000 intl units (1.25 mg) oral capsule, [address] International_Unit= 1 cap(s), Oral, qWeek, 3 refills Allergies Cymbalta (Suicide) hydrOXYzine (AOF, Eruption) propofol (Anaphylaxis) sodium hypochlorite topical (Unknown, Urticaria) Social History Alcohol - Denies Alcohol Use, 02/03/2020 Never., 08/26/2024 Substance Abuse - Denies Substance Abuse, 02/03/2020 Never., 06/19/2024 Tobacco Former smoker, quit more than 30 days ago, Vape Tobacco Use:. Current vaping or e-cigarette use Smokeless Tobacco Use:. Cigarettes, Vaping, Household tobacco concerns: No. Yes, 12/18/2024 Family History Ovarian cancer: Grandparent. Immunizations Vaccine Date Status Comments influenza virus vaccine, inactivated - Not Given Patient Refuses influenza virus vaccine, inactivated 07/17/2018 Recorded influenza virus vaccine, inactivated 06/11/2018 Recorded poliovirus vaccine, inactivated 02/24/2003 Recorded measles/mumps/rubella virus vaccine 02/24/2003 Recorded diphtheria/pertussis, acel/tetanus ped 02/24/2003 Recorded varicella virus vacci (more content not included)... [facility] Comment on above: Result Comment: Elec tronically Signed By: Earline Koroma\.br\Date and Time Signed: 12/18/24 14:17 EDT Ileana 12-05-2024 CNPN Telephone ([id number]) KAYLEEN KOVACS ([id number]) 1995 F Date Time Provider Department 12/05/24 NATY [id number] During your visit today, we recorded the following information about you: Kathrin Machado 12/05/2024 10:18 AM Signed Darrion from [facility] called regarding patients order for bracing. Order placed for PTB for Right and AFO for Left. Patient had appt and she states her Left is worse and she would like PTB on left and AFO on right. Cleopatra needs to know if they can switch or if the doctor would like to leave order as written. Darrion is available to discuss patient at [phone]. Let him know that Dr. Benedict is out of the office but I will ask the meteorologist liaison physician. Kathrin Machado 12/06/2024 11:17 AM Signed Attempted to call patient to set up VV with Lenora JOINER to discuss braces. Mailbox full. Sent [employer] message. Allergies As of Date: 12/05/2024 Noted Allergy Reaction HYDROXYZINE 12/14/2017 14 - Other: See Comments 2 - Rash Comments: Other reaction(s): AOF Other Reaction(s): AOF CYMBALTA (DULOXETINE) 11/17/2023 14 - Other: See Comments Comments: Suicidal ideation Date Reviewed: 09/27/2024 Reviewed by: Palma Watkins MA - Fully Assessed Reason for Visit: Patient Update [1234] Prescriptions as of 12/17/2024 - zonisamide (ZONEGRAN) 100 mg capsule Take 2 capsules by mouth daily at bedtime. - buprenorphine HCl/naloxone HCl (SUBOXONE SUBLINGUAL) Dissolve under the tongue. - lamoTRIgine (LAMICTAL) 150 mg tablet Take 1.5 tabs in the morning and 1 tab in the evening every day by mouth. - ergocalciferol, vitamin D2, (VITAMIN D2 ORAL) Take 50,000 Units by mouth one time a week. - ascorbic acid, vitamin C, (VITAMIN C) 500 mg tablet Take 500 mg by mouth once daily. - cloNIDine HCl (CATAPRES) 0.3 mg tablet Take 0.3 mg by mouth. - ibuprofen (MOTRIN) 800 mg tablet Take 800 mg by mouth three times a day as needed. - oxybutynin ER (DITROPAN XL) 10 mg 24 hr tablet Take 10 mg by mouth once daily. - pregabalin (LYRICA) 300 mg capsule Take 300 mg by mouth two times a day. - ondansetron (ZOFRAN) 4 mg tablet Take 4 mg by mouth every 8 hours as needed for nausea/vomiting. Problem List As Of Date 12/05/2024 Noted Resolved Obstructive sleep apnea [G47.33] 12/04/2023 Bipolar 1 disorder with moderate melinda (HCC) [F*10/22/2018 Chronic hepatitis C virus infection (HCC) [B18.*01/20/2023 Closed fracture of T12 vertebra with spinal cor*06/26/2022 Closed compression fracture of body of L1 verte*06/26/2022 Generalized-onset seizures (HCC) [R56.9] 01/19/2023 Neuropathic pain [M79.2] 01/10/2023 Mild intermittent asthma without complication [*10/23/2018 Nonintractable generalized idiopathic epilepsy *10/05/2023 Osteopenia determined by x-ray [M85.80] 04/08/2024 Complete paraplegia (HCC) [G82.21] 05/05/2023 Anxiety and depression [F41.9, F32.A] 04/08/2024 Encounter Status:Closed by SHASTA GARCIA on 12/17/[address] [facility] Ambulatory Visit Summaryon 0 11-28-2024 Ambulatory Visit Summary Ambulatory Visit Summary KAYLEEN KOVACS :1995 Visit Date:11/28/2024 Ambulatory Visit Instructions Your Diagnosis Left ankle injury BMI 30.0-30.9,adult Smoker Tests Performed XR Ankle 3+ Views Left -- Results Pending -- Please visit your patient portal for your results or contact your primary care physician. Your Care Team Attending Physician - Earline Koroma Primary Care Physician - Earline Koroma This Is Your Medications List Misc Prescription (LIFT CHAIR) ascorbic acid (Vitamin C 500 mg Tab) baclofen (baclofen 20 mg Tab) buprenorphine-naloxone (Suboxone 8 mg-2 mg sublingual film) busPIRone (busPIRone 30 mg oral tablet) clonidine (cloNIDine 0.3 mg Tab) duloxetine (Cymbalta 20 mg oral delayed release capsule) duloxetine (duloxetine 30 mg oral delayed release capsule) ergocalciferol (Vitamin D 50,000 intl units (1.25 mg) oral capsule) etodolac (etodolac 400 mg Tab) ibuprofen (ibuprofen 800 mg Tab) lamotrigine (lamotrigine 100 mg Tab) lamotrigine (lamotrigine 150 mg Tab) metformin (metformin 500 mg Tab) ondansetron (ondansetron 4 mg Dis Tab) oxybutynin (oxybutynin 10 mg ER Tab) phentermine (phentermine 37.5 mg Tab) pregabalin (pregabalin 300 mg Cap) quetiapine (quetiapine 100 mg Tab) quetiapine (quetiapine 300 mg oral ER Tab) sertraline (sertraline 50 mg Tab) tizanidine (tiZANidine 4 mg Tab) Procedures Performed Spinal fusion (2022), section, Tonsillectomy. Discharge Vitals Heart Rate (Peripheral) 82 Respiratory Rate 18 Blood Pressure 110/64 Height 175.0 cm Height 69 in Weight 93.0 kg Weight 205.03 lb BMI 30.37 Medications What How Much When Why Instructions Changed duloxetine (Cymbalta 20 mg oral delayed release capsule) 1 Capsules By Mouth Once a day (at bedtime) Changed duloxetine (duloxetine 30 mg oral delayed release capsule) TAKE 1 TABLET BY MOUTH DAILY Changed lamotrigine (lamotrigine 100 mg Tab) Changed lamotrigine (lamotrigine 150 mg Tab) 1 Tablets By Mouth 2 times a day TAKE 1 TABLET BY MOUTH TWICE DAILY Changed quetiapine (quetiapine 100 mg Tab) 1 Tablets By Mouth Every day Changed quetiapine (quetiapine 300 mg oral ER Tab) 1 Tablets By Mouth Every day Unchanged ascorbic acid (Vitamin C 500 mg Tab) 1 Tablets By Mouth Every day Back pain with history of spinal surgery Pain management Back pain Paraplegia Unchanged baclofen (baclofen 20 mg Tab) 1 Tablets By Mouth 3 times a day Pain management Paraplegia Fracture of patella Duration: 90 Days Unchanged buprenorphine-naloxone (Suboxone 8 mg-2 mg sublingual film) DISSOLVE 1 film UNDER THE TONGUE EVERY DAY Unchanged busPIRone (busPIRone 30 mg oral tablet) 1 Tablets By Mouth 2 times a day Unchanged clonidine (cloNIDine 0.3 mg Tab) See instructions TAKE 1 TABLET BY MOUTH TWICE DAILY Unchanged ergocalciferol (Vitamin D 50,000 intl units (1.25 mg) oral capsule) 1 Capsules By Mouth Every week Back pain with history of spinal surgery Pain management Back pain Paraplegia Unchanged etodolac (etodolac 400 mg Tab) 1 Tablets By Mouth 2 times a day Unchanged ibuprofen (ibuprofen 800 mg Tab) See instructions TAKE 1 TABLET BY MOUTH EVERY 8 HOURS Unchanged metformin (metformin 500 mg Tab) 1 Tablets By Mouth 2 times a day PCOS (polycystic ovarian syndrome) Unchanged Misc Prescription (LIFT CHAIR) See instructions Paraplegia Seizure disorder Wheelchair dependent POWER LIFT CHAIR Unchanged ondansetron (ondansetron 4 mg Dis Tab) See instructions DISSOLVE 1 (ONE) TABLET ON THE TONGUE EVERY 6 HOURS NEEDED FOR NAUSEA AND VOMITING Unchanged oxybutynin (oxybutynin 10 mg ER Tab) See instructions TAKE 1 TABLET BY MOUTH DAILY Unchanged phentermine (phentermine 37.5 mg Tab) 1 Tablets By Mouth Every day Unchanged pregabalin (pregabalin 300 mg Cap) 1 Capsules By Mouth 2 times a day Back pain with history of spinal surgery Back pain 90 day supply Unchanged sertraline (sertraline 50 mg Tab) 1.5 Tablets By Mouth Every day Unchanged tizanidine (tiZANidine 4 mg Tab) See instructions 1 tab(s) Oral every 6 hours as needed Allergies Cymbalta (Suicide) hydrOXYzine (AOF, Eruption) propofol (Anaphylaxis) sodium hypochlorite topical (Unknown, Urticaria) Problems Ongoing - Any problem that you are currently receiving treatment for. Acute gastroenteritis Anxiety and depression Apnea Back pain Back pain with history of spinal surgery Bladder spasms BMI 30.0-30.9,adult BMI 32.0-32.9,adult Bronchitis Chronic hepatitis C Comminuted fracture of patella Constipation Diarrhea Encounter for weight management Gasping for breath H/O chest tube placement Hepatitis C Incomplete spinal cord syndrome Left ankle injury Left knee injury Left otitis media Obesity (BMI 30-39.9) Overweight (BMI 25.0-29.9) Pain management Paraplegia PCOS (polycystic ovarian syndrome) Rib pain on left side Right otitis media Right-sided (more content not included)... Normal [facility] Medicine Office/Clini c Noteon 11-28-2024 Family Medicine Office/Clinic Note Family Medicine Office/Clinic Note HPI Staff Kayleen is a 29 year old female presenting for ER follow up ER followup: [place] [facility] [place]: 11/24/24 Symptoms the patient presented with: left ankle sprain, left knee contusion, [place] [employer] went to [place] forward and fell out of wheel chair Current concerns: Left ankle continues to be swelled wearing a boot. hard time putting any pressure on foot. Has been elevating and icing. History of Present Illness pt presents today for ER follow up. she fell out of her wheelchair and injured her ankle Review of Systems PHQ Score Initial Depression Screen Score: 0 SCORE Physical Exam Vitals & Measurements HR: 82(Peripheral) RR: 18 BP: 110/64 SpO2: 98% HT: 69 in HT: 175.0 cm WT: 205.03 lb WT: 93.0 kg BMI: 30.37 General: alert, no acute distress ENMT: oral mucosa moist, no pharyngeal erythema or exudate Cardiovascular: regular rate and rhythm, normal peripheral perfusion Respiratory: Lungs CTA, respirations non labored Extremities: no deformity, no trauma Neurological: oriented x 4, LOC appropriate for age, CN II-XII intact, motor strength equal & normal bilaterally, speech normal pt wearing soft boot on left ankle Assessment/Plan 1. Left ankle injury (S99.912A: Unspecified injury of left ankle, initial encounter) pt presents today for ER follow up. was seen for ankle injury. xray appeared negative but in hospital discharge notes it states she should have another x ray due to possible nondisplaced fracture. order was faxed to [facility]. pt would like referral to ortho as well. RTC 1 month Ordered: meloxicam, 15 mg = 1 tab(s), Oral, Daily, # 30 tab(s), Refills(s) 0, Pharmacy: [id number], 175, cm, 11/28/24 13:32:00 EDT, Height/Length Dosing, 93, kg, 11/28/24 13:32:00 EDT, Weight Dosing [facility] [place] Referral XR Ankle 3+ Views Left 2. BMI 30.0-30.9,adult (Z68.30: Body mass index [BMI] 30.0-30.9, adult) BMI education given Ordered: meloxicam, 15 mg = 1 tab(s), Oral, Daily, # 30 tab(s), Refills(s) 0, Pharmacy: [id number], 175, cm, 11/28/24 13:32:00 EDT, Height/Length Dosing, 93, kg, 11/28/24 13:32:00 EDT, Weight Dosing [facility] [place] Referral XR Ankle 3+ Views Left 3. Smoker (F17.200: Nicotine dependence, unspecified, uncomplicated) consider not smoking Ordered: meloxicam, 15 mg = 1 tab(s), Oral, Daily, # 30 tab(s), Refills(s) 0, Pharmacy: [id number], 175, cm, 11/28/24 13:32:00 EDT, Height/Length Dosing, 93, kg, 11/28/24 13:32:00 EDT, Weight Dosing [facility] [place] Ambulatory Referral XR Ankle 3+ Views Left Follow-up No qualifying data available Problem List/Past Medical History Ongoing Acute gastroenteritis Anxiety and depression Apnea Back pain Back pain with history of spinal surgery Bladder spasms BMI 30.0-30.9,adult BMI 32.0-32.9,adult Bronchitis Chronic hepatitis C Comminuted fracture of patella Constipation Diarrhea Encounter for weight management Gasping for breath H/O chest tube placement Hepatitis C Incomplete spinal cord syndrome Left ankle injury Left knee injury Left otitis media Obesity (BMI 30-39.9) Overweight (BMI 25.0-29.9) Pain management Paraplegia PCOS (polycystic ovarian syndrome) Rib pain on left side Right otitis media Right-sided chest wall pain Seizure disorder Skin infection Sleep apnea Smoker Snoring Sore throat Spinal cord injury at T7-T12 level Stomach cramps Wheelchair dependent Witnessed episode of apnea Historical No qualifying data Procedure/Surgical History Spinal fusion (2022), section, Tonsillectomy. Medications baclofen 20 mg Tab, 20 mg= 1 tab(s), Oral, TID, 3 refills busPIRone 30 mg oral tablet, 1 tab(s), Oral, BID cloNIDine 0.3 mg Tab, See Instructions Cymbalta 20 mg oral delayed release capsule, 1 cap(s), Oral, Once a day (at bedtime) duloxetine 30 mg oral delayed release capsule etodolac 400 mg Tab, 1 tab(s), Oral, BID ibuprofen 800 mg Tab, See Instructions lamotrigine 100 mg Tab lamotrigine 150 mg Tab, 150 mg= 1 tab(s), Oral, BID LIFT CHAIR, See Instructions meloxicam 15 mg Tab, 15 mg= 1 tab(s), Oral, Daily metformin 500 mg Tab, 500 mg= 1 tab(s), Oral, BID ondansetron 4 mg Dis Tab, See Instructions, 1 refills oxybutynin 10 mg ER Tab, See Instructions phentermine 37.5 mg Tab, 1 tab(s), Oral, Daily pregabalin 300 mg Cap, 300 mg= 1 cap(s), Oral, BID quetiapine 100 mg Tab, 1 tab(s), Oral, Daily quetiapine 300 mg oral ER Tab, 300 mg= 1 tab(s), Oral, Daily sertraline 50 mg Tab, 1.5 tab(s), Oral, Daily Suboxone 8 mg-2 mg sublingual film tiZANidine 4 mg Tab, See Instructions Vitamin C 500 mg Tab, 500 mg= 1 tab(s), Oral, Daily, 1 refills Vitamin D 50,000 intl units (1.25 mg) oral capsule, 54532 International_Unit= 1 cap(s), Oral, qWeek, 3 refills Allergies Cymbalta (Suicide) hydrOXYzine (AOF, Eruption) propofol (Anaphylaxis) sod (more content not included)... Normal [facility] Comment on above: Result Comment: Elec tronically Signed By: Earline Koroma\.br\Date and Time Signed: 11/28/24 14:12 EDT X-ray reportOrdered By: Jules Wilkinson on 11-24-2024 Study report [facility] [place] [address] XRay Report Signed Patient: Kayleen Kovacs MR# : [id number] : 1995 Acct:[id number] Age/Sex: 29 / F ADM Date: 5 Loc: ER Room: Type: [facility] ER Attending Dr: Copies to: Parth Wise PA-C~ Ordering Provider: Parth Wise PA-C Date of Service: 11/24/24 XR/XR ankle LT min 3V*: Fall XR ankle LT min 3V* 11/24/2024 4:42 PM SIGNS AND SYMPTOMS: Fall, left ankle and knee pain PROTOCOL: Frontal, lateral, and oblique radial graphs of the left ankle COMPARISON: None FINDINGS: The ankle mortise is preserved. There is no evidence of acute displaced fracture. No dislocation or subluxation. Diffuse soft tissue swelling is noted. XR/XR ankle LT min 3V* IMPRESSION: No acute bony injury. There is diffuse osteopenia. There is diffuse soft tissue swelling. Impression dictated by: Jules Wilkinson M.D. 11/24/2024 5:42 PM Dictation Location: [facility]-17 Transcribed By: [facility] 11/24/241741 Dictated By: Jules Wilkinson II, MD 11/24/241739 Signed By: 11/24/241741 [facility] Work Phone: Study report [facility] [address] [place] [address] [place] [address] XRay Report Signed Patient: Kayleen Kovacs MR# : [id number] : 1995 Acct:[id number] Age/Sex: 29 / F ADM Date: 5 Loc: ER Room: Type: [facility] ER Attending Dr: Copies to: Parth Wise PA-C~ Ordering Provider: Parth Wise PA-C Date of Service: 11/24/24 XR/XR knee LT 4V*: Fall XR knee LT 4V* 11/24/2024 4:42 PM SIGNS AND SYMPTOMS: Fall, left knee pain PROTOCOL: Frontal, lateral, and oblique radial graphs of the left knee COMPARISON: None FINDINGS: There is mild narrowing of the medial weightbearing joint space. The patellofemoral joint space is preserved. No joint effusion. No soft tissue swelling. No fracture or dislocation. XR/XR knee LT 4V* IMPRESSION: No acute bony injury. Degenerative changes are noted as above. Impression dictated by: Jules Wilkinson M.D. 11/24/2024 5:42 PM Dictation Location: [facility]-17 Transcribed By: JOSETTE 11/24/241741 Dictated By: Jules Wilkinson II, MD 11/24/241741 Signed By: 11/24/241741 [facility] Work Phone: XR ankle LT min 3V*on 2024 XR ankle LT min 3V* [facility] [address] [place] [address] [place] [address] XRay Report Signed Patient: Kayleen Kovacs MR#: [id number] : 1995 Acct:[id number] Age/Sex: 29 / F ADM Date: 11/24/24 Loc: ER Room: Type: [facility] ER Attending Dr: Copies to: Parth Wise PA-C Ordering Provider: Parth Wise PA-C Date of Service: 11/24/24 XR/XR ankle LT min 3V*: Fall XR ankle LT min 3V* 11/24/2024 4:42 PM SIGNS AND SYMPTOMS: Fall, left ankle and knee pain PROTOCOL: Frontal, lateral, and oblique radial graphs of the left ankle COMPARISON: None FINDINGS: The ankle mortise is preserved. There is no evidence of acute displaced fracture. No dislocation or subluxation. Diffuse soft tissue swelling is noted. XR/XR ankle LT min 3V* IMPRESSION: No acute bony injury. There is diffuse osteopenia. There is diffuse soft tissue swelling. Impression dictated by: Jules Wilkinson M.D. 11/24/2024 5:42 PM Dictation Location: [facility]-17 Transcribed By: JOSETTE 11/24/241741 Dictated By: Jules Wilkinson II, MD 11/24/241739 Signed By: 11/24/241741 Normal [facility] XR knee LT 4V*on 11-24-2024 XR knee LT 4V* [facility] [place] [address] XRay Report Signed Patient: Kayleen Kovacs MR#: [id number] : 1995 Acct:[id number] Age/Sex: 29 / F ADM Date: 11/24/24 Loc: ER Room: Type: [facility] ER Attending Dr: Copies to: Parth Wise PA-C Ordering Provider: Parth Wise PA-C Date of Service: 11/24/24 XR/XR knee LT 4V*: Fall XR knee LT 4V* 11/24/2024 4:42 PM SIGNS AND SYMPTOMS: Fall, left knee pain PROTOCOL: Frontal, lateral, and oblique radial graphs of the left knee COMPARISON: None FINDINGS: There is mild narrowing of the medial weightbearing joint space. The patellofemoral joint space is preserved. No joint effusion. No soft tissue swelling. No fracture or dislocation. XR/XR knee LT 4V* IMPRESSION: No acute bony injury. Degenerative changes are noted as above. Impression dictated by: Jules Wilkinson M.D. 11/24/2024 5:42 PM Dictation Location: [place] [address] Transcribed By: [facility] 11/24/241741 Dictated By: Jules Wilkinson II, MD 11/24/241741 Signed By: 11/24/241741 Normal [facility] Ileana 11-11-2024 CNPN Telephone (URFMOB) KAYLEEN KOVACS ([id number]) 1995 F Date Time Provider Department 11/11/24 GILLIAN MILLAN During your visit today, we recorded the following information about you: Jerry Newman 11/11/2024 2:38 PM Signed Called patient to inform them of new office for urology, patient needed to reschedule 11/22/24 appointment to 12/10/24. Allergies As of Date: 11/11/2024 Noted Allergy Reaction HYDROXYZINE 12/14/2017 14 - Other: See Comments 2 - Rash Comments: Other reaction(s): AOF Other Reaction(s): AOF CYMBALTA (DULOXETINE) 11/17/2023 14 - Other: See Comments Comments: Suicidal ideation Date Reviewed: 09/27/2024 Reviewed by: Palma Watkins MA - Fully Assessed Reason for Visit: appointment reschedule [Other] Prescriptions as of 11/11/2024 - zonisamide (ZONEGRAN) 100 mg capsule Take 2 capsules by mouth daily at bedtime. - buprenorphine HCl/naloxone HCl (SUBOXONE SUBLINGUAL) Dissolve under the tongue. - lamoTRIgine (LAMICTAL) 150 mg tablet Take 1.5 tabs in the morning and 1 tab in the evening every day by mouth. - ergocalciferol, vitamin D2, (VITAMIN D2 ORAL) Take 50,000 Units by mouth one time a week. - ascorbic acid, vitamin C, (VITAMIN C) 500 mg tablet Take 500 mg by mouth once daily. - cloNIDine HCl (CATAPRES) 0.3 mg tablet Take 0.3 mg by mouth. - ibuprofen (MOTRIN) 800 mg tablet Take 800 mg by mouth three times a day as needed. - oxybutynin ER (DITROPAN XL) 10 mg 24 hr tablet Take 10 mg by mouth once daily. - pregabalin (LYRICA) 300 mg capsule Take 300 mg by mouth two times a day. - ondansetron (ZOFRAN) 4 mg tablet Take 4 mg by mouth every 8 hours as needed for nausea/vomiting. Problem List As Of Date 11/11/2024 Noted Resolved Obstructive sleep apnea [G47.33] 12/04/2023 Bipolar 1 disorder with moderate melinda (HCC) [F*10/22/2018 Chronic hepatitis C virus infection (HCC) [B18.*01/20/2023 Closed fracture of T12 vertebra with spinal cor*06/26/2022 Closed compression fracture of body of L1 verte*06/26/2022 Generalized-onset seizures (HCC) [R56.9] 01/19/2023 Neuropathic pain [M79.2] 01/10/2023 Mild intermittent asthma without complication [*10/23/2018 Nonintractable generalized idiopathic epilepsy *10/05/2023 Osteopenia determined by x-ray [M85.80] 04/08/2024 Complete paraplegia (HCC) [G82.21] 05/05/2023 Anxiety and depression [F41.9, F32.A] 04/08/2024 Encounter Status:Closed by JERRY NEWMAN on 11/11/24 [facility]20[facility] KAYLEEN KOVACS ([id number]) 1995 F Date Time Provider Department 11/05/24 NATY BENEDICT [facility] During your visit today, we recorded the following information about you: Naty Benedict MD 11/05/2024 11:55 AM Signed PMR Prescription for Right PLS AFO and Left Solid ankle AFO MD Evi Houston Rachel 11/19/2024 9:16 AM Signed Patient called in w/ Darrion at the [facility] [place] [facility] stating that Dr. Benedict has patient scripts for patient's braces backwards. Patient needs a left PB and right AFO. Please fax new orders. Fax number: [phone] [facility] Christal Hernandez RN 11/29/2024 10:10 AM Signed Calling back to check on status to see if order can be updated to left. Please place new order and fax. Christal Hernandez RN 01/29/2025 8:17 AM Signed Being addressed in another encounter Allergies As of Date: 11/05/2024 Noted Allergy Reaction HYDROXYZINE 12/14/2017 14 - Other: See Comments 2 - Rash Comments: Other reaction(s): AOF Other Reaction(s): AOF CYMBALTA (DULOXETINE) 11/17/2023 14 - Other: See Comments Comments: Suicidal ideation Date Reviewed: 09/27/2024 Reviewed by: Palma Watkins MA - Fully Assessed Reason for Visit: Orders [681] Primary Visit Diagnosis:Paraplegia (HCC) [G82.20] Other Visit Diagnosis:Neurologic gait dysfunction [R26.9] Order(s):CONSULT TO ORTHOTIC/PROSTHETIC [19990805] Order #: [id number] Prescriptions as of 01/29/2025 - zonisamide (ZONEGRAN) 100 mg capsule Take 2 capsules by mouth daily at bedtime. - buprenorphine HCl/naloxone HCl (SUBOXONE SUBLINGUAL) Dissolve under the tongue. - lamoTRIgine (LAMICTAL) 150 mg tablet Take 1.5 tabs in the morning and 1 tab in the evening every day by mouth. - ergocalciferol, vitamin D2, (VITAMIN D2 ORAL) Take 50,000 Units by mouth one time a week. - ascorbic acid, vitamin C, (VITAMIN C) 500 mg tablet Take 500 mg by mouth once daily. - cloNIDine HCl (CATAPRES) 0.3 mg tablet Take 0.3 mg by mouth. - ibuprofen (MOTRIN) 800 mg tablet Take 800 mg by mouth three times a day as needed. - oxybutynin ER (DITROPAN XL) 10 mg 24 hr tablet Take 10 mg by mouth once daily. - pregabalin (LYRICA) 300 mg capsule Take 300 mg by mouth two times a day. - ondansetron (ZOFRAN) 4 mg tablet Take 4 mg by mouth every 8 hours as needed for nausea/vomiting. Problem List As Of Date 11/05/2024 Noted Resolved Obstructive sleep apnea [G47.33] 12/04/2023 Bipolar 1 disorder with moderate melinda (HCC) [F*10/22/2018 Chronic hepatitis C virus infection (HCC) [B18.*01/20/2023 Closed fracture of T12 vertebra with spinal cor*06/26/2022 Closed compression fracture of body of L1 verte*06/26/2022 Generalized-onset seizures (HCC) [R56.9] 01/19/2023 Neuropathic pain [M79.2] 01/10/2023 Mild intermittent asthma without complication [*10/23/2018 Nonintractable generalized idiopathic epilepsy *10/05/2023 Osteopenia determined by x-ray [M85.80] 04/08/2024 Complete paraplegia (HCC) [G82.21] 05/05/2023 Anxiety and depression [F41.9, F32.A] 04/08/2024 Encounter Status:Closed by JEFERSON BENEDICT on 11/05/24 [facility] 10-16-2024 [facility] Telephone ([id number]) DINORAHALLANKAYLEEN ([id number]) 1995 F Date Time Provider Department 10/16/24 NATY BENEDICT REM[facility] During your visit today, we recorded the following information about you: Shasta Garcia 10/16/2024 4:03 PM Signed Patient last seen on Received outside [facility] radiology report - MRI Thoracic spine dated: 10/11/24 for Ms. Kovacs. The MRI report was uploaded to the patient's chart. Allergies As of Date: 10/16/2024 Noted Allergy Reaction HYDROXYZINE 12/14/2017 14 - Other: See Comments 2 - Rash Comments: Other reaction(s): AOF Other Reaction(s): AOF CYMBALTA (DULOXETINE) 11/17/2023 14 - Other: See Comments Comments: Suicidal ideation Date Reviewed: 09/27/2024 Reviewed by: Palma Watkins MA - Fully Assessed Reason for Visit: Received outside hospital radiology report. [Other] Prescriptions as of 10/16/2024 - zonisamide (ZONEGRAN) 100 mg capsule Take 2 capsules by mouth daily at bedtime. - buprenorphine HCl/naloxone HCl (SUBOXONE SUBLINGUAL) Dissolve under the tongue. - lamoTRIgine (LAMICTAL) 150 mg tablet Take 1.5 tabs in the morning and 1 tab in the evening every day by mouth. - ergocalciferol, vitamin D2, (VITAMIN D2 ORAL) Take 50,000 Units by mouth one time a week. - ascorbic acid, vitamin C, (VITAMIN C) 500 mg tablet Take 500 mg by mouth once daily. - cloNIDine HCl (CATAPRES) 0.3 mg tablet Take 0.3 mg by mouth. - ibuprofen (MOTRIN) 800 mg tablet Take 800 mg by mouth three times a day as needed. - oxybutynin ER (DITROPAN XL) 10 mg 24 hr tablet Take 10 mg by mouth once daily. - pregabalin (LYRICA) 300 mg capsule Take 300 mg by mouth two times a day. - ondansetron (ZOFRAN) 4 mg tablet Take 4 mg by mouth every 8 hours as needed for nausea/vomiting. Problem List As Of Date 10/16/2024 Noted Resolved Obstructive sleep apnea [G47.33] 12/04/2023 Bipolar 1 disorder with moderate melinda (HCC) [F*10/22/2018 Chronic hepatitis C virus infection (HCC) [B18.*01/20/2023 Closed fracture of T12 vertebra with spinal cor*06/26/2022 Closed compression fracture of body of L1 verte*06/26/2022 Generalized-onset seizures (HCC) [R56.9] 01/19/2023 Neuropathic pain [M79.2] 01/10/2023 Mild intermittent asthma without complication [*10/23/2018 Nonintractable generalized idiopathic epilepsy *10/05/2023 Osteopenia determined by x-ray [M85.80] 04/08/2024 Complete paraplegia (HCC) [G82.21] 05/05/2023 Anxiety and depression [F41.9, F32.A] 04/08/2024 Encounter Status:Closed by ZENAIDA SPEAR on 10/16/[address] [facility] MR THORACIC SPINE WO CONTon 10-16-2024 MR THORACIC SPINE WO CONT MR THORACIC SPINE WO CONT History: Prior compression fracture T11-L1. Back pain Procedure: Multiplanar multisequence MR imaging performed through the thoracic spine Findings: Prior imaging from [facility] not available for comparison currently There is hardware artifact at the lower thoracic spine and upper lumbar spine which markedly compromises evaluation of those regions Grossly no stenosis at the surgical levels within the canal There is a moderate midline disc bulge at the approximately T3-4 level but without stenosis. At the C5-6 level within the lower cervical cord there is also mild to moderate posterior disc bulging and cervical kyphosis at that level. Consider MRI cervical spine for further assessment Grossly appropriate signal within the thoracic cord Appropriate signal within the thoracic vertebra excepting I cannot evaluate the T11 and T12 vertebra due to artifacts. The lower thoracic cord is also compromised assessment due to the hardware artifact IMPRESSION: There is hardware artifact at the lower thoracic spine and upper lumbar spine which markedly compromises evaluation of those regions Grossly no stenosis at the surgical levels within the canal or foraminal There is a moderate midline disc bulge at the approximately T3-4 level but without stenosis. At the C5-6 level within the lower cervical cord there is also mild to moderate posterior disc bulging and cervical kyphosis at that level. Consider MRI cervical spine for further assessment Finalized by Javad Duarte MD on 10/16/2024 7:52 AM Normal [facility] CNOVon 09-27-2024 CNOV Office Visit ([facility] ) KAYLEEN KOVACS ([id number]) 1995 F Date Time Provider Department 09/27/24 10:30 AM NATY BENEDICT [facility] During your visit today, we recorded the following information about you: Weight Height 97.1 kg 1.753 m Naty Benedict MD 11/13/2024 11:43 AM Addendum [facility]ANDR[facility] Attending Outpatient Note Name: Kayleen Kovacs [id number] Date of Service: 09/27/24 Last seen: 07/19/24 Chief complaint: Physical therapy continues, Nutrition consulted for HLD completed, DEXA c/w low BMD, Forgot to see PCP for HLD, Did not see Urology, Xray T-L spine completed and unremarkable. Pt still complains of severe mid to lower back pain that limits ability to walk Patient Summary: Kayleen Kovacs is a 29 yo female with a PMH for Anxiety, Borderline personality disorder, Obesity, Seizure disorder, Polycystic ovary syndrome who was admitted to [facility] on 06/26/22 following a fall due to seizure with suspected SCI due to L1 burst fracture. She was taken to the OR on 06/26/22 by Getachew Leong for T11 - L3 PSDF. Hospital course complicated by Neuropathic pain and UTI. She was sent to inpatient rehab on 07/08/22 and discharged on 07/28/22. She was admitted to [facility] on 05/05/23 with continued pain with imaging c/w nonhealing L1 fracture. She was taken to the OR on on 05/05/23 by Getachew Mendez for T12 -L2 ASDF with L1 corpectomy and discectomy at T12-L1 and L1-L2. Hospital course complicated by Pulmonary embolism and left hemothorax s/p video assisted thoracoscopy, VATS, chest tube placement and rib fragment removal by Dr Park (05/17/23). PT here for PMR f/u. Interval History: 08/15/24 Nutritional consultation: Nutrition Intervention 08/15/2024: Modify type and amount of food consumed for meals and snacks: Consider protein Shakes (Premier, orgain) 2. Follow heart healthy plate method for meals (1/2 veggies, 1/4 starches/whole grains, 1/4 lean protein, 1-2 tbsp of healthy fats) 08/27/24 Neurology f/u for seizure history Medications: Current Outpatient Medications on File Prior to Visit Medication Sig lamoTRIgine (LAMICTAL) 150 mg tablet Take 1.5 tabs in the morning and 1 tab in the evening every day by mouth. zonisamide (ZONEGRAN) 100 mg capsule Take 1 capsule by mouth daily at bedtime for 7 days, THEN 2 capsules daily at bedtime. ergocalciferol, vitamin D2, (VITAMIN D2 ORAL) Take 50,000 Units by mouth one time a week. ascorbic acid, vitamin C, (VITAMIN C) 500 mg tablet Take 500 mg by mouth once daily. cloNIDine HCl (CATAPRES) 0.3 mg tablet Take 0.3 mg by mouth. ibuprofen (MOTRIN) 800 mg tablet Take 800 mg by mouth three times a day as needed. oxybutynin ER (DITROPAN XL) 10 mg 24 hr tablet Take 10 mg by mouth once daily. pregabalin (LYRICA) 300 mg capsule Take 300 mg by mouth two times a day. ondansetron (ZOFRAN) 4 mg tablet Take 4 mg by mouth every 8 hours as needed for nausea/vomiting. No current facility-administered medications on file prior to visit. ROS copied from previous note and updated as needed She is living with and daughter Her PCP is Dr Lisa Lopez Her sleep is ok. She has sleep apnea but c-pap not helping. Pain = 7 in mid back She has depression and seing psychiatrist She has no signs or sx of respiratory dysfunction. Her spasticity is absent His skin is intact She has no autonomic dysreflexia She has no orthostatic hypotension She has a hx of PE.not on blood thinners Her sensation is better on right side Her strength is better She has some left edema She is continent of bladder in toilet 5x a day with some retention She had 0 bladder infections in 2023 She has a Urologist, Dr Murillo She has no history of Bladder/Kidney stones. Her Bladder/Kidney US was normal 02/08/24 She is continent of bowels with frequent [...] slide board. She stands with therapist for 60 seconds with therapist in walker with left AFO She is independent with wheelchair mobility She has a manual wheelchair with comfort M3 foam cushion. 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 She doesn't drives with hand controls and pulls chair in across her. She has PT 2x a week. Objective Physical Exam: General: BACK: Well healed spinal incision (+) palpable thoracic spine tenderness from T6-8. (-) Straight (more content not included)... Normal [facility] Ambulatory Visit Summaryon 0 08-27-2024 Ambulatory Visit Summary Ambulatory Visit Summary KAYLEEN KOVACS :1995 Visit Date:08/27/2024 Ambulatory Visit Instructions Your Diagnosis PCOS (polycystic ovarian syndrome) Your Care Team Attending Physician - Earline Koroma Primary Care Physician - Earline Koroma This Is Your Medications List [facility] Prescription (LIFT CHAIR) ascorbic acid (Vitamin C 500 mg Tab) baclofen (baclofen 20 mg Tab) buprenorphine-naloxone (Suboxone 8 mg-2 mg sublingual film) clonidine (cloNIDine 0.3 mg Tab) duloxetine (duloxetine 30 mg oral delayed release capsule) ergocalciferol (Vitamin D 50,000 intl units (1.25 mg) oral capsule) ibuprofen (ibuprofen 800 mg Tab) lamotrigine (lamotrigine 150 mg Tab) ondansetron (ondansetron 4 mg Dis Tab) oxybutynin (oxybutynin 10 mg ER Tab) pregabalin (pregabalin 300 mg Cap) quetiapine (quetiapine 300 mg oral ER Tab) tizanidine (tiZANidine 4 mg Tab) Procedures Performed Spinal fusion (2022), section, Tonsillectomy. Discharge Vitals Heart Rate (Peripheral) 92 Respiratory Rate 18 Blood Pressure 124/82 Height 175.0 cm Height 69 in Medications What How Much When Why Instructions Unchanged ascorbic acid (Vitamin C 500 mg Tab) 1 Tablets By Mouth Every day Back pain with history of spinal surgery Pain management Back pain Paraplegia Unchanged baclofen (baclofen 20 mg Tab) 1 Tablets By Mouth 3 times a day Pain management Paraplegia Fracture of patella Duration: 90 Days Unchanged buprenorphine-naloxone (Suboxone 8 mg-2 mg sublingual film) DISSOLVE 1 film UNDER THE TONGUE EVERY DAY Unchanged clonidine (cloNIDine 0.3 mg Tab) See instructions TAKE 1 TABLET BY MOUTH TWICE DAILY Unchanged duloxetine (duloxetine 30 mg oral delayed release capsule) TAKE 1 TABLET BY MOUTH DAILY Unchanged ergocalciferol (Vitamin D 50,000 intl units (1.25 mg) oral capsule) 1 Capsules By Mouth Every week Back pain with history of spinal surgery Pain management Back pain Paraplegia Unchanged ibuprofen (ibuprofen 800 mg Tab) See instructions TAKE 1 TABLET BY MOUTH EVERY 8 HOURS NEEDED FOR PAIN Unchanged lamotrigine (lamotrigine 150 mg Tab) 1 Tablets By Mouth 2 times a day TAKE 1 TABLET BY MOUTH TWICE DAILY Unchanged Misc Prescription (LIFT CHAIR) See instructions Paraplegia Seizure disorder Wheelchair dependent POWER LIFT CHAIR Unchanged ondansetron (ondansetron 4 mg Dis Tab) See instructions DISSOLVE 1 (ONE) TABLET ON THE TONGUE EVERY 6 HOURS NEEDED FOR NAUSEA AND VOMITING Unchanged oxybutynin (oxybutynin 10 mg ER Tab) See instructions TAKE 1 TABLET BY MOUTH DAILY Unchanged pregabalin (pregabalin 300 mg Cap) 1 Capsules By Mouth 2 times a day Unchanged quetiapine (quetiapine 300 mg oral ER Tab) 1 Tablets By Mouth Every day Unchanged tizanidine (tiZANidine 4 mg Tab) See instructions 1 tab(s) Oral every 6 hours as needed Allergies Cymbalta (Suicide) hydrOXYzine (AOF, Eruption) propofol (Anaphylaxis) sodium hypochlorite topical (Unknown, Urticaria) Problems Ongoing - Any problem that you are currently receiving treatment for. Acute gastroenteritis Anxiety and depression Apnea Back pain Back pain with history of spinal surgery Bladder spasms BMI 30.0-30.9,adult BMI 32.0-32.9,adult Bronchitis Chronic hepatitis C Comminuted fracture of patella Constipation Diarrhea Encounter for weight management Gasping for breath H/O chest tube placement Hepatitis C Incomplete spinal cord syndrome Left knee injury Left otitis media Obesity (BMI 30-39.9) Overweight (BMI 25.0-29.9) Pain management Paraplegia PCOS (polycystic ovarian syndrome) Rib pain on left side Right otitis media Right-sided chest wall pain Seizure disorder Skin infection Sleep apnea Smoker Snoring Sore throat Spinal cord injury at T7-T12 level Stomach cramps Wheelchair dependent Witnessed episode of apnea Patient Survey You may receive a survey via text or e-mail asking about your office visit. Please share your experience with us by completing your survey. We appreciate your feedback and thank you for choosing us for your care. Patricia [facility] Family Medicine Office/Clini c Noteon 08-27-2024 Family Medicine Office/Clinic Note Family Medicine Office/Clinic Note HPI Staff Kayleen is a 28 year old female presenting to discuss weight loss pt states she doesn't want to do adipex states she couldn't eat much would make her nauseated with her other Meds. History of Present Illness pt would like to discuss weight loss. Review of Systems PHQ Score Initial Depression Screen Score: 0 SCORE Physical Exam Vitals & Measurements HR: 92(Peripheral) RR: 18 BP: 124/82 SpO2: 98% HT: 69 in HT: 175.0 cm General: alert, no acute distress ENMT: oral mucosa moist, no pharyngeal erythema or exudate Cardiovascular: regular rate and rhythm, normal peripheral perfusion Respiratory: Lungs CTA, respirations non labored Extremities: no deformity, no trauma Neurological: oriented x 4, LOC appropriate for age, CN II-XII intact, motor strength equal & normal bilaterally, speech normal Assessment/Plan 1. PCOS (polycystic ovarian syndrome) (E28.2: Polycystic ovarian syndrome) pt struggles to lose weight due to PCOS. she did not like side effects from adipex. will start metformin. pt unable to afford semaglutide. all questions answered. RTC 3 months unable to get weight due to she is wheelchair bound Ordered: metformin, 500 mg = 1 tab(s), Oral, BID, # 180 tab(s), Refills(s) 0, Pharmacy: [id number], 175, cm, 08/27/24 10:43:00 EST, Height/Length Dosing, 93, kg, 06/19/24 11:25:00 EST, Weight Dosing Orders: baclofen, 20 mg = 1 tab(s), Oral, TID, # 90 tab(s), Refills(s) 3, Pharmacy: [id number], 175, cm, 02/27/24 10:26:00 EDT, Height/Length Dosing, 91.4, kg, 02/27/24 10:26:00 EDT, Weight Dosing etodolac, 400 mg = 1 tab(s), Oral, BID, PRN for pain, # 14 tab(s), Refills(s) 0, Pharmacy: [id number], 175, cm, 01/30/24 11:24:00 EDT, Height/Length Dosing, 91, kg, 01/30/24 11:24:00 EDT, Weight Dosing phentermine, 37.5 mg = 1 tab(s), Oral, Daily, BMI=29.68, # 30 tab(s), Refills(s) 0, Pharmacy: [id number], 175, cm, 05/02/24 12:00:00 EDT, Height/Length Dosing, 91, kg, 05/02/24 12:00:00 EDT, Weight Dosing sertraline, 75 mg = 1.5 tab(s), Oral, Daily, # 30 tab(s), Refills(s) 0, Pharmacy: [facility]/pharmacy #[id number], 175.3, cm, 07/10/23 10:35:00 EST, Height/Length Dosing, 113.3, kg, 03/01/23 9:34:00 EDT, Weight Dosing Follow-up No qualifying data available Problem List/Past Medical History Ongoing Acute gastroenteritis Anxiety and depression Apnea Back pain Back pain with history of spinal surgery Bladder spasms BMI 30.0-30.9,adult BMI 32.0-32.9,adult Bronchitis Chronic hepatitis C Comminuted fracture of patella Constipation Diarrhea Encounter for weight management Gasping for breath H/O chest tube placement Hepatitis C Incomplete spinal cord syndrome Left knee injury Left otitis media Obesity (BMI 30-39.9) Overweight (BMI 25.0-29.9) Pain management Paraplegia PCOS (polycystic ovarian syndrome) Rib pain on left side Right otitis media Right-sided chest wall pain Seizure disorder Skin infection Sleep apnea Smoker Snoring Sore throat Spinal cord injury at T7-T12 level Stomach cramps Wheelchair dependent Witnessed episode of apnea Historical No qualifying data Procedure/Surgical History Spinal fusion (2022), section, Tonsillectomy. Medications baclofen 20 mg Tab, 20 mg= 1 tab(s), Oral, TID, 3 refills cloNIDine 0.3 mg Tab, See Instructions duloxetine 30 mg oral delayed release capsule ibuprofen 800 mg Tab, See Instructions lamotrigine 150 mg Tab, 150 mg= 1 tab(s), Oral, BID LIFT CHAIR, See Instructions metformin 500 mg Tab, 500 mg= 1 tab(s), Oral, BID ondansetron 4 mg Dis Tab, See Instructions oxybutynin 10 mg ER Tab, See Instructions pregabalin 300 mg Cap, 300 mg= 1 cap(s), Oral, BID quetiapine 300 mg oral ER Tab, 300 mg= 1 tab(s), Oral, Daily Suboxone 8 mg-2 mg sublingual film tiZANidine 4 mg Tab, See Instructions Vitamin C 500 mg Tab, 500 mg= 1 tab(s), Oral, Daily, 1 refills Vitamin D 50,000 intl units (1.25 mg) oral capsule, 16708 International_Unit= 1 cap(s), Oral, qWeek, 3 refills Allergies Cymbalta (Suicide) hydrOXYzine (AOF, Eruption) propofol (Anaphylaxis) sodium hypochlorite topical (Unknown, Urticaria) Social History Alcohol - Denies Alcohol Use, 02/03/2020 Never., 08/26/2024 Substance Abuse - Denies Substance Abuse, 02/03/2020 Never., 06/19/2024 Tobacco Former smoker, quit more than 30 days ago, Vape Tobacco Use:. Current vaping or e-cigarette use Smokeless Tobacco Use:. Cigarettes, Vaping, Household tobacco concerns: No. Yes, 06/19/2024 Family History Ovarian cancer: Grandparent. Immunizations Vaccine Date Status Comments influenza virus vaccine, inactivated - Not Given Patient Refuses influenza virus vaccine, inactivated 07/17/2018 Recorded influenza virus vaccine, inactivated 06/11/2018 Recorded poliovirus vaccine, inactivated 02/24/2003 Recorded measles/mumps/rubella virus vaccine (more content not included)... Normal [facility] Comment on above: Result Comment: Elec tronically Signed By: Earline Koroma\.br\Date and Time Signed: 08/27/24 11:08 EST BD DXA - AXIAL SKELETONon BD DXA - AXIAL SKELETON * * *Final Report* * * DATE OF EXAM: Aug 01 2024 11:49AM LDX 0804 - BD DXA - AXIAL SKELETON / PROCEDURE REASON: multiple diagnoses * * * * Physician Interpretation * * * * EXAMINATION: DXA BONE DENSITOMETRY BD DXA - AXIAL SKELETON PATIENT DEMOGRAPHICS: Age: 28 years, Gender: Female SCANNER INFORMATION: DXA Model: [facility] [employer] [id number] Date Scanned: 08/01/2024 11:49 AM CLINICAL HISTORY: DIAGNOSTIC Paraplegia (HCC) Idiopathic osteoporosis . RISK FACTORS FOR OSTEOPOROSIS AND ASSOCIATED FRACTURES REPORTED BY THIS PATIENT: Please refer to Bone Health Questionnaire in the EMR CURRENT THERAPY: Please refer to Bone Health Questionnaire in the EMR TECHNICAL LIMITATIONS: RESULTS: Left Femoral Neck: 0.812 g/cm2, Z-score -2.2 Left Total Hip: 0.705 g/cm2, Z-score -3.0 Right Forearm, Distal 1/3 of Radius: 0.669 g/cm2, Z-score -0.5 No comparison data - the patient has not had a previous bone density in the [facility] or the previous bone density was performed on a different DXA machine (new, updated model or different location) within the [facility]. VERTEBRAL FRACTURE ASSESSMENT Not performed. TRABECULAR BONE ASSESSMENT TBS not performed: not ordered Impression: THE LOWEST Z-SCORE IS -3.0 IN THE LEFT HIP 1) DIAGNOSIS (based on BMD alone): BELOW THE EXPECTED RANGE FOR AGE though the expected range for age -Caution: medical conditions other than osteoporosis may cause low bone density, such as osteomalacia or renal osteodystrophy. Clinical correlation is necessary. 2) FRACTURE RISK (based on BMD alone): Fracture data based solely on BMD is not available in this age group to make this assessment. However, fracture risk may be increased independent of BMD, particularly in patients taking corticosteroids or patients with a prior fragility fracture. RECOMMENDATIONS: Follow-up as clinically indicated. Patients that are taking corticosteroids, are transplant recipients or have hyperparathyroidism should have annual follow-up. Follow-up scans should always be done on the same machine for accurate comparison. FOR MORE INFORMATION ABOUT DIAGNOSIS AND TREATMENT: [facility] Center for Osteoporosis and Metabolic Bone Disease:? www.ccf.org/arthritis/o steo National Osteoporosis Foundation:? www.nof.org International Society of Clinical Densitometry www.iscd.org Instructional Developer: BAY Transcribe Date/Time: Aug 01 2024 2:40P Dictated by : JACK SANCHES MD This examination was interpreted and the report reviewed and electronically signed by: JACK SANCHES MD on Aug 01 2024 2:41PM EST [id number] Normal [facility] DXA Skeletal system.axial Vi ews for bone densityon 08-01-2024 * * *Final Report* * * DATE OF EXAM: Aug 01 2024 11:49AM LDX 0804 - BD DXA - AXIAL SKELETON / PROCEDURE REASON: multiple diagnoses * * * * Physician Interpretation * * * * EXAMINATION: DXA BONE DENSITOMETRY BD DXA - AXIAL SKELETON PATIENT DEMOGRAPHICS: Age: 28 years, Gender: Female SCANNER INFORMATION: DXA Model: [facility] [employer] [id number] Date Scanned: 08/01/2024 11:49 AM CLINICAL HISTORY: DIAGNOSTIC Paraplegia (HCC) Idiopathic osteoporosis . RISK FACTORS FOR OSTEOPOROSIS AND ASSOCIATED FRACTURES REPORTED BY THIS PATIENT: Please refer to Bone Health Questionnaire in the EMR CURRENT THERAPY: Please refer to Bone Health Questionnaire in the EMR TECHNICAL LIMITATIONS: RESULTS: Left Femoral Neck: 0.812 g/cm2, Z-score -2.2 Left Total Hip: 0.705 g/cm2, Z-score -3.0 Right Forearm, Distal 1/3 of Radius: 0.669 g/cm2, Z-score -0.5 No comparison data - the patient has not had a previous bone density in the [facility] or the previous bone density was performed on a different DXA machine (new, updated model or different location) within the [facility]. VERTEBRAL FRACTURE ASSESSMENT Not performed. TRABECULAR BONE ASSESSMENT TBS not performed: not ordered Impression: THE LOWEST Z-SCORE IS -3.0 IN THE LEFT HIP 1) DIAGNOSIS (based on BMD alone): BELOW THE EXPECTED RANGE FOR AGE though the expected range for age -Caution: medical conditions other than osteoporosis may cause low bone density, such as osteomalacia or renal osteodystrophy. Clinical correlation is necessary. 2) FRACTURE RISK (based on BMD alone): Fracture data based solely on BMD is not available in this age group to make this assessment. However, fracture risk may be increased independent of BMD, particularly in patients taking corticosteroids or patients with a prior fragility fracture. RECOMMENDATIONS: Follow-up as clinically indicated. Patients that are taking corticosteroids, are transplant recipients or have hyperparathyroidism should have annual follow-up. Follow-up scans should always be done on the same machine for accurate comparison. FOR MORE INFORMATION ABOUT DIAGNOSIS AND TREATMENT: [facility] Center for Osteoporosis and Metabolic Bone Disease:? www.ccf.org/arthritis/o steo National Osteoporosis Foundation:? www.nof.org International Society of Clinical Densitometry www.iscd.org Instructional Developer: BAY Transcribe Date/Time: Aug 01 2024 2:40P Dictated by : JACK SANCHES MD This examination was interpreted and the report reviewed and electronically signed by: JACK SANCHES MD on Aug 01 2024 2:41PM EST [facility] Provider, [facility] - 08/01/2024 * * *Final Report* * * DATE OF EXAM: Aug 01 2024 11:49AM LDX 0804 - BD DXA - AXIAL SKELETON / PROCEDURE REASON: multiple diagnoses * * * * Physician Interpretation * * * * EXAMINATION: DXA BONE DENSITOMETRY BD DXA - AXIAL SKELETON PATIENT DEMOGRAPHICS: Age: 28 years, Gender: Female SCANNER INFORMATION: DXA Model: [facility] [employer] [id number] Date Scanned: 08/01/2024 11:49 AM CLINICAL HISTORY: DIAGNOSTIC Paraplegia (HCC) Idiopathic osteoporosis . RISK FACTORS FOR OSTEOPOROSIS AND ASSOCIATED FRACTURES REPORTED BY THIS PATIENT: Please refer to Bone Health Questionnaire in the EMR CURRENT THERAPY: Please refer to Bone Health Questionnaire in the EMR TECHNICAL LIMITATIONS: RESULTS: Left Femoral Neck: 0.812 g/cm2, Z-score -2.2 Left Total Hip: 0.705 g/cm2, Z-score -3.0 Right Forearm, Distal 1/3 of Radius: 0.669 g/cm2, Z-score -0.5 No comparison data - the patient has not had a previous bone density in the [facility] or the previous bone density was performed on a different DXA machine (new, updated model or different location) within the [facility]. VERTEBRAL FRACTURE ASSESSMENT Not performed. TRABECULAR BONE ASSESSMENT TBS not performed: not ordered Impression: THE LOWEST Z-SCORE IS -3.0 IN THE LEFT HIP 1) DIAGNOSIS (based on BMD alone): BELOW THE EXPECTED RANGE FOR AGE though the expected range for age -Caution: medical conditions other than osteoporosis may cause low bone density, such as osteomalacia or renal osteodystrophy. Clinical correlation is necessary. 2) FRACTURE RISK (based on BMD alone): Fracture data based solely on BMD is not available in this age group to make this assessment. However, fracture risk may be increased independent of BMD, particularly in patients taking corticosteroids or patients with a prior fragility fracture. RECOMMENDATIONS: Follow-up as clinically indicated. Patients that are taking corticosteroids, are transplant recipients or have hyperparathyroidism should have annual follow-up. Follow-up scans should always be done on the same machine for accurate comparison. FOR MORE INFORMATION ABOUT DIAGNOSIS AND TREATMENT: [facility] Center for Osteoporosis and Metabolic Bone Disease:? www.[email or web address].org/arthritis/o steo National Osteoporosis Foundation:? www.nof.org International Society of Clinical Densitometry www.iscd.org Instructional Developer: BAY Transcribe Date/Time: Aug 01 2024 2:40P Dictated by : JACK SANCHES MD This examination was interpreted and the report reviewed and electronically signed by: JACK SANCHES MD on Aug 01 2024 2:41PM EST [facility] Radiology Study observation (narrative) [facility] DXA Skeletal system.axial Vi ews for bone densityOrdered By: [facility] Provider on 08-01-2024 [facility] CNOVon 07-19-2024 CNOV Office Visit ([facility] KAYLEEN KOVACS ([id number]) 1995 F Date Time Provider Department 07/19/24 12:00 PM NATY BENEDICT [facility] During your visit today, we recorded the following information about you: Carolann cMcarthy MA 07/22/2024 9:14 AM Signed 07/18/2024 PROMIS Global Health Physical Health Summary Physical health: Poor Everyday physical activity, ability: Not at all Fatigue: Very severe Pain level: 8 General health: Poor Social activities/roles, ability: Poor Physical Health T-Score 19.9 (Poor) Physical Health Percentile 0 PROMIS Global Health Mental Health Summary Quality of life: Poor Mental health (mood,thinking): Poor Social satisfaction: Poor Emotional problems (anxious,depressed): Always Mental Health T-Score 21.2 (Poor) Mental Health Percentile 0 PHQ-9 Score: 16(Moderately Severe Depression) PHQ-9 Self-Harm: Not at all MOE-7 Score: 16(Severe Anxiety) NEURO-QOL Cognitive Function T-Score 44(Mild Dysfunction) PROMIS Physical Function T-Score 22(Severe Dysfunction) PROMIS Physical Function Percentile 0 PROMIS Pain Interference T-Score 75(Severe) PROMIS Pain Interference Percentile 1 Percentiles provide an indication of how a patient's score ranks in relation to the [place] general population. > 31st percentile is within normal limits or better *< 31st percentile is at least ? SD worse than population, which may be clinically relevant < 16th percentile is at least 1 SD worse than population and warrants attention Carolann Mccarthy MA 07/22/2024 9:14 AM Signed 07/18/2024 PROMIS Global Health Physical Health Summary Physical health: Poor Everyday physical activity, ability: Not at all Fatigue: Very severe Pain level: 8 General health: Poor Social activities/roles, ability: Poor Physical Health T-Score 19.9 (Poor) Physical Health Percentile 0 PROMIS Global Health Mental Health Summary Quality of life: Poor Mental health (mood,thinking): Poor Social satisfaction: Poor Emotional problems (anxious,depressed): Always Mental Health T-Score 21.2 (Poor) Mental Health Percentile 0 PHQ-9 Score: 16(Moderately Severe Depression) PHQ-9 Self-Harm: Not at all MOE-7 Score: 16(Severe Anxiety) NEURO-QOL Cognitive Function T-Score 44(Mild Dysfunction) PROMIS Physical Function T-Score 22(Severe Dysfunction) PROMIS Physical Function Percentile 0 PROMIS Pain Interference T-Score 75(Severe) PROMIS Pain Interference Percentile 1 Percentiles provide an indication of how a patient's score ranks in relation to the [place] general population. > 31st percentile is within normal limits or better *< 31st percentile is at least ? SD worse than population, which may be clinically relevant < 16th percentile is at least 1 SD worse than population and warrants attention Naty Benedict MD 07/22/2024 9:14 AM Signed [facility]AN[facility] Medicine Attending Outpatient Note Name: Kayleen Kovacs [id number] Date of Service: 07/19/24 Last seen: 01/09/24 MRI Knee to assess for ligament injury [...] trauma and assess for pain management needs Chief complaint: Pt had virtual appointment with Dr Gillian Millan Onset: popping in back when bends over around 07/03/24 Location: mid to lower Character: achy-stab shooting Radiation: up and down spine Intensity: 9 when it hits Duration: daily Palliative: laying on side with heat Provocative: bending over or turning to right Treatment that did not help:: ice Hx of Injury: Patient Summary: Kayleen Kovacs is a 28 yo female with a PMH for Anxiety, Borderline personality disorder, Obesity, Seizure disorder, Polycystic ovary syndrome who was admitted to [facility] on 06/26/22 following a fall due to seizure with suspected SCI due to L1 burst fracture. She was taken to the OR on 06/26/22 by Getachew Leong for T11 - L3 PSDF. Hospital course complicated by Neuropathic pain and UTI. She was sent to inpatient rehab on 07/08/22 and discharged on 07/28/22. She was admitted to [facility] on 05/05/23 with continued pain with imaging c/w nonhealing L1 fracture. She was taken to the OR on on 05/05/23 by Getachew Mendez for T12 -L2 ASDF with L1 corpectomy and discectomy at T12-L1 and L1-L2. Hospital course complicated by Pulmonary embolism and left hemothorax s/p video assisted thoracoscopy, VATS, chest tube placement and rib fragment removal by Dr Park (05/17/23). Medications: Current Outpatient Med (more content not included)... Normal [facility] XR LUMBAR 2V AP/LATon 2024 XR LUMBAR 2V AP/LAT * * *Final Report* * * DATE OF EXAM: Jul 19 2024 1:09PM SFX [id number] - XR LUMBAR 2V AP/LAT / PROCEDURE REASON: Fixation hardware in spine * * * * Physician Interpretation * * * * XR THORACIC 2V AP/LAT, XR LUMBAR 2V AP/LAT Ordering Physician: NATY BENEDICT THORACIC SPINE SERIES 2 VIEWS AND LUMBAR SPINE SERIES 3 VIEWS Clinical Statement: Fixation hardware. Comparison 2023 FINDINGS: No acute fractures identified within the thoracic spine. Degenerative changes are minimal in the lower thoracic spine. Postoperative changes status post fusion with posterior construct from the T11-L3 levels with L1 interbody fusion cage and left-sided T12-L2 side plate. The hardware is intact and in unchanged position. No change in alignment. Wedging of the L1 vertebral body is unchanged. Mild degenerative disc disease and facet arthropathy in the lower lumbar spine similar to the prior study. Slight lumbar levoscoliosis. No spondylolisthesis. Screw and plate fixation left 10th rib IMPRESSION: Postoperative changes status post L1 corpectomy with posterior construct and fusion from the T11-L3 levels with interbody fusion cage and and left T12-L2 side plate. The hardware is intact and in unchanged position. No change in alignment. Instructional Developer: PSCB Transcribe Date/Time: Jul 23 2024 4:12A Dictated by : WILL BARRAZA MD This examination was interpreted and the report reviewed and electronically signed by: WILL BARRAZA MD on Jul 23 2024 6:46AM EST [id number] Normal [facility] XR THORACIC 2V AP/LATon 07-03 XR THORACIC 2V AP/LAT * * *Final Report* * * DATE OF EXAM: Jul 19 2024 1:09PM SFX [id number] - XR THORACIC 2V AP/LAT / PROCEDURE REASON: multiple diagnoses * * * * Physician Interpretation * * * * XR THORACIC 2V AP/LAT, XR LUMBAR 2V AP/LAT Ordering Physician: NATY BENEDICT THORACIC SPINE SERIES 2 VIEWS AND LUMBAR SPINE SERIES 3 VIEWS Clinical Statement: Fixation hardware. Comparison 2023 FINDINGS: No acute fractures identified within the thoracic spine. Degenerative changes are minimal in the lower thoracic spine. Postoperative changes status post fusion with posterior construct from the T11-L3 levels with L1 interbody fusion cage and left-sided T12-L2 side plate. The hardware is intact and in unchanged position. No change in alignment. Wedging of the L1 vertebral body is unchanged. Mild degenerative disc disease and facet arthropathy in the lower lumbar spine similar to the prior study. Slight lumbar levoscoliosis. No spondylolisthesis. Screw and plate fixation left 10th rib IMPRESSION: Postoperative changes status post L1 corpectomy with posterior construct and fusion from the T11-L3 levels with interbody fusion cage and and left T12-L2 side plate. The hardware is intact and in unchanged position. No change in alignment. Instructional Developer: BAY Transcribe Date/Time: Jul 23 2024 4:12A Dictated by : WILL BARRAZA MD This examination was interpreted and the report reviewed and electronically signed by: WILL BARRAZA MD on Jul 23 2024 6:46AM EST [id number] [facility] ([facility]) KAYLEEN KOVACS ([id number]) 1995 F Date Time Provider Department 07/15/24 KAREN SALAZAR During your visit today, we recorded the following information about you: Marilin Hudson 07/15/2024 11:00 AM Signed General call : Full name of person calling: Kayleen Kovacs Relationship to patient: self Phone # : [facility] Fax # : [phone] Reason for call: patient called to have labs faxed to Patient of Dr. Paredes Labs faxed Ilana Massey RN 07/15/2024 12:08 PM Signed Lab form faxed to [facility] [phone]. Ilana Massey RN Allergies As of Date: 07/15/2024 Noted Allergy Reaction HYDROXYZINE 12/14/2017 14 - Other: See Comments 2 - Rash Comments: Other reaction(s): AOF Other Reaction(s): AOF CYMBALTA (DULOXETINE) 11/17/2023 14 - Other: See Comments Comments: Suicidal ideation Date Reviewed: 04/11/2024 Reviewed by: Carol Neal APRN.HARNESS INSPECTOR - Fully Assessed Reason for Visit: Other [[id number]] Cmt: labs Prescriptions as of 07/15/2024 - zonisamide (ZONEGRAN) 100 mg capsule Take 1 capsule by mouth daily at bedtime for 7 days, THEN 2 capsules daily at bedtime. - ergocalciferol, vitamin D2, (VITAMIN D2 ORAL) Take 50,000 Units by mouth one time a week. - ascorbic acid, vitamin C, (VITAMIN C) 500 mg tablet Take 500 mg by mouth once daily. - lamoTRIgine (LAMICTAL) 150 mg tablet 1 tablet twice a day - cloNIDine HCl (CATAPRES) 0.3 mg tablet Take 0.3 mg by mouth. - ibuprofen (MOTRIN) 800 mg tablet Take 800 mg by mouth three times a day as needed. - aspirin/acetaminophen/c affeine (EXCEDRIN EXTRA STRENGTH ORAL) Take by mouth two times a day. - phentermine HCl (ADIPEX-P ORAL) Take by mouth once daily. - oxybutynin ER (DITROPAN XL) 10 mg 24 hr tablet Take 10 mg by mouth once daily. - pregabalin (LYRICA) 300 mg capsule Take 300 mg by mouth two times a day. - QUEtiapine (SEROQUEL) 100 mg tablet Take 200 mg by mouth daily at bedtime. - busPIRone (BUSPAR) 15 mg tablet Take 30 mg by mouth two times a day. - sertraline (ZOLOFT) 25 mg tablet Take 25 mg by mouth once daily. - ondansetron (ZOFRAN) 4 mg tablet Take 4 mg by mouth every 8 hours as needed for nausea/vomiting. - baclofen 15 mg tablet Take 1 tablet by mouth three times a day. Problem List As Of Date 07/15/2024 Noted Resolved Obstructive sleep apnea [G47.33] 12/04/2023 Bipolar 1 disorder with moderate melinda (HCC) [F*10/22/2018 Chronic hepatitis C virus infection (HCC) [B18.*01/20/2023 Closed fracture of T12 vertebra with spinal cor*06/26/2022 Closed compression fracture of body of L1 verte*06/26/2022 Generalized-onset seizures (HCC) [R56.9] 01/19/2023 Neuropathic pain [M79.2] 01/10/2023 Mild intermittent asthma without complication [*10/23/2018 Nonintractable generalized idiopathic epilepsy *10/05/2023 Osteopenia determined by x-ray [M85.80] 04/08/2024 Complete paraplegia (HCC) [G82.21] 05/05/2023 Anxiety and depression [F41.9, F32.A] 04/08/2024 Encounter Status:Closed by ILANA DAVALOS on 07/15/[address] [facility] Provider Letteron 07-08-2024 Provider Letter Provider Letter July 08, 2024 KAYLEEN KOVACS [address] [place] [address] : 1995 To Whom It May Concern, Please excuse the patient above from Jury Duty. They have multiple medical conditions that would prohibit sitting through jury duty. Respectfully, MANOJ Davies-Jurgen [address] [address] [facility] Telephone ([id number]) BRIANKAYLEEN DE LA GARZA ([id number]) 1995 F Date Time Provider Department 07/04/24 NATY BENEDICT REMS31 During your visit today, we recorded the following information about you: oRxana Do 07/04/2024 4:19 PM Signed Ms. Kovacs called stating she has a SCI and has had increased back pain since yesterday morning. She stated it feels like she has a lot of pressure when sitting and has increased pain. She was wanting to speak to Dr. Benedict regarding this. She did not want to go to the ER. I offered to make her an appointment with Dr. Benedict, and the first available slot is 07/19/24. Please advise Janice Stapleton, RN 07/05/2024 11:08 AM Signed Called pt - LVM to call office. Attempt to get more pain information. Janice Sigala RN [facility]: 01/09/24 Assessment Traumatic injury to left knee with [...] placement and rib fragment removal by Dr Park (05/17/23). Sleep Apnea Anxiety Borderline personality disorder [...] trauma and assess for pain management needs Allergies As of Date: 07/04/2024 Noted Allergy Reaction HYDROXYZINE 12/14/2017 14 - Other: See Comments 2 - Rash Comments: Other reaction(s): AOF Other Reaction(s): AOF CYMBALTA (DULOXETINE) 11/17/2023 14 - Other: See Comments Comments: Suicidal ideation Date Reviewed: 04/11/2024 Reviewed by: Carol Neal APRN.HARNESS INSPECTOR - Fully Assessed Reason for Visit: increased pain [Other] Prescriptions as of 07/09/2024 - zonisamide (ZONEGRAN) 100 mg capsule Take 1 capsule by mouth daily at bedtime for 7 days, THEN 2 capsules daily at bedtime. - ergocalciferol, vitamin D2, (VITAMIN D2 ORAL) Take 50,000 Units by mouth one time a week. - ascorbic acid, vitamin C, (VITAMIN C) 500 mg tablet Take 500 mg by mouth once daily. - lamoTRIgine (LAMICTAL) 150 mg tablet 1 tablet twice a day - cloNIDine HCl (CATAPRES) 0.3 mg tablet Take 0.3 mg by mouth. - ibuprofen (MOTRIN) 800 mg tablet Take 800 mg by mouth three times a day as needed. - aspirin/acetaminophen/c affeine (EXCEDRIN EXTRA STRENGTH ORAL) Take by mouth two times a day. - phentermine HCl (ADIPEX-P ORAL) Take by mouth once daily. - oxybutynin ER (DITROPAN XL) 10 mg 24 hr tablet Take 10 mg by mouth once daily. - pregabalin (LYRICA) 300 mg capsule Take 300 mg by mouth two times a day. - QUEtiapine (SEROQUEL) 100 mg tablet Take 200 mg by mouth daily at bedtime. - busPIRone (BUSPAR) 15 mg tablet Take 30 mg by mouth two times a day. - sertraline (ZOLOFT) 25 mg tablet Take 25 mg by mouth once daily. - ondansetron (ZOFRAN) 4 mg tablet Take 4 mg by mouth every 8 hours as needed for nausea/vomiting. - baclofen 15 mg tablet Take 1 tablet by mouth three times a day. Problem List As Of Date 07/04/2024 Noted Resolved Obstructive sleep apnea [G47.33] 12/04/2023 Bipolar 1 disorder with moderate melinda (HCC) [F*10/22/2018 Chronic hepatitis C virus infection (HCC) [B18.*01/20/2023 Closed fracture of T12 vertebra with spinal cor*06/26/2022 Closed compression fracture of body of L1 verte*06/26/2022 Generalized-onset seizures (HCC) [R56.9] 01/19/2023 Neuropathic pain [M79.2] 01/10/2023 Mild intermittent asthma without complication [*10/23/2018 Nonintractable generalized idiopathic epilepsy *10/05/2023 Osteopenia determined by x-ray [M85.80] 04/08/2024 Complete paraplegia (HCC) [G82.21] 05/05/2023 Anxiety and depression [F41.9, F32.A] 04/08/2024 Encounter Status:Closed by JANICE SIGALA on 07/09/24 [facility] Ambulatory Visit Summaryon 1 08-20-2023 Ambulatory Visit Summary Ambulatory Visit Summary KAYLEEN KOVACS :1995 Visit Date:06/19/2024 Ambulatory Visit Instructions Your Diagnosis Paraplegia Seizure disorder Wheelchair dependent Incomplete spinal cord syndrome BMI 30.0-30.9,adult Obesity (BMI 30-39.9) Vapes nicotine containing substance Your Care Team Attending Physician - Earline Koroma Primary Care Physician - Earline Koroma This Is Your Medications List Misc Prescription (LIFT CHAIR) ascorbic acid (Vitamin C 500 mg Tab) baclofen (baclofen 20 mg Tab) buprenorphine-naloxone (Suboxone 8 mg-2 mg sublingual film) busPIRone (busPIRone 30 mg oral tablet) clonidine [...] (2022), section, Tonsillectomy. Discharge Vitals Temperature (Tympanic) 37.3 ???C Heart Rate (Peripheral) 97 Respiratory Rate 16 Blood Pressure 112/70 Height 175 cm Height 69 in Weight 93 kg Weight 205.03 lb BMI 30.37 Medications What How Much When Why Instructions New Misc Prescription (LIFT CHAIR) See instructions Paraplegia Seizure disorder Wheelchair dependent POWER LIFT CHAIR Printed Prescription Unchanged ascorbic acid (Vitamin C 500 mg Tab) 1 Tablets By Mouth Every day Back pain with history of spinal surgery Pain management Back pain Paraplegia Unchanged baclofen (baclofen 20 mg Tab) 1 Tablets By Mouth 3 times a day Back pain with history of spinal surgery Pain management Back pain Paraplegia Unchanged buprenorphine-naloxone (Suboxone 8 mg-2 mg sublingual film) DISSOLVE 1 film UNDER THE TONGUE EVERY DAY Unchanged busPIRone (busPIRone 30 mg oral tablet) 1 Tablets By Mouth 2 times a day Unchanged clonidine (cloNIDine 0.3 mg Tab) See instructions TAKE 1 TABLET BY MOUTH TWICE DAILY Unchanged ergocalciferol (Vitamin D 50,000 intl units (1.25 mg) oral capsule) 1 Capsules By Mouth Every week Back pain with history of spinal surgery Pain management Back pain Paraplegia Unchanged etodolac (etodolac 400 mg Tab) 1 Tablets By Mouth 2 times a day as needed for for pain Unchanged ibuprofen (ibuprofen 800 mg Tab) See instructions TAKE 1 TABLET BY MOUTH EVERY 8 HOURS NEEDED FOR PAIN Unchanged lamotrigine (lamotrigine 100 mg Tab) See instructions 125mg bid increased by neurologist Unchanged ondansetron (ondansetron 4 mg Dis Tab) See instructions DISSOLVE 1 (ONE) TABLET ON THE TONGUE EVERY 6 HOURS NEEDED FOR NAUSEA AND VOMITING Unchanged oxybutynin (oxybutynin 10 mg ER Tab) See instructions TAKE 1 TABLET EVERY DAY Unchanged phentermine (phentermine 37.5 mg Tab) 1 Tablets By Mouth Every day BMI=29.68 Unchanged pregabalin (pregabalin 300 mg Cap) 1 Capsules By Mouth 2 times a day Unchanged quetiapine (quetiapine 100 mg Tab) 1 Tablets By Mouth Every day Unchanged sertraline (sertraline 50 mg Tab) 1.5 Tablets By Mouth Every day Unchanged tizanidine (tiZANidine 4 mg Tab) See instructions 1 tab(s) Oral every 6 hours as needed Allergies Cymbalta (Suicide) hydrOXYzine (AOF, Eruption) propofol (Anaphylaxis) sodium hypochlorite topical (Unknown, Urticaria) Problems Ongoing - Any problem that you are currently receiving treatment for. Acute gastroenteritis Anxiety and depression Apnea Back pain Back pain with history of spinal surgery Bladder spasms BMI 30.0-30.9,adult BMI 32.0-32.9,adult Bronchitis Chronic hepatitis C Comminuted fracture of patella Constipation Diarrhea Encounter for weight management Gasping for breath H/O chest tube placement Hepatitis C Incomplete spinal cord syndrome Left knee injury Left otitis media Obesity (BMI 30-39.9) Overweight (BMI 25.0-29.9) Pain management Paraplegia Rib pain on left side Right otitis media Right-sided chest wall pain Seizure disorder Skin infection Sleep apnea Smoker Snoring Sore throat Spinal cord injury at T7-T12 level Stomach cramps Wheelchair dependent Witnessed episode of apnea Patient Survey You may receive a survey via text or e-mail asking about your office visit. Please share your experience with us by completing your survey. We appreciate your feedback and thank you for choosing us for your care. Normal [facility] Family Medicine Office/Clini c Noteon 06-19-2024 Family Medicine Office/Clinic Note Family Medicine Office/Clinic Note Chief Complaint Discuss lift chair HPI Staff Kayleen is a 28 year old female presenting to discuss an order for a lift chair S/P spinal cord injury T7-T12, paraplegia Has been taking Suboxone for pain. No longer taking Tramadol. 11/09 History of Present Illness pt presents today in need of order for lift chair Review of Systems PHQ Score Initial Depression Screen Score: 0 SCORE Physical Exam Vitals & Measurements T: 37.3 ???C(Tympanic) HR: 97(Peripheral) RR: 16 BP: 112/70 SpO2: 98% HT: 69 in HT: 175 cm WT: 93 kg WT: 205.03 lb BMI: 30.37 General: alert, no acute distress ENMT: oral mucosa moist, no pharyngeal erythema or exudate Cardiovascular: regular rate and rhythm, normal peripheral perfusion Respiratory: Lungs CTA, respirations non labored Extremities: no deformity, no trauma Neurological: oriented x 4, LOC appropriate for age, CN II-XII intact, motor strength equal & normal bilaterally, speech normal Assessment/Plan 1. Incomplete spinal cord syndrome (G95.89: Other specified diseases of spinal cord) pt had spinal cord injury. is wheelchair dependant. is in need of power lift chair. will provide order for lift chair. she would benefit from this chair in order to make transfer to w/c much easier. 2. Wheelchair dependent (Z99.3: Dependence on wheelchair) uses wheelchair Ordered: [facility] Prescription, LIFT CHAIR, See Instructions, 1 EA, 0, POWER LIFT CHAIR, Supply 3. BMI 30.0-30.9,adult (Z68.30: Body mass index [BMI] 30.0-30.9, adult) BMI education given 4. Obesity (BMI 30-39.9) (E66.9: Obesity, unspecified) see above 5. Vapes nicotine containing substance (Z72.0: Tobacco use) consider not vaping Orders: tramadol, 50 mg = 1 tab(s), Oral, q12hr, PRN for pain, 30 day supply, # 60 tab(s), Refills(s) 0, Pharmacy: [facility], 175, cm, 02/12/24 9:04:00 EDT, Height/Length Dosing, 91, kg, 02/12/24 9:08:00 EDT, Weight Dosing tramadol, 100 mg = 1 cap(s), Oral, Daily, 30 day supply, # 30 cap(s), Refills(s) 0, Pharmacy: [facility], 175, cm, 02/12/24 9:04:00 EDT, Height/Length Dosing, 91, kg, 02/12/24 9:08:00 EDT, Weight Dosing Follow-up No qualifying data available Problem List/Past Medical History Ongoing Acute gastroenteritis Anxiety and depression Apnea Back pain Back pain with history of spinal surgery Bladder spasms BMI 30.0-30.9,adult BMI 32.0-32.9,adult Bronchitis Chronic hepatitis C Comminuted fracture of patella Constipation Diarrhea Encounter for weight management Gasping for breath H/O chest tube placement Hepatitis C Incomplete spinal cord syndrome Left knee injury Left otitis media Obesity (BMI 30-39.9) Overweight (BMI 25.0-29.9) Pain management Paraplegia Rib pain on left side Right otitis media Right-sided chest wall pain Seizure disorder Skin infection Sleep apnea Smoker Snoring Sore throat Spinal cord injury at T7-T12 level Stomach cramps Wheelchair dependent Witnessed episode of apnea Historical No qualifying data Procedure/Surgical History Spinal fusion (2022), section, Tonsillectomy. Medications baclofen 20 mg Tab, 20 mg= 1 tab(s), Oral, TID, 3 refills busPIRone 30 mg oral tablet, 30 mg= 1 tab(s), Oral, BID cloNIDine 0.3 mg Tab, See Instructions etodolac 400 mg Tab, 400 mg= 1 tab(s), Oral, BID, PRN ibuprofen 800 mg Tab, See Instructions lamotrigine 100 mg Tab, See Instructions LIFT CHAIR, See Instructions ondansetron 4 mg Dis Tab, See Instructions oxybutynin 10 mg ER Tab, See Instructions phentermine 37.5 mg Tab, 37.5 mg= 1 tab(s), Oral, Daily, Not taking pregabalin 300 mg Cap, 300 mg= 1 cap(s), Oral, BID quetiapine 100 mg Tab, 100 mg= 1 tab(s), Oral, Daily sertraline 50 mg Tab, 75 mg= 1.5 tab(s), Oral, Daily Suboxone 8 mg-2 mg sublingual film tiZANidine 4 mg Tab, See Instructions Vitamin C 500 mg Tab, 500 mg= 1 tab(s), Oral, Daily, 1 refills Vitamin D 50,000 intl units (1.25 mg) oral capsule, [address] International_Unit= 1 cap(s), Oral, qWeek, 3 refills Allergies Cymbalta (Suicide) hydrOXYzine (AOF, Eruption) propofol (Anaphylaxis) sodium hypochlorite topical (Unknown, Urticaria) Social History Alcohol - Denies Alcohol Use, 02/03/2020 Past. Liquor. 1-2 times per month., 06/19/2024 Substance Abuse - Denies Substance Abuse, 02/03/2020 Never., 06/19/2024 Tobacco Former smoker, quit more than 30 days ago, Vape Tobacco Use:. Current vaping or e-cigarette use Smokeless Tobacco Use:. Cigarettes, Vaping, Household tobacco concerns: No. Yes, 06/19/2024 Family History Ovarian cancer: Grandparent. Immunizations Vaccine Date Status Comments influenza virus vaccine, inactivated - Not Given Patient Refuses influenza virus vaccine, inactivated 07/17/2018 Recorded influenza virus vaccine, inactivated 06/11/2018 Recorded poliovirus vaccine, inactivated 02/24/2003 Recorded measles/mumps/rubella vi (more content not included)... Normal [facility] Comment on above: Result Comment: Elec tronically Signed By: Earline Koroma\.br\Date and Time Signed: 06/19/24 13:00 PEPITO Tejeda 06-04-2024 [facility] Telephone ([id number]) KAYLEEN KOVACS ([id number]) 1995 F Date Time Provider Department 06/04/24 KAREN SALAZAR [id number] During your visit today, we recorded the following information about you: [email or web address] Junior Chanda 06/04/2024 2:29 PM Signed ORDERS Person requesting order: Kayleen Kovacs Phone number: [phone] Order being requested: lab orders to local lab facility Facility: [place], [place] Patient of Ilana West RN 06/05/2024 11:44 AM Signed Lab form faxed to [place], [place] Ilana Massey RN Allergies As of Date: 06/04/2024 Noted Allergy Reaction HYDROXYZINE 12/14/2017 14 - Other: See Comments 2 - Rash Comments: Other reaction(s): AOF Other Reaction(s): AOF CYMBALTA (DULOXETINE) 11/17/2023 14 - Other: See Comments Comments: Suicidal ideation Date Reviewed: 04/11/2024 Reviewed by: Carol Neal APRN.HARNESS INSPECTOR - Fully Assessed Prescriptions as of 06/05/2024 - zonisamide (ZONEGRAN) 100 mg capsule Take 1 capsule by mouth daily at bedtime for 7 days, THEN 2 capsules daily at bedtime. - ergocalciferol, vitamin D2, (VITAMIN D2 ORAL) Take 50,000 Units by mouth one time a week. - ascorbic acid, vitamin C, (VITAMIN C) 500 mg tablet Take 500 mg by mouth once daily. - lamoTRIgine (LAMICTAL) 150 mg tablet 1 tablet twice a day - cloNIDine HCl (CATAPRES) 0.3 mg tablet Take 0.3 mg by mouth. - ibuprofen (MOTRIN) 800 mg tablet Take 800 mg by mouth three times a day as needed. - aspirin/acetaminophen/c affeine (EXCEDRIN EXTRA STRENGTH ORAL) Take by mouth two times a day. - phentermine HCl (ADIPEX-P ORAL) Take by mouth once daily. - oxybutynin ER (DITROPAN XL) 10 mg 24 hr tablet Take 10 mg by mouth once daily. - pregabalin (LYRICA) 300 mg capsule Take 300 mg by mouth two times a day. - QUEtiapine (SEROQUEL) 100 mg tablet Take 200 mg by mouth daily at bedtime. - busPIRone (BUSPAR) 15 mg tablet Take 30 mg by mouth two times a day. - sertraline (ZOLOFT) 25 mg tablet Take 25 mg by mouth once daily. - ondansetron (ZOFRAN) 4 mg tablet Take 4 mg by mouth every 8 hours as needed for nausea/vomiting. - baclofen 15 mg tablet Take 1 tablet by mouth three times a day. Problem List As Of Date 06/04/2024 Noted Resolved Obstructive sleep apnea [G47.33] 12/04/2023 Bipolar 1 disorder with moderate melinda (HCC) [F*10/22/2018 Chronic hepatitis C virus infection (HCC) [B18.*01/20/2023 Closed fracture of T12 vertebra with spinal cor*06/26/2022 Closed compression fracture of body of L1 verte*06/26/2022 Generalized-onset seizures (HCC) [R56.9] 01/19/2023 Neuropathic pain [M79.2] 01/10/2023 Mild intermittent asthma without complication [*10/23/2018 Nonintractable generalized idiopathic epilepsy *10/05/2023 Osteopenia determined by x-ray [M85.80] 04/08/2024 Complete paraplegia (HCC) [G82.21] 05/05/2023 Anxiety and depression [F41.9, F32.A] 04/08/2024 Encounter Status:Closed by ILANA DAVALOS on 06/05/24 [facility] Ileana 05-23-2024 [facility] KAYLEEN KOVACS ([id number]) 1995 F Date Time Provider Department 05/23/24 TANGELA PAULA During your visit today, we recorded the following information about you: Macrina Barba 05/23/2024 3:52 PM Signed PT MRI was denied by insurance due to the lack of medical necessary information. PT is upset and is requesting a return call to discuss next steps in care. Call [phone]. Penny Rodriguez, ROJAS 05/23/2024 4:20 PM Signed ======= ORM IFX DOS 05/22/2024 ======= Payor: [employer] / [employer] Hospital: [facility] physician representative, web used: [facility] web Portal Case reference number: [id number] Procedure(s) denied: 53805 Procedure(s) approved: NA Diagnosis code(s): Z91.81 ,Z87.828 , M54.50 May I know when case was denied?: 05/17/2024 ORM Team please see request for additional information Rep advised reconsideration is available: Yes What is the reconsideration timeframe?: 5 Businesses days How can it be done?: [phone] - Fax If no additional information available, please send to [facility] Peer to Peer Is the peer to peer available? Yes Is peer to peer for consultation only? No May I have the P2P ph# along with prompts? [phone] opt 2 (#[phone]) / opt 1 What is the time frame for the peer to peer? 5 Business days Would the P2P timeframe cover all services or is it specific for a type of service? Yes Does the P2P have to be scheduled or is it done right away? Right away Is it required for the provider to schedule the P2P or can this be done by his medical physics professor? N/A Who can complete the P2P (Doctor, MARISEL, INSULATION HOSEMAN)? Doctor, MARISEL, INSULATION HOSEMAN Would the peer to peer be available if services have been rendered? Yes Is the appeal available? Yes Can I have the appeal ph# along with prompts? N/A Can I have the appeal fax#? [phone] Can I have the appeal mailing address? [facility] [address] [place] [address] Attention to? [employer] Appeals Department Is it necessary to include any form? Yes: Provider form: [email or web address] [email or web address]/ Member form: [email or web address]- [email or web address]- -[email or web address]/ What is the appeal time frame? 180 calendar days Denial reason : Your doctor?s request for a(n) Lumbar Spine MRI (Magnetic Resonance Imaging - pictures of inside your lower spine) cannot be approved. We made this decision based on [employer] Clinical Guideline 044 for Lumbar Spine MRI. Information Relied Upon: Based on what was given, you have back pain, your doctor?s request cannot be approved. A person might need a(n) Lumbar Spine MRI if these notes have/has been given: doctor's notes that say you did six weeks of back exercises (physical therapy, chiropractic treatments, or medically directed home exercise program) in the last six months. We also need to know the number of visits you went to. If you did this, the notes do not show the dates that you did the exercises. We also need to know that you did not get better. The information we got did not include these notes. Penny Rodriguez, ROJAS 05/24/2024 8:44 AM Signed Call to patient to recommend continuing PT. No answer. Left voicemail to return call. Patient needs to complete 6 visits across at least 6 weeks in the past 6 months. Macrina Barba 05/24/2024 2:29 PM Signed PT is calling back. She fell after having a seizure and has a fracture spine. She cannot complete PT. Call to advise. Call [phone]. Allergies As of Date: 05/23/2024 Noted Allergy Reaction HYDROXYZINE 12/14/2017 14 - Other: See Comments 2 - Rash Comments: Other reaction(s): AOF Other Reaction(s): AOF CYMBALTA (DULOXETINE) 11/17/2023 14 - Other: See Comments Comments: Suicidal ideation Date Reviewed: 04/11/2024 Reviewed by: Carol Neal APRN.HARNESS INSPECTOR - Fully Assessed Reason for Visit: Insurance Authorization [[id number]] Prescriptions as of 06/27/2024 - zonisamide (ZONEGRAN) 100 mg capsule Take 1 capsule by mouth daily at bedtime for 7 days, THEN 2 capsules daily at bedtime. - ergocalciferol, vitamin D2, (VITAMIN D2 ORAL) Take 50,000 Units by mouth one time a week. - ascorbic acid, vitamin C, (VITAMIN C) 500 mg tablet Take 500 mg by mouth once daily. - lamoTRIgine (LAMICTAL) 150 mg tablet 1 tablet twice a day - cloNIDine HCl (CATAPRES) 0.3 mg tablet Take 0.3 mg by mouth. - ibuprofen (MOTRIN) 800 mg tablet Take 800 mg by mouth three times a day as needed. - aspirin/acetaminophen/c affeine (EXCEDRIN EXTRA STRENGTH ORAL) Take by mouth two times a day. - phentermine HCl (ADIPEX-P ORAL) Take by mouth once daily. - oxybutynin ER (DITROPAN XL) 10 mg 24 hr tablet Take 10 mg by mouth once daily. - pregabalin (LYRICA) 300 mg capsule Take 300 mg by mouth two times a day (more content not included)... Normal [facility] XR Knee - left 4 [facility] Result: AP lateral and oblique nonweightbearing films taken in the office today demonstrate good healing of the transverse fracture of the patella with no displacement as well as healing of the plateau [facility] Radiology Study observation (narrative) [facility] Ambulatory Visit Summaryon 1 Ambulatory Visit Summary Ambulatory Visit Summary BRIANHOLLIKAYLEEN :1995 Visit Date:05/02/2024 Ambulatory Visit Instructions Your Care Team Attending Physician - Earline Koroma Primary Care Physician - Earline Koroma This Is Your Medications List ascorbic acid (Vitamin C 500 mg Tab) baclofen (baclofen 20 mg Tab) buprenorphine-naloxone (buprenorphine-naloxone 8 mg-2 mg sublingual film) busPIRone (busPIRone 30 mg oral tablet) clonidine [...] (2022), section, Tonsillectomy. Discharge Vitals Temperature (Tympanic) 37.1 ???C Heart Rate (Peripheral) 94 Respiratory Rate 18 Blood Pressure 132/84 Height 175 cm Height 69 in Weight 91 kg Weight 200.2 lb BMI 29.71 What to do next Scheduled Follow-Up Appointments Monday 10:00 AM EST With: Earline Koroma Where: [address] [address]- Medications What How Much When Why Instructions New phentermine (phentermine 37.5 mg Tab) 1 Tablets By Mouth Every day BMI=29.68 Pickup at [facility] Unchanged ascorbic acid (Vitamin C 500 mg Tab) 1 Tablets By Mouth Every day Back pain with history of spinal surgery Pain management Back pain Paraplegia Unchanged baclofen (baclofen 20 mg Tab) 1 Tablets By Mouth 3 times a day Back pain with history of spinal surgery Pain management Back pain Paraplegia Unchanged buprenorphine-naloxone (buprenorphine-naloxone 8 mg-2 mg sublingual film) DISSOLVE 1 film UNDER THE TONGUE DAILY Unchanged busPIRone (busPIRone 30 mg oral tablet) 1 Tablets By Mouth 2 times a day Unchanged clonidine (cloNIDine 0.3 mg Tab) See instructions TAKE 1 TABLET BY MOUTH TWICE DAILY Unchanged ergocalciferol (Vitamin D 50,000 intl units (1.25 mg) oral capsule) 1 Capsules By Mouth Every week Back pain with history of spinal surgery Pain management Back pain Paraplegia Unchanged etodolac (etodolac 400 mg Tab) 1 Tablets By Mouth 2 times a day as needed for for pain Unchanged ibuprofen (ibuprofen 800 mg Tab) See instructions TAKE 1 TABLET BY MOUTH EVERY 8 HOURS NEEDED FOR PAIN Unchanged lamotrigine (lamotrigine 100 mg Tab) See instructions 125mg bid increased by neurologist Unchanged ondansetron (ondansetron 4 mg Dis Tab) See instructions TAKE 1 TABLET BY MOUTH EVERY 6 HOURS NEEDED FOR NAUSEA and vomiting Unchanged oxybutynin (oxybutynin 10 mg ER Tab) See instructions TAKE 1 TABLET EVERY DAY Unchanged pregabalin (pregabalin 300 mg Cap) 1 [...] Back pain 30 day supply Pharmacy Information [facility]: [address] [place], [place] [phone] Allergies Cymbalta (Suicide) hydrOXYzine (AOF, Eruption) propofol [...] you for choosing us for your care. [Im (more content not included)... Normal [facility] Family Medicine Office/Clini c Noteon 05-02-2024 Family Medicine Office/Clinic Note Family Medicine Office/Clinic Note Chief Complaint Acute Sick Visit HPI Staff Kayleen is a 28 year old female presenting with stuffy dry nose, sore throat, and cough Believes she got sick from her daughter. Might be sinuses. Sx started 2-3 days ago. Denies fever. Coughing with yellow phlegm. Nasal dryness. Sore throat. History of Present Illness pt presents today for URI symptoms Review of Systems PHQ Score Initial Depression Screen Score: 6 SCORE Physical Exam Vitals & Measurements T: 37.1 ???C(Tympanic) HR: 94(Peripheral) RR: 18 BP: 132/84 SpO2: 97% HT: 69 in HT: 175 cm WT: 91 kg WT: 200.2 lb BMI: 29.71 General: alert, no acute distress ENMT: oral mucosa moist, no pharyngeal erythema or exudate, R TM red and full of fluid, thraot red Cardiovascular: regular rate and rhythm, normal peripheral perfusion Respiratory: Lungs CTA, respirations non labored Extremities: no deformity, no trauma Neurological: oriented x 4, LOC appropriate for age, CN II-XII intact, motor strength equal & normal bilaterally, speech normal Assessment/Plan 1. Bronchitis (J40: Bronchitis, not specified as acute or chronic) severe cough for about 1 week. her daughter was sick too 2. Sore throat (J02.9: Acute pharyngitis, unspecified) throat is red no exudate. will send amoxicillin 3. Right otitis media (H66.91: Otitis media, unspecified, right ear) right TM red and full of fluid 4. BMI 29.0-29.9,adult (Z68.29: Body mass index [BMI] 29.0-29.9, adult) adipex sent to pharmacy 5. Overweight (BMI 25.0-29.9) (E66.3: Overweight) see above 6. Vapes nicotine containing substance (Z72.0: Tobacco use) consider not vaping Orders: amoxicillin, 875 mg = 1 tab(s), Oral, BID, X 7 day(s), # 14 tab(s), Refills(s) 0, Pharmacy: [facility], 175, cm, 05/02/24 12:00:00 EDT, Height/Length Dosing, 91, kg, 05/02/24 12:00:00 EDT, Weight Dosing methylPREDNISolone, = 1 packet(s), Oral, As Directed, as directed on package labeling, X 6 day(s), # 21 tab(s), Refills(s) 0, Pharmacy: [facility], 175, cm, 05/02/24 12:00:00 EDT, Height/Length Dosing, 91, kg, 05/02/24 12:00:00 EDT, Weight Dosing phentermine, 37.5 mg = 1 tab(s), Oral, Daily, BMI=29.68, # 30 tab(s), Refills(s) 0, Pharmacy: [facility], 175, cm, 05/02/24 12:00:00 EDT, Height/Length Dosing, 91, kg, 05/02/24 12:00:00 EDT, Weight Dosing phentermine, 37.5 mg = 1 tab(s), Oral, Daily, BMI=29.68, # 30 tab(s), Refills(s) 0, Pharmacy: [facility], 175, cm, 04/01/24 9:24:00 EDT, Height/Length Dosing, 90.9, kg, 04/01/24 9:24:00 EDT, Weight Dosing Follow-up No qualifying data available Problem List/Past Medical History Ongoing Acute gastroenteritis Anxiety and depression Apnea Back pain Back pain with history of spinal surgery Bladder spasms BMI 32.0-32.9,adult Bronchitis Chronic hepatitis C Comminuted fracture of patella Constipation Diarrhea Encounter for weight management Gasping for breath H/O chest tube placement Hepatitis C Left knee injury Left otitis media Overweight (BMI 25.0-29.9) Pain management Paraplegia Rib pain on left side Right otitis media Right-sided chest wall pain Seizure disorder Skin infection Sleep apnea Smoker Snoring Sore throat Spinal cord injury at T7-T12 level Stomach cramps Witnessed episode of apnea Historical No qualifying data Procedure/Surgical History Spinal fusion (2022), section, Tonsillectomy. Medications amoxicillin 875 mg Tab, 875 mg= 1 tab(s), Oral, BID baclofen 20 mg Tab, 20 mg= 1 tab(s), Oral, TID, 3 refills buprenorphine-naloxone 8 mg-2 mg sublingual film busPIRone 30 mg oral tablet, 30 mg= 1 tab(s), Oral, BID cloNIDine 0.3 mg Tab, See Instructions etodolac 400 mg Tab, 400 mg= 1 tab(s), Oral, BID, PRN ibuprofen 800 mg Tab, See Instructions lamotrigine 100 mg Tab, See Instructions Medrol 4 mg Tab, 1 packet(s), Oral, As Directed ondansetron 4 mg Dis Tab, See Instructions, 1 refills oxybutynin 10 mg ER Tab, See Instructions phentermine 37.5 mg Tab, 37.5 mg= 1 [...] 50,000 intl units (1.25 mg) oral capsule, 84174 International_Unit= 1 cap(s), Oral, qWeek, 3 refills Allergies Cymbalta (Suicide) hydrOXYzine (AOF, Eruption) propofol (Anaphylaxis) sodium hypochlorite topical (Unknown, Urticaria) Social History Alcohol - Denies Alcohol Use, 02/03/2020 Substance Abuse - Denies Substance Abuse, 02/03/2020 Tobacco Former smoker, quit more than 30 days ago, Vape Tobacco Use (more content not included)... 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 She is on Lamictal and Zonegran was added 2 weeks go , if myoclonic jerks persist she will contact the office to increase ZSN to 30 mg daily Karen Amaro M.D Allergies As of Date: 04/26/2024 Noted Allergy Reaction HYDROXYZINE 12/14/2017 14 - Other: See Comments 2 - Rash Comments: Other reaction(s): AOF Other Reaction(s): AOF CYMBALTA (DULOXETINE) 11/17/2023 14 - Other: See Comments Comments: Suicidal ideation Date Reviewed: 04/11/2024 Reviewed by: Carol Neal APRN.[employer]ARNESS INSPECT[employer] - Fully Assessed Reason for Visit: Results [95] Cmt: MRI brain and EEG Prescriptions as of 04/26/2024 - zonisamide (ZONEGRAN) 100 mg capsule Take 1 capsule by mouth daily at bedtime for 7 days, THEN 2 capsules daily at bedtime. - ergocalciferol, vitamin D2, (VITAMIN D2 ORAL) Take 50,000 Units by mouth one time a week. - ascorbic acid, vitamin C, (VITAMIN C) 500 mg tablet Take 500 mg by mouth once daily. - lamoTRIgine (LAMICTAL) 150 mg tablet 1 tablet twice a day - cloNIDine HCl (CATAPRES) 0.3 mg tablet Take 0.3 mg by mouth. - ibuprofen (MOTRIN) 800 mg tablet Take 800 mg by mouth three times a day as needed. - aspirin/acetaminophen/c affeine (EXCEDRIN EXTRA STRENGTH ORAL) Take by mouth two times a day. - phentermine HCl (ADIPEX-P ORAL) Take by mouth once daily. - oxybutynin ER (DITROPAN XL) 10 mg 24 hr tablet Take 10 mg by mouth once daily. - pregabalin (LYRICA) 300 mg capsule Take 300 mg by mouth two times a day. - QUEtiapine (SEROQUEL) 100 mg tablet Take 200 mg by mouth daily at bedtime. - busPIRone (BUSPAR) 15 mg tablet Take 30 mg by mouth two times a day. - sertraline (ZOLOFT) 25 mg tablet Take 25 mg by mouth once daily. - ondansetron (ZOFRAN) 4 mg tablet Take 4 mg by mouth every 8 hours as needed for nausea/vomiting. - baclofen 15 mg tablet Take 1 tablet by mouth three times a day. Problem List As Of Date 04/26/2024 Noted Resolved Obstructive sleep apnea [G47.33] 12/04/2023 Bipolar 1 disorder with moderate melinda (HCC) [F*10/22/2018 Chronic hepatitis C virus infection (HCC) [B18.*01/20/2023 Closed fracture of T12 vertebra with spinal cor*06/26/2022 Closed compression fracture of body of L1 verte*06/26/2022 Generalized-onset seizures (HCC) [R56.9] 01/19/2023 Neuropathic pain [M79.2] 01/10/2023 Mild intermittent asthma without complication [*10/23/2018 Nonintractable generalized idiopathic epilepsy *10/05/2023 Osteopenia determined by x-ray [M85.80] 04/08/2024 Complete paraplegia (HCC) [G82.21] 05/05/2023 Anxiety and depression [F41.9, F32.A] 04/08/2024 Encounter Status:Closed by KAREN SALAZAR on 04/26/[address] [facility] MR Brain WO contraston 04-13 IMPRESSION: 1. Negative noncontrast seizure protocol MRI of the brain, allowing for motion artifact on the study. No findings to localize seizures. 2. 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 This is technically incompletely characterized in the absence of contrast administration. Instructional Developer: BAY Transcribe Date/Time: Apr 13 2024 1:06P Dictated by : FLORIN PISANO MD This examination was interpreted and the report reviewed and electronically signed by: FLORIN PISANO MD on Apr 13 2024 1:12PM [facility] DIVISION OF RADIOLOGY * * *Final Report* * * DATE OF EXAM: Apr 13 2024 1:02PM QBM 0294 - MRI BRAIN WO IVCON / PROCEDURE REASON: Convulsions, unspecified convulsion type (HCC) * * * * Physician Interpretation * * * * MRI BRAIN WITHOUT CONTRAST COMPARISON: None. HISTORY: Convulsions. New onset seizure. No history of trauma. TECHNIQUE: Multiplanar, multisequential MR images of the brain were obtained without intravenous contrast administration. RESULT: This examination is motion degraded despite repeat image acquisition. This limits evaluation. Brain volume is age appropriate. The ventricles and basal cisterns are patent and midline. No mass effect or midline shift identified. Negative for extra-axial fluid collection. No restricted diffusion is identified within the brain parenchyma to suggest acute infarction. Allowing for motion artifact, the susceptibility weighted images demonstrate no evidence for intracranial hemorrhage. There is a probable developmental venous anomaly in the right cerebellum, incompletely characterized in the absence of intravenous contrast administration. Normal arterial intracranial flow voids are seen about the [place] of [place]. The mastoid air cells are clear. The paranasal sinuses are clear. Limited visualization of the orbits is unremarkable. The extracranial soft tissues are unremarkable. Cerebellar tonsils are normal in position. Calvarial signal is within normal limits. A partially empty sella is incidentally noted. High-resolution evaluation of the mesial temporal structures was performed. This demonstrates a symmetric appearance to the bilateral hippocampal formations with preservation of the internal hippocampal architecture. No FLAIR signal abnormality is identified. The fornices and mamillary bodies appear symmetric. There is no structural/migrational lesion identified. DIVISION OF RADIOLOGY Provider, [facility] - 04/13/2024 * * *Final Report* * * DATE OF EXAM: Apr 13 2024 1:02PM QBM 0294 - MRI BRAIN WO IVCON / PROCEDURE REASON: Convulsions, unspecified convulsion type (HCC) * * * * Physician Interpretation * * * * MRI BRAIN WITHOUT CONTRAST COMPARISON: None. HISTORY: Convulsions. New onset seizure. No history of trauma. TECHNIQUE: Multiplanar, multisequential MR images of the brain were obtained without intravenous contrast administration. RESULT: This examination is motion degraded despite repeat image acquisition. This limits evaluation. Brain volume is age appropriate. The ventricles and basal cisterns are patent and midline. No mass effect or midline shift identified. Negative for extra-axial fluid collection. No restricted diffusion is identified within the brain parenchyma to suggest acute infarction. Allowing for motion artifact, the susceptibility weighted images demonstrate no evidence for intracranial hemorrhage. There is a probable developmental venous anomaly in the right cerebellum, incompletely characterized in the absence of intravenous contrast administration. Normal arterial intracranial flow voids are seen about the [place] of [place]. The mastoid air cells are clear. The paranasal sinuses are clear. Limited visualization of the orbits is unremarkable. The extracranial soft tissues are unremarkable. Cerebellar tonsils are normal in position. Calvarial signal is within normal limits. A partially empty sella is incidentally noted. High-resolution evaluation of the mesial temporal structures was performed. This demonstrates a symmetric appearance to the bilateral hippocampal formations with preservation of the internal hippocampal architecture. No FLAIR signal abnormality is identified. The fornices and mamillary bodies appear symmetric. There is no structural/migrational lesion identified. IMPRESSION IMPRESSION: 1. Negative noncontrast seizure protocol MRI of the brain, allowing for motion artifact on the study. No findings to localize seizures. 2. 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 This is technically incompletely characterized in the absence of contrast administration. Instructional Developer: BAY Transcribe Date/Time: Apr 13 2024 1:06P Dictated by : FLORIN PISANO MD This examination was interpreted and the report reviewed and electronically signed by: FLORIN PISANO MD on Apr 13 2024 1:12PM EST [facility] Radiology Study observation (narrative) [facility] MR Brain WO contrastOrdered By: Cc Provider on 04-13-2024 [facility] MRI BRAIN WO IVCONon 024 MRI BRAIN WO IVCON * * *Final Report* * * DATE OF EXAM: Apr 13 2024 1:02PM QBM 0294 - MRI BRAIN WO IVCON / PROCEDURE REASON: Convulsions, unspecified convulsion type (HCC) * * * * Physician Interpretation * * * * MRI BRAIN WITHOUT CONTRAST COMPARISON: None. HISTORY: Convulsions. New onset seizure. No history of trauma. TECHNIQUE: Multiplanar, multisequential MR images of the brain were obtained without intravenous contrast administration. RESULT: This examination is motion degraded despite repeat image acquisition. This limits evaluation. Brain volume is age appropriate. The ventricles and basal cisterns are patent and midline. No mass effect or midline shift identified. Negative for extra-axial fluid collection. No restricted diffusion is identified within the brain parenchyma to suggest acute infarction. Allowing for motion artifact, the susceptibility weighted images demonstrate no evidence for intracranial hemorrhage. There is a probable developmental venous anomaly in the right cerebellum, incompletely characterized in the absence of intravenous contrast administration. Normal arterial intracranial flow voids are seen about the modoc of [place]. The mastoid air cells are clear. The paranasal sinuses are clear. Limited visualization of the orbits is unremarkable. The extracranial soft tissues are unremarkable. Cerebellar tonsils are normal in position. Calvarial signal is within normal limits. A partially empty sella is incidentally noted. High-resolution evaluation of the mesial temporal structures was performed. This demonstrates a symmetric appearance to the bilateral hippocampal formations with preservation of the internal hippocampal architecture. No FLAIR signal abnormality is identified. The fornices and mamillary bodies appear symmetric. There is no structural/migrational lesion identified. IMPRESSION: 1. Negative noncontrast seizure protocol MRI of the brain, allowing for motion artifact on the study. No findings to localize seizures. 2. 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 This is technically incompletely characterized in the absence of contrast administration. Instructional Developer: PSCIke Transcribe Date/Time: Apr 13 2024 1:06P Dictated by : FLORIN PISANO MD This examination was interpreted and the report reviewed and electronically signed by: FLORIN PISANO MD on Apr 13 2024 1:12PM EST [id number] Normal [facility] CNPNon 04-12-2024 REBECCA Telephone (NE50MN) KAYLEEN KOVACS ([id number]) 1995 F Date Time Provider Department 04/12/24 KAREN SALAZAR NE50MN During your visit today, we recorded the following information about you: Madeline Wallace 04/12/2024 4:46 PM Signed Seizure activity: Name of Caller : Kayleenshasha Kovacs Relationship to patient: Self Contact phone number: [phone] Date of seizure: 04/12/24 she has little seizure all day long Duration: seconds Back to Baseline (Yes/No): yes Emergency treatment needed (Yes/No): no Patient of Ilana West RN 04/12/2024 4:53 PM Signed Last Visit: 04/08 ADDENDUM 04/11/2024 ; Discussed with Dr. Paredes, can trial either ZNS, TPM or LCM for possible myoclonic jerking. Called patient to review options but there was no answer, left VMM to return call to office. Carlo Neal APRN.[facility] April 11, 2024 Patient agreed to trial new medication ROJAS Michele Kelly, APRN.[facility] 04/12/2024 5:00 PM Addendum Would begin ZNS 100 mg at bedtime for 1 week then increase to 200 mg. RX sent Please verify no hx kidney stones/sulfa allergy. Will also send klp wafers for rescue and can take one after she picks up Lorin Guido APRN.Ilana Comer RN 04/15/2024 10:07 AM Signed I spoke with Kayleen, denies sulfa allergy or history of kidney stones. She agreed to begin ZNS 100 mg at bedtime for 1 week then increase to 200 mg Patient is unable to start klp wafers. She is currently taking Suboxone ROJAS Michele Kelly, APRN.[facility] 04/15/2024 10:14 AM Signed Noted. Rx for zns has been sent Lorin Guido APRN.HARNESS INSPECTOR Allergies As of Date: 04/12/2024 Noted Allergy Reaction HYDROXYZINE 12/14/2017 14 - Other: See Comments 2 - Rash Comments: Other reaction(s): AOF Other Reaction(s): AOF CYMBALTA (DULOXETINE) 11/17/2023 14 - Other: See Comments Comments: Suicidal ideation Date Reviewed: 04/11/2024 Reviewed by: Carol Neal APRN.ISA[facility] - Fully Assessed Reason for Visit: Seizures [97] Primary Visit Diagnosis:Generalized convulsive epilepsy (HCC) [G40.309] Order(s):zonisamide (ZONEGRAN) 100 mg capsuleTake 1 capsule by mouth daily at bedtime for 7 days, THEN 2 capsules daily at bedtime.Disp: 60 capsuleRfl: 5 Prescriptions as of 04/15/2024 - zonisamide (ZONEGRAN) 100 mg capsule Take 1 capsule by mouth daily at bedtime for 7 days, THEN 2 capsules daily at bedtime. - ergocalciferol, vitamin D2, (VITAMIN D2 ORAL) Take 50,000 Units by mouth one time a week. - ascorbic acid, vitamin C, (VITAMIN C) 500 mg tablet Take 500 mg by mouth once daily. - lamoTRIgine (LAMICTAL) 150 mg tablet 1 tablet twice a day - cloNIDine HCl (CATAPRES) 0.3 mg tablet Take 0.3 mg by mouth. - ibuprofen (MOTRIN) 800 mg tablet Take 800 mg by mouth three times a day as needed. - aspirin/acetaminophen/c affeine (EXCEDRIN EXTRA STRENGTH ORAL) Take by mouth two times a day. - phentermine HCl (ADIPEX-P ORAL) Take by mouth once daily. - oxybutynin ER (DITROPAN XL) 10 mg 24 hr tablet Take 10 mg by mouth once daily. - pregabalin (LYRICA) 300 mg capsule Take 300 mg by mouth two times a day. - QUEtiapine (SEROQUEL) 100 mg tablet Take 200 mg by mouth daily at bedtime. - busPIRone (BUSPAR) 15 mg tablet Take 30 mg by mouth two times a day. - sertraline (ZOLOFT) 25 mg tablet Take 25 mg by mouth once daily. - ondansetron (ZOFRAN) 4 mg tablet Take 4 mg by mouth every 8 hours as needed for nausea/vomiting. - baclofen 15 mg tablet Take 1 tablet by mouth three times a day. Problem List As Of Date 04/12/2024 Noted Resolved Obstructive sleep apnea [G47.33] 12/04/2023 Bipolar 1 disorder with moderate melinda (HCC) [F*10/22/2018 Chronic hepatitis C virus infection (HCC) [B18.*01/20/2023 Closed fracture of T12 vertebra with spinal cor*06/26/2022 Closed compression fracture of body of L1 verte*06/26/2022 Generalized-onset seizures (HCC) [R56.9] 01/19/2023 Neuropathic pain [M79.2] 01/10/2023 Mild intermittent asthma without complication [*10/23/2018 Nonintractable generalized idiopathic epilepsy *10/05/2023 Osteopenia determined by x-ray [M85.80] 04/08/2024 Complete paraplegia (HCC) [G82.21] 05/05/2023 Anxiety and depression [F41.9, F32.A] 04/08/2024 Prescriptions ordered this encounter Disp Refills Start End ZONISAMIDE 100 MG CAPSULE 60 c* 5 04/12/2024 10/16/2024 Route: ORAL Sig: Take 1 capsule by mouth daily at bedtime for 7 days, THEN 2 capsules daily at bedtime. CLONAZEPAM 0.5 MG DISINTEGRATING TAB* 5 ta* 0 04/12/2024 04/15/2024 Route: ORAL Sig: Take 1 tablet by mouth two times a day as needed (for prolonged seizure or cluster of seizures) for up to 30 days. Encounter Status:Closed by LORIN GUIDO on 04/15/24 Normal [facility] Office/Clini c Noteon 03-28-2024 Family Medicine Office/Clinic Note Family Medicine Office/Clinic Note HPI Staff This visit was conducted via two-way, real-time interactive video communications by Earline Koroma from my office using [employer]. The patient was located at their home, located at [address] [id number], with _ in attendance. A signed authorization for treatment has been obtained via our standard authorization packet or by verbal consent by the patient or their legal credit representative. The patient's identity and location in [place] has been verified by our office staff. If it is determined that the patient should be evaluated in the clinic, the patient will be directed to the appropriate clinic or venue. A limited physical exam will be conducted reviewing those areas of the body visible via telecommunications. Total time spent preparing the chart, conducting the encounter with the patient and family, and time spent documenting, reviewing, and ordering tests was _ minutes. All records and visits comply with HIPAA standards. Patient or Guardian reported vitals: Temp: _ Wt: 200.2 Ht: 175 inches BP: _ HR: _ Sp02: _ Started on Phentermine 10/06/23 Sleeping well:Yes, 6-8 hours Chest pain:No Tremors:No Headaches:No Heart fluttering:No Blurred Vision:No Starting Weight:224 lbs Weight last visit:200.2 lbs Weight this visit: History of Present Illness pt presents via video visit for adipex refill Physical Exam unable to perform physical exam Assessment/Plan 1. Encounter for weight management (Z76.89: Persons encountering health services in other specified circumstances) we attempted to connect via video visit but her internet would not connect. pt is staying around 200pounds. denies side effects. will send refill. RTC 3 months Ordered: Telephone Est 11 to 20 minutes [id number] Orders: ondansetron, See Instructions, TAKE 1 TABLET BY MOUTH EVERY 6 HOURS NEEDED FOR NAUSEA and vomiting, # 30 EA, Refills(s) 1, Pharmacy: [facility], 175, cm, 02/27/24 10:26:00 EDT, Height/Length Dosing, 91.4, kg, 02/27/24 10:26:00 EDT, Weight Dosing ondansetron, 4 mg = 1 tab(s), Oral, q6hr, PRN Nausea/Vomiting, # 30 tab(s), Refills(s) 1, Pharmacy: [facility], 175, cm, 01/02/24 14:51:00 EDT, Height/Length [...] See Instructions ondansetron 4 mg Dis Tab, See Instructions oxybutynin 10 mg ER Tab, 10 mg= [...] 50,000 intl units (1.25 mg) oral capsule, 65906 International_Unit= 1 cap(s), Oral, qWeek, 3 refills [...] change: No. Household tobacco concerns: No. Yes, 03/28/2024 Family History Ovarian cancer: Grandparent. Immunizations Vaccine Date Status Comments influenza virus vaccine, inactivated - Not Given Patient Refuses influenza virus vaccine, inactivated 07/17/2018 Recorded influenza virus vaccine, inactivated 06/11/2018 Recorded Normal [facility] Comment on above: Result Comment: Elec tronically Signed By: Earline Koroma\.br\Date and Time Signed: 03/28/24 10:09 EDT Ambulatory Visit Summaryon 0 02-27-2024 Ambulatory Visit Summary Ambulatory Visit Summary KAYLEEN KOVACS Esvin :1995 Visit Date:02/27/2024 Ambulatory Visit Instructions Your [...] 10:00 AM EDT With: Earline Koroma Where: [place] [id number]- Medications What How Much When Why Instructions New phentermine (phentermine 37.5 mg Tab) 1 Tablets By Mouth Every day Pickup at [facility] Unchanged ascorbic acid (Vitamin C 500 [...] Back pain 30 day supply Pharmacy Information [facility]: [address] [place], [place] [phone] Allergies Cymbalta (Suicide) hydrOXYzine (AOF, Eruption) propofol [...] survey v (more content not included)... Normal [facility] Ambulatory Visit Summary Ambulatory Visit Summary KAYLEEN [...] 10:00 AM EDT With: Earline Koroma Where: [place] [address]- Medications What How Much When Why Instructions [...] your feedback (more content not included)... Normal [place] [facility] Family Medicine Office/Clini c Noteon 02-27-2024 Family Medicine Office/Clinic Note Family Medicine Office/Clinic Note HPI Staff Kayleen is a 28 year old female presenting with Weight management Phentermine 10/06/23 Sleeping well:Yes, 6-8 hours Chest pain:No Tremors:No Headaches:No Heart fluttering:No Blurred Vision:No Starting Weight: 224 lbs. Weight last visit: 200.2 lbs. Weight this visit: 200.2 lbs. Going to [facility] to get weighed This week or next [...] scale, if not they will go to [facility] next week for weight. RTC 4 weeks 2. Vapes nicotine containing substance (Z72.0: Tobacco use) consider not vaping 3. Former smoker (Z87.891: Personal history of nicotine dependence) continue not smoking 4. BMI 29.0-29.9,adult (Z68.29: Body mass index [BMI] 29.0-29.9, adult) BMI education given Orders: phentermine, 37.5 mg = 1 tab(s), Oral, Daily, # 30 tab(s), Refills(s) 0, Pharmacy: [facility], 175, cm, 01/30/24 11:24:00 EDT, Height/Length Dosing, 91, kg, 01/30/24 11:24:00 EDT, Weight Dosing phentermine, 37.5 mg = 1 tab(s), Oral, Daily, # 30 tab(s), Refills(s) 0, Pharmacy: [facility], 175, cm, 02/27/24 10:26:00 EDT, Height/Length [...] 50,000 intl units (1.25 mg) oral capsule, 69292 International_Unit= 1 cap(s), Oral, qWeek, 3 refills [...] virus vaccine, inactivated 06/11/2018 Recorded Normal [facility] Comment on above: Result Comment: Elec tronically Signed By: Earline Koroma\.br\Date and Time Signed: 02/27/24 11:04 EDT HCG ( test) Ql (U)o n 02-21-2024 HCG.beta subunit [Moles/Vol] Negative [facility] Interpretation and review of laboratory results Normal [facility] POCT ALERE DRUG SCREENon Amphetamine (AMP), poct Positive [facility] Barbiturates (BAR), poct Negative [facility] Buprenorphine Glucuronide (BUPG),poct Negative [facility] COCAINE (IMER), POCT Negative [facility] Ecstasy (MDMA), poct Negative [facility] Interpretation and review of laboratory results Normal [facility] Marijuana (THC), poct Positive [facility] Methadone (MTD), poct Negative [facility] Methamphetamine (mAMP/MET), poct Negative [facility] Nortripyline (TCA), poct Negative [facility] Opiate (OPI), poct Negative [facility] OXAZEPAM (BZO),POCT Negative [facility] Oxycodone, POC Negative [facility] Phencyclidine (PCP), poct Negative [facility] Propoxyphene (PPX), poct Negative [facility] XR Knee - left 1 or 2 Viewso n 02-20-2024 Imaging Result: Left knee lateral and AP taken in the office today nonweightbearing. Images do demonstrate proximal 1/3 transverse fracture of patella nondisplaced with some early callus. Also note osteomalacia due to paraplegia [facility] Radiology Study observation (narrative) [facility] Family Medicine Office/Clini c Noteon 02-12-2024 Family [...] day(s), # 6 tab(s), Refills(s) 0, Pharmacy: [facility], 175, cm, 02/12/24 9:04:00 EDT, Height/Length Dosing, 91, kg, 02/12/24 9:08:00 EDT, Weight Dosing 4. BMI 29.0-29.9,adult (Z68.29: Body mass index [BMI] 29.0-29.9, adult) BMI education Ordered: azithromycin, = 1 packet(s), Oral, As Directed, as directed on package labeling, X 5 day(s), # 6 tab(s), Refills(s) 0, Pharmacy: [facility], 175, cm, 02/12/24 9:04:00 EDT, Height/Length [...] 50,000 intl units (1.25 mg) oral capsule, 45089 International_Unit= 1 cap(s), Oral, qWeek, 3 refills [...] Family History (more content not included)... Normal [facility] Comment on above: Result Comment: Elec tronically Signed By: Earline Koroma.br\Date and Time Signed: 02/12/24 11:39 EDT CNOVon 02-08-2024 CNOV Office Visit ([facility] ) KAYLEEN KOVACS ([id number]) 1995 F Date Time Provider Department 02/08/24 10:30 AM AMBER BLEDSOE [facility] During your visit today, we recorded the following information about you: Pulse Blood pressure Last Period 119/minute 121/69 01/18/24 Amber Bledsoe MD 02/08/2024 11:23 AM Signed [facility] Pain Management Department Consultation Date: date 02/08/2024 - 10:33 AM Referring physician: Dr. Naty Benedcit, physical medicine [address] [facility] [address] Kayleen Kovacs is seen in consultation requested [...] surgical change: Redemonstrated is fixation hardware connecting [id number], with laminectomy around L1. There is considerable metallic artifact from this region, and detail assessment is not possible. Bone marrow signal/fracture: No evidence of pathologic marrow infiltration. No evidence of prior fracture. Conus: The conus is within normal limits of signal intensity and morphology. Paraspinal soft tissues: Paraspinal soft tissues are within normal limits. (more content not included)... Normal [facility] KIDNEY/BLADDERon 02-08-20 US KIDNEY/BLADDER * * *Final Report* * * DATE OF EXAM: Feb 08 2024 12:06PM [facility] [[email or web address]] 1055 - US KIDNEY/BLADDER / PROCEDURE REASON: [...] appearance of the kidneys and urinary bladder. Instructional Developer: BAY Transcribe Date/Time: Feb 10 2024 4:32A Dictated by : SARAVANAN ORTIZ MD This examination was interpreted and the report reviewed and electronically signed by: SARAVANAN ORTIZ MD on Feb 11 2024 7:10AM EST [id number] Normal [facility] 02-06-2024 [facility] Telephone ([facility]) KAYLEEN KOVACS ([id number]) 1995 F Date Time Provider Department 02/06/24 AMBER BLEDSOE [facility] During your visit today, we recorded the following information about you: Ilan Marc RN 02/06/2024 2:16 PM Signed Attempted to call patient, no answer, left message below on patient's voice mail, also sent this message to patient's my chart. This is [facility] office calling with an appointment reminder. You are scheduled with Dr. Bledsoe on January at 10:30 am, with an arrival time of 10:15 am. At [facility] building room 525. Please be advised that Dr. Bledsoe is primarily an interventional pain management provider and does not take over Opioid/Narcotic pain medication regimen. If you have been evaluated by [facility] Pain Management Provider currently or within the last 3 years , you will need to contact their offices to address switching care if recommended. Please bring any outside medical records to your appointment if they are not updated into the [facility]. Please be advised that the appointment with pain management will be for consultation only, any further recommendations will be provided to you at the end of the visit. If you have any question regarding your appointment , please contact the office appointment desk directly to discuss. ( [facility]: [phone] ) Allergies As of Date: 02/06/2024 Noted Allergy Reaction CYMBALTA (DULOXETINE) 11/17/2023 14 - Other: See Comments Comments: Suicidal ideation Date Reviewed: 01/09/2024 Reviewed by: Janice Sigala RN - Fully Assessed Reason for Visit: Appointment [186] Prescriptions as of 02/06/2024 - cloNIDine HCl (CATAPRES) 0.3 mg tablet Take 0.3 mg by mouth. - ibuprofen (MOTRIN) 800 mg tablet Take 800 mg by mouth three times a day as needed. - aspirin/acetaminophen/c affeine (EXCEDRIN EXTRA STRENGTH ORAL) Take by mouth [...] Status:Closed by ILAN MARC on 02/06/[address] [facility] Ambulatory Visit Summaryon 0 01-30-2024 Ambulatory [...] 10:00 AM EDT With: Earline Koroma Where: [facility] [place] [id number]- Medications What How Much When Why Instructions [...] choosing us for your care. Normal [facility] Medicine Office/Clini c Noteon 01-30-2024 Family Medicine Office/Clinic Note Family Medicine Office/Clinic Note HPI Staff Kayleen is a 28 year old female presenting with tooth pain- better she has dentist appt. February 14... 11/09 is her pain for tooth today A couple weeks ago [facility] said to go over labs with [...] pain, # 14 tab(s), Refills(s) 0, Pharmacy: [facility], 175, cm, 01/30/24 11:24:00 EDT, Height/Length Dosing, 91, kg, 01/30/24 11:24:00 EDT, Weight Dosing phentermine, 37.5 mg = 1 tab(s), Oral, Daily, # 30 tab(s), Refills(s) 0, Pharmacy: [facility], 175, cm, 01/30/24 11:24:00 EDT, Height/Length Dosing, 91, kg, 01/30/24 11:24:00 EDT, Weight Dosing phentermine, 37.5 mg = 1 tab(s), Oral, Daily, # 30 tab(s), Refills(s) 0, Pharmacy: [facility], 175, cm, 01/02/24 14:51:00 EDT, Height/Length [...] 50,000 intl units (1.25 mg) oral capsule, [id number] International_Unit= 1 cap(s), Oral, qWeek, 3 refills [...] influenza virus vaccine, inactivated 06/11/2018 Recorded Normal [facility] Comment on above: Result Comment: Elec tronically Signed By: Earline Koroma\.jean\Date and Time Signed: 01/30/24 12:20 EDT Ambulatory Visit Summaryon 0 01-02-2024 Ambulatory Visit Summary Ambulatory Visit Summary KAYLEEN KOVACS :1995 Visit Date:01/02/2024 Ambulatory Visit Instructions Your [...] 10:20 AM EDT With: Earline Koroma Where: [facility] [place] Normal [facility] Family Medicine Office/Clini c Noteon 01-02-2024 Family [...] other specified circumstances) pt will go to [facility] for weight next week. adipex refill sent. [...] TID, # 90 tab(s), Refills(s) 1, Pharmacy: [facility], 175.3, cm, 10/06/23 10:31:00 EDT, Height/Length Dosing, 113.3, kg, 03/01/23 9:34:00 EDT, Weight Dosing phentermine, 37.5 mg = 1 tab(s), Oral, Daily, # 30 tab(s), Refills(s) 0, Pharmacy: [facility], 175, cm, 12/01/23 10:10:00 EDT, Height/Length Dosing, 99, kg, 12/01/23 10:10:00 EDT, Weight Dosing phentermine, 37.5 mg = 1 tab(s), Oral, Daily, # 30 tab(s), Refills(s) 0, Pharmacy: [facility], 175, cm, 01/02/24 14:51:00 EDT, Height/Length [...] vaccine, inactivated 07/17 (more content not included)... [facility] Comment on above: Result Comment: Elec tronically Signed By: Earline Koroma\.br\Date and Time Signed: 01/02/24 15:06 EDT Auth for Release of Medical Recordson 12-27-2023 Auth for Release of Medical Records [id number] IFF [facility] ALLIED HEALTHon 2023 ALLIED HEALTH HNO ID: [id number] Author: LEBRON ESTES RT(R) Service: Radiology Author [...] PATIENT PRESENTS WITH AN IMPLANTABLE OR ATTACHED TABLET TECHNICIAN: No RADIOLOGY DEPARTMENT: MR; Exam(s) Completed: Spine: Thoracic spine and Lumbar spine PERIPHERAL IV DATA: Not applicable SIGNED BY: Lebron Estes, RT(R) 2023 4:16 PM [facility] MRI LUMBAR SPINE WO IVCONon 2023 MRI LUMBAR SPINE WO IVCON * * *Final Report* * * DATE OF EXAM: 2023 5:09PM [facility] 0303 - MRI LUMBAR SPINE WO [...] surgical change: Redemonstrated is fixation hardware connecting [id number], with laminectomy around L1. There is considerable [...] and assume there are 5 lumbar-type vertebrae. Instructional Developer: [facility] MED[facility] CENTERIke Transcribe Date/Time: 2023 7:06P Dictated by : ISMA TOVAR MD This examination was interpreted and the report reviewed and electronically signed by: ISMA TOVAR MD on 2023 7:17PM EST [id number] Normal [facility] MRI THORACIC SPINE WO IVCONo n 2023 MRI THORACIC SPINE WO IVCON * * *Final Report* * * DATE OF EXAM: 2023 5:09PM [facility] 0325 - MRI THORACIC SPINE WO [...] surgical change: Redemonstrated is fixation hardware connecting [id number], with laminectomy around L1. There is considerable [...] and assume there are 5 lumbar-type vertebrae. Instructional Developer: BAY Transcribe Date/Time: 2023 7:06P Dictated by : ISMA TOVAR MD This examination was interpreted and the report reviewed and electronically signed by: ISMA TOVAR MD on 2023 7:17PM EST [id number] [facility] No Panel Informationon 03-22 -2024 [facility] XR LUMBAR 2V AP/LATon 2023 XR [...] of the thoracolumbar spine without apparent complication. Instructional Developer: [facility] CENTER[facility]ke Transcribe Date/Time: Sep 23 2023 11:59A Dictated by : HEATHER GOYAL MD This examination was interpreted and the report reviewed and electronically signed by: HEATHER GOYAL MD on Sep 23 2023 12:09PM EST [id number] [facility] XR THORACIC 2V AP/LATon 09-01 XR [...] of the thoracolumbar spine without apparent complication. Instructional Developer: BAY Transcribe Date/Time: Sep 23 2023 11:59A Dictated by : HEATHER GOYAL MD This examination was interpreted and the report reviewed and electronically signed by: HEATHER GOYAL MD on Sep 23 2023 12:09PM EST [id number] Normal [facility] XR THORACIC SPINE (2 VIEWS)o n 07-03-2023 [...] the lumbar spine appears intact Interpreted by: Mierya Toledo MD Signed by: Mireya Toledo MD 07/03/23 Final result Normal [facility] XR CHEST PORTABLEon 05-22-20 XR CHEST [...] Oren Ko MD 05/22/23 Final result Normal [facility] XR CHEST PORTABLEon 05-21-20 XR CHEST [...] Oren Ko MD 05/21/23 Final result Normal [facility] Troponinon 05-20-2023 Troponin, High Sens 18 ng/L High 0-14 [facility] Comment on above: Result Comment: High Sensitivity Troponin values cannot be compared with other Troponin methodologies. Performed By: #### T ELLIOT, [facility] #### [facility] [employer] [facility] [place] [address] Clinical Microbiologist: Keon San MD XR ABDOMEN (KUB) (SINGLE [...] fusion hardware projecting over the thoracolumbar spine. Lafo-qa-kdcutnpk stool burden. Subcutaneous emphysema along the left [...] with ileus or partial small bowel obstruction. Oxna-dw-dpktbnoe stool burden. 2. Subcutaneous emphysema along the left lateral chest wall. 3. Plates and screws overlying the ribs, similar to the prior study. Interpreted by: Melo Persaud MD Signed by: eMlo Persaud MD 05/20/23 Final result Normal [facility] XR CHEST PORTABLEon 05-20-20 XR CHEST [...] emphysema along the left lateral chest wall. surveillance monitor leads overlie the chest. Trachea midline. [...] Melo Persaud MD 05/20/23 Final result Normal [facility] XR CHEST PORTABLEon 05-19-20 XR CHEST [...] Andrew Sol MD 05/19/23 Final result Normal [facility] XR CHEST PORTABLE EXAMINATION: ONE XRAY [...] Dl Dangelo MD 05/19/23 Final result Normal [facility] Basic Metabolic Profon 05-18 Anion gap [Moles/Vol] 17 mmol/L Normal 9-[address] [facility] Comment on above: Performed By: #### B KIM, CDP #### [facility] [employer] [address] [place] [address] Clinical Microbiologist: Keon San MD Calcium [Mass/Vol] 9.2 mg/dL Normal 8.6-10.4 [facility] Comment on above: Performed By: #### B KIM, CDP #### [facility] [address] [place] [address] [phone] Clinical Microbiologist: Koen San MD Chloride [Moles/Vol] 101 mmol/L Normal 98-107 [facility] Comment on above: Performed By: #### B KIM, CDP #### [facility] [employer] [address] [place] [address] [phone] Clinical Microbiologist: Keon San MD CO2 [Moles/Vol] 18 mmol/L Low 20-31 [facility] Comment on above: Performed By: #### B KIM, CDP #### [facility] [employer] [address] [place] [address] Clinical Microbiologist: Keon San MD Creatinine [Mass/Vol] 0.3 mg/dL Low 0.5-0.[address] [facility] Comment on above: Performed By: #### B KIM, CDP #### [facility] [employer] [address] [place] [address] Clinical Microbiologist: Keon San MD GFR/1.73 sq M.predicted among non-blacks MDRD (S/P/Bld) [Vol rate/Area] mL/min/{1.73_m2} Normal >60 [facility] Comment on above: Result Comment: These [...] #### B KIM, CDP #### [facility] [employer] [address] [place] [address] Clinical Microbiologist: Keon San MD Glucose [Mass/Vol] 79 mg/dL Normal 70-99 [facility] Comment on above: Performed By: #### B KIM, CDP #### [facility] [employer] [address] [place] [address] Clinical Microbiologist: Keon San MD Potassium [Moles/Vol] 3.9 mmol/L Normal 3.7-5.[address] [facility] Comment on above: Performed By: #### B KIM, CDP #### [facility] [employer] [address] [place] [address] Clinical Microbiologist: Keon San MD Sodium [Moles/Vol] 136 mmol/L Normal 135-144 [facility] Comment on above: Performed By: #### B KIM, CDP #### [address] [address] Clinical Microbiologist: Keon San MD Urea nitrogen [Mass/Vol] 3 mg/dL Low 6-20 [facility] Comment on above: Performed By: #### B MP, CDP #### [address] [address] Clinical Microbiologist: Keon San MD CBC with Diffon 05-18-2023 Abs. Basophil 0.03 k/uL Normal 0.00-0.20 [facility] Comment on above: Performed By: #### U RC #### [address] [address] Clinical Microbiologist: Keon San MD Abs. Eosinophil <0.03 Normal 0.00-0.44 [facility] Comment on above: Performed By: #### U RC #### [address] [address] Clinical Microbiologist: Keon San MD Abs.Imm.Granulocyte 0.06 k/uL Normal 0.00-0.30 [facility] Comment on above: Performed By: #### U RC #### [address] [address] Clinical Microbiologist: Keon San MD Abs.Neutrophil (Seg) 10.33 k/uL High 1.50-8.10 [facility] Comment on above: Performed By: #### U RC #### [address] [address] Clinical Microbiologist: Keon San MD Basophils/100 WBC (Bld) 0 % Normal 0-2 [facility] Comment on above: Performed By: #### U RC #### [address] [address] Clinical Microbiologist: Keon San MD Eosinophils/100 WBC (Bld) 0 % Low 1-4 [facility] Comment on above: Performed By: #### U RC #### [address] [address] Clinical Microbiologist: Keon San MD Erythrocyte distribution width (RBC) [Ratio] 14.7 % High 11.8-14.4 [facility] Comment on above: Performed By: #### U RC #### [address] [address] Clinical Microbiologist: Keon San MD Hematocrit (Bld) [Volume fraction] 41.3 % Normal 36.3-47.1 [facility] Comment on above: Performed By: #### U RC #### [address] [address] Clinical Microbiologist: Keon San MD Hemoglobin (Bld) [Mass/Vol] 12.5 g/dL Normal 11.9-15.1 [facility] Comment on above: Performed By: #### U RC #### [address] [address] Clinical Microbiologist: Keon San MD Immature granulocytes/100 WBC (Bld) 1 % High 0 [facility] Comment on above: Performed By: #### U RC #### [address] [address] Clinical Microbiologist: Keon San MD Lymphocytes (Bld) [#/Vol] 1.83 10*3/uL Normal 1.10-3.70 [facility] Comment on above: Performed By: #### U RC #### [address] [address] Clinical Microbiologist: Keon San MD Lymphocytes/100 WBC (Bld) 14 % Low 24-43 [facility] Comment on above: Performed By: #### U RC #### [address] [address] Clinical Microbiologist: Keon San MD MCH (RBC) [Entitic mass] 26.4 pg Normal 25.2-33.5 [facility] Comment on above: Performed By: #### U RC #### [address] [address] Clinical Microbiologist: Keon San MD MCHC (RBC) [Mass/Vol] 30.3 g/dL Normal 28.4-34.[address] [facility] Comment on above: Performed By: #### U RC #### [address] [address] Clinical Microbiologist: Keon San MD MCV (RBC) [Entitic vol] 87.1 fL Normal 82.6-102.9 [facility] Comment on above: Performed By: #### U RC #### [address] [address] Clinical Microbiologist: Keon San MD Monocytes (Bld) [#/Vol] 0.86 10*3/uL Normal 0.10-1.20 [facility] Comment on above: Performed By: #### U RC #### [address] [address] Clinical Microbiologist: Keon San MD Monocytes/100 WBC (Bld) 7 % Normal 3-12 [facility] Comment on above: Performed By: #### U RC #### [address] [address] Clinical Microbiologist: Keon San MD Neutrophil (Seg) 79 % High 36-65 [facility] Comment on above: Performed By: #### U RC #### [address] [address] Clinical Microbiologist: Keon San MD NRBC Automated 0.0 per 100 WBC Normal 0.0 [facility] Comment on above: Performed By: #### U RC #### [place] [address] [place] [address] Clinical Microbiologist: Keon San MD Platelet mean volume (Bld) [Entitic vol] 9.7 fL Normal 8.1-13.5 [facility] Comment on above: Performed By: #### U RC #### [address] [address] Clinical Microbiologist: Keon San MD Platelets (Bld) [#/Vol] 494 10*3/uL High 138-453 [facility] Comment on above: Performed By: #### U RC #### [address] [address] Clinical Microbiologist: Keon San MD RBC (Bld) [#/Vol] 4.74 10*6/uL Normal 3.95-5.11 [facility] Comment on above: Performed By: #### U RC #### [address] [address] Clinical Microbiologist: Keon San MD RBC morphology finding Nom (Bld) ANISOCYTOSIS PRESENT Normal [facility] Comment on above: Performed By: #### U RC #### [address] [address] Clinical Microbiologist: Keon San MD WBC (Bld) [#/Vol] 13.1 10*3/uL High 3.5-11.3 [facility] Comment on above: Performed By: #### U RC #### [address] [address] Clinical Microbiologist: Keon San MD Cult,Urineon 05-18-2023 Cult,Urine Specimen Description .INDWELLING CATH URINE Culture NO GROWTH Report Status FINAL 05/18/2023 Normal [facility] Comment on above: Performed By: #### U RC #### [address] [place] [address] Clinical Microbiologist: Keon San MD XR CHEST PORTABLEon 05-18-20 [...] Aleyda Alcocer MD 05/18/23 Final result Normal [facility] XR CHEST PORTABLE EXAMINATION: ONE XRAY [...] Reginaldo Love MD 05/18/23 Final result Normal [facility] XR CHEST PORTABLE EXAMINATION: ONE XRAY [...] Dl Dangelo MD 05/18/23 Final result Normal [facility] Basic Metabolic Profon 05-17 Anion gap [Moles/Vol] 12 mmol/L Normal 9-[address] [facility] Comment on above: Performed By: #### B KIM, CDP #### [address] [address] Clinical Microbiologist: Keon San MD Calcium [Mass/Vol] 9.1 mg/dL Normal 8.6-10.4 [facility] Comment on above: Performed By: #### B KIM, CDP #### [facility] [employer] [address] [place] [address] Clinical Microbiologist: Keon San MD Chloride [Moles/Vol] 102 mmol/L Normal 98-107 [facility] Comment on above: Performed By: #### B MP, CDP #### [facility] [employer] [address] [place] [address] Clinical Microbiologist: Keon San MD CO2 [Moles/Vol] 25 mmol/L Normal 20-31 [facility] Comment on above: Performed By: #### B MP, CDP #### [facility] [address] [place] [address] Clinical Microbiologist: Keon San MD Creatinine [Mass/Vol] 0.4 mg/dL Low 0.5-0.[address] [facility] Comment on above: Performed By: #### B MP, CDP #### [facility] [employer] [address] [place] [address] Clinical Microbiologist: Keon San MD GFR/1.73 sq M.predicted among non-blacks MDRD (S/P/Bld) [Vol rate/Area] mL/min/{1.73_m2} Normal >60 [facility] Comment on above: Result Comment: These [...] Performed By: #### B KIM, CDP #### [address] [address] Clinical Microbiologist: Keon San MD Glucose [Mass/Vol] 91 mg/dL Normal 70-99 [facility] Comment on above: Performed By: #### B KIM, CDP #### [address] [address] Clinical Microbiologist: Keon San MD Potassium [Moles/Vol] 3.7 mmol/L Normal 3.7-5.[address] [facility] Comment on above: Performed By: #### B KIM, CDP #### [address] [address] Clinical Microbiologist: Keon San MD Sodium [Moles/Vol] 139 mmol/L Normal 135-144 [facility] Comment on above: Performed By: #### B KIM, CDP #### [address] [address] Clinical Microbiologist: Keon San MD Urea nitrogen [Mass/Vol] 6 mg/dL Normal 6-20 [facility] Comment on above: Performed By: #### B KIM, CDP #### [address] [address] Clinical Microbiologist: Keon San MD CBC with Diffon 05-17-2023 Abs. Basophil 0.06 k/uL Normal 0.00-0.20 [facility] Comment on above: Performed By: #### B MP, CDP #### [address] [address] Clinical Microbiologist: Keon San MD Abs.Imm.Granulocyte 0.04 k/uL Normal 0.00-0.30 [facility] Comment on above: Performed By: #### B MP, CDP #### [place] [address] Clinical Microbiologist: Keon San MD Abs.Neutrophil (Seg) 3.87 k/uL Normal 1.50-8.10 [facility] Comment on above: Performed By: #### B MP, CDP #### [place] [address] Clinical Microbiologist: Keon San MD Basophils/100 WBC (Bld) 1 % Normal 0-2 [facility] Comment on above: Performed By: #### B MP, CDP #### [place] [address] Clinical Microbiologist: Keon San MD Eosinophils (Bld) [#/Vol] 0.27 10*3/uL Normal 0.00-0.44 [facility] Comment on above: Performed By: #### B MP, CDP #### [place] [address] Clinical Microbiologist: Keon San MD Eosinophils/100 WBC (Bld) 4 % Normal 1-4 [facility] Comment on above: Performed By: #### B MP, CDP #### [place] [address] Clinical Microbiologist: Keon San MD Erythrocyte distribution width (RBC) [Ratio] 14.7 % High 11.8-14.4 [facility] Comment on above: Performed By: #### B MP, CDP #### [address] [address] Clinical Microbiologist: Keon San MD Hematocrit (Bld) [Volume fraction] 39.2 % Normal 36.3-47.1 [facility] Comment on above: Performed By: #### B MP, CDP #### [address] [address] Clinical Microbiologist: Keon San MD Hemoglobin (Bld) [Mass/Vol] 12.2 g/dL Normal 11.9-15.1 [facility] Comment on above: Performed By: #### B MP, CDP #### [address] [address] Clinical Microbiologist: Keon San MD Immature granulocytes/100 WBC (Bld) 1 % High 0 [facility] Comment on above: Performed By: #### B MP, CDP #### [address] [address] Clinical Microbiologist: Keon San MD Lymphocytes (Bld) [#/Vol] 2.23 10*3/uL Normal 1.10-3.70 [facility] Comment on above: Performed By: #### B MP, CDP #### [address] [address] Clinical Microbiologist: Keon San MD Lymphocytes/100 WBC (Bld) 32 % Normal 24-43 [facility] Comment on above: Performed By: #### B MP, CDP #### [address] [address] Clinical Microbiologist: Keon San MD MCH (RBC) [Entitic mass] 26.5 pg Normal 25.2-33.5 [facility] Comment on above: Performed By: #### B MP, CDP #### [address] [address] Clinical Microbiologist: Keon San MD MCHC (RBC) [Mass/Vol] 31.1 g/dL Normal 28.4-34.[address] [facility] Comment on above: Performed By: #### B KIM, CDP #### [address] [address] Clinical Microbiologist: Koen San MD MCV (RBC) [Entitic vol] 85.2 fL Normal 82.6-102.9 [facility] Comment on above: Performed By: #### B MP, CDP #### [address] [address] Clinical Microbiologist: Keon San MD Monocytes (Bld) [#/Vol] 0.55 10*3/uL Normal 0.10-1.20 [facility] Comment on above: Performed By: #### B KIM, CDP #### [place] [address] Clinical Microbiologist: Keon San MD Monocytes/100 WBC (Bld) 8 % Normal 3-12 [facility] Comment on above: Performed By: #### B KIM, CDP #### [address] [address] Clinical Microbiologist: Keon San MD Neutrophil (Seg) 54 % Normal 36-65 [facility] Comment on above: Performed By: #### B KIM, CDP #### [address] [address] Clinical Microbiologist: Keon San MD NRBC Automated 0.0 per 100 WBC Normal 0.0 [facility] Comment on above: Performed By: #### B MP, CDP #### [address] [address] Clinical Microbiologist: Keon San MD Platelet mean volume (Bld) [Entitic vol] 9.5 fL Normal 8.1-13.5 [facility] Comment on above: Performed By: #### B MP, CDP #### [address] [address] Clinical Microbiologist: Keon San MD Platelets (Bld) [#/Vol] 462 10*3/uL High 138-453 [facility] Comment on above: Performed By: #### B MP, CDP #### [address] [address] Clinical Microbiologist: Keon San MD RBC (Bld) [#/Vol] 4.60 10*6/uL Normal 3.95-5.11 [facility] Comment on above: Performed By: #### B MP, CDP #### [facility] [employer] [address] [place] [address] Clinical Microbiologist: Keon San MD RBC morphology finding Nom (Bld) ANISOCYTOSIS PRESENT Normal [facility] Comment on above: Performed By: #### B MP, CDP #### [facility] [employer] [address] [place] [address] Clinical Microbiologist: Keon San MD WBC (Bld) [#/Vol] 7.0 10*3/uL Normal 3.5-11.3 [facility] Comment on above: Performed By: #### B MP, CDP #### [address] [address] Clinical Microbiologist: Keon San MD Surgical Pathology Reporton 05-17-2023 Surgical Pathology Report (NOTE) Path Number: [id number] -- Diagnosis -- A. RIB, EXCISION: BONE WITH HARDWARE. GROSS ONLY Linsey Casillas M.D. 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 FOREIGN BODY REMOVAL kb Source of Specimen A: RIB FRAGMENT - GROSS ONLY Gross Description KAYLEEN FERMÍN, RIB FRAGMENT GROSS ONLY Received fresh is [...] Gross exam only. tm SM/kb2:05/17/2023 Processing Lab: [address] [id number] Interpretation Performed at [address] [id number] SURGICAL PATHOLOGY CONSULTATION Patient Name: KAYLEEN KOVACS [facility] Rec: [id number] [facility] ANATOMIC PATHOLOGY [address] [place] [address]. [place], [place] [address] Normal [facility] XR CHEST PORTABLEon 05-17-20 XR CHEST [...] Andrew Sol MD 05/17/23 Final result Normal [facility] Basic Metabolic Profon 05-16 Anion gap [Moles/Vol] 10 mmol/L Normal 9-[address] [facility] Comment on above: Performed By: #### B CHANDLRE ALVAREZ #### [facility] [employer] [address] [place] [id number] Clinical Microbiologist: Keon San MD Calcium [Mass/Vol] 9.2 mg/dL Normal 8.6-10.4 [facility] Comment on above: Performed By: #### B KIM, CDP #### [facility] [address] [place] [address] Clinical Microbiologist: Keon San MD Chloride [Moles/Vol] 103 mmol/L Normal 98-107 [facility] Comment on above: Performed By: #### B MP, CDP #### [facility] [address] [place] [address] Clinical Microbiologist: Keon San MD CO2 [Moles/Vol] 25 mmol/L Normal 20-31 [facility] Comment on above: Performed By: #### B MP, CDP #### [facility] [employer] [place] [address] Clinical Microbiologist: Keon San MD Creatinine [Mass/Vol] 0.6 mg/dL Normal 0.5-0.[address] [facility] Comment on above: Performed By: #### B KIM, CDP #### [address] [address] Clinical Microbiologist: Keon San MD GFR/1.73 sq M.predicted among non-blacks MDRD (S/P/Bld) [Vol rate/Area] mL/min/{1.73_m2} Normal >60 [facility] Comment on above: Result Comment: These [...] #### B MP, CDP #### [facility] [employer] [address] [place] [address] Clinical Microbiologist: Keon San MD Glucose [Mass/Vol] 81 mg/dL Normal 70-99 [facility] Comment on above: Performed By: #### B MP, CDP #### [facility] [employer] [address] [place] [address] Clinical Microbiologist: Keon San MD Potassium [Moles/Vol] 4.1 mmol/L Normal 3.7-5.[address] [facility] Comment on above: Performed By: #### B MP, CDP #### [facility] [employer] [address] [place] [address] Clinical Microbiologist: Keon San MD Sodium [Moles/Vol] 138 mmol/L Normal 135-144 [facility] Comment on above: Performed By: #### B KIM, CDP #### [address] [address] Clinical Microbiologist: Keon San MD Urea nitrogen [Mass/Vol] 5 mg/dL Low 6-20 [facility] Comment on above: Performed By: #### B KIM, CDP #### [address] [address] Clinical Microbiologist: Keon San MD CBC with Diffon 05-16-2023 Abs. Basophil 0.07 k/uL Normal 0.00-0.20 [facility] Comment on above: Performed By: #### B KMI, CDP #### [address] [address] Clinical Microbiologist: Keon San MD Abs.Imm.Granulocyte 0.04 k/uL Normal 0.00-0.30 [facility] Comment on above: Performed By: #### B KIM, CDP #### [facility] [employer] [address] [place] [address] Clinical Microbiologist: Keon San MD Abs.Neutrophil (Seg) 3.38 k/uL Normal 1.50-8.10 [facility] Comment on above: Performed By: #### B MP, CDP #### [facility] [employer] [address] [place] [address] Clinical Microbiologist: Keon San MD Basophils/100 WBC (Bld) 1 % Normal 0-2 [facility] Comment on above: Performed By: #### B KIM, CDP #### [address] [address] Clinical Microbiologist: Keon San MD Eosinophils (Bld) [#/Vol] 0.30 10*3/uL Normal 0.00-0.44 [facility] Comment on above: Performed By: #### B KIM, CDP #### [address] [address] Clinical Microbiologist: Keon San MD Eosinophils/100 WBC (Bld) 5 % High 1-4 [facility] Comment on above: Performed By: #### B KIM, CDP #### [address] [address] Clinical Microbiologist: Keon San MD Erythrocyte distribution width (RBC) [Ratio] 15.0 % High 11.8-14.4 [facility] Comment on above: Performed By: #### B KIM, CDP #### [address] [address] Clinical Microbiologist: Keon San MD Hematocrit (Bld) [Volume fraction] 39.5 % Normal 36.3-47.1 [facility] Comment on above: Performed By: #### B KIM, CDP #### [address] [address] Clinical Microbiologist: Keon San MD Hemoglobin (Bld) [Mass/Vol] 12.1 g/dL Normal 11.9-15.1 [facility] Comment on above: Performed By: #### B KIM, CDP #### [facility] [employer] [address] [place] [address] Clinical Microbiologist: Keon San MD Immature granulocytes/100 WBC (Bld) 1 % High 0 [facility] Comment on above: Performed By: #### B MP, CDP #### [address] [address] Clinical Microbiologist: Keon San MD Lymphocytes (Bld) [#/Vol] 2.14 10*3/uL Normal 1.10-3.70 [facility] Comment on above: Performed By: #### B MP, CDP #### [place] [address] Clinical Microbiologist: Keon San MD Lymphocytes/100 WBC (Bld) 33 % Normal 24-43 [facility] Comment on above: Performed By: #### B MP, CDP #### [place] [address] Clinical Microbiologist: Keon San MD MCH (RBC) [Entitic mass] 26.8 pg Normal 25.2-33.5 [facility] Comment on above: Performed By: #### B MP, CDP #### [place] [address] Clinical Microbiologist: Keon San MD MCHC (RBC) [Mass/Vol] 30.6 g/dL Normal 28.4-34.[address] [facility] Comment on above: Performed By: #### B MP, CDP #### [place] [address] Clinical Microbiologist: Keon San MD MCV (RBC) [Entitic vol] 87.4 fL Normal 82.6-102.9 [facility] Comment on above: Performed By: #### B MP, CDP #### [place] [address] Clinical Microbiologist: Keon San MD Monocytes (Bld) [#/Vol] 0.64 10*3/uL Normal 0.10-1.20 [facility] Comment on above: Performed By: #### B MP, CDP #### [address] [address] Clinical Microbiologist: Keon San MD Monocytes/100 WBC (Bld) 10 % Normal 3-12 [facility] Comment on above: Performed By: #### B MP, CDP #### [address] [address] Clinical Microbiologist: Keon San MD Neutrophil (Seg) 50 % Normal 36-65 [facility] Comment on above: Performed By: #### B MP, CDP #### [address] [address] Clinical Microbiologist: Keon San MD NRBC Automated 0.0 per 100 WBC Normal 0.0 [facility] Comment on above: Performed By: #### B MP, CDP #### [address] [address] Clinical Microbiologist: Keon San MD Platelet mean volume (Bld) [Entitic vol] 9.5 fL Normal 8.1-13.5 [facility] Comment on above: Performed By: #### B MP, CDP #### [address] [address] Clinical Microbiologist: Keon San MD Platelets (Bld) [#/Vol] 472 10*3/uL High 138-453 [facility] Comment on above: Performed By: #### B MP, CDP #### [address] [address] Clinical Microbiologist: Keon San MD RBC (Bld) [#/Vol] 4.52 10*6/uL Normal 3.95-5.11 [facility] Comment on above: Performed By: #### B MP, CDP #### [address] [address] Clinical Microbiologist: Keon San MD RBC morphology finding Nom (Bld) ANISOCYTOSIS PRESENT Normal [facility] Comment on above: Performed By: #### B KIM, CDP #### [address] [id number] Clinical Microbiologist: Keon San MD WBC (Bld) [#/Vol] 6.6 10*3/uL Normal 3.5-11.3 [facility] Comment on above: Performed By: #### B KIM, CDP #### [address] [address] Clinical Microbiologist: Keon San MD HCG, ,Urineon 05-16 Beta HCG ( test) Ql (U) Negative Normal NEG [facility] Comment on above: Result Comment: Spec [...] Performed By: #### B KIM, CDP #### [address] [id number] Clinical Microbiologist: Keon San MD Type + Screenon 05-16-2023 Type + Screen Sample Expiration 05/19/2023,2359 Arm Band Number [id number] ABO/Rh(D) O POSITIVE Antibody Screen NEGATIVE Normal [facility] Comment on above: Performed By: #### B KIM, CDP #### [address] [phone] Clinical Microbiologist: Keon San MD XR ABDOMEN (KUB) (SINGLE [...] Micheal Haas MD 05/16/23 Final result Normal [facility] XR HIP LEFT (2-3 VIEWS)on XR [...] Micheal Haas MD 05/16/23 Final result Normal [facility] CT [facility] CHEST ABDOMEN PELVIS WO CONTRAST [...] probably from previous instrumentation. Rectum appears intact. Peritoneum/Retroperiton eum: No free fluid. No lymphadenopathy. No evidence [...] Andrew Sol MD 05/15/23 Final result Normal [facility] XR ABDOMEN (KUB) (SINGLE AP VIEW)on 05-15-2023 XR ABDOMEN (KUB) (SINGLE AP VIEW) EXAMINATION: ONE SUPINE XRAY VIEW(S) OF THE ABDOMEN 05/14/2023 11:22 pm COMPARISON: None. HISTORY: ORDERING SYSTEM PROVIDED HISTORY: L sided lower quadrant pain TECHNOLOGIST PROVIDED HISTORY: L sided lower quadrant pain Reason for Exam: copy reader to left lower abdoman supine port FINDINGS: Thoracolumbar hardware. Mild levoconvex scoliosis. Gas-filled loops of small bowel. Sideplate and screws transfix the 10th rib on the left. There appears to be a displaced fragment. IMPRESSION: Ileus. ORIF displaced rib fracture fragment as above. Interpreted by: Storm Anderson MD Signed by: Storm Anderson MD 05/15/23 Final result Normal [facility] XR CHEST PORTABLEon 05-13-20 XR CHEST [...] Earnest Waller MD 05/13/23 Final result Normal [facility] US CHEST INCLUDING MEDIASTIN UMon 05-12-2023 [...] Reginaldo Love MD 05/12/23 Final result Normal [facility] CBCon 05-11-2023 Erythrocyte distribution width (RBC) [Ratio] 14.5 % High 11.8-14.4 [facility] Comment on above: Performed By: #### L D, CBC, TP, XYEL, PT #### [facility] [address] [place] [address] Clinical Microbiologist: Keon San MD Hematocrit (Bld) [Volume fraction] 37.4 % Normal 36.3-47.1 [facility] Comment on above: Performed By: #### L D, CBC, TP, XYEL, PT #### [facility] [employer] [address] [place] [address] [phone] Clinical Microbiologist: Keon San MD Hemoglobin (Bld) [Mass/Vol] 11.6 g/dL Low 11.9-15.1 [facility] Comment on above: Performed By: #### L D, CBC, TP, XYEL, PT #### [address] [address] Clinical Microbiologist: Keon San MD MCH (RBC) [Entitic mass] 26.7 pg Normal 25.2-33.5 [facility] Comment on above: Performed By: #### L D, CBC, TP, XYEL, PT #### [address] [address] Clinical Microbiologist: Keon San MD MCHC (RBC) [Mass/Vol] 31.0 g/dL Normal 28.4-34.[address] [facility] Comment on above: Performed By: #### L D, CBC, TP, XYEL, PT #### [address] [address] Clinical Microbiologist: Keon San MD MCV (RBC) [Entitic vol] 86.2 fL Normal 82.6-102.9 [facility] Comment on above: Performed By: #### L D, CBC, TP, XYEL, PT #### [address] [address] Clinical Microbiologist: Keon San MD NRBC Automated 0.0 per 100 WBC Normal 0.0 [facility] Comment on above: Performed By: #### L D, CBC, TP, XYEL, PT #### [address] [address] Clinical Microbiologist: Keon San MD Platelet mean volume (Bld) [Entitic vol] 9.6 fL Normal 8.1-13.5 [facility] Comment on above: Performed By: #### L D, CBC, TP, XYEL, PT #### [address] [address] Clinical Microbiologist: Keon San MD Platelets (Bld) [#/Vol] 374 10*3/uL Normal 138-453 [facility] Comment on above: Performed By: #### L D, CBC, TP, XYEL, PT #### [facility] [address] [place] [address] Clinical Microbiologist: Keon San MD RBC (Bld) [#/Vol] 4.34 10*6/uL Normal 3.95-5.11 [facility] Comment on above: Performed By: #### L D, CBC, TP, XYEL, PT #### [facility] [address] [place] [address] Clinical Microbiologist: Keon San MD WBC (Bld) [#/Vol] 7.0 10*3/uL Normal 3.5-11.3 [facility] Comment on above: Performed By: #### L D, CBC, TP, XYEL, PT #### [facility] [employer] [address] [place] [address] Clinical Microbiologist: Keon San MD CT CHEST PULMONARY EMBOLISM [...] Storm Anderson MD 05/10/23 Final result Normal [facility] Extra Yellow Tubeon 05-11-20 Extra Yellow Tube Normal [facility] Comment on above: Performed By: #### L D, CBC, TP, XYEL, PT #### [facility] [address] [place], [place] [id number] Clinical Microbiologist: Keon San MD Lactate Dehydrogenaseon LDH [Catalytic activity/Vol] 190 U/L Normal 135-214 [facility] Comment on above: Performed By: #### L D, CBC, TP, XYEL, PT #### [facility] [address] [place], [place] [phone] Clinical Microbiologist: Keon San MD MRI LUMBAR SPINE WO [...] Navdeep Garzon MD 05/11/23 Final result Normal [facility] PTon 05-11-2023 INR Coag (PPP) [Relative time] 1.0 {INR} Normal [facility] Comment on above: Result Comment: Therapeutic Range: Moderate Anticoagulant Intensity: INR = 2.0-3.0 High Anticoagulant Intensity: INR = 2.5-3.5 Performed By: #### L D, CBC, TP, XYEL, PT #### [facility] [address] [place] [address] Clinical Microbiologist: Keon San MD PT Coag (PPP) [Time] 12.9 s Normal 11.7-14.9 [facility] Comment on above: Performed By: #### L D, CBC, TP, XYEL, PT #### [facility] [address] [place] [address] Clinical Microbiologist: Keon San MD Protein, Totalon 05-11-2023 Protein [Mass/Vol] 6.8 g/dL Normal 6.4-8.3 [facility] Comment on above: Performed By: #### YENI SPARKS #### [facility] [address] [place] [address] Clinical Microbiologist: Keon San MD Basic Metabolic Profon 05-10 Anion gap [Moles/Vol] 12 mmol/L Normal 9-[address] [facility] Comment on above: Performed By: #### Severo ZARATE BMP #### [facility] [address] [place] [address] Clinical Microbiologist: Keon San MD Calcium [Mass/Vol] 8.7 mg/dL Normal 8.6-10.4 [facility] Comment on above: Performed By: #### Severo ZARATE BMP #### [facility] [address] [place] [address] [phone] Clinical Microbiologist: Keon San MD Chloride [Moles/Vol] 102 mmol/L Normal 98-107 [facility] Comment on above: Performed By: #### YENI SPARKS #### [facility] [address] [place] [address] Clinical Microbiologist: Keon San MD CO2 [Moles/Vol] 25 mmol/L Normal 20-31 [facility] Comment on above: Performed By: #### Severo ZARATE BMP #### [facility] [address] [place] [address] Clinical Microbiologist: Keon San MD Creatinine [Mass/Vol] 0.4 mg/dL Low 0.5-0.[address] [facility] Comment on above: Performed By: #### Severo ZARATE BMP #### [address] [address] Clinical Microbiologist: Keon San MD GFR/1.73 sq M.predicted among non-blacks MDRD (S/P/Bld) [Vol rate/Area] mL/min/{1.73_m2} Normal >60 [facility] Comment on above: Result Comment: These [...] Performed By: #### Severo ZARATE BMP #### [address] [address] Clinical Microbiologist: Keon San MD Glucose [Mass/Vol] 81 mg/dL Normal 70-99 [facility] Comment on above: Performed By: #### YENI SPARKS #### [facility] [address] [place] [address] Clinical Microbiologist: Keon San MD Potassium [Moles/Vol] 3.4 mmol/L Low 3.7-5.[address] [facility] Comment on above: Performed By: #### YENI SPARKS #### [address] [address] Clinical Microbiologist: Keon San MD Sodium [Moles/Vol] 139 mmol/L Normal 135-144 [facility] Comment on above: Performed By: #### YENI SPARKS #### [address] [address] Clinical Microbiologist: Keon San MD Urea nitrogen [Mass/Vol] 4 mg/dL Low 6-20 [facility] Comment on above: Performed By: #### YENI SPARKS #### [address] [address] Clinical Microbiologist: Keon San MD CBCon 05-10-2023 Erythrocyte distribution width (RBC) [Ratio] 14.4 % Normal 11.8-14.4 [facility] Comment on above: Performed By: #### Ike ALVAREZ CDP #### [address] [address] Clinical Microbiologist: Keon San MD Hematocrit (Bld) [Volume fraction] 36.0 % Low 36.3-47.1 [facility] Comment on above: Performed By: #### Ike ALVAREZ, CDP #### [address] [address] Clinical Microbiologist: Keon San MD Hemoglobin (Bld) [Mass/Vol] 11.0 g/dL Low 11.9-15.1 [facility] Comment on above: Performed By: #### B KIM, CDP #### [address] [address] Clinical Microbiologist: Keon San MD MCH (RBC) [Entitic mass] 26.6 pg Normal 25.2-33.5 [facility] Comment on above: Performed By: #### B MP, CDP #### [address] [address] Clinical Microbiologist: Keon San MD MCHC (RBC) [Mass/Vol] 30.6 g/dL Normal 28.4-34.[address] [facility] Comment on above: Performed By: #### B MP, CDP #### [address] [address] Clinical Microbiologist: Keon San MD MCV (RBC) [Entitic vol] 87.0 fL Normal 82.6-102.9 [facility] Comment on above: Performed By: #### B MP, CDP #### [address] [address] Clinical Microbiologist: Keon San MD NRBC Automated 0.0 per 100 WBC Normal 0.0 [facility] Comment on above: Performed By: #### B MP, CDP #### [address] [address] Clinical Microbiologist: Keon San MD Platelet mean volume (Bld) [Entitic vol] 10.1 fL Normal 8.1-13.5 [facility] Comment on above: Performed By: #### B MP, CDP #### [address] [address] Clinical Microbiologist: Keon San MD Platelets (Bld) [#/Vol] 344 10*3/uL Normal 138-453 [facility] Comment on above: Performed By: #### B MP, CDP #### [address] [address] Clinical Microbiologist: Keon San MD RBC (Bld) [#/Vol] 4.14 10*6/uL Normal 3.95-5.11 [facility] Comment on above: Performed By: #### B MP, CDP #### [address] [place] [address] Clinical Microbiologist: Keon San MD WBC (Bld) [#/Vol] 6.3 10*3/uL Normal 3.5-11.3 [facility] Comment on above: Performed By: #### B MP, CDP #### [employer] [address] [place], [place] [id number] Clinical Microbiologist: Keon San MD Troponinon 05-10-2023 Troponin, High Sens 12 ng/L Normal 0-14 [facility] Comment on above: Result Comment: High Sensitivity Troponin values cannot be compared with other Troponin methodologies. Performed By: #### T ROPI, BMP #### [facility] [address] [place], [place] [id number] Clinical Microbiologist: Keon San MD XR CHEST PORTABLEon 05-10-20 [...] Storm Anderson MD 05/10/23 Final result Normal [facility] XR LUMBAR SPINE (2-3 VIEWS)o n [...] Navdeep Garzon MD 05/10/23 Final result Normal [facility] CT LUMBAR SPINE WO CONTRASTo n [...] significant central canal stenosis is seen. SOFT TISSUES/RETROPERITONEUM : No paraspinal mass is seen. IMPRESSION: Postsurgical change. No complication. No acute osseous abnormality identified. Interpreted by: Rosalino Becerra MD Signed by: Rosalino Becerra MD 05/07/23 Final result Normal [facility] Comp Metabolic Profon 2022 Albumin [Mass/Vol] 3.1 g/dL Low 3.5-5.2 [facility] Comment on above: Performed By: #### U RC #### [facility] [employer] [address] [place] [address] Clinical Microbiologist: Keon San MD Albumin/Glob Ratio 1.0 Normal 1.0-2.5 [facility] Comment on above: Performed By: #### U RC #### [address] [address] Clinical Microbiologist: Keon San MD Alkaline Phos 57 U/L Normal 35-104 [facility] Comment on above: Performed By: #### U RC #### [address] [address] Clinical Microbiologist: Keon San MD ALT [Catalytic activity/Vol] 12 U/L Normal 5-33 [facility] Comment on above: Performed By: #### U RC #### [address] [address] Clinical Microbiologist: Keon San MD Anion gap [Moles/Vol] 12 mmol/L Normal 9-[address] [facility] Comment on above: Performed By: #### U RC #### [address] [address] Clinical Microbiologist: Keon San MD AST [Catalytic activity/Vol] 26 U/L Normal <32 [facility] Comment on above: Performed By: #### U RC #### [address] [address] Clinical Microbiologist: Keon San MD Bilirubin [Mass/Vol] 0.3 mg/dL Normal 0.3-1.2 [facility] Comment on above: Performed By: #### U RC #### [address] [address] Clinical Microbiologist: Keon San MD Calcium [Mass/Vol] 8.2 mg/dL Low 8.6-10.4 [facility] Comment on above: Performed By: #### U RC #### [address] [address] Clinical Microbiologist: Keon San MD Chloride [Moles/Vol] 108 mmol/L High 98-107 [facility] Comment on above: Performed By: #### U RC #### [address] [place] [address] Clinical Microbiologist: Keon San MD CO2 [Moles/Vol] 23 mmol/L Normal 20-31 [facility] Comment on above: Performed By: #### U RC #### [address] [address] Clinical Microbiologist: Keon San MD Creatinine [Mass/Vol] 0.4 mg/dL Low 0.5-0.[address] [facility] Comment on above: Performed By: #### U RC #### [address] [address] Clinical Microbiologist: Keon San MD GFR/1.73 sq M.predicted among non-blacks MDRD (S/P/Bld) [Vol rate/Area] mL/min/{1.73_m2} Normal >60 [facility] Comment on above: Result Comment: These [...] secretion. Performed By: #### U RC #### [address] [address] Clinical Microbiologist: Keon San MD Glucose [Mass/Vol] 86 mg/dL Normal 70-99 [facility] Comment on above: Performed By: #### U RC #### [address] [address] Clinical Microbiologist: Keon San MD Potassium [Moles/Vol] 4.1 mmol/L Normal 3.7-5.[address] [facility] Comment on above: Performed By: #### U RC #### [address] [address] Clinical Microbiologist: Keon San MD Protein [Mass/Vol] 6.2 g/dL Low 6.4-8.3 [facility] Comment on above: Performed By: #### U RC #### [address] [address] Clinical Microbiologist: Keon San MD Sodium [Moles/Vol] 143 mmol/L Normal 135-144 [facility] Comment on above: Performed By: #### U RC #### [address] [address] Clinical Microbiologist: Keon San MD Urea nitrogen [Mass/Vol] 4 mg/dL Low 6-20 [facility] Comment on above: Performed By: #### U RC #### [address] [address] Clinical Microbiologist: Keon San [facility] Erythrocyte distribution width (RBC) [Ratio] 14.4 % Normal 11.8-14.4 [facility] Comment on above: Performed By: #### U RC #### [address] [address] Clinical Microbiologist: Keon San MD Hematocrit (Bld) [Volume fraction] 37.9 % Normal 36.3-47.1 [facility] Comment on above: Performed By: #### U RC #### [address] [address] Clinical Microbiologist: Keon San MD Hemoglobin (Bld) [Mass/Vol] 11.8 g/dL Low 11.9-15.1 [facility] Comment on above: Performed By: #### U RC #### [address] [address] Clinical Microbiologist: Keon San MD MCH (RBC) [Entitic mass] 26.9 pg Normal 25.2-33.5 [facility] Comment on above: Performed By: #### U RC #### [address] [address] Clinical Microbiologist: Keon San MD MCHC (RBC) [Mass/Vol] 31.1 g/dL Normal 28.4-34.[address] [facility] Comment on above: Performed By: #### U RC #### [address] [address] Clinical Microbiologist: Keon San MD MCV (RBC) [Entitic vol] 86.5 fL Normal 82.6-102.9 [facility] Comment on above: Performed By: #### U RC #### [address] [address] Clinical Microbiologist: Keon San MD NRBC Automated 0.0 per 100 WBC Normal 0.0 [facility] Comment on above: Performed By: #### U RC #### [address] [address] Clinical Microbiologist: Keon San MD Platelet mean volume (Bld) [Entitic vol] 10.5 fL Normal 8.1-13.5 [facility] Comment on above: Performed By: #### U RC #### [address] [address] Clinical Microbiologist: Keon San MD Platelets (Bld) [#/Vol] 290 10*3/uL Normal 138-453 [facility] Comment on above: Performed By: #### U RC #### [address] [address] Clinical Microbiologist: Keon San MD RBC (Bld) [#/Vol] 4.38 10*6/uL Normal 3.95-5.11 [facility] Comment on above: Performed By: #### U RC #### [address] [address] Clinical Microbiologist: Keon San MD WBC (Bld) [#/Vol] 11.0 10*3/uL Normal 3.5-11.3 [facility] Comment on above: Performed By: #### U RC #### [address] [address] Clinical Microbiologist: Keon San MD Cult,Urineon 05-06-2023 Cult,Urine Specimen Description .INDWELLING CATH URINE Culture NO GROWTH Report Status FINAL 05/06/2023 Normal [facility] Comment on above: Performed By: #### U RC #### [address] [address] Clinical Microbiologist: Keon San MD Extra Green Tubeon 3 Extra Green Tube Normal [facility] Comment on above: Performed By: #### U RC #### [address] [address] Clinical Microbiologist: Keon San MD FLUORO FOR SURGICAL PROCEDUR ESon 05-05-2023 FLUORO FOR SURGICAL PROCEDURES Radiology exam is complete. No Radiologist dictation. Please follow up with ordering provider. Final result Normal [facility] APTTon 04-24-2023 aPTT Coag (Bld) [Time] 29.4 s Normal 23.0-36.5 [facility] Comment on above: Result Comment: IV Heparin Therapy Range: 66.0-92.0 sec Performed By: #### U RC #### [address] [address] Clinical Microbiologist: Keon San MD BUN + Creatinineon 3 Creatinine [Mass/Vol] 0.5 mg/dL Normal 0.5-0.[address] [facility] Comment on above: Performed By: #### U RC #### [address] [address] Clinical Microbiologist: Keon San MD GFR/1.73 sq M.predicted among non-blacks MDRD (S/P/Bld) [Vol rate/Area] mL/min/{1.73_m2} Normal >60 [facility] Comment on above: Result Comment: These [...] secretion. Performed By: #### U RC #### [address] [address] Clinical Microbiologist: Keon San MD Urea nitrogen [Mass/Vol] 7 mg/dL Normal 6-20 [facility] Comment on above: Performed By: #### U RC #### [address] [address] Clinical Microbiologist: Keon San MD CBCon 04-24-2023 Erythrocyte distribution width (RBC) [Ratio] 14.7 % High 11.8-14.4 [facility] Comment on above: Performed By: #### U RC #### [address] [address] Clinical Microbiologist: Keon San MD Hematocrit (Bld) [Volume fraction] 45.6 % Normal 36.3-47.1 [facility] Comment on above: Performed By: #### U RC #### [address] [address] Clinical Microbiologist: Keon San MD Hemoglobin (Bld) [Mass/Vol] 14.5 g/dL Normal 11.9-15.1 [facility] Comment on above: Performed By: #### U RC #### [address] [address] Clinical Microbiologist: Keon San MD MCH (RBC) [Entitic mass] 26.6 pg Normal 25.2-33.5 [facility] Comment on above: Performed By: #### U RC #### [place] [address] Clinical Microbiologist: Keon San MD MCHC (RBC) [Mass/Vol] 31.8 g/dL Normal 28.4-34.[address] [facility] Comment on above: Performed By: #### U RC #### [place] [address] Clinical Microbiologist: Keon San MD MCV (RBC) [Entitic vol] 83.5 fL Normal 82.6-102.9 [facility] Comment on above: Performed By: #### U RC #### [address] [address] Clinical Microbiologist: Keon San MD NRBC Automated 0.0 per 100 WBC Normal 0.0 [facility] Comment on above: Performed By: #### U RC #### [place] [address] Clinical Microbiologist: Keon San MD Platelet mean volume (Bld) [Entitic vol] 10.5 fL Normal 8.1-13.5 [facility] Comment on above: Performed By: #### U RC #### [address] [address] Clinical Microbiologist: Keon San MD Platelets (Bld) [#/Vol] 332 10*3/uL Normal 138-453 [facility] Comment on above: Performed By: #### U RC #### [address] [address] Clinical Microbiologist: Keon San MD RBC (Bld) [#/Vol] 5.46 10*6/uL High 3.95-5.11 [facility] Comment on above: Performed By: #### U RC #### [address] [address] Clinical Microbiologist: Keon San MD WBC (Bld) [#/Vol] 9.0 10*3/uL Normal 3.5-11.3 [facility] Comment on above: Performed By: #### U RC #### [address] [address] Clinical Microbiologist: Keon San MD Electrolyteson 04-24-2023 Anion gap [Moles/Vol] 10 mmol/L Normal 9-[address] [facility] Comment on above: Performed By: #### U RC #### [address] [address] Clinical Microbiologist: Keon San MD Chloride [Moles/Vol] 104 mmol/L Normal 98-107 [facility] Comment on above: Performed By: #### U RC #### [address] [address] Clinical Microbiologist: Keon San MD CO2 [Moles/Vol] 25 mmol/L Normal 20-31 [facility] Comment on above: Performed By: #### U RC #### [address] [address] Clinical Microbiologist: Keon San MD Potassium [Moles/Vol] 4.6 mmol/L Normal 3.7-5.[address] [facility] Comment on above: Performed By: #### U RC #### [address] [address] Clinical Microbiologist: Keon San MD Sodium [Moles/Vol] 139 mmol/L Normal 135-144 [facility] Comment on above: Performed By: #### U RC #### [address] [address] Clinical Microbiologist: Keon San MD Glucoseon 04-24-2023 Glucose [Mass/Vol] 87 mg/dL Normal 70-99 [facility] Comment on above: Performed By: #### U RC #### [address] [address] Clinical Microbiologist: Keon San MD PTon 04-24-2023 INR Coag (PPP) [Relative time] 1.0 {INR} Normal [facility] Comment on above: Result Comment: Therapeutic Range: Moderate Anticoagulant Intensity: INR = 2.0-3.0 High Anticoagulant Intensity: INR = 2.5-3.5 Performed By: #### U RC #### [address] [address] Clinical Microbiologist: Keon San MD PT Coag (PPP) [Time] 12.9 s Normal 11.7-14.9 [facility] Comment on above: Performed By: #### U RC #### [address] [address] Clinical Microbiologist: Keon San MD Type + Screenon 04-24-2023 Type + Screen Sample Expiration 05/08/2023,2359 Arm Band Number BE [id number] ABO/Rh(D) O POSITIVE Antibody Screen NEGATIVE Normal [facility] Comment on above: Performed By: #### [facility] #### [address] [address] Clinical Microbiologist: Keon San MD XR LUMBAR SPINE (2-3 VIEWS)o n 01-15-2023 XR LUMBAR SPINE (2-3 VIEWS) EXAMINATION: XRAY VIEWS OF THE LUMBAR SPINE 01/11/2023 11:06 am COMPARISON: CT lumbar spine of 19 December 2022 HISTORY: ORDERING SYSTEM PROVIDED HISTORY: Closed compression fracture of body of L1 vertebra ([facility]) TECHNOLOGIST PROVIDED HISTORY: Include T11 to sacrum [...] Shikha Ngo MD 01/15/23 Final result Normal [facility] CBC W Auto Differential pane l (Bld)on 07-28-2022 Basophils (Bld) [#/Vol] 0.03 10*3/uL <0.11 k/uL [facility] Basophils/100 WBC (Bld) 0.5 % [facility] Differential cell count method Nom (Bld) Auto [facility] Eosinophils (Bld) [#/Vol] 0.27 10*3/uL <0.46 k/uL [facility] Eosinophils/100 WBC (Bld) 4.2 % [facility] Erythrocyte distribution width (RBC) [Ratio] 13.5 % 11.5 - 15.0 % [facility] Hematocrit (Bld) [Volume fraction] 37.9 % 36.0 - 46.0 % [facility] Hemoglobin (Bld) [Mass/Vol] 11.4 g/dL Low 11.5 - 15.5 g/dL [facility] Immature granulocytes (Bld) [#/Vol] <0.10 k/uL [facility] Immature granulocytes/100 WBC (Bld) 0.3 % [facility] Lymphocytes (Bld) [#/Vol] 1.91 10*3/uL 1.00 - 4.00 k/uL [facility] Lymphocytes/100 WBC (Bld) 29.7 % [facility] MCH (RBC) [Entitic mass] 25.3 pg Low 26.0 - 34.0 pg [facility] MCHC (RBC) [Mass/Vol] 30.1 g/dL Low 30.5 - 36.0 g/dL [facility] MCV (RBC) [Entitic vol] 84.0 fL 80.0 - 100.0 fL [facility] Monocytes (Bld) [#/Vol] 0.46 10*3/uL <0.87 k/uL [facility] Monocytes/100 WBC (Bld) 7.2 % [facility] Neutrophils (Bld) [#/Vol] 3.74 10*3/uL 1.45 - 7.50 k/uL [facility] Neutrophils/100 WBC (Bld) 58.1 % [facility] Nucleated RBC (Bld) [#/Vol] <0.01 k/uL [facility] Nucleated RBC/100 WBC (Bld) [Ratio] 0.0 /100 WBC [facility] Platelet mean volume (Bld) [Entitic vol] 9.8 fL 9.0 - 12.7 fL [facility] Platelets (Bld) [#/Vol] 372 10*3/uL 150 - 400 k/uL [facility] RBC (Bld) [#/Vol] 4.51 10*6/uL 3.90 - 5.2 0 m/uL [facility] WBC (Bld) [#/Vol] 6.43 10*3/uL 3.70 - 11. 00 k/uL [facility] Comprehensive metabolic 2000 panelon 07-28-2022 Albumin [Mass/Vol] 4.3 g/dL 3.9 - 4.9 g/dL [facility] ALP [Catalytic activity/Vol] 70 U/L 34 - 123 U/L [facility] ALT [Catalytic activity/Vol] 29 U/L 7 - 38 U/L [facility] Anion gap [Moles/Vol] 10 mmol/L 9 - 18 mmol/L [facility] AST [Catalytic activity/Vol] 55 U/L High 13 - 35 U/L [facility] Bilirubin [Mass/Vol] 0.2 mg/dL 0.2 - 1 .3 mg/dL [facility] Calcium [Mass/Vol] 10.3 mg/dL High 8.5 - 10. 2 mg/dL [facility] Chloride [Moles/Vol] 99 mmol/L 97 - 10 5 mmol/L [facility] CO2 [Moles/Vol] 29 mmol/L 22 - 30 mmol/L [facility] Creatinine [Mass/Vol] 0.62 mg/dL 0.58 - 0.96 mg/dL [facility] Estimated Glomerular Filtration Rate 128 mL/min/1.73m >=60 mL/min/1.73m [facility] Glucose [Mass/Vol] 88 mg/dL 74 - 99 mg/dL [facility] Potassium [Moles/Vol] 4.4 mmol/L 3.7 - 5.1 mmol/L [facility] Protein [Mass/Vol] 7.7 g/dL 6.3 - 8.0 g/dL [facility] Sodium [Moles/Vol] 138 mmol/L 136 - 144 mmol/L [facility] Urea nitrogen [Mass/Vol] 11 mg/dL 7 - 21 mg/dL [facility] CBC W Auto Differential pane l (Bld)on 07-25-2022 Basophils (Bld) [#/Vol] 0.04 10*3/uL <0.11 k/uL [facility] Basophils/100 WBC (Bld) 0.6 % [facility] Differential cell count method Nom (Bld) Auto [facility] Eosinophils (Bld) [#/Vol] 0.25 10*3/uL <0.46 k/uL [facility] Eosinophils/100 WBC (Bld) 3.8 % [facility] Erythrocyte distribution width (RBC) [Ratio] 13.6 % 11.5 - 15.0 % [facility] Hematocrit (Bld) [Volume fraction] 36.3 % 36.0 - 46.0 % [facility] Hemoglobin (Bld) [Mass/Vol] 11.1 g/dL Low 11.5 - 15.5 g/dL [facility] Immature granulocytes (Bld) [#/Vol] 0.03 10*3/uL <0.10 k/uL [facility] Immature granulocytes/100 WBC (Bld) 0.5 % [facility] Lymphocytes (Bld) [#/Vol] 2.38 10*3/uL 1.00 - 4.00 k/uL [facility] Lymphocytes/100 WBC (Bld) 36.4 % [facility] MCH (RBC) [Entitic mass] 25.8 pg Low 26.0 - 34.0 pg [facility] MCHC (RBC) [Mass/Vol] 30.6 g/dL 30.5 - 36.0 g/dL [facility] MCV (RBC) [Entitic vol] 84.2 fL 80.0 - 100.0 fL [facility] Monocytes (Bld) [#/Vol] 0.62 10*3/uL <0.87 k/uL [facility] Monocytes/100 WBC (Bld) 9.5 % [facility] Neutrophils (Bld) [#/Vol] 3.21 10*3/uL 1.45 - 7.50 k/uL [facility] Neutrophils/100 WBC (Bld) 49.2 % [facility] Nucleated RBC (Bld) [#/Vol] <0.01 k/uL [facility] Nucleated RBC/100 WBC (Bld) [Ratio] 0.0 /100 WBC [facility] Platelet mean volume (Bld) [Entitic vol] 9.8 fL 9.0 - 12.7 fL [facility] Platelets (Bld) [#/Vol] 366 10*3/uL 150 - 400 k/uL [facility] RBC (Bld) [#/Vol] 4.31 10*6/uL 3.90 - 5.2 0 m/uL [facility] WBC (Bld) [#/Vol] 6.53 10*3/uL 3.70 - 11. 00 k/uL [facility] Comprehensive metabolic 2000 panelon 07-25-2022 Albumin [Mass/Vol] 4.1 g/dL 3.9 - 4.9 g/dL [facility] ALP [Catalytic activity/Vol] 72 U/L 34 - 123 U/L [facility] ALT [Catalytic activity/Vol] 19 U/L 7 - 38 U/L [facility] Anion gap [Moles/Vol] 9 mmol/L 9 - 18 mmol/L [facility] AST [Catalytic activity/Vol] 51 U/L High 13 - 35 U/L [facility] Bilirubin [Mass/Vol] 0.3 mg/dL 0.2 - 1 .3 mg/dL [facility] Calcium [Mass/Vol] 10.0 mg/dL 8.5 - 10. 2 mg/dL [facility] Chloride [Moles/Vol] 99 mmol/L 97 - 10 5 mmol/L [facility] CO2 [Moles/Vol] 31 mmol/L High 22 - 30 mmol/L [facility] Creatinine [Mass/Vol] 0.56 mg/dL Low 0.58 - 0.96 mg/dL [facility] Estimated Glomerular Filtration Rate 131 mL/min/1.73m >=60 mL/min/1.73m [facility] Glucose [Mass/Vol] 83 mg/dL 74 - 99 mg/dL [facility] Potassium [Moles/Vol] 4.5 mmol/L 3.7 - 5.1 mmol/L [facility] Protein [Mass/Vol] 7.3 g/dL 6.3 - 8.0 g/dL [facility] Sodium [Moles/Vol] 139 mmol/L 136 - 144 mmol/L [facility] Urea nitrogen [Mass/Vol] 11 mg/dL 7 - 21 mg/dL [facility] MAGNESIUM BLDon 07-25-2022 Magnesium [Mass/Vol] 1.8 mg/dL 1.7 - 2 .3 mg/dL [facility] CBC W Auto Differential pane l (Bld)on 07-21-2022 Basophils (Bld) [#/Vol] 0.04 10*3/uL <0.11 k/uL [facility] Basophils/100 WBC (Bld) 0.6 % [facility] Differential cell count method Nom (Bld) Auto [facility] Eosinophils (Bld) [#/Vol] 0.19 10*3/uL <0.46 k/uL [facility] Eosinophils/100 WBC (Bld) 2.7 % [facility] Erythrocyte distribution width (RBC) [Ratio] 14.0 % 11.5 - 15.0 % [facility] Hematocrit (Bld) [Volume fraction] 37.7 % 36.0 - 46.0 % [facility] Hemoglobin (Bld) [Mass/Vol] 11.3 g/dL Low 11.5 - 15.5 g/dL [facility] Immature granulocytes (Bld) [#/Vol] <0.10 k/uL [facility] Immature granulocytes/100 WBC (Bld) 0.3 % [facility] Lymphocytes (Bld) [#/Vol] 2.86 10*3/uL 1.00 - 4.00 k/uL [facility] Lymphocytes/100 WBC (Bld) 40.3 % [facility] MCH (RBC) [Entitic mass] 25.5 pg Low 26.0 - 34.0 pg [facility] MCHC (RBC) [Mass/Vol] 30.0 g/dL Low 30.5 - 36.0 g/dL [facility] MCV (RBC) [Entitic vol] 84.9 fL 80.0 - 100.0 fL [facility] Monocytes (Bld) [#/Vol] 0.64 10*3/uL <0.87 k/uL [facility] Monocytes/100 WBC (Bld) 9.0 % [facility] Neutrophils (Bld) [#/Vol] 3.34 10*3/uL 1.45 - 7.50 k/uL [facility] Neutrophils/100 WBC (Bld) 47.1 % [facility] Nucleated RBC (Bld) [#/Vol] <0.01 k/uL [facility] Nucleated RBC/100 WBC (Bld) [Ratio] 0.0 /100 WBC [facility] Platelet mean volume (Bld) [Entitic vol] 10.1 fL 9.0 - 12.7 fL [facility] Platelets (Bld) [#/Vol] 374 10*3/uL 150 - 400 k/uL [facility] RBC (Bld) [#/Vol] 4.44 10*6/uL 3.90 - 5.2 0 m/uL [facility] WBC (Bld) [#/Vol] 7.09 10*3/uL 3.70 - 11. 00 k/uL [facility] Comprehensive metabolic 2000 panelon 07-21-2022 Albumin [Mass/Vol] 4.0 g/dL 3.9 - 4.9 g/dL [facility] ALP [Catalytic activity/Vol] 76 U/L 34 - 123 U/L [facility] ALT [Catalytic activity/Vol] 12 U/L 7 - 38 U/L [facility] Anion gap [Moles/Vol] 15 mmol/L 9 - 18 mmol/L [facility] AST [Catalytic activity/Vol] 22 U/L 13 - 35 U/L [facility] Bilirubin [Mass/Vol] 0.2 mg/dL 0.2 - 1 .3 mg/dL [facility] Calcium [Mass/Vol] 9.9 mg/dL 8.5 - 10. 2 mg/dL [facility] Chloride [Moles/Vol] 101 mmol/L 97 - 10 5 mmol/L [facility] CO2 [Moles/Vol] 25 mmol/L 22 - 30 mmol/L [facility] Creatinine [Mass/Vol] 0.53 mg/dL Low 0.58 - 0.96 mg/dL [facility] Estimated Glomerular Filtration Rate 133 mL/min/1.73m >=60 mL/min/1.73m [facility] Glucose [Mass/Vol] 69 mg/dL Low 74 - 99 mg/dL [facility] Potassium [Moles/Vol] 4.3 mmol/L 3.7 - 5.1 mmol/L [facility] Protein [Mass/Vol] 7.4 g/dL 6.3 - 8.0 g/dL [facility] Sodium [Moles/Vol] 141 mmol/L 136 - 144 mmol/L [facility] Urea nitrogen [Mass/Vol] 14 mg/dL 7 - 21 mg/dL [facility] CBC W Auto Differential pane l (Bld)on 07-18-2022 Basophils (Bld) [#/Vol] 0.06 10*3/uL <0.11 k/uL [facility] Basophils/100 WBC (Bld) 0.9 % [facility] Differential cell count method Nom (Bld) Auto [facility] Eosinophils (Bld) [#/Vol] 0.21 10*3/uL <0.46 k/uL [facility] Eosinophils/100 WBC (Bld) 3.0 % [facility] Erythrocyte distribution width (RBC) [Ratio] 13.9 % 11.5 - 15.0 % [facility] Hematocrit (Bld) [Volume fraction] 36.3 % 36.0 - 46.0 % [facility] Hemoglobin (Bld) [Mass/Vol] 11.0 g/dL Low 11.5 - 15.5 g/dL [facility] Immature granulocytes (Bld) [#/Vol] <0.10 k/uL [facility] Immature granulocytes/100 WBC (Bld) 0.1 % [facility] Lymphocytes (Bld) [#/Vol] 3.19 10*3/uL 1.00 - 4.00 k/uL [facility] Lymphocytes/100 WBC (Bld) 45.9 % [facility] MCH (RBC) [Entitic mass] 25.3 pg Low 26.0 - 34.0 pg [facility] MCHC (RBC) [Mass/Vol] 30.3 g/dL Low 30.5 - 36.0 g/dL [facility] MCV (RBC) [Entitic vol] 83.6 fL 80.0 - 100.0 fL [facility] Monocytes (Bld) [#/Vol] 0.65 10*3/uL <0.87 k/uL [facility] Monocytes/100 WBC (Bld) 9.4 % [facility] Neutrophils (Bld) [#/Vol] 2.83 10*3/uL 1.45 - 7.50 k/uL [facility] Neutrophils/100 WBC (Bld) 40.7 % [facility] Nucleated RBC (Bld) [#/Vol] <0.01 k/uL [facility] Nucleated RBC/100 WBC (Bld) [Ratio] 0.0 /100 WBC [facility] Platelet mean volume (Bld) [Entitic vol] 9.5 fL 9.0 - 12.7 fL [facility] Platelets (Bld) [#/Vol] 437 10*3/uL High 150 - 400 k/uL [facility] RBC (Bld) [#/Vol] 4.34 10*6/uL 3.90 - 5.2 0 m/uL [facility] WBC (Bld) [#/Vol] 6.95 10*3/uL 3.70 - 11. 00 k/uL [facility] Comprehensive metabolic 2000 panelon 07-18-2022 Albumin [Mass/Vol] 4.0 g/dL 3.9 - 4.9 g/dL [facility] ALP [Catalytic activity/Vol] 83 U/L 34 - 123 U/L [facility] ALT [Catalytic activity/Vol] 15 U/L 7 - 38 U/L [facility] Anion gap [Moles/Vol] 8 mmol/L Low 9 - 18 mmol/L [facility] AST [Catalytic activity/Vol] 34 U/L 13 - 35 U/L [facility] Bilirubin [Mass/Vol] 0.2 mg/dL 0.2 - 1 .3 mg/dL [facility] Calcium [Mass/Vol] 10.3 mg/dL High 8.5 - 10. 2 mg/dL [facility] Chloride [Moles/Vol] 100 mmol/L 97 - 10 5 mmol/L [facility] CO2 [Moles/Vol] 31 mmol/L High 22 - 30 mmol/L [facility] Creatinine [Mass/Vol] 0.77 mg/dL 0.58 - 0.96 mg/dL [facility] Estimated Glomerular Filtration Rate 111 mL/min/1.73m >=60 mL/min/1.73m [facility] Glucose [Mass/Vol] 84 mg/dL 74 - 99 mg/dL [facility] Potassium [Moles/Vol] 4.4 mmol/L 3.7 - 5.1 mmol/L [facility] Protein [Mass/Vol] 7.7 g/dL 6.3 - 8.0 g/dL [facility] Sodium [Moles/Vol] 139 mmol/L 136 - 144 mmol/L [facility] Urea nitrogen [Mass/Vol] 14 mg/dL 7 - 21 mg/dL [facility] MAGNESIUM BLDon 07-18-2022 Magnesium [Mass/Vol] 1.8 mg/dL 1.7 - 2 .3 mg/dL [facility] CBC W Auto Differential pane l (Bld)on 07-14-2022 Basophils (Bld) [#/Vol] 0.07 10*3/uL <0.11 k/uL [facility] Basophils/100 WBC (Bld) 1.0 % [facility] Differential cell count method Nom (Bld) Auto [facility] Eosinophils (Bld) [#/Vol] 0.19 10*3/uL <0.46 k/uL [facility] Eosinophils/100 WBC (Bld) 2.8 % [facility] Erythrocyte distribution width (RBC) [Ratio] 14.0 % 11.5 - 15.0 % [facility] Hematocrit (Bld) [Volume fraction] 37.6 % 36.0 - 46.0 % [facility] Hemoglobin (Bld) [Mass/Vol] 11.1 g/dL Low 11.5 - 15.5 g/dL [facility] Immature granulocytes (Bld) [#/Vol] 0.03 10*3/uL <0.10 k/uL [facility] Immature granulocytes/100 WBC (Bld) 0.4 % [facility] Lymphocytes (Bld) [#/Vol] 2.25 10*3/uL 1.00 - 4.00 k/uL [facility] Lymphocytes/100 WBC (Bld) 32.8 % [facility] MCH (RBC) [Entitic mass] 25.3 pg Low 26.0 - 34.0 pg [facility] MCHC (RBC) [Mass/Vol] 29.5 g/dL Low 30.5 - 36.0 g/dL [facility] MCV (RBC) [Entitic vol] 85.6 fL 80.0 - 100.0 fL [facility] Monocytes (Bld) [#/Vol] 0.48 10*3/uL <0.87 k/uL [facility] Monocytes/100 WBC (Bld) 7.0 % [facility] Neutrophils (Bld) [#/Vol] 3.85 10*3/uL 1.45 - 7.50 k/uL [facility] Neutrophils/100 WBC (Bld) 56.0 % [facility] Nucleated RBC (Bld) [#/Vol] <0.01 k/uL [facility] Nucleated RBC/100 WBC (Bld) [Ratio] 0.0 /100 WBC [facility] Platelet mean volume (Bld) [Entitic vol] 9.3 fL 9.0 - 12.7 fL [facility] Platelets (Bld) [#/Vol] 507 10*3/uL High 150 - 400 k/uL [facility] RBC (Bld) [#/Vol] 4.39 10*6/uL 3.90 - 5.2 0 m/uL [facility] WBC (Bld) [#/Vol] 6.87 10*3/uL 3.70 - 11. 00 k/uL [facility] Comprehensive metabolic 2000 panelon 07-14-2022 Albumin [Mass/Vol] 4.1 g/dL 3.9 - 4.9 g/dL [facility] ALP [Catalytic activity/Vol] 88 U/L 34 - 123 U/L [facility] ALT [Catalytic activity/Vol] 13 U/L 7 - 38 U/L [facility] Anion gap [Moles/Vol] 10 mmol/L 9 - 18 mmol/L [facility] AST [Catalytic activity/Vol] 33 U/L 13 - 35 U/L [facility] Bilirubin [Mass/Vol] 0.2 mg/dL 0.2 - 1 .3 mg/dL [facility] Calcium [Mass/Vol] 10.3 mg/dL High 8.5 - 10. 2 mg/dL [facility] Chloride [Moles/Vol] 100 mmol/L 97 - 10 5 mmol/L [facility] CO2 [Moles/Vol] 29 mmol/L 22 - 30 mmol/L [facility] Creatinine [Mass/Vol] 0.65 mg/dL 0.58 - 0.96 mg/dL [facility] Estimated Glomerular Filtration Rate 126 mL/min/1.73m >=60 mL/min/1.73m [facility] Glucose [Mass/Vol] 85 mg/dL 74 - 99 mg/dL [facility] Potassium [Moles/Vol] 4.5 mmol/L 3.7 - 5.1 mmol/L [facility] Protein [Mass/Vol] 7.9 g/dL 6.3 - 8.0 g/dL [facility] Sodium [Moles/Vol] 139 mmol/L 136 - 144 mmol/L [facility] Urea nitrogen [Mass/Vol] 18 mg/dL 7 - 21 mg/dL [facility] ALKALINE PHOSPHATASEon 07-12 ALP [Catalytic activity/Vol] 85 U/L 34 - 123 U/L [facility] CBC W Auto Differential pane l (Bld)on 07-11-2022 Basophils (Bld) [#/Vol] 0.07 10*3/uL <0.11 k/uL [facility] Basophils/100 WBC (Bld) 0.9 % [facility] Differential cell count method Nom (Bld) Auto [facility] Eosinophils (Bld) [#/Vol] 0.27 10*3/uL <0.46 k/uL [facility] Eosinophils/100 WBC (Bld) 3.6 % [facility] Erythrocyte distribution width (RBC) [Ratio] 14.2 % 11.5 - 15.0 % [facility] Hematocrit (Bld) [Volume fraction] 37.1 % 36.0 - 46.0 % [facility] Hemoglobin (Bld) [Mass/Vol] 11.1 g/dL Low 11.5 - 15.5 g/dL [facility] Immature granulocytes (Bld) [#/Vol] 0.07 10*3/uL <0.10 k/uL [facility] Immature granulocytes/100 WBC (Bld) 0.9 % [facility] Lymphocytes (Bld) [#/Vol] 2.57 10*3/uL 1.00 - 4.00 k/uL [facility] Lymphocytes/100 WBC (Bld) 33.9 % [facility] MCH (RBC) [Entitic mass] 25.7 pg Low 26.0 - 34.0 pg [facility] MCHC (RBC) [Mass/Vol] 29.9 g/dL Low 30.5 - 36.0 g/dL [facility] MCV (RBC) [Entitic vol] 85.9 fL 80.0 - 100.0 fL [facility] Monocytes (Bld) [#/Vol] 0.51 10*3/uL <0.87 k/uL [facility] Monocytes/100 WBC (Bld) 6.7 % [facility] Neutrophils (Bld) [#/Vol] 4.08 10*3/uL 1.45 - 7.50 k/uL [facility] Neutrophils/100 WBC (Bld) 54.0 % [facility] Nucleated RBC (Bld) [#/Vol] <0.01 k/uL [facility] Nucleated RBC/100 WBC (Bld) [Ratio] 0.0 /100 WBC [facility] Platelet mean volume (Bld) [Entitic vol] 9.2 fL 9.0 - 12.7 fL [facility] Platelets (Bld) [#/Vol] 554 10*3/uL High 150 - 400 k/uL [facility] RBC (Bld) [#/Vol] 4.32 10*6/uL 3.90 - 5.2 0 m/uL [facility] WBC (Bld) [#/Vol] 7.57 10*3/uL 3.70 - 11. 00 k/uL [facility] Comprehensive metabolic 2000 panelon 07-11-2022 Albumin [Mass/Vol] 4.0 g/dL 3.9 - 4.9 g/dL [facility] ALP [Catalytic activity/Vol] 87 U/L 34 - 123 U/L [facility] ALT [Catalytic activity/Vol] 17 U/L 7 - 38 U/L [facility] Anion gap [Moles/Vol] 12 mmol/L 9 - 18 mmol/L [facility] AST [Catalytic activity/Vol] 25 U/L 13 - 35 U/L [facility] Bilirubin [Mass/Vol] 0.2 mg/dL 0.2 - 1 .3 mg/dL [facility] Calcium [Mass/Vol] 10.0 mg/dL 8.5 - 10. 2 mg/dL [facility] Chloride [Moles/Vol] 103 mmol/L 97 - 10 5 mmol/L [facility] CO2 [Moles/Vol] 27 mmol/L 22 - 30 mmol/L [facility] Creatinine [Mass/Vol] 0.65 mg/dL 0.58 - 0.96 mg/dL [facility] Estimated Glomerular Filtration Rate 119 mL/min/1.73m >=60 mL/min/1.73m [facility] Glucose [Mass/Vol] 81 mg/dL 74 - 99 mg/dL [facility] Potassium [Moles/Vol] 4.5 mmol/L 3.7 - 5.1 mmol/L [facility] Protein [Mass/Vol] 7.6 g/dL 6.3 - 8.0 g/dL [facility] Sodium [Moles/Vol] 142 mmol/L 136 - 144 mmol/L [facility] Urea nitrogen [Mass/Vol] 14 mg/dL 7 - 21 mg/dL [facility] MAGNESIUM BLDon 07-11-2022 Magnesium [Mass/Vol] 2.0 mg/dL 1.7 - 2 .3 mg/dL [facility] Basic Metabolic Panelon Anion gap [Moles/Vol] 10 mmol/L 9 - 17 mmol/L [facility] [employer] Calcium [Mass/Vol] 9.3 mg/dL 8.6 - 10. 4 mg/dL [facility] [employer] Chloride [Moles/Vol] 100 mmol/L 98 - 10 7 mmol/L [facility] [employer] CO2 [Moles/Vol] 23 mmol/L 20 - 31 mmol/L [facility] [employer] Creatinine [Mass/Vol] 0.71 mg/dL 0.50 - 0.90 mg/dL [facility] [employer]on[employer] GFR/1.73 sq M.predicted MDRD (S/P/Bld) [Vol rate/Area] - PINF [facility] Comment on above: Effective Apr 04, 2022 [...] [Mass/Vol] 99 mg/dL 70 - 99 mg/dL [facility]ENTERPrepmatic Interpretation and review of laboratory results Abnormal [facility] [employer] Potassium [Moles/Vol] 4.4 mmol/L 3.7 - 5.3 mmol/L [facility] Sodium [Moles/Vol] 133 mmol/L Low 135 - 144 mmol/L [facility] Urea nitrogen (BldV) [Mass/Vol] 19 mg/dL 6 - 20 mg/dL [facility] Basic Metabolic Panelon Anion gap [Moles/Vol] 11 mmol/L 9 - 17 mmol/L [facility] Calcium [Mass/Vol] 9.2 mg/dL 8.6 - 10. 4 mg/dL [facility] Chloride [Moles/Vol] 100 mmol/L 98 - 10 7 mmol/L [facility] CO2 [Moles/Vol] 29 mmol/L 20 - 31 mmol/L [facility] Creatinine [Mass/Vol] 0.57 mg/dL 0.50 - 0.90 mg/dL [facility] GFR/1.73 sq M.predicted MDRD (S/P/Bld) [Vol rate/Area] - PINF [facility] Comment on above: Effective Apr 04, 2022 [...] [Mass/Vol] 92 mg/dL 70 - 99 mg/dL [facility] Potassium [Moles/Vol] 4.3 mmol/L 3.7 - 5.3 mmol/L [facility] Sodium [Moles/Vol] 140 mmol/L 135 - 144 mmol/L [facility] Urea nitrogen (BldV) [Mass/Vol] 12 mg/dL 6 - 20 mg/dL [facility] Basic Metabolic Panelon Anion gap [Moles/Vol] 9 mmol/L 9 - 17 mmol/L [facility] Calcium [Mass/Vol] 9.2 mg/dL 8.6 - 10. 4 mg/dL [facility] Chloride [Moles/Vol] 96 mmol/L Low 98 - 10 7 mmol/L [facility] CO2 [Moles/Vol] 29 mmol/L 20 - 31 mmol/L [facility] Creatinine [Mass/Vol] 0.48 mg/dL Low 0.50 - 0.90 mg/dL [facility] GFR/1.73 sq M.predicted MDRD (S/P/Bld) [Vol rate/Area] - PINF [facility] Comment on above: Effective Apr 04, 2022 [...] [Mass/Vol] 89 mg/dL 70 - 99 mg/dL [facility] Interpretation and review of laboratory results Abnormal [facility] Potassium [Moles/Vol] 3.7 mmol/L 3.7 - 5.3 mmol/L [facility] Sodium [Moles/Vol] 134 mmol/L Low 135 - 144 mmol/L [facility] Urea nitrogen (BldV) [Mass/Vol] 10 mg/dL 6 - 20 mg/dL [facility] CBC with Auto Differentialon 07-04-2022 Absolute Eos # 0.30 [facility] Absolute Immature Granulocyte 0.05 [facility] Absolute Lymph # 2.41 [facility] Absolute Weakley # 0.61 [facility] Basophils (Bld) [#/Vol] 0.07 10*3/uL [facility] Basophils/100 WBC (Bld) 1 % 0 - 2 % [facility] Eosinophils/100 WBC (Bld) 4 % 1 - 4 % [facility] Hematocrit (Bld) [Volume fraction] 31.8 % Low 36.3 - 47.1 % [facility] Hemoglobin (Bld) [Mass/Vol] 9.4 g/dL Low 11.9 - 15.1 g/dL [facility] Immature granulocytes/100 WBC (Bld) 1 % High 0 [facility] Interpretation and review of laboratory results Abnormal [facility] Lymphocytes/100 WBC (Bld) 31 % 24 - 43 % [facility] MCH (RBC) [Entitic mass] 25.9 pg 25.2 - 33.5 pg [facility] MCHC (RBC) [Mass/Vol] 29.6 g/dL 28.4 - 34.8 g/dL [facility] MCV (RBC) [Entitic vol] 87.6 fL 82.6 - 102.9 fL [facility] Monocytes/100 WBC (Bld) 8 % 3 - 12 % [facility] NRBC Automated 0.0 0.0 per 100 WBC [facility] Platelet distribution width (Bld) [Ratio] 13.3 % 11.8 - 14.4 % [facility] Platelet mean volume (Bld) [Entitic vol] 9.0 fL 8.1 - 13.5 fL [facility] Platelets (Bld) [#/Vol] 467 10*3/uL High [facility] RBC (Bld) [#/Vol] 3.63 10*6/uL Low 3.95 - 5.1 1 m/uL [facility] Segmented neutrophils/100 WBC (Bld) 55 % 36 - 65 % [facility] Segs Absolute 4.29 [facility] WBC (Bld) [#/Vol] 7.7 10*3/uL [facility] Basic Metabolic Panelon Anion gap [Moles/Vol] 11 mmol/L 9 - 17 mmol/L [facility] Calcium [Mass/Vol] 8.9 mg/dL 8.6 - 10. 4 mg/dL [facility] Chloride [Moles/Vol] 96 mmol/L Low 98 - 10 7 mmol/L [facility] CO2 [Moles/Vol] 31 mmol/L 20 - 31 mmol/L [facility] Creatinine [Mass/Vol] 0.61 mg/dL 0.50 - 0.90 mg/dL [facility] GFR/1.73 sq M.predicted MDRD (S/P/Bld) [Vol rate/Area] - PINF [facility] Comment on above: Effective Apr 04, 2022 [...] [Mass/Vol] 92 mg/dL 70 - 99 mg/dL [facility] Interpretation and review of laboratory results Abnormal [facility] Potassium [Moles/Vol] 4.0 mmol/L 3.7 - 5.3 mmol/L [facility] Sodium [Moles/Vol] 138 mmol/L 135 - 144 mmol/L [facility] Urea nitrogen (BldV) [Mass/Vol] 11 mg/dL 6 - 20 mg/dL [facility] CBC with Auto Differentialon 07-03-2022 Absolute Eos # 0.28 [facility] Absolute Immature Granulocyte 0.05 [facility] Absolute Lymph # 2.12 [facility] Absolute Weakley # 0.70 [facility] Basophils (Bld) [#/Vol] 0.05 10*3/uL [facility] Basophils/100 WBC (Bld) 1 % 0 - 2 % [facility] Eosinophils/100 WBC (Bld) 4 % 1 - 4 % [facility] Hematocrit (Bld) [Volume fraction] 29.5 % Low 36.3 - 47.1 % [facility] Hemoglobin (Bld) [Mass/Vol] 8.9 g/dL Low 11.9 - 15.1 g/dL [facility] Immature granulocytes/100 WBC (Bld) 1 % High 0 [facility] Interpretation and review of laboratory results Abnormal [facility] Lymphocytes/100 WBC (Bld) 30 % 24 - 43 % [facility] MCH (RBC) [Entitic mass] 26.0 pg 25.2 - 33.5 pg [facility] MCHC (RBC) [Mass/Vol] 30.2 g/dL 28.4 - 34.8 g/dL [facility] MCV (RBC) [Entitic vol] 86.3 fL 82.6 - 102.9 fL [facility] Monocytes/100 WBC (Bld) 10 % 3 - 12 % [facility] NRBC Automated 0.0 0.0 per 100 WBC [facility] Platelet distribution width (Bld) [Ratio] 13.4 % 11.8 - 14.4 % [facility] Platelet mean volume (Bld) [Entitic vol] 9.2 fL 8.1 - 13.5 fL [facility] Platelets (Bld) [#/Vol] 413 10*3/uL [facility] RBC (Bld) [#/Vol] 3.42 10*6/uL Low 3.95 - 5.1 1 m/uL [facility] Segmented neutrophils/100 WBC (Bld) 54 % 36 - 65 % [facility] Segs Absolute 3.81 [facility] WBC (Bld) [#/Vol] 7.0 10*3/uL [facility] Basic Metabolic Panelon 12-3 Anion gap [Moles/Vol] 10 mmol/L 9 - 17 mmol/L [facility] Calcium [Mass/Vol] 8.8 mg/dL 8.6 - 10. 4 mg/dL [facility] Chloride [Moles/Vol] 95 mmol/L Low 98 - 10 7 mmol/L [facility] CO2 [Moles/Vol] 29 mmol/L 20 - 31 mmol/L [facility] Creatinine [Mass/Vol] 0.55 mg/dL 0.50 - 0.90 mg/dL [facility] GFR/1.73 sq M.predicted MDRD (S/P/Bld) [Vol rate/Area] - PINF [facility] Comment on above: Effective Apr 04, 2022 [...] 109 mg/dL High 70 - 99 mg/dL [facility] Interpretation and review of laboratory results Abnormal [facility] Potassium [Moles/Vol] 3.7 mmol/L 3.7 - 5.3 mmol/L [facility] Sodium [Moles/Vol] 134 mmol/L Low 135 - 144 mmol/L [facility] Urea nitrogen (BldV) [Mass/Vol] 10 mg/dL 6 - 20 mg/dL [facility] CBC with Auto Differentialon 07-02-2022 Absolute Eos # 0.35 [facility] Absolute Immature Granulocyte 0.05 [facility] Absolute Lymph # 2.11 [facility] Absolute Weak[place] # 0.70 [facility] Basophils (Bld) [#/Vol] 0.05 10*3/uL [facility] Basophils/100 WBC (Bld) 1 % 0 - 2 % [facility] Eosinophils/100 WBC (Bld) 5 % High 1 - 4 % [facility] Hematocrit (Bld) [Volume fraction] 30.0 % Low 36.3 - 47.1 % [facility] Hemoglobin (Bld) [Mass/Vol] 9.0 g/dL Low 11.9 - 15.1 g/dL [facility] Immature granulocytes/100 WBC (Bld) 1 % High 0 [facility] Interpretation and review of laboratory results Abnormal [facility] Lymphocytes/100 WBC (Bld) 29 % 24 - 43 % [facility] MCH (RBC) [Entitic mass] 26.1 pg 25.2 - 33.5 pg [facility] MCHC (RBC) [Mass/Vol] 30.0 g/dL 28.4 - 34.8 g/dL [facility] MCV (RBC) [Entitic vol] 87.0 fL 82.6 - 102.9 fL [facility] Monocytes/100 WBC (Bld) 10 % 3 - 12 % [facility] NRBC Automated 0.0 0.0 per 100 WBC [facility] Platelet distribution width (Bld) [Ratio] 13.5 % 11.8 - 14.4 % [facility] Platelet mean volume (Bld) [Entitic vol] 9.4 fL 8.1 - 13.5 fL [facility] Platelets (Bld) [#/Vol] 376 10*3/uL [facility] RBC (Bld) [#/Vol] 3.45 10*6/uL Low 3.95 - 5.1 1 m/uL [facility] Segmented neutrophils/100 WBC (Bld) 55 % 36 - 65 % [facility] Segs Absolute 4.04 [facility] WBC (Bld) [#/Vol] 7.3 10*3/uL [facility] Basic Metabolic Panelon 12-3 Anion gap [Moles/Vol] 12 mmol/L 9 - 17 mmol/L [facility] Calcium [Mass/Vol] 8.9 mg/dL 8.6 - 10. 4 mg/dL [facility] Chloride [Moles/Vol] 94 mmol/L Low 98 - 10 7 mmol/L [facility] CO2 [Moles/Vol] 29 mmol/L 20 - 31 mmol/L [facility] Creatinine [Mass/Vol] 0.46 mg/dL Low 0.50 - 0.90 mg/dL [facility] GFR/1.73 sq M.predicted MDRD (S/P/Bld) [Vol rate/Area] - PINF [facility] Comment on above: Effective Apr 04, 2022 [...] 106 mg/dL High 70 - 99 mg/dL [facility] Interpretation and review of laboratory results Abnormal [facility] Potassium [Moles/Vol] 4.1 mmol/L 3.7 - 5.3 mmol/L [facility] Sodium [Moles/Vol] 135 mmol/L 135 - 144 mmol/L [facility] Urea nitrogen (BldV) [Mass/Vol] 9 mg/dL 6 - 20 mg/dL [facility] VL DUP LOWER EXTREMITY VENOU S BILATERALon 07-01-2022 Skyler Hardin MD - 07/01/2022 [facility] Vascular Lower Extremities DVT Study [facility]30/[facility]22 [place] Date of 1995 Gender Female Age 26 year(s) Race Room Number 0138 Corporate ID [id number] # Patient Acct [id number] # MR # [id number] Fingerprint Expert Kacie Thomas RVT Interpreting Physician Wilfred Holland [...] DVT Study Measurements Right 2D Measurements + +-------- --+ +---- ------ + !Location !Visualized!Compressibi lity!Thrombosis! + +-------- --+ +---- ------ + !Common Femoral !Yes !Yes !None ! + +-------- --+ +---- ------ + !Prox Femoral !Yes !Yes !None ! + +-------- --+ +---- ------ + !Mid Femoral !Yes !Yes !None ! + +-------- --+ +---- ------ + !Dist Femoral !Yes !Yes !None ! + +-------- --+ +---- ------ + !Deep Femoral !No ! ! ! + +-------- --+ +---- ------ + !Popliteal !Yes !Yes !None ! + +-------- --+ +---- ------ + !Sapheno Femoral Junction !Yes !Yes !None ! + +-------- --+ +---- ------ + !PTV !Yes !Yes !None ! + +-------- --+ +---- ------ + !Peroneal !Partial !Yes !None ! + +-------- --+ +---- ------ + !Gastroc !Yes !Yes !None ! + +-------- --+ +---- ------ + !GSV Thigh !Yes !Yes !None ! + +-------- --+ +---- ------ + !GSV Knee !Yes !Yes !None ! + +-------- --+ +---- ------ + !GSV Ankle !Yes !Yes !None ! + +-------- --+ +---- ------ + !SSV !Yes !Yes !None ! + +-------- --+ +---- ------ + Right Doppler Measurements + -----+------+------+--- ------ + !Location !Signal!Reflux!Reflux (msec) ! + -----+------+------+--- ------ + !Common Femoral !Phasic! ! ! + -----+------+------+--- ------ + !Prox Femoral !Phasic! ! ! + -----+------+------+--- ------ + !Popliteal !Phasic! ! ! + -----+------+------+--- ------ + Left Lower Extremities DVT Study Measurements Left 2D Measurements + +-------- --+ +---- ------ + (more content not included)... [employer] Work Phone: VL DUP LOWER EXTREMITY VENOU S BILATERALOrdered By: Skyler Hardin on 07-01-2022 [employer] Work Phone: Basic Metabolic Panelon -2 Anion gap [Moles/Vol] 10 mmol/L 9 - 17 mmol/L [employer] Calcium [Mass/Vol] 8.9 mg/dL 8.6 - 10. 4 mg/dL [employer] Chloride [Moles/Vol] 95 mmol/L Low 98 - 10 7 mmol/L [employer] CO2 [Moles/Vol] 30 mmol/L 20 - 31 mmol/L [employer] Creatinine [Mass/Vol] 0.53 mg/dL 0.50 - 0.90 mg/dL [employer] GFR/1.73 sq M.predicted MDRD (S/P/Bld) [Vol rate/Area] - PINF [employer] Comment on above: Effective Apr 04, 2022 [...] 101 mg/dL High 70 - 99 mg/dL [facility] Potassium [Moles/Vol] 4.5 mmol/L 3.7 - 5.3 mmol/L [facility] Sodium [Moles/Vol] 135 mmol/L 135 - 144 mmol/L [facility] Urea nitrogen (BldV) [Mass/Vol] 7 mg/dL 6 - 20 mg/dL [facility] CBC with Auto Differentialon 06-30-2022 Absolute Eos # 0.29 [facility] Absolute Immature Granulocyte 0.07 [facility] Absolute Lymph # 2.61 [facility] Absolute [place] # 1.14 [facility] Basophils (Bld) [#/Vol] 0.05 10*3/uL [facility] Basophils/100 WBC (Bld) 0 % 0 - 2 % [facility] Eosinophils/100 WBC (Bld) 3 % 1 - 4 % [facility] Hematocrit (Bld) [Volume fraction] 30.2 % Low 36.3 - 47.1 % [facility] Hemoglobin (Bld) [Mass/Vol] 9.1 g/dL Low 11.9 - 15.1 g/dL [facility] Immature granulocytes/100 WBC (Bld) 1 % High 0 [facility] Interpretation and review of laboratory results Abnormal [facility] Lymphocytes/100 WBC (Bld) 23 % Low 24 - 43 % [facility] MCH (RBC) [Entitic mass] 26.0 pg 25.2 - 33.5 pg [facility] MCHC (RBC) [Mass/Vol] 30.1 g/dL 28.4 - 34.8 g/dL [facility] MCV (RBC) [Entitic vol] 86.3 fL 82.6 - 102.9 fL [facility] Monocytes/100 WBC (Bld) 10 % 3 - 12 % [facility] NRBC Automated 0.0 0.0 per 100 WBC [facility] Platelet distribution width (Bld) [Ratio] 13.4 % 11.8 - 14.4 % [facility] Platelet mean volume (Bld) [Entitic vol] 9.7 fL 8.1 - 13.5 fL [facility] Platelets (Bld) [#/Vol] 296 10*3/uL [facility] RBC (Bld) [#/Vol] 3.50 10*6/uL Low 3.95 - 5.1 1 m/uL [facility] [employer] Segmented neutrophils/100 WBC (Bld) 63 % 36 - 65 % [facility] [employer] Segs Absolute 7.18 [facility] WBC (Bld) [#/Vol] 11.3 10*3/uL [facility] Magnesiumon 06-30-2022 Magnesium [Mass/Vol] 1.9 mg/dL 1.6 - 2 .6 mg/dL [facility] [employer] No Panel Informationon 06-30 Interpretation and review of laboratory results Abnormal [facility] Phosphoruson 06-30-2022 Phosphate [Mass/Vol] 4.8 mg/dL High 2.6 - 4 .5 mg/dL [facility] [employer] VL DUP LOWER EXTREMITY VENOU S BILATERALon 06-30-2022 Radiology Study observation (narrative) [facility] [employer] Work Phone: Basic Metabolic Panelon 06-03 Anion gap [Moles/Vol] 8 mmol/L Low 9 - 17 mmol/L [facility] Calcium [Mass/Vol] 8.4 mg/dL Low 8.6 - 10. 4 mg/dL [facility] Chloride [Moles/Vol] 98 mmol/L 98 - 10 7 mmol/L [facility] [employer] CO2 [Moles/Vol] 28 mmol/L 20 - 31 mmol/L [facility] Creatinine [Mass/Vol] 0.52 mg/dL 0.50 - 0.90 mg/dL [facility] [employer] GFR/1.73 sq M.predicted MDRD (S/P/Bld) [Vol rate/Area] - PINF [facility] Comment on above: Effective Apr 04, 2022 [...] [Mass/Vol] 88 mg/dL 70 - 99 mg/dL [facility] Interpretation and review of laboratory results Abnormal [facility] Potassium [Moles/Vol] 3.9 mmol/L 3.7 - 5.3 mmol/L [facility] Sodium [Moles/Vol] 134 mmol/L Low 135 - 144 mmol/L [facility] Urea nitrogen (BldV) [Mass/Vol] 6 mg/dL 6 - 20 mg/dL [facility] CBC with Auto Differentialon 06-29-2022 Absolute Eos # 0.13 [facility] Absolute Immature Granulocyte 0.09 [facility] Absolute Lymph # 3.01 [facility] Absolute [place] # 1.19 [facility] Basophils (Bld) [#/Vol] 0.07 10*3/uL [facility] Basophils/100 WBC (Bld) 1 % 0 - 2 % [facility] Eosinophils/100 WBC (Bld) 1 % 1 - 4 % [facility] Hematocrit (Bld) [Volume fraction] 30.2 % Low 36.3 - 47.1 % [facility] Hemoglobin (Bld) [Mass/Vol] 9.1 g/dL Low 11.9 - 15.1 g/dL [facility] Immature granulocytes/100 WBC (Bld) 1 % High 0 [facility] Interpretation and review of laboratory results Abnormal [facility] Lymphocytes/100 WBC (Bld) 25 % 24 - 43 % [facility] MCH (RBC) [Entitic mass] 26.6 pg 25.2 - 33.5 pg [facility] MCHC (RBC) [Mass/Vol] 30.1 g/dL 28.4 - 34.8 g/dL [facility] MCV (RBC) [Entitic vol] 88.3 fL 82.6 - 102.9 fL [facility] Monocytes/100 WBC (Bld) 10 % 3 - 12 % [facility] NRBC Automated 0.0 0.0 per 100 WBC [facility] Platelet distribution width (Bld) [Ratio] 13.6 % 11.8 - 14.4 % [facility] Platelet mean volume (Bld) [Entitic vol] 9.7 fL 8.1 - 13.5 fL [facility] Platelets (Bld) [#/Vol] 261 10*3/uL [facility] RBC (Bld) [#/Vol] 3.42 10*6/uL Low 3.95 - 5.1 1 m/uL [facility] Segmented neutrophils/100 WBC (Bld) 62 % 36 - 65 % [facility] Segs Absolute 7.34 [facility] WBC (Bld) [#/Vol] 11.8 10*3/uL High [facility] Magnesiumon 06-29-2022 Magnesium [Mass/Vol] 1.8 mg/dL 1.6 - 2 .6 mg/dL [facility] No Panel Informationon 06-29 [facility] POC Glucose Fingerstickon Glucose [Mass/Vol] 100 mg/dL 65 - 105 mg/dL [facility] Phosphoruson 06-29-2022 Phosphate [Mass/Vol] 3.4 mg/dL 2.6 - 4 .5 mg/dL [facility] Basic Metabolic Panelon 06-03 Anion gap [Moles/Vol] 7 mmol/L Low 9 - 17 mmol/L [facility] Calcium [Mass/Vol] 8.0 mg/dL Low 8.6 - 10. 4 mg/dL [facility] Chloride [Moles/Vol] 99 mmol/L 98 - 10 7 mmol/L [facility] CO2 [Moles/Vol] 28 mmol/L 20 - 31 mmol/L [facility] Creatinine [Mass/Vol] 0.55 mg/dL 0.50 - 0.90 mg/dL [facility] GFR/1.73 sq M.predicted MDRD (S/P/Bld) [Vol rate/Area] - PINF [facility] Comment on above: Effective Apr 04, 2022 [...] 100 mg/dL High 70 - 99 mg/dL [facility] Interpretation and review of laboratory results Abnormal [facility] Potassium [Moles/Vol] 3.7 mmol/L 3.7 - 5.3 mmol/L [facility] Sodium [Moles/Vol] 134 mmol/L Low 135 - 144 mmol/L [facility] Urea nitrogen (BldV) [Mass/Vol] 6 mg/dL 6 - 20 mg/dL [facility] CBC with Auto Differentialon 06-28-2022 Absolute Eos # 0.00 [facility] Absolute Immature Granulocyte 0.00 [facility] Absolute Lymph # 3.54 [facility] Absolute [place] # 0.92 High [facility] Basophils (Bld) [#/Vol] 0.00 10*3/uL [facility] Basophils/100 WBC (Bld) 0 % 0 - 2 % [facility] Eosinophils/100 WBC (Bld) 0 % Low 1 - 4 % [facility] Hematocrit (Bld) [Volume fraction] 29.4 % Low 36.3 - 47.1 % [facility] Hemoglobin (Bld) [Mass/Vol] 9.0 g/dL Low 11.9 - 15.1 g/dL [facility] Immature granulocytes/100 WBC (Bld) 0 % 0 [facility] Interpretation and review of laboratory results Abnormal [facility] Lymphocytes/100 WBC (Bld) 27 % 24 - 44 % [facility] MCH (RBC) [Entitic mass] 26.5 pg 25.2 - 33.5 pg [facility] MCHC (RBC) [Mass/Vol] 30.6 g/dL 28.4 - 34.8 g/dL [facility] MCV (RBC) [Entitic vol] 86.5 fL 82.6 - 102.9 fL [facility] Monocytes/100 WBC (Bld) 7 % 1 - 7 % [facility] Morphology Isaías (Bld) [Interp] Normal [facility] NRBC Automated 0.0 0.0 per 100 WBC [facility] Platelet distribution width (Bld) [Ratio] 13.7 % 11.8 - 14.4 % [facility] Platelet mean volume (Bld) [Entitic vol] 10.1 fL 8.1 - 13.5 fL [facility] Platelets (Bld) [#/Vol] 265 10*3/uL [facility] RBC (Bld) [#/Vol] 3.40 10*6/uL Low 3.95 - 5.1 1 m/uL [facility] Segmented neutrophils/100 WBC (Bld) 66 % 36 - 66 % [facility] Segs Absolute 8.64 High [facility] WBC (Bld) [#/Vol] 13.1 10*3/uL High [facility] Culture, Urineon 06-28-2022 Bacteria identified Cx Nom (U) NO GROWTH [facility] Specimen Description .INDWELLING CATH URINE [facility] EKG 12 LeadOrdered By: Unkno wn Result on 06-28-2022 Atrial Rate 118 BPM [facility] P [place] 54 degrees [facility] P-R Interval 162 ms [facility] Q-T Interval 322 ms [facility] QRS Duration 96 ms [facility] QTc Calculation ([place]rewzett) 451 ms [facility] R [place] 61 degrees [facility] T [place] 29 degrees [facility] Ventricular Rate 118 BPM [facility] EKG 12 Leadon 06-28-2022 Sinus tachycardia Otherwise normal ECG [facility] MUSE Result, Unknown Provider - 06/28/2022 Sinus tachycardia Otherwise normal ECG [facility] Work Phone: Hemoglobin and Hematocriton 06-28-2022 Hematocrit (Bld) [Volume fraction] 29.4 % Low 36.3 - 47.1 % [facility] Hemoglobin (Bld) [Mass/Vol] 9.3 g/dL Low 11.9 - 15.1 g/dL [facility] Interpretation and review of laboratory results Abnormal [facility] Magnesiumon 06-28-2022 Magnesium [Mass/Vol] 1.6 mg/dL 1.6 - 2 .6 mg/dL [facility] No Panel Informationon 06-28 [facility] Phosphoruson 06-28-2022 Phosphate [Mass/Vol] 2.6 mg/dL 2.6 - 4 .5 mg/dL [facility] Basic Metabolic Panelon 06-03 Anion gap [Moles/Vol] 9 mmol/L 9 - 17 mmol/L [facility] Calcium [Mass/Vol] 8.1 mg/dL Low 8.6 - 10. 4 mg/dL [facility] Chloride [Moles/Vol] 101 mmol/L 98 - 10 7 mmol/L [facility] CO2 [Moles/Vol] 26 mmol/L 20 - 31 mmol/L [facility] Creatinine [Mass/Vol] 0.6 mg/dL 0.50 - 0.90 mg/dL [facility] GFR/1.73 sq M.predicted MDRD (S/P/Bld) [Vol rate/Area] - PINF [facility] Comment on above: Effective Apr 04, 2022 [...] [Mass/Vol] 95 mg/dL 70 - 99 mg/dL [facility] Interpretation and review of laboratory results Abnormal [facility] Potassium [Moles/Vol] 3.7 mmol/L 3.7 - 5.3 mmol/L [facility] Sodium [Moles/Vol] 136 mmol/L 135 - 144 mmol/L [facility] Urea nitrogen (BldV) [Mass/Vol] 11 mg/dL 6 - 20 mg/dL [facility] CBC with Auto Differentialon 06-27-2022 Absolute Eos # 0.03 [facility] Absolute Immature Granulocyte 0.08 [facility] Absolute Lymph # 3.26 [facility] Absolute [place] # 1.47 High [facility] Basophils (Bld) [#/Vol] 0.04 10*3/uL [facility] Basophils/100 WBC (Bld) 0 % 0 - 2 % [facility] Eosinophils/100 WBC (Bld) 0 % Low 1 - 4 % [facility] Hematocrit (Bld) [Volume fraction] 33.0 % Low 36.3 - 47.1 % [facility] Hemoglobin (Bld) [Mass/Vol] 9.9 g/dL Low 11.9 - 15.1 g/dL [facility] Immature granulocytes/100 WBC (Bld) 1 % High 0 [facility] Interpretation and review of laboratory results Abnormal [facility] Lymphocytes/100 WBC (Bld) 23 % Low 24 - 43 % [facility] MCH (RBC) [Entitic mass] 26.1 pg 25.2 - 33.5 pg [facility] MCHC (RBC) [Mass/Vol] 30.0 g/dL 28.4 - 34.8 g/dL [facility] MCV (RBC) [Entitic vol] 87.1 fL 82.6 - 102.9 fL [facility] Monocytes/100 WBC (Bld) 10 % 3 - 12 % [facility] NRBC Automated 0.0 0.0 per 100 WBC [facility] Platelet distribution width (Bld) [Ratio] 13.9 % 11.8 - 14.4 % [facility] Platelet mean volume (Bld) [Entitic vol] 9.7 fL 8.1 - 13.5 fL [facility] Platelets (Bld) [#/Vol] 283 10*3/uL [facility] RBC (Bld) [#/Vol] 3.79 10*6/uL Low 3.95 - 5.1 1 m/uL [facility] Segmented neutrophils/100 WBC (Bld) 65 % 36 - 65 % [facility] Segs Absolute 9.21 High [facility] WBC (Bld) [#/Vol] 14.1 10*3/uL High [facility] Hemoglobin and Hematocriton 06-27-2022 Hematocrit (Bld) [Volume fraction] 30.3 % Low 36.3 - 47.1 % [facility] Hemoglobin (Bld) [Mass/Vol] 9.3 g/dL Low 11.9 - 15.1 g/dL [facility] Interpretation and review of laboratory results Abnormal [facility] Hematocrit (Bld) [Volume fraction] 32.0 % Low 36.3 - 47.1 % [facility] Hemoglobin (Bld) [Mass/Vol] 9.9 g/dL Low 11.9 - 15.1 g/dL [facility] Interpretation and review of laboratory results Abnormal [facility] Hematocrit (Bld) [Volume fraction] 38.7 % 36.3 - 47.1 % [facility] Hemoglobin (Bld) [Mass/Vol] 11.9 g/dL 11.9 - 15.1 g/dL [facility] Magnesiumon 06-27-2022 Magnesium [Mass/Vol] 1.8 mg/dL 1.6 - 2 .6 mg/dL [facility] Microscopic Urinalysison Casts UA 5 TO 10 HYALINE Reference range defined for non-centrifuged specimen. [facility] Epithelial Cells UA 2 TO 5 [facility] RBC, UA 2 TO 5 [facility] Comment on above: Reference range defi alexys for non-centrifuged specimen. WBC, UA 2 TO 5 [facility] No Panel Informationon 06-27 [facility] Phosphoruson 06-27-2022 Phosphate [Mass/Vol] 3.1 mg/dL 2.6 - 4 .5 mg/dL [facility] Urinalysison 06-27-2022 Bilirubin Urine Negative NEGATIVE [facility] Color, UA Yellow Yellow [facility] Glucose, Ur Negative NEGATIVE [facility] Interpretation and review of laboratory results Abnormal [facility] Ketones Ql (U) SMALL Abnormal NEGATIVE [facility] Leukocyte esterase Test strip Ql (U) Negative NEGATIVE [facility] Nitrite, Urine Negative NEGATIVE [facility] pH, UA 5.5 5.0 - 8.0 [facility] Protein, UA TRACE Abnormal NEGATIVE [facility] Specific [place], UA 1.026 1.005 - 1.030 [facility] Turbidity UA Clear Clear [facility] Urine Hgb Negative NEGATIVE [facility] Urobilinogen, Urine Normal Normal [facility] BASIC METABOLIC PROFILE Johnathan 06-26-2022 Anion gap [Moles/Vol] 14.4 mmol/L [facility] Calcium [Mass/Vol] 9.9 mg/dL 8.4 - 10. 2 mg/dL [facility] Chloride [Moles/Vol] 103 mmol/L [facility] CO2 [Moles/Vol] 23 mmol/L [facility] Creatinine [Mass/Vol] 0.8 mg/dL 0.4 - 1.1 mg/dL [facility] GFR/1.73 sq M.predicted MDRD (S/P/Bld) [Vol rate/Area] mL/min/{1.73_m2} [facility] Comment on above: Estimated Glomerular filtration Rate Reference Ranges: GFR, mL/min/1.73m2 >= 60 Adequate 30 - 59 Moderately decreased GFR 15 - 29 Severely decreased GFR <18 Kidney failure (or dialysis) GFR calculated using abbreviated MDRD formula. MDRD equation not suitable for patients who are under 18, have unstable creatinine concentrations Glucose [Mass/Vol] 126 mg/dL 70 - 126 mg/dL [facility] Comment on above: Reference Range for FASTING patients is 70-100 mg/dL Interpretation and review of laboratory results Abnormal [facility] Potassium [Moles/Vol] 3.4 mmol/L Low [facility] Sodium [Moles/Vol] 137 mmol/L [facility] Urea nitrogen [Mass/Vol] 11 mg/dL 7 - 22 mg/dL [facility] Basic Metabolic Profile Johnathan 06-26-2022 Anion gap [Moles/Vol] 14.4 mmol/L Normal 10.0-20.0 [facility] Comment on above: Performed By: #### 1 [id number] #### [facility] [address] [place] [address] Calcium [Mass/Vol] 9.9 mg/dL Normal 8.4-10.2 [facility] Comment on above: Performed By: #### 1 [id number] #### [facility] [address] [place] [address] Chloride [Moles/Vol] 103 mmol/L Normal 98-107 [facility] Comment on above: Performed By: #### 1 [id number] #### [facility] [address] [place] [address] CO2 [Moles/Vol] 23 mmol/L Normal 22-31 [facility] Comment on above: Performed By: #### 1 [id number] #### [facility] [address] [place] [address] Creatinine [Mass/Vol] 0.8 mg/dL Normal 0.4-1.1 [facility] Comment on above: Performed By: #### 1 [id number] #### [facility] [address] [place] [address] GFR/1.73 sq M.predicted among non-blacks MDRD (S/P/Bld) [Vol rate/Area] mL/min/{1.73_m2} Normal [facility] Comment on above: Result Comment: Ana mated Glomerular filtration Rate Reference Ranges: GFR, mL/min/1.73m2 >= 60 Adequate 30 - 59 Moderately decreased GFR 15 - 29 Severely decreased GFR <18 Kidney failure (or dialysis) GFR calculated using abbreviated MDRD formula. MDRD equation not suitable for patients who are under 18, have unstable creatinine concentrations Performed By: #### 1 [id number] #### [facility] [address] [place] [address] Glucose [Mass/Vol] 126 mg/dL Normal 70-126 [facility] Comment on above: Result Comment: Refe rence Range for FASTING patients is 70-100 mg/dL Performed By: #### 1 [id number] #### [facility] [address] [place] [address] Potassium [Moles/Vol] 3.4 mmol/L Low 3.5-5.1 [facility] Comment on above: Performed By: #### 1 [id number] #### [facility] [address] [place] [address] Sodium [Moles/Vol] 137 mmol/L Normal 136-145 [facility] Comment on above: Performed By: #### 1 [id number] #### [facility] [address] [place] [address] Urea nitrogen [Mass/Vol] 11 mg/dL Normal 7-22 [facility] Comment on above: Performed By: #### 1 [id number] #### [facility] [address] [place] [address] Blood Gas, Venouson 06-26-20 Carboxyhemoglobin 1.3 % 0 - 5 % [facility] Comment on above: Reference Range: Non-Smokers 0-2% Average Smoker 2-4% Heavy Smoker <10% FIO2 INFORMATION NOT PROVIDED [facility] HCO3 (Bld) [Moles/Vol] 24.3 mmol/L 24 - 30 mmol/L [facility] Negative Base Excess, [place] 1.1 mmol/L 0.0 - 2.0 mmol/L [facility] Oxygen saturation in Blood 66.8 % 60.0 - 85.0 % [facility] pCO2, [place] 45.5 [facility] pH, [place] 7.346 7.320 - 7.420 [facility] CENTERNavera [facility] [employer] pO2, [place] 35.7 [facility] CENTERPrepmatic Pt Temp 37.0 [facility] CBC, EDIF, PLATELETon 2021 Basophils/100 WBC (Bld) 1.0 % 0.0 - 3.0 % [facility] Eosinophils/100 WBC (Bld) 0.0 % 0.0 - 4.0 % [facility] Erythrocyte distribution width (RBC) [Ratio] 13.9 % 11.5 - 14.5 % [facility] Hematocrit (Bld) [Volume fraction] 44.8 % 37.0 - 47.0 % [facility] Hemoglobin (Bld) [Mass/Vol] 14.6 g/dL 12.0 - 16.0 g/dL [facility] Interpretation and review of laboratory results Abnormal [facility] Lymphocytes/100 WBC (Bld) 2.9 % Low 17.6 - 49.6 % [facility] MCH (RBC) [Entitic mass] 26.1 pg Low 28.0 - 32.0 pg [facility] MCHC (RBC) [Mass/Vol] 32.6 g/dL Low 33.0 - 37.0 g/dL [facility] MCV (RBC) [Entitic vol] 80.1 fL Low 81.0 - 99.0 fL [facility] Monocytes/100 WBC (Bld) 2.6 % Low 4.1 - 12.4 % [employer] Neutrophils/100 WBC (Bld) 93.5 % High 39.4 - 72.5 % [employer] Platelets (Bld) [#/Vol] 398 10*3/uL [facility] Platelets LM Ql (Bld) ADEQUATE ADEQUATE [facility] RBC (Bld) [#/Vol] 5.59 10*6/uL [employer] RBC morphology finding Nom (Bld) NORMAL NORMAL [facility] SCAN SLIDE YES NO [facility] WBC (Bld) [#/Vol] 22.7 10*3/uL [employer] [facility] CT CERVICAL SPINE WO DIVYA Jang 06-26-2022 1. Reversal of the cervical lordosis. 2. No acute vertebral body height loss in the cervical spine. [facility] EXAMINATION: CT OF THE CERVICAL [...] There is no prevertebral soft tissue swelling. [facility] Melo Persaud MD - 06/26/2022 [...] body height loss in the cervical spine. [employer] Phone: CT CERVICAL SPINE WO CONTRAS TOrdered By: Melo Persaud on 06-26-2022 [employer] Phone: CT CHEST ABDOMEN PELVIS W CO [...] to be communicated to a licensed caregiver. [facility] EXAMINATION: CT OF [...] unremarkable. No inguinal or pelvic sidewall lymphadenopathy. Peritoneum/Retroperiton eum: Abdominal aorta normal in appearance and caliber. [...] unremarkable. No inguinal or pelvic sidewall lymphadenopathy. Peritoneum/Retroperiton eum: Abdominal aorta normal in appearance and caliber. [...] to be communicated to a licensed caregiver. [employer] Work Phone: [employer] Phone: CT HEAD WO CONTRASTon 2021 1. No acute intracranial abnormality. 2. Mucosal thickening with fluid in the left sphenoid sinus. [facility] EXAMINATION: CT OF THE HEAD [...] of the visualized skull or soft tissues. [facility] Nena Baer MD - 06/26/2022 EXAMINATION: CT OF [...] with fluid in the left sphenoid sinus. 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 [address] Eosinophils/100 WBC (Bld) 0.0 % Normal 0.0-4.0 [facility] Comment on above: Performed By: #### 1 [id number], [id number], [id number] #### [facility] [address] [place] [address] Erythrocyte distribution width (RBC) [Ratio] 13.9 % Normal 11.5-14.5 [facility] Comment on above: Performed By: #### 1 [id number], [id number], [id number] #### [facility] [address] [place] [address] Hematocrit (Bld) [Volume fraction] 44.8 % Normal 37.0-47.0 [facility] Comment on above: Performed By: #### 1 [id number], [id number], [id number] #### [facility] [address] [place] [address] Hemoglobin (Bld) [Mass/Vol] 14.6 g/dL Normal 12.0-16.0 [facility] Comment on above: Performed By: #### 1 [id number], [id number], [id number] #### [facility] [facility] [address] [place] [address] Lymphocytes/100 WBC (Bld) 2.9 % Low 17.6-49.6 [facility] Comment on above: Performed By: #### 1 [id number], , [id number] #### [facility] [address] [place] [address] MCH (RBC) [Entitic mass] 26.1 pg Low 28.0-32.0 [facility] Comment on above: Performed By: #### 1 [id number], , [id number] #### [facility] [address] [place] [address] MCHC (RBC) [Mass/Vol] 32.6 g/dL Low 33.0-37.0 [facility] Comment on above: Performed By: #### 1 [id number], , [id number] #### [facility] [address] [place] [address] MCV (RBC) [Entitic vol] 80.1 fL Low 81.0-99.0 [facility] Comment on above: Performed By: #### 1 [id number], , [id number] #### [place] [facility] [address] [place] [address] Monocytes/100 WBC (Bld) 2.6 % Low 4.1-12.4 [facility] Comment on above: Performed By: #### 1 [id number], , [id number] #### [facility] [address] [place] [address] MORPH NORMAL Normal NORMAL [facility] Comment on above: Performed By: #### 1 [id number], , [id number] #### [facility] [address] [place] [address] Neutrophils/100 WBC (Bld) 93.5 % High 39.4-72.5 [facility] Comment on above: Performed By: #### 1 [id number], , [id number] #### [facility] [address] [place] [address] PLT 398 thou/cumm Normal 130-400 [facility] Comment on above: Performed By: #### 1 [id number], [id number], [id number] #### [facility] [facility] [address] [place] [address] PLTE ADEQUATE Normal ADEQUATE [facility] Comment on above: Performed By: #### 1 404166, [id number], [id number] #### [facility] [address] [place] [address] RBC 5.59 mil/cumm High 4.20-5.40 [facility] Comment on above: Performed By: #### 1 876012, [id number], [id number] #### [facility] [address] [place] [address] SCAN YES Normal NO [facility] Comment on above: Performed By: #### 1 863034, [id number], [id number] #### [facility] [facility] [address] [place] [address] WBC 22.7 thou/cumm High 4.8-10.8 [facility] Comment on above: Performed By: #### 1 825562, [id number], [id number] #### [facility] [address] [place] [address] FLUORO FOR SURGICAL PROCEDUR ESon 06-26-2022 Radiology exam is complete. No Radiologist dictation. Please follow up with ordering provider. [facility] Radiology exam is complete. No Radiologist dictation. Please follow up with ordering provider. [facility] HCG ( test) Qlon BETA HCG (QUAL), SERUM Negative [facility] LACTATE, BLOODon 06-26-2022 Interpretation and review of laboratory results Abnormal [facility] Lactate [Moles/Vol] 4.2 mmol/L Critically high 0.5 - 2.2 mmol/L [facility] Lactic Acidon 06-26-2022 LAC 4.2 mmol/L Critically high 0.5-2.2 [facility] Comment on above: Order Comment: Criti aakash result called to Mayelin Mcclure RN at 02:16 on 06/26/2022 by LINDY Carrera Anne. Results were read back to caller. (LAC) Performed By: #### 1 [id number], [id number] #### [facility] [address] [place] [address] Lamotrigine Levelon 06-26-20 Interpretation and review of laboratory results Abnormal [facility] Lamotrigine Lvl <1.0 Low 3.0 - 15.0 ug/mL [facility] Comment on above: Neither a therapeutic or [...] Multiple measurements of lamotrigine may be needed. [facility] No Panel Informationon 06-26 THORACIC SPINE: 1. [...] SOFT TISSUES: No paraspinal mass is seen. [facility] Melo Persaud MD [...] and mild acute compression deformity of T12. [facility] [employer] Work Phone: [facility] Work Phone: Acute burst fracture of L1 [...] at 3:19 p.m. on June 26, 2022. [facility] EXAMINATION: MRI OF THE THORACIC SPINE [...] remainder of the thoracic and lumbar spine. [facility] Esvin Syed MD - 06/26/2022 EXAMINATION: [...] at 3:19 p.m. on June 26, 2022. [facility] Phone: Radiology Study observation (narrative) [place] Phone: Radiology Study observation (narrative) [facility] Phone: Radiology Study observation (narrative) [employer] Work Phone: [facility] No Panel InformationOrdered By: Esvin Syed on 06-26-2022 [employer] Work Phone: Test, Serumon 06-03 SHCG Negative Normal [facility] Comment on above: Performed By: #### 1 [id number], [id number], [id number] #### [facility] [address] [place] [address] TRAUMA PANELon 06-26-2022 Oscar Test NO SAMPLE RECEIVED [facility] [employer]™ Anion gap [Moles/Vol] 15 mmol/L 9 - 17 mmol/L [facility] [employer] aPTT Coag (Bld) [Time] 24.7 s KAY N [employer] Comment on above: IV Heparin Therapy Range: 48.6-77.8 Blood Bank Specimen BILL FOR SERVICES PERFORMED [employer] Carboxyhemoglobin NO SAMPLE RECEIVED % [employer] Chloride [Moles/Vol] 98 mmol/L 98 - 10 7 mmol/L [employer] CO2 [Moles/Vol] 22 mmol/L 20 - 31 mmol/L [facility] [employer] Creatinine [Mass/Vol] 0.77 mg/dL 0.50 - 0.90 mg/dL [employer] Ethanol [Mass/Vol] mg/dL NINF - 10 mg/dL [facility] Ethanol percent <0.010 NINF - 0.010 % [employer] FIO2 NO SAMPLE RECEIVED [employer] GFR/1.73 sq M.predicted MDRD (S/P/Bld) [Vol rate/Area] - PINF [employer] Comment on above: Effective Apr 04, 2022 [...] 135 mg/dL High 70 - 99 mg/dL [employer] hCG Qual Negative NEGATIVE [facility] Comment on above: Specimens with hCG l evels near the threshold of the test (25 mIU/mL) may give a negative or indeterminate result. In such cases, another test should be performed with a new specimen in 48-72 hours. If early is suspected clinically in this setting, correlation with quantitative serum b-hCG level is suggested. [employer] has confirmed the use of plasma for this test. This has not been cleared or approved by the U.S. Food and Drug Administration. The FDA has determined that such clearance is not necessary. HCO3, Venous NO SAMPLE RECEIVED 24.0 - 30 .0 mmol/L [employer] [facility] Hematocrit (Bld) [Volume fraction] 44.3 % 36.3 - 47.1 % [facility] Hemoglobin (Bld) [Mass/Vol] 14.2 g/dL 11.9 - 15.1 g/dL [employer] [facility] INR Coag (Bld) [Relative time] 1.1 {INR} [employer] [facility] Comment on above: Therapeutic Range: Moderate Anticoagulant Intensity: INR = 2.0-3.0 High Anticoagulant Intensity: INR = 2.5-3.5 Interpretation and review of laboratory results Abnormal [facility] MCH (RBC) [Entitic mass] 26.6 pg 25.2 - 33.5 pg [employer] [facility] [employer] MCHC (RBC) [Mass/Vol] 32.1 g/dL 28.4 - 34.8 g/dL [employer] [facility] MCV (RBC) [Entitic vol] 83.0 fL 82.6 - 102.9 fL [employer] [facility] Methemoglobin NO SAMPLE RECEIVED % [employer] Mode NO SAMPLE RECEIVED [facility] [employer] Negative Base Excess, [place] NO SAMPLE RECEIVED 0.0 - 2.0 mmol/L [employer] [facility] NOTIFICATION NO SAMPLE RECEIVED [employer] [facility] NOTIFICATION TIME NO SAMPLE RECEIVED [employer] [facility] NRBC Automated 0.0 0.0 per 100 WBC [employer] O2 Device/Flow/% NO SAMPLE RECEIVED [employer] [facility] O2 Sat, [place] NO SAMPLE RECEIVED % [facility] [employer] [facility] Oxyhemoglobin NO SAMPLE RECEIVED 95.0 - 9 8.0 % [facility] pCO2, [place] NO SAMPLE RECEIVED [facility] pCO2, [place], Temp Adj NO SAMPLE RECEIVED [facility] Peep/Cpap NO SAMPLE RECEIVED [facility] pH, [place] NO SAMPLE RECEIVED 7.320 - 7.420 [facility] pH, [place], Temp Adj NO SAMPLE RECEIVED 7.32 0 - 7.420 [facility] Platelet distribution width (Bld) [Ratio] 13.8 % 11.8 - 14.4 % [facility] Platelet mean volume (Bld) [Entitic vol] 10.5 fL 8.1 - 13.5 fL [facility] Platelets (Bld) [#/Vol] 393 10*3/uL [facility] pO2, [place] NO SAMPLE RECEIVED [facility] pO2, [place], Temp Adj NO SAMPLE RECEIVED [facility] Positive Base Excess, [place] NO SAMPLE RECEIVED 0.0 - 2.0 mmol/L [employer] Potassium [Moles/Vol] 4.1 mmol/L 3.7 - 5.3 mmol/L [employer] Comment on above: SPECIMEN MODERATELY HEMOLYZED, RESULTS MAY BE ADVERSELY AFFECTED PSV NO SAMPLE RECEIVED [facility] SE [employer] PT Coag (PPP) [Time] 11.5 s [facility] Pt Temp NO SAMPLE RECEIVED [facility] SE [employer] Pt. Position NO SAMPLE RECEIVED [facility] RBC (Bld) [#/Vol] 5.34 10*6/uL High 3.95 - 5.1 1 m/uL [facility] Respiratory Rate NO SAMPLE RECEIVED [facility] [employer] Sample Site NO SAMPLE RECEIVED [facility] S [employer] Set Rate NO SAMPLE RECEIVED [facility] SE [employer] Sodium [Moles/Vol] 135 mmol/L 135 - 144 mmol/L [facility] Text for Respiratory NO SAMPLE RECEIVED [facility] Total Hb NO SAMPLE RECEIVED 12.0 - 16 .0 g/dl [facility] Total Rate NO SAMPLE RECEIVED [facility] [employer]™ Urea nitrogen (BldV) [Mass/Vol] 9 mg/dL 6 - 20 mg/dL [facility] [employer] [place] NO SAMPLE RECEIVED [facility] SO [facility] WBC (Bld) [#/Vol] 24.2 10*3/uL High PHIL S [facility] TROPONINon 06-26-2022 Interpretation and review of laboratory results Abnormal [facility] Troponin High Sensitivity 209.90 ng/L Critically high 0.00 - 15.00 ng/L [facility] Comment on above: Clear elevation of T roponin I, High Sensitivity consistent with myocardial injury or infarction. Interpretation is highly dependent on clinical presentation and patient history. New troponin elevations are concerning and urgent assessment in an emergency department may be indicated in the appropriate clinical context. [facility] TYPE AND SCREENon 06-26-2022 ABO/Rh Positive [facility] Arm Band Number BE [id number] [facility] Expiration Date 06/29/2022,2359 [facility] Troponin-HSon 06-26-2022 TROP-HS 209.90 ng/L Critically high 0.00-15.00 [facility] Comment on above: Order Comment: Criti aakash [...] appropriate clinical context. Performed By: #### 1 [id number], [id number] #### [facility] [place] [address] LAMOTRIGINEon 06-07-2022 Lamotrigine, Serum 3.0 ug/mL Normal 2.0-20.0 [facility] Comment on above: Result Comment: Dete ction Limit = 1.0 Performed By: #### L AMOT #### [facility] [address] [address] [address] Mary Jo Charles PROGESTERONEon 01-13-2022 Progesterone 0.1 ng/mL Normal [facility] Comment on above: Result Comment: Foll icular phase 0.1 - 0.9 Luteal phase 1.8 - 23.9 Ovulation phase 0.1 - 12.0 First trimester 11.0 - 44.3 Second trimester 25.4 - 83.3 Third trimester 58.7 - 214.0 Postmenopausal 0.0 - 0.1 Performed By: #### P BETZAIDA #### [facility] [address] [address] [address] Mary Jo Charles ACETAMINOPHEN LEVELon 2018 Acetaminophen [Mass/Vol] <10 10 - 30 ug/mL [facility] ALCOHOL (ETHANOL),BLOODon Ethanol [Mass/Vol] mg/dL 0 - 10 mg/dL [facility] Comment on above: ETOH: % = MG/DL DIVIDED BY 1000 CBC, EDIF, PLATELETon 2018 Erythrocyte distribution width (RBC) [Ratio] 15.0 % High 11.5 - 14.5 % [employer] Hematocrit (Bld) [Volume fraction] 44.5 % 37 - 47 % [facility] Hemoglobin (Bld) [Mass/Vol] 13.5 g/dL 12 - 16 g/dL [facility] Interpretation and review of laboratory results Abnormal [employer] [facility] MCH (RBC) [Entitic mass] 24.0 pg Low 28 - 32 pg [facility] MCHC (RBC) [Mass/Vol] 30.3 g/dL Low 33 - 37 g/dL [facility] MCV (RBC) [Entitic vol] 79.3 fL Low 81 - 99 fL [facility] Platelets (Bld) [#/Vol] 461 10*3/uL High [facility] Platelets LM Ql (Bld) INCREASED ADEQUATE [facility] RBC (Bld) [#/Vol] 5.61 10*6/uL High [employer] RBC morphology finding Nom (Bld) NORMAL NORMAL [facility] SCAN SLIDE NO NO [facility] WBC corrected for nucl RBC Auto (Bld) [#/Vol] 11.6 High [facility] COMPREHENSIVE METABOLIC PROF ILE Johnathan 10-22-2018 Albumin BCG dye [Mass/Vol] 4.5 g/dL 3.5 - 5 g/dL [facility] Albumin/Globulin [Mass ratio] 1.3 {ratio} [facility] ALP [Catalytic activity/Vol] 87 U/L 38 - 126 U/L [place] [facility] ALT No additional P-5'-P [Catalytic activity/Vol] 123 U/L High 7 - 35 U/L [place] [employer] Anion gap [Moles/Vol] 11.3 mmol/L [facility] AST [Catalytic activity/Vol] 43 U/L High 10 - 42 U/L [place] [facility] Bilirubin [Mass/Vol] 0.7 mg/dL 0.3 - 1 .2 mg/dL [facility] Calcium [Mass/Vol] 9.2 mg/dL 8.4 - 10. 2 mg/dL [place] [facility] Chloride [Moles/Vol] 105 mmol/L [place] [facility] CO2 [Moles/Vol] 25 mmol/L [facility] Creatinine [Mass/Vol] 0.7 mg/dL 0.4 - 1.1 mg/dL [place] [facility] GFR/1.73 sq M.predicted MDRD (S/P/Bld) [Vol rate/Area] mL/min/{1.73_m2} [facility] Comment on above: Estimated Glomerular filtration Rate Reference Ranges: GFR, mL/min/1.73m2 >= 60 Adequate 30 - 59 Moderately decreased GFR 15 - 29 Severely decreased GFR <18 Kidney failure (or dialysis) GFR calculated using abbreviated MDRD formula. MDRD equation not suitable for patients who are under 18, have unstable creatinine concentrations Globulin (S) [Mass/Vol] 3.6 g/dL High 2.9 - 3.3 g/dL [place] [facility] Glucose [Mass/Vol] 114 mg/dL 70 - 126 mg/dL [place] [facility] Potassium [Moles/Vol] 3.3 mmol/L Low [place] [facility] Protein [Mass/Vol] 8.1 g/dL 6.4 - 8.3 g/dL [place] [facility] Sodium [Moles/Vol] 138 mmol/L [facility] Urea nitrogen [Mass/Vol] 8 mg/dL 7 - 22 mg/dL [place] [facility] DRUGS OF ABUSE PROFILE, URIN Hermila 10-22-2018 Acetaminophen+Phenacet in Screen Ql (U) Negative NEG [place] [facility] Amphetamine cutoff Screen (U) [Mass/Vol] Positive NEG [place] [facility] Barbiturate Negative NEG [place] [facility] Benzodiazepines Ql (U) Negative NEG [facility] Cannabinoids Screen Ql (U) Positive NEG [place] [facility] Cocaine Metabolite Negative NEG [facility] Methadone Confirm (Steven) [Mass/Vol] Negative NEG [place] [facility] Methamphetamine Confirm (Steven) [Mass/Vol] Positive NEG [place] [facility] Opiates Ql (U) Negative NEG [place] [facility] Phencyclidine Ql (U) Negative NEG [place] [facility] TRICYCLIC ANTIDEPRESSANTS, URINE Negative NEG [place] [facility] Comment on above: APAP- CUT-OFF CONCEN TRATION [...] Beta HCG ( test) Ql (U) Negative [place] [facility] LITHIUM LEVELon 10-22-2018 Interpretation and review of laboratory results Abnormal [place] [facility] Seagraves [Moles/Vol] mmol/L Low 0.6 - 1. 2 mmol/L [place] [facility] Comment on above: Many variables influ ence therapeutic and toxic ranges; results should be interpreted in conjunction with clinical status of patient. MANUAL DIFFERENTIALon 2018 Band form neutrophils/100 WBC (Bld) 0 % 0 - 4 % [place] [facility] Basophils/100 WBC (Bld) 0 % 0 - 3 % [place] [facility] Blasts/100 WBC (Bld) 0 % 0 - 0 % [facility] Eosinophils/100 WBC (Bld) 0 % 0 - 4 % [facility] Lymphocytes/100 WBC (Bld) 23 % 21 - 51 % [facility] [facility] Metamyelocytes/100 WBC (Bld) 0 % 0 - 0 % [facility] Monocytes/100 WBC (Bld) 6 % 0 - 13 % [place] [facility] Myelocytes/100 WBC (Bld) 0 % 0 - 0 % [facility] Nucleated RBC/100 WBC (Bld) [Ratio] 0 % [facility] Promyelocytes/100 WBC (Bld) 0 % 0 - 0 % [facility] Segmented neutrophils/100 WBC (Bld) 71 % 42 - 75 % [place] [facility] Otheron 10-22-2018 Interpretation and review of laboratory results Abnormal [place] [facility] SALICYLATE LEVELon 9 Salicylates [Mass/Vol] mg/dL Low 10 - 30 mg/dL [place] [facility] TSH W/ FREE T4on 10-22-2018 Free T4 [Mass/Vol] 1.04 ng/dL 0.61 - 1. 12 ng/dL [place] [facility] TSH Qn 0.612 m[IU]/L [place] [facility] U/A WITH MICROSCOPICon 10-22 Bacteria LM Ql (Urine sed) NONE SEEN NONE SEEN [place] [facility] C & S INDICATED NO NO [place] [facility] Casts LM.LPF (Urine sed) [#/Area] NONE SEEN NONE SEEN /lpf [place] [facility] Epithelial cells.squamous LM.HPF (Urine sed) [#/Area] 3-5 NONE SEEN /hpf [place] [facility] Mucus Ql (Urine sed) 1+ THREADS NONE SEEN [place] [facility] RBC LM.HPF (Urine sed) [#/Area] 5-10 NONE SEEN /hpf [place] [facility] Unidentified crystals LM Ql (Urine sed) NONE SEEN NONE SEEN [place] [facility] WBC LM.HPF (Urine sed) [#/Area] 0-2 [place] [facility] URINALYSIS WITH REFLEX CULTU REon 10-22-2018 Appearance (U) SL CLOUDY CLEAR [facility] BILIRUBIN, URINE DIPSTICK MODERATE NEGATIVE [place] [facility] BLOOD, URINE DIPSTICK MODERATE NEGATIVE [place] [facility] Color (U) YELLOW YELLOW [place] [facility] GLUCOSE, URINE DIPSTICK Negative NEGATIVE mg/dL [place] [facility] KETONES, URINE DIPSTICK 15 mg/dL NEGATIVE [place] [facility] LEUKOCYTE ESTERASE, URINE DIPSTK Negative NEGATIVE [place] [facility] Microscopic observation LM Nom (Urine sed) YES NO [facility] Nitrate Ql (U) Negative NEGATIVE [place] [facility] PH, URINE DIPSTICK 6.0 [facility] Protein (U) [Mass/Vol] 30 mg/dL NEGATIVE [facility] SPECIFIC GRAVITY, URINE DIPSTICK 1.025 [place] [facility] UROBILINOGEN, URINE DIPSTICK 1.0 [facility] Wound cult/smear, aeron 12-3 INR [...] Tetracycline <=4 S Ticarcillin/K Clavulanate <=16 S Trimethoprim/Sulfametho xazole <=2/38 S Normal [facility] Comment on above: Order Comment: CHARLEY BUCKLEY INCISION CULTUREAdditional Instructions INCISION CULTURE Performed By: #### L 800.0100, L800.0300, L800.0400, L800.4806 ####Main Laboratory ([facility])[address], [place] [phone] Nivar, MD Wound cult/smear, aeron -0 Wound cult/smear, aer Gram stain result No WBC's seen Rare Gram positive cocci in pairs No pathogens isolated, normal skin tobias present. Normal [facility] Comment on above: Order Comment: INCIS IONAL INFECTION UNSPECIFIED BODY REGIONAdditional Instructions INCISIONAL INFECTION UNSPECIFIED BODY REGION Performed By: #### L 800.0100, L800.0300, L800.0400, L800.4806 ####Main Laboratory ([facility])[address], [place] [phone] Nivar, MD Anesthesia Post-Op Evaluatio non 06-04-2018 Anesthesia Post-Op Evaluation [facility] Medical Records Patient: KAYLEEN KOVACS [address] : 1995 [place], [place] [address] Location: OB [phone] Unit #: [id number] Anesthesia Post-Op Evaluation Barbara Gu[place] [employer] COM[employer]ION ANALYST Service Dt/Tm: 05/31/18 09 Anesthesia Post Inpatient Eval Blood Pressure: 132/84 [...] Pt converted to oral pain meds from [employer]. Pt states she is feeling much better. Entered by: Barbara Guzman CRNA on 05/31/18934 Report Signed by: Barbara Guzman CRNA on 05/31/1837 < > Co-Signed by: Troy Kelley MD on 06/04/18 0934 < > Normal [facility] Prog Not hermila 06-04-2018 Prog Note [facility] Medical Records Patient: KAYLEEN KOVACS [address] : 1995 [place], [place] [address] Location: OB [phone] Unit #: [id number] Prog Note Lenora Peña [facility] Service Dt/Tm: 05/31/18 181 - Subjective Patient doing well. Pain not [...] post section. Day 1. 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 Get out of bed. Shower. D/C [place]. Supportive care, walking, pain medications, observation for bleeding. Entered by: Lenora Peña CNM on 05/31/181809 Report Signed by: Lenora Peña CNM on 05/31/181811 < > Co-Signed by: Audrey Rao MD on 06/04/18 0647 < > Normal [facility] CBC with Differentialon 05-04 Abs Baso Count 0 /cmm Normal 0-200 [facility] Comment on above: Performed By: #### L 800.0100, L800.0300, L800.0400, L800.4806 ####Main Laboratory ([facility])[address], [place] [phone] Nivar, MD Abs Eos Count 0 /cmm Normal 0-500 [facility] Comment on above: Performed By: #### L 800.0100, L800.0300, L800.0400, L800.4806 ####Main Laboratory ([facility])[address], [place] [phone] Nivar, MD Abs Weakley Count 1200 /cmm High 0-800 [facility] Comment on above: Performed By: #### L 800.0100, L800.0300, L800.0400, L800.4806 ####Main Laboratory ([facility])[address], [place] [phone] Nivar, MD Abs Neut Count 07131 /cmm High 8409-2255 [facility] Comment on above: Performed By: #### L 800.0100, L800.0300, L800.0400, L800.4806 ####Main Laboratory ([facility])[address], [place] [phone] Nivar, MD Basophils Auto #/vol (Bld) 0.2 % Normal 0-2 [facility] Comment on above: Performed By: #### L 800.0100, L800.0300, L800.0400, L800.4806 ####[facility] Laboratory ([facility])[address] [place], [place] [phone] Nivar, MD EOS-Auto Diff 0.2 % Normal 0-6 [facility] Comment on above: Performed By: #### L 800.0100, L800.0300, L800.0400, L800.4806 ####Main Laboratory ([facility])[address], [place] [phone] Nivar, MD Erythrocyte distribution width Auto Ratio (RBC) 13.5 % Normal 12.0-16.0 [facility] Comment on above: Performed By: #### L 800.0100, L800.0300, L800.0400, L800.4806 ####Main Laboratory ([facility])[address] [place], [place] [phone] Nivar, MD Hematocrit Auto Volume Fraction (Bld) 32.0 % Low 35.0-44.0 [facility] Comment on above: Performed By: #### L 800.0100, L800.0300, L800.0400, L800.4806 ####Main Laboratory ([facility])[address], [place] [phone] Nivar, MD Hemoglobin mass conc (Bld) 10.3 g/dL Low 12.0-15.0 [facility] Comment on above: Performed By: #### L 800.0100, L800.0300, L800.0400, L800.4806 ####Main Laboratory ([facility])[address] [place] [phone] Nivar, MD Hypochromasia 1+ Normal [facility] Comment on above: Performed By: #### L 800.0100, L800.0300, L800.0400, L800.4806 ####Main Laboratory ([facility])[address], [place] [phone] Nivar, MD Lymphocytes Auto #/vol (Bld) 1700 /cmm Normal 0348-3826 [facility] Comment on above: Performed By: #### L 800.0100, L800.0300, L800.0400, L800.4806 ####Main Laboratory ([facility])[address] [place], [place] [phone] Nivar, MD Lymphocytes/100 WBC Auto (Bld) 10.4 % Low 15-45 [facility] Comment on above: Performed By: #### L 800.0100, L800.0300, L800.0400, L800.4806 ####Main Laboratory ([facility])[address], [place] [phone] Nivar, MD MCH Auto Entitic mass (RBC) 26.4 pg Low 27.5-33.0 [facility] Comment on above: Performed By: #### L 800.0100, L800.0300, L800.0400, L800.4806 ####Main Laboratory ([facility])[address], [place] [phone] Nivar, MD MCHC Auto mass conc (RBC) 32.3 g/dL Low 33.0-36.0 [facility] Comment on above: Performed By: #### L 800.0100, L800.0300, L800.0400, L800.4806 ####Main Laboratory ([facility])[address], [place] [phone] Nivar, MD MCV Auto Entitic volume (RBC) 81.7 CU EHSAN Normal 80-97 [facility] Comment on above: Performed By: #### L 800.0100, L800.0300, L800.0400, L800.4806 ####Main Laboratory ([facility])[address], [place] [phone] Nivar, MD Weakley- Auto Diff 7.4 % Normal 2-10 [facility] Comment on above: Performed By: #### L 800.0100, L800.0300, L800.0400, L800.4806 ####Main Laboratory ([facility])[address], [place] [phone] Nivar, MD Neut-Auto Diff 81.8 % High 40-70 [facility] Comment on above: Performed By: #### L 800.0100, L800.0300, L800.0400, L800.4806 ####Main Laboratory ([facility])[address], [place] [phone] Nivar, MD NRBC-Auto 0.1 /100 WBC Normal <1 [facility] Comment on above: Performed By: #### L 800.0100, L800.0300, L800.0400, L800.4806 ####Main Laboratory ([facility])[address], [place] [phone] Nivar, MD Platelets Auto #/vol (Bld) 302 th/cmm Normal 150-400 [facility] Comment on above: Performed By: #### L 800.0100, L800.0300, L800.0400, L800.4806 ####Main Laboratory ([facility])[address], [place] [phone] Nivar, MD RBC Auto #/vol (Bld) 3.92 mil/cmm Low 4.00-5.10 [facility] Comment on above: Performed By: #### L 800.0100, L800.0300, L800.0400, L800.4806 ####Main Laboratory ([facility])[address], [place] [phone] Nivar, MD WBC Auto #/vol (Bld) 16.8 th/cmm High 4.4-10.5 [facility] Comment on above: Performed By: #### L 800.0100, L800.0300, L800.0400, L800.4806 ####Main Laboratory ([facility])[address], [place] [phone] Nivar, MD MRSA Screen,Nasal Rapidon Nasal MRSA Screen Negative Normal Negative [facility] Comment on above: Result Comment: Meth odology: Nucleic Acid Amplification (Polymerase Chain Reaction,PCR) Performed By: #### L 800.0100, L800.0300, L800.0400, L800.4806 ####Main Laboratory ([facility])[address] [place], [place] [phone] Nivar, MD Procedure Note - Generalon 1 07-31-2017 Protein mass conc [facility] Medical Records Patient: KAYLEEN KOVACS [address] : 1995 [place], [place] [address] Location: OB [phone] Unit #: [id number] Procedure Note - General Audrey Rao ([facility]) Service Dt/Tm: 05/30/18 2300 PRE-OP [...] Entered by: Audrey Rao MD (LMA) on 05/30/182299 Report Signed by: Audrey Rao MD on 05/30/182307 < > Co-Signed by: on Normal [facility] APTTon 05-30-2018 aPTT Coag time (Bld) 25.9 Sec Normal 23.0-38.0 [facility] Comment on above: Order Comment: Is Pa tient receiving Heparin? No Result Comment: APTT of 50.5 to 78.0 secondsrepresents therapeutic rangefor heparin (unfractionated) [facility].This corresponds to a heparinconcentration of 0.3 to 0.7 IU/ml. Performed By: #### L 800.0100, L800.0300, L800.0400, L800.4806 ####Main Laboratory ([facility])[address], [place] [phone] Nivar, MD History and Physicalon 05-30 History and Physical [facility] Medical Records Patient: KAYLEEN KOVACS [address] : 1995 [place], [place] [address] Location: OB [phone] Unit #: [id number] History and Physical Audrey Rao ([facility]) Service Date: 05/30/18 22 YO @ 39 [...] 05/30/182108 < > Co-Signed by: on Normal [facility] Nonstress Test Reporton 05-04 Nonstress Test Report [facility] Medical Records Patient: KAYLEEN KOVACS [address] : 1995 [place], [place] [address] Location: OBOP [phone] Unit #: [id number] Nonstress Test Report Audrey Rao MD (LMA) [...] 05/29/182313 < > Co-Signed by: on Normal [facility] Prog Note - H&P Update Stamp on 05-30-2018 Protein mass conc [facility] Medical Records Patient: KAYLEEN KOVACS [address] : 1995 [place], [place] [address] Location: OB [phone] Unit #: [id number] Prog Note - HANDP Update Stamp oJcelyn Bowen CNM Service Dt/Tm: 05/30/18922 - HANDP dictated by Medical Staff Member Patient examined, Chart Reviewed: HANDP updated with the following information - Pt. is here for Induction of labor gestational hypertension at 39 completed weeks gestation. No severe features. Entered by: Jocelyn Bowen CNM on 05/30/18922 Report Signed by: Jocelyn Bowen CNM on 05/30/18925 < > Co-Signed by: on Normal [facility] Progress Note Obstetricson 1 07-30-2017 Protein mass conc [facility] Medical Records Patient: KAYLEEN KOVACS [address] : 1995 [place] [address] Location: [facility] [phone] Unit #: [id number] Progress Note Obstetrics Jocelyn Bowen CNM Service [...] 1,000 mls @ 0 mls/hr IV BOLUS [facility] Stop: 05/30/18 23:59 Ropivacaine 12 ml/ Fentanyl Citrate 150 mcg/ Sodium Chloride 60 mls @ 0 mls/hr EPID DIRECTED [facility] Stop: 09/06/18 05:31 Last Admin: 05/30/18 13:00 [...] 1507 < > Co-Signed by: on Normal [facility] Protein mass conc [facility] Medical Records Patient: KAYLEEN KOVACS [address] : 1995 [place] [address] Location: [phone] Unit #: [id number] Progress Note Obstetrics Jocelyn Bowen CNM Service Dt/Tm: 05/30/18 09 ADDENDUM: IUPC placed after AROM clear fluid. [...] 1,000 mls @ 0 mls/hr IV BOLUS [facility] Stop: 05/30/18 23:59 Ropivacaine 12 ml/ Fentanyl Citrate 150 mcg/ Sodium Chloride 60 mls @ 0 mls/hr EPID DIRECTED [facility] Stop: 09/06/18 05:31 Last Admin: 05/30/18 08:20 Dose: 12 mls/hr Penicillin G Potassium 2.5 mu/ (Sodium Chloride) 100 mls @ 100 mls/hr IVPB Q4H [facility] Stop: 06/06/18 10:01 Methylergonovine Maleate (Methergine [...] 05/30/18930 < > Co-Signed by: on Normal [facility] Prothrombin Timeon 8 INR Coag RelTime (PPP) 1.01 {INR} Normal 0.9-1.2 [facility] Comment on above: Order Comment: Is Pa tient receiving Heparin? No Result Comment: Grover dard dose INR: 2.0-3.0High dose INR: 2.5-3.5 Performed By: #### L 800.0100, L800.0300, L800.0400, L800.4806 ####Main Laboratory ([facility])[address], [place] [phone] Nivar, MD Prothrombin time (PT) Coag time (PPP) 11.6 Sec Normal 9.6-13.3 [facility] Comment on above: Order Comment: Is Pa tient receiving Heparin? No Performed By: #### L 800.0100, L800.0300, L800.0400, L800.4806 ####Main Laboratory ([facility])[address], [place] [phone] Nivar, MD Status Note/Updateon 018 Status Note/Update [facility] Medical Records Patient: KAYLEEN KOVACS [address] : 1995 [place], [place] [address] Location: [facility] [phone] Unit #: [id number] Status Note/Update Jocelyn Bowen [facility] Service Dt/Tm: 05/30/18 1850 Note: KAYLEEN KOVACS is a 22 yr [...] on 05/30/181901 < > Co-Signed by: on [facility] Type and Screen(No Crossmatc h)on 05-30-2018 AB Screen (IAT) Negative Normal [facility] Comment on above: Performed By: #### L 800.0100, L800.0300, L800.0400, L800.4806 ####Main Laboratory ([facility])[address], [place] [phone] Nivar, MD ABO and Rh group Nom (Bld) O Positive Normal [facility] Comment on above: Performed By: #### L 800.0100, L800.0300, L800.0400, L800.4806 ####Main Laboratory ([facility])[address] [phone] Nivar, MD APTTon 05-29-2018 aPTT Coag time (Bld) 26.0 Sec Normal 23.0-38.0 [facility] Comment on above: Order Comment: Is Pa tient receiving Heparin? No Result Comment: APTT of 50.5 to 78.0 secondsrepresents therapeutic rangefor heparin (unfractionated) [facility].This corresponds to a heparinconcentration of 0.3 to 0.7 IU/ml. Performed By: #### L 800.0100, L800.0300, L800.0400, L800.4806 ####Main Laboratory ([facility])[address], [place] [phone] Nivar, MD Blood Urea Nitrogenon 2017 Urea nitrogen mass conc 5 mg/dL Low 7-20 [facility] Comment on above: Performed By: #### L 800.0100, L800.0300, L800.0400, L800.4806 ####Main Laboratory ([facility])[address], [place] [phone] Nivar, MD CBC with Differentialon 05-04 Abs Baso Count 200 /cmm Normal 0-200 [facility] Comment on above: Performed By: #### L 800.0100, L800.0300, L800.0400, L800.4806 ####Main Laboratory ([facility])[address], [place] [phone] Nivar, MD Abs Eos Count 100 /cmm Normal 0-500 [facility] Comment on above: Performed By: #### L 800.0100, L800.0300, L800.0400, L800.4806 ####Main Laboratory ([facility])[address], [place] [phone] Nivar, MD Abs Weakley Count 900 /cmm High 0-800 [facility] Comment on above: Performed By: #### L 800.0100, L800.0300, L800.0400, L800.4806 ####Main Laboratory ([facility])[address], [place] [phone] Nivar, MD Abs Neut Count 9900 /cmm High 9389-8721 [facility] Comment on above: Performed By: #### L 800.0100, L800.0300, L800.0400, L800.4806 ####Main Laboratory ([facility])[address], [place] [phone] Nivar, MD Basophils Auto #/vol (Bld) 1.2 % Normal 0-2 [facility] Comment on above: Performed By: #### L 800.0100, L800.0300, L800.0400, L800.4806 ####Main Laboratory ([facility])[address], [place] [phone] Nivar, MD EOS-Auto Diff 0.7 % Normal 0-6 [facility] Comment on above: Performed By: #### L 800.0100, L800.0300, L800.0400, L800.4806 ####Main Laboratory ([facility])[address], [place] [phone] Nivar, MD Erythrocyte distribution width Auto Ratio (RBC) 13.7 % Normal 12.0-16.0 [facility] Comment on above: Performed By: #### L 800.0100, L800.0300, L800.0400, L800.4806 ####Main Laboratory ([facility])[address], [place] [phone] Nivar, MD Hematocrit Auto Volume Fraction (Bld) 36.6 % Normal 35.0-44.0 [facility] Comment on above: Performed By: #### L 800.0100, L800.0300, L800.0400, L800.4806 ####Main Laboratory ([facility])[address] [place], [place] [phone] Nivar, MD Hemoglobin mass conc (Bld) 12.1 g/dL Normal 12.0-15.0 [facility] Comment on above: Performed By: #### L 800.0100, L800.0300, L800.0400, L800.4806 ####Main Laboratory ([facility])[address], [place] [phone] Nivar, MD Lymphocytes Auto #/vol (Bld) 1900 /cmm Normal 1754-9057 [facility] Comment on above: Performed By: #### L 800.0100, L800.0300, L800.0400, L800.4806 ####Main Laboratory ([facility])[address], [place] [phone] Nivar, MD Lymphocytes/100 WBC Auto (Bld) 14.4 % Low 15-45 [facility] Comment on above: Performed By: #### L 800.0100, L800.0300, L800.0400, L800.4806 ####Main Laboratory ([facility])[address], [place] [phone] Nivar, MD MCH Auto Entitic mass (RBC) 27.0 pg Low 27.5-33.0 [facility] Comment on above: Performed By: #### L 800.0100, L800.0300, L800.0400, L800.4806 ####Main Laboratory ([facility])[address], [place] [phone] Nivar, MD MCHC Auto mass conc (RBC) 33.2 g/dL Normal 33.0-36.0 [facility] Comment on above: Performed By: #### L 800.0100, L800.0300, L800.0400, L800.4806 ####Main Laboratory ([facility])[address] [place] [phone] Nivar, MD MCV Auto Entitic volume (RBC) 81.4 CU EHSAN Normal 80-97 [facility] Comment on above: Performed By: #### L 800.0100, L800.0300, L800.0400, L800.4806 ####Main Laboratory ([facility])[address], [place] [phone] Nivar, MD Weakley- Auto Diff 6.7 % Normal 2-10 [facility] Comment on above: Performed By: #### L 800.0100, L800.0300, L800.0400, L800.4806 ####Main Laboratory ([facility])[address], [place] [phone] Nivar, MD Neut-Auto Diff 77.0 % High 40-70 [facility] Comment on above: Performed By: #### L 800.0100, L800.0300, L800.0400, L800.4806 ####Main Laboratory ([facility])[address], [place] [phone] Nivar, MD NRBC-Auto 0.1 /100 WBC Normal <1 [facility] Comment on above: Performed By: #### L 800.0100, L800.0300, L800.0400, L800.4806 ####Main Laboratory ([facility])[address], [place] [phone] Nivar, MD Platelets Auto #/vol (Bld) 344 th/cmm Normal 150-400 [facility] Comment on above: Performed By: #### L 800.0100, L800.0300, L800.0400, L800.4806 ####Main Laboratory ([facility])[address], [place] [phone] Nivar, MD RBC Auto #/vol (Bld) 4.50 mil/cmm Normal 4.00-5.10 [facility] Comment on above: Performed By: #### L 800.0100, L800.0300, L800.0400, L800.4806 ####Main Laboratory ([facility])[address], [place] [phone] Nivar, MD WBC Auto #/vol (Bld) 12.9 th/cmm High 4.4-10.5 [facility] Comment on above: Performed By: #### L 800.0100, L800.0300, L800.0400, L800.4806 ####Main Laboratory ([facility])[address] [place] [phone] Nivar, MD Creatinineon 05-29-2018 Creatinine mass conc 0.45 mg/dL Low 0.60-1.30 [facility] Comment on above: Performed By: #### L 800.0100, L800.0300, L800.0400, L800.4806 ####Main Laboratory ([facility])[address] [place] [phone] Nivar, MD GFR/1.73 sq M predicted among non-blacks MDRD vol rate/area (S/P/Bld) mL/min/{1.73_m2} Normal [facility] Comment on above: Result Comment: 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 Height and weight are not factored. Performed By: #### L 800.0100, L800.0300, L800.0400, L800.4806 ####Main Laboratory ([facility])[address] [place] [phone] Nivar, MD Drug Screen Urineon 05-29-20 18 Amphetamines Negative Normal Negative [facility] Comment on above: Performed By: #### L 800.0100, L800.0300, L800.0400, L800.4806 ####Main Laboratory ([facility])[address] [place] [phone] Nivar, MD Barbiturates Negative Normal Negative [facility] Comment on above: Performed By: #### L 800.0100, L800.0300, L800.0400, L800.4806 ####Main Laboratory ([facility])[address], [place] [phone] Nivar, MD Benzodiazepines Negative Normal Negative [facility] Comment on above: Performed By: #### L 800.0100, L800.0300, L800.0400, L800.4806 ####Main Laboratory ([facility])[address], [place] [phone] Nivar, MD Cannabinoids Negative Normal Negative [facility] Comment on above: Performed By: #### L 800.0100, L800.0300, L800.0400, L800.4806 ####Main Laboratory ([facility])[address], [place] [phone] Nivar, MD Cocaine Negative Normal Negative [facility] Comment on above: Performed By: #### L 800.0100, L800.0300, L800.0400, L800.4806 ####Main Laboratory ([facility])[address], [place] [phone] Nivar, MD Opiates Negative Normal Negative [facility] Comment on above: Performed By: #### L 800.0100, L800.0300, L800.0400, L800.4806 ####Main Laboratory ([facility])[address] [place], [place] [phone] Nivar, MD Phencyclidine Negative Normal Negative [facility] Comment on above: Performed By: #### L 800.0100, L800.0300, L800.0400, L800.4806 ####Main Laboratory ([facility])[address], [place] [phone] Nivar, MD Oxycodone Negative Normal Negative [facility] Comment on above: Performed By: #### L 800.0100, L800.0300, L800.0400, L800.4806 ####Main Laboratory ([facility])[address], [place] [phone] Nivar, MD Comment Normal [facility] Comment on above: Result Comment: This drug of abuse screen is not intended for employmentrelated testing and is intended for use in clinicalmanagement of patients. Cut-off Concentrations for Positive ResultsPhencyclidine 25 ng/mLBenzodiazepines 200 ng/mLCocaine 300 ng/mLAmphetamines 1000 ng/mLCannabinoids 100 ng/mLOpiates 300 ng/mLBarbiturates 200 ng/mLOxycodone 100 ng/mL Performed By: #### L 800.0100, L800.0300, L800.0400, L800.4806 ####Main Laboratory ([facility])[address], [place] [phone] Nivar, MD Fibrinogenon 05-29-2018 Fibrinogen 700 mg/dL High 200-400 [facility] Comment on above: Order Comment: Is Marisel pate receiving Heparin? No Performed By: #### L 800.0100, L800.0300, L800.0400, L800.4806 ####[facility] ([facility])[address], [place] [phone] Nivar, MD Hepatic Function Panel (Live r)on 05-29-2018 Albumin mass conc 3.3 g/dL Low 3.5-5.0 [facility] Comment on above: Performed By: #### L 800.0100, L800.0300, L800.0400, L800.4806 ####Main Laboratory ([facility])[address], [place] [phone] Nivar, MD Alk Phos 119 IU/L High 39-118 [facility] Comment on above: Performed By: #### L 800.0100, L800.0300, L800.0400, L800.4806 ####Main Laboratory ([facility])[address], [place] [phone] Nivar, MD ALT/SGPT 15 IU/L Normal 10-40 [facility] Comment on above: Performed By: #### L 800.0100, L800.0300, L800.0400, L800.4806 ####Main Laboratory ([facility])[address], [place] [phone] Nivar, MD AST/SGOT 18 IU/L Normal 15-41 [facility] Comment on above: Performed By: #### L 800.0100, L800.0300, L800.0400, L800.4806 ####[facility] ([facility])[address], [place] [phone] Nivar, MD Bili,Direct < 0.1 Low 0.1-0.2 [facility] Comment on above: Performed By: #### L 800.0100, L800.0300, L800.0400, L800.4806 ####[facility] ([facility])[address], [place] [phone] Nivar, MD Bili,Total 0.2 mg/dL Invalid Interpretation Code 0.2-1.0 [facility] Comment on above: Result Comment: Delt a: < 0.1 on 05/01/18 Performed By: #### L 800.0100, L800.0300, L800.0400, L800.4806 ####Main Laboratory ([facility])[address], [place] [phone] Nivar, MD Protein mass conc 6.0 g/dL Low 6.2-8.0 [facility] Comment on above: Performed By: #### L 800.0100, L800.0300, L800.0400, L800.4806 ####[facility] ([facility])[address], [place] [phone] Nivar, MD LDHon 05-29-2018 LDH 96 iu/l Low 98-192 [facility] Comment on above: Performed By: #### L 800.0100, L800.0300, L800.0400, L800.4806 ####[facility] ([facility])[address] [place], [place] [phone] Nivar, MD Prothrombin Timeon 8 INR Coag RelTime (PPP) 0.97 {INR} Normal 0.9-1.2 [facility] Comment on above: Order Comment: Is Pa tient receiving Heparin? No Result Comment: Grover dard dose INR: 2.0-3.0High dose INR: 2.5-3.5 Performed By: #### L 800.0100, L800.0300, L800.0400, L800.4806 ####Main Laboratory ([facility])[address] [place] [phone] Nivar, MD Prothrombin time (PT) Coag time (PPP) 11.2 Sec Normal 9.6-13.3 [facility] Comment on above: Order Comment: Is Pa tient receiving Heparin? No Performed By: #### L 800.0100, L800.0300, L800.0400, L800.4806 ####[facility] ([facility])[address] [place], [place] [phone] Nivar, MD Uric Acidon 05-29-2018 Urate mass conc 4.9 mg/dL Normal 2.6-8.0 [facility] Comment on above: Performed By: #### L 800.0100, L800.0300, L800.0400, L800.4806 ####Main [facility] ([facility])[address] [place], [place] [phone] Nivar, MD Urine Protein/Creatinine Rat ioon 05-29-2018 Creatinine mass conc (U) 189.6 mg/dL Normal [facility] Comment on above: Performed By: #### L 800.0100, L800.0300, L800.0400, L800.4806 ####[facility] ([facility])[address], [place] [phone] Nivar, MD Total Protein, Random Urine 24.0 mg/dL Normal [facility] Comment on above: Performed By: #### L 800.0100, L800.0300, L800.0400, L800.4806 ####Main Laboratory ([facility])[address], [place] [phone] Nivar, MD Urine Protein/Creatinine Ratio 0.1 g/1.73m2 Normal <0.15 [facility] Comment on above: Performed By: #### L 800.0100, L800.0300, L800.0400, L800.4806 ####Main Laboratory ([facility])[address], [place] [phone] Nivar, MD Nonstress Test Reporton 05-04 Nonstress Test Report [facility] Medical Records Patient: KAYLEEN KOVACS [address] : 1995 [place], [place] [address] Location: [facility] [phone] Unit #: [id number] Nonstress Test Report Kitty Vazquez MD SUBJECTIVE: [...] 1247 < > Co-Signed by: on Normal [facility] Urine culture, reflexon 05-03 Urine culture, reflex No growth(<10,000 CFU/ml)of urinary tract pathogens. Tobias present are not the usual etiologic agents of a urinary tract infection and probably represent vaginal,urethral, or skin tobias. Contact Microbiology at extension [phone] if further information is needed. ORGANISM 1: Mixed tobias- 3 species presentColony count >100,000 CFU/ml Normal [facility] Comment on above: Performed By: #### L 800.0100, L800.0300, L800.0400, L800.4806 ####[facility] ([facility])[address], [place] [phone] Nivar, MD Bilirubin,Directon 8 Bili,Direct < 0.1 Low 0.1-0.2 [facility] Comment on above: Performed By: #### L 800.0100, L800.0300, L800.0400, L800.4806 ####[facility] ([facility])[address], [place] [phone] Nivar, MD CBC with Differentialon 05-03 Abs Baso Count 100 /cmm Normal 0-200 [facility] Comment on above: Performed By: #### L 404.6700 ####[facility] ([facility])[address], [place] [phone] Nivar, MD Abs Eos Count 100 /cmm Normal 0-500 [facility] Comment on above: Performed By: #### L 404.6700 ####[facility] ([facility])[address], [place] [phone] Nivar, MD Abs Weakley Count 900 /cmm High 0-800 [facility] Comment on above: Performed By: #### L 404.6700 ####[facility] ([facility])[address] [phone] Nivar, MD Abs Neut Count 51153 /cmm High 8916-9555 [facility] Comment on above: Performed By: #### L 404.0 ####[facility] ([facility])[address], [place] [phone] Nivar, MD Basophils Auto #/vol (Bld) 0.5 % Normal 0-2 [facility] Comment on above: Performed By: #### L 404.0 ####[facility] ([facility])[address], [place] [phone] Nivar, MD EOS-Auto Diff 0.8 % Normal 0-6 [facility] Comment on above: Performed By: #### L 404.0 ####[facility] ([facility])[address] [phone] Nivar, MD Erythrocyte distribution width Auto Ratio (RBC) 13.3 % Normal 12.0-16.0 [facility] Comment on above: Performed By: #### L 404.6700 ####[facility] ([facility])[address] [phone] Nivar, MD Hematocrit Auto Volume Fraction (Bld) 37.3 % Normal 35.0-44.0 [facility] Comment on above: Performed By: #### L 404.0 ####[facility] ([facility])[address] [phone] Nivar, MD Hemoglobin mass conc (Bld) 12.3 g/dL Normal 12.0-15.0 [facility] Comment on above: Performed By: #### L 404.0 ####[facility] ([facility])[address], [place] [phone] Nivar, MD Hypochromasia 1+ Normal [facility] Comment on above: Performed By: #### L 404.6700 ####[facility] ([facility])[address] [place], [place] [phone] Nivar, MD Lymphocytes Auto #/vol (Bld) 1600 /cmm Normal 2464-6073 [facility] Comment on above: Performed By: #### L 404.6700 ####[facility] ([facility])[address] [place], [place] [phone] Nivar, MD Lymphocytes/100 WBC Auto (Bld) 12.0 % Low 15-45 [facility] Comment on above: Performed By: #### L 404.0 ####[facility] ([facility])[address] [place] [phone] Nivar, MD MCH Auto Entitic mass (RBC) 26.9 pg Low 27.5-33.0 [facility] Comment on above: Performed By: #### L 404.6700 ####[facility] ([facility])[address] [place] [phone] Nivar, MD MCHC Auto mass conc (RBC) 32.9 g/dL Low 33.0-36.0 [facility] Comment on above: Performed By: #### L 404.6700 ####[facility] ([facility])[address] [place], [place] [phone] Nivar, MD MCV Auto Entitic volume (RBC) 81.6 CU EHSAN Normal 80-97 [facility] Comment on above: Performed By: #### L 404.6700 ####[facility] ([facility])[address] [place], [place] [phone] Nivar, MD Weakley- Auto Diff 6.7 % Normal 2-10 [facility] Comment on above: Performed By: #### L 404.6700 ####[facility] ([facility])[address], [place] [phone] Nivar, MD Neut-Auto Diff 80.0 % High 40-70 [facility] Comment on above: Performed By: #### L 404.6700 ####[facility] ([facility])[address] [place], [place] [phone] Nivar, MD NRBC-Auto 0.1 /100 WBC Normal <1 [facility] Comment on above: Performed By: #### L 404.6700 ####[facility] ([facility])[address] [place], [place] [phone] Nivar, MD Platelets Auto #/vol (Bld) 359 th/cmm Normal 150-400 [facility] Comment on above: Performed By: #### L 404.6700 ####[facility] ([facility])[address], [place] [phone] Nivar, MD RBC Auto #/vol (Bld) 4.57 mil/cmm Normal 4.00-5.10 [facility] Comment on above: Performed By: #### L 404.6700 ####[facility] ([facility])[address], [place] [phone] Nivar, MD WBC Auto #/vol (Bld) 13.5 th/cmm High 4.4-10.5 [facility] Comment on above: Performed By: #### L 404.6700 ####[facility] ([facility])[address], [place] [phone] Nivar, MD Comprehensive Metabolic Pane shayne 05-18-2018 Albumin mass conc 3.6 g/dL Normal 3.5-5.0 [facility] Comment on above: Performed By: #### L 800.0100, L800.0300, L800.0400, L800.4806 ####[facility] ([facility])[address], [place] [phone] Nivar, MD Albumin/Globulin mass ratio 1.1 {ratio} Low 1.5-2.5 [facility] Comment on above: Performed By: #### L 800.0100, L800.0300, L800.0400, L800.4806 ####[facility] ([facility])[address], [place] [phone] Nivar, MD Alk Phos 86 IU/L Normal 39-118 [facility] Comment on above: Performed By: #### L 800.0100, L800.0300, L800.0400, L800.4806 ####[facility] ([facility])[address], [place] [phone] Nivar, MD ALT/SGPT 11 IU/L Normal 10-40 [facility] Comment on above: Performed By: #### L 800.0100, L800.0300, L800.0400, L800.4806 ####[facility] ([facility])[address], [place] [phone] Nivar, MD Anion gap 3 molar conc 10 mmol/L Normal 4-12 [facility] Comment on above: Performed By: #### L 800.0100, L800.0300, L800.0400, L800.4806 ####[facility] ([facility])[address], [place] [phone] Nivar, MD AST/SGOT 17 IU/L Normal 15-41 [facility] Comment on above: Performed By: #### L 800.0100, L800.0300, L800.0400, L800.4806 ####[facility] ([facility])[address], [place] [phone] Nivar, MD Bili, Total 0.7 mg/dL Normal 0.2-1.0 [facility] Comment on above: Performed By: #### L 800.0100, L800.0300, L800.0400, L800.4806 ####[facility] ([facility])[address] [phone] Nivar, MD Calcium mass conc 8.7 mg/dL Low 8.8-10.5 [facility] Comment on above: Performed By: #### L 800.0100, L800.0300, L800.0400, L800.4806 ####[facility] ([facility])[address], [place] [phone] Nivar, MD Chloride molar conc 102 mmol/L Normal 101-111 [facility] Comment on above: Performed By: #### L 800.0100, L800.0300, L800.0400, L800.4806 ####[facility] ([facility])[address] [phone] Nivar, MD CO2 molar conc 21 mmol/L Normal 21-32 [facility] Comment on above: Performed By: #### L 800.0100, L800.0300, L800.0400, L800.4806 ####[facility] ([facility])[address], [place] [phone] Nivar, MD Creatinine mass conc 0.41 mg/dL Low 0.60-1.30 [facility] Comment on above: Performed By: #### L 800.0100, L800.0300, L800.0400, L800.4806 ####[facility] ([facility])[address] [phone] Nivar, MD GFR/1.73 sq M predicted among non-blacks MDRD vol rate/area (S/P/Bld) mL/min/{1.73_m2} Normal [facility] Comment on above: Result Comment: 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 Height and weight are not factored. Performed By: #### L 800.0100, L800.0300, L800.0400, L800.4806 ####[facility] ([facility])[address] [place] [phone] Nivar, MD Glucose mass conc 93 mg/dL Normal 70-110 [facility] Comment on above: Result Comment: *Thi s reference range applies to fasting specimens only. Performed By: #### L 800.0100, L800.0300, L800.0400, L800.4806 ####[facility] ([facility])[address] [place] [phone] Nivar, MD Potassium molar conc 3.6 mmol/L Normal 3.6-5.0 [facility] Comment on above: Performed By: #### L 800.0100, L800.0300, L800.0400, L800.4806 ####[facility] ([facility])[address] [place] [phone] Nivar, MD Protein mass conc 6.8 g/dL Normal 6.2-8.0 [facility] Comment on above: Performed By: #### L 800.0100, L800.0300, L800.0400, L800.4806 ####[facility] ([facility])[address] [place] [phone] Nivar, MD Sodium molar conc 133 mmol/L Low 135-145 [facility] Comment on above: Performed By: #### L 800.0100, L800.0300, L800.0400, L800.4806 ####[facility] ([facility])[address] [place], [place] [phone] Nivar, MD Urea nitrogen mass conc mg/dL Low 7-20 [facility] Comment on above: Performed By: #### L 800.0100, L800.0300, L800.0400, L800.4806 ####[facility] ([facility])[address], [place] [phone] Nivar, MD Drug Screen Urineon 05-18-20 18 Amphetamines Negative Normal Negative [facility] Comment on above: Performed By: #### L 800.0100, L800.0300, L800.0400, L800.4806 ####[facility] ([facility])[address], [place] [phone] Nivar, MD Barbiturates Negative Normal Negative [facility] Comment on above: Performed By: #### L 800.0100, L800.0300, L800.0400, L800.4806 ####[facility] ([facility])[address], [place] [phone] Nivar, MD Benzodiazepines Negative Normal Negative [facility] Comment on above: Performed By: #### L 800.0100, L800.0300, L800.0400, L800.4806 ####[facility] ([facility])[address], [place] [phone] Nivar, MD Cannabinoids Negative Normal Negative [facility] Comment on above: Performed By: #### L 800.0100, L800.0300, L800.0400, L800.4806 ####[facility] ([facility])[address], [place] [phone] Nivar, MD Cocaine Negative Normal Negative [facility] Comment on above: Performed By: #### L 800.0100, L800.0300, L800.0400, L800.4806 ####[facility] ([facility])[address], [place] [phone] Nivar, MD Opiates Negative Normal Negative [facility] Comment on above: Performed By: #### L 800.0100, L800.0300, L800.0400, L800.4806 ####[facility] ([facility])[address], [place] [phone] Nivar, MD Phencyclidine Negative Normal Negative [facility] Comment on above: Performed By: #### L 800.0100, L800.0300, L800.0400, L800.4806 ####[facility] ([facility])[address], [place] [phone] Nivar, MD Oxycodone Negative Normal Negative [facility] Comment on above: Performed By: #### L 800.0100, L800.0300, L800.0400, L800.4806 ####[facility] ([facility])[address], [place] [phone] Nivar, MD Comment Normal [facility] Comment on above: Result Comment: This drug of abuse screen is not intended for employmentrelated testing and is intended for use in clinicalmanagement of patients. Cut-off Concentrations for Positive ResultsPhencyclidine 25 ng/mLBenzodiazepines 200 ng/mLCocaine 300 ng/mLAmphetamines 1000 ng/mLCannabinoids 100 ng/mLOpiates 300 ng/mLBarbiturates 200 ng/mLOxycodone 100 ng/mL Performed By: #### L 800.0100, L800.0300, L800.0400, L800.4806 ####[facility] ([facility])[address], [place] [phone] Nivar, MD Urinalysis with Reflex Cultu reon 05-18-2018 Appearance Cloudy [facility] Comment on above: Order Comment: Urine Source Urine, Clean Catch Performed By: #### L 404.6700 ####[facility] ([facility])[address], [place] [phone] Nivar, MD Bacteria 1+ [facility] Comment on above: Order Comment: Urine Source Urine, Clean Catch Performed By: #### L 404.6700 ####[facility] ([facility])[address], [place] [phone] Nivar, MD Bilirubin Negative Normal Negative [facility] Comment on above: Order Comment: Urine Source Urine, Clean Catch Performed By: #### L 404.0 ####[facility] ([facility])[address], [place] [phone] Nivar, MD Color Yellow [facility] Comment on above: Order Comment: Urine Source Urine, Clean Catch Performed By: #### L 404.6700 ####[facility] ([facility])[address], [place] [phone] Nivar, MD Epi,Squamous >50 [facility] Comment on above: Order Comment: Urine Source Urine, Clean Catch Performed By: #### L 404.6700 ####[facility] ([facility])[address], [place] [phone] Nivar, MD Epi,Transitional 0-5 Normal [facility] Comment on above: Order Comment: Urine Source Urine, Clean Catch Performed By: #### L 404.6700 ####[facility] ([facility])[address], [place] [phone] Nivar, MD Glucose Negative Normal Negative [facility] Comment on above: Order Comment: Urine Source Urine, Clean Catch Performed By: #### L 404.6700 ####[facility] ([facility])[address], [place] [phone] Nivar, MD Hyaline Casts 0-2 Normal [facility] Comment on above: Order Comment: Urine Source Urine, Clean Catch Performed By: #### L 404.6700 ####[facility] ([facility])[address], [place] [phone] Nivar, MD INR Coag RelTime (Bld) 3-5 High [facility] Comment on above: Order Comment: Urine Source Urine, Clean Catch Performed By: #### L 404.0 ####[facility] ([facility])[address] [phone] Nivar, MD Ketones Negative Normal Negative [facility] Comment on above: Order Comment: Urine Source Urine, Clean Catch Performed By: #### L 404.0 ####[facility] ([facility])[address] [phone] Nivar, MD Leukocytes Large High Negative [facility] Comment on above: Order Comment: Urine Source Urine, Clean Catch Performed By: #### L 404.0 ####[facility] ([facility])[address] [phone] Nivar, MD Mucous Present Normal [facility] Comment on above: Order Comment: Urine Source Urine, Clean Catch Performed By: #### L 404.0 ####[facility] ([facility])[address] [phone] Nivar, MD Nitrites Negative Normal Negative [facility] Comment on above: Order Comment: Urine Source Urine, Clean Catch Performed By: #### L 404.6700 ####[facility] ([facility])[address] [phone] Nivar, MD pH 7.0 Normal 5.0-8.0 [facility] Comment on above: Order Comment: Urine Source Urine, Clean Catch Performed By: #### L 404.6700 ####[facility] ([facility])[address] [phone] Nivar, MD Protein mass conc Negative Normal Negative [facility] Comment on above: Order Comment: Urine Source Urine, Clean Catch Performed By: #### L 404.0 ####[facility] ([facility])[address] [phone] Nivar, MD Specific [place] 1.012 Normal 1.000-1.035 [facility] Comment on above: Order Comment: Urine Source Urine, Clean Catch Performed By: #### L 404.0 ####[facility] ([facility])[address], [place] [phone] Nivar, MD UA Reflex Culture Yes Normal [facility] Comment on above: Order Comment: Urine Source Urine, Clean Catch Result Comment: Cult ure done per lab protocol Performed By: #### L 404.6700 ####[facility] ([facility])[address] [phone] Nivar, MD Urobilinogen <2.0 E.U./dL Normal 0.2-1.0 [facility] Comment on above: Order Comment: Urine Source Urine, Clean Catch Performed By: #### L 404.6700 ####[facility] ([facility])[address], [place] [phone] Nivar, MD WBC 6-10 High [facility] Comment on above: Order Comment: Urine Source Urine, Clean Catch Performed By: #### L 404.0 ####[facility] ([facility])[address], [place] [phone] Nivar, MD Urine Protein/Creatinine Rat ioon 05-18-2018 Creatinine mass conc (U) 108.7 mg/dL Normal [facility] Comment on above: Performed By: #### L 800.0100, L800.0300, L800.0400, L800.4806 ####[facility] ([facility])[address] [place] [phone] Nivar, MD Total Protein, Random Urine 18.0 mg/dL Normal [facility] Comment on above: Performed By: #### L 800.0100, L800.0300, L800.0400, L800.4806 ####[facility] ([facility])[address] [place], [place] [phone] Nivar, MD Urine Protein/Creatinine Ratio 0.2 g/1.73m2 High <0.15 [facility] Comment on above: Performed By: #### L 800.0100, L800.0300, L800.0400, L800.4806 ####[facility] ([facility])[address] [place], [place] [phone] Nivar, MD Group B Strep Probeon 2017 Protein mass conc Positive High Negative [facility] Comment on above: Order Comment: Does [...] Performed By: #### L 404.6700 ####[facility] ([facility])[address], [place] [phone] Nivar, MD Nonstress Test Reporton Nonstress Test Report [facility] Medical Records Patient: KAYLEEN KOVACS [address] : 1995 [place], [place] [address] Location: [facility] [phone] Unit #: [id number] Nonstress Test Report Lenora Peña CNM SUBJECTIVE: [...] 1602 < > Co-Signed by: on Normal [facility] Urine culture, reflexon Urine culture, reflex No growth(<10,000 CFU/ml)of urinary tract pathogens. Tobias present are not the usual etiologic agents of a urinary tract infection and probably represent vaginal,urethral, or skin tobias. Contact Microbiology at extension [phone] if further information is needed. ORGANISM 1: Mixed tobias- 3 species presentColony count >100,000 CFU/ml Normal [facility] Comment on above: Performed By: #### L 404.6700 ####[facility] ([facility])[address], [place] [phone] Nivar, MD APTTon 05-02-2018 aPTT Coag time (Bld) 26.7 Sec Normal 23.0-38.0 [facility] Comment on above: Order Comment: Is Marisel pate receiving Heparin? No Result Comment: APTT of 50.5 to 78.0 secondsrepresents therapeutic rangefor heparin (unfractionated) for[facility] [place].This corresponds to a heparinconcentration of 0.3 to 0.7 IU/ml. Performed By: #### L 402.4000 ####[facility] ([facility])[address], [place] [phone] Nivar, MD Bilirubin,Directon 8 Bili,Direct 0.1 mg/dL Normal 0.1-0.2 [facility] Comment on above: Performed By: #### L 404.6700 ####[facility] ([facility])[address] [phone] Nivar, MD CBC with Differentialon 04-04 Abs Baso Count 200 /cmm Normal 0-200 [facility] Comment on above: Performed By: #### L 402.4000 ####[facility] ([facility])[address] [phone] Nivar, MD Abs Eos Count 100 /cmm Normal 0-500 [facility] Comment on above: Performed By: #### L 402.4000 ####[facility] ([facility])[address] [phone] Nivar, MD Abs Weakley Count 1000 /cmm High 0-800 [facility] Comment on above: Performed By: #### L 402.4000 ####[facility] ([facility])[address] [phone] Nivar, MD Abs Neut Count 58553 /cmm High 4121-7081 [facility] Comment on above: Performed By: #### L 402.4000 ####[facility] ([facility])[address], [place] [phone] Nivar, MD Basophils Auto #/vol (Bld) 1.3 % Normal 0-2 [facility] Comment on above: Performed By: #### L 402.4000 ####[facility] ([facility])[address], [place] [phone] Nivar, MD EOS-Auto Diff 0.9 % Normal 0-6 [facility] Comment on above: Performed By: #### L 402.4000 ####[facility] ([facility])[address], [place] [phone] Nivar, MD Erythrocyte distribution width Auto Ratio (RBC) 13.2 % Normal 12.0-16.0 [facility] Comment on above: Performed By: #### L 402.4000 ####[facility] ([facility])[address], [place] [phone] Nivar, MD Hematocrit Auto Volume Fraction (Bld) 38.6 % Normal 35.0-44.0 [facility] Comment on above: Performed By: #### L 402.4000 ####[facility] ([facility])[address], [place] [phone] Nivar, MD Hemoglobin mass conc (Bld) 12.6 g/dL Normal 12.0-15.0 [facility] [facility] Comment on above: Performed By: #### L 402.4000 ####[facility] ([facility])[address], [place] [phone] Nivar, MD Hypochromasia 1+ Normal [facility] Comment on above: Performed By: #### L 402.4000 ####[facility] ([facility])[address], [place] [phone] Nivar, MD Lymphocytes Auto #/vol (Bld) 2600 /cmm Normal 5247-9225 [facility] Comment on above: Performed By: #### L 402.4000 ####[facility] ([facility])[address] [place] [phone] Nivar, MD Lymphocytes/100 WBC Auto (Bld) 16.2 % Normal 15-45 [facility] Comment on above: Performed By: #### L 402.4000 ####[facility] ([facility])[address] [place] [phone] Nivar, MD MCH Auto Entitic mass (RBC) 26.8 pg Low 27.5-33.0 [facility] Comment on above: Performed By: #### L 402.4000 ####[facility] ([facility])[address] [place] [phone] Nivar, MD MCHC Auto mass conc (RBC) 32.6 g/dL Low 33.0-36.0 [facility] Comment on above: Performed By: #### L 402.4000 ####[facility] ([facility])[address] [place] [phone] Nivar, MD MCV Auto Entitic volume (RBC) 82.4 CU EHSAN Normal 80-97 [facility] Comment on above: Performed By: #### L 402.4000 ####[facility] ([facility])[address] [place] [phone] Nivar, MD Weakley- Auto Diff 6.4 % Normal 2-10 [facility] Comment on above: Performed By: #### L 402.4000 ####[facility] ([facility])[address] [place] [phone] Nivar, MD Neut-Auto Diff 75.2 % High 40-70 [facility] Comment on above: Performed By: #### L 402.4000 ####[facility] ([facility])[address], [place] [phone] Nivar, MD NRBC-Auto 0.1 /100 WBC Normal <1 [facility] Comment on above: Performed By: #### L 402.4000 ####[facility] ([facility])[address], [place] [phone] Nivar, MD Platelets Auto #/vol (Bld) 390 th/cmm Normal 150-400 [facility] Comment on above: Performed By: #### L 402.4000 ####[facility] ([facility])[address] [place] [phone] Nivar, MD RBC Auto #/vol (Bld) 4.68 mil/cmm Normal 4.00-5.10 [facility] Comment on above: Performed By: #### L 402.4000 ####[facility] ([facility])[address] [place] [phone] Nivar, MD WBC Auto #/vol (Bld) 15.9 th/cmm High 4.4-10.5 [facility] Comment on above: Performed By: #### L 402.4000 ####[facility] ([facility])[address] [place] [phone] Nivar, MD Comprehensive Metabolic Pane shayne 05-02-2018 Albumin mass conc 4.0 g/dL Normal 3.5-5.0 [facility] Comment on above: Performed By: #### L 404.6700 ####[facility] ([facility])[address] [place] [phone] Nivar, MD Albumin/Globulin mass ratio 1.5 {ratio} Normal 1.5-2.5 [facility] Comment on above: Performed By: #### L 404.6700 ####[facility] ([facility])[address] [place] [phone] Nivar, MD Alk Phos 100 IU/L Normal 39-118 [facility] Comment on above: Performed By: #### L 404.6700 ####[facility] ([facility])[address] [phone] Nivar, MD ALT/SGPT 14 IU/L Normal 10-40 [facility] Comment on above: Performed By: #### L 404.0 ####[facility] ([facility])[address], [place] [phone] Nivar, MD AST/SGOT 17 IU/L Normal 15-41 [facility] Comment on above: Performed By: #### L 404.0 ####[facility] ([facility])[address] [phone] Nivar, MD Bili,Total < 0.1 Low 0.2-1.0 [facility] Comment on above: Performed By: #### L 404.0 ####[facility] ([facility])[address] [phone] Nivar, MD Urea nitrogen mass conc mg/dL Low 7-20 [facility] Comment on above: Performed By: #### L 404.6700 ####[facility] ([facility])[address] [phone] Nivar, MD Anion gap 3 molar conc 8 mmol/L Normal 4-12 [facility] Comment on above: Performed By: #### L 404.6700 ####[facility] ([facility])[address] [phone] Nivar, MD Calcium mass conc 9.0 mg/dL Normal 8.8-10.5 [facility] Comment on above: Performed By: #### L 404.0 ####[facility] ([facility])[address], [place] [phone] Nivar, MD Chloride molar conc 105 mmol/L Normal 101-111 [facility] Comment on above: Performed By: #### L 404.6700 ####[facility] ([facility])[address] [place] [phone] Nivar, MD CO2 molar conc 24 mmol/L Normal 21-32 [facility] Comment on above: Performed By: #### L 404.6700 ####[facility] ([facility])[address] [place] [phone] Nivar, MD Creatinine mass conc 0.52 mg/dL Low 0.60-1.30 [facility] Comment on above: Performed By: #### L 404.6700 ####[facility] ([facility])[address] [place] [phone] Nivar, MD GFR/1.73 sq M predicted among non-blacks MDRD vol rate/area (S/P/Bld) mL/min/{1.73_m2} Normal [facility] Comment on above: Result Comment: 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 Height and weight are not factored. Performed By: #### L 404.6700 ####[facility] ([facility])[address] [place] [phone] Nivar, MD Glucose mass conc 101 mg/dL Normal 70-110 [facility] Comment on above: Result Comment: *Thi s reference range applies to fasting specimens only. Performed By: #### L 404.6700 ####[facility] ([facility])[address] [place], [place] [phone] Nivar, MD Potassium molar conc 3.5 mmol/L Low 3.6-5.0 [facility] Comment on above: Performed By: #### L 404.6700 ####[facility] ([facility])[address] [place], [place] [phone] Nivar, MD Protein mass conc 6.7 g/dL Normal 6.2-8.0 [facility] Comment on above: Performed By: #### L 404.6700 ####[facility] ([facility])[address] [place] [phone] Nivar, MD Sodium molar conc 137 mmol/L Normal 135-145 [facility] Comment on above: Performed By: #### L 404.6700 ####[facility] ([facility])[address] [place], [place] [phone] Nivar, MD Drug Screen Urineon 05-02-20 18 Amphetamines Negative Normal Negative [facility] Comment on above: Performed By: #### L 402.4000 ####[facility] ([facility])[address] [place] [phone] Nivar, MD Barbiturates Negative Normal Negative [facility] Comment on above: Performed By: #### L 402.4000 ####[facility] ([facility])[address] [place], [place] [phone] Nivar, MD Benzodiazepines Negative Normal Negative [facility] Comment on above: Performed By: #### L 402.4000 ####[facility] ([facility])[address] [place], [place] [phone] Nivar, MD Cannabinoids Negative Normal Negative [facility] Comment on above: Performed By: #### L 402.4000 ####[facility] ([facility])[address] [phone] Nivar, MD Cocaine Negative Normal Negative [facility] Comment on above: Performed By: #### L 402.4000 ####[facility] ([facility])[address] [phone] Nivar, MD Opiates Negative Normal Negative [facility] Comment on above: Performed By: #### L 402.4000 ####[facility] ([facility])[address], [place] [phone] Nivar, MD Phencyclidine Negative Normal Negative [facility] Comment on above: Performed By: #### L 402.4000 ####[facility] ([facility])[address] [phone] Nivar, MD Oxycodone Negative Normal Negative [facility] Comment on above: Performed By: #### L 402.4000 ####[facility] ([facility])[address], [place] [phone] Nivar, MD Comment Normal [facility] Comment on above: Result Comment: This drug of abuse screen is not intended for employmentrelated testing and is intended for use in clinicalmanagement of patients. Cut-off Concentrations for Positive ResultsPhencyclidine 25 ng/mLBenzodiazepines 200 ng/mLCocaine 300 ng/mLAmphetamines 1000 ng/mLCannabinoids 100 ng/mLOpiates 300 ng/mLBarbiturates 200 ng/mLOxycodone 100 ng/mL Performed By: #### L 402.4000 ####[facility] ([facility])[address] [phone] Nivar, MD Fibrinogenon 05-02-2018 Fibrinogen 738 mg/dL High 200-400 [facility] Comment on above: Order Comment: Is Pa tient receiving Heparin? No Performed By: #### L 404.6700 ####[facility] ([facility])[address] [phone] Nivar, MD LDHon 05-02-2018 LDH 85 iu/l Low 98-192 [facility] Comment on above: Performed By: #### L 404.6700 ####[facility] ([facility])[address] [phone] Nivar, MD Prothrombin Timeon 8 INR Coag RelTime (PPP) 0.97 {INR} Normal 0.9-1.2 [facility] Comment on above: Order Comment: Is Pa tient receiving Heparin? No Result Comment: Grover dard dose INR: 2.0-3.0High dose INR: 2.5-3.5 Performed By: #### L 402.4000 ####[facility] ([facility])[address] [phone] Nivar, MD Prothrombin time (PT) Coag time (PPP) 11.2 Sec Normal 9.6-13.3 [facility] Comment on above: Order Comment: Is Pa tient receiving Heparin? No Performed By: #### L 402.4000 ####[facility] ([facility])[address] [place] [phone] Nivar, MD Uric Acidon 05-02-2018 Urate mass conc 4.0 mg/dL Normal 2.6-8.0 [facility] Comment on above: Performed By: #### L 404.6700 ####[facility] ([facility])[address] [place] [phone] Nivar, MD Urinalysis with Reflex Cultu reon 05-02-2018 Appearance Cloudy [facility] Comment on above: Order Comment: Urine Source Urine, Clean Catch Performed By: #### L 402.4000 ####[facility] ([facility])[address] [place] [phone] Nivar, MD Bacteria 1+ High [facility] Comment on above: Order Comment: Urine Source Urine, Clean Catch Performed By: #### L 402.4000 ####[facility] ([facility])[address] [phone] Nivar, MD Bilirubin Negative Normal Negative [facility] Comment on above: Order Comment: Urine Source Urine, Clean Catch Performed By: #### L 402.4000 ####[facility] ([facility])[address] [phone] Nivar, MD Color Yellow Normal [facility] Comment on above: Order Comment: Urine Source Urine, Clean Catch Performed By: #### L 402.4000 ####[facility] ([facility])[address] [phone] Nivar, MD Epi,Squamous 11-20 [facility] Comment on above: Order Comment: Urine Source Urine, Clean Catch Performed By: #### L 402.4000 ####[facility] ([facility])[address] [phone] Nivar, MD Glucose Negative Normal Negative [facility] Comment on above: Order Comment: Urine Source Urine, Clean Catch Performed By: #### L 402.4000 ####[facility] ([facility])[address] [phone] Nivar, MD INR Coag RelTime (Bld) 0-2 Normal [facility] Comment on above: Order Comment: Urine Source Urine, Clean Catch Performed By: #### L 402.4000 ####[facility] ([facility])[address] [phone] Nivar, MD Ketones Trace High Negative [facility] Comment on above: Order Comment: Urine Source Urine, Clean Catch Performed By: #### L 402.4000 ####[facility] ([facility])[address] [phone] Nivar, MD Leukocytes Moderate High Negative [facility] Comment on above: Order Comment: Urine Source Urine, Clean Catch Performed By: #### L 402.4000 ####[facility] ([facility])[address] [phone] Nivar, MD Nitrites Negative Normal Negative [facility] Comment on above: Order Comment: Urine Source Urine, Clean Catch Performed By: #### L 402.4000 ####[facility] ([facility])[address] [phone] Nivar, MD pH 7.0 Normal 5.0-8.0 [facility] Comment on above: Order Comment: Urine Source Urine, Clean Catch Performed By: #### L 402.4000 ####[facility] ([facility])[address] [phone] Nivar, MD Protein mass conc Negative Normal Negative [facility] Comment on above: Order Comment: Urine Source Urine, Clean Catch Performed By: #### L 402.4000 ####[facility] ([facility])[address] [phone] Nivar, MD Specific [place] 1.005 Normal 1.000-1.035 [facility] Comment on above: Order Comment: Urine Source Urine, Clean Catch Performed By: #### L 402.4000 ####[facility] ([facility])[address] [phone] Nivar, MD UA Reflex Culture Yes Normal [facility] Comment on above: Order Comment: Urine Source Urine, Clean Catch Result Comment: Cult ure done per lab protocol Performed By: #### L 402.4000 ####[facility] ([facility])[address] [phone] Nivar, MD Urobilinogen <2.0 E.U./dL Normal 0.2-1.0 [facility] Comment on above: Order Comment: Urine Source Urine, Clean Catch Performed By: #### L 402.4000 ####[facility] ([facility])[address] [phone] Nivar, MD WBC 0-5 Normal [facility] Comment on above: Order Comment: Urine Source Urine, Clean Catch Performed By: #### L 402.4000 ####[facility] ([facility])[address] [phone] Nivar, MD Urine Protein/Creatinine Rat ioon 05-02-2018 Total Protein, Random Urine < 6.0 Normal [facility] Comment on above: Performed By: #### L 402.4000 ####[facility] ([facility])[address] [phone] Nivar, MD Urine Protein/Creatinine Ratio 0.2 g/1.73m2 High <0.15 [facility] Comment on above: Performed By: #### L 402.4000 ####[facility] ([facility])[address] [phone] Nivar, MD Creatinine mass conc (U) 33.6 mg/dL Normal [facility] Comment on above: Performed By: #### L 402.4000 ####[facility] ([facility])[address] [phone] Nivar, MD Nonstress Test Reporton 04-03 Nonstress Test Report [facility] Medical Records Patient: KAYLEEN KOVACS [address] : 1995 [place], [place] [address] Location: OB [phone] Unit #: [id number] Nonstress Test Report Jocelyn Bowen CNM SUBJECTIVE: [...] 04/24/18428 < > Co-Signed by: on Normal [facility] APTTon 04-16-2018 aPTT Coag time (Bld) 27.0 Sec Normal 23.0-38.0 [facility] Comment on above: Order Comment: Is Pa tient receiving Heparin? No Result Comment: APTT of 50.5 to 78.0 secondsrepresents therapeutic rangefor heparin (unfractionated) for[facility] [place].This corresponds to a heparinconcentration of 0.3 to 0.7 IU/ml. Performed By: #### L 402.4000 ####[facility] ([facility] [place] [phone] Nivar, MD Blood Urea Nitrogenon 2017 Urea nitrogen mass conc mg/dL Low 7-20 [facility] Comment on above: Performed By: #### B 100.0800 ####[facility] ([facility])[address] [place] [phone] Nivar, MD CBC with Differentialon 04-02 Abs Baso Count 100 /cmm Normal 0-200 [facility] Comment on above: Performed By: #### B 100.0800 ####[facility] ([facility])[address] [place] [phone] Nivar, MD Abs Eos Count 200 /cmm Normal 0-500 [facility] Comment on above: Performed By: #### B 100.0800 ####[facility] ([facility])[address] [phone] Nivar, MD Abs Weakley Count 1000 /cmm High 0-800 [facility] Comment on above: Performed By: #### B 100.0800 ####[facility] ([facility])[address] [place] [phone] Nivar, MD Abs Neut Count 19572 /cmm High 8384-6097 [facility] Comment on above: Performed By: #### B 100.0800 ####[facility] ([facility])[address] [place] [place] [phone] Nivar, MD Basophils Auto #/vol (Bld) 0.9 % Normal 0-2 [facility] Comment on above: Performed By: #### B 100.0800 ####[facility] ([facility])[address] [place] [phone] Nivar, MD EOS-Auto Diff 1.3 % Normal 0-6 [facility] Comment on above: Performed By: #### B 100.0800 ####[facility] ([facility])[address] [place] [phone] Nivar, MD Erythrocyte distribution width Auto Ratio (RBC) 13.5 % Normal 12.0-16.0 [facility] Comment on above: Performed By: #### B 100.0800 ####[facility] ([facility])[address], [place] [phone] Nivar, MD Hematocrit Auto Volume Fraction (Bld) 37.5 % Normal 35.0-44.0 [facility] Comment on above: Performed By: #### B 100.0800 ####[facility] ([facility])[address] [phone] Nivar, MD Hemoglobin mass conc (Bld) 12.2 g/dL Normal 12.0-15.0 [facility] Comment on above: Performed By: #### B 100.0800 ####[facility] ([facility])[address], [place] [phone] Nivar, MD Hypochromasia 1+ Normal [facility] Comment on above: Performed By: #### B 100.0800 ####[facility] ([facility])[address] [phone] Nivar, MD Lymphocytes Auto #/vol (Bld) 2100 /cmm Normal 3637-7363 [facility] Comment on above: Performed By: #### B 100.0800 ####[facility] ([facility])[address] [phone] Nivar, MD Lymphocytes/100 WBC Auto (Bld) 15.4 % Normal 15-45 [facility] Comment on above: Performed By: #### B 100.0800 ####[facility] ([facility])[address] [place] [phone] Nivar, MD MCH Auto Entitic mass (RBC) 26.6 pg Low 27.5-33.0 [facility] Comment on above: Performed By: #### B 100.0800 ####[facility] ([facility])[address] [place] [phone] Nivar, MD MCHC Auto mass conc (RBC) 32.6 g/dL Low 33.0-36.0 [facility] Comment on above: Performed By: #### B 100.0800 ####[facility] ([facility])[address], [place] [phone] Nivar, MD MCV Auto Entitic volume (RBC) 81.7 CU EHSAN Normal 80-97 [facility] Comment on above: Performed By: #### B 100.0800 ####[facility] ([facility])[address] [phone] Nivar, MD Weakley- Auto Diff 7.3 % Normal 2-10 [facility] Comment on above: Performed By: #### B 100.0800 ####[facility] ([facility])[address], [place] [phone] Nivar, MD Neut-Auto Diff 75.1 % High 40-70 [facility] Comment on above: Performed By: #### B 100.0800 ####[facility] ([facility])[address] [place] [phone] Nivar, MD NRBC-Auto 0.0 /100 WBC Normal <1 [facility] Comment on above: Performed By: #### B 100.0800 ####[facility] ([facility])[address] [phone] Nivar, MD Platelets Auto #/vol (Bld) 394 th/cmm Normal 150-400 [facility] Comment on above: Performed By: #### B 100.0800 ####[facility] ([facility])[address] [phone] Nivar, MD RBC Auto #/vol (Bld) 4.59 mil/cmm Normal 4.00-5.10 [facility] Comment on above: Performed By: #### B 100.0800 ####[facility] ([facility])[address] [phone] Nivar, MD WBC Auto #/vol (Bld) 13.6 th/cmm High 4.4-10.5 [facility] Comment on above: Performed By: #### B 100.0800 ####[facility] ([facility])[address] [place] [phone] Nivar, MD Creatinineon 04-16-2018 Creatinine mass conc 0.43 mg/dL Low 0.60-1.30 [facility] Comment on above: Performed By: #### B 100.0800 ####[facility] ([facility])[address] [place] [phone] Nivar, MD GFR/1.73 sq M predicted among non-blacks MDRD vol rate/area (S/P/Bld) mL/min/{1.73_m2} Normal [facility] Comment on above: Result Comment: 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 Height and weight are not factored. Performed By: #### B 100.0800 ####[facility] ([facility])[address] [place] [phone] Nivar, MD Drug Screen Urineon 04-16-20 18 Amphetamines Negative Normal Negative [facility] Comment on above: Performed By: #### L 402.4000 ####[facility] ([facility])[address] [place] [phone] Nivar, MD Barbiturates Negative Normal Negative [facility] Comment on above: Performed By: #### L 402.4000 ####[facility] ([facility])[address] [place] [phone] Nivar, MD Benzodiazepines Negative Normal Negative [facility] Comment on above: Performed By: #### L 402.4000 ####[facility] ([facility])[address], [place] [phone] Nivar, MD Cannabinoids Negative Normal Negative [facility] Comment on above: Performed By: #### L 402.4000 ####[facility] ([facility])[address], [place] [phone] Nivar, MD Cocaine Negative Normal Negative [facility] Comment on above: Performed By: #### L 402.4000 ####[facility] ([facility])[address], [place] [phone] Nivar, MD Opiates Negative Normal Negative [facility] Comment on above: Performed By: #### L 402.4000 ####[facility] ([facility])[address], [place] [phone] Nivar, MD Phencyclidine Negative Normal Negative [facility] Comment on above: Performed By: #### L 402.4000 ####[facility] ([facility])[address], [place] [phone] Nivar, MD Oxycodone Negative Normal Negative [facility] Comment on above: Performed By: #### L 402.4000 ####[facility] ([facility])[address], [place] [phone] Nivar, MD Comment Normal [facility] Comment on above: Result Comment: This drug of abuse screen is not intended for employmentrelated testing and is intended for use in clinicalmanagement of patients. Cut-off Concentrations for Positive ResultsPhencyclidine 25 ng/mLBenzodiazepines 200 ng/mLCocaine 300 ng/mLAmphetamines 1000 ng/mLCannabinoids 100 ng/mLOpiates 300 ng/mLBarbiturates 200 ng/mLOxycodone 100 ng/mL Performed By: #### L 402.4000 ####[facility] ([facility])[address], [place] [phone] Nivar, MD Fibrinogenon 04-16-2018 Fibrinogen 714 mg/dL High 200-400 [facility] Comment on above: Order Comment: Is Marisel pate receiving Heparin? No Performed By: #### L 402.4000 ####[facility] ([facility])[address], [place] [phone] Nivar, MD Hepatic Function Panel (Live r)on 04-16-2018 Albumin mass conc 4.2 g/dL Normal 3.5-5.0 [facility] Comment on above: Performed By: #### B 100.0800 ####[facility] ([facility])[address], [place] [phone] Nivar, MD Alk Phos 84 IU/L Normal 39-118 [facility] Comment on above: Performed By: #### B 100.0800 ####[facility] ([facility])[address], [place] [phone] Nivar, MD ALT/SGPT 15 IU/L Normal 10-40 [facility] Comment on above: Performed By: #### B 100.0800 ####[facility] ([facility])[address], [place] [phone] Nivar, MD AST/SGOT 15 IU/L Normal 15-41 [facility] Comment on above: Performed By: #### B 100.0800 ####[facility] ([facility])[address], [place] [phone] Nivar, MD Bili,Direct < 0.1 Low 0.1-0.2 [facility] Comment on above: Performed By: #### B 100.0800 ####[facility] ([facility])[address], [place] [phone] Nivar, MD Bili,Total < 0.1 Low 0.2-1.0 [facility] Comment on above: Result Comment: Delt a: 0.7 on 03/26/18-1615 Performed By: #### B 100.0800 ####[facility] ([facility])[address], [place] [phone] Nivar, MD Protein mass conc 6.5 g/dL Normal 6.2-8.0 [facility] Comment on above: Performed By: #### B 100.0800 ####[facility] ([facility])[address] [phone] Nivar, MD LDHon 04-16-2018 LDH 80 iu/l Low 98-192 [facility] Comment on above: Performed By: #### B 100.0800 ####[facility] ([facility])[address], [place] [phone] Nivar, MD Nonstress Test Reporton 04-02 Nonstress Test Report [facility] Medical Records Patient: KAYLEEN KOVACS [address] : 1995 [place], [place] [address] Location: [facility] [phone] Unit #: [id number] Nonstress Test Report Audrey Rao MD (LMA) [...] 04/16/18913 < > Co-Signed by: on Normal [facility] Prothrombin Timeon 8 INR Coag RelTime (PPP) 0.98 {INR} Normal 0.9-1.2 [facility] Comment on above: Order Comment: Is Pa tient receiving Heparin? No Result Comment: Grover dard dose INR: 2.0-3.0High dose INR: 2.5-3.5 Performed By: #### B 100.0800 ####[facility] ([facility])[address] [place] [phone] Nivar, MD Prothrombin time (PT) Coag time (PPP) 11.3 Sec Normal 9.6-13.3 [facility] Comment on above: Order Comment: Is Pa tient receiving Heparin? No Performed By: #### B 100.0800 ####[facility] ([facility])[address] [place] [phone] Nivar, MD Uric Acidon 04-16-2018 Urate mass conc 3.8 mg/dL Normal 2.6-8.0 [facility] Comment on above: Performed By: #### B 100.0800 ####[facility] ([facility])[address] [phone] Nivar, MD Urinalysis with Reflex Cultu reon 04-16-2018 Appearance Hazy High [facility] Comment on above: Order Comment: Urine Source Urine, Clean Catch Performed By: #### B 100.0800 ####[facility] ([facility])[address] [place] [phone] Nivar, MD Bacteria Trace Normal [facility] Comment on above: Order Comment: Urine Source Urine, Clean Catch Performed By: #### B 100.0800 ####[facility] ([facility])[address] [place] [phone] Nivar, MD Bilirubin Negative Normal Negative [facility] Comment on above: Order Comment: Urine Source Urine, Clean Catch Performed By: #### B 100.0800 ####[facility] ([facility])[address] [phone] Nivar, MD Color Yellow Normal [facility] Comment on above: Order Comment: Urine Source Urine, Clean Catch Performed By: #### B 100.0800 ####[facility] ([facility])[address] [phone] Nivar, MD Epi,Squamous 11-20 High [facility] Comment on above: Order Comment: Urine Source Urine, Clean Catch Performed By: #### B 100.0800 ####[facility] ([facility])[address] [phone] Nivar, MD Glucose Negative Normal Negative [facility] Comment on above: Order Comment: Urine Source Urine, Clean Catch Performed By: #### B 100.0800 ####[facility] ([facility])[address] [phone] Nivar, MD INR Coag RelTime (Bld) 0-2 Normal [facility] Comment on above: Order Comment: Urine Source Urine, Clean Catch Performed By: #### B 100.0800 ####[facility] ([facility])[address] [phone] Nivar, MD Ketones Negative Normal Negative [facility] Comment on above: Order Comment: Urine Source Urine, Clean Catch Performed By: #### B 100.0800 ####[facility] ([facility])[address] [phone] Nivar, MD Leukocytes Trace High Negative [facility] Comment on above: Order Comment: Urine Source Urine, Clean Catch Performed By: #### B 100.0800 ####[facility] ([facility])[address] [phone] Nivar, MD Mucous Present Normal [facility] Comment on above: Order Comment: Urine Source Urine, Clean Catch Performed By: #### B 100.0800 ####[facility] ([facility])[address] [phone] Nivar, MD Nitrites Negative Normal Negative [facility] Comment on above: Order Comment: Urine Source Urine, Clean Catch Performed By: #### B 100.0800 ####[facility] ([facility])[address] [phone] Nivar, MD pH 7.0 Normal 5.0-8.0 [facility] Comment on above: Order Comment: Urine Source Urine, Clean Catch Performed By: #### B 100.0800 ####[facility] ([facility])[address] [phone] Nivar, MD Protein mass conc Negative Normal Negative [facility] Comment on above: Order Comment: Urine Source Urine, Clean Catch Performed By: #### B 100.0800 ####[facility] ([facility])[address] [phone] Nivar, MD Specific [place] 1.008 Normal 1.000-1.035 [facility] Comment on above: Order Comment: Urine Source Urine, Clean Catch Performed By: #### B 100.0800 ####[facility] ([facility])[address] [phone] Nivar, MD UA Reflex Culture No Normal [facility] Comment on above: Order Comment: Urine Source Urine, Clean Catch Result Comment: Cult ure not done per lab protocol Performed By: #### B 100.0800 ####[facility] ([facility])[address] [phone] Nivar, MD Urobilinogen <2.0 E.U./dL Normal 0.2-1.0 [facility] Comment on above: Order Comment: Urine Source Urine, Clean Catch Performed By: #### B 100.0800 ####[facility] ([facility])[address] [phone] Nivar, MD WBC 0-5 Normal [facility] Comment on above: Order Comment: Urine Source Urine, Clean Catch Performed By: #### B 100.0800 ####[facility] ([facility])[address] [phone] Nivar, MD Urine Protein/Creatinine Rat ioon 04-16-2018 Creatinine mass conc (U) 57.7 mg/dL Normal [facility] Comment on above: Performed By: #### B 100.0800 ####[facility] ([facility])[address] [phone] Nivar, MD Total Protein, Random Urine 8.0 mg/dL Normal [facility] Comment on above: Performed By: #### B 100.0800 ####[facility] ([facility])[address] [phone] Nivar, MD Urine Protein/Creatinine Ratio 0.1 g/1.73m2 Normal <0.15 [facility] Comment on above: Performed By: #### B 100.0800 ####[facility] ([facility])[address] [phone] Nivar, MD AmniSure ROMon 04-09-2018 AmniSure ROM Negative Normal [facility] Comment on above: Result Comment: Rupt ure of amniotic membrane not indicated. Performed By: #### L 300.3000 ####[facility] ([facility])[address] [phone] Nivar, MD Drug Screen Urineon 04-09-20 18 Amphetamines Negative Normal Negative [facility] Comment on above: Performed By: #### L 300.3000 ####[facility] ([facility])[address], [place] [phone] Nivar, MD Barbiturates Negative Normal Negative [facility] Comment on above: Performed By: #### L 300.3000 ####[facility] ([facility])[address], [place] [phone] Nivar, MD Benzodiazepines Negative Normal Negative [facility] Comment on above: Performed By: #### L 300.3000 ####[facility] ([facility])[address], [place] [phone] Nivar, MD Cannabinoids Positive High Negative [facility] Comment on above: Performed By: #### L 300.3000 ####[facility] ([facility])[address], [place] [phone] Nivar, MD Cocaine Negative Normal Negative [facility] Comment on above: Performed By: #### L 300.3000 ####[facility] ([facility])[address], [place] [phone] Nivar, MD Opiates Negative Normal Negative [facility] Comment on above: Performed By: #### L 300.3000 ####[facility] ([facility])[address], [place] [phone] Nivar, MD Phencyclidine Negative Normal Negative [facility] Comment on above: Performed By: #### L 300.3000 ####[facility] ([facility])[address], [place] [phone] Nivar, MD Oxycodone Negative Normal Negative [facility] Comment on above: Performed By: #### L 300.3000 ####[facility] ([facility])[address], [place] [phone] Nivar, MD Comment Normal [facility] Comment on above: Result Comment: This drug of abuse screen is not intended for employmentrelated testing and is intended for use in clinicalmanagement of patients. Cut-off Concentrations for Positive ResultsPhencyclidine 25 ng/mLBenzodiazepines 200 ng/mLCocaine 300 ng/mLAmphetamines 1000 ng/mLCannabinoids 100 ng/mLOpiates 300 ng/mLBarbiturates 200 ng/mLOxycodone 100 ng/mL Performed By: #### L 300.3000 ####[facility] ([facility])[address], [place] [phone] Nivar, MD Urinalysis with Reflex Cultu reon 04-09-2018 Appearance Hazy [facility] Comment on above: Order Comment: Urine Source Urine, Unknown Collection Performed By: #### L 300.3000 ####[facility] ([facility])[address], [place] [phone] Nivar, MD Bacteria Trace Normal [facility] Comment on above: Order Comment: Urine Source Urine, Unknown Collection Performed By: #### L 300.3000 ####[facility] ([facility])[address] [phone] Nivar, MD Bilirubin Negative Normal Negative [facility] Comment on above: Order Comment: Urine Source Urine, Unknown Collection Performed By: #### L 300.3000 ####[facility] ([facility])[address] [phone] Nivar, MD Color Yellow Normal [facility] Comment on above: Order Comment: Urine Source Urine, Unknown Collection Performed By: #### L 300.3000 ####[facility] ([facility])[address], [place] [phone] Nivar, MD Epi,Squamous 6-10 High [facility] Comment on above: Order Comment: Urine Source Urine, Unknown Collection Performed By: #### L 300.3000 ####[facility] ([facility])[address] [place] [phone] Nivar, MD Glucose Negative Normal Negative [facility] Comment on above: Order Comment: Urine Source Urine, Unknown Collection Performed By: #### L 300.3000 ####[facility] ([facility])[address] [phone] Nivar, MD INR Coag RelTime (Bld) 0-2 Normal [facility] Comment on above: Order Comment: Urine Source Urine, Unknown Collection Performed By: #### L 300.3000 ####[facility] ([facility])[address] [phone] Nivar, MD Ketones Negative Normal Negative [facility] Comment on above: Order Comment: Urine Source Urine, Unknown Collection Performed By: #### L 300.3000 ####[facility] ([facility])[address] [phone] Nivar, MD Leukocytes Negative Normal Negative [facility] Comment on above: Order Comment: Urine Source Urine, Unknown Collection Performed By: #### L 300.3000 ####[facility] ([facility])[address] [phone] Nivar, MD Mucous Present Normal [facility] Comment on above: Order Comment: Urine Source Urine, Unknown Collection Performed By: #### L 300.3000 ####[facility] ([facility])[address] [phone] Nivar, MD Nitrites Negative Normal Negative [facility] Comment on above: Order Comment: Urine Source Urine, Unknown Collection Performed By: #### L 300.3000 ####[facility] ([facility])[address] [phone] Nivar, MD pH 6.0 Normal 5.0-8.0 [facility] Comment on above: Order Comment: Urine Source Urine, Unknown Collection Performed By: #### L 300.3000 ####[facility] ([facility])[address], [place] [phone] Nivar, MD Protein mass conc Negative Normal Negative [facility] Comment on above: Order Comment: Urine Source Urine, Unknown Collection Performed By: #### L 300.3000 ####[facility] ([facility])[address] [place] [phone] Nivar, MD Specific [place] 1.010 Normal 1.000-1.035 [facility] Comment on above: Order Comment: Urine Source Urine, Unknown Collection Performed By: #### L 300.3000 ####[facility] ([facility])[address] [place] [phone] Nivar, MD UA Reflex Culture No Normal [facility] Comment on above: Order Comment: Urine Source Urine, Unknown Collection Result Comment: Cult ure not done per lab protocol Performed By: #### L 300.3000 ####[facility] ([facility])[address] [place] [phone] Nivar, MD Urobilinogen <2.0 E.U./dL Normal 0.2-1.0 [facility] Comment on above: Order Comment: Urine Source Urine, Unknown Collection Performed By: #### L 300.3000 ####[facility] ([facility])[address] [place] [phone] Nivar, MD WBC 0-5 Normal [facility] Comment on above: Order Comment: Urine Source Urine, Unknown Collection Performed By: #### L 300.3000 ####[facility] ([facility])[address] [place] [phone] Nivar, MD Nonstress Test Reporton Nonstress Test Report [facility] Medical Records Patient: KAYLEEN KOVACS [address] : 1995 [place], [place] [address] Location: [facility] [phone] Unit #: [id number] Nonstress Test Report Lenora Peña CNM SUBJECTIVE: [...] 1658 < > Co-Signed by: on Normal [facility] CBC with Differentialon 03-04 Abs Baso Count 100 /cmm Normal 0-200 [facility] Comment on above: Performed By: #### L 300.3000 ####[facility] ([facility])[address], [place] [phone] Nivar, MD Abs Eos Count 100 /cmm Normal 0-500 [facility] Comment on above: Performed By: #### L 300.3000 ####[facility] ([facility])[address], [place] [phone] Nivar, MD Abs Weakley Count 800 /cmm Normal 0-800 [facility] Comment on above: Performed By: #### L 300.3000 ####[facility] ([facility])[address], [place] [phone] Nivar, MD Abs Neut Count 18791 /cmm High 8601-8886 [facility] Comment on above: Performed By: #### L 300.3000 ####[facility] ([facility])[address] [phone] Nivar, MD Basophils Auto #/vol (Bld) 0.8 % Normal 0-2 [facility] Comment on above: Performed By: #### L 300.3000 ####[facility] ([facility])[address], [place] [phone] Nivar, MD EOS-Auto Diff 0.9 % Normal 0-6 [facility] Comment on above: Performed By: #### L 300.3000 ####[facility] ([facility])[address], [place] [phone] Nivar, MD Erythrocyte distribution width Auto Ratio (RBC) 13.8 % Normal 12.0-16.0 [facility] Comment on above: Performed By: #### L 300.3000 ####[facility] ([facility])[address] [phone] Nivar, MD Hematocrit Auto Volume Fraction (Bld) 38.2 % Normal 35.0-44.0 [facility] Comment on above: Performed By: #### L 300.3000 ####[facility] ([facility])[address] [phone] Nivar, MD Hemoglobin mass conc (Bld) 12.4 g/dL Normal 12.0-15.0 [facility] Comment on above: Performed By: #### L 300.3000 ####[facility] ([facility])[address] [phone] Nivar, MD Hypochromasia 1+ Normal [facility] Comment on above: Performed By: #### L 300.3000 ####[facility] ([facility])[address] [phone] Nivar, MD Lymphocytes Auto #/vol (Bld) 2200 /cmm Normal 3031-2542 [facility] Comment on above: Performed By: #### L 300.3000 ####[facility] ([facility])[address] [place] [phone] Nivar, MD Lymphocytes/100 WBC Auto (Bld) 16.1 % Normal 15-45 [facility] Comment on above: Performed By: #### L 300.3000 ####[facility] ([facility])[address] [place] [phone] Nivar, MD MCH Auto Entitic mass (RBC) 26.7 pg Low 27.5-33.0 [facility] Comment on above: Performed By: #### L 300.3000 ####[facility] ([facility])[address] [place] [phone] Nivar, MD MCHC Auto mass conc (RBC) 32.4 g/dL Low 33.0-36.0 [facility] Comment on above: Performed By: #### L 300.3000 ####[facility] ([facility])[address] [place] [phone] Nivar, MD MCV Auto Entitic volume (RBC) 82.4 CU EHSAN Normal 80-97 [facility] Comment on above: Performed By: #### L 300.3000 ####[facility] ([facility])[address] [place] [phone] Nivar, MD Weakley- Auto Diff 5.9 % Normal 2-10 [facility] Comment on above: Performed By: #### L 300.3000 ####[facility] ([facility])[address], [place] [phone] Nivar, MD Neut-Auto Diff 76.3 % High 40-70 [facility] Comment on above: Performed By: #### L 300.3000 ####[facility] ([facility])[address] [phone] Nivar, MD NRBC-Auto 0.0 /100 WBC Normal <1 [facility] Comment on above: Performed By: #### L 300.3000 ####[facility] ([facility])[address] [place] [phone] Nivar, MD Platelets Auto #/vol (Bld) 437 th/cmm High 150-400 [facility] Comment on above: Performed By: #### L 300.3000 ####[facility] ([facility])[address] [phone] Nivar, MD RBC Auto #/vol (Bld) 4.63 mil/cmm Normal 4.00-5.10 [facility] Comment on above: Performed By: #### L 300.3000 ####[facility] ([facility])[address] [phone] Nivar, MD WBC Auto #/vol (Bld) 13.7 th/cmm High 4.4-10.5 [place] [facility] Comment [facility]: Performed By: #### L 300.3000 ####[facility] ([facility])[address] [place] [phone] Nivar, MD Comprehensive Metabolic Pane shayne 03-26-2018 Albumin mass conc 3.8 g/dL Normal 3.5-5.0 [facility] Comment on above: Performed By: #### L 300.3000 ####[facility] ([facility])[address] [place] [phone] Nivar, MD Albumin/Globulin mass ratio 1.3 {ratio} Low 1.5-2.5 [facility] Comment on above: Performed By: #### L 300.3000 ####[facility] ([facility])[address] [phone] Nivar, MD Alk Phos 85 IU/L Normal 39-118 [facility] Comment on above: Performed By: #### L 300.3000 ####[facility] ([facility])[address] [phone] Nivar, MD ALT/SGPT 12 IU/L Normal 10-40 [facility] Comment on above: Performed By: #### L 300.3000 ####[facility] ([facility])[address] [phone] Nivar, MD AST/SGOT 14 IU/L Low 15-41 [facility] Comment on above: Performed By: #### L 300.3000 ####[facility] ([facility])[address] [phone] Nivar, MD Bili,Total 0.7 mg/dL Normal 0.2-1.0 [facility] Comment on above: Performed By: #### L 300.3000 ####[facility] ([facility])[address] [phone] Nivar, MD Urea nitrogen mass conc mg/dL Low 7-20 [facility] Comment on above: Performed By: #### L 300.3000 ####[facility] ([facility])[address] [phone] Nivar, MD Anion gap 3 molar conc 11 mmol/L Normal 4-12 [facility] Comment on above: Performed By: #### L 300.3000 ####[facility] ([facility])[address], [place] [phone] Nivar, MD Calcium mass conc 9.0 mg/dL Normal 8.8-10.5 [facility] Comment on above: Performed By: #### L 300.3000 ####[facility] ([facility])[address] [place] [phone] Nivar, MD Chloride molar conc 101 mmol/L Normal 101-111 [facility] Comment on above: Performed By: #### L 300.3000 ####[facility] ([facility])[address] [place] [phone] Nivar, MD CO2 molar conc 22 mmol/L Normal 21-32 [facility] Comment on above: Performed By: #### L 300.3000 ####[facility] ([facility])[address] [place] [phone] Nivar, MD Creatinine mass conc 0.45 mg/dL Low 0.60-1.30 [facility] Comment on above: Performed By: #### L 300.3000 ####[facility] ([facility])[address] [place] [phone] Nivar, MD GFR/1.73 sq M predicted among non-blacks MDRD vol rate/area (S/P/Bld) mL/min/{1.73_m2} Normal [facility] Comment on above: Result Comment: 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 Height and weight are not factored. Performed By: #### L 300.3000 ####[facility] ([facility])[address] [place] [phone] Nivar, MD Glucose mass conc 80 mg/dL Normal 70-110 [facility] Comment on above: Result Comment: *Thi s reference range applies to fasting specimens only. Performed By: #### L 300.3000 ####[facility] ([facility])[address] [place] [phone] Nivar, MD Potassium molar conc 3.4 mmol/L Low 3.6-5.0 [facility] Comment on above: Performed By: #### L 300.3000 ####[facility] ([facility])[address] [place] [phone] Nivar, MD Protein mass conc 6.7 g/dL Normal 6.2-8.0 [facility] Comment on above: Performed By: #### L 300.3000 ####[facility] ([facility])[address] [place] [phone] Nivar, MD Sodium molar conc 134 mmol/L Low 135-145 [facility] Comment on above: Performed By: #### L 300.3000 ####[facility] ([facility])[address] [place] [phone] Nivar, MD Drug Screen Urineon 03-26-20 18 Amphetamines Negative Normal Negative [facility] Comment on above: Performed By: #### L 300.3000 ####[facility] ([facility])[address] [place] [phone] Nivar, MD Barbiturates Negative Normal Negative [facility] Comment on above: Performed By: #### L 300.3000 ####[facility] ([facility])[address] [place] [phone] Nivar, MD Benzodiazepines Negative Normal Negative [facility] Comment on above: Performed By: #### L 300.3000 ####[facility] ([facility])[address], [place] [phone] Nivar, MD Cannabinoids Positive High Negative [facility] Comment on above: Performed By: #### L 300.3000 ####[facility] ([facility])[address], [place] [phone] Nivar, MD Cocaine Negative Normal Negative [facility] Comment on above: Performed By: #### L 300.3000 ####[facility] ([facility])[address], [place] [phone] Nivar, MD Opiates Negative Normal Negative [facility] Comment on above: Performed By: #### L 300.3000 ####[facility] ([facility])[address] [phone] Nivar, MD Phencyclidine Negative Normal Negative [facility] Comment on above: Performed By: #### L 300.3000 ####[facility] ([facility])[address] [phone] Nivar, MD Oxycodone Negative Normal Negative [facility] Comment on above: Performed By: #### L 300.3000 ####[facility] ([facility])[address] [phone] Nivar, MD Comment Normal [facility] Comment on above: Result Comment: This drug of abuse screen is not intended for employmentrelated testing and is intended for use in clinicalmanagement of patients. Cut-off Concentrations for Positive ResultsPhencyclidine 25 ng/mLBenzodiazepines 200 ng/mLCocaine 300 ng/mLAmphetamines 1000 ng/mLCannabinoids 100 ng/mLOpiates 300 ng/mLBarbiturates 200 ng/mLOxycodone 100 ng/mL Performed By: #### L 300.3000 ####[facility] ([facility])[address], [place] [phone] Nivar, MD Uric Acidon 03-26-2018 Urate mass conc 3.8 mg/dL Normal 2.6-8.0 [facility] Comment on above: Performed By: #### L 300.3000 ####[facility] ([facility])[address], [place] [phone] Nivar, MD Urinalysis with Reflex Cultu reon 03-26-2018 Appearance Hazy [facility] Comment on above: Order Comment: Urine Source Urine, Unknown Collection Performed By: #### L 300.3000 ####[facility] ([facility])[address] [phone] Nivar, MD Bacteria 1+ [facility] Comment on above: Order Comment: Urine Source Urine, Unknown Collection Performed By: #### L 300.3000 ####[facility] ([facility])[address] [phone] Nivar, MD Bilirubin Negative Normal Negative [facility] Comment on above: Order Comment: Urine Source Urine, Unknown Collection Performed By: #### L 300.3000 ####[facility] ([facility])[address], [place] [phone] Nivar, MD Color Yellow Normal [facility] Comment on above: Order Comment: Urine Source Urine, Unknown Collection Performed By: #### L 300.3000 ####[facility] ([facility])[address], [place] [phone] Nivar, MD Epi,Squamous 21-50 [facility] Comment on above: Order Comment: Urine Source Urine, Unknown Collection Performed By: #### L 300.3000 ####[facility] ([facility])[address], [place] [phone] Nivar, MD Glucose Negative Normal Negative [facility] Comment on above: Order Comment: Urine Source Urine, Unknown Collection Performed By: #### L 300.3000 ####[facility] ([facility])[address] [phone] Nivar, MD INR Coag RelTime (Bld) 0-2 Normal [facility] Comment on above: Order Comment: Urine Source Urine, Unknown Collection Performed By: #### L 300.3000 ####[facility] ([facility])[address] [phone] Nivar, MD Ketones Negative Normal Negative [facility] Comment on above: Order Comment: Urine Source Urine, Unknown Collection Performed By: #### L 300.3000 ####[facility] ([facility])[address] [phone] Nivar, MD Leukocytes Trace High Negative [facility] Comment on above: Order Comment: Urine Source Urine, Unknown Collection Performed By: #### L 300.3000 ####[facility] ([facility])[address] [phone] Nivar, MD Mucous Present Normal [facility] Comment on above: Order Comment: Urine Source Urine, Unknown Collection Performed By: #### L 300.3000 ####[facility] ([facility])[address] [phone] Nivar, MD Nitrites Negative Normal Negative [facility] Comment on above: Order Comment: Urine Source Urine, Unknown Collection Performed By: #### L 300.3000 ####[facility] ([facility])[address] [phone] Nivar, MD pH 7.0 Normal 5.0-8.0 [facility] Comment on above: Order Comment: Urine Source Urine, Unknown Collection Performed By: #### L 300.3000 ####[facility] ([facility])[address] [phone] Nivar, MD Protein mass conc Negative Normal Negative [facility] Comment on above: Order Comment: Urine Source Urine, Unknown Collection Performed By: #### L 300.3000 ####[facility] ([facility])[address] [place] [phone] Nivar, MD Specific [place] 1.011 Normal 1.000-1.035 [facility] Comment on above: Order Comment: Urine Source Urine, Unknown Collection Performed By: #### L 300.3000 ####[facility] ([facility])[address] [place] [phone] Nivar, MD UA Reflex Culture No Normal [facility] Comment on above: Order Comment: Urine Source Urine, Unknown Collection Result Comment: Cult ure not done per lab protocol Performed By: #### L 300.3000 ####[facility] ([facility])[address] [place] [phone] Nivar, MD Urobilinogen <2.0 E.U./dL Normal 0.2-1.0 [facility] Comment on above: Order Comment: Urine Source Urine, Unknown Collection Performed By: #### L 300.3000 ####[facility] ([facility])[address] [place] [phone] Nivar, MD WBC 0-5 Normal [facility] Comment on above: Order Comment: Urine Source Urine, Unknown Collection Performed By: #### L 300.3000 ####[facility] ([facility])[address] [place] [phone] Nivar, MD Urine Protein/Creatinine Rat ioon 03-26-2018 Creatinine mass conc (U) 61.6 mg/dL Normal [facility] Comment on above: Performed By: #### L 300.3000 ####[facility] ([facility])[address] [place] [phone] Nivar, MD Total Protein, Random Urine 7.0 mg/dL Normal [facility] Comment on above: Performed By: #### L 300.3000 ####[facility] ([facility])[address] [place] [phone] Nivar, MD Urine Protein/Creatinine Ratio 0.1 g/1.73m2 Normal <0.15 [facility] Comment on above: Performed By: #### L 300.3000 ####[facility] ([facility])[address] [place] [phone] Nivar, MD Urine culture, reflexon 12-31 Urine culture, reflex No growth(<10,000 CFU/ml)of urinary tract pathogens. Tobias present are not the usual etiologic agents of a urinary tract infection and probably represent vaginal,urethral, or skin tobias. Contact Microbiology at extension [phone] if further information is needed. ORGANISM 1: Mixed tobias- 3 species presentColony count >100,000 CFU/ml Normal [facility] Comment on above: Performed By: #### M 120.0050 ####[facility] ([facility])[address] [place] [phone] Nivar, MD HIV 1&2 Evaluationon 018 HIV 1&2 Evaluation Nonreactive Normal Nonreactive [facility] Comment on above: Performed By: #### L 800.0100, L800.0300, L800.0400, L800.4806 ####[facility] ([facility])[address] [place] [phone] Nivar, MD Hemoglobin A1Con 01-12-2018 Glucose mass conc 97 mg/dL Normal [facility] Comment on above: Result Comment: ana mated Average Glucose(eAG) calculation has been modifiedto reflect guidelines established by the [place] [employer]. This change does not affect the %A1c,howeverindividuals that closely monitor the eAG may notice a slightshift in their results. Performed By: #### L 404.6700 ####[facility] ([facility])[address] [place], [place] [phone] Nivar, MD Hemoglobin A1c/Hemoglobin.total mass fraction (Bld) 5.0 % Normal 4.4-6.4 [facility] Comment on above: Performed By: #### L 404.6700 ####[facility] ([facility])[address] [place] [phone] Nivar, MD Hepatitis B Surface Agon Hepatitis B Surface Ag Nonreactive Normal Nonreactive [facility] Comment on above: Performed By: #### L 800.0100, L800.0300, L800.0400, L800.4806 ####[facility] ([facility])[address] [place] [phone] Nivar, MD RPRon 01-12-2018 RPR / VDRL NonReactive Normal NonReactive [facility] Comment on above: Performed By: #### L 800.0100, L800.0300, L800.0400, L800.4806 ####[facility] ([facility])[address] [place] [phone] Nivar, MD Rubella IgG Antibodyon 01-12 Rubella IgG Antibody Reactive Normal [facility] Comment on above: Performed By: #### L 800.0100, L800.0300, L800.0400, L800.4806 ####[facility] ([facility])[address], [place] [phone] Nivar, MD Complete Blood Counton 01-11 Abs Baso Count 100 /cmm Normal 0-200 [facility] Comment on above: Performed By: #### L 100.0000 ####[facility] ([facility])[address] [place] [phone] Nivar, MD Abs Eos Count 100 /cmm Normal 0-500 [facility] Comment on above: Performed By: #### L 100.0000 ####[facility] ([facility])[address] [phone] Nivar, MD Abs Weakley Count 1200 /cmm High 0-800 [facility] Comment on above: Performed By: #### L 100.0000 ####[facility] ([facility])[address] [phone] Nivar, MD Abs Neut Count 91198 /cmm High 3135-5731 [facility] Comment on above: Performed By: #### L 100.0000 ####[facility] ([facility])[address] [phone] Nivar, MD Basophils Auto #/vol (Bld) 0.3 % Normal 0-2 [facility] Comment on above: Performed By: #### L 100.0000 ####[facility] ([facility])[address] [phone] Nivar, MD EOS-Auto Diff 0.8 % Normal 0-6 [facility] Comment on above: Performed By: #### L 100.0000 ####[facility] ([facility])[address] [phone] Nivar, MD Erythrocyte distribution width Auto Ratio (RBC) 13.4 % Normal 12.0-16.0 [facility] Comment on above: Performed By: #### L 100.0000 ####[facility] ([facility])[address] [phone] Nivar, MD Hematocrit Auto Volume Fraction (Bld) 38.1 % Normal 35.0-44.0 [facility] Comment on above: Performed By: #### L 100.0000 ####[facility] ([facility])[address] [phone] Nivar, MD Hemoglobin mass conc (Bld) 12.8 g/dL Normal 12.0-15.0 [facility] Comment on above: Performed By: #### L 100.0000 ####[facility] ([facility])[address] [place] [phone] Nivar, MD Hypochromasia 1+ Normal [facility] Comment on above: Performed By: #### L 100.0000 ####[facility] ([facility])[address] [place], [place] [phone] Nivar, MD Lymphocytes Auto #/vol (Bld) 2000 /cmm Normal 8277-4382 [facility] Comment on above: Performed By: #### L 100.0000 ####[facility] ([facility])[address] [place] [phone] Nivar, MD Lymphocytes/100 WBC Auto (Bld) 12.0 % Low 15-45 [facility] Comment on above: Performed By: #### L 100.0000 ####[facility] ([facility])[address] [place] [phone] Nivar, MD MCH Auto Entitic mass (RBC) 26.8 pg Low 27.5-33.0 [facility] Comment on above: Performed By: #### L 100.0000 ####[facility] ([facility])[address] [place] [phone] Nivar, MD MCHC Auto mass conc (RBC) 33.6 g/dL Normal 33.0-36.0 [facility] Comment on above: Performed By: #### L 100.0000 ####[facility] ([facility])[address] [place] [phone] Nivar, MD MCV Auto Entitic volume (RBC) 80.0 CU EHSAN Normal 80-97 [facility] Comment on above: Performed By: #### L 100.0000 ####[facility] ([facility])[address] [phone] Nivar, MD Weakley- Auto Diff 7.2 % Normal 2-10 [facility] Comment on above: Performed By: #### L 100.0000 ####[facility] ([facility])[address] [phone] Nivar, MD Neut-Auto Diff 79.7 % High 40-70 [facility] Comment on above: Performed By: #### L 100.0000 ####[facility] ([facility])[address] [phone] Nivar, MD NRBC-Auto 0.0 /100 WBC Normal <1 [facility] Comment on above: Performed By: #### L 100.0000 ####[facility] ([facility])[address] [phone] Nivar, MD Platelets Auto #/vol (Bld) 413 th/cmm High 150-400 [facility] Comment on above: Performed By: #### L 100.0000 ####[facility] ([facility])[address] [phone] Nivar, MD RBC Auto #/vol (Bld) 4.77 mil/cmm Normal 4.00-5.10 [facility] Comment on above: Performed By: #### L 100.0000 ####[facility] ([facility])[address], [place] [phone] Nivar, MD WBC Auto #/vol (Bld) 16.9 th/cmm High 4.4-10.5 [facility] Comment on above: Performed By: #### L 100.0000 ####[facility] ([facility])[address] [phone] Nivar, MD Drug Screen Urineon 01-12-20 18 Oxycodone Negative Normal Negative [facility] Comment on above: Performed By: #### L 402.4000 ####[facility] ([facility])[address], [place] [phone] Nivar, MD Amphetamines Negative Normal Negative [facility] Comment on above: Performed By: #### L 402.4000 ####[facility] ([facility])[address], [place] [phone] Nivar, MD Barbiturates Negative Normal Negative [facility] Comment on above: Performed By: #### L 402.4000 ####[facility] ([facility])[address], [place] [phone] Nivar, MD Benzodiazepines Negative Normal Negative [facility] Comment on above: Performed By: #### L 402.4000 ####[facility] ([facility])[address], [place] [phone] Nivar, MD Cannabinoids Positive High Negative [facility] Comment on above: Performed By: #### L 402.4000 ####[facility] ([facility])[address], [place] [phone] Nivar, MD Cocaine Negative Normal Negative [facility] Comment on above: Performed By: #### L 402.4000 ####[facility] ([facility])[address], [place] [phone] Nivar, MD Opiates Negative Normal Negative [facility] Comment on above: Performed By: #### L 402.4000 ####[facility] ([facility])[address], [place] [phone] Nivar, MD Phencyclidine Negative Normal Negative [facility] Comment on above: Performed By: #### L 402.4000 ####[facility] ([facility])[address] [phone] Nivar, MD Comment Normal [facility] Comment on above: Result Comment: This drug of abuse screen is not intended for employmentrelated testing and is intended for use in clinicalmanagement of patients. Cut-off Concentrations for Positive ResultsPhencyclidine 25 ng/mLBenzodiazepines 200 ng/mLCocaine 300 ng/mLAmphetamines 1000 ng/mLCannabinoids 100 ng/mLOpiates 300 ng/mLBarbiturates 200 ng/mLOxycodone 100 ng/mL Performed By: #### L 402.4000 ####[facility] ([facility])[address] [place] [phone] Nivar, MD Type and Screen/Prenatalon 0 01-11-2018 AB Screen (IAT) Negative Normal [facility] Comment on above: Performed By: #### B 100.0800 ####[facility] ([facility])[address] [place] [phone] Nivar, MD ABO and Rh group Nom (Bld) O Positive Normal [facility] Comment on above: Performed By: #### B 100.0800 ####[facility] ([facility])[address] [place] [phone] Nivar, MD Urinalysis with Reflex Cultu reon 01-11-2018 Appearance Cloudy High [facility] Comment on above: Order Comment: Urine Source Urine, Unknown Collection Performed By: #### L 300.3000 ####[facility] ([facility])[address] [place] [phone] Nivar, MD Bacteria Trace Normal [facility] Comment on above: Order Comment: Urine Source Urine, Unknown Collection Performed By: #### L 300.3000 ####[facility] ([facility])[address] [place] [phone] Nivar, MD Bilirubin Negative Normal Negative [facility] Comment on above: Order Comment: Urine Source Urine, Unknown Collection Performed By: #### L 300.3000 ####Main Laboratory ([facility])[address] [phone] Nivar, MD Color Yellow Normal [facility] Comment on above: Order Comment: Urine Source Urine, Unknown Collection Performed By: #### L 300.3000 ####Main Laboratory ([facility])[address] [phone] Nivar, MD Epi,Squamous 11-20 High [facility] Comment on above: Order Comment: Urine Source Urine, Unknown Collection Performed By: #### L 300.3000 ####Main Laboratory ([facility])[address] [phone] Nivar, MD Glucose Negative Normal Negative [facility] Comment on above: Order Comment: Urine Source Urine, Unknown Collection Performed By: #### L 300.3000 ####Main Laboratory ([facility])[address] [phone] Nivar, MD INR Coag RelTime (Bld) 0-2 Normal [facility] Comment on above: Order Comment: Urine Source Urine, Unknown Collection Performed By: #### L 300.3000 ####Main Laboratory ([facility])[address] [phone] Nivar, MD Ketones Negative Normal Negative [facility] Comment on above: Order Comment: Urine Source Urine, Unknown Collection Performed By: #### L 300.3000 ####Main Laboratory ([facility])[address] [phone] Nivar, MD Leukocytes Moderate High Negative [facility] Comment on above: Order Comment: Urine Source Urine, Unknown Collection Performed By: #### L 300.3000 ####Main Laboratory ([facility])[address] [phone] Nivar, MD Mucous Present Normal [facility] Comment on above: Order Comment: Urine Source Urine, Unknown Collection Performed By: #### L 300.3000 ####Main Laboratory ([facility])[address] [phone] Nivar, MD Nitrites Negative Normal Negative [facility] Comment on above: Order Comment: Urine Source Urine, Unknown Collection Performed By: #### L 300.3000 ####Main Laboratory ([facility])[address] [phone] Nivar, MD pH 6.0 Normal 5.0-8.0 [facility] Comment on above: Order Comment: Urine Source Urine, Unknown Collection Performed By: #### L 300.3000 ####Main Laboratory ([facility])[address] [phone] Nivar, MD Protein mass conc Negative Normal Negative [facility] Comment on above: Order Comment: Urine Source Urine, Unknown Collection Performed By: #### L 300.3000 ####Main Laboratory ([facility])[address] [phone] Nivar, MD Specific [place] 1.016 Normal 1.000-1.035 [facility] Comment on above: Order Comment: Urine Source Urine, Unknown Collection Performed By: #### L 300.3000 ####Main Laboratory ([facility])[address] [phone] Nivar, MD UA Reflex Culture Yes Normal [facility] Comment on above: Order Comment: Urine Source Urine, Unknown Collection Result Comment: Cult ure done per lab protocol Performed By: #### L 300.3000 ####Main Laboratory ([facility])[address] [phone] Nivar, MD Urobilinogen <2.0 E.U./dL Normal 0.2-1.0 [facility] Comment on above: Order Comment: Urine Source Urine, Unknown Collection Performed By: #### L 300.3000 ####Main Laboratory ([facility])[address] [place], [place] [phone] Nivar, MD WBC 0-5 Normal [facility] Comment on above: Order Comment: Urine Source Urine, Unknown Collection Performed By: #### L 300.3000 ####Main Laboratory ([facility])[address] [place], [place] [phone] Nivar, MD Culture-Urineon 11-30-2017 Urine culture, bacteria SEE BELOW Normal [facility] Comment on above: Order Comment: Order ing Doctor: Jeffrey Salgadoformed by [address] Result Comment: Sour ce: urineSite: clean voidCollected: 11/30/17 08:29Current Antibiotics: not statedAntibiotics comment: STATUS OF ORDERED AND REPORTED TESTSURINE CULTURE FINAL 12/01/17URINE CULTURE FINAL 12/01/17 09: Growth of Contaminants. The mixture of organisms present are not a common cause of urinary tract infections and probably represent skin tobias or distal urethral tobias. Performed By: #### 1 082470, 8170972 ####[address] [place], [place] [phone]#### 3463605, 9851282, 1932915, 1238447, 8119945, 8039561, 4755796 ####Please refer to Result Comment for Performing Lab Location Urinalysis w/Reflex C and So n 11-30-2017 SG >=1.030 Normal 1.010-1.025 [facility] Comment on above: Order Comment: Order ing Doctor: Jeffrey Salgadoformed by [address] Performed By: #### 1 602163, 7788893 ####[address] [place], [place] 93878680-958-4527#### 2221644, 8631507, 5795768, 4143475, 9481575, 4989935, 5040917 ####Please refer to Result Comment for Performing Lab Location UABLD Negative Normal NEGATIVE [facility] Comment on above: Order Comment: Order ing Doctor: Jeffrey Salgadoformed by [facility] [address] [place] [address] Performed By: #### 1 664546, 0497935 ####[address] [place], [place] 20024804-840-7370#### 4328242, 3776142, 4851399, 0347760, 4597127, 4594358, 8377188 ####Please refer to Result Comment for Performing Lab Location UAGLU Negative Normal NEGATIVE [facility] Comment on above: Order Comment: Order ing Doctor: Jeffrey Salgadoformed by [facility] [place] [address] Performed By: #### 1 912119, 8628878 ####[address] [place], [place] [phone]#### 7150274, 8695504, 0751094, 4703967, 2012471, 9577892, 4923406 ####Please refer to Result Comment for Performing Lab Location UAKET >=80 Normal NEGATIVE [facility] Comment on above: Order Comment: Order ing Doctor: Jeffrey Salgadoformed by [facility] [address] [place] [address] Performed By: #### 1 942128, 8586979 ####[address] [place], [place] [phone]#### 4644745, 1174919, 0199595, 9465618, 1969116, 5843881, 8373881 ####Please refer to Result Comment for Performing Lab Location UALEUK Negative Normal NEGATIVE [facility] Comment on above: Order Comment: Order ing Doctor: Jeffrey Salgadoformed by [employer] [place] [address] Performed By: #### 1 166058, 9207346 ####[address] [place], [place] [phone]#### 2500714, 9630499, 0586528, 5481342, 5231266, 4924157, 8019344 ####Please refer to Result Comment for Performing Lab Location UANIT Negative Normal NEGATIVE [facility] Comment on above: Order Comment: Order ing Doctor: Jeffrey Salgadoformed by [facility] [address] [place] [address] Performed By: #### 1 090887, 6318856 ####[address] [place], [place] 46876263-790-4752#### 1104357, 6907310, 0002016, 3954405, 0010256, 2016345, 4476839 ####Please refer to Result Comment for Performing Lab Location UAPH 6.0 Normal 5.0-8.0 [facility] Comment on above: Order Comment: Order ing Doctor: Jeffrey Salgadoformed by [employer] [place] [address] Performed By: #### 1 837588, 7198753 ####[address] [place], [place] 24457857-283-0846#### 0820557, 9627990, 6038417, 8563661, 3075184, 7298423, 6399974 ####Please refer to Result Comment for Performing Lab Location UAPRO 30 mg/dL Normal NEGATIVE [facility] Comment on above: Order Comment: Order ing Doctor: Jeffrey Salgadoformed by [facility] [address] [place] [address] Performed By: #### 1 944075, 9322991 ####[address] [place], [place] [phone]#### 7250105, 2502101, 5818900, 2637377, 5673203, 5983229, 2281189 ####Please refer to Result Comment for Performing Lab Location UAURO 2.0 E.U./dL Normal 0.2-1.0 [facility] Comment on above: Order Comment: Order ing Doctor: Jeffrey Salgadoformed by [facility] [address] [place] [address] Performed By: #### 1 522085, 4283977 ####[address] [place] [address] [phone]#### 7433171, 8861859, 1377739, 3145316, 5435169, 5472783, 4909144 ####Please refer to Result Comment for Performing Lab Location UCLAR CLOUDY Normal CLEAR [facility] Comment on above: Order Comment: Order ing Doctor: [place] [address] Performed By: #### 1 591986, 7395721 ####[address] [place] [address] [phone]#### 4610524, 8107661, 8383340, 2891098, 1750390, 9359694, 2604637 ####Please refer to Result Comment for Performing Lab Location UMIC YES Normal NO [facility] Comment on above: Order Comment: Order ing Doctor: [place] [address] Performed By: #### 1 753943, 0674618 ####[address] [place] [address] [phone]#### 0806687, 2193722, 1800795, 3893848, 1954313, 4634883, 8357585 ####Please refer to Result Comment for Performing Lab Location Urine, color YELLOW Normal YELLOW [facility] Comment on above: Order Comment: Order ing Doctor: Jeffrey Salgadoformed by [facility] [address] [place] [address] Performed By: #### 1 841138, 6259970 ####[address] [place], [place] [phone]#### 4790916, 8105206, 4642277, 3637029, 1617689, 8152054, 6676805 ####Please refer to Result Comment for Performing Lab Location Urine, urobilinogen SMALL Normal NEGATIVE [facility] Comment on above: Order Comment: Order ing Doctor: Jeffrey Salgadoformed by [facility] [address] [place] [address] Performed By: #### 1 462958, 4008550 ####[address] [place], [place] 54891591-075-3837#### 9538410, 9965713, 7070801, 1944574, 4529273, 5862448, 0962790 ####Please refer to Result Comment for Performing Lab Location Urinalysis-Microscopic Refle x C AND Son 11-30-2017 JAMSHID empty Normal NONE SEEN [facility] Comment on above: Order Comment: Order ing Doctor: [place] [address] Performed By: #### 1 701273, 5233959 ####[address] [place], [place] 58983504-908-1521#### 5409710, 3552160, 4567832, 0156096, 2263756, 5718939, 0653684 ####Please refer to Result Comment for Performing Lab Location AMORPH empty Normal NONE SEEN [facility] Comment on above: Order Comment: Order ing Doctor: [place] [address] Performed By: #### 1 247642, 4017784 ####[address] [place], [place] 72118017-983-3282#### 2244701, 0513044, 8709907, 5917505, 4436141, 1279215, 0536216 ####Please refer to Result Comment for Performing Lab Location CALC OX empty Normal NONE SEEN [facility] Comment on above: Order Comment: Order ing Doctor: Jeffrey Salgadoformed by [facility] [address] [place] [address] Performed By: #### 1 349300, 5457991 ####[address] [place], [place] [phone]#### 5061232, 0161439, 4072612, 8749149, 9731762, 4231163, 9798361 ####Please refer to Result Comment for Performing Lab Location Cholesterol empty Normal NONE SEEN [facility] Comment on above: Order Comment: Order ing Doctor: [place] [address] Performed By: #### 1 800213, 5378360 ####[address] [place], [place] [phone]#### 8924662, 5170315, 0131260, 9896630, 1195496, 6782186, 6133916 ####Please refer to Result Comment for Performing Lab Location COARSE GRAN empty Normal NONE SEEN [facility] Comment on above: Order Comment: Order ing Doctor: [place] [address] Performed By: #### 1 793875, 8420114 ####[address] [place], [place] [phone]#### 2904096, 3878534, 8448591, 1056045, 8485937, 5295134, 0111391 ####Please refer to Result Comment for Performing Lab Location CTSIND YES Normal NO [facility] Comment on above: Order Comment: Order ing Doctor: Jeffrey Salgadoformed by [facility] [place] [address] Performed By: #### 1 447499, 5230791 ####[address] [place], [place] 38141034-826-8652#### 8687989, 4279026, 0729171, 3077171, 8405505, 8969304, 3141783 ####Please refer to Result Comment for Performing Lab Location Erythrocytes (RBC) empty Normal NONE SEEN [facility] Comment on above: Order Comment: Order ing Doctor: [place] [address] Performed By: #### 1 012823, 5554531 ####[address] [place], [place] [phone]#### 0212389, 8489770, 9864163, 2191830, 6170861, 7689220, 8900195 ####Please refer to Result Comment for Performing Lab Location FINE GRAN empty Normal NONE SEEN [facility] Comment on above: Order Comment: Order ing Doctor: Jeffrey Salgadoformed by [facility] [place] [address] Performed By: #### 1 053332, 6041534 ####[address] [place], [place] [phone]#### 7483242, 6774979, 2826611, 3895064, 4725127, 8990104, 4530942 ####Please refer to Result Comment for Performing Lab Location HYAL CAST empty Normal 0-2 [facility] Comment on above: Order Comment: Order ing Doctor: Jeffrey Salgadoformed by [employer] [address] Performed By: #### 1 277528, 4143222 ####[address] [place], [place] 11065107-731-6305#### 5581318, 6632354, 5518847, 9525826, 7629488, 7505922, 9926441 ####Please refer to Result Comment for Performing Lab Location SPERM PRESENT Normal NONE SEEN [facility] Comment on above: Order Comment: Order ing Doctor: Jeffrey Salgadoformed by [facility] [address] [place], [place] [address] Performed By: #### 1 961915, 6356898 ####[address] [place], [place] 05907233-261-9136#### 6687578, 5493666, 8563544, 5001333, 6751458, 7081943, 7815413 ####Please refer to Result Comment for Performing Lab Location TRIP PHOS empty Normal NONE SEEN [facility] Comment on above: Order Comment: Order ing Doctor: Jeffrey Salgadoformed by [facility] [address] [place] [address] Performed By: #### 1 759327, 9498953 ####[address] [place], [place] 10309486-860-3270#### 7321847, 8405768, 7585938, 7675348, 9212722, 0733141, 2559174 ####Please refer to Result Comment for Performing Lab Location UCAST NONE SEEN Normal NONE SEEN [facility] Comment on above: Order Comment: Order ing Doctor: Jfefrey Salgadoformed by [facility] [address] [place] [address] Performed By: #### 1 469250, 9640246 ####[address] [place], [place] 68914465-955-4012#### 0572798, 2046764, 4977132, 8241496, 2672488, 1457382, 4787422 ####Please refer to Result Comment for Performing Lab Location UCRYS NONE SEEN Normal NONE SEEN [facility] Comment on above: Order Comment: Order ing Doctor: Jeffrey Salgadoformed by [facility] [address] [place] [address] Performed By: #### 1 153038, 0569982 ####[address] [facility], [place] [phone]#### 2169968, 0902996, 7946768, 2920357, 2256300, 5640458, 7057706 ####Please refer to Result Comment for Performing Lab Location UMUC NONE SEEN Normal NONE SEEN [facility] Comment on above: Order Comment: Order ing Doctor: Jeffrey Salgadoformed by [facility] [address] [place] [address] Performed By: #### 1 835894, 6933112 ####[address] [place], [place] 48258895-150-6016#### 6064582, 8888081, 6275123, 3331439, 6344619, 6153185, 1372038 ####Please refer to Result Comment for Performing Lab Location UOTH empty Normal NONE [facility] Comment on above: Order Comment: Order ing Doctor: Jeffrey Salgadoformed by [facility] [address] [place] [address] Performed By: #### 1 078712, 5729513 ####[address] [place], [place] 62214453-766-6891#### 4298812, 6546506, 1215130, 7914133, 9987106, 7771137, 2543066 ####Please refer to Result Comment for Performing Lab Location Urate empty Normal NONE SEEN [facility] Comment on above: Order Comment: Order ing Doctor: Jeffrey Salgadoformed by [facility] [address] [place] [address] Performed By: #### 1 421568, 9550585 ####[address] [place], [place] 66406596-425-8416#### 2902055, 2629226, 8298243, 7144175, 6113586, 5254228, 1560554 ####Please refer to Result Comment for Performing Lab Location UREPI empty Normal NONE SEEN [facility] Comment on above: Order Comment: Order ing Doctor: Jeffrey Salgadoformed by [facility] [address] [place] [address] Performed By: #### 1 201526, 6182840 ####[address] [place], [place] [phone]#### 6398263, 1408738, 3968426, 5107084, 7308276, 5562949, 3060531 ####Please refer to Result Comment for Performing Lab Location Urine, bacteria in sediment 4+ Normal NONE SEEN [facility] Comment on above: Order Comment: Order ing Doctor: [place] [address] Performed By: #### 1 228565, 0274579 ####[address] [place], [place] 14553010-097-9738#### 7009417, 9461055, 0679639, 4069123, 6290397, 0949399, 1442782 ####Please refer to Result Comment for Performing Lab Location Urine, erythrocytes 5-10 Normal NONE SEEN [facility] Comment on above: Order Comment: Order ing Doctor: [place] [address] Performed By: #### 1 656529, 7345175 ####[address] [place], [place] 87675821-989-7323#### 2576550, 8909978, 5034796, 4208979, 9703448, 9371627, 8394243 ####Please refer to Result Comment for Performing Lab Location Urine, leukocytes 5-10 Normal 0-5 [facility] Comment on above: Order Comment: Order ing Doctor: [place] [address] Performed By: #### 1 247504, 3962010 ####[address] [place], [place] 51451879-052-3017#### 7744393, 0155557, 8154385, 0799462, 2763238, 8704168, 6516743 ####Please refer to Result Comment for Performing Lab Location Urine, yeast presence in sediment empty Normal NONE SEEN [facility] Comment on above: Order Comment: Order ing Doctor: Jeffrey Salgadoformed by [facility] [address] [place] [address] Performed By: #### 1 115517, 9549362 ####[address] [place], [place] 57135513-934-4314#### 6276020, 4690699, 3933826, 0766816, 1413828, 2275540, 4022209 ####Please refer to Result Comment for Performing Lab Location USEPI 25-50 Normal NONE SEEN [facility] Comment on above: Order Comment: Order ing Doctor: Jeffrey Salgadoformed by [facility] [address] [place] [address] Performed By: #### 1 938708, 7933492 ####[address] [place], [place] 02393197-803-2673#### 2141687, 3152413, 9502173, 9596544, 2051287, 1055361, 8054793 ####Please refer to Result Comment for Performing Lab Location UTEPI empty Normal NONE SEEN [facility] Comment on above: Order Comment: Order ing Doctor: Jeffrey Salgadoformed by [employer] [address] Performed By: #### 1 271899, 9920410 ####[address] [place], [place] 88006084-148-7759#### 6813501, 4101893, 5442981, 4178781, 8306321, 7217570, 8514755 ####Please refer to Result Comment for Performing Lab Location WAXY CASTS empty Normal NONE SEEN [facility] Comment on above: Order Comment: Order ing Doctor: Jeffrey Salgadoformed by [employer] [address] Performed By: #### 1 158270, 7028674 ####[address] [place], [place] 40987087-588-1693#### 9914201, 8306082, 7699580, 5655898, 4517359, 1306348, 3665432 ####Please refer to Result Comment for Performing Lab Location WBC (Leukocytes) empty Normal NONE SEEN [facility] Comment on above: Order Comment: Order ing Doctor: [place] [address] Performed By: #### 1 880087, 3512158 ####[address] [place], [place] [phone]#### 2943333, 2064190, 5610426, 6688045, 3699118, 0938399, 3442486 ####Please refer to Result Comment for Performing Lab Location Chlamydia trachomatis Neisse shasha gonorrhoeae by Ampon 11-22-2017 C. TRACHOMATIS RT-PCR NOT DETECTED Normal [facility] Comment on above: Order Comment: Order ing Doctor: [place] [address] Result Comment: No C hlamydia trachomatis detected by Real Time - PolymeraseChain Reaction. This testing method is contraindicatedduring antibiotic therapy.This test is intended for medical purposes only and is notvalid for the evaluation of suspected sexual abuse or for otherforensic purposes. In certain contexts, cultures maybe requiredto meet applicable laws and regulations for the diagnosis ofC. trachomatis infections. Performed By: #### 1 461374, 4487717 ####[address] [place], [place] 10607388-689-6971#### 6550601, 3162307, 1055486, 0422802, 0626362, 0688957, 3036727 ####Please refer to Result Comment for Performing Lab Location N. GONORRHOEAE RT-PCR NOT DETECTED Normal [facility] Comment on above: Order Comment: Order ing Doctor: Jeffrey Salgadoformed by [address] Result Comment: No N eissera gonorrhoeae detected by Real Time - PolymeraseChain Reaction. This testing method is contraindicatedduring antibiotic therapy.This test is intended for medical purposes only and is notvalid for the evaluation of suspected sexual abuse or for otherforensic purposes. In certain contexts, cultures maybe requiredto meet applicable laws and regulations for the diagnosis ofN. gonorrhoeae infections. Performed By: #### 1 004267, 8701832 ####[address] 70583220-544-3538#### 6987474, 2580578, 3238261, 7869956, 1995505, 3276948, 9193754 ####Please refer to Result Comment for Performing Lab Location SOURCE URINE Normal [facility] Comment on above: Order Comment: Order ing Doctor: [place] [address] Performed By: #### 1 429822, 2741738 ####[address] 67812565-437-1078#### 5813058, 1019814, 0621625, 7415711, 6771897, 9589094, 2762101 ####Please refer to Result Comment for Performing Lab Location Auto Differentialon 11-16-19 18 Basophils/100 WBC Auto (Bld) 1.0 % Normal 0.0-3.0 [facility] Comment on above: Order Comment: Order ing Doctor: [place] [address] Performed By: #### 1 741762, 8967317 ####[address] [phone]#### 5707725, 8353330, 6056284, 9206253, 9581909, 4068088, 2067828 ####Please refer to Result Comment for Performing Lab Location Eosinophils/100 leukocytes 1.1 % Normal 0.0-4.0 [facility] Comment on above: Order Comment: Order ing Doctor: Jeffrey Salgadoformed by [facility] [place] [address] Performed By: #### 1 928218, 6961662 ####[address] [place], [place] 60372529-500-0304#### 0709717, 9249576, 1917842, 7217679, 5869532, 0283737, 3748985 ####Please refer to Result Comment for Performing Lab Location Lymphocytes/100 leukocytes 22.5 % Normal 20.5-51.1 [facility] Comment on above: Order Comment: Order ing Doctor: Jeffrey Salgadoformed by [facility] Zet [facility] [address] [place] [address] Performed By: #### 1 280161, 1226052 ####[address] [place], [place] 87983714-305-3795#### 7332403, 9787837, 0963931, 4921711, 6825579, 9097823, 8299090 ####Please refer to Result Comment for Performing Lab Location Monocytes/100 leukocytes 7.4 % Normal 0.0-13.0 [facility] Comment on above: Order Comment: Order ing Doctor: Jeffrey Salgadoformed by [facility] [place] [address] Performed By: #### 1 506421, 9021434 ####[address] [place], [place] [phone]#### 7884919, 2139812, 0201534, 0162668, 5688352, 9249031, 2150683 ####Please refer to Result Comment for Performing Lab Location SCAN NO Normal NO [facility] Comment on above: Order Comment: Order ing Doctor: Jeffrey Salgadoformed by [employer] [facility] [address] [place] [address] Performed By: #### 1 501908, 6534267 ####[address] [place], [place] 04561393-702-0862#### 3069631, 9930222, 7491540, 9665686, 3989384, 2085461, 1682742 ####Please refer to Result Comment for Performing Lab Location Segmented Neutrophils/100 leukocytes 68.0 % Normal 42.2-75.2 [facility] Comment on above: Order Comment: Order ing Doctor: [place] [address] Performed By: #### 1 637636, 0149057 ####[address] [place], [place] 81042805-929-2502#### 1080662, 5536141, 1091032, 4039980, 3753528, 1726647, 4996346 ####Please refer to Result Comment for Performing Lab Location Complete Blood Counton 11-15 Erythrocyte distribution width Auto Ratio (RBC) 14.0 % Normal 11.5-14.5 [facility] Comment on above: Order Comment: Order ing Doctor: [place] [address] Performed By: #### 1 917527, 1785403 ####[address] [place], [place] 60210720-635-7344#### 9156184, 1853213, 2340016, 2505220, 0319526, 7352290, 3901665 ####Please refer to Result Comment for Performing Lab Location Erythrocytes (RBC) 5.19 mil/cumm Normal 4.20-5.40 [facility] Comment on above: Order Comment: Order ing Doctor: Jeffrey Salgadoformed by [facility] [place] [address] Performed By: #### 1 106158, 1116800 ####[address] [place], [place] [phone]#### 5009444, 8563792, 4185222, 4678723, 8116600, 3270747, 1194317 ####Please refer to Result Comment for Performing Lab Location Hematocrit (HCT) 42.1 % Normal 37.0-47.0 [facility] Comment on above: Order Comment: Order ing Doctor: Jeffrey Salgadoformed by [facility] [address] [place] [address] Performed By: #### 1 068087, 6435258 ####[address] [place], [place] 31476488-013-1848#### 6955776, 6235360, 1395110, 2826348, 7956621, 3941510, 0037047 ####Please refer to Result Comment for Performing Lab Location Hemoglobin mass conc (Bld) 13.7 g/dL Normal 12.0-16.0 [facility] Comment on above: Order Comment: Order ing Doctor: [place] [address] Performed By: #### 1 842999, 0239625 ####[address] [place] [address] [phone]#### 5777198, 9441757, 0425602, 8554694, 8857070, 1952472, 7192210 ####Please refer to Result Comment for Performing Lab Location MCH 26.3 pg Low 28.0-32.0 [facility] Comment on above: Order Comment: Order ing Doctor: [place] [address] Performed By: #### 1 674548, 7584868 ####[address] [place], [place] 74936344-065-6134#### 3222417, 4951738, 2821162, 2678631, 2881278, 7694467, 7641808 ####Please refer to Result Comment for Performing Lab Location MCHC mass conc (RBC) 32.5 g/dL Low 33.0-37.0 [facility] Comment on above: Order Comment: Order ing Doctor: [place] [address] Performed By: #### 1 453534, 4440824 ####[address] [place], [place] 12548636-888-1679#### 8865746, 6165121, 7196247, 0205053, 9423859, 4363171, 1767377 ####Please refer to Result Comment for Performing Lab Location MCV 81.0 fL Normal 81.0-99.0 [facility] Comment on above: Order Comment: Order ing Doctor: Jeffrey Salgadoformed by [facility] [address] [place] [address] Performed By: #### 1 724461, 7793561 ####[address] [place], [place] 16618864-840-4900#### 5664888, 6927640, 8998923, 1136710, 3260889, 9472854, 8965618 ####Please refer to Result Comment for Performing Lab Location Platelets 400 thou/cumm Normal 130-400 [facility] Comment on above: Order Comment: Order ing Doctor: [place] [address] Performed By: #### 1 721460, 5133085 ####[address] [place], [place] [phone]#### 5616553, 4018384, 5176821, 6077794, 1045725, 7167142, 2842401 ####Please refer to Result Comment for Performing Lab Location WBC (Leukocytes) 12.8 thou/cumm High 4.8-10.8 [facility] Comment on above: Order Comment: Order ing Doctor: [place] [address] Performed By: #### 1 708757, 4993862 ####[address] [place], [place] 17678488-586-7770#### 7491743, 0635793, 7735822, 6552342, 5460359, 9084496, 6956765 ####Please refer to Result Comment for Performing Lab Location Quantitative BHCGon 11-16-19 18 [place] [address].0 m[IU]/mL High 0.0-5.0 [facility] Comment on above: Order Comment: Order ing Doctor: Jeffrey Salgadoformed by [employer] [facility] [address] [place] [address], [id number] Result Comment: VIANNEY TITATIVE CHRISTIANACAREG Gestational Age hCG mIU/mL 0.2 - 1 [...] - 5 mIU/mL Performed By: #### 1 179280, 4902160 ####[address] [place], [place] 94088931-199-2346#### 8649782, 6351274, 6974499, 0578347, 6828323, 9427121, 1357504 ####Please refer to Result Comment for Performing Lab Location Type and Screenon 11-15-2017 ABO O Normal [facility] Comment on above: Order Comment: Order ing Doctor: Jeffrey Salgadoformed by [facility] [address] [place] [address], [id number] Performed By: #### 1 184485, 3467103 ####[address] [place], [place] 60605079-556-5051#### 9779353, 6148921, 8642583, 8799071, 0971608, 9501502, 4869581 ####Please refer to Result Comment for Performing Lab Location ABS Negative Normal NEGATIVE [facility] Comment on above: Order Comment: Order ing Doctor: Jeffrey Salgadoformed by [facility] [address] [place] [address], [id number] Performed By: #### 1 503828, 4461630 ####[address] [place], [place] 31752452-256-3359#### 8522058, 4894430, 5913074, 5402243, 8745159, 0922749, 1016870 ####Please refer to Result Comment for Performing Lab Location Rh type Positive [facility] Comment on above: Order Comment: Order ing Doctor: Jeffrey Salgadoformed by [facility] [place] [address] Performed By: #### 1 032101, 8407563 ####[address] [place], [place] 61072168-537-0141#### 7643420, 7236179, 7143639, 6441641, 0036201, 6874497, 4667946 ####Please refer to Result Comment for Performing Lab Location TTS COMPLETED [facility] Comment on above: Order Comment: Order ing Doctor: Jeffrey Salgadoformed by [facility] [place] [address] Performed By: #### 1 220934, 8218005 ####[address] [place], [place] 29129665-433-7365#### 8467871, 9710652, 7721679, 0048269, 0841803, 9566837, 3875675 ####Please refer to Result Comment for Performing Lab Location TTSEXP 11/18/2017 [facility] Comment on above: Order Comment: Order ing Doctor: Jeffrey Salgadoformed by [facility] [address] Result Comment: Resu lt amended from (11/22/17) (11/15/2017 20:13) to (11/18/2017) by SADIE. Performed By: #### 1 939578, 9772390 ####[address] [place], [place] 67344179-746-9433#### 9152606, 1436581, 2083310, 9117970, 7405646, 9038896, 7373034 ####Please refer to Result Comment for Performing Lab Location US-TRANSVAGINAL (OB)on 11-15 US-TRANSVAGINAL (OB) PROCEDURE: ULS - US-TRANSVAGINAL (OB) ([id number])Relevant History: bleedingRESULT: Patient Name: KAYLEEN Mejias : 1995Examination: US-TRANSVAGINAL (OB)Date of Exam: 11/15/2017 7:16 PMOrdering Provider: YO COLEMANomparison: NoneRelevant Clinical Information: bleeding.TECHNIQUE: grayscale sonographic imaging was performed.DISCUSSION:En dometrial canal: Single intrauterine .Gestational sac: UnremarkableYolk sac: Yolk sac is present.Placenta and amniotic fluid: Gestational age is too early for theevaluation of the placenta. Amniotic fluid is grossly normal. Nosubchorionic hemorrhage apparent.Uterus: Homogeneous with no evidence of leiomyomata.Maternal cervix: Closed, Pole:Anatomy: Embryonic/ anatomy is appropriate for the firsttrimester. heart rate: 162 bpm.Seaside rump length: 27.5 mm.Gestational age: 9 weeks and 6 days.EDC: 06/14/2018.Ovaries and adenxa: Unremarkable bilateral ovaries.Cul de sac: There is no significant free fluid visualizedIMPRESSION:Li ve IUP with no abnormality demonstrated.Profession al Interpretation by RadiologyElectronically SignedBy: Hector Tovar MDOn: 11/15/2017 7:27 PMTechnologist Initials: [facility] [place] Completion Time: Nov 15 2017 7:16PMTranscribed By: DENITA Nov 15 2017 7:28PReading Physician: HECTOR TOVAR M.D.Electronically Signed by: HECTOR TOVAR M.D. on: Nov 15 2017 7:28P Normal [facility] Comment on above: Order Comment: Order ing Doctor: Jeffrey Salgadoformed by [facility] [address] [place], [place] [address] Test, Urineon - UPREG Positive Normal [facility] Comment on above: Order Comment: Order ing Doctor: Jeffrey Salgadoformed by [facility] [address] [place], [place] [address] Performed By: #### 1 422319, 3298462 ####[address] [place], [place] [phone]#### 9029170, 6276442, 3333857, 8343923, 7143808, 5725784, 5568134 ####Please refer to Result Comment for Performing Lab Location MRI SPINE/CERVICAL W/O CONTR Valery 10-19-2017 MRI SPINE/CERVICAL W/O CONTRAST PROCEDURE: MRI - MRI SPINE/CERVICAL W/O CONTRAST ([id number])Relevant History: strain neck muscles, initial encounterRESULT: Patient Name: KAYLEEN KOVACSPatient : 1995Examination: MRI SPINE/CERVICAL W/O CONTRASTDate of Exam: 10/19/2017 4:20 PMOrdering Provider: YO GASTELUMomparison: Plain radiographs dated 02/26/2016Relevant Clinical Information: strain neck muscles, initial encounterCONTRAST: None.TECHNIQUE: MRI imaging of the cervical spine without intravenouscontrast. Multiplanar, multisequence MR images were obtained.DISCUSSION:Bon es: Vertebral body height is preserved throughout the [...] preserved. No central canal stenosis. Noneural foraminal narrowing.IMPRESSION:1. Mild reversal of the normal cervical lordosis. No acute bonyabnormality identified2. Minimal degenerative change. No significant spinal canal or neuralforaminal stenosis.3. Bilateral cervical adenopathy. The findings are nonspecific andcould be related to an inflammatory or infectious process. Neoplasticprocess is not excluded. Correlate clinically.Professional Interpretation by RadiologyElectronically SignedBy: Russ Varghese MDOn: 10/19/2017 6:59 PMTechnologist Initials: [id number] Completion Time: Oct 19 2017 4:20PMTranscribed By: DENITA Oct 19 2017 7:00PReading Physician: RUSS VARGHESE M.D.Electronically Signed by: RUSS VARGHESE M.D. on: Oct 19 2017 7:00P Normal [facility] Comment on above: Order Comment: Order ing Doctor: Timoteo Salgado MRI SPINE/LUMBAR W/O CONTRAS Ton 10-19-2017 MRI SPINE/LUMBAR W/O CONTRAST PROCEDURE: MRI - MRI SPINE/LUMBAR W/O CONTRAST ([id number])Relevant History: strain lumbar region initial encounterRESULT: Patient Name: KAYLEEN KOVACSPatient : 1995Examination: MRI SPINE/LUMBAR W/O CONTRASTDate of Exam: 10/19/2017 4:20 PMOrdering Provider: YO GASTELUMomparison: NoneRelevant Clinical Information: strain lumbar region initial encounterCONTRAST: None.TECHNIQUE: MRI imaging of the lumbar spine without intravenouscontrast. Multiplanar, multisequence MR images were obtained.DISCUSSION:Bon es: Vertebral body height is preserved throughout the lumbar spine.No acute compression fracture identified. No acute bony abnormalityidentified.A lignment: Mild levoscoliosis of the lumbar spine. Alignment [...] desiccation and degenerative disc disease at the L4-X4pixut5. Disc bulge at the L4-L5 level with mild broad-based central bulgeor protrusion. Mild effacement of anterior thecal sac and facethypertrophy. No significant stenosis.3. Mild levoscoliosis of the lumbar spine.Professional Interpretation by RadiologyElectronically SignedBy: Russ Varghese MDOn: 10/19/2017 6:59 PMTechnologist Initials: [id number] Completion Time: Oct 19 2017 4:20PMTranscribed By: DENITA Oct 19 2017 7:00PReading Physician: RUSS VARGHESE M.D.Electronically Signed by: RUSS VARGHESE M.D. on: Oct 19 2017 7:00P [facility] Comment on above: Order Comment: Order ing Doctor: Timoteo Salgado CHEST PA AND LATERALon 08-15 CHEST PA AND LATERAL PROCEDURE: XRA - CH EST PA AND LATERAL ([id number])Relevant History: FeverRESULT: Patient Name: KAYLEEN KOVACSPatient : 1995Examination: CHEST PA AND LATERALDate of Exam: 08/15/2017 8:51 AMOrdering Provider: DONNELL ELLIS, DOComparison: 08/27/2016Relevant Clinical Information: Flulike symptoms, fever, shortness ofbreath, chest pain, smokerNUMBER OF VIEWS: Two viewsDISCUSSION: The heart is normal in size and configuration. Themediastinum appears normal. No pulmonary infiltrations or masses arepresent. The pulmonary vasculature appears normal. The thoracicskeleton appears unremarkable.IMPRESSION :No acute cardiopulmonary disease.Electronically SignedBy: Tavares Flores MDOn: 08/15/2017 8:54 AMTechnologist Initials: [email or web address] [id number] Completion Time: Aug 15 2017 8:51AMTranscribed By: DENITA Aug 15 2017 8:55AReading Physician: TAVARES FLORES M.D.Electronically Signed by: TAVARES FLORES M.D. on: Aug 15 2017 8:55A Normal [facility] Comment on above: Order Comment: Order ing Doctor: Timoteo Salgado Culture-Throat/Noseon 2017 THROAT/NOSE CULTURE SEE BELOW Normal [facility] Comment on above: Order Comment: Order ing Doctor: Timoteo Salgado Result Comment: Sour ce: throatSite:Collected: 08/15/17 08:40Current Antibiotics: not statedAntibiotics comment: STATUS OF ORDERED AND REPORTED TESTSTHROAT/NOSE CULTURE FINAL 08/17/17THROAT/NOSE CULTURE FINAL 08/17/17 08: Normal tobias- lqgxzyozkxa63/15/18 Normal tobias Performed By: #### 1 853996, 7688158 ####[address] [place], [place] 34638564-061-7925#### 9580392, 7137765, 5910818, 7916232, 7532839, 7298887, 1738267 ####Please refer to Result Comment for Performing Lab Location Group A Rapid Strepon 2017 SS Negative Normal NEGATIVE [facility] Comment on above: Order Comment: Order ing Doctor: Timoteo Salgado Performed By: #### 1 323036, 6179562 ####[address] [place], [place] 80177006-901-5578#### 5245118, 7851733, 6428467, 9625415, 2510253, 0242576, 5643020 ####Please refer to Result Comment for Performing Lab Location Culture-Urineon 06-30-2017 Urine culture, bacteria SEE BELOW Normal [facility] Comment on above: Order Comment: Order ing Doctor: Timoteo Salgado Result Comment: Sour ce: urineSite: clean voidCollected: 06/30/17 12:34Current Antibiotics: noneAntibiotics comment: STATUS OF ORDERED AND REPORTED TESTSURINE CULTURE FINAL 07/02/17URINE CULTURE FINAL 07/02/17 06:51 Organism 01 Escherichia coli Lequire count: >100,000 CFU/mL Organism 01-esccolAntibiotic EHSAN Intrp [...] mg q 12 h 4.6Trimethoprim/Matthews <=20 S XU936luSWF/800mgSMX q 34r4-0ZDB/36-89O50-77ZQT/97SM IV 160mgTMP/800mgSMX q 8 h9TMP/105SMXCefuroxime I IV [...] PDR or pharmacist. Performed By: #### 1 213587, 0945444 ####[address] [place], [place] 17326224-647-8905#### 2904500, 4340294, 6799627, 6198916, 2462950, 5931375, 6374012 ####Please refer to Result Comment for Performing Lab Location Test, Urineon 12-2 UPREG Negative [facility] Comment on above: Order Comment: Order ing Doctor: Timoteo Salgado Performed By: #### 1 552160, 1413154 ####[address] [place], [place] 36966639-290-4793#### 1559704, 2851390, 4779707, 1012089, 6817177, 1206512, 7145289 ####Please refer to Result Comment for Performing Lab Location [id number] Cancelled by Lab [facility] Comment on above: Result Comment: CANC ELLED Performed By: #### 1 830708, 9384873 ####[address] [place], [place] 14131344-407-1619#### 0021487, 1286098, 9890244, 3112286, 2397475, 9415630, 8508469 ####Please refer to Result Comment for Performing Lab Location Urinalysis w/Reflex C and So n 06-30-2017 SG 1.015 Normal 1.010-1.025 [facility] Comment on above: Order Comment: Order ing Doctor: Timoteo Salgado Performed By: #### 1 120985, 3318350 ####[address] [place], [place] 81303156-307-8308#### 1569172, 2927534, 8328821, 4758008, 9727958, 2297535, 0099516 ####Please refer to Result Comment for Performing Lab Location UABLD LARGE Normal NEGATIVE [facility] Comment on above: Order Comment: Order ing Doctor: Timoteo Salgado Performed By: #### 1 006843, 4520209 ####[address] [place], [place] 29172598-112-9944#### 4497935, 7254979, 4824047, 4046533, 7435308, 3899940, 5078747 ####Please refer to Result Comment for Performing Lab Location UAGLU Negative Normal NEGATIVE [facility] Comment on above: Order Comment: Order ing Doctor: Timoteo Salgado Performed By: #### 1 732985, 6294111 ####[address] [place], [place] 00348600-505-3691#### 2165905, 4178745, 9227174, 4022392, 2988097, 7214566, 6039522 ####Please refer to Result Comment for Performing Lab Location UAKET 15 mg/dL Normal NEGATIVE [facility] Comment on above: Order Comment: Order ing Doctor: Timoteo Salgado Performed By: #### 1 684247, 2132989 ####[address] [place], [place] 61738647-757-6376#### 8464517, 6372871, 5304977, 9711082, 5077107, 5482372, 6909848 ####Please refer to Result Comment for Performing Lab Location UALEUK MODERATE Normal NEGATIVE [facility] Comment on above: Order Comment: Order ing Doctor: Timoteo Salgado Performed By: #### 1 598016, 8454848 ####[address] [place], [place] 54343894-540-1796#### 0035545, 8824796, 8754810, 8871257, 0251281, 5622500, 6676319 ####Please refer to Result Comment for Performing Lab Location UANIT Positive Normal NEGATIVE [facility] Comment on above: Order Comment: Order ing Doctor: Timoteo Salgado Performed By: #### 1 264593, 7899880 ####[address] [place], [place] 35610748-569-0586#### 5018714, 2286099, 5301859, 8751818, 0351675, 9254910, 4358854 ####Please refer to Result Comment for Performing Lab Location UAPH 7.0 Normal 5.0-8.0 [facility] Comment on above: Order Comment: Order ing Doctor: Timoteo Salgado Performed By: #### 1 930433, 2397305 ####[address] [place], [place] 18111810-368-0682#### 5481199, 2255575, 8053914, 8472847, 3998533, 4613449, 2620576 ####Please refer to Result Comment for Performing Lab Location UAPRO >=300 Normal NEGATIVE [facility] Comment on above: Order Comment: Order ing Doctor: Timoteo Salgado Performed By: #### 1 523167, 9856924 ####[address] [place], [place] 37071704-188-2578#### 7850335, 8208417, 5922445, 4948478, 3633013, 1526125, 8731684 ####Please refer to Result Comment for Performing Lab Location UAURO 4.0 E.U./dL Normal 0.2-1.0 [facility] Comment on above: Order Comment: Order ing Doctor: Timoteo Salgado Performed By: #### 1 188600, 9920136 ####[address] [place], [place] 32873388-464-7660#### 8184687, 2522510, 0056416, 7444798, 2814644, 3696397, 3475078 ####Please refer to Result Comment for Performing Lab Location UCLAR TURBID Normal CLEAR [facility] Comment on above: Order Comment: Order ing Doctor: Timoteo Salgado Performed By: #### 1 153837, 6504634 ####[address] [place], [place] 36757344-906-2504#### 1536329, 7079806, 0684163, 3818821, 6307311, 3408734, 5266528 ####Please refer to Result Comment for Performing Lab Location UMIC YES Normal NO [facility] Comment on above: Order Comment: Order ing Doctor: Timoteo Salgado Performed By: #### 1 260726, 2010118 ####[address] [place], [place] 63380948-767-0378#### 6767206, 0319172, 6368567, 7698075, 8656351, 5072304, 6645063 ####Please refer to Result Comment for Performing Lab Location Urine, color BROWN Normal YELLOW [facility] Comment on above: Order Comment: Order ing Doctor: Timoteo Salgado Performed By: #### 1 683801, 1346524 ####[address] [place], [place] 24387165-484-3867#### 6661836, 1938145, 1260895, 2948859, 9641075, 8876662, 9317334 ####Please refer to Result Comment for Performing Lab Location Urine, urobilinogen LARGE Normal NEGATIVE [facility] Comment on above: Order Comment: Order ing Doctor: Timoteo Salgado Performed By: #### 1 964127, 5192595 ####[address] [place], [place] 57142274-705-4712#### 0122167, 3159365, 2046308, 0866442, 3617276, 4780493, 1245234 ####Please refer to Result Comment for Performing Lab Location Cancelled by Lab Normal [facility] Comment on above: Result Comment: CANC ELLED Performed By: #### 1 298204, 0580944 ####[address] [place], [place] 68397469-859-6766 Urinalysis-Microscopic Refle x C AND Son 06-30-2017 JAMSHID empty Normal NONE SEEN [facility] Comment on above: Order Comment: Order ing Doctor: Timoteo Salgado Performed By: #### 1 505936, 1113058 ####[address] [place], [place] 69011879-040-0776#### 4171142, 4015630, 8083552, 7103402, 5961845, 4706380, 4257612 ####Please refer to Result Comment for Performing Lab Location AMORPH empty Normal NONE SEEN [facility] Comment on above: Order Comment: Order ing Doctor: Timoteo Salgado Performed By: #### 1 409282, 3314423 ####[address] [place], [place] 26143965-724-0138#### 4963907, 6983830, 5910592, 1346938, 3464802, 6885856, 7272763 ####Please refer to Result Comment for Performing Lab Location CALC OX empty Normal NONE SEEN [facility] Comment on above: Order Comment: Order ing Doctor: Timoteo Salgado Performed By: #### 1 189188, 6488080 ####[address] [place], [place] 60773751-454-3840#### 9120135, 0434823, 4364489, 4347507, 0162005, 6933441, 4230190 ####Please refer to Result Comment for Performing Lab Location Cholesterol empty Normal NONE SEEN [facility] Comment on above: Order Comment: Order ing Doctor: Timoteo Salgado Performed By: #### 1 404838, 1537279 ####[address] [place], [place] 61057829-265-9691#### 7962875, 2012550, 4544480, 4871933, 4385837, 3225838, 0821859 ####Please refer to Result Comment for Performing Lab Location COARSE GRAN empty Normal NONE SEEN [facility] Comment on above: Order Comment: Order ing Doctor: Timoteo Salgado Performed By: #### 1 033172, 9531532 ####[address] [place] [address] 73405245-622-9529#### 2871093, 7392204, 3392183, 4706122, 6607608, 7697266, 9898393 ####Please refer to Result Comment for Performing Lab Location CTSIND YES Normal NO [facility] Comment on above: Order Comment: Order ing Doctor: Timoteo Salgado Performed By: #### 1 587733, 5747473 ####[address] [place], [place] 97500123-163-0695#### 7751750, 0438712, 8634588, 4964052, 6715270, 4593129, 8340133 ####Please refer to Result Comment for Performing Lab Location Erythrocytes (RBC) empty Normal NONE SEEN [facility] Comment on above: Order Comment: Order ing Doctor: Timoteo Salgado Performed By: #### 1 962240, 9483290 ####[address] [place], [place] 42182232-589-5806#### 3796687, 5711673, 9242481, 6418005, 8467100, 2340875, 9511209 ####Please refer to Result Comment for Performing Lab Location FINE GRAN empty Normal NONE SEEN [facility] Comment on above: Order Comment: Order ing Doctor: Timoteo Salgado Performed By: #### 1 720686, 4879995 ####[address] [place], [place] 21624705-632-3792#### 4868130, 4618879, 4464536, 7175419, 3124236, 0544386, 0965027 ####Please refer to Result Comment for Performing Lab Location HYAL CAST empty Normal 0-2 [facility] Comment on above: Order Comment: Order ing Doctor: Timoteo Salgado Performed By: #### 1 501079, 5581481 ####[address] [place], [place] 54157830-971-9486#### 3342256, 5736672, 2341844, 6970529, 5069085, 7922308, 4104595 ####Please refer to Result Comment for Performing Lab Location SPERM empty Normal NONE SEEN [facility] Comment on above: Order Comment: Order ing Doctor: Timoteo Salgado Performed By: #### 1 824518, 9268972 ####[address] [place], [place] 60805651-603-3996#### 9827020, 7475781, 4956401, 3247741, 3325559, 8151126, 7158516 ####Please refer to Result Comment for Performing Lab Location TRIP PHOS empty Normal NONE SEEN [facility] Comment on above: Order Comment: Order ing Doctor: Timoteo Salgado Performed By: #### 1 517615, 3141075 ####[address] [place], [place] [id number]#### 5887392, 7539957, 6313957, 2774893, 9589389, 3232442, 6415171 ####Please refer to Result Comment for Performing Lab Location UCAST NONE SEEN Normal NONE SEEN [facility] Comment on above: Order Comment: Order ing Doctor: Timoteo Salgado Performed By: #### 1 492890, 8466929 ####[address] [place], [place] 62333253-514-5243#### 0733380, 2933052, 7482002, 7244280, 1424261, 7730422, 9967832 ####Please refer to Result Comment for Performing Lab Location UCRYS NONE SEEN Normal NONE SEEN [facility] Comment on above: Order Comment: Order ing Doctor: Timoteo Salgado Performed By: #### 1 931062, 1071823 ####[address] [place], [place] 62649360-260-5065#### 0776723, 7556044, 7027781, 6557171, 1817525, 1636622, 4913272 ####Please refer to Result Comment for Performing Lab Location UMUC NONE SEEN Normal NONE SEEN [facility] Comment on above: Order Comment: Order ing Doctor: Timoteo Salgado Performed By: #### 1 252997, 5449574 ####[address] [place], [place] 76654857-148-7323#### 7651843, 0576162, 2903178, 4663416, 7261933, 5189194, 6540096 ####Please refer to Result Comment for Performing Lab Location UOTH empty Normal NONE [facility] Comment on above: Order Comment: Order ing Doctor: Timoteo Salgado Performed By: #### 1 086170, 0358510 ####[address] [place], [place] 15977343-790-1753#### 7634647, 8708988, 8916383, 3087730, 7803840, 3429427, 5417063 ####Please refer to Result Comment for Performing Lab Location Urate empty Normal NONE SEEN [facility] Comment on above: Order Comment: Order ing Doctor: Timtoeo Salgado Performed By: #### 1 818621, 3677795 ####[address] [place], [place] 97258791-871-8914#### 9512987, 4467251, 6311730, 9260841, 6617816, 8898406, 7297143 ####Please refer to Result Comment for Performing Lab Location UREPI empty Normal NONE SEEN [facility] Comment on above: Order Comment: Order ing Doctor: Timoteo Salgado Performed By: #### 1 710346, 1638118 ####[address] [place], [place] 90011512-349-5313#### 5745232, 5248857, 0139989, 8000336, 6592186, 3438141, 2185687 ####Please refer to Result Comment for Performing Lab Location Urine, bacteria in sediment 2+ Normal NONE SEEN [facility] Comment on above: Order Comment: Order ing Doctor: Timoteo Salgado Performed By: #### 1 713317, 5208615 ####[address] [place], [place] 95474739-282-1672#### 4794429, 1163275, 9796008, 8673023, 4922390, 2387146, 5041499 ####Please refer to Result Comment for Performing Lab Location Urine, erythrocytes /uL Normal NONE SEEN [facility] Comment on above: Order Comment: Order ing Doctor: Timoteo Salgado Performed By: #### 1 219238, 1265900 ####[address] [place], [place] 05905011-440-1772#### 3795410, 2504769, 5540364, 8612904, 8491932, 6372626, 1830119 ####Please refer to Result Comment for Performing Lab Location Urine, leukocytes /uL Normal 0-5 [facility] Comment on above: Order Comment: Order ing Doctor: Timoteo Salgado Performed By: #### 1 024649, 4290450 ####[address] [place], [place] 01779260-317-8058#### 5461364, 8428367, 4665169, 7571002, 1876253, 9468870, 7556764 ####Please refer to Result Comment for Performing Lab Location Urine, yeast presence in sediment empty Normal NONE SEEN [facility] Comment on above: Order Comment: Order ing Doctor: Timoteo Salgado Performed By: #### 1 685092, 8182061 ####[address] [place], [place] 53128067-441-1341#### 1455716, 5239046, 4954341, 6622118, 8349907, 2154473, 0655723 ####Please refer to Result Comment for Performing Lab Location USEPI NONE SEEN Normal NONE SEEN [facility] Comment on above: Order Comment: Order ing Doctor: Timoteo Salgado Performed By: #### 1 983560, 0318354 ####[address] [place], [place] 44387860-942-1679#### 8020475, 5483748, 7513848, 5396775, 5944554, 8735882, 9178457 ####Please refer to Result Comment for Performing Lab Location UTEPI empty Normal NONE SEEN [facility] Comment on above: Order Comment: Order ing Doctor: Timoteo Salgado Performed By: #### 1 609060, 4880553 ####[address] [place], [place] 93458745-608-1712#### 7429486, 6535998, 5837300, 3495460, 8804865, 3241294, 5042183 ####Please refer to Result Comment for Performing Lab Location WAXY CASTS empty Normal NONE SEEN [facility] Comment on above: Order Comment: Order ing Doctor: Timoteo Salgado Performed By: #### 1 911260, 0149730 ####[address] [place], [place] 07598827-698-1797#### 0108446, 6028513, 7755704, 8159304, 9996630, 5670971, 6202017 ####Please refer to Result Comment for Performing Lab Location WBC (Leukocytes) empty Normal NONE SEEN [facility] Comment on above: Order Comment: Order ing Doctor: Timoteo Salgado Performed By: #### 1 173976, 2843923 ####[address] [place], [place] 66359288-750-3319#### 1880847, 9097916, 0716133, 5104507, 2168375, 7680704, 8760825 ####Please refer to Result Comment for Performing Lab Location Basic Metabolic Profileon Calcium 9.3 mg/dL Normal 8.4-10.2 [facility] Comment on above: Order Comment: Order ing Doctor: Timoteo Salgado Performed By: #### 1 237722, 5896186 ####[address] [place], [place] 64814528-180-6254#### 4365585, 1510656, 0960777, 6944560, 4131646, 8968040, 0783993 ####Please refer to Result Comment for Performing Lab Location Chloride 105 mmol/L Normal 98-107 [facility] Comment on above: Order Comment: Order ing Doctor: Timoteo Salgado Performed By: #### 1 328829, 7123851 ####[address] [place], [place] 45640725-949-1534#### 0876468, 8976478, 3459582, 7538872, 3530735, 6737168, 3894537 ####Please refer to Result Comment for Performing Lab Location CO2 27 mmol/L Normal 22-31 [facility] Comment on above: Order Comment: Order ing Doctor: Timoteo Salgado Performed By: #### 1 626634, 2764287 ####[address] [place], [place] 40391059-196-3687#### 2490439, 7629574, 5363487, 7849658, 8274011, 4561303, 5677973 ####Please refer to Result Comment for Performing Lab Location Creatinine 0.7 mg/dL Normal 0.4-1.1 [facility] Comment on above: Order Comment: Order ing Doctor: Timoteo Salgado Performed By: #### 1 546773, 7043665 ####[address] [place], [place] 53813894-448-7538#### 7773635, 4070075, 5155421, 3180702, 3172763, 3868600, 7401740 ####Please refer to Result Comment for Performing Lab Location eGFR (non-black) mL/min/{1.73_m2} Normal [facility] Comment on above: Order [...] unstable creatinine concentrations Performed By: #### 1 789487, 7056263 ####[address] [place], [place] 20628820-905-6411#### 3242340, 5927721, 8419078, 5044212, 6919641, 4524447, 0325356 ####Please refer to Result Comment for Performing Lab Location Glucose mass conc 90 mg/dL Normal 70-100 [facility] Comment on above: Order Comment: [...] concordant for diagnosis of diabetes. *based on [place] [employer] recommendations 2012 Performed By: #### 1 576642, 3184869 ####[address] [place], [place] 83012510-099-9725#### 7104523, 7303036, 8859718, 0996317, 0602866, 1513245, 0536610 ####Please refer to Result Comment for Performing Lab Location Potassium molar conc 4.3 mmol/L Normal 3.5-5.1 [facility] Comment on above: Order Comment: Order ing Doctor: Timoteo Salgado Performed By: #### 1 478124, 5473769 ####[address] [place], [place] 47434028-324-2259#### 7431740, 8576071, 0889429, 2900052, 5997868, 6804283, 5068502 ####Please refer to Result Comment for Performing Lab Location Sodium 140 mmol/L Normal 136-145 [facility] Comment on above: Order Comment: Order ing Doctor: Timoteo Salgado Performed By: #### 1 561587, 6522952 ####[address] [place], [place] 19123291-165-1393#### 3660229, 0718629, 8400981, 6658626, 1996234, 4019243, 7668095 ####Please refer to Result Comment for Performing Lab Location Urea nitrogen 9 mg/dL Normal 7-22 [facility] Comment on above: Order Comment: Order ing Doctor: Timoteo Salgado Performed By: #### 1 978633, 7271233 ####[address] [place], [place] 11746839-399-7194#### 5118399, 2953629, 9175345, 0384959, 4424538, 8266843, 6826019 ####Please refer to Result Comment for Performing Lab Location Dehydroepiandrosterone Sulfa rody, Serumon 02-23-2017 DHEA SULFATE 369 ug/dL Normal 63-373 [facility] Comment on above: Order Comment: Order ing Doctor: Timoteo Salgado Result Comment: REFE RENCE INTERVAL: DHEASAccess complete set of age- and/or gender-specific referenceintervals for this test in the [facility] Test Directory([facility]).Performed by [facility],[address] [place] [address],[place] [address] fje.[facility], Kai Bland MD - Lab. Director Performed By: #### 1 177385, 9652131 ####[address] [place], [place] 06749496-468-6690#### 8910032, 5359069, 9598912, 7845979, 8615537, 9953200, 5067560 ####Please refer to Result Comment for Performing Lab Location Estradiolon 02-23-2017 ESTRADIOL 38.2 pg/mL Normal [facility] Comment on above: Order Comment: Order ing Doctor: Jeffrey Salgadoformed by [employer] [address] Result Comment: Norm ally Menstruating Females Follicular Phase 19 - 247 pg/ml Mid-Cycle 36 - 571 pg/ml Luteal Phase 22 - 256 pg/mlPostmenopausal <7 - 45 pg/mlMales 12 - 41 pg/ml Performed By: #### 1 539435, 7909874 ####[address] [place], [place] 99745409-519-9734#### 0041697, 4618525, 2195568, 9638353, 0147507, 4129798, 5943634 ####Please refer to Result Comment for Performing Lab Location Follicle Stimulating Hormone on 02-23-2017 FSH (FOLLICLE STIMULATING HORMONE) 3.5 mIU/ml Normal 0.6-16.9 [facility] Comment on above: Order Comment: Order ing Doctor: Jeffrey Salgadoformed by [employer] [facility] [address] [place] [address] Result Comment: Monett lly Menstruating Female Ranges Follicular Phase 2.5 - 10.2 mIU/ml Mid-Cycle 3.4 - 33.4 mIU/ml Luetal Phase 1.5 - 9.1 mIU/mlPost Menopausal 23.0 - 116.3 mIU/mlMale 1.4 - 18.1 mIU/ml Performed By: #### 1 469094, 5067841 ####[address] [place], [place] 11850473-264-6575#### 2774740, 8568918, 2311802, 5078493, 9775476, 4207717, 6849996 ####Please refer to Result Comment for Performing Lab Location Insulin, Fastingon 7 INSULIN (RANDOM OR FASTING) 45 uIU/mL [facility] 09-18 [facility] Comment on above: Order Comment: Order ing Doctor: Timoteo Salgado Result Comment: INTE RPRETIVE INFORMATION: Insulin, FastingThis test reacts on a nearly equimolar basis with the analogsinsulin aspart, insulin glargine, and insulin lispro. Insulindetemir exhibits approximately 50 percent cross-reactivity. Testreactivity with insulin glulisine is negligible (less than 3percent). To convert to pmol/L, multiply uIU/mL by 6.0.Performed by [facility],[address] [place] [address] gij.[facility], Kai Bland MD - Lab. Director Performed By: #### 1 651790, 4852169 ####Abimael Guaman [address] [place], [place] 78920796-784-6027#### 9259242, 5482772, 2959818, 0849865, 4788391, 7553451, 4721217 ####Please refer to Result Comment for Performing Lab Location Luteinizing Hormoneon 2016 LH (LUTEINIZING HORMONE) 10.9 mIU/ml Normal 0.6-43.9 [facility] Comment on above: Order Comment: Order ing Doctor: Jeffrey Salgadoformed by [employer] [facility] [address] Result Comment: Norm ally Menstruating Females Follicular [...] - 34.6 mIU/ml Performed By: #### 1 362002, 5602808 ####Abimael Guaman [address] [place], [place] 66715088-052-7947#### 4232455, 5071879, 1736188, 1902499, 9483803, 1109925, 6376175 ####Please refer to Result Comment for Performing Lab Location Prolactinon 02-23-2017 PROLACTIN 16.0 ng/ml Normal [facility] Comment on above: Order Comment: Order ing Doctor: Jeffrey Salgadoformed by [employer] [facility] [address] Result Comment: Fema le Non- 2.8 - 29.2 ng/ml 9.7 - 208.5 ng/ml Post Menopausal 1.8 - 20.3 ng/mlMales 2.1 - 17.7 ng/ml Performed By: #### 1 580793, 5689307 ####[address] [place] [address] [phone]#### 7612896, 2429210, 8702662, 0302897, 2986899, 7374782, 7755668 ####Please refer to Result Comment for Performing Lab Location TSH and FT4on 02-23-2017 Thyroid stimulating hormone (TSH) 2.70 uIU/mL Normal 0.49-4.67 [facility] Comment on above: Order Comment: Order ing Doctor: Timoteo Salgado Performed By: #### 1 063812, 9607746 ####[address] [place], [place] 77176056-994-2762#### 8379995, 7835114, 1150227, 4097159, 2402377, 4154333, 7915271 ####Please refer to Result Comment for Performing Lab Location Thyroxine (T4) free 0.81 ng/dL Normal 0.61-1.12 [facility] Comment on above: Order Comment: Order ing Doctor: Timoteo Salgado Performed By: #### 1 244010, 0209385 ####[address] [place], [place] 05155405-899-1219#### 1988821, 1619007, 8351698, 4709309, 1535845, 9199522, 5527846 ####Please refer to Result Comment for Performing Lab Location Testosterone, Females or Chi ldrenon 02-23-2017 TESTOSTERONE, FEMALES/CHILDREN 62 ng/dL High 9-55 [facility] Comment on above: Order Comment: Order ing Doctor: Timoteo Salgado Result Comment: Tota l Testosterone, Females 18 years and older Premenopausal 9-55 ng/dL Postmenopausal 5-32 ng/dLTotal testosterone values may not reflect optimal concentrationsin all individuals. Free or bioavailable testosteronemeasurements may provide supportive information.REFERENCE INTERVAL: Testosterone, LC-MS/MSAccess complete set of age- and/or gender-specific referenceintervals for this test in the [facility]).Test developed and characteristics determined by [facility] [employer]. See Compliance Statement B: [facility]/CSPerformed by [facility],[address] [place] [address] qof.[facility], Kai Bland MD - Lab. Director Performed By: #### 1 338590, 9679415 ####[address] [place], [place] 15244399-377-3066#### 5375358, 2080103, 5687134, 5656048, 6000408, 7122565, 5582072 ####Please refer to Result Comment for Performing Lab Location Vital Signs Date Time Vital Sign Value Performing Clinician Facility 11-24-2024 16:33-0400 Body height 175.26 cm Parth Wise PA-C Work Phone: [facility] 11-24-2024 16:33-0400 Body temperature 98.1 [degF] Parth Wise PA-C Work Phone: [facility] 11-24-2024 16:33-0400 Body weight 97.06 kg Parth Wise PA-C Work Phone: [facility] 11-24-2024 16:33-0400 Diastolic blood pressure 74 mm[Hg] Parth Wise PA-C Work Phone: [facility] 11-24-2024 16:33-0400 Heart rate 79 /min Parthmary Wise PA-C Work Phone: [facility] 11-24-2024 16:33-0400 Respiratory rate 20 /min Parth Wise PA-C Work Phone: [facility] 11-24-2024 16:33-0400 SaO2% (BldA) [Mass fraction] 100 % Parthmary Wise PA-C Work Phone: [facility] 11-24-2024 16:33-0400 Systolic blood pressure 120 mm[Hg] Parth Wise PA-C Work Phone: [facility] 09-27-2024 11:42-0400 Body height 175.3 cm Naty Benedict MD Work Phone: [facility] 09-27-2024 11:42-0400 Body mass index (BMI) [Ratio] 31.6 kg/m2 Naty Benedict MD Work Phone: [facility] 09-27-2024 11:42-0400 Body weight 97.07 kg Naty Benedict MD Work Phone: [facility] 08-15-2024 11:02-0500 Body height 175.[address] Work Phone: [facility] 08-15-2024 11:02-0500 Body mass index (BMI) [Ratio] 29.52 kg/m2 Kaity Marley RD Work Phone: [facility] 08-15-2024 11:02-0500 Body weight 90.[address] Work Phone: [facility] 05-10-2024 10:12-0500 Body height 175.3 cm Saray [place] PA Work Phone: [facility] 05-10-2024 10:12-0500 Body mass index (BMI) [Ratio] 32.19 kg/m2 [facility] Work Phone: [facility] 05-10-2024 10:12-0500 Body weight 98.88 kg [facility] PA Work Phone: [facility] 02-21-2024 10:21-0400 Diastolic blood pressure 64 mm[Hg] Mireya Vieira MD Work Phone: [facility] 02-21-2024 10:21-0400 Systolic blood pressure 122 mm[Hg] Mireya Vieira MD Work Phone: [facility] 02-20-2024 10:36-0400 Body height 175.3 cm [facility] PA Work Phone: [facility] 02-20-2024 10:36-0400 Body mass index (BMI) [Ratio] 32.19 kg/m2 [facility] PA Work Phone: [facility] 02-20-2024 10:36-0400 Body weight 98.88 kg [facility] PA Work Phone: [facility] 02-08-2024 10:30-0400 Diastolic blood pressure 69 mm[Hg] Amber Bledsoe MD Work Phone: [facility] 02-08-2024 10:30-0400 Heart rate 119 /min Amber Bledsoe MD Work Phone: [facility] 02-08-2024 10:30-0400 SaO2% (BldA) [Mass fraction] 99 % Amber Bledsoe MD Work Phone: [facility] 02-08-2024 10:30-0400 Systolic blood pressure 121 mm[Hg] Amber Bledsoe MD Work Phone: [facility] 01-09-2024 10:48-0400 Body height 175.3 cm Naty Benedict MD Work Phone: [facility] 01-09-2024 10:48-0400 Body mass index (BMI) [Ratio] 29.64 kg/m2 Naty Benedict MD Work Phone: [facility] 01-09-2024 10:48-0400 Body weight 91.04 kg Naty Benedict MD Work Phone: [facility] 01-09-2024 10:48-0400 Diastolic blood pressure 78 mm[Hg] Naty Benedict MD Work Phone: [facility] 01-09-2024 10:48-0400 Heart rate 95 /min Naty Benedict MD Work Phone: [facility] 01-09-2024 10:48-0400 Respiratory rate 18 /min Naty Benedict MD Work Phone: [facility] 01-09-2024 10:48-0400 SaO2% (BldA) [Mass fraction] 98 % Naty Benedict MD Work Phone: [facility] 01-09-2024 10:48-0400 Systolic blood pressure 123 mm[Hg] Naty Benedict MD Work Phone: [facility] 07-08-2022 10:47-0500 Body temperature 98.29 [degF] Hebert Austin DO Work Phone: [employer] 07-08-2022 10:47-0500 Diastolic blood pressure 80 mm[Hg] Hebert Austin DO Work Phone: [employer] 07-08-2022 10:47-0500 Heart rate 98 /min Hebert Austin DO Work Phone: [employer] 07-08-2022 10:47-0500 Respiratory rate 17 /min Hebert Austin DO Work Phone: [employer] 07-08-2022 10:47-0500 SaO2% (BldA) [Mass fraction] 99 % Hebert Austin DO Work Phone: [employer] 07-08-2022 10:47-0500 Systolic blood pressure 125 mm[Hg] Hebert Austin DO Work Phone: [employer] 07-03-2022 11:26-0500 Body height 175.3 cm Hebert Austin DO Work Phone: [employer] 06-26-2022 14:00-0500 Diastolic blood pressure 94 mm[Hg] Levi Buitrago [employer] Work Phone: [employer] 06-26-2022 14:00-0500 Systolic blood pressure 151 mm[Hg] Levi [employer] Work Phone: [employer] 06-26-2022 06:15-0500 Body mass index (BMI) [Ratio] 41.35 kg/m2 Hebert Austin [employer] Work Phone: [employer] 06-26-2022 06:15-0500 Body weight 127.01 kg Hebert Austin [employer] Work Phone: [employer] 06-26-2022 03:30-0500 Heart rate 115 /min LeviExecutive Caddie Phone: [employer] 06-26-2022 03:30-0500 Respiratory rate 16 /min [employer]Executive Caddie Phone: [employer] 06-26-2022 03:30-0500 SaO2% (BldA) [Mass fraction] 97 % LeviLiB Phone: [employer] 06-26-2022 00:35-0500 Body height 175.3 cm LeviExecutive Caddie Phone: [employer] 06-26-2022 00:35-0500 Body mass index (BMI) [Ratio] 43.42 kg/m2 [employer]Executive Caddie Phone: [employer] 06-26-2022 00:35-0500 Body weight 133.36 kg Levi [employer] Phone: [employer] 06-26-2022 00:34-0500 Body temperature 97.81 [degF] Levi [employer] Phone: [employer] 11-10-2021 11:06-0400 Blood Pressure Location [facility] 11-10-2021 11:06-0400 Diastolic blood pressure 83 mm[Hg] Franks SALAM [facility] 11-10-2021 11:06-0400 Heart rate 82 /min Franks SALAM [facility] 11-10-2021 11:06-0400 Respiratory rate 16 /min Franks SALAM [facility] 11-10-2021 11:06-0400 Systolic blood pressure 123 mm[Hg] Franks SALAM [facility] 10-26-2019 19:35-0400 BMI (Body Mass Index) 33.97 kg/m2 [facility] [place] 10-26-2019 19:35-0400 Body Temperature 98.8 [degF] Naty AparicioMissingames [place] , [place] 10-26-2019 19:35-0400 Body weight 104.33 kg Naty AparicioJooMah [employer], [place] 10-26-2019 19:35-0400 BP Diastolic 85 mm[Hg] Naty Charge Payment [place] , [place] 10-26-2019 19:35-0400 BP Systolic 120 mm[Hg] Naty [employer] [place] 10-26-2019 19:35-0400 Height 175.3 cm Naty [employer] [place] 10-26-2019 19:35-0400 Pulse (Heart Rate) 96 /min Naty AparicioJooMah Inc[facility] [place] 10-26-2019 19:35-0400 Pulse Oximetry 98 % Naty Bonds [facility] , [place] 10-26-2019 19:35-0400 Respiratory Rate 18 /min Naty Charge Payment [place], [place] 06-10-2019 20:53-0500 BP Diastolic 82 mm[Hg] [facility] 06-10-2019 20:53-0500 BP Systolic 130 mm[Hg] [facility] 06-10-2019 20:53-0500 Pulse (Heart Rate) 96 /min [facility] 06-10-2019 20:53-0500 Pulse Oximetry 99 % [facility] 06-10-2019 19:57-0500 BMI (Body Mass Index) 26.58 kg/m2 [facility] 06-10-2019 19:57-0500 Body weight 81.65 kg [facility] 06-10-2019 19:57-0500 Height 175.3 cm [facility] 06-10-2019 19:56-0500 Body Temperature 98.4 [degF] [facility] 06-10-2019 19:56-0500 Respiratory Rate 18 /min [facility] 10-22-2018 12:52-0400 BP Diastolic 83 mm[Hg] [facility] 10-22-2018 12:52-0400 BP Systolic 140 mm[Hg] [facility] 10-22-2018 12:50-0400 Pulse (Heart Rate) 124 /min [facility] 10-22-2018 12:50-0400 Respiratory Rate 18 /min [facility] 10-22-2018 00:27-0400 BMI (Body Mass Index) 38.75 kg/m2 [facility] 10-22-2018 00:27-0400 Body weight 112.22 kg [facility] 10-22-2018 00:27-0400 Height 170.2 cm [facility] 10-22-2018 00:26-0400 Body Temperature 99.3 [degF] [facility] 10-08-2018 11:34-0400 BMI (Body Mass Index) 40.25 kg/m2 Sayed [facility] 10-08-2018 11:34-0400 Body Temperature 97.3 [degF] [facility] 10-08-2018 11:34-0400 Body weight 116.57 kg [facility] 10-08-2018 11:34-0400 BP Diastolic 104 mm[Hg] [facility] 10-08-2018 11:34-0400 BP Systolic 150 mm[Hg] [facility] 10-08-2018 11:34-0400 Height 170.2 cm [facility] 10-08-2018 11:34-0400 Pulse (Heart Rate) 97 /min [facility] 10-08-2018 11:34-0400 Respiratory Rate 20 /min [facility] 07-16-2018 16:40-0500 BMI (Body Mass Index) 39.47 kg/m2 [facility] Work Phone: 07-16-2018 16:40-0500 Body Temperature 98.1 [degF] [facility] Work Phone: 07-16-2018 16:40-0500 BP Diastolic 83 mm[Hg] [facility] Work Phone: 07-16-2018 16:40-0500 BP Systolic 141 mm[Hg] [facility] Work Phone: 07-16-2018 16:40-0500 Height 170.2 cm [facility] Work Phone: 07-16-2018 16:40-0500 Pulse (Heart Rate) 89 /min [facility] Work Phone: 07-16-2018 16:40-0500 Respiratory Rate 16 /min [facility] Work Phone: 07-16-2018 16:40-0500 Weight 114.31 kg [facility] Work Phone: Encounters Encounter Date Encounter Type Care Provider Facility Start: 02-12-2025 End: 02-12-2025 Patient encounter procedure Nik Ramirez [facility] Work Phone: Start: 02-12-2025 End: 02-12-2025 Patient encounter procedure Nik Esvin Ramirez DO [facility] Start: 02-12-2025 End: 02-12-2025 ambulatory Parth Wise PA-C Work Phone: [facility] Work Phone: Start: 01-27-2025 End: 01-27-2025 Patient encounter procedure Nik Esvin Ramirez DO -[facility] Start: 01-27-2025 End: 01-27-2025 ambulatory Parth Wise PA-C Work Phone: [facility] Work Phone: Start: 12-18-2024 End: 12-18-2024 ambulatory Earline L Gustavo Facility:[facility] Start: 12-16-2024 End: 12-16-2024 Patient encounter procedure Nik Ramirez [facility] Work Phone: Start: 12-05-2024 End: 12-17-2024 Telephone encounter Naty Benedict MD Work Phone: Rehab Medicine Comment on above: Patient Update Start: 11-28-2024 End: 11-28-2024 ambulatory Earline L Gustavo Facility:[facility] Start: 11-24-2024 End: 11-24-2024 Emergency department patient visit Parth Wise PA-C Work Phone: [facility] Work Phone: Start: 11-13-2024 End: 11-13-2024 ambulatory Earline L Gustavo Facility:[facility] Start: 11-11-2024 End: 11-11-2024 Telephone encounter Gillian Millan MD Work Phone: Urology Comment on above: appointment reschedu le Start: 11-06-2024 End: 11-06-2024 ambulatory EARLINE GUSTAVO [facility] Start: 11-06-2024 End: 11-06-2024 Subsequent hospital visit by physician Samantha Fraga [facility] Physical Therapy Comment on above: Arrived Start: 11-05-2024 End: 11-05-2024 Telephone encounter Naty Benedict MD Work Phone: Neurology Start: 11-04-2024 ambulatory Earline L Gustavo [facility] Start: 10-30-2024 End: 10-30-2024 Subsequent hospital visit by physician Eliecer Nunez PT [facility] Physical Therapy Start: 10-16-2024 End: 10-16-2024 Telephone encounter Naty Benedict MD Work Phone: [facility] Medicine Comment on above: Received outside hos pital radiology report. Start: 10-14-2024 End: 10-14-2024 ambulatory EARLINE GUSTAVO [facility] Start: 10-14-2024 End: 10-14-2024 Subsequent hospital visit by physician Eliecer Montalvo PT [facility] Physical Therapy Comment on above: Arrived Start: 10-11-2024 End: 10-11-2024 ambulatory NATY BENEDICT [facility] Start: 10-08-2024 End: 10-08-2024 Refill Lorin Guido APRN.CNP Work Phone: Neurology Comment on above: Refill Request Start: 10-07-2024 End: 10-07-2024 Subsequent hospital visit by physician Rober Arellano [facility] Physical Therapy Start: 10-07-2024 ambulatory [facility]AVO [facility] Start: 09-30-2024 End: 09-30-2024 ambulatory EARLINE GUSTAVO [facility] Start: 09-30-2024 End: 09-30-2024 Subsequent hospital visit by physician Sumit Shafer [facility] Physical Therapy Comment on above: Arrived Start: 09-27-2024 End: 09-27-2024 ambulatory SELF Facility:[facility] Start: 09-27-2024 End: 09-27-2024 Patient encounter procedure Naty Benedict MD Work Phone: Rehab Medicine Comment on above: Paraplegia (HCC) (Pr imary Dx); Disuse osteoporosis; Neurogenic bladder; Urinary retention; Chronic midline thoracic back pain; Pathological fracture, other site, initial encounter for fracture; Mixed hyperlipidemia; Renal insufficiency Start: 09-23-2024 End: 09-23-2024 Subsequent hospital visit by physician Sumit Shafer [facility] Physical Therapy Start: 09-16-2024 End: 09-16-2024 ambulatory EARLINE GUSTAVO [facility] Start: 09-16-2024 End: 09-16-2024 Subsequent hospital visit by physician Sumit Shafer [facility] Physical Therapy Comment on above: Arrived Start: 09-09-2024 End: 09-09-2024 Subsequent hospital visit by physician Sumit Shafer [facility] Physical Therapy Start: 09-02-2024 End: 09-02-2024 ambulatory EARLINE GUSTAVO [facility] Start: 09-02-2024 End: 09-02-2024 Subsequent hospital visit by physician Eliecer Montalvo PT [facility] Physical Therapy Comment on above: Arrived Start: 08-27-2024 End: 08-27-2024 [facility] Regulo Rome APRN.CNP Work Phone: Neurology Comment on above: Generalized-onset se izures (HCC) (Primary Dx); Complete paraplegia (HCC); Anxiety and depression; Bipolar 1 disorder with moderate melinda (HCC); Neuropathic pain Start: 08-15-2024 End: 08-15-2024 ambulatory [facility] Facility:[facility] Start: 08-15-2024 End: 08-15-2024 Nutrition therapy Kaity Marley RD Work Phone: Nutrition Therapy Comment on above: Mixed hyperlipidemia (Primary Dx) Start: 08-15-2024 End: 08-15-2024 Telemedicine consultation with patient Kaity Marley RD Work Phone: Nutrition Therapy Start: 08-12-2024 End: 08-12-2024 [facility]ulatory [facility] Start: 08-12-2024 End: 08-12-2024 Subsequent hospital visit by physician Lyndsay Mahmood PTA [facility] Physical Therapy Comment on above: Arrived Start: 08-05-2024 End: 08-05-2024 ambulatory [facility] Start: 08-05-2024 End: 08-05-2024 Subsequent hospital visit by physician Isidro Fowler PTA [facility] Physical Therapy Comment on above: Arrived Start: 08-01-2024 ambulatory NATY BENEDICT Facility:[facility] Start: 08-01-2024 End: 08-01-2024 Subsequent hospital visit by physician Mammo/Bone Density [facility] Comment on above: Paraplegia (HCC) [G8 2.20] Start: 07-29-2024 End: 07-29-2024 Refill Karen Blanco MD Work Phone: Neurology Comment on above: Refill Request Start: 07-20-2024 End: 08-05-2024 ambulatory Naty Benedict MD Work Phone: Rehab Medicine Comment on above: Xrays Start: 07-20-2024 End: 08-05-2024 E-mail encounter from caregiver Naty Benedict MD Work Phone: Rehab Medicine Start: 07-19-2024 End: 07-19-2024 Subsequent hospital visit by physician Kellie Deluca Work Phone: Radiology Comment on above: Mixed hyperlipidemia [E78.2] Start: 07-19-2024 End: 07-19-2024 ambulatory NATY BENEDICT Facility:[facility] Start: 07-19-2024 End: 07-19-2024 Patient encounter procedure Naty Benedict MD Work Phone: Rehab Medicine Comment on above: Paraplegia (HCC) (Pr imary Dx); Mixed hyperlipidemia; Fixation hardware in spine; Neurogenic bladder; Constipation, unspecified constipation type; Neuropathic pain; Neurologic gait dysfunction; At risk for osteopenia Start: 07-18-2024 End: 07-18-2024 Subsequent [facility] Start: 07-15-2024 End: 07-15-2024 Telephone encounter Karen Blanco MD Work Phone: Neurosurgery Comment on above: Other (labs) Start: 07-11-2024 End: 07-11-2024 ambulatory EARLINE GUSTAVO [facility] Start: 07-11-2024 End: 07-11-2024 Subsequent hospital visit by physician Isidro Fowler PTA [facility] Physical Therapy Comment on above: Arrived Start: 07-04-2024 End: 07-09-2024 Telephone encounter Naty Benedict MD Work Phone: Rehab Medicine Comment on above: increased pain Start: 07-04-2024 ambulatory E[facility]LINE GUSTAVO [facility] Start: 06-21-2024 ambulatory PHYSICIAN DESEAN CABALLERO Fac ility:[facility] Start: 06-20-2024 End: 06-20-2024 ambulatory EARLINE GUSTAVO [facility] Start: 06-20-2024 End: 06-20-2024 Subsequent hospital visit by physician Isidro Fowler PTA [facility] Physical Therapy Comment on above: Arrived Start: 06-19-2024 End: 06-19-2024 ambulatory Earline L Gustavo Facility[facility] Start: 06-13-2024 End: 06-13-2024 Subsequent hospital visit by physician Dilcia Lee PTA [facility] Physical Therapy Start: 06-13-2024 End: 06-13-2024 ambulatory Earline L Gustavo Facility:[facility] Start: 06-06-2024 End: 06-06-2024 ambulatory EARLINE GUSTAVO [facility] Start: 06-06-2024 End: 06-06-2024 Subsequent hospital visit by physician Samantha Fraga PTA [facility] Physical Therapy Comment on above: Arrived Start: 06-04-2024 End: 06-05-2024 Telephone encounter Karen Blanco MD Work Phone: Neurology Start: 05-23-2024 End: 06-27-2024 Telephone encounter Tangela Paula APRN.HARNESS INSPECTOR Work Phone: PHYSICAL MEDICINE & REHAB Comment on above: Insurance Authorizat ion Start: 05-23-2024 End: 05-23-2024 ambulatory YANELI Haque [facility] Start: 05-23-2024 End: 05-23-2024 Subsequent hospital visit by physician Eliecer Montalvo PT [facility] Physical Therapy Comment on above: Arrived Start: 05-16-2024 ambulatory [facility] ADON[facility] Start: 05-10-2024 End: 05-10-2024 Bamboo flowsheet Saray Nair PA Work Phone: [facility] Start: 05-10-2024 End: 05-10-2024 Bamboo flowsheet Saray Nair PA Work Phone: [facility] Start: 05-10-2024 End: 05-10-2024 ambulatory SARAY NAIR Not Available Start: 05-10-2024 End: 05-10-2024 Patient encounter procedure Saray Nair PA Work Phone: [facility] Comment on above: Left knee pain, unsp ecified chronicity (Primary Dx); Closed nondisplaced transverse fracture of left patella with routine healing, subsequent encounter; Tibial plateau fracture, left, closed, with routine healing, subsequent encounter Start: 05-07-2024 End: 05-07-2024 ambulatory Earline L Gustavo Facility[facility] Start: 05-02-2024 End: 05-02-2024 ambulatory Earline L Gustavo Facility:[facility] Start: 04-26-2024 End: 04-26-2024 Telephone encounter Karen Blanco MD Work Phone: Neurology Comment on above: Results (MRI brain a nd EEG ) Start: 04-22-2024 End: 04-24-2024 ambulatory Carol Neal APRN.HARNESS INSPECTOR Work Phone: Neurology Comment on above: Neuroradiology Start: 04-15-2024 End: 04-15-2024 ambulatory Amanda Son PA-C Work Phone: Neurology Comment on above: Generalized convulsi ve epilepsy (HCC) (Primary Dx) Start: 04-15-2024 End: 04-15-2024 Telemedicine consultation with patient Amanda Son PA-C Work Phone: Neurology Start: 04-13-2024 End: 04-13-2024 ambulatory KAREN BLANCO Facility:[facility] Start: 04-13-2024 End: 04-13-2024 Subsequent hospital visit by physician Mri 3 Radio Main Q (I-Stat/1.5t/3t) Work Phone: MRI Q Comment on above: Convulsions, unspeci fied convulsion type (HCC) [R56.9] Start: 04-12-2024 End: 04-15-2024 Telephone encounter Karen Blanco MD Work Phone: Neurology Comment on above: Seizures Start: 04-09-2024 End: 04-09-2024 ambulatory SARAY NAIR Not Available Start: 04-08-2024 End: 04-08-2024 Telemedicine consultation with patient Carol Neal KATLYN.HARNESS INSPECTOR Work Phone: Neurology Start: 04-08-2024 End: 04-08-2024 ambulatory Carol Neal FOUNDATION DIGGER.HARNESS INSPECTOR Work Phone: Neurology Comment on above: Generalized convulsi ve epilepsy (HCC) (Primary Dx) Start: 04-08-2024 End: 04-08-2024 Telemedicine consultation with patient Tangela Paula APRN.HARNESS INSPECTOR Work Phone: [facility]YSICAL MEDICINE & REHAB Start: 04-08-2024 End: 04-08-2024 ambulatory Tangela Paula FOUNDATION DIGGER.HARNESS INSPECTOR Work Phone: PHYSICAL MEDICINE & REHAB Comment on above: 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); History of seizures; History of recent fall; History of spinal cord injury; Low back pain, unspecified back pain laterality, unspecified chronicity, unspecified whether sciatica present Start: 03-28-2024 End: 03-28-2024 ambulatory Earline L Gustavo [facility] Start: 02-28-2024 End: 02-28-2024 ambulatory Karen Blanco MD Work Phone: Neurology Comment on above: Convulsions, unspeci fied convulsion type (HCC) (Primary Dx); Recurrent seizures (HCC); Generalized convulsive epilepsy (HCC) Start: 02-28-2024 End: 02-28-2024 Telemedicine consultation with patient Karen Blanco MD Work Phone: Neurology Start: 02-28-2024 End: 02-28-2024 ambulatory SHASTA MADDOX Facility:[facility] Start: 02-27-2024 End: 02-27-2024 ambulatory Earline L Gustavo Facility[facility] Start: 02-21-2024 ambulatory MIREYA VIEIRA [facility] Start: 02-21-2024 End: 02-21-2024 Office outpatient new 30 minutes Mireya Vieira MD Work Phone: [facility] Comment on above: Narcotic dependence, in remission (Primary Dx) Start: 02-20-2024 End: 02-20-2024 ambulatory SARAY NAIR Not Available Start: 02-20-2024 End: 02-20-2024 Patient encounter procedure Saray JOINER Work Phone: [facility] Comment on above: Left knee pain, unsp ecified chronicity (Primary Dx); Closed nondisplaced transverse fracture of left patella, initial encounter; Tibial plateau fracture, unspecified laterality, closed, initial encounter; Contusion of bone Start: 02-20-2024 End: 02-20-2024 ambulatory SARAY NAIR Not Available Start: 02-12-2024 End: 02-12-2024 ambulatory Earline L Gustavo Facility[facility] Start: 02-08-2024 End: 02-08-2024 Subsequent hospital visit by physician [facility] 1 Work Phone: Radiology Comment on above: Neurogenic bladder [ N31.9] Start: 02-08-2024 End: 02-08-2024 ambulatory NATY BENEDICT Facility:[facility] Start: 02-08-2024 End: 02-08-2024 Patient encounter procedure Amber Bledsoe MD Work Phone: Pain Management Comment on above: Myofascial low back pain (Primary Dx); Neuropathic pain; Paraplegia (HCC); Borderline personality disorder (HCC); Personal history of spine surgery; Burst fracture of lumbar vertebra, sequela Start: 02-06-2024 Telephone encounter Amber perry MD Work Phone: Pain Management Comment on above: Appointment Start: 02-02-2024 ambulatory [facility] Facility: [facility] Start: 01-31-2024 End: 01-31-2024 [facility] Gillian Millan MD Work Phone: Urology Comment on above: Neurogenic bowel (Pr imary Dx); Neurogenic bladder; Spinal cord injury at T7-T12 level (HCC); Borderline personality disorder (HCC); Incomplete paraplegia (HCC) Start: 01-30-2024 End: 01-30-2024 ambulatory Earline L Gustavo Facility:[facility] Start: 01-25-2024 Patient encounter procedure Steve Reese MD Work Phone: Neurology Comment on above: Partial symptomatic epilepsy with complex partial seizures, not intractable, without status epilepticus (HCC) (Primary Dx) Start: 01-25-2024 Telephone encounter Steve Reese MD Work Phone: Neurology Comment on above: Future Appointment ( NEW PT, [place], ANY) Start: 01-24-2024 ambulatory No Pcp KATLYN Diez [facility] [place] Start: 01-24-2024 Patient encounter procedure No Pcp 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 DIGGER [facility] [place] Start: 01-23-2024 Telephone encounter Naty Malave MD Work Phone: [facility] Start: 01-19-2024 ambulatory Naty Benedict MD Work Phone: Rehab Medicine Comment on above: Test results Start: 01-15-2024 End: 01-15-2024 Subsequent hospital visit by physician Eliecer Montalvo PT [facility] Physical Therapy Comment on above: No Show Start: 01-12-2024 Telephone encounter Valeria Dejesus RN Hematology/Oncology Comment on above: Patient Question Start: 01-09-2024 Telephone encounter Naty Malave MD Work Phone: Rehab Medicine Comment on above: Question about pain issue Start: 01-09-2024 End: 01-09-2024 Patient encounter procedure Naty Benedict MD Work Phone: Rehab Medicine Comment on above: Paraplegia (HCC) (Pr imary Dx); Neurogenic bladder; Neurogenic bowel; Effusion of left knee; Neuropathic pain; Idiopathic osteoporosis; Acute pain of left knee; Mixed hyperlipidemia; History of pulmonary embolism Start: 01-05-2024 [facility] Start: 01-02-2024 End: 01-02-2024 ambulatory [facility] Facility:[facility] Start: 12-29-2023 End: 12-29-2023 ambulatory Earline L Gustavo Facility:[facility] Start: 12-13-2023 End: 12-13-2023 Subsequent hospital visit by physician Vickie Feng PT [facility] Physical Therapy Start: 12-11-2023 End: 12-11-2023 ambulatory VALERIA MONTOYA Not Available Start: 12-05-2023 End: 12-05-2023 Subsequent hospital visit by physician Maricarmen Menchaca [facility] Physical Therapy Start: 12-05-2023 [facility] Start: 11-30-2023 End: 11-30-2023 Subsequent hospital visit by physician Tangela Wolfe PTA [facility] Physical Therapy Start: 11-20-2023 Telephone encounter Tangela slater APRN.CNP Work Phone: PHYSICAL MEDICINE & REHAB Comment on above: Appointment Start: 11-17-2023 End: 11-17-2023 ambulatory Tangela Paula APRN.CNP Work Phone: PHYSICAL MEDICINE & REHAB Comment on above: Paraplegia (HCC) (Pr imary Dx); Fusion of spine of thoracolumbar region; Weakness; Constipation, unspecified constipation type; Spasticity Start: 11-17-2023 End: 11-17-2023 Telemedicine consultation with patient Tangela Paula APRN.CNP Work Phone: PHYSICAL MEDICINE & REHAB Start: 11-02-2023 End: 11-02-2023 Subsequent hospital visit by physician Dilcia Lee PTA [facility] Physical Therapy Start: 09-28-2023 End: 09-28-2023 Subsequent hospital visit by physician Madyson Davila PTA [facility] Physical Therapy Comment on above: Arrived Start: 09-25-2023 ambulatory Arpan Cameron A PRN.HARNESS INSPECTOR Work Phone: [facility] Comment on above: Test results Start: 2023 ambulatory ARPAN CAMERON Facility:[facility] Start: 2023 End: 2023 Subsequent hospital visit by physician [facility] (Istat/1.5) Work Phone: [facility] Rad[facility] MRI Comment on above: Mid back pain [M54.9 ] Start: 09-21-2023 End: 09-21-2023 Subsequent hospital visit by physician Maria Del Rosario Martinez PTA [facility] Physical Therapy Comment on above: Arrived Start: 09-14-2023 End: 09-14-2023 Subsequent hospital visit by physician Dilcia Lee PTA [facility] Physical Therapy Start: 08-29-2023 End: 08-29-2023 Subsequent hospital visit by physician Dilcia Lee PTA [facility] Physical Therapy Start: 08-10-2023 End: 08-10-2023 Subsequent hospital visit by physician Dilcia Lee PTA [facility] Physical Therapy Comment on above: Arrived Start: 07-20-2023 End: 07-20-2023 Subsequent hospital visit by physician Dilcia Lee PTA [facility] Physical Therapy Start: 06-28-2023 End: 07-01-2023 ambulatory [facility] Start: 05-05-2023 End: 05-23-2023 Evaluation and management of inpatient [facility] Start: 04-24-2023 End: 04-29-2023 ambulatory [facility] Start: 03-21-2023 End: 03-21-2023 Subsequent hospital visit by physician Maria Del Rosario Martinez PTA [facility] Physical Therapy Start: 02-07-2023 End: 02-07-2023 ambulatory Prabhu Riya Other [facility] Other Start: 02-07-2023 Telephone encounter Prabhu Riya [facility] [place] Start: 01-11-2023 End: 01-14-2023 ambulatory YANELI LAMB [facility] Start: 07-23-2022 End: 07-23-2022 Subsequent hospital visit by physician [facility] Comment on above: spinal cord compress ion Start: 07-08-2022 End: 07-28-2022 Subsequent hospital visit by physician Edwar Hanson MD Work Phone: [facility] Comment on above: [Z98.890] - Other sp ecified postprocedural state Start: 06-26-2022 End: 07-08-2022 Evaluation and management of inpatient Hebert Austin DO Work Phone: [facility] Comment on above: Closed fracture of t welfth thoracic vertebra, unspecified fracture morphology, initial encounter (HCC) (Primary Dx); Seizure (HCC); Spine disorder Start: 06-26-2022 End: 06-26-2022 Emergency department patient visit [facility] Start: 06-26-2022 End: 06-26-2022 Emergency department patient visit Levi Buitrago DO Work Phone: [facility] Emergency Medicine Start: 06-03-2022 End: 06-04-2022 ambulatory NONE LISTED REQUEST Facility:[facility] Start: 02-26-[address] DAVID MORALES . Facili ty:[facility] Start: 01-12-2022 End: 01-13-[address] DAVID MORALES . Facility:[facility] Start: 11-10-2021 End: 11-10-2021 Patient encounter procedure Tiny BRUNO [facility] Start: 07-06-2021 Evaluation and management of inpatient TETE GUSTAFSON Facility:[facility] Start: 10-29-2019 End: 10-29-2019 Subsequent hospital visit by physician Wendy Sandoval [facility] Start: 10-26-2019 End: 10-26-2019 Emergency department patient visit Naty Fernández Cammie Work Phone: [facility] ED Comment on above: Chronic dental pain (Primary Dx) Start: 06-10-2019 End: 06-10-2019 Emergency department patient visit Jorge Rodrigues Work Phone: [facility] Emergency Medicine Start: 10-22-2018 Notes/Results Only Other Other NOTE S/RESULTS Start: 10-22-2018 End: 10-22-2018 Patient encounter procedure Other Other [facility] Start: 10-22-2018 End: 10-22-2018 Emergency department patient visit Kehinde Mcallister Lew Work Phone: [facility] Emergency Medicine Start: 10-18-2018 End: 10-18-2018 Patient encounter procedure [facility] Start: 10-08-2018 End: 10-08-2018 Emergency department patient visit Gold Choi Work Phone: [facility] Start: 09-06-2018 End: 09-06-2018 Patient encounter procedure [facility] Start: 08-23-2018 End: 08-23-2018 Patient encounter procedure [facility] Start: 07-16-2018 End: 07-16-2018 Office outpatient new 30 minutes Pa Rodriguez Work Phone: [facility] Comment on above: Acute upper respirat ory infection (Primary Dx) Start: 06-29-2018 End: 06-29-2018 Patient encounter procedure Jocelyn ARENAS Facility:[facility] Start: 06-05-2018 End: 06-05-2018 Patient encounter procedure Lenora Peña CNM Facility:[facility] Start: 05-29-2018 End: 06-02-2018 Evaluation and management of inpatient Audrey Wan Rao Facility:[facility] Start: 05-25-2018 End: 05-25-2018 Patient encounter procedure [facility] J Rao [facility] [facility] Start: 05-18-2018 End: 05-18-2018 Patient encounter procedure Johnnysadie aCmeron Long Facility:[facility] Start: 05-15-2018 End: 05-15-2018 Patient encounter Audrey Rao Work Phone: [facility] Start: 05-01-2018 End: 05-02-2018 Patient encounter procedure Audrey J Rao Facility:[facility] Start: 04-16-2018 End: 04-16-2018 Patient encounter procedure Audrey J Rao Facility:[facility] Start: 04-16-2018 End: 04-16-2018 Patient encounter procedure Audrey J Rao Facility:[facility] Start: 04-09-2018 End: 04-09-2018 Patient encounter procedure Audrey J Rao Facility:[facility] Start: 03-26-2018 End: 03-26-2018 Patient encounter procedure Audrey J Rao Facility:[facility] Start: 01-11-2018 End: 01-11-2018 Patient encounter procedure Jocelyn Bowen CNM Facility:[facility] Start: 11-30-2017 End: 11-30-2017 Emergency department patient visit DAR MELVIN Facility:001 Start: 11-22-2017 End: 11-22-2017 Ambulatory Timoteo Salgado Facility:001 Start: 11-15-2017 End: 11-15-2017 Emergency department patient visit WENDY SANDOVAL Facility:001 Start: 10-24-2017 End: 10-24-2017 Emergency department patient visit WENDY SANDOVAL Facility:001 Start: 10-19-2017 End: 10-19-[address] [facility] Facility:001 Start: 08-15-2017 End: 08-15-2017 Emergency department patient visit DONNELL ELLIS Facility:001 Start: 06-30-2017 End: 06-30-2017 Emergency department patient visit WENDY SANDOVAL Facility:001 Start: 02-23-2017 End: 02-23-2017 Ambulatory Timoteo Salgado Facility:001 Procedures Date Procedure Procedure Detail Performing Clinician Start: 02-12-2025 X-ray of left ankle Art clifton Wise PA-C Work Phone: Start: 11-24-2024 X-ray of left ankle Carlos Wise PA-C Work Phone: Start: 11-24-2024 X-ray of left knee, four views Parth Wise PA-C Work Phone: Start: 08-01-2024 Dxa bone density geo dy 1/> sites axial skel aNty Benedict MD Work Phone: Start: 05-10-2024 Radiologic exam knee complete 4/more views Saray Nair PA Work Phone: Start: 04-13-2024 Mri brain brain stem w/o contrast material Karen Blanco MD Work Phone: Start: 02-21-2024 Urine test visual color cmprsn meths Mireya Vieira MD Work Phone: Start: 02-21-2024 Drug test prsmv read direct optical obs pr date Mireya Vieira MD Work Phone: Start: 02-20-2024 Radiologic examinati on knee 1/2 views Saray Nair PA Work Phone: Start: 2023 Mri spinal canal lum bar w/o contrast material Arpan Cameron [employer] Work Phone: Start: 07-28-2022 Blood count complete [...] veins c omplete bilateral study Ember Rossihoven [employer] - [employer] INSPECTOR Work Phone: Start: 06-30-2022 Basic metabolic pane l calcium total Berenice C Mexico DO Work Phone: Start: 06-29-2022 Glucose blood reagent strip Rashad Ascencio MD Work Phone: Start: 06-29-2022 Basic metabolic pane l calcium total Berenice C Javier DO Work Phone: Start: 06-28-2022 Basic metabolic pane l calcium total Berenice C Javier DO Work Phone: Start: 06-28-2022 Blood count hemoglobin Gopal Abisai DO Work Phone: Start: 06-27-2022 Blood count hemoglobin Milly Hardin MD Work Phone: Start: 06-27-2022 Ecg routine ecg w/le ast 12 lds trcg only w/o i&r Berenice Herrera DO Work Phone: Start: 06-27-2022 Basic metabolic pane l calcium total Berenice Herrera DO Work Phone: Start: 06-27-2022 Blood count hemoglobin Milly Hardin MD Work Phone: Start: 06-27-2022 Urinalysis microscopic only Milly Hardin MD Work Phone: Start: 06-27-2022 Urnls dip stick/tabl et rgnt auto w/o microscopy Milly Hardin MD Work Phone: Start: 06-27-2022 Blood count hemoglobin Jyoti Kim DO Start: 06-26-2022 End: 06-26-2022 Fluoroscopy during operation Getachew lopez DO Work Phone: Start: 06-26-2022 End: 06-26-2022 LUMBAR LAMINECTOMY DISCECTOMY POSTERIOR Getachewfrieda Leong DO Work Phone: Start: 06-26-2022 Mri spinal canal tho racic w/o contrast matrl Bang Church MD Work Phone: Start: 06-26-2022 CT LUMBAR SPINE TRAU MA RECONSTRUCTION Thogn Aguilar MD Work Phone: Start: 06-26-2022 CT [...] 06-26-2022 Speech and language therapy regime Gopal Barone DO Work Phone: Start: 06-26-2022 TRAUMA PANEL Thong escoto MD Work Phone: Start: 06-26-2022 Culture bacterial qu anttative colony count urine Gopal Barone DO Work Phone: Start: 06-26-2022 Assay of troponin quantitative Levi Buitrago [employer] Work Phone: Start: 06-26-2022 BASIC METABOLIC PROFILE ER Levi Buitrago DO Work Phone: Start: 06-26-2022 Complete blood count with white cell differential, automated Levi Buitrago DO Work Phone: Start: 06-26-2022 Ct lumbar [...] Phone: Start: 10-22-2018 Assay of acetaminophen Kehinde Lew Work Phone: Start: 10-22-2018 Assay of ethanol Osmanre phong Mcallister Louann Work Phone: Start: 10-22-2018 Assay of salicylate Jony Mcallister [employer] Work Phone: Start: 10-22-2018 CBC, EDIF, PLATELET Jony Mcallister [employer] Work Phone: Start: 10-22-2018 COMPREHENSIVE METABO LIC PROFILE ER Kehinde Mcallister [employer] Work Phone: Start: 10-22-2018 Drug screen quantita tive lithium Kehinde Mcallister [employer] Work Phone: Start: 10-22-2018 MANUAL DIFFERENTIAL Jony Mcallister [employer] Work Phone: Start: 10-22-2018 TSH W/ FREE T4 Kehinde Mcallister [employer] Work Phone: Start: 05-18-2018 Blood count hemoglobin Jocelyn Bowen CNM Comment on above: Order Comment: Urine Source Urine, Clean Catch Performed By: #### L [id number] ####Main Laboratory ([facility])[address] [phone] Nivar, MD Start: 05-15-2018 End: 05-15-2018 LABS (OUTSIDE) Audrey Rao Work Phone: Start: 05-02-2018 Blood count hemoglobin Jocelyn Bowen CNM Comment on above: Order Comment: Urine Source Urine, Clean Catch Performed By: #### L 402.4000 ####Main Laboratory ([facility])[address] [place] [phone] Nivar, MD Start: 04-16-2018 Blood count hemoglobin Jocelyn ARENASM Comment on above: Order Comment: Urine Source Urine, Clean Catch Performed By: #### B 100.0800 ####Main Laboratory ([facility])[address] [phone] Nivar, MD Start: 04-09-2018 Blood count hemoglobin Jocelyn Bowen CNM Comment on above: Order Comment: Urine Source Urine, Unknown Collection Performed By: #### L 300.3000 ####Main Laboratory ([facility])[address] [place] [phone] Nivar, MD Start: 03-26-2018 Blood count hemoglobin Jocelyn Bowen CNM Comment on above: Order Comment: Urine Source Urine, Unknown Collection Performed By: #### L 300.3000 ####Main Laboratory ([facility])[address] [place], [place] [phone] Nivar, MD Start: 01-11-2018 Blood count hemoglobin Jocelyn Bowen CNM Comment on above: Order Comment: Urine Source Urine, Unknown Collection Performed By: #### L 300.3000 ####Main Laboratory ([facility])[address] [place], [place] [phone] Nivar, MD section Tiny BRUNO Tonsillectomy Tiny BRUNO Plan of Treatment Date Care Activity Detail Author Start: 03-03-2025 Influenza vaccination Influenza Vaccine (Season Ended) [facility] Start: 02-21-2025 End: 02-21-2025 Patient encounter procedure 02/21/2025 11:00 AM EDT Office Visit Rehab Medicine [address] [place] [address] Naty Benedict MD [address] [place] [address] 1 mnth follow up Rehab Medicine Comment on above: 1 mnth follow up Start: 02-04-2025 End: 02-04-2025 Patient encounter procedure 02/04/2025 9:45 AM EDT Office Visit Urology [address] [place] [address] Gillian Millan MD [address] [place] [address] Paraplegia (HCC) [G82.20]; Neurogenic bladder [N31.9]; Urinary retention [R33.9] Urology Comment on above: Paraplegia (HCC) [G82.20]; Neurogenic bl adder [N31.9]; Urinary retention [R33.9] Start: 01-31-2025 Influenza vaccination Flu vaccine (Season Ended) [facility] Start: 12-10-2024 End: 12-10-2024 Patient encounter procedure 12/10/2024 9:45 AM EDT Office Visit Urology [address] [place] [address] Gillian Millan MD [address] [place] [address] Paraplegia (HCC) [G82.20] Urology Comment on above: Paraplegia (HCC) [G82.20] Start: 11-22-2024 End: 11-22-2024 Patient encounter procedure Rehab Medicine Comment on above: 1 mnth follow up Paraplegia (HCC) [G8 2.20] Start: 11-20-2024 End: 11-20-2024 Patient encounter procedure 11/20/2024 9:45 AM EDT [facility]ointment [facility] [address] [place], [place] [phone] Vickie Feng, PT [facility] ELIECER MONTALVO PATIENT [facility] Comment on above: [facility] ELIECER MONTALVO PATIENT Start: 11-13-2024 End: 11-13-2024 Patient encounter procedure 11/13/2024 9:45 AM EDT Appointment [facility] Physical [facility] [address] [place] [phone] Lyndsay Mahmood PTA [facility] Physical Therapy Start: 11-06-2024 End: 11-06-2024 Patient encounter procedure 11/06/2024 9:45 AM EDT Appointment [facility] Physical [facility] [address] [place] [address] [phone] Lyndsay Mahmood [facility] Start: 10-30-2024 End: 10-30-2024 Patient encounter procedure 10/30/2024 9:15 AM EDT Appointment [facility] [address] [place] [address] [phone] Eliecer Nunez, PT [facility] Physical Therapy Start: 10-16-2024 End: 10-16-2024 Patient encounter procedure 10/16/2024 11:00 AM EDT Office Visit [facility] [address] [place] [address] [address] [place] [address] Quirino Adams MD [address] [address] 3m f/u [facility] Comment on above: 3m f/u Start: 10-14-2024 End: 10-14-2024 Patient encounter procedure 10/14/2024 9:45 AM EDT Appointment [facility] [address] [place] [phone] Eliecer Montalvo, PT [facility] Physical Therapy Comment on above: [facility] Start: 10-07-2024 End: 10-07-2024 Patient encounter procedure 10/07/2024 9:15 AM EDT Appointment [facility] Physical Therapy [address] [place] [address] Sumit Shafer [facility] Physical Therapy Start: 09-30-2024 End: 09-30-2024 Patient encounter procedure 09/30/2024 9:15 AM EDT Appointment [facility] Physical Therapy [address] [place] [phone] Sumit Shafer [facility] Physical Therapy Start: 09-27-2024 End: 12-27-2024 CYSTATIN C CYSTATIN C Lab Routine Renal insufficiency Expected: 09/27/2024, Expires: 12/27/2024 [facility] Comment on above: Expected: 09/27/2024, Expires: Start: 09-27-2024 End: 12-27-2024 Lipid 1996 panel - Serum or Plasma LIPID PANEL, FASTING Lab Routine Mixed hyperlipidemia Expected: 09/27/2024, Expires: 12/27/2024 [facility] Comment on above: Expected: 09/27/2024, Expires: Start: 09-23-2024 End: 09-23-2024 Patient encounter procedure 09/23/2024 9:15 AM EDT Appointment [facility] Physical Therapy [address] [place] [phone] Sumit Shafer [facility] Physical Therapy Start: 09-16-2024 End: 09-16-2024 Patient encounter procedure 09/16/2024 10:45 AM EDT Appointment [facility] Physical Therapy [address] [place] [phone] Sumit Shafer [facility] Physical Therapy Start: 09-13-2024 End: 09-13-2024 Patient encounter procedure 09/13/2024 12:00 PM EDT Office Visit Rehab Medicine [address] [place] [address] Naty Benedict MD [address] [place] [address] 1 mo f/u Rehab Medicine Comment on above: 1 mo f/u Start: 09-09-2024 End: 09-09-2024 Patient encounter procedure 09/09/2024 10:45 AM EDT Appointment [facility] Physical Therapy [address] [place] [phone] Sumit Shafer [facility] Physical Therapy Start: 08-23-2024 End: 08-23-2024 ambulatory 08/23/2024 10:00 AM EST [facility] Neurology [address] [place] [address] Karen Salazar MD [address] [place] [address] To talk about next steps with my D[facility] Neurology Comment on above: To talk about next steps with my DVP Start: 08-12-2024 End: 08-12-2024 Patient encounter procedure 08/12/2024 10:30 AM EST Appointment [facility] Physical Therapy [address] [place] [phone] Lyndsay Mahmood PTA [facility] Physical Therapy Start: 08-01-2024 End: 08-01-2024 Patient encounter procedure 08/01/2024 10:00 AM EST Appointment [facility] [address] [place] [address] DXA-AXIAL SKELETON [[id number]] [facility] Comment on above: DXA-AXIAL SKELETON [[id number]] Start: 07-31-2024 End: 07-31-2024 Nutrition therapy 07/31/2024 3:15 PM EST [facility] Nutrition Therapy [address] [place] [address] Kaity Marley, RD [address] [place] [address] My blood tests for my cholesterol was high Nutrition Therapy Comment on above: My blood tests for my cholesterol was hi gh Start: 07-29-2024 End: 07-29-2024 Patient encounter procedure 07/29/2024 11:30 AM EST Office Visit [facility] Otolaryngology [address] [place] [address], [address] [place] [address] Blanche Gibson MD [address] [place] [address] SHAHRIAR (obstructive sleep apnea) Intolerance of continuous positive airway pressure (CPAP) ventilation [facility] Otolaryngology Comment on above: SHAHRIAR (obstructive sleep apnea) Intoleranc e of continuous positive airway pressure (CPAP) ventilation Start: 07-25-2024 End: 07-25-2024 Patient encounter procedure 07/25/2024 11:00 AM EST Appointment [facility] Physical Therapy [address] [place] [phone] Isidro Fowler PTA [facility] Physical Therapy Start: 07-25-2024 Subsequent hospital visit by physician 07/25/2024 11:00 AM EST Hospital Encounter [facility] Physical Therapy [address] [place] [phone] Isidro Fowler [facility]TA [facility] Start: 07-18-2024 End: 07-18-2024 Patient encounter procedure 07/18/2024 11:00 AM EST Appointment [facility] Physical Therapy [address] [place] [phone] Isidro Fowler PTA [facility] Start: 07-17-2024 End: 07-17-2024 Patient encounter procedure 07/17/2024 11:30 AM EST Office Visit [facility] [address] [place] [address] [facility] [place] [address] Quirino Adams MD [address] [place], [place] [address] [address] SELF REFERRAL - INSPIRE [facility] Comment on above: SELF REFERRAL - INSPIRE Start: 07-11-2024 End: 07-11-2024 Patient encounter procedure 07/11/2024 12:30 PM EST Appointment [facility] Physical Therapy [address] [place] [phone] Isidro Fowler PTA [facility] Physical Therapy Start: 07-10-2024 End: 07-10-2024 Patient encounter procedure 07/10/2024 9:30 AM EST Appointment Radiology [address] [place] [address] DXA-AXIAL SKELETON [[id number]] Radiology Comment on above: DXA-AXIAL SKELETON [[id number]] Start: 07-04-2024 End: 07-04-2024 Patient encounter procedure [facility] Start: 07-01-2024 End: 07-01-2024 Patient encounter procedure 07/01/2024 11:00 AM EST Office Visit [facility] [address] [place] [address] [place] [address] Quirino Adams MD [address] [place], [place] [address] [address] SELF REFERRAL - INSPIRE [facility] Comment on above: SELF REFERRAL - INSPIRE Start: 06-27-2024 End: 06-27-2024 Patient encounter procedure [facility] Start: 06-20-2024 End: 06-20-2024 Patient encounter procedure 06/20/2024 10:15 AM EST Appointment [facility] Physical Therapy [address] [place] [phone] Isidro Fowler PTA [facility] Start: 06-18-2024 End: 06-18-2024 Patient encounter procedure 06/18/2024 11:15 AM EST Office Visit [facility] [address] [place], [place] [address], [place] [address] Quirino Adams MD [address] [facility] [address] [place] [address] SELF REFERRAL - INSPIRE [facility] Comment on above: SELF REFERRAL - INSPIRE Start: 06-13-2024 End: 06-13-2024 Patient encounter procedure 06/13/2024 10:15 AM EST Appointment [facility] Physical Therapy [address] [place] [phone] Dilcia Lee PTA [facility] Physical Therapy Start: 06-10-2024 End: 06-10-2024 ambulatory 06/10/2024 10:30 AM EST Results Only [facility] [address] [place] [address] [facility] Start: 06-06-2024 End: 06-06-2024 Patient encounter procedure 06/06/2024 10:15 AM EST Appointment [facility] Physical Therapy [address] [place] [phone] Isidro Fowler PTA [facility] Physical Therapy Start: 05-22-2024 End: 05-22-2024 Patient encounter procedure 05/22/2024 1:20 PM EST Appointment Radiology [address] [place] [address] MRI LUMBAR SPINE WO IVCON [39517 (CPT )] Radiology Comment on above: MRI LUMBAR SPINE WO IVCON [37934 (CPT )] Start: 05-22-2024 End: 05-22-2024 Patient encounter procedure 05/22/2024 10:30 AM EST Office Visit Neurology [address] [place] [address] Neurology Start: 05-15-2024 End: 05-15-2024 Patient encounter procedure 05/15/2024 2:00 PM EST Office Visit Urology [address] [address] Gillian Millan MD [address] [place] [address] [employer] [address] [place] [address] VUDS; Neurogenic Bladder Urology Comment on above: VUDS; Neurogenic Bladder Start: 05-08-2024 End: 05-08-2024 ambulatory [facility] Start: 04-15-2024 End: 07-15-2024 CBC panel - Blood by Automated count COMPLETE BLOOD COUNT Lab Routine Generalized convulsive epilepsy (HCC) Expected: 04/15/2024, Expires: 07/15/2024 [facility] Comment on above: Expected: 04/15/2024, Expires: Start: 04-15-2024 End: 07-15-2024 Comprehensive metabolic 2000 panel - Serum or Plasma COMPREHENSIVE METABOLIC PANEL Lab Routine Generalized convulsive epilepsy (HCC) Expected: 04/15/2024, Expires: 07/15/2024 [facility] Comment on above: Expected: 04/15/2024, Expires: Start: 04-15-2024 End: 07-15-2024 Zonisamide [Mass/volume] in Serum or Plasma ZONISAMIDE Lab Routine Generalized convulsive epilepsy (HCC) Expected: 04/15/2024, Expires: 07/15/2024 [facility] Comment on above: Expected: 04/15/2024, Expires: Start: 04-15-2024 End: 04-15-2024 ambulatory 04/15/2024 10:00 AM EDT [facility] Neurology [address] [phone] Amanda Son PA-C [address] [address] [phone] To go over my MRI results with me Neurology Comment on above: To go over my MRI results with me Start: 04-13-2024 End: 04-13-2024 Patient encounter procedure 04/13/2024 11:40 AM EDT Appointment MRI Q [address] [id number] MRI BRAIN WO IVCON MRI Q Comment on above: MRI BRAIN WO IVCON Start: 04-08-2024 End: 07-08-2024 lamoTRIgine [Mass/volume] in Serum or Plasma LAMOTRIGINE Lab Routine History of seizures Expected: 04/08/2024, Expires: 07/08/2024 [facility] Work Phone: Comment on above: Expected: 04/08/2024, Expires: Start: 04-05-2024 End: 04-05-2024 Follow-up encounter 04/05/2024 1:00 PM EDT [facility] Neurology [address] [place] [address] Horacio Shaver MD [address] [place] [address] follow up - date and time per [facility] Neurology Comment on above: follow up - date and time per Neme Start: 03-22-2024 End: 03-22-2024 Nursing evaluation of patient and report 03/22/2024 2:00 PM EDT Nurse Visit Urology [address] [address] [employer] [address] [place] [address] VUDS; Neurogenic Bladder Urology Comment on above: VUDS; Neurogenic Bladder Start: 03-19-2024 End: 03-19-2024 Patient encounter procedure 03/19/2024 10:30 AM EDT Office Visit [facility] [address] [facility] [address] [place] [phone] Saray Nair PA [address] [facility] [place] [address] [facility] Start: 03-03-2024 COVID-19 Vaccine ( season) COVID-19 Vaccine ( season) [facility] Start: 03-03-2024 Covid-19 Vaccine ( season) Covid-19 Vaccine ( season) [facility] Start: 03-03-2024 Influenza vaccination [facility] Start: 02-28-2024 End: 02-28-2024 Patient encounter procedure 02/28/2024 3:30 PM EDT [facility] Neurology [address] [place] [address] Karen Salazar MD [address] [place] [address] New Consult Neurology Comment on above: New Consult Start: 02-28-2024 End: 02-28-2024 Patient encounter procedure 02/28/2024 10:30 AM EDT Office Visit Neurology [address] [place] [address] EEG/ New Consult Neurology Comment on above: EEG/ New Consult Start: 02-21-2024 End: 02-20-2025 Complete blood count with white cell differential, automated CBC, EDIF, PLATELET Lab Routine Narcotic dependence, in remission Expected: 02/21/2024, Expires: 02/20/2025 [facility] Comment on above: Expected: 02/21/2024, Expires: Start: 02-21-2024 End: 02-20-2025 Comprehensive metabolic 2000 panel - Serum or Plasma COMPREHENSIVE METABOLIC PANEL Lab Routine Narcotic dependence, in remission Expected: 02/21/2024, Expires: 02/20/2025 [facility] Comment on above: Expected: 02/21/2024, Expires: Start: 02-21-2024 End: 02-20-2025 HEPATITIS A, B, C HEPATITIS A, B, C Lab Routine Narcotic dependence, in remission Expected: 02/21/2024, Expires: 02/20/2025 [facility] Comment on above: Expected: 02/21/2024, Expires: Start: 02-21-2024 End: 02-20-2025 HIV-1/HIV-2 antigen/antibody combination immunoassay RAPID HIV-1/HIV-2 AB WITH P24 ANTIGEN Lab Routine Narcotic dependence, in remission Expected: 02/21/2024, Expires: 02/20/2025 [facility] Comment on above: Expected: 02/21/2024, Expires: Start: 02-14-2024 End: 02-14-2024 Patient encounter procedure 02/14/2024 10:30 AM EDT Office Visit Urology [address] [place] [address] Gillian Millan MD [address] [place] [address] Neurogenic bladder Urology Comment on above: Neurogenic bladder Start: 02-08-2024 End: 02-08-2024 Patient encounter procedure Pain Management Comment on above: Neuropathic pain [M79.2] Neurogenic Bladder Start: 02-01-2024 Influenza vaccination [facility] Start: 01-31-2024 End: 01-31-2024 Patient encounter procedure 01/31/2024 10:30 AM EDT Office Visit Urology [address] [place] [address] Gillian Millan MD [address] [place] [address] Neurogenic bladder Urology Comment on above: Neurogenic bladder Start: 01-15-2024 End: 01-15-2024 ambulatory 01/15/2024 10:00 AM EDT Results Only [facility] [address] [place] [address] [place] [address] labs [facility] Comment on above: labs Start: 01-12-2024 End: 01-12-2024 ambulatory 01/12/2024 11:00 AM EDT Results Only [facility] [address] [place] [address] [facility] Start: 01-09-2024 End: 04-09-2024 25-hydroxyvitamin D3 [Mass/volume] in Serum or Plasma VITAMIN D 25 HYDROXY Lab Routine Paraplegia (HCC) Idiopathic osteoporosis Expected: 01/09/2024, Expires: 04/09/2024 [facility] Comment on above: Expected: 01/09/2024, Expires: Start: 01-09-2024 End: 04-09-2024 CYSTATIN C CYSTATIN C Lab Routine Neurogenic bladder Expected: 01/09/2024, Expires: 04/09/2024 [facility] Comment on above: Expected: 01/09/2024, Expires: Start: 01-09-2024 End: 04-09-2024 Hemoglobin A1c in Blood HEMOGLOBIN A1C Lab Routine Paraplegia (HCC) Expected: 01/09/2024, Expires: 04/09/2024 [facility] Comment on above: Expected: 01/09/2024, Expires: Start: 01-09-2024 End: 04-09-2024 Lipid 1996 panel - Serum or Plasma LIPID PANEL BASIC Lab Routine Paraplegia (HCC) Mixed hyperlipidemia Expected: 01/09/2024, Expires: 04/09/2024 [facility] Comment on above: Expected: 01/09/2024, Expires: Start: 01-09-2024 End: 01-09-2024 Patient encounter procedure 01/09/2024 11:00 AM EDT Office Visit Rehab Medicine [address] [place], [place] [phone] Naty Benedict MD [address] [id number] spinal cord injury Rehab Medicine Comment on above: spinal cord injury Start: 12-21-2023 End: 12-21-2023 Patient encounter procedure 12/21/2023 10:15 AM EDT Appointment [facility] Physical Therapy [address] [place] [phone] Isidro Fowler PTA [facility] Start: 12-19-2023 End: 12-19-2023 Patient encounter procedure 12/19/2023 10:45 AM EDT [facility]ment [facility] [address] [place] [phone] Isidro Fowler [facility] Start: 12-18-2023 End: 12-18-2023 Patient encounter procedure 12/18/2023 10:30 AM EDT Office Visit [facility] [address] [facility] [address], [place] [place] [address] Getachew Leong, [address] [facility] [address] [place] [address] Call pt and lvm that a Xray needs to be done 11/20/23 [facility] Comment on above: Call pt and lvm that a Xray needs to be done 11/20/23 Start: 12-13-2023 End: 12-13-2023 Patient encounter procedure 12/13/2023 10:30 AM EDT Appointment [facility] Physical Therapy [address] [place], [place] [phone] Vickie Feng, PT [facility] Physical Therapy Start: 12-07-2023 End: 12-07-2023 Patient encounter procedure 12/07/2023 11:30 AM EDT Appointment [facility] Physical Therapy [address] [place], [place] [phone] Maricarmen Menchaca PTA [facility] Physical Therapy Start: 12-05-2023 End: 12-05-2023 Patient encounter procedure 12/05/2023 11:15 AM EDT Appointment [facility] Physical Therapy [address] [place] [phone] Maricarmen Menchaca, LIV [facility] Physical Therapy Start: 11-22-2023 End: 11-22-2023 Patient encounter procedure 11/22/2023 10:30 AM EDT Office Visit [facility] [address] [facility] [address], [address] [place] [phone] Getachew Leong, DO [address] [facility] [address] [place] [id number] 3.15.24 LVM to confirm JLH [facility] Comment on above: 3.15.24 LVM to confirm JLH Start: 11-20-2023 End: 11-20-2023 Patient encounter procedure 11/20/2023 10:00 AM EDT Appointment [facility] Physical Therapy [address] [place] [phone] Lyndsay Mahmood PTA [facility] Physical Therapy Start: 11-15-2023 End: 11-15-2023 Patient encounter procedure 11/15/2023 10:45 AM EDT Appointment [facility] [address] [place] [phone] Lyndsay Mahmood PTA [facility] Start: 11-09-2023 End: 11-09-2023 Patient encounter procedure 11/09/2023 10:30 AM EDT Appointment [facility] [address] [place] [phone] Dilcia Lee [facility]TA [facility] Start: 11-06-2023 End: 11-06-2023 Patient encounter procedure 11/06/2023 10:15 AM EDT Appointment [facility] [address] [place] [phone] Lyndsay Mahmood PTA [facility] Start: 11-02-2023 End: 11-02-2023 Patient encounter procedure 11/02/2023 10:30 AM EDT Appointment [facility] [address] [place] [phone] Dilcia Lee PTA [facility] Start: 10-31-2023 End: 10-31-2023 Patient encounter procedure 10/31/2023 10:30 AM EDT Appointment [facility] [address] [place] [address] [phone] Dilcia Lee PTA [facility] Start: 10-26-2023 End: 10-26-2023 Patient encounter procedure 10/26/2023 10:30 AM EDT Appointment [facility] [address] [place] [phone] Dilcia Lee PTA [facility] Start: 10-24-2023 End: 10-24-2023 Patient encounter procedure 10/24/2023 10:30 AM EDT Appointment [facility] [address] [place] [address] [phone] Dilcia Lee PTA [facility] Start: 10-12-2023 End: 10-12-2023 Patient encounter procedure 10/12/2023 10:30 AM EDT Appointment [facility] [address] [place] [phone] Vickie Feng, PT [facility] Start: 10-05-2023 End: 10-05-2023 Patient encounter procedure 10/05/2023 10:30 AM EDT Appointment [facility] Physical Therapy [address] [place] [phone] Vickie Feng, PT [facility] Physical Therapy Start: 09-28-2023 End: 09-28-2023 Patient encounter procedure 09/28/2023 10:30 AM EDT Appointment [facility] Physical Therapy [address] [place] [address] [phone] Vickie Feng, PT [facility] Physical Therapy Start: 09-21-2023 End: 09-21-2023 Patient encounter procedure 09/21/2023 10:15 AM EDT Appointment [facility] Physical Therapy [address] [place], [place] [phone] Maria Del Rosario Martinez PTA [facility] Physical Therapy Start: 09-20-2023 End: 09-20-2023 Patient encounter procedure [facility] Comment on above: Follow up 3.15.24 LVM to confi [facility] Start: 09-14-2023 End: 09-14-2023 Patient encounter procedure 09/14/2023 10:30 AM EDT Appointment [facility] Physical Therapy [address] [place] [address] [phone] Dilcia Lee PTA [facility] Physical Therapy Start: 09-07-2023 End: 09-07-2023 Patient encounter procedure 09/07/2023 10:15 AM EST Office Visit [facility] Physical Medicine & Rehabilitation [address] [place], [place] [phone] Bernardo De Santiago DO [address] [place] [address] chronic pain sydrome, s/p surgery [facility] Medicine [facility] Rehabilitation Comment on above: chronic pain sydrome, s/p surgery Start: 08-31-2023 End: 08-31-2023 Patient encounter procedure 08/31/2023 10:30 AM EST Appointment [facility] Physical Therapy [address] [place] [phone] Dilcia Lee PTA [facility] Therapy Start: 08-29-2023 End: 08-29-2023 Patient encounter procedure 08/29/2023 10:30 AM EST Appointment [facility] Physical Therapy [address] [place] [address] [phone] Dilcia Lee PTA [facility] Physical Therapy Start: 08-24-2023 End: 08-24-2023 Patient encounter procedure 08/24/2023 11:00 AM EST Initial consult [facility] Physical Medicine and Rehabilitation [address] [facility] [place] [address] [place] [address] [place] [address] [place] [address] Spinal cord injury rehab [facility] Medicine [facility] Rehabilitation Comment on above: Spinal cord injury rehab Start: 08-23-2023 End: 08-23-2023 Patient encounter procedure 08/23/2023 10:30 AM EST Appointment [facility] Physical Therapy [address] [place] [address] [phone] Nicole Wall PTA [facility] Physical Therapy Start: 08-17-2023 End: 08-17-2023 Patient encounter procedure 08/17/2023 10:15 AM EST Appointment [facility] Physical Therapy [address] [place] [address] [phone] Isidro Fowler PTA print schedule [facility] Physical Therapy Comment on above: print schedule Start: 08-01-2023 End: 08-01-2023 Patient encounter procedure 08/01/2023 10:30 AM EST Appointment [facility] Physical Therapy [address] [place] [address] [phone] Dilcia Lee PTA [facility] Physical Therapy Start: 07-24-2023 End: 07-24-2023 Patient encounter procedure 07/24/2023 10:30 AM EST Appointment [facility] Physical Therapy [address] [place] [phone] Vickie Feng, PT [facility] Physical Therapy Start: 07-03-2023 Behavioral Health Screening Behavioral Health Screening [facility] Start: 07-03-2023 Depression Assessment Depression Assessment [facility] Start: 06-28-2023 End: 06-28-2023 Patient encounter procedure 06/28/2023 11:00 AM EST Office Visit [address] - [address], [address] [place] [phone] Giftyimtiaz, Getachew, DO [address] [facility] [address] [place] [phone] 8 wk post op [facility] Comment on above: 8 wk post op Start: 05-18-2023 End: 05-18-2023 Patient encounter procedure 05/18/2023 9:30 AM EST Office Visit [facility] [address] [facility] [address], [address] [place] [phone] Deb Colon, [employer] [address] [facility] [address] [place], [place] [id number] 2 wk post op-ahammad [facility] Comment on above: 2 wk post op-ahammad Start: 05-05-2023 End: 05-05-2023 Admission to same day surgery center 05/05/2023 7:30 AM EDT - 05/05/2023 2:30 PM EDT Surgery [facility] [address] [facility] [place], [place] [id number] Wandyemely Getachew, DO [address] [facility] [address] [place] [address] L1 LATERAL CORPECTOMY (*CELLSAVER*, [employer], LATERAL LEFT SIDE UP, C-ARM, SSEP MONITORING, [employer]ES CONF# [id number]) [facility] Comment on above: L1 LATERAL CORPECTOMY (*CELLSAVER*, [employer]T [employer]ON[employer], LATERAL LEFT SIDE UP, C-ARM, SSEP MONITORING, EVOKES CONF# [id number]) Start: 05-05-2023 End: 05-05-2023 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 LUMBAR INTERBODY FUSION LATERAL Complete paraplegia (HCC) 05/05/2023 7:30 AM EDT [facility] Start: 05-05-2023 End: 05-05-2023 LUMBAR INTERBODY FUSION ANTERIOR LUMBAR INTERBODY FUSION ANTERIOR Complete paraplegia (HCC) 05/05/2023 7:30 AM EDT [facility] Start: 05-05-2023 Subsequent hospital visit by physician 05/05/2023 7:30 AM EDT Hospital Encounter [facility] [address] [place] [address] Getachew Leong DO [address] [facility] [address] [place] [address] [facility] Start: 04-27-2023 End: 04-27-2023 Patient encounter procedure 04/27/2023 9:00 AM EDT Initial consult [facility] Physical Medicine and Rehabilitation [address] [place] [address] Altaf Daniels MD [address] [place] [address] Rehab Eval/ Trae Consulted 06/29/22. Sched w/Buffy w/[facility] [phone] *No Testing*-[facility] Physical Medicine and Rehabilitation Comment on above: Rehab Eval/ Trae Consulted 06/29/22. Sched w/Buffy w/[facility] [phone] *No Testing*- Start: 04-21-2023 End: 04-21-2023 Patient encounter procedure 04/21/2023 9:30 AM EDT Appointment [facility] Pre-Admit Testing [address] [place] [address] [facility] Start: 04-13-2023 End: 04-13-2023 Patient encounter procedure 04/13/2023 9:45 AM EDT [facility] [address] [place] [address] Dilcia Lee PTA [facility] Physical Therapy Start: 04-11-2023 End: 04-11-2023 Patient encounter procedure 04/11/2023 9:30 AM EDT Appointment [facility] Physical Therapy [address] [place] [phone] Maria Del Rosario Martinez [facility]TA [facility] Start: 04-06-2023 End: 04-06-2023 Patient encounter procedure 04/06/2023 9:45 AM EDT Appointment [facility] Physical Therapy [address] [place] [phone] Dilcia Lee PTA [facility] Therapy Start: 04-04-2023 End: 04-04-2023 Patient encounter procedure 04/04/2023 9:30 AM EDT Appointment [facility] Physical Therapy [address] [place] [phone] Maria Del Rosario Martinez PTA [facility] Physical Therapy Start: 03-30-2023 End: 03-30-2023 Patient encounter procedure 03/30/2023 9:45 AM EDT Appointment [facility] Physical Therapy [address] [place] [phone] Dilcia Lee PTA [facility] Physical Therapy Start: 03-03-2023 Covid-19 Vaccine ( season) Covid-19 Vaccine ( season) [facility] Start: 03-03-2023 Influenza vaccination Influenza Vaccine (#1) [facility] Start: 01-31-2023 Influenza vaccination Flu vaccine (#1) [facility] Start: 07-15-2022 End: 07-15-2022 Patient encounter procedure 07/15/2022 Office Visit Neurosurgery Deb Colon, [employer] - [employer] INSPECTOR [address] [facility] [address] [place] [address] [facility] Start: 07-03-2022 DEPRESSION ASSESSMENT DEPRESSION ASSESSMENT [facility] Start: 03-03-2022 Influenza vaccination [facility] Start: 01-31-2022 Influenza vaccination Flu vaccine (#1) [facility] Start: 03-03-2020 Influenza vaccination Flu vaccine (Season Ended) [facility] [place], [place] Start: 03-03-2019 Influenza vaccination [facility] Start: 11-22-2018 GONORRHEA SCREEN GONORRHEA SCREEN [facility] Work Phone: Start: 11-22-2018 Screening for Chlamydia trachomatis [facility] Start: 2018 PAP TESTING PAP TESTING [facility] Start: 2018 Screening for malignant neoplasm of cervix [facility] Start: 03-03-2018 Influenza vaccination INFLUENZA VACCINE (#1) [facility] Work Phone: Start: 2016 DTaP/Tdap/Td vaccine (1 - Tdap) DTaP/Tdap/Td vaccine (1 - Tdap) [facility] Start: 2016 Hepatitis A Vaccine (1 of 2 - Risk 2-dose series) Hepatitis A Vaccine (1 of 2 - Risk 2-dose series) [facility] Start: 2016 Hepatitis B vaccination HEP B VACCINE (1 of 3 - 19+ 3-dose series) [facility] Start: 2016 Hepatitis B Vaccine (1 of 3 - 19+ 3-dose series) Hepatitis B Vaccine (1 of 3 - 19+ 3-dose series) [facility] Start: 2016 Pneumococcal vaccination Pneumococcal Vaccine (1 of 2 - PCV) [facility] Start: 2016 Third diphtheria, tetanus and acellular pertussis (DTaP) vaccination TDAP (ADULT) [facility] Start: 2016 Urine microalbumin profile [facility] Start: 09-23-2015 Annual PCP Team Chronic Disease Visit Annual PCP Team Chronic Disease Visit [facility] Start: 09-23-2015 Anxiety Screening Anxiety Screening [facility] Start: 09-23-2015 Depression Screening Depression Screening [facility] Start: 09-23-2015 HEPATITIS C SCREENING HEPATITIS C SCREENING [facility] Start: 09-23-2015 Hepatitis C screening [facility] Start: 09-23-2015 Spirometry Spirometry [facility] Start: 09-23-2015 Tetanus vaccination TETANUS [facility] Work Phone: Start: 2013 Screening for Chlamydia trachomatis [facility] Start: 2012 HIV screening HIV screen [facility] Start: 2012 HPV Vaccine (1 - 3-dose series) HPV Vaccine (1 - 3-dose series) [facility] Start: 2012 Vaccination for human papillomavirus [facility] Start: 09-23-2011 PEDS TO ADULT TRANSITION ANNUAL ASSESSMENT PEDS TO ADULT TRANSITION ANNUAL ASSESSMENT [facility] Start: 2010 Varicella vaccine (1 of 2 - 13+ 2-dose series) Varicella vaccine (1 of 2 - 13+ 2-dose series) [facility] Start: 2009 Depression Screen Depression Screen [facility] Start: 2009 PEDS TO ADULT TRANSITION INITIAL DISCUSSION PEDS TO ADULT TRANSITION INITIAL DISCUSSION [facility] Start: 2008 DTaP/Tdap/Td vaccine (6 - Tdap) DTaP/Tdap/Td vaccine (6 - Tdap) [facility] Start: 2008 HPV vaccine (1 - 2-dose series) HPV vaccine (1 - 2-dose series) [facility] Start: 2008 Urine microalbumin profile DTaP,Tdap,Td Vaccine (6 - Tdap) [facility] Start: 2008 Vaccination for human papillomavirus [facility] Start: 09-23-2003 Pneumococcal 0-64 years Vaccine (1 of 1 - PPSV23) Pneumococcal 0-64 years Vaccine (1 of 1 - PPSV23) [place], [place] Start: 09-23-2003 Pneumococcal vaccination Pneumococcal Vaccine (1 of 2 - PCV) [facility] Start: 09-23-2003 PNEUMOCOCCAL VACCINE SERIES (1 - PCV) PNEUMOCOCCAL VACCINE SERIES (1 - PCV) [facility] Start: 09-23-2003 PNEUMOCOCCAL VACCINE SERIES (1 of 2 - PCV) PNEUMOCOCCAL VACCINE SERIES (1 of 2 - PCV) [facility] Start: 03-24-2003 Polio vaccine (2 of 3 - 4-dose series) Polio vaccine (2 of 3 - 4-dose series) [facility] Start: 2001 Varicella vaccine (2 of 2 - 2-dose childhood series) Varicella vaccine (2 of 2 - 2-dose childhood series) [facility] Start: 1998 Varicella vaccine (1 of 2 - 2-dose childhood series) Varicella vaccine (1 of 2 - 2-dose childhood series) [facility] Start: 03-25-1998 COVID-19 VACCINE (#1) COVID-19 VACCINE (#1) [facility] Start: 1997 HEPATITIS B (1 of 3 - 3-dose series) HEPATITIS B (1 of 3 - 3-dose series) [facility] Start: 1997 Hepatitis B vaccine (1 of 3 - 3-dose series) Hepatitis B vaccine (1 of 3 - 3-dose series) [facility] Start: 1997 Hepatitis C screening HEPATITIS C VIRUS SCREENING [facility] Start: 1997 Tetanus vaccination TETANUS [facility] End: 02-07-2025 BD DXA TRABECULAR BONE SCORE (TBS) BD DXA TRABECULAR BONE SCORE (TBS) Radiology Routine Paraplegia (HCC) Idiopathic osteoporosis 1 Occurrences starting 01/09/2024 until 02/07/2025 [facility] Comment on above: 1 Occurrences starting 01/09/2024 until 02/07/2025 BD DXA TRABECULAR KAY NE SCORE (TBS) BD DXA TRABECULAR BONE SCORE (TBS) Radiology Routine Paraplegia (HCC) Idiopathic osteoporosis 08/01/2024 10:40 AM EST [facility] Work Phone: End: 02-07-2025 DXA Skeletal system.axial Views for bone density DXA-AXIAL SKELETON Radiology Routine Paraplegia (HCC) Idiopathic osteoporosis 1 Occurrences starting 01/09/2024 until 02/07/2025 [facility] Comment on above: 1 Occurrences starting 01/09/2024 until 02/07/2025 EKG 12 Lead EKG 12 Lead ECG Routine 10/29/2019 1:12 PM T [facility] [place], [place] EPIL EEG LONG EPIL EEG LONG NE UROLOGY Routine Partial symptomatic epilepsy with complex partial seizures, not intractable, without status epilepticus (HCC) Ordered: 01/25/2024 [facility] Work Phone: Comment on above: Ordered: 01/25/2024 End: 04-15-2025 EPIL EEG LONG EPIL EEG LONG NEUROLOGY Routine Generalized convulsive epilepsy (HCC) 1 Occurrences starting 04/15/2024 until 04/15/2025 [facility] Work Phone: Comment on above: 1 Occurrences starting 04/15/2024 until 04/15/2025 FLUROURODYNAMICS FLUROURODYNAMIC S Procedures Routine Neurogenic bladder Ordered: 01/31/2024 [facility] Work Phone: Comment on above: Ordered: 01/31/2024 End: 07-21-2022 HIV-2 DNA/RNA PCR HIV-2 DNA/RNA PCR Lab Routine ONCE for 1 Occurrences starting 07/21/2022 until 07/21/2022 [facility] Work Phone: Comment on above: ONCE for 1 Occurrences starting 07/21/19 until 07/21/2022 HIV-2 DNA/RNA PCR HIV-2 DNA/RNA PCR Lab Routine 07/21/2022 6:00 AM EST [facility] Work Phone: End: 03-29-2025 MR Brain WO contrast MRI BRAIN WO IVCON Radiology Routine Convulsions, unspecified convulsion type (HCC) 1 Occurrences starting 02/28/2024 until 03/29/2025 [facility] Work Phone: Comment on above: 1 Occurrences starting 02/28/2024 until 03/29/2025 End: 02-07-2025 MR Knee - left WO contrast MRI KNEE WO IVCON LEFT Radiology Routine Effusion of left knee Paraplegia (HCC) Acute pain of left knee 1 Occurrences starting 01/09/2024 until 02/07/2025 [facility] Work Phone: Comment on above: 1 Occurrences starting 01/09/2024 until 02/07/2025 End: 05-17-2025 MR Lumbar spine WO contrast MRI LUMBAR SPINE WO IVCON Radiology Routine History of recent fall History of spinal cord injury Low back pain, unspecified back pain laterality, unspecified chronicity, unspecified whether sciatica present 1 Occurrences starting 04/17/2024 until 05/17/2025 [facility] Comment on above: 1 Occurrences starting 04/17/2024 until 05/17/2025 End: 05-17-2025 MR Thoracic spine WO contrast MRI THORACIC SPINE WO IVCON Radiology Routine History of recent fall History of spinal cord injury Low back pain, unspecified back pain laterality, unspecified chronicity, unspecified whether sciatica present 1 Occurrences starting 04/17/2024 until 05/17/2025 [facility] Comment on above: 1 Occurrences starting 04/17/2024 until 05/17/2025 End: 10-27-2025 MR Thoracic spine WO contrast MRI THORACIC SPINE WO IVCON Radiology Routine Chronic midline thoracic back pain Pathological fracture, other site, initial encounter for fracture 1 Occurrences starting 09/27/2024 until 10/27/2025 [facility] Work Phone: Comment on above: 1 Occurrences starting 09/27/2024 until 10/27/2025 Patient Education Ankle sprain M inor contusion - ED discharge instructions [facility] Work Phone: Patient referral [facility] Work Phone: End: 10-22-2018 Standard ECG ECG ECG STAT One Time for 1 Occurrences starting 10/22/2018 until 10/22/2018 [employer] Comment on above: One Time for 1 Occurrences starting 10/02 until 10/22/2018 End: 06-26-2022 Standard ECG ECG ECG STAT One Time for 1 Occurrences starting 06/26/2022 until 06/26/2022 [employer] Work Phone: Comment on above: One Time for 1 Occurrences starting 06/03 until 06/26/2022 End: 02-07-2025 US Kidney - bilateral and Urinary bladder US KIDNEY/BLADDER Radiology Routine Neurogenic bladder Paraplegia (HCC) 1 Occurrences starting 01/09/2024 until 02/07/2025 [facility] Comment on above: 1 Occurrences starting 01/09/2024 until 02/07/2025 US Kidney - bilatera l and Urinary bladder US KIDNEY/BLADDER Radiology Routine Neurogenic bladder Paraplegia (HCC) 02/08/2024 12:06 PM EDT [facility] Work Phone: XR Lumbar spine AP a nd Lateral XR LUMBAR LIMITED 2V AP/LAT Radiology Routine Mid back pain Fusion of spine of thoracolumbar region 2023 3:41 PM EDT [facility] Work Phone: End: 07-19-2024 XR Lumbar spine AP and Lateral [facility] Comment on above: 1 Occurrences starting 07/19/2024 until 07/19/2024 End: 08-18-2025 XR Lumbar spine AP and Lateral XR LUMBAR LIMITED 2V AP/LAT Radiology Routine Fixation hardware in spine 1 Occurrences starting 07/19/2024 until 08/18/2025 [facility] Comment on above: 1 Occurrences starting 07/19/2024 until 08/18/2025 XR Thoracic spine AP and Lateral XR THORACIC LIMITED 2V AP/LAT Radiology Routine Mid back pain Fusion of spine of thoracolumbar region 2023 3:42 PM EDT [facility] Work Phone: End: 07-19-2024 XR Thoracic spine AP and Lateral [facility] [facility] Work Phone: Comment on above: 1 Occurrences starting 07/19/2024 until 07/19/2024 End: 08-18-2025 XR Thoracic spine AP and Lateral XR THORACIC LIMITED 2V AP/LAT Radiology Routine Mixed hyperlipidemia Fixation hardware in spine 1 Occurrences starting 07/19/2024 until 08/18/2025 [facility] Work Phone: Comment on above: 1 Occurrences starting 07/19/2024 until 08/18/2025 [facility] Immunizations Immunization Date Immunization Notes Care Provider [facility] 07-17-2018 influenza, seasonal, injectable Xr Hosp Work Phone: [facility] 07-17-2018 influenza virus vaccine, unspecified formulation [facility] 06-11-2018 influenza, injectabl e, quadrivalent, preservative free [facility]r [facility] Work Phone: [facility] NEGATED: Highlighted row has not occurred!07-21-2021 influenza virus vaccine, unspecified formulation [facility] Payers Date Payer Category Payer Medicare [id number] 2023 Private Health Insurance [facility] MEDICAID [id number] 2021 Unknown [id number] [id number] .[id number] 2020 Medicaid [id number]. 1.13.159.2 .[id number] 2019 [employer] [id number] 2019 Unknown [facility] OR OTHER [facility] [place] [facility] [place] OR OTHER xxxxxxxxx 2019-Present xxxxxxxxx [id number] .[id number] 2017 Unknown [facility] xxxxxxxxxxx 2017-Present xxxxxxxxxxx 1.2.840.556325.1.13.172.2 .7.3.882607.315 2014 Unknown [id number] 1997 Unknown [id number] 2.840.1.923516.3.579.2 .93 1997 Unknown [id number] 2.840.1.339304.3.579.2 .93 1997 Unknown [id number] 2.16840.1.928355.3.579.2 .93 1997 Unknown [id number] 2.16840.1.070593.3.579.2 .111 1997 Unknown [id number] 2.16840.1.207198.3.579.2 .593 1997 Unknown [id number] 2.16840.1.167890.3.579.2 .593 1997 Unknown [id number] 2.16840.1.083844.3.579.2 .593 1997 Unknown [id number] 2.16.840.1.281860.3.579.2 .175 1997 Unknown [id number] 2.16.840.1.520638.3.579.2 .175 1997 Unknown [id number] 2.16.840.1.844969.3.579.2 .175 1997 Unknown [id number] 2.16.840.1.135445.3.579.2 .175 1997 Unknown [id number] 2.16.840.1.461552.3.579.2 .175 1997 Unknown [id number] 2.16.840.1.220090.3.579.2 .175 1997 Unknown [id number] 2.16.840.1.380610.3.579.2 .983 1997 Unknown [id number] 2.16.840.1.594982.3.579.2 .1259 1997 Unknown [id number] 2.16.840.1.701816.3.579.2 .1259 1997 Unknown [id number] 2.16.840.1.272156.3.579.2 .1259 1997 Unknown [id number] 2.16.840.1.843201.3.579.2 .1259 1997 Unknown [id number] 2.16.840.1.844232.3.579.2 .1259 1997 Unknown [id number] 2.16.840.1.731481.3.579.2 .1259 1997 Unknown [id number] 2.16.840.1.561044.3.579.2 .1286 1997 Unknown [id number] 2.16.840.1.535734.3.579.2 .173 1997 Unknown [id number] 2.16.840.1.618441.3.579.2 .173 1997 Unknown [id number] 2.16.840.1.251104.3.579.2 .173 1997 Unknown [id number] 2.16.840.1.883269.3.579.2 .173 1997 Unknown [id number] 2.16.840.1.506281.3.579.2 .173 1997 Unknown [id number] 2.16.840.1.690562.3.579.2 .173 1997 Unknown [id number] 2.16.840.1.149952.3.579.2 .173 1997 Unknown [id number] 2.16.840.1.524682.3.579.2 .173 1997 Unknown [id number] 2.16.840.1.147613.3.579.2 .173 1997 Unknown [id number] 2.16840.1.729846.3.579.2 .173 1997 Unknown [id number] 2.16.840.1.158086.3.579.2 .173 1997 Unknown [id number] 2.16.840.1.830506.3.579.2 .173 1997 Unknown [id number] 2.16.840.1.794587.3.579.2 .173 1997 Unknown [id number] 2.16.840.1.927747.3.579.2 .173 1997 Unknown [id number] 2.16.840.1.067213.3.579.2 .173 1997 Unknown [id number] 2.16.840.1.271744.3.579.2 .173 1997 Unknown [id number] 2.16.840.1.919275.3.579.2 .727 1997 Unknown [id number] 2.16.840.1.231852.3.579.2 .72 1997 Unknown [id number] 2.16.840.1.454036.3.579.2 727 1997 Unknown [id number] 2.16.840.1.121851.3.579.2 1997 Unknown [id number] 2.16.840.1.049473.3.579.2 72 1997 Unknown [id number] 2.16.840.1.294174.3.579.2 1997 Unknown [id number] 2.16.840.1.006571.3.579.2 1997 Unknown [id number] 2.16.840.1.174731.3.579.2 1997 Unknown [id number] 2.16840.1.753049.3.579.2 1997 Unknown [id number] 2.16.840.1.655191.3.579.2 1997 Unknown [id number] 2.16.840.1.782252.3.579.2 1997 Unknown [id number] 2.16.840.1.543096.3.579.2 1997 Unknown [id number] 2.16840.1.743676.3.579.2 1997 Unknown [id number] 2.16.840.1.406000.3.579.2 1997 Unknown [id number] 2.16.840.1.818533.3.579.2 72 1997 Unknown [id number] 2.16.840.1.077141.3.579.2 .727 1959 Self-pay 1959 Unknown [id number] Unknown [id number] 2.16.840.1.192460.3.579.2 .139 Unknown [id number] 2.16.840.1.055033.3.579.2 .139 Unknown [id number] 2.16.840.1.082418.3.579.2 .139 Unknown [id number] 2.16.840.1.010588.3.579.2 .139 Unknown [id number] 2.16.840.1.474793.3.579.2 .139 Unknown [id number] 2.16.840.1.477277.3.579.2 .139 Unknown [id number] 2.16.840.1.346546.3.579.2 .139 Unknown [id number] 2.16.840.1.864225.3.579.2 .139 Unknown [id number] 2.16.840.1.249696.3.579.2 .139 Unknown [id number] 2.16.840.1.880995.3.579.2 .139 Unknown [id number] 2.16.840.1.283002.3.579.2 .139 Unknown [id number] 2.16.840.1.748850.3.579.2 .139 Unknown [id number] 2.16.840.1.708284.3.579.2 .531 Unknown [id number] 2.16.840.1.694334.3.579.2 .531 Unknown [id number] 2.16.840.1.821035.3.579.2 .531 Social History Date Type Detail Facility Start: 12-20-2017 End: 02-21-2024 Tobacco smoking status [facility] Heavy tobacco smoker [facility] End: 07-03-2020 History of tobacco use Cigarette Smoker [facility] Work Phone: Start: 12-20-2017 End: 07-28-2023 Cigarettes smoked current (pack per day) - Reported [facility] Start: 2017 [facility] Work Phone: Start: 1995 Sex Assigned At Not on file O [facility] Work Phone: Start: 06-10-2019 End: 02-21-2024 Alcohol intake Current drinker of alcohol (finding) [employer] Start: 10-26-2019 End: 12-16-2024 Tobacco smoking status COIS Current every day smoker [facility] Work Phone: Exposure to SARS-CoV -2 (event) Unable to assess [facility] [place], [place] Tobacco Vaping, Yes [facility] Start: 06-28-2022 End: 07-28-2023 Sex Assigned At Female [facility] Start: 06-26-2022 End: 01-09-2024 Tobacco use and exposure Smokeless tobacco non-user [employer] Work Phone: Start: 06-16-2022 End: 06-26-2022 Exposure to SARS-CoV-2 (event) Not sure [employer] Work Phone: Start: 06-26-2022 End: 06-28-2023 Tobacco smoking status COIS Ex-smoker [facility] Start: 11-24-2024 End: 07-03-2020 History of tobacco use Current smoker [employer] Work Phone: Start: 06-28-2022 End: 07-17-2024 Alcohol intake Ex-drinker (finding) [facility] Work Phone: Start: 06-28-2022 History SDOH Alcohol Frequency 2 [facility] Phone: Start: 06-28-2022 History SDOH Alcohol Std Drinks 1 [employer] Work Phone: Tobacco smoking stat us [facility] Tobacco smoking consumption unknown [facility] How often to you hav e a drink containing alcohol? Monthly or less [facility] How many standard dr inks containing alcohol do you have on a typical day? 1 or 2 [facility] How often do you hav e 6 or more drinks on 1 occasion? Never [employer] Start: 1995 Sex Assigned At Female B [facility] [employer] Start: 11-29-2017 Gender identity Identifies as female gender (finding) [facility] Start: 01-23-2023 Sexual orientation Heterosexua l (finding) [facility] Has the electric, ga s, oil, or water company threatened to shut off services in your home in past 12Mo No [facility] (I/We) worried ashley er (my/our) food would run out before (I/we) got money to buy more. Never true [facility] In the past 12 month s, has lack of transportation kept you from medical appointments or from getting medications? No [facility] Start: 01-09-2024 Tobacco Comment [facility] Start: 02-20-2024 End: 05-10-2024 Alcoholic beverage intake Lifetime non-drinker (finding) [facility] Do you belong to any clubs or organizations such as latter day groups, unions, fraternal or athletic groups, or school groups? Yes [facility] Are you now , , , , never or living with a partner? [facility] How hard is it for y ou to pay for the very basics like food, housing, medical care, and heating Not very hard [facility] Do you feel stress - tense, restless, nervous, or anxious, or unable to sleep at night because your mind is troubled all the time - these days [OSQ] Very much [facility] Start: 04-24-2023 Tobacco Comment Smokes 5 or le ss vaping [facility] Start: 10-05-2023 Alcohol Comment caffeine: coffee [facility] Start: 12-30-2012 Sex Female (finding) [facility] [employer] Start: 11-24-2024 Sex Patient sex un known (finding) [facility] NEGATED: Highlighted row [facility] NEGATED: Highlighted row N [facility] Medical Equipment Procedure Code Equipment Code Equipment Original Text Equipment Identifier Dates Set Scr Spnl Merline 4.75mm Ti Brk Off Cdh Solera - [id number] Start: 06-26-2022 Graft Bne Sub W1 xl10cm Spnl Deformity Magnifuse Tx - [id number] Start: 06-26-2022 Screw Bne L5mm D ia1.5mm Univ Self Drl Crss Pin 5/Ea - [id number] Start: 05-05-2023 Screw Spnl Multa xl 6.5x45 Mm For 4.75 Mm Timothy Ats - [id number] Start: 06-26-2022 Screw Spnl Multa xl 7.5x40 Mm For 4.75 Mm Timothy Ats - [id number] Start: 06-26-2022 Timothy Spnl L170mm Mh554ab Sol[facility] - [id number] Start: 06-26-2022 Screw Spnl Multa xl 6.5x35 Mm For 4.75 Mm Timothy Ats - [id number] Start: 06-26-2022 Screw Spnl Multa xl 6.5x40 Mm For 4.75 Mm Timothy Ats - [id number] Start: 06-26-2022 Graft Bne Sub W1 xl5cm Posterolateral Cerv Demin Bne Mtrx - [id number] Start: 06-26-2022 Endcap Spnl 25c H31mm Od25mm Ti Co Chrome Nit E Exp T2 - [id number] Start: 05-05-2023 Screw Spnl L35mm Od8mm Ti Canc Ant Thorlum Pedcl St Fix Ang - [id number] Start: 05-05-2023 Plate Spnl L5cm Std Ant Thor Ti Boring - [id number] Start: 05-05-2023 Plate Bne 16 H Craniomaxillofacial Ti Str Lo Prof W/O Bar - [id number] Start: 05-05-2023 Comment on above: Description: Implanted into rib Clinical Notes 11-10-2021 to 12-16-2024 Note Date & Type Note Facility 12-16-2024 Evaluation note Diagnosis Onset Date Resolution Other fracture of lower end of left tibia, initial encounter for closed fra acute December 16, 2024 10:37am [facility] Work Phone: 1(606) 719-557006-16-2025 Evaluation note* Diagnosis Onset Date Resolution Status Admit Date Other fracture of lower end of left tibia, initial encounter for closed fra acute December 16, 2024 10:37am Other fracture of lower end of left tibia, initial encounter for closed fra acute February 12 12:39pm [facility] Work Phone: 1(997) 631-723606-06-2025 Telephone encounter Note* Telephone Encounter - Kathrin Machado - 12/06/2024 11:10 AM EDT Attempted to call patient to set up VV with Lenora JOINER to discuss braces. Mailbox full. Sent MyChartmessage. [facility]06-06-2025 Miscellaneous Notes* Telephone Encounter - Kathrin Machado - 12/06/2024 11:10 AM EDT Attempted to call patient to set up VV with Lenora JOINER to discuss braces. Mailbox full. Sent MyChartmessage. * Telephone Encounter - Kathrin Machado - 12/05/2024 10:14 AM EDT Darrion from [facility] called regarding patients order for bracing. Order placed for PTB for Right and AFO for Left. Patient had appt and she states her Left is worse and she would like PTB on left and AFO on right. [facility] needs to know if they can switch or if the doctor would like to leave order as written. Darrion is available to discuss patient at [phone]. Let him know that Dr. Benedict is out of the office but I will ask the meteorologist liaison physician. documented in this encounterOhio[facility]06-[facility]25 Telephone encounter Note * Telephone Encounter - Kathrin Machado - 12/05/2024 10:14 AM EDT Darrion from [facility] called regarding patients order for bracing. Order placed for PTB for Right and AFO for Left. Patient had appt and she states her Left is worse and she would like PTB on left and AFO on right. [facility] needs to know if they can switch or if the doctor would like to leave order as written. Darrion is available to discuss patient at [phone]. Let him know that Dr. Benedict is out of the office but I will ask the meteorologist liaison physician. [facility]05-12-2025 Telephone encounter Note* Telephone Encounter - Jerry Newman - 11/11/2024 2:37 PM EDT Called patient to inform them of new office for urology, patient needed to reschedule 11/22/24 appointment to 12/10/24. [facility]05-12-2025 Miscellaneous Notes* Telephone Encounter - Jerry Newman - 11/11/2024 2:37 PM EDT Called patient to inform them of new office for urology, patient needed to reschedule 11/22/24 appointment to 12/10/24. documented in this encounterOhio[facility]05-06-2025 Telephone encounter Note * Telephone Encounter - Naty Benedict MD - 11/05/2024 11:53 AM EDT PMR Prescription for Right PLS AFO and Left Solid ankle AFO Jeferson Benedict MD [facility]05-06-2025 Miscellaneous Notes* Telephone Encounter - Naty Benedict MD - 11/05/2024 11:53 AM EDT PMR Prescription for Right PLS AFO and Left Solid ankle AFO Jeferson Benedict MD documented in this encounterOhiohealth [facility]04-30-2025 History of Present illness Narrative* Mook Henderson - 10/30/2024 9:[address] [facility] Inpatient/Observation/Outpatient Rehabilitation Date: 10/30/2024 Patient Name: Kayleen Kovacs [] Inpatient Acute/Observation [x] Outpatient : 1995 Plan of Care/Recert ends [] Pt refused/declined therapy at this time due to: [x] Pt cancelled due to: [] No Reason Given [] Sick/ill [x] Other: in a lot of pain [] Evaluation held by RN/Provider/Physical Therapist due to: [] High Heart Rate [] High Blood Pressure [] Orthopedic Consult [] Hgb < 7 [] Other: [] Pt ordered brace per physician request: [] Proper fit will be completed and education for wearing/skin checks [] Pt does not require skilled services due to: Therapist/Highway Painter will attempt to see this patient, at our earliest opportunity. Mook Henderson Date: 10/30/2024 Cosigned by Eliecer Nunez, PT at 10/30/2024 9:16 AM EDT documented in this [facility]Bon [facility] Telephone encounter Note* Telephone Encounter - Shasta Garcia - 10/16/2024 4:00 PM EDT Patient last seen on Received outside hospital, [facility] radiology report - MRI Thoracic spine dated: 10/11/24 for Ms. Kovacs. The MRI report was uploaded to the patient's chart. [facility]04-16-2025 Miscellaneous Notes* Telephone Encounter - Shasta Garcia - 10/16/2024 4:00 PM EDT Patient last seen on Received outside hospital, [facility] radiology report - MRI Thoracic spine dated: 10/11/24 for Ms. Kovacs. The MRI report was uploaded to the patient's chart. documented in this encounterOhiohealth [facility]04-14-2025 History of Present illness Narrative* Eliecer Montalvo, PT - 10/14/2024 9:[address] [facility] Outpatient Physical Therapy Daily Note Patient: Kayleen Kovacs : 1995 CSN #: [id number] Referring Physician: Earline Chen APRN - NP Date: 10/14/2024 Treatment Diagnosis: L patella fx, paraplegia Onset Date: 02/28/24 PT Insurance Information: [facility] Total # of Visits Approved: 12 Per Physician Order Total # of Visits to Date: 10 No Show: 0 Canceled Appointment: 2 11/13/24 Plan of Care/Recert Due Pre-Treatment Pain: 5/10 Subjective: Patient reports she has had LBP since her last therapy visit. She reports she has had audible popping in her back and her DrDavian ordered an MRI. She reports 5/10 LBP coming into therapy thatincreases to 6/10 with movement. She reports she has been able to perform her HEP. She would like to avoid sit to stands today until she receives her MRI results. Exercises: Exercise 2: seated HS curls BTB 2x20, LAQ 2# 2x20 Exercise 3: supine: SAQ 2 x15, hip adduction with ball 10 sec hold 2x10, hip abd with BTB resistance 2x15 Exercise 6: Supine: bridge 10x2, SLR 2x10 Exercise 7: [employer] bike 8 mins Modality: Modality Flow Sheet: Performed (X) Tx Modality X Electrical Stim: Nigerien NMES to anterior tibialis, 10 sec on 10 sec off x 10 minutes Assessment Body Structures, Functions, Activity Limitations Requiring Skilled Therapeutic Intervention: Decreased functional mobility , Decreased ADL status, Decreased strength, Decreased ROM, Decreased endurance, Decreased balance, Decreased vision/visual deficit, Decreased high-level IADLs, Increased pain Assessment: The patient has attended her initial evaluation and 9 follow-up appointments alternating land and pool appointments once per week. She cancelled her last two appointments due to back painand recent popping. She had a MRI and is awaiting results. On re-evaluation she has met her ROM goals, but LE strength remains about the same as her last UPOC. She reports she has noticed more toe movement since starting Nigerien NMES for her anterior tibialis. She was able to perform 2 rounds of 10straight leg raises with ~10* of extensor leg which is a improvement since her last UPOC. She wouldlike to continue alternating pool/land appointments to improve LE strength and functional mobility. Activity Tolerance Activity Tolerance: Patient tolerated treatment well Patient Education Patient Education: HEP Pt verbalized/demonstrated good understanding: [x] Yes [] No, pt required further clarification. Post Treatment Pain: 10 Plan Plan Frequency: 1 Plan weeks: 4 Goals (Total # of Visits to Date: 10) Short Term Goals Time Frame for Short Term Goals: 2 weeks Short Term Goal 1: Patient will be initiated with a HEP - MET Short Term Goal 2: Patient will tolerate 30 minutes of therex/act to improve endurance for ADLs. [facility] Goals Time Frame for [facility] Goals : 4 weeks [facility] Goal 1: Patient will be independent and compliant with a HEP [facility] Goal 2: Patient will improve L knee ROM to match R for transfers and general mobility -MET [facility] Goal 3: Patient will improve bilateral LE strength to >/= 4/5 for standing and ambulation -PARTIALLY MET [facility] Goal 4: Patient will be independent with an aquatic exercise program. Minutes Tracking: Time In: 950 Time Out: 1048 Minutes: 57 Timed Code Treatment Minutes: 55 Minutes Eliecer Montalvo PT, DPT, OCS, Cert. DN Date: 10/14/[address] Telephone encounter Note* Telephone Encounter - Everardo Arguelles PA-C - 10/08/2024 10:23 AM EDT The following approved medication requests have been transmitted electronically. Requested Prescriptions Signed Prescriptions Disp Refills zonisamide (ZONEGRAN) 100 mg capsule 60 capsule 5 Sig: Take 2 capsules by mouth daily at bedtime. Authorizing Provider: EVERARDO ARGUELLES PA-C [facility]04-08-2025 Miscellaneous Notes* Telephone Encounter - Everardo Arguelles PA-C - 10/08/2024 10:23 AM EDT The following approved medication requests have been transmitted electronically. Requested Prescriptions Signed Prescriptions Disp Refills zonisamide (ZONEGRAN) 100 mg capsule 60 capsule 5 Sig: Take 2 capsules by mouth daily at bedtime. Authorizing Provider: EVERARDO ARGUELLES PA-C * Telephone Encounter - Joi Silva - 10/08/2024 10:13 AM EDT Prescription Refill: Requested by: pharmacy Please E-Scribe Caller Contact Number: Pharmacy Name: [facility] Pharmacy Number: [phone] Generic/ brand: 30 or 90 day supply requested: 90 Last appointment: 08/27/24 Next Appointment: none Patient of Dr. Jerald Kovacs [phone] [id number] documented in this encounterOhiohealth [facility]04-08-2025 Telephone encounter Note * Telephone Encounter - Joi Silva - 10/08/2024 10:13 AM EDT Prescription Refill: Requested by: pharmacy Please E-Scribe Caller Contact Number: Pharmacy Name: [facility] Pharmacy Number: [phone] Generic/ brand: 30 or 90 day supply requested: 90 Last appointment: 08/27/24 Next Appointment: none Patient of Dr. Jerald Kovacs [phone] [facility] [id number] [facility]03-31-2025 History of Present illness Narrative* Sumit Shafer - 09/30/2024 9:[address] [facility] Outpatient Physical Therapy Daily Note Patient: Kayleen Kovacs : 1995 CSN #: [id number] Referring Physician: Earline Chen APRN - [facility] [employer] Date: 09/30/2024 Diagnosis: Paraplegia, G82.20, displaced comminuted fx of patella, S82.043A Treatment Diagnosis: L patella fx, paraplegia Onset Date: 02/28/24 PT Insurance Information: [facility] Total # of Visits Approved: 12 Per Physician Order Total # of Visits to Date: 9 No Show: 0 Canceled Appointment: 2 10/18/24 Plan of Care/Recert Due Pre-Treatment Pain: 10/10 Subjective: States her knee feels good, states L HIp and LB hurt today--10/10, Pt 15 min late for appt Exercises: Exercise 1: HEP: SLR 2x6, bridge 2x6, gastroc stretch with towel 2x30 seconds Exercise 3: supine: SAQ 2 x15, SLR 3x 5 reps, heel slides x15, hip adduction with ball x15, hip abdmanual resistance x15, quad set x15 Exercise 8: Elevated tx table sit to stands with FWW in front x4 with mod A. Exercise 12: standing in walker x5 Exercise 13: Gastron stret;sully supine and prone Assessment Assessment: Pt 15 min late for appt. Time spent working on standing, stretching gastroc and supine exercisae. Reviewed LB stretclhing and calf stretching to pt spouse with good understanding. Will continue as planned Activity Tolerance Activity Tolerance: Patient tolerated treatment well Patient Education Patient Education: HEP Pt verbalized/demonstrated good understanding: [x] Yes [] No, pt required further clarification. Post Treatment Pain: 10/10 Plan Plan Frequency: 1 Plan weeks: 6 Goals (Total # of Visits to Date: 9) Short Term Goals Time Frame for Short Term Goals: 2 weeks Short Term Goal 1: Patient will be initiated with a HEP - MET Short Term Goal 2: Patient will tolerate 30 minutes of therex/act to improve endurance for ADLs. [facility] Goals Time Frame for [facility] Goals : 4 weeks [facility] Goal 1: Patient will be independent and compliant with a HEP [facility] Goal 2: Patient will improve L knee ROM to match R for transfers and general mobility -MET [facility] Goal 3: Patient will improve bilateral LE strength to >/= 4/5 for standing and ambulation -PARTIALLY MET [facility] Goal 4: Patient will be independent with an aquatic exercise program. Minutes Tracking: Time In: 929 Time Out: 1000 Minutes: 30 Timed Code Treatment Minutes: 29 Minutes Sumit Lopez Date: 09/30/2024 Cosigned by Eliecer Montalvo, PT at 09/30/2024 7:25 PM EDT [facility]-28-[facility] Instructions* Patient Instructions* Naty Benedict MD - 09/27/2024 11:14 AM EDT MRI T spine to assess for compression fracture with ne diagnosis of osteoporosis with continued spine pain despite therapy Continue therapy and prescription given to accelerate with ultrasound or inhibitive casting Continue ankle stretches to improve ROM Refer to Endo to assess and manage low BMD Urology to assess bladder function and elevated cystatin C B/L AFO when ROM improved Repeat cystatin C and Lipid profile F/U in 1 month documented in this encounterOhiohealth [facility]03-28-2025 History of Present illness Narrative* Naty Benedict MD - 09/27/2024 10:30 AM EDT Images from the original note were not included. PM&R/[facility] Attending Outpatient Note Name: Kayleen Kovacs [id number] Date of Service: 09/27/24 Last seen: 07/19/24 Chief complaint: Physical therapy continues, Nutrition consulted for HLD completed, DEXA c/w low BMD, Forgot to see PCP for HLD, Did not see Urology, Xray T-L spine completed and unremarkable. Pt still complains of severe mid to lower back pain that limits ability to walk Patient Summary: Kayleen Kovacs is a 29 yo female with a PMH for Anxiety, Borderline personality disorder, Obesity, Seizure disorder, Polycystic ovary syndrome who was admitted to [facility] on 06/26/22 following a fall due to seizure with suspected SCI due to L1 burst fracture. She was taken to the OR on 06/26/22 by Getachew Leong for T11 - L3 PSDF. Hospital course complicatedby Neuropathic pain and UTI. She was sent to inpatient rehab on 07/08/22 and discharged on 07/28/22. She was admitted to [facility] on 05/05/23 with continued pain with imaging c/w nonhealing L1 fracture. She was taken to the OR on on 05/05/23 by Getachew Mendez for T12 -L2 ASDF with L1 corpectomy and discectomy at T12-L1 and L1-L2. Hospital course complicated by Pulmonary embolism and left hemothorax s/p video assisted thoracoscopy, VATS, chest tube placement and rib fragment removal by Dr Park (05/17/23). PT here for PMR f/u. Interval History: 08/15/24 Nutritional consultation: Nutrition Intervention 08/15/2024: Modify type and amount of food consumed for meals and snacks: Consider protein Shakes (Premier, orgain) 2. Follow heart healthy plate method for meals (1/2 veggies, 1/4 starches/whole grains, 1/4 lean protein, 1-2 tbsp of healthy fats) 08/27/24 Neurology f/u for seizure history Medications: Current Outpatient Medications on File Prior to Visit Medication Sig lamoTRIgine (LAMICTAL) 150 mg tablet Take 1.5 tabs in the morning and 1 tab in the evening every day by mouth. zonisamide (ZONEGRAN) 100 mg capsule Take 1 capsule by mouth daily at bedtime for 7 days, THEN 2 capsules daily at bedtime. ergocalciferol, vitamin D2, (VITAMIN D2 ORAL) Take 50,000 Units by mouth one time a week. ascorbic acid, vitamin C, (VITAMIN C) 500 mg tablet Take 500 mg by mouth once daily. cloNIDine HCl (CATAPRES) 0.3 mg tablet Take 0.3 mg by mouth. ibuprofen (MOTRIN) 800 mg tablet Take 800 mg by mouth three times a day as needed. oxybutynin ER (DITROPAN XL) 10 mg 24 hr tablet Take 10 mg by mouth once daily. pregabalin (LYRICA) 300 mg capsule Take 300 mg by mouth two times a day. ondansetron (ZOFRAN) 4 mg tablet Take 4 mg by mouth every 8 hours as needed for nausea/vomiting. No current facility-administered medications on file prior to visit. ROS copied from previous note and updated as needed She is living with and daughter Her PCP is Dr Lisa Lopez Her sleep is ok. She has sleep apnea but c-pap not helping. Pain = 7 in mid back She has depression and seing psychiatrist She has no signs or sx of respiratory dysfunction. Her spasticity is absent His skin is intact She has no autonomic dysreflexia She has no orthostatic hypotension She has a hx of PE.not on blood thinners Her sensation is better on right side Her strength is better She has some left edema She is continent of bladder in toilet 5x a day with some retention She had 0 bladder infections in 2023 She has a Urologist, Dr Murillo She has no history of Bladder/Kidney stones. Her Bladder/Kidney US was normal 02/08/24 She is continent of bowels with frequent [...] slide board. She stands with therapist for 60 seconds with therapist in walker with left AFO She is independent with wheelchair mobility She has a manual wheelchair with comfort M3 foam cushion. 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 She doesn't drives with hand controls and pulls chair in across her. She has PT 2x a week. Objective Physical Exam: General: BACK: Well healed spinal incision (+) palpable thoracic spine tenderness from T6-8. (-) Straight Leg Test (-) Contralateral Straight leg raise EXT: Right ankle PF contracture at 20 degrees and left at 18 degrees. (trace) peripheral edema, Neurologic: A&O x 3. Sensory exam: See E- ISNCSCI Motor Exam: See E- ISNCSCI DTRs: Right Left Patella 0 0 Achilles 0 0 Clonus Babinski DPR FWR Right - - - - Left - - - - Data Review LABS: Latest Ref Rng 01/15/2024 Cholesterol, Total <200 mg/dL 156 Triglyceride <150 mg/dL 194 (H) HDL Cholesterol >39 mg/dL 23 (L) Non HDL Cholesterol <130 mg/dL 133 (H) Fasting Time hrs 12 VLDL Cholesterol <30 mg/dL 39 (H) TC:HDL Ratio <5.10 6.78 (H) LDL Cholesterol <100 mg/dL 94 LDL:HDL Ratio <2.54 4.09 (H) Cystatin C 0.61 - 0.95 mg/L 1.07 (H) Cystatin C eGFR >=60 mL/min/1.73m 76 Hemoglobin A1C 4.3 - 5.6 % 4.9 Estimated Average Glucose mg/dL 94 Vitamin D 25 Hydroxy 31.0 - 80.0 ng/mL 41.9 Imagin06/26/22 MRI T/L-Spine: Acute burst fracture of [...] AND CENTRAL CANAL IN THIS REGION. 3. OUTSIDEOF THIS REGION UNREMARKABLE THORACOLUMBAR SPINE 02/20/24 Xray Left Knee: Left knee lateral and AP taken in the office today nonweightbearing. Imagesdo demonstrate proximal 1/3 transverse fracture of patella nondisplaced with some early callus. Also note osteomalacia due to paraplegia 04/13/24 MRI Brain: 1. Negative noncontrast seizure protocol MRI of the brain, allowing for motion artifact on the study. No findings to localize seizures. 2. 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 This is technically incompletely characterized in the absence of contrast admi nistration. 05/10/24 Xray Left Knee: AP lateral and oblique nonweightbearing films taken in the office today demonstrate good healing of the transverse fracture of the patella with no displacement as well as healing of the plateau 07/19/24 Xray T/L-Spine: Postoperative changes status post L1 corpectomy with posterior construct and fusion from the T11-L3 levels with interbody fusion cage and and left T12-L2 side plate. The hardware is intact and in unchanged position. No change in alignment. 08/01/24 DXA: THE LOWEST Z-SCORE IS -3.0 IN THE LEFT HIP. 1) DIAGNOSIS (based on BMD alone): BELOW THE EXPECTED RANGE FOR AGE though the expected range for age Assessment Continued low to mid Thoracic Spine Pain limiting function including ambulation despite therapy Low bone mineral density At risk for disuse osteoporosis T9 incomplete paraplegia with improved sensory and stable motor scores Neuropathic pain Neurogenic Bowel with improved continence Neurogenic Bladder with improved continence H/O Left Patella fracture healing per xray (05/10/24) H/O L1 burst fracture s/p T11 - L3 PSDF (06/26/22). H/O Nonhealing L1 fracture s/p T12 -L2 ASDF with L1 corpectomy and discectomy at T12-L1 and L1-L2 (05/05/23). H/O Pulmonary embolism H/O Left hemothorax s/p video assisted thoracoscopy, VATS, chest tube placement and rib fragment removal by Dr Park (05/17/23). Sleep Apnea Anxiety Borderline personality disorder Nocturnal Epilepsy Elevated Cystatin C ODRS = 450 on suboxone and followed by pain management 30 minutes was taken to review records, history, examine patient, and formulate a management plan with > 50% counseling and coordinating care for the patient. Plan MRI T spine to assess for compression fracture with ne diagnosis of osteoporosis with continued spine pain despite therapy Continue therapy and prescription given to accelerate with ultrasound or inhibitive casting Continue ankle stretches to improve ROM Refer to Endo to assess and manage low BMD Urology to assess bladder function and elevated cystatin C B/L AFO when ROM improved Repeat cystatin C and Lipid profile F/U in 1 month Naty Benedict MD Spinal Cord Injury Medicine Attending Physical Medicine & Rehabilitation [phone] documented in this encounterOhiohealth [facility] NoteHNO ID: [id number] Author: NATY BENEDICT MD Service: ? Author Type: Physician Type: Progress Notes Filed: 11/13/2024 11:43 Note Text: PMANDR/SCI Medicine Attending Outpatient Note Name: Kayleen Kovacs [id number] Date of Service: 09/27/24 Last seen: 07/19/24 Chief complaint: Physical therapy continues, Nutrition consulted for HLD completed, DEXA c/w low BMD, Forgot to see PCP for HLD, Did not see Urology, Xray T-L spine completed and unremarkable. Pt still complains of severe mid to lower back pain that limits ability to walk Patient Summary: Kayleen Kovacs is a 29 yo female with a PMH for Anxiety, Borderline personality disorder, Obesity, Seizure disorder, Polycystic ovary syndrome who was admitted to [facility] on 06/26/22 following a fall due to seizure with suspected SCI due to L1 burst fracture. She was taken to the OR on 06/26/22 by Getachew Leong for T11 - L3 PSDF. Hospital course complicated by Neuropathic pain and UTI. She was sent to inpatient rehab on 07/08/22 and discharged on 07/28/22. She was admitted to [facility] on 05/05/23 with continued pain with imaging c/w nonhealing L1 fracture. She was taken to the OR on on 05/05/23 by Getachew Mendez for T12 -L2 ASDF with L1 corpectomy and discectomy at T12-L1 and L1-L2. Hospital course complicated by Pulmonary embolism and left hemothorax s/p video assisted thoracoscopy, VATS, chest tube placement and rib fragment removal by Dr Park (05/17/23). PT here for PMR f/u. Interval History: 08/15/24 Nutritional consultation: Nutrition Intervention 08/15/2024: Modify type and amount of food consumed for meals and snacks: Consider protein Shakes (Premier, orgain) 2. Follow heart healthy plate method for meals (1/2 veggies, 1/4 starches/whole grains, 1/4 lean protein, 1-2 tbsp of healthy fats) 08/27/24 Neurology f/u for seizure history Medications: Current Outpatient Medications on File Prior to Visit Medication Sig lamoTRIgine (LAMICTAL) 150 mg tablet Take 1.5 tabs in the morning and 1 tab in the evening every day by mouth. zonisamide (ZONEGRAN) 100 mg capsule Take 1 capsule by mouth daily at bedtime for 7 days, THEN 2 capsules daily at bedtime. ergocalciferol, vitamin D2, (VITAMIN D2 ORAL) Take 50,000 Units by mouth one time a week. ascorbic acid, vitamin C, (VITAMIN C) 500 mg tablet Take 500 mg by mouth once daily. cloNIDine HCl (CATAPRES) 0.3 mg tablet Take 0.3 mg by mouth. ibuprofen (MOTRIN) 800 mg tablet Take 800 mg by mouth three times a day as needed. oxybutynin ER (DITROPAN XL) 10 mg 24 hr tablet Take 10 mg by mouth once daily. pregabalin (LYRICA) 300 mg capsule Take 300 mg by mouth two times a day. ondansetron (ZOFRAN) 4 mg tablet Take 4 mg by mouth every 8 hours as needed for nausea/vomiting. No current facility-administered medications on file prior to visit. ROS copied from previous note and updated as needed She is living with and daughter Her PCP is Dr Lisa Lopez Her sleep is ok. She has sleep apnea but c-pap not helping. Pain = 7 in mid back She has depression and seing psychiatrist She has no signs or sx of respiratory dysfunction. Her spasticity is absent His skin is intact She has no autonomic dysreflexia She has no orthostatic hypotension She has a hx of PE.not on blood thinners Her sensation is better on right side Her strength is better She has some left edema She is continent of bladder in toilet 5x a day with some retention She had 0 bladder infections in 2023 She has a Urologist, Dr Murillo She has no history of Bladder/Kidney stones. Her Bladder/Kidney US was normal 02/08/24 She is continent of bowels with frequent [...] slide board. She stands with therapist for 60 seconds with therapist in walker with left AFO She is independent with wheelchair mobility She has a manual wheelchair with comfort M3 foam cushion. 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 She doesn't drives with hand controls and pulls chair in across her. She has PT 2x a week. Objective Physical Exam: General: BACK: Well healed spinal incision (+) palpable thoracic spine tenderness from T6-8. (-) Straight Leg Test (-) Contralateral Straight leg raise EXT: Right ankle PF contracture at 20 degrees and left at 18 degrees. (trace) peripheral edema, Neurologic: AANDO x 3. Sensory exam: See E- ISNCSCI Motor Exam: See E- ISNCSCI DTRs: Right Le (more content not included)...[facility]03-24-2025 History of Present illness Narrative* Vaishali De La Vega 09/23/2024 9:15 AM EDT Physical Therapy [facility] Inpatient/Observation/Outpatient Rehabilitation Date: 09/23/2024 Patient Name: Kayleen Kovacs [] Inpatient Acute/Observation [x] Outpatient : 1995 Plan of Care/Recert ends [] Pt refused/declined therapy at this time due to: [x] Pt cancelled due to: [x] No Reason Given [] Sick/ill [] Other: [] Evaluation held by RN/Provider/Physical Therapist due to: [] High Heart Rate [] High Blood Pressure [] Orthopedic Consult [] Hgb < 7 [] Other: [] Pt ordered brace per physician request: [] Proper fit will be completed and education for wearing/skin checks [] Pt does not require skilled services due to: Therapist/Highway Painter will attempt to see this patient, at our earliest opportunity. Vaishali De La Vega Date: 09/23/2024 Cosigned by Sumit Shafer at 09/25/2024 7:34 AM EDT documented in this encounterBon [facility]03-[facility] History of Present illness Narrative* Sumit Shafer - 09/16/2024 10:[address] [facility] Outpatient Physical Therapy Daily Note Patient: Kayleen Kovacs : 1995 CSN #: [id number] Referring Physician: Earline Chen APRN - NP Date: 09/16/2024 Diagnosis: Paraplegia, G82.20, displaced comminuted fx of patella, S82.043A Treatment Diagnosis: L patella fx, paraplegia Onset Date: 02/28/24 PT Insurance Information: [employer] Total # of Visits Approved: 12 Per Physician Order Total # of Visits to Date: 8 No Show: 0 Canceled Appointment: 2 10/18/24 Plan of Care/Recert Due Pre-Treatment Pain: 09/09 Subjective: Pt states her knee is feeling pretty good, states her lB hurts more today. Exercises: Exercise 1: HEP: SLR 2x6, bridge 2x6, gastroc stretch with towel 2x30 seconds Exercise 2: seated HS curls YTB x15, LAQ 2# x15 Exercise 4: Supine PF/DF with therapist assist on L LE x15 Exercise 7: SciFit bike 10 mins Exercise 8: Elevated tx table sit to stands with FWW in front x4 with mod A. Exercise 10: AQ--Walking laps 3 ea forward/backward Exercise 11: AQ--Deep water hang x10' Modality: Modality Flow Sheet: Performed (X) Tx Modality x Electrical Stim: Assessment Assessment: Pt reports with 09/09 knee pain. States her LB hurts a little more today. Worked on standing in walker today and pt was able to stand 1 min before rest needed. Seated exercise performed. No Left ankle DF noted. Tried Nigerien stim at end of session. Activity Tolerance Activity Tolerance: Patient tolerated treatment well Patient Education Patient Education: HEP Pt verbalized/demonstrated good understanding: [x] Yes [] No, pt required further clarification. Post Treatment Pain: 09/09 Plan Plan Frequency: 1 Plan weeks: 6 Goals (Total # of Visits to Date: 8) Short Term Goals Time Frame for Short Term Goals: 2 weeks Short Term Goal 1: Patient will be initiated with a HEP - MET Short Term Goal 2: Patient will tolerate 30 minutes of therex/act to improve endurance for ADLs. Gutter Mouth Cutter Goals Time Frame for Gutter Mouth Cutter Goals : 4 weeks Gutter Mouth Cutter Goal 1: Patient will be independent and compliant with a HEP Chcf Goal 2: Patient will improve L knee ROM to match R for transfers and general mobility -MET Chcf Goal 3: Patient will improve bilateral LE strength to >/= 4/5 for standing and ambulation -PARTIALLY MET Chcf Goal 4: Patient will be independent with an aquatic exercise program. Minutes Tracking: Time In: 1103 Time Out: 1147 Minutes: 44 Timed Code Treatment Minutes: 40 Minutes Sumit Lopez Date: 09/16/2024 Cosigned by Eliecer Montalvo, PT at 09/16/2024 2:17 PM EDT documented in this [facility]25 History of Present illness Narrative* Margareth Hernandez - 09/09/2024 10:[address] [facility] Inpatient/Observation/Outpatient Rehabilitation Date: 09/09/2024 Patient Name: Kayleen Kovacs [] Inpatient Acute/Observation [x] Outpatient : 1995 Plan of Care/Recert ends [] Pt refused/declined therapy at this time due to: [x] Pt cancelled due to: [] No Reason Given [x] Sick/ill [] Other: [] Evaluation held by RN/Provider/Physical Therapist due to: [] High Heart Rate [] High Blood Pressure [] Orthopedic Consult [] Hgb < 7 [] Other: [] Pt ordered brace per physician request: [] Proper fit will be completed and education for wearing/skin checks [] Pt does not require skilled services due to: Therapist/Highway Painter will attempt to see this patient, at our earliest opportunity. Margareth Hernandez Date: 09/09/2024 Cosigned by Sumit Shafer at 09/09/2024 10:09 AM EDT documented in this encounterNaval [facility]03-03-2025 History of Present illness Narrative* Eliecer Montalvo, PT - 09/02/2024 10:[address] [facility] Outpatient Physical Therapy Daily Note Patient: Kayleen Kovacs : 1995 CSN #: [id number] Referring Physician: Earline Chen APRN - NP Date: 09/02/2024 Treatment Diagnosis: L patella fx, paraplegia Onset Date: 02/28/24 PT Insurance Information: [facility] Total # of Visits Approved: 12 Per Physician Order Total # of Visits to Date: 7 No Show: 0 Canceled Appointment: 1 10/18/24 Plan of Care/Recert Due Pre-Treatment Pain: 08/12 Subjective: Irma reports L knee pain has reached 4/10 at worst. She denies follow-up with orthopod. Exercises: Exercise 1: HEP: SLR 2x6, bridge 2x6, gastroc stretch with towel 2x30 seconds Exercise 7: SciFit bike 6 mins Exercise 8: Elevated tx table sit to stands with FWW in front x4 with mod A. Measures obtained for physician update/POC Modality: Modality Flow Sheet: Performed (X) Tx Modality X Electrical Stim: Nigerien to L ankle dorsiflexors x10 minutes, 10 on/30 off Assessment Body Structures, Functions, Activity Limitations Requiring Skilled Therapeutic Intervention: Decreased functional mobility , Decreased ADL status, Decreased strength, Decreased ROM, Decreased endurance, Decreased balance, Decreased vision/visual deficit, Decreased high-level IADLs, Increased pain Assessment: The patient has attended her initial evaluation and 6 follow-up visits since 05/23/24. She reports she's had a lot of other things going on and was last seen a month ago. She reports continued weakness, but has been transferring ok. On re-evaluation she demonstrates improved L knee ROM measuring 0-122* in supine, improved L LE strength, hip flexors 4/5, quads 3/5, hamstrings 4-/5, tibialis anterior 0/5. She requires mod A to perform sit to stand transfers. 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 She also requests Nigerien electrical stimulation to L ankle dorsiflexors for motor activation. Activity Tolerance Activity Tolerance: Patient tolerated treatment well, Patient limited by fatigue Patient Education Patient Education: new HEP Pt verbalized/demonstrated good understanding: [x] Yes [] No, pt required further clarification. Post Treatment Pain: 08/12 Plan Plan Frequency: 1 Plan weeks: 6 Goals (Total # of Visits to Date: 7) Short Term Goals Time Frame for Short Term Goals: 2 weeks Short Term Goal 1: Patient will be initiated with a HEP - MET Short Term Goal 2: Patient will tolerate 30 minutes of therex/act to improve endurance for ADLs. Gutter Mouth Cutter Goals Time Frame for Gutter Mouth Cutter Goals : 4 weeks Gutter Mouth Cutter Goal 1: Patient will be independent and compliant with a HEP Chcf Goal 2: Patient will improve L knee ROM to match R for transfers and general mobility -MET Gutter Mouth Cutter Goal 3: Patient will improve bilateral LE strength to >/= 4/5 for standing and ambulation -PARTIALLY MET Chcf Goal 4: Patient will be independent with an aquatic exercise program. Minutes Tracking: Time In: 1055 Time Out: 1150 Minutes: 55 Timed Code Treatment Minutes: 53 Minutes Eliecer Montalvo PT, DPT, OCS, Cert. DN Date: 09/02/[address]02-25-2025 NoteHNO ID: [id number] Author: REGULO ROME APRN.HARNESS INSPECTOR Service: ? Author Type: Nurse Practitioner Type: Progress Notes Filed: 08/30/2024 15:10 Note Text: [facility] VIRTUAL VISIT I have communicated my name and active licensure. The patient's identity and physical location were verified at the time of this visit. Either the patient or their legal credit representative has been informed of the risks and benefits of -- and alternatives to -- treatment through a remote evaluation and consents to proceed with the evaluation remotely. Patient on video by herself. Lives in [place], [place]. HISTORY OF PRESENT ILLNESS: Kayleen Kovacs is a 28 year old LH female (throws with right) who is diagnosed with generalized epilepsy, paraplegic, substance issues, and presents today for frequent jerks. They are an established patient of Dr. Briones and was last seen on 04/15/2024 by MARISEL Nicole. Seizures: GTC 08/16/2024 Frequent myoclonic jerks. Body jerks. 10 per day to 100's. Depends if stressed or sick. Spills food, drops phone. Feels at times like her brain is skipping. Can not process. ASM's: Lamictal 150mg BID ZNS 200mg QHS (doesn't feel this has helped her) No recent levels. Has current orders to have ASM levels done. Mental Health: [facility](Psychologist) in [place], [place]. Therapist in [place], [place]. In other health, Renal issues along with myoclonic jerks, ?absence also.. Occupation: none Driving: no Mood: variable to flat. Memory: average CURRENT OUTPATIENT MEDICATIONS: Current Outpatient Medications Medication Sig lamoTRIgine (LAMICTAL) 150 mg tablet Take 1 tablet by mouth two times a day. 1 tablet twice a day zonisamide (ZONEGRAN) 100 mg capsule Take 2 capsule by mouth daily at bedtime. ergocalciferol, vitamin D2, (VITAMIN D2 ORAL) Take 50,000 Units by mouth one time a week. ascorbic acid, vitamin C, (VITAMIN C) 500 mg tablet Take 500 mg by mouth once daily. cloNIDine HCl (CATAPRES) 0.3 mg tablet Take [...] day. QUEtiapine (SEROQUEL) 100 mg tablet Take 300 mg by mouth daily at bedtime. Seroquel 25mg Take one pill as needed for anxiety PRN. sertraline (ZOLOFT) 25 mg tablet Take 25 mg by mouth once daily. ondansetron (ZOFRAN) 4 mg tablet Take 4 mg by mouth every 8 hours as needed for nausea/vomiting. No current facility-administered medications for this visit. No past medical history on file. No past surgical history on file. No family history on file. ASSESSMENT: Kayleen Kovacs is a 28 year old female with history of generalized seizures, parplegia, substances issues, immobility issues, Recent GTC two weeks ago. Daily and frequent myoclonic jerks. ? absence clusters also. ZNS was added but patient does not think she has benefitted from this drug.. PLAN: - LABS: pending ZNS, LTG (outside) - Medications: -ZNS 200mg QHS -Lamictal 150mg to 1.5 tabs in am and 1 tab in pm. (225-150) -Continue with all other daily medications -Follow all seizure precautions and safety measures. - Consults: none - Follow up: Call back with update in 2 weeks to see if increased LTG has helped. I spent 15 minutes during this encounter counseling on seizure types, medications, limitations, general health, lifestyle, documentation. Regulo Rome APRN.HARNESS INSPECTOR [facility] History of Present illness Narrative* Regulo Rome, KATLYN.HARNESS INSPECTOR - 08/27/2024 2:52 PM EST [facility] VIRTUAL VISIT I have communicated my name and active licensure. The patient's identity and physical location wereverified at the time of this visit. Either the patient or their legal credit representative has been informed of the risks and benefits of -- and alternatives to -- treatment through a remote evaluation andconsents to proceed with the evaluation remotely. Patient on video by herself. Lives in [place], [place]. HISTORY OF PRESENT ILLNESS: Kayleen Kovacs is a 28 year old LH female (throws with right) who is diagnosed with generalizedepilepsy, paraplegic, substance issues, and presents today for frequent jerks. They are an established patient of Dr. Briones and was last seen on 04/15/2024 by MARISEL Nicole. Seizures: GTC 08/16/2024 Frequent myoclonic jerks. Body jerks. 10 per day to 100's. Depends if stressed or sick. Spills food, drops phone. Feels at times like her brain is skipping. Can not process. ASM's: Lamictal 150mg BID ZNS 200mg QHS (doesn't feel this has helped her) No recent levels. Has current orders to have ASM levels done. Mental Health: [facility](Psychologist) in [place], [place]. Therapist in [place], [place]. In other health, Renal issues along with myoclonic jerks, ?absence also.. Occupation: none Driving: no Mood: variable to flat. Memory: average CURRENT OUTPATIENT MEDICATIONS: Current Outpatient Medications Medication Sig lamoTRIgine (LAMICTAL) 150 mg tablet Take 1 tablet by mouth two times a day. 1 tablet twice a day zonisamide (ZONEGRAN) 100 mg capsule Take 2 capsule by mouth daily at bedtime. ergocalciferol, vitamin D2, (VITAMIN D2 ORAL) Take 50,000 Units by mouth one time a week. ascorbic acid, vitamin C, (VITAMIN C) 500 mg tablet Take 500 mg by mouth once daily. cloNIDine HCl (CATAPRES) 0.3 mg tablet Take [...] day. QUEtiapine (SEROQUEL) 100 mg tablet Take 300 mg by mouth daily at bedtime. Seroquel 25mg Take one pill as needed for anxiety PRN. sertraline (ZOLOFT) 25 mg tablet Take 25 mg by mouth once daily. ondansetron (ZOFRAN) 4 mg tablet Take 4 mg by mouth every 8 hours as needed for nausea/vomiting. No current facility-administered medications for this visit. No past medical history on file. No past surgical history on file. No family history on file. ASSESSMENT: Kayleen Kovacs is a 28 year old LH female with history of generalized seizures, parplegia, substances issues, immobility issues, Recent GTC two weeks ago. Daily and frequent myoclonic jerks. ? absence clusters also. ZNS was added but patient does not think she has benefitted from this drug.. PLAN: - LABS: pending ZNS, LTG (outside) - Medications: -ZNS 200mg QHS -Lamictal 150mg to 1.5 tabs in am and 1 tab in pm. (225-150) -Continue with all other daily medications -Follow all seizure precautions and safety measures. - Consults: none - Follow up: Call back with update in 2 weeks to see if increased LTG has helped. I spent 15 minutes during this encounter counseling on seizure types, medications, limitations, general health, lifestyle, documentation. Regulo Rome APRN.ISAAC August 27, 2024 documented in this encounterOhio[facility] NoteHNO ID: [id number] Author: KAITY MARLEY RD Service: ? Author Type: Registered Dietitian Type: Progress Notes Filed: 08/15/2024 14:01 Note Text: [facility] Nutrition Therapy: Virtual Consult - Initial Assessment I have communicated my name and active licensure. The patient?s identity and physical location were verified at the time of this visit. Either the patient or their legal credit representative has been informed of the risks and benefits of -- and alternatives to -- treatment through a remote evaluation and consents to proceed with the evaluation remotely. Nutrition Diagnosis: Overweight/obesity, related to, decreased energy needs and physical inactivity, as evidenced by BMI above normative standard for age and gender. RECOMMENDED MALNUTRITION DIAGNOSIS: NO MALNUTRITION IDENTIFIED NUTRITION CARE PLAN Nutrition Intervention 08/15/2024: Modify type and amount of food consumed for meals and snacks: Consider protein Shakes (Premier, orgain) 2. Follow heart healthy plate method for meals (1/2 veggies, 1/4 starches/whole grains, 1/4 lean protein, 1-2 tbsp of healthy fats) Nutrition Monitoring AND Evaluation: 1. Weight loss 1-2lbweek Need for Follow up: 6 week Patient presents for an initial virtual nutrition consult with mixed hyperlipidemia. Labs from 01/15/24 reveals an elevated triglyceride level of 194 mg mg/dL.Pt has been on phentermine in past for weight loss. Diet history reveals adequate fruit intake, inadequate protein, veggies, whole grains/fiber , omega 3/fish intake and excessive saturated fat and carb intake. Water intake adequate. Paraplegia/paralyzed waist down. 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 RMR can't be calculated - Weight unrecorded in last 120 days. Malnutrition Screening Significant unintentional weight loss? No Eating less than 75% of usual intake for more than 2 weeks? No Potential Signs of Inflammation: no identifiable sources Education Materials Provided: Heart Healthy Plate and Snack Ideas READINESS TO LEARN Cognitive ability: Alert and oriented Motivation to learn: Interested Family support: Unable to assess - Family not present Instruction provided to: Patient Patient learns best by: Multiple Methods Factors affecting learning: None Physical limitations affecting learning: None Referred by: Jak NAVA Billing Type: Initial Assess/15 min 2 units SIGNATURE: Kaity Marley RD PATIENT NAME: Kayleen Kovacs DATE: August 15, 2024 TIME: 11:00 AM PAGER:[facility]02-13-2025 History of Present illness Narrative* Kaity Marley RD - 08/15/2024 11:00 AM EST [facility] Nutrition Therapy: Virtual Consult - Initial Assessment I have communicated my name and active licensure. The patient s identity and physical location wereverified at the time of this visit. Either the patient or their legal credit representative has been informed of the risks and benefits of -- and alternatives to -- treatment through a remote evaluation andconsents to proceed with the evaluation remotely. Nutrition Diagnosis: Overweight/obesity, related to, decreased energy needs and physical inactivity, as evidenced by BMI above normative standard for age and gender. RECOMMENDED MALNUTRITION DIAGNOSIS: NO MALNUTRITION IDENTIFIED NUTRITION CARE PLAN Nutrition Intervention 08/15/2024: Modify type and amount of food consumed for meals and snacks: Consider protein Shakes (Premier, orgain) 2. Follow heart healthy plate method for meals (1/2 veggies, 1/4 starches/whole grains, 1/4 lean protein, 1-2 tbsp of healthy fats) Nutrition Monitoring & Evaluation: 1. Weight loss 1-2lbweek Need for Follow up: 6 week Patient presents for an initial virtual nutrition consult with mixed hyperlipidemia. Labs from 01/15/24 reveals an elevated triglyceride level of 194 mg mg/dL.Pt has been on phentermine in past for weight loss. Diet history reveals adequate fruit intake, inadequate protein, veggies, whole grains/fiber , omega 3/fish intake and excessive saturated fat and carb intake. Water intake adequate. Paraplegia/paralyzed waist down. 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 RMR can't be calculated - Weight unrecorded in last 120 days. Malnutrition Screening Significant unintentional weight loss? No Eating less than 75% of usual intake for more than 2 weeks? No Potential Signs of Inflammation: no identifiable sources Education Materials Provided: Heart Healthy Plate and Snack Ideas READINESS TO LEARN Cognitive ability: Alert and oriented Motivation to learn: Interested Family support: Unable to assess - Family not present Instruction provided to: Patient Patient learns best by: Multiple Methods Factors affecting learning: None Physical limitations affecting learning: None Referred by: Jak NAVA Billing Type: Initial Assess/15 min 2 units SIGNATURE: Kaity Marley RD PATIENT NAME: Kayleen Kovacs DATE: August 15, 2024 TIME: 11:00 AM PAGER: documented in this encounterOhio[facility]02-03-2025 Telephone encounter Note * Telephone Encounter - Shasta Garcia - 08/05/2024 11:05 AM EST Ms. Kovacs's appointment with Dr. Benedict is scheduled on 09/13/24. [facility]02-[facility] Miscellaneous Notes* Telephone Encounter - Shasta Garcia - 08/05/2024 11:05 AM EST Ms. Kovacs's appointment with Dr. Benedict is scheduled on 09/13/24. documented in this encounterOhiohealth [facility]02-03-2025 History of Present illness Narrative* Isidro Fowler PTA - 08/05/2024 8:[address] [facility] Outpatient Physical Therapy Daily Note Patient: Kayleen Kovacs : 1995 CSN #: [id number] Referring Physician: Earline Chen APRN - NP Date: 08/05/2024 Treatment Diagnosis: L patella fx, paraplegia Onset Date: 02/28/24 PT Insurance Information: [facility] Total # of Visits Approved: 6 Per Physician Order Total # of Visits to Date: 5 No Show: 0 Canceled Appointment: 1 07/05/24 Plan of Care/Recert Due Pre-Treatment Pain: 12/10 Subjective: Pt states she had a xray on her back that showed DDD and scoliosis. Pt states her knee and back have still been hurting but shes been trying to do more at home. Exercises: Exercise 2: seated HS curls YTB x15, LAQ 2# x15 Exercise 3: supine: SAQ 2 x15, SLR 3x 5 reps, heel slides x15, hip adduction with ball x15, hip abdmanual resistance x15, quad set x15 Exercise 4: Supine PF/DF with therapist assist on L LE x15 Exercise 6: Supine: bridge 10x Exercise 7: SciFit bike 6 mins Exercise 8: Seated EOB: knee blocked forward rock to mimic stand 5x Assessment Assessment: Began weight shifts in sitting to initiate standing motion. Pt with little quad activation during stand but displays high fear of falling. Activity Tolerance Activity Tolerance: Patient tolerated treatment well, Patient limited by fatigue Patient Education Patient Education: Exercise rationale. Pt verbalized/demonstrated good understanding: [x] Yes [] No, pt required further clarification. Post Treatment Pain: 4/10 Plan Plan Frequency: 1 Plan weeks: 6 Goals (Total # of Visits to Date: 5) Short Term Goals Time Frame for Short Term Goals: 2 weeks Short Term Goal 1: Patient will be initiated with a HEP - MET Short Term Goal 2: Patient will tolerate 30 minutes of therex/act to improve endurance for ADLs. Gutter Mouth Cutter Goals Time Frame for Gutter Mouth Cutter Goals : 4 weeks Gutter Mouth Cutter Goal 1: Patient will be independent and compliant with a HEP Gutter Mouth Cutter Goal 2: Patient will improve L knee ROM to match R for transfers and general mobility. Chcf Goal 3: Patient will improve bilateral LE strength to >/= 4/5 for standing and ambulation. Gutter Mouth Cutter Goal 4: Patient will be independent with an aquatic exercise program. Minutes Tracking: Time In: 08 Time Out: 929 Minutes: 41 Timed Code Treatment Minutes: 39 Minutes Isidro Fowler PTA Date: 08/05/[address] [facility] History of Present illness Narrative* Darvin Marx RT(R) - 08/01/2024 10:00 AM EST Radiology Service Progress Note PATIENT NAME: Kayleen Kovacs DATE OF SERVICE: August 01, 2024 TIME: 10:39 AM PATIENT IDENTITY VERIFICATION COMPLETED USING TWO (2) IDENTIFIERS: Name and Date of confirmedby patient verbally. FALL SCREENING: Has the patient had 2 falls in the last year or 1 fall with injury or currently using an Ambulatory Assistive Device (Walker, Cane, Wheelchair, Crutches, etc.)? No PATIENT GENDER DATA: Assigned female at . status: : No status:N/A PATIENT RELEVANT IMPLANT DATA REVIEWED: Not Applicable PATIENT PRESENTS WITH AN IMPLANTABLE OR ATTACHED TABLET TECHNICIAN: No RADIOLOGY DEPARTMENT: Bone Density PERIPHERAL IV DATA: Not applicable SIGNED BY: RT Ross(Roland) August 01, 2024 10:39 AM documented in this encounterOhiohealth [facility]01-30-2025 NoteHNO ID: [id number] Author: DARVIN MARX RT(R) Service: Radiology Author Type: Technologist Type: Progress Notes Filed: 08/01/2024 10:39 Note Text: Radiology Service Progress Note PATIENT NAME: Kayleen Kovacs DATE OF SERVICE: August 01, 2024 TIME: 10:39 AM PATIENT IDENTITY VERIFICATION COMPLETED USING TWO (2) IDENTIFIERS: Name and Date of confirmed by patient verbally. FALL SCREENING: Has the patient had 2 falls in the last year or 1 fall with injury or currently using an Ambulatory Assistive Device (Walker, Cane, Wheelchair, Crutches, etc.)? No PATIENT GENDER DATA: Assigned female at . status: : No status: N/A PATIENT RELEVANT IMPLANT DATA REVIEWED: Not Applicable PATIENT PRESENTS WITH AN IMPLANTABLE OR ATTACHED TABLET TECHNICIAN: No RADIOLOGY DEPARTMENT: Bone Density PERIPHERAL IV DATA: Not applicable SIGNED BY: ADELSO Hawkins) August 01, 2024 10:39 AM[facility] Tele[facility] encounter Note* Telephone Encounter - Everardo Arguelles PA-C - 07/29/2024 3:45 PM EST The following approved medication requests have been transmitted electronically. Requested Prescriptions Signed Prescriptions Disp Refills lamoTRIgine (LAMICTAL) 150 mg tablet 180 tablet 1 Sig: Take 1 tablet by mouth two times a day. 1 tablet twice a day Authorizing Provider: EVERARDO ARGUELLES PA-C [facility]01-27-2025 Miscellaneous Notes* Telephone Encounter - Everardo Arguelles PA-C - 07/29/2024 3:45 PM EST The following approved medication requests have been transmitted electronically. Requested Prescriptions Signed Prescriptions Disp Refills lamoTRIgine (LAMICTAL) 150 mg tablet 180 tablet 1 Sig: Take 1 tablet by mouth two times a day. 1 tablet twice a day Authorizing Provider: EVERARDO ARGUELLES PA-C * Telephone Encounter - Joi Silva - 07/29/2024 3:13 PM EST Prescription Refill: Requested by: patient Please E-Scribe Caller Contact Number: Pharmacy Name: [facility] Number: [phone] Generic/ brand: 30 or 90 day supply requested: 90 Last appointment: 04/15/24 Next Appointment: 08/23/[address] Jerald Kovacs [phone] [facility] [id number] documented in this encounterOhiohealth [facility]01-27-2025 Telephone encounter Note * Telephone Encounter - Joi Silva - 07/29/2024 3:13 PM EST Prescription Refill: Requested by: patient Please E-Scribe Caller Contact Number: Pharmacy Name: [facility] Number: [phone] Generic/ brand: 30 or 90 day supply requested: 90 Last appointment: 04/15/24 Next Appointment: 08/23/[address] Jerald Kovacs [phone] [facility] [id number] [facility]01-17-2025 History of Present illness Narrative* Vern Goff Tech - 07/19/2024 1:00 PM EST Radiology Service Progress Note PATIENT NAME: Kayleen Barbosaallan DATE OF SERVICE: July 19, 2024 TIME: 1:08 PM PATIENT IDENTITY VERIFICATION COMPLETED USING TWO (2) IDENTIFIERS: Name and Date of confirmedby patient verbally. FALL SCREENING: Has the patient had 2 falls in the last year or 1 fall with injury or currently using an Ambulatory Assistive Device (Walker, Cane, Wheelchair, Crutches, etc.)? Yes, Patient High Riskfor Falls What interventions were put in place to prevent falls during this visit? Offered Assistance with Transfers/Clothing PATIENT GENDER DATA: Assigned female at . status: : No status:NO. PATIENT RELEVANT IMPLANT DATA REVIEWED: Not Applicable PATIENT PRESENTS WITH AN IMPLANTABLE OR ATTACHED TABLET TECHNICIAN: No RADIOLOGY DEPARTMENT: General X-ray: Exam(s) Completed: Spine X-Ray(s): Thoracic lumbar ap/lat PERIPHERAL IV DATA: Not applicable SIGNED BY: Ronnie Hernandez July 19, 2024 1:08 PM documented in this encounterOhiohealth [facility]01-17-2025 NoteHNO ID: [id number] Author: VERN GOFF Tech Service: ? Author Type: Agronomy Advisor Type: Progress Notes Filed: 07/19/2024 13:08 Note Text: Radiology Service Progress Note PATIENT NAME: Kayleen Kovacs DATE OF SERVICE: July 19, 2024 TIME: 1:08 PM PATIENT IDENTITY VERIFICATION COMPLETED USING TWO [...] place to prevent falls during this visit? Offered Assistance with Transfers/Clothing PATIENT GENDER DATA: Assigned female at . status: : No status: NO. PATIENT RELEVANT IMPLANT DATA REVIEWED: Not Applicable PATIENT PRESENTS WITH AN IMPLANTABLE OR ATTACHED TABLET TECHNICIAN: No RADIOLOGY DEPARTMENT: General X-ray: Exam(s) Completed: Spine X-Ray(s): Thoracic lumbar ap/lat PERIPHERAL IV DATA: Not applicable SIGNED BY: Ronnie Hernandez July 19, 2024 1:08 [place]01-17-2025 Instructions* Patient Instructions* Naty Benedict MD - 07/19/2024 12:45 PM EST Continue physical therapy Nutrition consulted for HLD Obtain DEXA as ordered F/U with PCP for HLD F/U with Urology to assess bladder function and elevated cystatin C Xray T-L spine to assess for hardware failure F/U in 1 month to repeat examination and facilitate rehab needs. documented in this encounterOhiohealth [facility]ide [facility]01-17-2025 NoteHNO ID: [id number] Author: NATY BENEDICT MD Service: ? Author Type: Physician Type: Progress Notes Filed: 07/22/2024 09:14 Note Text: PMANDR/[facility]I Medicine Attending Outpatient Note Name: Kayleen Kovacs [id number] Date of Service: 07/19/24 Last seen: 01/09/24 MRI Knee to assess for ligament injury [...] trauma and assess for pain management needs Chief complaint: Pt had virtual appointment with Dr Gillian Millan Onset: popping in back when bends over around 07/03/24 Location: mid to lower Character: achy-stab shooting Radiation: up and down spine Intensity: 9 when it hits Duration: daily Palliative: laying on side with heat Provocative: bending over or turning to right Treatment that did not help:: ice Hx of Injury: Patient Summary: Kayleen Kovacs is a 28 yo female with a PMH for Anxiety, Borderline personality disorder, Obesity, Seizure disorder, Polycystic ovary syndrome who was admitted to [facility] on 06/26/22 following a fall due to seizure with suspected SCI due to L1 burst fracture. She was taken to the OR on 06/26/22 by Getachew Leong for T11 - L3 PSDF. Hospital course complicated by Neuropathic pain and UTI. She was sent to inpatient rehab on 07/08/22 and discharged on 07/28/22. She was admitted to [facility] on 05/05/23 with continued pain with imaging c/w nonhealing L1 fracture. She was taken to the OR on on 05/05/23 by Getachew Mendez for T12 -L2 ASDF with L1 corpectomy and discectomy at T12-L1 and L1-L2. Hospital course complicated by Pulmonary embolism and left hemothorax s/p video assisted thoracoscopy, VATS, chest tube placement and rib fragment removal by Dr Park (05/17/23). Medications: Current Outpatient Medications on File Prior to Visit Medication Sig zonisamide (ZONEGRAN) 100 mg capsule Take 1 capsule by mouth daily at bedtime for 7 days, THEN 2 capsules daily at bedtime. ergocalciferol, vitamin D2, (VITAMIN D2 ORAL) Take 50,000 Units by mouth one time a week. lamoTRIgine (LAMICTAL) 150 mg tablet 1 tablet twice a day cloNIDine HCl (CATAPRES) 0.3 mg tablet Take 0.3 mg by mouth. ibuprofen (MOTRIN) 800 mg tablet Take 800 mg by mouth three times a day as needed. oxybutynin ER (DITROPAN XL) 10 mg 24 hr tablet Take 10 mg by mouth once daily. pregabalin (LYRICA) 300 mg capsule Take 300 mg by mouth two times a day. QUEtiapine (SEROQUEL) 100 mg tablet Take 200 mg by mouth daily at bedtime. sertraline (ZOLOFT) 25 mg tablet Take 25 mg by mouth once daily. ondansetron (ZOFRAN) 4 mg tablet Take 4 mg by mouth every 8 hours as needed for nausea/vomiting. ascorbic acid, vitamin C, (VITAMIN C) 500 mg tablet Take 500 mg by mouth once daily. aspirin/acetaminophen/caffeine (EXCEDRIN EXTRA STRENGTH ORAL) Take by mouth two times a day. phentermine HCl (ADIPEX-P ORAL) Take by mouth once daily. Take 30 mg by mouth two times a day. baclofen 15 mg tablet Take 1 tablet by mouth three times a day. (Patient taking differently: Take 20 mg by mouth three times a day.) No current facility-administered medications on file prior to visit. ROS copied from previous note and updated as needed She is living with and daughter Her PCP is Dr Lisa Lopez Her sleep is crummy. She has sleep apnea but c-pap not helping. Pain = 7-10 in left knee from recentfall. She has [...] in toilet 5x a day with some retention She had 0 bladder infections in 2023 She has a Urologist, Dr Murlilo She has no history of Bladder/Kidney stones. Her Bladder/Kidney US was normal 02/08/24 She is continent of bowels with frequent [...] with slide board. She stands with therapist fo (more content not included)...[facility]01-17-2025 History of Present illness Narrative* Naty Benedict MD - 07/19/2024 12:05 PM EST PM&R/[facility]I Medicine Attending Outpatient Note Name: Kayleen Kovacs [id number] Date of Service: 07/19/24 Last seen: 01/09/24 MRI Knee to assess for ligament injury [...] trauma and assess for pain management needs Chief complaint: Pt had virtual appointment with Dr Gillian Millan Onset: popping in back when bends over around 07/03/24 Location: mid to lower Character: achy-stab shooting Radiation: up and down spine Intensity: 9 when it hits Duration: daily Palliative: laying on side with heat Provocative: bending over or turning to right Treatment that did not help:: ice Hx of Injury: Patient Summary: Kayleen Kovacs is a 28 yo female with a PMH for Anxiety, Borderline personality disorder, Obesity, Seizure disorder, Polycystic ovary syndrome who was admitted to [facility] on 06/26/22 following a fall due to seizure with suspected SCI due to L1 burst fracture. She was taken to the OR on 06/26/22 by Getachew Leong for T11 - L3 PSDF. Hospital course complicatedby Neuropathic pain and UTI. She was sent to inpatient rehab on 07/08/22 and discharged on 07/28/22. She was admitted to [facility] on 05/05/23 with continued pain with imaging c/w nonhealing L1 fracture. She was taken to the OR on on 05/05/23 by Getachew Mendez for T12 -L2 ASDF with L1 corpectomy and discectomy at T12-L1 and L1-L2. Hospital course complicated by Pulmonary embolism and left hemothorax s/p video assisted thoracoscopy, VATS, chest tube placement and rib fragment removal by Dr Park (05/17/23). Medications: Current Outpatient Medications on File Prior to Visit Medication Sig zonisamide (ZONEGRAN) 100 mg capsule Take 1 capsule by mouth daily at bedtime for 7 days, THEN 2 capsules daily at bedtime. ergocalciferol, vitamin D2, (VITAMIN D2 ORAL) Take 50,000 Units by mouth one time a week. lamoTRIgine (LAMICTAL) 150 mg tablet 1 tablet twice a day cloNIDine HCl (CATAPRES) 0.3 mg tablet Take 0.3 mg by mouth. ibuprofen (MOTRIN) 800 mg tablet Take 800 mg by mouth three times a day as needed. oxybutynin ER (DITROPAN XL) 10 mg 24 hr tablet Take 10 mg by mouth once daily. pregabalin (LYRICA) 300 mg capsule Take 300 mg by mouth two times a day. QUEtiapine (SEROQUEL) 100 mg tablet Take 200 mg by mouth daily at bedtime. sertraline (ZOLOFT) 25 mg tablet Take 25 mg by mouth once daily. ondansetron (ZOFRAN) 4 mg tablet Take 4 mg by mouth every 8 hours as needed for nausea/vomiting. ascorbic acid, vitamin C, (VITAMIN C) 500 mg tablet Take 500 mg by mouth once daily. aspirin/acetaminophen/caffeine (EXCEDRIN EXTRA STRENGTH ORAL) Take by mouth two times a day. phentermine HCl (ADIPEX-P ORAL) Take by mouth once daily. Take 30 mg by mouth two times a day. baclofen 15 mg tablet Take 1 tablet by mouth three times a day. (Patient taking differently: Take 20 mg by mouth three times a day.) No current facility-administered medications on file prior to visit. ROS copied from previous note and updated as needed She is living with and daughter Her PCP is Dr Lisa Lopez Her sleep is crummy. She has sleep apnea but c-pap not helping. Pain = 7-10 in left knee from recentfall. She has [...] in toilet 5x a day with some retention She had 0 bladder infections in 2023 She has a Urologist, Dr Murillo She has no history of Bladder/Kidney stones. Her Bladder/Kidney US was normal 02/08/24 She is continent of bowels with frequent [...] manual wheelchair with comfort M3 foam cushion. 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 She doesn't drives with hand controls and pulls chair in across her. She has PT 2x a week. Objective Physical Exam: General: cooperative BACK: () ROM, (+) palpable LBP (-) Straight Leg Test (-) Contralateral Straight leg raise EXT: (N) ROM (-) peripheral edema, Neurologic: A&O x 3. Sensory exam: See E- ISNCSCI Motor Exam: See E- ISNCSCI Right Left Hip Flexors 4 4 Knee Extensors 5 4 Dorsiflexors 3+ 0 Extensor Hallicis Longus 4 0 Plantar Flexors 5 1 Data Review LABS: Latest Ref Rng 01/15/2024 Cholesterol, Total <200 mg/dL 156 Triglyceride <150 mg/dL 194 (H) HDL Cholesterol >39 mg/dL 23 (L) Non HDL Cholesterol <130 mg/dL 133 (H) Fasting Time hrs 12 VLDL Cholesterol <30 mg/dL 39 (H) TC:HDL Ratio <5.10 6.78 (H) LDL Cholesterol <100 mg/dL 94 LDL:HDL Ratio <2.54 4.09 (H) Cystatin C 0.61 - 0.95 mg/L 1.07 (H) Cystatin C eGFR >=60 mL/min/1.73m 76 Hemoglobin A1C 4.3 - 5.6 % 4.9 Estimated Average Glucose mg/dL 94 Vitamin D 25 Hydroxy 31.0 - 80.0 ng/mL 41.9 Imagin06/26/22 MRI T/L-Spine: Acute burst fracture of [...] AND CENTRAL CANAL IN THIS REGION. 3. OUTSIDEOF THIS REGION UNREMARKABLE THORACOLUMBAR SPINE 02/20/24 Xray Left Knee: Left knee lateral and AP taken in the office today nonweightbearing. Imagesdo demonstrate proximal 1/3 transverse fracture of patella nondisplaced with some early callus. Also note osteomalacia due to paraplegia 04/13/24 MRI Brain: 1. Negative noncontrast seizure protocol MRI of the brain, allowing for motion artifact on the study. No findings to localize seizures. 2. 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 This is technically incompletely characterized in the absence of contrast admi nistration. 05/10/24 Xray Left Knee: AP lateral and oblique nonweightbearing films taken in the office today demonstrate good healing of the transverse fracture of the patella with no displacement as well as healing of the plateau Assessment Popping in back with position changes and will need to r/o hardware failure Left Patella fracture healing per xray At risk for disuse osteoporosis T6 incomplete paraplegia with improved motor scores L1 burst fracture s/p T11 - L3 PSDF (06/26/22). Nonhealing L1 fracture s/p T12 -L2 ASDF with L1 corpectomy and discectomy at T12-L1 and L1-L2 (05/05/23). Neuropathic pain Neurogenic Bowel with improved continence Neurogenic Bladder with improved continence Neuropathic pain H/O Pulmonary embolism Left hemothorax s/p video assisted thoracoscopy, VATS, chest tube placement and rib fragment removal by Dr Park (05/17/23). Sleep Apnea Anxiety Borderline personality disorder Nocturnal Epilepsy Elevated Cystatin C ODRS = 530 and followed by pain management 25 minutes was taken to review records, history, examine patient, and formulate a management plan with > 50% counseling and coordinating care for the patient. Plan Continue physical therapy Nutrition consulted for HLD Obtain DEXA as ordered F/U with PCP for HLD F/U with Urology to assess bladder function and elevated cystatin C Xray T-L spine to assess for hardware failure F/U in 1 month to repeat examination and facilitate rehab needs. Naty Benedict MD Spinal Cord Injury Medicine Attending Physical Medicine & Rehabilitation [phone] * Carolann Mccarthy MA - 07/19/2024 11:44 AM EST 07/18/2024 PROMIS Global Health Physical Health Summary Physical health: Poor Everyday physical activity, ability: Not at all Fatigue: Very severe Pain level: 8 General health: Poor Social activities/roles, ability: Poor Physical Health T-Score 19.9 (Poor) Physical Health Percentile 0 PROMIS Global Health Mental Health Summary Quality of life: Poor Mental health (mood,thinking): Poor Social satisfaction: Poor Emotional problems (anxious,depressed): Always Mental Health T-Score 21.2 (Poor) Mental Health Percentile 0 PHQ-9 Score: 16(Moderately Severe Depression) PHQ-9 Self-Harm: Not at all MOE-7 Score: 16(Severe Anxiety) NEURO-QOL Cognitive Function T-Score 44(Mild Dysfunction) PROMIS Physical Function T-Score 22(Severe Dysfunction) PROMIS Physical Function Percentile 0 PROMIS Pain Interference T-Score 75(Severe) PROMIS Pain Interference Percentile 1 Percentiles provide an indication of how a patient's score ranks in relation to the [place] general population. > 31st percentile is within normal limits or better *< 31st percentile is at least SD worse than population, which may be clinically relevant < 16th percentile is at least 1 SD worse than population and warrants attention * Carolann Mccarthy MA - 07/19/2024 11:37 AM EST 07/18/2024 PROMIS Global Health Physical Health Summary Physical health: Poor Everyday physical activity, ability: Not at all Fatigue: Very severe Pain level: 8 General health: Poor Social activities/roles, ability: Poor Physical Health T-Score 19.9 (Poor) Physical Health Percentile 0 PROMIS Global Health Mental Health Summary Quality of life: Poor Mental health (mood,thinking): Poor Social satisfaction: Poor Emotional problems (anxious,depressed): Always Mental Health T-Score 21.2 (Poor) Mental Health Percentile 0 PHQ-9 Score: 16(Moderately Severe Depression) PHQ-9 Self-Harm: Not at all MOE-7 Score: 16(Severe Anxiety) NEURO-QOL Cognitive Function T-Score 44(Mild Dysfunction) PROMIS Physical Function T-Score 22(Severe Dysfunction) PROMIS Physical Function Percentile 0 PROMIS Pain Interference T-Score 75(Severe) PROMIS Pain Interference Percentile 1 Percentiles provide an indication of how a patient's score ranks in relation to the [place] general population. > 31st percentile is within normal limits or better *< 31st percentile is at least SD worse than population, which may be clinically relevant < 16th percentile is at least 1 SD worse than population and warrants attention documented in this encounterOhiohealth [facility]01-17-2025 NoteHNO ID: [id number] Author: CAROLANN MCCARTHY MA Service: ? Author Type: Conversion Developer Type: Progress Notes Filed: 07/22/2024 09:14 Note Text: 07/18/2024 PROMIS Global Health Physical Health Summary Physical health: Poor Everyday physical activity, ability: Not at all Fatigue: Very severe Pain level: 8 General health: Poor Social activities/roles, ability: Poor Physical Health T-Score 19.9 (Poor) Physical Health Percentile 0 PROMIS Global Health Mental Health Summary Quality of life: Poor Mental health (mood,thinking): Poor Social satisfaction: Poor Emotional problems (anxious,depressed): Always Mental Health T-Score 21.2 (Poor) Mental Health Percentile 0 PHQ-9 Score: 16(Moderately Severe Depression) PHQ-9 Self-Harm: Not at all MOE-7 Score: 16(Severe Anxiety) NEURO-QOL Cognitive Function T-Score 44(Mild Dysfunction) PROMIS Physical Function T-Score 22(Severe Dysfunction) PROMIS Physical Function Percentile 0 PROMIS Pain Interference T-Score 75(Severe) PROMIS Pain Interference Percentile 1 Percentiles provide an indication of how a patient's score ranks in relation to the [place] general population. > 31st percentile is within normal limits or better *< 31st percentile is at least ? SD worse than population, which may be clinically relevant < 16th percentile is at least 1 SD worse than population and warrants attentionSt. [facility]01-17-2025 NoteHNO ID: [id number] Author: CAROLANN MCCARTHY MA Service: ? Author Type: Conversion Developer Type: Progress Notes Filed: 07/22/2024 09:14 Note Text: 07/18/2024 PROMIS Global Health Physical Health Summary Physical health: Poor Everyday physical activity, ability: Not at all Fatigue: Very severe Pain level: 8 General health: Poor Social activities/roles, ability: Poor Physical Health T-Score 19.9 (Poor) Physical Health Percentile 0 PROMIS Global Health Mental Health Summary Quality of life: Poor Mental health (mood,thinking): Poor Social satisfaction: Poor Emotional problems (anxious,depressed): Always Mental Health T-Score 21.2 (Poor) Mental Health Percentile 0 PHQ-9 Score: 16(Moderately Severe Depression) PHQ-9 Self-Harm: Not at all MOE-7 Score: 16(Severe Anxiety) NEURO-QOL Cognitive Function T-Score 44(Mild Dysfunction) PROMIS Physical Function T-Score 22(Severe Dysfunction) PROMIS Physical Function Percentile 0 PROMIS Pain Interference T-Score 75(Severe) PROMIS Pain Interference Percentile 1 Percentiles provide an indication of how a patient's score ranks in relation to the [place] general population. > 31st percentile is within normal limits or better *< 31st percentile is at least ? SD worse than population, which may be clinically relevant < 16th percentile is at least 1 SD worse than population and warrants attentionSt. [facility]01-16-2025 History of Present illness Narrative* Mook Henderson - 07/18/2024 11:00 AM EST Physical Therapy [facility] Inpatient/Observation/Outpatient Rehabilitation Date: 07/18/2024 Patient Name: Kayleen Kovacs [] Inpatient Acute/Observation [x] Outpatient : 1995 Plan of Care/Recert ends [] Pt no showed for scheduled appointment [] As a reminder, pt was contacted/attempted contact via phone of upcoming appointments. [] Pt refused/declined therapy at this time due to: [x] Pt cancelled due to: [] No Reason Given [] Sick/ill [x] Other: felt a pop in her back and is going to get it checked out tomorrow. [] Evaluation held by RN/Provider due to: [] High Heart Rate [] High Blood Pressure [] Orthopedic Consult [] Hgb < 7 [] Other: [] Pt ordered brace per physician request: [] Proper fit will be completed and education for wearing/skin checks [] Pt does not require skilled services due to: Therapist/Highway Painter will attempt to see this patient, at our earliest opportunity. Mook Henderson Date: 07/18/[address] [facility] Telephone encounter Note* Telephone Encounter - Ilana Massey RN - 07/15/2024 11:57 AM EST Lab form faxed to [employer] [phone]. Ilana Massey RN [facility]01-13-2025 Miscellaneous Notes* Telephone Encounter - Ilana Varner RN - 07/15/2024 11:57 AM EST Lab form faxed to [employer] [phone]. Ilana Massey RN * Telephone Encounter - Marilin Hudson - 07/15/2024 10:57 AM EST General call : Full name of person calling: Kayleen Kovacs Relationship to patient: self Phone # : [employer] Fax # : [phone] Reason for call: patient called to have labs faxed to Patient of Dr. Jerald Gardner faxed documented in this encounterOhiohealth [facility]01-13-2025 Telephone encounter Note * Telephone Encounter - Marilin Hudson - 07/15/2024 10:57 AM EST General call : Full name of person calling: Kayleen Kovacs Relationship to patient: self Phone # : [employer] Fax # : [phone] Reason for call: patient called to have labs faxed to Patient of Dr. Paredes Labs faxed [facility]01-03-2025 Telephone encounter Note* Telephone Encounter - Janice Sigala RN - 07/05/2024 10:57 AM EST Called pt - LVM to call office. Attempt to get more pain information. Janice Sigala RN [facility]: 01/09/24 Assessment Traumatic injury to left knee with [...] placement and rib fragment removal by Dr Park (05/17/23). Sleep Apnea Anxiety Borderline personality disorder [...] trauma and assess for pain management needs [facility]01-03-2025 Miscellaneous Notes* Telephone Encounter - Janice Sigala RN - 07/05/2024 10:57 AM EST Called pt - LVM to call office. Attempt to get more pain information. Janice Sigala RN [facility]: 01/09/24 Assessment Traumatic injury to left knee with [...] placement and rib fragment removal by Dr Park (05/17/23). Sleep Apnea Anxiety Borderline personality disorder [...] trauma and assess for pain management needs * Telephone Encounter - Roxana Do - 07/04/2024 4:14 PM EST Ms. Kovacs called stating she has a SCI and has had increased back pain since yesterday morning. She stated it feels like she has a lot of pressure when sitting and has increased pain. She was wanting to speak to Dr. Benedict regarding this. She did not want to go to the ER. I offered to make her an appointment with Dr. Benedict, and the first available slot is 07/19/24. Please advise Roxana Velasquez documented in this encounterOhiohealth [facility]01-02-2025 Telephone encounter Note * Telephone Encounter - Roxana Do - 07/04/2024 4:14 PM EST Ms. Kovacs called stating she has a SCI and has had increased back pain since yesterday morning. She stated it feels like she has a lot of pressure when sitting and has increased pain. She was wanting to speak to Dr. Benedict regarding this. She did not want to go to the ER. I offered to make her an appointment with Dr. Benedict, and the first available slot is 07/19/24. Please advise Roxana Velasquez [facility]12-19-2024 History of Present illness Narrative* Isidro Fowler PTA - 06/20/2024 10:[address] [facility] Outpatient Physical Therapy Daily Note Patient: Kayleen Kovacs : 1995 CSN #: [id number] Referring Physician: Earline Chen APRN - NP Date: 06/20/2024 Treatment Diagnosis: L patella fx, paraplegia Onset Date: 02/28/24 PT Insurance Information: [facility] Total # of Visits Approved: 6 Per Physician Order Total # of Visits to Date: 3 No Show: 0 Canceled Appointment: 1 07/05/24 Plan of Care/Recert Due Pre-Treatment Pain: 09/09 Subjective: Pt reports the backside of her knee has been sore and shes had cramping alot. Pt reports knee and back pain. Exercises: Exercise 1: HEP: seated heel slide knee flexion stretch 2x30 seconds, LAQ x8, x6 Exercise 2: seated HS curls YTB x15, LAQ 2# x15 Exercise 3: supine: SAQ 2 x15, SLR 3x 5 reps, heel slides x15, hip adduction with ball x15, hip abdmanual resistance x15, quad set x15 Exercise 4: Supine PF/DF with therapist assist on L LE x15 Exercise 5: supine: pnf resisted 10x ea Exercise 6: Supine: bridge 10x Manual: STM to L backside of knee Assessment Assessment: Pain noted with bridges today in LB causing limitations. Point tenderness noted in posterior knee. Will continue. Activity Tolerance Activity Tolerance: Patient tolerated treatment well, Patient limited by fatigue Patient Education Patient Education: Educated pt on expectations of therapy. Pt verbalized/demonstrated good understanding: [x] Yes [] No, pt required further clarification. Post Treatment Pain: 08/12 Plan Plan Frequency: 1 Plan weeks: 6 Goals (Total # of Visits to Date: 3) Short Term Goals Time Frame for Short Term Goals: 2 weeks Short Term Goal 1: Patient will be initiated with a HEP - MET Short Term Goal 2: Patient will tolerate 30 minutes of therex/act to improve endurance for ADLs. G[facility]outh Cutter Goals Time Frame for Gutter Mouth Cutter Goals : 4 weeks [facility] Goal 1: Patient will be independent and compliant with a HEP [facility] Goal 2: Patient will improve L knee ROM to match R for transfers and general mobility. [facility] Goal 3: Patient will improve bilateral LE strength to >/= 4/5 for standing and ambulation. [facility] Goal 4: Patient will be independent with an aquatic exercise program. Minutes Tracking: Time In: 1017 Time Out: 1111 Minutes: 54 Timed Code Treatment Minutes: 50 Minutes Isidro Fowler, [facility] Date: 06/20/[address] [facility]12-12-2024 History of Present illness Narrative* Dilcia Lee, [facility] - 06/13/2024 10:[address] [facility] Inpatient/Observation/Outpatient Rehabilitation Date: 06/13/2024 Patient Name: Kayleen Kovacs [] Inpatient Acute/Observation [x] Outpatient : 1995 [x] Pt cancelled due to: [] No Reason Given [] Sick/ill [x] Other: Weather, difficult to manage w/c in the ice. Therapist/Highway Painter will attempt to see this patient, at our earliest opportunity. Dilcia Lee, [facility] [id number] Date: 06/13/[address] [facility]12-05-2024 History of Present illness Narrative* Samantha Fraga, [facility] - 06/06/2024 10:15 AM EST Physical Therapy [facility] Outpatient Physical Therapy Daily Note Patient: Kayleen Koavcs : 1995 CSN #: [id number] Referring Physician: Earline Chen APRN - NP Date: 06/06/2024 Treatment Diagnosis: L patella fx, paraplegia Onset Date: 02/28/24 PT Insurance Information: [facility] Total # of Visits Approved: 6 Per Physician Order Total # of Visits to Date: 2 No Show: 0 Canceled Appointment: 0 07/05/24 Plan of Care/Recert Due Pre-Treatment Pain: mild/10 Subjective: Pt states she has pain in knee and lumbar region at start of session. Pt notes she has been completing HEP. Pt states she would like to be able to ambulate again. Exercises: Exercise 2: seated HS curls YTB x15, LAQ 2# x15 Exercise 3: supine: SAQ 2 x15, SLR 3x 5 reps, heel slides x15, hip adduction with ball x15, hip abdmanual resistance x15, quad set x15 Exercise 4: Supine PF/DF with therapist assist on L LE x15 Assessment Assessment: AROM supine knee flexion R LE 139 deg, L LE 124 deg. Pt required cues with HS curls to limit ER/IR of hip on L LE. Pt able to complete LAQ with 2# weight but unable to achieve TKE. Vcs provided with SLR to limit quad lag but able to complete independently. Pt performed all transfers independently this date. Activity Tolerance Activity Tolerance: Patient tolerated treatment well, Patient limited by fatigue Patient Education Patient Education: Educated pt on expectations of therapy. Pt verbalized/demonstrated good understanding: [x] Yes [] No, pt required further clarification. Post Treatment Pain: mild/10 Plan Plan Frequency: 1 Plan weeks: 6 Goals (Total # of Visits to Date: 2) Short Term Goals Time Frame for Short Term Goals: 2 weeks Short Term Goal 1: Patient will be initiated with a HEP - MET Short Term Goal 2: Patient will tolerate 30 minutes of therex/act to improve endurance for ADLs. [facility] Goals Time Frame for [facility] Goals : 4 weeks [facility] Goal 1: Patient will be independent and compliant with a HEP [facility] Goal 2: Patient will improve L knee ROM to match R for transfers and general mobility. [facility] Goal 3: Patient will improve bilateral LE strength to >/= 4/5 for standing and ambulation. [facility] Goal 4: Patient will be independent with an aquatic exercise program. Minutes Tracking: Time In: 1024 Time Out: 1100 Minutes: 36 Timed Code Treatment Minutes: 27 Minutes Samantha Fraga PTA Date: 06/06/[address] [facility]12-04-2024 Telephone encounter Note* Telephone Encounter - Ilana Massey RN - 06/05/2024 11:43 AM EST Lab form faxed to [place], [place] Ilana Massey RN [facility]12-04-2024 Miscellaneous Notes* Telephone Encounter - Ilana Varner RN - 06/05/2024 11:43 AM EST Lab form faxed to [place], [place] Ilana aMssey RN * Telephone Encounter - Chanda Ley - 06/04/2024 1:52 PM EST ORDERS Person requesting order: Kayleen Kovacs Phone number: [phone] Order being requested: lab orders to local lab facility Facility: [place], [place] Patient of Dr. Paredes documented in this encounterOhiohealth [facility]12-03-2024 Telephone encounter Note * Telephone Encounter - Chanda Ley - 06/04/2024 1:52 PM EST ORDERS Person requesting order: Kayleen Kovacs Phone number: [phone] Order being requested: lab orders to local lab facility Facility: [place], [place] Patient of Dr. Paredes [facility]11-22-2024 Telephone encounter Note* Telephone Encounter - Macrina Barba - 05/24/2024 2:26 PM EST PT is calling back. She fell after having a seizure and has a fracture spine. She cannot complete PT. Call to advise. Call [phone]. [facility]11-22-2024 Miscellaneous Notes* Telephone Encounter - Macrina Barba - 05/24/2024 2:26 PM EST PT is calling back. She fell after having a seizure and has a fracture spine. She cannot complete PT. Call to advise. Call [phone]. * Telephone Encounter - Penny Rodriguez RN - 05/24/2024 8:40 AM EST Call to patient to recommend continuing PT. No answer. Left voicemail to return call. Patient needsto complete 6 visits across at least 6 weeks in the past 6 months. * Telephone Encounter - Penny Rodriguez RN - 05/23/2024 4:15 PM EST ======= ORM IFX DOS 05/22/2024 ======= Payor: [employer] / [employer] Hospital: [facility] physician representative, web used: [facility] web Portal Case reference number: [id number] Procedure(s) denied: 17806 Procedure(s) approved: NA Diagnosis code(s): Z91.81 ,Z87.828 , M54.50 May I know when case was denied?: 05/17/2024 ORM Team please see request for additional information Rep advised reconsideration is available: Yes What is the reconsideration timeframe?: 5 Business days How can it be done?: [phone] - Fax If no additional information available, please send to [facility] Peer to Peer Is the peer to peer available? Yes Is peer to peer for consultation only? No May I have the P2P ph# along with prompts? [phone] opt 2 (#[phone]) / opt 1 What is the time frame for the peer to peer? 5 Business Would the P2P timeframe cover all services or is it specific for a type of service? Yes Does the P2P have to be scheduled or is it done right away? Right away Is it required for the provider to schedule the P2P or can this be done by his medical physics professor? N/A Who can complete the P2P (Doctor, PA, INSULATION HOSEMAN)? Doctor, PA, INSULATION HOSEMAN Would the peer to peer be available if services have been rendered? Yes Is the appeal available? Yes Can I have the appeal ph# along with prompts? N/A Can I have the appeal fax#? [phone] Can I have the appeal mailing address? [facility] [address] [place] [address] Attention to? [facility] Appeals Department Is it necessary to include any form? Yes: Provider form: [email or web address] Member form: [email or web address] What is the appeal time frame? 180 calendar days Denial reason : Your doctor s request for a(n) Lumbar Spine MRI (Magnetic Resonance Imaging - pictures of inside your lower spine) cannot be approved. We made this decision based on [employer] Clinical Guideline 044 for Lumbar Spine MRI. Information Relied Upon: Based on what was given, you have back pain, your doctor s request cannot be approved. A person might need a(n) Lumbar Spine MRI if these notes have/has been given: doctor's notes that say you did six weeks of back exercises (physical therapy, chiropractic treatments, or medically directed home exercise program) in the last six months. We also need to know the number of visits you went to. If you did this, the notes do not show the dates that you did the exercises. We also need to know that you did not get better. The information we got did not include these notes. * Telephone Encounter - Macrina Barba - 05/23/2024 3:50 PM EST PT MRI was denied by insurance due to the lack of medical necessary information. PT is upset and isrequesting a return call to discuss next steps in care. Call [phone]. documented in this encounterOhiohealth [facility]11-22-2024 Telephone encounter Note * Telephone Encounter - Penny Rodriguez RN - 05/24/2024 8:40 AM EST Call to patient to recommend continuing PT. No answer. Left voicemail to return call. Patient needsto complete 6 visits across at least 6 weeks in the past 6 months. [facility]11-21-2024 Telephone encounter Note* Telephone Encounter - Penny Rodriguez RN - 05/23/2024 4:15 PM EST ======= ORM IFX DOS 05/22/2024 ======= Payor: [employer] / [employer] Hospital: [facility] physician representative, web used: [facility] web Portal Case reference number: [id number] Procedure(s) denied: 40995 Procedure(s) approved: NA Diagnosis code(s): Z91.81 ,Z87.828 , M54.50 May I know when case was denied?: 05/17/2024 ORM Team please see request for additional information Rep advised reconsideration is available: Yes What is the reconsideration timeframe?: 5 How can it be done?: [phone] - Fax If no additional information available, please send to [facility] Peer to Peer Is the peer to peer available? Yes Is peer to peer for consultation only? No May I have the P2P ph# along with prompts? [phone] opt 2 (#[phone]) / opt 1 What is the time frame for the peer to peer? 5 Would the P2P timeframe cover all services or is it specific for a type of service? Yes Does the P2P have to be scheduled or is it done right away? Right away Is it required for the provider to schedule the P2P or can this be done by his medical physics professor? N/A Who can complete the P2P (Doctor, PA, INSULATION HOSEMAN)? Doctor, PA, INSULATION HOSEMAN Would the peer to peer be available if services have been rendered? Yes Is the appeal available? Yes Can I have the appeal ph# along with prompts? N/A Can I have the appeal fax#? [phone] Can I have the appeal mailing address? [facility] [address] [place] [address] Attention to? [employer] Appeals Department Is it necessary to include any form? Yes: Provider form: [email or web address] Member form: [email or web address] What is the appeal time frame? 180 calendar days Denial reason : Your doctor s request for a(n) Lumbar Spine MRI (Magnetic Resonance Imaging - pictures of inside your lower spine) cannot be approved. We made this decision based on [employer] Clinical Guideline 044 for Lumbar Spine MRI. Information Relied Upon: Based on what was given, you have back pain, your doctor s request cannot be approved. A person might need a(n) Lumbar Spine MRI if these notes have/has been given: doctor's notes that say you did six weeks of back exercises (physical therapy, chiropractic treatments, or medically directed home exercise program) in the last six months. We also need to know the number of visits you went to. If you did this, the notes do not show the dates that you did the exercises. We also need to know that you did not get better. The information we got did not include these notes. [facility]11-21-2024 Telephone encounter Note* Telephone Encounter - Macrina Barba - 05/23/2024 3:50 PM EST PT MRI was denied by insurance due to the lack of medical necessary information. PT is upset and isrequesting a return call to discuss next steps in care. Call [phone]. [facility]11-21-2024 History of Present illness Narrative* Eliecer Montalvo, PT - 05/23/2024 10:[address] [facility] Outpatient Physical Therapy Evaluation Date: 05/23/2024 Patient: Kayleen Kovacs : 1995 CSN #: [id number] Referring Physician: Gustavo, Earline, FOUNDATION DIGGER - INSULATION HOSEMAN Medical Diagnosis: Paraplegia, G82.20, displaced comminuted fx of patella, S82.043A Treatment Diagnosis: L patella fx, paraplegia Onset Date: 02/28/24 PT Insurance Information: [facility] Total # of Visits Approved: 6 Total # of Visits to Date: 1 No Show: 0 Canceled Appointment: 0 [x] This loan underwriter acknowledges review of patient history form Subjective Subjective: The patient reports having a seizure and falling onto her L knee. She reports a fx of her L patella. She reports pain ranges from 1-2/10 at best to 7/10 at worst. She reports pain with transfers and moving her knee. She reports she was recently removed from the TROM brace. Additional Pertinent Hx: Paraplegia, seizures, spinal fusion of T11-12, and L1- L4, rib removal May of 2023 Observations: General Observations Description: moderate edema of L knee Objective AROM AROM LLE (degrees) L Knee Flexion (0-145): 95 L Knee Extension (0): 0 R knee flexion: 120 R knee extension: 0 Strength Strength LLE L Hip Flexion: 3+/5 L Hip Extension: NT L Knee Flexion: 3+/5 L Knee Extension: 2+/5 L Ankle Dorsiflexion: 0/5 R hip flexion: 3+/5 R hip extension: NT R knee flexion: 4/5 R knee extension: 4/5 R ankle dorsiflexion: 4/5 Exercises: Exercise 1: HEP: seated heel slide knee flexion stretch 2x30 seconds, LAQ x8, x6 Functional Outcome Measures Patient disability report: 100% disabled Assessment Body Structures, Functions, Activity Limitations Requiring Skilled Therapeutic Intervention: Decreased functional mobility , Decreased ADL status, Decreased strength, Decreased ROM, Decreased endurance, Decreased balance, Decreased vision/visual deficit, Decreased high-level IADLs, Increased pain Assessment: The patient is a 28 y.o. female who is a paraplegic and has been WC bound since a fall in 2021. She reports a seizure and fall at the end of January where she fractured her L patella. She reports she was recently released from her brace and precautions. On evaluation she demonstates decreased L knee ROM, decreased LE strength, impaired balance, and decreased activity endurance. She would like to return to alternating pool and land exercise to improve functional mobility for an eventual return to ambulation. She reports she is able to attend PT 1x/week due to her busy schedule. Therapy Prognosis: Fair Decision Making: Medium Complexity Patient Education Patient Education: PT POC, HEP Pt verbalized/demonstrated good understanding: [X] Yes [] No, pt required further clarification. Goals Short Term Goals Time Frame for Short Term Goals: 2 weeks Short Term Goal 1: Patient will be initiated with a HEP Short Term Goal 2: Patient will tolerate 30 minutes of therex/act to improve endurance for ADLs. Chcf Goals Time Frame for Gutter Mouth Cutter Goals : 4 weeks Gutter Mouth Cutter Goal 1: Patient will be independent and compliant with a HEP Chcf Goal 2: Patient will improve L knee ROM to match R for transfers and general mobility. Gutter Mouth Cutter Goal 3: Patient will improve bilateral LE strength to >/= 4/5 for standing and ambulation. Gutter Mouth Cutter Goal 4: Patient will be independent with an aquatic exercise program. Patient Goals : Learn how to walk again Minutes Tracking: Time In: 1030 Time Out: 1112 Minutes: 42 Timed Code Treatment Minutes: 40 Minutes Eliecer Montalvo PT, DPT, OCS, Cert. DN 05/23/[address] History of Present illness Narrative* MARISEL Moulton - 05/10/2024 10:00 AM EST Images from the original note were not included. Subjective Patient ID: Brian Kovacs is a 28 y.o. female. Chief Complaint: Fracture of the Left Knee Last Surgery: No surgery found Last Surgery Date: No surgery found HPI Brian Comes in with her spouse and is here for repeat x-ray and follow up on her left transverse fracture of the patella and left plateau fracture which was not depressed. She is waiting to get into organized therapy in [place] for aquatics and has not followed up in this office since initial eval February 19. She comes in with her ROM and complains of multiple joints hurting from inability to perform her therapy. Objective Ortho Exam Patient is able to flex the knee to 90 degrees with significant weakness of quad extension due to her paralysis. She has no significant joint swelling and no evidence of erythema or infection about the knee. Image Results: XR knee 1 or 2 views left Imaging Result: Left knee lateral and AP taken in the office today nonweightbearing. Images do demonstrate proximal 1/3 transverse fracture of patella nondisplaced with some early callus. 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 Use L 18 21 so that you can bend your knee insert working on range of motion, continue aquatic therapy as ordered previously. Avoid use of ROM brace as this is promoting stiffness of the joint and increasing her difficulty with range of motion. Continue Tylenol and or NSAIDs if tolerated from a GI and renal standpoint. Follow-up with this office as needed for recurrent or new injury. documented in this [facility]11-08-2024 Instructions* Patient Instructions* MARISEL Moulton - 05/10/2024 10:00 AM EST Use L 18 21 so that you can bend your knee insert working on range of motion, continue aquatic therapy as ordered previously. Avoid use of ROM brace as this is promoting stiffness of the joint and increasing her difficulty with range of motion. Continue Tylenol and or NSAIDs if tolerated from a GI and renal standpoint. Follow-up with this office as needed for recurrent or new injury. 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 She is on Lamictal and Zonegran was added 2 weeks go , if myoclonic jerks persist she will contact the office to increase ZSN to 30 mg daily Karen Amaro M.D [facility] Instructions* Patient Instructions* Tangela Paula APRN.CNP - 04/17/2024 10:44 AM EDT Please reach out to your neurologist to rule out any new seizure activity. Will reach out to get you scheduled for your DEXA and MRI imaging Continue to follow with your pain management physician Continue to work with physical therapy [facility] this [facility] Instructions* Patient Instructions* Amanda Son PA-C - 04/15/2024 10:41 AM EDT For new onset jerks: - Repeat long EEG to assess brain waves and etiology of jerks - Labwork - Lamotrigine, Zonisamide, CBC, CMP - Watch response to Zonisamide, update the office in the week (possibly increase to 300 mg) - I will review your MRI results/images with a Neuroradiologist for further recommendations Amanda Son PA-C Dept : [phone] Office hours: Monday through Monday 8am to 5pm. Call the office to report: Call OR send a Quattro Wirelesshart message: Concerns about breakthrough seizures Change in seizure frequency New medication side effect or concern Missed medication dose Worsening or sever depression Urgent medication refill requests - needing new supply within 72 hours Non- urgent or routine medication refill requests Requesting a letter Requesting paperwork completion Report a breakthrough seizure Non-urgent clinical updates Non-urgent clinical questions (e.g. concern regarding lab or test results) Note: MyChart messages are not monitored after 5 PM on weekdays, weekends or holidays. MyChart messages will be addressed within 3 business days. If you have an urgent medical concern that needs to be addressed before 3 business days, please call the office. Please call 911 or proceed to nearest Emergency Room if you are experiencing any of the following issues: Status epilepticus (continuous seizure or multiple seizures without enough time to recover between them) Severe medication reaction (hives, itching or rash) Sudden onset of mental status changes Suicidal thoughts or plan to harm yourself or others Sudden onset of chest pain or shortness of breath Sudden onset of possible stroke symptoms (loss of balance, eye or face drooping, arm weakness, speech difficulty) General Seizure safety precautions: No bathing or swimming unsupervised, no use of heavy machinery, no heavy lifting (over 50lbs), no use of sharp moving objects (power tools) or open flames, avoid heights or ladders. Driving: If you are having seizure or episodes with loss of awareness, driving will need to be cleared by anEpileptologist. Driving laws vary from state to state, so please refer to your state driving laws for restrictions. [facility] Specialty [facility] You can contact the office to request or discuss a referral to the following teams within our department: Epilepsy Pharmacy Epilepsy Psychiatry Epilepsy Psychology Epilepsy Social Work Epilepsy Neurosurgery Epilepsy research opportunities documented in this [facility] Telephone encounter Note * Telephone Encounter - Lorin Guido APRN.CNP - 04/15/2024 10:14 AM EDT Noted. Rx for zns has been sent Lorin Guido APRN.CNP [facility]10-14-2024 Miscellaneous Notes* Telephone Encounter - Lorin Guido APRN.ISAAC - 04/15/2024 10:14 AM EDT Noted. Rx for zns has been sent Lorin Guido APRN.ISAAC * Telephone Encounter - Ilana Massey RN - 04/15/2024 10:01 AM EDT I spoke with Kayleen, denies sulfa allergy or history of kidney stones. She agreed to begin ZNS 100 mg at bedtime for 1 week then increase to 200 mg Patient is unable to start klp wafers. She is currently taking Suboxone Ilana Massey RN * Telephone Encounter - Lorin Guido APRN.HARNESS INSPECTOR - 04/12/2024 4:56 PM EDT Would begin ZNS 100 mg at bedtime for 1 week then increase to 200 mg. RX sent Please verify no hx kidney stones/sulfa allergy. Will also send klp wafers for rescue and can take one after she picks up Lorin Guido APRN.HARNESS INSPECTOR * Telephone Encounter - Ilana Massey RN - 04/12/2024 4:48 PM EDT Last Visit: 04/08 ADDENDUM 04/11/2024 ; Discussed with Dr. Paredes, can trial either ZNS, TPM or LCM for possible myoclonic jerking. Called patient to review options but there was no answer, left VMM to return call to office. Carol Neal APRN.ISAAC April 11, 2024 Patient agreed to trial new medication Ilana Massey RN * Telephone Encounter - Maikel OLIVO Madeline - 04/12/2024 4:43 PM EDT Seizure activity: Name of Caller : Kayleen Kovacs Relationship to patient: Self Contact phone number: [phone] Date of seizure: 04/12/24 she has little seizure all day long Duration: seconds Back to Baseline (Yes/No): yes Emergency treatment needed (Yes/No): no Patient of Dr. paredes documented in this [facility] Telephone encounter Note * Telephone Encounter - Ilana Massey RN - 04/15/2024 10:01 AM EDT I spoke with Kayleen, denies sulfa allergy or history of kidney stones. She agreed to begin ZNS 100 mg at bedtime for 1 week then increase to 200 mg Patient is unable to start klp wafers. She is currently taking Suboxone Ilana Massey RN [facility]10-14-2024 History of Present illness Narrative* Amanda Son PA-C - 04/15/2024 10:00 AM EDT [facility] Patient Name: Kayleen Kovacs Date of : 1995 ESTABLISHED EPILEPSY CLINIC NOTE 04/15/2024 10:00 AM Reason for Visit: Follow Up, Epilepsy, and Seizures Clinical Summary: Ms. Kovacs is a 28 year old female seen in [facility]. We had a visit using: Clinical Ink I received consent from the patient to perform the visit using this platform. I have communicated my name and active licensure. The patient's identity and physical location wereverified at the time of this visit. Either the patient or their legal credit representative has been informed of the risks and benefit of - and alternatives to - treatment through a remote evaluation and consents to proceed with the evaluation remotely. There is no one accompanying the patient during today's visit. HISTORY OF PRESENT ILLNESS Seizure History and Evolution Seizures began at [...] 4 days In the past she used Keppra, it did not work Lamictal level never checked No risk factors for epilepsy Interval Seizure History She presents to review MRI results and continued myoclonic jerks. Current seizure medication: Lamotrigine 150 mg BID, Zonisamide 200 mg QHS, Pregabalin 300 mg BID Side effects: none Seizures: There have been no GTC seizures since the last visit. Her last GTC were in 02/2024: 1. Was getting coffee, fell out of her wheelchair, shattered knee cap 2. Couple weeks later fell out of chair and hit head, that's when myoclonic jerks started She now has reported myoclonic jerks frequently. When she is tired they cluster every 30 seconds- whole body jerks. 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 clonazePAM orally disintegrating (KLONOPIN WAFER) 0.5 mg disintegrating tablet Take 1 tablet by mouth two times a day as needed (for prolonged seizure or cluster of seizures) for up to 30 days. lamoTRIgine (LAMICTAL) 150 mg tablet 1 tablet twice a day pregabalin (LYRICA) 300 mg capsule Prior Anti-seizure Therapies: Trial Adequacy: Max Daily Dose Achieved: Side Effects: Effectiveness: Comments: Gabapentin Lamotrigine Pregabalin Zonisamide Comorbidities: Episode Description: SEIZURE TYPE 1: GTC seizure Loss of awareness: Duration: Frequency: Last occurred: yes Patient Entered Data: EPILEPSY SCORE 04/07/2024 9:21 PM 04/07/2024 9:20 PM 04/07/2024 9:18 PM First answer obtained - 07/21/2023 10:39 AM PHQ-9 SCORE - - - - MOE 2 SCORE 6 [Positive Anxiety Screen] - - - MOE 7 SCORE 19 [Severe Anxiety Disorder] - - - QOLIE-10 SCORE (0=worst; 100=best QoL - higher scores represent better function) - - - - LSSS SCORE (0- no seizures 100- most severe possible seizures) - - 85 - C-SSRS SCREEN - - - - On average, how many hours of sleep do you get in a 24-hour period? - - - - PROMIS Sleep Disturbance T-SCORE - - - 72 [severe] Have you been diagnosed with Sleep Apnea? - - - - Seizure risk factors: Brain Tumor Unanswered MICROS[employer] SOLUTIONS ARCHITECT Infections Unanswered Developmental Delay Unanswered Family history of seizures Unanswered Febrile Seizure Unanswered Complications Unanswered Stroke Unanswered Traumatic Brain Injury Unanswered Previous Epilepsy Evaluations MRI brain 04/13/2024: 1. Negative noncontrast seizure protocol MRI of the brain, allowing for motion artifact on the study. No findings to localize seizures. 2. 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 This is technically incompletely characterized in the absence of contrast administration. EEG 02/27/2024: Classifications: Abnormal III (10-20 Scalp Electrodes, Anterior Temporal Electrodes, Awake, Photic Stimulation, Auditory Stimulation, Sleep) Interictal: Poly Spikes & Wave Complex, Generalized, Tru, Generalized, Maximum, bifrontocentral Photoparoxysmal Response, Generalized, Other caregivers: Primary Care Provider: No primary care provider on file. Current Outpatient Medications Medication Sig zonisamide (ZONEGRAN) 100 mg capsule Take 1 capsule by mouth daily at bedtime for 7 days, THEN 2 capsules daily at bedtime. ergocalciferol, vitamin D2, (VITAMIN D2 ORAL) Take 50,000 Units by mouth one time a week. ascorbic acid, vitamin C, (VITAMIN C) 500 mg tablet Take 500 mg by mouth once daily. lamoTRIgine (LAMICTAL) 150 mg tablet 1 tablet [...] day. QUEtiapine (SEROQUEL) 100 mg tablet Take 200 mg by mouth daily at bedtime. busPIRone (BUSPAR) 15 mg tablet Take 30 mg by mouth two times a day. sertraline (ZOLOFT) 25 mg tablet Take 25 mg by mouth once daily. ondansetron (ZOFRAN) 4 mg tablet Take 4 [...] Cymbalta [Duloxetin* Other: See Comments Suicidal ideation No past medical history on file. No past surgical history on file. No family history on file. SOCIAL HISTORY: -Lives in [place], [place] -Patient lives alone? 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 Zonisamide was added recently, but jerks continue at current dose of 200 mg QHS. She is on Lamotrigine and Pregabalin (pain/neuro), which could make jerks worse if they are epileptic. We discussed getting an EEG to assess, and possibly increasing Zonisamide in 1 week if jerks do not improve/resolve. MRI brain showed possible developmental venous anomaly in the right cerebellum, which we will review with neuro-radiology for recommendations. PLAN: - Will review MRI brain results/images with Neuro-radiology for recommendations Testing Ordered Long EEG CBC CMP anticonvulsant level Medical Management Continue current medications. Lamotrigine 150 mg BID, Zonisamide 200 mg QHS, Pregabalin 300 mg BID (pain/neuro) Future options- increase Zonisamide to 300 mg On suboxone for pain, do not prescribe rescue benzodiazepines I discussed the risks, benefits and alternatives of the medical plan with the patient. Questions were answered. The patient agreed with the plan as discussed. FOLLOW-UP: Return in about 3 months (around 07/16/2024). I spent a total of 30 minutes on the date of the service which included: preparing to see the patient [id number] patient care completing clinical documentation counseling and educating the patient/family/caregiver ordering medications, tests, or procedures Amanda Son PA-C 04/15/2024 documented in this encounterOhio[facility]10-14-2024 NoteHNO ID: [id number] Author: AMANDA SON PA-C Service: ? Author Type: Physician Highway Painter Type: Progress Notes Filed: 04/15/2024 11:15 Note Text: [facility] Patient Name: Kayleen Kovacs Date of : 1995 ESTABLISHED EPILEPSY CLINIC NOTE 04/15/2024 10:00 AM Reason for Visit: Follow Up, Epilepsy, and Seizures Clinical Summary: Ms. Kovacs is a 28 year old female seen in [facility]. We had a visit using: Clinical Ink I received consent from the patient to perform the visit using this platform. I have communicated my name and active licensure. The patient's identity and physical location were verified at the time of this visit. Either the patient or their legal credit representative has been informed of the risks and benefit of - and alternatives to - treatment through a remote evaluation and consents to proceed with the evaluation remotely. There is no one accompanying the patient during today's visit. HISTORY OF PRESENT ILLNESS Seizure History and Evolution Seizures began at [...] 4 days In the past she used Micrima, it did not work Lamictal level never checked No risk factors for epilepsy Interval Seizure History She presents to review MRI results and continued myoclonic jerks. Current seizure medication: Lamotrigine 150 mg BID, Zonisamide 200 mg QHS, Pregabalin 300 mg BID Side effects: none Seizures: There have been no GTC seizures since the last visit. Her last GTC were in 02/2024: 1. Was getting coffee, fell out of her wheelchair, shattered knee cap 2. Couple weeks later fell out of chair and hit head, that's when myoclonic jerks started She now has reported myoclonic jerks frequently. When she is tired they cluster every 30 seconds- whole body jerks. 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 clonazePAM orally disintegrating (KLONOPIN WAFER) 0.5 mg disintegrating tablet Take 1 tablet by mouth two times a day as needed (for prolonged seizure or cluster of seizures) for up to 30 days. lamoTRIgine (LAMICTAL) 150 mg tablet 1 tablet twice a day pregabalin (LYRICA) 300 mg capsule Prior Anti-seizure Therapies: Trial Adequacy: Max Daily Dose Achieved: Side Effects: Effectiveness: Comments: Gabapentin Lamotrigine Pregabalin Zonisamide Comorbidities: Episode Description: SEIZURE TYPE 1: GTC seizure Loss of awareness: Duration: Frequency: Last occurred: yes Patient Entered Data: EPILEPSY SCORE 04/07/2024 9:21 PM 04/07/2024 9:20 PM 04/07/2024 9:18 PM First answer obtained - 07/21/2023 10:39 AM PHQ-9 SCORE - - - - MOE 2 SCORE 6 [Positive Anxiety Screen] - - - MOE 7 SCORE 19 [Severe Anxiety Disorder] - - - QOLIE-10 SCORE (0=worst; 100=best QoL - higher scores represent better function) - - - - LSSS SCORE (0- no seizures 100- most severe possible seizures) - - 85 - C-SSRS SCREEN - - - - On average, how many hours of sleep do you get in a 24-hour period? - - - - PROMIS Sleep Disturbance T-SCORE - - - 72 [severe] Have you been diagnosed with Sleep Apnea? - - - - Seizure risk factors: Brain Tumor Unanswered MI[employer] ARCHITECT Infections Unanswered Developmental Delay Unanswered Family history of seizures Unanswered Febrile Seizure Unanswered Complications Unanswered Stroke Unanswered Traumatic Brain Injury Unanswered Previous Epilepsy Evaluations MRI brain 04/13/2024: 1. Negative noncontrast seizure protocol MRI of the brain, allowing for motion artifact on the study. No findings to localize seizures. 2. 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 This is technically incompletely characterized in the absence of contrast administratio (more content not included)...[facility]10-12-2024 History of Present illness Narrative* Steven Evans RT(R) - 04/13/2024 11:40 AM EDT Radiology Service Progress Note PATIENT NAME: Kayleen Kovacs DATE OF SERVICE: April 13, 2024 TIME: 12:15 PM PATIENT IDENTITY VERIFICATION COMPLETED USING TWO (2) IDENTIFIERS: Name and Date of confirmedby patient verbally and Name and Date of confirmed by identification band. FALL SCREENING: Has the patient had 2 falls in the last year or 1 fall with injury or currently using an Ambulatory Assistive Device (Walker, Cane, Wheelchair, Crutches, etc.)? Yes, Patient High Riskfor Falls What interventions were put in place to prevent falls during this visit? Instructed Patient to Callfor Help if Needed PATIENT GENDER DATA: Female. status: : No status: NO. PATIENT RELEVANT IMPLANT DATA REVIEWED: Yes PATIENT PRESENTS WITH AN IMPLANTABLE OR ATTACHED TABLET TECHNICIAN: No RADIOLOGY DEPARTMENT: MR; Exam(s) Completed: Head: Seizure PERIPHERAL IV DATA: Not applicable SIGNED BY: RT Julius(Roland) April 13, 2024 12:15 PM [facility] NoteHNO ID: [id number] Author: STEVEN EVANS RT(R) Service: Radiology Author Type: Agronomy Advisor Type: Progress Notes Filed: 04/13/2024 12:16 Note Text: Radiology Service Progress Note PATIENT NAME: Kayleen Kovacs DATE OF SERVICE: April 13, 2024 TIME: 12:15 PM PATIENT IDENTITY VERIFICATION COMPLETED USING TWO [...] place to prevent falls during this visit? Instructed Patient to Call for Help if Needed PATIENT GENDER DATA: Female. status: : No status: NO. PATIENT RELEVANT IMPLANT DATA REVIEWED: Yes PATIENT PRESENTS WITH AN IMPLANTABLE OR ATTACHED TABLET TECHNICIAN: No RADIOLOGY DEPARTMENT: MR; Exam(s) Completed: Head: Seizure PERIPHERAL IV DATA: Not applicable SIGNED BY: ADELSO Madrid) April 13, 2024 12:15 [place]10-11-2024 Telephone encounter Note* Telephone Encounter - Lorin Guido APRN.CNP - 04/12/2024 4:56 PM EDT Would begin ZNS 100 mg at bedtime for 1 week then increase to 200 mg. RX sent Please verify no hx kidney stones/sulfa allergy. Will also send klp wafers for rescue and can take one after she picks up Lorin Guido APRN.ISAAC [facility]10-11-2024 Telephone encounter Note* Telephone Encounter - Ilana Massey, ROJAS - 04/12/2024 4:48 PM EDT Last Visit: 04/08 ADDENDUM 04/11/2024 ; Discussed with Dr. Paredes, can trial either ZNS, TPM or LCM for possible myoclonic jerking. Called patient to review options but there was no answer, left VMM to return call to office. Carol Neal APRN.ISAAC April 11, 2024 Patient agreed to trial new medication Ilana Massey RN [facility]10-11-2024 Telephone encounter Note* Telephone Encounter - Madeline Wallace - 04/12/2024 4:43 PM EDT Seizure activity: Name of Caller : Kayleen Kovacs Relationship to patient: Self Contact phone number: [phone] Date of seizure: 04/12/24 she has little seizure all day long Duration: seconds Back to Baseline (Yes/No): yes Emergency treatment needed (Yes/No): no Patient of Dr. paredes [facility]10-07-[facility]24 History of Present illness Narrative* Carol Neal APRN.CNP - 04/08/2024 1:30 PM EDT [facility] Patient Name: Kayleen oKvacs Date of : 1995 Referring Provider: SELF ESTABLISHED EPILEPSY CLINIC NOTE 04/08/2024 1:30 PM Reason for Visit: Seizures Clinical Summary: Ms. Kovacs is a 28 year old female seen in [facility]. We had a visit using: [email or web address] I received consent from the patient to perform the visit using this platform. I have communicated my name and active licensure. The patient's identity and physical location wereverified at the time of this visit. Either the patient or their legal credit representative has been informed of the risks and benefit of - and alternatives to - treatment through a remote evaluation and consents to proceed with the evaluation remotely. There is no one accompanying the patient during today's visit. Classification Summary HISTORY OF PRESENT ILLNESS Handedness: Age of onset: Seizure History and Evolution Seizures began at [...] 4 days In the past she used Keppra, it did not work Lamictal level never checked No risk factors for epilepsy Interval Seizure History Patient presents for follow up regarding seizures. She is a patient of Dr. Karen Amaro, seen by her for the initial visit on 02/28/2024. At that visit, Lamotrigine was increased from 125 mg BID>> 150 mg BID due to recent seizure. Today, she denies any convulsive seizures since last visit, though notes that since increasing Lamotrigine, she has been experiencing body jumps or jolts daily. Can happen any time of day, no ANITA. She is taking LTG 150 mg BID, and also takes PGB 300 mg BID for pain related to spine fracture. States she sleeps okay. Mood is okay, a lot of stress due to health but follows closely with a therapist which helps. is a big support for her. Not planning . Does not drive. Total # of Current Anti-seizure Medications: Side Effects to Current Anti-seizure Medications: Seizure Frequency at First Visit: Longest Seizure-free Interval: Number of seizure types: 1 Hx of generalized tonic-clonic seizures: Yes Seizure-related driving accidents: No Driving: No Lives Alone: No CURRENT OUTPATIENT ANTISEIZURE MEDICATIONS (as of the start of the encounter) lamoTRIgine (LAMICTAL) 150 mg tablet 1 tablet twice a day pregabalin (LYRICA) 300 mg capsule Prior Anti-seizure Therapies: Trial Adequacy: Max Daily Dose Achieved: Side Effects: Effectiveness: Comments: Comorbidities: Episode Description: SEIZURE TYPE 1: GTC seizure Loss of awareness: Duration: Frequency: Last occurred: yes Patient Entered Data: EPILEPSY SCORE 04/07/2024 9:21 PM 04/07/2024 9:20 PM 04/07/2024 9:18 PM First answer obtained - 07/21/2023 10:39 AM PHQ-9 SCORE - - - - MOE 2 SCORE 6 [Positive Anxiety Screen] - - - MOE 7 SCORE 19 [Severe Anxiety Disorder] - - - QOLIE-10 SCORE (0=worst; 100=best QoL - higher scores represent better function) - - - - LSSS SCORE (0- no seizures 100- most severe possible seizures) - - 85 - C-SSRS SCREEN - - - - On average, how many hours of sleep do you get in a 24-hour period? - - - - PROMIS Sleep Disturbance T-SCORE - - - 72 [severe] Have you been diagnosed with Sleep Apnea? - - - - Seizure risk factors: Brain Tumor Unanswered [employer] ARCHITECT Infections Unanswered Developmental Delay Unanswered Family history of seizures Unanswered Febrile Seizure Unanswered Complications Unanswered Stroke Unanswered Traumatic Brain Injury Unanswered Previous Epilepsy Evaluations Other caregivers: Primary Care Provider: No primary care provider on file. Current Outpatient Medications Medication Sig ergocalciferol, vitamin D2, (VITAMIN D2 ORAL) Take 50,000 Units by mouth one time a week. ascorbic acid, vitamin C, (VITAMIN C) 500 mg tablet Take 500 mg by mouth once daily. lamoTRIgine (LAMICTAL) 150 mg tablet 1 tablet [...] day. QUEtiapine (SEROQUEL) 100 mg tablet Take 200 mg by mouth daily at bedtime. busPIRone (BUSPAR) 15 mg tablet Take 30 mg by mouth two times a day. sertraline (ZOLOFT) 25 mg tablet Take 25 mg by mouth once daily. ondansetron (ZOFRAN) 4 mg tablet Take 4 [...] Cymbalta [Duloxetin* Other: See Comments Suicidal ideation No past medical history on file. No past surgical history on file. No family history on file. SOCIAL HISTORY: -Lives in [place], [place] -Patient lives alone? No -Vocation: -Education: -Cigarette, alcohol, substance use: -Functional status: independent in activities of daily living -Patient driving? 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 since age 21 year old, possible absence seizures as well GTC seizures once a year, absence daily EEG today showed SWC generalized Seizure in Dic 2021 had a fall, fracture T2 , now paralyzed in wheelchair Last GTC seizure 4 days ago Discussed the need to adjust ASM, we will increase lamictal Interval Impression: Patient denies convulsive seizures since last visit, but since increasing Lamotrigine, has been experiencing body jolts or jumps daily raising concern for possible myoclonic jerking PLAN: - LTG level placed per another provider, reminded to complete as trough draw - continue LTG 150 mg BID - will discuss alternative ASM with Dr. Paredes, as its possible LTG may worsen myoclonic jerking - no driving - follow up in 4 months ADDENDUM 04/11/2024 ; Discussed with Dr. Paredes, can trial either ZNS, TPM or LCM for possible myoclonic jerking. Called patient to review options but there was no answer, left VMM to return call to office. Carol Neal APRN.CNP April 11, 2024 Education The following issues were discussed with the patient on this visit and written instructions provided as below- Seizure precautions and safety, seizure first aide, when to seek emergency care. Counseling was provided to the patient that missed medications, addition of some new medications, use of alcohol or other substances, and sleep deprivation can lower the seizure threshold. Patient was advised to not drive until released by a physician. I discussed the risk of depression and psychological comorbidities in patients with epilepsy and when to seek help as well as the black box warning of all antiepileptic medications which can increaserisk for suicidality. Women's health issues were addressed this visit- Patient was advised to take folic acid daily. Importance of contraception and potential teratogenicity of antiepileptic medications was discussed. Interaction of her medication with OCP was addressed. Further information regarding and contraception for women with epilepsy can be found at the [facility]. Patient was given my clinic contact information. Medical Management Continue current medications. I discussed the risks, benefits and alternatives of the medical plan with the patient. Questions were answered. The patient agreed with the plan as discussed. FOLLOW-UP: Return in about 4 months (around 08/09/2024). I spent a total of 30 minutes on the date of the service which included: preparing to see the patient completing clinical documentation [id number] patient care obtaining and/or reviewing separately obtained history counseling and educating the patient/family/caregiver ordering medications, tests, or procedures care coordination (not separately reported) Carol Neal APRN.CNP cc: Primary Care Physician: No primary care provider on file. No primary provider on file. Referring: SELF Phone: N/A Fax: Patient: Ms. Kayleen Kovacs [address] [facility] [id number] documented in this encounterOhio[facility]24 NoteHNO ID: [id number] Author: CAROL NEAL APRN.CNP Service: ? Author Type: Nurse Practitioner Type: Progress Notes Filed: 04/11/2024 11:25 Note Text: [facility] Patient Name: Kayleen Kovacs Date of : 1995 Referring Provider: SELF ESTABLISHED EPILEPSY CLINIC NOTE 04/08/2024 1:30 PM Reason for Visit: Seizures Clinical Summary: Ms. Kovacs is a 28 year old female seen in [facility]. We had a visit using: [email or web address] I received consent from the patient to perform the visit using this platform. I have communicated my name and active licensure. The patient's identity and physical location were verified at the time of this visit. Either the patient or their legal credit representative has been informed of the risks and benefit of - and alternatives to - treatment through a remote evaluation and consents to proceed with the evaluation remotely. There is no one accompanying the patient during today's visit. Classification Summary HISTORY OF PRESENT ILLNESS Handedness: Age of onset: Seizure History and Evolution Seizures began at [...] 4 days In the past she used Keppra, it did not work Lamictal level never checked No risk factors for epilepsy Interval Seizure History Patient presents for follow up regarding seizures. She is a patient of Dr. Karen Amaro, seen by her for the initial visit on 02/28/2024. At that visit, Lamotrigine was increased from 125 mg BID>> 150 mg BID due to recent seizure. Today, she denies any convulsive seizures since last visit, though notes that since increasing Lamotrigine, she has been experiencing body jumps or jolts daily. Can happen any time of day, no ANITA. She is taking LTG 150 mg BID, and also takes PGB 300 mg BID for pain related to spine fracture. States she sleeps okay. Mood is okay, a lot of stress due to health but follows closely with a therapist which helps. is a big support for her. Not planning . Does not drive. Total # of Current Anti-seizure Medications: Side Effects to Current Anti-seizure Medications: Seizure Frequency at First Visit: Longest Seizure-free Interval: Number of seizure types: 1 Hx of generalized tonic-clonic seizures: Yes Seizure-related driving accidents: No Driving: No Lives Alone: No CURRENT OUTPATIENT ANTISEIZURE MEDICATIONS (as of the start of the encounter) lamoTRIgine (LAMICTAL) 150 mg tablet 1 tablet twice a day pregabalin (LYRICA) 300 mg capsule Prior Anti-seizure Therapies: Trial Adequacy: Max Daily Dose Achieved: Side Effects: Effectiveness: Comments: Comorbidities: Episode Description: SEIZURE TYPE 1: GTC seizure Loss of awareness: Duration: Frequency: Last occurred: yes Patient Entered Data: EPILEPSY SCORE 04/07/2024 9:21 PM 04/07/2024 9:20 PM 04/07/2024 9:18 PM First answer obtained - 07/21/2023 10:39 AM PHQ-9 SCORE - - - - MOE 2 SCORE 6 [Positive Anxiety Screen] - - - MOE 7 SCORE 19 [Severe Anxiety Disorder] - - - QOLIE-10 SCORE (0=worst; 100=best QoL - higher scores represent better function) - - - - LSSS SCORE (0- no seizures 100- most severe possible seizures) - - 85 - C-SSRS SCREEN - - - - On average, how many hours of sleep do you get in a 24-hour period? - - - - PROMIS Sleep Disturbance T-SCORE - - - 72 [severe] Have you been diagnosed with Sleep Apnea? - - - - Seizure risk factors: Brain Tumor Unanswered [employer] ARCHITECT Infections Unanswered Developmental Delay Unanswered Family history of seizures Unanswered Febrile Seizure Unanswered Complications Unanswered Stroke Unanswered Traumatic Brain Injury Unanswered Previous Epilepsy Evaluations Other caregivers: Primary Care Provider: No primary care provider on file. Current Outpatient Medications Medication Sig ergocalciferol, vitamin D2, (VITAMIN D2 ORAL) Take 50,000 Units by mouth one time a week. ascorbic acid, vitamin C, (VITAMIN C) 500 mg tablet Take 500 mg by mouth once daily. lamoTRIgine (LAMICTAL) 150 mg tablet 1 tablet twice a day cloNIDine HCl (CATAPRES) 0.3 mg tablet Take 0.3 mg by mouth. ibuprofen (MOTRIN) 800 mg tablet Take 800 mg by mouth three times a day as needed. aspirin/acetaminophen/caffeine (EXCEDRIN EXTRA STRENGTH OR (more content not included)...[id number] NoteHNO ID: [id number] Author: TANGELA PAULA APRN.HARNESS INSPECTOR Service: ? Author Type: Nurse Practitioner Type: Progress Notes Filed: 04/17/2024 10:45 Note Text: I have communicated my name and active licensure. The patient's identity and physical location were verified at the time of this visit. Either the patient or their legal credit representative has been informed of the risks and benefits of -- and alternatives to -- treatment through a remote evaluation and consents to proceed with the evaluation remotely. IMPRESSION: Kayleen Kovacs is a 28 year old ambidextrous female. 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 She was diagnosed with fracture of L1 with T11-L3 fixation and L1-2 decompression Wheelchair bound. Virtual visit today for follow up. (M43.25) Fusion of spine of thoracolumbar region (primary encounter diagnosis) (Z87.898) History of seizures (Z91.81) History of recent fall (Z87.828) History of spinal cord injury (M54.50) Low back pain, unspecified back pain laterality, unspecified chronicity, unspecified whether sciatica present ACTIVE PROBLEM LIST Obstructive Sleep Apnea Bipolar 1 Disorder With Moderate Melinda (Hcc) Chronic Hepatitis C Virus Infection (Hcc) Closed Fracture of T12 Vertebra With Spinal Cord Injury (Hcc) Closed Compression Fracture of Body of L1 Vertebra (Hcc) Generalized-Onset Seizures (Hcc) Neuropathic Pain Mild Intermittent Asthma Without Complication Nonintractable 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 Fusion of spine of thoracolumbar region - ICD9: 724.9, ICD10: M43.25 (primary diagnosis) - continue with physical therapy 2. History of seizures - ICD9: V13.89, ICD10: Z87.898 - follow up with neurologist to discuss your new symptoms to rule out new seizures. - LAMOTRIGINE 3. History of recent fall - ICD9: V15.88, ICD10: Z91.81 - continue with physical therapy - MRI LUMBAR SPINE WO IVCON - MRI THORACIC SPINE WO IVCON - will get imaging to rule out any new fracture/nerve compression following fall. 4. History of spinal cord injury - ICD9: V12.49, ICD10: Z87.828 - MRI LUMBAR SPINE WO IVCON - MRI THORACIC SPINE WO IVCON 5. Low back pain, unspecified back pain laterality, unspecified chronicity, unspecified whether sciatica present - ICD9: 724.2, ICD10: M54.50 - continue to follow with pain management - MRI LUMBAR SPINE WO IVCON - MRI THORACIC SPINE WO IVCON - Will reach out on how to get scheduled for your DEXA scan following previous appt. [facility] on 04/08/24 MRI LUMBAR SPINE WO IVCON MRI THORACIC SPINE WO IVCON LAMOTRIGINE Subjective: Patient presents with: Follow Up Has about 20% left leg improvement 75% right leg. Recently she had a fall out wheelchair and fractured left knee. She has been trying to recover from the fall so she has not been able to do much therapy. She also notes that she has been having issues with jumping with her whole body. She says they are involuntary movements. She states that she has been having pain in her back as well since her fall. Follows with pain management and is on suboxone. Denies any changes to sensation in her lower extremity since the falls. Denies any changes to bowel or bladder since her fall as well. Has grand mal seizures normally, so she is unsure if the new sensation of the jumping is new seizure activity or injury to her back from the fall. States fall was 02/25/24 did not get evaluated following the fall. Recent labs/Imaging related to complaint: No new labs/images Medications Reviewed aspirin/acetaminophen/caffeine (EXCEDRIN EXTRA STRENGTH ORAL) Take by mouth two times a day. zonisamide (ZONEGRAN) 100 mg capsule Take 1 capsule by mouth daily at bedtime for 7 days, THEN 2 capsules daily at bedtime. ergocalciferol, vitamin D2, (VITAMIN D2 ORAL) Take 50,000 Units by mouth one time a week. ascorbic acid, vitamin C, (VITAMIN C) 500 mg tablet Take 500 mg by mouth once daily. lamoTRIgine (LAMICTAL) 150 mg tablet 1 tablet [...] day. QUEtiapine (SEROQUEL) 100 mg tablet Take 200 mg by mouth daily at bedtime. busPIRone (BUSPAR) 15 mg tablet Take 30 mg by mouth two times a day. sertraline (ZOLOFT) 25 mg tablet Take 25 mg by mouth once daily. ondansetron (ZOFRAN) 4 mg tablet Take 4 mg by mouth every 8 hours as needed for nausea/vomiting. baclofen 15 mg tablet Take 1 tablet by mouth three satnam (more content not included)...[facility]10-07-2024 History of Present illness Narrative* Tangela Paula, KATLYN.HARNESS INSPECTOR - 04/08/2024 11:06 AM EDT I have communicated my name and active licensure. The patient's identity and physical location wereverified at the time of this visit. Either the patient or their legal credit representative has been informed of the risks and benefits of -- and alternatives to -- treatment through a remote evaluation andconsents to proceed with the evaluation remotely. IMPRESSION: Kayleen Kovacs is a 28 year old ambidextrous female. 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 She was diagnosed with fracture of L1 with T11-L3 fixation and L1-2 decompression Wheelchair bound. Virtual visit today for follow up. (M43.25) Fusion of spine of thoracolumbar region (primary encounter diagnosis) (Z87.898) History of seizures (Z91.81) History of recent fall (Z87.828) History of spinal cord injury (M54.50) Low back pain, unspecified back pain laterality, unspecified chronicity, unspecified whether sciatica present ACTIVE PROBLEM LIST Obstructive Sleep Apnea Bipolar 1 Disorder With Moderate Melinda (Hcc) Chronic Hepatitis C Virus Infection (Hcc) Closed Fracture of T12 Vertebra With Spinal Cord Injury (Hcc) Closed Compression Fracture of Body of L1 Vertebra (Hcc) Generalized-Onset Seizures (Hcc) Neuropathic Pain Mild Intermittent Asthma Without Complication Nonintractable 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 Fusion of spine of thoracolumbar region - ICD9: 724.9, ICD10: M43.25 (primary diagnosis) - continue with physical therapy 2. History of seizures - ICD9: V13.89, ICD10: Z87.898 - follow up with neurologist to discuss your new symptoms to rule out new seizures. - LAMOTRIGINE 3. History of recent fall - ICD9: V15.88, ICD10: Z91.81 - continue with physical therapy - MRI LUMBAR SPINE WO IVCON - MRI THORACIC SPINE WO IVCON - will get imaging to rule out any new fracture/nerve compression following fall. 4. History of spinal cord injury - ICD9: V12.49, ICD10: Z87.828 - MRI LUMBAR SPINE WO IVCON - MRI THORACIC SPINE WO IVCON 5. Low back pain, unspecified back pain laterality, unspecified chronicity, unspecified whether sciatica present - ICD9: 724.2, ICD10: M54.50 - continue to follow with pain management - MRI LUMBAR SPINE WO IVCON - MRI THORACIC SPINE WO IVCON - Will reach out on how to get scheduled for your DEXA scan following previous appt. [facility] on 04/08/24 MRI LUMBAR SPINE WO IVCON MRI THORACIC SPINE WO IVCON LAMOTRIGINE Subjective: Patient presents with: Follow Up Has about 20% left leg improvement 75% right leg. Recently she had a fall out wheelchair and fractured left knee. She has been trying to recover from the fall so she has not been able to do much therapy. She also notes that she has been having issues with jumping with her whole body. She says they are involuntary movements. She states that she has been having pain in her back as well since her fall. Follows with pain management and is on suboxone. Denies any changes to sensation in her lower extremity since the falls. Denies any changes to bowel or bladder since her fall as well. Has grand mal seizures normally, so she is unsure if the new sensation of the jumping is new seizure activity or injury to her back from the fall. States fall was 02/25/24 did not get evaluated following the fall. Recent labs/Imaging related to complaint: No new labs/images Medications Reviewed aspirin/acetaminophen/caffeine (EXCEDRIN EXTRA STRENGTH ORAL) Take by mouth two times a day. zonisamide (ZONEGRAN) 100 mg capsule Take 1 capsule by mouth daily at bedtime for 7 days, THEN 2 capsules daily at bedtime. ergocalciferol, vitamin D2, (VITAMIN D2 ORAL) Take 50,000 Units by mouth one time a week. ascorbic acid, vitamin C, (VITAMIN C) 500 mg tablet Take 500 mg by mouth once daily. lamoTRIgine (LAMICTAL) 150 mg tablet 1 tablet [...] day. QUEtiapine (SEROQUEL) 100 mg tablet Take 200 mg by mouth daily at bedtime. busPIRone (BUSPAR) 15 mg tablet Take 30 mg by mouth two times a day. sertraline (ZOLOFT) 25 mg tablet Take 25 mg by mouth once daily. ondansetron (ZOFRAN) 4 mg tablet Take 4 mg by mouth every 8 hours as needed for nausea/vomiting. baclofen 15 mg tablet Take 1 tablet by mouth three times a day. 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 Social History Tobacco Use Smoking status: Every Day Smokeless tobacco: Never Tobacco comments: VAPES Substance Use Topics Drug use: Yes Types: Marijuana family history is not on file. Review of systems as noted, reviewed, and documented on intake section. Physical Exam: There were no vitals filed for this visit. General: no acute distress. Awake, alert. Cardiopulmonary: unlabored breathing. Appears well perfused Lower Extremities: no edema, no calf tenderness. Skin: Visualized areas are warm, dry, no jaundice During our face to face clinical encounter we discussed my concerns neurologically in terms of diagnosis, impact on health and activities of living, and addressed questions. I tried to reassure the patient and also address questions. I explained to the patient to call if any questions, to review res ults, and follow-up as instructed or as needed. Patient verbalizes understanding and I have addressed concerns and questions at this visit Patient has my contacts, educational material provided, and my chart sign up. After visit summary discussed. I spent a total of 20 minutes on the date of the service which included preparing to see the patient, [id number] patient care, completing clinical documentation, performing a medically appropriate examination, counseling and educating the patient/family/caregiver, ordering medications, tests, or p rocedures and communicating results to the patient/family/caregiver. Tangela Paula APRN.CNP Physical Medicine & Rehab [facility] documented in this encounterOhio[facility] NoteHNO ID: [id number] Author: KAREN SALAZAR MD Service: ? Author Type: Physician Type: Progress Notes Filed: 02/28/2024 16:04 Note Text: [facility] Patient Name: Kayleen GARCIA Date of : 1995 Referring Provider: Naty Benedict [address] [facility] [id number] INITIAL EPILEPSY CLINIC NOTE 02/28/2024 3:30 PM CHIEF COMPLAINT: New Patient HISTORY OF PRESENT ILLNESS Ms. Kovacs is a 28 year old female [facility] for initial consultation. We had a visit using: Clinical Ink I received consent from the patient to perform the visit using this platform. I have communicated my name and active licensure. The patient's identity and physical location were verified at the time of this visit. Either the patient or their legal credit representative has been informed of the risks [...] 4 days In the past she used Keppra, it did not work Lamictal level never [...] - Seizure risk factors: Brain Tumor Unanswered [employer] ARCHITECT Infections Unanswered Developmental Delay Unanswered Family history [...] by mouth th (more content not included)... [facility]08-28-2024 History of Present illness Narrative* Karen Salazar MD - 02/28/2024 3:56 PM EDT [facility] Patient Name: Kayleen GARCIA Date of : 1995 Referring Provider: Naty Benedict [address] [facility] [id number] INITIAL EPILEPSY CLINIC NOTE 02/28/2024 3:30 PM CHIEF COMPLAINT: New Patient HISTORY OF PRESENT ILLNESS Ms. Kovacs is a 28 year old female [facility] for initial consultation. We had a visit using: Clinical Ink I received consent from the patient to perform the visit using this platform. I have communicated my name and active licensure. The patient's identity and physical location wereverified at the time of this visit. Either the patient or their legal credit representative has been informed of the risks [...] 4 days In the past she used Keppra, it did not work Lamictal level never [...] - Seizure risk factors: Brain Tumor Unanswered [employer] ARCHITECT Infections Unanswered Developmental Delay Unanswered Family history [...] Comments Suicidal ideation SOCIAL HISTORY: -Lives in [place], [place] -Patient lives alone? No -Vocation: not [...] which included preparing to see the patient, [id number] patient care, and completing clinical documentation. Karen Amaro M.D documented in this encounterOhiohealth [facility]08-21-2024 History of Present illness Narrative* Vilma BatistaJENA - 02/21/2024 10:00 AM EDT Kayleen Kovacs 28 y.o. female presenting to be established into the Dr. Steven Vieira practice for alternative treatments to pain. Referred? Yes; Patient is currently seeing Pain Management? Yes; [facility] If Yes; Name of Provider: Medical conditions that they are seeing Pain Management for: Mid Back , Low Back, Knee, Both sides,and Foot, Both sides none Other- associated with [facility] Current Primary Care Provider: Yes; If Yes; Name of Provider: REQUIRED DOCUMENTS Have a photo ID: Yes; Signed Chcf Controlled Document: Yes; Signed Patient Responsibilities: Yes; Signed Consent to Treat: Yes; POLICIES Patient is aware that they must follow-up as directed by Dr. Steven Vieira while being treated forpain. Patient is aware of Medical Marijuana Policy. Patient is aware of our BNZO Policy. Patient is aware of our Voicemail Policy. Patient is aware that they are only to take the medication prescribed for pain by their provider. OAARS Reviewed Yes; Medication: Oxycodone 5 mg Last filled: 06/30/23 Quantity: 12 Day Supply: 17 Provider: Earline Chen Medication: Phentermine 37.5 mg Last filled: 02/01/24 [...] Legal Issues? 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 Pt has been tried in the past with Oxycodone 5mg but due to the medication not being [...] TB rate No; Have you been in usp, senior care, or a skilled nursing No; Have you ever had a (Bac[place] [...] itself. Vilma Batista MA Substance Abuse Intake [facility]/ [facility] Dr. Mireya Vieira, Alejandro Plascencia; HARNESS INSPECTOR; Maricarmen Chahal; DB. Direct Phone Line: [phone]; Available M-F 8:00 am to 4:30 pm. * Mireya Vieira MD - 02/21/2024 10:00 AM EDT Follow Up Visit Kayleen Kovacs [id number] 1995 02/21/2024 Chief Complaint Patient presents with Establish Care Ocular Care Technician to est with Dr. Vieira for pain [...] Patient is currently seeing Pain Management? Yes; [facility] If Yes; Name of Provider: Medical conditions that they are seeing Pain Management for: Mid Back , Low Back, Knee, Both sides,and Foot, Both sides none Other- associated with [facility] Current Primary Care Provider: Yes; If Yes; Name of Provider: REQUIRED DOCUMENTS Have a photo ID: Yes; Signed Chcf Controlled Document: Yes; Signed Patient Responsibilities: Yes; Signed Consent to Treat: Yes; POLICIES Patient is aware that they must follow-up as directed by Dr. Steven Vieira while being treated forpain. Patient is aware of Medical Marijuana Policy. Patient is aware of our BNZO Policy. Patient is aware of our Voicemail Policy. Patient is aware that they are only to take the medication prescribed for pain by their provider. OAARS Reviewed Yes; Medication: Oxycodone 5 mg Last filled: 06/30/23 Quantity: 12 Day Supply: 17 Provider: Earline Chen Medication: Phentermine 37.5 mg Last filled: 02/01/24 [...] Legal Issues? 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 Pt has been tried in the past with Oxycodone 5mg but due to the medication not being [...] TB rate No; Have you been in usp, senior care, or a skilled nursing No; Have you ever had a (Bacille Calmette-Johnny) Vaccine No; Have you ever been told you have an abnormal chest x-ray No; COURSE OF TREATMENT The following medications were discussed that we use to treat pain [facility], [place], Butrans, Suboxone, Zubsolv, The appropriate medication [...] in the past and encouraged her that itwas awesome that she has recovered from that [...] here; she stated to me that the [facility] that she sees recommended she [...] and BETSY confirmed that you could; unfortunately Itold her that I don't practice based off of what BETSY tells us but used medical data and cdc and jethro and fda guidelines to prescribe medications; pt became very belligerent and as she wheeled herselfout she told me I could go FUCK my self that this whole building could go FUCK itself and that thisis a joke that if a [facility] pain doc said you could take suboxone [...] Resource Strain: Low Risk (01/16/2023) Received from [facility] Overall Financial Resource Strain (CARDIA) Difficulty of Paying Living Expenses: Not very hard Food Insecurity: No Food Insecurity (05/06/2023) Received from [facility] Hunger Vital Sign Worried About Running Out of Food in the Last Year: Never true Ran Out of Food in the Last Year: Never true Received from [facility] Transportation Problems ([facility] HRSN) Physical Activity: Inactive (01/19/2023) Received from [facility] Exercise Vital Sign Days of Exercise per Week: 0 days Minutes of Exercise per Session: 0 min Stress: Stress Concern Present (01/16/2023) Received from [facility] [employer] [place] [facility] [employer] [facility] - Occupational Stress Questionnaire Feeling of Stress : Very much Social Connections: Moderately Integrated (01/16/2023) Received from [facility] Social Connection and Isolation Panel [NHANES] Frequency of Communication with Friends and Family: More than three times a week Frequency of Social Gatherings with Friends and Family: Once a week Attends Worship Services: Never Active Member of Clubs or Organizations: Yes Attends Club or Organization Meetings: Never Marital Status: Intimate Partner Violence: Not At Risk (01/16/2023) Received from [facility] Humiliation, Afraid, Rape, and Kick questionnaire Fear of Current or Ex-Partner: No Emotionally Abused: No Physically Abused: No Sexually Abused: No Housing Stability: Unknown (01/16/2023) Received from [facility] Housing Stability Vital Sign Unable to [...] BP 122/64 Smoking Status Heavy Smoker Kayleen Kovacs 28 y.o. female presenting to be established into the Dr. Steven Vieira practice for alternative treatments to pain. Referred? Yes; Patient is currently seeing Pain Management? Yes; [facility] If Yes; Name of Provider: Medical conditions that they are seeing Pain Management for: Mid Back , Low Back, Knee, Both sides,and Foot, Both sides none Other- associated with [facility] Current Primary Care Provider: Yes; If Yes; Name of Provider: REQUIRED DOCUMENTS Have a photo ID: Yes; Signed Gutter Mouth Cutter Controlled Document: Yes; Signed Patient Responsibilities: Yes; Signed Consent to Treat: Yes; POLICIES Patient is aware that they must follow-up as directed by Dr. Steven Vieira while being treated forpain. Patient is aware of Medical Marijuana Policy. Patient is aware of our BNZO Policy. Patient is aware of our Voicemail Policy. Patient is aware that they are only to take the medication prescribed for pain by their provider. OAARS Reviewed Yes; Medication: Oxycodone 5 mg Last filled: 06/30/23 Quantity: 12 Day Supply: 17 Provider: Earline Chen Medication: Phentermine 37.5 mg Last filled: 02/01/24 [...] Legal Issues? 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 Pt has been tried in the past with Oxycodone 5mg but due to the medication not being [...] TB rate No; Have you been in usp, senior care, or a skilled nursing No; Have you ever had a (Bacille [...] itself. Vilma Batista MA Substance Abuse Intake [facility]/ [facility] Dr. Mireya Vieira, Alejandro Plascencia; HARNESS INSPECTOR; Maricarmen Chahal; DNP. Direct Phone Line: [phone]; Available M-F 8:00 am to 4:30 pm. [...] SCREEN Mireya Vieira MD documented in this encounterUniversity [facility]08-20-2024 History of Present illness Narrative* MARISEL Moulton - 02/20/2024 10:15 AM EDT GENERAL HISTORY AND PHYSICAL: NAME: Kayleen Kovacs : 1995 HISTORY OF PRESENT ILLNESS: Kayleen Kovacs is an 28 y.o. female is here for orthopedic evaluation left knee injury which occurred around December 31. She has epilepsy and has had seizures since 2017. She was in the kitchen with her who had his back turned and was doing dishes when she suddenly fell onto the floor out of a wheelchair and injured her knee. She had had a seizure which caused her to convulse out of the chair. Patient has history of being paraplegic from a T12-L1 injury compression fracture of L1 which followed from a fall after a seizure. She has been required have several surgeries and subsequently continues to have seizures. She has sensation but loss of motor function particularly quadriceps. She presents to the office for consultation in his had MRI completed through her primary care provider. MRI was the determining factor on the fractures and bone contusions. PAST MEDICAL HISTORY: Past Medical History: Diagnosis Date Anxiety Asthma (CMS/HCC) Depression (CMS/HCC) Hepatitis C (CMS/HCC) History of being hospitalized [facility] - Seizure Memory problem PCOS (polycystic ovarian syndrome) Seizure disorder (CMS/HCC) Seizure disorder (CMS/HCC) PAST SURGICAL HISTORY: Past Surgical History: Procedure Laterality Date BACK SURGERY 05/2023 -L1 SECTION, LOW TRANSVERSE 2018 PLEURA BIOPSY 05/2023 MA REMOVE TONSILS/ADENOIDS,12+ Y/O TONSILLECTOMY SOCIAL HISTORY: Social History Occupational History Not on file Tobacco Use Smoking status: Every Day Current packs/day: 0.50 Types: Cigarettes Smokeless tobacco: Never Tobacco comments: Smokes 5 or less vaping Vaping Use Vaping status: Every Day Substance and Sexual Activity Alcohol use: Never Comment: caffeine: coffee Drug use: Not Currently Types: Methamphetamines Comment: quit 2019 Sexual activity: Not on file ALLERGIES: Allergies Allergen Reactions Cymbalta [Duloxetine Hcl] Anxiety Duloxetine Other Reaction(s): Other: See Comments Suicidal ideation Propofol Anaphylaxis Hydroxyzine Rash Other Reaction(s): AOF, Other: See Comments Other reaction(s): AOF Other Reaction(s): AOF Other reaction(s): AOF Other Reaction(s): AOF Anesthetics, Amide Other reaction(s): AOF Anesthetics, [place] Other reaction(s): AOF Anesthetics, Halogenated Other reaction(s): AOF Hydroxyquinolines Levetiracetam Other Reaction(s): nightmares Other General anesthesia during Sodium Hypochlorite Hives MEDICATIONS: Current Outpatient Medications Medication Instructions aluminum & magnesium hydroxide-simethicone (Mylanta) 200-200-20 MG/5ML oral suspension 20 mL, Oral, Every 4 hours PRN baclofen (LIORESAL) 10 mg, Oral, 3 times daily baclofen (LIORESAL) 20 mg, Oral, 3 times daily busPIRone (BUSPAR) 30 mg, Oral, 2 times daily cloNIDine (CATAPRES) 0.3 mg, Oral, 2 times daily diphenhydrAMINE (Sominex) 25 MG tablet 1 tablet, Oral, Nightly PRN ergocalciferol (Vitamin D2) 1.25 MG (99261 UT) capsule 1 capsule, Oral, Weekly escitalopram (LEXAPRO) 20 mg, Oral, Every morning escitalopram (LEXAPRO) 10 mg, Oral, Daily etodolac (LODINE) 400 mg, Oral, 2 times daily PRN ibuprofen 400 mg, Oral, 4 times daily lamoTRIgine (LAMICTAL) 100 mg, Oral, 2 times daily lamoTRIgine (LAMICTAL) 25 mg, Oral, 2 times daily, To take in addition to the 100mg Lidocaine 4 % patch 2 patches, Transdermal, Nightly PRN melatonin 6 mg, Oral, Nightly Menthol, Topical Analgesic, 5 % gel 5 mL, Topical, Daily PRN Nyamyc [id number] UNIT/GM powder 1 application , Topical, 2 times daily ondansetron ODT (Zofran-ODT) 4 MG disintegrating tablet DISSOLVE 1 TABLET BY MOUTH EVERY 6 (SIX) HOURS NEEDED FOR NAUSEA and FOR VOMITING oxybutynin XL (DITROPAN-XL) 10 mg, Oral, Daily phentermine (ADIPEX-P) 37.5 mg, Oral, Daily polyethylene glycol (PEG) 3350 (GLYCOLAX) 17 g, Oral, Daily pregabalin (LYRICA) 300 mg, Oral, 2 times daily QUEtiapine (SEROquel) 200 MG tablet sertraline (Zoloft) 50 MG tablet TAKE 1 & 1/2 (ONE AND ONE-HALF) TABLETS BY MOUTH DAILY traMADol (ULTRAM) 50 mg, Oral, Every 12 hours PRN vitamin C 500 mg, Oral, Daily REVIEW OF SYSTEMS: Review of Systems General: Denies appetite or significant weight change. Denies fever, chills or night sweats. Denies lightheadedness. ENT: Denies dry mouth, sore throat or swollen glands. Denies difficulty swallowing. Denies ear pain. Respiratory: Denies chest pain, SOB, cough or wheezing. Denies asthma or pneumonia symptoms. Cardiovascular: Denies CP or palpitations. No syncope or dyspnea on exertion. Gastrointestinal: Denies nausea or vomiting. Denies heartburn or abdominal pain. Denies diarrhea. Genitourinary: Denies frequent or painful urination. Musculoskeletal: See HPI for comments. Integumentary: Denies rash, lesion or skin infection. Neurologic: Denies dizziness, headache or seizure history. Vitals: Body mass index is 32.19 kg/m . PHYSICAL EXAM: Physical Exam Patient has general pain to the anterior patella there is no residual ecchymosis or prepatellar bursal swelling noted. Her patella appears to be in good position and has no displacement she has general pain with range of motion of the knee and is able to bend it to 90 degrees with no active muscle involvement. Mediolateral collateral ligaments are stable. There is no excessive joint effusion noted today on exam. XR knee 1 or 2 views left Imaging Result: Left knee lateral and AP taken in the office today nonweightbearing. Images do demonstrate proximal1/3 transverse fracture of patella nondisplaced with some early callus. Also note osteomalacia due to paraplegia Orders Placed This Encounter Procedures XR knee 1 or 2 views left Order Specific Question: Is the patient ? Answer: No Order Specific Question: Reason for exam: Answer: pain XR knee 1 or 2 views left Imaging Result: Left knee lateral and AP taken in the office today nonweightbearing. Images do demonstrate proximal 1/3 transverse fracture of patella nondisplaced with some early callus. Also note osteomalacia due to paraplegia It is medically necessary to help alleviate discomfort with immobilization and extending the knee 0with splinting is our safest option of alleviating tension on the patella as to help prevent re-injury and displacement over the next 4 weeks. T ROM applied to patient locked in 0. ASSESSMENT: Left knee pain, unspecified chronicity Closed nondisplaced transverse fracture of left patella, initial encounter Tibial plateau fracture, unspecified laterality, closed, initial encounter Contusion of bone PLAN: We will place in long leg T ROM immobilizer locked in 0. This will alleviate tension off of the patella while trying to heal. May still take Tylenol for breakthrough discomfort and any stronger pain medication can be provided by your neurologist or pain specialist. Ice to the left knee 20 minutes several times a day he will be helpful. May unlock hinged braces at times when you need to have the knee bend for positioning in and out of vehicle and or going to the restroom. We will follow-up in 4 weeks for repeat x-ray of patella and left knee MARISEL Moulton documented in this encounterSaint John's [facility] [id number] Instructions* Patient Instructions* MARISEL Moulton - 02/20/2024 10:15 AM EDT We will place in long leg T ROM immobilizer locked in 0. This will alleviate tension off of the patella while trying to heal. May still take Tylenol for breakthrough discomfort and any stronger pain medication can be provided by your neurologist or pain specialist. Ice to the left knee 20 minutes several times a day he will be helpful. May unlock hinged braces at times when you need to have the knee bend for positioning in and out of vehicle and or going to the restroom. We will follow-up in 4 weeks for repeat x-ray of patella and left knee documented in this encounterSaint John's Breech [facility] Medical [id number] NotePatient Education Patellar Fracture, Adult A patellar fracture is a break in the kneecap. The kneecap is also called a patella. The patella islocated on the front of the knee. A [...] these instructions at home: Medicines ? Take grug-szd-cuuccvz and prescription medicines only as told by your health care provider. ? Ask your health care provider if the medicine prescribed to you: ? Requires you to avoid driving or using machinery. ? Can cause constipation. You may need to take these actions to prevent or treat constipation: ? Drink enough fluid to keep your urine pale yellow. ? Take xzxp-pxm-ydnizuv or prescription medicines. ? Eat foods that [...] injured limb to supp (more content not included)...[facility]08-08-2024 History of Present illness Narrative* Lisa Elliott RT(R) - 02/08/2024 11:30 AM EDT Radiology Service Progress Note PATIENT NAME: Kayleen Kovacs DATE OF SERVICE: February 08, 2024 TIME: 12:07 PM PATIENT IDENTITY VERIFICATION COMPLETED USING TWO (2) IDENTIFIERS: Name and Date of confirmedby patient verbally and Name and Date of confirmed by identification band. FALL SCREENING: Has the patient had 2 falls in the last year or 1 fall with injury or currently using an Ambulatory Assistive Device (Walker, Cane, Wheelchair, Crutches, etc.)? No PATIENT GENDER DATA: Female. status: Unknown status: N/A PATIENT RELEVANT IMPLANT DATA REVIEWED: Not Applicable PATIENT PRESENTS WITH AN IMPLANTABLE OR ATTACHED TABLET TECHNICIAN: No RADIOLOGY DEPARTMENT: Ultrasound PERIPHERAL IV DATA: Not applicable SIGNED BY: ADELSO Macias) February 08, 2024 12:07 PM documented in this encounterOhiohealth Riverside Methodist Hospital08-08-2024 NoteHNO ID: [id number] Author: LISA ELLIOTT RT(R) Service: ? Author Type: Agronomy Advisor Type: Progress Notes Filed: 02/08/2024 12:07 Note [...] PATIENT PRESENTS WITH AN IMPLANTABLE OR ATTACHED TABLET TECHNICIAN: No RADIOLOGY DEPARTMENT: Ultrasound PERIPHERAL IV DATA: Not applicable SIGNED BY: RT Colleen(R) February 08, 2024 12:07 [facility]08-08-2024 Instructions* Patient Instructions* Amber Bledsoe MD - 02/08/2024 11:11 AM [...] and possible initiation of buprenorphine vs suboxone -please discuss this with your PCP and possible referral to an welding process specialist/provider who prescribes these medications If you taper off of your tramadol, discuss possible initiation of amitriptyline with your psychiatrist to see if this medication might be beneficial for your pain and/or borderline personality disorder documented in this encounterOhiohealth Riverside Methodist Hospital08-08-2024 History of Present illness Narrative* Amber Bledsoe MD - 02/08/2024 10:30 AM EDT Images from the original note were not included. [facility] Pain Management Department Consultation Date: date 02/08/2024 - 10:33 AM Referring physician: Dr. Naty Benedict, physical medicine [address] [place] [id number] Kayleen Kovacs is seen in consultation requested [...] surgical change: Redemonstrated is fixation hardware connecting [id number]-B1, with laminectomy around L1. There is considerable [...] the note after review of the complete reportand/or the images. Those areas highlighted in red [...] and UTI, nonhealing L1 fracture sp T12 - L2 ASDF with L1 corpectomy and discectomy at T12-L1 and L1-L205/05/23 , complicated by PE and left hemothorax s/p video assisted thoracoscopy, VATS, chest tube placement and rib fragment removal who presents for considerations for future pain management. She iswheelchair-bound has been working with physical therapy of increasing the strength in her legs. Cholootes primarily pain in her low back worse on the left than the right. She notes disparate pain in h er left knee as well as occasional pain in her feet. She notes that prolonged sitting makes the pain in her back worse. Her and her partner state that a 6- hour car ride would have her down and [...] is off tramadol due to concerns for possibleserotonin syndrome. I encouraged her to discuss this with her psychiatrist due to her history of borderline personality disorder and interaction with Zoloft. We discussed the possible utility of lumbar paraspinal trigger point injections-Per prior notes she appears to not want to have injections and I encouraged her to look into these if she would want. We discussed referrals to the comprehensivepain recovery program, our pain psychologist, Dr. Landa, and our wellness center. She is open andamenable to all of these programs. Diagnostics/Referrals: -Chronic [...] not wish to entertain injections at this time- encouraged her to look into them and let [...] with patient. The patient is in agreement withthe above and verbalized understanding. Amber Bledsoe MD [...] specified Marital Status: Medical Decision Making The [facility] EMR was reviewed during the visit including: [...] Level: 4 - Moderate documented in this encounterOhiohealth Riverside Methodist Hospital08-08-2024 NoteHNO ID: [id number] Author: AMBER BLEDSOE MD Service: ? Author Type: Physician Type: Progress Notes Filed: 02/08/2024 11:23 Note Text: [facility] Consultation Date: date 02/08/2024 - 10:33 AM Referring physician: Dr. Naty Benedict, physical medicine [address] [facility] [address] Kayleen Kovacs is seen in consultation requested [...] surgical change: Redemonstrated is fixation hardware connecting [id number]-J8, with laminectomy around L1. There is considerable [...] The visualized sac (more content not included)... [facility]08-06-2024 Telephone encounter Note* Telephone Encounter - Ilan Marc RN - 02/06/2024 2:11 PM EDT Attempted to call patient, no answer, left message below on patient's voice mail, also sent this message to patient's my chart. This is [facility] office calling with an appointment reminder. You are scheduled with Dr. Bledsoe on January at 10:30 am, with an arrival time of 10:15 am. At [facility] building room 525. Please be advised that Dr. Bledsoe is primarily an interventional pain management provider and does not take over Opioid/Narcotic pain medication regimen. If you have been evaluated by [facility] Pain [facility] Provider currently or within the last 3 years , you will need to contact their offices to address switching care if recommended. Please bring any outside medical records to your appointment if they are not updated into the [facility]. Please be advised that the appointment with pain management will be for consultation only, any further recommendations will be provided to you at the end of the visit. If you have any question regarding your appointment , please contact the office appointment desk directly to discuss. ( [facility]: [phone] ) [facility]08-06-2024 Miscellaneous Notes* Telephone Encounter - Ilan Marc RN - 02/06/2024 2:11 PM EDT Attempted to call patient, no answer, left message below on patient's voice mail, also sent this message to patient's my chart. This is [facility] office calling with an appointment reminder. You are scheduled with Dr. Bledsoe on January at 10:30 am, with an arrival time of 10:15 am. At [facility] building room 525. Please be advised that Dr. Bledsoe is primarily an interventional pain management provider and does not take over Opioid/Narcotic pain medication regimen. If you have been evaluated by [facility] Pain Management Provider currently or within the last 3 years , you will need to contact their offices to address switching care if recommended. Please bring any outside medical records to your appointment if they are not updated into the [facility]. Please be advised that the appointment with pain management will be for consultation only, any further recommendations will be provided to you at the end of the visit. If you have any question regarding your appointment , please contact the office appointment desk directly to discuss. ( [facility]: [phone] ) documented in this encounterOhiohealth Riverside Methodist Hospital07-31-2024 History of Present illness Narrative* Gillian Millan MD - 01/31/2024 10:30 AM EDT Images from the original note were not included. [facility] UROLOGY NEW PATIENT CLINIC NOTE SERVICE DATE: 01/31/2024 NAME: Kayleen Kovacs REFERRED BY: Naty Benedict [address] [facility] [id number] Benedict for an opinion regarding neurogenic bladder. My final recommendations will be communicated back to the requesting physician by way of shared Medical record orletter to requesting physician via US mail. HISTORY OF PRESENT ILLNESS Ms. Kovacs is a 28 year old female with a history of borderline personality disorder, obesity, seizure disorder, PCOS w seizure + fall + L1 fracture 06/26/22 sp T11 - L3 PSDF complicated by Neuropathic pain and UTI, nonhealing L1 fracture sp T12 -L2 ASDF with L1 corpectomy and discectomy at B05-G8bqs L1- L205/05/23 , complicated by PE and left hemothorax [...] AD - she thinks so Lives in [facility] Cr 0.3 (May 2023) cystatin C [...] licensure. The patient's identity and physical location wereverified at the time of this visit. Either the patient or their legal credit representative has been informed of the risks and benefits of -- and alternatives to -- treatment through a remote evaluation andconsents to proceed with the evaluation remotely. PAST [...] 3. Spinal cord injury at T7-T12 level ([facility]) - ICD9: 952.15, ICD10: S24.103A 4. Borderline personality disorder ([facility]) - ICD9: 301.83, ICD10: F60.3 This is a 28-year-old female with a history of incomplete ?T6 paraplegia, borderline personality disorder, neurogenic bowel and bladder Currently Valsalva voids We discussed neurogenic lower urinary tract dysfunction Would recommend evaluation with video urodynamics She is some symptoms of autonomic dysreflexia so we will need blood pressure monitoring during thistest also needs a kidney ultrasound which has been ordered and we will help her schedule We discussed management of neurogenic bowel in general. We discussed things like MiraLAX, suppositories, enemas as well as other things like chait tubes and colostomies She would like to have a GI consult and I will set this up Gillian Millan MD Associate Staff [facility] [place] Department of Urology I spent a total of 30 minutes on the date of the service which included preparing to see the patient, zela-ar-hphw patient care, completing clinical documentation, obtaining and/or reviewing separately obtained history, performing a medically appropriate examination, counseling and educating the pat ient/family/caregiver, and ordering medications, tests, or procedures. >50% of time was devoted to patient counseling. documented in this encounterOhiohealth Riverside Methodist Hospital07-31-2024 NoteHNO ID: [id number] Author: GILLIAN MILLAN MD Service: ? Author Type: Physician Type: Progress Notes Filed: 01/31/2024 10:56 Note Text: [facility] UROLOGY NEW PATIENT CLINIC NOTE SERVICE DATE: 01/31/2024 NAME: Kayleen Kovacs REFERRED BY: Naty Benedict [address] [facility] [address] [address] Benedict for an [...] AD - she thinks so Lives in [facility] Cr 0.3 (May 2023) cystatin C [...] visit. Either the patient or their legal credit representative has been informed of the risks [...] 6.43 07/28/2022 05:39 AM (more content not included)...[id number] of Present illness Narrative* Shasta Maddox, KATLYN.HARNESS INSPECTOR - 01/25/2024 1:55 PM EDT [facility] Review of Records Patient: Kayleen Kovacs Address: [address] [place] [address] Impression: Review of records for Kayleen Kovacs, [...] long EEG and consultation with an Epileptologist Summar y: Onset: 21 years old Recent Seizure Frequency: [...] August 2019) PRIOR EVALUATIONS: [facility] [address], [place] [address] EEG (04/16/2021): Normal MRI brain wo/w contrast (04/19/2021): No acute intracranial abnormality ABDIRIZAK Recommendations: - Long EEG, consult with Epileptologist - Additional testing to be considered by epilepsy clinicians Signed: Shasta Maddox APRN.ISAAC January 25, [address] Reese for review and recommendations. MD Recommendations (as discussed with Dr. Reese): - Please proceed with the above plan. documented in this encounterOhiohealth Riverside [facility] Hospital07-25-2024 Telephone encounter Note * Telephone Encounter - Lorin Cornell - 01/25/2024 1:37 PM EDT [facility] Initial Intake Interview January 25, 2024 1:38 PM Caller: Brian Relationship to pt: Self Patient name: Kayleen Kovacs Age: [age] year old Address: [address] [address] (home) Insurance: Payor: [facility] MEDICAID / Plan: [facility] MEDICAID / Product Type: Medicaid / Referred by: Physician: Referring to: Any Reason for Evaluation: further evaluation and treatment Previously evaluated at: [facility] Age & date of onset of seizures/spells: [...] been requested? No Signed: Lorin Trimble [facility]07-25-2024 Miscellaneous Notes* Telephone Encounter - Lorin Cornell - 01/25/2024 1:37 PM EDT [facility] Initial Intake Interview January 25, 2024 1:38 PM Caller: Brian Relationship to pt: Self Patient name: Kayleen Kovacs Age: [age] year old Address: [address] [address] (home) Insurance: Payor: [facility] MEDICAID / Plan: [facility] MEDICAID / Product Type: Medicaid / Referred by: Physician: Referring to: Any Reason for Evaluation: further evaluation and treatment Previously evaluated at: [facility] Age & date of onset of seizures/spells: [...] brain No PET No Ictal SPECT No INGIRD No Naila No Neuropsych testing No Visual [...] No Signed: Lorin Trimble documented in this encounterOhiohealth Riverside [facility] Hospital07-24-2024 History of Present illness Narrative* DionicioChristina Esvin - 01/24/2024 3:25 PM EDT POPULATION HEALTH NAVIGATION OUTREACH Action/FYI [place] Support: Called pt to schedule an appt in Pain Management. Lvm for pt to call [phone]. Reason for Outreach Care Gap/HCC or Scheduling Wellness Visits Care Gaps due: Specialty Scheduling Patient Contacted: Unable or unnecessary to reach patient: Left message Quattro Wirelesshart message sent Navigation Signature: Christina Greenberg January 24, 2024 3:26 PM documented in this encounterOhiohealth Riverside [facility] Hospital07-23-2024 Telephone encounter Note * Telephone Encounter - Naty Benedict MD - 01/23/2024 12:28 PM EDT PMR Order placed for Neurology consult to assess and manage seizures Jeferson Benedict MD [facility]07-23-2024 Miscellaneous Notes* Telephone Encounter - Naty Benedict MD - 01/23/2024 12:28 PM EDT PMR Order placed for Neurology consult to assess and manage seizures Jeferson Benedict MD documented in this encounterOhiohealth Riverside [facility] Hospital07-22-2024 Telephone encounter Note * Telephone Encounter - Janice Sigala RN - 01/22/2024 10:10 AM EDT [facility]:01/09/24 Plan MRI Knee to assess for [...] and assess for pain management needs [facility]07-22-2024 Miscellaneous Notes* Telephone Encounter - Janice Sigala RN - 01/22/2024 10:10 AM EDT [facility]:01/09/24 Plan MRI Knee to assess for [...] for pain management needs documented in this encounterOhiohealth Riverside [facility] Hospital07-15-2024 History of Present illness Narrative* Vaishali De La Vega - 01/15/2024 10:30 AM EDT Physical Therapy Called to cancel 01/23 appt. [...] she had been in. documented [facility] Telephone encounter Note* Telephone Encounter - Valeria Dejesus RN - 01/12/2024 9:04 AM EDT Patient has called to inquire as to whether she needs to be fasting for blood work she scheduled @[facility] this morning. I confirmed with her that she should fast;she states that she ate an hour ago and will reschedule, Transferred to PSR. No other questions or concerns noted Valeria Dejesus RN [facility]07-12-2024 Miscellaneous Notes* Telephone Encounter - Valeria Dejesus RN - 01/12/2024 9:04 AM EDT Patient has called to inquire as to whether she needs to be fasting for blood work she scheduled @[facility] this morning. I confirmed with her that she should fast;she states that she ate an hour ago and will reschedule, Transferred to R. No other questions or concerns noted Valeria Dejesus RN documented in this encounterOhiohealth Riverside [facility] Hospital07-10-2024 Telephone encounter Note * Telephone Encounter - Shasta Garcia - 01/10/2024 9:[address] Benedict message was relayed to Ms. Kovacs this morning, 01/10/24. Ms. Kovacs is stating that her current physicians are not aware of any pain management physicians that deal with spinal cord injury patients. She is asking if you can recommend a pain management physician for her to see? Please advise. [facility]07-10-[facility] Miscellaneous Notes* Telephone Encounter - Shasta Garcia - 01/10/2024 9:[address] Benedict message was relayed to Ms. Kovacs this morning, 01/10/24. Ms. Kovacs is stating that her current physicians are not aware of any pain management physicians that deal with spinal cord injury patients. She is asking if you can recommend a pain management physician for her to see? Please advise. * Telephone Encounter - Shasta Garcia - 01/09/2024 3:26 PM EDT Patient was seen today, 01/09/24 Ms. Kovacs forgot to ask you a question. Is there anything that you can do for her pain in mid to lower back and both sides more so on the left side? Please advise. documented in this encounterOhiohealth Riverside [facility] Hospital07-09-2024 Telephone encounter Note * Telephone Encounter - Shasta Garcia - 01/09/2024 3:26 PM EDT Patient was seen today, 01/09/24 Ms. Kovacs forgot to ask you a question. Is there anything that you can do for her pain in mid to lower back and both sides more so on the left side? Please advise. [facility]07-09-2024 Instructions* Patient Instructions* Naty Benedict MD - 01/09/2024 12:38 PM EDT MRI [...] management needs BONE MINERAL DENSITY PATIENT INSTRUCTIONS Bone mineral density testing measures the amount of calcium in certain parts of your bones. This information determines how strong your bones are. The test is used to detect osteoporosis, a disease in which the bone's mineral content and density are low, increasing a person's risk of fractures. Thelumbar spine (lower back) and the hip are [...] your usual activities immediately. documented in this encounterOhiohealth Riverside [facility] Hospital07-09-2024 History of Present illness Narrative* Naty Benedict MD - 01/09/2024 11:00 AM EDT Images from the original note were not [...] Medicine Attending Outpatient Note Name: Kayleen Kovacs [id number] I was asked to evaluate (Kayleen Kovacs) by (Dr referring physician) for recommendations regarding management of his/her rehabilitation needs. My findings and recommendations will be communicatedthrough the shared electronic medical record. Date of [...] Polycystic ovary syndrome who was admitted to [facility] on 06/26/22 following a fall due to seizure with suspected SCI due to L1 burst fracture. She was taken to the OR on 06/26/22 by Getachew Leong for T11 - L3 PSDF. Hospital course complicatedby Neuropathic pain and UTI. She was sent to inpatient rehab on 07/08/22 and discharged on 07/28/22. She was admitted to [facility] on 05/05/23 with continued pain with imaging c/w nonhealing L1 fracture. She was taken to the OR on on 05/05/23 by Getachew Mendez for T12 -L2 ASDF with L1 corpectomy and discectomy at T12-L1 and L1-L2. Hospital course complicated by Pulmonary embolism and left hemothorax s/p video assisted thoracoscopy, VATS, chest tube placement and rib fragment removal by Dr Park (05/17/23). Interval History: Surgery last week and [...] placement and rib fragment removal by Dr Park (05/17/23). Sleep Apnea Past Surgical History: T11 - L3 PSDF (06/26/22). L1 corpectomy and discectomy at T12-L1 and L1-L2 (05/05/23). Left hemothorax s/p video assisted thoracoscopy, VATS, chest tube placement and rib fragment removal by Dr Park (05/17/23). 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 and child No Smoke, EtOh, [...] manual wheelchair with comfort M3 foam cushion. 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 Date getting chair xxx She doesn't drives [...] touch (-) Straight Leg Test (-) Contralateral Straightleg raise EXT: Left knee effusion with warmth [...] placement and rib fragment removal by Dr Park (05/17/23). Sleep Apnea Anxiety Borderline personality disorder [...] Injury Medicine Attending Physical Medicine & Rehabilitation [phone] documented in this encounterOhiohealth Riverside [facility] Hospital07-09-2024 Nurse Note* Janice Sigala RN - 01/09/2024 10:48 AM EDT Images from the original note were not [...] MEDICATION The following tests/records were reviewed: na. Janice Sigala RN [facility]07-09-2024 Nurse Note* Janice Sigala RN - 01/09/2024 10:48 AM EDT Images from the original note were not [...] MEDICATION The following tests/records were reviewed: na. Janice Sigala RN documented in this encounterOhiohealth Riverside Methodist Hospital06-12-2024 History of Present illness Narrative* MaykingVaishali - 12/13/2023 10:30 AM EDT Physical Therapy [facility] Inpatient/Observation/Outpatient Rehabilitation Date: 12/13/2023 Patient Name: Kayleen Mcallister Fermín [] Inpatient Acute/Observation [x] Outpatient : 1995 [facility] Inpatient/Observation/Outpatient Rehabilitation Date: 12/13/2023 Patient Name: Kayleen Ellerholli [] Inpatient Acute/Observation [] Outpatient : 1995 [...] does not require skilled services due to: Therapist/Highway Painter will attempt to see this patient, at our earliest opportunity. Vaishali De La Vega Date: 12/13/2023 Plan of Care/Recert ends * Vickie Feng, PT - 12/13/2023 10:[address] [facility] Inpatient/Observation/Outpatient Rehabilitation Date: 12/13/2023 Patient Name: [...] does not require skilled services due to: Therapist/Highway Painter will attempt to see this patient, at our earliest opportunity. Vickie Feng, PT, DPT Date: 12/13/2023 documented in this encounterBON [facility] History of Present illness Narrative* Lawyer Nicole - 12/05/2023 11:15 AM EDT Physical Therapy [facility] Inpatient/Observation/Outpatient Rehabilitation Date: 12/05/2023 Patient Name: [...] does not require skilled services due to: Therapist/Highway Painter will attempt to see this patient, at our earliest opportunity. Lawyer Rivera Date: 12/05/2023 documented in this encounterBON [facility]-2024 Telephone encounter Note* Telephone Encounter - Sri Johnson - 11/28/2023 4:51 PM EDT Per appt desk, Patient is scheduled for 01/09/2024 Sri Johnson [facility]05-28-2024 Miscellaneous Notes* Telephone Encounter - Sri Johnson - 11/28/2023 4:51 PM EDT Per appt desk, Patient is scheduled for 01/09/2024 Sri Johnson * Telephone Encounter - Sri Johnson - 11/20/2023 3:29 PM EDT Tangela Paula APRN.ISAAC has recommended Patient schedule a follow-up appointment (in-office) withDr. Jak. Called Patient-no answer. Left voicemail asking she call the [facility] [place] at [phone] schedule. Message also sent via [employer]. Sri Johnson documented in this encounterOhiohealth Riverside Methodist Hospital05-20-2024 Telephone encounter Note * Telephone Encounter - Sri Johnson - 11/20/2023 3:29 PM EDT Tangela Paula APRN.ISAAC has recommended Patient schedule a follow-up appointment (in-office) withDr. Nemunaitis. Called Patient-no answer. Left voicemail asking she call the [facility] at [phone] schedule. Message also sent via Shiftgig. Sri Johnson [facility]05-20-2024 Instructions* Patient Instructions* Tangela Paula APRN.CNP - 11/20/2023 12:22 PM EDT Will wean off baclofen and add tizanidine. Baclofen decreased to 15mg and start tizanidine at 1mg 4times per day as needed. If you notice blood pressure gets too low then stop the tizanidine. Will try lactulose for constipation on your bowel days. I will reach out to your PT office to see which brace you needed. documented in this encounterOhio[facility]05-17-2024 History of Present illness Narrative* Tangela Paula APRN.ISAAC - 11/17/2023 1:20 PM EDT I have communicated my name and active licensure. The patient's identity and physical location wereverified at the time of this visit. Either the patient or their legal credit representative has been informed of the risks and benefits of -- and alternatives to -- treatment through a remote evaluation andconsents to proceed with the evaluation remotely. November [...] L1-2 decompression Wheelchair bound. Had surgery in [place] and then was transferred to [facility]. HOSPITAL COURSE: Kayleen Kovacs is a 26 y.o. female who was admitted on 06/26/2022 Hospital Course: Txr from [place] for T12 and L1 fx with decreased power and paresthesia. Pt has hx of seizures, previously well controlled. Seizure 06/25 evening, fall while getting out ofcar 06/26: severe cauda equina secondary to T12 [...] chair. Lives with boyfriend who is helpful inproviding assistance for showering and household needs. States [...] Has been using baclofen but does not feelit is helpful. Does not want to back injections. Has also been on tizanidine in the past. Unsure ifit was helpful, she believes it was when [...] problem list on file for this patient. [facility] on 11/17/23 CONSULT TO PHYSICAL MEDICINE AND [...] not wanting to start injections. Tangela Paula APRN.HARNESS INSPECTOR During our face to face clinical encounter we discussed my concerns neurologically in terms of diagnosis, impact on health and activities of living, and addressed questions. I tried to reassure the patient and also address questions. I explained to the patient to call if any questions, to review res ults, and follow-up as instructed or as needed. Patient verbalizes understanding and I have addressed concerns and questions at this visit Patient has my contacts, educational material provided, and my chart sign up. After visit summary discussed. I spent a total of 45 minutes on the date of the service which included preparing to see the patient, [id number] patient care, completing clinical documentation, performing a medically appropriate examination, counseling and educating the patient/family/caregiver, ordering medications, tests, or p rocedures and communicating results to the patient/family/caregiver. Tangela Paula APRN.CNP Physical Medicine & Rehab [facility] documented in this encounterOhiohealth [facility]ide [facility]05-02-2024 History of Present illness Narrative* Dilcia Lee PTA - 11/02/2023 10:[address] [facility] Inpatient/Observation/Outpatient Rehabilitation Date: 11/02/2023 Patient Name: Kayleen Kovacs [] Inpatient Acute/Observation [x] Outpatient : 1995 [x] Pt cancelled due to: [x] No Reason Given [] Sick/ill [] Other: Unable to make it today. Therapist/Highway Painter will attempt to see this patient, at our earliest opportunity. Dilcia Lee, LIV [id number] Date: 11/02/2023 documented in this [facility] Miscellaneous Notes* Telephone Encounter - Arpan Cameron APRN.CNP - 10/02/2023 11:25 AM EDT Call made to patient to discuss image review. Reviewed imaging with Dr. Harrison. Per Dr. Harrison- CT shows solid fusion. MRI Lumbar shows no significant spinal canal stenosis or nerve compression. Nothing to do from surgical standpoint. Will consult PMR Dr. Roth due to being parapeligic documented in this encounterOhiohealth [facility]03-28-2024 History of Present illness Narrative* Kapilsadie MadysonLIV - 09/28/2023 10:[address] [facility] Outpatient Physical Therapy Daily Note Patient: Kayleen Kovacs : 1995 CSN #: [id number] Referring Physician: Deb Colon APRN - * Date: 09/28/2023 Diagnosis: cauda equina compression G83.4, pseudoarthrosis of lumbar spine S32.009k, complete paraplegia G82.21 Treatment Diagnosis: General weakness Onset Date: 05/08/22 PT Insurance Information: [facility] Total # of Visits Approved: 24 Per Physician Order Total # of Visits to Date: 16 No Show: 1 Canceled Appointment: 9 09/08/23 Plan of Care/Recert Due Pre-Treatment Pain: 5/10 Subjective: Pt reports increased soreness in L LB since last session, thinks she just may have overdone it. /10 pain in L LB Exercises: Exercise 1: [...] L LB since last session with pt admittingthat she thinks she may have overdone it. Applied HP to L LB while completing supine exercises and manual stretching to LLE to reduce tightnessand discomfort. Manual STM to L calf due to increased tig htness with pt reporting relief. Pt sylvain to [...] no vc's for technique to improve mobility.-progressing Gutter Mouth Cutter Goals Time Frame for Chcf Goals : 6 weeks Gutter Mouth Cutter Goal 1: pt will be safe and independent with her HEP Gutter Mouth Cutter Goal 2: Pt will be able to stand with bearing weight with LRAD on both legs for >/=15 minutes to increase BLe strength Gutter Mouth Cutter Goal 3: Pt will increase L LE strength to be able to move through full active ROM in water Chcf Goal 4: Pt will be able to take 5 steps in the water with min assistance with no LOB or fatigue to improve functional mobility. Minutes Tracking: Time In: 1038 Time Out: 1117 Minutes: 39 Timed Code Treatment Minutes: 38 Minutes Madyson Davila PTA Date: 09/28/2023 documented in this encounterBON [facility]03-22-2024 NoteHNO ID: [id number] Author: TU CANTU RT(R) Service: ? Author [...] PATIENT PRESENTS WITH AN IMPLANTABLE OR ATTACHED TABLET TECHNICIAN: No RADIOLOGY DEPARTMENT: General X-ray: Exam(s) Completed: Spine X-Ray(s): Thoracic and Lumbar AP / LAT / L5-S1 PERIPHERAL IV DATA: Not applicable SIGNED BY: RT Carlota(R) 2023 3:42 [id number] Miscellaneous Notes* [facility] - Lebron Estes RT(R) - 2023 4:40 PM EDT Radiology Service Progress Note PATIENT NAME: Kayleen Kovacs DATE OF SERVICE: 2023 TIME: 4:16 PM PATIENT IDENTITY VERIFICATION COMPLETED USING TWO (2) IDENTIFIERS: Name and Date of confirmedby patient verbally and Name and Date of confirmed by identification band. FALL SCREENING: Has the patient had 2 falls in the last year or 1 fall with injury or currently using an Ambulatory Assistive Device (Walker, Cane, Wheelchair, Crutches, etc.)? Yes, Patient High Riskfor Falls What interventions were put in place [...] PATIENT PRESENTS WITH AN IMPLANTABLE OR ATTACHED TABLET TECHNICIAN: No RADIOLOGY DEPARTMENT: MR; Exam(s) Completed: Spine: Thoracic spine and Lumbar spine PERIPHERAL IV DATA: Not applicable SIGNED BY: RT Hilton(R) 2023 4:16 PM documented in this encounterOhiohealth [facility]03-22-2024 History of Present illness Narrative* Tu Cantu RT(R) - 2023 3:10 PM EDT Radiology Service Progress Note PATIENT NAME: Kayleen Kovacs DATE OF SERVICE: 2023 TIME: 3:42 PM PATIENT IDENTITY VERIFICATION COMPLETED USING TWO (2) IDENTIFIERS: Name and Date of confirmedby patient verbally and Name and Date of [...] PATIENT PRESENTS WITH AN IMPLANTABLE OR ATTACHED TABLET TECHNICIAN: No RADIOLOGY DEPARTMENT: General X-ray: Exam(s) Completed: Spine X-Ray(s): Thoracic and Lumbar AP / LAT / L5-S1 PERIPHERAL IV DATA: Not applicable SIGNED BY: RT Carlota(R) 2023 3:42 PM documented in this encounterOhiohealth [facility]03-21-2024 History of Present illness Narrative* Maria Del Rosario Martinez PTA - 09/21/2023 10:[address] [facility] Outpatient Physical Therapy Daily Note Patient: Kayleen Kovacs : 1995 CSN #: [id number] Referring Physician: Deb Colon APRN - * Date: 09/21/2023 Treatment Diagnosis: General weakness Onset Date: 05/08/22 PT Insurance Information: [employer] Total # of Visits Approved: 24 Per Physician Order Total # of Visits to Date: 15 No Show: 1 Canceled Appointment: 9 09/08/23 [...] no vc's for technique to improve mobility.-progressing Gutter Mouth Cutter Goals Time Frame for Chcf Goals : 6 weeks Gutter Mouth Cutter Goal 1: pt will be safe and independent with her HEP Gutter Mouth Cutter Goal 2: Pt will be able to stand with bearing weight with LRAD on both legs for >/=15 minutes to increase BLe strength Gutter Mouth Cutter Goal 3: Pt will increase L LE strength to be able to move through full active ROM in water Gutter Mouth Cutter Goal 4: Pt will be able to take 5 steps in the water with min assistance with no LOB or fatigue to improve functional mobility. Minutes Tracking: Time In: 1015 Time Out: 1100 Minutes: 45 Timed Code Treatment Minutes: 44 Minutes Maria Del Rosario Martinez PTA Date: 09/21/2023 documented in this encounter[facility] History of Present illness Narrative* Dilcia Lee PTA - 09/14/2023 10:[address] [facility] Inpatient/Observation/Outpatient Rehabilitation Date: 09/14/2023 Patient Name: Kayleen Kovacs [] Inpatient Acute/Observation [x] Outpatient : 1995 [x] Pt no showed for scheduled appointment Injection Press Operator attempted to contact patient via phone, no answer. Voicemail was left to encourage patient to schedule further appointments since today was the last PT tx [place]. Dilcia [place] P[place] [id number] Date: 09/14/2023 documented in this encounterNAVAL [facility]-27-2024 History of Present illness Narrative* Dilcia Lee PTA - 08/29/2023 10:[address] [facility] Inpatient/Observation/Outpatient Rehabilitation Date: 08/29/2023 Patient Name: Kayleen Kovacs [] Inpatient Acute/Observation [x] Outpatient : 1995 [x] Pt cancelled due to: [] No Reason Given [x] Sick/ill [] Other: Injection Press Operator contacted patient via phone, she reports she called and cancelled her appointment earlier inthe day. Patient is getting over influenza currently. Dilcia Lee PTA [id number] Date: 08/29/2023 documented in this encounterNAVAL [facility]-2024 History of Present illness Narrative* Dilcia Lee PTA - 08/10/2023 10:[address] [facility] Outpatient Physical Therapy Daily Note Patient: Kayleen Kovacs : 1995 CSN #: [id number] Referring Physician: Deb Colon APRN - * Date: 08/10/2023 Diagnosis: cauda equina compression G83.4, pseudoarthrosis of lumbar spine S32.009k, complete paraplegia G82.21 Treatment Diagnosis: General weakness Onset Date: 05/08/22 PT Insurance Information: [facility] Total # of Visits Approved: 24 Per Physician Order Total # of Visits to Date: 14 No Show: 0 Canceled Appointment: 7 09/08/23 Plan of Care/Recert Due Pre-Treatment Pain: 5-6/10 Subjective: pt reports 5-6/10 LBP prior to treatment. Reports she is able to move her L LE more andmore at home, compliant with HEP. Exercises: Exercise 1: HEP: glut sets, bridges, hip adduction pillow squeeze, LAQ, marching, sidelying clamshells, heel slides Exercise 2: aq: 3# ankle weights donned to assist with keeping LE's from floating and bilateral armfloats Exercise 4: aq: Semi deep water walking fwd 3 laps + 2 laps. Lateral walking x2 laps, backwards x 2laps--SBA. Exercise 5: aq: Semi deep sink therex [...] demonstrating improved tolerance to pool therapy and improvedability to maintain posture and control of LE's. [...] no vc's for technique to improve mobility.-progressing Gutter Mouth Cutter Goals Time Frame for Chcf Goals : 6 weeks Gutter Mouth Cutter Goal 1: pt will be safe and independent with her HEP Gutter Mouth Cutter Goal 2: Pt will be able to stand with bearing weight with LRAD on both legs for >/=15 minutes to increase BLe strength Gutter Mouth Cutter Goal 3: Pt will increase L LE strength to be able to move through full active ROM in water Chcf Goal 4: Pt will be able to take 5 steps in the water with min assistance with no LOB or fatigue to improve functional mobility. Minutes Tracking: Time In: 1032 Time Out: 1119 Minutes: 47 Timed Code Treatment Minutes: 44 Minutes [place]cia [place] P[place] [id number] Date: 08/10/2023 documented in this encounterB[facility]01-18-2024 History of Present illness Narrative* Dilcia Lee PTA - 07/20/2023 10:[address] [facility] Inpatient/Observation/Outpatient Rehabilitation Date: 07/20/2023 Patient Name: Kayleen Kovacs [] Inpatient Acute/Observation [x] Outpatient : 1995 [x] Pt cancelled due to: [] No Reason Given [x] Sick/ill [] Other: Therapist/Highway Painter will attempt to see this patient, at our earliest opportunity. Dilcia Jesus, [facility] [id number] Date: 07/20/2023 documented in this encounterNAVAL [facility]-19-2023 History of Present illness Narrative* Maria Del Rosario Martinez, [facility] - 03/21/2023 9:[address] [facility] Inpatient/Observation/Outpatient Rehabilitation Date: 03/21/2023 Patient Name: Kayleen Kovacs [] Inpatient Acute/Observation [x] Outpatient : 1995 [x] Pt cancelled due to: [] No Reason Given [] Sick/ill [x] Other: Pt spoke with brick layer stating she was in too much pain to make it to therapy this date. Therapist/Highway Painter will attempt to see this patient, at our earliest opportunity. Maria Del Rosario Martinez, [facility] Date: 03/21/2023 documented in this encounterNAVAL [facility]-2023 History of Present illness Narrative* RT Michael(R) - 07/23/2022 8:30 AM EST Radiology Service Progress Note PATIENT NAME: Kayleen Kovacs DATE OF SERVICE: July 23, 2022 TIME: 9:15 AM PATIENT IDENTITY VERIFICATION COMPLETED USING TWO (2) IDENTIFIERS: Name and Date of confirmedby patient verbally. FALL SCREENING: Has the patient [...] 23, 2022 9:15 AM documented in this encounterOhio[facility]01-06-2023 History of Present illness Narrative* Restricted notes were excluded * Rashad Ascencio MD - 07/08/2022 8:27 AM EST Images from the original note were not [...] [facility], transport noon SUBJECTIVE Patient seen and examined at the bedside. No acute overnight events. Afebrile. VSS. Patient has no complaints at this time, very somnolent OBJECTIVE VITALS: Vitals: 07/08/22 0430 BP: 124/66 Pulse: 87 Resp: 12 Temp: 97.8 F (36.6 C) SpO2: 98% GENERAL: alert, no distress NEURO: GCS 15 HEENT: Normocephalic atraumatic (Esthela, RN as beveller operator & nurse aid present to assist in [...] directed the medical decision making with Resident/ABDIRIZAK afterthe physical/radiologic exam and laboratory values were reviewed and confirmed. Rashad Ascencio MD * Linsey Alonzo RD, LD - 07/07/2022 2:45 PM EST Comprehensive Nutrition Assessment Type and Reason for [...] loss Fluid Accumulation: Moderate to Severe Extremities Digital Measurement Advisor Strength: Not Performed Nutrition Assessment: Pt continues [...] Anthropometric Measures: Height: 5' 9 (175.3 cm) [place] Body Weight (IBW): 145 lbs (66 kg) Admission Body Weight: 280 lb (127 kg) Current Body Weight: 280 lb (127 kg), 193.1 % IBW. Weight Source: Stated Current BMI (kg/m2): 41.3 BMI Categories: Obese Class 3 (BMI 40.0 or greater) Estimated Daily Nutrient Needs: Energy Requirements Based On: Formula Weight Used for Energy Requirements: Current Energy (kcal/day): 7839-3981 kcals/day Weight Used for Protein Requirements: [place] Protein (g/day): 100 gm pro/day Method Used for Fluid Requirements: Other (Comment) Fluid (ml/day): per MD Nutrition Diagnosis: Inadequate oral intake related to acute injury/trauma as evidenced by intake 26- 50%, intake 51-75% (variable PO intakes; need for [...] to determine Linsey Alonzo RD, [place] Contact: [phone] * Thong Aguilar MD - 07/07/2022 10:51 AM EST Images from the original note were not [...] - PT/OT DISPO: acute inpatient rehab at [facility] SUBJECTIVE Patient seen and examined at the bedside. No acute overnight events. Afebrile. VSS. Patient has no complaints at this time. Awaiting precertification to [facility]. Patient states she would [...] it would need to be followed-up by PCPor BPM ARCHITECT. Informed her that unless she belongs to risk category, HIV and syphilis risk are low andthat Gonorrhea and Chlamydia are common curable STIs that can be checked. Patient understands and would like to be checked for Gonorrhea and Chlamydia. Patients state she understood this and will follow-up with primary care once discharged to follow the results of the investigations. Also mentionedshe can use [employer] to see results of study. OBJECTIVE VITALS: Vitals: 07/07/22 0930 BP: Pulse: Resp: Temp: 97.4 F (36.3 C) SpO2: GENERAL: alert, no distress NEURO: GCS 15 HEENT: Normocephalic atraumatic (Esthela, RN as beveller operator & nurse aid present to assist in [...] centrally. 1 cm retropulsion of posterior cortex ofL1, contributing to severe spinal canal narrowing and moderate spinal cord compression at L1 level.T2 hyperintensity in the conus medullaris, likely related [...] centrally. 1 cm retropulsion of posterior cortex ofL1, contributing to severe spinal canal narrowing and moderate spinal cord compression at L1 level.T2 hyperintensity in the conus medullaris, likely related [...] 07/07/2022, 10:55 AM Associated attestation - Fatou Park MD - 07/07/2022 4:41 PM EST I personally evaluated the patient and directed the medical decision making with Resident/ABDIRIZAK afterthe physical/radiologic exam and laboratory values were reviewed and confirmed. Fatou Park MD * VIKKI Weiner - 07/06/2022 1:48 PM EST [facility] Inpatient Psychotherapy Note VIKKI Weiner 07/06/2022 1:00 PM Kayleen Kovacs 1995 [id number] Time spent with Patient: 16 Minutes Presenting [...] mind. Therapist offered positive regard and used activelistening to offer emotional support. MSE: Appearance alert, [...] was able to identify getting home to childand dogs as motivators and appeared to relax [...] of the experience, strong negative beliefs about herself,self- blame, strong negative feelings, loss of interest, feeling [...] today? YES [] NO [x] Noted changes: * Adrian Coughlin DO - 07/06/2022 8:17 AM EST Images from the original note were not [...] pain every 4 hours Dispo: Placement, awaiting [facility] spinal rehab precert SUBJECTIVE Patient seen and examined at the bedside. No acute overnight events. Afebrile. VSS. Patient has no complaints at this time. Awaiting precertification to [facility]. OBJECTIVE VITALS: Vitals: 07/06/22 [...] 07/06/2022, 8:17 AM Associated attestation - Fatou Park MD - 07/06/2022 11:10 AM EST I personally evaluated the patient and directed the medical decision making with Resident/ABDIRIZAK afterthe physical/radiologic exam and laboratory values were reviewed and confirmed. Fatou Park MD * Angela MarieeNADIA - 07/05/2022 4:24 PM EST Occupational Therapy Facility/Department: [address] [place] Occupational Therapy Daily Treatment Note Name: Kayleen Kovacs : 1995 Date of Service: 07/05/2022 Discharge Recommendations: Patient would benefit from continued therapy after discharge Patient Diagnosis(es): The primary encounter diagnosis was Closed fracture of twelfth thoracic vertebra, unspecified fracture morphology, initial encounter (HCC). Diagnoses of Seizure ([facility]) and Spinedisorder were also pertinent to this visit. Past Medical History: has a past medical history of Anxiety, Bipolar 1 disorder ([facility]), Depressed, and Thoracic disc disorder. Past Surgical [...] waiting for RN to give pain meds. Pttransferred to EOB w/max assist x2 w/increased time [...] activity with setup and mod A using sock-aid/brand inspector Short Term Goal 4: identify 2 non-pharmacological pain-relieving techniques with 1 cue Short Term Goal 5: demo mod Ax1 for all bed mobility using log roll technique PRN and bed rails PRN Therapy Time Individual Concurrent Group Co-treatment Time In 1540 Time Out 1650 Minutes 55 15 min Timed Code Treatment Minutes: 55 Minutes NAILA VENEGAS/Dean * Clarissa James PT - 07/05/2022 4:17 PM EST Physical Therapy Facility/Department: [facility] Daily treatment note Name: Kayleen Fermín : 1995 Date of Service: 07/05/2022 Discharge Recommendations: Patient able to tolerate 3hrs of therapy a day, Patient would benefit from continued therapy after discharge PT Equipment Recommendations Equipment Needed: No Other: CTA Patient Diagnosis(es): The primary encounter diagnosis was Closed fracture of twelfth thoracic vertebra, unspecified fracture morphology, initial encounter ([facility]). Diagnoses of Seizure ([facility]) and Spinedisorder were also pertinent to this visit. Past Medical History: has a past medical history of Anxiety, Bipolar 1 disorder ([facility]), Depressed, and Thoracic disc disorder. Past Surgical [...] training, Endurance training, Wheelchair mobility training, Neuromuscular re-education,Pain management, Home exercise program, Safety education & training, Patient/Caregiver education & training, Equipment evaluation, education, & procurement, Positioning, Therapeutic activi ties Safety Devices Type of Devices: All fall [...] A for posterior lean progressing to mod A,with brief periods of min A Supine PROM of BLE x10 knee PF/DF with DF stretch x30s x2, flexion/extension, hip flexion/abduction. Pt c/o pain with end range knee extension of B legs, DF stretch x30s x2 AM-PAC Score [facility] Inpatient Mobility Raw Score : 8 (07/05/221616) AM-PAC Inpatient T-Scale Score : 28.52 (07/05/221616) Mobility Inpatient CMS 0-100% Score: 86.62 (07/05/221616) Mobility Inpatient CMS G-Code Modifier : CM (07/05/221616) Goals Short [...] Treatment Minutes: 23 Minutes Clarissa James PT * Chay Recio MD - 07/05/2022 10:25 AM EST Physical Medicine & Rehabilitation Progress Note 07/05/2022 [...] on Lovenox for DVT prophylaxis, on Seroquel, multimodalpain medications,- cauda equina syndrome Subjective: Notes unable to move lower extremities. Looking to go to [place] for rehab ROS: Denies fevers, chills, sweats. [...] transfer. Pt educated on pusred lip breathing techniquefor pain mgnt with poor return, unable to [...] of unstable L1 fracture and T11-L3 fusion on06/26 T12 compression fracture Tachycardia Anemia Seizures Asthma PCOS Chronic hepatitis C GERD Bipolar disorder Seroquel Anxiety Previous IV drug use Morbid obesity Pain Roxicodone Recommendations: Diagnosis: Traumatic lumbar spinal cord injury Therapy: Has PT/OT needs Medical Necessity: As above Support: Lives with spouse Rehab Recommendation: Would benefit acute IPR when medically ready-[id number] be started DVT Prophylaxis: Lovenox Chay [...] meaning can be extrapolated by contextual diversion * Adrian Coughlin DO - 07/05/2022 7:16 AM EST Images from the original note were not [...] 4 hours Dispo: Placement, will send to [facility] spinal rehab Chief Complaint: I am okay [...] previous exams. LAB: CBC: Recent Labs 07/03/22 0607/04/22 0625 WBC 7.0 7.7 HGB 8.9* 9.4* [...] directed the medical decision making with Resident/ABDIRIZAK afterthe physical/radiologic exam and laboratory values were reviewed and confirmed. No change in neuro exam. Pending placement for [place] rehab. S. Rashad Potter MD Acute Care Surgery * Donnell Davalos RN - 07/04/2022 8:52 PM EST Vape pen found in bed with patient during medication pass. Injection Press Operator asked patient if it was a vape pen and patient denied that it was. Injection Press Operator explained to patient that she cannot use a vape pen while in the hospital. Patient handed vape pen over and it was locked in medicine cabinet. * Adrian Coughlin DO - 07/04/2022 7:33 AM EST Images from the original note were not [...] at this time. Application sent to [facility] this AM. OBJECTIVE VITALS: [...] exams. LAB: CBC: Recent Labs 07/02/22 0412 07/03/22 0624 07/04/22 0625 WBC 7.3 7.0 7.7 HGB 9.0* 8.9* 9.4* HCT 30.0* 29.5* 31.8* MCV 87.0 86.3 87.6 PLT 376 413 467* BMP: Recent Labs 07/02/22 0412 07/03/22 0624 NA 134* 138 K 3.7 4.0 CL 95* 96* CO2 29 31 BUN 10 11 CREATININE 0.55 0.61 GLUCOSE 109* 92 RADIOLOGY: No results found. Clement Pierce MD 07/04/2022, 7:33 AM Associated attestation - Angel Potter MD - 07/04/2022 12:07 PM EST I personally evaluated the patient and directed the medical decision making with Resident/ABDIRIZAK afterthe physical/radiologic exam and laboratory values were reviewed and confirmed. No significant change in neuro exam. Pending spinal cord rehab placement. Ron Potter MD Acute Care Surgery * José Manuel Freeman RN - 07/03/2022 11:48 PM EST 2034: Messaged meteorologist liaison Trauma Resident Naty Desir DO about patient complaint that oral pain medication Roxicodone not working. No response or orders. 2146: Second message sent to Dr. Desir regarding the possibility of changing pain medication. 2155: Dr. Desir responded that he looked over patients pain medications and there isnt much more hecan give her at this time. 3: Messaged Dr. Desir again letting him know [...] 3 times per day and discontinued Robaxin * Linsey Alonzo RD, [place] - 07/03/2022 11:33 AM EST Comprehensive Nutrition Assessment Type and Reason for [...] loss Fluid Accumulation: Moderate to Severe Extremities Digital Measurement Advisor Strength: Not Performed Nutrition Assessment: Chart reviewed/pt [...] Anthropometric Measures: Height: 5' 9 (175.3 cm) [place] Body Weight (IBW): 145 lbs (66 kg) Admission Body Weight: 280 lb (127 kg) Current Body Weight: 280 lb (127 kg), 193.1 % IBW. Weight Source: Stated Current BMI (kg/m2): 41.3 BMI Categories: Obese Class 3 (BMI 40.0 or greater) Estimated Daily Nutrient Needs: Energy Requirements Based On: Formula Weight Used for Energy Requirements: Current Energy (kcal/day): 9868-2900 kcals/day Weight Used for Protein Requirements: [place] Protein (g/day): 100 gm pro/day Method Used for Fluid Requirements: Other (Comment) Fluid (ml/day): per MD Nutrition Diagnosis: Inadequate oral intake related to acute injury/trauma as evidenced by intake 26- 50%, intake 51-75% (variable PO intakes; need for [...] to determine Linsey Alonzo RD, LD Contact: [phone] TO * Adrian Coughlin DO - 07/03/2022 6:29 AM EST Images from the original note were not [...] 106* 109* RADIOLOGY: No results found. Adrian Coughlin, 07/03/2022, 6:30 AM Associated attestation - Angel Potter MD - 07/03/2022 8:35 PM EST I personally evaluated the patient and directed the medical decision making with Resident/ABDIRIZAK afterthe physical/radiologic exam and laboratory values were reviewed and confirmed. No significant change in BLE neuro exam. Insurance auth pending. D/c Reji jeter. Ron Potter MD Acute Care Surgery * Tammie NADIA Saucedo - 07/02/2022 4:18 PM EST Occupational Therapy Facility/Department: [address] [place] Occupational Daily Treatment Note Name: Kayleen Kovacs : 1995 Date of Service: 07/02/2022 Discharge Recommendations: Patient would benefit from continued therapy after discharge Patient Diagnosis(es): The primary encounter diagnosis was Closed fracture of twelfth thoracic vertebra, unspecified fracture morphology, initial encounter ([facility]). Diagnoses of Seizure ([facility]) and Spinedisorder were also pertinent to this visit. Past Medical History: has a past medical history of Anxiety, Bipolar 1 disorder ([facility]), Depressed, and Thoracic disc disorder. Past Surgical [...] transfer. Pt educated on pusred lip breathing techniquefor pain mgnt with poor return, unable to [...] activity with setup and mod A using sock-aid/brand inspector Short Term Goal 4: identify 2 non-pharmacological [...] with call light within reach. ROLANDA Barkley * Ruth Ann Feng PTA - 07/02/2022 2:18 PM EST Physical Therapy Facility/Department: [facility] Daily treatment note Name: Kayleen Kovacs : 1995 Date of Service: 07/02/2022 Discharge Recommendations: Patient able to tolerate 3hrs of therapy a day, Patient would benefit from continued therapy after discharge PT Equipment Recommendations Equipment Needed: No Other: CTA Patient Diagnosis(es): The primary encounter diagnosis was Closed fracture of twelfth thoracic vertebra, unspecified fracture morphology, initial encounter ([facility]). Diagnoses of Seizure ([facility]) and Spinedisorder were also pertinent to this visit. Past Medical History: has a past medical history of Anxiety, Bipolar 1 disorder ([facility]), Depressed, and Thoracic disc disorder. Past Surgical [...] training, Endurance training, Wheelchair mobility training, Neuromuscular re-education,Pain management, Home exercise program, Safety education & training, Patient/Caregiver education & training, Equipment evaluation, education, & procurement, Positioning, Therapeutic activi ties Safety Devices Type of Devices: All fall [...] (co-treat with OT) Ruth Ann Feng PTA * Lety Grider RN - 07/02/2022 1:58 PM EST Message to primary: patient is rating pain in hip an 02/09 and is crying in pain- can you please come see her * Lety Grider RN - 07/02/2022 1:02 PM EST Message to primary: patient requesting pain meds. does not have anything due * Lety Grider RN - 07/02/2022 10:20 AM EST Message to primary: Patient is rating pain in R hip a 01/09, she has had all available meds, can youplease address this, thanks! * Lety Grider RN - 07/02/2022 9:37 AM EST Foot drop boot moved to R foot, pt refusing repositioning * Adrian Coughlin DO - 07/02/2022 8:22 AM EST Images from the original note were not [...] bedside. No acute overnight events. Afebrile. Normotensive. Oxygensaturation greater than 95% on 1 L nasal cannula. Patient complaining of bilateral hip and lower extremity pain. Patient has no other complaints at this time. Denies shortness of breath, chest pain, fever, chills. Precertification to inpatient rehab pending ability to wean IV pain medicine. We willattempt to continue to wean today. OBJECTIVE VITALS: [...] directed the medical decision making with Resident/ABDIRIZAK afterthe physical/radiologic exam and laboratory values were reviewed and confirmed. Doing well. C/o hip and back pain. Exam unchanged in BLE - tingling without movement Will adjust pain meds. BLE venous duplex negative yesterday. D/c Leigh. PT/OT. Placement. S. Rashad Potter MD Acute Care Surgery * Sydney Dionicio, PT - 07/01/2022 2:25 PM EST Physical Therapy Facility/Department: [address] [place] Daily Treatment Note NAME: Kayleen [...] thoracic vertebra, unspecified fracture morphology, initial encounter ([facility]). Diagnoses of Seizure ([facility]) and Spinedisorder were also pertinent to this visit. Assessment Assessment: training on UE positioning and support for bed mobility with focus on pt initiating logroll, use of external support and directing assist needed in LE movement for positioining with goodtolerance and without increased pain. Pt positioned for comfort and pressure relief, foot drop splint placed with Pt and nursing education on wear schedule for pressure relief and prevention of foot d rop. Pt will continue to benefit frorm PT [...] training;Patient/Caregiver education &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 * Discharge Instr - IMER* Esthela Huffman RN - 06/28/2022 12:52 PM [...] Emergency Contact: Yaneli Duarte Mobile Relation: Parent Shellac Polisher needed? No Past Surgical History: Past Surgical History: Procedure Laterality Date SECTION 05/2018 LUMBAR SPINE SURGERY N/A 06/26/2022 T11 - L3 POSTERIOR DECOMPRESSION performed by Getachew Leong DO at [facility] OR SPINAL CORD DECOMPRESSION 06/26/2022 T11-L3 TONSILLECTOMY AND ADENOIDECTOMY Immunization History: There is no immunization history on file for this patient. Active Problems: Patient Active Problem List Diagnosis Code Closed compression fracture of body of L1 vertebra (HCC) S32.010A Closed fracture of twelfth thoracic vertebra (HCC) S22.089A Closed unstable burst fracture of first lumbar vertebra (HCC) S32.012A Complete paraplegia (HCC) G82.21 Cauda equina compression ([facility]) G83.4 Isolation/Infection: Isolation No Isolation Patient Infection Status None to display Nurse Assessment: Last Vital Signs: BP 127/77 Pulse (!) 111 Temp 98.6 F (37 C) (Oral) Resp 15 Ht 5' 9 (1.753m) Wt 280 lb (127 kg) LMP (LMP Unknown) SpO2 98% BMI 41.35 kg/m Last documented pain score (0-10 scale): Pain Level: 9 Last Weight: Wt Readings from Last 1 Encounters: 06/26/22 280 lb (127 kg) Mental Status: oriented and alert IV Access: - None Nursing Mobility/ADLs: Walking Dependent Transfer Dependent Bathing Dependent Dressing Dependent Toileting Dependent Feeding Independent Aircraft Manager Independent Med Delivery whole Wound Care Documentation [...] 10 Discharging to Facility/ Agency Name: [facility] Bashir Ovalle Address: Fax: Dialysis Facility (if applicable) Name: Address: Dialysis Schedule: Phone: Fax: Pool Player/Move Coordinator signature: PHYSICIAN SECTION Prognosis: Good Condition at [...] No change in H&P PHYSICIAN SIGNATURE: 1/ * Attachments The following attachments cannot be sent through Care Everywhere. * Compression Fracture: Spine ([facility]) * Seizure ([facility]) * Spinal Cord Injury: Paraplegic ([place]) documented in this encounterBON [employer] Work Phone: [phone] 175-237712-25-2022 Emergency department Note* Mayelin Ko LPN - 06/26/2022 3:39 AM EST [id number] Emergency department Note* Mayelin Ko LPN - 06/26/2022 3:39 AM EST Spirit here for transport. * Mayelin Ko LPN - 06/26/2022 3:15 AM EST Spoke with Aarti from [facility]. Crew is in [facility], Aarti to send pcs form to be completed. Crew eta is 15-20 minutes. * Mayelin Ko LPN - 06/26/2022 3:12 AM EST [facility] called, acceptance to [facility] ED to ED. Number for nurse to nurse [phone]. Fax number for facesheet is [phone]. [facility] also provided a number for [facility] transport if needed-- [phone]. * Mayelin Ko LPN - 06/26/2022 2:[address] Buitrago updated that [facility] will not be able to accept patient. Injection Press Operator to call [facility]. * Mayelin Ko LPN - 06/26/2022 2:36 AM EST [facility] does have a crew at [facility] that would be able to do transfer once we have accepting facility. * Mayelin Ko LPN - 06/26/2022 2:34 AM EST Spoke with Elizabeth with [facility], this loan underwriter gave information about patient. X- ray to push images for trauma To review and determine if they can accept. Will return call with update. Dr. Buitrago notified. * Mayelin Ko LPN - 06/26/2022 2:18 AM EST Spoke with Will from [facility] stat transfer, was informed they are paging out to on-call for ortho every five minutes, waiting to hear back. Will to try to contact nurse reviewing the case to give updated information to. * Micheal Guerrero RN - 06/26/2022 1:55 AM EST Pt has seizure lasting approximately one minute, physician called to bedside. * Levi Buitrago DO - 06/26/2022 12:37 AM EST History Chief Complaint Patient presents with Back [...] She was placed on a gurney. She reportssevere low back pain. She rates the pain [...] mobility due to her pain. She is ableto use her left hand grasp the right [...] made with Dr. Coon for spine at [facility], he is unable to accept the patient because they do not have neurology service available for consultation with due to her seizure activity. He recommends sending patient to a higher level of care. Access service will try [facility] in [place]. Our staff has contacted [facility] fall and we await communicate Heart rate is 130s. I have done an EKG which shows a sinus tachycardia. Patient's pain is seems to be her biggest complaint and I have ordered pain medication as well. IV fluids are being run. We will continue monitor. [facility] Emergency Room doctor Esperanza has contacted [...] fracture with bony fragments protruding to the spinalcolumn, seizure activity, seizure history neurologic weakness on left lower extremity Critical care time is 35 min as the patient needed prompt intervention to prevent neurologic decompensation. This time included [id number] evaluation on arrival with full history and exam obtained,discussion with EMS, old record review, old record [...] ELECTROCARDIOGRAPHY Levi Buitrago DO 06/26/22 0040 Levi Buitrago DO 06/26/22 0218 Levi Buitrago, 06/26/22 0238 Levi Buitrago, DO 06/26/22 0458 * Tricia Swanson RN - 06/26/2022 12:32 AM EST Pt states she had a seizure and then slipped and hit her back on the car door frame. Pt is alert and oriented. documented in this encounterVan [employer] Phone: [phone] NotePROCEDURE: CT SPINE LUMBAR WITHOUT CONTRAST CLINICAL HISTORY: [...] by: Jovan Hernandez MD 06/26/2022 12:20 AM [employer] [facility] Emergency department Note* Mayelin Ko LPN - 06/26/2022 3:15 AM EST Spoke with Aarti from [facility]. Crew is in [facility] to send pcs form to be completed. Crew eta is 15-20 minutes. [place] Phone: [phone] 155-670412-25-2022 Emergency department Note* Mayelin Ko LPN - 06/26/2022 3:12 AM EST [facility] called, acceptance to [facility] ED to ED. Number for nurse to nurse [phone]. Fax number for facesheet is [phone]. [facility] also provided a number for [facility] transport if needed-- [phone]. [place] Phone: [phone] Emergency department Note* Mayelin Ko LPN - 06/26/2022 2:[address] Buitrago updated that [facility] will not be able to accept patient. Injection Press Operator to call [facility]. [place] Phone: [phone] Emergency department Note* Mayelin Ko LPN - 06/26/2022 2:36 AM EST John does have a crew at [facility] that would be able to do transfer once we have accepting facility. [place] Phone: [phone] Emergency department Note* Mayelin Ko LPN - 06/26/2022 2:34 AM EST Spoke with Elizabeth with [facility], this loan underwriter gave information about patient. X- ray to push images for trauma DrDavian To review and determine if they can accept. Will return call with update. Dr. Buitrago notified. [place] Phone: [phone] Emergency department Note* Mayelin Ko LPN - 06/26/2022 2:18 AM EST Spoke with Will from [facility] stat transfer, was informed they are paging out to on-call for ortho every five minutes, waiting to hear back. Will to try to contact nurse reviewing the case to give updated information to. [place] Phone: [phone] Emergency department Note* Micheal Guerrero RN - 06/26/2022 1:55 AM EST Pt has seizure lasting approximately one minute, physician called to bedside. [place] Phone: [phone] NotePROCEDURE: CT SPINE LUMBAR WITHOUT CONTRAST CLINICAL HISTORY: [...] bodies are normal in shape and height. [id number] Physician Emergency department Note* Levi Buitrago, DO - 06/26/2022 12:37 AM EST History Chief Complaint Patient presents with Back [...] She was placed on a gurney. She reportssevere low back pain. She rates the pain [...] mobility due to her pain. She is ableto use her left hand grasp the right [...] made with Dr. Coon for spine at [facility], he is unable to accept the patient because they do not have neurology service available for consultation with due to her seizure activity. He recommends sending patient to a higher level of care. Access service will try [facility] in [place]. Our staff has contacted [facility] fall and we await communicate Heart rate is 130s. I have done an EKG which shows a sinus tachycardia. Patient's pain is seems to be her biggest complaint and I have ordered pain medication as well. IV fluids are being run. We will continue monitor. [facility] Emergency Room doctor Esperanza has contacted [...] fracture with bony fragments protruding to the spinalcolumn, seizure activity, seizure history neurologic weakness on left lower extremity Critical care time is 35 min as the patient needed prompt intervention to prevent neurologic decompensation. This time included [id number] evaluation on arrival with full history and exam obtained,discussion with EMS, old record review, old record [...] 06/26/22 0238 Levi Buitrago, DO 06/26/22 0458 [place] Phone: [phone] Emergency department Note* Tricia Swanson RN - 06/26/2022 12:32 AM EST Pt states she had a seizure and then slipped and hit her back on the car door frame. Pt is alert and oriented. [place] Phone: [phone]) 571-927605-11-2022 Evaluation + Plan note Diagnostic Tests Pending * HCV Genotyping Non Reflex [facility] No data available for this section [facility] Evaluation note* Diagnosis Closed wedge compression fracture of L1 vertebra, initial encounter- Primary Compression fracture of T12 vertebra, initial encounter Seizure Other convulsions documented in this encounter [employer] Phone: Evaluation note* Diagnosis Closed compression fracture of body of L1 vertebra (HCC)- Primary Closed fracture of twelfth thoracic vertebra, unspecified fracture morphology, initial encounter (HCC) Seizure (HCC) Other convulsions Spine disorder Other unspecified back disorder Closed fracture of twelfth thoracic vertebra (HCC) Closed unstable burst fracture of first lumbar vertebra (HCC) Closed fracture of lumbar vertebra without mention of spinal cord injury Complete paraplegia (HCC) Paraplegia Cauda equina compression (HCC) Cauda equina syndrome without mention of neurogenic bladder documented in this encounter [facility]ICAL CENTERChaikin [employer] Phone: evaluation noteNo [employer] Other Evaluation note* Diagnosis Mid back pain Backache, unspecified Fusion of spine of thoracolumbar region Congenital fusion of spine (vertebra) Spinal stenosis of lumbar region without neurogenic claudication Spinal stenosis, lumbar region, without neurogenic claudication Weakness Other malaise and fatigue [facility] Diagnosis Mid back pain Backache, unspecified Fusion of spine of thoracolumbar region Congenital fusion of spine (vertebra) [facility] Diagnosis Mid back pain Backache, unspecified Fusion of spine of thoracolumbar region Congenital fusion of spine (vertebra) Pathological fracture, other site, initial encounter for fracture Weakness Other malaise and fatigue [facility]* Diagnosis Fusion of spine of thoracolumbar region- Primary Congenital fusion of spine (vertebra) Weakness Other malaise and fatigue [facility] Diagnosis Paraplegia (HCC)- Primary Paraplegia Fusion of spine of thoracolumbar region Congenital fusion of spine (vertebra) Weakness Other malaise and fatigue Constipation, unspecified constipation type Spasticity Abnormal involuntary movements [facility]* Diagnosis Paraplegia (HCC)- Primary Paraplegia Neurogenic bladder Neurogenic bladder, NOS Neurogenic bowel Effusion of left knee Effusion of lower leg joint Neuropathic pain Neuralgia, neuritis, and radiculitis, unspecified Idiopathic osteoporosis Acute pain of left knee Mixed hyperlipidemia History of pulmonary embolism Personal history of pulmonary embolism documented in this encounter [facility] [place] [facility]* Diagnosis Neuropathic pain- Primary Neuralgia, neuritis, and radiculitis, unspecified Paraplegia (HCC) Paraplegia documented in this encounter [facility] [place] [facility]* Diagnosis Recurrent seizures (HCC)- Primary Other forms of epilepsy and recurrent seizures without mention of intractable epilepsy documented in this encounter [facility] [place] [facility]* Diagnosis Partial symptomatic epilepsy with complex partial seizures, not intractable, without status epilepticus (HCC)- Primary documented in this encounter [facility] [place] [facility]* Diagnosis Neurogenic bowel- Primary Neurogenic bladder Neurogenic bladder, NOS Spinal cord injury at T7-T12 level (HCC) Borderline personality disorder (HCC) Borderline personality disorder Incomplete paraplegia (HCC) Paraplegia documented in this encounter [facility] [place] [facility]* Diagnosis Myofascial low back pain- Primary Neuropathic pain Neuralgia, neuritis, and radiculitis, unspecified Paraplegia (HCC) Paraplegia Borderline personality disorder (HCC) Borderline personality disorder Personal history of spine surgery Other postprocedural status Burst fracture of lumbar vertebra, sequela documented in this encounter [facility] [place] [facility]* Diagnosis Neurogenic bladder Neurogenic bladder, NOS Paraplegia (HCC) Paraplegia documented in this encounter [facility] [place] [facility]* Diagnosis Narcotic dependence, in remission- Primary Unspecified drug dependence, in remission [facility] [place] [facility]* Diagnosis Convulsions, unspecified convulsion type (HCC)- Primary Recurrent seizures (HCC) Other forms of epilepsy and recurrent seizures without mention of intractable epilepsy Generalized convulsive epilepsy (HCC) Generalized convulsive epilepsy without mention of intractable epilepsy documented in this encounter [facility] [place] [facility]* Diagnosis 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 documented in this encounter [facility] [place] [facility]* Diagnosis Convulsions, unspecified convulsion type (HCC) documented in this encounter [facility] [place] [facility]* Diagnosis 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 documented in this encounter [facility] [place] [facility]* Diagnosis 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 documented in this encounter [facility] [place] [facility]* Diagnosis Fusion of spine of thoracolumbar region- Primary Congenital fusion of spine (vertebra) History of seizures Personal history of other disorders of nervous system and sense organs History of recent fall History of spinal cord injury Personal history of other disorders of nervous system and sense organs Low back pain, unspecified back pain laterality, unspecified chronicity, unspecified whether sciatica present [facility] [place] [facility] Diagnosis Left knee pain, unspecified chronicity- Primary Closed nondisplaced transverse fracture of left patella with routine healing, subsequent encounter Tibial plateau fracture, left, closed, with routine healing, subsequent encounter [facility] Diagnosis Left knee pain, unspecified chronicity- Primary Closed nondisplaced transverse fracture of left patella, initial encounter Tibial plateau fracture, unspecified laterality, closed, initial encounter Contusion of bone [facility] [place] [facility]* Diagnosis Mixed hyperlipidemia Fixation hardware in spine Other postprocedural status documented in this encounter [facility] [place] [facility]* Diagnosis Paraplegia (HCC)- Primary Paraplegia Mixed hyperlipidemia Fixation hardware in spine Other postprocedural status Neurogenic bladder Neurogenic bladder, NOS Constipation, unspecified constipation type Neuropathic pain Neuralgia, neuritis, and radiculitis, unspecified Neurologic gait dysfunction Abnormality of gait At risk for osteopenia Other specified conditions influencing health status [facility] this [facility] [place] [facility]* Diagnosis Paraplegia (HCC) Paraplegia Idiopathic osteoporosis documented [facility] this [facility] [place] [facility]* Diagnosis Mixed hyperlipidemia- Primary documented [facility] [place] [facility]* Diagnosis Generalized-onset seizures (HCC)- Primary Other convulsions Complete paraplegia (HCC) Paraplegia Anxiety and depression Dysthymic disorder Bipolar 1 disorder with moderate melinda (HCC) Bipolar I disorder, most recent episode (or current) manic, moderate Neuropathic pain Neuralgia, neuritis, and radiculitis, unspecified documented [facility] this encounter [facility] [place] [facility]* Diagnosis Paraplegia (HCC)- Primary Paraplegia Disuse osteoporosis Neurogenic bladder Neurogenic bladder, NOS Urinary retention Retention of urine, unspecified Chronic midline thoracic back pain Pathological fracture, other site, initial encounter for fracture Mixed hyperlipidemia Renal insufficiency Unspecified disorder of kidney and ureter documented [facility] this [facility] [place] [facility]* Diagnosis Generalized-onset seizures (HCC)- Primary Other convulsions [facility]* Diagnosis Paraplegia (HCC)- Primary Paraplegia Neurologic gait dysfunction Abnormality of gait [facility] this [facility] noteNo assessment information availableK[facility] Work Phone: Hospital Discharge instructions No data available for this section [facility] Reason for referral (narrative)* Diagnostic Procedure Only (Routine) - Pending Review Specialty Diagnoses / Procedures Referred By Contac t Referred To Contact US IMAGING Diagnoses Neurogenic bladder Paraplegia (HCC) Procedures US KIDNEY/BLADDER US RETROPERITONEAL REAL TIME W/IMAGE COMPLETE Naty Benedict MD [address] [place] [address] Us Imaging [place] [facility] Referral ID Status Reason Start Date Expiration Date Visits Requested Visits Authorized [id number] Pending Review Auto-Generat ed Referral 01/09/2024 02/07/2025 1 1 * Diagnostic Procedure Only (Routine) - Pending Review Specialty Diagnoses / Procedures Referred By Contac t Referred To Contact XR IMAGING Diagnoses Paraplegia (HCC) Idiopathic osteoporosis Procedures DXA-AXIAL SKELETON Naty Benedict MD [address] [place] [address] Xr Imaging [place] [facility] Referral ID Status Reason Start Date Expiration Date Visits Requested Visits Authorized [id number] Pending Review Auto-Generat ed Referral 01/09/2024 02/07/2025 1 1 * Consult, Test, Treat (Routine) - Authorized Specialty Diagnoses / Procedures Referred By Contac t Referred To Contact Urology Diagnoses Neurogenic bladder Procedures CONSULT TO UROLOGY OFFICE/OUTPATIENT NEW HIGH MDM 60 MINUTES Naty Benedict MD [address] [place] [address] Gillian Millan MD [address] [place] [address] Referral ID Status Reason Start Date Expiration Date Visits Requested Visits Authorized [id number] Authorized PCP Requested Referral 01/09/2024 01/08/2025 1 1 * MRI/CT (Routine) - Pending Review Specialty Diagnoses / Procedures Referred By Contac t Referred To Contact MR IMAGING Diagnoses Effusion of left knee Paraplegia (HCC) Acute pain of left knee Procedures MRI KNEE WO IVCON LEFT MRI ANY JT LOWER EXTREM W/O CONTRAST Naty Mathew MD [address] [place] [address] Mr Imaging [place] [address] Referral ID Status Reason Start Date Expiration Date Visits Requested Visits Authorized [id number] Pending Review Auto-Generat ed Referral 01/09/2024 02/07/2025 1 1 [facility] for referral (narrative)* Outpatient Procedure (Routine) - New Request Specialty Diagnoses / Procedures Referred By Contac t Referred To Contact [facility] Diagnoses Partial symptomatic epilepsy with complex partial seizures, not intractable, without status epilepticus (HCC) Procedures EPIL EEG LONG EEG EXTENDED MONITORING 61-119 MINUTES ELECTROENCEPHALOGRAM REC COMA/SLEEP ONLY Shasta Maddox APRN.CNP [address] [place] [id number] [place] [address] Referral ID Status Reason Start Date Expiration Date Visits Requested Visits Authorized [id number] New Request Auto-Generat ed Referral 01/25/2024 01/24/2025 1 1 [facility] for referral (narrative)* Outpatient Procedure (Routine) - New Request Specialty Diagnoses / Procedures Referred By Contac t Referred To Contact [facility] Diagnoses Neurogenic bladder Procedures FLUROURODYNAMICS [place] POST-VOIDING RESIDUAL URINE&/BLADDER CAP Gillian Millan MD [address] [place] [address] [facility] [address] [place] [address] Referral ID Status Reason Start Date Expiration Date Visits Requested Visits Authorized [id number] New Request Auto-Generat ed Referral 01/31/2024 01/30/2025 1 1 * Consult, Test, Treat (Routine) - Authorized Specialty Diagnoses / Procedures Referred By Contac t Referred To Contact Gastroenterology Diagnoses Neurogenic bowel Procedures CONSULT TO GASTROENTEROLOGY OFFICE/OUTPATIENT [facility] 60 MINUTES Gillian Millan MD [address] [place] [address] Referral ID Status Reason Start Date Expiration Date Visits Requested Visits Authorized [id number] Authorized PCP Requested Referral 01/31/2024 01/30/2025 1 1 [facility] for referral (narrative)* Outpatient Procedure (Routine) - Authorized Specialty Diagnoses / Procedures Referred By Contac t Referred To Contact [facility] Diagnoses Generalized convulsive epilepsy (HCC) Procedures EPIL EEG LONG EEG EXTENDED MONITORING 61-119 MINUTES ELECTROENCEPHALOGRAM REC COMA/SLEEP ONLY Amanda Son PA-C [address] [place] [address] [place] [address] Referral ID Status Reason Start Date Expiration Date Visits Requested Visits Authorized [id number] Authorized Auto-Generat ed Referral 04/15/2025 1 1 [facility] for referral (narrative)* Diagnostic Procedure Only (Routine) - Closed Specialty Diagnoses / Procedures Referred By Contac t Referred To Contact XR IMAGING Diagnoses Fixation hardware in spine Procedures XR LUMBAR LIMITED 2V AP/LAT RADEX SPINE LUMBOSACRAL 2/3 VIEWS Nemunaitis, Naty Macdonald MD [address] [place] [phone] Xr Imaging [facility] Referral ID Status Reason Start Date Expiration Date V isits Requested Visits Authorized [id number] Closed Auto-Generate d Referral 07/19/2024 08/18/2025 1 1 * Diagnostic Procedure Only (Routine) - Closed Specialty Diagnoses / Procedures Referred By Contac t Referred To Contact XR IMAGING Diagnoses Mixed hyperlipidemia Fixation hardware in spine Procedures XR THORACIC LIMITED 2V AP/LAT RADEX SPINE THORACIC 2 VIEWS Naty Benedict MD [address] [place] [phone] Xr Imaging [facility] Referral ID Status Reason Start Date Expiration Date V isits Requested Visits Authorized [id number] Closed Auto-Generate d Referral 07/19/2024 08/18/2025 1 1 [facility] for referral (narrative)* Diagnostic Procedure Only (Routine) - Closed Specialty Diagnoses / Procedures Referred By Contac t Referred To Contact XR IMAGING Diagnoses Fixation hardware in spine Procedures XR LUMBAR LIMITED 2V AP/LAT RADEX SPINE LUMBOSACRAL 2/3 VIEWS Naty Benedict MD [address] [place] [phone] Xr Imaging [facility] Referral ID Status Reason Start Date Expiration Date V isits Requested Visits Authorized [id number] Closed Auto-Generate d Referral 07/19/2024 08/18/2025 1 1 * Diagnostic Procedure Only (Routine) - Closed Specialty Diagnoses / Procedures Referred By Contac t Referred To Contact XR IMAGING Diagnoses Mixed hyperlipidemia Fixation hardware in spine Procedures XR THORACIC LIMITED 2V AP/LAT RADEX SPINE THORACIC 2 VIEWS Naty Benedict MD [address] [place] [address] [place] [address] Referral ID Status Reason Start Date Expiration Date V isits Requested Visits Authorized [id number] Closed Auto-Generate d Referral 07/19/2024 08/18/2025 1 1 * Consult, Test, Treat (Routine) - Authorized Specialty Diagnoses / Procedures Referred By Contac t Referred To Contact Nutrition Diagnoses Mixed hyperlipidemia Procedures CONSULT TO NUTRITION THERAPY MEDICAL NUTRITION ASSMT&IVNTJ INDIV EACH 15 TX Naty Benedict MD [address] [place] [id number] Referral ID Status Reason Start Date Expiration Date Visits Requested Visits Authorized [id number] Authorized PCP Requested Referral 07/19/2024 07/19/2025 1 4 [facility] for referral (narrative)* Diagnostic Procedure Only (Routine) - Closed Specialty Diagnoses / Procedures Referred By Contac t Referred To Contact XR IMAGING Diagnoses Paraplegia (HCC) Idiopathic osteoporosis Procedures DXA-AXIAL SKELETON Naty Benedict MD [address] [place] [phone] Xr Imaging [facility] Referral ID Status Reason Start Date Expiration Date V isits Requested Visits Authorized [id number] Closed Auto-Generate d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 Gustavo, Earline L, FOUNDATION DIGGER.HARNESS INSPECTOR [address] [place] [address], [place] [address] 07/12/23 French Binder Relationship Specialty Start Date End Date Gustavo, Earline L, FOUNDATION DIGGER.HARNESS INSPECTOR 1 [facility], [place] [id number] 07/12/23 French Binder Relationship Specialty Start Date End Date Gustavo, Earline L, FOUNDATION DIGGER.HARNESS INSPECTOR 1 [facility] [place] [address] 07/12/23 French Binder Relationship Specialty Start Date End Date Gustavo, Earline L, FOUNDATION DIGGER.HARNESS INSPECTOR [address] [place] [address], [place] [id number] 07/12/23 French Binder Relationship Specialty Start Date End Date Yaneli Lamb LPN PCP - General 12/08/22 French Binder Relationship Specialty Start Date End Date Earline Chen FOUNDATION DIGGER.HARNESS INSPECTOR [address] [place] [address], [place] [address] 07/12/23 French Binder Relationship Specialty Start Date End Date GustavoEarline porter FOUNDATION DIGGER.HARNESS INSPECTOR [address] [place] [address], [place] [address] 07/12/23 French Binder Relationship Specialty Start Date End Date Earline Chen FOUNDATION DIGGER.HARNESS INSPECTOR [address] [place] [address], [place] [address] 07/12/23 French Binder Relationship Specialty Start Date End Date Earline Chen FOUNDATION DIGGER.HARNESS INSPECTOR [address] [place] [address], [place] [address] 07/12/23 French Binder Relationship Specialty Start Date End Date Earline Chen, FOUNDATION DIGGER.HARNESS INSPECTOR [address] [place] [address], [place] [address] 07/12/23 French Binder Relationship Specialty Start Date End Date Earline Chen FOUNDATION DIGGER.HARNESS INSPECTOR 1 [facility] [place] [address] 07/12/23 French Binder Relationship Specialty Start Date End Date GustavoEarline porter FOUNDATION DIGGER.HARNESS INSPECTOR [address] [place] [address], [place] [address] 07/12/23 [place] [address] [address] Pain Management 02/06/24 [place] [address] [place] [address] Pain Management 02/06/24 French Binder Relationship Specialty Start Date End Date Earline Chen FOUNDATION DIGGER.HARNESS INSPECTOR [address] [place] [address] 07/12/23 [place] [address] [address] Pain Management 02/06/24 [place] [address] [place] [address] Pain Management 02/06/24 French Binder Relationship Specialty Start Date End Date Earline Chen, FOUNDATION DIGGER.HARNESS INSPECTOR [address] [place] [address] 07/12/23 [place] [address] [address] Pain Management 02/06/24 [place] [address] [place] [address] Pain Management 02/06/24 French Binder Relationship Specialty Start Date End Date Wendy Sandoval MD [address] [place] [address] [place] [address] PCP - General Family Medicine 12/15/17 French Binder Relationship Specialty Start Date End Date Earline Chen APRN.HARNESS INSPECTOR [address] [place] [address] 07/12/23 [place] [address] [address] Pain Management 02/06/24 [place] [address] [place] [address] Pain Management 02/06/24 French Binder Relationship Specialty Start Date End Date Earline Chen, FOUNDATION DIGGER.HARNESS INSPECTOR [address] [place] [address] 07/12/23 [place] [address] [address] Pain Management 02/06/24 [place] [address] [place] [address] Pain Management 02/06/24 French Binder Relationship Specialty Start Date End Date Earline Chen FOUNDATION DIGGER.HARNESS INSPECTOR [address] [place] [address] 07/12/23 [place] [address] [address] Pain Management 02/06/24 [place] [address] [place] [address] Pain Management 02/06/24 French Binder Relationship Specialty Start Date End Date Earline Chen, FOUNDATION DIGGER.HARNESS INSPECTOR [address] [place] [address] 07/12/23 [place] [address] [address] Pain Management 02/06/24 [place] [address] [place] [address] Pain Management 02/06/24 French Binder Relationship Specialty Start Date End Date Earline Chen, FOUNDATION DIGGER.HARNESS INSPECTOR [address] [place] [address] 07/12/23 [place] [address] [address] Pain Management 02/06/24 [place] [address] [place] [address] Pain Management 02/06/24 French Binder Relationship Specialty Start Date End Date Earline Chen, FOUNDATION DIGGER.HARNESS INSPECTOR [address] [place] [address] 07/12/23 [place] [address] [address] Pain Management 02/06/24 [place] [address] [place] [address] Pain Management 02/06/24 French Binder Relationship Specialty Start Date End Date Earline Chen, FOUNDATION DIGGER.HARNESS INSPECTOR [address] [place] [address] 07/12/23 [place] [address] [address] Pain Management 02/06/24 Amber [place] [address] [place] [address] Pain Management 02/06/24 French Binder Relationship Specialty Start Date End Date Earline Chen, FOUNDATION DIGGER.HARNESS INSPECTOR [address] [place] [address] 07/12/23 [place] [address] [address] Pain Management 02/06/24 [place] [address] [place] [address] Pain Management 02/06/24 French Binder Relationship Specialty Start Date End Date Earline Chen MD [address] [place] [address] Referring Physician Family Medicine 05/10/24 French Binder Relationship Specialty Start Date End Date Earline Chen MD [address] [place] [address] Referring Physician Family Medicine 05/10/24 French Binder Relationship Specialty Start Date End Date Yaneli Lamb LPN PCP - General 12/08/22 French Binder Relationship Specialty Start Date End Date Earline Chen, FOUNDATION DIGGER.HARNESS INSPECTOR [address] [place] [address] 07/12/23 [place] [address] [address] Pain Management 02/06/24 [place] [address] [place] [address] Pain Management 02/06/24 French Binder Relationship Specialty Start Date End Date LambYaneli LPN PCP - General 12/08/22 French Binder Relationship Specialty Start Date End Date LambYaneli LPN PCP - General 12/08/22 French Binder Relationship Specialty Start Date End Date Karen Patel MD [address] [place], [facility] PCP - General Family Medicine 12/01/22 French Binder Relationship Specialty Start Date End Date LambYaneli LPN PCP - General 12/08/22 French Binder Relationship Specialty Start Date End Date Earline Chen APRN.HARNESS INSPECTOR [address] [place], [place] [address] 07/12/23 [place] [address] [address] Pain Management 02/06/24 [place] [address] [place] [address] Pain Management 02/06/24 French Binder Relationship Specialty Start Date End Date Yaneli Lamb LPN PCP - General 12/08/22 French Binder Relationship Specialty Start Date End Date Earline Chen, FOUNDATION DIGGER.HARNESS INSPECTOR [address] [place] [address] 07/12/23 [place] [address] [address] Pain Management 02/06/24 [place] [address] [place] [address] Pain Management 02/06/24 French Binder Relationship Specialty Start Date End Date Earline Chen FOUNDATION DIGGER.HARNESS INSPECTOR [address] [place] [address] 07/12/23 [place] [address] [address] Pain Management 02/06/24 [place] [address] [place] [address] Pain Management 02/06/24 French Binder Relationship Specialty Start Date End Date Earline Chen, FOUNDATION DIGGER.HARNESS INSPECTOR [address] [place] [address] 07/12/23 [place] [address] [facility] [address] [place] [address] Pain Management 02/06/24 [place] [address] [place] [address] Pain Management 02/06/24 French Binder Relationship Specialty Start Date End Date Earline Chen, FOUNDATION DIGGER.HARNESS INSPECTOR [address] [place] [address] 07/12/23 [place] [address] [address] Pain Management 02/06/24 [place] [address] [place] [address] Pain Management 02/06/24 French Binder Relationship Specialty Start Date End Date Yaneli Lamb LPN PCP - General 12/08/22 French Binder Relationship Specialty Start Date End Date Earline Chen, FOUNDATION DIGGER.HARNESS INSPECTOR [address] [place] [address] 07/12/23 [place] [address] [address] Pain Management 02/06/24 [place] [address] [place] [address] Pain Management 02/06/24 French Binder Relationship Specialty Start Date End Date Yaneli Lamb LPN PCP - General 12/08/22 French Binder Relationship Specialty Start Date End Date Yaneli Lamb LPN PCP - General 12/08/22 French Binder Relationship Specialty Start Date End Date Earline Chen FOUNDATION DIGGER.HARNESS INSPECTOR [address] [place] [address] 07/12/23 [place] [address] [address] Pain Management 02/06/24 [place] [address] [place] [address] Pain Management 02/06/24 French Binder Relationship Specialty Start Date End Date Earline Chen, FOUNDATION DIGGER.HARNESS INSPECTOR [address] [place] [address] 07/12/23 [place] [address] [address] Pain Management 02/06/24 [place] [address] [place] [address] Pain Management 02/06/24 French Binder Relationship Specialty Start Date End Date Earline Chen, FOUNDATION DIGGER.HARNESS INSPECTOR [address] [place] [address] 07/12/23 [place] [address] [address] Pain Management 02/06/24 [place] [address] [place] [address] Pain Management 02/06/24 French Binder Relationship Specialty Start Date End Date Earline Chen APRN.HARNESS INSPECTOR [address] [place] [address] 07/12/23 [place] [address] [address] [id number] Pain Management 02/06/24 [place] [address] [place] [address] Pain Management 02/06/24 Team Status: Active Member Role Status Dates Earline Chen NP-C Primary Care Provider Active Team Status: Inactive Member Role Status Dates Parth Wise PA-C Emergency Provider Active Start: November 24, 2024 End: November 24, 2024 Earline Chen NP-Jurgen Primary Care Provider Active Start: November 24, 2024 End: November 24, 2024 Team Status: Inactive Member Role Status Dates Earline Chen NP-C Primary Care Provider Active Start: December 16, 2024 End: December 16, 2024 Nik Ramirez DO Attending Provider Active S tart: December 16, 2024 End: December 16, 2024 Team Status: Inactive Member Role Status Dates Nik Ramirez DO Attending Provider Active S tart: January 27, 2025 End: January 27, 2025 Earline Chen NP-C Primary Care Provider Active Start: January 27, 2025 End: January 27, 2025 Team Status: Inactive Member Role Status Dates Nik Ramirez DO Attending Provider Active S tart: February 12, 2025 End: February 12, 2025 Earline Chen NP-C Primary Care Provider Active Start: February 12, 2025 End: February 12, 2025 Team Status: Inactive Member Role Status Dates MARISELA Fontanez Primary Care Provider Active Start: February 12, 2025 End: February 12, 2025 Nik Ramirez DO Attending Provider Active S tart: February 12, 2025 End: February 12, 2025 Ordered Prescriptions (unrec ognized section and content) Prescription Sig Dispensed Refills Start Date End Da te sennosides-docusate sodium (SENOKOT-S) 8.6-50 MG tablet Take 2 tablets by mouth daily 60 tablet 0 07/06/2022 oxyCODONE (OXY-IR) 10 MG immediate release tabletIndications:Cl osed fracture of twelfth thoracic vertebra, unspecified fracture morphology, initial encounter ([facility]) Take 1 tablet by mouth every 6 [...] prosecute any alcohol or drug abuse patient.[facility] the event this information is protected by the Federal Confidentiality of Alcohol and Drug Abuse Patient Records regulations: The Federal rules restrict any use of the information to criminally investigate or prosecute any alcohol or drug abuse patient.[facility] Hospital[facility] the event this information is protected by the Federal Confidentiality of Alcohol and Drug Abuse Patient Records regulations: The Federal rules restrict any use of the information to criminally investigate or prosecute any alcohol or drug abuse patient.[facility] HospitalIn the event this information is protected by the Federal Confidentiality of Alcohol and Drug Abuse Patient Records regulations: The Federal rules restrict any use of the information to criminally investigate or prosecute any alcohol or drug abuse patient.[facility] HospitalIn the event this information is protected by the Federal Confidentiality of Alcohol and Drug Abuse Patient Records regulations: The Federal rules restrict any use of the information to criminally investigate or prosecute any alcohol or drug abuse patient.[facility] HospitalIn the event this information is protected by the Federal Confidentiality of Alcohol and Drug Abuse Patient Records regulations: The Federal rules restrict any use of the information to criminally investigate or prosecute any alcohol or drug abuse patient.[facility] HospitalIn the event this information is protected by the Federal Confidentiality of Alcohol and Drug Abuse Patient Records regulations: The Federal rules restrict any use of the information to criminally investigate or prosecute any alcohol or drug abuse patient.[facility] HospitalIn the event this information is protected by the Federal Confidentiality of Alcohol and Drug Abuse Patient Records regulations: The Federal rules restrict any use of the information to criminally investigate or prosecute any alcohol or drug abuse patient.[facility] HospitalIn the event this information is protected by the Federal Confidentiality of Alcohol and Drug Abuse Patient Records regulations: The Federal rules restrict any use of the information to criminally investigate or prosecute any alcohol or drug abuse patient.[facility] HospitalIn the event this information is protected by the Federal Confidentiality of Alcohol and Drug Abuse Patient Records regulations: The Federal rules restrict any use of the information to criminally investigate or prosecute any alcohol or drug abuse patient.[facility] HospitalIn the event this information is protected by the Federal Confidentiality of Alcohol and Drug Abuse Patient Records regulations: The Federal rules restrict any use of the information to criminally investigate or prosecute any alcohol or drug abuse patient.[facility] HospitalIn the event this information is protected by the Federal Confidentiality of Alcohol and Drug Abuse Patient Records regulations: The Federal rules restrict any use of the information to criminally investigate or prosecute any alcohol or drug abuse patient.[facility] HospitalIn the event this information is protected by the Federal Confidentiality of Alcohol and Drug Abuse Patient Records regulations: The Federal rules restrict any use of the information to criminally investigate or prosecute any alcohol or drug abuse patient.[facility] HospitalIn the event this information is protected by the Federal Confidentiality of Alcohol and Drug Abuse Patient Records regulations: The Federal rules restrict any use of the information to criminally investigate or prosecute any alcohol or drug abuse patient.[facility] HospitalIn the event this information is protected by the Federal Confidentiality of Alcohol and Drug Abuse Patient Records regulations: The Federal rules restrict any use of the information to criminally investigate or prosecute any alcohol or drug abuse patient.[facility] HospitalIn the event this information is protected by the Federal Confidentiality of Alcohol and Drug Abuse Patient Records regulations: The Federal rules restrict any use of the information to criminally investigate or prosecute any alcohol or drug abuse patient.[facility] HospitalIn the event this information is protected by the Federal Confidentiality of Alcohol and Drug Abuse Patient Records regulations: The Federal rules restrict any use of the information to criminally investigate or prosecute any alcohol or drug abuse patient.[facility] HospitalIn the event this information is protected by the Federal Confidentiality of Alcohol and Drug Abuse Patient Records regulations: The Federal rules restrict any use of the information to criminally investigate or prosecute any alcohol or drug abuse patient.[facility] HospitalIn the event this information is protected by the Federal Confidentiality of Alcohol and Drug Abuse Patient Records regulations: The Federal rules restrict any use of the information to criminally investigate or prosecute any alcohol or drug abuse patient.[facility] HospitalIn the event this information is protected by the Federal Confidentiality of Alcohol and Drug Abuse Patient Records regulations: The Federal rules restrict any use of the information to criminally investigate or prosecute any alcohol or drug abuse patient.[facility] HospitalIn the event this information is protected by the Federal Confidentiality of Alcohol and Drug Abuse Patient Records regulations: The Federal rules restrict any use of the information to criminally investigate or prosecute any alcohol or drug abuse patient.[facility] HospitalIn the event this information is protected by the Federal Confidentiality of Alcohol and Drug Abuse Patient Records regulations: The Federal rules restrict any use of the information to criminally investigate or prosecute any alcohol or drug abuse patient.[facility] HospitalIn the event this information is protected by the Federal Confidentiality of Alcohol and Drug Abuse Patient Records regulations: The Federal rules restrict any use of the information to criminally investigate or prosecute any alcohol or drug abuse patient.[facility] HospitalIn the event this information is protected by the Federal Confidentiality of Alcohol and Drug Abuse Patient Records regulations: The Federal rules restrict any use of the information to criminally investigate or prosecute any alcohol or drug abuse patient.[facility] HospitalIn the event this information is protected by the Federal Confidentiality of Alcohol and Drug Abuse Patient Records regulations: The Federal rules restrict any use of the information to criminally investigate or prosecute any alcohol or drug abuse patient.[facility] HospitalIn the event this information is protected by the Federal Confidentiality of Alcohol and Drug Abuse Patient Records regulations: The Federal rules restrict any use of the information to criminally investigate or prosecute any alcohol or drug abuse patient.[facility] HospitalIn the event this information is protected by the Federal Confidentiality of Alcohol and Drug Abuse Patient Records regulations: The Federal rules restrict any use of the information to criminally investigate or prosecute any alcohol or drug abuse patient.[facility] HospitalIn the event this information is protected by the Federal Confidentiality of Alcohol and Drug Abuse Patient Records regulations: The Federal rules restrict any use of the information to criminally investigate or prosecute any alcohol or drug abuse patient.[facility] HospitalIn the event this information is protected by the Federal Confidentiality of Alcohol and Drug Abuse Patient Records regulations: The Federal rules restrict any use of the information to criminally investigate or prosecute any alcohol or drug abuse patient.[facility] HospitalIn the event this information is protected by the Federal Confidentiality of Alcohol and Drug Abuse Patient Records regulations: The Federal rules restrict any use of the information to criminally investigate or prosecute any alcohol or drug abuse patient.[facility] HospitalIn the event this information is protected by the Federal Confidentiality of Alcohol and Drug Abuse Patient Records regulations: The Federal rules restrict any use of the information to criminally investigate or prosecute any alcohol or drug abuse patient.[facility] HospitalIn the event this information is protected by the Federal Confidentiality of Alcohol and Drug Abuse Patient Records regulations: The Federal rules restrict any use of the information to criminally investigate or prosecute any alcohol or drug abuse patient.[facility] HospitalIn the event this information is protected by the Federal Confidentiality of Alcohol and Drug Abuse Patient Records regulations: The Federal rules restrict any use of the information to criminally investigate or prosecute any alcohol or drug abuse patient.[facility] HospitalIn the event this information is protected by the Federal Confidentiality of Alcohol and Drug Abuse Patient Records regulations: The Federal rules restrict any use of the information to criminally investigate or prosecute any alcohol or drug abuse patient.[facility] HospitalIn the event this information is protected by the Federal Confidentiality of Alcohol and Drug Abuse Patient Records regulations: The Federal rules restrict any use of the information to criminally investigate or prosecute any alcohol or drug abuse patient.[facility] HospitalIn the event this information is protected by the Federal Confidentiality of Alcohol and Drug Abuse Patient Records regulations: The Federal rules restrict any use of the information to criminally investigate or prosecute any alcohol or drug abuse patient.[facility] HospitalIn the event this information is protected by the Federal Confidentiality of Alcohol and Drug Abuse Patient Records regulations: The Federal rules restrict any use of the information to criminally investigate or prosecute any alcohol or drug abuse patient.[facility] HospitalIn the event this information is protected by the Federal Confidentiality of Alcohol and Drug Abuse Patient Records regulations: The Federal rules restrict any use of the information to criminally investigate or prosecute any alcohol or drug abuse patient.[facility] HospitalIn the event this information is protected by the Federal Confidentiality of Alcohol and Drug Abuse Patient Records regulations: The Federal rules restrict any use of the information to criminally investigate or prosecute any alcohol or drug abuse patient.[facility] HospitalIn the event this information is protected by the Federal Confidentiality of Alcohol and Drug Abuse Patient Records regulations: The Federal rules restrict any use of the information to criminally investigate or prosecute any alcohol or drug abuse patient.[facility] HospitalIn the event this information is protected by the Federal Confidentiality of Alcohol and Drug Abuse Patient Records regulations: The Federal rules restrict any use of the information to criminally investigate or prosecute any alcohol or drug abuse patient.[facility] HospitalIn the event this information is protected by the Federal Confidentiality of Alcohol and Drug Abuse Patient Records regulations: The Federal rules restrict any use of the information to criminally investigate or prosecute any alcohol or drug abuse patient.[facility] HospitalIn the event this information is protected by the Federal Confidentiality of Alcohol and Drug Abuse Patient Records regulations: The Federal rules restrict any use of the information to criminally investigate or prosecute any alcohol or drug abuse patient.[facility] HospitalIn the event this information is protected by the Federal Confidentiality of Alcohol and Drug Abuse Patient Records regulations: The Federal rules restrict any use of the information to criminally investigate or prosecute any alcohol or drug abuse patient.[facility] HospitalIn the event this information is protected by the Federal Confidentiality of Alcohol and Drug Abuse Patient Records regulations: The Federal rules restrict any use of the information to criminally investigate or prosecute any alcohol or drug abuse patient.[facility] HospitalIn the event this information is protected by the Federal Confidentiality of Alcohol and Drug Abuse Patient Records regulations: The Federal rules restrict any use of the information to criminally investigate or prosecute any alcohol or drug abuse patient.[facility] Goals (unrecognized section and content) Goals may be documented in a n alternate section FOR RECORDS PERTAINING TO PATIENTS WHO ARE [...] BE BASED ON THE PRIMARY CLINICAL RECORDS. [facility] [employer] [facility] provides no warranty or guarantee of the accuracy or completeness of information in this document.
--- NOTE | 2025-02-14 18:33 | CT_ITS ---
The [address] [address] Patient Name: HUY KOVACS MRN: [id number] date: 1995 Sex: F Assigned Patient Location: ER Current Patient Location: ER Accession/Order Number: [id number] Exam Date: 02/14/2025 19:53 Report Date: 02/14/2025 20:04 At the request of: ABDIRASHID PEREIRA NP Procedure: CT thoracic spine wo con CT THORACIC SPINE WITHOUT CONTRAST TECHNIQUE: The CT exam was performed using one or more the following dose reduction techniques: Automated exposure control, adjustment of the MA and/or Kv according to patient size, or use of the iterative reconstruction technique. HISTORY: Fell. Back pain. COMPARISON: None POST SURGERY CHANGES: None BONY ALIGNMENT: Adequate BONY SPINAL CANAL: Patent central bony canal FRACTURE: None BONY LESIONS: None SOFT TISSUES: Unremarkable DEGENERATIVE CHANGES: None The visualized lung meyer are unremarkable. The visualized aorta is unremarkable. No obstructive uropathy identified. CT/CT thoracic spine wo con IMPRESSION: NO ACUTE BONY PROCESS. Impression dictated by: Kehinde Floyd M.D. 02/14/2025 8:04 PM Dictation Location: [employer] Electronically authenticated by: [id number] Y Date: 02/14/2025 20:04
--- NOTE | 2025-02-14 18:33 | CT_ITS ---
The [address] [address] Patient Name: HUY KOVACS MRN: [id number] date: 1995 Sex: F Assigned Patient Location: ER Current Patient Location: Accession/Order Number: [id number] Exam Date: 02/14/2025 20:04 Report Date: 02/14/2025 20:08 At the request of: ABDIRASHID PEREIRA NP Procedure: CT lumbar spine wo con CT LUMBAR SPINE WITHOUT CONTRAST TECHNIQUE: Axial acquisition of the lumbar spine obtained with the sagittal and coronal reconstructed imaging.The CT exam was performed using one or more the following dose reduction techniques: Automated exposure control, adjustment of the MA and/or Kv according to patient size, or use of the iterative reconstruction technique. HISTORY: Fell. Back pain. COMPARISON: None FINDINGS: The last fully segmented vertebral pair is operationally defined as L5/S1. POST SURGERY CHANGES: T11-L3 posterior fixation hardware. L1 corpectomy change. Retropulsed fracture fragment at the L1 level. Posterior decompression at this level. BONY ALIGNMENT: Adequate bony alignment identified. SPINAL CANAL:Patent bony central canal LUMBAR FRACTURE: No acute lumbar spine fracture. BONY LESIONS: None KIDNEYS: No hydronephrosis is identified. AORTA: No aortic aneurysm is seen. Lower thoracic level: Unremarkable minor degenerative changes of the lumbar spine. Assessment of disc herniation limited with CT examination. No obvious disc herniation seen with CT exam. CT/CT lumbar spine wo con IMPRESSION:Postsurgical changes as described above for L1 compression fracture. No new fractures identified. No hardware failure. Impression dictated by: Kehinde Floyd M.D. 02/14/2025 8:08 PM Dictation Location: [employer] Electronically authenticated by: [id number] Y Date: 02/14/2025 20:08
[2025-02-14 19:54] VITALS: BP 132/97; PULSE 87; O2SAT 95
--- NOTE | 2025-02-14 19:56 | ED.GENADUL1 ---
HPI HPI - General Adult General Chief complaint: Back Pain/Injury Stated complaint: FELL YESTERDAY TRANSFERING FROM WHEELCHAIR TO COMM Time Seen by Provider: 02/14/25 18:25 Source: patient Mode of arrival: Wheelchair History of Present Illness HPI narrative: The patient is a 29-year-old female who presents to the emergency department today for evaluation concerns for an injury to her back. 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 She mention she had multiple injuries to her thoracic and lumbar spine subsequently requiring surgical repair with hardware placement. She mentions yesterday she was attempting to transfer from her chair to the commode when a transfer board slipped causing her to fall. She states she landed on her lower back. She denies hitting her head or any LOC. No saddle anesthesia or concerns with bowel/bladder function. She denies any new paresthesias, weakness, loss of movement to her extremities. She has any headaches, neck pain, chest pain, shortness of breath. No abdominal pain or nausea/vomiting. Related Data Home Medications ?Medication ?Instructions ?Recorded ?Confirmed baclofen 20 mg tablet 20 mg PO TID 02/14/25 02/14/25 buprenorphine 8 mg-naloxone 2 mg 1.5 film sublingual DAILY 02/14/25 02/14/25 sublingual film (Suboxone) clonidine HCl 0.2 mg tablet 0.2 mg PO BID 02/14/25 02/14/25 duloxetine 60 mg capsule,delayed 60 mg PO DAILY 02/14/25 02/14/25 release ibuprofen 800 mg tablet 800 mg PO Q8H 02/14/25 02/14/25 lamotrigine 150 mg tablet 225 mg PO DAILY 02/14/25 02/14/25 oxybutynin chloride 10 mg 10 mg PO DAILY 02/14/25 02/14/25 tablet,extended release 24 hr pregabalin 300 mg capsule 300 mg PO BID 02/14/25 02/14/25 quetiapine 200 mg tablet 200 mg PO QPM 02/14/25 02/14/25 quetiapine 25 mg tablet 25 mg PO BID PRN panic attack(s) 02/14/25 02/14/25 sertraline 100 mg tablet 200 mg PO DAILY 02/14/25 02/14/25 zonisamide 100 mg capsule 200 mg PO QPM 02/14/25 02/14/25 Allergies Allergy/AdvReac Type Severity Reaction Status Date / Time adhesive tape Allergy Severe Blister Verified 03/03/24 18:15 hydroxyzine Allergy Severe Seizure Verified 03/03/24 18:14 Review of Systems ROS Status of ROS 10 or more systems reviewed and unremarkable except as noted in history and below [facility] Medical History (Updated 02/14/25 @ 20:31 by Usama Mabry NP) Osteoporosis ?M81.0 - Age-related osteoporosis without current pathological fracture (ICD-10) Incomplete spinal cord injury Social History Little interest or pleasure in doing things: not at all Feeling down, depressed, or hopeless: not at all Exam Narrative Exam Narrative: Constituational: Awake/ alert, no apparent distress, well hydrated HENMT: normocephalic, external ears normal, moist oral mucous membranes and oropharynx normal Eyes: EOMI and conjunctivae normal Neck: ROM intact Chest: inspection of chest normal Respiratory: Normal respiratory effort, clear to auscultation bilaterally Cardio: regular rate and regular rhythm GI: soft to palpation and non-tender Back: nontender MSK: + Mild/moderate discomfort to lower thoracic/lumbar region of back without vertebral tenderness, ROM intact otherwise throughout the back and extremities, +NVI Skin: no rashes or petechiae Neuro: + Gross motor movement intact to B/L LE with moderate/generalized weakness to B/L LE. Moves upper extremities with normal and equal strength Psych: mental status grossly normal Constitutional Vital Signs, click to edit/add: Last Vital Signs Temp 98.5 F 02/14/25 18:09 Pulse 87 02/14/25 19:54 Resp 18 02/14/25 18:09 BP 132/97 H 02/14/25 19:54 Pulse Ox 95 02/14/25 19:54 O2 Del Method Room Air 02/14/25 18:09 Course Vital Signs Vital signs: Vital Signs Temperature 98.5 F 02/14/25 18:09 Pulse Rate 95 H 02/14/25 18:09 Respiratory Rate 18 02/14/25 18:09 Blood Pressure 135/89 02/14/25 18:09 Pulse Oximetry 95 02/14/25 18:09 Oxygen Delivery Method Room Air 02/14/25 18:09 Temperature 98.5 F 02/14/25 18:09 Pulse Rate 87 08/15/25 19:54 Respiratory Rate 18 02/14/25 18:09 Blood Pressure 132/97 H 02/14/25 19:54 Pulse Oximetry 95 02/14/25 19:54 Oxygen Delivery Method Room Air 02/14/25 18:09 Medical Decision Making MDM Narrative Medical decision making narrative: Patient is a nontoxic-appearing 29-year-old female with significant history for spinal cord injury that is a functional paraplegic who presented to the ER today for evaluation concerns for acute on chronic pain to her back following a mechanical fall at which time she fell during a transfer from her wheelchair to the commode. Initial examination and vital signs stable. Patient reports neurovascularly she is at her baseline in regards to movement and sensation until he presented to the ER due to concerns for pain to the back including the thoracic and lumbar region following the fall with concerns for any damage to previously placed hardware from [address] imaging of thoracic and lumbar spine without critical findings and showed stable placement of hardware. Historically patient did take ibuprofen prior to the ER. She appears comfortable on serial examination. Discussed the above findings with the patient including recommendations for supportive care of acute on chronic back pain, possible lumbar and thoracic strain. Advised on follow-up with patient's primary care provider for reevaluation. Discussed signs and symptoms of any worsening condition and when to consider reevaluation by the emergency department. Patient verbalized an understanding of this and is agreeable with the plan to be discharged home. Medical Records Medical records reviewed: Yes I reviewed the patient's medical records Imaging Data CT thoracic and lumbar spine: Attestation: I have reviewed the pertinent imaging results. Radiologist's impression: ITS Impressions Lumbar Spine CT 02/14/25 18:33 IMPRESSION:Postsurgical changes as described above for L1 compression fracture. No new fractures identified. No hardware failure. Impression dictated by: Kehinde Floyd M.D. 02/14/2025 8:08 PM Dictation Location: [employer] Electronically authenticated by: [id number] Y Date: 02/14/2025 20:[address] 02/14/25 18:33 IMPRESSION: NO ACUTE BONY PROCESS. Impression dictated by: Kehinde Floyd M.D. 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 Patient Disposition: Home, Self-Care Mode of Transportation: Private Vehicle Prescriptions / Home Meds: No Action baclofen 20 mg tablet 20 mg PO TID buprenorphine-naloxone [Suboxone] 8-2 mg film 1.5 film sublingual DAILY clonidine HCl 0.2 mg tablet 0.2 mg PO BID duloxetine 60 mg capsule,delayed release(DR/EC) 60 mg PO DAILY ibuprofen 800 mg tablet 800 mg PO Q8H lamotrigine 150 mg tablet 225 mg PO DAILY oxybutynin chloride 10 mg tablet extended release 24hr 10 mg PO DAILY pregabalin 300 mg capsule 300 mg PO BID sertraline 100 mg tablet 200 mg PO DAILY zonisamide 100 mg capsule 200 mg PO QPM quetiapine 200 mg tablet 200 mg PO QPM quetiapine 25 mg tablet 25 mg PO BID PRN (Reason: panic attack(s)) Print Language: Cymraes Instructions: Back Pain (ED) Additional Instructions: continue your current medication regimen for pain in addition to taking Tylenol and ibuprofen. It is also important to ice any sore areas. The CT imaging showed no changes to the hardware or findings of new injuries to the mid and lower back. Please follow-up with your primary care provider and/your neurosurgeon for reevaluation as discussed. Return to the ER with any concerns at any time.
== END 2025-02-14 20:42 | disposition home or self-care (01) ==
PROVIDERS: Emergency Provider Emergency Medicine; PCP Nurse Practitioner
DX: M54.6 Pain in thoracic spine (principal); M54.50 Low back pain, unspecified; G89.21 Chronic pain due to trauma; W05.0XXA Fall from non-moving wheelchair, initial encounter
CPT/HCPCS: 72128; 72131; 99284